=== PATIENT | female | born 1955 | race Caucasian/White ===

== ENCOUNTER 2016-10-18 14:01 | Outpatient (RCR) | payer MEDICAID ==
[2016-09-05 09:48] LABS: BASOPHILS # (AUTO) 0.1 10^3/uL (0.0-0.1); BASOPHILS % (AUTO) 2 % (0-10); EOSINOPHILS # (AUTO) 0.2 10^3/uL (0.0-0.3); EOSINOPHILS % (AUTO) 3 % (0-10); LYMPHOCYTES # (AUTO) 1.9 X 10^3 (1.0-4.0); LYMPHOCYTES % (AUTO) 26 % (12-44); MEAN CORPUSCULAR HEMOGLOBIN 29 PG (25-34); MEAN CORPUSCULAR HGB CONC 33 G/DL (32-36); MEAN CORPUSCULAR VOLUME 86 FL (80-99); MEAN PLATELET VOLUME 11.8 FL (7.4-10.4); MONOCYTES # (AUTO) 0.6 X 10^3 (0.0-1.0); MONOCYTES % (AUTO) 9 % (0-12); NEUTROPHILS # (AUTO) 4.5 X 10^3 (1.8-7.8); NEUTROPHILS % (AUTO) 61 % (42-75); PLATELET COUNT 248 10^3/uL (130-400); RED BLOOD COUNT 3.72 10^6/uL (4.35-5.85); RED CELL DISTRIBUTION WIDTH 14.2 % (10.0-14.5); WHITE BLOOD COUNT 7.4 10^3/uL (4.3-11.0)
[2016-09-05 10:14] LABS: ALBUMIN 3.9 G/DL (3.2-4.5); BILIRUBIN,TOTAL 0.2 MG/DL (0.1-1.0); CALCIUM 9.9 MG/DL (8.5-10.1); CREATININE SERUM 1.66 MG/DL (0.60-1.30); POTASSIUM 4.3 MMOL/L (3.6-5.0); TOTAL PROTEIN 7.1 G/DL (6.4-8.2)
[~2016-10-18 14:01] MED LIST: ALBU2.5V4 IH; AMLO5TAB2 PO; ASPI-587 PO; ATOR10TA66 PO; AZIT250T PO; CEFD300C3 PO; CHOL200014 PO; CIPR500T4 PO; FENO134C2 PO; FOLI0.4T2 PO; GABA-488 PO; HYDR-34 PO; HYDR12.570 PO; IBUP800T26 PO; INSU100I14 SQ; INSU100V5 SQ; LETR2.5T5 PO; LISI20TA PO; MAGN400T39 PO; MELO-198 PO; METF-380 PO; MTP25TSR PO; Omega 3 Polyunsat Fatty Acids PO; PNT40TEC PO; POTA-51 PO; TRAM50TA2 PO; Ticagrelor PO
[2016-10-18 15:24] LABS: BASOPHILS # (AUTO) 0.1 10^3/uL (0.0-0.1); BASOPHILS % (AUTO) 1 % (0-10); EOSINOPHILS # (AUTO) 0.2 10^3/uL (0.0-0.3); EOSINOPHILS % (AUTO) 3 % (0-10); LYMPHOCYTES # (AUTO) 1.4 X 10^3 (1.0-4.0); LYMPHOCYTES % (AUTO) 19 % (12-44); MEAN CORPUSCULAR HEMOGLOBIN 28 PG (25-34); MEAN CORPUSCULAR HGB CONC 32 G/DL (32-36); MEAN CORPUSCULAR VOLUME 87 FL (80-99); MEAN PLATELET VOLUME 11.5 FL (7.4-10.4); MONOCYTES # (AUTO) 0.5 X 10^3 (0.0-1.0); MONOCYTES % (AUTO) 6 % (0-12); NEUTROPHILS # (AUTO) 4.9 X 10^3 (1.8-7.8); NEUTROPHILS % (AUTO) 70 % (42-75); PLATELET COUNT 272 10^3/uL (130-400); RED BLOOD COUNT 3.83 10^6/uL (4.35-5.85); RED CELL DISTRIBUTION WIDTH 13.9 % (10.0-14.5)
[2016-10-18 16:35] LABS: ALBUMIN 3.9 G/DL (3.2-4.5); BILIRUBIN,TOTAL 0.2 MG/DL (0.1-1.0); CALCIUM 9.5 MG/DL (8.5-10.1); CREATININE SERUM 1.42 MG/DL (0.60-1.30); POTASSIUM 4.6 MMOL/L (3.6-5.0)
[2016-10-18 16:55] LABS: THYROID STIMULATING HORMONE 0.84 UIU/ML (0.35-4.94)
== END 2016-10-23 | disposition home or self-care (01) ==
LOC: ONC 14:01
PROVIDERS: ATTEND Internal Medicine Hematology & Oncology
DX: Z51.11 Encounter for antineoplastic chemotherapy (principal); C50.912 Malignant neoplasm of unspecified site of left female breast; I25.10 Atherosclerotic heart disease of native coronary artery without angina pectoris; D64.9 Anemia, unspecified; I10 Essential (primary) hypertension; E78.5 Hyperlipidemia, unspecified; E78.1 Pure hyperglyceridemia; E11.9 Type 2 diabetes mellitus without complications; I25.2 Old myocardial infarction; Z17.0 Estrogen receptor positive status [ER+]; Z90.12 Acquired absence of left breast and nipple; Z72.0 Tobacco use; Z79.4 Long term (current) use of insulin; Z79.899 Other long term (current) drug therapy; Z45.2 Encounter for adjustment and management of vascular access device
CPT/HCPCS: 36415; 36591; 80053; 82306; 84443; 85025; 86300; 96523; 99213

== ENCOUNTER → 2016-10-27 | Outpatient (CLI) | payer MEDICAID ==
--- NOTE | 2016-10-27 12:42 | Diagnostic Imaging Report ---
INDICATION: Lymphadenopathy, history of left mastectomy and breast cancer. FINDINGS: Neck: Noncontrast-enhanced soft tissue neck CT is performed. No priors. The parotid, the submandibular and thyroid appeared unremarkable. While sensitivity for demonstrating adenopathy is limited by the absence of contrast, no abnormal soft tissue along the cervical lymph node chains were found no pathologically numerous, morphologically distorted nor abnormally enlarged cervical lymph nodes found. There is no fluid collection. The nasopharynx, oropharynx and hypopharynx unremarkable. No airway embarrassment. There is vbns-qr-jzucmlyt calcified carotid atherosclerotic plaque. The skull base intact. There is slight membrane thickening in the right maxillary sinus floor. There are no mastoid effusions. Supraclavicular fossae appeared unremarkable. The posterior triangles unremarkable. Mild spondylosis and facet arthrosis chronic and degenerative. No suspicious or acute cervical bony abnormality. CT chest: The chest and abdominal portion of the study compared 04/13/2016. Left apical pleural-parenchymal scarring peripherally is a chronic finding. No acute infiltrate superimposed found. No suspicious nodule or dominant lung mass. There is no hilar or mediastinal lymphadenopathy. There is some mild thickening circumferentially and smoothly of the chen of the mid to distal third of the thoracic esophagus, chronic. No discrete mass. No pleural or pericardial effusion. No acute or destructive osseous pathology. A central venous catheter in the SVC. There is coronary arterial atherosclerotic disease chronic. There has been near complete resolution of lateral chest wall postoperative seroma now only less than 1 cm thick, previously greater than 2 cm thickness. Abdomen: The unopacified liver shows hepatic steatosis without appreciable mass. Gallbladder absent. No pathological bile duct dilatation. The unremarkable spleen is within normal limits of size. The adrenals negative. The pancreas unremarkable. There is no hydronephrosis. Infrarenal atherosclerotic aortic ectasia measuring 2.9 cm stable. No ascites. No lymphadenopathy. No mesenteric mass. The osseous structures nonacute. IMPRESSION: 1. Neck: No mass or pathological appearing lymph nodes. 2. Chest: Left apical pleural-parenchymal scarring with no adenopathy, mass, effusion or acute finding. 3. Abdomen: No adenopathy, mass, ascites or inflammatory process. Dictated by: Dictated on workstation # [id number]
--- NOTE | 2016-10-27 14:49 | Diagnostic Imaging Report ---
INDICATION: Breast cancer. COMPARISON: Bone scan of 04/13/[address] chest, abdomen, and pelvis of 10/27/2016. Tc-99m MDP 25.6 mCi IV. FINDINGS: The skeleton was imaged in anterior and posterior views with the moving gamma camera. There is normal distribution of tracer throughout the skeleton. No abnormal focal area of increased or decreased tracer accumulation is identified. Unchanged periarticular radiopharmaceutical uptake about the left knee, which is degenerative in nature. IMPRESSION: 1. No osseous metastasis. Dictated by: Dictated on workstation # [id number]
== END ==
LOC: CARD 09:12
PROVIDERS: ATTEND Nurse Practitioner Adult Health
DX: C50.112 Malignant neoplasm of central portion of left female breast (principal); R59.0 Localized enlarged lymph nodes
CPT/HCPCS: 70490; 71250; 74150; 78306

== ENCOUNTER 2017-02-15 08:58 | Outpatient (RCR) | payer MEDICAID ==
[2016-11-23 09:27] LABS: BASOPHILS # (AUTO) 0.1 10^3/uL (0.0-0.1); BASOPHILS % (AUTO) 1 % (0-10); EOSINOPHILS # (AUTO) 0.2 10^3/uL (0.0-0.3); EOSINOPHILS % (AUTO) 3 % (0-10); LYMPHOCYTES % (AUTO) 22 % (12-44); MEAN CORPUSCULAR HEMOGLOBIN 28 PG (25-34); MEAN CORPUSCULAR HGB CONC 33 G/DL (32-36); MEAN CORPUSCULAR VOLUME 85 FL (80-99); MEAN PLATELET VOLUME 11.9 FL (7.4-10.4); MONOCYTES # (AUTO) 0.8 X 10^3 (0.0-1.0); MONOCYTES % (AUTO) 8 % (0-12); NEUTROPHILS # (AUTO) 6.2 X 10^3 (1.8-7.8); NEUTROPHILS % (AUTO) 66 % (42-75); PLATELET COUNT 271 10^3/uL (130-400); RED BLOOD COUNT 4.07 10^6/uL (4.35-5.85); RED CELL DISTRIBUTION WIDTH 13.6 % (10.0-14.5); WHITE BLOOD COUNT 9.4 10^3/uL (4.3-11.0)
[2016-11-23 09:47] LABS: ALBUMIN 4.1 G/DL (3.2-4.5); BILIRUBIN,TOTAL 0.2 MG/DL (0.1-1.0); CALCIUM 9.8 MG/DL (8.5-10.1); CREATININE SERUM 1.74 MG/DL (0.60-1.30); POTASSIUM 4.5 MMOL/L (3.6-5.0); TOTAL PROTEIN 7.5 G/DL (6.4-8.2)
[2017-02-15 09:17] LABS: BASOPHILS # (AUTO) 0.1 10^3/uL (0.0-0.1); BASOPHILS % (AUTO) 1 % (0-10); EOSINOPHILS # (AUTO) 0.2 10^3/uL (0.0-0.3); EOSINOPHILS % (AUTO) 2 % (0-10); LYMPHOCYTES # (AUTO) 2.1 X 10^3 (1.0-4.0); LYMPHOCYTES % (AUTO) 24 % (12-44); MEAN CORPUSCULAR HEMOGLOBIN 28 PG (25-34); MEAN CORPUSCULAR HGB CONC 33 G/DL (32-36); MEAN CORPUSCULAR VOLUME 86 FL (80-99); MEAN PLATELET VOLUME 12.3 FL (7.4-10.4); MONOCYTES # (AUTO) 0.5 X 10^3 (0.0-1.0); MONOCYTES % (AUTO) 6 % (0-12); NEUTROPHILS # (AUTO) 5.6 X 10^3 (1.8-7.8); NEUTROPHILS % (AUTO) 66 % (42-75); PLATELET COUNT 300 10^3/uL (130-400); RED BLOOD COUNT 4.07 10^6/uL (4.35-5.85); WHITE BLOOD COUNT 8.5 10^3/uL (4.3-11.0)
[2017-02-15 09:38] LABS: ALBUMIN 4.1 G/DL (3.2-4.5); BILIRUBIN,TOTAL 0.3 MG/DL (0.1-1.0); CALCIUM 10.3 MG/DL (8.5-10.1); CREATININE SERUM 1.55 MG/DL (0.60-1.30); POTASSIUM 4.1 MMOL/L (3.6-5.0); TOTAL PROTEIN 7.5 G/DL (6.4-8.2)
== END 2017-02-21 | disposition home or self-care (01) ==
LOC: ONC 08:58
PROVIDERS: ATTEND Internal Medicine Hematology & Oncology
DX: C50.112 Malignant neoplasm of central portion of left female breast (principal); D64.9 Anemia, unspecified; E55.9 Vitamin D deficiency, unspecified; I25.10 Atherosclerotic heart disease of native coronary artery without angina pectoris; I10 Essential (primary) hypertension; E78.5 Hyperlipidemia, unspecified; E78.1 Pure hyperglyceridemia; E11.9 Type 2 diabetes mellitus without complications; I25.2 Old myocardial infarction; Z17.0 Estrogen receptor positive status [ER+]; Z90.12 Acquired absence of left breast and nipple; Z72.0 Tobacco use; Z79.4 Long term (current) use of insulin; Z79.899 Other long term (current) drug therapy
CPT/HCPCS: 36591; 80053; 82306; 85025; 96523; 99213

== ENCOUNTER → 2017-03-29 | Outpatient (CLI) | payer MEDICAID ==
--- NOTE | 2017-03-29 19:54 | Diagnostic Imaging Report ---
Right breast screening mammogram. INDICATION: Screening. No current symptoms. The patient has had left mastectomy in 2015. The current study was also evaluated with a Computer Aided Detection (CAD) system. FINDINGS: The right breast parenchyma is of scattered fibroglandular density composition. There is no focal mass, architectural distortion, or suspicious cluster of calcifications. Allowing for technique and positional differences, no suspicious change is seen. IMPRESSION: No significant change. ACR BI-RADS Category 2: Benign findings. Result letter will be mailed to the patient. Note: At least 10% of breast cancer is not imaged by mammography. Dictated by: Dictated on workstation # [id number]
== END ==
LOC: RAD 09:05
PROVIDERS: ATTEND Nurse Practitioner Adult Health
DX: Z12.31 Encounter for screening mammogram for malignant neoplasm of breast (principal); C50.112 Malignant neoplasm of central portion of left female breast

== ENCOUNTER 2017-05-17 10:56 | Outpatient (RCR) | payer MEDICAID ==
[2017-05-10 09:48] LABS: BASOPHILS # (AUTO) 0.1 10^3/uL (0.0-0.1); BASOPHILS % (AUTO) 2 % (0-10); EOSINOPHILS # (AUTO) 0.2 10^3/uL (0.0-0.3); EOSINOPHILS % (AUTO) 3 % (0-10); LYMPHOCYTES # (AUTO) 1.7 X 10^3 (1.0-4.0); LYMPHOCYTES % (AUTO) 23 % (12-44); MEAN CORPUSCULAR HEMOGLOBIN 28 PG (25-34); MEAN CORPUSCULAR HGB CONC 32 G/DL (32-36); MEAN CORPUSCULAR VOLUME 85 FL (80-99); MEAN PLATELET VOLUME 12.2 FL (7.4-10.4); MONOCYTES # (AUTO) 0.5 X 10^3 (0.0-1.0); MONOCYTES % (AUTO) 6 % (0-12); NEUTROPHILS # (AUTO) 4.8 X 10^3 (1.8-7.8); NEUTROPHILS % (AUTO) 66 % (42-75); PLATELET COUNT 258 10^3/uL (130-400); RED BLOOD COUNT 3.85 10^6/uL (4.35-5.85); RED CELL DISTRIBUTION WIDTH 14.8 % (10.0-14.5); WHITE BLOOD COUNT 7.3 10^3/uL (4.3-11.0)
[2017-05-10 10:26] LABS: ALBUMIN 3.8 GM/DL (3.2-4.5); BILIRUBIN,TOTAL 0.2 MG/DL (0.1-1.0); CALCIUM 10.1 MG/DL (8.5-10.1); CREATININE SERUM 1.44 MG/DL (0.60-1.30); POTASSIUM 4.6 MMOL/L (3.6-5.0); TOTAL PROTEIN 7.4 GM/DL (6.4-8.2)
== END 2017-05-23 | disposition home or self-care (01) ==
LOC: ONC 10:56
PROVIDERS: ATTEND Internal Medicine Hematology & Oncology
DX: C50.112 Malignant neoplasm of central portion of left female breast (principal); D64.9 Anemia, unspecified; E55.9 Vitamin D deficiency, unspecified; I25.10 Atherosclerotic heart disease of native coronary artery without angina pectoris; I10 Essential (primary) hypertension; E78.5 Hyperlipidemia, unspecified; E78.1 Pure hyperglyceridemia; E11.9 Type 2 diabetes mellitus without complications; I25.2 Old myocardial infarction; Z17.0 Estrogen receptor positive status [ER+]; Z90.12 Acquired absence of left breast and nipple; Z72.0 Tobacco use; Z79.4 Long term (current) use of insulin; Z79.899 Other long term (current) drug therapy
CPT/HCPCS: 80053; 82306; 85025; 96523; 99213

== ENCOUNTER 2017-06-21 09:19 | Outpatient (RCR) | payer MEDICAID | END 2017-07-21 | disposition home or self-care (01) | LOC: ONC 09:19 | PROVIDERS: ATTEND Internal Medicine Hematology & Oncology | DX: C50.112 Malignant neoplasm of central portion of left female breast (principal); D64.9 Anemia, unspecified; E55.9 Vitamin D deficiency, unspecified; I25.10 Atherosclerotic heart disease of native coronary artery without angina pectoris; I10 Essential (primary) hypertension; E78.5 Hyperlipidemia, unspecified; E78.1 Pure hyperglyceridemia; E11.9 Type 2 diabetes mellitus without complications; I25.2 Old myocardial infarction; Z17.0 Estrogen receptor positive status [ER+]; Z90.12 Acquired absence of left breast and nipple; Z72.0 Tobacco use; Z79.4 Long term (current) use of insulin; Z79.899 Other long term (current) drug therapy; Z45.2 Encounter for adjustment and management of vascular access device | CPT/HCPCS: 96523 ==

== ENCOUNTER → 2017-08-02 | Outpatient (CLI) | payer MEDICAID ==
[2017-08-02 09:35] LABS: ALBUMIN 3.9 GM/DL (3.2-4.5); BILIRUBIN,DIRECT 0.1 MG/DL (0.0-0.3); BILIRUBIN,INDIRECT 0.1 MG/DL; BILIRUBIN,TOTAL 0.2 MG/DL (0.1-1.0); TOTAL PROTEIN 7.5 GM/DL (6.4-8.2)
== END ==
LOC: LAB 09:00
PROVIDERS: ATTEND Internal Medicine Cardiovascular Disease
DX: I25.10 Atherosclerotic heart disease of native coronary artery without angina pectoris (principal); E78.2 Mixed hyperlipidemia; I12.9 Hypertensive chronic kidney disease with stage 1 through stage 4 chronic kidney disease, or unspecified chronic kidney disease; N18.3 Chronic kidney disease, stage 3 (moderate)
CPT/HCPCS: 36415; 80061; 80076

== ENCOUNTER 2017-09-03 17:01 | Emergency (ER) | payer MEDICAID ==
[~2017-09-03] VITALS: Ht 172.7 cm; Wt 97.1 kg
[2017-09-03 17:57] LABS: BASOPHILS # (AUTO) 0.1 10^3/uL (0.0-0.1); BASOPHILS % (AUTO) 1 % (0-10); EOSINOPHILS # (AUTO) 0.1 10^3/uL (0.0-0.3); EOSINOPHILS % (AUTO) 1 % (0-10); LYMPHOCYTES # (AUTO) 1.1 X 10^3 (1.0-4.0); LYMPHOCYTES % (AUTO) 12 % (12-44); MEAN CORPUSCULAR HEMOGLOBIN 28 PG (25-34); MEAN CORPUSCULAR HGB CONC 33 G/DL (32-36); MEAN CORPUSCULAR VOLUME 85 FL (80-99); MEAN PLATELET VOLUME 12.6 FL (7.4-10.4); MONOCYTES # (AUTO) 0.4 X 10^3 (0.0-1.0); MONOCYTES % (AUTO) 4 % (0-12); NEUTROPHILS # (AUTO) 7.4 X 10^3 (1.8-7.8); NEUTROPHILS % (AUTO) 82 % (42-75); PLATELET COUNT 273 10^3/uL (130-400); RED BLOOD COUNT 4.06 10^6/uL (4.35-5.85); WHITE BLOOD COUNT 9.1 10^3/uL (4.3-11.0)
[2017-09-03] MEDS ORDERED: SCOPOLAMINE 1.5 MG (TRANSDERM-SCOP) PATCH TD ONE (18:00)
[2017-09-03 18:01] LABS: PROTHROMBIN TIME PATIENT 12.9 SEC (12.2-14.7)
--- NOTE | 2017-09-03 18:04 | ED General ---
General Chief Complaint: Dizziness/Syncope Stated Complaint: DIZZINESS Nursing Triage Note: Pt reports dizziness that started last week. Pt reports dizziness improved over the weekend but started again this morning. Pt reports dizziness is worse when standing up and moving around. Nursing Sepsis Screen: No Definite Risk Source of Information: Patient History of Present Illness Time Seen by Provider: 17:50 Initial Comments PT ARRIVES VIA POV FROM HOME C/O DIZZINESS OFF AND ON SINCE LAST WEEK WAS BETTER OVER THE WEEKEND, THEN WOKE UP AT [facility] TODAY AND WAS DIZZY AGAIN STATES SHE WAS IN KITCHEN AND SUDDENLY BROKE OUT IN A SWEAT, FELT LIKE SHE WAS GOING TO COLLAPSE AND WAS DIZZY AND REALLY SHAKEY--WAS ABLE TO GET BACK TO BED ( USES A SEATED WALKER ) AND HAS BEEN IN BED FOR THE REST OF THE DAY SYMPTOMS WORSE WITH MOVEMENTS NO NAUSEA HAS HAD SLIGHTLY BLURRY VISION WITH IT--"COULDN'T PLAY COMPUTER GAMES TODAY LIKE I NORMALLY DO" NO CHEST PAIN NO SHORTNESS OF BREATH NO PALPITATIONS NO FEVER NO COUGH/URI SYMPTOMS NO URINARY SYMPTOMS NO PAIN ANYWHERE HAD A SLIGHT HEADACHE THAT MOVED AROUND LAST WEEK--THOSE SYMPTOMS RESOLVED WITH OTC SINUS MEDICATIONS AND HAVE NOT RETURNED NO PARESTHESIAS OR MOTOR DEFICITS--( PT DOES HAVE PERIPHERAL NEUROPATHY IN FEET , BUT IS UNCHANGED) NO HISTORY OF SIMILAR PT STATES BLOOD GLUCOSE WAS 159 AT NOON PT ATE [facility] AND [employer] AND [employer] FOR LUNCH HAS NOT CHECKED BLOOD SUGAR AGAIN PCP: TAMICA, SHILPA FUENTES BOW MACHINE OPERATOR: DR. EMMANUEL ONCOLOGIST: DR. TANG Allergies and Home Medications Allergies Coded Allergies: codeine (Unverified Allergy, Unknown, 09/03/17) Home Medications Amlodipine Besylate 5 Mg Tablet, 5 MG PO DAILY, (Reported) Atorvastatin Calcium 10 Mg Tablet, 10 MG PO DAILY, (Reported) Cholecalciferol (Vitamin D3) 2,000 Unit Tablet, 2,000 UNIT PO DAILY, (Reported) Fenofibrate,Micronized 134 Mg Capsule, 134 MG PO HS, #30 Ref 4 Prescribed by: NEEMA EMMANUEL on 05/10/15 0849 Folic Acid 0.4 Mg Tablet, 0.4 MG PO DAILY, (Reported) Gabapentin 300 Mg Capsule, 300 MG PO BID, (Reported) Hydrochlorothiazide 12.5 Mg Cap, 25 MG PO DAILY, (Reported) Insulin Aspart 100 Unit/1 Ml Insuln.pen, 0 SQ AC, (Reported) PER SLIDING SCALE "B" Insulin Detemir 100 U/Ml Vial, 23 UNITS SQ BID, (Reported) Letrozole 2.5 Mg Tablet, 2.5 MG PO DAILY, (Reported) Lisinopril 20 Mg Tablet, 40 MG PO DAILY, (Reported) Magnesium Oxide 400 Mg Tablet, 400 MG PO BID, (Reported) Meclizine HCl 25 Mg Tablet, 25-50 MG PO Q6H, #30 Prescribed by: OSMAN LINK on 09/03/172105 Metoprolol Succinate 25 Mg Tab, 25 MG PO DAILY, #30 Ref 4 Prescribed by: NEEMA EMMANUEL on 05/10/15 0849 Pantoprazole Sod 40 Mg Tab, 40 MG PO DAILY@0700, #30 Ref 4 Prescribed by: NEEMA EMMANUEL on 05/10/15 0849 Scopolamine 1 Each Patch.td72, 1 EACH TD Q72 HOURS, #3 Prescribed by: OSMAN LINK on 09/03/172105 Tramadol HCl 50 Mg Tablet, 50 MG PO BID, (Reported) [[place] 3 Polyunsat Fatty Acids] 1,000 MG CAP, 1,000 MG PO BID WITH MEALS, #100 Ref 4 Prescribed by: NEEMA EMMANUEL on 05/10/15 0849 Constitutional: see HPI, diaphoresis, dizziness, No fever, weakness EENTM: see HPI, blurred vision, No hearing loss, No ear pain, No nose congestion Respiratory: no symptoms reported Cardiovascular: no symptoms reported Gastrointestinal: no symptoms reported Genitourinary: no symptoms reported Musculoskeletal: no symptoms reported Skin: no symptoms reported Psychiatric/Neurological: See HPI, Denies Headache, Pre-Existing Deficit, Denies Seizure, Denies Weakness Hematologic/Lymphatic: No Symptoms Reported Immunological/Allergic: no symptoms reported Past Xxepbon-Jktkeq-Yfilsz Hx Patient Social History Alcohol Use: Denies Use Recreational Drug Use: No Smoking Status: Former Smoker Former Smoker, Quit: Feb 01, 2015 Recent Foreign Travel: No Contact w/Someone Who Travel: No Recent Infectious Disease Expo: No Recent Hopitalizations: No Immunizations Up To Date Tetanus Booster (TDap): More than 5yrs Seasonal Allergies Seasonal Allergies: No Surgeries History of Surgeries: Yes (LEFT BREAST MASTECTOMY, 6 LYMPH NODE REMOVED;BILAT CARPAL TUNNEL RELEASE; L ULNAR NERVE; PORT RIGHT CHEST; CARDIAC CATH--STENT X 1 04/2015; COLONOSCOPY) Surgeries: Breast, Cardiac, Coronary Stent, Gallbladder, Orthopedic, Tubal Ligation Respiratory History of Respiratory Disorde: No Cardiovascular History of Cardiac Disorders: Yes (NONSTEMI) Cardiac Disorders: Coronary Artery Disease, Heart Attack, High Cholesterol, Hypertension Neurological History of Neurological Disord: Yes (PERIPHERAL NEUROPATHY-FEET) Neurological Disorders: Neuropathy Reproductive System Hx Reproductive Disorders: No Sexually Transmitted Disease: No HIV/AIDS: No Female Reproductive Disorders: Denies Genitourinary History of Genitourinary Disor: Yes (CHRONIC RENAL INSUFFICIENCY) Genitourinary Disorders: Bladder Infection, Kidney Stones, Renal Failure Gastrointestinal History of Gastrointestinal Di: Yes (S/P JENNIFER) Gastrointestinal Disorders: Gall Bladder Disease Musculoskeletal History of Musculoskeletal Dis: Yes Musculoskeletal Disorders: Arthritis, Chronic Back Pain Endocrine History of Endocrine Disorders: Yes Endocrine Disorders: Diabetes, Insulin dep HEENT History of HEENT Disorders: No Loss of Vision: Bilateral Hearing Impairment: Denies Cancer History of Cancer: Yes (LEFT BREAST CA, LYMPH NODES) Cancer: Breast Did You Recieve Any Treatments: Yes (LEFT MASTECTOMY WITH LYMPH NODE REMOVAL; CHEMO AND RADIATION--DX 2014, TX COMPLETED 2015) Type of Tx Receive: Chemotherapy, Radiation, Surgical Intervention Psychosocial History of Psychiatric Problem: No Integumentary History of Skin or Integumenta: No Blood Transfusions History of Blood Disorders: Yes (ANEMIA) Adverse Reaction to a Blood Tr: No (N/A) Family Medical History Significant Family History: No Pertinent Family Hx Family Medial History: Asthma G8 SISTER Cardiovascular disease 19 FATHER Diabetes mellitus G8 SISTER FH: breast cancer SISTER FH: leukemia 19 MOTHER, , Age:52 Psychosocial problem G8 SISTER No Family History of: AIDS Abdominal aortic aneurysm Osorio's disease Alcoholism Alzheimer's disease Arthritis Cancer of mouth Colon cancer Completed stroke Dementia Drug abuse Kidney disease Myocardial infarction Parkinson's disease Prostate cancer Respiratory disorder Seizure disorder Severe allergy Thyroid disease Tuberculosis Physical Exam Vital Signs Vital Sign - Last 12Hours 09/03/17 17:15 Pulse 97 Resp 18 B/P (MAP) 140/63 Pulse Ox 97 O2 Delivery Room Air Capillary Refill : Less Than 3 Seconds General Appearance: No Apparent Distress, WD/WN, Obese HEENT: PERRL/EOMI Neck: Full Range of Motion, Normal Inspection, Non Tender, Supple, No Carotid Bruit Respiratory: Normal Breath Sounds, No Accessory Muscle Use, No Respiratory Distress Cardiovascular: Regular Rate, Rhythm, No Edema, No JVD, No Murmur, Normal Peripheral Pulses Gastrointestinal: Normal Bowel Sounds, No Organomegaly, No Pulsatile Mass, Non Tender, Soft Extremity: Normal Capillary Refill, Normal Inspection, Normal Range of Motion, Non Tender, No Calf Tenderness, No Pedal Edema Neurologic/Psychiatric: Alert, Oriented x3, No Motor/Sensory Deficits, Normal Mood/Affect, car scrubber II-XII Norm as Tested Reflexes: 2+ Bicep (R), 2+ Bicep (L), 2+ Knee (R), 2+ Knee (L) Skin: Normal Color, Warm/Dry Progress/Results/Core Measures Results/Orders Lab Results Laboratory Tests Test 09/03/17 17:30 09/03/17 17:45 09/03/17 18:15 09/03/17 20:57 Range/Units White Blood Count 9.1 4.3-11.0 10^3/uL Red Blood Count 4.06 L 4.35-5.85 10^6/uL Hemoglobin 11.5 11.5-16.0 G/DL Hematocrit 35 35-52 % Mean Corpuscular Volume 85 80-99 FL Mean Corpuscular Hemoglobin 28 25-34 PG Mean Corpuscular Hemoglobin Concent 33 32-36 G/DL Red Cell Distribution Width 14.0 10.0-14.5 % Platelet Count 273 130-400 10^3/uL Mean Platelet Volume 12.6 H 7.4-10.4 FL Neutrophils (%) (Auto) 82 H 42-75 % Lymphocytes (%) (Auto) 12 12-44 % Monocytes (%) (Auto) 4 0-12 % Eosinophils (%) (Auto) 1 0-10 % Basophils (%) (Auto) 1 0-10 % Neutrophils # (Auto) 7.4 1.8-7.8 X 10^3 Lymphocytes # (Auto) 1.1 1.0-4.0 X 10^3 Monocytes # (Auto) 0.4 0.0-1.0 X 10^3 Eosinophils # (Auto) 0.1 0.0-0.3 10^3/uL Basophils # (Auto) 0.1 0.0-0.1 10^3/uL Prothrombin Time 12.9 12.2-14.7 SEC INR Comment 1.0 0.8-1.4 Activated Partial Thromboplast Time 24 24-35 SEC Sodium Level 133 L 135-145 MMOL/L Potassium Level 4.6 3.6-5.0 MMOL/L Chloride Level 104 98-107 MMOL/L Carbon Dioxide Level 20 L 21-32 MMOL/L Anion Gap 9 5-14 MMOL/L Blood Urea Nitrogen 27 H 7-18 MG/DL Creatinine 1.49 H 0.60-1.30 MG/DL Estimat Glomerular Filtration Rate 35 BUN/Creatinine Ratio 18 Glucose Level 305 H 70-105 MG/DL Calcium Level 9.8 8.5-10.1 MG/DL Magnesium Level 1.2 L 1.8-2.4 MG/DL Total Bilirubin 0.2 0.1-1.0 MG/DL Aspartate Amino Transf (AST/SGOT) 20 5-34 U/L Alanine Aminotransferase (ALT/SGPT) 20 0-55 U/L Alkaline Phosphatase 40 40-136 U/L Total Protein 7.4 6.4-8.2 GM/DL Albumin 4.0 3.2-4.5 GM/DL Troponin I < 0.30 <0.30 NG/ML Urine Color YELLOW Urine Clarity CLEAR Urine pH 6.5 5-9 Urine Specific [place] 1.010 L 1.016-1.022 Urine Protein NEGATIVE NEGATIVE Urine Glucose (UA) 4+ H NEGATIVE Urine Ketones NEGATIVE NEGATIVE Urine Nitrite NEGATIVE NEGATIVE Urine Bilirubin NEGATIVE NEGATIVE Urine Urobilinogen NORMAL NORMAL MG/DL Urine Leukocyte Esterase 1+ H NEGATIVE Urine RBC (Auto) NEGATIVE NEGATIVE Urine RBC NONE /HPF Urine WBC NONE /HPF Urine Squamous Epithelial Cells 0-2 /HPF Urine Crystals NONE /LPF Urine Bacteria 0-2 /HPF Urine Casts NONE /LPF Urine Mucus NEGATIVE /LPF Urine Culture Indicated NO Glucometer 183 H 70-110 MG/DL My Orders Orders - FARIBA,OSMAN K DO Saline Lock/Iv-Start (09/03/17 17:49) Orthostatic Vital Signs (09/03/17 17:49) Ekg Tracing (09/03/17 17:49) Monitor-Rhythm Ecg Trace Only (09/03/17 17:49) Cbc With Automated Diff (09/03/17 17:49) Comprehensive Metabolic Panel (09/03/17 17:49) Magnesium (09/03/17 17:49) Protime With Inr (09/03/17 17:49) Partial Thromboplastin Time (09/03/17 17:49) Ua Culture If Indicated (09/03/17 17:49) Ct Head Wo (09/03/17 17:49) Scopolamine Patch (Transderm-Scop Patch) (09/03/17 18:00) Troponin I (09/03/17 17:58) Saline Lock/Iv-Start (09/03/17 18:11) Ns Iv 1000 Ml (Sodium Chloride 0.9%) (09/03/17 18:11) Insulin (Regular) Human (Humulin R (Per (09/03/17 18:15) Magnesium 1 Gm/100 Ml Ivpb (Magnesium Rgossman (09/03/17 18:15) Accucheck Stat ONCE (09/03/17 19:11) Medications Given in ED Current Medications Medications Dose Ordered Sig/Josefina Route Start Time Stop Time Status Last Admin Dose Admin Insulin Human Regular 20 unit ONCE ONCE SC 09/03/17 18:15 09/03/17 18:16 DC 09/03/17 18:56 20 UNIT Scopolamine 1.5 mg ONCE ONCE TD 09/03/17 18:00 09/03/17 18:01 DC 09/03/17 18:55 1.5 MG Sodium Chloride 1,000 ml @ 0 mls/hr Q0M ONCE IV 09/03/17 18:11 09/03/17 18:12 DC 09/03/17 18:55 0 MLS/HR Vital Signs/I&O Vital Sign - Last 12Hours 09/03/17 09/03/17 17:15 21:18 Pulse 97 97 Resp 18 18 B/P (MAP) 140/63 Pulse Ox 97 97 O2 Delivery Room Air Blood Pressure Mean: 88 Progress Note : Progress Note ACCUCHECK 183 PRIOR TO DISMISSAL DIZZINESS IMPROVED AT DISMISSAL,PT FEELS COMFORTABLE GOING HOME ECG Initial ECG Impression Time: 19:35 Initial ECG Rate: 63 Initial ECG Rhythm: Normal Sinus Initial ECG Comparisson: No Previous ECG Available Diagnostic Imaging Comments CT HEAD--NO ACUTE PROCESS, CHRONIC SMALL VESSEL ISCHEMIC CHANGES--PER RADIOLOGIST REPORT @ 0254 Reviewed: Reviewed by Me Departure Impression Impression: Primary Impression: Vertigo Additional Impressions: Uncontrolled diabetes mellitus Hypomagnesemia Chronic renal insufficiency MILD ELECTROLYTE IMBALANCE Disposition: 01 HOME, SELF-CARE Condition: Improved Departure-Patient Inst. Referrals: JUAN BELLA DO (PCP) Primary Care Physician ENRRIQUE FUENTES (Family) Primary Care Physician Patient Instructions: DIABETES, Low Carbohydrate Diet, Low Magnesium Level (DC) , Vertigo (a Type of Dizziness) (DC) Add. Discharge Instructions: DOUBLE YOUR DOSE OF MAGNESIUM CHECK YOUR BLOOD GLUCOSE 3 TIMES A DAY AND KEEP DIARY HIGH PROTEIN, LOW CARB DIET FOLLOW UP WITH YOUR DR THIS WEEK FOR FURTHER CARE All discharge instructions reviewed with patient and/or family. Voiced understanding. Scripts Meclizine HCl (Meclizine HCl) 25 Mg Tablet 25-50 MG PO Q6H for Dizziness, #30 TAB Prov: OSMAN LINK DO 09/03/17 Scopolamine (Transderm-Scop) 1 Each Patch.td72 1 EACH TD Q72 HOURS for Dizziness, #3 PATCH Prov: OSMAN LINK DO 09/03/17 OSMAN LINK DO Sep 03, 2017 18:04
[2017-09-03 18:08] LABS: BILIRUBIN,TOTAL 0.2 MG/DL (0.1-1.0); CALCIUM 9.8 MG/DL (8.5-10.1); CREATININE SERUM 1.49 MG/DL (0.60-1.30); MAGNESIUM 1.2 MG/DL (1.8-2.4); POTASSIUM 4.6 MMOL/L (3.6-5.0); TOTAL PROTEIN 7.4 GM/DL (6.4-8.2)
[2017-09-03] MEDS ORDERED: NS IV 1000 ML 1,000 ML IV ONE (18:11)
--- OUTSIDE RECORDS SUMMARY | 2017-09-03 18:14 | XMS REPORT ---
Author Author ENRRIQUE FUENTES Organization [employer] Address Unknown Phone Unavailable Care Team Providers Care Juvenile Officer Name Role Phone ENRRIQUE FUENTES CP Unavailable Allergies No Known Allergies Problems Problem Type Condition Code Onset Dates Condition Status Problem Hypertension 401.9 Active Problem DM w/o complication type II, uncontrolled 250.02 Active Medications Medication Code System Code Instructions Start Date End Date Status Dosage Tramadol HCl [facility] [address]-05 50 MG Orally 2 times a day prn Jul 21, 2015 1 tablet as needed Results No Known Results Summary Purpose [employer] Submission
--- OUTSIDE RECORDS SUMMARY | 2017-09-03 18:14 | XMS REPORT ---
Author Author SONDRA RIVERA [employer] Address Unknown Phone Unavailable Care Team Providers Care Custom Shoe Designer And Maker Name Role Phone SONDRA RIVERA CP Unavailable Allergies, Adverse Reactions, Alerts Substance Reaction Event Type N.K.D.A. Info Not Available Non Drug Allergy Problems Problem Type Condition Code Onset Dates Condition Status Problem Hyperkalemia E87.5 Active Assessment Dental examination Z01.20 Active Problem Type 2 diabetes mellitus with hyperglycemia E11.65 Active Problem custodial current use of insulin Z79.4 Active Problem Dental caries on smooth surface penetrating into pulp K02.63 Active Problem Neuropathy G62.9 Active Problem Chronic kidney disease, stage 4 (severe) N18.4 Active Problem Essential hypertension I10 Active Problem Malignant neoplasm of upper-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 C50.412 Active Medications Medication Code System Code Instructions Start Date End Date Status Dosage Folic Acid [facility] [address]-80 400 MCG Orally Once a day 1 tablet Ondansetron HCl [facility] [address]-98 8 MG Orally every 8 hrs 1 tablet Fish Oil [facility] [address]-75 1000 MG Orally Twice a day 1 capsule Magnesium Oxide [facility] [address]-70 400 MG Orally 2 times a day 1 capsule Tramadol HCl [facility] [address]-84 50 mg Orally 2 times a day prn must last 4 weeks- Jul 21, 2015 1 tablet as needed NovoLog Flexpen [facility] [address]-45 100 UNIT/ML Subcutaneous 3 times daily with meals, per sliding scale as directed Meloxicam [facility] 83892875419 7.5 MG TAKE ONE TABLET BY MOUTH ONCE DAILY Vitamin D3 [facility] [address]-34 2000 UNIT Orally not defined Brilinta [facility] 13203872188 90 MG TAKE ONE TABLET BY MOUTH TWICE DAILY Atorvastatin Calcium [facility] [address]-64 10 MG Orally Once a day 1 tablet Pantoprazole Sodium [facility] 38169408339 40 MG TAKE ONE TABLET BY MOUTH ONCE DAILY - [facility] [address]-11 81 MG Orally Once a day 1 tablet Ticagrelor [facility] [address]-07 90 MG Orally Twice a day 1 tablet Lisinopril [facility] [address]-74 40 MG Orally Once a day 1 tablet Amlodipine Besylate [facility] [address]-13 5 MG Orally Once a day 1 tablet Lofibra [facility] 66954553560 134 MG TAKE ONE CAPSULE BY MOUTH ONCE DAILY WITH A MEAL Levemir FlexTouch [facility] [address]-83 100 UNIT/ML Subcutaneous twice a day 14 units Letrozole [facility] [address]-56 2.5 MG Orally Once a day 1 tablet NovoLog Flexpen [facility] [address]-12 100 UNIT/ML Subcutaneous 3 times daily with meals, per sliding scale as directed Ibuprofen [facility] [address]-92 200 MG Orally every 6 hrs 1 tablet as needed Hydrochlorothiazide [facility] [address]-66 25 MG Orally Once a day 1 tablet Gabapentin [facility] [address]-88 300 MG Orally 2 times a day 1 capsule Metoprolol Succinate ER [facility] [address]-76 25 MG TAKE ONE TABLET BY MOUTH ONCE DAILY Norvasc [facility] [address]-63 not defined Clindamycin HCl [facility] [address]-66 300 MG Orally every 8 hrs March 18, 2016 March 25, 2016 1 capsule Procedures Procedure Coding System Code Date INTRAORL-PERIAPICAL 1 FILM 17844 CPT-4 D0220 March 21, 2016 INTRAORL-PERIAPICAL EA ADD FILM CPT-4 D0230 March 21, 2016 LTD ORAL EVALUATION - PROBLEM FOCUS CPT-4 D0140 March 21, 2016 PANORAMIC FILM SEE ALSO CODE 21796 CPT-4 D0330 March 21, 2016 Vital Signs Date/Time: March 21, 2016 Blood Pressure Diastolic 84 mmHg Blood Pressure Systolic 163 mmHg Results No Known Results Summary Purpose [employer] Submission
--- OUTSIDE RECORDS SUMMARY | 2017-09-03 18:14 | XMS REPORT ---
Author Author ENRRIQUE FUENTES [facility] [employer] Address Unknown Phone Unavailable Care Team Providers Care Wire Wheeler Name Role Phone ENRRIQUE FUENTES CP Unavailable Allergies No Known Allergies Problems Problem Type Condition Code Onset Dates Condition Status Problem Type 2 diabetes mellitus with hyperglycemia E11.65 Active Problem medical terminologist current use of insulin Z79.4 Active Problem Dental caries on smooth surface penetrating into pulp K02.63 Active Problem Neuropathy G62.9 Active Assessment Hyperkalemia E87.5 Active Problem Essential hypertension I10 Active Problem Malignant neoplasm of upper-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 C50.412 Active Medications Medication Code System Code Instructions Start Date End Date Status Dosage Lasix [facility] [address]-48 40 mg Orally Today and Tomorrow February 23, 2016 1 tablet Results No Known Results Summary Purpose [employer] Submission
[2017-09-03] MEDS ORDERED: inSUlin (REGULAR) HUMAN 1 UNIT/0.01 ML (CHARGE PER UNIT) SC ONE (18:15)
[2017-09-03] MEDS ORDERED: MAGNESIUM 1 GM/100 ML IVPB 100 ML IV SCH (18:15)
--- OUTSIDE RECORDS SUMMARY | 2017-09-03 18:15 | XMS REPORT ---
Author Author ENRRIQUE FUENTES [facility] eClinicalWorks Address Unknown Phone Unavailable Care Team Providers Care Welding Foreman Name Role Phone ENRRIQUE FUENTES CP Unavailable Allergies, Adverse Reactions, Alerts Substance Reaction Event Type N.K.D.A. Info Not Available Non Drug Allergy Problems Problem Type Condition Code Onset Dates Condition Status Assessment Type 2 diabetes mellitus with hyperglycemia E11.65 Active Problem Chronic kidney disease, stage 4 (severe) N18.4 Active Problem Hyperkalemia E87.5 Active Problem Dental caries on smooth surface penetrating into pulp K02.63 Active Problem Type 2 diabetes mellitus with hyperglycemia E11.65 Active Problem Foot ulcer, left, limited to breakdown of skin L97.521 Active Problem Malignant neoplasm of upper-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 C50.412 Active Problem Neuropathy G62.9 Active Problem medical social worker current use of insulin Z79.4 Active Problem Essential hypertension I10 Active Assessment Neuropathy G62.9 Active Assessment Essential hypertension I10 Active Assessment medical social worker current use of insulin Z79.4 Active Assessment Malignant neoplasm of upper-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 C50.412 Active Assessment Chronic kidney disease, stage 4 (severe) N18.4 Active Medications Medication Code System Code Instructions Start Date End Date Status Dosage Pantoprazole Sodium [facility] 24021903255 40 MG TAKE ONE TABLET BY MOUTH ONCE DAILY Tramadol HCl [facility] [address]-08 50 mg Orally 2 times a day prn must last 4 weeks- APPT NEEDED FOR FUTHER REFILLS Jul 21, 2015 1 tablet as needed FreeStyle Lite Test [facility] 24639257541 - TEST BLOOD SUGAR FOUR TIMES A DAY BEFORE MEALS AND AT BEDTIME Levemir FlexTouch [facility] [address]-53 100 UNIT/ML Subcutaneous twice a day 23 units Folic Acid [facility] [address]-32 400 MCG Orally Once a day 1 tablet Fish Oil [facility] [address]-86 1000 MG Orally Twice a day 1 capsule Amlodipine Besylate [facility] [address]-56 5 MG Orally Once a day 1 tablet Acetaminophen [facility] [address]-54 500 MG Orally every 6 hrs 2 capsules as needed Gabapentin [facility] [address]-35 300 MG TAKE ONE CAPSULE BY MOUTH TWICE DAILY Magnesium Oxide [facility] [address]-46 400 MG Orally 2 times a day 1 capsule Lisinopril [facility] 74905950913 40 MG TAKE ONE TABLET BY MOUTH ONCE DAILY Aspir-81 [facility] [address]-39 81 MG Orally Once a day 1 tablet Vitamin D3 [facility] [address]-22 2000 UNIT Orally not defined Atorvastatin Calcium [facility] [address]-65 10 MG Orally Once a day 1 tablet Metoprolol Succinate ER [facility] [address]-93 25 MG TAKE ONE TABLET BY MOUTH ONCE DAILY Clickfine Pen [place] [facility] 23386935729 31 gauge USE WITH LEVEMIR Norvasc [facility] [address]-03 5 MG Orally Once a day 1 tablet NovoLog Flexpen [facility] [address]-22 100 UNIT/ML Subcutaneous 3 times daily with meals, per sliding scale as directed Letrozole [facility] [address]-22 2.5 MG Orally Once a day 1 tablet Hydrochlorothiazide [facility] 86611937083 25 MG TAKE ONE TABLET BY MOUTH ONCE DAILY Lofibra [facility] 69584231868 134 MG TAKE ONE CAPSULE BY MOUTH ONCE DAILY WITH A MEAL Pen [place] 1/2" [facility] [address]-49 29G X 12MM subcutaneously 5 times per day as directed Procedures Procedure Coding System Code Date Office Visit, Est Pt., Level 4 CPT-4 99352 Aug 03, 2016 GLYCATED HEMOGLOBIN TEST CPT-4 34555 Aug 03, 2016 MICROALBUMIN, SEMIQUANT CPT-4 67283 Aug 03, 2016 Vital Signs Date/Time: Aug 03, 2016 Cardiac Monitoring Heart Rate 70 bpm Weight 212 lbs Height 68 in BMI 32.23 Index Blood Pressure Diastolic 60 mmHg Blood Pressure Systolic 100 mmHg Results Name Result Date Reference Range Unit Abnormality Flag MICROALBUMIN, URINE (IN HOUSE) ----A:C (IN HOUSE) <30 [id number] ----CRE 200 [id number] ----ALB 30 [id number] ----Color dark yellow [id number] ----MICROALBUMIN normal 20160803 ----Lot # [id number] ----Exp date [id number] ----Clarity clear [id number] A1C (IN HOUSE) ----Exp date [id number] ----Previous A1c 7.5 20160807 ----Lot [id number] ----A1C IN HOUSE 8.7 [id number] 4.3 - 5.6 % Summary Purpose eClinicalWorks Submission
--- OUTSIDE RECORDS SUMMARY | 2017-09-03 18:15 | XMS REPORT ---
Author Author ENRRIQUE FUENTES Organization eClinicalWorks Address Unknown Phone Unavailable Care Team Providers Care Secondary Art Teacher Name Role Phone ENRRIQUE FUENTES CP Unavailable Allergies No Known Allergies Problems Problem Type Condition Code Onset Dates Condition Status Assessment Chronic kidney disease, stage 4 (severe) N18.4 Active Problem Chronic kidney disease, stage 4 (severe) N18.4 Active Problem Hyperkalemia E87.5 Active Problem Dental caries on smooth surface penetrating into pulp K02.63 Active Problem Type 2 diabetes mellitus with hyperglycemia E11.65 Active Problem Foot ulcer, left, limited to breakdown of skin L97.521 Active Problem Malignant neoplasm of upper-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 C50.412 Active Problem Neuropathy G62.9 Active Problem residential current use of insulin Z79.4 Active Problem Essential hypertension I10 Active Medications No Known Medications Results No Known Results Summary Purpose eClinicalWorks Submission
--- OUTSIDE RECORDS SUMMARY | 2017-09-03 18:15 | XMS REPORT ---
Author Author ENRRIQUE FUENTES [facility] Address [address] [place] [address] Care Team Providers Care Sanitation Truck Cleaner Name Role Phone ENRRIQUE FUENTES Unavailable PROBLEMS Type Condition ICD9-CM Code [id number] Code Onset Dates Condition Status SNOMED Code Problem Malignant neoplasm of upper-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 C50.412 Active 822327853 Problem Foot ulcer, left, limited to breakdown of skin L97.521 Active 18858926 Problem Dental caries on smooth surface penetrating into pulp K02.63 Active 182431490 Problem 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 Active 367043743 Problem Arthritis of right hip M16.11 Active 4993599304437004 Problem Hyperlipidemia LDL goal <70 E78.5 Active 05895591 Problem Chronic pain syndrome G89.4 Active 386011299 Problem Pain in right knee M25.561 Active 06042547 Problem GERD without esophagitis K21.9 Active 945362951 Problem Essential hypertension I10 Active 01022921 Problem Neuropathy G62.9 Active 991172865 Problem Hyperkalemia E87.5 Active 07994983 Problem halfway current use of insulin Z79.4 Active 306722206 Problem Chronic kidney disease, stage 4 (severe) N18.4 Active 516790234 Problem Type 2 diabetes mellitus with hyperglycemia E11.65 Active 551959385435690 ALLERGIES No Information SOCIAL HISTORY Never Assessed PLAN OF CARE VITAL SIGNS MEDICATIONS Unknown Medications RESULTS No Results PROCEDURES No Known procedures IMMUNIZATIONS No Known Immunizations MEDICAL (GENERAL) HISTORY Type Description Date Medical History type II diabetes Medical History hypertension Medical History breast cancer- stage 3. Medical History Received chemotherapy every 3 weeks at [facility] under Dr Billingsley - Chemotherapy completed/now taking letrozole x10 years. Medical History CAD Medical History Hyperlipidemia Medical History Pulmonary HTN with PAP of 40 per Card 2016 Surgical History left mastectomy 01/2015 Surgical History lymph node removal x6 01/2015 Surgical History cholecystectomy Surgical History tubal ligation Surgical History carotid endarterectomy Surgical History port a cath placement 02/2015 Surgical History DENTAL--PLEASE VERIFY TEETH NUMBERS THAT NEED EXTRACTED DENTAL Surgical History Colonoscopy 4 tubular adenomas due 2018 Hospitalization History stent placement 04/2015
--- NOTE | 2017-09-03 18:16 | Diagnostic Imaging Report ---
PROCEDURE: CT head without contrast. TECHNIQUE: Multiple contiguous axial images were obtained through the brain without the use of intravenous contrast. INDICATION: Dizziness, blurred vision. CORRELATION STUDY: 04/25/2015. FINDINGS: Ventricles and sulci appearing age appropriate. A definitive area of decreased attenuation to suggest edema does not appear to be present. No midline shift or mass effect. There are a few scattered areas of decreased attenuation present which may be reflective of small vessel ischemic disease but are nonspecific. Findings are again slightly more pronounced involving the left frontal lobe. Findings do appear to be perhaps slightly more prominent from prior imaging. No intracranial hemorrhage. Basilar cisterns are maintained. Bony calvarium appearing unremarkable. Paranasal sinuses and mastoid air cells appearing generally clear. IMPRESSION: Negative for acute intracranial abnormality. Scattered areas of decreased attenuation have slightly progressed from prior imaging. Features favor probable changes of small vessel ischemic disease. Other etiologies not excluded. If further assessment is desired, MRI would be recommended. Dictated by: Dictated on workstation # [id number]
--- OUTSIDE RECORDS SUMMARY | 2017-09-03 18:16 | XMS REPORT ---
Author Author ENRRIQUE FUENTES Organization eClinicalWorks Address Unknown Phone Unavailable Care Team Providers Care Finnish Rubber Name Role Phone ENRRIQUE FUENTES CP Unavailable [...] C50.412 Active Problem Neuropathy G62.9 Active Problem 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 Active Problem Essential hypertension I10 Active Medications Medication Code System Code Instructions Start Date End Date Status Dosage FreeStyle Lite Test [facility] 37[address]-20848 - In Vitro 4 times a day before meals and at bedtime. April 28, 2016 Test Blood Sugar Results No Known Results Summary Purpose eClinicalWorks Submission
--- OUTSIDE RECORDS SUMMARY | 2017-09-03 18:16 | XMS REPORT ---
Author Author ANTONI MALIN [facility] Address [address] [place] [address] Care Team Providers Care Wire Coater Name Role Phone ANTONI MALIN Unavailable PROBLEMS Type Condition ICD9-CM Code HAS90-XT Code Onset Dates Condition Status SNOMED Code Problem Hyperkalemia E87.5 Active 98395126 Problem Neuropathy G62.9 Active 887782901 Problem Chronic kidney disease, stage 4 (severe) N18.4 Active 510823234 Assessment Chronic kidney disease, stage 4 (severe) N18.4 Sep, Active 717107669 Problem Foot ulcer, left, limited to breakdown of skin L97.521 Active 66239642 Problem Dental caries on smooth surface penetrating into pulp K02.63 Active 649888443 Problem Essential hypertension I10 Active 88717912 Problem Malignant neoplasm of upper-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 C50.412 Active 632900528 Problem Type 2 diabetes mellitus with hyperglycemia E11.65 Active 901116524926390 Problem snf current use of insulin Z79.4 Active 029337921 ALLERGIES Unknown Allergies SOCIAL HISTORY No smoking Hx information available PLAN OF CARE Activity Details Pending Test URINE PROTEIN TO CREATININE RATIO Pending Test UA W/ MICROSCOPY Pending Test CBC Pending Test RENAL PROFILE ,Reason: VITAL SIGNS MEDICATIONS Unknown Medications RESULTS Name Result Date Reference Range URINE PROTEIN TO CREATININE RATIO 2016-09-26 Creatinine, Urine 122.4 Not Estab. Protein,Total,Urine 15.4 Not Estab. Protein/Creat Ratio 126 0-200 UA W/ MICROSCOPY 2016-09-26 Specific [place] 1.024 1.005-1.030 pH 5.5 5.0-7.5 Urine-Color Yellow Yellow Appearance Clear Clear WBC Esterase 1+ Negative Protein Negative Negative/Trace Glucose Trace Negative Ketones Negative Negative Occult Blood Negative Negative Bilirubin Negative Negative Urobilinogen,Semi-Qn 0.2 0.2-1.0 Nitrite, Urine Negative Negative Microscopic Examination See below: WBC 11-30 0 - 5 RBC 0-2 0 - 2 Epithelial Cells (non renal) 0-10 0 - 10 Epithelial Cells (renal) Casts Cast Type Crystals Crystal Type Mucus Threads Present Not Estab. Bacteria Few None seen/Few Yeast Trichomonas Comment CBC 2016-09-26 WBC 10.1 3.4-10.8 RBC 4.14 3.77-5.28 Hemoglobin 11.5 11.1-15.9 Hematocrit 35.9 34.0-46.6 MCV 87 79-97 MCH 27.8 26.6-33.0 MCHC 32.0 31.5-35.7 RDW 14.7 12.3-15.4 Platelets 312 150-379 Neutrophils 62 Lymphs 27 Monocytes 6 Eos 3 Basos 1 Neutrophils (Absolute) 6.3 1.4-7.0 Lymphs (Absolute) 2.7 0.7-3.1 Monocytes(Absolute) 0.6 0.1-0.9 Eos (Absolute) 0.3 0.0-0.4 Baso (Absolute) 0.1 0.0-0.2 Immature Granulocytes 1 Immature Grans (Abs) 0.1 0.0-0.1 RENAL PROFILE 2016-09-26 Glucose, Serum 196 65-99 BUN 27 8-27 Creatinine, Serum 1.39 0.57-1.00 eGFR If NonAfricn Am 41 >59 eGFR If Africn Am 47 >59 BUN/Creatinine Ratio 19 11-26 Sodium, Serum 140 136-144 Potassium, Serum 4.4 3.5-5.2 Chloride, Serum 99 97-106 Carbon Dioxide, Total 23 18-29 Calcium, Serum 10.5 8.7-10.3 Phosphorus, Serum 3.6 2.5-4.5 Albumin, Serum 4.3 3.6-4.8 PROCEDURES Procedure Date Ordered Related Diagnosis Body [facility] VENIPUNCT, ROUTINE* Sep 26, 2016 IMMUNIZATIONS No Known Immunizations
--- OUTSIDE RECORDS SUMMARY | 2017-09-03 18:16 | XMS REPORT ---
Author Author ROB NUNEZ [facility] Address Unknown Care Team Providers Care Cook Frozen Dessert Name Role Phone ROB NUNEZ Unavailable PROBLEMS Type Condition ICD9-CM Code VTO79-MY Code Onset Dates Condition Status SNOMED Code Problem Malignant neoplasm of upper-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 C50.412 Active 354869186 Problem Foot ulcer, left, limited to breakdown of skin L97.521 Active 62953974 Problem Dental caries on smooth surface penetrating into pulp K02.63 Active 383387127 Problem 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 Active 189809245 Problem Arthritis of right hip M16.11 Active 0317859773360215 Problem Hyperlipidemia LDL goal <70 E78.5 Active 57245940 Problem Chronic pain syndrome G89.4 Active 818500426 Problem Pain in right knee M25.561 Active 70321350 Problem GERD without esophagitis K21.9 Active 637872439 Problem Essential hypertension I10 Active 19866719 Problem Neuropathy G62.9 Active 173185432 Problem Hyperkalemia E87.5 Active 92530458 Problem shelter current use of insulin Z79.4 Active 860140071 Problem Chronic kidney disease, stage 4 (severe) N18.4 Active 953608546 Problem Type 2 diabetes mellitus with hyperglycemia E11.65 Active 416631159737252 ALLERGIES Substance Reaction Event Type Date Status Codeine Sulfate Unknown Drug Allergy Nov, Active SOCIAL HISTORY Never Assessed PLAN OF CARE Activity Details Follow Up prn Reason:Multi TE's - 2 hours VITAL SIGNS Blood pressure systolic 134 mmHg 2016-12-06 Blood pressure diastolic 65 mmHg 2016-12-06 MEDICATIONS Medication Instructions Dosage Frequency Start Date End Date Duration Status Fish Oil 1000 MG Orally Twice a day 1 capsule 12h Active Vitamin D3 2000 UNIT Active Hydrochlorothiazide 25 MG TAKE ONE TABLET BY MOUTH ONCE DAILY 30 Active NovoLog Flexpen 100 UNIT/ML Subcutaneous 3 times daily with meals, per sliding scale as directed 30 days Active Acetaminophen 500 MG Orally every 6 hrs 2 capsules as needed 6h Active Lofibra 134 MG TAKE ONE CAPSULE BY MOUTH ONCE DAILY WITH A MEAL 30 Active Folic Acid 400 MCG Orally Once a day 1 tablet 24h Active Pen [place] 1/2" 29G X 12MM subcutaneously 5 times per day as directed Active Gabapentin 300 MG TAKE ONE CAPSULE BY MOUTH TWICE DAILY 30 Active Levemir FlexTouch 100 UNIT/ML Subcutaneous twice a day 30 units 12h 90 days Active Tramadol HCl 50 mg Orally 2 times a day prn must last 4 weeks- APPT NEEDED FOR FUTHER REFILLS 1 tablet as needed Jun, Active Metoprolol Succinate ER 25 MG TAKE ONE TABLET BY MOUTH ONCE DAILY 30 Active Magnesium Oxide 400 MG Orally 2 times a day 1 capsule 12h Active Lisinopril 40 MG TAKE ONE TABLET BY MOUTH ONCE DAILY 30 Active FreeStyle Lite Test - TEST BLOOD SUGAR FOUR TIMES A DAY BEFORE MEALS AND AT BEDTIME 25 Active Aspir-81 81 MG Orally Once a day 1 tablet 24h Active Amlodipine Besylate 5 MG Orally Once a day 1 tablet 24h Active Atorvastatin Calcium 10 MG Orally Once a day 1 tablet 24h Active Letrozole 2.5 MG Orally Once a day 1 tablet 24h Active Pantoprazole Sodium 40 MG TAKE ONE TABLET BY MOUTH ONCE DAILY 30 Active RESULTS No Results PROCEDURES Procedure Date Ordered Result Body Site EXTRAC ERUPTED TOOTH/EXPOSED ROOT Dec 06, 2016 EXTRAC ERUPTED TOOTH/EXPOSED ROOT Dec 06, 2016 EXTRAC ERUPTED TOOTH/EXPOSED ROOT Dec 06, 2016 EXTRAC ERUPTED TOOTH/EXPOSED ROOT Dec 06, 2016 EXTRAC ERUPTED TOOTH/EXPOSED ROOT Dec 06, 2016 EXTRAC ERUPTED TOOTH/EXPOSED ROOT Dec 06, 2016 EXTRAC ERUPTED TOOTH/EXPOSED ROOT Dec 06, 2016 EXTRAC ERUPTED TOOTH/EXPOSED ROOT Dec 06, 2016 EXTRAC ERUPTED TOOTH/EXPOSED ROOT Dec 06, 2016 EXTRAC ERUPTED TOOTH/EXPOSED ROOT Dec 06, 2016 EXTRAC ERUPTED TOOTH/EXPOSED ROOT Dec 06, 2016 EXTRAC ERUPTED TOOTH/EXPOSED ROOT Dec 06, 2016 EXTRAC ERUPTED TOOTH/EXPOSED ROOT Dec 06, 2016 IMMUNIZATIONS No Known Immunizations MEDICAL (GENERAL) HISTORY Type Description Date Medical History type II diabetes Medical History hypertension Medical History breast cancer- stage 3. Medical History Received chemotherapy every 3 weeks at [facility] under Dr Billingsley - Chemotherapy completed/now taking [...]
--- OUTSIDE RECORDS SUMMARY | 2017-09-03 18:16 | XMS REPORT ---
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
--- OUTSIDE RECORDS SUMMARY | 2017-09-03 18:16 | XMS REPORT ---
Author Author ENRRIQUE FUENTES [facility] eClinicalWorks Address Unknown Phone Unavailable Care Team Providers Care Ophthalmology Assistant Name Role Phone ENRRIQUE FUENTES CP Unavailable Allergies, Adverse Reactions, Alerts Substance Reaction Event Type N.K.D.A. Info Not Available Non Drug Allergy Problems Problem Type Condition Code Onset Dates Condition Status Assessment Type 2 diabetes mellitus with hyperglycemia E11.65 Active Problem Chronic kidney disease, stage 4 (severe) N18.4 Active Problem Hyperkalemia E87.5 Active Assessment Chronic kidney disease, stage 4 (severe) N18.4 Active Problem Dental caries on smooth surface penetrating into pulp K02.63 Active Problem Type 2 diabetes mellitus with hyperglycemia E11.65 Active Problem Foot ulcer, left, limited to breakdown of skin L97.521 Active Problem Malignant neoplasm of upper-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 C50.412 Active Problem Neuropathy G62.9 Active Problem 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 [address]-82 4 MG Orally take two tablets by mouth every morning and evening the day before, day of and day after chemo-every 3 weeks 1 tablet Gabapentin [facility] 31459839097 300 MG TAKE ONE CAPSULE BY MOUTH TWICE DAILY - [facility] [address]-28 81 MG Orally Once a day 1 tablet Clobetasol Propionate [facility] [address]-88 0.05 % Externally Twice a day 1 application to affected area Levemir FlexTouch [facility] [address]-75 100 UNIT/ML Subcutaneous twice a day 19 units Amlodipine Besylate [facility] [address]-18 5 MG Orally Once a day 1 tablet NovoLog Flexpen [facility] [address]-38 100 UNIT/ML Subcutaneous 3 times daily with meals, per sliding scale as directed Omeprazole [facility] [address]-15 20 MG Orally Once a day 1 capsule Folic Acid [facility] [address]-65 400 MCG Orally Once a day 1 tablet Gabapentin [facility] [address]-45 300 MG Orally 2 times a day 1 capsule Hydrochlorothiazide [facility] [address]-26 25 MG TAKE ONE TABLET BY MOUTH ONCE DAILY Atorvastatin Calcium [facility] [address]-10 10 MG Orally Once a day 1 tablet Letrozole [facility] [address]-25 2.5 MG Orally Once a day 1 tablet Acetaminophen [facility] [address]-09 500 MG Orally every 6 hrs 2 capsules as needed Novolin R [facility] [address]-01 100 UNIT/ML Injection per sliding scale not defined Ticagrelor [facility] [address]-12 90 MG Orally Twice a day 1 tablet Lofibra [facility] 62074327513 134 MG TAKE ONE CAPSULE BY MOUTH ONCE DAILY WITH A MEAL Pen [place] 1/" [facility] [address]-21 29G X 12MM subcutaneously 5 times per day May 03, 2016 as directed Norvasc [facility] [address]-11 5 MG Orally Once a day 1 tablet Ondansetron HCl [facility] [address]-17 8 MG Orally every 8 hrs 1 tablet Metoprolol Succinate ER [facility] [address]-21 25 MG TAKE ONE TABLET BY MOUTH ONCE DAILY Clickfine Pen [place] [facility] 33813917430 31 gauge USE WITH LEVEMIR Magnesium Oxide [facility] [address]-41 400 MG Orally 2 times a day 1 capsule Vitamin D3 [facility] [address]-27 2000 UNIT Orally not defined Lisinopril [facility] [address]-02 40 MG TAKE ONE TABLET BY MOUTH ONCE DAILY Fish Oil [facility] [address]-98 1000 MG Orally Twice a day 1 capsule Pantoprazole Sodium [facility] 18671039343 40 MG TAKE ONE TABLET BY MOUTH ONCE DAILY Tramadol HCl [facility] [address]-53 50 mg Orally 2 times a day prn must last 4 weeks- Jul 21, 2015 1 tablet as needed FreeStyle Lite Test [facility] [address] - In Vitro 4 times a day before meals and at bedtime. April 28, 2016 Test Blood Sugar Procedures Procedure Coding System Code Date Office Visit, Est Pt., Level 4 CPT-4 21099 May 03, 2016 Vital Signs Date/Time: May 03, 2016 Cardiac Monitoring Heart Rate 74 bpm Weight 210.1 lbs Height 68 in Blood Pressure Diastolic 77 mmHg Blood Pressure Systolic 132 mmHg Results No Known Results Summary Purpose eClinicalWorks Submission
--- OUTSIDE RECORDS SUMMARY | 2017-09-03 18:16 | XMS REPORT ---
Author Author ENRRIQUE FUENTES Organization [employer] Address Unknown Phone Unavailable Care Team Providers Care Ct Scan Special Procedures Technologist Name Role Phone ENRRIQUE FUENTES CP Unavailable Allergies No Known Allergies Problems Problem Type Condition Code Onset Dates Condition Status Problem Chronic kidney disease, stage 4 (severe) N18.4 Active Problem Hyperkalemia E87.5 Active Problem Dental caries on smooth surface penetrating into pulp K02.63 Active Problem Type 2 diabetes mellitus with hyperglycemia E11.65 Active Problem Foot ulcer, left, limited to breakdown of skin L97.521 Active Problem Malignant neoplasm of upper-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 C50.412 Active Problem Neuropathy G62.9 Active Problem halfway current use of insulin Z79.4 Active Problem Essential hypertension I10 Active Medications Medication Code System Code Instructions Start Date End Date Status Dosage Tramadol HCl [facility] [address]-43 50 mg Orally 2 times a day prn must last 4 weeks- APPT NEEDED FOR FUTHER REFILLS Jul 21, 2015 1 tablet as needed Results No Known Results Summary Purpose eClinicalWorks Submission
--- OUTSIDE RECORDS SUMMARY | 2017-09-03 18:16 | XMS REPORT ---
Author Author ENRRIQUE FUENTES Organization [facility] Address [address] [place] [address] Care Team Providers Care Mail Handler Assistant Name Role Phone ENRRIQUE FUENTES Unavailable PROBLEMS Type Condition ICD9-CM Code [id number] Code Onset Dates Condition Status SNOMED Code Problem Hyperkalemia E87.5 Active 06559915 Problem Neuropathy G62.9 Active 092263117 Problem Chronic kidney disease, stage 4 (severe) N18.4 Active 527810879 Problem Foot ulcer, left, limited to breakdown of skin L97.521 Active 92905859 Problem Dental caries on smooth surface penetrating into pulp K02.63 Active 167846661 Problem Essential hypertension I10 Active 64279094 Problem Malignant neoplasm of upper-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 C50.412 Active 087052712 Problem Type 2 diabetes mellitus with hyperglycemia E11.65 Active 324347777550005 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
--- OUTSIDE RECORDS SUMMARY | 2017-09-03 18:17 | XMS REPORT ---
Author Author ROB NUNEZ [facility] Address Unknown Care Team Providers Care Debt Recovery Officer Name Role Phone ROB NUNEZ Unavailable PROBLEMS Type Condition ICD9-CM Code [id number] Code Onset Dates Condition Status SNOMED Code Problem Hyperkalemia E87.5 Active 27869047 Problem Neuropathy G62.9 Active 197937462 Problem Chronic kidney disease, stage 4 (severe) N18.4 Active 422679039 Assessment Dental examination Z01.20 Aug, Active 867925903 Problem Foot ulcer, left, limited to breakdown of skin L97.521 Active 28761017 Problem Dental caries on smooth surface penetrating into pulp K02.63 Active 158634580 Problem Essential hypertension I10 Active 05082369 Problem Malignant neoplasm of upper-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 C50.412 Active 039262957 Problem Type 2 diabetes mellitus with hyperglycemia E11.65 Active 872761274379061 Problem correction current use of insulin Z79.4 Active 902692286 ALLERGIES Substance Reaction Event Type Date Status N.K.D.A. Unknown Non Drug Allergy Aug, Unknown SOCIAL HISTORY No smoking Hx information available PLAN OF CARE VITAL SIGNS Blood pressure systolic 142 mmHg 2016-08-31 Blood pressure diastolic 80 mmHg 2016-08-31 MEDICATIONS Medication Instructions Dosage Frequency Start Date End Date Duration Status Fish Oil 1000 MG Orally Twice a day 1 capsule 12h Active Atorvastatin Calcium 10 MG Orally Once a day 1 tablet 24h Active Levemir FlexTouch 100 UNIT/ML Subcutaneous twice a day 23 units 12h 90 days Active Acetaminophen 500 MG Orally every 6 hrs 2 capsules as needed 6h Active Vitamin D3 2000 UNIT Active FreeStyle Lite Test - TEST BLOOD SUGAR FOUR TIMES A DAY BEFORE MEALS AND AT BEDTIME 25 Active Lisinopril 40 MG TAKE ONE TABLET BY MOUTH ONCE DAILY 30 Active Norvasc 5 MG Orally Once a day 1 tablet 24h Active NovoLog Flexpen 100 UNIT/ML Subcutaneous 3 times daily with meals, per sliding scale as directed 30 days Active Letrozole 2.5 MG Orally Once a day 1 tablet 24h Active Gabapentin 300 MG TAKE ONE CAPSULE BY MOUTH TWICE DAILY 30 Active Hydrochlorothiazide 25 MG TAKE ONE TABLET BY MOUTH ONCE DAILY 30 Active Metoprolol Succinate ER 25 MG TAKE ONE TABLET BY MOUTH ONCE DAILY 30 Active Tramadol HCl 50 mg Orally 2 times a day prn must last 4 weeks- APPT NEEDED FOR FUTHER REFILLS 1 tablet as needed 30 Jun, 2015 Active Folic Acid 400 MCG Orally Once a day 1 tablet 24h Active Clickfine Pen Deep Gap 31 gauge USE WITH LEVEMIR 30 Active Lofibra 134 MG TAKE ONE CAPSULE BY MOUTH ONCE DAILY WITH A MEAL 30 Active Aspir-81 81 MG Orally Once a day 1 tablet 24h Active Pen Deep Gap 1/2" 29G X 12MM subcutaneously 5 times per day as directed Active Amlodipine Besylate 5 MG Orally Once a day 1 tablet 24h Active Magnesium Oxide 400 MG Orally 2 times a day 1 capsule 12h Active Pantoprazole Sodium 40 MG TAKE ONE TABLET BY MOUTH ONCE DAILY 30 Active RESULTS No Results PROCEDURES Procedure Date Ordered Related Diagnosis Body Site INTRAORL-PERIAPICAL EA ADD FILM Aug 31, 2016 INTRAORL-PERIAPICAL EA ADD FILM Aug 31, 2016 INTRAORL-PERIAPICAL EA ADD FILM Aug 31, 2016 INTRAORL-PERIAPICAL EA ADD FILM Aug 31, 2016 INTRAORL-PERIAPICAL EA ADD FILM Aug 31, 2016 INTRAORL-PERIAPICAL EA ADD FILM Aug 31, 2016 INTRAORL-PERIAPICAL EA ADD FILM Aug 31, 2016 INTRAORL-PERIAPICAL EA ADD FILM Aug 31, 2016 INTRAORL-PERIAPICAL EA ADD FILM Aug 31, 2016 LTD ORAL EVALUATION - PROBLEM FOCUS Aug 31, 2016 INTRAORL-PERIAPICAL EA ADD FILM Aug 31, 2016 INTRAORL-PERIAPICAL EA ADD FILM Aug 31, 2016 INTRAORL-PERIAPICAL 1 FILM [id number] Aug 31, 2016 INTRAORL-PERIAPICAL EA ADD FILM Aug 31, 2016 INTRAORL-PERIAPICAL EA ADD FILM Aug 31, 2016 IMMUNIZATIONS No Known Immunizations
--- OUTSIDE RECORDS SUMMARY | 2017-09-03 18:17 | XMS REPORT ---
Author Author ENRRIQUE FUENTES Organization [employer] Address Unknown Phone Unavailable Care Team Providers Care Neurological Surgery Teacher Name Role Phone ENRRIQUE FUENTES CP [...] C50.412 Active Problem Neuropathy G62.9 Active Problem [facility] current use of insulin Z79.4 Active Problem Essential hypertension I10 Active Medications Medication Code System Code Instructions Start Date End Date Status Dosage Tramadol HCl [facility] [address]-02 50 mg Orally 2 times a day prn must last 4 weeks- APPT NEEDED FOR FUTHER REFILLS Jul 21, 2015 1 tablet as needed Results No Known Results Summary Purpose eClinicalWorks Submission
--- OUTSIDE RECORDS SUMMARY | 2017-09-03 18:18 | XMS REPORT ---
Author ENRRIQUE Allen [facility] eClinicalWorks Address Unknown Phone Unavailable Care Team Providers Care Palletiser Operator Name Role Phone ENRRIQUE FUENTES Unavailable Allergies, Adverse Reactions, Alerts Substance Reaction Event Type N.K.D.A. 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.4 Active Problem Essential hypertension I10 Active Problem Type 2 diabetes mellitus with hyperglycemia E11.65 Active Assessment Type 2 diabetes mellitus with hyperglycemia E11.65 Active Assessment detention current use of insulin Z79.4 Active Problem Malignant neoplasm of upper-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 C50.412 Active Problem Neuropathy G62.9 Active Medications Medication Code System Code Instructions Start Date End Date Status Dosage Folic Acid [facility] [address]-53 400 MCG Orally Once a day 1 tablet NovoLog Flexpen [facility] [address]-40 100 UNIT/ML Subcutaneous 3 times daily with meals, per sliding scale April 15, 2015 as directed Gabapentin [facility] [address]-66 300 MG Orally 2 times a day 1 capsule Hydrochlorothiazide [facility] [address]-15 25 MG Orally Once a day 1 tablet Ticagrelor [facility] [address]-59 90 MG Orally Twice a day 1 tablet Meloxicam [facility] [address]-12 7.5 MG TAKE ONE TABLET BY MOUTH ONCE DAILY Fish Oil [facility] [address]-86 1000 MG Orally Twice a day 1 capsule Aspir-81 [facility] [address]-40 81 MG Orally Once a day 1 tablet NovoLog Flexpen [facility] [address]-06 100 UNIT/ML Subcutaneous 3 times daily with meals, per sliding scale as directed Lofibra [facility] [address]-60 134 MG TAKE ONE CAPSULE BY MOUTH ONCE DAILY WITH A MEAL Magnesium Oxide [facility] [address]-62 400 MG Orally 2 times a day 1 capsule Levemir FlexTouch [facility] [address]-21 100 UNIT/ML Subcutaneous twice a day 12 units Tramadol HCl [facility] [address]-83 50 MG Orally 2 times a day prn must last 4 weeks Jul 21, 2015 1 tablet as needed Ondansetron HCl [facility] [address]-87 8 MG Orally every 8 hrs 1 tablet Metoprolol Succinate ER [facility] [address]-11 25 MG TAKE ONE TABLET BY MOUTH ONCE DAILY Lisinopril [facility] [address]-64 40 MG Orally Once a day 1 tablet Pantoprazole Sodium [facility] [address]-98 40 MG TAKE ONE TABLET BY MOUTH ONCE DAILY Procedures Procedure Coding System Code Date GLYCATED HEMOGLOBIN TEST CPT-4 60018 Oct 12, 2015 Office Visit, Est Pt., Level 4 CPT-4 13973 Oct 12, 2015 MICROALBUMIN, SEMIQUANT CPT-4 68974 Oct 12, 2015 Vital Signs Date/Time: Oct 12, 2015 Temperature 97.3 F Weight 200.2 lbs Height 68 in BMI 30.44 Index Blood Pressure Diastolic 78 mmHg Blood Pressure Systolic 130 mmHg Cardiac Monitoring Heart Rate 68 bpm Results Name Result Date Reference Range Unit Abnormality Flag A1C (IN HOUSE) ----A1C IN HOUSE 7.5 [id number] 4.30 - 5.6 % ----Previous A1c 7.1 [id number] ----Lot # [id number] ----Exp date [id number] Summary Purpose eClinicalWorks Submission
--- OUTSIDE RECORDS SUMMARY | 2017-09-03 18:18 | XMS REPORT ---
Author Author ENRRIQUE FUENTES [facility] eClinicalWorks Address Unknown Phone Unavailable Care Team Providers Care Operator Prefinish Name Role Phone ENRRIQUE FUENTES CP Unavailable Allergies No Known Allergies Problems Problem Type Condition Code Onset Dates Condition Status Problem correction current use of insulin Z79.4 Active Problem Essential hypertension I10 Active Problem Type 2 diabetes mellitus with hyperglycemia E11.65 Active Problem Malignant neoplasm of upper-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 C50.412 Active Problem Neuropathy G62.9 Active Medications Medication Code System Code Instructions Start Date End Date Status Dosage Tramadol HCl [facility] [address]-83 50 MG Orally 2 times a day prn must last 4 weeks Jul 21, 2015 1 tablet as needed Results No Known Results Summary Purpose eClinicalWorks Submission
--- OUTSIDE RECORDS SUMMARY | 2017-09-03 18:18 | XMS REPORT ---
Author Author ENRRIQUE FUENTES Organization [employer] Address Unknown Phone Unavailable Care Team Providers Care Adult Live In Caregiver Name Role Phone ENRRIQUE FUENTES CP Unavailable Allergies No Known Allergies Problems Problem Type Condition Code Onset Dates Condition Status Problem Hypertension 401.9 Active Problem DM w/o complication type II, uncontrolled 250.02 Active Medications Medication Code System Code Instructions Start Date End Date Status Dosage Tramadol HCl [facility] [address]-95 50 MG Orally 2 times a day prn must last 4 weeks Jul 21, 2015 1 tablet as needed Results No Known Results Summary Purpose eClinicalWorks Submission
--- OUTSIDE RECORDS SUMMARY | 2017-09-03 18:18 | XMS REPORT ---
Author Author ENRRIQUE FUENTES Organization [employer] Address Unknown Phone Unavailable Care Team Providers Care Poultry Debeaker Name Role Phone ENRRIQUE FUENTES CP Unavailable Allergies No Known Allergies Problems Problem Type Condition Code Onset Dates Condition Status Problem Hypertension 401.9 Active Problem DM w/o complication type II, uncontrolled 250.02 Active Medications Medication Code System Code Instructions Start Date End Date Status Dosage Meloxicam [facility] [id number] 7.5 TAKE ONE TABLET BY MOUTH DAILY Pantoprazole Sodium [facility] [address]-02 40 MG Orally Once a day 1 tablet Metoprolol Succinate ER [facility] [address]-09 25 MG Orally Once a day 1 tablet Gabapentin [facility] [address]-05 300 MG Orally 2 times a day 1 capsule Lisinopril [facility] [address]-17 40 MG Orally Once a day 1 tablet Lofibra [facility] [address]-57 134 MG Orally Once a day 1 capsule with a meal Magnesium Oxide [facility] [address]-75 400 MG Orally 2 times a day 1 capsule Fish Oil [facility] [address]-76 1000 MG Orally Twice a day 1 capsule Hydrochlorothiazide [facility] [address]-03 25 MG Orally Once a day 1 tablet Ticagrelor [facility] [address]-36 90 MG Orally Twice a day 1 tablet Results No Known Results Summary Purpose eClinicalWorks Submission
--- OUTSIDE RECORDS SUMMARY | 2017-09-03 18:18 | XMS REPORT ---
Author Author ENRRIQUE FUENTES [facility] Address [address] [place] [address] Care Team Providers Care Chicken Hatchery Helper Name Role Phone ENRRIQUE FUENTES Unavailable PROBLEMS Type Condition ICD9-CM Code [id number] Code Onset Dates Condition Status SNOMED Code Problem Malignant neoplasm of upper-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 C50.412 Active 009833333 Problem Foot ulcer, left, limited to breakdown of skin L97.521 Active 72217742 Problem Dental caries on smooth surface penetrating into pulp K02.63 Active 424487576 Problem 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 Active 606139930 Problem Arthritis of right hip M16.11 Active 4950930630429503 Problem Hyperlipidemia LDL goal <70 E78.5 Active 14784429 Problem Chronic pain syndrome G89.4 Active 583865359 Problem Pain in right knee M25.561 Active 57362681 Problem GERD without esophagitis K21.9 Active 293272038 Problem Essential hypertension I10 Active 45835827 Problem Neuropathy G62.9 Active 015671045 Problem Hyperkalemia E87.5 Active 71457200 Problem senior care current use of insulin Z79.4 Active 777375680 Problem Chronic kidney disease, stage 4 (severe) N18.4 Active 835463691 Problem Type 2 diabetes mellitus with hyperglycemia E11.65 Active [id number] ALLERGIES No Information SOCIAL HISTORY Never Assessed PLAN OF CARE VITAL SIGNS MEDICATIONS Medication [...] History Received chemotherapy every 3 weeks at [facility] under Dr Billingsley - Chemotherapy completed/now [...]
--- OUTSIDE RECORDS SUMMARY | 2017-09-03 18:18 | XMS REPORT ---
Author Author ENRRIQUE FUENTES Organization [employer]Works Address Unknown Phone Unavailable Care Team Providers Care Quiller Tender Name Role Phone ENRRIQUE FUENTES CP Unavailable Allergies No Known Allergies Problems Problem Type Condition Code Onset Dates Condition Status Problem Hypertension 401.9 Active Problem DM w/o complication type II, uncontrolled 250.02 Active Medications No Known Medications Results No Known Results Summary Purpose eClinicalWorks Submission
--- OUTSIDE RECORDS SUMMARY | 2017-09-03 18:19 | XMS REPORT ---
Author Author ENRRIQUE FUENTES Organization [employer] Address Unknown Phone Unavailable Care Team Providers Care Aircraft Air Conditioning Mechanic Name Role Phone ENRRIQUE FUENTES CP Unavailable [...] C50.412 Active Problem Neuropathy G62.9 Active Problem correction current use of insulin Z79.4 Active Problem Essential hypertension I10 Active Medications Medication Code System Code Instructions Start Date End Date Status Dosage FreeStyle Lite Test [facility] [id number] - TEST BLOOD SUGAR FOUR TIMES A DAY BEFORE MEALS AND AT BEDTIME Results No Known Results Summary Purpose eClinicalWorks Submission
--- OUTSIDE RECORDS SUMMARY | 2017-09-03 18:20 | XMS REPORT ---
Author Author ENRRIQUE FUENTES Organization eClinicalWorks Address Unknown Phone Unavailable Care Team Providers Care Bus Boy Name Role Phone ENRRIQUE FUENTES CP Unavailable Allergies No Known Allergies Problems Problem Type Condition Code Onset Dates Condition Status Problem group home current use of insulin Z79.4 Active Problem Essential hypertension I10 Active Problem Type 2 diabetes mellitus with hyperglycemia E11.65 Active Problem Malignant neoplasm of upper-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 C50.412 Active Problem Neuropathy G62.9 Active Medications Medication Code System Code Instructions Start Date End Date Status Dosage Tramadol HCl [facility] [address]-80 50 MG Orally 2 times a day prn must last 4 weeks- appt needed in DecemberJul 21, 2015 1 tablet as needed Results No Known Results Summary Purpose eClinicalWorks Submission
--- OUTSIDE RECORDS SUMMARY | 2017-09-03 18:20 | XMS REPORT ---
Author Author ENRRIQUE FUENTES [facility] eClinicalWorks Address Unknown Phone Unavailable Care Team Providers Care Escrow Secretary Name Role Phone ENRRIQUE FUENTES Unavailable Allergies, Adverse Reactions, Alerts Substance Reaction Event Type N.K.D.A. Info Not Available Non Drug Allergy Problems Problem Type Condition Code Onset Dates Condition Status Problem Hypertension 401.9 Active Assessment Pneumonia of right middle lobe due to infectious organism J18.9 Active Problem DM w/o complication type II, uncontrolled 250.02 Active Medications Medication Code System Code Instructions Start Date End Date Status Dosage Levaquin [facility] [address]-93 500 MG Orally Once a day Aug 12, 2015 Aug 19, 2015 1 tablet Gabapentin [facility] [address]-34 300 MG Orally 2 times a day 1 capsule Pantoprazole Sodium [facility] [address]-35 40 MG Orally Once a day 1 tablet Metoprolol Succinate ER [facility] [address]-88 25 MG Orally Once a day 1 tablet Hydrochlorothiazide [facility] [address]-15 25 MG Orally Once a day 1 tablet Aspir-81 [facility] [address]-84 81 MG Orally Once a day 1 tablet Magnesium Oxide [facility] [address]-02 400 MG Orally 2 times a day 1 capsule Lisinopril [facility] [address]-06 40 MG Orally Once a day 1 tablet Folic Acid [facility] [address]-60 400 MCG Orally Once a day 1 tablet NovoLog Flexpen [facility] [address]-69 100 UNIT/ML Subcutaneous 3 times daily with meals, per sliding scale April 15, 2015 as directed Tramadol HCl [facility] [address]-65 50 MG Orally 2 times a day prn Jul 21, 2015 1 tablet as needed Fish Oil [facility] [address]-34 1000 MG Orally Twice a day 1 capsule Meloxicam [facility] 51072838463 7.5 TAKE ONE TABLET BY MOUTH DAILY NovoLog Flexpen [facility] [address]-11 100 UNIT/ML Subcutaneous 3 times daily with meals, per sliding scale as directed Ondansetron HCl [facility] [address]-51 8 MG Orally every 8 hrs 1 tablet Lofibra [facility] [address]-14 134 MG Orally Once a day 1 capsule with a meal Ticagrelor [facility] [address]-77 90 MG Orally Twice a day 1 tablet Levemir FlexTouch [facility] [address]-53 100 UNIT/ML Subcutaneous Once a day 20 units Procedures Procedure Coding System Code Date Office Visit, Est Pt., Level 3 CPT-4 60725 Aug 18, 2015 Vital Signs Date/Time: Aug 18, 2015 Temperature 97.8 F Weight 202.2 lbs Height 68 in BMI 30.74 Index Blood Pressure Diastolic 84 mmHg Blood Pressure Systolic 142 mmHg Cardiac Monitoring Heart Rate 70 bpm Results No Known Results Summary Purpose eClinicalWorks Submission
--- OUTSIDE RECORDS SUMMARY | 2017-09-03 18:20 | XMS REPORT ---
Author Author ENRRIQUE FUENTES Organization [employer] Address Unknown Phone Unavailable Care Team Providers Care Welding Rod Coater Name Role Phone ENRRIQUE FUENTES CP Unavailable Allergies No Known Allergies Problems Problem Type Condition Code Onset Dates Condition Status Problem Hypertension 401.9 Active Problem DM w/o complication type II, uncontrolled 250.02 Active Medications No Known Medications Results No Known Results Summary Purpose eClinicalWorks Submission
--- OUTSIDE RECORDS SUMMARY | 2017-09-03 18:20 | XMS REPORT ---
Author Author ENRRIQUE FUENTES [facility] Address [address] [place] [address] Care Team Providers Care Auto Customize Painter Name Role Phone ENRRIQUE FUENTES Unavailable PROBLEMS Type Condition ICD9-CM Code [id number] Code Onset Dates Condition Status SNOMED Code Problem Type 2 diabetes mellitus with hyperglycemia E11.65 Active 941729960330592 Problem Foot ulcer, left, limited to breakdown of skin L97.521 Active 94932234 Problem Dental caries on smooth surface penetrating into pulp K02.63 Active 388149314 Problem 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 Active 185378893 Problem Arthritis of right hip M16.11 Active 0895325971955807 Problem GERD without esophagitis K21.9 Active 040441306 Problem Chronic pain syndrome G89.4 Active 069528952 Problem Pain in right knee M25.561 Active 97611404 Problem Hyperlipidemia LDL goal <70 E78.5 Active 23940122 Problem Neuropathy G62.9 Active 694094451 Problem Malignant neoplasm of upper-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 C50.412 Active 216855143 Problem Hyperkalemia E87.5 Active 74919448 Problem Essential hypertension I10 Active 07543387 Problem Chronic kidney disease, stage 4 (severe) N18.4 Active 638401394 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
--- OUTSIDE RECORDS SUMMARY | 2017-09-03 18:21 | XMS REPORT ---
Author Author ENRRIQUE FUENTES Organization [facility] Address [address] [place] [address] Care Team Providers Care Outpatient Case Manager Name Role Phone ENRRIQUE FUENTES Unavailable PROBLEMS Type Condition ICD9-CM Code [id number] Code Onset Dates Condition Status SNOMED Code Problem Malignant neoplasm of upper-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 C50.412 Active 948566822 Problem Foot ulcer, left, limited to breakdown of skin L97.521 Active 76827841 Problem Dental caries on smooth surface penetrating into pulp K02.63 Active 038962717 Problem 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 Active 362963613 Problem Arthritis of right hip M16.11 Active 8275156859825653 Problem Hyperlipidemia LDL goal <70 E78.5 Active 30365709 Problem Chronic pain syndrome G89.4 Active 928590302 Problem Pain in right knee M25.561 Active 87079352 Problem GERD without esophagitis K21.9 Active 475805716 Problem Essential hypertension I10 Active 49609811 Problem Neuropathy G62.9 Active 626423223 Problem Hyperkalemia E87.5 Active 01241017 Problem half-way current use of insulin Z79.4 Active 119038961 Problem Chronic kidney disease, stage 4 (severe) N18.4 Active 072603505 Problem Type 2 diabetes mellitus with hyperglycemia E11.65 Active [id number] ALLERGIES No Information SOCIAL HISTORY Never Assessed PLAN OF CARE VITAL SIGNS MEDICATIONS Medication Instructions Dosage Frequency Start Date End Date Duration Status Pen [place] 1/2" 29G X 12MM subcutaneously 5 times per day as directed Active RESULTS No Results PROCEDURES No Known procedures IMMUNIZATIONS No Known Immunizations MEDICAL (GENERAL) HISTORY Type Description Date Medical History type II diabetes Medical History hypertension Medical History breast cancer- stage 3. Medical History Received chemotherapy every 3 weeks at [facility] under Dr Billingsley - Chemotherapy completed/now taking [...]
--- OUTSIDE RECORDS SUMMARY | 2017-09-03 18:22 | XMS REPORT ---
Author Author ENRRIQUE FUENTES [facility] Address [address] [place] [address] Care Team Providers Care Interlocking And Signal Mechanic Name Role Phone ENRRIQUE FUENTES Unavailable PROBLEMS Type Condition ICD9-CM Code [id number] Code Onset Dates Condition Status SNOMED Code Problem Malignant neoplasm of upper-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 C50.412 Active 414831779 Problem Foot ulcer, left, limited to breakdown of skin L97.521 Active 43577940 Problem Dental caries on smooth surface penetrating into pulp K02.63 Active 033344024 Problem 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 Active 050506690 Problem Arthritis of right hip M16.11 Active 9185681586610426 Problem Hyperlipidemia LDL goal <70 E78.5 Active 91016525 Problem Chronic pain syndrome G89.4 Active 888632639 Problem Pain in right knee M25.561 Active 25074114 Problem GERD without esophagitis K21.9 Active 747046575 Problem Essential hypertension I10 Active 39360342 Problem Neuropathy G62.9 Active 043381252 Problem Hyperkalemia E87.5 Active 81605999 Problem care home current use of insulin Z79.4 Active 824566152 Problem Chronic kidney disease, stage 4 (severe) N18.4 Active 991377024 Problem Type 2 diabetes mellitus with hyperglycemia E11.65 Active 903560043592613 ALLERGIES No Information SOCIAL HISTORY Never Assessed PLAN OF CARE VITAL SIGNS MEDICATIONS Medication Instructions Dosage Frequency Start Date End Date Duration Status Tramadol HCl 50 mg Orally 2 times a day prn 1 tablet as needed Jun, Active RESULTS No Results PROCEDURES No Known procedures IMMUNIZATIONS No Known Immunizations MEDICAL (GENERAL) HISTORY Type Description Date Medical History type II diabetes Medical History hypertension Medical History breast cancer- stage 3. Medical History Received chemotherapy every 3 weeks at [facility] under Dr Billingsley - Chemotherapy completed/now taking [...]
--- OUTSIDE RECORDS SUMMARY | 2017-09-03 18:22 | XMS REPORT ---
Author Author ENRRIQUE FUENTES Organization [employer] Address Unknown Phone Unavailable Care Team Providers Care Head Automatic Sawyer Name Role Phone ENRRIQUE FUENTES CP Unavailable Allergies No Known Allergies Problems Problem Type Condition Code Onset Dates Condition Status Problem Hypertension 401.9 Active Problem DM w/o complication type II, uncontrolled 250.02 Active Medications Medication Code System Code Instructions Start Date End Date Status Dosage Levaquin [facility] [address]-55 500 MG Orally Once a day Aug 12, 2015 Aug 19, 2015 1 tablet Results No Known Results Summary Purpose [employer] Submission
--- OUTSIDE RECORDS SUMMARY | 2017-09-03 18:22 | XMS REPORT ---
Author Author ENRRIQUE FUENTES Organization [employer] Address Unknown Phone Unavailable Care Team Providers Care Cloth Framer Name Role Phone ENRRIQUE FUENTES CP Unavailable [...] C50.412 Active Problem Neuropathy G62.9 Active Problem [facility] current use of insulin Z79.4 Active Problem Essential hypertension I10 Active Medications Medication Code System Code Instructions Start Date End Date Status Dosage Tramadol HCl [facility] [address]-02 50 mg Orally 2 times a day prn must last 4 weeks- Jul 21, 2015 1 tablet as needed Results No Known Results Summary Purpose [employer] Submission
--- OUTSIDE RECORDS SUMMARY | 2017-09-03 18:22 | XMS REPORT ---
Author Author ALBAN MARTE Organization [facility] Address [address] [place] [address] Care Team Providers Care Dowel Inspector Name Role Phone LIZA MARTENETTE Unavailable PROBLEMS Type Condition ICD9-CM Code RFR29-TB Code Onset Dates Condition Status SNOMED Code Problem Malignant neoplasm of upper-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 C50.412 Active 114658986 Problem Foot ulcer, left, limited to breakdown of skin L97.521 Active 22235820 Problem Dental caries on smooth surface penetrating into pulp K02.63 Active 794957561 Problem 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 Active 348379807 Problem Arthritis of right hip M16.11 Active 8095461809360808 Problem Hyperlipidemia LDL goal <70 E78.5 Active 93862592 Problem Chronic pain syndrome G89.4 Active 717504434 Problem Pain in right knee M25.561 Active 34147643 Problem GERD without esophagitis K21.9 Active 797754841 Problem Essential hypertension I10 Active 68006548 Problem Neuropathy G62.9 Active 612980464 Problem Hyperkalemia E87.5 Active 17291010 Problem nursing home current use of insulin Z79.4 Active 642233653 Problem Chronic kidney disease, stage 4 (severe) N18.4 Active 096613798 Problem Type 2 diabetes mellitus with hyperglycemia E11.65 Active 280770093529096 ALLERGIES No Information SOCIAL HISTORY Never Assessed [...] History Received chemotherapy every 3 weeks at [facility] under Dr Billingsley - Chemotherapy completed/now [...]
--- OUTSIDE RECORDS SUMMARY | 2017-09-03 18:22 | XMS REPORT ---
Author Author ENRRIQUE FUENTES [facility] Address [address] [place] [address] Care Team Providers Care Vocational Nurse Name Role Phone ENRRIQUE FUENTES Unavailable PROBLEMS Type Condition ICD9-CM Code [id number] Code Onset Dates Condition Status SNOMED Code Problem Malignant neoplasm of upper-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 C50.412 Active 402828920 Problem Foot ulcer, left, limited to breakdown of skin L97.521 Active 96735447 Problem Dental caries on smooth surface penetrating into pulp K02.63 Active 491061565 Problem 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 Active 325389051 Problem Arthritis of right hip M16.11 Active 6525115086985999 Problem Hyperlipidemia LDL goal <70 E78.5 Active 58383616 Problem Chronic pain syndrome G89.4 Active 862353927 Problem Pain in right knee M25.561 Active 01085215 Problem GERD without esophagitis K21.9 Active 773138879 Problem Essential hypertension I10 Active 52404869 Problem Neuropathy G62.9 Active 949395304 Problem Hyperkalemia E87.5 Active 84283286 Problem longterm current use of insulin Z79.4 Active 410048099 Problem Chronic kidney disease, stage 4 (severe) N18.4 Active 232919723 Problem Type 2 diabetes mellitus with hyperglycemia E11.65 Active 355426366346418 ALLERGIES No Information SOCIAL HISTORY Never Assessed PLAN OF CARE VITAL SIGNS MEDICATIONS Medication Instructions Dosage Frequency Start Date End Date Duration Status FreeStyle Lite Test - TEST BLOOD SUGAR FOUR TIMES A DAY BEFORE MEALS AND AT BEDTIME 25 Active RESULTS No Results PROCEDURES No Known procedures IMMUNIZATIONS No Known Immunizations MEDICAL (GENERAL) HISTORY Type Description Date Medical History type II diabetes Medical History hypertension Medical History breast cancer- stage 3. Medical History Received chemotherapy every 3 weeks at [facility] under Dr Billingsley - Chemotherapy completed/now [...]
--- OUTSIDE RECORDS SUMMARY | 2017-09-03 18:22 | XMS REPORT ---
Author Author ENRRIQUE FUENTES [facility] Address [address] [place] [address] Care Team Providers Care Divine Healer Name Role Phone ENRRIQUE FUENTES Unavailable PROBLEMS Type Condition ICD9-CM Code [id number] Code Onset Dates Condition Status SNOMED Code Problem Malignant neoplasm of upper-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 C50.412 Active 883141320 Problem Foot ulcer, left, limited to breakdown of skin L97.521 Active 30325196 Problem Dental caries on smooth surface penetrating into pulp K02.63 Active 181180279 Problem 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 Active 136264591 Problem Arthritis of right hip M16.11 Active 4552053553285258 Problem Hyperlipidemia LDL goal <70 E78.5 Active 10710525 Problem Chronic pain syndrome G89.4 Active 542994351 Problem Pain in right knee M25.561 Active 27552675 Problem GERD without esophagitis K21.9 Active 087238293 Problem Essential hypertension I10 Active 23639772 Problem Neuropathy G62.9 Active 054006510 Problem Hyperkalemia E87.5 Active 58739920 Problem longterm current use of insulin Z79.4 Active 624843109 Problem Chronic kidney disease, stage 4 (severe) N18.4 Active 913513259 Problem Type 2 diabetes mellitus with hyperglycemia E11.65 Active 528784564769431 ALLERGIES Unknown Allergies SOCIAL HISTORY No smoking Hx information available PLAN OF CARE VITAL SIGNS MEDICATIONS Medication Instructions Dosage Frequency Start Date End Date Duration Status FreeStyle Lite Test - TEST BLOOD SUGAR FOUR TIMES A DAY BEFORE MEALS AND AT BEDTIME 25 Active RESULTS No Results PROCEDURES No Known procedures IMMUNIZATIONS No Known Immunizations
--- OUTSIDE RECORDS SUMMARY | 2017-09-03 18:22 | XMS REPORT ---
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.412 Active 109194537 Problem Foot ulcer, left, limited to breakdown of skin L97.521 Active 11316756 Problem Dental caries on smooth surface penetrating into pulp K02.63 Active 049617741 Problem 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 Active 367190201 Problem Arthritis of right hip M16.11 Active 4123634226846463 Problem Hyperlipidemia LDL goal <70 E78.5 Active 45280092 Problem Chronic pain syndrome G89.4 Active 336774309 Problem Pain in right knee M25.561 Active 61525208 Problem GERD without esophagitis K21.9 Active 016234277 Problem Essential hypertension I10 Active 92231450 Problem Neuropathy G62.9 Active 148479156 Problem Hyperkalemia E87.5 Active 44770829 Problem 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 current use of insulin Z79.4 Active 604358420 Problem Chronic kidney disease, stage 4 (severe) N18.4 Active 598095087 Problem Type 2 diabetes mellitus with hyperglycemia E11.65 Active 361838959061595 ALLERGIES Substance Reaction Event Type Date Status N.K.D.A. Unknown Non Drug Allergy Oct, Unknown SOCIAL HISTORY No smoking Hx information available PLAN OF CARE Activity Details Follow Up 3 Months Reason:DM/Pain VITAL SIGNS Height 68 in 2016-11-08 Weight 212.2 lbs 2016-11-08 Temperature 98.5 degrees Fahrenheit 2016-11-08 Heart Rate 76 bpm 2016-11-08 Respiratory Rate 20 2016-11-08 BMI 32.26 kg/m2 2016-11-08 Blood pressure systolic 96 mmHg 2016-11-08 Blood pressure diastolic 54 mmHg 2016-11-08 MEDICATIONS Medication Instructions Dosage Frequency Start Date End Date Duration Status Levemir FlexTouch 100 UNIT/ML Subcutaneous twice a day 30 units 12h 90 days Active Folic Acid 400 MCG Orally Once a day 1 tablet 24h Active Gabapentin 300 MG TAKE ONE CAPSULE BY MOUTH TWICE DAILY 30 Active Metoprolol Succinate ER 25 MG orally once a day 1 tablet 24h 30 Active Acetaminophen 500 MG Orally every 6 hrs 2 capsules as needed 6h Active Amlodipine Besylate 5 MG Orally Once a day 1 tablet 24h Active Tramadol HCl 50 mg Orally 2 times a day prn must last 4 weeks- APPT NEEDED FOR FUTHER REFILLS 1 tablet as needed Jun, Active Aspir-81 81 MG Orally Once a day 1 tablet 24h Active Fish Oil 1000 MG Orally Twice a day 1 capsule 12h Active Magnesium Oxide 400 MG Orally 2 times a day 1 capsule 12h Active Hydrochlorothiazide 25 MG TAKE ONE TABLET BY MOUTH ONCE DAILY 30 Active Keflex 500 MG Orally three times a day 1 capsule 8h Oct, Oct, 10 day(s) Active FreeStyle Lite Test - TEST BLOOD SUGAR FOUR TIMES A DAY BEFORE MEALS AND AT BEDTIME 25 Active Lisinopril 40 MG orally daily 1 tablet 24h 30 Active Vitamin D3 2000 UNIT Active Pantoprazole Sodium 40 MG TAKE ONE TABLET BY MOUTH ONCE DAILY 30 Active NovoLog Flexpen 100 UNIT/ML Subcutaneous 3 times daily with meals, per sliding scale as directed 30 days Active Atorvastatin Calcium 10 MG Orally Once a day 1 tablet 24h Active Lofibra 134 MG TAKE ONE CAPSULE BY MOUTH ONCE DAILY WITH A MEAL 30 Active Pen [place] 1/2" 29G X 12MM subcutaneously 5 times per day as directed Active Letrozole 2.5 MG Orally Once a day 1 tablet 24h Active RESULTS Name Result Date Reference Range A1C (IN HOUSE) 2016-11-08 A1C IN HOUSE 8.8 4.3 - 5.6 % Previous A1c 8.7 Lot [id number] Exp date PROCEDURES Procedure Date Ordered Related Diagnosis Body Site GLYCATED HEMOGLOBIN TEST Nov 08, 2016 Office Visit, Est Pt., Level 5 Nov 08, 2016 PPV23 (PNEUMOVAX) Nov 08, 2016 FLUARIX QUAD P-FREE 3 AND UP .50 2015Nov 08, 2016 IMMUNIZATION ADMIN, EACH ADD (please include units) Nov 08, 2016 SINGLE IMMUNIZATION ADMIN Nov 08, 2016 IMMUNIZATIONS Vaccine Route Administration Date Status FLUARIX QUAD P-FREE 3 AND UP .50 2016 IM Intramuscular Nov 08, 2016 Administered PPV23 (PNEUMOVAX) IM Intramuscular Nov 08, 2016 Administered
--- OUTSIDE RECORDS SUMMARY | 2017-09-03 18:23 | XMS REPORT ---
Author ENRRIQUE [facility] Address Unknown Phone Unavailable Care Team Providers Care County Extension Agent Name Role Phone ENRRIQUE FUENTES CP Unavailable Allergies, Adverse Reactions, Alerts Substance Reaction Event Type N.K.D.A. Info Not Available Non Drug Allergy Problems Problem Type Condition Code Onset Dates Condition Status Assessment Hip pain 719.45 Active Assessment Ingrown left greater toenail 703.0 Active Problem Hypertension 401.9 Active Assessment Diabetes mellitus 250.00 Active Problem DM w/o complication type II, uncontrolled 250.02 Active Assessment Personal history of antineoplastic chemotherapy V87.41 Active Assessment Back pain 724.5 Active Assessment DM w/o complication type II, uncontrolled 250.02 Active Assessment Breast cancer, left 174.9 Active Medications Medication Code System Code Instructions Start Date End Date Status Dosage NovoLog Flexpen [facility] [address]-36 100 UNIT/ML Subcutaneous 3 times daily with meals, per sliding scale as directed Aspir-[address] [facility] [address]-99 81 MG Orally Once a day 1 tablet NovoLog Flexpen [facility] [address]-84 100 UNIT/ML Subcutaneous 3 times daily with meals, per sliding scale April 15, 2015 as directed Hydrochlorothiazide [facility] [address]-00 25 MG Orally Once a day 1 tablet Folic Acid [facility] [address]-32 400 MCG Orally Once a day 1 tablet Potassium Chloride Marla ER [facility] [address]-16 20 MEQ Orally Twice a day 1 tablet Levemir FlexTouch [facility] [address]-00 100 UNIT/ML Subcutaneous Once a day 20 units Ondansetron HCl [facility] [address]-34 8 MG Orally every 8 hrs 1 tablet Metoprolol Succinate ER [facility] [address]-94 25 MG Orally Once a day 1 tablet Fish Oil [facility] [address]-37 1000 MG Orally Twice a day 1 capsule Gabapentin [facility] [address]-81 300 MG Orally 2 times a day 1 capsule Pantoprazole Sodium [facility] [address]-74 40 MG Orally Once a day 1 tablet Tramadol HCl [facility] [address]-23 50 MG Orally 2 times a day prn Jul 21, 2015 1 tablet as needed Meloxicam [facility] 22501402149 7.5 TAKE ONE TABLET BY MOUTH DAILY Lofibra [facility] [address]-04 134 MG Orally Once a day 1 capsule with a meal Magnesium Oxide [facility] [address]-30 400 MG Orally 2 times a day 1 capsule Keflex [facility] [address]-49 500 MG Orally 3 times a day Jul 20, 2015Jul 1 capsule Lisinopril [facility] [address]-02 40 MG Orally Once a day 1 tablet Ticagrelor [facility] [address]-41 90 MG Orally Twice a day 1 tablet Procedures Procedure Coding System Code Date Office Visit, Est Pt., Level 4 CPT-4 45551 Jul 20, 2015 GLYCATED HEMOGLOBIN TEST CPT-4 15030 Jul 20, 2015 Vital Signs Date/Time: Jul 20, 2015 Temperature 97.6 F Weight 202.2 lbs Height 68 in BMI 30.74 Index Blood Pressure Diastolic 78 mmHg Blood Pressure Systolic 122 mmHg Cardiac Monitoring Heart Rate 78 bpm Results Name Result Date Reference Range Unit Abnormality Flag A1C (IN HOUSE) Summary Purpose [employer]Works Submission
--- OUTSIDE RECORDS SUMMARY | 2017-09-03 18:24 | XMS REPORT ---
Author Author VEGA PICHARDO Organization [employer] Address Unknown Phone Unavailable Care Team Providers Care Loss Prevention Investigator Name Role Phone VEGA PICHARDO CP Unavailable Allergies No Known Allergies Problems Problem Type Condition Code Onset Dates Condition Status Problem Hypertension 401.9 Active Assessment Onychocryptosis L60.0 Active Problem DM w/o complication type II, uncontrolled 250.02 Active Assessment Onychomycosis B35.1 Active Medications No Known Medications Procedures Procedure Coding System Code Date Office Visit, Est Pt., Level 3 CPT-4 52760 Sep 10, 2015 DRAINAGE OF SKIN ABSCESS CPT-4 88835 Sep 10, 2015 Vital Signs Date/Time: Sep 10, 2015 Blood Pressure Diastolic 70 mmHg Blood Pressure Systolic 130 mmHg Height 68 in Results Name Result Date Reference Range Unit Abnormality Flag I/D SIMPLE ABSCESS Summary Purpose [employer]ClinicalWorks Submission
[2017-09-03 18:30] LABS: BILIRUBIN,URINE NEGATIVE (NEGATIVE); KETONES,URINE NEGATIVE (NEGATIVE); LEUKOCYTE ESTERASE ,URINE 1+ (NEGATIVE); NITRITE,URINE NEGATIVE (NEGATIVE); PH,URINE 6.5 (5-9); PROTEIN,URINE NEGATIVE (NEGATIVE); SQUAMOUS EPITHELIAL CELL,UR 0-2 /HPF; UROBILINOGEN,URINE NORMAL (NORMAL)
[2017-09-03] MEDS ORDERED: MECL-106 PO (21:06)
[2017-09-03] MEDS ORDERED: SCOP1PAT TD (21:06)
[2017-09-03 21:18] VITALS: BP 166/71
== END 2017-09-03 21:18 | disposition home or self-care (01) ==
LOC: EDUNIT# 17:01 → ER 17:03
DX: E11.22 Type 2 diabetes mellitus with diabetic chronic kidney disease (principal); I12.9 Hypertensive chronic kidney disease with stage 1 through stage 4 chronic kidney disease, or unspecified chronic kidney disease; N18.9 Chronic kidney disease, unspecified; E11.40 Type 2 diabetes mellitus with diabetic neuropathy, unspecified; E83.42 Hypomagnesemia; I25.2 Old myocardial infarction; I25.10 Atherosclerotic heart disease of native coronary artery without angina pectoris; E87.8 Other disorders of electrolyte and fluid balance, not elsewhere classified; Z87.442 Personal history of urinary calculi; Z85.3 Personal history of malignant neoplasm of breast; Z92.21 Personal history of antineoplastic chemotherapy; Z92.3 Personal history of irradiation; Z98.51 Tubal ligation status; Z95.5 Presence of coronary angioplasty implant and graft; Z87.891 Personal history of nicotine dependence; Z79.4 Long term (current) use of insulin; Z82.49 Family history of ischemic heart disease and other diseases of the circulatory system
CPT/HCPCS: 36415; 70450; 80053; 81000; 82962; 83735; 84484; 85025; 85610; 85730; 93005

== ENCOUNTER 2017-10-25 09:02 | Outpatient (RCR) | payer MEDICAID ==
[2017-08-02 09:16] LABS: BASOPHILS # (AUTO) 0.1 10^3/uL (0.0-0.1); BASOPHILS % (AUTO) 2 % (0-10); EOSINOPHILS # (AUTO) 0.3 10^3/uL (0.0-0.3); EOSINOPHILS % (AUTO) 4 % (0-10); HEMATOCRIT 34 % (35-52); HEMOGLOBIN 10.9 G/DL (11.5-16.0); LYMPHOCYTES # (AUTO) 1.5 X 10^3 (1.0-4.0); LYMPHOCYTES % (AUTO) 23 % (12-44); MEAN CORPUSCULAR HEMOGLOBIN 27 PG (25-34); MEAN CORPUSCULAR HGB CONC 32 G/DL (32-36); MEAN CORPUSCULAR VOLUME 86 FL (80-99); MEAN PLATELET VOLUME 12.2 FL (7.4-10.4); MONOCYTES # (AUTO) 0.5 X 10^3 (0.0-1.0); MONOCYTES % (AUTO) 7 % (0-12); NEUTROPHILS # (AUTO) 4.4 X 10^3 (1.8-7.8); NEUTROPHILS % (AUTO) 66 % (42-75); PLATELET COUNT 277 10^3/uL (130-400); RED BLOOD COUNT 3.98 10^6/uL (4.35-5.85); RED CELL DISTRIBUTION WIDTH 14.4 % (10.0-14.5); WHITE BLOOD COUNT 6.7 10^3/uL (4.3-11.0)
[2017-08-02 09:34] LABS: ALBUMIN 3.9 GM/DL (3.2-4.5); BILIRUBIN,TOTAL 0.2 MG/DL (0.1-1.0); CALCIUM 10.1 MG/DL (8.5-10.1); CREATININE SERUM 1.41 MG/DL (0.60-1.30); POTASSIUM 4.2 MMOL/L (3.6-5.0); TOTAL PROTEIN 7.6 GM/DL (6.4-8.2)
[2017-10-25 09:49] LABS: BASOPHILS # (AUTO) 0.1 10^3/uL (0.0-0.1); BASOPHILS % (AUTO) 1 % (0-10); EOSINOPHILS # (AUTO) 0.2 10^3/uL (0.0-0.3); EOSINOPHILS % (AUTO) 3 % (0-10); HEMATOCRIT 29 % (35-52); HEMOGLOBIN 10.7 G/DL (11.5-16.0); LYMPHOCYTES # (AUTO) 1.7 X 10^3 (1.0-4.0); LYMPHOCYTES % (AUTO) 22 % (12-44); MEAN CORPUSCULAR HEMOGLOBIN 28 PG (25-34); MEAN CORPUSCULAR HGB CONC 37 G/DL (32-36); MEAN CORPUSCULAR VOLUME 76 FL (80-99); MEAN PLATELET VOLUME 11.2 FL (7.4-10.4); MONOCYTES # (AUTO) 0.5 X 10^3 (0.0-1.0); MONOCYTES % (AUTO) 7 % (0-12); NEUTROPHILS # (AUTO) 4.9 X 10^3 (1.8-7.8); NEUTROPHILS % (AUTO) 67 % (42-75); PLATELET COUNT 268 10^3/uL (130-400); RED BLOOD COUNT 3.81 10^6/uL (4.35-5.85); RED CELL DISTRIBUTION WIDTH 14.2 % (10.0-14.5); WHITE BLOOD COUNT 7.4 10^3/uL (4.3-11.0)
[2017-10-25 10:15] LABS: ALBUMIN 3.8 GM/DL (3.2-4.5); BILIRUBIN,TOTAL 0.2 MG/DL (0.1-1.0); CALCIUM 10.3 MG/DL (8.5-10.1); CREATININE SERUM 1.65 MG/DL (0.60-1.30); POTASSIUM 4.6 MMOL/L (3.6-5.0); TOTAL PROTEIN 7.5 GM/DL (6.4-8.2)
== END 2017-10-31 | disposition home or self-care (01) ==
LOC: ONC 09:02
PROVIDERS: ATTEND Internal Medicine Hematology & Oncology
DX: C50.112 Malignant neoplasm of central portion of left female breast (principal); D64.9 Anemia, unspecified; E55.9 Vitamin D deficiency, unspecified; I25.10 Atherosclerotic heart disease of native coronary artery without angina pectoris; I10 Essential (primary) hypertension; E78.5 Hyperlipidemia, unspecified; E78.1 Pure hyperglyceridemia; E11.9 Type 2 diabetes mellitus without complications; I25.2 Old myocardial infarction; Z17.0 Estrogen receptor positive status [ER+]; Z90.12 Acquired absence of left breast and nipple; Z72.0 Tobacco use; Z79.4 Long term (current) use of insulin; Z79.899 Other long term (current) drug therapy
CPT/HCPCS: 36591; 80053; 82306; 85025; 96523

== ENCOUNTER → 2017-10-25 | Outpatient (CLI) | payer MEDICAID ==
[~2017-10-25] MED LIST changes: +MECL-106 PO; +SCOP1PAT TD
== END ==
LOC: LAB 09:03
PROVIDERS: ATTEND Nurse Practitioner Family
DX: N18.4 Chronic kidney disease, stage 4 (severe) (principal)

== ENCOUNTER → 2018-01-03 | Outpatient (CLI) | payer MEDICAID ==
[~2018-01-03] MED LIST changes: -SCOP1PAT TD; +SCOP1PAT11 TD
[2018-01-03 11:28] LABS: CHOLESTEROL 140 MG/DL (< 200); HDL CHOLESTEROL 34 MG/DL (40-60); TRIGLYCERIDES 195 MG/DL (<150); VLDL CHOLESTEROL 39 MG/DL (5-40)
== END ==
LOC: LAB 10:25
PROVIDERS: ATTEND Nurse Practitioner Family
DX: E78.5 Hyperlipidemia, unspecified (principal)
CPT/HCPCS: 80061

== ENCOUNTER → 2018-01-23 | Outpatient (CLI) | payer MEDICAID ==
[~2018-01-23] VITALS: Ht 172.7 cm; Wt 100.7 kg
[~2018-01-23] MED LIST changes: +REGADENOSON 0.4 MG/5 ML SYR (LEXISCAN) IV ONE
[2018-01-23] MEDS: CATHETER FLUSH 10 ML SYR IV PRN ×2 (12:29→13:20)
[2018-01-23 13:19] VITALS: BP 144/72
--- NOTE | 2018-01-23 21:04 | STRESS TEST ---
DATE OF SERVICE: 01/23/2018 LEXISCAN MYOVIEW STRESS TEST REPORT REFERRING PHYSICIAN: Marge Sewell DO at [facility]. Baseline heart rate is 74. Baseline blood pressure 180/91. Baseline EKG is sinus rhythm with no ischemic changes. In summary, the patient was injected with 10.22 mCi of technetium-99 Myoview and the resting images were obtained. Then, the patient received 0.4 mg of Lexiscan followed by 30.5 mCi of technetium-99 Myoview. Throughout the test, there were no EKG changes. The resting and stress images were reviewed and compared in the short axis, horizontal long axis and vertical long axis views. Review of the images showed breast attenuation with mild decreased uptake involving the mid to apical inferior wall with mild reversibility. SSS is 4, SDS 2, TID value 1.05. On the gated images, the left ventricle appeared to be normal size with normal contractility. Calculated ejection fraction 68%. CONCLUSION: 1. The patient tolerated Lexiscan well. 2. Breast attenuation with mild ischemia involving the inferior wall at the mid to apical segment with mild reversibility. 3. Normal left ventricular size with normal contractility. Calculated ejection fraction 68%. Job ID: [id number] DocumentID: [id number] Dictated Date: 01/23/2018 17:21:14 Mold Tooler Date: 01/23/2018 19:45:17 Dictated By: NEEMA EMMANUEL MD
== END ==
LOC: CARD 11:28
PROVIDERS: ATTEND Physician Assistant
DX: I25.10 Atherosclerotic heart disease of native coronary artery without angina pectoris (principal); E78.5 Hyperlipidemia, unspecified; I10 Essential (primary) hypertension; R06.02 Shortness of breath; I34.0 Nonrheumatic mitral (valve) insufficiency
CPT/HCPCS: 78452; 93017; 93306

== ENCOUNTER → 2018-01-24 | Outpatient (CLI) | payer MEDICAID ==
[~2018-01-24] MED LIST changes: -REGADENOSON 0.4 MG/5 ML SYR (LEXISCAN) IV ONE
--- NOTE | 2018-01-24 20:13 | Diagnostic Imaging Report ---
EXAMINATION: DEXA scan. INDICATION: Screening for osteoporosis. FINDINGS: The bone mineral density of the spine and left hip was measured. The right hip was not evaluated as there is now a total hip prosthesis in place. The study was compared to the prior exam of 12/23/2015. The T score for the spine is 1.6. On the prior exam, the T score was 3.4. This T score value is still well within normal limits. The T score for the left hip is 1.2. This is unchanged when compared to the prior exam. IMPRESSION: 1. There has been a decrease in the bone mineral density of the spine in the interval since the prior exam; however, the T score for both the spine and the left hip is well within normal limits. 2. There is now a total hip prosthesis in place on the right. Dictated by: Dictated on workstation # [id number]
--- NOTE | 2018-01-25 11:53 | Diagnostic Imaging Report ---
Indication: Screening. Procedure: Right mammogram Comparison: The study was compared to prior exams of 03/29/2017 and 12/23/2015. At this time there are no current complaints. The patient did have a left mastectomy for carcinoma in 2014. FIndings: There are scattered fibroglandular densities in the right breast which could obscure a lesion. Overall, there has been no significant change since the prior studies. There is no primary or secondary sign of malignancy noted. Impression: There is no evidence for malignancy. ACR BI-RADS Category 1: Negative. Result letter will be mailed to the patient. Note: At least 10% of breast cancer is not imaged by mammography. Dictated on workstation # [id number]
== END ==
LOC: RAD 08:54
PROVIDERS: ATTEND Nurse Practitioner Adult Health
DX: Z13.820 Encounter for screening for osteoporosis (principal); C50.112 Malignant neoplasm of central portion of left female breast; M81.0 Age-related osteoporosis without current pathological fracture; M85.88 Other specified disorders of bone density and structure, other site; E55.9 Vitamin D deficiency, unspecified; Z78.0 Asymptomatic menopausal state; Z96.641 Presence of right artificial hip joint
CPT/HCPCS: 77080

== ENCOUNTER → 2018-01-31 | Outpatient (CLI) | payer MEDICAID ==
[2018-01-31 11:52] LABS: CHOLESTEROL 176 MG/DL (< 200); HDL CHOLESTEROL 35 MG/DL (40-60); TRIGLYCERIDES 276 MG/DL (<150); VLDL CHOLESTEROL 55 MG/DL (5-40)
== END ==
LOC: LAB 10:13
PROVIDERS: ATTEND Physician Assistant
DX: I10 Essential (primary) hypertension (principal); E78.2 Mixed hyperlipidemia
CPT/HCPCS: 36415; 80061

== ENCOUNTER 2018-02-06 06:56 | Day surgery (SDC) | payer MEDICAID ==
[~2018-02-06] VITALS: Ht 175.3 cm; Wt 99.8 kg
[2018-02-06] VITALS (10 sets, daily range): BP systolic 113–178; BP diastolic 54–72
[2018-02-06] MEDS ORDERED: NS IV 1000 ML 1,000 ML ONE ×2 (07:04→09:44)
[2018-02-06] MEDS ORDERED: HEParin (CATH LAB) 2,000 ML IV ONE (07:04)
[2018-02-06] MEDS: NS IV 1000 ML 1,000 ML IV SCH ×2 (07:16→09:50)
[2018-02-06] MEDS ORDERED: CHOL5000 PO (07:49)
[2018-02-06] MEDS ORDERED: PANT40SU PO (07:49)
[2018-02-06] MEDS ORDERED: ASPI-983 PO (07:49)
[2018-02-06] MEDS ORDERED: FOLI0.8T PO (07:49)
[2018-02-06] MEDS ORDERED: ACET-77 PO (07:49)
[2018-02-06] MEDS ORDERED: METO-333 PO (07:49)
[2018-02-06] MEDS ORDERED: FISH1CAP15 PO (07:49)
[2018-02-06] MEDS ORDERED: FENO134C PO (07:49)
[2018-02-06] MEDS ORDERED: LORA10TA76 PO (07:50)
[2018-02-06 07:56] LABS: BILIRUBIN,URINE NEGATIVE (NEGATIVE); CLARITY,URINE CLEAR; COLOR,URINE YELLOW; GLUCOSE, URINE (UA) 1+ (NEGATIVE); KETONES,URINE NEGATIVE (NEGATIVE); LEUKOCYTE ESTERASE ,URINE 2+ (NEGATIVE); NITRITE,URINE NEGATIVE (NEGATIVE); PH,URINE 5 (5-9); PROTEIN,URINE NEGATIVE (NEGATIVE); UROBILINOGEN,URINE NORMAL (NORMAL)
[2018-02-06 07:58] LABS: HEMOGLOBIN 10.9 G/DL (11.5-16.0); MEAN PLATELET VOLUME 12.8 FL (7.4-10.4); RED BLOOD COUNT 3.81 10^6/uL (4.35-5.85); RED CELL DISTRIBUTION WIDTH 15.5 % (10.0-14.5); WHITE BLOOD COUNT 8.1 10^3/uL (4.3-11.0)
[2018-02-06 08:06] LABS: BACTERIA,URINE NEGATIVE /HPF; HYALINE CASTS, URINE RARE /LPF; SQUAMOUS EPITHELIAL CELL,UR 0-2 /HPF; WBC,URINE 0-2 /HPF
--- NOTE | 2018-02-06 08:13 | Diagnostic Imaging Report ---
INDICATION: Preop for heart catheterization. TIME OF EXAM: 7:22 AM Correlation is made with prior study 08/18/2015. FINDINGS: Right chest wall port has tip overlying the SVC. The heart size is stable. Lungs are clear. No infiltrates are seen. No effusion or pneumothorax is identified. IMPRESSION: No acute cardiopulmonary process is detected. Dictated by: Dictated on workstation # [id number]
[2018-02-06 08:16] LABS: ALBUMIN 3.9 GM/DL (3.2-4.5); BILIRUBIN,TOTAL 0.2 MG/DL (0.1-1.0); CALCIUM 10.1 MG/DL (8.5-10.1); CREATININE SERUM 1.73 MG/DL (0.60-1.30); POTASSIUM 4.9 MMOL/L (3.6-5.0); TOTAL PROTEIN 7.1 GM/DL (6.4-8.2)
[2018-02-06 08:40] LABS: PROTHROMBIN TIME PATIENT 13.2 SEC (12.2-14.7)
[2018-02-06] MEDS ORDERED: fentaNYL INJECTION 100 MCG/2 ML AMP ONE (09:20)
[2018-02-06] MEDS ORDERED: MIDAZOLAM 5 MG/5 ML (VERSED) VIAL ONE (09:20)
[2018-02-06] MEDS ORDERED: LIDOCAINE 1% INJ 50 ML (XYLOCAINE) VIAL ONE (09:20)
[2018-02-06] MEDS ORDERED: NS IV 1000 ML 1,000 ML IV SCH (09:56)
--- NOTE | 2018-02-06 09:56 | Cardiac Procedure Note-CS/ASA ---
Pre-Procedure Note Pre-Op Procedure Note H&P Reviewed The H&P was reviewed, patient examined and no changes noted. Date H&P Reviewed: Feb 06, 2018 Time H&P Reviewed: 09:55 Conscious Sedation Pre-Proced Time Reviewed: 09:55 ASA Class: 3 Airway Mallampati Classification: ([place] appropriate class) I. II. III, IV Lungs Heart ASA score ASA 1: a normal healthy patient ASA 2: a patient with a mild systemic disease (mid diabetes, controlled hypertension, obesity x ASA 3: a patient with a severe systemic disease that limits activity (angina , COPD, prior Myocardial infarction) ASA 4: a patient with an incapacitating disease that is a constant threat to life (CHF, renal failure) ASA 5: a moribund patient not expected to survive 24 hrs. (ruptured aneurysm) ASA 6: a declared brain patient whose organs are being harvested. For emergent operations, add the letter E after the classification Grade 3 Sedation Plan: Analgesia, Amnesia, Plan communicated to team members, Discussed options with patient/fam, Discussed risks with patient/fam Note The patient is an appropriate candidate to undergo the planned procedure, sedation, and anesthesia. The patient immediately re-assessed prior to indication. NEEMA EMMANUEL MD Feb 06, 2018 09:56
[2018-02-06] MEDS ORDERED: PATIENT MAY USE OWN MEDS, ALL PO SCH (10:00)
--- NOTE | 2018-02-06 10:05 | Cardiac Cath Report ---
Cardiac Cath Report Physician (s)/Authorization Rep (s) Physician NEEMA EMMANUEL MD Pre-Procedure Diagnosis Pre-Procedure Diagnosis: Coronary artery disease Post-Procedure Note Procedure Start Date: Feb 06, 2018 Name of Procedure: Left heart catheterization Findings/Procedure Note PROCEDURE NOTE: After explaining the procedure to the patient, all pros and cons were explained , all questions were answered. The patient signed the consent and then she was placed on the cardiac catheterization laboratory. Groin was prepped SL fashion local anesthesia was used. Sheath placed in the right femoral artery. Karen right and left catheter were used to access the coronary system. Karen right was used to access the left ventricular cavity, pressure was measured, left ventricular gram was not done to limit the contrast exposure. Pullback LV to aorta was done At the end of the procedure the sheath was removed. Closure device was used FINDINGS: Hemodynamics LV 144/23, end-diastolic pressure of 23 Aorta 158/88 mean of 108 ANATOMY: Left Main is free of obstructive disease Left Anterior Descending has [id number] disease at the midportion on her disease Left Circumflex , has 60-70 percent stenosis distally at the third marginal branch level, smaller artery, medical therapy is recommended Right Coronory Artery has a patent stent, all to moderate disease at the proximal and midportion. Nonobstructive disease LV Gram was not done, pressure was measured CONCLUSION: 1. [id number] coronary artery disease with patent stent in the right coronary artery, the circumflex artery has 60-70 percent stenosis distally at the third obtuse marginal branch level, small artery, medical therapy is recommended 2. Mildly elevated left ventricular end-diastolic pressure DISCUSSION AND RECOMMENDATION: Medical therapy, no intervention is warranted Anesthesia Type: Conscious Sedation Estimated blood loss (mL): 15 ml Contrast Amount: 16 ml Total Radiation Dose: 345 mGy Post-Procedure Diagnosis Post-operative diagnosis: Coronary artery disease Hypertension Hyperlipidemia Chest pain nonspecific etiology NEEMA EMMANUEL MD Feb 06, 2018 10:05
--- NOTE | 2018-02-06 10:06 | Discharge Inst-Post CATH ---
Discharge Inst-CATH Post Cardiac Cath D/C Inst Follow Up/Plan Appointment with Dr. Carver's office in 2-4 weeks CARDIAC CATH DISCHARGE INSTRUCTIONS *Hold Metformin for 48 hours post heart cath. ACTIVITY * Go Home directly and rest. * Limit activity of the leg (or wrist if it was used) for 7 days including aerobics, swimming, jogging, bicycling, etc. * Restrict stair-climbing for 7 days if possible, if not, climb up with your non -cath leg, then bring together on the same step. * Avoid lifting, pushing, pulling or excessive movement of the affected extremity for 7 days. * Customary sexual activity may be resumed after 2 days-use caution not to use a position that strains or causes pain to the affected extremity. * No driving for 24 hours. * NO SMOKING. * Avoid straining for bowel movements for 7 days. * Gentle walking on level ground is allowed. * Returning to work will depend on the type of procedure and the results. Your doctor will discuss this with you. CALL YOUR DOCTOR FOR ANY OF THE FOLLOWING: *If bleeding from the puncture site occurs- Apply gentle pressure to site with clean cloth and call your doctor or EMS. * If a knot or lump forms under the skin, increases in size, or causes pain. * If bruising appears to be worsening or moving further down your leg instead of disappearing. * Temperature above 101 F. CARE OF YOUR GROIN INCISION; * Bruising or purple discoloration of the skin near the puncture site is common. * You may shower only, no bathtub bathing for 5 days. Be careful to avoid slipping as your leg may feel stiff. * If a closure device was used on your femoral artery, please see the attached guide regarding care of the device and your leg. * REMOVE the dressing from your groin the next day after your procedure in the shower. CARE OF YOUR WRIST INCISION; * Bruising or purple discoloration of the skin near the puncture site is common. * You may shower. * DO NOT submerge wrist. * Remove dressing in 24 hours. NEEMA CRAVER MD Feb 06, 2018 10:06
== END 2018-02-06 14:30 | disposition home or self-care (01) ==
LOC: CATH 06:56 → SURG 10:20 → CATH 14:30
PROVIDERS: ATTEND Internal Medicine Cardiovascular Disease
DX: I25.10 Atherosclerotic heart disease of native coronary artery without angina pectoris (principal); I12.9 Hypertensive chronic kidney disease with stage 1 through stage 4 chronic kidney disease, or unspecified chronic kidney disease; E78.5 Hyperlipidemia, unspecified; R07.9 Chest pain, unspecified; N18.3 Chronic kidney disease, stage 3 (moderate); Z85.3 Personal history of malignant neoplasm of breast; I25.2 Old myocardial infarction; E11.9 Type 2 diabetes mellitus without complications; E78.1 Pure hyperglyceridemia; D64.9 Anemia, unspecified; Z87.891 Personal history of nicotine dependence; Z79.4 Long term (current) use of insulin; Z79.899 Other long term (current) drug therapy
CPT/HCPCS: 36415; 71045; 80053; 81000; 82962; 85027; 85610; 85730; 87081; 93458

== ENCOUNTER 2018-03-14 10:19 | Outpatient (RCR) | payer MEDICAID ==
[2018-01-31 10:39] LABS: BASOPHILS # (AUTO) 0.1 10^3/uL (0.0-0.1); BASOPHILS % (AUTO) 1 % (0-10); EOSINOPHILS # (AUTO) 0.2 10^3/uL (0.0-0.3); EOSINOPHILS % (AUTO) 3 % (0-10); HEMATOCRIT 35 % (35-52); HEMOGLOBIN 11.4 G/DL (11.5-16.0); LYMPHOCYTES % (AUTO) 25 % (12-44); MEAN CORPUSCULAR HEMOGLOBIN 28 PG (25-34); MEAN CORPUSCULAR HGB CONC 33 G/DL (32-36); MEAN CORPUSCULAR VOLUME 86 FL (80-99); MEAN PLATELET VOLUME 12.5 FL (7.4-10.4); MONOCYTES # (AUTO) 0.5 X 10^3 (0.0-1.0); MONOCYTES % (AUTO) 6 % (0-12); NEUTROPHILS # (AUTO) 5.2 X 10^3 (1.8-7.8); NEUTROPHILS % (AUTO) 65 % (42-75); PLATELET COUNT 256 10^3/uL (130-400); RED BLOOD COUNT 4.02 10^6/uL (4.35-5.85); RED CELL DISTRIBUTION WIDTH 15.3 % (10.0-14.5)
[2018-01-31 10:53] LABS: ALBUMIN 4.2 GM/DL (3.2-4.5); BILIRUBIN,TOTAL 0.2 MG/DL (0.1-1.0); CALCIUM 10.3 MG/DL (8.5-10.1); CREATININE SERUM 1.41 MG/DL (0.60-1.30); POTASSIUM 4.5 MMOL/L (3.6-5.0); TOTAL PROTEIN 7.6 GM/DL (6.4-8.2)
[~2018-03-14 10:19] MED LIST changes: +ACET-77 PO; +ASPI-983 PO; +CHOL5000 PO; +FENO134C PO; +FISH1CAP15 PO; +FOLI0.8T PO; +LORA10TA76 PO; +METO-333 PO; +PANT40SU PO
== END 2018-04-03 | disposition home or self-care (01) ==
LOC: ONC 10:19
PROVIDERS: ATTEND Internal Medicine Hematology & Oncology
DX: C50.112 Malignant neoplasm of central portion of left female breast (principal); D64.9 Anemia, unspecified; E55.9 Vitamin D deficiency, unspecified; I25.10 Atherosclerotic heart disease of native coronary artery without angina pectoris; I10 Essential (primary) hypertension; E78.5 Hyperlipidemia, unspecified; E78.1 Pure hyperglyceridemia; E11.9 Type 2 diabetes mellitus without complications; I25.2 Old myocardial infarction; Z17.0 Estrogen receptor positive status [ER+]; Z90.12 Acquired absence of left breast and nipple; Z72.0 Tobacco use; Z79.4 Long term (current) use of insulin; Z79.899 Other long term (current) drug therapy
CPT/HCPCS: 36591; 80053; 82306; 82728; 83540; 85025; 96523

== ENCOUNTER 2018-06-07 10:14 | Outpatient (RCR) | payer MEDICAID ==
[~2018-06-07 10:14] MED LIST changes: -AMLO5TAB2 PO; +AMLO5TAB7 PO; -CHOL200014 PO; +CHOL200085 PO
== END 2018-07-04 15:31 | disposition home or self-care (01) ==
LOC: ONC 10:14
PROVIDERS: ATTEND Internal Medicine Hematology & Oncology
DX: C50.112 Malignant neoplasm of central portion of left female breast (principal); D64.9 Anemia, unspecified; E55.9 Vitamin D deficiency, unspecified; I25.10 Atherosclerotic heart disease of native coronary artery without angina pectoris; I10 Essential (primary) hypertension; E78.5 Hyperlipidemia, unspecified; E78.1 Pure hyperglyceridemia; E11.9 Type 2 diabetes mellitus without complications; I25.2 Old myocardial infarction; Z17.0 Estrogen receptor positive status [ER+]; Z90.12 Acquired absence of left breast and nipple; Z72.0 Tobacco use; Z79.4 Long term (current) use of insulin; Z79.899 Other long term (current) drug therapy; Z45.2 Encounter for adjustment and management of vascular access device
CPT/HCPCS: 96523

== ENCOUNTER 2018-07-05 10:18 | Outpatient (RCR) | payer MEDICAID ==
[2018-07-05 10:46] LABS: BASOPHILS # (AUTO) 0.1 10^3/uL (0.0-0.1); BASOPHILS % (AUTO) 2 % (0-10); EOSINOPHILS # (AUTO) 0.3 10^3/uL (0.0-0.3); EOSINOPHILS % (AUTO) 4 % (0-10); HEMATOCRIT 33 % (35-52); LYMPHOCYTES # (AUTO) 2.1 X 10^3 (1.0-4.0); LYMPHOCYTES % (AUTO) 32 % (12-44); MEAN CORPUSCULAR HEMOGLOBIN 29 PG (25-34); MEAN CORPUSCULAR HGB CONC 33 G/DL (32-36); MEAN CORPUSCULAR VOLUME 88 FL (80-99); MEAN PLATELET VOLUME 12.2 FL (7.4-10.4); MONOCYTES # (AUTO) 0.6 X 10^3 (0.0-1.0); MONOCYTES % (AUTO) 9 % (0-12); NEUTROPHILS # (AUTO) 3.5 X 10^3 (1.8-7.8); NEUTROPHILS % (AUTO) 54 % (42-75); PLATELET COUNT 227 10^3/uL (130-400); RED BLOOD COUNT 3.76 10^6/uL (4.35-5.85); RED CELL DISTRIBUTION WIDTH 14.2 % (10.0-14.5); WHITE BLOOD COUNT 6.6 10^3/uL (4.3-11.0)
[2018-07-05 11:05] LABS: ALBUMIN 3.9 GM/DL (3.2-4.5); BILIRUBIN,TOTAL 0.3 MG/DL (0.1-1.0); CALCIUM 10.1 MG/DL (8.5-10.1); CREATININE SERUM 1.82 MG/DL (0.60-1.30); POTASSIUM 4.7 MMOL/L (3.6-5.0)
== END 2018-07-21 | disposition home or self-care (01) ==
LOC: ONC 10:18
PROVIDERS: ATTEND Internal Medicine Hematology & Oncology
DX: C50.112 Malignant neoplasm of central portion of left female breast (principal); D64.9 Anemia, unspecified; E55.9 Vitamin D deficiency, unspecified; I25.10 Atherosclerotic heart disease of native coronary artery without angina pectoris; I10 Essential (primary) hypertension; E78.5 Hyperlipidemia, unspecified; E78.1 Pure hyperglyceridemia; E11.9 Type 2 diabetes mellitus without complications; I25.2 Old myocardial infarction; Z17.0 Estrogen receptor positive status [ER+]; Z90.12 Acquired absence of left breast and nipple; Z72.0 Tobacco use; Z79.4 Long term (current) use of insulin; Z79.899 Other long term (current) drug therapy; Z45.2 Encounter for adjustment and management of vascular access device
CPT/HCPCS: 36591; 80053; 85025

== ENCOUNTER 2018-07-26 06:36 | Outpatient (CLI) | payer MEDICAID ==
[~2018-07-26] VITALS: Ht 175.3 cm; Wt 104.3 kg
[2018-07-26] MEDS ORDERED: INSU100I14 SQ (11:38)
[2018-07-26] MEDS ORDERED: MAGN400T50 PO (11:38)
[2018-07-26] MEDS ORDERED: HYDR25TA4 PO (11:38)
[2018-07-26] MEDS ORDERED: INSU100I10 SQ (11:41)
== END 2018-07-26 11:47 | disposition home or self-care (01) ==
LOC: PREOP 06:36
PROVIDERS: ATTEND Surgery
DX: Z01.818 Encounter for other preprocedural examination (principal)

== ENCOUNTER 2018-07-29 06:07 | Day surgery (SDC) | payer MEDICAID ==
[~2018-07-29] VITALS: Ht 175.3 cm; Wt 104.3 kg
[~2018-07-29 06:07] MED LIST changes: +HYDR25TA4 PO; +INSU100I10 SQ; +MAGN400T50 PO
--- OUTSIDE RECORDS SUMMARY | 2018-07-29 06:19 | XMS REPORT ---
Author Author TAMAR LR Organization [facility] Address [address] [place] [address] Care Team Providers Care Cleat Thrower Name Role Phone KING TAMAR Unavailable PROBLEMS Type Condition ICD9-CM Code KQS72-PG Code Onset Dates Condition Status SNOMED Code Problem Malignant neoplasm of upper-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 C50.412 Active 454303209 Problem Neuropathy G62.9 Active 580792659 Problem Essential hypertension I10 Active 84950033 Problem Hyperkalemia E87.5 Active 95196116 Problem Chronic kidney disease, stage 4 (severe) N18.4 Active 829880415 Problem Type 2 diabetes mellitus without complications E11.9 Active 031628889 Problem Arthritis of right hip M16.11 Active 3874829549442032 Problem Chronic pain syndrome G89.4 Active 627074835 Problem half-way current use of insulin Z79.4 Active 257488431 Problem GERD without esophagitis K21.9 Active 385484449 Problem Hyperlipidemia LDL goal <70 E78.5 Active 62484596 ALLERGIES Substance Reaction Event Type Date Status Codeine Sulfate Unknown Drug Allergy Jun, Active ENCOUNTERS Encounter Location Date Diagnosis [place] [id number] [place] [address] 16578- 7896 Jul, Type 2 diabetes mellitus without complications E11.9 ; Encounter for immunization Z23 ; half-way current use of insulin Z79.4 ; Essential hypertension I10 and Malignant neoplasm of upper-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 C50.412 [facility] [id number] [place] [address] 07591- 9679 Jun, Well woman exam with routine gynecological exam Z01.419 [facility] [address] [place] [id number] [place] [address] 73233- 3829 May, Type 2 diabetes mellitus with hyperglycemia E11.65 [place] [address] [id number] [address] 47[address] May, [facility] [address] [address] May, Type 2 diabetes mellitus with hyperglycemia E11.65 [facility] [address] [address] 9851 Apr, Type 2 diabetes mellitus with hyperglycemia E11.65 [facility] [address] [id number] [place] [address] 15755- 8594 Apr, Type 2 diabetes mellitus with hyperglycemia E11.65 [facility] [address] [address] 99[address] Apr, [facility] [address] [id number] [place] [address] 37771- 1737 Mar, [facility] [id number] [place] [address] 21131- 8953 Mar, Type 2 diabetes mellitus with hyperglycemia E11.65 ; Essential hypertension I10 ; Chronic kidney disease, stage 4 (severe) N18.4 and Neuropathy G62.9 [facility] [address] [address] 12[address] Mar, Type 2 diabetes mellitus with hyperglycemia E11.65 [facility] [address] [address] 3206 February, Chronic kidney disease, stage 4 (severe) N18.4 [facility] [address] [address] 87[address] February, [facility] [address] [address] 17[address] February, [facility] [id number] [address]- 1335 Jan, Type 2 diabetes mellitus with hyperglycemia E11.65 [facility] [address] [address]- 7990 Dec, Type 2 diabetes mellitus with hyperglycemia E11.65 [place] [address] [address] 8199 Dec, Type 2 diabetes mellitus with hyperglycemia E11.65 [place] [id number] [place] [address] 16419- 2184 15 Dec, 2017 Type 2 diabetes mellitus with hyperglycemia E11.65 [place] [address] [id number] [place] [address] 19890- 8956 Dec, Essential hypertension I10 ; Chronic kidney disease, stage 4 (severe) N18.4 ; half-way current use of insulin Z79.4 ; Type 2 diabetes mellitus with hyperglycemia E11.65 ; Chronic pain syndrome G89.4 ; Hyperlipidemia LDL goal <70 E78.5 ; GERD without esophagitis K21.9 and Neuropathy G62.9 [place] [address] [id number] [place] [address] 66807- 8279 Nov, [place] [address] [address] [id number] [place] [address] 04114- 7146 Oct, [place] [address] [address] [id number] [place] [address] 30025- 8965 Oct, Pre-operative examination Z01.818 and Chronic kidney disease , stage 4 (severe) N18.4 [place] [address] [address] 20[address] Sep, [place] [address] [address] [id number] [place] [address] 78428- 5789 Sep, Essential hypertension I10 [place] [id number] [place] [address] 83626- 4057 Sep, Chronic pain syndrome G89.4 [place] [address] [id number] [place] [address] 28315- 7646 Aug, Type 2 diabetes mellitus with hyperglycemia E11.65 ; 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 ; Essential hypertension I10 ; Chronic kidney disease, stage 4 (severe) N18.4 ; Chronic pain syndrome G89.4 ; Hyperlipidemia LDL goal <70 E78.5 ; GERD without esophagitis K21.9 ; Neuropathy G62.9 and Vertigo R42 [place] [address] [id number] [place] [address] 27776- 6560 15 Aug, 2017 [place] [address] [address] [id number] [place] [address] 64740- 8219 Aug, [place] [address] [address] [id number] [place] [address] 82881- 9074 07 Aug, 2017 Chronic pain syndrome G89.4 [place] [address] [address] [id number] [place] [address] 91932- 9012 Jul, Chronic pain syndrome G89.4 [place] [address] [id number] [place] [address] 05439- 9778 Jun, Type 2 diabetes mellitus with hyperglycemia E11.65 [place] [address] [id number] [place] [address] 38275- 0607 Jun, Preoperative examination Z01.818 [place] [address] [address] [id number] [place] [address] 12097- 4258 Jun, Chronic pain syndrome G89.4 [place] [address] [address] [id number] [place] [address] 70172- 5556 May, Type 2 diabetes mellitus with hyperglycemia E11.65 [place] [address] [id number] [place] [address] 57891- 0725 May, Chronic pain syndrome G89.4 [place] [address] [address] [id number] [place] [address] 02871- 5322 Apr, Type 2 diabetes mellitus with hyperglycemia E11.65 ; half-way current use of insulin Z79.4 ; Essential hypertension I10 ; Malignant neoplasm of upper-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 C50.412 ; Neuropathy G62.9 ; Chronic kidney disease, stage 4 (severe) N18.4 ; Chronic pain syndrome G89.4 ; Hyperlipidemia LDL goal <70 E78.5 ; GERD without esophagitis K21.9 ; Arthritis of right hip M16.11 and Pain in right knee M25.561 [place] [address] [address] 7520 Apr, Type 2 diabetes mellitus with hyperglycemia E11.65 [place] [id number] [place] [address] 18170- 2729 Apr, Chronic pain syndrome G89.4 [place] [address] [address] [id number] [place] [address] 22268- 3090 Apr, 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 [place] [id number] [place] [address] 85612- 9231 Mar, Type 2 diabetes mellitus with hyperglycemia E11.65 ; half-way current use of insulin Z79.4 ; Essential hypertension I10 ; Malignant neoplasm of upper-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 C50.412 ; Neuropathy G62.9 ; Chronic kidney disease, stage 4 (severe) N18.4 ; Chronic pain syndrome G89.4 ; Hyperlipidemia LDL goal <70 E78.5 ; GERD without esophagitis K21.9 ; Arthritis of right hip M16.11 and Pain in right knee M25.561 [place] [id number] [place] [address] 36278- 6317 February, Chronic pain syndrome G89.4 [facility] [id number] [place] [address] [id number] February, Dental caries K02.9 [place] [id number] [place] [address] 17898- 3853 Jan, Type 2 diabetes mellitus with hyperglycemia E11.65 [place] [id number] [place] [address] 51153- 9915 Jan, Type 2 diabetes mellitus with hyperglycemia E11.65 ; half-way current use of insulin Z79.4 ; Essential hypertension I10 ; Malignant neoplasm of upper-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 C50.412 ; Neuropathy G62.9 ; Chronic kidney disease, stage 4 (severe) N18.4 ; Chronic pain syndrome G89.4 ; Hyperlipidemia LDL goal <70 E78.5 and GERD without esophagitis K21.9 [facility] [address] [address]- 0193 Jan, Type 2 diabetes mellitus with hyperglycemia E11.65 [facility] [id number] [place] [address] 40386- 0057 Dec, Chronic pain syndrome G89.4 [facility] [id number] [place] [address] 22427- 8501 Nov, Type 2 diabetes mellitus with hyperglycemia E11.65 [facility] [id number] [place] [address] 44767- 2604 Nov, Type 2 diabetes mellitus with hyperglycemia E11.65 [facility] [address] [id number] [place] [address] 75102- 9049 Nov, [facility] [address] [id number] [place] [address] 67996- 6374 Nov, Chronic pain syndrome G89.4 [facility] [address] [place] [id number] [place] [address] [id number] Nov, Dental caries K02.9 [facility] [address] [id number] [place] [address] 14886- 1615 Oct, Type 2 diabetes mellitus with hyperglycemia E11.65 ; Encounter for immunization Z23 ; Chronic kidney disease, stage 4 (severe) N18.4 ; half-way current use of insulin Z79.4 ; Essential hypertension I10 ; Neuropathy G62.9 ; Malignant neoplasm of upper-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 C50.412 ; Chronic pain syndrome G89.4 and Tooth infection K04.7 [facility] [address] [address]- 0958 Oct, Type 2 diabetes mellitus with hyperglycemia E11.65 [facility] [id number] [place] [address] 10014- 2976 Sep, [facility] [id number] [place] [address] 02385- 0218 Sep, Chronic kidney disease, stage 4 (severe) N18.4 [facility] [address] [address]- 1174 Aug, [facility] [id number] [place] [address] 50381- 9431 Aug, Type 2 diabetes mellitus with hyperglycemia E11.65 [facility] [address] [id number] Aug, Dental examination Z01.20 [facility] [id number] [place] [address] 01078- 2474 Jul, Chronic kidney disease, stage 4 (severe) N18.4 [facility] [address] [id number] [place] [address] 88051- 3590 Jul, [place] [address] [id number] [place] [address] 24083- 8581 Jul, Type 2 diabetes mellitus with hyperglycemia E11.65 ; Chronic kidney disease, stage 4 (severe) N18.4 ; 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 ; Essential hypertension I10 ; Neuropathy G62.9 and Malignant neoplasm of upper-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 C50.412 [place] [id number] [place] [address] 71964- 2080 Jun, [facility] [address] [address]- 5826 May, [facility] [id number] [place] [address] 02445- 0060 Apr, [facility] [id number] [place] [address] 05774- 8110 Apr, Type 2 diabetes mellitus with hyperglycemia E11.65 and Chronic kidney disease, stage 4 (severe) N18.4 [facility] [address] [address]- 4261 Apr, Type 2 diabetes mellitus with hyperglycemia E11.65 [facility] [id number] [place] [address] 60115- 8241 Mar, [facility] [id number] [place] [address] 85279- 0218 Mar, Type 2 diabetes mellitus with hyperglycemia E11.65 ; 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 ; Neuropathy G62.9 and Foot ulcer, left, limited to breakdown of skin L97.521 [facility] [address] [id number] February, Dental examination Z01.20 [facility] [id number] [place] [address] 70419 -5950 February, Open toe wound, initial encounter S91.109A [facility] [address] [id number] [place] [address] 38918- 0133 February, [facility] [address] [id number] [place] [address] 54564- 8595 February, [facility] [address] [address] [id number] [place] [address] 33244- 0193 February, Hyperkalemia E87.5 [facility] [address] [id number] [place] [address] 10939- 9442 February, Hyperkalemia E87.5 [facility] [id number] [place] [address] 57236- 2123 February, Hyperkalemia E87.5 [facility] [id number] [place] [address] 33365- 9821 Jan, [facility] [id number] [place] [address] 50287- 7532 Dec, [facility] [id number] [place] [address] 92027- 0890 Dec, [facility] [id number] [place] [address] 41750- 9196 Dec, Type 2 diabetes mellitus with hyperglycemia E11.65 ; half-way current use of insulin Z79.4 ; Essential hypertension I10 ; Malignant neoplasm of upper-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 C50.412 ; Neuropathy G62.9 and Dental caries on smooth surface penetrating into pulp K02.63 [place] [address] [id number] [place] [address] 69152- 2874 Dec, [place] [address] [address] [id number] [place] [address] 43734- 2843 Nov, [place] [address] 62076- 8462 Nov, [place] [address] 06382- 0630 Oct, Onychocryptosis L60.0 [place] [address] [id number] [place] [address] 95619- 3130 Oct, [place] [address] 93846- 4384 Sep, Type 2 diabetes mellitus with hyperglycemia E11.65 ; half-way current use of insulin Z79.4 ; Essential hypertension I10 ; Malignant neoplasm of upper-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 C50.412 and Neuropathy G62.9 [place] [address] [id number] [place] [address] 65438- 9578 Sep, [place] [address] [address] [id number] [place] [address] 32089- 1425 Aug, Onychocryptosis L60.0 and Onychomycosis B35.1 [place] [address] [address] [id number] [place] [address] 13767- 6875 Aug, [place] [address] [id number] [place] [address] 77538- 2127 Aug, [place] [address] [address] [id number] [place] [address] 06811- 6953 Jul, Pneumonia of right middle lobe due to infectious organism J18.9 [place] [address] 32862- 0366 Jul, [place] [address] [place] [id number] 9619 Jul, [place] [address] [address] [id number] [place] [address] 251067- 6810 Jul, [place] [address] [place] [address] 839218- 5880 Jun, Diabetes mellitus 250.00 ; DM w/o complication type II, uncontrolled 250.02 ; Breast cancer, left 174.9 ; Personal history of antineoplastic chemotherapy V87.41 ; Back pain 724.5 ; Hip pain 719.45 and Ingrown left greater toenail 703.0 [place] [address] [place] [address] 131101- 4206 Apr, Diabetes mellitus 250.00 ; Breast cancer, left 174.9 ; Personal history of antineoplastic chemotherapy V87.41 ; Back pain 724.5 and Hip pain 719.45 [place] [address] [place] [address] 84774- 7024 Apr, [place] [address] [id number] [place] [address] 83517- 7988 Mar, Diabetes mellitus 250.00 ; Breast cancer, left 174.9 ; Personal history of antineoplastic chemotherapy V87.41 ; Back pain 724.5 and Hip pain 719.45 [place] [address] [place] [address] 95746- 3787 Mar, DM w/o complication type II, uncontrolled 250.02 ; Hypertension 401.9 and Breast cancer, left 174.9 IMMUNIZATIONS No Known Immunizations SOCIAL HISTORY Never Assessed REASON FOR VISIT Well Woman Exam. FLORIN Bowles, PAP only had breast exam with Dr. Mendoza on Jul 05 PLAN OF CARE Activity Details Follow Up 1 Year Reason:annual female physical VITAL SIGNS Height 68 in 2018-07-17 Weight 227.2 lbs 2018-07-17 Temperature 98.5 degrees Fahrenheit 2018-07-17 Heart Rate 86 bpm 2018-07-17 Respiratory Rate 18 2018-07-17 BMI 34.54 kg/m2 2018-07-17 Blood pressure systolic 136 mmHg 2018-07-17 Blood pressure diastolic 60 mmHg 2018-07-17 MEDICATIONS Medication Instructions Dosage Frequency Start Date End Date Duration Status Aspir-81 81 MG Orally Once a day 1 tablet 24h Active Magnesium Oxide 400 mg Orally 3 times a day 1 capsule 8h Active FreeStyle Lite Test - USE ONE STRIP TO TEST FOUR TIMES A DAY BEFORE MEALS AND AT BEDTIME 25 Active Atorvastatin Calcium 10 MG TAKE ONE TABLET BY MOUTH ONCE DAILY 30 Active Vitamin D3 5000 UNIT Orally Once a day 24h Active Lisinopril 40 MG TAKE ONE TABLET BY MOUTH ONCE DAILY 30 Active Amlodipine Besylate 5 MG TAKE ONE TABLET BY MOUTH ONCE DAILY 30 Active Roller Walker - rolling walker with seat Active Metoprolol Tartrate 25 MG TAKE ONE-HALF TABLET BY MOUTH TWICE DAILY WITH FOOD (TO REPLACE SUCCINATE) Active Gabapentin 300 MG TAKE ONE CAPSULE BY MOUTH TWICE DAILY 30 Active Hydrochlorothiazide 25 MG TAKE ONE TABLET BY MOUTH ONCE DAILY 30 Active Pen [place] 1/2" 29 gauge subcutaneously 5 times per day as directed 20 Active Pen [place] 1/2" 29G X 12MM subcutaneously 5 times per day as directed Active Pantoprazole Sodium 40 mg Orally Once a day 1 tablet 24h 30 Active NovoLog Flexpen 100 UNIT/ML Subcutaneous 3 times daily with meals, per sliding scale 14 units Active Fish Oil 1000 MG Orally three times a day 1 capsule 8h Active Folic Acid 400 MCG Orally Once a day 1 tablet 24h Active Lantus SoloStar 100 UNIT/ML Subcutaneous Once a day 50 units 24h Apr, Active Letrozole 2.5 MG Orally Once a day 1 tablet 24h Active Acetaminophen 500 MG Orally every 6 hrs 2 capsules as needed 6h Active Lofibra 134 MG TAKE ONE CAPSULE BY MOUTH ONCE DAILY WITH A MEAL 30 Active RESULTS No Results PROCEDURES Procedure Date Ordered Result Body Site SPECIMEN HANDLING Jul 17, 2018 Bacterial Vaginosis In House Jul 17, 2018 LAB NOT BILLED BY [facility] Jul 17, 2018 INSTRUCTIONS MEDICATIONS ADMINISTERED No Known Medications MEDICAL (GENERAL) HISTORY Type Description Date Medical History type II diabetes Medical History hypertension Medical History breast cancer- stage 3. Medical History Received chemotherapy every 3 weeks at [facility] under Dr Billingsley - Chemotherapy completed/now taking letrozole x10 years. Medical History CAD Medical History Hyperlipidemia Medical History Pulmonary HTN with PAP of 39 per Card 2015 Medical History Dental caries on smooth surface penetrating into pulp Medical History Foot ulcer, left, limited to breakdown of skin Medical History CKD GFR July Referred to Nephrology but didn't keep appointment Surgical History left mastectomy 01/2015 Surgical History lymph node removal x6 01/2015 Surgical History cholecystectomy Surgical History tubal ligation Surgical History carotid endarterectomy Surgical History port a cath placement 02/2015 Surgical History DENTAL--PLEASE VERIFY TEETH NUMBERS THAT NEED EXTRACTED DENTAL Surgical History Colonoscopy 4 tubular adenomas due 2018 Surgical History Right hip replacement 10/2017 Surgical History Left hip replacement 02/2018 Hospitalization History stent placement 04/2015 Hospitalization History right hip replacement 11/08 Hospitalization History Left hip replacement 02/2018
--- OUTSIDE RECORDS SUMMARY | 2018-07-29 06:20 | XMS REPORT ---
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 Name Role Phone BHAVANA QUINTERO Unavailable PROBLEMS Type Condition ICD9-CM Code CXC50-ER Code Onset Dates Condition Status SNOMED Code Problem residential current use of insulin Z79.4 Active 393365530 Problem Malignant neoplasm of upper-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 C50.412 Active 441644162 Problem Type 2 diabetes mellitus with hyperglycemia E11.65 Active 448115187273955 Problem Chronic kidney disease, stage 4 (severe) N18.4 Active 994480519 Problem Hyperkalemia E87.5 Active 78034959 Problem Essential hypertension I10 Active 35784310 Problem Neuropathy G62.9 Active 217857589 Problem Pre-operative examination Z01.818 Active 326177588 Problem 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 Active 071998414 Problem Hyperlipidemia LDL goal <70 E78.5 Active 36658219 Problem Chronic pain syndrome G89.4 Active 597154703 Problem Arthritis of right hip M16.11 Active 3858100690977323 Problem GERD without esophagitis K21.9 Active 242720504 ALLERGIES No Information ENCOUNTERS Encounter Location Date Diagnosis [place] [id number] [place] [address] 67187- 1593 May, Type 2 diabetes mellitus with hyperglycemia E11.65 [facility] [id number] [address] May, [place] [id number] [place] [address] 22528- 2971 May, Type 2 diabetes mellitus with hyperglycemia E11.65 [facility] [id number] [address] 3546 Apr, Type 2 diabetes mellitus with hyperglycemia E11.65 [facility] [address], [place] [address] 9210 Apr, Type 2 diabetes mellitus with hyperglycemia E11.65 [facility] [address], [place] [address] 5176 Apr, [facility] [address] [place] [id number] [place] [address] 54253- 3330 Mar, [facility] [id number] [place] [address] 10284- 0653 Mar, Type 2 diabetes mellitus with hyperglycemia E11.65 ; Essential hypertension I10 ; Chronic kidney disease, stage 4 (severe) N18.4 and Neuropathy G62.9 [facility] [id number] [place] [address] 10328- 8107 Mar, Type 2 diabetes mellitus with hyperglycemia E11.65 [facility] [id number] [place] [address] 87467- 1568 February, Chronic kidney disease, stage 4 (severe) N18.4 [facility] [address] [address] 3[address] February, [facility] [id number] [place] [address] 67366- 8976 February, [facility] [address], [place] [address] 5968 Jan, Type 2 diabetes mellitus with hyperglycemia E11.65 [facility] [address], [place] [address] 3779 Dec, Type 2 diabetes mellitus with hyperglycemia E11.65 [facility] [address], [place] [address] 9721 Dec, Type 2 diabetes mellitus with hyperglycemia E11.65 [facility] [address] [address] 9842 Dec, Type 2 diabetes mellitus with hyperglycemia E11.65 [facility] [id number] [place] [address] 76557- 3165 Dec, Essential hypertension I10 ; Chronic kidney disease, stage 4 (severe) N18.4 ; manager terminal current use of insulin Z79.4 ; Type 2 diabetes mellitus with hyperglycemia E11.65 ; Chronic pain syndrome G89.4 ; Hyperlipidemia LDL goal <70 E78.5 ; GERD without esophagitis K21.9 and Neuropathy G62.9 [place] [address] [place] [address] [id number] [place] [address] 69968- 5321 Nov, [place] [address] 27695- 3862 Oct, [place] [address] 52897- 1206 Oct, Pre-operative examination Z01.818 and Chronic kidney disease , stage 4 (severe) N18.4 [place] [id number] [place] [address] 68889- 6848 Sep, [place] [address] [place] [address] [id number] [place] [address] 18465- 0790 Sep, Essential hypertension I10 [place] [id number] [place] [address] 82353- 9865 Sep, Chronic pain syndrome G89.4 [place] [address] [place] [id number] [place] [address] 61446- 4128 Aug, Type 2 diabetes mellitus with hyperglycemia E11.65 ; manager terminal current use of insulin Z79.4 ; Essential hypertension I10 ; Chronic kidney disease, stage 4 (severe) N18.4 ; Chronic pain syndrome G89.4 ; Hyperlipidemia LDL goal <70 E78.5 ; GERD without esophagitis K21.9 ; Neuropathy G62.9 and Vertigo R42 [place] [address] [place] [id number] [place] [address] 19673- 7259 15 Aug, 2017 [place] [address] [place] [id number] [place] [address] 54069- 9379 Aug, [place] [address] [place] [address]- 3680 Aug, Chronic pain syndrome G89.4 [place] [address] [place] [id number] [place] [address] 57240- 8813 Jul, Chronic pain syndrome G89.4 [place] [address] [place] [id number] [place] [address] 75054- 5054 Jun, Type 2 diabetes mellitus with hyperglycemia E11.65 [place] [address] [place] [id number] [place] [address] 79579- 4637 Jun, Preoperative examination Z01.818 [place] [address] [place] [id number] [place] [address] 25191- 4228 Jun, Chronic pain syndrome G89.4 [place] [address] [place] [id number] [place] [address] 16246- 1274 May, Type 2 diabetes mellitus with hyperglycemia E11.65 [place] [address] [place] [id number] [place] [address] 19355- 1011 May, Chronic pain syndrome G89.4 [place] [address] [place] [id number] [place] [address] 78734- 1678 Apr, Type 2 diabetes mellitus with hyperglycemia E11.65 ; manager terminal current use of insulin Z79.4 ; Essential hypertension I10 ; Malignant neoplasm of upper-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 C50.412 ; Neuropathy G62.9 ; Chronic kidney disease, stage 4 (severe) N18.4 ; Chronic pain syndrome G89.4 ; Hyperlipidemia LDL goal <70 E78.5 ; GERD without esophagitis K21.9 ; Arthritis of right hip M16.11 and Pain in right knee M25.561 [place] [address] [place] [id number] [place] [address] 78393- 7026 Apr, Type 2 diabetes mellitus with hyperglycemia E11.65 [place] [id number] [place] [address] 70661- 2363 Apr, Chronic pain syndrome G89.4 [place] [address] [place] [id number] [place] [address] 31126- 2375 Apr, 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 [place] [id number] [place] [address] 86683- 5415 Mar, Type 2 diabetes mellitus with hyperglycemia E11.65 ; manager terminal current use of insulin Z79.4 ; Essential hypertension I10 ; Malignant neoplasm of upper-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 C50.412 ; Neuropathy G62.9 ; Chronic kidney disease, stage 4 (severe) N18.4 ; Chronic pain syndrome G89.4 ; Hyperlipidemia LDL goal <70 E78.5 ; GERD without esophagitis K21.9 ; Arthritis of right hip M16.11 and Pain in right knee M25.561 [place] [id number] [place] [address] 91383- 6413 February, Chronic pain syndrome G89.4 [facility] [address] [id number] [place] [address] [id number] February, Dental caries K02.9 [place] [id number] [place] [address] 56753- 7230 Jan, Type 2 diabetes mellitus with hyperglycemia E11.65 [place] [id number] [place] [address] 03539- 4922 Jan, Type 2 diabetes mellitus with hyperglycemia E11.65 ; manager terminal current use of insulin Z79.4 ; Essential hypertension I10 ; Malignant neoplasm of upper-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 C50.412 ; Neuropathy G62.9 ; Chronic kidney disease, stage 4 (severe) N18.4 ; Chronic pain syndrome G89.4 ; Hyperlipidemia LDL goal <70 E78.5 and GERD without esophagitis K21.9 [place] [address] [place] [address] [id number] [place] [address] 26046- 3448 Jan, Type 2 diabetes mellitus with hyperglycemia E11.65 [place] [id number] [place] [address] 10175- 2562 Dec, Chronic pain syndrome G89.[address] 27676- 9963 Nov, Type 2 diabetes mellitus with hyperglycemia E11.65 [facility] [id number] [place] [address] 18895- 5491 Nov, Type 2 diabetes mellitus with hyperglycemia E11.65 [facility] [id number] [place] [address] 61366- 1783 Nov, [facility] [address] 84598- 7117 Nov, Chronic pain syndrome G89.4 [facility] [id number] [place] [address] [id number] Nov, Dental caries K02.9 [place] [address] [place] [id number] [place] [address] 12530- 7344 Oct, Type 2 diabetes mellitus with hyperglycemia E11.65 ; Encounter for immunization Z23 ; Chronic kidney disease, stage 4 (severe) N18.4 ; manager terminal current use of insulin Z79.4 ; Essential hypertension I10 ; Neuropathy G62.9 ; Malignant neoplasm of upper-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 C50.412 ; Chronic pain syndrome G89.4 and Tooth infection K04.7 [place] [id number] [place] [address] 88702- 1261 Oct, Type 2 diabetes mellitus with hyperglycemia E11.65 [place] [id number] [place] [address] 50789- 8665 Sep, [facility] [address] [place] [id number] [place] [address] 74801- 6990 Sep, Chronic kidney disease, stage 4 (severe) N18.4 [facility] [address] [place] [id number] [place] [address] 38493- 8367 Aug, [facility] [address] [place] [id number] [place] [address] 05981- 2469 Aug, Type 2 diabetes mellitus with hyperglycemia E11.65 [facility] [id number] [place] [address] [phone] Aug, Dental examination Z01.20 [place] [address] [place] [address] [id number] [place] [address] 42759- 8234 Jul, Chronic kidney disease, stage 4 (severe) N18.4 [facility] [address] [place] [id number] [place] [address] 33785- 4962 Jul, [place] [address] [place] [id number] [place] [address] 08856- 4591 Jul, Type 2 diabetes mellitus with hyperglycemia E11.65 ; Chronic kidney disease, stage 4 (severe) N18.4 ; residential current use of insulin Z79.4 ; Essential hypertension I10 ; Neuropathy G62.9 and Malignant neoplasm of upper-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 C50.412 [place] [address] [place] [id number] [place] [address] 73899- 5849 Jun, [place] [address] 70850- 1492 May, [place] [address] [place] [id number] [place] [address] 66489- 3346 Apr, [place] [id number] [place] [address] 26170- 7381 Apr, Type 2 diabetes mellitus with hyperglycemia E11.65 and Chronic kidney disease, stage 4 (severe) N18.4 [place] [id number] [place] [address] 40226- 3930 Apr, Type 2 diabetes mellitus with hyperglycemia E11.65 [place] [address] [place] [id number] [place] [address] 00891- 4113 Mar, [place] [id number] [place] [address] 94380- 7268 Mar, Type 2 diabetes mellitus with hyperglycemia E11.65 ; residential current use of insulin Z79.4 ; Neuropathy G62.9 and Foot ulcer, left, limited to breakdown of skin L97.521 [facility] [address] [id number] [place] [address] [id number] February, Dental examination Z01.20 [facility] [id number], [place] [address] February, Open toe wound, initial encounter S91.109A [facility] [id number], [place] [address]- 0520 February, [facility] [address] [place] [id number] [place] [address] 06770- 9468 February, [facility] [id number] [place] [address] 97104- 7528 February, Hyperkalemia E87.5 [facility] [address] [place] [id number] [place] [address] 21319- 8204 February, Hyperkalemia E87.5 [facility] [id number] [place] [address] 72060- 3449 February, Hyperkalemia E87.5 [facility] [id number], [place] [address]- 1238 Jan, [facility] [address] [place] [id number] [place] [address] 51850- 9411 Dec, [facility] [id number], [place] [address]- 6089 Dec, [facility] [address], [place] [address]- 4366 Dec, Type 2 diabetes mellitus with hyperglycemia E11.65 ; manager terminal current use of insulin Z79.4 ; Essential hypertension I10 ; Malignant neoplasm of upper-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 C50.412 ; Neuropathy G62.9 and Dental caries on smooth surface penetrating into pulp K02.63 [facility] [id number], [place] [address]- 3232 Dec, [facility] [id number], [place] [address]- 3746 Nov, [facility] [id number], [place] [address]- 8643 Nov, [facility] [address] [id number] [place] [address] 88073- 6371 Oct, Onychocryptosis L60.0 [facility] [address] [id number] [place] [address] 85818- 0150 Oct, [facility] [address] [place] [id number] [place] [address] 30389- 6730 Sep, Type 2 diabetes mellitus with hyperglycemia E11.65 ; residential current use of insulin Z79.4 ; Essential hypertension I10 ; Malignant neoplasm of upper-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 C50.412 and Neuropathy G62.9 [facility] [address] [place] [id number] [place] [address] 54666- 3983 Sep, [facility] [address] [place] [address] [id number] [place] [address] 52313- 5761 Aug, Onychocryptosis L60.0 and Onychomycosis B35.1 [facility] [address] [place] [id number] [place] [address] 95613- 2552 Aug, [facility] [address] [place] [id number] [place] [address] 93618- 0846 Aug, [facility] [address] [place] [id number] [place] [address] 29518- 7266 Jul, Pneumonia of right middle lobe due to infectious organism J18.9 [facility] [id number] [place] [address] 42578- 8972 Jul, [facility] [address] [place] [id number] [place] [address] 36897- 8514 Jul, [facility] [address] [place] [id number] [place] [address] 39651- 3471 Jul, [facility] [address] [place] [id number] [place] [address] 86103- 9764 Jun, Diabetes mellitus 250.00 ; DM w/o complication type II, uncontrolled 250.02 ; Breast cancer, left 174.9 ; Personal history of antineoplastic chemotherapy V87.41 ; Back pain 724.5 ; Hip pain 719.45 and Ingrown left greater toenail 703.0 [facility] [id number], [place] [address]- 9467 Apr, Diabetes mellitus 250.00 ; Breast cancer, left 174.9 ; Personal history of antineoplastic chemotherapy V87.41 ; Back pain 724.5 and Hip pain 719.45 [facility] [id number] [place] [address] 24230- 1931 Apr, [facility] [id number] [place] [address] 63833- 5594 Mar, Diabetes mellitus 250.00 ; Breast cancer, left 174.9 ; Personal history of antineoplastic chemotherapy V87.41 ; Back pain 724.5 and Hip pain 719.45 [facility] [address] [place] [address] 44994- 4587 Mar, DM w/o complication type II, uncontrolled 250.02 ; Hypertension 401.9 and Breast cancer, left 174.9 IMMUNIZATIONS No Known Immunizations SOCIAL HISTORY Never Assessed REASON FOR VISIT PLAN OF CARE VITAL SIGNS MEDICATIONS Medication Instructions Dosage Frequency Start Date End Date Duration Status Lantus SoloStar 100 UNIT/ML Subcutaneous Once a day 50 units 24h Apr, Active RESULTS No Results PROCEDURES No Known procedures INSTRUCTIONS MEDICATIONS ADMINISTERED No Known Medications MEDICAL (GENERAL) HISTORY Type Description Date Medical History type II diabetes Medical History hypertension Medical History breast cancer- stage 3. Medical History Received chemotherapy every 3 weeks at [facility] under Dr Billingsley - Chemotherapy completed/now [...]
--- OUTSIDE RECORDS SUMMARY | 2018-07-29 06:20 | XMS REPORT ---
Author Author BHAVANA QUINTERO [facility] Address [address] [place] [address] Care Team Providers Care Regulatory Coordinator Name Role Phone BHAVANA QUINTERO Unavailable PROBLEMS Type Condition ICD9-CM Code KHN73-IQ Code Onset Dates Condition Status SNOMED Code Problem senior living current use of insulin Z79.4 Active 644761367 Problem Malignant neoplasm of upper-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 C50.412 Active 739617245 Problem Type 2 diabetes mellitus with hyperglycemia E11.65 Active 128997025740171 Problem Chronic kidney disease, stage 4 (severe) N18.4 Active 530307612 Problem Hyperkalemia E87.5 Active 69238214 Problem Essential hypertension I10 Active 40854925 Problem Neuropathy G62.9 Active 868275176 Problem Pre-operative examination Z01.818 Active 861751157 Problem 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 Active 121305437 Problem Hyperlipidemia LDL goal <70 E78.5 Active 94474283 Problem Chronic pain syndrome G89.4 Active 612376427 Problem Arthritis of right hip M16.11 Active 0537972676007526 Problem GERD without esophagitis K21.9 Active [id number] ALLERGIES No Information ENCOUNTERS Encounter Location Date Diagnosis [facility] [id number] [place] [address] 65565- 9462 Jul, [facility] [id number] [place] [address] 80360- 8617 Jun, [facility] [id number] [place] [address] 25093- 3079 May, Type 2 diabetes mellitus with hyperglycemia E11.65 [facility] [id number] [place] [address] 10875- 2271 May, [facility] [id number] [place] [address] 14463- 2690 May, Type 2 diabetes mellitus with hyperglycemia E11.65 [facility] [address] [address] 6266 Apr, Type 2 diabetes mellitus with hyperglycemia E11.65 [facility] [address] [address] 6731 Apr, Type 2 diabetes mellitus with hyperglycemia E11.65 [facility] [id number] [place] [address] 00592- 8609 Apr, [facility] [id number] [place] [address] 27505- 3456 Mar, [facility] [id number] [place] [address] 05693- 1852 Mar, Type 2 diabetes mellitus with hyperglycemia E11.65 ; Essential hypertension I10 ; Chronic kidney disease, stage 4 (severe) N18.4 and Neuropathy G62.9 [facility] [address] [address] 8862 Mar, Type 2 diabetes mellitus with hyperglycemia E11.65 [facility] [address], [place] [address] 3410 February, Chronic kidney disease, stage 4 (severe) N18.4 [facility] [address] [address] 24[address] February, [facility] [address] [address] 0322 February, [facility] [address] [address] 0620 Jan, Type 2 diabetes mellitus with hyperglycemia E11.65 [facility] [address] [address] Dec, Type 2 diabetes mellitus with hyperglycemia E11.65 [facility] [address] [address] 2552 Dec, Type 2 diabetes mellitus with hyperglycemia E11.65 [facility] [address] [place] [address] 28216- 6417 Dec, Type 2 diabetes mellitus with hyperglycemia E11.65 [facility] [id number] [place] [address] 60842- 4263 Dec, Essential hypertension I10 ; Chronic kidney disease, stage 4 (severe) N18.4 ; 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 ; Type 2 diabetes mellitus with hyperglycemia E11.65 ; Chronic pain syndrome G89.4 ; Hyperlipidemia LDL goal <70 E78.5 ; GERD without esophagitis K21.9 and Neuropathy G62.9 [facility] [id number] [place] [address] 75103- 0038 Nov, [facility] [id number] [place] [address] 39802- 8219 Oct, [facility] [id number] [place] [address] 09843- 9525 Oct, Pre-operative examination Z01.818 and Chronic kidney disease , stage 4 (severe) N18.4 [facility] [id number] [place] [address] 33901- 7357 Sep, [facility] [id number] [place] [address] 97023- 6587 Sep, Essential hypertension I10 [facility] [id number] [place] [address] 13950- 1092 Sep, Chronic pain syndrome G89.4 [facility] [id number] [place] [address] 59481- 2661 Aug, Type 2 diabetes mellitus with hyperglycemia E11.65 ; 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 ; Essential hypertension I10 ; Chronic kidney disease, stage 4 (severe) N18.4 ; Chronic pain syndrome G89.4 ; Hyperlipidemia LDL goal <70 E78.5 ; GERD without esophagitis K21.9 ; Neuropathy G62.9 and Vertigo R42 [facility] [address] [address] 0176 15 Aug, 2017 [facility] [id number] [place] [address] 67504- 2941 Aug, [facility] [id number] [place] [address] 98753- 4498 07 Aug, 2017 Chronic pain syndrome G89.4 [facility] [id number] [place] [address] 90126- 7417 Jul, Chronic pain syndrome G89.4 [facility] [id number] [place] [address] 19029- 4883 Jun, Type 2 diabetes mellitus with hyperglycemia E11.65 [facility] [id number] [place] [address] 97673- 7299 Jun, Preoperative examination Z01.818 [facility] [id number] [place] [address] 47578- 5702 Jun, Chronic pain syndrome G89.4 [facility] [id number] [place] [address] 18725- 0541 May, Type 2 diabetes mellitus with hyperglycemia E11.65 [facility] [id number] [place] [address] 07718- 1235 May, Chronic pain syndrome G89.4 [facility] [id number] [place] [address] 73731- 5051 Apr, Type 2 diabetes mellitus with hyperglycemia E11.65 ; 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 ; Essential hypertension I10 ; Malignant neoplasm of upper-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 C50.412 ; Neuropathy G62.9 ; Chronic kidney disease, stage 4 (severe) N18.4 ; Chronic pain syndrome G89.4 ; Hyperlipidemia LDL goal <70 E78.5 ; GERD without esophagitis K21.9 ; Arthritis of right hip M16.11 and Pain in right knee M25.561 [facility] [address] [place] [address] 37553- 7464 Apr, Type 2 diabetes mellitus with hyperglycemia E11.65 [facility] [address] [place] [address] 74671- 7212 Apr, Chronic pain syndrome G89.4 [facility] [id number] [place] [address] 71057- 6773 Apr, 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 [facility] [id number] [place] [address] 23234- 8301 Mar, Type 2 diabetes mellitus with hyperglycemia E11.65 ; senior living current use of insulin Z79.4 ; Essential hypertension I10 ; Malignant neoplasm of upper-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 C50.412 ; Neuropathy G62.9 ; Chronic kidney disease, stage 4 (severe) N18.4 ; Chronic pain syndrome G89.4 ; Hyperlipidemia LDL goal <70 E78.5 ; GERD without esophagitis K21.9 ; Arthritis of right hip M16.11 and Pain in right knee M25.561 [facility] [id number] [place] [address] 75847- 4121 February, Chronic pain syndrome G89.4 [facility] [id number] [place] [address] [phone] February, Dental caries K02.9 [facility] [id number] [place] [address] 48381- 6365 Jan, Type 2 diabetes mellitus with hyperglycemia E11.65 [facility] [id number] [place] [address] 43510- 4607 Jan, Type 2 diabetes mellitus with hyperglycemia E11.65 ; senior living current use of insulin Z79.4 ; Essential hypertension I10 ; Malignant neoplasm of upper-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 C50.412 ; Neuropathy G62.9 ; Chronic kidney disease, stage 4 (severe) N18.4 ; Chronic pain syndrome G89.4 ; Hyperlipidemia LDL goal <70 E78.5 and GERD without esophagitis K21.9 [facility] [address] [place] [address] 33661- 4819 Jan, Type 2 diabetes mellitus with hyperglycemia E11.65 [facility] [address], [place] [address]- 7015 Dec, Chronic pain syndrome G89.4 [facility] [address] [place] [address] 16925- 1347 Nov, Type 2 diabetes mellitus with hyperglycemia E11.65 [facility] [address] [place] [address] 52434- 7171 Nov, Type 2 diabetes mellitus with hyperglycemia E11.65 [facility] [id number] [place] [address] 61983- 5376 Nov, [facility] [id number] [place] [address] 09463- 0548 Nov, Chronic pain syndrome G89.4 [facility] [address] [place] [address] [phone] Nov, Dental caries K02.9 [facility] [address] [place] [address] 83363- 9938 Oct, Type 2 diabetes mellitus with hyperglycemia E11.65 ; Encounter for immunization Z23 ; Chronic kidney disease, stage 4 (severe) N18.4 ; senior living current use of insulin Z79.4 ; Essential hypertension I10 ; Neuropathy G62.9 ; Malignant neoplasm of upper-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 C50.412 ; Chronic pain syndrome G89.4 and Tooth infection K04.7 [facility] [address], [place] [address]- 1409 Oct, Type 2 diabetes mellitus with hyperglycemia E11.65 [facility] [address], [place] [address]- 7084 Sep, [facility] [id number] [place] [address] 93276- 3964 Sep, Chronic kidney disease, stage 4 (severe) N18.4 [facility] [address] [place] [address] 15388- 3015 Aug, [facility] [id number], [place] [address]- 7664 Aug, Type 2 diabetes mellitus with hyperglycemia E11.65 [facility] [address] [id number] Aug, Dental examination Z01.20 [facility] [address] [place] [address] 98857- 6655 Jul, Chronic kidney disease, stage 4 (severe) N18.4 [facility] [address], [place] [address]- 4702 Jul, [facility] [id number] [place] [address] 92658- 1461 Jul, Type 2 diabetes mellitus with hyperglycemia E11.65 ; Chronic kidney disease, stage 4 (severe) N18.4 ; 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 ; Essential hypertension I10 ; Neuropathy G62.9 and Malignant neoplasm of upper-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 C50.412 [facility] [address], [place] [address]- 1636 Jun, [facility] [id number] [place] [address] 11127- 5305 May, [facility] [address], [place] [address]- 6130 Apr, [facility] [address], [place] [address]- 4368 Apr, Type 2 diabetes mellitus with hyperglycemia E11.65 and Chronic kidney disease, stage 4 (severe) N18.4 [facility] [address], [place] [address]- 4054 Apr, Type 2 diabetes mellitus with hyperglycemia E11.65 [facility] [address], [place] [address]- 0307 Mar, [facility] [address], [place] [address]- 5092 Mar, Type 2 diabetes mellitus with hyperglycemia E11.65 ; 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 ; Neuropathy G62.9 and Foot ulcer, left, limited to breakdown of skin L97.521 [facility] [address] [address] February, Dental examination Z01.20 [facility] [address] [place] [address] 08821 -7718 February, Open toe wound, initial encounter S91.109A [facility] [id number] [place] [address] 58158- 7016 February, [facility] [id number] [place] [address] 03055- 3531 February, [facility] [id number] [place] [address] 78112- 2026 February, Hyperkalemia E87.5 [facility] [id number] [place] [address] 02352- 2071 February, Hyperkalemia E87.5 [facility] [id number] [place] [address] 84255- 1059 February, Hyperkalemia E87.5 [facility] [id number] [place] [address] 00935- 6358 Jan, [facility] [id number] [place] [address] 83197- 1342 Dec, [facility] [id number] [place] [address] 39834- 6022 Dec, [facility] [id number] [place] [address] 08278- 2214 Dec, Type 2 diabetes mellitus with hyperglycemia E11.65 ; 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 ; Essential hypertension I10 ; Malignant neoplasm of upper-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 C50.412 ; Neuropathy G62.9 and Dental caries on smooth surface penetrating into pulp K02.63 [facility] [address], [place] [address]- 8901 Dec, [facility] [id number] [place] [address] 09080- 7150 Nov, [facility] [id number] [place] [address] 95532- 6445 Nov, [facility] [id number] [place] [address] 63925- 9680 Oct, Onychocryptosis L60.0 [facility] [id number] [place] [address] 22533- 0628 Oct, [facility] [id number] [place] [address] 13153- 5879 Sep, Type 2 diabetes mellitus with hyperglycemia E11.65 ; 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 ; Essential hypertension I10 ; Malignant neoplasm of upper-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 C50.412 and Neuropathy G62.9 [facility] [id number] [place] [address] 22693- 1331 Sep, [facility] [id number] [place] [address] 52323- 1249 Aug, Onychocryptosis L60.0 and Onychomycosis B35.1 [facility] [address] [place] [address] 38009- 2405 Aug, [facility] [id number] [place] [address] 29848- 8404 Aug, [facility] [address] [place] [address] 62216- 3677 Jul, Pneumonia of right middle lobe due to infectious organism J18.9 [facility] [address] [place] [address] 11364- 5774 Jul, [facility] [id number] [place] [address] 42607- 4579 Jul, [facility] [address] [place] [address] 18206- 4296 Jul, [facility] [id number] [place] [address] 310647- 5386 Jun, Diabetes mellitus 250.00 ; DM w/o complication type II, uncontrolled 250.02 ; Breast cancer, left 174.9 ; Personal history of antineoplastic chemotherapy V87.41 ; Back pain 724.5 ; Hip pain 719.45 and Ingrown left greater toenail 703.0 [facility] [id number] [place] [address] 83329- 0857 Apr, Diabetes mellitus 250.00 ; Breast cancer, left 174.9 ; Personal history of antineoplastic chemotherapy V87.41 ; Back pain 724.5 and Hip pain 719.45 [facility] [id number] [place] [address] 90006- 8846 Apr, [facility] [id number] [place] [address] 59290- 6519 Mar, Diabetes mellitus 250.00 ; Breast cancer, left 174.9 ; Personal history of antineoplastic chemotherapy V87.41 ; Back pain 724.5 and Hip pain 719.45 [facility] [address] [place] [address] [phone]- 9686 Mar, DM w/o complication type II, uncontrolled 250.02 ; Hypertension 401.9 and Breast cancer, left 174.9 IMMUNIZATIONS No Known Immunizations SOCIAL HISTORY Never Assessed REASON FOR VISIT PLAN OF CARE VITAL SIGNS MEDICATIONS Medication Instructions Dosage Frequency Start Date End Date Duration Status Pen Paul [employer]s 1/2" 29G X 12MM subcutaneously 5 times per day as directed Active RESULTS No Results PROCEDURES No Known procedures INSTRUCTIONS MEDICATIONS ADMINISTERED No Known Medications MEDICAL (GENERAL) HISTORY Type Description Date Medical History type II diabetes Medical History hypertension Medical History breast cancer- stage 3. Medical History Received chemotherapy every 3 weeks at [facility] under Dr Billingsley - Chemotherapy completed/now taking [...]
--- OUTSIDE RECORDS SUMMARY | 2018-07-29 06:20 | XMS REPORT ---
Author Author BHAVANA QUINTERO [facility] Address [address] [place] [address] Care Team Providers Care Chair Inspector And Leveler Name Role Phone BHAVANA QUINTERO Unavailable PROBLEMS Type Condition ICD9-CM Code TWS69-UL Code Onset Dates Condition Status SNOMED Code Problem MCC current use of insulin Z79.4 Active 595266286 Problem Malignant neoplasm of upper-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 C50.412 Active 792121459 Problem Type 2 diabetes mellitus with hyperglycemia E11.65 Active 322903951807695 Problem Chronic kidney disease, stage 4 (severe) N18.4 Active 015358750 Problem Hyperkalemia E87.5 Active 74291188 Problem Essential hypertension I10 Active 19883172 Problem Neuropathy G62.9 Active 324774984 Problem Pre-operative examination Z01.818 Active 520169989 Problem 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 Active 529394402 Problem Hyperlipidemia LDL goal <70 E78.5 Active 67993803 Problem Chronic pain syndrome G89.4 Active 826832686 Problem Arthritis of right hip M16.11 Active 7174584364264503 Problem GERD without esophagitis K21.9 Active 066359498 ALLERGIES No Information ENCOUNTERS Encounter Location Date Diagnosis [facility], [place] [id number] [place] [address] 92820- 2164 Jul, [facility], [place] [id number] [place] [address] 86706- 4980 Jun, [facility], [place] [id number] [place] [address] 23167- 1595 May, Type 2 diabetes mellitus with hyperglycemia E11.65 [facility], [place] [address] [place] [address] 65556- 7719 May, [facility], [place] [id number] [place] [address] 86532- 7582 May, Type 2 diabetes mellitus with hyperglycemia E11.65 [facility], [place] [address], [place] [address] 8865 Apr, Type 2 diabetes mellitus with hyperglycemia E11.65 [facility], [place] [address], [place] [address] 6121 Apr, Type 2 diabetes mellitus with hyperglycemia E11.65 [facility], [place] [id number] [place] [address] 23784- 6940 Apr, [facility], [place] [address] [place] [address] 70932- 8774 Mar, [facility], [place] [id number] [place] [address] 91814- 9574 Mar, Type 2 diabetes mellitus with hyperglycemia E11.65 ; Essential hypertension I10 ; Chronic kidney disease, stage 4 (severe) N18.4 and Neuropathy G62.9 [facility] [address] [address] 5374 Mar, Type 2 diabetes mellitus with hyperglycemia E11.65 [facility] [address] [address] 9878 February, Chronic kidney disease, stage 4 (severe) N18.4 [facility], [place] [address] [address] 5851 February, [facility], [place] [address] [address] 4573 February, [facility], [place] [address] [address] 6077 Jan, Type 2 diabetes mellitus with hyperglycemia E11.65 [facility], [place] [address] [address] 5739 Dec, Type 2 diabetes mellitus with hyperglycemia E11.65 [facility], [place] [address] [address] 0004 Dec, Type 2 diabetes mellitus with hyperglycemia E11.65 [facility] [address] [place] [address] 48567- 0638 Dec, Type 2 diabetes mellitus with hyperglycemia E11.65 [facility] [id number] [place] [address] 18464- 3218 Dec, Essential hypertension I10 ; Chronic kidney disease, stage 4 (severe) N18.4 ; 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 ; Type 2 diabetes mellitus with hyperglycemia E11.65 ; Chronic pain syndrome G89.4 ; Hyperlipidemia LDL goal <70 E78.5 ; GERD without esophagitis K21.9 and Neuropathy G62.9 [facility] [id number] [place] [address] 75032- 9151 Nov, [facility] [id number] [place] [address] 06337- 4059 Oct, [facility] [id number] [place] [address] 20470- 6008 Oct, Pre-operative examination Z01.818 and Chronic kidney disease , stage 4 (severe) N18.4 [facility] [id number] [place] [address] 16361- 1144 Sep, [facility] [id number] [place] [address] 49927- 5174 Sep, Essential hypertension I10 [facility] [id number] [place] [address] 93776- 8185 Sep, Chronic pain syndrome G89.4 [facility] [id number] [place] [address] 51376- 8354 Aug, Type 2 diabetes mellitus with hyperglycemia E11.65 ; 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 ; Essential hypertension I10 ; Chronic kidney disease, stage 4 (severe) N18.4 ; Chronic pain syndrome G89.4 ; Hyperlipidemia LDL goal <70 E78.5 ; GERD without esophagitis K21.9 ; Neuropathy G62.9 and Vertigo R42 [facility] [address] [address]- 1351 15 Aug, 2017 [facility] [id number] [place] [address] 01485- 6016 Aug, [facility], [place] [id number] [place] [address] 35432- 0642 07 Aug, 2017 Chronic pain syndrome G89.4 [facility] [id number] [place] [address] 53321- 9590 Jul, Chronic pain syndrome G89.4 [facility] [id number] [place] [address] 70143- 9334 Jun, Type 2 diabetes mellitus with hyperglycemia E11.65 [facility] [id number] [place] [address] 64378- 1565 Jun, Preoperative examination Z01.818 [facility] [id number] [place] [address] 59698- 7191 Jun, Chronic pain syndrome G89.4 [facility] [id number] [place] [address] 48706- 7353 May, Type 2 diabetes mellitus with hyperglycemia E11.65 [facility] [id number] [place] [address] 82735- 8192 May, Chronic pain syndrome G89.4 [facility] [id number] [place] [address] 86764- 2451 Apr, Type 2 diabetes mellitus with hyperglycemia E11.65 ; 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 ; Essential hypertension I10 ; Malignant neoplasm of upper-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 C50.412 ; Neuropathy G62.9 ; Chronic kidney disease, stage 4 (severe) N18.4 ; Chronic pain syndrome G89.4 ; Hyperlipidemia LDL goal <70 E78.5 ; GERD without esophagitis K21.9 ; Arthritis of right hip M16.11 and Pain in right knee M25.561 [facility] [address] [place] [address] 70841- 0944 Apr, Type 2 diabetes mellitus with hyperglycemia E11.65 [facility] [address] [place] [address] 82741- 2166 Apr, Chronic pain syndrome G89.4 [facility] [id number] [place] [address] 57698- 0566 Apr, 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 [facility] [id number] [place] [address] 30582- 4247 Mar, Type 2 diabetes mellitus with hyperglycemia E11.65 ; MCC current use of insulin Z79.4 ; Essential hypertension I10 ; Malignant neoplasm of upper-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 C50.412 ; Neuropathy G62.9 ; Chronic kidney disease, stage 4 (severe) N18.4 ; Chronic pain syndrome G89.4 ; Hyperlipidemia LDL goal <70 E78.5 ; GERD without esophagitis K21.9 ; Arthritis of right hip M16.11 and Pain in right knee M25.561 [facility] [id number] [place] [address] 18926- 2899 February, Chronic pain syndrome G89.4 [facility] [id number] [place] [address] [id number] February, Dental caries K02.9 [facility] [id number] [place] [address] 76348- 7318 Jan, Type 2 diabetes mellitus with hyperglycemia E11.65 [facility] [id number] [place] [address] 32629- 0215 Jan, Type 2 diabetes mellitus with hyperglycemia E11.65 ; MCC current use of insulin Z79.4 ; Essential hypertension I10 ; Malignant neoplasm of upper-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 C50.412 ; Neuropathy G62.9 ; Chronic kidney disease, stage 4 (severe) N18.4 ; Chronic pain syndrome G89.4 ; Hyperlipidemia LDL goal <70 E78.5 and GERD without esophagitis K21.9 [facility] [address] [place] [address] 35185- 9071 Jan, Type 2 diabetes mellitus with hyperglycemia E11.65 [facility], [place] [address], [place] [address]- 0227 Dec, Chronic pain syndrome G89.4 [facility], [place] [address] [place] [address] 72680- 9766 Nov, Type 2 diabetes mellitus with hyperglycemia E11.65 [facility], [place] [address] [place] [address] 26225- 3882 Nov, Type 2 diabetes mellitus with hyperglycemia E11.65 [facility], [place] [address] [place] [address] 78331- 1891 Nov, [facility] [id number] [place] [address] 50054- 2743 Nov, Chronic pain syndrome G89.4 [facility] [address] [place] [address] [id number] Nov, Dental caries K02.9 [facility], [place] [address] [place] [address] 83095- 2456 Oct, Type 2 diabetes mellitus with hyperglycemia E11.65 ; Encounter for immunization Z23 ; Chronic kidney disease, stage 4 (severe) N18.4 ; MCC current use of insulin Z79.4 ; Essential hypertension I10 ; Neuropathy G62.9 ; Malignant neoplasm of upper-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 C50.412 ; Chronic pain syndrome G89.4 and Tooth infection K04.7 [facility], [place] [address], [place] [address]- 4948 Oct, Type 2 diabetes mellitus with hyperglycemia E11.65 [facility], [place] [address], [place] [address]- 1612 Sep, [facility] [id number] [place] [address] 63899- 3215 Sep, Chronic kidney disease, stage 4 (severe) N18.4 [facility], [place] [address] [place] [address] 92668- 6895 Aug, [facility], [place] [id number], [place] [address]- 6636 Aug, Type 2 diabetes mellitus with hyperglycemia E11.65 [facility] [address] [phone] Aug, Dental examination Z01.20 [facility], [place] [address] [place] [address] 18578- 0046 Jul, Chronic kidney disease, stage 4 (severe) N18.4 [facility], [place] [address], [place] [address]- 2117 Jul, [facility] [id number] [place] [address] 75731- 6550 Jul, Type 2 diabetes mellitus with hyperglycemia E11.65 ; Chronic kidney disease, stage 4 (severe) N18.4 ; 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 ; Essential hypertension I10 ; Neuropathy G62.9 and Malignant neoplasm of upper-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 C50.412 [facility], [place] [address], [place] [address]- 6444 Jun, [facility], [place] [id number] [place] [address] 02988- 2138 May, [facility], [place] [address], [place] [address]- 3033 Apr, [facility], [place] [address], [place] [address]- 1271 Apr, Type 2 diabetes mellitus with hyperglycemia E11.65 and Chronic kidney disease, stage 4 (severe) N18.4 [facility], [place] [address], [place] [address]- 0237 Apr, Type 2 diabetes mellitus with hyperglycemia E11.65 [facility], [place] [address], [place] [address]- 8695 Mar, [facility], [place] [address], [place] [address]- 6728 Mar, Type 2 diabetes mellitus with hyperglycemia E11.65 ; 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 ; Neuropathy G62.9 and Foot ulcer, left, limited to breakdown of skin L97.521 [facility] [address] [id number] February, Dental examination Z01.20 [facility] [address] [place] [address] 31567 -4406 February, Open toe wound, initial encounter S91.109A [facility], [place] [id number] [place] [address] 57438- 9934 February, [facility], [place] [id number] [place] [address] 21074- 7106 February, [facility], [place] [id number] [place] [address] 33702- 0981 February, Hyperkalemia E87.5 [facility], [place] [id number] [place] [address] 49005- 0033 February, Hyperkalemia E87.5 [facility], [place] [id number] [place] [address] 02095- 6327 February, Hyperkalemia E87.5 [facility], [place] [id number] [place] [address] 62331- 5216 Jan, [facility], [place] [id number] [place] [address] 21710- 7049 Dec, [facility], [place] [id number] [place] [address] 70005- 4717 Dec, [facility], [place] [id number] [place] [address] 40950- 1865 Dec, Type 2 diabetes mellitus with hyperglycemia E11.65 ; 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 ; Essential hypertension I10 ; Malignant neoplasm of upper-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 C50.412 ; Neuropathy G62.9 and Dental caries on smooth surface penetrating into pulp K02.63 [facility], [place] [address], [place] [address]- 5548 Dec, [facility], [place] [id number] [place] [address] 98660- 5593 Nov, [facility], [place] [id number] [place] [address] 62144- 1326 Nov, [facility], [place] [id number] [place] [address] 81752- 8480 Oct, Onychocryptosis L60.0 [facility], [place] [id number] [place] [address] 70532- 3364 Oct, [facility] [address] [place] [address] 23003- 0625 Sep, Type 2 diabetes mellitus with hyperglycemia E11.65 ; 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 ; Essential hypertension I10 ; Malignant neoplasm of upper-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 C50.412 and Neuropathy G62.9 [facility] [address] [place] [address] 20811- 3227 Sep, [facility] [id number] [place] [address] 57348- 3728 Aug, Onychocryptosis L60.0 and Onychomycosis B35.1 [facility] [address] [place] [address] 36048- 4503 Aug, [facility], [place] [id number] [place] [address] 18246- 7944 Aug, [facility], [place] [address] [place] [address] 50505- 5301 Jul, Pneumonia of right middle lobe due to infectious organism J18.9 [facility], [place] [address] [place] [address] 18534- 8071 Jul, [facility], [place] [id number] [place] [address] 83876- 5523 Jul, [facility], [place] [address] [place] [address] 63288- 8994 Jul, [facility] [id number] [place] [address] 491727- 5182 Jun, Diabetes mellitus 250.00 ; DM w/o complication type II, uncontrolled 250.02 ; Breast cancer, left 174.9 ; Personal history of antineoplastic chemotherapy V87.41 ; Back pain 724.5 ; Hip pain 719.45 and Ingrown left greater toenail 703.0 [facility] [address] [place] [address] 72543- 3261 Apr, Diabetes mellitus 250.00 ; Breast cancer, left 174.9 ; Personal history of antineoplastic chemotherapy V87.41 ; Back pain 724.5 and Hip pain 719.45 [facility] [address] [place] [address] 84958- 3622 Apr, [facility] [id number] [place] [address] 89813- 9538 Mar, Diabetes mellitus 250.00 ; Breast cancer, left 174.9 ; Personal history of antineoplastic chemotherapy V87.41 ; Back pain 724.5 and Hip pain 719.45 [facility] [address] [place] [address] 46936- 6116 Mar, DM w/o complication type II, uncontrolled 250.02 ; Hypertension 401.9 and Breast cancer, left 174.9 IMMUNIZATIONS No Known Immunizations SOCIAL HISTORY Never Assessed REASON FOR VISIT Refill request PLAN OF CARE VITAL SIGNS MEDICATIONS Medication Instructions Dosage Frequency Start Date End Date Duration Status Pen [place] 1/2" 29G X 12MM subcutaneously 5 times per day as directed Active RESULTS No Results PROCEDURES No Known procedures INSTRUCTIONS MEDICATIONS ADMINISTERED No Known Medications MEDICAL (GENERAL) HISTORY Type Description Date Medical History type II diabetes Medical History hypertension Medical History breast cancer- stage 3. Medical History Received chemotherapy every 3 weeks at [facility] under Dr Billingsley - Chemotherapy completed/now taking [...]
--- OUTSIDE RECORDS SUMMARY | 2018-07-29 06:21 | XMS REPORT ---
Author Author BHAVANA QUINTERO [facility] Address [address] [place] [address] Care Team Providers Care Professor Of Historical Theology Name Role Phone BHAVANA QUINTERO Unavailable PROBLEMS Type Condition ICD9-CM Code UTR48-QY Code Onset Dates Condition Status SNOMED Code Problem long-term current use of insulin Z79.4 Active 060602991 Problem Malignant neoplasm of upper-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 C50.412 Active 606942313 Problem Type 2 diabetes mellitus with hyperglycemia E11.65 Active 614443931934682 Problem Chronic kidney disease, stage 4 (severe) N18.4 Active 810163395 Problem Hyperkalemia E87.5 Active 92941589 Problem Essential hypertension I10 Active 60935803 Problem Neuropathy G62.9 Active 369575627 Problem Pre-operative examination Z01.818 Active 339681312 Problem 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 Active 382387763 Problem Hyperlipidemia LDL goal <70 E78.5 Active 04686960 Problem Chronic pain syndrome G89.4 Active 533718143 Problem Arthritis of right hip M16.11 Active 2764022695224782 Problem GERD without esophagitis K21.9 Active 900014184 ALLERGIES No Information ENCOUNTERS Encounter Location Date Diagnosis [place] [id number] [place] [address] 20559- 3324 May, Type 2 diabetes mellitus with hyperglycemia E11.65 [facility] [id number] [address] May, [place] [address] [place] [address] 10870- 8063 May, Type 2 diabetes mellitus with hyperglycemia E11.65 [facility] [id number] [address] 0946 Apr, Type 2 diabetes mellitus with hyperglycemia E11.65 [facility] [address] [address] 1474 Apr, Type 2 diabetes mellitus with hyperglycemia E11.65 [facility] [address] [address] Apr, [facility] [id number] [place] [address] 29126- 6613 Mar, [facility] [id number] [place] [address] 75033- 6876 Mar, Type 2 diabetes mellitus with hyperglycemia E11.65 ; Essential hypertension I10 ; Chronic kidney disease, stage 4 (severe) N18.4 and Neuropathy G62.9 [facility] [id number] [place] [address] 24472- 0240 Mar, Type 2 diabetes mellitus with hyperglycemia E11.65 [facility] [id number] [place] [address] 01413- 3547 February, Chronic kidney disease, stage 4 (severe) N18.4 [facility] [address], [place] [address] 7990 February, [facility] [address] [place] [address] 33312- 3515 February, [facility] [address] [address] 2115 Jan, Type 2 diabetes mellitus with hyperglycemia E11.65 [facility] [address] [address] 4780 Dec, Type 2 diabetes mellitus with hyperglycemia E11.65 [facility] [address], [place] [address] 2839 Dec, Type 2 diabetes mellitus with hyperglycemia E11.65 [facility] [address] [address] 2798 Dec, Type 2 diabetes mellitus with hyperglycemia E11.65 [facility] [id number] [place] [address] 86841- 5469 Dec, Essential hypertension I10 ; Chronic kidney disease, stage 4 (severe) N18.4 ; [employer] current use of insulin Z79.4 ; Type 2 diabetes mellitus with hyperglycemia E11.65 ; Chronic pain syndrome G89.4 ; Hyperlipidemia LDL goal <70 E78.5 ; GERD without esophagitis K21.9 and Neuropathy G62.9 [place] [id number] [place] [address] 96427- 9177 Nov, [place] [address] 70525- 6835 Oct, [place] [address] 68538- 8831 Oct, Pre-operative examination Z01.818 and Chronic kidney disease , stage 4 (severe) N18.4 [place] [id number] [place] [address] 25888- 0183 Sep, [place] [address] [id number] [place] [address] 65743- 5055 Sep, Essential hypertension I10 [place] [id number] [place] [address] 56148- 9345 Sep, Chronic pain syndrome G89.4 [place] [address] [place] [address] [id number] [place] [address] 17390- 5397 Aug, Type 2 diabetes mellitus with hyperglycemia E11.65 ; [employer] current use of insulin Z79.4 ; Essential hypertension I10 ; Chronic kidney disease, stage 4 (severe) N18.4 ; Chronic pain syndrome G89.4 ; Hyperlipidemia LDL goal <70 E78.5 ; GERD without esophagitis K21.9 ; Neuropathy G62.9 and Vertigo R42 [place] [address] [address] [id number] [place] [address] 23576- 2992 15 Aug, 2017 [place] [address] [place] [id number] [place] [address] 95911- 0315 Aug, [place] [address] [place] [address]- 5372 Aug, Chronic pain syndrome G89.4 [place] [address] [place] [id number] [place] [address] 84783- 7231 Jul, Chronic pain syndrome G89.4 [place] [address] [place] [id number] [place] [address] 92045- 8268 Jun, Type 2 diabetes mellitus with hyperglycemia E11.65 [place] [address] [place] [id number] [place] [address] 78357- 6114 Jun, Preoperative examination Z01.818 [place] [address] [place] [id number] [place] [address] 30990- 3354 Jun, Chronic pain syndrome G89.4 [place] [address] [id number] [place] [address] 04646- 6425 May, Type 2 diabetes mellitus with hyperglycemia E11.65 [place] [address] [place] [id number] [place] [address] 65310- 6875 May, Chronic pain syndrome G89.4 [place] [address] [place] [id number] [place] [address] 23790- 8456 Apr, Type 2 diabetes mellitus with hyperglycemia E11.65 ; [employer] current use of insulin Z79.4 ; Essential hypertension I10 ; Malignant neoplasm of upper-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 C50.412 ; Neuropathy G62.9 ; Chronic kidney disease, stage 4 (severe) N18.4 ; Chronic pain syndrome G89.4 ; Hyperlipidemia LDL goal <70 E78.5 ; GERD without esophagitis K21.9 ; Arthritis of right hip M16.11 and Pain in right knee M25.561 [place] [address] [place] [id number] [place] [address] 73422- 6504 Apr, Type 2 diabetes mellitus with hyperglycemia E11.65 [place] [address] [place] [address] 37761- 5692 Apr, Chronic pain syndrome G89.4 [place] [address] [place] [id number] [place] [address] 24828- 0050 Apr, 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 [place] [id number] [place] [address] 25725- 9151 Mar, Type 2 diabetes mellitus with hyperglycemia E11.65 ; [employer] current use of insulin Z79.4 ; Essential hypertension I10 ; Malignant neoplasm of upper-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 C50.412 ; Neuropathy G62.9 ; Chronic kidney disease, stage 4 (severe) N18.4 ; Chronic pain syndrome G89.4 ; Hyperlipidemia LDL goal <70 E78.5 ; GERD without esophagitis K21.9 ; Arthritis of right hip M16.11 and Pain in right knee M25.561 [place] [id number] [place] [address] 27418- 9748 February, Chronic pain syndrome G89.4 [facility] [id number] [place] [address] [id number] February, Dental caries K02.9 [place] [id number] [place] [address] 76329- 7014 Jan, Type 2 diabetes mellitus with hyperglycemia E11.65 [place] [id number] [place] [address] 00579- 9782 Jan, Type 2 diabetes mellitus with hyperglycemia E11.65 ; [employer] current use of insulin Z79.4 ; Essential hypertension I10 ; Malignant neoplasm of upper-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 C50.412 ; Neuropathy G62.9 ; Chronic kidney disease, stage 4 (severe) N18.4 ; Chronic pain syndrome G89.4 ; Hyperlipidemia LDL goal <70 E78.5 and GERD without esophagitis K21.9 [place] [address] [place] [id number] [place] [address] 00155- 4635 Jan, Type 2 diabetes mellitus with hyperglycemia E11.65 [place] [id number] [place] [address] 56360- 1114 Dec, Chronic pain syndrome G89.[address] 79091- 4999 Nov, Type 2 diabetes mellitus with hyperglycemia E11.65 [facility] [address] [place] [address] 90068- 1451 Nov, Type 2 diabetes mellitus with hyperglycemia E11.65 [facility] [address] [place] [address] 28613- 9315 Nov, [facility] [address] 17385- 8146 Nov, Chronic pain syndrome G89.4 [facility] [id number] [place] [address] [id number] Nov, Dental caries K02.9 [place] [address] [place] [id number] [place] [address] 26287- 2816 Oct, Type 2 diabetes mellitus with hyperglycemia E11.65 ; Encounter for immunization Z23 ; Chronic kidney disease, stage 4 (severe) N18.4 ; [employer] current use of insulin Z79.4 ; Essential hypertension I10 ; Neuropathy G62.9 ; Malignant neoplasm of upper-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 C50.412 ; Chronic pain syndrome G89.4 and Tooth infection K04.7 [place] [address] [place] [address] 87359- 1438 Oct, Type 2 diabetes mellitus with hyperglycemia E11.65 [place] [address] [place] [address] 48726- 6930 Sep, [facility] [id number] [place] [address] 07248- 1251 Sep, Chronic kidney disease, stage 4 (severe) N18.4 [facility] [address] [id number] [place] [address] 05279- 0282 Aug, [facility] [id number] [place] [address] 61797- 4489 Aug, Type 2 diabetes mellitus with hyperglycemia E11.65 [facility] [id number] [place] [address] [id number] Aug, Dental examination Z01.20 [place] [address] [id number] [place] [address] 38203- 8143 Jul, Chronic kidney disease, stage 4 (severe) N18.4 [facility] [id number] [place] [address] 61312- 8380 Jul, [place] [address] [place] [address] 05178- 3589 Jul, Type 2 diabetes mellitus with hyperglycemia E11.65 ; Chronic kidney disease, stage 4 (severe) N18.4 ; long-term current use of insulin Z79.4 ; Essential hypertension I10 ; Neuropathy G62.9 and Malignant neoplasm of upper-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 C50.412 [place] [address] [place] [address] [id number] [place] [address] 30032- 4783 Jun, [place] [address] 50842- 4662 May, [place] [address] [place] [address] [id number] [place] [address] 17793- 5281 Apr, [place] [id number] [place] [address] 79314- 0339 Apr, Type 2 diabetes mellitus with hyperglycemia E11.65 and Chronic kidney disease, stage 4 (severe) N18.4 [place] [id number] [place] [address] 94903- 5437 Apr, Type 2 diabetes mellitus with hyperglycemia E11.65 [place] [address] [place] [id number] [place] [address] 31442- 4500 Mar, [place] [id number] [place] [address] 94497- 1380 Mar, Type 2 diabetes mellitus with hyperglycemia E11.65 ; long-term current use of 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 [id number] [place] [address] [phone] February, Dental examination Z01.20 [facility] [address], [place] [address] February, Open toe wound, initial encounter S91.109A [facility] [address], [place] [address]- 7581 February, [facility] [id number] [place] [address] 14020- 4315 February, [facility] [address] [place] [address] 46244- 3716 February, Hyperkalemia E87.5 [facility] [id number] [place] [address] 41149- 7663 February, Hyperkalemia E87.5 [facility] [address] [place] [address] 97394- 1882 February, Hyperkalemia E87.5 [facility] [address], [place] [address]- 4380 Jan, [facility] [id number] [place] [address] 59332- 5366 Dec, [facility] [address], [place] [address]- 1373 Dec, [facility] [address], [place] [address]- 5365 Dec, Type 2 diabetes mellitus with hyperglycemia E11.65 ; [employer] current use of insulin Z79.4 ; Essential hypertension I10 ; Malignant neoplasm of upper-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 C50.412 ; Neuropathy G62.9 and Dental caries on smooth surface penetrating into pulp K02.63 [facility] [address], [place] [address]- 8821 Dec, [facility] [address] [place] [address]- 3223 Nov, [facility] [address], [place] [address]- 8444 Nov, [facility] [id number] [place] [address] 79487- 1239 Oct, Onychocryptosis L60.0 [facility] [id number] [place] [address] 08759- 0361 Oct, [facility] [address] [place] [address] 67923- 1193 Sep, Type 2 diabetes mellitus with hyperglycemia E11.65 ; long-term current use of insulin Z79.4 ; Essential hypertension I10 ; Malignant neoplasm of upper-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 C50.412 and Neuropathy G62.9 [facility] [id number] [place] [address] 23929- 8596 Sep, [facility] [address] [place] [address] 11972- 2138 Aug, Onychocryptosis L60.0 and Onychomycosis B35.1 [facility] [id number] [place] [address] 79917- 6673 Aug, [facility] [id number] [place] [address] 14288- 7948 Aug, [facility] [id number] [place] [address] 03838- 1651 Jul, Pneumonia of right middle lobe due to infectious organism J18.9 [facility] [address] [place] [address] 10775- 6990 Jul, [facility] [id number] [place] [address] 78354- 6014 Jul, [facility] [id number] [place] [address] 58648- 2388 Jul, [facility] [address] [place] [address] 99657- 6054 Jun, Diabetes mellitus 250.00 ; DM w/o complication type II, uncontrolled 250.02 ; Breast cancer, left 174.9 ; Personal history of antineoplastic chemotherapy V87.41 ; Back pain 724.5 ; Hip pain 719.45 and Ingrown left greater toenail 703.0 [facility] [id number], [place] [address]- 1519 Apr, Diabetes mellitus 250.00 ; Breast cancer, left 174.9 ; Personal history of antineoplastic chemotherapy V87.41 ; Back pain 724.5 and Hip pain 719.45 [facility] [address] [place] [address] 71912- 1799 Apr, [facility] [id number] [place] [address] 35745- 0768 Mar, Diabetes mellitus 250.00 ; Breast cancer, left 174.9 ; Personal history of antineoplastic chemotherapy V87.41 ; Back pain 724.5 and Hip pain 719.45 [place] [address] [place] [address] 65494- 0760 Mar, DM w/o complication type II, uncontrolled 250.02 ; Hypertension 401.9 and Breast cancer, left 174.9 IMMUNIZATIONS No Known Immunizations SOCIAL HISTORY Never Assessed REASON FOR VISIT Requests return call PLAN OF CARE VITAL SIGNS MEDICATIONS Unknown Medications RESULTS No Results PROCEDURES No Known procedures INSTRUCTIONS MEDICATIONS ADMINISTERED No Known Medications MEDICAL (GENERAL) HISTORY Type Description Date Medical History type II diabetes Medical History hypertension Medical History breast cancer- stage 3. Medical History Received chemotherapy every 3 weeks at [facility] under Dr Billingsley - Chemotherapy completed/now taking [...]
--- OUTSIDE RECORDS SUMMARY | 2018-07-29 06:21 | XMS REPORT ---
Author Author BHAVANA QUINTERO [facility] Address [address] [place] [address] Care Team Providers Care Cafe Team Member Name Role Phone BHAVANA QUINTERO Unavailable PROBLEMS Type Condition ICD9-CM Code UPE68-AA Code Onset Dates Condition Status SNOMED Code Problem skilled nursing current use of insulin Z79.4 Active 584177515 Problem Malignant neoplasm of upper-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 C50.412 Active 555553156 Problem Type 2 diabetes mellitus with hyperglycemia E11.65 Active 754125604971914 Problem Chronic kidney disease, stage 4 (severe) N18.4 Active 954638075 Problem Hyperkalemia E87.5 Active 90713542 Problem Essential hypertension I10 Active 72811628 Problem Neuropathy G62.9 Active 575949994 Problem Pre-operative examination Z01.818 Active 770295560 Problem 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 Active 186485197 Problem Hyperlipidemia LDL goal <70 E78.5 Active 57651236 Problem Chronic pain syndrome G89.4 Active 475415817 Problem Arthritis of right hip M16.11 Active [id number] Problem GERD without esophagitis K21.9 Active 889859587 ALLERGIES No Information ENCOUNTERS Encounter Location Date Diagnosis [place] [id number] [place] [address] 73743- 4021 May, Type 2 diabetes mellitus with hyperglycemia E11.65 [facility] [id number] [address] May, [place] [id number] [place] [address] 84193- 3515 May, Type 2 diabetes mellitus with hyperglycemia E11.65 [facility] [id number] [address] 4580 Apr, Type 2 diabetes mellitus with hyperglycemia E11.65 [facility] [address] [address] 6847 Apr, Type 2 diabetes mellitus with hyperglycemia E11.65 [facility] [address] [address] 2[address] Apr, [facility] [id number] [place] [address] 82884- 2074 Mar, [facility] [id number] [place] [address] 26255- 9168 Mar, Type 2 diabetes mellitus with hyperglycemia E11.65 ; Essential hypertension I10 ; Chronic kidney disease, stage 4 (severe) N18.4 and Neuropathy G62.9 [facility] [id number] [place] [address] 37010- 9179 Mar, Type 2 diabetes mellitus with hyperglycemia E11.65 [facility] [id number] [place] [address] 79150- 7688 February, Chronic kidney disease, stage 4 (severe) N18.4 [facility] [address] [address] February, [facility] [id number] [place] [address] 67189- 1437 February, [facility] [address] [address] 9215 Jan, Type 2 diabetes mellitus with hyperglycemia E11.65 [facility] [address] [address] 1445 Dec, Type 2 diabetes mellitus with hyperglycemia E11.65 [facility] [address] [address] 6393 Dec, Type 2 diabetes mellitus with hyperglycemia E11.65 [facility] [address], [place] [address] 3682 Dec, Type 2 diabetes mellitus with hyperglycemia E11.65 [facility] [id number] [place] [address] 23843- 7755 Dec, Essential hypertension I10 ; Chronic kidney disease, stage 4 (severe) N18.4 ; 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.4 ; Type 2 diabetes mellitus with hyperglycemia E11.65 ; Chronic pain syndrome G89.4 ; Hyperlipidemia LDL goal <70 E78.5 ; GERD without esophagitis K21.9 and Neuropathy G62.9 [place] [id number] [place] [address] 05902- 7242 Nov, [place] [address] 31615- 8695 Oct, [place] [address] 94944- 4588 Oct, Pre-operative examination Z01.818 and Chronic kidney disease , stage 4 (severe) N18.4 [place] [id number] [place] [address] 95814- 5573 Sep, [place] [id number] [place] [address] 04218- 5186 Sep, Essential hypertension I10 [place] [id number] [place] [address] 60461- 3725 Sep, Chronic pain syndrome G89.4 [place] [id number] [place] [address] 17802- 8532 Aug, Type 2 diabetes mellitus with hyperglycemia E11.65 ; 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.4 ; Essential hypertension I10 ; Chronic kidney disease, stage 4 (severe) N18.4 ; Chronic pain syndrome G89.4 ; Hyperlipidemia LDL goal <70 E78.5 ; GERD without esophagitis K21.9 ; Neuropathy G62.9 and Vertigo R42 [place] [id number] [place] [address] 70365- 8955 15 Aug, 2017 [place] [id number] [place] [address] 95079- 7884 Aug, [place] [address] [place] [address]- 5877 Aug, Chronic pain syndrome G89.4 [place] [id number] [place] [address] 58935- 2152 Jul, Chronic pain syndrome G89.4 [place] [id number] [place] [address] 34958- 3084 Jun, Type 2 diabetes mellitus with hyperglycemia E11.65 [place] [id number] [place] [address] 74250- 3689 Jun, Preoperative examination Z01.818 [place] [id number] [place] [address] 55543- 3747 Jun, Chronic pain syndrome G89.4 [place] [id number] [place] [address] 28307- 0385 May, Type 2 diabetes mellitus with hyperglycemia E11.65 [place] [id number] [place] [address] 38923- 1683 May, Chronic pain syndrome G89.4 [place] [id number] [place] [address] 72031- 2416 Apr, Type 2 diabetes mellitus with hyperglycemia E11.65 ; 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.4 ; Essential hypertension I10 ; Malignant neoplasm of upper-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 C50.412 ; Neuropathy G62.9 ; Chronic kidney disease, stage 4 (severe) N18.4 ; Chronic pain syndrome G89.4 ; Hyperlipidemia LDL goal <70 E78.5 ; GERD without esophagitis K21.9 ; Arthritis of right hip M16.11 and Pain in right knee M25.561 [place] [id number] [place] [address] 37335- 7216 Apr, Type 2 diabetes mellitus with hyperglycemia E11.65 [place] [address] [place] [address] 80577- 8331 Apr, Chronic pain syndrome G89.4 [place] [id number] [place] [address] 60465- 5280 Apr, 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 [place] [id number] [place] [address] 63089- 9716 Mar, Type 2 diabetes mellitus with hyperglycemia E11.65 ; 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.4 ; Essential hypertension I10 ; Malignant neoplasm of upper-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 C50.412 ; Neuropathy G62.9 ; Chronic kidney disease, stage 4 (severe) N18.4 ; Chronic pain syndrome G89.4 ; Hyperlipidemia LDL goal <70 E78.5 ; GERD without esophagitis K21.9 ; Arthritis of right hip M16.11 and Pain in right knee M25.561 [place] [id number] [place] [address] 01924- 6485 February, Chronic pain syndrome G89.4 [facility] [id number] [place] [address] [id number] February, Dental caries K02.9 [place] [id number] [place] [address] 61825- 3786 Jan, Type 2 diabetes mellitus with hyperglycemia E11.65 [place] [id number] [place] [address] 20309- 5896 Jan, Type 2 diabetes mellitus with hyperglycemia E11.65 ; 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.4 ; Essential hypertension I10 ; Malignant neoplasm of upper-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 C50.412 ; Neuropathy G62.9 ; Chronic kidney disease, stage 4 (severe) N18.4 ; Chronic pain syndrome G89.4 ; Hyperlipidemia LDL goal <70 E78.5 and GERD without esophagitis K21.9 [place] [id number] [place] [address] 05783- 3840 Jan, Type 2 diabetes mellitus with hyperglycemia E11.65 [place] [id number] [place] [address] 87876- 4461 Dec, Chronic pain syndrome G89.[address] 00142- 4057 Nov, Type 2 diabetes mellitus with hyperglycemia E11.65 [facility] [id number] [place] [address] 30261- 9097 Nov, Type 2 diabetes mellitus with hyperglycemia E11.65 [facility] [id number] [place] [address] 33742- 5783 Nov, [facility] [address] 55686- 6618 Nov, Chronic pain syndrome G89.4 [facility] [id number] [place] [address] [id number] Nov, Dental caries K02.9 [place] [id number] [place] [address] 63311- 3810 Oct, Type 2 diabetes mellitus with hyperglycemia E11.65 ; Encounter for immunization Z23 ; Chronic kidney disease, stage 4 (severe) N18.4 ; 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.4 ; Essential hypertension I10 ; Neuropathy G62.9 ; Malignant neoplasm of upper-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 C50.412 ; Chronic pain syndrome G89.4 and Tooth infection K04.7 [place] [address] [place] [address] 32162- 4862 Oct, Type 2 diabetes mellitus with hyperglycemia E11.65 [place] [id number] [place] [address] 25720- 9297 Sep, [facility] [id number] [place] [address] 35772- 2993 Sep, Chronic kidney disease, stage 4 (severe) N18.4 [facility] [id number] [place] [address] 38682- 4696 Aug, [facility] [id number] [place] [address] 29723- 8551 Aug, Type 2 diabetes mellitus with hyperglycemia E11.65 [facility] [id number] [place] [address] [id number] Aug, Dental examination Z01.20 [place] [id number] [place] [address] 50994- 1277 Jul, Chronic kidney disease, stage 4 (severe) N18.4 [facility] [id number] [place] [address] 23798- 3569 Jul, [place] [id number] [place] [address] 34935- 2305 Jul, Type 2 diabetes mellitus with hyperglycemia E11.65 ; Chronic kidney disease, stage 4 (severe) N18.4 ; skilled nursing current use of insulin Z79.4 ; Essential hypertension I10 ; Neuropathy G62.9 and Malignant neoplasm of upper-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 C50.412 [place] [id number] [place] [address] 00244- 8980 Jun, [place] [address] 45073- 5991 May, [place] [id number] [place] [address] 89662- 8002 Apr, [place] [id number] [place] [address] 32159- 9060 Apr, Type 2 diabetes mellitus with hyperglycemia E11.65 and Chronic kidney disease, stage 4 (severe) N18.4 [place] [id number] [place] [address] 26634- 6544 Apr, Type 2 diabetes mellitus with hyperglycemia E11.65 [place] [id number] [place] [address] 20778- 1052 Mar, [place] [id number] [place] [address] 05594- 2303 Mar, Type 2 diabetes mellitus with hyperglycemia E11.65 ; skilled nursing current use of insulin Z79.4 ; Neuropathy G62.9 and Foot ulcer, left, limited to breakdown of skin L97.521 [facility] [id number] [place] [address] [id number] February, Dental examination Z01.20 [facility] [address], [place] [address] February, Open toe wound, initial encounter S91.109A [facility] [address], [place] [address]- 9550 February, [facility] [id number] [place] [address] 66594- 5130 February, [facility] [id number] [place] [address] 54391- 4972 February, Hyperkalemia E87.5 [facility] [id number] [place] [address] 35504- 9050 February, Hyperkalemia E87.5 [facility] [address] [place] [address] 34460- 3907 February, Hyperkalemia E87.5 [facility] [address], [place] [address]- 8922 Jan, [facility] [id number] [place] [address] 42458- 2684 Dec, [facility] [address], [place] [address]- 3429 Dec, [facility] [address], [place] [address]- 1856 Dec, Type 2 diabetes mellitus with hyperglycemia E11.65 ; 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.4 ; Essential hypertension I10 ; Malignant neoplasm of upper-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 C50.412 ; Neuropathy G62.9 and Dental caries on smooth surface penetrating into pulp K02.63 [facility] [address], [place] [address]- 5845 Dec, [facility] [address], [place] [address]- 8807 Nov, [facility] [address], [place] [address]- 9635 Nov, [facility] [id number] [place] [address] 91458- 9884 Oct, Onychocryptosis L60.0 [facility] [id number] [place] [address] 08294- 8398 Oct, [facility] [id number] [place] [address] 27664- 8576 Sep, Type 2 diabetes mellitus with hyperglycemia E11.65 ; skilled nursing current use of insulin Z79.4 ; Essential hypertension I10 ; Malignant neoplasm of upper-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 C50.412 and Neuropathy G62.9 [facility] [id number] [place] [address] 06929- 7353 Sep, [facility] [id number] [place] [address] 37357- 2736 Aug, Onychocryptosis L60.0 and Onychomycosis B35.1 [facility] [id number] [place] [address] 36226- 8628 Aug, [facility] [id number] [place] [address] 52937- 5423 Aug, [facility] [id number] [place] [address] 37609- 9649 Jul, Pneumonia of right middle lobe due to infectious organism J18.9 [facility] [address] [place] [address] 58271- 8378 Jul, [facility] [id number] [place] [address] 62298- 7484 Jul, [facility] [id number] [place] [address] 11189- 2883 Jul, [facility] [id number] [place] [address] 92954- 1192 Jun, Diabetes mellitus 250.00 ; DM w/o complication type II, uncontrolled 250.02 ; Breast cancer, left 174.9 ; Personal history of antineoplastic chemotherapy V87.41 ; Back pain 724.5 ; Hip pain 719.45 and Ingrown left greater toenail 703.0 [facility] [id number], [place] [address]- 9060 Apr, Diabetes mellitus 250.00 ; Breast cancer, left 174.9 ; Personal history of antineoplastic chemotherapy V87.41 ; Back pain 724.5 and Hip pain 719.45 [facility] [id number] [place] [address] 29927- 0775 Apr, [facility] [id number] [place] [address] 45865- 9819 Mar, Diabetes mellitus 250.00 ; Breast cancer, left 174.9 ; Personal history of antineoplastic chemotherapy V87.41 ; Back pain 724.5 and Hip pain 719.45 [place] [address] [place] [address] 93834- 4153 Mar, DM w/o complication type II, uncontrolled 250.02 ; Hypertension 401.9 and Breast cancer, left 174.9 IMMUNIZATIONS No Known Immunizations SOCIAL HISTORY Never Assessed REASON FOR VISIT Prior Authorization Deneid PLAN OF CARE VITAL SIGNS MEDICATIONS Unknown Medications RESULTS No Results PROCEDURES No Known procedures INSTRUCTIONS MEDICATIONS ADMINISTERED No Known Medications MEDICAL (GENERAL) HISTORY Type Description Date Medical History type II diabetes Medical History hypertension Medical History breast cancer- stage 3. Medical History Received chemotherapy every 3 weeks at [facility] under Dr Billingsley - Chemotherapy completed/now taking [...]
--- OUTSIDE RECORDS SUMMARY | 2018-07-29 06:22 | XMS REPORT ---
Author Author ENRRIQUE FUENTES [facility] Address [address] [place] [address] Care Team Providers Care Physician Gynecologist Name Role Phone ENRRIQUE FUENTES Unavailable PROBLEMS Type Condition ICD9-CM Code PHK43-DF Code Onset Dates Condition Status SNOMED Code Problem manager terminal current use of insulin Z79.4 Active 159388626 Problem Malignant neoplasm of upper-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 C50.412 Active 050459074 Problem Type 2 diabetes mellitus with hyperglycemia E11.65 Active [id number] Problem Chronic kidney disease, stage 4 (severe) N18.4 Active 620452833 Problem Hyperkalemia E87.5 Active 47463438 Problem Essential hypertension I10 Active 99200328 Problem Neuropathy G62.9 Active 097721986 Problem Pre-operative examination Z01.818 Active 402259328 Problem 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 Active 883971363 Problem Hyperlipidemia LDL goal <70 E78.5 Active 66610102 Problem Chronic pain syndrome G89.4 Active 515797453 Problem Arthritis of right hip M16.11 Active [id number] Problem GERD without esophagitis K21.9 Active 382956011 ALLERGIES No Information ENCOUNTERS Encounter Location Date Diagnosis [place] [id number] [address] May, Type 2 diabetes mellitus with hyperglycemia E11.65 [facility] [address] [facility] [id number] [address] May, [place] [id number] [place] [address]659- 7674 May, Type 2 diabetes mellitus with hyperglycemia E11.65 [place] [id number], [place] [address] Apr, Type 2 diabetes mellitus with hyperglycemia E11.65 [facility] [address], [place] [address] Apr, Type 2 diabetes mellitus with hyperglycemia E11.65 [facility] [address], [place] [address] 9[address] Apr, [facility] [address], [place] [address] Mar, [facility] [address] [id number] [place] [address] 51056- 0136 Mar, Type 2 diabetes mellitus with hyperglycemia E11.65 ; Essential hypertension I10 ; Chronic kidney disease, stage 4 (severe) N18.4 and Neuropathy G62.9 [facility] [address], [place] [address] Mar, Type 2 diabetes mellitus with hyperglycemia E11.65 [facility] [address], [place] [address] February, Chronic kidney disease, stage 4 (severe) N18.4 [facility] [address], [place] [address] February, [facility] [address], [place] [address] February, [facility] [address], [place] [address] Jan, Type 2 diabetes mellitus with hyperglycemia E11.65 [facility] [address], [place] [address] 59[address] Dec, Type 2 diabetes mellitus with hyperglycemia E11.65 [facility] [address], [place] [address] 4[address] Dec, Type 2 diabetes mellitus with hyperglycemia E11.65 [facility] [address], [place] [address] 67[address] Dec, Type 2 diabetes mellitus with hyperglycemia E11.65 [facility] [id number] [place] [address] 07771- 8313 Dec, Essential hypertension I10 ; Chronic kidney disease, stage 4 (severe) N18.4 ; custodial current use of insulin Z79.4 ; Type 2 diabetes mellitus with hyperglycemia E11.65 ; Chronic pain syndrome G89.4 ; Hyperlipidemia LDL goal <70 E78.5 ; GERD without esophagitis K21.9 and Neuropathy G62.9 [place] [id number] [place] [address] 92423- 9407 Nov, [place] [id number] [place] [address] 75354- 7335 Oct, [place] [id number] [place] [address] 91645- 5327 Oct, Pre-operative examination Z01.818 and Chronic kidney disease , stage 4 (severe) N18.4 [place] [id number] [place] [address] 00813- 4235 Sep, [place] [id number] [place] [address] 63361- 1495 Sep, Essential hypertension I10 [place] [id number] [place] [address] 58739- 5348 Sep, Chronic pain syndrome G89.4 [place] [id number] [place] [address] 20716- 0996 Aug, Type 2 diabetes mellitus with hyperglycemia E11.65 ; manager terminal current use of insulin Z79.4 ; Essential hypertension I10 ; Chronic kidney disease, stage 4 (severe) N18.4 ; Chronic pain syndrome G89.4 ; Hyperlipidemia LDL goal <70 E78.5 ; GERD without esophagitis K21.9 ; Neuropathy G62.9 and Vertigo R42 [place] [id number] [place] [address] 73287- 9429 Aug, [place] [id number] [place] [address] 61444- 3951 Aug, [place] [id number] [place] [address] 48584- 7115 Aug, Chronic pain syndrome G89.4 [place] [id number] [place] [address] 96411- 0374 Jul, Chronic pain syndrome G89.4 [place] [address] [address]- [address]37 Jun, Type 2 diabetes mellitus with hyperglycemia E11.65 [place] [address] [address]- [address]31 Jun, Preoperative examination Z01.818 [place] [address] [address]- 2375 Jun, Chronic pain syndrome G89.4 [place] [address] [address]- 5543 May, Type 2 diabetes mellitus with hyperglycemia E11.65 [place] [address] [address]- 9784 May, Chronic pain syndrome G89.4 [place] [address] [address]- 0560 Apr, Type 2 diabetes mellitus with hyperglycemia E11.65 ; custodial current use of insulin Z79.4 ; Essential hypertension I10 ; Malignant neoplasm of upper-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 C50.412 ; Neuropathy G62.9 ; Chronic kidney disease, stage 4 (severe) N18.4 ; Chronic pain syndrome G89.4 ; Hyperlipidemia LDL goal <70 E78.5 ; GERD without esophagitis K21.9 ; Arthritis of right hip M16.11 and Pain in right knee M25.561 [place] [id number] [place] [address] 94902- 2024 Apr, Type 2 diabetes mellitus with hyperglycemia E11.65 [place] [address] [id number] [place] [address] 60614- 6982 Apr, Chronic pain syndrome G89.4 [place] [address] [place] [address] 9640 Apr, 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 [place] [address] [address]- 4861 Mar, Type 2 diabetes mellitus with hyperglycemia E11.65 ; custodial current use of insulin Z79.4 ; Essential hypertension I10 ; Malignant neoplasm of upper-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 C50.412 ; Neuropathy G62.9 ; Chronic kidney disease, stage 4 (severe) N18.4 ; Chronic pain syndrome G89.4 ; Hyperlipidemia LDL goal <70 E78.5 ; GERD without esophagitis K21.9 ; Arthritis of right hip M16.11 and Pain in right knee M25.561 [place] [address] [address] February, Chronic pain syndrome G89.4 [facility] [address] [id number] February, Dental caries K02.9 [place] [address] [id number] [place] [address] 87650- 4941 Jan, Type 2 diabetes mellitus with hyperglycemia E11.65 [place] [id number] [place] [address] 19001- 5901 Jan, Type 2 diabetes mellitus with hyperglycemia E11.65 ; manager terminal current use of insulin Z79.4 ; Essential hypertension I10 ; Malignant neoplasm of upper-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 C50.412 ; Neuropathy G62.9 ; Chronic kidney disease, stage 4 (severe) N18.4 ; Chronic pain syndrome G89.4 ; Hyperlipidemia LDL goal <70 E78.5 and GERD without esophagitis K21.9 [place] [address] 08242- 8172 Jan, Type 2 diabetes mellitus with hyperglycemia E11.65 [place] [id number] [place] [address] 51323- 6861 Dec, Chronic pain syndrome G89.4 [place] [address] 65384- 2138 Nov, Type 2 diabetes mellitus with hyperglycemia E11.65 [facility] [address] [place] [address] 89003- 8007 Nov, Type 2 diabetes mellitus with hyperglycemia E11.65 [facility] [address] [place] [address] 10278- 8992 Nov, [facility] [id number] [place] [address] 83162- 3106 Nov, Chronic pain syndrome G89.4 [facility] [address] [place] [address] [id number] Nov, Dental caries K02.9 [place] [address] [place] [address] 77942- 5012 Oct, Encounter for immunization Z23 ; Type 2 diabetes mellitus with hyperglycemia E11.65 ; Chronic kidney disease, stage 4 (severe) N18.4 ; manager terminal current use of insulin Z79.4 ; Essential hypertension I10 ; Neuropathy G62.9 ; Malignant neoplasm of upper-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 C50.412 ; Chronic pain syndrome G89.4 and Tooth infection K04.7 [place] [address] [place] [address] 01998- 1407 Oct, Type 2 diabetes mellitus with hyperglycemia E11.65 [place] [address] [place] [address] 47697- 5473 Sep, [facility] [id number] [place] [address] 66440- 7895 Sep, Chronic kidney disease, stage 4 (severe) N18.4 [facility] [address] [place] [address] 38350- 5765 Aug, [facility] [address] [place] [address] 82407- 2973 Aug, Type 2 diabetes mellitus with hyperglycemia E11.65 [facility] [address] [place] [address] [id number] Aug, Dental examination Z01.20 [place] [id number] [place] [address] 30179- 6363 Jul, Chronic kidney disease, stage 4 (severe) N18.4 [place] [id number] [place] [address] 25980- 2614 Jul, [place] [address] 8[address]01- 9611 Jul, Type 2 diabetes mellitus with hyperglycemia E11.65 ; Chronic kidney disease, stage 4 (severe) N18.4 ; custodial current use of insulin Z79.4 ; Essential hypertension I10 ; Neuropathy G62.9 and Malignant neoplasm of upper-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 C50.412 [place] [address] [id number] [place] [address] 10782- 2171 Jun, [place] [id number] [place] [address] 06105- 3421 May, [place] [id number] [place] [address] 95235- 5538 Apr, [place] [id number] [place] [address] 76815- 0331 Apr, Type 2 diabetes mellitus with hyperglycemia E11.65 and Chronic kidney disease, stage 4 (severe) N18.4 [place] [id number] [place] [address] 34709- 6216 Apr, Type 2 diabetes mellitus with hyperglycemia E11.65 [place] [id number] [place] [address] 59406- 7815 Mar, [place] [id number] [place] [address] 77386- 8989 Mar, Type 2 diabetes mellitus with hyperglycemia E11.65 ; custodial current use of insulin Z79.4 ; Neuropathy G62.9 and Foot ulcer, left, limited to breakdown of skin L97.521 [facility] [id number] [id number] February, Dental examination Z01.20 [facility] [address], [place] [address] February, Open toe wound, initial encounter S91.109A [facility] [address] [address]- 2849 February, [facility] [id number] [place] [address] 64876- 3445 February, [facility] [id number] [place] [address] 75724- 5183 February, Hyperkalemia E87.5 [facility] [id number] [place] [address] 60642- 2384 February, Hyperkalemia E87.5 [facility] [id number] [place] [address] 62287- 7290 February, Hyperkalemia E87.5 [facility] [id number] [place] [address] 41022- 0590 Jan, [facility] [id number] [place] [address] 94032- 0156 Dec, [facility] [address], [place] [address]- 4770 Dec, [facility] [id number] [place] [address] 18174- 3573 Dec, Type 2 diabetes mellitus with hyperglycemia E11.65 ; custodial current use of insulin Z79.4 ; Essential hypertension I10 ; Malignant neoplasm of upper-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 C50.412 ; Neuropathy G62.9 and Dental caries on smooth surface penetrating into pulp K02.63 [facility] [address] [address] 8843 Dec, [facility] [id number] [place] [address] 65456- 2021 Nov, [facility] [address], [place] [address]- 6092 Nov, [facility] [id number] [place] [address] 05463- 0891 Oct, Onychocryptosis L60.0 [facility] [id number] [place] [address] 31175- 3224 Oct, [facility] [id number] [place] [address] 07583- 5265 Sep, Type 2 diabetes mellitus with hyperglycemia E11.65 ; manager terminal current use of insulin Z79.4 ; Essential hypertension I10 ; Malignant neoplasm of upper-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 C50.412 and Neuropathy G62.9 [facility] [address] [place] [address] 13822- 6932 Sep, [facility] [id number] [place] [address] 67509- 0222 Aug, Onychocryptosis L60.0 and Onychomycosis B35.1 [facility] [address] [place] [address] 89161- 7371 Aug, [facility] [address] [place] [address] 06355- 2753 Aug, [facility] [address] [place] [address] 08531- 1183 Jul, Pneumonia of right middle lobe due to infectious organism J18.9 [facility] [address], [place] [address]- 1678 Jul, [facility] [id number] [place] [address] 25861- 3170 Jul, [facility] [address] [place] [address] 06714- 8617 Jul, [facility] [id number] [place] [address] 17874- 7707 Jun, Diabetes mellitus 250.00 ; DM w/o complication type II, uncontrolled 250.02 ; Breast cancer, left 174.9 ; Personal history of antineoplastic chemotherapy V87.41 ; Back pain 724.5 ; Hip pain 719.45 and Ingrown left greater toenail 703.0 [facility] [id number], [place] [address]- 2107 Apr, Diabetes mellitus 250.00 ; Breast cancer, left 174.9 ; Personal history of antineoplastic chemotherapy V87.41 ; Back pain 724.5 and Hip pain 719.45 [facility] [address], [place] [address]- 9124 Apr, [facility] [address] [place] [address] 21540- 6289 Mar, Diabetes mellitus 250.00 ; Breast cancer, left 174.9 ; Personal history of antineoplastic chemotherapy V87.41 ; Back pain 724.5 and Hip pain 719.45 [facility] [address], [place] [address]- 8823 Mar, DM w/o complication type II, uncontrolled 250.02 ; Hypertension 401.9 and Breast cancer, left 174.9 IMMUNIZATIONS No Known Immunizations SOCIAL HISTORY Never Assessed REASON FOR VISIT Refill request PLAN OF CARE VITAL SIGNS MEDICATIONS Medication Instructions Dosage Frequency Start Date End Date Duration Status [place] 1/2" 29G X 12MM subcutaneously 5 times per day as directed Active RESULTS No Results PROCEDURES No Known procedures INSTRUCTIONS MEDICATIONS ADMINISTERED No Known Medications MEDICAL (GENERAL) HISTORY Type Description Date Medical History type II diabetes Medical History hypertension Medical History breast cancer- stage 3. Medical History Received chemotherapy every 3 weeks at [facility] under Dr Billingsley - Chemotherapy completed/now [...]
--- OUTSIDE RECORDS SUMMARY | 2018-07-29 06:22 | XMS REPORT ---
Author Author ENRRIQUE FUENTES [facility] Address [address] [place] [address] Care Team Providers Care Chicken Stuffer Name Role Phone ENRRIQUE FUENTES Unavailable PROBLEMS Type Condition ICD9-CM Code JZY00-UK Code Onset Dates Condition Status SNOMED Code Problem strategic buyer current use of insulin Z79.4 Active 715935127 Problem Malignant neoplasm of upper-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 C50.412 Active 967738258 Problem Type 2 diabetes mellitus with hyperglycemia E11.65 Active 171294489262930 Problem Chronic kidney disease, stage 4 (severe) N18.4 Active 078813861 Problem Hyperkalemia E87.5 Active 02249433 Problem Essential hypertension I10 Active 09983503 Problem Neuropathy G62.9 Active 157370365 Problem Pre-operative examination Z01.818 Active 117741059 Problem 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 Active 816796795 Problem Hyperlipidemia LDL goal <70 E78.5 Active 70579302 Problem Chronic pain syndrome G89.4 Active 140390839 Problem Arthritis of right hip M16.11 Active [id number] Problem GERD without esophagitis K21.9 Active 292769552 ALLERGIES No Information ENCOUNTERS Encounter Location Date Diagnosis [place] [id number] [address] May, Type 2 diabetes mellitus with hyperglycemia E11.65 [facility] [address] [facility] [id number] [address] May, [place] [id number] [place] [address]687- 7875 May, Type 2 diabetes mellitus with hyperglycemia E11.65 [place] [id number], [place] [address] Apr, Type 2 diabetes mellitus with hyperglycemia E11.65 [facility] [address], [place] [address] Apr, Type 2 diabetes mellitus with hyperglycemia E11.65 [facility] [address], [place] [address] Apr, [facility] [address], [place] [address] Mar, [facility] [id number] [place] [address] 00816- 3435 Mar, Type 2 diabetes mellitus with hyperglycemia E11.65 ; Essential hypertension I10 ; Chronic kidney disease, stage 4 (severe) N18.4 and Neuropathy G62.9 [facility] [address], [place] [address] Mar, Type 2 diabetes mellitus with hyperglycemia E11.65 [facility] [address], [place] [address] February, Chronic kidney disease, stage 4 (severe) N18.4 [facility] [address], [place] [address] February, [facility] [address], [place] [address] February, [facility] [address], [place] [address] 7[address] Jan, Type 2 diabetes mellitus with hyperglycemia E11.65 [facility] [address], [place] [address] 74[address] Dec, Type 2 diabetes mellitus with hyperglycemia E11.65 [facility] [address], [place] [address] 2878 Dec, Type 2 diabetes mellitus with hyperglycemia E11.65 [facility] [address], [place] [address] 1509 Dec, Type 2 diabetes mellitus with hyperglycemia E11.65 [facility] [id number] [place] [address] 41328- 3736 Dec, Essential hypertension I10 ; Chronic kidney disease, stage 4 (severe) N18.4 ; half-way current use of insulin Z79.4 ; Type 2 diabetes mellitus with hyperglycemia E11.65 ; Chronic pain syndrome G89.4 ; Hyperlipidemia LDL goal <70 E78.5 ; GERD without esophagitis K21.9 and Neuropathy G62.9 [place] [id number] [place] [address] 59664- 7451 Nov, [place] [address] [id number] [place] [address] 56874- 8484 Oct, [place] [id number] [place] [address] 27414- 3086 Oct, Pre-operative examination Z01.818 and Chronic kidney disease , stage 4 (severe) N18.4 [place] [id number] [place] [address] 56295- 7249 Sep, [place] [id number] [place] [address] 75822- 6952 Sep, Essential hypertension I10 [place] [id number] [place] [address] 10864- 0975 Sep, Chronic pain syndrome G89.4 [place] [id number] [place] [address] 90271- 7164 Aug, Type 2 diabetes mellitus with hyperglycemia E11.65 ; strategic buyer current use of insulin Z79.4 ; Essential hypertension I10 ; Chronic kidney disease, stage 4 (severe) N18.4 ; Chronic pain syndrome G89.4 ; Hyperlipidemia LDL goal <70 E78.5 ; GERD without esophagitis K21.9 ; Neuropathy G62.9 and Vertigo R42 [place] [id number] [place] [address] 26672- 9284 Aug, [place] [id number] [place] [address] 56361- 8384 Aug, [place] [id number] [place] [address] 15521- 4551 Aug, Chronic pain syndrome G89.4 [place] [id number] [place] [address] 18507- 8578 Jul, Chronic pain syndrome G89.4 [place] [address] [address]- 6705 Jun, Type 2 diabetes mellitus with hyperglycemia E11.65 [place] [address] 67[address]- 1687 Jun, Preoperative examination Z01.818 [place] [address] [address]- 3727 Jun, Chronic pain syndrome G89.4 [place] [address] 22897- 3945 May, Type 2 diabetes mellitus with hyperglycemia E11.65 [place] [address] 8[address]27- 7[address] May, Chronic pain syndrome G89.4 [place] [address] 38567- 0532 Apr, Type 2 diabetes mellitus with hyperglycemia [...] M16.11 and Pain in right knee M25.561 [place] [address] [id number] [place] [address] 78188- 3071 Apr, Type 2 diabetes mellitus with hyperglycemia E11.65 [place] [id number] [place] [address] 77300- 7294 Apr, Chronic pain syndrome G89.4 [place] [address] [place] [address] 5[address] Apr, 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 [place] [address] 7[address]26- 6812 Mar, Type 2 diabetes mellitus with hyperglycemia [...] M16.11 and Pain in right knee M25.561 [place] [address] 6[address]- 1317 February, Chronic pain syndrome G89.4 [facility] [address] [id number] February, Dental caries K02.9 [place] [id number] [place] [address] 91444- 5388 Jan, Type 2 diabetes mellitus with hyperglycemia E11.65 [place] [id number] [place] [address] 47105- 2482 Jan, Type 2 diabetes mellitus with hyperglycemia E11.65 ; strategic buyer current use of insulin Z79.4 ; Essential hypertension I10 ; Malignant neoplasm of upper-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 C50.412 ; Neuropathy G62.9 ; Chronic kidney disease, stage 4 (severe) N18.4 ; Chronic pain syndrome G89.4 ; Hyperlipidemia LDL goal <70 E78.5 and GERD without esophagitis K21.9 [place] [address] 80556- 1628 Jan, Type 2 diabetes mellitus with hyperglycemia E11.65 [place] [id number] [place] [address] 90110- 1582 Dec, Chronic pain syndrome G89.4 [place] [address] 90612- 3121 Nov, Type 2 diabetes mellitus with hyperglycemia E11.65 [facility] [address] [place] [address] 42994- 5805 Nov, Type 2 diabetes mellitus with hyperglycemia E11.65 [facility] [address] [place] [address] 16828- 3840 Nov, [facility] [id number] [place] [address] 96466- 8060 Nov, Chronic pain syndrome G89.4 [facility] [address] [place] [address] [id number] Nov, Dental caries K02.9 [place] [address] [place] [address] 27399- 9374 Oct, Type 2 diabetes mellitus with hyperglycemia E11.65 ; Encounter for immunization Z23 ; Chronic kidney disease, stage 4 (severe) N18.4 ; strategic buyer current use of insulin Z79.4 ; Essential hypertension I10 ; Neuropathy G62.9 ; Malignant neoplasm of upper-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 C50.412 ; Chronic pain syndrome G89.4 and Tooth infection K04.7 [place] [address] [place] [address] 53659- 6171 Oct, Type 2 diabetes mellitus with hyperglycemia E11.65 [place] [address] [place] [address] 09011- 2461 Sep, [place] [id number] [place] [address] 12216- 8412 Sep, Chronic kidney disease, stage 4 (severe) N18.4 [facility] [id number] [place] [address] 65814- 2989 Aug, [place] [address] [place] [address] 79907- 5537 Aug, Type 2 diabetes mellitus with hyperglycemia E11.65 [facility] [address] [place] [address] [id number] Aug, Dental examination Z01.20 [place] [id number] [place] [address] 30860- 8297 Jul, Chronic kidney disease, stage 4 (severe) N18.4 [place] [id number] [place] [address] 76245- 9780 Jul, [place] [address] 39299- 1070 Jul, Type 2 diabetes mellitus with hyperglycemia E11.65 ; Chronic kidney disease, stage 4 (severe) N18.4 ; half-way current use of insulin Z79.4 ; Essential hypertension I10 ; Neuropathy G62.9 and Malignant neoplasm of upper-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 C50.412 [place] [id number] [place] [address] 73809- 3170 Jun, [place] [address] [id number] [place] [address] 43178- 9434 May, [place] [id number] [place] [address] 02613- 4026 Apr, [place] [id number] [place] [address] 16584- 4762 Apr, Type 2 diabetes mellitus with hyperglycemia E11.65 and Chronic kidney disease, stage 4 (severe) N18.4 [place] [address] [place] [address] 61483- 8492 Apr, Type 2 diabetes mellitus with hyperglycemia E11.65 [place] [id number] [place] [address] 70452- 9468 Mar, [place] [id number] [place] [address] 09454- 5986 Mar, Type 2 diabetes mellitus with hyperglycemia E11.65 ; half-way current use of 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 [id number] [id number] February, Dental examination Z01.20 [facility] [address], [place] [address] February, Open toe wound, initial encounter S91.109A [facility] [address] [address]- 5128 February, [facility] [id number] [place] [address] 70226- 6660 February, [facility] [id number] [place] [address] 37589- 3540 February, Hyperkalemia E87.5 [facility] [id number] [place] [address] 07327- 1853 February, Hyperkalemia E87.5 [facility] [id number] [place] [address] 82088- 8300 February, Hyperkalemia E87.5 [facility] [id number] [place] [address] 49804- 8575 Jan, [facility] [id number] [place] [address] 18919- 2443 Dec, [facility] [address], [place] [address]- 9834 Dec, [facility] [id number] [place] [address] 90438- 8631 Dec, Type 2 diabetes mellitus with hyperglycemia E11.65 ; half-way current use of insulin Z79.4 ; Essential hypertension I10 ; Malignant neoplasm of upper-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 C50.412 ; Neuropathy G62.9 and Dental caries on smooth surface penetrating into pulp K02.63 [facility] [address] [address] 1385 Dec, [facility] [id number] [place] [address] 43149- 0423 Nov, [facility] [address], [place] [address]- 2310 Nov, [facility] [id number] [place] [address] 75813- 1341 Oct, Onychocryptosis L60.0 [facility] [id number] [place] [address] 49833- 5412 Oct, [facility] [id number] [place] [address] 76260- 8373 Sep, Type 2 diabetes mellitus with hyperglycemia E11.65 ; strategic buyer current use of insulin Z79.4 ; Essential hypertension I10 ; Malignant neoplasm of upper-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 C50.412 and Neuropathy G62.9 [facility] [address] [place] [address] 80110- 4573 Sep, [facility] [id number] [place] [address] 02398- 4836 Aug, Onychocryptosis L60.0 and Onychomycosis B35.1 [facility] [address] [place] [address] 45483- 0483 Aug, [facility] [address] [place] [address] 98182- 9839 Aug, [facility] [address] [place] [address] 78368- 9796 Jul, Pneumonia of right middle lobe due to infectious organism J18.9 [facility] [address], [place] [address]- 5327 Jul, [facility] [id number] [place] [address] 72833- 3018 Jul, [facility] [address] [place] [address] 34703- 1597 Jul, [facility] [id number] [place] [address] 03788- 3994 Jun, Diabetes mellitus 250.00 ; DM w/o complication type II, uncontrolled 250.02 ; Breast cancer, left 174.9 ; Personal history of antineoplastic chemotherapy V87.41 ; Back pain 724.5 ; Hip pain 719.45 and Ingrown left greater toenail 703.0 [facility] [address], [place] [address]- 9522 Apr, Diabetes mellitus 250.00 ; Breast cancer, left 174.9 ; Personal history of antineoplastic chemotherapy V87.41 ; Back pain 724.5 and Hip pain 719.45 [facility] [address] [place] [address] 26265- 9927 Apr, [facility] [address] [place] [address] 35481- 9852 Mar, Diabetes mellitus 250.00 ; Breast cancer, left 174.9 ; Personal history of antineoplastic chemotherapy V87.41 ; Back pain 724.5 and Hip pain 719.45 [facility] [address], [place] [address]- 0368 Mar, DM w/o complication type II, uncontrolled 250.02 ; Hypertension 401.9 and Breast cancer, left 174.9 IMMUNIZATIONS No Known Immunizations SOCIAL HISTORY Never Assessed REASON FOR VISIT Schedule with transportation PLAN OF CARE VITAL SIGNS MEDICATIONS Unknown [...]
--- OUTSIDE RECORDS SUMMARY | 2018-07-29 06:22 | XMS REPORT ---
Author Author BHAVANA QUINTERO Organization [facility] Address [address] [place] [address] Care Team Providers Care Nutrition Manager Name Role Phone BHAVANA QUINTERO Unavailable PROBLEMS Type Condition ICD9-CM Code PKS48-QZ Code Onset Dates Condition Status SNOMED Code Problem custodial current use of insulin Z79.4 Active 337449376 Problem Malignant neoplasm of upper-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 C50.412 Active 372670465 Problem Type 2 diabetes mellitus with hyperglycemia E11.65 Active 757432138255736 Problem Chronic kidney disease, stage 4 (severe) N18.4 Active 343621919 Problem Hyperkalemia E87.5 Active 01010586 Problem Essential hypertension I10 Active 42747243 Problem Neuropathy G62.9 Active 958464202 Problem Pre-operative examination Z01.818 Active 187033860 Problem 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 Active 334403362 Problem Hyperlipidemia LDL goal <70 E78.5 Active 87776580 Problem Chronic pain syndrome G89.4 Active 418636749 Problem Arthritis of right hip M16.11 Active 2733674457002296 Problem GERD without esophagitis K21.9 Active 682536100 ALLERGIES Substance Reaction Event Type Date Status Codeine Sulfate Unknown Drug Allergy Mar, Active ENCOUNTERS Encounter Location Date Diagnosis [facility] [address] [facility] [id number] [address] May, Type 2 diabetes mellitus with hyperglycemia E11.65 [facility] [address] [facility] [id number], [place] [address] May, [facility] [address] [id number] [address] May, Type 2 diabetes mellitus with hyperglycemia E11.65 [facility] [address] [facility] [id number], [place] [address] Apr, Type 2 diabetes mellitus with hyperglycemia E11.65 [facility] [address], [place] [address] Apr, Type 2 diabetes mellitus with hyperglycemia E11.65 [facility] [address] [address] Apr, [facility] [id number] [place] [address] 83729[address]39 Mar, [facility] [id number] [place] [address] 09128- 5230 Mar, Type 2 diabetes mellitus with hyperglycemia E11.65 ; Essential hypertension I10 ; Chronic kidney disease, stage 4 (severe) N18.[address] [facility] [address], [place] [address] Mar, Type 2 diabetes mellitus with hyperglycemia E11.65 [facility] [address] [address] February, Chronic kidney disease, stage 4 (severe) N18.4 [facility] [address], [place] [address] February, [facility] [address] [address] February, [facility] [address], [place] [address] Jan, Type 2 diabetes mellitus with hyperglycemia E11.65 [facility] [address], [place] [address] Dec, Type 2 diabetes mellitus with hyperglycemia E11.65 [facility] [address], [place] [address] Dec, Type 2 diabetes mellitus with hyperglycemia E11.65 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 ; Type 2 diabetes mellitus with hyperglycemia E11.65 ; Chronic pain syndrome G89.4 ; Hyperlipidemia LDL goal <70 E78.5 ; GERD without esophagitis K21.9 and Neuropathy G62.9 [place] [id number] [place] [address] 36728- 9945 Nov, [place] [id number] [place] [address] 11791- 6573 Oct, [place] [id number] [place] [address] 83640- 0169 Oct, Pre-operative examination Z01.818 and Chronic kidney disease , stage 4 (severe) N18.4 [place] [id number] [place] [address] 39352- 4424 Sep, [place] [id number] [place] [address] 97793- 1813 Sep, Essential hypertension I10 [id number] [place] [address] 93853- 8702 Sep, Chronic pain syndrome G89.4 [place] [id number] [place] [address] 24161- 5986 Aug, Type 2 diabetes mellitus with hyperglycemia E11.65 ; custodial current use of insulin Z79.4 ; Essential hypertension I10 ; Chronic kidney disease, stage 4 (severe) N18.4 ; Chronic pain syndrome G89.4 ; Hyperlipidemia LDL goal <70 E78.5 ; GERD without esophagitis K21.9 ; Neuropathy G62.9 and Vertigo R42 [place] [id number] [place] [address] 26539- 9715 Aug, [place] [id number] [place] [address] 77775- 3833 Aug, [place] [address] [address] Aug, Chronic pain syndrome G89.4 [place] [address], [place] [address] Jul, Chronic pain syndrome G89.4 [place] [address], [place] [address] Jun, Type 2 diabetes mellitus with hyperglycemia E11.65 [place] [address], [place] [address] Jun, Preoperative examination Z01.818 [place] [id number] [place] [address] 62942- 1169 Jun, Chronic pain syndrome G89.4 [place] [id number] [place] [address] 47078- 4488 May, Type 2 diabetes mellitus with hyperglycemia E11.65 [place] [address] [address] May, Chronic pain syndrome G89.4 [place] [id number] [place] [address] 08579- 4066 Apr, Type 2 diabetes mellitus with hyperglycemia [...] M16.11 and Pain in right knee M25.561 [place] [address], [place] [address] Apr, Type 2 diabetes mellitus with hyperglycemia E11.65 [place] [address], [place] [address] 1716 Apr, Chronic pain syndrome G89.4 [place] [address], [place] [address] 2861 Apr, 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 [place] [id number] [place] [address] 22605- 7286 Mar, Type 2 diabetes mellitus with hyperglycemia E11.65 ; 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 ; Essential hypertension I10 ; Malignant neoplasm of upper-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 C50.412 ; Neuropathy G62.9 ; Chronic kidney disease, stage 4 (severe) N18.4 ; Chronic pain syndrome G89.4 ; Hyperlipidemia LDL goal <70 E78.5 ; GERD without esophagitis K21.9 ; Arthritis of right hip M16.11 and Pain in right knee M25.561 [place] [id number] [place] [address] 67191- 5969 February, Chronic pain syndrome G89.4 [facility] [id number] [place] [address] [id number] February, Dental caries K02.9 [place] [id number] [place] [address] 57552- 5931 Jan, Type 2 diabetes mellitus with hyperglycemia E11.65 [address] [id number] [place] [address] 26899- 2172 Jan, Type 2 diabetes mellitus with hyperglycemia E11.65 ; custodial current use of insulin Z79.4 ; Essential hypertension I10 ; Malignant neoplasm of upper-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 C50.412 ; Neuropathy G62.9 ; Chronic kidney disease, stage 4 (severe) N18.4 ; Chronic pain syndrome G89.4 ; Hyperlipidemia LDL goal <70 E78.5 and GERD without esophagitis K21.9 [place] [id number] [place] [address] 46967- 6148 Jan, Type 2 diabetes mellitus with hyperglycemia E11.65 [place] [id number] [place] [address] 41824- 5487 Dec, Chronic pain syndrome G89.4 [place] [id number] [address] 7645 Nov, Type 2 diabetes mellitus with hyperglycemia E11.65 [facility] [id number] [place] [address] 14094- 4715 Nov, Type 2 diabetes mellitus with hyperglycemia E11.65 [place] [id number] [place] [address] 09868- 9947 Nov, [place] [id number] [place] [address] 53009- 8756 Nov, Chronic pain syndrome G89.4 [facility] [id number] [place] [address] [id number] Nov, Dental caries K02.9 [place] [id number] [place] [address] 69952- 0217 Oct, Type 2 diabetes mellitus with hyperglycemia E11.65 ; Encounter for immunization Z23 ; Chronic kidney disease, stage 4 (severe) N18.4 ; custodial current use of insulin Z79.4 ; Essential hypertension I10 ; Neuropathy G62.9 ; Malignant neoplasm of upper-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 C50.412 ; Chronic pain syndrome G89.4 and Tooth infection K04.7 [place] [id number] [place] [address] 69683- 9084 Oct, Type 2 diabetes mellitus with hyperglycemia E11.65 [place] [id number] [place] [address] 06332- 7321 Sep, [place] [id number] [place] [address] 84259- 7947 Sep, Chronic kidney disease, stage 4 (severe) N18.4 [place] [id number] [place] [address] 24700- 6800 Aug, [place] [id number] [place] [address] 85587- 7385 Aug, Type 2 diabetes mellitus with hyperglycemia E11.65 [facility] [address] [address] Aug, Dental examination Z01.20 [place] [id number] [place] [address] 28162- 7530 Jul, Chronic kidney disease, stage 4 (severe) N18.4 [place] [id number] [place] [address] 25752- 7110 Jul, [place] [id number] [place] [address] 68127- 2738 Jul, Type 2 diabetes mellitus with hyperglycemia E11.65 ; Chronic kidney disease, stage 4 (severe) N18.4 ; custodial current use of insulin Z79.4 ; Essential hypertension I10 ; Neuropathy G62.9 and Malignant neoplasm of upper-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 C50.412 [place] [id number] [place] [address] 99574- 3909 Jun, [place] [address] [place] [address] 11978- 9093 May, [place] [id number] [place] [address] 04396- 0828 Apr, [place] [id number] [place] [address] 11359- 7120 Apr, Type 2 diabetes mellitus with hyperglycemia E11.65 and Chronic kidney disease, stage 4 (severe) N18.4 [place] [id number] [place] [address] 60368- 2997 Apr, Type 2 diabetes mellitus with hyperglycemia E11.65 [place] [id number] [place] [address] 86551- 5768 Mar, [place] [id number] [place] [address] 48927777- 9345 Mar, Type 2 diabetes mellitus with hyperglycemia E11.65 ; custodial current use of insulin Z79.4 ; Neuropathy G62.9 and Foot ulcer, left, limited to breakdown of skin L97.521 [facility] [id number] [address] February, Dental examination Z01.20 [facility] [address] [place] [address] 77912 -9392 February, Open toe wound, initial encounter S91.109A [facility] [address], [place] [address]- 9288 February, [facility] [id number] [place] [address] 41481- 8652 February, [facility] [id number] [place] [address] 51926- 6092 February, Hyperkalemia E87.5 [facility] [id number] [place] [address] 24768- 5008 February, Hyperkalemia E87.5 [facility] [id number] [place] [address] 16179- 3756 February, Hyperkalemia E87.5 [facility] [id number] [place] [address] 59556- 0026 Jan, [facility] [id number] [place] [address] 57759- 9261 Dec, [facility] [address], [place] [address]- 1555 Dec, 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 [address], [place] [address]- 4438 Dec, [facility] [id number] [place] [address] 20580- 9605 Nov, [facility] [id number] [place] [address] 00952- 1040 Nov, [facility] [id number] [place] [address] 75574- 0308 Oct, Onychocryptosis L60.0 [facility] [id number] [place] [address] 23693- 2857 Oct, [facility] [id number] [place] [address] 48579- 9757 Sep, Type 2 diabetes mellitus with hyperglycemia E11.65 ; custodial current use of insulin Z79.4 ; Essential hypertension I10 ; Malignant neoplasm of upper-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 C50.[address] [facility] [id number] [place] [address] 45996- 3083 Sep, [facility] [id number] [place] [address] 00577- 1502 Aug, On[address]ocryptosis L60.[address] [facility] [id number] [place] [address] 61596- 0310 Aug, [facility] [id number] [place] [address] 95344- 0649 Aug, [facility] [id number] [place] [address] 20281- 9481 Jul, Pneumonia of right middle lobe due to infectious organism J18.9 [facility] [id number] [place] [address] 89056- 0689 Jul, [facility] [id number] [place] [address] 48177- 4888 Jul, [facility] [id number] [place] [address] 50137- 2699 Jul, [facility] [address] [address]- 2032 Jun, Diabetes mellitus 250.00 ; DM w/o complication type II, uncontrolled 250.02 ; Breast cancer, left 174.9 ; Personal history of antineoplastic chemotherapy V87.41 ; Back pain 724.5 ; Hip pain 719.45 and Ingrown left greater toenail 703.0 [facility] [address] [place] [address] 01629- 8083 Apr, Diabetes mellitus 250.00 ; Breast cancer, left 174.9 ; Personal history of antineoplastic chemotherapy V87.41 ; Back pain 724.5 and Hip pain 719.45 [place] [id number] [place] [address] 47477- 5190 Apr, [facility] [address] [place] [address] 61169- 2327 Mar, Diabetes mellitus 250.00 ; Breast cancer, left 174.9 ; Personal history of antineoplastic chemotherapy V87.41 ; Back pain 724.5 and Hip pain 719.45 [place] [id number] [place] [address] 12894- 3356 Mar, DM w/o complication type II, uncontrolled 250.02 ; Hypertension 401.9 and Breast cancer, left 174.9 IMMUNIZATIONS No Known Immunizations SOCIAL HISTORY Never Assessed REASON FOR VISIT Establish Care, PT reports her right ear has been making a thumping sound the last two weeks. -Vineet CATHERINE , PHQ2, AUDIT C, A1c PLAN OF CARE Activity Details Follow Up 3 Months Reason: VITAL SIGNS Height 68 in 2018-04-18 Weight 222.9 lbs 2018-04-18 Temperature 97.9 degrees Fahrenheit 2018-04-18 Heart Rate 72 bpm 2018-04-18 Respiratory Rate 20 2018-04-18 Oximetry on room air:97 % 2018-04-18 BMI 33.89 kg/m2 2018-04-18 Blood pressure systolic 130 mmHg 2018-04-18 Blood pressure diastolic 72 mmHg 2018-04-18 MEDICATIONS Medication Instructions Dosage Frequency Start Date End Date Duration Status Metoprolol Succinate ER 25 MG Orally Once a day 1 tablet 24h 30 Active Folic Acid 400 MCG Orally Once a day 1 tablet 24h Active Gabapentin 300 MG TAKE ONE CAPSULE BY MOUTH TWICE DAILY 30 Active Metoprolol Tartrate 25 MG Orally Twice a day 0.5 tablet with food 12h Sep, 30 day(s) Active Vitamin D3 5000 UNIT Orally Once a day 24h Active Pantoprazole Sodium 40 mg Orally Once a day 1 tablet 24h 30 Active NovoLog Flexpen 100 unit/ml Subcutaneous 3 times daily with meals, per sliding scale 14 units 30 days Active Acetaminophen 500 MG Orally every 6 hrs 2 capsules as needed 6h Active Atorvastatin Calcium 10 MG TAKE ONE TABLET BY MOUTH ONCE DAILY 30 Active Letrozole 2.5 MG Orally Once a day 1 tablet 24h Active Hydrochlorothiazide 25 MG TAKE ONE TABLET BY MOUTH ONCE DAILY 30 Active FreeStyle Lite Test - In Vitro 4 times a day TEST FOUR TIMES A DAY BEFORE MEALS AND AT BEDTIME 6h Active Lisinopril 40 MG TAKE ONE TABLET BY MOUTH ONCE DAILY 30 Active Lofibra 134 MG TAKE ONE CAPSULE BY MOUTH ONCE DAILY WITH A MEAL 30 Active Aspir-81 81 MG Orally Once a day 1 tablet 24h Active Tresiba FlexTouch 200 UNIT/ML Subcutaneous at bedtime 50 u 28 Mar, 2018 Active Pantoprazole Sodium 40 MG TAKE ONE TABLET BY MOUTH ONCE DAILY 30 Active Fish Oil 1000 MG Orally three times a day 1 capsule 8h Active Pen Surprise 1/2" 29G X 12MM subcutaneously 5 times per day as directed Active Roller Walker - rolling walker with seat Active Magnesium Oxide 400 mg Orally 3 times a day 1 capsule 8h Active Amlodipine Besylate 5 MG TAKE ONE TABLET BY MOUTH ONCE DAILY 30 Active RESULTS Name Result Date Reference Range A1C (IN HOUSE) 2018-04-18 A1C IN HOUSE 7.3 4.3 - 5.6 % Previous A1c 7.5 Lot [id number] Exp date 12/2019 PROCEDURES Procedure Date Ordered Result Body Site GLYCATED HEMOGLOBIN TEST April 18, 2018 INSTRUCTIONS MEDICATIONS ADMINISTERED No Known Medications MEDICAL (GENERAL) HISTORY Type Description Date Medical History type II diabetes Medical History hypertension Medical History breast cancer- stage 3. Medical History Received chemotherapy every 3 weeks at [facility] under Dr Billingsley - Chemotherapy completed/now [...]
--- OUTSIDE RECORDS SUMMARY | 2018-07-29 06:23 | XMS REPORT ---
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 Active 223630951 Problem Malignant neoplasm of upper-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 C50.412 Active 660286105 Problem Type 2 diabetes mellitus with hyperglycemia E11.65 Active 493087389048041 Problem Chronic kidney disease, stage 4 (severe) N18.4 Active 053800837 Problem Hyperkalemia E87.5 Active 85419257 Problem Essential hypertension I10 Active 82337258 Problem Neuropathy G62.9 Active 997940723 Problem Pre-operative examination Z01.818 Active 330153559 Problem 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 Active 712582378 Problem Hyperlipidemia LDL goal <70 E78.5 Active 15831791 Problem Chronic pain syndrome G89.4 Active 817014179 Problem Arthritis of right hip M16.11 Active 6016510927403250 Problem GERD without esophagitis K21.9 Active 019606201 ALLERGIES No Information ENCOUNTERS Encounter Location Date Diagnosis [place] [id number], [place] [address] Apr, Type 2 diabetes mellitus with hyperglycemia E11.65 [facility] [id number], [place] [address] Apr, Type 2 diabetes mellitus with hyperglycemia E11.65 [place] [address] [place] [address] 80898- 3269 Apr, [facility] [address], [place] [address] Mar, [place] [address], [place] [address] Mar, Type 2 diabetes mellitus with hyperglycemia E11.65 ; Essential hypertension I10 ; Chronic kidney disease, stage 4 (severe) N18.4 and Neuropathy G62.9 [place] [address], [place] [address] Mar, Type 2 diabetes mellitus with hyperglycemia E11.65 [place] [address] [place] [id number] [place] [address] 08516- 3857 February, Chronic kidney disease, stage 4 (severe) N18.4 [place] [address] [address] [id number] [place] [address] 14842- 0298 February, [place] [address] [id number] [place] [address] 40407- 1378 February, [place] [address] [place] [id number] [place] [address] 23961- 5192 Jan, Type 2 diabetes mellitus with hyperglycemia E11.65 [place] [address] [place] [address] 05276- 5567 Dec, Type 2 diabetes mellitus with hyperglycemia E11.65 [place] [address] [place] [address] 36652- 0148 Dec, Type 2 diabetes mellitus with hyperglycemia E11.65 [place] [address], [place] [address] 1075 Dec, Type 2 diabetes mellitus with hyperglycemia E11.65 [place] [address] [place] [address] 47374- 9178 Dec, Essential hypertension I10 ; Chronic kidney disease, stage 4 (severe) N18.4 ; stemhole borer current use of insulin Z79.4 ; Type 2 diabetes mellitus with hyperglycemia E11.65 ; Chronic pain syndrome G89.4 ; Hyperlipidemia LDL goal <70 E78.5 ; GERD without esophagitis K21.9 and Neuropathy G62.9 [place] [address] [id number] [place] [address] 14204- 1495 Nov, [facility] [id number] [place] [address] 50743- 4969 Oct, [facility] [id number] [place] [address] 06498- 8820 Oct, Pre-operative examination Z01.818 and Chronic kidney disease , stage 4 (severe) N18.4 [facility] [address] [place] [id number] [place] [address] 24817- 1595 Sep, [facility] [id number] [place] [address] 00291- 0848 Sep, Essential hypertension I10 [place] [address] [place] [id number] [place] [address] 30748- 7284 Sep, Chronic pain syndrome G89.4 [place] [address] [id number] [place] [address] 66393- 8695 Aug, Type 2 diabetes mellitus with hyperglycemia E11.65 ; half-way current use of insulin Z79.4 ; Essential hypertension I10 ; Chronic kidney disease, stage 4 (severe) N18.4 ; Chronic pain syndrome G89.4 ; Hyperlipidemia LDL goal <70 E78.5 ; GERD without esophagitis K21.9 ; Neuropathy G62.9 and Vertigo R42 [place] [address] [place] [address] 00610- 2975 15 Aug, 2017 [facility] [address] [id number] [place] [address] 17190- 2672 Aug, [facility] [id number] [place] [address] 65406- 2118 Aug, Chronic pain syndrome G89.4 [facility] [address] [id number] [place] [address] 91644- 4933 Jul, Chronic pain syndrome G89.4 [facility] [id number] [place] [address] 45529- 6615 25 Jun, 2017 Type 2 diabetes mellitus with hyperglycemia E11.65 [place] [address], [place] [address] 0170 Jun, Preoperative examination Z01.818 [place] [id number] [place] [address] 68103- 1100 Jun, Chronic pain syndrome G89.4 [place] [id number] [place] [address] 61262- 9735 May, Type 2 diabetes mellitus with hyperglycemia E11.65 [place] [id number] [place] [address] 38484- 9081 May, Chronic pain syndrome G89.4 [place] [id number] [place] [address] 43726- 0752 Apr, Type 2 diabetes mellitus with hyperglycemia E11.65 ; stemhole borer current use of insulin Z79.4 ; Essential hypertension I10 ; Malignant neoplasm of upper-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 C50.412 ; Neuropathy G62.9 ; Chronic kidney disease, stage 4 (severe) N18.4 ; Chronic pain syndrome G89.4 ; Hyperlipidemia LDL goal <70 E78.5 ; GERD without esophagitis K21.9 ; Arthritis of right hip M16.11 and Pain in right knee M25.561 [address] [place] [address] 20132- 2175 Apr, Type 2 diabetes mellitus with hyperglycemia E11.65 [address] [place] [address] 33437- 1710 Apr, Chronic pain syndrome G89.4 [place] [id number] [place] [address] 71485- 3822 Apr, 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 [place] [id number] [place] [address] 98604- 2476 Mar, Type 2 diabetes mellitus with hyperglycemia E11.65 ; stemhole borer current use of insulin Z79.4 ; Essential hypertension I10 ; Malignant neoplasm of upper-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 C50.412 ; Neuropathy G62.9 ; Chronic kidney disease, stage 4 (severe) N18.4 ; Chronic pain syndrome G89.4 ; Hyperlipidemia LDL goal <70 E78.5 ; GERD without esophagitis K21.9 ; Arthritis of right hip M16.11 and Pain in right knee M25.561 [facility] [address] [place] [address] 72370- 1534 February, Chronic pain syndrome G89.4 [facility] [id number] [place] [address] [phone] February, Dental caries K02.9 [place] [address] [address]- 2239 Jan, Type 2 diabetes mellitus with hyperglycemia E11.65 [place] [address] 92700- 7358 Jan, Type 2 diabetes mellitus with hyperglycemia E11.65 ; half-way current use of insulin Z79.4 ; Essential hypertension I10 ; Malignant neoplasm of upper-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 C50.412 ; Neuropathy G62.9 ; Chronic kidney disease, stage 4 (severe) N18.4 ; Chronic pain syndrome G89.4 ; Hyperlipidemia LDL goal <70 E78.5 and GERD without esophagitis K21.9 [place] [address] [id number] [place] [address] 21297- 4855 Jan, Type 2 diabetes mellitus with hyperglycemia E11.65 [place] [address] [address] [id number] [place] [address] 42841- 5470 Dec, Chronic pain syndrome G89.4 [place] [address] [address] [id number] [place] [address] 85202- 0380 Nov, Type 2 diabetes mellitus with hyperglycemia E11.65 [place] [address] 12219- 4810 Nov, Type 2 diabetes mellitus with hyperglycemia E11.65 [place] [address] [id number] [place] [address] 14104- 6350 Nov, [place] [address] [place] [address]- 3532 15 Nov, 2016 Chronic pain syndrome G89.4 [facility] [id number] [place] [address] [id number] 15 Nov, 2016 Dental caries K02.9 [facility] [id number] [place] [address] 82061- 5815 18 Oct, 2016 Type 2 diabetes mellitus with hyperglycemia E11.65 ; Encounter for immunization Z23 ; Chronic kidney disease, stage 4 (severe) N18.4 ; half-way current use of insulin Z79.4 ; Essential hypertension I10 ; Neuropathy G62.9 ; Malignant neoplasm of upper-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 C50.412 ; Chronic pain syndrome G89.4 and Tooth infection K04.7 [facility] [id number] [place] [address] 08132- 4218 Oct, Type 2 diabetes mellitus with hyperglycemia E11.65 [facility] [address] 02802- 5848 Sep, [facility] [address] 20550- 8741 Sep, Chronic kidney disease, stage 4 (severe) N18.4 [facility] [address] [address] [id number] [place] [address] 95607- 3765 Aug, [facility] [id number] [place] [address] 09776- 1432 Aug, Type 2 diabetes mellitus with hyperglycemia E11.65 [facility] [id number] [place] [address] [phone] Aug, Dental examination Z01.20 [facility] [id number] [place] [address] 98802- 5695 Jul, Chronic kidney disease, stage 4 (severe) N18.4 [facility] [id number] [place] [address] 72575- 2971 Jul, [facility] [address] 12729- 0473 Jul, Type 2 diabetes mellitus with hyperglycemia E11.65 ; Chronic kidney disease, stage 4 (severe) N18.4 ; stemhole borer current use of insulin Z79.4 ; Essential hypertension I10 ; Neuropathy G62.9 and Malignant neoplasm of upper-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 C50.412 [facility] [id number] [place] [address] 40878- 5579 Jun, [facility] [address] 13052- 9874 May, [facility] [id number] [place] [address] 72118- 1480 Apr, [place] [address] 07298- 1298 Apr, Type 2 diabetes mellitus with hyperglycemia E11.65 and Chronic kidney disease, stage 4 (severe) N18.4 [facility] [address] [id number] [place] [address] 72294- 6476 Apr, Type 2 diabetes mellitus with hyperglycemia E11.65 [place] [address] [address] [id number] [place] [address] 86964- 2531 Mar, [place] [address] [address] [id number] [place] [address] 67044- 9948 Mar, Type 2 diabetes mellitus with hyperglycemia E11.65 ; stemhole borer current use of insulin Z79.4 ; Neuropathy G62.9 and Foot ulcer, left, limited to breakdown of skin L97.521 [facility] [id number] [place] [address] [phone] February, Dental examination Z01.20 [facility] [address] 34631 -7323 February, Open toe wound, initial encounter S91.109A [facility] [id number] [place] [address] 74372- 4667 February, [facility] [address] 49136- 6924 February, [facility] [address], [place] [address]- 3806 February, Hyperkalemia E87.5 [facility] [id number] [place] [address] 43655- 5978 February, Hyperkalemia E87.5 [facility] [id number] [place] [address] 33802- 9391 February, Hyperkalemia E87.5 [facility] [address] [place] [address] 28780- 5263 Jan, [facility] [id number] [place] [address] 57914- 5416 Dec, [facility] [id number] [place] [address] 24721- 4891 Dec, [facility] [id number] [place] [address] 14464- 4620 Dec, Type 2 diabetes mellitus with hyperglycemia E11.65 ; half-way current use of insulin Z79.4 ; Essential hypertension I10 ; Malignant neoplasm of upper-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 C50.412 ; Neuropathy G62.9 and Dental caries on smooth surface penetrating into pulp K02.63 [facility] [address], [place] [address]- 3838 Dec, [facility] [id number] [place] [address] 49082- 9249 Nov, [facility] [address] [place] [address] 26419- 7011 Nov, [facility] [id number] [place] [address] 62656- 5051 Oct, Onychocryptosis L60.0 [facility] [address], [place] [address]- 2469 Oct, [facility] [id number] [place] [address] 04224- 7042 Sep, Type 2 diabetes mellitus with hyperglycemia E11.65 ; half-way current use of insulin Z79.4 ; Essential hypertension I10 ; Malignant neoplasm of upper-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 C50.412 and Neuropathy G62.9 [place] [address] [id number] [place] [address] 29715- 2890 Sep, [place] [address] [id number] [place] [address] 89456- 3933 Aug, Onychocryptosis L60.0 and Onychomycosis B35.[address] 45153- 8748 Aug, [place] [address] [id number] [place] [address] 10767- 1472 Aug, [place] [address] 66348- 1447 Jul, Pneumonia of right middle lobe due to infectious organism J18.9 [place] [address] [address] [id number] [place] [address] 73571- 1625 Jul, [place] [id number] [place] [address] 49198- 0616 Jul, [place] [id number] [place] [address] 10286- 8573 Jul, [place] [address] [address] [id number] [place] [address] 38819- 2385 Jun, Diabetes mellitus 250.00 ; DM w/o complication type II, uncontrolled 250.02 ; Breast cancer, left 174.9 ; Personal history of antineoplastic chemotherapy V87.41 ; Back pain 724.5 ; Hip pain 719.45 and Ingrown left greater toenail 703.0 [place] [address] [place] [address] 37708- 6211 Apr, Diabetes mellitus 250.00 ; Breast cancer, left 174.9 ; Personal history of antineoplastic chemotherapy V87.41 ; Back pain 724.5 and Hip pain 719.45 [facility] [address] [facility] [id number] [address]- 7852 Apr, [facility] [address] [facility] [id number]- 2132 Mar, Diabetes mellitus 250.00 ; Breast cancer, left 174.9 ; Personal history of antineoplastic chemotherapy V87.41 ; Back pain 724.5 and Hip pain 719.45 [facility] [address] [facility] [id number] [address]- 6148 Mar, DM w/o complication type II, uncontrolled 250.02 ; Hypertension 401.9 and Breast cancer, left 174.9 IMMUNIZATIONS No Known Immunizations SOCIAL HISTORY Never Assessed REASON FOR VISIT Diabetic Supply PLAN OF CARE VITAL SIGNS MEDICATIONS Medication Instructions Dosage Frequency Start Date End Date Duration Status FreeStyle Lite Test - In Vitro 4 times a day TEST FOUR TIMES A DAY BEFORE MEALS AND AT BEDTIME 6h Active RESULTS No Results PROCEDURES No Known procedures INSTRUCTIONS MEDICATIONS ADMINISTERED No Known Medications MEDICAL (GENERAL) HISTORY Type Description Date Medical History type II diabetes Medical History hypertension Medical History breast cancer- stage 3. Medical History Received chemotherapy every 3 weeks at [facility] under Dr Billingsley - Chemotherapy completed/now [...]
--- OUTSIDE RECORDS SUMMARY | 2018-07-29 06:23 | XMS REPORT ---
Author Author ENRRIQUE FUENTES [facility] Address [address] [place] [address] Care Team Providers Care Custodian Name Role Phone ENRRIQUE FUENTES Unavailable PROBLEMS Type Condition ICD9-CM Code [id number] Code Onset Dates Condition Status SNOMED Code Problem terminologist current use of insulin Z79.4 Active 673099631 Problem Malignant neoplasm of upper-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 C50.412 Active 048038159 Problem Type 2 diabetes mellitus with hyperglycemia E11.65 Active 063038287471052 Problem Chronic kidney disease, stage 4 (severe) N18.4 Active 064299762 Problem Hyperkalemia E87.5 Active 67806268 Problem Essential hypertension I10 Active 06375756 Problem Neuropathy G62.9 Active 922011875 Problem Pre-operative examination Z01.818 Active 088060487 Problem 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 Active 784345141 Problem Hyperlipidemia LDL goal <70 E78.5 Active 17987185 Problem Chronic pain syndrome G89.4 Active 472762065 Problem Arthritis of right hip M16.11 Active [id number] Problem GERD without esophagitis K21.9 Active 186074086 ALLERGIES No Information ENCOUNTERS Encounter Location Date Diagnosis [facility] [id number] [address] May, [facility] [id number] [place] [address]63- 4374 May, Type 2 diabetes mellitus with hyperglycemia E11.65 [facility] [id number] [place] [address] 48528- 8125 Apr, Type 2 diabetes mellitus with hyperglycemia E11.65 [facility] [id number] [address] 4804 Apr, Type 2 diabetes mellitus with hyperglycemia E11.65 [facility] [address] [address] Apr, [facility] [address] [address] Mar, [facility] [address] [address] Mar, Type 2 diabetes mellitus with hyperglycemia E11.65 ; Essential hypertension I10 ; Chronic kidney disease, stage 4 (severe) N18.4 and Neuropathy G62.9 [facility] [address] [address] Mar, Type 2 diabetes mellitus with hyperglycemia E11.65 [facility] [address] [address] February, Chronic kidney disease, stage 4 (severe) N18.4 [facility] [id number] [address] February, [facility] [address] [address] February, [facility] [address] [address] 67[address] Jan, Type 2 diabetes mellitus with hyperglycemia E11.65 [facility] [address] [address] 8989 Dec, Type 2 diabetes mellitus with hyperglycemia E11.65 [facility] [address] [address] 7343 Dec, Type 2 diabetes mellitus with hyperglycemia E11.65 [facility] [address] [address] 4749 Dec, Type 2 diabetes mellitus with hyperglycemia E11.65 [facility] [address] [address] 9283 Dec, Essential hypertension I10 ; Chronic kidney disease, stage 4 (severe) N18.4 ; custodial current use of insulin Z79.4 ; Type 2 diabetes mellitus with hyperglycemia E11.65 ; Chronic pain syndrome G89.4 ; Hyperlipidemia LDL goal <70 E78.5 ; GERD without esophagitis K21.9 and Neuropathy G62.9 [facility] [id number] [place] [address] 01141- 0246 Nov, [facility] [id number] [place] [address] 59589- 6978 Oct, [facility] [id number] [place] [address] 58647- 0927 Oct, Pre-operative examination Z01.818 and Chronic kidney disease , stage 4 (severe) N18.4 [facility] [id number] [place] [address] 57485- 6386 Sep, [facility] [id number] [place] [address] 54668- 2342 Sep, Essential hypertension I10 [facility] [id number] [place] [address] 87116- 8491 Sep, Chronic pain syndrome G89.4 [facility] [id number] [place] [address] 96572- 4530 Aug, Type 2 diabetes mellitus with hyperglycemia E11.65 ; terminologist current use of insulin Z79.4 ; Essential hypertension I10 ; Chronic kidney disease, stage 4 (severe) N18.4 ; Chronic pain syndrome G89.4 ; Hyperlipidemia LDL goal <70 E78.5 ; GERD without esophagitis K21.9 ; Neuropathy G62.9 and Vertigo R42 [facility] [id number] [place] [address] 33301- 5170 Aug, [facility] [id number] [place] [address] 53758- 3241 Aug, [facility] [id number] [place] [address] 51063- 5016 Aug, Chronic pain syndrome G89.4 [facility] [id number] [address]- 7199 Jul, Chronic pain syndrome G89.4 [facility] [id number] [place] [address] 96374- 7025 Jun, Type 2 diabetes mellitus with hyperglycemia E11.65 [facility] [id number] [place] [address] 96326- 5012 Jun, Preoperative examination Z01.818 [facility] [id number] [place] [address] 26528- 6981 Jun, Chronic pain syndrome G89.4 [facility] [id number] [place] [address] 64817- 3924 May, Type 2 diabetes mellitus with hyperglycemia E11.65 [facility] [id number] [place] [address] 90615- 8871 May, Chronic pain syndrome G89.4 [facility] [id number] [place] [address] 61813- 3595 Apr, Type 2 diabetes mellitus with hyperglycemia E11.65 ; terminologist current use of insulin Z79.4 ; Essential hypertension I10 ; Malignant neoplasm of upper-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 C50.412 ; Neuropathy G62.9 ; Chronic kidney disease, stage 4 (severe) N18.4 ; Chronic pain syndrome G89.4 ; Hyperlipidemia LDL goal <70 E78.5 ; GERD without esophagitis K21.9 ; Arthritis of right hip M16.11 and Pain in right knee M25.561 [facility] [address] [place] [address] 11346- 4144 Apr, Type 2 diabetes mellitus with hyperglycemia E11.65 [facility] [id number] [place] [address] 47052- 2811 Apr, Chronic pain syndrome G89.4 [facility] [id number] [place] [address] 64126- 8812 Apr, 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 [facility] [id number] [place] [address] 98906- 3800 Mar, Type 2 diabetes mellitus with hyperglycemia E11.65 ; terminologist current use of insulin Z79.4 ; Essential hypertension I10 ; Malignant neoplasm of upper-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 C50.412 ; Neuropathy G62.9 ; Chronic kidney disease, stage 4 (severe) N18.4 ; Chronic pain syndrome G89.4 ; Hyperlipidemia LDL goal <70 E78.5 ; GERD without esophagitis K21.9 ; Arthritis of right hip M16.11 and Pain in right knee M25.561 [facility] [id number] [place] [address] 88248- 1056 February, Chronic pain syndrome G89.4 [facility] [id number] [place] [address] [id number] February, Dental caries K02.9 [facility] [id number] [place] [address] 74989- 4013 Jan, Type 2 diabetes mellitus with hyperglycemia E11.65 [facility] [id number] [place] [address] 84318- 6292 Jan, Type 2 diabetes mellitus with hyperglycemia E11.65 ; terminologist current use of insulin Z79.4 ; Essential hypertension I10 ; Malignant neoplasm of upper-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 C50.412 ; Neuropathy G62.9 ; Chronic kidney disease, stage 4 (severe) N18.4 ; Chronic pain syndrome G89.4 ; Hyperlipidemia LDL goal <70 E78.5 and GERD without esophagitis K21.9 [facility] [address] [place] [address] 67961- 8401 Jan, Type 2 diabetes mellitus with hyperglycemia E11.65 [facility] [id number] [place] [address] 95438- 6569 Dec, Chronic pain syndrome G89.4 [facility] [id number] [place] [address] 25270- 2460 Nov, Type 2 diabetes mellitus with hyperglycemia E11.65 [facility] [id number] [place] [address] 25848- 1768 Nov, Type 2 diabetes mellitus with hyperglycemia E11.65 [facility] [id number] [place] [address] 54247- 8485 Nov, [facility] [id number] [place] [address] 64958- 2555 Nov, Chronic pain syndrome G89.4 [facility] [id number] [place] [address] [phone] Nov, Dental caries K02.9 [facility] [id number] [place] [address] 03974- 8385 Oct, Type 2 diabetes mellitus with hyperglycemia E11.65 ; Encounter for immunization Z23 ; Chronic kidney disease, stage 4 (severe) N18.4 ; custodial current use of insulin Z79.4 ; Essential hypertension I10 ; Neuropathy G62.9 ; Malignant neoplasm of upper-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 C50.412 ; Chronic pain syndrome G89.4 and Tooth infection K04.7 [facility] [address] [place] [address] 84037- 2839 Oct, Type 2 diabetes mellitus with hyperglycemia E11.65 [facility] [id number] [place] [address] 47631- 3332 Sep, [facility] [id number] [place] [address] 48260- 9593 Sep, Chronic kidney disease, stage 4 (severe) N18.4 [facility] [address] [place] [address] 90155- 8968 Aug, [facility] [id number] [place] [address] 85416- 5332 Aug, Type 2 diabetes mellitus with hyperglycemia E11.65 [facility] [id number] [place] [address] [phone] Aug, Dental examination Z01.20 [facility] [id number] [place] [address] 64883- 0833 Jul, Chronic kidney disease, stage 4 (severe) N18.4 [facility] [id number] [place] [address] 30109- 0436 Jul, [facility] [id number] [place] [address] 39041- 8236 Jul, Type 2 diabetes mellitus with hyperglycemia E11.65 ; Chronic kidney disease, stage 4 (severe) N18.4 ; custodial current use of insulin Z79.4 ; Essential hypertension I10 ; Neuropathy G62.9 and Malignant neoplasm of upper-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 C50.412 [id number] [place] [address] 19448- 4750 Jun, [facility] [id number] [place] [address] 60070- 0914 May, [address] [id number] [place] [address] 32186- 4620 Apr, [facility] [id number] [place] [address] 64762- 3382 Apr, Type 2 diabetes mellitus with hyperglycemia E11.65 and Chronic kidney disease, stage 4 (severe) N18.4 [facility] [id number] [place] [address] 42439- 9893 Apr, Type 2 diabetes mellitus with hyperglycemia E11.65 [id number] [place] [address] 28292- 9779 Mar, [id number] [place] [address] 94209- 4026 Mar, Type 2 diabetes mellitus with hyperglycemia E11.65 ; custodial current use of insulin Z79.4 ; Neuropathy G62.9 and Foot ulcer, left, limited to breakdown of skin L97.521 [facility] [id number] [place] [address] [phone] February, Dental examination Z01.20 [facility] [id number] [place] [address] 93772 -0299 February, Open toe wound, initial encounter S91.109A [facility] [address] [place] [address] 39722- 9812 February, [facility] [id number] [place] [address] 10481- 6123 February, [facility] [id number] [place] [address] 94509- 2283 February, Hyperkalemia E87.5 [facility] [id number] [place] [address] 62310- 0893 February, Hyperkalemia E87.5 [facility] [id number] [place] [address] 69707- 5657 February, Hyperkalemia E87.5 [facility] [id number] [place] [address] 02654- 5712 Jan, [facility] [id number] [place] [address] 19050- 8486 Dec, [facility] [id number] [place] [address] 47647- 2189 Dec, [facility] [id number] [place] [address] 26833- 2110 Dec, Type 2 diabetes mellitus with hyperglycemia E11.65 ; terminologist current use of insulin Z79.4 ; Essential hypertension I10 ; Malignant neoplasm of upper-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 C50.412 ; Neuropathy G62.9 and Dental caries on smooth surface penetrating into pulp K02.63 [facility] [address] [place] [address] 90626- 5602 Dec, [facility] [id number] [place] [address] 48942- 4660 Nov, [facility] [address] [address]- 8799 Nov, [facility] [address] [place] [address] 22606- 6764 Oct, Onychocryptosis L60.0 [facility] [id number] [place] [address] 45136- 3171 Oct, [facility] [id number] [place] [address] 65257- 9737 Sep, Type 2 diabetes mellitus with hyperglycemia E11.65 ; terminologist current use of insulin Z79.4 ; Essential hypertension I10 ; Malignant neoplasm of upper-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 C50.412 and Neuropathy G62.9 [facility] [id number] [place] [address] 03517- 5751 Sep, [facility] [id number] [place] [address] 79721- 3226 Aug, Onychocryptosis L60.0 and Onychomycosis B35.1 [facility] [id number] [place] [address] 74670- 7144 Aug, [facility] [id number] [place] [address] 67295- 0229 Aug, [facility] [id number] [place] [address] 25022- 8768 Jul, Pneumonia of right middle lobe due to infectious organism J18.9 [facility] [id number] [place] [address] 68019- 9972 Jul, [facility] [id number] [place] [address] 13276- 6705 Jul, [place] [facility] [id number] [place] [address] 05700- 8772 Jul, [facility] [id number] [place] [address] 79153- 4792 Jun, Diabetes mellitus 250.00 ; DM w/o complication type II, uncontrolled 250.02 ; Breast cancer, left 174.9 ; Personal history of antineoplastic chemotherapy V87.41 ; Back pain 724.5 ; Hip pain 719.45 and Ingrown left greater toenail 703.0 [facility] [id number] [address]- 4158 Apr, Diabetes mellitus 250.00 ; Breast cancer, left 174.9 ; Personal history of antineoplastic chemotherapy V87.41 ; Back pain 724.5 and Hip pain 719.45 [facility] [address] [address]- 1080 Apr, [facility] [address] [address]- 0935 Mar, Diabetes mellitus 250.00 ; Breast cancer, left 174.9 ; Personal history of antineoplastic chemotherapy V87.41 ; Back pain 724.5 and Hip pain 719.45 [facility] [address] [address]- 4951 Mar, DM w/o complication type II, uncontrolled 250.02 ; Hypertension 401.9 and Breast cancer, left 174.9 IMMUNIZATIONS No Known Immunizations SOCIAL HISTORY Never Assessed REASON FOR VISIT referral PLAN OF CARE VITAL SIGNS MEDICATIONS Unknown Medications RESULTS No Results PROCEDURES No Known procedures INSTRUCTIONS MEDICATIONS ADMINISTERED No Known Medications MEDICAL (GENERAL) HISTORY Type Description Date Medical History type II diabetes Medical History hypertension Medical History breast cancer- stage 3. Medical History Received chemotherapy every 3 weeks at [facility] under Dr Billingsley - Chemotherapy completed/now [...]
--- OUTSIDE RECORDS SUMMARY | 2018-07-29 06:23 | XMS REPORT ---
Author Author ENRRIQUE FUENTES [facility] Address [address] [place] [address] Care Team Providers Care Firearms Specialist Name Role Phone ENRRIQUE FUENTES Unavailable PROBLEMS Type Condition ICD9-CM Code WJE21-ZG Code Onset Dates Condition Status SNOMED Code Problem manager 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 current use of insulin Z79.4 Active 853069572 Problem Malignant neoplasm of upper-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 C50.412 Active 618309653 Problem Type 2 diabetes mellitus with hyperglycemia E11.65 Active 423625028464949 Problem Chronic kidney disease, stage 4 (severe) N18.4 Active 771310569 Problem Hyperkalemia E87.5 Active 56020529 Problem Essential hypertension I10 Active 88228508 Problem Neuropathy G62.9 Active 561541592 Problem Pre-operative examination Z01.818 Active 439495820 Problem 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 Active 751734633 Problem Hyperlipidemia LDL goal <70 E78.5 Active 40677748 Problem Chronic pain syndrome G89.4 Active 833257956 Problem Arthritis of right hip M16.11 Active [id number] Problem GERD without esophagitis K21.9 Active 554668490 ALLERGIES No Information ENCOUNTERS Encounter Location Date Diagnosis [place] [id number] [address] May, Type 2 diabetes mellitus with hyperglycemia E11.65 [facility] [address] [facility] [id number] [address] May, [place] [id number] [place] [address] 17907- 1632 May, Type 2 diabetes mellitus with hyperglycemia E11.65 [place] [id number], [place] [address] Apr, Type 2 diabetes mellitus with hyperglycemia E11.65 [facility] [address], [place] [address] Apr, Type 2 diabetes mellitus with hyperglycemia E11.65 [facility] [address], [place] [address] Apr, [facility] [address], [place] [address] Mar, [facility] [id number] [place] [address] 92027- 5575 Mar, Type 2 diabetes mellitus with hyperglycemia E11.65 ; Essential hypertension I10 ; Chronic kidney disease, stage 4 (severe) N18.4 and Neuropathy G62.9 [facility] [address], [place] [address] Mar, Type 2 diabetes mellitus with hyperglycemia E11.65 [facility] [address], [place] [address] February, Chronic kidney disease, stage 4 (severe) N18.4 [facility] [address], [place] [address] February, [facility] [address], [place] [address] 8[address] February, [facility] [address], [place] [address] 8647 Jan, Type 2 diabetes mellitus with hyperglycemia E11.65 [facility] [address], [place] [address] 0[address] Dec, Type 2 diabetes mellitus with hyperglycemia E11.65 [facility] [address], [place] [address] 7209 Dec, Type 2 diabetes mellitus with hyperglycemia E11.65 [facility] [address], [place] [address] 4[address] Dec, Type 2 diabetes mellitus with hyperglycemia E11.65 [facility] [id number] [place] [address] 74831- 9809 Dec, Essential hypertension I10 ; Chronic kidney disease, stage 4 (severe) N18.4 ; penitentiary current use of insulin Z79.4 ; Type 2 diabetes mellitus with hyperglycemia E11.65 ; Chronic pain syndrome G89.4 ; Hyperlipidemia LDL goal <70 E78.5 ; GERD without esophagitis K21.9 and Neuropathy G62.9 [place] [id number] [place] [address] 84649- 3164 Nov, [place] [id number] [place] [address] 54106- 7460 Oct, [place] [id number] [place] [address] 36655- 5502 Oct, Pre-operative examination Z01.818 and Chronic kidney disease , stage 4 (severe) N18.4 [place] [id number] [place] [address] 34876- 0444 Sep, [place] [id number] [place] [address] 06569- 2787 Sep, Essential hypertension I10 [place] [id number] [place] [address] 97960- 6585 Sep, Chronic pain syndrome G89.4 [place] [id number] [place] [address] 70466- 2639 Aug, Type 2 diabetes mellitus with hyperglycemia E11.65 ; manager 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 current use of insulin Z79.4 ; Essential hypertension I10 ; Chronic kidney disease, stage 4 (severe) N18.4 ; Chronic pain syndrome G89.4 ; Hyperlipidemia LDL goal <70 E78.5 ; GERD without esophagitis K21.9 ; Neuropathy G62.9 and Vertigo R42 [place] [id number] [place] [address] 24297- 8981 Aug, [place] [id number] [place] [address] 72666- 1119 Aug, [place] [id number] [place] [address] 33158- 3242 Aug, Chronic pain syndrome G89.4 [place] [id number] [place] [address] 58647- 4972 Jul, Chronic pain syndrome G89.4 [place] [address] [address]- 7749 Jun, Type 2 diabetes mellitus with hyperglycemia E11.65 [place] [address] [address]- 4[address] Jun, Preoperative examination Z01.818 [place] [address] [address]- 0251 Jun, Chronic pain syndrome G89.4 [place] [address] 64385- 4721 May, Type 2 diabetes mellitus with hyperglycemia E11.65 [place] [address] 68135- 6484 May, Chronic pain syndrome G89.4 [place] [address] 0[address]06- 6845 Apr, Type 2 diabetes mellitus with hyperglycemia E11.65 ; penitentiary current use of insulin Z79.4 ; Essential hypertension I10 ; Malignant neoplasm of upper-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 C50.412 ; Neuropathy G62.9 ; Chronic kidney disease, stage 4 (severe) N18.4 ; Chronic pain syndrome G89.4 ; Hyperlipidemia LDL goal <70 E78.5 ; GERD without esophagitis K21.9 ; Arthritis of right hip M16.11 and Pain in right knee M25.561 [place] [id number] [place] [address] 85943- 7029 Apr, Type 2 diabetes mellitus with hyperglycemia E11.65 [place] [id number] [place] [address] 06136- 7168 Apr, Chronic pain syndrome G89.4 [place] [address] [place] [address] 4298 Apr, 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 [place] [address] [address]- 8599 Mar, Type 2 diabetes mellitus with hyperglycemia E11.65 ; penitentiary current use of insulin Z79.4 ; Essential hypertension I10 ; Malignant neoplasm of upper-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 C50.412 ; Neuropathy G62.9 ; Chronic kidney disease, stage 4 (severe) N18.4 ; Chronic pain syndrome G89.4 ; Hyperlipidemia LDL goal <70 E78.5 ; GERD without esophagitis K21.9 ; Arthritis of right hip M16.11 and Pain in right knee M25.561 [place] [address] [address]- [address]29 February, Chronic pain syndrome G89.4 [facility] [address] [id number] February, Dental caries K02.9 [place] [id number] [place] [address] 96370- 9092 Jan, Type 2 diabetes mellitus with hyperglycemia E11.65 [place] [id number] [place] [address] 58245- 7183 Jan, Type 2 diabetes mellitus with hyperglycemia E11.65 ; manager 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 current use of insulin Z79.4 ; Essential hypertension I10 ; Malignant neoplasm of upper-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 C50.412 ; Neuropathy G62.9 ; Chronic kidney disease, stage 4 (severe) N18.4 ; Chronic pain syndrome G89.4 ; Hyperlipidemia LDL goal <70 E78.5 and GERD without esophagitis K21.9 [place] [address] 17048- 7127 Jan, Type 2 diabetes mellitus with hyperglycemia E11.65 [place] [id number] [place] [address] 12803- 3038 Dec, Chronic pain syndrome G89.4 [place] [address] 5[address]- 1919 Nov, Type 2 diabetes mellitus with hyperglycemia E11.65 [facility] [address] [place] [address] 14922- 1736 Nov, Type 2 diabetes mellitus with hyperglycemia E11.65 [facility] [address] [place] [address] 68394- 9336 Nov, [facility] [id number] [place] [address] 98823- 7796 Nov, Chronic pain syndrome G89.4 [facility] [address] [place] [address] [id number] Nov, Dental caries K02.9 [place] [address] [place] [address] 58482- 7340 Oct, Type 2 diabetes mellitus with hyperglycemia E11.65 ; Encounter for immunization Z23 ; Chronic kidney disease, stage 4 (severe) N18.4 ; manager 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 current use of insulin Z79.4 ; Essential hypertension I10 ; Neuropathy G62.9 ; Malignant neoplasm of upper-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 C50.412 ; Chronic pain syndrome G89.4 and Tooth infection K04.7 [place] [address] [place] [address] 07906- 5128 Oct, Type 2 diabetes mellitus with hyperglycemia E11.65 [place] [address] [place] [address] 28771- 7052 Sep, [place] [id number] [place] [address] 74710- 2280 Sep, Chronic kidney disease, stage 4 (severe) N18.4 [facility] [id number] [place] [address] 21346- 0141 Aug, [place] [address] [place] [address] 18216- 8633 Aug, Type 2 diabetes mellitus with hyperglycemia E11.65 [facility] [address] [place] [address] [id number] Aug, Dental examination Z01.20 [place] [id number] [place] [address] 68824- 6770 Jul, Chronic kidney disease, stage 4 (severe) N18.4 [place] [id number] [place] [address] 32496- 8818 Jul, [place] [address] 5[address]01- 3582 Jul, Type 2 diabetes mellitus with hyperglycemia E11.65 ; Chronic kidney disease, stage 4 (severe) N18.4 ; penitentiary current use of insulin Z79.4 ; Essential hypertension I10 ; Neuropathy G62.9 and Malignant neoplasm of upper-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 C50.412 [place] [id number] [place] [address] 76373- 9862 Jun, [place] [id number] [place] [address] 15421- 3486 May, [place] [id number] [place] [address] 14620- 5407 Apr, [place] [id number] [place] [address] 30662- 6063 Apr, Type 2 diabetes mellitus with hyperglycemia E11.65 and Chronic kidney disease, stage 4 (severe) N18.4 [place] [id number] [place] [address] 38712- 9300 Apr, Type 2 diabetes mellitus with hyperglycemia E11.65 [place] [id number] [place] [address] 90504- 6527 Mar, [place] [id number] [place] [address] 63016- 0203 Mar, Type 2 diabetes mellitus with hyperglycemia E11.65 ; penitentiary current use of insulin Z79.4 ; Neuropathy G62.9 and Foot ulcer, left, limited to breakdown of skin L97.521 [facility] [address] [id number] February, Dental examination Z01.20 [facility] [address], [place] [address] February, Open toe wound, initial encounter S91.109A [facility] [address], [place] [address]- 1655 February, [facility] [id number] [place] [address] 60404- 2969 February, [facility] [id number] [place] [address] 68396- 3817 February, Hyperkalemia E87.5 [facility] [id number] [place] [address] 97256- 0116 February, Hyperkalemia E87.5 [facility] [id number] [place] [address] 70542- 9351 February, Hyperkalemia E87.5 [facility] [id number] [place] [address] 81919- 0277 Jan, [facility] [id number] [place] [address] 58615- 5501 Dec, [facility] [address], [place] [address]- 5203 Dec, [facility] [id number] [place] [address] 11864- 2127 Dec, Type 2 diabetes mellitus with hyperglycemia E11.65 ; penitentiary current use of insulin Z79.4 ; Essential hypertension I10 ; Malignant neoplasm of upper-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 C50.412 ; Neuropathy G62.9 and Dental caries on smooth surface penetrating into pulp K02.63 [facility] [address] [address]36 Dec, [facility] [id number] [place] [address] 50054- 2142 Nov, [facility] [address], [place] [address]- 4550 Nov, [facility] [id number] [place] [address] 87297- 8970 Oct, Onychocryptosis L60.0 [facility] [id number] [place] [address] 72919- 5125 Oct, [facility] [id number] [place] [address] 12829- 1287 Sep, Type 2 diabetes mellitus with hyperglycemia E11.65 ; manager 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 current use of insulin Z79.4 ; Essential hypertension I10 ; Malignant neoplasm of upper-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 C50.412 and Neuropathy G62.9 [facility] [address] [place] [address] 82291- 6003 Sep, [facility] [id number] [place] [address] 73477- 6244 Aug, Onychocryptosis L60.0 and Onychomycosis B35.1 [facility] [address] [place] [address] 18018- 8749 Aug, [facility] [address] [place] [address] 93910- 8330 Aug, [facility] [address] [place] [address] 58911- 6296 Jul, Pneumonia of right middle lobe due to infectious organism J18.9 [facility] [address], [place] [address]- 8346 Jul, [facility] [id number] [place] [address] 45370- 9264 Jul, [facility] [address] [place] [address] 63978- 0351 Jul, [facility] [id number] [place] [address] 02687- 4368 Jun, Diabetes mellitus 250.00 ; DM w/o complication type II, uncontrolled 250.02 ; Breast cancer, left 174.9 ; Personal history of antineoplastic chemotherapy V87.41 ; Back pain 724.5 ; Hip pain 719.45 and Ingrown left greater toenail 703.0 [facility] [address], [place] [address]- 3654 Apr, Diabetes mellitus 250.00 ; Breast cancer, left 174.9 ; Personal history of antineoplastic chemotherapy V87.41 ; Back pain 724.5 and Hip pain 719.45 [facility] [address] [place] [address] 47019- 1034 Apr, [facility] [address] [place] [address] 37009- 0300 Mar, Diabetes mellitus 250.00 ; Breast cancer, left 174.9 ; Personal history of antineoplastic chemotherapy V87.41 ; Back pain 724.5 and Hip pain 719.45 [facility] [address], [place] [address]- 6174 Mar, DM w/o complication type II, uncontrolled 250.02 ; Hypertension 401.9 and Breast cancer, left 174.9 IMMUNIZATIONS No Known Immunizations SOCIAL HISTORY Never Assessed REASON FOR VISIT Preop Lab Results PLAN OF CARE Activity Details Pending Test CMP (OUTSIDE LAB) VITAL SIGNS MEDICATIONS Unknown Medications RESULTS No Results PROCEDURES No Known procedures INSTRUCTIONS MEDICATIONS ADMINISTERED No Known Medications MEDICAL (GENERAL) HISTORY Type Description Date Medical History type II diabetes Medical History hypertension Medical History breast cancer- stage 3. Medical History Received chemotherapy every 3 weeks at [facility] under Dr Billingsley - Chemotherapy completed/now taking [...]
--- OUTSIDE RECORDS SUMMARY | 2018-07-29 06:24 | XMS REPORT ---
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 758766842 Problem Malignant neoplasm of upper-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 C50.412 Active 137645858 Problem Type 2 diabetes mellitus with hyperglycemia E11.65 Active 905872271068661 Problem Chronic kidney disease, stage 4 (severe) N18.4 Active 331191873 Problem Hyperkalemia E87.5 Active 76645864 Problem Essential hypertension I10 Active 96555928 Problem Neuropathy G62.9 Active 980065296 Problem Pre-operative examination Z01.818 Active 804337503 Problem 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 Active 356951281 Problem Hyperlipidemia LDL goal <70 E78.5 Active 26914837 Problem Chronic pain syndrome G89.4 Active 668869677 Problem Arthritis of right hip M16.11 Active 3386831570478508 Problem GERD without esophagitis K21.9 Active [id number] ALLERGIES No Information ENCOUNTERS Encounter Location Date Diagnosis [place] [id number] [address] Apr, Type 2 diabetes mellitus with hyperglycemia E11.65 [facility] [address] [facility] [id number] [address] Apr, [place] [id number] [address] Mar, [place] [address] [facility] [id number], [place] [address] Mar, Type 2 diabetes mellitus with hyperglycemia E11.65 ; Essential hypertension I10 ; Chronic kidney disease, stage 4 (severe) N18.4 and Neuropathy G62.9 [place] [id number] [address] Mar, Type 2 diabetes mellitus with hyperglycemia E11.65 [place] [id number] [place] [address] 17460- 2935 February, Chronic kidney disease, stage 4 (severe) N18.4 [place] [id number] [place] [address] 55920- 8982 February, [place] [id number] [place] [address] 86208- 3717 February, [place] [id number] [place] [address] 25187- 4627 Jan, Type 2 diabetes mellitus with hyperglycemia E11.65 [place] [id number] [place] [address] 69006- 4245 Dec, Type 2 diabetes mellitus with hyperglycemia E11.65 [place] [id number] [place] [address] 59679- 8869 Dec, Type 2 diabetes mellitus with hyperglycemia E11.65 [place] [id number] [place] [address] 46762- 1257 Dec, Type 2 diabetes mellitus with hyperglycemia E11.65 [place] [address] [place] [address] 45863- 0774 Dec, Essential hypertension I10 ; Chronic kidney disease, stage 4 (severe) N18.4 ; longterm current use of insulin Z79.4 ; Type 2 diabetes mellitus with hyperglycemia E11.65 ; Chronic pain syndrome G89.4 ; Hyperlipidemia LDL goal <70 E78.5 ; GERD without esophagitis K21.9 and Neuropathy G62.9 [place] [address] [place] [address] 39414- 9673 Nov, [place] [id number] [place] [address] 79604- 5016 Oct, [place] [address] [place] [address] 01947- 8990 Oct, Pre-operative examination Z01.818 and Chronic kidney disease , stage 4 (severe) N18.4 [facility] [id number] [place] [address] 64033- 5467 Sep, [place] [address] [address]- 3463 Sep, Essential hypertension I10 [place] [id number] [place] [address] 66871- 4532 Sep, Chronic pain syndrome G89.4 [place] [id number] [place] [address] 50792- 1633 Aug, Type 2 diabetes mellitus with hyperglycemia E11.65 ; longterm current use of insulin Z79.4 ; Essential hypertension I10 ; Chronic kidney disease, stage 4 (severe) N18.4 ; Chronic pain syndrome G89.4 ; Hyperlipidemia LDL goal <70 E78.5 ; GERD without esophagitis K21.9 ; Neuropathy G62.9 and Vertigo R42 [place] [id number] [place] [address] 72492- 8311 Aug, [place] [id number] [place] [address] 08343- 1292 Aug, [place] [id number] [place] [address] 37852- 8339 Aug, Chronic pain syndrome G89.4 [place] [id number] [place] [address] 06869- 4406 Jul, Chronic pain syndrome G89.4 [place] [id number] [place] [address] 83243- 4753 Jun, Type 2 diabetes mellitus with hyperglycemia E11.65 [place] [id number] [place] [address] 55893- 2482 Jun, Preoperative examination Z01.818 [place] [address] [address] Jun, Chronic pain syndrome G89.4 [place] [id number] [place] [address] 25617- 8891 May, Type 2 diabetes mellitus with hyperglycemia E11.65 [place] [id number] [place] [address] 70910- 2745 May, Chronic pain syndrome G89.4 [place] [id number] [place] [address] 16642- 0658 Apr, Type 2 diabetes mellitus with hyperglycemia E11.65 ; 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 ; Essential hypertension I10 ; Malignant neoplasm of upper-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 C50.412 ; Neuropathy G62.9 ; Chronic kidney disease, stage 4 (severe) N18.4 ; Chronic pain syndrome G89.4 ; Hyperlipidemia LDL goal <70 E78.5 ; GERD without esophagitis K21.9 ; Arthritis of right hip M16.11 and Pain in right knee M25.561 [address] [place] [address] 11914- 7134 Apr, Type 2 diabetes mellitus with hyperglycemia E11.65 [address] [place] [address] 77458- 0943 Apr, Chronic pain syndrome G89.4 [address] [place] [address] 97715- 6772 Apr, 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 [address] [place] [address] 77396- 9977 Mar, Type 2 diabetes mellitus with hyperglycemia E11.65 ; 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 ; Essential hypertension I10 ; Malignant neoplasm of upper-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 C50.412 ; Neuropathy G62.9 ; Chronic kidney disease, stage 4 (severe) N18.4 ; Chronic pain syndrome G89.4 ; Hyperlipidemia LDL goal <70 E78.5 ; GERD without esophagitis K21.9 ; Arthritis of right hip M16.11 and Pain in right knee M25.561 [facility] [id number] [place] [address] 06487- 7236 February, Chronic pain syndrome G89.4 [facility] [id number] [place] [address] [id number] February, Dental caries K02.9 [facility] [address] [address]- 97[address] Jan, Type 2 diabetes mellitus with hyperglycemia E11.65 [place] [id number] [place] [address] 84207- 7179 Jan, Type 2 diabetes mellitus with hyperglycemia E11.65 ; 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 ; Essential hypertension I10 ; Malignant neoplasm of upper-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 C50.412 ; Neuropathy G62.9 ; Chronic kidney disease, stage 4 (severe) N18.4 ; Chronic pain syndrome G89.4 ; Hyperlipidemia LDL goal <70 E78.5 and GERD without esophagitis K21.9 [place] [id number] [place] [address] 22981- 0318 Jan, Type 2 diabetes mellitus with hyperglycemia E11.65 [place] [id number] [place] [address] 28094- 9309 Dec, Chronic pain syndrome G89.4 [place] [id number] [place] [address] 08088- 0472 Nov, Type 2 diabetes mellitus with hyperglycemia E11.65 [facility] [id number] [place] [address] 99190- 8038 Nov, Type 2 diabetes mellitus with hyperglycemia E11.65 [facility] [id number] [place] [address] 38500- 3627 Nov, [facility] [id number] [place] [address] 73870- 2367 Nov, Chronic pain syndrome G89.4 [facility] [id number] [place] [address] [id number] Nov, 2016 Dental caries K02.9 [facility] [id number] [place] [address] 66809- 9538 Oct, Encounter for immunization Z23 ; Type 2 diabetes mellitus with hyperglycemia E11.65 ; Chronic kidney disease, stage 4 (severe) N18.4 ; 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 ; Essential hypertension I10 ; Neuropathy G62.9 ; Malignant neoplasm of upper-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 C50.412 ; Chronic pain syndrome G89.4 and Tooth infection K04.7 [facility] [id number] [place] [address] 57984- 3516 Oct, Type 2 diabetes mellitus with hyperglycemia E11.65 [facility] [id number] [place] [address] 72257- 4770 Sep, [place] [id number] [place] [address] 98147- 6860 Sep, Chronic kidney disease, stage 4 (severe) N18.4 [facility] [id number] [place] [address] 16475- 8147 Aug, [facility] [id number] [place] [address] 47544- 3535 Aug, Type 2 diabetes mellitus with hyperglycemia E11.65 [facility] [address] [place] [address] [id number] Aug, Dental examination Z01.20 [facility] [id number] [place] [address] 42060- 7559 Jul, Chronic kidney disease, stage 4 (severe) N18.4 [facility] [id number] [place] [address] 48051- 0908 Jul, [facility] [id number] [place] [address] 56286- 1262 Jul, Type 2 diabetes mellitus with hyperglycemia E11.65 ; Chronic kidney disease, stage 4 (severe) N18.4 ; longterm current use of insulin Z79.4 ; Essential hypertension I10 ; Neuropathy G62.9 and Malignant neoplasm of upper-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 C50.412 [place] [id number] [place] [address] 12269- 1286 Jun, [facility] [id number] [place] [address] 63536- 4749 May, [facility] [address] 32472- 2655 Apr, [place] [id number] [place] [address] 80490- 7866 Apr, Type 2 diabetes mellitus with hyperglycemia E11.65 and Chronic kidney disease, stage 4 (severe) N18.4 [place] [id number] [place] [address] 08843- 2262 Apr, Type 2 diabetes mellitus with hyperglycemia E11.65 [place] [id number] [place] [address] 61698- 6991 Mar, [place] [id number] [place] [address] 71203- 7314 Mar, Type 2 diabetes mellitus with hyperglycemia E11.65 ; longterm current use of insulin Z79.4 ; Neuropathy G62.9 and Foot ulcer, left, limited to breakdown of skin L97.521 [facility] [id number] [place] [address] [id number] February, Dental examination Z01.20 [facility] [id number] [place] [address] 83861 -9811 February, Open toe wound, initial encounter S91.109A [facility] [address] [place] [id number] [place] [address] 40003- 8901 February, [facility] [id number] [place] [address] 12286- 5349 February, [facility] [id number] [place] [address] 90980- 3524 February, Hyperkalemia E87.5 [facility] [address] [place] [address] 30633- 4736 February, Hyperkalemia E87.5 [facility] [address] [place] [address] 80305- 8587 February, Hyperkalemia E87.5 [facility] [id number] [place] [address] 88973- 6008 Jan, [facility] [id number] [place] [address] 93817- 4711 Dec, [facility] [id number] [place] [address] 23324- 2863 Dec, [place] [id number] [place] [address] 22586- 3676 Dec, Type 2 diabetes mellitus with hyperglycemia E11.65 ; 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 ; Essential hypertension I10 ; Malignant neoplasm of upper-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 C50.412 ; Neuropathy G62.9 and Dental caries on smooth surface penetrating into pulp K02.63 [place] [id number] [place] [address] 46826- 9594 Dec, [place] [id number] [place] [address] 92693- 3732 Nov, [facility] [id number] [place] [address] 10766- 8958 Nov, [facility] [id number] [place] [address] 01141- 4290 Oct, Onychocryptosis L60.0 [facility] [address] [place] [address] 32303- 8677 Oct, [facility] [id number] [place] [address] 61911- 0357 Sep, Type 2 diabetes mellitus with hyperglycemia E11.65 ; longterm current use of insulin Z79.4 ; Essential hypertension I10 ; Malignant neoplasm of upper-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 C50.412 and Neuropathy G62.9 [place] [id number] [place] [address] 97620- 9800 Sep, [place] [id number] [place] [address] 31957- 7910 Aug, Onychocryptosis L60.0 and Onychomycosis B35.1 [place] [id number] [place] [address] 12239- 1661 Aug, [place] [id number] [place] [address] 73613- 6857 Aug, [place] [id number] [place] [address] 82925- 7899 Jul, Pneumonia of right middle lobe due to infectious organism J18.9 [place] [id number] [place] [address] 14408- 9684 Jul, [place] [id number] [place] [address] 56434- 9996 Jul, [place] [id number] [place] [address] 96313- 5511 Jul, [place] [id number] [place] [address] 91226- 9077 Jun, Diabetes mellitus 250.00 ; DM w/o complication type II, uncontrolled 250.02 ; Breast cancer, left 174.9 ; Personal history of antineoplastic chemotherapy V87.41 ; Back pain 724.5 ; Hip pain 719.45 and Ingrown left greater toenail 703.0 [place] [id number] [place] [address] 99491- 7892 Apr, Diabetes mellitus 250.00 ; Breast cancer, left 174.9 ; Personal history of antineoplastic chemotherapy V87.41 ; Back pain 724.5 and Hip pain 719.45 [place] [id number] [place] [address] 99985- 2546 Apr, [facility] [address] [facility] [id number] [address] 2546 Mar, Diabetes mellitus 250.00 ; Breast cancer, left 174.9 ; Personal history of antineoplastic chemotherapy V87.41 ; Back pain 724.5 and Hip pain 719.45 [facility] [address] [facility] [id number] [address]- 2546 Mar, DM w/o complication type II, uncontrolled 250.02 ; Hypertension 401.9 and Breast cancer, left 174.9 IMMUNIZATIONS No Known Immunizations SOCIAL HISTORY Never Assessed REASON FOR VISIT Refill request PLAN OF CARE VITAL SIGNS MEDICATIONS Medication Instructions Dosage Frequency Start Date End Date Duration Status Pen [place] 1/2" 29G X 12MM subcutaneously 5 times per day as directed Active RESULTS No Results PROCEDURES No Known procedures INSTRUCTIONS MEDICATIONS ADMINISTERED No Known Medications MEDICAL (GENERAL) HISTORY Type Description Date Medical History type II diabetes Medical History hypertension Medical History breast cancer- stage 3. Medical History Received chemotherapy every 3 weeks at [facility] under Dr Billingsley - Chemotherapy completed/now [...]
--- OUTSIDE RECORDS SUMMARY | 2018-07-29 06:24 | XMS REPORT ---
Author Author ENRRIQUE FUENTES [facility] Address [address] [place] [address] Care Team Providers Care Stud Master/Mistress Name Role Phone ENRRIQUE FUENTES Unavailable PROBLEMS Type Condition ICD9-CM Code [id number] Code Onset Dates Condition Status SNOMED Code Problem long term current use of insulin Z79.4 Active 887647905 Problem Malignant neoplasm of upper-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 C50.412 Active 850948649 Problem Type 2 diabetes mellitus with hyperglycemia E11.65 Active 184697668092629 Problem Chronic kidney disease, stage 4 (severe) N18.4 Active 800825139 Problem Hyperkalemia E87.5 Active 72265648 Problem Essential hypertension I10 Active 78946728 Problem Neuropathy G62.9 Active 437242561 Problem Pre-operative examination Z01.818 Active 708363894 Problem 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 Active 322793958 Problem Hyperlipidemia LDL goal <70 E78.5 Active 53492950 Problem Chronic pain syndrome G89.4 Active 972038693 Problem Arthritis of right hip M16.11 Active 8733430021290641 Problem GERD without esophagitis K21.9 Active 386636494 ALLERGIES No Information ENCOUNTERS Encounter Location Date Diagnosis [facility] [address], [place] [address] Apr, [facility] [id number] [place] [address] 08085- 2098 Mar, [facility] [id number] [place] [address] 15368- 9928 Mar, Type 2 diabetes mellitus with hyperglycemia E11.65 ; Essential hypertension I10 ; Chronic kidney disease, stage 4 (severe) N18.4 and Neuropathy G62.9 [facility] [id number] [place] [address] 58123- 0468 Mar, Type 2 diabetes mellitus with hyperglycemia E11.65 [facility] [id number] [place] [address] 17337- 9214 February, Chronic kidney disease, stage 4 (severe) N18.4 [facility] [id number] [place] [address] 01538- 4738 February, [facility] [address] 8[address]01- 6646 February, [facility] [id number] [place] [address] 46351- 9068 Jan, Type 2 diabetes mellitus with hyperglycemia E11.65 [facility] [id number] [place] [address] 62883- 2937 Dec, Type 2 diabetes mellitus with hyperglycemia E11.65 [facility] [id number] [place] [address] 01417- 3876 Dec, Type 2 diabetes mellitus with hyperglycemia E11.65 [facility] [id number] [place] [address] 13950- 8688 Dec, Type 2 diabetes mellitus with hyperglycemia E11.65 [facility] [id number] [place] [address] 39743- 2275 Dec, Essential hypertension I10 ; Chronic kidney disease, stage 4 (severe) N18.4 ; longterm current use of insulin Z79.4 ; Type 2 diabetes mellitus with hyperglycemia E11.65 ; Chronic pain syndrome G89.4 ; Hyperlipidemia LDL goal <70 E78.5 ; GERD without esophagitis K21.9 and Neuropathy G62.9 [facility] [id number] [place] [address] 12697- 8776 Nov, [facility] [id number] [place] [address] [id number] Oct, [facility] [id number] [place] [address] 93586- 0703 Oct, Pre-operative examination Z01.818 and Chronic kidney disease , stage 4 (severe) N18.4 [facility] [id number] [place] [address] 93202- 1551 Sep, [facility] [address] 16211- 5396 Sep, Essential hypertension I10 [facility] [id number] [place] [address] 11559- 1051 Sep, Chronic pain syndrome G89.4 [facility] [id number] [place] [address] 05111- 1490 Aug, Type 2 diabetes mellitus with hyperglycemia E11.65 ; longterm current use of insulin Z79.4 ; Essential hypertension I10 ; Chronic kidney disease, stage 4 (severe) N18.4 ; Chronic pain syndrome G89.4 ; Hyperlipidemia LDL goal <70 E78.5 ; GERD without esophagitis K21.9 ; Neuropathy G62.9 and Vertigo R42 [facility] [id number] [place] [address] 34098- 7451 Aug, [facility] [id number] [place] [address] 29705- 2769 Aug, [facility] [id number] [place] [address] 12377- 6564 Aug, Chronic pain syndrome G89.4 [facility] [id number] [place] [address] 44331- 9400 Jul, Chronic pain syndrome G89.4 [facility] [id number] [place] [address] 33051- 8161 Jun, Type 2 diabetes mellitus with hyperglycemia E11.65 [facility] [address] 04286- 7282 Jun, Preoperative examination Z01.818 [facility] [id number] [place] [address] 77053- 4087 Jun, Chronic pain syndrome G89.4 [facility] [id number] [place] [address] 34385- 4165 May, Type 2 diabetes mellitus with hyperglycemia E11.65 [place] [id number] [place] [address] 52226- 8547 May, Chronic pain syndrome G89.4 [facility] [id number] [place] [address] 31551- 8061 Apr, Type 2 diabetes mellitus with hyperglycemia [...] M16.11 and Pain in right knee M25.561 [place] [id number] [place] [address] 57379- 5382 Apr, Type 2 diabetes mellitus with hyperglycemia E11.65 [facility] [id number] [place] [address] 37540- 0295 Apr, Chronic pain syndrome G89.4 [place] [id number] [place] [address] 32652- 4796 Apr, 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 [place] [id number] [place] [address] 87782- 4730 Mar, Type 2 diabetes mellitus with hyperglycemia E11.65 ; long term current use of insulin Z79.4 ; Essential hypertension I10 ; Malignant neoplasm of upper-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 C50.412 ; Neuropathy G62.9 ; Chronic kidney disease, stage 4 (severe) N18.4 ; Chronic pain syndrome G89.4 ; Hyperlipidemia LDL goal <70 E78.5 ; GERD without esophagitis K21.9 ; Arthritis of right hip M16.11 and Pain in right knee M25.561 [place] [id number] [place] [address] 55092- 7259 February, Chronic pain syndrome G89.4 [facility] [id number] [place] [address] [id number] February, Dental caries K02.9 [facility] [id number] [place] [address] 14557- 5455 Jan, Type 2 diabetes mellitus with hyperglycemia E11.65 [facility] [id number] [place] [address] 98237- 1985 Jan, Type 2 diabetes mellitus with hyperglycemia E11.65 ; longterm current use of insulin Z79.4 ; Essential hypertension I10 ; Malignant neoplasm of upper-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 C50.412 ; Neuropathy G62.9 ; Chronic kidney disease, stage 4 (severe) N18.4 ; Chronic pain syndrome G89.4 ; Hyperlipidemia LDL goal <70 E78.5 and GERD without esophagitis K21.9 [facility] [id number] [place] [address] 25190- 6031 Jan, Type 2 diabetes mellitus with hyperglycemia E11.65 [facility] [id number] [place] [address] 69512- 3737 Dec, Chronic pain syndrome G89.4 [facility] [id number] [place] [address] 28372- 5292 Nov, Type 2 diabetes mellitus with hyperglycemia E11.65 [facility] [id number] [place] [address] 63542- 1057 Nov, Type 2 diabetes mellitus with hyperglycemia E11.65 [facility] [id number] [place] [address] 52099- 6245 Nov, [facility] [id number] [place] [address] 69052- 0355 Nov, Chronic pain syndrome G89.4 [facility] [id number] [place] [address] [id number] Nov, Dental caries K02.9 [facility] [id number] [place] [address] 25815- 1351 Oct, Type 2 diabetes mellitus with hyperglycemia E11.65 ; Encounter for immunization Z23 ; Chronic kidney disease, stage 4 (severe) N18.4 ; long term current use of insulin Z79.4 ; Essential hypertension I10 ; Neuropathy G62.9 ; Malignant neoplasm of upper-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 C50.412 ; Chronic pain syndrome G89.4 and Tooth infection K04.7 [facility] [id number] [place] [address] 62415- 2135 Oct, Type 2 diabetes mellitus with hyperglycemia E11.65 [facility] [id number] [place] [address] 91738- 3878 Sep, [facility] [id number] [place] [address] 75136- 4075 Sep, Chronic kidney disease, stage 4 (severe) N18.4 [facility] [id number] [place] [address] 07640- 3590 Aug, [facility] [id number] [place] [address] 28807- 6890 Aug, Type 2 diabetes mellitus with hyperglycemia E11.65 [facility] [id number] [place] [address] [id number] Aug, Dental examination Z01.20 [facility] [id number] [place] [address] 18705- 3021 Jul, Chronic kidney disease, stage 4 (severe) N18.4 [facility] [id number] [place] [address] 51337- 1326 Jul, [facility] [id number] [place] [address] 96238- 1639 Jul, Type 2 diabetes mellitus with hyperglycemia E11.65 ; Chronic kidney disease, stage 4 (severe) N18.4 ; long term current use of insulin Z79.4 ; Essential hypertension I10 ; Neuropathy G62.9 and Malignant neoplasm of upper-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 C50.412 [facility] [id number] [place] [address] 83415- 2503 Jun, [facility] [id number] [place] [address] 97332- 3634 May, [facility] [id number] [place] [address] 18791- 1761 Apr, [facility] [id number] [place] [address] 65721- 9332 Apr, Type 2 diabetes mellitus with hyperglycemia E11.65 and Chronic kidney disease, stage 4 (severe) N18.4 [facility] [id number] [place] [address] 63794- 8234 Apr, Type 2 diabetes mellitus with hyperglycemia E11.65 [facility] [id number] [place] [address] 05884- 4571 Mar, [facility] [id number] [place] [address] 71169- 5924 Mar, Type 2 diabetes mellitus with hyperglycemia E11.65 ; longterm current use of insulin Z79.4 ; Neuropathy G62.9 and Foot ulcer, left, limited to breakdown of skin L97.521 [facility] [id number] [place] [address] [id number] February, Dental examination Z01.20 [facility] [address] [place] [address] 92225 -3235 February, Open toe wound, initial encounter S91.109A [facility] [id number] [place] [address] 57484- 6037 February, [facility] [id number] [place] [address] 19919- 4489 February, [facility] [id number] [place] [address] 32554- 1575 February, Hyperkalemia E87.5 [facility] [id number] [place] [address] 21310- 1346 February, Hyperkalemia E87.5 [facility] [address], [place] [address]- 1699 February, Hyperkalemia E87.5 [facility] [address], [place] [address]- 3102 Jan, [facility] [address] [place] [address] 92075- 8505 Dec, [facility] [address] [place] [address] 46584- 4936 Dec, [facility] [address] [place] [address] 41012- 0159 Dec, Type 2 diabetes mellitus with hyperglycemia E11.65 ; long term current use of insulin Z79.4 ; Essential hypertension I10 ; Malignant neoplasm of upper-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 C50.412 ; Neuropathy G62.9 and Dental caries on smooth surface penetrating into pulp K02.63 [facility] [address], [place] [address]- 5594 Dec, [facility] [address] [place] [address] 06984- 1827 Nov, [facility] [address], [place] [address]- 1161 Nov, [facility] [address], [place] [address]- 7835 Oct, Onychocryptosis L60.0 [facility] [address], [place] [address]- 3650 Oct, [facility] [address] [place] [address] 52449- 1453 Sep, Type 2 diabetes mellitus with hyperglycemia E11.65 ; longterm current use of insulin Z79.4 ; Essential hypertension I10 ; Malignant neoplasm of upper-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 C50.412 and Neuropathy G62.9 [facility] [address], [place] [address]- 2546 Sep, [facility] [address] [place] [address] 74336- 3667 Aug, Onychocryptosis L60.0 and Onychomycosis B35.1 [facility] [address], [place] [address]- 2546 Aug, [facility] [id number] [place] [address] 03443- 8186 Aug, [facility] [address] [place] [address] 01316- 9588 Jul, Pneumonia of right middle lobe due to infectious organism J18.9 [facility] [address] [place] [address] 70314- 1126 Jul, [facility] [id number] [place] [address] 05889- 6986 Jul, [facility] [id number] [place] [address] 62302- 3746 Jul, [facility] [id number] [place] [address] 83930- 2858 Jun, Diabetes mellitus 250.00 ; DM w/o complication type II, uncontrolled 250.02 ; Breast cancer, left 174.9 ; Personal history of antineoplastic chemotherapy V87.41 ; Back pain 724.5 ; Hip pain 719.45 and Ingrown left greater toenail 703.0 [facility] [address], [place] [address]- 2686 Apr, Diabetes mellitus 250.00 ; Breast cancer, left 174.9 ; Personal history of antineoplastic chemotherapy V87.41 ; Back pain 724.5 and Hip pain 719.45 [facility] [address], [place] [address]- 2546 Apr, [facility] [address] [place] [address] 64080- 2204 Mar, Diabetes mellitus 250.00 ; Breast cancer, left 174.9 ; Personal history of antineoplastic chemotherapy V87.41 ; Back pain 724.5 and Hip pain 719.45 [facility] [address] [facility] [id number] [address]- 0369 Mar, DM w/o complication type II, uncontrolled 250.02 ; Hypertension 401.9 and Breast cancer, left 174.9 IMMUNIZATIONS No Known Immunizations SOCIAL HISTORY Never Assessed REASON FOR VISIT Refill request PLAN OF CARE VITAL SIGNS MEDICATIONS Medication Instructions Dosage Frequency Start Date End Date Duration Status NovoLog Flexpen 100 unit/ml Subcutaneous 3 times daily with meals, per sliding scale 14 units 30 days Active RESULTS No Results PROCEDURES No Known procedures INSTRUCTIONS MEDICATIONS ADMINISTERED No Known Medications MEDICAL (GENERAL) HISTORY Type Description Date Medical History type II diabetes Medical History hypertension Medical History breast cancer- stage 3. Medical History Received chemotherapy every 3 weeks at [facility] under Dr Billingsley - Chemotherapy completed/now [...]
--- OUTSIDE RECORDS SUMMARY | 2018-07-29 06:24 | XMS REPORT ---
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 Active 216800209 Problem Malignant neoplasm of upper-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 C50.412 Active 042343760 Problem Type 2 diabetes mellitus with hyperglycemia E11.65 Active 959057132664499 Problem Chronic kidney disease, stage 4 (severe) N18.4 Active 101687479 Problem Hyperkalemia E87.5 Active 59216752 Problem Essential hypertension I10 Active 32458750 Problem Neuropathy G62.9 Active 259188421 Problem Pre-operative examination Z01.818 Active 721030636 Problem 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 Active 309160843 Problem Hyperlipidemia LDL goal <70 E78.5 Active 01899729 Problem Chronic pain syndrome G89.4 Active 936444222 Problem Arthritis of right hip M16.11 Active [id number] Problem GERD without esophagitis K21.9 Active [id number] ALLERGIES No Information ENCOUNTERS Encounter Location Date Diagnosis [place] [address] [id number], [place] [address] Apr, Type 2 diabetes mellitus with hyperglycemia E11.65 [facility] [address] [facility] [id number] [address] Apr, [place] [id number], [place] [address] Mar, [place] [address] [facility] [id number], [place] [address] Mar, Type 2 diabetes mellitus with hyperglycemia E11.65 ; Essential hypertension I10 ; Chronic kidney disease, stage 4 (severe) N18.4 and Neuropathy G62.9 [place] [address] [id number], [place] [address] Mar, Type 2 diabetes mellitus with hyperglycemia E11.65 [place] [id number] [place] [address] 86852- 4929 February, Chronic kidney disease, stage 4 (severe) N18.4 [place] [id number] [place] [address] 77966- 1677 February, [place] [id number] [place] [address] 88467- 2196 February, [place] [id number] [place] [address] 65584- 9099 Jan, Type 2 diabetes mellitus with hyperglycemia E11.65 [place] [id number] [place] [address] 16750- 5338 Dec, Type 2 diabetes mellitus with hyperglycemia E11.65 [place] [id number] [place] [address] 35202- 6150 Dec, Type 2 diabetes mellitus with hyperglycemia E11.65 [place] [id number] [place] [address] 80369- 6593 Dec, Type 2 diabetes mellitus with hyperglycemia E11.65 [place] [id number] [place] [address] 90166- 2386 Dec, Essential hypertension I10 ; Chronic kidney disease, stage 4 (severe) N18.4 ; 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 ; Type 2 diabetes mellitus with hyperglycemia E11.65 ; Chronic pain syndrome G89.4 ; Hyperlipidemia LDL goal <70 E78.5 ; GERD without esophagitis K21.9 and Neuropathy G62.9 [place] [address] [place] [address] 46181- 6026 Nov, [place] [id number] [place] [address] 21358- 7533 Oct, [place] [id number] [place] [address] 04940- 5224 Oct, Pre-operative examination Z01.818 and Chronic kidney disease , stage 4 (severe) N18.4 [facility] [id number] [place] [address] 10045- 7359 Sep, [place] [address] [address] 1980 Sep, Essential hypertension I10 [place] [id number] [place] [address] 54632- 8471 Sep, Chronic pain syndrome G89.4 [place] [id number] [place] [address] 50330- 0804 Aug, Type 2 diabetes mellitus with hyperglycemia E11.65 ; 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 ; Essential hypertension I10 ; Chronic kidney disease, stage 4 (severe) N18.4 ; Chronic pain syndrome G89.4 ; Hyperlipidemia LDL goal <70 E78.5 ; GERD without esophagitis K21.9 ; Neuropathy G62.9 and Vertigo R42 [place] [id number] [place] [address] 53107- 7429 Aug, [place] [id number] [place] [address] 12684- 4604 Aug, [place] [id number] [place] [address] 16095- 3770 Aug, Chronic pain syndrome G89.4 [place] [id number] [place] [address] 49558- 6756 Jul, Chronic pain syndrome G89.4 [place] [id number] [place] [address] 31652- 3770 Jun, Type 2 diabetes mellitus with hyperglycemia E11.65 [place] [id number] [place] [address] 85217- 6922 Jun, Preoperative examination Z01.818 [place] [address], [place] [address] 4833 Jun, Chronic pain syndrome G89.4 [place] [id number] [place] [address] 21800- 0685 May, Type 2 diabetes mellitus with hyperglycemia E11.65 [place] [id number] [place] [address] 63608- 4160 May, Chronic pain syndrome G89.4 [place] [id number] [place] [address] 41450- 3462 Apr, Type 2 diabetes mellitus with hyperglycemia E11.65 ; 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 animal 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 Z79.4 ; Essential hypertension I10 ; Malignant neoplasm of upper-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 C50.412 ; Neuropathy G62.9 ; Chronic kidney disease, stage 4 (severe) N18.4 ; Chronic pain syndrome G89.4 ; Hyperlipidemia LDL goal <70 E78.5 ; GERD without esophagitis K21.9 ; Arthritis of right hip M16.11 and Pain in right knee M25.561 [address] [place] [address] 51535- 3055 Apr, Type 2 diabetes mellitus with hyperglycemia E11.65 [address] [place] [address] 90916- 2241 Apr, Chronic pain syndrome G89.4 [address] [place] [address] 77345- 7887 Apr, 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 [address] [place] [address] 62680- 7772 Mar, Type 2 diabetes mellitus with hyperglycemia E11.65 ; predatory animal 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 Z79.4 ; Essential hypertension I10 ; Malignant neoplasm of upper-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 C50.412 ; Neuropathy G62.9 ; Chronic kidney disease, stage 4 (severe) N18.4 ; Chronic pain syndrome G89.4 ; Hyperlipidemia LDL goal <70 E78.5 ; GERD without esophagitis K21.9 ; Arthritis of right hip M16.11 and Pain in right knee M25.561 [facility] [id number] [place] [address] 11912- 9800 February, Chronic pain syndrome G89.4 [facility] [id number] [place] [address] [id number] February, Dental caries K02.9 [facility] [address] 18478- 4738 Jan, Type 2 diabetes mellitus with hyperglycemia E11.65 [place] [id number] [place] [address] 82819- 0848 Jan, Type 2 diabetes mellitus with hyperglycemia E11.65 ; predatory animal 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 Z79.4 ; Essential hypertension I10 ; Malignant neoplasm of upper-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 C50.412 ; Neuropathy G62.9 ; Chronic kidney disease, stage 4 (severe) N18.4 ; Chronic pain syndrome G89.4 ; Hyperlipidemia LDL goal <70 E78.5 and GERD without esophagitis K21.9 [place] [id number] [place] [address] 69626- 4462 Jan, Type 2 diabetes mellitus with hyperglycemia E11.65 [place] [id number] [place] [address] 77280- 8638 Dec, Chronic pain syndrome G89.4 [place] [id number] [place] [address] 07873- 6925 Nov, Type 2 diabetes mellitus with hyperglycemia E11.65 [facility] [id number] [place] [address] 99228- 7922 Nov, Type 2 diabetes mellitus with hyperglycemia E11.65 [facility] [id number] [place] [address] 23062- 1944 Nov, [facility] [address] [id number] [place] [address] 68750- 4747 Nov, Chronic pain syndrome G89.4 [facility] [id number] [place] [address] [id number] 15 Nov, 2016 Dental caries K02.9 [facility] [id number] [place] [address] 95990- 7950 Oct, Encounter for immunization Z23 ; Type 2 diabetes mellitus with hyperglycemia E11.65 ; Chronic kidney disease, stage 4 (severe) N18.4 ; 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 animal 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 Z79.4 ; Essential hypertension I10 ; Neuropathy G62.9 ; Malignant neoplasm of upper-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 C50.412 ; Chronic pain syndrome G89.4 and Tooth infection K04.7 [facility] [address] [id number] [place] [address] 85864- 4821 Oct, Type 2 diabetes mellitus with hyperglycemia E11.65 [facility] [id number] [place] [address] 21693- 8711 Sep, [place] [id number] [place] [address] 40435- 9571 Sep, Chronic kidney disease, stage 4 (severe) N18.4 [facility] [id number] [place] [address] 70042- 1067 Aug, [facility] [id number] [place] [address] 78357- 4850 Aug, Type 2 diabetes mellitus with hyperglycemia E11.65 [facility] [address] [place] [address] [id number] Aug, Dental examination Z01.20 [facility] [id number] [place] [address] 77697- 5247 Jul, Chronic kidney disease, stage 4 (severe) N18.4 [facility] [id number] [place] [address] 79359- 1428 Jul, [facility] [id number] [place] [address] 20286- 0116 Jul, Type 2 diabetes mellitus with hyperglycemia E11.65 ; Chronic kidney disease, stage 4 (severe) N18.4 ; 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 ; Essential hypertension I10 ; Neuropathy G62.9 and Malignant neoplasm of upper-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 C50.412 [place] [id number] [place] [address] 14054- 8443 Jun, [facility] [address] [id number] [place] [address] 16776- 3180 May, [facility] [address] 44771- 0921 Apr, [place] [id number] [place] [address] 18135- 8186 Apr, Type 2 diabetes mellitus with hyperglycemia E11.65 and Chronic kidney disease, stage 4 (severe) N18.4 [place] [id number] [place] [address] 24259- 9388 Apr, Type 2 diabetes mellitus with hyperglycemia E11.65 [place] [id number] [place] [address] 19889- 5489 Mar, [place] [id number] [place] [address] 52658- 4298 Mar, Type 2 diabetes mellitus with hyperglycemia E11.65 ; 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 ; Neuropathy G62.9 and Foot ulcer, left, limited to breakdown of skin L97.521 [facility] [id number] [place] [address] [id number] February, Dental examination Z01.20 [facility] [id number] [place] [address] 09711 -3665 February, Open toe wound, initial encounter S91.109A [facility] [address] [place] [id number] [place] [address] 31708- 6852 February, [facility] [id number] [place] [address] 93476- 8429 February, [facility] [id number] [place] [address] 91235- 2618 February, Hyperkalemia E87.5 [facility] [address] [place] [address] 40600- 1203 February, Hyperkalemia E87.5 [facility] [address] [place] [address] 10309- 7004 February, Hyperkalemia E87.5 [facility] [id number] [place] [address] 60822- 7377 Jan, [facility] [id number] [place] [address] 71853- 9397 Dec, [facility] [id number] [place] [address] 61628- 2869 Dec, [place] [id number] [place] [address] 48150- 7295 Dec, Type 2 diabetes mellitus with hyperglycemia E11.65 ; predatory animal 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 Z79.4 ; Essential hypertension I10 ; Malignant neoplasm of upper-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 C50.412 ; Neuropathy G62.9 and Dental caries on smooth surface penetrating into pulp K02.63 [place] [id number] [place] [address] 14048- 9946 Dec, [place] [id number] [place] [address] 52241- 5170 Nov, [facility] [id number] [place] [address] 27969- 9554 Nov, [facility] [id number] [place] [address] 09718- 3467 Oct, Onychocryptosis L60.0 [facility] [address] [place] [address] 61673- 5760 Oct, [facility] [id number] [place] [address] 32276- 1872 Sep, Type 2 diabetes mellitus with hyperglycemia E11.65 ; 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 ; Essential hypertension I10 ; Malignant neoplasm of upper-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 C50.412 and Neuropathy G62.9 [place] [id number] [place] [address] 25571- 6281 Sep, [place] [id number] [place] [address] 74669- 7132 Aug, Onychocryptosis L60.0 and Onychomycosis B35.1 [place] [id number] [place] [address] 47073- 1323 Aug, [place] [id number] [place] [address] 19204- 4936 Aug, [place] [id number] [place] [address] 13968- 4160 Jul, Pneumonia of right middle lobe due to infectious organism J18.9 [place] [id number] [place] [address] 93297- 4032 Jul, [place] [id number] [place] [address] 55279- 3149 Jul, [place] [id number] [place] [address] 11937- 7154 Jul, [place] [address] [place] [address] 50468- 7791 Jun, Diabetes mellitus 250.00 ; DM w/o complication type II, uncontrolled 250.02 ; Breast cancer, left 174.9 ; Personal history of antineoplastic chemotherapy V87.41 ; Back pain 724.5 ; Hip pain 719.45 and Ingrown left greater toenail 703.0 [place] [id number] [place] [address] 37987- 2840 Apr, Diabetes mellitus 250.00 ; Breast cancer, left 174.9 ; Personal history of antineoplastic chemotherapy V87.41 ; Back pain 724.5 and Hip pain 719.45 [place] [id number] [place] [address] 64016- 2546 Apr, [facility] [address] [facility] [id number] [address]- 2546 Mar, Diabetes mellitus 250.00 ; Breast cancer, left 174.9 ; Personal history of antineoplastic chemotherapy V87.41 ; Back pain 724.5 and Hip pain 719.45 [facility] [address] [facility] [id number], [place] [address]- 2546 Mar, DM w/o complication type II, uncontrolled 250.02 ; Hypertension 401.9 and Breast cancer, left 174.9 IMMUNIZATIONS No Known Immunizations SOCIAL HISTORY Never Assessed REASON FOR VISIT Pen Cullen PLAN OF CARE VITAL SIGNS MEDICATIONS Medication Instructions Dosage Frequency Start Date End Date Duration Status Pen Cullen 1/2" 29G X 12MM subcutaneously 5 times per day as directed Active RESULTS No Results PROCEDURES No Known procedures INSTRUCTIONS MEDICATIONS ADMINISTERED No Known Medications MEDICAL (GENERAL) HISTORY Type Description Date Medical History type II diabetes Medical History hypertension Medical History breast cancer- stage 3. Medical History Received chemotherapy every 3 weeks at [facility] under Dr Billingsley - Chemotherapy completed/now taking [...]
--- OUTSIDE RECORDS SUMMARY | 2018-07-29 06:25 | XMS REPORT ---
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 C50.412 Active 308168473 Problem Type 2 diabetes mellitus with hyperglycemia E11.65 Active 609871469034472 Problem Chronic kidney disease, stage 4 (severe) N18.4 Active 894693289 Problem Hyperkalemia E87.5 Active 17067061 Problem Essential hypertension I10 Active 23810094 Problem Neuropathy G62.9 Active 236964624 Problem Pre-operative examination Z01.818 Active 748629319 Problem 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 Active 178535689 Problem Hyperlipidemia LDL goal <70 E78.5 Active 33404852 Problem Chronic pain syndrome G89.4 Active 902299856 Problem Arthritis of right hip M16.11 Active 9760933083299698 Problem GERD without esophagitis K21.9 Active 115014151 ALLERGIES Substance Reaction Event Type Date Status Codeine Sulfate Unknown Drug Allergy Dec, Active ENCOUNTERS Encounter Location Date Diagnosis [facility] [id number], [place] [address] Apr, [facility] [id number], [place] [address] Mar, [facility] [address], [place] [address] Mar, Type 2 diabetes mellitus with hyperglycemia E11.65 ; Essential hypertension I10 ; Chronic kidney disease, stage 4 (severe) N18.4 and Neuropathy G62.9 [facility] [address], [place] [address] Mar, Type 2 diabetes mellitus with hyperglycemia E11.65 [facility] [id number] [place] [address] 21196- 7379 February, Chronic kidney disease, stage 4 (severe) N18.4 [facility] [id number] [place] [address] 06008- 7444 February, [facility] [id number] [place] [address] 93039- 1588 February, [facility] [id number] [place] [address] 50206- 4770 Jan, Type 2 diabetes mellitus with hyperglycemia E11.65 [facility] [id number] [place] [address] 45300- 2789 Dec, Type 2 diabetes mellitus with hyperglycemia E11.65 [facility] [id number] [place] [address] 49089- 3171 Dec, Type 2 diabetes mellitus with hyperglycemia E11.65 [facility] [id number] [place] [address] 47215- 6961 Dec, Type 2 diabetes mellitus with hyperglycemia E11.65 [facility] [address] [place] [address] 26483- 9604 Dec, Essential hypertension I10 ; Chronic kidney disease, stage 4 (severe) N18.4 ; USP current use of insulin Z79.4 ; Type 2 diabetes mellitus with hyperglycemia E11.65 ; Chronic pain syndrome G89.4 ; Hyperlipidemia LDL goal <70 E78.5 ; GERD without esophagitis K21.9 and Neuropathy G62.9 [facility] [id number] [place] [address] 32212- 6915 Nov, [facility] [address], [place] [address] 2117 Oct, [facility] [id number] [place] [address] 88718- 9326 Oct, Pre-operative examination Z01.818 and Chronic kidney disease , stage 4 (severe) N18.4 [facility] [id number] [place] [address] 93948- 6987 Sep, [place] [id number] [place] [address] 26657- 0168 Sep, Essential hypertension I10 [facility] [facility] [address] 95303- 9767 Sep, Chronic pain syndrome G89.4 [facility] [id number] [place] [address] 09952- 3959 Aug, Type 2 diabetes mellitus with hyperglycemia E11.65 ; 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 ; Essential hypertension I10 ; Chronic kidney disease, stage 4 (severe) N18.4 ; Chronic pain syndrome G89.4 ; Hyperlipidemia LDL goal <70 E78.5 ; GERD without esophagitis K21.9 ; Neuropathy G62.9 and Vertigo R42 [facility] [id number] [place] [address] 75322- 8801 15 Aug, 2017 [facility] [address] 93918- 4378 Aug, [facility] [id number] [place] [address] 88049- 3627 Aug, Chronic pain syndrome G89.4 [facility] [id number] [place] [address] 68329- 6421 Jul, Chronic pain syndrome G89.4 [facility] [id number] [place] [address] 26224- 4956 Jun, Type 2 diabetes mellitus with hyperglycemia E11.65 [facility] [id number] [place] [address] 11347- 8066 Jun, Preoperative examination Z01.818 [facility] [address] 17842- 6980 Jun, Chronic pain syndrome G89.4 [facility] [id number] [place] [address] 80657- 6378 May, Type 2 diabetes mellitus with hyperglycemia E11.65 [facility] [id number] [place] [address] 73906- 7324 May, Chronic pain syndrome G89.4 [facility] [id number] [place] [address] 03213- 9144 Apr, Type 2 diabetes mellitus with hyperglycemia E11.65 ; USP current use of insulin Z79.4 ; Essential hypertension I10 ; Malignant neoplasm of upper-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 C50.412 ; Neuropathy G62.9 ; Chronic kidney disease, stage 4 (severe) N18.4 ; Chronic pain syndrome G89.4 ; Hyperlipidemia LDL goal <70 E78.5 ; GERD without esophagitis K21.9 ; Arthritis of right hip M16.11 and Pain in right knee M25.561 [facility] [id number] [place] [address] 08732- 9110 Apr, Type 2 diabetes mellitus with hyperglycemia E11.65 [facility] [id number] [place] [address] 19142- 7549 Apr, Chronic pain syndrome G89.4 [place] [id number] [place] [address] 98958- 1777 Apr, 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 [facility] [id number] [place] [address] 99087- 9946 Mar, Type 2 diabetes mellitus with hyperglycemia E11.65 ; USP current use of insulin Z79.4 ; Essential hypertension I10 ; Malignant neoplasm of upper-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 C50.412 ; Neuropathy G62.9 ; Chronic kidney disease, stage 4 (severe) N18.4 ; Chronic pain syndrome G89.4 ; Hyperlipidemia LDL goal <70 E78.5 ; GERD without esophagitis K21.9 ; Arthritis of right hip M16.11 and Pain in right knee M25.561 [facility] [id number] [place] [address] 06235- 5955 February, Chronic pain syndrome G89.4 [facility] [address] [place] [address] [id number] February, Dental caries K02.9 [facility] [id number] [place] [address] 04897- 2487 Jan, Type 2 diabetes mellitus with hyperglycemia E11.65 [facility] [id number] [place] [address] 77204- 3626 Jan, Type 2 diabetes mellitus with hyperglycemia E11.65 ; 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 ; Essential hypertension I10 ; Malignant neoplasm of upper-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 C50.412 ; Neuropathy G62.9 ; Chronic kidney disease, stage 4 (severe) N18.4 ; Chronic pain syndrome G89.4 ; Hyperlipidemia LDL goal <70 E78.5 and GERD without esophagitis K21.9 [facility] [id number] [place] [address] 70726- 2267 Jan, Type 2 diabetes mellitus with hyperglycemia E11.65 [facility] [id number] [place] [address] 69145- 4907 Dec, Chronic pain syndrome G89.4 [facility] [id number] [place] [address] 13060- 9461 Nov, Type 2 diabetes mellitus with hyperglycemia E11.65 [facility] [id number] [place] [address] 24396- 1758 Nov, Type 2 diabetes mellitus with hyperglycemia E11.65 [facility] [address] [place] [address] 58613- 4855 Nov, [facility] [id number] [place] [address] 93971- 3190 Nov, Chronic pain syndrome G89.4 [facility] [address] [id number] Nov, Dental caries K02.9 [facility] [address], [place] [address] 3438 Oct, Type 2 diabetes mellitus with hyperglycemia E11.65 ; Encounter for immunization Z23 ; Chronic kidney disease, stage 4 (severe) N18.4 ; 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 ; Essential hypertension I10 ; Neuropathy G62.9 ; Malignant neoplasm of upper-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 C50.412 ; Chronic pain syndrome G89.4 and Tooth infection K04.7 [facility] [id number] [place] [address] 92175- 5063 Oct, Type 2 diabetes mellitus with hyperglycemia E11.65 [facility] [id number] [place] [address] 34772- 9972 Sep, [facility] [address] 37343- 9060 Sep, Chronic kidney disease, stage 4 (severe) N18.4 [facility] [id number] [place] [address] 34473- 3642 Aug, [facility] [id number] [place] [address] 48842- 6365 Aug, Type 2 diabetes mellitus with hyperglycemia E11.65 [facility] [id number] [place] [address] [id number] Aug, Dental examination Z01.20 [facility] [address] [place] [id number] [place] [address] 24758- 6085 Jul, Chronic kidney disease, stage 4 (severe) N18.4 [facility] [address] [place] [address] 98755- 0594 Jul, [facility] [id number] [place] [address] 96092- 2933 Jul, Type 2 diabetes mellitus with hyperglycemia E11.65 ; Chronic kidney disease, stage 4 (severe) N18.4 ; 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 ; Essential hypertension I10 ; Neuropathy G62.9 and Malignant neoplasm of upper-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 C50.412 [facility] [address] [place] [address] 11833- 4543 Jun, [facility] [id number] [place] [address] 01952- 3692 May, [facility] [id number] [place] [address] 00439- 2696 Apr, [facility] [address] 71754- 7550 Apr, Type 2 diabetes mellitus with hyperglycemia E11.65 and Chronic kidney disease, stage 4 (severe) N18.4 [facility] [address] 26331- 3443 Apr, Type 2 diabetes mellitus with hyperglycemia E11.65 [facility] [id number] [place] [address] 35731- 1977 Mar, [facility] [place] [id number] [place] [address] 97757- 1310 Mar, Type 2 diabetes mellitus with hyperglycemia E11.65 ; 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 ; Neuropathy G62.9 and Foot ulcer, left, limited to breakdown of skin L97.521 [facility] [id number] [place] [address] [phone] February, Dental examination Z01.20 [facility] [id number] [place] [address] 28809 -3408 February, Open toe wound, initial encounter S91.109A [facility] [id number] [place] [address] 33933- 5851 February, [facility] [id number] [place] [address] 53367- 9089 February, [facility] [id number] [place] [address] 17206- 1194 February, Hyperkalemia E87.5 [facility] [address] [place] [address]- 0246 February, Hyperkalemia E87.5 [facility] [id number] [place] [address] 61469- 4435 February, Hyperkalemia E87.5 [facility] [address] [place] [address] 09975- 1920 Jan, [facility] [id number] [place] [address] 58945- 6706 Dec, [facility] [address] [place] [address] 39362- 5808 Dec, [facility] [id number] [place] [address] 20084- 1674 Dec, Type 2 diabetes mellitus with hyperglycemia E11.65 ; USP current use of insulin Z79.4 ; Essential hypertension I10 ; Malignant neoplasm of upper-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 C50.412 ; Neuropathy G62.9 and Dental caries on smooth surface penetrating into pulp K02.63 [facility] [address], [place] [address]- 3846 Dec, [facility] [place] [id number] [place] [address] 20437- 3391 Nov, [place] [id number] [place] [address] 64400- 4403 Nov, [place] [id number] [place] [address] 55059- 4204 Oct, Onychocryptosis L60.0 [facility] [address] [place] [address] 73211- 0436 Oct, [place] [id number] [place] [address] 91103- 2417 Sep, Type 2 diabetes mellitus with hyperglycemia E11.65 ; 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 ; Essential hypertension I10 ; Malignant neoplasm of upper-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 C50.412 and Neuropathy G62.9 [facility] [address], [place] [address]- 1374 Sep, [facility] [id number] [place] [address] 55685- 8940 Aug, Onychocryptosis L60.0 and Onychomycosis B35.1 [place] [id number] [place] [address] 32544- 9278 Aug, [facility] [id number] [place] [address] 18477- 9390 Aug, [facility] [id number] [place] [address] 32276- 9199 Jul, Pneumonia of right middle lobe due to infectious organism J18.9 [facility] [id number] [place] [address] 47883- 5641 Jul, [place] [id number] [place] [address] 67189- 0135 Jul, [facility] [id number] [place] [address] 60958- 4489 Jul, [place] [id number] [place] [address] 29756- 3635 Jun, Diabetes mellitus 250.00 ; DM w/o complication type II, uncontrolled 250.02 ; Breast cancer, left 174.9 ; Personal history of antineoplastic chemotherapy V87.41 ; Back pain 724.5 ; Hip pain 719.45 and Ingrown left greater toenail 703.0 [facility] [address] [place] [address] 51009- 2984 Apr, Diabetes mellitus 250.00 ; Breast cancer, left 174.9 ; Personal history of antineoplastic chemotherapy V87.41 ; Back pain 724.5 and Hip pain 719.45 [facility] [address], [place] [address]- 0541 Apr, [facility] [id number] [address]- 7260 Mar, Diabetes mellitus 250.00 ; Breast cancer, left 174.9 ; Personal history of antineoplastic chemotherapy V87.41 ; Back pain 724.5 and Hip pain 719.45 [facility] [address] [facility] [id number] [place] [address]- 7321 Mar, DM w/o complication type II, uncontrolled 250.02 ; Hypertension 401.9 and Breast cancer, left 174.9 IMMUNIZATIONS No Known Immunizations SOCIAL HISTORY Never Assessed REASON FOR VISIT Diabetes--tjanssenMA, --scheduled for mammogram and bone denisty in January PLAN OF CARE Activity Details Follow Up 3 Months Reason:DM VITAL SIGNS Height 68 in 2017-12-26 Weight 222.6 lbs 2017-12-26 Temperature 97.9 degrees Fahrenheit 2017-12-26 Heart Rate 84 bpm 2017-12-26 Respiratory Rate 20 2017-12-26 BMI 33.84 kg/m2 2017-12-26 Blood pressure systolic 132 mmHg 2017-12-26 Blood pressure diastolic 70 mmHg 2017-12-26 MEDICATIONS Medication Instructions Dosage Frequency Start Date End Date Duration Status NovoLog Flexpen 100 UNIT/ML INJECT 10 UNITS SUBCUTANEOUSLY THREE TIMES DAILY WITH MEALS PER SLIDING SCALE 30 Not-Taking FreeStyle Lite Test - In Vitro 4 times a day TEST FOUR TIMES A DAY BEFORE MEALS AND AT BEDTIME 6h Active Metoprolol Succinate ER 25 MG Orally Once a day 1 tablet 24h 30 Active Folic Acid 400 MCG Orally Once a day 1 tablet 24h Active Lisinopril 40 mg Orally Once a day 1 tablet 24h 30 Active Tramadol HCl 50 mg Orally 2 times a day prn 1 tablet as needed Active Letrozole 2.5 MG Orally Once a day 1 tablet 24h Active Hydrochlorothiazide 25 MG Orally Once a day 1 tablet 24h 30 Active Meclizine HCl 25 MG Orally Once a day 1-2 tablet as needed 24h Aug, 30 day(s) Not-Taking Vitamin D3 5000 UNIT Orally Once a day 24h Active Atorvastatin Calcium 10 mg Orally Once a day 1 tablet 24h Active Ascorbic Acid 250 MG Orally Once a day 1 tablet 24h 17 Oct, 2017 Dec, 30 day(s) Not-Taking Metoprolol Tartrate 25 MG Orally Twice a day 0.5 tablet with food 12h Sep, 30 day(s) Active Acetaminophen 500 MG Orally every 6 hrs 2 capsules as needed 6h Active Magnesium Oxide 400 mg Orally 3 times a day 1 capsule 8h Active Fish Oil 1000 MG Orally three times a day 1 capsule 8h Active Lofibra 134 MG TAKE ONE CAPSULE BY MOUTH ONCE DAILY WITH A MEAL 30 Active Amlodipine Besylate 5 mg Orally Once a day 1 tablet 24h Active Pen Woodside 1/2" 29G X 12MM subcutaneously 5 times per day as directed Active Roller Walker - rolling walker with seat Active NovoLog Flexpen 100 unit/ml Subcutaneous 3 times daily with meals, per sliding scale 14 units 30 days Active Gabapentin 300 MG Orally 2 times a day 1 capsule 12h 30 Active Ferrous Sulfate 325 (65 Fe) MG Orally twice a day 1 tablet 12h 17 Oct, 2017 30 day(s) Not-Taking Aspir-81 81 MG Orally Once a day 1 tablet 24h Active Pantoprazole Sodium 40 MG TAKE ONE TABLET BY MOUTH ONCE DAILY 30 Active Levemir FlexTouch 100 units/ml Subcutaneous twice a day 30 units 12h 31 Active Pantoprazole Sodium 40 mg Orally Once a day 1 tablet 24h 30 Active RESULTS Name Result Date Reference Range A1C (IN HOUSE) 2017-12-26 A1C IN HOUSE 7.5 4.3 - 5.6 % Previous A1c 7.4 Lot Exp date LIPID (OUTSIDE LAB) 2018-01-03 PROCEDURES Procedure Date Ordered Result Body Site GLYCATED HEMOGLOBIN TEST December 26, 2017 INSTRUCTIONS MEDICATIONS ADMINISTERED No Known Medications MEDICAL (GENERAL) HISTORY Type Description Date Medical History type II diabetes Medical History hypertension Medical History breast cancer- stage 3. Medical History Received chemotherapy every 3 weeks at [facility] under Dr Billingsley - Chemotherapy completed/now taking [...]
--- OUTSIDE RECORDS SUMMARY | 2018-07-29 06:25 | XMS REPORT ---
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.4 Active 332402374 Problem Malignant neoplasm of upper-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 C50.412 Active 228173970 Problem Type 2 diabetes mellitus with hyperglycemia E11.65 Active 352358928435046 Problem Chronic kidney disease, stage 4 (severe) N18.4 Active 843052577 Problem Hyperkalemia E87.5 Active 40619962 Problem Essential hypertension I10 Active 38192356 Problem Neuropathy G62.9 Active 706249234 Problem Pre-operative examination Z01.818 Active 566005373 Problem 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 Active 773400503 Problem Hyperlipidemia LDL goal <70 E78.5 Active 94199882 Problem Chronic pain syndrome G89.4 Active 273488591 Problem Arthritis of right hip M16.11 Active [id number] Problem GERD without esophagitis K21.9 Active [id number] ALLERGIES No Information ENCOUNTERS Encounter Location Date Diagnosis [place] [id number] [address] February, [facility] [address] [place] [address] 99395- 2502 Jan, Type 2 diabetes mellitus with hyperglycemia E11.65 [facility] [id number] [place] [address] 18664- 8453 Dec, Type 2 diabetes mellitus with hyperglycemia E11.65 [place] [id number] [address] 79[address] Dec, Type 2 diabetes mellitus with hyperglycemia E11.65 [place] [address] [place] [address] 20276- 7088 Dec, Type 2 diabetes mellitus with hyperglycemia E11.65 [place] [id number] [place] [address] 04433- 3610 Dec, Essential hypertension I10 ; Chronic kidney disease, stage 4 (severe) N18.4 ; alf current use of insulin Z79.4 ; Type 2 diabetes mellitus with hyperglycemia E11.65 ; Chronic pain syndrome G89.4 ; Hyperlipidemia LDL goal <70 E78.5 ; GERD without esophagitis K21.9 and Neuropathy G62.9 [place] [id number] [place] [address] 29584- 8338 Nov, [place] [id number] [place] [address] 30635- 7037 Oct, [place] [id number] [place] [address] 88838- 4261 Oct, Pre-operative examination Z01.818 and Chronic kidney disease , stage 4 (severe) N18.4 [place] [id number] [place] [address] 83992- 2667 Sep, [place] [id number] [place] [address] 78513- 9018 Sep, Essential hypertension I10 [place] [id number] [place] [address] 95151- 3558 Sep, Chronic pain syndrome G89.4 [place] [id number] [place] [address] 68648- 8376 Aug, Type 2 diabetes mellitus with hyperglycemia E11.65 ; alf current use of insulin Z79.4 ; Essential hypertension I10 ; Chronic kidney disease, stage 4 (severe) N18.4 ; Chronic pain syndrome G89.4 ; Hyperlipidemia LDL goal <70 E78.5 ; GERD without esophagitis K21.9 ; Neuropathy G62.9 and Vertigo R42 [place] [id number] [place] [address] 62563- 8856 15 Aug, 2017 [place] [id number] [place] [address] 75916- 2803 Aug, [place] [id number] [place] [address] 67120- 8219 Aug, Chronic pain syndrome G89.4 [place] [id number] [place] [address] 29295- 6205 Jul, Chronic pain syndrome G89.4 [place] [id number] [place] [address] 91197- 8207 Jun, Type 2 diabetes mellitus with hyperglycemia E11.65 [place] [id number] [place] [address] 65368- 8966 Jun, Preoperative examination Z01.818 [place] [id number] [place] [address] 60392- 5039 Jun, Chronic pain syndrome G89.4 [place] [id number] [place] [address] 72249- 2797 May, Type 2 diabetes mellitus with hyperglycemia E11.65 [place] [id number] [place] [address] 57379- 1877 May, Chronic pain syndrome G89.4 [place] [id number] [place] [address] 20707- 1913 Apr, Type 2 diabetes mellitus with hyperglycemia E11.65 ; 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 Z79.4 ; Essential hypertension I10 ; Malignant neoplasm of upper-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 C50.412 ; Neuropathy G62.9 ; Chronic kidney disease, stage 4 (severe) N18.4 ; Chronic pain syndrome G89.4 ; Hyperlipidemia LDL goal <70 E78.5 ; GERD without esophagitis K21.9 ; Arthritis of right hip M16.11 and Pain in right knee M25.561 [place] [address] [place] [address] 46975- 9757 Apr, Type 2 diabetes mellitus with hyperglycemia E11.65 [place] [address] [address] 16[address] Apr, Chronic pain syndrome G89.4 [place] [id number] [place] [address] 93770- 8413 Apr, 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 [place] [id number] [place] [address] 46220- 6578 Mar, Type 2 diabetes mellitus with hyperglycemia E11.65 ; alf current use of insulin Z79.4 ; Essential hypertension I10 ; Malignant neoplasm of upper-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 C50.412 ; Neuropathy G62.9 ; Chronic kidney disease, stage 4 (severe) N18.4 ; Chronic pain syndrome G89.4 ; Hyperlipidemia LDL goal <70 E78.5 ; GERD without esophagitis K21.9 ; Arthritis of right hip M16.11 and Pain in right knee M25.561 [place] [id number] [place] [address] 92437- 7908 February, Chronic pain syndrome G89.4 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 Z79.4 ; Essential hypertension I10 ; Malignant neoplasm of upper-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 C50.412 ; Neuropathy G62.9 ; Chronic kidney disease, stage 4 (severe) N18.4 ; Chronic pain syndrome G89.4 ; Hyperlipidemia LDL goal <70 E78.5 and GERD without esophagitis K21.9 [place] [address] [place] [address] 29181- 2861 Jan, Type 2 diabetes mellitus with hyperglycemia E11.65 [facility] [address] [address] 9865 Dec, Chronic pain syndrome G89.4 [facility] [address] [place] [address] 85407- 9853 Nov, Type 2 diabetes mellitus with hyperglycemia E11.65 [facility] [address] [place] [address] 00602- 5167 Nov, Type 2 diabetes mellitus with hyperglycemia E11.65 [facility] [id number] [place] [address] 14151- 2963 Nov, [place] [id number] [place] [address] 98348- 4834 Nov, Chronic pain syndrome G89.4 [facility] [id number] [place] [address] [id number] Nov, Dental caries K02.[address] [place] [address] 29606- 5258 Oct, Type 2 diabetes mellitus with hyperglycemia E11.65 ; Encounter for immunization Z23 ; Chronic kidney disease, stage 4 (severe) N18.4 ; alf current use of insulin Z79.4 ; Essential hypertension I10 ; Neuropathy G62.9 ; Malignant neoplasm of upper-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 C50.412 ; Chronic pain syndrome G89.4 and Tooth infection K04.7 [place] [address] [place] [address] 78055- 0718 Oct, Type 2 diabetes mellitus with hyperglycemia E11.65 [facility] [address] [place] [address] 83104- 5139 Sep, [place] [id number] [place] [address] 19014- 2058 Sep, Chronic kidney disease, stage 4 (severe) N18.4 [place] [address] [place] [address] 23342- 4351 Aug, [place] [address] [address]- 2434 Aug, Type 2 diabetes mellitus with hyperglycemia E11.65 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 Z79.4 ; Essential hypertension I10 ; Neuropathy G62.9 and Malignant neoplasm of upper-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 C50.412 [facility] [address] [address]- 5920 Jun, [facility] [address] [place] [address] 25915- 6033 May, [facility] [address] [address]- 1799 Apr, [facility] [address] [address]- 5636 Apr, Type 2 diabetes mellitus with hyperglycemia E11.65 and Chronic kidney disease, stage 4 (severe) N18.4 [facility] [address] [address]- 1152 Apr, Type 2 diabetes mellitus with hyperglycemia E11.65 [facility] [address] [address]- 0347 Mar, [facility] [address] [address]- 6905 Mar, Type 2 diabetes mellitus with hyperglycemia E11.65 ; 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 [address] [address] February, Dental examination Z01.20 [facility] [address] [address] February, Open toe wound, initial encounter S91.109A [facility] [id number] [place] [address] 92414- 4957 February, [facility] [id number] [place] [address] 15217- 2885 February, [facility] [address] [place] [address] 81121- 1330 February, Hyperkalemia E87.5 [facility] [id number] [place] [address] 11855- 0222 February, Hyperkalemia E87.5 [facility] [address] [place] [address] 08922- 8305 February, Hyperkalemia E87.5 [facility] [address] [address]- 8315 Jan, [facility] [address] [place] [address] 07974- 1716 Dec, [facility] [address] [address]- 6736 Dec, [facility] [address] [place] [address] 84252- 7587 Dec, Type 2 diabetes mellitus with hyperglycemia E11.65 ; alf current use of insulin Z79.4 ; Essential hypertension I10 ; Malignant neoplasm of upper-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 C50.412 ; Neuropathy G62.9 and Dental caries on smooth surface penetrating into pulp K02.63 [facility] [address] [address]- 4525 Dec, [facility] [address] [place] [address] 54435- 5859 Nov, [facility] [id number] [place] [address] 99957- 5148 Nov, [facility] [id number] [place] [address] 69553- 3768 Oct, Onychocryptosis L60.0 [facility] [address] [place] [address] 79488- 6233 Oct, [place] [id number] [place] [address] 71407- 6990 Sep, Type 2 diabetes mellitus with hyperglycemia E11.65 ; 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 Z79.4 ; Essential hypertension I10 ; Malignant neoplasm of upper-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 C50.412 and Neuropathy G62.9 [place] [address] [place] [address] 57218- 4411 Sep, [place] [id number] [place] [address] 03958- 4901 Aug, Onychocryptosis L60.0 and Onychomycosis B35.1 [place] [address] [address]- 2178 Aug, [facility] [address] [place] [address] 31272- 5792 Aug, [facility] [address] [place] [address] 83439- 6936 Jul, Pneumonia of right middle lobe due to infectious organism J18.9 [facility] [address] [address]- 3318 Jul, [place] [address] [place] [address] 43828- 8883 Jul, [place] [address] [place] [address] 86724- 6001 Jul, [place] [id number] [place] [address] 64141- 2017 Jun, Diabetes mellitus 250.00 ; DM w/o complication type II, uncontrolled 250.02 ; Breast cancer, left 174.9 ; Personal history of antineoplastic chemotherapy V87.41 ; Back pain 724.5 ; Hip pain 719.45 and Ingrown left greater toenail 703.0 [place] [id number] [place] [address] 75771- 8841 Apr, Diabetes mellitus 250.00 ; Breast cancer, left 174.9 ; Personal history of antineoplastic chemotherapy V87.41 ; Back pain 724.5 and Hip pain 719.45 [place] [id number] [place] [address] 48981- 7412 Apr, [place] [id number] [place] [address] 27999- 6613 Mar, Diabetes mellitus 250.00 ; Breast cancer, left 174.9 ; Personal history of antineoplastic chemotherapy V87.41 ; Back pain 724.5 and Hip pain 719.45 [place] [id number] [place] [address] 87136- 0373 Mar, DM w/o complication type II, uncontrolled 250.02 ; Hypertension 401.9 and Breast cancer, left 174.9 IMMUNIZATIONS No Known Immunizations SOCIAL HISTORY Never Assessed REASON FOR VISIT Controlled Med Refill-08/29 PLAN OF CARE VITAL SIGNS MEDICATIONS Medication Instructions Dosage Frequency Start Date End Date Duration Status Tramadol HCl 50 mg Orally 2 times a day prn 1 tablet as needed Active RESULTS No Results PROCEDURES No Known procedures INSTRUCTIONS MEDICATIONS ADMINISTERED No Known Medications MEDICAL (GENERAL) HISTORY Type Description Date Medical History type II diabetes Medical History hypertension Medical History breast cancer- stage 3. Medical History Received chemotherapy every 3 weeks at [facility] under Dr Billingsley - Chemotherapy completed/now [...] 2018 Surgical History Right hip replacement 10/2017 Hospitalization History stent placement 04/2015 Hospitalization History right hip replacement 11/08
--- OUTSIDE RECORDS SUMMARY | 2018-07-29 06:26 | XMS REPORT ---
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 Active 311969904 Problem Malignant neoplasm of upper-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 C50.412 Active 947258763 Problem Type 2 diabetes mellitus with hyperglycemia E11.65 Active 402764767505002 Problem Chronic kidney disease, stage 4 (severe) N18.4 Active 664087654 Problem Hyperkalemia E87.5 Active 58186935 Problem Essential hypertension I10 Active 04622105 Problem Neuropathy G62.9 Active 634925400 Problem Pre-operative examination Z01.818 Active 341198037 Problem 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 Active 944216774 Problem Hyperlipidemia LDL goal <70 E78.5 Active 69179936 Problem Chronic pain syndrome G89.4 Active 757433871 Problem Arthritis of right hip M16.11 Active 6990528231366814 Problem GERD without esophagitis K21.9 Active 814248858 ALLERGIES No Information ENCOUNTERS Encounter Location Date Diagnosis [place] [id number] [address] Dec, Type 2 diabetes mellitus with hyperglycemia E11.65 [place] [id number], [place] [address] Dec, Type 2 diabetes mellitus with hyperglycemia E11.65 [address] [id number] [place] [address] 64606- 9251 Dec, Type 2 diabetes mellitus with hyperglycemia E11.65 [place] [id number], [place] [address] Dec, Essential hypertension I10 ; Chronic kidney disease, stage 4 (severe) N18.4 ; FDC current use of insulin Z79.4 ; Type 2 diabetes mellitus with hyperglycemia E11.65 ; Chronic pain syndrome G89.4 ; Hyperlipidemia LDL goal <70 E78.5 ; GERD without esophagitis K21.9 and Neuropathy G62.9 [place] [id number] [place] [address] 16141- 7239 Nov, [place] [id number] [place] [address] 83402- 1848 Oct, [place] [id number] [place] [address] 40028- 1542 Oct, Pre-operative examination Z01.818 and Chronic kidney disease , stage 4 (severe) N18.4 [place] [id number] [place] [address] 15323- 5944 Sep, [address] [address]- [address]61 Sep, Essential hypertension I10 [place] [id number] [place] [address] 19261- 5763 Sep, Chronic pain syndrome G89.4 [place] [id number] [place] [address] 47211- 8403 Aug, Type 2 diabetes mellitus with hyperglycemia E11.65 ; FDC current use of insulin Z79.4 ; Essential hypertension I10 ; Chronic kidney disease, stage 4 (severe) N18.4 ; Chronic pain syndrome G89.4 ; Hyperlipidemia LDL goal <70 E78.5 ; GERD without esophagitis K21.9 ; Neuropathy G62.9 and Vertigo R42 [place] [id number] [place] [address] 11634- 9331 Aug, [place] [id number] [place] [address] 11406- 1890 Aug, [place] [id number] [place] [address] 52916- 8001 Aug, Chronic pain syndrome G89.4 [place] [address], [place] [address] 7768 Jul, Chronic pain syndrome G89.4 [place] [id number] [place] [address] 73893- 9383 Jun, Type 2 diabetes mellitus with hyperglycemia E11.65 [place] [id number] [place] [address] 21620- 9335 Jun, Preoperative examination Z01.818 [place] [id number] [place] [address] 56048- 7106 Jun, Chronic pain syndrome G89.4 [place] [id number] [place] [address] 31519- 1650 May, Type 2 diabetes mellitus with hyperglycemia E11.65 [place] [id number] [place] [address] 75151- 7081 May, Chronic pain syndrome G89.4 [place] [id number] [place] [address] 09732- 9170 Apr, Type 2 diabetes mellitus with hyperglycemia E11.65 ; 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.4 ; Essential hypertension I10 ; Malignant neoplasm of upper-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 C50.412 ; Neuropathy G62.9 ; Chronic kidney disease, stage 4 (severe) N18.4 ; Chronic pain syndrome G89.4 ; Hyperlipidemia LDL goal <70 E78.5 ; GERD without esophagitis K21.9 ; Arthritis of right hip M16.11 and Pain in right knee M25.561 [place] [id number] [place] [address] 28290- 4848 Apr, Type 2 diabetes mellitus with hyperglycemia E11.65 [place] [id number] [place] [address] 23346- 7630 Apr, Chronic pain syndrome G89.4 [place] [id number] [place] [address] 10597- 9086 Apr, 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 [facility] [place] [id number] [place] [address] 64175- 3661 Mar, Type 2 diabetes mellitus with hyperglycemia E11.65 ; FDC current use of insulin Z79.4 ; Essential hypertension I10 ; Malignant neoplasm of upper-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 C50.412 ; Neuropathy G62.9 ; Chronic kidney disease, stage 4 (severe) N18.4 ; Chronic pain syndrome G89.4 ; Hyperlipidemia LDL goal <70 E78.5 ; GERD without esophagitis K21.9 ; Arthritis of right hip M16.11 and Pain in right knee M25.561 [place] [id number] [place] [address] 74117- 1590 February, Chronic pain syndrome G89.4 [facility] [id number] [place] [address] [phone] February, Dental caries K02.9 [place] [id number] [place] [address] 64483- 8759 Jan, Type 2 diabetes mellitus with hyperglycemia E11.65 [place] [id number] [place] [address] 94561- 9134 Jan, Type 2 diabetes mellitus with hyperglycemia E11.65 ; FDC current use of insulin Z79.4 ; Essential hypertension I10 ; Malignant neoplasm of upper-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 C50.412 ; Neuropathy G62.9 ; Chronic kidney disease, stage 4 (severe) N18.4 ; Chronic pain syndrome G89.4 ; Hyperlipidemia LDL goal <70 E78.5 and GERD without esophagitis K21.9 [facility], [place] [id number] [place] [address] 43071- 4630 Jan, Type 2 diabetes mellitus with hyperglycemia E11.65 [place] [id number] [place] [address] 15834- 9146 Dec, Chronic pain syndrome G89.4 [place] [id number] [place] [address] 02345- 1321 Nov, Type 2 diabetes mellitus with hyperglycemia E11.65 [facility], [place] [address], [place] [address] 5745 Nov, Type 2 diabetes mellitus with hyperglycemia E11.65 [facility], [place] [id number] [place] [address] 98697- 8761 Nov, [facility], [place] [id number] [place] [address] 56273- 3241 Nov, Chronic pain syndrome G89.4 [facility] [id number] [place] [address] [id number] Nov, Dental caries K02.9 [place] [id number] [place] [address] 55340- 9774 Oct, Type 2 diabetes mellitus with hyperglycemia E11.65 ; Encounter for immunization Z23 ; Chronic kidney disease, stage 4 (severe) N18.4 ; FDC current use of insulin Z79.4 ; Essential hypertension I10 ; Neuropathy G62.9 ; Malignant neoplasm of upper-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 C50.412 ; Chronic pain syndrome G89.4 and Tooth infection K04.7 [facility], [place] [id number] [place] [address] 89813- 9683 Oct, Type 2 diabetes mellitus with hyperglycemia E11.65 [facility], [place] [id number] [place] [address] 03488- 9169 Sep, [facility], [place] [id number] [place] [address] 22620- 0194 Sep, Chronic kidney disease, stage 4 (severe) N18.4 [facility], [place] [id number] [place] [address] 13421- 1864 Aug, [facility], [place] [id number] [place] [address] 09569- 2031 Aug, Type 2 diabetes mellitus with hyperglycemia E11.65 [facility] [address] [place] [address] [phone] Aug, Dental examination Z01.20 [place] [id number] [place] [address] 75477- 9527 Jul, Chronic kidney disease, stage 4 (severe) N18.4 [place] [id number] [place] [address] 56747- 1961 Jul, [place] [id number] [place] [address] 91273- 9042 Jul, Type 2 diabetes mellitus with hyperglycemia E11.65 ; Chronic kidney disease, stage 4 (severe) N18.4 ; FDC current use of insulin Z79.4 ; Essential hypertension I10 ; Neuropathy G62.9 and Malignant neoplasm of upper-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 C50.412 [place] [id number] [place] [address] 14156- 0443 Jun, [place] [id number] [place] [address] 78189- 9941 May, [place] [id number] [place] [address] 60372- 6640 Apr, [place] [id number] [place] [address] 54584- 7066 Apr, Type 2 diabetes mellitus with hyperglycemia E11.65 and Chronic kidney disease, stage 4 (severe) N18.4 [place] [id number] [place] [address] 80533- 1647 Apr, Type 2 diabetes mellitus with hyperglycemia E11.65 [place] [id number] [place] [address] 80724- 5848 Mar, [place] [id number] [place] [address] 66320- 4170 Mar, Type 2 diabetes mellitus with hyperglycemia E11.65 ; FDC current use of insulin Z79.4 ; Neuropathy G62.9 and Foot ulcer, left, limited to breakdown of skin L97.521 [facility] [address] [place] [address] [phone] February, Dental examination Z01.20 [facility] [address], [place] [address] February, Open toe wound, initial encounter S91.109A [facility], [place] [id number] [place] [address] 85039- 0400 February, [facility], [place] [id number] [place] [address] 63429- 6768 February, [facility] [place] [id number] [place] [address] 07232- 7837 February, Hyperkalemia E87.5 [facility], [place] [id number] [place] [address] 09509- 9031 February, Hyperkalemia E87.5 [facility], [place] [id number] [place] [address] 62225- 1403 February, Hyperkalemia E87.5 [facility] [place] [id number] [place] [address] 29296- 4918 Jan, [facility] [place] [id number] [place] [address] 76537- 3681 Dec, [facility], [place] [id number] [place] [address] 88320- 1600 Dec, [facility] [place] [address] [place] [address] 25438- 8378 Dec, Type 2 diabetes mellitus with hyperglycemia E11.65 ; 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.4 ; Essential hypertension I10 ; Malignant neoplasm of upper-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 C50.412 ; Neuropathy G62.9 and Dental caries on smooth surface penetrating into pulp K02.63 [facility], [place] [address] [place] [address] 46080- 8927 Dec, [facility], [place] [id number] [place] [address] 92641- 5106 Nov, [facility] [place] [id number] [place] [address] 19500- 0117 Nov, [facility] [place] [id number] [place] [address] 79665- 1859 Oct, Onychocryptosis L60.0 [facility], [place] [id number] [place] [address] 85447- 6046 Oct, [facility] [place] [id number] [place] [address] 73661- 0363 Sep, Type 2 diabetes mellitus with hyperglycemia E11.65 ; FDC current use of insulin Z79.4 ; Essential hypertension I10 ; Malignant neoplasm of upper-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 C50.412 and Neuropathy G62.9 [facility] [place] [id number] [place] [address] 00620- 1794 Sep, [facility] [place] [id number] [place] [address] 62143- 3056 Aug, Onychocryptosis L60.0 and Onychomycosis B35.1 [facility], [place] [id number] [place] [address] 38243- 8441 Aug, [facility] [place] [id number] [place] [address] 82238- 2951 Aug, [facility], [place] [id number] [place] [address] 91685- 6425 Jul, Pneumonia of right middle lobe due to infectious organism J18.9 [facility], [place] [address] [place] [address] 89421- 0658 Jul, [facility], [place] [id number] [place] [address] 37880- 9509 Jul, [facility], [place] [id number] [place] [address] 25901- 2251 Jul, [facility] [place] [id number] [place] [address] 74419- 1809 Jun, Diabetes mellitus 250.00 ; DM w/o complication type II, uncontrolled 250.02 ; Breast cancer, left 174.9 ; Personal history of antineoplastic chemotherapy V87.41 ; Back pain 724.5 ; Hip pain 719.45 and Ingrown left greater toenail 703.0 [facility], [place] [id number] [place] [address]- 0504 Apr, Diabetes mellitus 250.00 ; Breast cancer, left 174.9 ; Personal history of antineoplastic chemotherapy V87.41 ; Back pain 724.5 and Hip pain 719.45 [facility], [place] [id number], [place] [address]- 6624 Apr, [facility], [place] [address] [place] [address] 25707- 9487 Mar, Diabetes mellitus 250.00 ; Breast cancer, left 174.9 ; Personal history of antineoplastic chemotherapy V87.41 ; Back pain 724.5 and Hip pain 719.45 [place] [address], [place] [address]- 3402 Mar, DM w/o complication type II, uncontrolled 250.02 ; Hypertension 401.9 and Breast cancer, left 174.9 IMMUNIZATIONS No Known Immunizations SOCIAL HISTORY Never Assessed REASON FOR VISIT Refill request PLAN OF CARE VITAL SIGNS MEDICATIONS Medication Instructions Dosage Frequency Start Date End Date Duration Status Pen Olive 1/2" 29G X 12MM subcutaneously 5 times per day as directed Active RESULTS No Results PROCEDURES No Known procedures INSTRUCTIONS MEDICATIONS ADMINISTERED No Known Medications MEDICAL (GENERAL) HISTORY Type Description Date Medical History type II diabetes Medical History hypertension Medical History breast cancer- stage 3. Medical History Received chemotherapy every 3 weeks at [facility] under Dr Billingsley - Chemotherapy completed/now [...]
--- OUTSIDE RECORDS SUMMARY | 2018-07-29 06:26 | XMS REPORT ---
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 Active 251272319 Problem Malignant neoplasm of upper-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 C50.412 Active 514711400 Problem Type 2 diabetes mellitus with hyperglycemia E11.65 Active 266441177615430 Problem Chronic kidney disease, stage 4 (severe) N18.4 Active 905689011 Problem Hyperkalemia E87.5 Active 63319232 Problem Essential hypertension I10 Active 97860476 Problem Neuropathy G62.9 Active 929320703 Problem Pre-operative examination Z01.818 Active 024250542 Problem 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 Active 518317375 Problem Hyperlipidemia LDL goal <70 E78.5 Active 75700863 Problem Chronic pain syndrome G89.4 Active 580047538 Problem Arthritis of right hip M16.11 Active 8069090357342623 Problem GERD without esophagitis K21.9 Active 060049857 ALLERGIES No Information ENCOUNTERS Encounter Location Date Diagnosis [facility] [id number], [place] [address] Mar, [facility] [id number], [place] [address] Mar, Type 2 diabetes mellitus with hyperglycemia E11.65 [facility] [id number] [address] February, Chronic kidney disease, stage 4 (severe) N18.4 [facility] [id number], [place] [address] February, [address] [address], [place] [address] February, [place] [id number] [place] [address] 94390- 1431 Jan, Type 2 diabetes mellitus with hyperglycemia E11.65 [facility] [id number] [place] [address] 70567- 3003 Dec, Type 2 diabetes mellitus with hyperglycemia E11.65 [facility] [id number] [place] [address] 21529- 4210 Dec, Type 2 diabetes mellitus with hyperglycemia E11.65 [facility] [id number] [place] [address] 12612- 5411 Dec, Type 2 diabetes mellitus with hyperglycemia E11.65 [facility] [id number] [place] [address] 17561- 1914 Dec, Essential hypertension I10 ; Chronic kidney disease, stage 4 (severe) N18.4 ; alf current use of insulin Z79.4 ; Type 2 diabetes mellitus with hyperglycemia E11.65 ; Chronic pain syndrome G89.4 ; Hyperlipidemia LDL goal <70 E78.5 ; GERD without esophagitis K21.9 and Neuropathy G62.9 [place] [address], [place] [address] Nov, [address] [address], [place] [address] Oct, [place] [id number] [place] [address] 49898- 7470 Oct, Pre-operative examination Z01.818 and Chronic kidney disease , stage 4 (severe) N18.4 [place] [address], [place] [address] Sep, [address] [address], [place] [address] Sep, Essential hypertension I10 [place] [id number] [place] [address] 36923- 6193 Sep, Chronic pain syndrome G89.4 [place] [address] [address]- 6[address] Aug, Type 2 diabetes mellitus with hyperglycemia E11.65 ; termite treater current use of insulin Z79.4 ; Essential hypertension I10 ; Chronic kidney disease, stage 4 (severe) N18.4 ; Chronic pain syndrome G89.4 ; Hyperlipidemia LDL goal <70 E78.5 ; GERD without esophagitis K21.9 ; Neuropathy G62.9 and Vertigo R42 [place] [address] [address]- [address] 15 Aug, 2017 [place] [address] [address]- [address]23 Aug, [place] [address] [address]- 9548 Aug, Chronic pain syndrome G89.4 [place] [address] 230[address]- 2121 Jul, Chronic pain syndrome G89.4 [place] [address] 18614- 1268 Jun, Type 2 diabetes mellitus with hyperglycemia E11.65 [facility] [id number] [place] [address] 30686- 8644 Jun, Preoperative examination Z01.818 [facility] [id number] [place] [address] 19555- 5878 Jun, Chronic pain syndrome G89.4 [facility] [id number] [place] [address] 37307- 2371 14 May, 2017 Type 2 diabetes mellitus with hyperglycemia E11.65 [facility] [id number] [place] [address] 33082- 5284 May, Chronic pain syndrome G89.4 [place] [address] [address]- 1674 Apr, Type 2 diabetes mellitus with hyperglycemia E11.65 ; termite treater current use of insulin Z79.4 ; Essential hypertension I10 ; Malignant neoplasm of upper-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 C50.412 ; Neuropathy G62.9 ; Chronic kidney disease, stage 4 (severe) N18.4 ; Chronic pain syndrome G89.4 ; Hyperlipidemia LDL goal <70 E78.5 ; GERD without esophagitis K21.9 ; Arthritis of right hip M16.11 and Pain in right knee M25.561 [place] [id number] [place] [address] 13404- 8360 Apr, Type 2 diabetes mellitus with hyperglycemia E11.65 [facility] [id number] [place] [address] 16823- 2435 Apr, Chronic pain syndrome G89.4 [facility] [place] [id number] [place] [address] 98476- 0774 Apr, 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 [place] [id number] [place] [address] 79862- 3254 Mar, Type 2 diabetes mellitus with hyperglycemia E11.65 ; termite treater current use of insulin Z79.4 ; Essential hypertension I10 ; Malignant neoplasm of upper-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 C50.412 ; Neuropathy G62.9 ; Chronic kidney disease, stage 4 (severe) N18.4 ; Chronic pain syndrome G89.4 ; Hyperlipidemia LDL goal <70 E78.5 ; GERD without esophagitis K21.9 ; Arthritis of right hip M16.11 and Pain in right knee M25.561 [place] [id number] [place] [address] 65581- 2136 February, Chronic pain syndrome G89.4 [facility] [id number] [place] [address] [id number] February, Dental caries K02.9 [facility] [id number] [place] [address] 13314- 9693 Jan, Type 2 diabetes mellitus with hyperglycemia E11.65 [place] [address] [place] [address]- 2511 Jan, Type 2 diabetes mellitus with hyperglycemia E11.65 ; alf current use of insulin Z79.4 ; Essential hypertension I10 ; Malignant neoplasm of upper-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 C50.412 ; Neuropathy G62.9 ; Chronic kidney disease, stage 4 (severe) N18.4 ; Chronic pain syndrome G89.4 ; Hyperlipidemia LDL goal <70 E78.5 and GERD without esophagitis K21.9 [place] [address] [address]- 4663 Jan, Type 2 diabetes mellitus with hyperglycemia E11.65 [place] [address] 13537- 9233 Dec, Chronic pain syndrome G89.4 [place] [address] 0[address]27- 5463 Nov, Type 2 diabetes mellitus with hyperglycemia E11.65 [place] [address] 03647- 9605 Nov, Type 2 diabetes mellitus with hyperglycemia E11.65 [place] [address] 0[address]71- 5503 Nov, [place] [id number] [place] [address] 16019- 7770 Nov, Chronic pain syndrome G89.4 [facility] [id number] [place] [address] [id number] Nov, Dental caries K02.9 [place] [id number] [place] [address] 67270- 9904 Oct, Encounter for immunization Z23 ; Type 2 diabetes mellitus with hyperglycemia E11.65 ; Chronic kidney disease, stage 4 (severe) N18.4 ; termite treater current use of insulin Z79.4 ; Essential hypertension I10 ; Neuropathy G62.9 ; Malignant neoplasm of upper-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 C50.412 ; Chronic pain syndrome G89.4 and Tooth infection K04.7 [place] [address], [place] [address]- 5460 Oct, Type 2 diabetes mellitus with hyperglycemia E11.65 [facility] [address], [place] [address]- 7331 Sep, [facility] [address], [place] [address]- 3805 Sep, Chronic kidney disease, stage 4 (severe) N18.4 [facility] [address], [place] [address]- 9670 Aug, [facility] [address] [place] [address] 31938- 8639 Aug, Type 2 diabetes mellitus with hyperglycemia E11.65 [facility] [address] [id number] Aug, Dental examination Z01.20 [facility] [address] [place] [address] 32501- 7803 Jul, Chronic kidney disease, stage 4 (severe) N18.4 [facility] [address], [place] [address]- 3518 Jul, [facility] [address], [place] [address]- 6075 Jul, Type 2 diabetes mellitus with hyperglycemia E11.65 ; Chronic kidney disease, stage 4 (severe) N18.4 ; alf current use of insulin Z79.4 ; Essential hypertension I10 ; Neuropathy G62.9 and Malignant neoplasm of upper-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 C50.412 [facility] [address], [place] [address]- 8849 Jun, [facility] [address] [place] [address] 50931- 8322 May, [facility] [address], [place] [address]- 6477 Apr, [facility] [id number] [place] [address] 74539- 4673 Apr, Type 2 diabetes mellitus with hyperglycemia E11.65 and Chronic kidney disease, stage 4 (severe) N18.4 [facility] [id number] [place] [address] 36767- 8161 Apr, Type 2 diabetes mellitus with hyperglycemia E11.65 [facility] [address] 32063- 7922 Mar, [facility] [address] 92201- 4100 Mar, Type 2 diabetes mellitus with hyperglycemia E11.65 ; termite treater current use of insulin Z79.4 ; Neuropathy G62.9 and Foot ulcer, left, limited to breakdown of skin L97.521 [facility] [address] [id number] February, Dental examination Z01.20 [facility] [id number] [place] [address] 93110 -9166 February, Open toe wound, initial encounter S91.109A [facility] [address] [address]56- 2572 February, [facility] [id number] [place] [address] 87848- 1085 February, [facility] [id number] [place] [address] 53093- 2988 February, Hyperkalemia E87.5 [facility] [id number] [place] [address] 39633- 8517 February, Hyperkalemia E87.5 [facility] [address] 41041- 7006 February, Hyperkalemia E87.5 [facility] [id number] [place] [address] 69445- 6299 Jan, [facility] [address] [place] [address]- 9295 Dec, [facility] [id number] [place] [address] 06998- 9926 Dec, [facility] [id number] [place] [address] 29303- 3841 Dec, Type 2 diabetes mellitus with hyperglycemia E11.65 ; termite treater current use of insulin Z79.4 ; Essential hypertension I10 ; Malignant neoplasm of upper-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 C50.412 ; Neuropathy G62.9 and Dental caries on smooth surface penetrating into pulp K02.63 [facility] [address] [place] [address] 49545- 1022 Dec, [facility] [id number] [place] [address] 89820- 4969 Nov, [facility] [id number] [place] [address] 48386- 0852 Nov, [facility] [address] [place] [address] 55829- 0219 Oct, Onychocryptosis L60.0 [facility] [address] [place] [address] 48540- 0389 Oct, [facility] [address] [place] [address] 81390- 3006 Sep, Type 2 diabetes mellitus with hyperglycemia E11.65 ; alf current use of insulin Z79.4 ; Essential hypertension I10 ; Malignant neoplasm of upper-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 C50.412 and Neuropathy G62.9 [facility] [address], [place] [address]- 2182 Sep, [facility] [id number] [place] [address] 33951- 6627 Aug, Onychocryptosis L60.0 and Onychomycosis B35.1 [facility] [id number] [place] [address] 55503- 2221 Aug, [facility] [address] [address] Aug, [facility] [address], [place] [address]- 1112 Jul, Pneumonia of right middle lobe due to infectious organism J18.9 [facility] [address], [place] [address]- 8442 Jul, [facility] [address] [place] [address] 44962- 3590 Jul, [facility] [address] [place] [address] 58986- 5909 Jul, [facility] [address] [place] [address] 77661- 3451 Jun, Diabetes mellitus 250.00 ; DM w/o complication type II, uncontrolled 250.02 ; Breast cancer, left 174.9 ; Personal history of antineoplastic chemotherapy V87.41 ; Back pain 724.5 ; Hip pain 719.45 and Ingrown left greater toenail 703.0 [address] [address] [place] [address] 23146- 2051 Apr, Diabetes mellitus 250.00 ; Breast cancer, left 174.9 ; Personal history of antineoplastic chemotherapy V87.41 ; Back pain 724.5 and Hip pain 719.45 [facility] [address], [place] [address]- 5112 Apr, [facility] [id number], [place] [address]- 7234 Mar, Diabetes mellitus 250.00 ; Breast cancer, left 174.9 ; Personal history of antineoplastic chemotherapy V87.41 ; Back pain 724.5 and Hip pain 719.45 [facility] [id number] [address] 1374 Mar, DM w/o complication type II, uncontrolled 250.02 ; Hypertension 401.9 and Breast cancer, left 174.9 IMMUNIZATIONS No Known Immunizations SOCIAL HISTORY Never Assessed REASON FOR VISIT Surgery clearance PLAN OF CARE VITAL SIGNS MEDICATIONS Unknown Medications RESULTS No Results PROCEDURES No Known procedures INSTRUCTIONS MEDICATIONS ADMINISTERED No Known Medications MEDICAL (GENERAL) HISTORY Type Description Date Medical History type II diabetes Medical History hypertension Medical History breast cancer- stage 3. Medical History Received chemotherapy every 3 weeks at [facility] under Dr Billingsley - Chemotherapy completed/now [...]
--- OUTSIDE RECORDS SUMMARY | 2018-07-29 06:27 | XMS REPORT ---
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 insulin Z79.4 Active 096229435 Problem Malignant neoplasm of upper-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 C50.412 Active 834518676 Problem Type 2 diabetes mellitus with hyperglycemia E11.65 Active 875873681835745 Problem Chronic kidney disease, stage 4 (severe) N18.4 Active 646588238 Problem Hyperkalemia E87.5 Active 22462329 Problem Essential hypertension I10 Active 01306000 Problem Neuropathy G62.9 Active 196046267 Problem Pre-operative examination Z01.818 Active 728954015 Problem 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 Active 980466698 Problem Hyperlipidemia LDL goal <70 E78.5 Active 66353205 Problem Chronic pain syndrome G89.4 Active 496176705 Problem Arthritis of right hip M16.11 Active 5578106871058252 Problem GERD without esophagitis K21.9 Active 240900279 ALLERGIES No Information ENCOUNTERS Encounter Location Date Diagnosis [facility] [id number] [address] Jan, Type 2 diabetes mellitus with hyperglycemia E11.65 [facility] [id number] [address] Dec, Type 2 diabetes mellitus with hyperglycemia E11.65 [place] [id number] [place] [address] 38759- 8623 Dec, Type 2 diabetes mellitus with hyperglycemia E11.65 [facility] [id number] [address] Dec, Type 2 diabetes mellitus with hyperglycemia E11.65 [facility] [address] [address] Dec, Essential hypertension I10 ; Chronic kidney disease, stage 4 (severe) N18.4 ; [facility] current use of insulin Z79.4 ; Type 2 diabetes mellitus with hyperglycemia E11.65 ; Chronic pain syndrome G89.4 ; Hyperlipidemia LDL goal <70 E78.5 ; GERD without esophagitis K21.9 and Neuropathy G62.9 [facility] [id number] [place] [address] 04254- 6245 Nov, [facility] [id number] [place] [address] 60666- 8851 Oct, [facility] [id number] [place] [address] 30324- 7591 Oct, Pre-operative examination Z01.818 and Chronic kidney disease , stage 4 (severe) N18.4 [facility] [id number] [place] [address] 25727- 8282 Sep, [facility] [id number] [place] [address] 36479- 2814 Sep, Essential hypertension I10 [facility] [id number] [place] [address] 57093- 9782 Sep, Chronic pain syndrome G89.4 [facility] [id number] [place] [address] 29561- 3633 Aug, Type 2 diabetes mellitus with hyperglycemia E11.65 ; manager 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 current use of insulin Z79.4 ; Essential hypertension I10 ; Chronic kidney disease, stage 4 (severe) N18.4 ; Chronic pain syndrome G89.4 ; Hyperlipidemia LDL goal <70 E78.5 ; GERD without esophagitis K21.9 ; Neuropathy G62.9 and Vertigo R42 [facility] [facility] [id number] [place] [address] 97641- 5023 Aug, [facility] [id number] [place] [address] 87445- 8586 Aug, [facility] [id number] [place] [address] 64044- 4776 Aug, Chronic pain syndrome G89.4 [facility] [id number] [place] [address] 31526- 7924 Jul, Chronic pain syndrome G89.4 [facility] [id number] [place] [address] 41292- 6536 Jun, Type 2 diabetes mellitus with hyperglycemia E11.65 [facility] [id number] [place] [address] 23282- 9458 Jun, Preoperative examination Z01.818 [facility] [id number] [place] [address] 41734- 8240 Jun, Chronic pain syndrome G89.4 [facility] [address] 8[address]69- 8990 May, Type 2 diabetes mellitus with hyperglycemia E11.65 [facility] [id number] [place] [address] 62306- 9532 May, Chronic pain syndrome G89.4 [facility] [id number] [place] [address] 75136- 4575 Apr, Type 2 diabetes mellitus with hyperglycemia [...] M16.11 and Pain in right knee M25.561 [facility] [id number] [place] [address] 76266- 3062 Apr, Type 2 diabetes mellitus with hyperglycemia E11.65 [facility] [id number] [place] [address] 54441- 7345 Apr, Chronic pain syndrome G89.4 [facility] [address] [address] 978[address] Apr, 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 [facility] [id number] [place] [address] 04327- 4840 Mar, Type 2 diabetes mellitus with hyperglycemia [...] M16.11 and Pain in right knee M25.561 [place] [facility] [id number] [place] [address] 76604- 5002 February, Chronic pain syndrome G89.4 [facility] [address] [id number] February, Dental caries K02.9 [place] [id number] [place] [address] 30581- 1105 Jan, Type 2 diabetes mellitus with hyperglycemia E11.65 [place] [id number] [place] [address] 44885- 6129 Jan, Type 2 diabetes mellitus with hyperglycemia E11.65 ; [facility] current use of insulin Z79.4 ; Essential hypertension I10 ; Malignant neoplasm of upper-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 C50.412 ; Neuropathy G62.9 ; Chronic kidney disease, stage 4 (severe) N18.4 ; Chronic pain syndrome G89.4 ; Hyperlipidemia LDL goal <70 E78.5 and GERD without esophagitis K21.9 [place] [facility] [id number] [place] [address] 33893- 4700 Jan, Type 2 diabetes mellitus with hyperglycemia E11.65 [place] [id number] [place] [address] 75874- 5920 Dec, Chronic pain syndrome G89.4 [facility] [address] [address] Nov, Type 2 diabetes mellitus with hyperglycemia E11.65 [facility] [address] [place] [address] 03550- 8729 Nov, Type 2 diabetes mellitus with hyperglycemia E11.65 [facility] [address] [place] [address] 55048- 3124 Nov, [facility] [id number] [place] [address] 80326- 1858 Nov, Chronic pain syndrome G89.4 [facility] [id number] [place] [address] [phone] Nov, Dental caries K02.9 [place] [id number] [place] [address] 29704- 1448 Oct, Type 2 diabetes mellitus with hyperglycemia E11.65 ; Encounter for immunization Z23 ; Chronic kidney disease, stage 4 (severe) N18.4 ; manager 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 current use of insulin Z79.4 ; Essential hypertension I10 ; Neuropathy G62.9 ; Malignant neoplasm of upper-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 C50.412 ; Chronic pain syndrome G89.4 and Tooth infection K04.7 [facility] [address] [address] 4[address] Oct, Type 2 diabetes mellitus with hyperglycemia E11.65 [facility] [id number] [place] [address] 67296- 2272 Sep, [facility] [address] [place] [address] 37097- 6832 Sep, Chronic kidney disease, stage 4 (severe) N18.4 [facility] [address] [place] [address] 66395- 0824 Aug, [facility] [id number] [place] [address] 31943- 7521 Aug, Type 2 diabetes mellitus with hyperglycemia E11.65 [facility] [id number] [id number] Aug, 2016 Dental examination Z01.20 [facility] [id number] [place] [address] 65096- 6742 Jul, Chronic kidney disease, stage 4 (severe) N18.4 [place] [facility] [id number] [place] [address] 49616- 7340 Jul, [facility] [id number] [place] [address] 02338- 4775 Jul, Type 2 diabetes mellitus with hyperglycemia E11.65 ; Chronic kidney disease, stage 4 (severe) N18.4 ; [facility] current use of insulin Z79.4 ; Essential hypertension I10 ; Neuropathy G62.9 and Malignant neoplasm of upper-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 C50.412 [place] [facility] [id number] [place] [address] 06619- 3514 Jun, [place] [facility] [id number] [place] [address] 34132- 6220 May, [facility] [id number] [place] [address] 22967- 4721 Apr, [place] [facility] [id number] [place] [address] 03154- 5167 Apr, Type 2 diabetes mellitus with hyperglycemia E11.65 and Chronic kidney disease, stage 4 (severe) N18.4 [place] [id number] [place] [address] 19194- 5042 Apr, Type 2 diabetes mellitus with hyperglycemia E11.65 [place] [address] [place] [address] 09397- 7484 Mar, [facility] [id number] [place] [address] [phone]- 8359 Mar, Type 2 diabetes mellitus with hyperglycemia E11.65 ; [facility] current use of insulin Z79.4 ; Neuropathy G62.9 and Foot ulcer, left, limited to breakdown of skin L97.521 [facility] [id number] [phone] February, Dental examination Z01.20 [facility] [address] [place] [address] 50083 -8830 February, Open toe wound, initial encounter S91.109A [facility] [id number] [place] [address] 99248- 5447 February, [facility] [id number] [place] [address] 65414- 3669 February, [facility] [id number] [place] [address] 43175- 2595 February, Hyperkalemia E87.5 [facility] [id number] [place] [address] 38525- 6720 February, Hyperkalemia E87.5 [facility] [id number] [place] [address] 10141- 7230 February, Hyperkalemia E87.5 [facility] [id number] [place] [address] 94303- 0152 Jan, [facility] [id number] [place] [address] 85787- 7269 Dec, [facility] [address] [place] [address] 84556- 2114 Dec, [facility] [id number] [place] [address] 83965- 3289 Dec, Type 2 diabetes mellitus with hyperglycemia E11.65 ; [facility] current use of insulin Z79.4 ; Essential hypertension I10 ; Malignant neoplasm of upper-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 C50.412 ; Neuropathy G62.9 and Dental caries on smooth surface penetrating into pulp K02.63 [facility] [address] [place] [address] 95023- 1808 Dec, [facility] [address] [address]- 8388 Nov, [facility] [id number] [place] [address] 85251- 6439 Nov, [facility] [id number] [place] [address] 22733- 3653 Oct, Onychocryptosis L60.0 [facility] [id number] [place] [address] 67728- 7456 Oct, [facility] [address] [place] [address] 68669- 4027 Sep, Type 2 diabetes mellitus with hyperglycemia E11.65 ; [facility] current use of insulin Z79.4 ; Essential hypertension I10 ; Malignant neoplasm of upper-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 C50.412 and Neuropathy G62.9 [place] [id number] [place] [address] 74969- 9894 Sep, [facility] [id number] [place] [address] 23192- 4430 Aug, Onychocryptosis L60.0 and Onychomycosis B35.1 [place] [id number] [place] [address] 70579- 7006 Aug, [facility] [address] [address]- 9037 Aug, [facility] [id number] [place] [address] 88407- 8536 Jul, Pneumonia of right middle lobe due to infectious organism J18.9 [facility] [id number] [place] [address] 75546- 3977 Jul, [facility] [id number] [place] [address] 06531- 0764 Jul, [facility] [address] [place] [address] 20233- 9962 Jul, [place] [address] [address] 3039 Jun, Diabetes mellitus 250.00 ; DM w/o complication type II, uncontrolled 250.02 ; Breast cancer, left 174.9 ; Personal history of antineoplastic chemotherapy V87.41 ; Back pain 724.5 ; Hip pain 719.45 and Ingrown left greater toenail 703.0 [place] [facility] [id number] [place] [address] 03865- 0111 Apr, Diabetes mellitus 250.00 ; Breast cancer, left 174.9 ; Personal history of antineoplastic chemotherapy V87.41 ; Back pain 724.5 and Hip pain 719.45 [id number] [place] [address] 90178- 0137 Apr, [place] [id number] [place] [address] 65211- 4752 Mar, Diabetes mellitus 250.00 ; Breast cancer, left 174.9 ; Personal history of antineoplastic chemotherapy V87.41 ; Back pain 724.5 and Hip pain 719.45 [place] [id number] [place] [address] 04026- 6023 Mar, DM w/o complication type II, uncontrolled 250.02 ; Hypertension 401.9 and Breast cancer, left 174.9 IMMUNIZATIONS No Known Immunizations SOCIAL HISTORY Never Assessed REASON FOR VISIT Refill request PLAN OF CARE VITAL SIGNS MEDICATIONS Medication Instructions Dosage Frequency Start Date End Date Duration Status Pen Stigler 1/2" 29G X 12MM subcutaneously 5 times per day as directed Active RESULTS No Results PROCEDURES No Known procedures INSTRUCTIONS MEDICATIONS ADMINISTERED No Known Medications MEDICAL (GENERAL) HISTORY Type Description Date Medical History type II diabetes Medical History hypertension Medical History breast cancer- stage 3. Medical History Received chemotherapy every 3 weeks at [facility] under Dr Billingsley - Chemotherapy completed/now taking [...]
--- OUTSIDE RECORDS SUMMARY | 2018-07-29 06:27 | XMS REPORT ---
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 Role Phone ROB NUNEZ Unavailable PROBLEMS Type Condition ICD9-CM Code [id number] Code Onset Dates Condition Status SNOMED Code Problem Malignant neoplasm of upper-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 C50.412 Active 748735890 Problem Foot ulcer, left, limited to breakdown of skin L97.521 Active 32505559 Problem Dental caries on smooth surface penetrating into pulp K02.63 Active 581914416 Problem 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 Active 897247240 Problem Arthritis of right hip M16.11 Active 5610601680950403 Problem Hyperlipidemia LDL goal <70 E78.5 Active 75895805 Problem Chronic pain syndrome G89.4 Active 334685682 Problem Pain in right knee M25.561 Active 14576483 Problem GERD without esophagitis K21.9 Active 322182103 Problem Essential hypertension I10 Active 26876439 Problem Neuropathy G62.9 Active 778377326 Problem Hyperkalemia E87.5 Active 71935335 Problem [facility] current use of insulin Z79.4 Active 710656689 Problem Chronic kidney disease, stage 4 (severe) N18.4 Active 603033516 Problem Type 2 diabetes mellitus with hyperglycemia E11.65 Active 374496667775146 ALLERGIES Substance Reaction Event Type Date Status Codeine Sulfate Unknown Drug Allergy February, Active SOCIAL HISTORY Never Assessed PLAN OF CARE Activity Details Follow Up prn Reason:remove timothy protrusion- 1 hour VITAL SIGNS Blood pressure systolic 144 mmHg 2017-02-20 Blood pressure diastolic 66 mmHg 2017-02-20 MEDICATIONS Medication Instructions Dosage Frequency Start Date End Date Duration Status Folic Acid 400 MCG Orally Once a day 1 tablet 24h Active Vitamin D3 2000 UNIT Active Fish Oil 1000 MG Orally Twice a day 1 capsule 12h Active Metoprolol Succinate ER 25 MG Orally Once a day 1 tablet 24h 30 Active Lisinopril 40 mg Orally Once a day 1 tablet 24h 30 Active Amlodipine Besylate 5 mg Orally Once a day 1 tablet 24h Active Aspir-81 81 MG Orally Once a day 1 tablet 24h Active Atorvastatin Calcium 10 mg Orally Once a day 1 tablet 24h Active Levemir FlexTouch 100 UNIT/ML Subcutaneous twice a day 30 units 12h 31 Active Hydrochlorothiazide 25 MG Orally Once a day 1 tablet 24h 30 Active Tramadol HCl 50 mg Orally 2 times a day prn 1 tablet as needed 30 Jun, 2015 Active NovoLog Flexpen 100 UNIT/ML Subcutaneous 3 times daily with meals, per sliding scale 9 units 30 days Active Magnesium Oxide 400 MG Orally 2 times a day 1 capsule 12h Active FreeStyle Lite Test - TEST BLOOD SUGAR FOUR TIMES A DAY BEFORE MEALS AND AT BEDTIME 25 Active Pantoprazole Sodium 40 mg Orally Once a day 1 tablet 24h 30 Active Acetaminophen 500 MG Orally every 6 hrs 2 capsules as needed 6h Active Gabapentin 300 MG Orally 2 times a day 1 capsule 12h 30 Active Letrozole 2.5 MG Orally Once a day 1 tablet 24h Active Lofibra 134 MG TAKE ONE CAPSULE BY MOUTH ONCE DAILY WITH A MEAL 30 Active Pen Troy 1/2" 29G X 12MM subcutaneously 5 times per day as directed Active RESULTS No Results PROCEDURES Procedure Date Ordered Result Body Site EXTRAC ERUPTED TOOTH/EXPOSED ROOT February 20, 2017 EXTRAC ERUPTED TOOTH/EXPOSED ROOT February 20, 2017 EXTRAC ERUPTED TOOTH/EXPOSED ROOT February 20, 2017 EXTRAC ERUPTED TOOTH/EXPOSED ROOT February 20, 2017 EXTRAC ERUPTED TOOTH/EXPOSED ROOT February 20, 2017 EXTRAC ERUPTED TOOTH/EXPOSED ROOT February 20, 2017 EXTRAC ERUPTED TOOTH/EXPOSED ROOT February 20, 2017 EXTRAC ERUPTED TOOTH/EXPOSED ROOT February 20, 2017 EXTRAC ERUPTED TOOTH/EXPOSED ROOT February 20, 2017 EXTRAC ERUPTED TOOTH/EXPOSED ROOT February 20, 2017 SURG REMOVAL ERUPTED TOOTH February 20, 2017 SURG REMOVAL ERUPTED TOOTH February 20, 2017 EXTRAC ERUPTED TOOTH/EXPOSED ROOT February 20, 2017 SURG REMOVAL ERUPTED TOOTH February 20, 2017 IMMUNIZATIONS No Known Immunizations MEDICAL (GENERAL) HISTORY Type Description Date Medical History type II diabetes Medical History hypertension Medical History breast cancer- stage 3. Medical History Received chemotherapy every 3 weeks at [facility] under Dr Billingsley - Chemotherapy completed/now taking letrozole x10 years. Medical History CAD Medical History Hyperlipidemia Medical History Pulmonary HTN with PAP of 40 per Card 2015 Surgical History left mastectomy 01/2015 Surgical History lymph node removal x6 01/2015 Surgical History cholecystectomy Surgical History tubal ligation Surgical History carotid endarterectomy Surgical History port a cath placement 02/2015 Surgical History DENTAL--PLEASE VERIFY TEETH NUMBERS THAT NEED EXTRACTED DENTAL Surgical History Colonoscopy 4 tubular adenomas due 2018 Hospitalization History stent placement 04/2015
--- OUTSIDE RECORDS SUMMARY | 2018-07-29 06:27 | XMS REPORT ---
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 Active 482707271 Problem Malignant neoplasm of upper-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 C50.412 Active 276108278 Problem Type 2 diabetes mellitus with hyperglycemia E11.65 Active 723769834388268 Problem Chronic kidney disease, stage 4 (severe) N18.4 Active 338783537 Problem Hyperkalemia E87.5 Active 07865416 Problem Essential hypertension I10 Active 27441141 Problem Neuropathy G62.9 Active 524287522 Problem Pre-operative examination Z01.818 Active 006138276 Problem 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 Active 968261798 Problem Hyperlipidemia LDL goal <70 E78.5 Active 76561649 Problem Chronic pain syndrome G89.4 Active 355288770 Problem Arthritis of right hip M16.11 Active [id number] Problem GERD without esophagitis K21.9 Active [id number] ALLERGIES No Information ENCOUNTERS Encounter Location Date Diagnosis [facility] [id number] [address] February, Chronic kidney disease, stage 4 (severe) N18.4 [facility] [id number] [address] February, [facility] [id number] [place] [address]43[address]45 February, [facility] [id number] [address] Jan, Type 2 diabetes mellitus with hyperglycemia E11.65 [address] [address] Dec, Type 2 diabetes mellitus with hyperglycemia E11.65 [place] [address] [address] Dec, Type 2 diabetes mellitus with hyperglycemia E11.65 [place] [address] [address] Dec, Type 2 diabetes mellitus with hyperglycemia E11.65 [place] [address] [address] Dec, Essential hypertension I10 ; Chronic kidney disease, stage 4 (severe) N18.4 ; shelter current use of insulin Z79.4 ; Type 2 diabetes mellitus with hyperglycemia E11.65 ; Chronic pain syndrome G89.4 ; Hyperlipidemia LDL goal <70 E78.5 ; GERD without esophagitis K21.9 and Neuropathy G62.9 [place] [address] [address] Nov, [place] [address] [address] Oct, [place] [address] [address] [address] Oct, Pre-operative examination Z01.818 and Chronic kidney disease , stage 4 (severe) N18.4 [place] [address] [address] Sep, [place] [address] [address] Sep, Essential hypertension I10 [place] [address] [address] [address] Sep, Chronic pain syndrome G89.4 [place] [address] [address] Aug, Type 2 diabetes mellitus with hyperglycemia E11.65 ; shelter current use of insulin Z79.4 ; Essential hypertension I10 ; Chronic kidney disease, stage 4 (severe) N18.4 ; Chronic pain syndrome G89.4 ; Hyperlipidemia LDL goal <70 E78.5 ; GERD without esophagitis K21.9 ; Neuropathy G62.9 and Vertigo R42 [place] [id number] [place] [address]68- 2143 15 Aug, 2017 [place] [address] [address] Aug, [place] [id number] [place] [address] 31676- 1872 Aug, Chronic pain syndrome G89.4 [place] [id number] [place] [address] 20519- 1594 Jul, Chronic pain syndrome G89.4 [place] [id number] [place] [address] 63264- 2852 Jun, Type 2 diabetes mellitus with hyperglycemia E11.65 [place] [id number] [place] [address] 88877- 7262 Jun, Preoperative examination Z01.[address] [address] Jun, Chronic pain syndrome G89.4 [place] [id number] [place] [address] 99384- 2593 May, Type 2 diabetes mellitus with hyperglycemia E11.65 [place] [id number] [place] [address] 56927- 6812 May, Chronic pain syndrome G89.4 [place] [id number] [place] [address] 85502- 3973 Apr, Type 2 diabetes mellitus with hyperglycemia E11.65 ; shelter current use of insulin Z79.4 ; Essential hypertension I10 ; Malignant neoplasm of upper-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 C50.412 ; Neuropathy G62.9 ; Chronic kidney disease, stage 4 (severe) N18.4 ; Chronic pain syndrome G89.4 ; Hyperlipidemia LDL goal <70 E78.5 ; GERD without esophagitis K21.9 ; Arthritis of right hip M16.11 and Pain in right knee M25.561 [address] [address] [place] [address] 00448- 1052 Apr, Type 2 diabetes mellitus with hyperglycemia E11.65 [id number] [place] [address] 27819- 5225 Apr, Chronic pain syndrome G89.4 [place] [id number] [place] [address] 35519- 9989 Apr, 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 [id number] [place] [address] 04521- 8598 Mar, Type 2 diabetes mellitus with hyperglycemia E11.65 ; shelter current use of insulin Z79.4 ; Essential hypertension I10 ; Malignant neoplasm of upper-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 C50.412 ; Neuropathy G62.9 ; Chronic kidney disease, stage 4 (severe) N18.4 ; Chronic pain syndrome G89.4 ; Hyperlipidemia LDL goal <70 E78.5 ; GERD without esophagitis K21.9 ; Arthritis of right hip M16.11 and Pain in right knee M25.561 [place] [address] [place] [address] 17940- 8660 February, Chronic pain syndrome G89.4 [facility] [address] [place] [address] [id number] February, Dental caries K02.9 [address] [address] [place] [address] 63516- 0480 Jan, Type 2 diabetes mellitus with hyperglycemia E11.65 [id number] [place] [address] 58558- 4496 Jan, Type 2 diabetes mellitus with hyperglycemia E11.65 ; shelter current use of insulin Z79.4 ; Essential hypertension I10 ; Malignant neoplasm of upper-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 C50.412 ; Neuropathy G62.9 ; Chronic kidney disease, stage 4 (severe) N18.4 ; Chronic pain syndrome G89.4 ; Hyperlipidemia LDL goal <70 E78.5 and GERD without esophagitis K21.9 [facility] [address] [address]- [address] Jan, Type 2 diabetes mellitus with hyperglycemia E11.65 [place] [id number] [place] [address] 72779- 1264 Dec, Chronic pain syndrome G89.4 [place] [address] 67[address]- 8473 Nov, Type 2 diabetes mellitus with hyperglycemia E11.65 [place] [address] [address]- [address] Nov, Type 2 diabetes mellitus with hyperglycemia E11.65 [place] [address] [address]- 3503 Nov, [place] [address] [address]- 3491 Nov, Chronic pain syndrome G89.4 [facility] [address] [id number] Nov, Dental caries K02.9 [id number] [place] [address] 55026- 0733 Oct, Encounter for immunization Z23 ; Type 2 diabetes mellitus with hyperglycemia E11.65 ; Chronic kidney disease, stage 4 (severe) N18.4 ; 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 ; Essential hypertension I10 ; Neuropathy G62.9 ; Malignant neoplasm of upper-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 C50.412 ; Chronic pain syndrome G89.4 and Tooth infection K04.7 [id number] [place] [address] 03983- 4457 Oct, Type 2 diabetes mellitus with hyperglycemia E11.65 [place] [id number] [place] [address] 04212- 9080 Sep, [address] [place] [address] 27356- 3028 Sep, Chronic kidney disease, stage 4 (severe) N18.4 [facility] [id number] [place] [address] 64033- 5715 Aug, [facility] [id number] [place] [address] 68765- 9837 Aug, Type 2 diabetes mellitus with hyperglycemia E11.65 [facility] [id number] [place] [address] [id number] Aug, Dental examination Z01.20 [place] [address] 15207- 1234 Jul, Chronic kidney disease, stage 4 (severe) N18.4 [facility] [id number] [place] [address] 28197- 6032 Jul, [facility] [id number] [place] [address] 81622- 4188 Jul, Type 2 diabetes mellitus with hyperglycemia E11.65 ; Chronic kidney disease, stage 4 (severe) N18.4 ; shelter current use of insulin Z79.4 ; Essential hypertension I10 ; Neuropathy G62.9 and Malignant neoplasm of upper-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 C50.412 [facility] [address] [place] [address] 27658- 7676 Jun, [facility] [id number] [place] [address] 72006- 6445 May, [facility] [id number] [place] [address] 91020- 1313 Apr, [facility] [id number] [place] [address] 85922- 7751 Apr, Type 2 diabetes mellitus with hyperglycemia E11.65 and Chronic kidney disease, stage 4 (severe) N18.4 [facility] [id number] [place] [address] 75397- 8661 Apr, Type 2 diabetes mellitus with hyperglycemia E11.65 [facility] [address] [address] Mar, [facility] [id number] [place] [address] 19156- 5078 Mar, Type 2 diabetes mellitus with hyperglycemia E11.65 ; 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 ; Neuropathy G62.9 and Foot ulcer, left, limited to breakdown of skin L97.521 [facility] [id number] [place] [address] [phone] February, Dental examination Z01.20 [facility] [id number] [place] [address] 34760 -0768 February, Open toe wound, initial encounter S91.109A [facility] [id number] [place] [address] 16206- 4828 February, [facility] [id number] [place] [address] 86850- 3581 February, [facility] [id number] [place] [address] 21019- 9868 February, Hyperkalemia E87.5 [facility] [id number] [place] [address] 52654- 9927 February, Hyperkalemia E87.5 [facility] [id number] [place] [address] 12485- 8682 February, Hyperkalemia E87.5 [facility] [address] [address]- 1079 Jan, [facility] [id number] [place] [address] 69930- 7418 Dec, [facility] [address] [place] [address] 14940- 8530 Dec, [facility] [id number] [place] [address] 60960- 2379 Dec, Type 2 diabetes mellitus with hyperglycemia E11.65 ; shelter current use of insulin Z79.4 ; Essential hypertension I10 ; Malignant neoplasm of upper-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 C50.412 ; Neuropathy G62.9 and Dental caries on smooth surface penetrating into pulp K02.63 [facility] [address] [place] [address] 10188- 4912 Dec, [facility] [id number] [place] [address] 83332- 8665 Nov, [place] [id number] [place] [address] 65755- 9412 Nov, [place] [id number] [place] [address] 54168- 9057 Oct, Onychocryptosis L60.0 [place] [id number] [place] [address] 44518- 3790 Oct, [place] [id number] [place] [address] 34882- 9047 Sep, Type 2 diabetes mellitus with hyperglycemia E11.65 ; 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 ; Essential hypertension I10 ; Malignant neoplasm of upper-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 C50.412 and Neuropathy G62.9 [place] [address] [place] [address] 26934- 8867 Sep, [place] [id number] [place] [address] 46136- 9899 Aug, Onychocryptosis L60.0 and Onychomycosis B35.1 [place] [id number] [place] [address] 44843- 1428 Aug, [place] [id number] [place] [address] 11774- 6476 Aug, [facility] [address] [place] [address] 26845- 8854 Jul, Pneumonia of right middle lobe due to infectious organism J18.9 [place] [place] [address] [address]- 3097 Jul, [place] [id number] [place] [address] 21470- 5564 Jul, [place] [address] [place] [address] 76685- 8711 Jul, [place] [id number] [place] [address] 62829- 7964 Jun, Diabetes mellitus 250.00 ; DM w/o complication type II, uncontrolled 250.02 ; Breast cancer, left 174.9 ; Personal history of antineoplastic chemotherapy V87.41 ; Back pain 724.5 ; Hip pain 719.45 and Ingrown left greater toenail 703.[address] [place] [address] 95036- 0250 Apr, Diabetes mellitus 250.00 ; Breast cancer, left 174.9 ; Personal history of antineoplastic chemotherapy V87.41 ; Back pain 724.5 and Hip pain 719.45 [id number] [place] [address] 20659- 4173 Apr, [place] [address] [place] [address] 21326- 7994 Mar, Diabetes mellitus 250.00 ; Breast cancer, left 174.9 ; Personal history of antineoplastic chemotherapy V87.41 ; Back pain 724.5 and Hip pain 719.45 [address] [place] [address] 97639- 2305 Mar, DM w/o complication type II, uncontrolled 250.02 ; Hypertension 401.9 and Breast cancer, left 174.9 IMMUNIZATIONS No Known Immunizations SOCIAL HISTORY Never Assessed REASON FOR VISIT Controlled Med Refill-09/25 PLAN OF CARE VITAL SIGNS MEDICATIONS Medication [...] Received chemotherapy every 3 weeks at [facility] under Dr Billingsley - Chemotherapy completed/now [...]
--- OUTSIDE RECORDS SUMMARY | 2018-07-29 06:28 | XMS REPORT ---
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 C50.412 Active 542732385 Problem Type 2 diabetes mellitus with hyperglycemia E11.65 Active 163500459290709 Problem Chronic kidney disease, stage 4 (severe) N18.4 Active 223362349 Problem Hyperkalemia E87.5 Active 66620091 Problem Essential hypertension I10 Active 49445085 Problem Neuropathy G62.9 Active 276573329 Problem Pre-operative examination Z01.818 Active 269549854 Problem 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 Active 805868196 Problem Hyperlipidemia LDL goal <70 E78.5 Active 45091662 Problem Chronic pain syndrome G89.4 Active 876732532 Problem Arthritis of right hip M16.11 Active [id number] Problem GERD without esophagitis K21.9 Active 801663465 ALLERGIES Substance Reaction Event Type Date Status Codeine Sulfate Unknown Drug Allergy Oct, Active ENCOUNTERS Encounter Location Date Diagnosis [facility] [id number], [place] [address] Mar, [facility] [id number], [place] [address] Mar, Type 2 diabetes mellitus with hyperglycemia E11.65 [facility] [id number], [place] [address] February, Chronic kidney disease, stage 4 (severe) N18.4 [facility] [id number], [place] [address] February, [address], [place] [address] February, [address] [address] [place] [address]20- 2101 Jan, Type 2 diabetes mellitus with hyperglycemia E11.65 [place] [id number] [place] [address] 17080- 8709 Dec, Type 2 diabetes mellitus with hyperglycemia E11.65 [place] [id number] [place] [address] 00901- 4057 Dec, Type 2 diabetes mellitus with hyperglycemia E11.65 [place] [id number] [place] [address] 73725- 1967 Dec, Type 2 diabetes mellitus with hyperglycemia E11.65 [place] [id number] [place] [address] 74516- 6065 Dec, Essential hypertension I10 ; Chronic kidney disease, stage 4 (severe) N18.4 ; 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 ; Type 2 diabetes mellitus with hyperglycemia E11.65 ; Chronic pain syndrome G89.4 ; Hyperlipidemia LDL goal <70 E78.5 ; GERD without esophagitis K21.9 and Neuropathy G62.9 [place] [address], [place] [address] Nov, [place] [address], [place] [address] 386[address] Oct, [place] [address], [place] [address] Oct, Pre-operative examination Z01.818 and Chronic kidney disease , stage 4 (severe) N18.4 [place] [address], [place] [address] Sep, [address] [address], [place] [address] 65[address] 07 Dec, 2017 Essential hypertension I10 [facility] [id number] [place] [address] 50475- 4807 05 Sep, 2017 Chronic pain syndrome G89.4 [facility] [id number] [place] [address] 07095- 4750 21 Aug, 2017 Type 2 diabetes mellitus with hyperglycemia E11.65 ; 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 ; Essential hypertension I10 ; Chronic kidney disease, stage 4 (severe) N18.4 ; Chronic pain syndrome G89.4 ; Hyperlipidemia LDL goal <70 E78.5 ; GERD without esophagitis K21.9 ; Neuropathy G62.9 and Vertigo R42 [facility] [id number] [place] [address] 65873- 8313 15 Aug, 2017 [place] [id number] [place] [address] 00246- 5635 10 Aug, 2017 [place] [address] [address] Aug, Chronic pain syndrome G89.4 [facility] [id number] [place] [address] 71798- 5046 Jul, Chronic pain syndrome G89.4 [facility] [id number] [place] [address] 55667- 1182 25 Jun, 2017 Type 2 diabetes mellitus with hyperglycemia E11.65 [facility] [id number] [place] [address] 84564- 8497 Jun, Preoperative examination Z01.818 [facility] [id number] [place] [address] 52382- 9055 12 Jun, 2017 Chronic pain syndrome G89.4 [facility] [id number] [place] [address] 66901- 6265 14 May, 2017 Type 2 diabetes mellitus with hyperglycemia E11.65 [facility] [id number] [place] [address] 26487- 6050 May, Chronic pain syndrome G89.4 [facility] [id number] [address] Apr, Type 2 diabetes mellitus with hyperglycemia [...] M16.11 and Pain in right knee M25.561 [place] [id number] [place] [address] 64258- 3706 Apr, Type 2 diabetes mellitus with hyperglycemia E11.65 [place] [id number] [place] [address] 79188- 4969 Apr, Chronic pain syndrome G89.4 [id number] [place] [address] 75250- 7068 Apr, 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 [place] [id number] [place] [address] 31506- 5778 Mar, Type 2 diabetes mellitus with hyperglycemia E11.65 ; 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 ; Essential hypertension I10 ; Malignant neoplasm of upper-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 C50.412 ; Neuropathy G62.9 ; Chronic kidney disease, stage 4 (severe) N18.4 ; Chronic pain syndrome G89.4 ; Hyperlipidemia LDL goal <70 E78.5 ; GERD without esophagitis K21.9 ; Arthritis of right hip M16.11 and Pain in right knee M25.561 [address] [address] [place] [address] 38350- 7084 February, Chronic pain syndrome G89.4 [facility] [address] [place] [address] [phone] February, Dental caries K02.9 [facility] [id number] [place] [address] 81995- 1615 Jan, Type 2 diabetes mellitus with hyperglycemia E11.65 [place] [id number] [place] [address] 92804- 6025 Jan, Type 2 diabetes mellitus with hyperglycemia E11.65 ; 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 ; Essential hypertension I10 ; Malignant neoplasm of upper-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 C50.412 ; Neuropathy G62.9 ; Chronic kidney disease, stage 4 (severe) N18.4 ; Chronic pain syndrome G89.4 ; Hyperlipidemia LDL goal <70 E78.5 and GERD without esophagitis K21.9 [place] [id number] [place] [address] 76399- 4675 Jan, Type 2 diabetes mellitus with hyperglycemia E11.65 [place] [id number] [place] [address] 65352- 9343 Dec, Chronic pain syndrome G89.4 [place] [id number] [place] [address] 90420- 7408 Nov, Type 2 diabetes mellitus with hyperglycemia E11.65 [place] [id number] [place] [address] 01866- 9860 Nov, Type 2 diabetes mellitus with hyperglycemia E11.65 [place] [id number] [place] [address] 60592- 3016 Nov, [place] [id number] [place] [address] 06552- 0967 Nov, Chronic pain syndrome G89.4 [facility] [address] [place] [address] [phone] Nov, Dental caries K02.9 [facility] [id number] [place] [address] 58454- 2718 Oct, Encounter for immunization Z23 ; Type 2 diabetes mellitus with hyperglycemia E11.65 ; Chronic kidney disease, stage 4 (severe) N18.4 ; 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 ; Essential hypertension I10 ; Neuropathy G62.9 ; Malignant neoplasm of upper-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 C50.412 ; Chronic pain syndrome G89.4 and Tooth infection K04.7 [facility] [address] [place] [address] 25288- 9986 Oct, Type 2 diabetes mellitus with hyperglycemia E11.65 [facility] [id number] [place] [address] 17863- 2584 Sep, [facility] [id number] [place] [address] 74851- 0646 Sep, Chronic kidney disease, stage 4 (severe) N18.4 [facility] [id number] [place] [address] 18327- 6138 Aug, [place] [id number] [place] [address] 00301- 6066 Aug, Type 2 diabetes mellitus with hyperglycemia E11.65 [facility] [id number] [place] [address] [phone] Aug, Dental examination Z01.20 [facility] [id number] [place] [address] 70407- 4133 Jul, Chronic kidney disease, stage 4 (severe) N18.4 [facility] [id number] [place] [address] 09300- 7792 Jul, [address] [address] [place] [address] 28250- 7365 Jul, Type 2 diabetes mellitus with hyperglycemia E11.65 ; Chronic kidney disease, stage 4 (severe) N18.4 ; 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 ; Essential hypertension I10 ; Neuropathy G62.9 and Malignant neoplasm of upper-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 C50.412 [facility] [id number] [place] [address] 41111- 7658 Jun, [facility] [id number] [place] [address] 85914- 9095 May, [facility] [id number] [place] [address] 03792- 6105 Apr, [facility] [address] [place] [address] 79622- 9700 Apr, Type 2 diabetes mellitus with hyperglycemia E11.65 and Chronic kidney disease, stage 4 (severe) N18.4 [facility] [id number] [place] [address] 23836- 4819 Apr, Type 2 diabetes mellitus with hyperglycemia E11.65 [facility] [id number] [place] [address] 74465- 0752 Mar, [facility] [id number] [place] [address] 04769- 8233 Mar, Type 2 diabetes mellitus with hyperglycemia E11.65 ; 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 ; Neuropathy G62.9 and Foot ulcer, left, limited to breakdown of skin L97.521 [facility] [id number] [place] [address] [phone] February, Dental examination Z01.20 [facility] [id number] [place] [address] 81930 -8471 February, Open toe wound, initial encounter S91.109A [address] [id number] [place] [address] 74351- 5572 February, [facility] [address] [place] [address] 96854- 5030 February, [facility] [id number] [place] [address] 96064- 4049 February, Hyperkalemia E87.5 [facility] [id number] [place] [address] 34028- 2592 February, Hyperkalemia E87.5 [facility] [address] [place] [address] 13532- 7931 February, Hyperkalemia E87.5 [facility] [id number] [place] [address] 46205- 4492 Jan, [facility] [address], [place] [address]- 5787 Dec, [facility] [id number] [place] [address] 16847- 8807 Dec, [facility] [address] [place] [address] 85214- 4807 Dec, Type 2 diabetes mellitus with hyperglycemia E11.65 ; 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 ; Essential hypertension I10 ; Malignant neoplasm of upper-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 C50.412 ; Neuropathy G62.9 and Dental caries on smooth surface penetrating into pulp K02.63 [address] [address] [place] [address] 43232- 0733 Dec, [address] [address] [place] [address] 48590- 3845 Nov, [facility] [address] [place] [address] 01584- 6175 Nov, [facility] [id number] [place] [address] 68247- 4435 Oct, Onychocryptosis L60.0 [address] [address] [place] [address] 38142- 3448 Oct, [facility] [address] [place] [address] 61634- 0218 Sep, Type 2 diabetes mellitus with hyperglycemia E11.65 ; 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 ; Essential hypertension I10 ; Malignant neoplasm of upper-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 C50.412 and Neuropathy G62.9 [facility] [id number] [place] [address] 89389- 5275 Sep, [facility] [address] [place] [address] 81578- 2716 Aug, Onychocryptosis L60.0 and Onychomycosis B35.1 [place] [address] [address] 1752 Aug, [facility] [address], [place] [address]- 0657 Aug, [facility] [address], [place] [address]- 4055 Jul, Pneumonia of right middle lobe due to infectious organism J18.9 [facility] [address], [place] [address]- 5260 Jul, [facility] [address], [place] [address]- 5491 Jul, [facility] [address] [place] [address] 81808- 8680 Jul, [facility] [address], [place] [address]- 1384 Jun, Diabetes mellitus 250.00 ; DM w/o complication type II, uncontrolled 250.02 ; Breast cancer, left 174.9 ; Personal history of antineoplastic chemotherapy V87.41 ; Back pain 724.5 ; Hip pain 719.45 and Ingrown left greater toenail 703.0 [address] [address], [place] [address]- 8906 Apr, Diabetes mellitus 250.00 ; Breast cancer, left 174.9 ; Personal history of antineoplastic chemotherapy V87.41 ; Back pain 724.5 and Hip pain 719.45 [facility] [address], [place] [address]- 7965 Apr, [facility] [address] [address]- 9948 Mar, Diabetes mellitus 250.00 ; Breast cancer, left 174.9 ; Personal history of antineoplastic chemotherapy V87.41 ; Back pain 724.5 and Hip pain 719.45 [address] [address], [place] [address]- 8702 Mar, DM w/o complication type II, uncontrolled 250.02 ; Hypertension 401.9 and Breast cancer, left 174.9 IMMUNIZATIONS No Known Immunizations SOCIAL HISTORY Never Assessed REASON FOR VISIT 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, 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 Tramadol refilled, KTRACS appropriate, due today , ameritox and contract, needs novolog and metoprolol PLAN OF CARE Activity Details Follow Up regular follow up Reason: VITAL SIGNS Height 68 in 2017-10-24 Weight 215.0 lbs 2017-10-24 Temperature 98.6 degrees Fahrenheit 2017-10-24 Heart Rate 80 bpm 2017-10-24 Respiratory Rate 20 2017-10-24 BMI 32.69 kg/m2 2017-10-24 Blood pressure systolic 124 mmHg 2017-10-24 Blood pressure diastolic 68 mmHg 2017-10-24 MEDICATIONS Medication Instructions Dosage Frequency Start Date End Date Duration Status Acetaminophen 500 MG Orally every 6 hrs 2 capsules as needed 6h Active Meclizine HCl 25 MG Orally Once a day 1-2 tablet as needed 24h Aug, 30 day(s) Not-Taking Lisinopril 40 mg Orally Once a day 1 tablet 24h 30 Active Folic Acid 400 MCG Orally Once a day 1 tablet 24h Active Pen [place] 1/2" 29G X 12MM subcutaneously 5 times per day as directed Active Magnesium Oxide 400 MG Orally 2 times a day 1 capsule 12h Active Amlodipine Besylate 5 mg Orally Once a day 1 tablet 24h Active Vitamin D3 5000 UNIT Orally Once a day 24h Active Gabapentin 300 MG Orally 2 times a day 1 capsule 12h 30 Active FreeStyle Lite Test - In Vitro 4 times a day TEST FOUR TIMES A DAY BEFORE MEALS AND AT BEDTIME 6h Active Atorvastatin Calcium 10 mg Orally Once a day 1 tablet 24h Active Hydrochlorothiazide 25 MG Orally Once a day 1 tablet 24h 30 Active Lofibra 134 MG Orally 1 and 3 TAKE ONE CAPSULE BY MOUTH ONCE DAILY WITH A MEAL 30 Active NovoLog Flexpen 100 unit/ml Subcutaneous 3 times daily with meals, per sliding scale 12 units 30 days Active Tramadol HCl 50 mg Orally 2 times a day prn 1 tablet as needed Active Levemir FlexTouch 100 units/ml Subcutaneous twice a day 30 units 12h 31 Active Roller Walker - rolling walker with seat Active Aspir-81 81 MG Orally Once a day 1 tablet 24h Active Pantoprazole Sodium 40 mg Orally Once a day 1 tablet 24h 30 Active Letrozole 2.5 MG Orally Once a day 1 tablet 24h Active Metoprolol Tartrate 25 MG Orally Twice a day 0.5 tablet with food 12h Sep, 30 day(s) Active Fish Oil 1000 MG Orally three times a day 1 capsule 8h Active RESULTS No Results PROCEDURES No Known procedures INSTRUCTIONS MEDICATIONS ADMINISTERED No Known Medications MEDICAL (GENERAL) HISTORY Type Description Date Medical History type II diabetes Medical History hypertension Medical History breast cancer- stage 3. Medical History Received chemotherapy every 3 weeks at [facility] under Dr Billingsley - Chemotherapy completed/now taking [...]
--- OUTSIDE RECORDS SUMMARY | 2018-07-29 06:28 | XMS REPORT ---
Author Author MTAEO BAKER Organization [facility] Address [address] [place] [address] Care Team Providers Care Associate Professor Of Physics Name Role Phone MATEO BAKER Unavailable PROBLEMS Type Condition ICD9-CM Code YIK46-NB Code Onset Dates Condition Status SNOMED Code Problem [facility] current use of insulin Z79.4 Active 220018948 Problem Malignant neoplasm of upper-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 C50.412 Active 194547485 Problem Type 2 diabetes mellitus with hyperglycemia E11.65 Active 315204298444797 Problem Chronic kidney disease, stage 4 (severe) N18.4 Active 186495609 Problem Hyperkalemia E87.5 Active 03395785 Problem Essential hypertension I10 Active 44334568 Problem Neuropathy G62.9 Active 369534869 Problem Pre-operative examination Z01.818 Active 976086071 Problem 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 Active 920573161 Problem Hyperlipidemia LDL goal <70 E78.5 Active 78566991 Problem Chronic pain syndrome G89.4 Active 305465299 Problem Arthritis of right hip M16.11 Active 7942350768279149 Problem GERD without esophagitis K21.9 Active 972910346 ALLERGIES Substance Reaction Event Type Date Status Codeine Sulfate Unknown Drug Allergy Jun, Active ENCOUNTERS Encounter Location Date Diagnosis [facility] [id number] [address] February, [facility] [id number], [place] [address] Jan, Type 2 diabetes mellitus with hyperglycemia E11.65 [facility] [id number] [place] [address] 78157- 7412 Dec, Type 2 diabetes mellitus with hyperglycemia E11.65 [facility] [id number], [place] [address] 277[address] Dec, Type 2 diabetes mellitus with hyperglycemia E11.65 [facility] [id number] [address] 1646 Dec, Type 2 diabetes mellitus with hyperglycemia E11.65 [facility] [id number] [place] [address] 16307- 4673 Dec, Essential hypertension I10 ; Chronic kidney disease, stage 4 (severe) N18.4 ; [facility] current use of insulin Z79.4 ; Type 2 diabetes mellitus with hyperglycemia E11.65 ; Chronic pain syndrome G89.4 ; Hyperlipidemia LDL goal <70 E78.5 ; GERD without esophagitis K21.9 and Neuropathy G62.9 [facility] [id number] [place] [address] 89552- 8400 Nov, [facility] [id number] [place] [address] 33459- 7321 Oct, [facility] [id number] [place] [address] 63392- 3290 Oct, Pre-operative examination Z01.818 and Chronic kidney disease , stage 4 (severe) N18.4 [facility] [id number] [place] [address] 11100- 0051 Sep, [facility] [id number] [place] [address] 41633- 7756 Sep, Essential hypertension I10 [facility] [id number] [place] [address] 93057- 2210 Sep, Chronic pain syndrome G89.4 [facility] [id number] [place] [address] 69761- 6734 Aug, Type 2 diabetes mellitus with hyperglycemia E11.65 ; [facility] current use of insulin Z79.4 ; Essential hypertension I10 ; Chronic kidney disease, stage 4 (severe) N18.4 ; Chronic pain syndrome G89.4 ; Hyperlipidemia LDL goal <70 E78.5 ; GERD without esophagitis K21.9 ; Neuropathy G62.9 and Vertigo R42 [facility] [address] [address] 15 Aug, 2017 [facility] [id number] [place] [address] 25113- 6767 Aug, [facility] [id number] [place] [address] 40039- 9273 Aug, Chronic pain syndrome G89.4 [facility] [id number] [place] [address] 73879- 8951 Jul, Chronic pain syndrome G89.4 [facility] [id number] [place] [address] 42178- 2155 Jun, Type 2 diabetes mellitus with hyperglycemia E11.65 [facility] [id number] [place] [address] 35639- 6768 Jun, Preoperative examination Z01.818 [id number] [place] [address] 13035- 2431 Jun, Chronic pain syndrome G89.4 [facility] [id number] [place] [address] 68943- 9230 May, Type 2 diabetes mellitus with hyperglycemia E11.65 [facility] [id number] [place] [address] 87896- 8146 May, Chronic pain syndrome G89.4 [facility] [id number] [place] [address] 21726- 1268 Apr, Type 2 diabetes mellitus with hyperglycemia E11.65 ; 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 ; Essential hypertension I10 ; Malignant neoplasm of upper-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 C50.412 ; Neuropathy G62.9 ; Chronic kidney disease, stage 4 (severe) N18.4 ; Chronic pain syndrome G89.4 ; Hyperlipidemia LDL goal <70 E78.5 ; GERD without esophagitis K21.9 ; Arthritis of right hip M16.11 and Pain in right knee M25.561 [id number] [place] [address] 31428- 0696 Apr, Type 2 diabetes mellitus with hyperglycemia E11.65 [facility] [address] [address] 6370 Apr, Chronic pain syndrome G89.4 [facility] [id number] [place] [address] 96748- 8480 Apr, 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 [facility] [id number] [place] [address] 79202- 5462 Mar, Type 2 diabetes mellitus with hyperglycemia E11.65 ; [facility] current use of insulin Z79.4 ; Essential hypertension I10 ; Malignant neoplasm of upper-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 C50.412 ; Neuropathy G62.9 ; Chronic kidney disease, stage 4 (severe) N18.4 ; Chronic pain syndrome G89.4 ; Hyperlipidemia LDL goal <70 E78.5 ; GERD without esophagitis K21.9 ; Arthritis of right hip M16.11 and Pain in right knee M25.561 [facility] [facility] [id number] [place] [address] 02634- 3621 February, Chronic pain syndrome G89.4 [facility] [id number] [place] [address] [id number] February, Dental caries K02.9 [facility] [id number] [place] [address] 91098- 4019 Jan, Type 2 diabetes mellitus with hyperglycemia E11.65 [facility] [id number] [place] [address] 63211- 8086 Jan, Type 2 diabetes mellitus with hyperglycemia E11.65 ; [facility] current use of insulin Z79.4 ; Essential hypertension I10 ; Malignant neoplasm of upper-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 C50.412 ; Neuropathy G62.9 ; Chronic kidney disease, stage 4 (severe) N18.4 ; Chronic pain syndrome G89.4 ; Hyperlipidemia LDL goal <70 E78.5 and GERD without esophagitis K21.9 [facility] [place] [address] [place] [address] 92464- 4821 Jan, Type 2 diabetes mellitus with hyperglycemia E11.65 [facility] [address] [address] 7412 Dec, Chronic pain syndrome G89.4 [facility] [address] [place] [address] 81753- 9441 Nov, Type 2 diabetes mellitus with hyperglycemia E11.65 [facility] [id number] [place] [address] 75913- 5786 Nov, Type 2 diabetes mellitus with hyperglycemia E11.65 [facility] [address] [place] [address] 31552- 1633 Nov, [facility] [id number] [place] [address] 06432- 2722 Nov, Chronic pain syndrome G89.4 [facility] [address] [place] [address] [id number] Nov, Dental caries K02.9 [facility] [place] [address] [place] [address] 35018- 5131 Oct, Type 2 diabetes mellitus with hyperglycemia E11.65 ; Encounter for immunization Z23 ; Chronic kidney disease, stage 4 (severe) N18.4 ; [facility] current use of insulin Z79.4 ; Essential hypertension I10 ; Neuropathy G62.9 ; Malignant neoplasm of upper-outer quadrant of left female breast C50.412 ; Chronic pain syndrome G89.4 and Tooth infection K04.7 [facility] [address] [address]- 0902 Oct, Type 2 diabetes mellitus with hyperglycemia E11.65 [facility] [address] [place] [address] 15573- 5165 Sep, [facility] [id number] [place] [address] 78520- 1707 Sep, Chronic kidney disease, stage 4 (severe) N18.4 [facility] [address] [place] [address] 55678- 8562 Aug, [facility] [address], [place] [address]- 1130 Aug, Type 2 diabetes mellitus with hyperglycemia E11.65 [facility] [id number] [id number] Aug, Dental examination Z01.20 [facility] [address], [place] [address]- 9396 Jul, Chronic kidney disease, stage 4 (severe) N18.4 [facility] [address] [place] [address] 43827- 7408 Jul, [facility] [id number] [place] [address] 70920- 9494 Jul, Type 2 diabetes mellitus with hyperglycemia E11.65 ; Chronic kidney disease, stage 4 (severe) N18.4 ; [facility] current use of insulin Z79.4 ; Essential hypertension I10 ; Neuropathy G62.9 and Malignant neoplasm of upper-outer quadrant of left female breast C50.412 [facility] [address], [place] [address]- 1866 Jun, [facility] [id number] [place] [address] 94248- 2753 May, [facility] [address], [place] [address]- 8781 Apr, [facility] [address], [place] [address]- 3513 Apr, Type 2 diabetes mellitus with hyperglycemia E11.65 and Chronic kidney disease, stage 4 (severe) N18.4 [facility] [address] [address]- 5123 Apr, Type 2 diabetes mellitus with hyperglycemia E11.65 [facility] [address], [place] [address]- 0022 Mar, [facility] [id number] [place] [address] 33992- 1296 Mar, Type 2 diabetes mellitus with hyperglycemia E11.65 ; [facility] current use of insulin Z79.4 ; Neuropathy G62.9 and Foot ulcer, left, limited to breakdown of skin L97.521 [facility] [address] [address] February, Dental examination Z01.20 [facility] [id number] [place] [address] 21039 -3729 February, Open toe wound, initial encounter S91.109A [facility] [id number] [place] [address] 92327- 4801 February, [facility] [id number] [place] [address] 82776- 1938 February, [facility] [id number] [place] [address] 04338- 7411 February, Hyperkalemia E87.5 [facility] [id number] [place] [address] 02454- 9240 February, Hyperkalemia E87.5 [facility] [id number] [place] [address] 72597- 1722 February, Hyperkalemia E87.5 [facility] [id number] [place] [address] 93980- 7236 Jan, [facility] [id number] [place] [address] 05219- 5343 Dec, [facility] [address] [place] [address] 34290- 8552 Dec, [facility] [id number] [place] [address] 02502- 4446 Dec, Type 2 diabetes mellitus with hyperglycemia E11.65 ; 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 ; Essential hypertension I10 ; Malignant neoplasm of upper-outer quadrant of left female breast C50.412 ; Neuropathy G62.9 and Dental caries on smooth surface penetrating into pulp K02.63 [facility] [id number] [place] [address] 95063- 0128 Dec, [facility] [id number] [place] [address] 04541- 8825 Nov, [facility] [id number] [place] [address] 67064- 0927 Nov, [facility] [address] 19148- 2820 Oct, Onychocryptosis L60.0 [facility] [facility] [id number] [place] [address] 74953- 0574 Oct, [facility] [id number] [place] [address] 21040- 6817 Sep, Type 2 diabetes mellitus with hyperglycemia E11.65 ; 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 ; Essential hypertension I10 ; Malignant neoplasm of upper-outer quadrant of left female breast C50.412 and Neuropathy G62.9 [facility] [id number] [place] [address] 54969- 7736 Sep, [facility] [id number] [place] [address] 42350- 0393 Aug, Onychocryptosis L60.0 and Onychomycosis B35.1 [facility] [id number] [place] [address] 09313- 3999 Aug, [facility] [id number] [place] [address] 31799- 7905 Aug, [facility] [id number] [place] [address] 96327- 2230 Jul, Pneumonia of right middle lobe due to infectious organism J18.9 [facility] [id number] [place] [address] 39042- 8625 Jul, [facility] [id number] [place] [address] 23128- 6512 Jul, [facility] [address] [place] [address] 59896- 2885 Jul, [facility] [id number] [place] [address] 07678- 1656 Jun, Diabetes mellitus 250.00 ; DM w/o complication type II, uncontrolled 250.02 ; Breast cancer, left 174.9 ; Personal history of antineoplastic chemotherapy V87.41 ; Back pain 724.5 ; Hip pain 719.45 and Ingrown left greater toenail 703.0 [place] [facility] [id number] [place] [address] 569385- 6905 Apr, Diabetes mellitus 250.00 ; Breast cancer, left 174.9 ; Personal history of antineoplastic chemotherapy V87.41 ; Back pain 724.5 and Hip pain 719.45 [place] [id number] [place] [address] 91530- 7225 Apr, [facility] [id number] [place] [address] 82484- 5181 Mar, Diabetes mellitus 250.00 ; Breast cancer, left 174.9 ; Personal history of antineoplastic chemotherapy V87.41 ; Back pain 724.5 and Hip pain 719.45 [place] [facility] [id number] [place] [address] 34713- 6674 Mar, DM w/o complication type II, uncontrolled 250.02 ; Hypertension 401.9 and Breast cancer, left 174.9 IMMUNIZATIONS No Known Immunizations SOCIAL HISTORY Never Assessed REASON FOR VISIT Surgery Clearance ---Jenaro PLAN OF CARE Activity Details Follow Up with Mari Reason: VITAL SIGNS Height 68 in 2017-07-12 Weight 208 lbs 2017-07-12 Temperature 98.2 degrees Fahrenheit 2017-07-12 Heart Rate 70 bpm 2017-07-12 Respiratory Rate 20 2017-07-12 BMI 31.62 kg/m2 2017-07-12 Blood pressure systolic 122 mmHg 2017-07-12 Blood pressure diastolic 70 mmHg 2017-07-12 MEDICATIONS Medication Instructions Dosage Frequency Start Date End Date Duration Status Amlodipine Besylate 5 mg Orally Once a day 1 tablet 24h Active Magnesium Oxide 400 MG Orally 2 times a day 1 capsule 12h Active Pen Avawam /" 29G X 12MM subcutaneously 5 times per day as directed Active Gabapentin 300 MG Orally 2 times a day 1 capsule 12h 30 Active Vitamin D3 5000 UNIT Orally Once a day 24h Active Lisinopril 40 mg Orally Once a day 1 tablet 24h 30 Active Pantoprazole Sodium 40 mg Orally Once a day 1 tablet 24h 30 Active Metoprolol Succinate ER 25 MG Orally Once a day 1 tablet 24h 30 Active Roller Walker - rolling walker with seat Active Tramadol HCl 50 mg Orally 2 times a day prn 1 tablet as needed Active Hydrochlorothiazide 25 MG Orally Once a day 1 tablet 24h 30 Active Levemir FlexTouch 100 units/ml Subcutaneous twice a day 30 units 12h 31 Active NovoLog Flexpen 100 unit/ml Subcutaneous 3 times daily with meals, per sliding scale 12 units 30 days Active Aspir-81 81 MG Orally Once a day 1 tablet 24h Active Lofibra 134 MG TAKE ONE CAPSULE BY MOUTH ONCE DAILY WITH A MEAL 30 Active Atorvastatin Calcium 10 mg Orally Once a day 1 tablet 24h Active Folic Acid 400 MCG Orally Once a day 1 tablet 24h Active Fish Oil 1000 MG Orally Twice a day 1 capsule 12h Active Letrozole 2.5 MG Orally Once a day 1 tablet 24h Active Acetaminophen 500 MG Orally every 6 hrs 2 capsules as needed 6h Active FreeStyle Lite Test - TEST FOUR TIMES A DAY BEFORE MEALS AND AT BEDTIME 25 Active RESULTS No Results PROCEDURES No Known procedures INSTRUCTIONS MEDICATIONS ADMINISTERED No Known Medications MEDICAL (GENERAL) HISTORY Type Description Date Medical History type II diabetes Medical History hypertension Medical History breast cancer- stage 3. Medical History Received chemotherapy every 3 weeks at [facility] under Dr Billingsley - Chemotherapy completed/now taking [...]
--- OUTSIDE RECORDS SUMMARY | 2018-07-29 06:29 | XMS REPORT ---
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 845145831 Problem Malignant neoplasm of upper-outer quadrant of left female breast C50.412 Active 324397558 Problem Type 2 diabetes mellitus with hyperglycemia E11.65 Active 409959028068829 Problem Chronic kidney disease, stage 4 (severe) N18.4 Active 901592504 Problem Hyperkalemia E87.5 Active 73735093 Problem Essential hypertension I10 Active 18711174 Problem Neuropathy G62.9 Active 060166188 Problem Pre-operative examination Z01.818 Active 894164560 Problem 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 Active 520754588 Problem Hyperlipidemia LDL goal <70 E78.5 Active 95760220 Problem Chronic pain syndrome G89.4 Active 522589625 Problem Arthritis of right hip M16.11 Active 8302669515202488 Problem GERD without esophagitis K21.9 Active 133878501 ALLERGIES No Information ENCOUNTERS Encounter Location Date Diagnosis [id number] [address] February, [facility] [id number] [place] [address] 54948- 3581 Jan, Type 2 diabetes mellitus with hyperglycemia E11.65 [facility] [id number] [place] [address] 04228- 5290 Dec, Type 2 diabetes mellitus with hyperglycemia E11.65 [facility] [id number], [place] [address] Dec, Type 2 diabetes mellitus with hyperglycemia E11.65 [facility] [address] [place] [address] 53010- 9946 Dec, Type 2 diabetes mellitus with hyperglycemia E11.65 [facility] [id number] [place] [address] 37265- 8531 Dec, Essential hypertension I10 ; Chronic kidney disease, stage 4 (severe) N18.4 ; 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 ; Type 2 diabetes mellitus with hyperglycemia E11.65 ; Chronic pain syndrome G89.4 ; Hyperlipidemia LDL goal <70 E78.5 ; GERD without esophagitis K21.9 and Neuropathy G62.9 [facility] [id number] [place] [address] 10001- 2151 Nov, [facility] [facility] [id number] [place] [address] 89913- 9260 Oct, [address] [facility] [id number] [place] [address] 49059- 2073 Oct, Pre-operative examination Z01.818 and Chronic kidney disease , stage 4 (severe) N18.4 [facility] [id number] [place] [address] 50260- 1760 Sep, [facility] [id number] [place] [address] 28919- 4760 Sep, Essential hypertension I10 [facility] [facility] [id number] [place] [address] 87956- 0229 Sep, Chronic pain syndrome G89.4 [facility] [id number] [place] [address] 26868- 7692 Aug, Type 2 diabetes mellitus with hyperglycemia E11.65 ; 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 ; Essential hypertension I10 ; Chronic kidney disease, stage 4 (severe) N18.4 ; Chronic pain syndrome G89.4 ; Hyperlipidemia LDL goal <70 E78.5 ; GERD without esophagitis K21.9 ; Neuropathy G62.9 and Vertigo R42 [facility] [id number] [place] [address] 57555- 5033 15 Aug, 2017 [facility] [facility] [id number] [place] [address] 76790- 3135 Aug, [facility] [id number] [place] [address] 17052- 9648 Aug, Chronic pain syndrome G89.4 [facility] [id number] [place] [address] 51528- 1023 Jul, Chronic pain syndrome G89.4 [facility] [id number] [place] [address] 35815- 9182 Jun, Type 2 diabetes mellitus with hyperglycemia E11.65 [facility] [id number] [place] [address] 48970- 4300 Jun, Preoperative examination Z01.818 [facility] [id number] [place] [address] 68984- 3611 Jun, Chronic pain syndrome G89.4 [facility] [id number] [place] [address] 33143- 6054 May, Type 2 diabetes mellitus with hyperglycemia E11.65 [facility] [id number] [place] [address] 80013- 7070 May, Chronic pain syndrome G89.4 [facility] [id number] [place] [address] 20580- 4500 Apr, Type 2 diabetes mellitus with hyperglycemia E11.65 ; 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 ; Essential hypertension I10 ; Malignant neoplasm of upper-outer quadrant of left female breast C50.412 ; Neuropathy G62.9 ; Chronic kidney disease, stage 4 (severe) N18.4 ; Chronic pain syndrome G89.4 ; Hyperlipidemia LDL goal <70 E78.5 ; GERD without esophagitis K21.9 ; Arthritis of right hip M16.11 and Pain in right knee M25.561 [facility] [facility] [address] [place] [address] 12493- 8919 Apr, Type 2 diabetes mellitus with hyperglycemia E11.65 [facility] [address], [place] [address] 4352 Apr, Chronic pain syndrome G89.4 [facility] [id number] [place] [address] 07217- 8383 Apr, 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 [facility] [id number] [place] [address] 44763- 1334 Mar, Type 2 diabetes mellitus with hyperglycemia [...] Pain in right knee M25.561 [facility] [id number] [place] [address] 66137- 9938 February, Chronic pain syndrome G89.4 [facility] [id number] [place] [address] [id number] February, Dental caries K02.9 [facility] [facility] [id number] [place] [address] 02448- 8145 Jan, Type 2 diabetes mellitus with hyperglycemia E11.65 [facility] [id number] [place] [address] 86430- 0282 Jan, Type 2 diabetes mellitus with hyperglycemia E11.65 ; 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 ; Essential hypertension I10 ; Malignant neoplasm of upper-outer quadrant of left female breast C50.412 ; Neuropathy G62.9 ; Chronic kidney disease, stage 4 (severe) N18.4 ; Chronic pain syndrome G89.4 ; Hyperlipidemia LDL goal <70 E78.5 and GERD without esophagitis K21.9 [facility] [facility] [address] [place] [address] 55377- 9387 Jan, Type 2 diabetes mellitus with hyperglycemia E11.65 [facility] [address], [place] [address] 7613 Dec, Chronic pain syndrome G89.4 [facility] [address] [place] [address] 67160- 3478 Nov, Type 2 diabetes mellitus with hyperglycemia E11.65 [facility] [address] [place] [address] 63605- 4757 Nov, Type 2 diabetes mellitus with hyperglycemia E11.65 [facility] [id number] [place] [address] 48021- 2741 Nov, [place] [id number] [place] [address] 05906- 4012 Nov, Chronic pain syndrome G89.4 [facility] [id number] [place] [address] [id number] Nov, Dental caries K02.[address] [place] [address] 92870- 9177 Oct, Type 2 diabetes mellitus with hyperglycemia E11.65 ; Encounter for immunization Z23 ; Chronic kidney disease, stage 4 (severe) N18.4 ; 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 ; Essential hypertension I10 ; Neuropathy G62.9 ; Malignant neoplasm of upper-outer quadrant of left female breast C50.412 ; Chronic pain syndrome G89.4 and Tooth infection K04.7 [facility] [facility] [address] [place] [address] 60461- 1962 Oct, Type 2 diabetes mellitus with hyperglycemia E11.65 [facility] [address] [place] [address] 92706- 7510 Sep, [place] [id number] [place] [address] 11752- 5594 Sep, Chronic kidney disease, stage 4 (severe) N18.4 [place] [address] [place] [address] 07524- 3035 Aug, [place] [address], [place] [address] 0812 Aug, Type 2 diabetes mellitus with hyperglycemia E11.65 [facility] [address] [id number] Aug, Dental examination Z01.20 [facility] [address], [place] [address] 9595 Jul, Chronic kidney disease, stage 4 (severe) N18.4 [facility] [address], [place] [address]- 4716 Jul, [place] [id number] [place] [address] 60257- 4179 Jul, Type 2 diabetes mellitus with hyperglycemia E11.65 ; Chronic kidney disease, stage 4 (severe) N18.4 ; 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 ; Essential hypertension I10 ; Neuropathy G62.9 and Malignant neoplasm of upper-outer quadrant of left female breast C50.412 [facility] [address] [place] [address] 4510 Jun, [facility] [address] [place] [address] 33814- 0790 May, [facility] [address], [place] [address]- 0535 Apr, [facility] [address] [place] [address]- 5809 Apr, Type 2 diabetes mellitus with hyperglycemia E11.65 and Chronic kidney disease, stage 4 (severe) N18.4 [facility] [address], [place] [address]- 3859 Apr, Type 2 diabetes mellitus with hyperglycemia E11.65 [facility] [address], [place] [address]- 7560 Mar, [facility] [address], [place] [address]- 2767 Mar, Type 2 diabetes mellitus with hyperglycemia E11.65 ; 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 ; Neuropathy G62.9 and Foot ulcer, left, limited to breakdown of skin L97.521 [facility] [address] [id number] February, Dental examination Z01.20 [facility] [address], [place] [address] February, Open toe wound, initial encounter S91.109A [facility] [id number] [place] [address] 45391- 8744 February, [facility] [id number] [place] [address] 63872- 0334 February, [facility] [address] [place] [address] 47505- 0313 February, Hyperkalemia E87.5 [facility] [id number] [place] [address] 60510- 8472 February, Hyperkalemia E87.5 [facility] [address] [place] [address] 18438- 5867 February, Hyperkalemia E87.5 [facility] [address], [place] [address]- 9689 Jan, [facility] [address] [place] [address] 29822- 7949 Dec, [facility] [address] [address]- 6225 Dec, [facility] [address] [place] [address] 71167- 7288 Dec, Type 2 diabetes mellitus with hyperglycemia E11.65 ; 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 ; Essential hypertension I10 ; Malignant neoplasm of upper-outer quadrant of left female breast C50.412 ; Neuropathy G62.9 and Dental caries on smooth surface penetrating into pulp K02.63 [facility] [address], [place] [address]- 7760 Dec, [facility] [address] [place] [address] 60892- 6485 Nov, [facility] [id number] [place] [address] 14058- 4520 Nov, [facility] [id number] [place] [address] 94513- 3802 Oct, Onychocryptosis L60.0 [facility] [address] [place] [address] 47939- 5123 Oct, [facility] [facility] [id number] [place] [address] 31314- 2114 Sep, Type 2 diabetes mellitus with hyperglycemia E11.65 ; 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 ; Essential hypertension I10 ; Malignant neoplasm of upper-outer quadrant of left female breast C50.412 and Neuropathy G62.9 [place] [address] [place] [address] 56350- 9463 Sep, [place] [id number] [place] [address] 58610- 7649 Aug, Onychocryptosis L60.0 and Onychomycosis B35.1 [facility] [facility] [address], [place] [address]- 4524 Aug, [facility] [address] [place] [address] 56705- 9395 Aug, [facility] [address] [place] [address] 83234- 8859 Jul, Pneumonia of right middle lobe due to infectious organism J18.9 [facility] [address], [place] [address]- 5461 Jul, [place] [address] [place] [address] 36389- 8137 Jul, [place] [address] [place] [address] 27275- 0070 Jul, [place] [facility] [id number] [place] [address] 55639- 7818 Jun, Diabetes mellitus 250.00 ; DM w/o complication type II, uncontrolled 250.02 ; Breast cancer, left 174.9 ; Personal history of antineoplastic chemotherapy V87.41 ; Back pain 724.5 ; Hip pain 719.45 and Ingrown left greater toenail 703.0 [facility] [facility] [id number] [place] [address] 08162- 7176 Apr, Diabetes mellitus 250.00 ; Breast cancer, left 174.9 ; Personal history of antineoplastic chemotherapy V87.41 ; Back pain 724.5 and Hip pain 719.45 [id number] [place] [address] 84644- 1484 Apr, [address] [id number] [place] [address] 16284- 5097 Mar, Diabetes mellitus 250.00 ; Breast cancer, left 174.9 ; Personal history of antineoplastic chemotherapy V87.41 ; Back pain 724.5 and Hip pain 719.45 [address] [id number] [place] [address] 29822- 4867 Mar, DM w/o complication type II, uncontrolled 250.02 ; Hypertension 401.9 and Breast cancer, left 174.9 IMMUNIZATIONS No Known Immunizations SOCIAL HISTORY Never Assessed REASON FOR VISIT Controlled Med Refill PLAN OF CARE VITAL SIGNS MEDICATIONS Medication [...] History Received chemotherapy every 3 weeks at [facility] under Dr Billingsley - Chemotherapy completed/now [...]
--- OUTSIDE RECORDS SUMMARY | 2018-07-29 06:29 | XMS REPORT ---
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 767271481 Problem Malignant neoplasm of upper-outer quadrant of left female breast C50.412 Active 737505598 Problem Type 2 diabetes mellitus with hyperglycemia E11.65 Active 189533163708804 Problem Chronic kidney disease, stage 4 (severe) N18.4 Active 300167979 Problem Hyperkalemia E87.5 Active 91878342 Problem Essential hypertension I10 Active 52591932 Problem Neuropathy G62.9 Active 797038423 Problem Pre-operative examination Z01.818 Active 844901381 Problem 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 Active 827769012 Problem Hyperlipidemia LDL goal <70 E78.5 Active 88842757 Problem Chronic pain syndrome G89.4 Active 682763211 Problem Arthritis of right hip M16.11 Active [id number] Problem GERD without esophagitis K21.9 Active 810832311 ALLERGIES No Information ENCOUNTERS Encounter Location Date Diagnosis [facility] [id number] [address] February, Chronic kidney disease, stage 4 (severe) N18.4 [facility] [id number] [address] February, [facility] [id number] [place] [address] 70683- 3537 February, [facility] [id number] [address] Jan, Type 2 diabetes mellitus with hyperglycemia E11.65 [address] [place] [address] Dec, Type 2 diabetes mellitus with hyperglycemia E11.65 [place] [address] [address] Dec, Type 2 diabetes mellitus with hyperglycemia E11.65 [place] [address] [address] Dec, Type 2 diabetes mellitus with hyperglycemia E11.65 [place] [address] [address] Dec, Essential hypertension I10 ; Chronic kidney disease, stage 4 (severe) N18.4 ; penitentiary current use of insulin Z79.4 ; Type 2 diabetes mellitus with hyperglycemia E11.65 ; Chronic pain syndrome G89.4 ; Hyperlipidemia LDL goal <70 E78.5 ; GERD without esophagitis K21.9 and Neuropathy G62.9 [place] [address] [address] Nov, [place] [address] [address] Oct, [place] [address] [address] Oct, Pre-operative examination Z01.818 and Chronic kidney disease , stage 4 (severe) N18.4 [address] [address] [address] Sep, [place] [address] [address] Sep, Essential hypertension I10 [place] [address] [address] Sep, Chronic pain syndrome G89.4 [place] [address] [address] Aug, Type 2 diabetes mellitus with hyperglycemia E11.65 ; penitentiary current use of insulin Z79.4 ; Essential hypertension I10 ; Chronic kidney disease, stage 4 (severe) N18.4 ; Chronic pain syndrome G89.4 ; Hyperlipidemia LDL goal <70 E78.5 ; GERD without esophagitis K21.9 ; Neuropathy G62.9 and Vertigo R42 [place] [id number] [place] [address] 74170- 4008 15 Aug, 2017 [place] [address] [address] Aug, [place] [id number] [place] [address] 53601- 9928 Aug, Chronic pain syndrome G89.4 [place] [id number] [place] [address] 60669- 4352 Jul, Chronic pain syndrome G89.4 [place] [id number] [place] [address] 03141- 5562 Jun, Type 2 diabetes mellitus with hyperglycemia E11.65 [place] [id number] [place] [address] 54924- 5413 Jun, Preoperative examination Z01.[address] [address]- [address] Jun, Chronic pain syndrome G89.4 [place] [id number] [place] [address] 88739- 8897 May, Type 2 diabetes mellitus with hyperglycemia E11.65 [place] [id number] [place] [address] 37894- 9974 May, Chronic pain syndrome G89.4 [place] [id number] [place] [address] 98948- 0513 Apr, Type 2 diabetes mellitus with hyperglycemia [...] M16.11 and Pain in right knee M25.561 [place] [address] [place] [address] 21511- 2107 Apr, Type 2 diabetes mellitus with hyperglycemia E11.65 [address] [id number] [place] [address] 16809- 4171 Apr, Chronic pain syndrome G89.4 [place] [id number] [place] [address] 26737- 2868 Apr, 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 [id number] [place] [address] 42900- 4865 Mar, Type 2 diabetes mellitus with hyperglycemia [...] M16.11 and Pain in right knee M25.561 [place] [address] [place] [address] 03281- 2591 February, Chronic pain syndrome G89.4 [facility] [address] [place] [address] [id number] February, Dental caries K02.9 [place] [address] [place] [address] 88792- 9043 Jan, Type 2 diabetes mellitus with hyperglycemia E11.65 [address] [id number] [place] [address] 67912- 1947 Jan, Type 2 diabetes mellitus with hyperglycemia E11.65 ; penitentiary current use of insulin Z79.4 ; Essential hypertension I10 ; Malignant neoplasm of upper-outer quadrant of left female breast C50.412 ; Neuropathy G62.9 ; Chronic kidney disease, stage 4 (severe) N18.4 ; Chronic pain syndrome G89.4 ; Hyperlipidemia LDL goal <70 E78.5 and GERD without esophagitis K21.9 [facility] [address] [address] Jan, Type 2 diabetes mellitus with hyperglycemia E11.65 [place] [id number] [place] [address] 16035- 2359 Dec, Chronic pain syndrome G89.4 [place] [address] [address]78- 0902 Nov, Type 2 diabetes mellitus with hyperglycemia E11.65 [place] [address] 32567- 7296 Nov, Type 2 diabetes mellitus with hyperglycemia E11.65 [place] [address] 9[address]24- 3128 Nov, [place] [address] 23514- 3251 Nov, Chronic pain syndrome G89.4 [facility] [address] [id number] Nov, Dental caries K02.9 [address] [id number] [place] [address] 26807- 8755 Oct, Encounter for immunization Z23 ; Type 2 diabetes mellitus with hyperglycemia E11.65 ; Chronic kidney disease, stage 4 (severe) N18.4 ; 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 ; Essential hypertension I10 ; Neuropathy G62.9 ; Malignant neoplasm of upper-outer quadrant of left female breast C50.412 ; Chronic pain syndrome G89.4 and Tooth infection K04.7 [place] [id number] [place] [address] 57009- 7172 Oct, Type 2 diabetes mellitus with hyperglycemia E11.65 [place] [id number] [place] [address] 16360- 5141 Sep, [address] [place] [address] 09104- 5424 Sep, Chronic kidney disease, stage 4 (severe) N18.4 [facility] [id number] [place] [address] 90366- 2502 Aug, [facility] [id number] [place] [address] 43667- 6792 Aug, Type 2 diabetes mellitus with hyperglycemia E11.65 [facility] [id number] [place] [address] [id number] Aug, Dental examination Z01.20 [place] [address] 36757- 3356 Jul, Chronic kidney disease, stage 4 (severe) N18.4 [facility] [id number] [place] [address] 38077- 1681 Jul, [facility] [id number] [place] [address] 37160- 9370 Jul, Type 2 diabetes mellitus with hyperglycemia E11.65 ; Chronic kidney disease, stage 4 (severe) N18.4 ; penitentiary current use of insulin Z79.4 ; Essential hypertension I10 ; Neuropathy G62.9 and Malignant neoplasm of upper-outer quadrant of left female breast C50.412 [facility] [address] [place] [address] 26942- 7472 Jun, [facility] [id number] [place] [address] 33134- 2454 May, [facility] [id number] [place] [address] 89304- 3478 Apr, [facility] [id number] [place] [address] 78548- 8598 Apr, Type 2 diabetes mellitus with hyperglycemia E11.65 and Chronic kidney disease, stage 4 (severe) N18.4 [facility] [id number] [place] [address] 44004- 8968 Apr, Type 2 diabetes mellitus with hyperglycemia E11.65 [facility] [address], [place] [address]- 0100 Mar, [facility] [id number] [place] [address] 07252- 3170 Mar, Type 2 diabetes mellitus with hyperglycemia E11.65 ; 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 ; Neuropathy G62.9 and Foot ulcer, left, limited to breakdown of skin L97.521 [facility] [id number] [place] [address] [id number] February, Dental examination Z01.20 [facility] [id number] [place] [address] 62494 -5996 February, Open toe wound, initial encounter S91.109A [facility] [id number] [place] [address] 08776- 7236 February, [facility] [id number] [place] [address] 67758- 6119 February, [facility] [id number] [place] [address] 42684- 8820 February, Hyperkalemia E87.5 [facility] [id number] [place] [address] 26116- 4022 February, Hyperkalemia E87.5 [facility] [id number] [place] [address] 89108- 8400 February, Hyperkalemia E87.5 [facility] [address], [place] [address]- 3666 Jan, [facility] [id number] [place] [address] 00173- 4338 Dec, [facility] [address] [place] [address] 36048- 0740 Dec, [facility] [id number] [place] [address] 42662- 5866 Dec, Type 2 diabetes mellitus with hyperglycemia E11.65 ; penitentiary current use of insulin Z79.4 ; Essential hypertension I10 ; Malignant neoplasm of upper-outer quadrant of left female breast C50.412 ; Neuropathy G62.9 and Dental caries on smooth surface penetrating into pulp K02.63 [facility] [address] [place] [address] 37837- 9395 Dec, [facility] [id number] [place] [address] 73831- 3761 Nov, [place] [id number] [place] [address] 31948- 4802 Nov, [place] [id number] [place] [address] 55958- 6158 Oct, Onychocryptosis L60.0 [place] [id number] [place] [address] 74609- 3387 Oct, [place] [id number] [place] [address] 26322- 8364 Sep, Type 2 diabetes mellitus with hyperglycemia E11.65 ; 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 ; Essential hypertension I10 ; Malignant neoplasm of upper-outer quadrant of left female breast C50.412 and Neuropathy G62.9 [place] [address] [place] [address] 62362- 2808 Sep, [place] [id number] [place] [address] 26010- 8572 Aug, Onychocryptosis L60.0 and Onychomycosis B35.1 [place] [id number] [place] [address] 21122- 7551 Aug, [place] [id number] [place] [address] 85269- 2308 Aug, [facility] [address] [place] [address] 90243- 3004 Jul, Pneumonia of right middle lobe due to infectious organism J18.9 [place] [id number], [place] [address]- 2241 Jul, [place] [id number] [place] [address] 89151- 8726 Jul, [place] [address] [place] [address] 24564- 0696 Jul, [place] [id number] [place] [address] 51337- 9239 Jun, Diabetes mellitus 250.00 ; DM w/o complication type II, uncontrolled 250.02 ; Breast cancer, left 174.9 ; Personal history of antineoplastic chemotherapy V87.41 ; Back pain 724.5 ; Hip pain 719.45 and Ingrown left greater toenail 703.[address] [place] [address] 49364- 0882 Apr, Diabetes mellitus 250.00 ; Breast cancer, left 174.9 ; Personal history of antineoplastic chemotherapy V87.41 ; Back pain 724.5 and Hip pain 719.45 [address] [place] [id number] [place] [address] 28406- 0738 Apr, [place] [address] [place] [address] 29442- 7328 Mar, Diabetes mellitus 250.00 ; Breast cancer, left 174.9 ; Personal history of antineoplastic chemotherapy V87.41 ; Back pain 724.5 and Hip pain 719.[address] [place] [address] 27662- 4129 Mar, DM w/o complication type II, uncontrolled 250.02 ; Hypertension 401.9 and Breast cancer, left 174.9 IMMUNIZATIONS No Known Immunizations SOCIAL HISTORY Never Assessed REASON FOR VISIT Metoprolol note PLAN OF CARE VITAL SIGNS MEDICATIONS Medication Instructions Dosage Frequency Start Date End Date Duration Status Metoprolol Tartrate 25 MG Orally Twice a day 0.5 tablet with food 12h Sep, 30 day(s) Active RESULTS No Results PROCEDURES No Known procedures INSTRUCTIONS MEDICATIONS ADMINISTERED No Known Medications MEDICAL (GENERAL) HISTORY Type Description Date Medical History type II diabetes Medical History hypertension Medical History breast cancer- stage 3. Medical History Received chemotherapy every 3 weeks at [facility] under Dr Billingsley - Chemotherapy completed/now taking [...]
--- OUTSIDE RECORDS SUMMARY | 2018-07-29 06:30 | XMS REPORT ---
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 Name Role Phone BHAVANA QUINTERO Unavailable PROBLEMS Type Condition ICD9-CM Code CYZ48-HO Code Onset Dates Condition Status SNOMED Code Problem custodial current use of insulin Z79.4 Active 949549130 Problem Malignant neoplasm of upper-outer quadrant of left female breast C50.412 Active 758909979 Problem Type 2 diabetes mellitus with hyperglycemia E11.65 Active 821478833745879 Problem Chronic kidney disease, stage 4 (severe) N18.4 Active 101167242 Problem Hyperkalemia E87.5 Active 42454593 Problem Essential hypertension I10 Active 28445651 Problem Neuropathy G62.9 Active 275577174 Problem Pre-operative examination Z01.818 Active 239215232 Problem 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 Active 617966800 Problem Hyperlipidemia LDL goal <70 E78.5 Active 44373179 Problem Chronic pain syndrome G89.4 Active 384191022 Problem Arthritis of right hip M16.11 Active [id number] Problem GERD without esophagitis K21.9 Active 653689784 ALLERGIES No Information ENCOUNTERS Encounter Location Date Diagnosis [facility] [id number] [place] [address] 83271- 4687 Jul, [facility] [id number] [place] [address] 49467- 2858 Jun, [facility] [id number] [place] [address] 63813- 8798 May, Type 2 diabetes mellitus with hyperglycemia E11.65 [facility] [id number] [place] [address] 78262- 8571 May, [facility] [id number] [place] [address] 02062- 7013 May, Type 2 diabetes mellitus with hyperglycemia E11.65 [facility] [address], [place] [address] 3521 Apr, Type 2 diabetes mellitus with hyperglycemia E11.65 [facility] [address], [place] [address] 5050 Apr, Type 2 diabetes mellitus with hyperglycemia E11.65 [facility] [id number] [place] [address] 70801- 7758 Apr, [facility] [id number] [place] [address] 78279- 1422 Mar, [facility] [id number] [place] [address] 77604- 2324 Mar, Type 2 diabetes mellitus with hyperglycemia E11.65 ; Essential hypertension I10 ; Chronic kidney disease, stage 4 (severe) N18.4 and Neuropathy G62.9 [facility] [address] [address] 3398 Mar, Type 2 diabetes mellitus with hyperglycemia E11.65 [facility] [address] [address] 0008 February, Chronic kidney disease, stage 4 (severe) N18.4 [facility] [address] [address] 0004 February, [facility] [address] [address] 1081 February, [facility] [address] [address] 6082 Jan, Type 2 diabetes mellitus with hyperglycemia E11.65 [facility] [address] [address]874 Dec, Type 2 diabetes mellitus with hyperglycemia E11.65 [facility] [address], [place] [address] 1056 Dec, Type 2 diabetes mellitus with hyperglycemia E11.65 [facility] [id number] [place] [address] 47541- 5824 Dec, Type 2 diabetes mellitus with hyperglycemia E11.65 [facility] [id number] [place] [address] 02404- 3564 Dec, Essential hypertension I10 ; Chronic kidney disease, stage 4 (severe) N18.4 ; 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.4 ; Type 2 diabetes mellitus with hyperglycemia E11.65 ; Chronic pain syndrome G89.4 ; Hyperlipidemia LDL goal <70 E78.5 ; GERD without esophagitis K21.9 and Neuropathy G62.9 [facility] [id number] [place] [address] 09360- 6228 Nov, [facility] [id number] [place] [address] 94220- 6846 Oct, [facility] [id number] [place] [address] 36499- 8778 Oct, Pre-operative examination Z01.818 and Chronic kidney disease , stage 4 (severe) N18.4 [facility] [id number] [place] [address] 65768- 2149 Sep, [facility] [id number] [place] [address] 39410- 8815 Sep, Essential hypertension I10 [facility] [id number] [place] [address] 55245- 5840 Sep, Chronic pain syndrome G89.4 [facility] [id number] [place] [address] 44002- 1510 Aug, Type 2 diabetes mellitus with hyperglycemia E11.65 ; 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.4 ; Essential hypertension I10 ; Chronic kidney disease, stage 4 (severe) N18.4 ; Chronic pain syndrome G89.4 ; Hyperlipidemia LDL goal <70 E78.5 ; GERD without esophagitis K21.9 ; Neuropathy G62.9 and Vertigo R42 [facility] [id number] [address]- 1869 15 Aug, 2017 [facility] [id number] [place] [address] 66840- 0911 Aug, [facility] [id number] [place] [address] 27906- 7501 07 Aug, 2017 Chronic pain syndrome G89.4 [facility] [id number] [place] [address] 56410- 3436 Jul, Chronic pain syndrome G89.4 [facility] [id number] [place] [address] 00035- 5852 Jun, Type 2 diabetes mellitus with hyperglycemia E11.65 [facility] [id number] [place] [address] 05217- 6622 Jun, Preoperative examination Z01.818 [facility] [id number] [place] [address] 27796- 3113 Jun, Chronic pain syndrome G89.4 [facility] [id number] [place] [address] 69913- 3096 May, Type 2 diabetes mellitus with hyperglycemia E11.65 [facility] [id number] [place] [address] 02346- 9808 May, Chronic pain syndrome G89.4 [facility] [id number] [place] [address] 87667- 6788 Apr, Type 2 diabetes mellitus with hyperglycemia E11.65 ; 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.4 ; Essential hypertension I10 ; Malignant neoplasm of upper-outer quadrant of left female breast C50.412 ; Neuropathy G62.9 ; Chronic kidney disease, stage 4 (severe) N18.4 ; Chronic pain syndrome G89.4 ; Hyperlipidemia LDL goal <70 E78.5 ; GERD without esophagitis K21.9 ; Arthritis of right hip M16.11 and Pain in right knee M25.561 [facility] [id number] [place] [address] 32491- 5899 Apr, Type 2 diabetes mellitus with hyperglycemia E11.65 [facility] [id number] [place] [address] 85377- 4730 Apr, Chronic pain syndrome G89.4 [facility] [id number] [place] [address] 07263- 2230 Apr, 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 [facility] [id number] [place] [address] 58876- 6676 Mar, Type 2 diabetes mellitus with hyperglycemia [...] M16.11 and Pain in right knee M25.561 [facility] [id number] [place] [address] 84916- 7022 February, Chronic pain syndrome G89.4 [facility] [id number] [place] [address] [id number] February, Dental caries K02.9 [facility] [id number] [place] [address] 24025- 8332 Jan, Type 2 diabetes mellitus with hyperglycemia E11.65 [facility] [id number] [place] [address] 15251- 4541 Jan, Type 2 diabetes mellitus with hyperglycemia E11.65 ; custodial current use of insulin Z79.4 ; Essential hypertension I10 ; Malignant neoplasm of upper-outer quadrant of left female breast C50.412 ; Neuropathy G62.9 ; Chronic kidney disease, stage 4 (severe) N18.4 ; Chronic pain syndrome G89.4 ; Hyperlipidemia LDL goal <70 E78.5 and GERD without esophagitis K21.9 [facility] [id number] [place] [address] 68980- 1811 Jan, Type 2 diabetes mellitus with hyperglycemia E11.65 [facility] [address], [place] [address]- 3876 Dec, Chronic pain syndrome G89.4 [facility] [id number] [place] [address] 44924- 6175 Nov, Type 2 diabetes mellitus with hyperglycemia E11.65 [facility] [id number] [place] [address] 24595- 2411 Nov, Type 2 diabetes mellitus with hyperglycemia E11.65 [facility] [id number] [place] [address] 63227- 7699 Nov, [facility] [id number] [place] [address] 12489- 5736 Nov, Chronic pain syndrome G89.4 [facility] [id number] [place] [address] [id number] Nov, Dental caries K02.9 [facility] [id number] [place] [address] 09209- 6731 Oct, Type 2 diabetes mellitus with hyperglycemia E11.65 ; Encounter for immunization Z23 ; Chronic kidney disease, stage 4 (severe) N18.4 ; custodial current use of insulin Z79.4 ; Essential hypertension I10 ; Neuropathy G62.9 ; Malignant neoplasm of upper-outer quadrant of left female breast C50.412 ; Chronic pain syndrome G89.4 and Tooth infection K04.7 [facility] [address], [place] [address]- 9158 Oct, Type 2 diabetes mellitus with hyperglycemia E11.65 [facility] [address], [place] [address]- 8513 Sep, [facility] [id number] [place] [address] 75662- 0908 Sep, Chronic kidney disease, stage 4 (severe) N18.4 [facility] [id number] [place] [address] 77020- 3471 Aug, [facility] [id number], [place] [address]- 7029 Aug, Type 2 diabetes mellitus with hyperglycemia E11.65 [facility] [address] [id number] Aug, Dental examination Z01.20 [facility] [id number] [place] [address] 33167- 8481 Jul, Chronic kidney disease, stage 4 (severe) N18.4 [facility] [address], [place] [address]- 3580 Jul, [facility] [id number] [place] [address] 69473- 1514 Jul, Type 2 diabetes mellitus with hyperglycemia E11.65 ; Chronic kidney disease, stage 4 (severe) N18.4 ; 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.4 ; Essential hypertension I10 ; Neuropathy G62.9 and Malignant neoplasm of upper-outer quadrant of left female breast C50.412 [facility] [address], [place] [address]- 8303 Jun, [facility] [id number] [place] [address] 41708- 2348 May, [facility] [address], [place] [address]- 6013 Apr, [facility] [address], [place] [address]- 8729 Apr, Type 2 diabetes mellitus with hyperglycemia E11.65 and Chronic kidney disease, stage 4 (severe) N18.4 [facility] [address], [place] [address]- 4621 Apr, Type 2 diabetes mellitus with hyperglycemia E11.65 [facility] [address], [place] [address]- 1526 Mar, [facility] [address], [place] [address]- 3634 Mar, Type 2 diabetes mellitus with hyperglycemia E11.65 ; 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.4 ; Neuropathy G62.9 and Foot ulcer, left, limited to breakdown of skin L97.521 [facility] [address] [id number] February, Dental examination Z01.20 [facility] [id number] [place] [address] 77485 -5627 February, Open toe wound, initial encounter S91.109A [facility] [id number] [place] [address] 57532- 3708 February, [facility] [id number] [place] [address] 88116- 1909 February, [facility] [id number] [place] [address] 36736- 7269 February, Hyperkalemia E87.5 [facility] [id number] [place] [address] 48195- 6692 February, Hyperkalemia E87.5 [facility] [id number] [place] [address] 68422- 7778 February, Hyperkalemia E87.5 [facility] [id number] [place] [address] 71326- 1872 Jan, [facility] [id number] [place] [address] 28643- 1010 Dec, [facility] [id number] [place] [address] 68788- 2309 Dec, [facility] [id number] [place] [address] 71873- 6430 Dec, Type 2 diabetes mellitus with hyperglycemia E11.65 ; 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.4 ; Essential hypertension I10 ; Malignant neoplasm of upper-outer quadrant of left female breast C50.412 ; Neuropathy G62.9 and Dental caries on smooth surface penetrating into pulp K02.63 [facility] [address], [place] [address]- 2485 Dec, [facility] [id number] [place] [address] 84427- 7554 Nov, [facility] [id number] [place] [address] 70326- 9779 Nov, [facility] [id number] [place] [address] 47520- 4215 Oct, Onychocryptosis L60.0 [facility] [id number] [place] [address] 92512- 2906 Oct, [facility] [id number] [place] [address] 31045- 6226 Sep, Type 2 diabetes mellitus with hyperglycemia E11.65 ; 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.4 ; Essential hypertension I10 ; Malignant neoplasm of upper-outer quadrant of left female breast C50.412 and Neuropathy G62.9 [facility] [id number] [place] [address] 74016- 7073 Sep, [facility] [id number] [place] [address] 60589- 8412 Aug, Onychocryptosis L60.0 and Onychomycosis B35.1 [facility] [id number] [place] [address] 02440- 7894 Aug, [facility] [id number] [place] [address] 86107- 3217 Aug, [facility] [address] [place] [address] 15588- 9879 Jul, Pneumonia of right middle lobe due to infectious organism J18.9 [facility] [id number] [place] [address] 23578- 5521 Jul, [facility] [id number] [place] [address] 74100- 6413 Jul, [facility] [id number] [place] [address] 28450- 2091 Jul, [facility] [id number] [place] [address] [id number]- 1223 Jun, Diabetes mellitus 250.00 ; DM w/o complication type II, uncontrolled 250.02 ; Breast cancer, left 174.9 ; Personal history of antineoplastic chemotherapy V87.41 ; Back pain 724.5 ; Hip pain 719.45 and Ingrown left greater toenail 703.0 [facility] [id number] [place] [address] 63324- 1832 Apr, Diabetes mellitus 250.00 ; Breast cancer, left 174.9 ; Personal history of antineoplastic chemotherapy V87.41 ; Back pain 724.5 and Hip pain 719.45 [facility] [id number] [place] [address] 29789- 0844 Apr, [facility] [id number] [place] [address] 83333- 3595 Mar, Diabetes mellitus 250.00 ; Breast cancer, left 174.9 ; Personal history of antineoplastic chemotherapy V87.41 ; Back pain 724.5 and Hip pain 719.45 [facility] [address] [place] [address] 40683- 6810 Mar, DM w/o complication type II, uncontrolled 250.02 ; Hypertension 401.9 and Breast cancer, left 174.9 IMMUNIZATIONS No Known Immunizations SOCIAL HISTORY Never Assessed REASON FOR VISIT Refill request PLAN OF CARE VITAL SIGNS MEDICATIONS Medication Instructions Dosage Frequency Start Date End Date Duration Status Pantoprazole Sodium 40 MG TAKE ONE TABLET BY MOUTH ONCE DAILY 30 Active Gabapentin 300 MG TAKE ONE CAPSULE BY MOUTH TWICE DAILY 30 Active NovoLog Flexpen 100 UNIT/ML Subcutaneous 3 times daily with meals, per sliding scale 14 units Active RESULTS No Results PROCEDURES No Known procedures INSTRUCTIONS MEDICATIONS ADMINISTERED No Known Medications MEDICAL (GENERAL) HISTORY Type Description Date Medical History type II diabetes Medical History hypertension Medical History breast cancer- stage 3. Medical History Received chemotherapy every 3 weeks at [facility] under Dr Billingsley - Chemotherapy completed/now [...]
--- OUTSIDE RECORDS SUMMARY | 2018-07-29 06:30 | XMS REPORT ---
Author Author BHAVANA QUINTERO [facility] Address [address] [place] [address] Care Team Providers Care Material Requirements Worker Name Role Phone BHAVANA QUINTERO Unavailable PROBLEMS Type Condition ICD9-CM Code VVH60-HQ Code Onset Dates Condition Status SNOMED Code Problem assisted current use of insulin Z79.4 Active 345089051 Problem Malignant neoplasm of upper-outer quadrant of left female breast C50.412 Active 422846645 Problem Type 2 diabetes mellitus with hyperglycemia E11.65 Active 992753678388584 Problem Chronic kidney disease, stage 4 (severe) N18.4 Active 036259434 Problem Hyperkalemia E87.5 Active 31099774 Problem Essential hypertension I10 Active 02957072 Problem Neuropathy G62.9 Active 715614468 Problem Pre-operative examination Z01.818 Active 935043892 Problem 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 Active 278202945 Problem Hyperlipidemia LDL goal <70 E78.5 Active 68462651 Problem Chronic pain syndrome G89.4 Active 380977390 Problem Arthritis of right hip M16.11 Active [id number] Problem GERD without esophagitis K21.9 Active [id number] ALLERGIES No Information ENCOUNTERS Encounter Location Date Diagnosis [facility] [id number] [place] [address] 49530- 8996 Jul, [facility] [id number] [place] [address] 57807- 3527 Jun, [facility] [id number] [place] [address] 60896- 0947 May, Type 2 diabetes mellitus with hyperglycemia E11.65 [facility] [id number] [place] [address] 89208- 3028 May, [facility] [id number] [place] [address] 02555- 2826 May, Type 2 diabetes mellitus with hyperglycemia E11.65 [facility] [address] [address] 6357 Apr, Type 2 diabetes mellitus with hyperglycemia E11.65 [facility] [address] [address] 0932 Apr, Type 2 diabetes mellitus with hyperglycemia E11.65 [facility] [id number] [place] [address] 71409- 7136 Apr, [facility] [id number] [place] [address] 44286- 3642 Mar, [facility] [id number] [place] [address] 01545- 0151 Mar, Type 2 diabetes mellitus with hyperglycemia E11.65 ; Essential hypertension I10 ; Chronic kidney disease, stage 4 (severe) N18.4 and Neuropathy G62.9 [place] [facility] [address] [address] Mar, Type 2 diabetes mellitus with hyperglycemia E11.65 [facility] [address] [address] 9680 February, Chronic kidney disease, stage 4 (severe) N18.4 [facility] [address] [address] 4[address] February, [facility] [address] [address] 8520 February, [facility] [address] [address] 3656 Jan, Type 2 diabetes mellitus with hyperglycemia E11.65 [facility] [address] [address] Dec, Type 2 diabetes mellitus with hyperglycemia E11.65 [facility] [address] [address] 7379 Dec, Type 2 diabetes mellitus with hyperglycemia E11.65 [facility] [address] [place] [address] 83955- 3251 Dec, Type 2 diabetes mellitus with hyperglycemia E11.65 [facility] [id number] [place] [address] 37942- 4886 Dec, Essential hypertension I10 ; Chronic kidney disease, stage 4 (severe) N18.4 ; 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 Z79.4 ; Type 2 diabetes mellitus with hyperglycemia E11.65 ; Chronic pain syndrome G89.4 ; Hyperlipidemia LDL goal <70 E78.5 ; GERD without esophagitis K21.9 and Neuropathy G62.9 [facility] [facility] [id number] [place] [address] 22977- 3007 Nov, [facility] [id number] [place] [address] 98196- 2804 Oct, [facility] [id number] [place] [address] 05131- 7148 Oct, Pre-operative examination Z01.818 and Chronic kidney disease , stage 4 (severe) N18.4 [facility] [facility] [id number] [place] [address] 43799- 2648 Sep, [facility] [facility] [id number] [place] [address] 68695- 9587 Sep, Essential hypertension I10 [facility] [facility] [id number] [place] [address] 42352- 8096 Sep, Chronic pain syndrome G89.4 [facility] [id number] [place] [address] 45930- 5802 Aug, Type 2 diabetes mellitus with hyperglycemia E11.65 ; 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 Z79.4 ; Essential hypertension I10 ; Chronic kidney disease, stage 4 (severe) N18.4 ; Chronic pain syndrome G89.4 ; Hyperlipidemia LDL goal <70 E78.5 ; GERD without esophagitis K21.9 ; Neuropathy G62.9 and Vertigo R42 [facility] [facility] [id number] [address] 3245 15 Aug, 2017 [facility] [id number] [place] [address] 89836- 6727 Aug, [facility] [id number] [place] [address] 35276- 9624 07 Aug, 2017 Chronic pain syndrome G89.4 [facility] [id number] [place] [address] 46476- 7053 Jul, Chronic pain syndrome G89.4 [facility] [id number] [place] [address] 37558- 8608 Jun, Type 2 diabetes mellitus with hyperglycemia E11.65 [facility] [id number] [place] [address] 53575- 1712 Jun, Preoperative examination Z01.818 [facility] [id number] [place] [address] 74417- 4352 Jun, Chronic pain syndrome G89.4 [facility] [id number] [place] [address] 89874- 5563 May, Type 2 diabetes mellitus with hyperglycemia E11.65 [facility] [id number] [place] [address] 08646- 8983 May, Chronic pain syndrome G89.4 [facility] [id number] [place] [address] 63667- 4355 Apr, Type 2 diabetes mellitus with hyperglycemia E11.65 ; 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 Z79.4 ; Essential hypertension I10 ; Malignant neoplasm of upper-outer quadrant of left female breast C50.412 ; Neuropathy G62.9 ; Chronic kidney disease, stage 4 (severe) N18.4 ; Chronic pain syndrome G89.4 ; Hyperlipidemia LDL goal <70 E78.5 ; GERD without esophagitis K21.9 ; Arthritis of right hip M16.11 and Pain in right knee M25.561 [facility] [address] [place] [address] 74185- 5476 Apr, Type 2 diabetes mellitus with hyperglycemia E11.65 [facility] [address] [place] [address] 25899- 6694 Apr, Chronic pain syndrome G89.4 [facility] [facility] [id number] [place] [address] 78940- 6551 Apr, 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 [facility] [id number] [place] [address] 54621- 3301 Mar, Type 2 diabetes mellitus with hyperglycemia E11.65 ; assisted current use of insulin Z79.4 ; Essential hypertension I10 ; Malignant neoplasm of upper-outer quadrant of left female breast C50.412 ; Neuropathy G62.9 ; Chronic kidney disease, stage 4 (severe) N18.4 ; Chronic pain syndrome G89.4 ; Hyperlipidemia LDL goal <70 E78.5 ; GERD without esophagitis K21.9 ; Arthritis of right hip M16.11 and Pain in right knee M25.561 [facility] [facility] [id number] [place] [address] 97188- 8790 February, Chronic pain syndrome G89.4 [facility] [id number] [place] [address] [id number] February, Dental caries K02.9 [facility] [facility] [id number] [place] [address] 44735- 4555 Jan, Type 2 diabetes mellitus with hyperglycemia E11.65 [facility] [facility] [id number] [place] [address] 58928- 5768 Jan, Type 2 diabetes mellitus with hyperglycemia E11.65 ; assisted current use of insulin Z79.4 ; Essential hypertension I10 ; Malignant neoplasm of upper-outer quadrant of left female breast C50.412 ; Neuropathy G62.9 ; Chronic kidney disease, stage 4 (severe) N18.4 ; Chronic pain syndrome G89.4 ; Hyperlipidemia LDL goal <70 E78.5 and GERD without esophagitis K21.9 [facility] [facility] [address] [place] [address] 10495- 3915 Jan, Type 2 diabetes mellitus with hyperglycemia E11.65 [facility] [address] [address]- 5409 Dec, Chronic pain syndrome G89.4 [facility] [id number] [place] [address] 88840- 2737 Nov, Type 2 diabetes mellitus with hyperglycemia E11.65 [facility] [id number] [place] [address] 23966- 7604 Nov, Type 2 diabetes mellitus with hyperglycemia E11.65 [facility] [id number] [place] [address] 03949- 1662 Nov, [facility] [facility] [id number] [place] [address] 95341- 6228 Nov, Chronic pain syndrome G89.4 [facility] [address] [place] [address] [id number] Nov, Dental caries K02.9 [facility] [address] [place] [address] 58417- 8339 Oct, Type 2 diabetes mellitus with hyperglycemia E11.65 ; Encounter for immunization Z23 ; Chronic kidney disease, stage 4 (severe) N18.4 ; assisted current use of insulin Z79.4 ; Essential hypertension I10 ; Neuropathy G62.9 ; Malignant neoplasm of upper-outer quadrant of left female breast C50.412 ; Chronic pain syndrome G89.4 and Tooth infection K04.7 [facility] [address], [place] [address]- 4808 Oct, Type 2 diabetes mellitus with hyperglycemia E11.65 [facility] [address], [place] [address]- 9339 Sep, [facility] [id number] [place] [address] 10005- 5965 Sep, Chronic kidney disease, stage 4 (severe) N18.4 [facility] [id number] [place] [address] 15868- 6370 Aug, [facility] [id number] [address]- 7845 Aug, Type 2 diabetes mellitus with hyperglycemia E11.65 [facility] [address] [id number] Aug, Dental examination Z01.20 [facility] [id number] [place] [address] 23955- 8263 Jul, Chronic kidney disease, stage 4 (severe) N18.4 [facility] [address] [address]- 3593 Jul, [facility] [facility] [id number] [place] [address] 93891- 9939 Jul, Type 2 diabetes mellitus with hyperglycemia E11.65 ; Chronic kidney disease, stage 4 (severe) N18.4 ; 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 Z79.4 ; Essential hypertension I10 ; Neuropathy G62.9 and Malignant neoplasm of upper-outer quadrant of left female breast C50.412 [facility] [address], [place] [address]- 8566 Jun, [facility] [id number] [place] [address] 26270- 2937 May, [facility] [address], [place] [address]- 0296 Apr, [facility] [address], [place] [address]- 2557 Apr, Type 2 diabetes mellitus with hyperglycemia E11.65 and Chronic kidney disease, stage 4 (severe) N18.4 [facility] [address], [place] [address]- 5379 Apr, Type 2 diabetes mellitus with hyperglycemia E11.65 [facility] [address], [place] [address]- 5363 Mar, [facility] [address], [place] [address]- 7096 Mar, Type 2 diabetes mellitus with hyperglycemia E11.65 ; 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 Z79.4 ; Neuropathy G62.9 and Foot ulcer, left, limited to breakdown of skin L97.521 [facility] [address] [id number] February, Dental examination Z01.20 [facility] [id number] [place] [address] 12255 -4092 February, Open toe wound, initial encounter S91.109A [facility] [id number] [place] [address] 50608- 1096 February, [facility] [id number] [place] [address] 05370- 5138 February, [facility] [id number] [place] [address] 90451- 2567 February, Hyperkalemia E87.5 [facility] [id number] [place] [address] 27436- 7840 February, Hyperkalemia E87.5 [facility] [id number] [place] [address] 78279- 8543 February, Hyperkalemia E87.5 [facility] [id number] [place] [address] 70646- 8719 Jan, [facility] [id number] [place] [address] 46388- 7708 Dec, [facility] [id number] [place] [address] 56590- 3747 Dec, [facility] [id number] [place] [address] 69860- 8391 Dec, Type 2 diabetes mellitus with hyperglycemia E11.65 ; 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 Z79.4 ; Essential hypertension I10 ; Malignant neoplasm of upper-outer quadrant of left female breast C50.412 ; Neuropathy G62.9 and Dental caries on smooth surface penetrating into pulp K02.63 [facility] [address], [place] [address]- 7385 Dec, [facility] [id number] [place] [address] 95756- 1353 Nov, [facility] [id number] [place] [address] 02013- 2544 Nov, [facility] [id number] [place] [address] 46905- 9064 Oct, Onychocryptosis L60.0 [facility] [id number] [place] [address] 64626- 9430 Oct, [facility] [facility] [id number] [place] [address] 50996- 3056 Sep, Type 2 diabetes mellitus with hyperglycemia E11.65 ; 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 Z79.4 ; Essential hypertension I10 ; Malignant neoplasm of upper-outer quadrant of left female breast C50.412 and Neuropathy G62.9 [place] [facility] [id number] [place] [address] 71790- 2607 Sep, [facility] [facility] [id number] [place] [address] 77468- 2914 Aug, Onychocryptosis L60.0 and Onychomycosis B35.1 [facility] [facility] [address] [place] [address] 14343- 5367 Aug, [facility] [id number] [place] [address] 85592- 9329 Aug, [facility] [address] [place] [address] 48538- 3265 Jul, Pneumonia of right middle lobe due to infectious organism J18.9 [facility] [id number] [place] [address] 75715- 6591 Jul, [facility] [id number] [place] [address] 07706- 0357 Jul, [facility] [address] [place] [address] 00321- 4868 Jul, [facility] [facility] [id number] [place] [address] 38045344- 1802 Jun, Diabetes mellitus 250.00 ; DM w/o complication type II, uncontrolled 250.02 ; Breast cancer, left 174.9 ; Personal history of antineoplastic chemotherapy V87.41 ; Back pain 724.5 ; Hip pain 719.45 and Ingrown left greater toenail 703.0 [facility] [facility] [id number] [place] [address] 54620- 1837 Apr, Diabetes mellitus 250.00 ; Breast cancer, left 174.9 ; Personal history of antineoplastic chemotherapy V87.41 ; Back pain 724.5 and Hip pain 719.45 [place] [id number] [place] [address] 96698- 9760 Apr, [facility] [facility] [id number] [place] [address] 24327- 5835 Mar, Diabetes mellitus 250.00 ; Breast cancer, left 174.9 ; Personal history of antineoplastic chemotherapy V87.41 ; Back pain 724.5 and Hip pain 719.[address] [place] [address] 32759- 7553 Mar, DM w/o complication type II, uncontrolled [...] Received chemotherapy every 3 weeks at [facility] under Dr Billingsley - Chemotherapy completed/now [...]
--- OUTSIDE RECORDS SUMMARY | 2018-07-29 06:32 | XMS REPORT ---
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 Active 748997615 Problem Malignant neoplasm of upper-outer quadrant of left female breast C50.412 Active 034295251 Problem Type 2 diabetes mellitus with hyperglycemia E11.65 Active 812861778952412 Problem Chronic kidney disease, stage 4 (severe) N18.4 Active 390166840 Problem Hyperkalemia E87.5 Active 85849776 Problem Essential hypertension I10 Active 28113137 Problem Neuropathy G62.9 Active 254920575 Problem Pre-operative examination Z01.818 Active 894611259 Problem 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 Active 690684599 Problem Hyperlipidemia LDL goal <70 E78.5 Active 24789096 Problem Chronic pain syndrome G89.4 Active 809266860 Problem Arthritis of right hip M16.11 Active 5579867176173026 Problem GERD without esophagitis K21.9 Active 816323904 ALLERGIES No Information ENCOUNTERS Encounter Location Date Diagnosis [place] [id number] [address] Jan, Type 2 diabetes mellitus with hyperglycemia E11.65 [place] [id number] [address] Dec, Type 2 diabetes mellitus with hyperglycemia E11.65 [place] [id number] [place] [address] 38364- 1283 Dec, Type 2 diabetes mellitus with hyperglycemia E11.65 [place] [id number] [address] 7269 Dec, Type 2 diabetes mellitus with hyperglycemia E11.65 [place] [address] [address] Dec, Essential hypertension I10 ; Chronic kidney disease, stage 4 (severe) N18.4 ; correction current use of insulin Z79.4 ; Type 2 diabetes mellitus with hyperglycemia E11.65 ; Chronic pain syndrome G89.4 ; Hyperlipidemia LDL goal <70 E78.5 ; GERD without esophagitis K21.9 and Neuropathy G62.9 [place] [id number] [place] [address] 38365- 7968 Nov, [place] [id number] [place] [address] 07682- 8335 Oct, [place] [id number] [place] [address] 58078- 7458 Oct, Pre-operative examination Z01.818 and Chronic kidney disease , stage 4 (severe) N18.4 [place] [id number] [place] [address] 15913- 9351 Sep, [place] [id number] [place] [address] 16742- 0867 Sep, Essential hypertension I10 [place] [id number] [place] [address] 29448- 3567 Sep, Chronic pain syndrome G89.4 [place] [id number] [place] [address] 18070- 0721 Aug, Type 2 diabetes mellitus with hyperglycemia E11.65 ; 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 ; Essential hypertension I10 ; Chronic kidney disease, stage 4 (severe) N18.4 ; Chronic pain syndrome G89.4 ; Hyperlipidemia LDL goal <70 E78.5 ; GERD without esophagitis K21.9 ; Neuropathy G62.9 and Vertigo R42 [place] [id number] [place] [address] 25308- 1110 Aug, [place] [id number] [place] [address] 80448- 5776 Aug, [place] [id number] [place] [address] 22016- 3665 Aug, Chronic pain syndrome G89.4 [place] [id number] [place] [address] 01634- 0283 Jul, Chronic pain syndrome G89.4 [place] [id number] [place] [address] 07121- 4497 Jun, Type 2 diabetes mellitus with hyperglycemia E11.65 [place] [id number] [place] [address] 45570- 7681 Jun, Preoperative examination Z01.818 [place] [id number] [place] [address] 66323- 8510 Jun, Chronic pain syndrome G89.4 [place] [address] [address]48- 4292 May, Type 2 diabetes mellitus with hyperglycemia E11.65 [place] [id number] [place] [address] 75006- 0988 May, Chronic pain syndrome G89.4 [place] [id number] [place] [address] 42138- 1884 Apr, Type 2 diabetes mellitus with hyperglycemia [...] Pain in right knee M25.561 [place] [id number] [place] [address] 74092- 0489 Apr, Type 2 diabetes mellitus with hyperglycemia E11.65 [place] [id number] [place] [address] 82938- 4580 Apr, Chronic pain syndrome G89.4 [facility] [address] [address] 7589 Apr, 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 [facility] [id number] [place] [address] 77633- 0572 Mar, Type 2 diabetes mellitus with hyperglycemia [...] Pain in right knee M25.561 [place] [id number] [place] [address] 83770- 3744 February, Chronic pain syndrome G89.4 [facility] [address] [id number] February, Dental caries K02.9 [place] [id number] [place] [address] 96618- 8767 Jan, Type 2 diabetes mellitus with hyperglycemia E11.65 [place] [id number] [place] [address] 04607- 6533 Jan, Type 2 diabetes mellitus with hyperglycemia E11.65 ; correction current use of insulin Z79.4 ; Essential hypertension I10 ; Malignant neoplasm of upper-outer quadrant of left female breast C50.412 ; Neuropathy G62.9 ; Chronic kidney disease, stage 4 (severe) N18.4 ; Chronic pain syndrome G89.4 ; Hyperlipidemia LDL goal <70 E78.5 and GERD without esophagitis K21.9 [place] [id number] [place] [address] 09952- 8875 Jan, Type 2 diabetes mellitus with hyperglycemia E11.65 [place] [id number] [place] [address] 19637- 2829 Dec, Chronic pain syndrome G89.4 [facility] [address], [place] [address] 5713 Nov, Type 2 diabetes mellitus with hyperglycemia E11.65 [facility] [address] [place] [address] 33350- 5734 Nov, Type 2 diabetes mellitus with hyperglycemia E11.65 [facility] [address] [place] [address] 07559- 0422 Nov, [facility] [id number] [place] [address] 65010- 7751 Nov, Chronic pain syndrome G89.4 [facility] [id number] [place] [address] [id number] Nov, Dental caries K02.9 [facility] [address] [place] [address] 63249- 3003 Oct, Encounter for immunization Z23 ; Type 2 diabetes mellitus with hyperglycemia E11.65 ; Chronic kidney disease, stage 4 (severe) N18.4 ; 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 ; Essential hypertension I10 ; Neuropathy G62.9 ; Malignant neoplasm of upper-outer quadrant of left female breast C50.412 ; Chronic pain syndrome G89.4 and Tooth infection K04.7 [facility] [address], [place] [address] 5169 Oct, Type 2 diabetes mellitus with hyperglycemia E11.65 [facility] [address] [place] [address] 35328- 7548 Sep, [facility] [id number] [place] [address] 96775- 9284 Sep, Chronic kidney disease, stage 4 (severe) N18.4 [facility] [address] [place] [address] 28043- 5660 Aug, [facility] [address] [place] [address] 63070- 6941 Aug, Type 2 diabetes mellitus with hyperglycemia E11.65 [facility] [id number] [id number] 10 Aug, 2016 Dental examination Z01.20 [place] [id number] [place] [address] 93362- 2880 Jul, Chronic kidney disease, stage 4 (severe) N18.4 [place] [id number] [place] [address] 93978- 8058 Jul, [place] [id number] [place] [address] 73641- 4999 Jul, Type 2 diabetes mellitus with hyperglycemia E11.65 ; Chronic kidney disease, stage 4 (severe) N18.4 ; correction current use of insulin Z79.4 ; Essential hypertension I10 ; Neuropathy G62.9 and Malignant neoplasm of upper-outer quadrant of left female breast C50.412 [place] [id number] [place] [address] 32104- 8417 Jun, [place] [id number] [place] [address] 34716- 1080 May, [place] [id number] [place] [address] 33020- 2313 Apr, [place] [address] [place] [address] 89615- 0695 Apr, Type 2 diabetes mellitus with hyperglycemia E11.65 and Chronic kidney disease, stage 4 (severe) N18.4 [place] [address] [place] [address] 43199- 3582 Apr, Type 2 diabetes mellitus with hyperglycemia E11.65 [place] [address] [place] [address] 80490- 0196 Mar, [place] [id number] [place] [address] [id number]- 5579 Mar, Type 2 diabetes mellitus with hyperglycemia E11.65 ; correction current use of insulin Z79.4 ; Neuropathy G62.9 and Foot ulcer, left, limited to breakdown of skin L97.521 [facility] [id number] [id number] February, Dental examination Z01.20 [facility] [address] [place] [address] 44750 -3656 February, Open toe wound, initial encounter S91.109A [facility] [id number] [place] [address] 78054- 6096 February, [facility] [id number] [place] [address] 42498- 9554 February, [facility] [id number] [place] [address] 15541- 4560 February, Hyperkalemia E87.5 [facility] [id number] [place] [address] 26974- 3664 February, Hyperkalemia E87.5 [facility] [id number] [place] [address] 08068- 5345 February, Hyperkalemia E87.5 [facility] [id number] [place] [address] 11661- 5676 Jan, [facility] [id number] [place] [address] 02792- 0559 Dec, [facility] [address] [place] [address] 40018- 4617 Dec, [facility] [id number] [place] [address] 16071- 9503 Dec, Type 2 diabetes mellitus with hyperglycemia E11.65 ; correction current use of insulin Z79.4 ; Essential hypertension I10 ; Malignant neoplasm of upper-outer quadrant of left female breast C50.412 ; Neuropathy G62.9 and Dental caries on smooth surface penetrating into pulp K02.63 [facility] [address] [place] [address] 33194- 0017 Dec, [facility] [address], [place] [address]- 7382 Nov, [facility] [id number] [place] [address] 30293- 8991 Nov, [facility] [id number] [place] [address] 34612- 7293 Oct, Onychocryptosis L60.0 [facility] [id number] [place] [address] 99904- 6704 Oct, [facility] [address] [place] [address] 76329- 0823 Sep, Type 2 diabetes mellitus with hyperglycemia E11.65 ; correction current use of insulin Z79.4 ; Essential hypertension I10 ; Malignant neoplasm of upper-outer quadrant of left female breast C50.412 and Neuropathy G62.9 [place] [id number] [place] [address] 42131- 9806 Sep, [facility] [id number] [place] [address] 62391- 8139 Aug, Onychocryptosis L60.0 and Onychomycosis B35.1 [place] [address] [place] [address] 68604- 0607 Aug, [facility] [address] [address]- 7455 Aug, [facility] [id number] [place] [address] 11447- 6470 Jul, Pneumonia of right middle lobe due to infectious organism J18.9 [facility] [id number] [place] [address] 05425- 6610 Jul, [facility] [id number] [place] [address] 04827- 5670 Jul, [facility] [address] [place] [address] 01744- 5564 Jul, [place] [address], [place] [address]- 5875 Jun, Diabetes mellitus 250.00 ; DM w/o complication type II, uncontrolled 250.02 ; Breast cancer, left 174.9 ; Personal history of antineoplastic chemotherapy V87.41 ; Back pain 724.5 ; Hip pain 719.45 and Ingrown left greater toenail 703.0 [place] [id number] [place] [address] 32973- 7953 Apr, Diabetes mellitus 250.00 ; Breast cancer, left 174.9 ; Personal history of antineoplastic chemotherapy V87.41 ; Back pain 724.5 and Hip pain 719.45 [id number] [place] [address] 52694- 6340 Apr, [place] [id number] [place] [address] 51584- 4664 Mar, Diabetes mellitus 250.00 ; Breast cancer, left 174.9 ; Personal history of antineoplastic chemotherapy V87.41 ; Back pain 724.5 and Hip pain 719.45 [address] [id number] [place] [address] 68796- 7927 Mar, DM w/o complication type II, uncontrolled [...] History Received chemotherapy every 3 weeks at [facility] under Dr Billingsley - Chemotherapy completed/now [...]
--- OUTSIDE RECORDS SUMMARY | 2018-07-29 06:41 | XMS REPORT | Continuity of Care Document ---
Author Author [facility] Organization [facility] Address Unknown Phone Unavailable Allergies Active Description Code Type Severity Reaction Onset Reported/Identified Relationship to Patient Clinical Status Yes CHLORAHEXIDINE PREP MODERATE ITCHING,OTHER Yes CODEINE SULFATE MODERATE UNKNOWN Yes ITCHING T SKIN BREAKING OUT MODERATE ITCHING,OTHER Yes NO KNOWN DRUG ALLERGIES UNKNOWN NO KNOWN DRUG ALLERG Yes SCOPOLAMINE BASE MODERATE OTHER Yes No Known Drug Allergies [id number] Drug Allergy Unknown N/A 08/08/2016 Yes codeine [id number] Drug Allergy Unknown N/A 09/03/2017 Yes chlorhexidine [id number] Drug Allergy Unknown N/A 02/06/2018 Yes scopolamine [id number] Drug Allergy Unknown N/A 02/06/2018 Medications Medication Packaging Start Date Stop Date Route Dosage Sig INSULIN ASPART PEN INJ 100 UNITS/CC (NOVOLOG FLEXPEN) UNITS 11/07/2017 12/07/2017 AC&0630,1130,1630 MAGNESIUM OXIDE TAB 400 MG (MAG-OX) MG 11/07/2017 11/14/2017 TID&0800,1400,2000 GABAPENTIN CAP 300 MG (NEURONTIN) MG 11/07/2017 11/14/2017 BID&0800,2000 FISH OIL CAP CAP 1000 MG (OMEGA 3) MG 11/07/2017 11/14/2017 TID&0800,1400,2000 INSULIN DETEMIR VIAL INJ 100 UNITS/CC (LEVEMIR VIAL) UNITS 11/07/2017 12/07/2017 BID&0800,2000 NORMAL SALINE 1000CC IV BAG INJ 0.9 % (NS 1000CC IV BAG) ml 11/08/2017 11/23/2017 CONTINUOUSEVERY 0 Hour ONDANSETRON VIAL INJ 4 MG/2CC (ZOFRAN 2CC VIAL) MG 11/08/2017 11/08/2017 PRN ONCE AMLODIPINE TAB 5 MG (NORVASC) MG 11/14/2017 Daily&0900 PANTOPRAZOLE TAB 40 MG (PROTONIX) MG 11/08/2017 11/14/2017 Daily&0900 FENOFIBRATE TAB 160 MG (TRICOR) MG 11/08/2017 11/14/2017 Daily&0900 LISINOPRIL TAB 40 MG (ZESTRIL) MG 11/08/2017 11/14/2017 Daily&0900 HYDROCHLOROTHIAZIDE TAB 25 MG (HYDRODIURIL) MG 11/08/2017 11/14/2017 Daily&0900 FOLIC ACID TAB 1 MG MCG 11/08/2017 11/14/2017 Daily& 0900 Vitamin D-3 5,000 units oral capsule UNITS 11/08/2017 12/07/2017 Daily&0900 Tranexamic acid IV solution 1 Gm vials (TXA) GM 11/08/2017 11/08/2017 ONCE&0944 Cefuroxime sodium 1.5 Gm vial (Zinacef) GM 11/08/2017 11/08/2017 ONCE&0944 D5 1/2 NS 1000CC IV BAG INJ ml 11/15/2017 CONTINUOUSEVERY 0 Hour Cefuroxime sodium 750mg vial (Zinacef) MG 11/08/2017 11/08/2017 ONCE&0946 DIPHENHYDRAMINE VIAL INJ 50 MG/CC (BENADRYL VIAL) MG 11/08/2017 11/13/2017 PRN Q6H NORMAL SALINE 1000CC IV BAG INJ 0.9 % (NS 1000CC IV BAG) ml 11/08/2017 11/23/2017 CONTINUOUSEVERY 0 Hour NORMAL SALINE 50CC IV BAG INJ (NS 50CC MINI-BAG) ml 11/08/2017 11/09/2017 Q8H&0000,1600 INSULIN ASPART PEN INJ 100 UNITS/CC (NOVOLOG FLEXPEN) UNITS 11/08/2017 12/07/2017 AC&0630,1130,1630 METOPROLOL TAB 25 MG (LOPRESSOR) MG 11/08/2017 11/15/2017 BID&0800,2000 ACETAMINOPHEN TAB 500 MG (TYLENOL) MG 11/08/2017 11/22/2017 PRN BID INSULIN DETEMIR PEN INJ 100 UNITS/CC (LEVEMIR FLEXPEN) UNITS 11/08/2017 12/08/2017 BID&0800,2000 ENOXAPARIN SYRINGE INJ 30 MG (LOVENOX SYRINGE) MG 11/09/2017 11/18/2017 BID&0800,2000 PANTOPRAZOLE TAB 40 MG (PROTONIX) MG 11/09/2017 11/14/2017 Daily&0900 FENOFIBRATE TAB 160 MG (TRICOR) MG 11/09/2017 11/14/2017 Daily&0900 LISINOPRIL TAB 40 MG (ZESTRIL) MG 11/09/2017 11/14/2017 Daily&0900 HYDROCHLOROTHIAZIDE TAB 25 MG (HYDRODIURIL) MG 11/09/2017 11/14/2017 Daily&0900 Vitamin D-3 5,000 units oral capsule UNITS 11/09/2017 12/07/2017 Daily&0900 FENTANYL INJ 100 MCG/2CC VIAL MCG 11/09/2017 11/14/2017 PRN Q3H SIMVASTATIN TAB 10 MG (ZOCOR) MG 11/15/2017 QPM&2000 Letrozole oral tablet 2.5mg MG 12/08/2017 QPM&2000 NORMAL SALINE 250CC IV BAG INJ 0.9 % (NS 250CC IV BAG) ml 11/10/2017 11/10/2017 ONCE&1140 FUROSEMIDE VIAL INJ 40 MG (LASIX VIAL) MG 11/10/2017 11/10/2017 ONCE&1330 MILK OF MAGNESIA LIQ ml 11/11/2017 11/18/2017 PRN BID LACTULOSE SYRUP LIQ 20 GM/30CC (CHRONULAC SYRUP) GM 11/11/2017 11/18/2017 TID&0800,1400,2000 Glucerna 1 Kendall (nut.tx.gluc.intol,lac-free,soy) oral liquid EACH 11/12/2017 11/12/2017 ONCE&1122 Glucerna 1 Kendall (nut.tx.gluc.intol,lac-free,soy) oral liquid EACH 11/12/2017 11/22/2017 TID&0700,1200,1730 FENOFIBRATE TAB 160 MG (TRICOR) MG 11/13/2017 11/19/2017 QHS&2100 PANTOPRAZOLE TAB 40 MG (PROTONIX) Dose(s) 11/14/2017 11/15/2017 Daily&0900 HYDROCHLOROTHIAZIDE TAB 25 MG (HYDRODIURIL) Dose(s) 11/14/2017 11/15/2017 Daily&0900 FOLIC ACID TAB 1 MG Dose(s) 201711/15/2017 Daily&0900 GABAPENTIN CAP 300 MG (NEURONTIN) Dose(s) 11/14/2017 11/16/2017 BID&0800,2000 PANTOPRAZOLE TAB 40 MG (PROTONIX) Dose(s) 11/15/2017 11/16/2017 Daily&0900 HYDROCHLOROTHIAZIDE TAB 25 MG (HYDRODIURIL) Dose(s) 11/15/2017 11/16/2017 Daily&0900 FOLIC ACID TAB 1 MG Dose(s) 201711/16/2017 Daily&0900 INSULIN ASPART PEN INJ 100 UNITS/CC (NOVOLOG FLEXPEN) UNITS 03/20/2018 04/19/2018 AC&0630,1130,1630 ACETAMINOPHEN TAB 500 MG (TYLENOL) MG 03/20/2018 04/03/2018 PRN BID INSULIN DETEMIR VIAL INJ 100 UNITS/CC (LEVEMIR VIAL) UNITS 03/20/2018 04/19/2018 BID&0800,2000 AMLODIPINE TAB 5 MG (NORVASC) MG 03/26/2018 QHS&2100 Letrozole oral tablet 2.5mg MG 04/18/2018 QHS&2100 NORMAL SALINE 1000CC IV BAG INJ 0.9 % (NS 1000CC IV BAG) ml 03/21/2018 04/05/2018 CONTINUOUSEVERY 0 Hour Cefuroxime sodium 1.5 Gm vial (Zinacef) GM 03/21/2018 03/21/2018 ONCE&0718 Tranexamic acid IV solution 1 Gm vials (TXA) GM 03/21/2018 03/21/2018 ONCE&0720 D5 1/2 NS 1000CC IV BAG INJ ml 03/28/2018 CONTINUOUSEVERY 0 Hour Cefuroxime sodium 750mg vial (Zinacef) MG 03/21/2018 03/21/2018 ONCE&0732 ASPIRIN ENTERIC COATED TAB 81 MG (BABY ASPIRIN EC) MG 03/21/2018 03/27/2018 QAM&0800 ENOXAPARIN SYRINGE INJ 30 MG (LOVENOX SYRINGE) MG 03/21/2018 03/30/2018 BID&0800,2000 SENNA CONC/DOCUSATE TAB (SENOKOT S) TAB 03/21/2018 04/19/2018 BID&0800,2000 ASPIRIN ENTERIC COATED TAB 81 MG (BABY ASPIRIN EC) MG 03/21/2018 04/03/2018 Daily&0900 MultiVits (Thera M Plus) (mkivjasw-lrxd-eglwqfq) oral tablet TAB 03/21/2018 04/19/2018 Daily&0900 OXYCODONE/APAP 10MG/325MG TAB(PERCOCET-10) TAB 03/21/2018 03/28/2018 PRN Q4H ONDANSETRON VIAL INJ 4 MG/2CC (ZOFRAN 2CC VIAL) MG 03/21/2018 03/28/2018 PRN Q4H DIPHENHYDRAMINE VIAL INJ 50 MG/CC (BENADRYL VIAL) MG 03/21/2018 03/26/2018 PRN Q4H 0.45% SALINE 1000CC BAG INJ 0.45 % (HALF NORMAL SALINE 1000CC) ML 03/21/2018 03/28/2018 CONTINUOUSEVERY 0 Hour INSULIN ASPART PEN INJ 100 UNITS/CC (NOVOLOG FLEXPEN) UNITS 03/21/2018 04/19/2018 AC&0630,1130,1630 Vitamin D-3 5,000 units oral capsule UNITS 03/21/2018 04/19/2018 Daily&1200 DIPHENHYDRAMINE VIAL INJ 50 MG/CC (BENADRYL VIAL) MG 03/21/2018 03/26/2018 PRN Q6H Cefuroxime sodium 750mg vial (Zinacef) MG 03/21/2018 03/22/2018 BID&2359 ACETAMINOPHEN ORAL TABLET 325mg(Tylenol) MG 03/21/2018 04/20/2018 PRN EVERY 6 Hour MAGNESIUM OXIDE TAB 400 MG (MAG-OX) MG 03/21/2018 03/27/2018 TID&0800,1400,2000 SIMVASTATIN TAB 10 MG (ZOCOR) MG 03/27/2018 QPM&2000 METOPROLOL TAB 25 MG (LOPRESSOR) MG 03/21/2018 03/27/2018 BID&0800,2000 FISH OIL CAP CAP 1000 MG (OMEGA 3) MG 03/21/2018 03/27/2018 TID&0800,1400,2000 INSULIN DETEMIR PEN INJ 100 UNITS/CC (LEVEMIR FLEXPEN) UNITS 03/21/2018 04/20/2018 BID&0800,2000 AMLODIPINE TAB 5 MG (NORVASC) MG 03/26/2018 QHS&2100 FENOFIBRATE TAB 160 MG (TRICOR) MG 03/21/2018 03/27/2018 QHS&2100 GABAPENTIN CAP 300 MG (NEURONTIN) MG 03/21/2018 03/27/2018 QHS&2100 TEMAZEPAM CAP 15 MG (RESTORIL) MG 03/21/2018 03/27/2018 PRN QHS Cefuroxime sodium 750mg vial (Zinacef) MG 03/21/2018 03/21/2018 ONCE&2359 PANTOPRAZOLE TAB 40 MG (PROTONIX) MG 03/22/2018 03/27/2018 QAM&0800 HYDROCHLOROTHIAZIDE TAB 25 MG (HYDRODIURIL) MG 03/22/2018 03/27/2018 QAM&0800 GABAPENTIN CAP 300 MG (NEURONTIN) MG 03/22/2018 03/27/2018 Daily&1200 LISINOPRIL TAB 40 MG (ZESTRIL) MG 03/22/2018 03/27/2018 Daily&1200 FOLIC ACID TAB 1 MG MCG 03/22/2018 03/27/2018 Daily& 1200 NORMAL SALINE 250CC IV BAG INJ 0.9 % (NS 250CC IV BAG) ml 03/23/2018 03/23/2018 ONCE&0855 FUROSEMIDE VIAL INJ 40 MG (LASIX VIAL) MG 03/23/2018 03/23/2018 ONCE&1200 LACTULOSE SYRUP LIQ 20 GM/30CC (CHRONULAC SYRUP) GM 03/23/2018 04/01/2018 BID&0800,2000 Problems Date Dx Coded Attending Type Code Diagnosis Diagnosed By HUGO TANG Ot C50.912 MALIGNANT NEOPLASM OF UNSPECIFIED SITE O HUGO TANG Ot D64.9 ANEMIA, UNSPECIFIED HUGO TANG Ot E11.9 TYPE 2 DIABETES MELLITUS WITHOUT COMPLIC HUGO TANG Ot E78.1 PURE HYPERGLYCERIDEMIA HUGO TANG Ot E78.5 HYPERLIPIDEMIA, UNSPECIFIED HUGO TANG Ot I10 ESSENTIAL (PRIMARY) HYPERTENSION HUGO TANG Ot 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 HUGO Mendoza Ot I25.2 OLD MYOCARDIAL INFARCTION KITTY HUGO Mendoza Ot 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+] KITTY, HUGO Mendoza Ot Z51.11 ENCOUNTER FOR ANTINEOPLASTIC CHEMOTHERAP KITTYHUGO Ot Z72.0 TOBACCO USE KITTYHUGO Ot Z79.4 SENIOR LIVING (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 OF INSULIN KITTYHUGO N Ot Z79.899 OTHER SENIOR LIVING (CURRENT) DRUG THERAPY KITTYHUGO N Ot Z90.12 ACQUIRED ABSENCE OF LEFT BREAST AND NIPP 09/20/1530 HUGO TANG Ot C50.112 MALIGNANT NEOPLASM OF CENTRAL PORTION OF 09/20/1530 HUGO TANG Ot D64.9 ANEMIA, UNSPECIFIED 09/20/1530 HUGO TANG Ot E11.9 TYPE 2 DIABETES MELLITUS WITHOUT COMPLIC 09/20/1530 HUGO TANG Ot E55.9 VITAMIN D DEFICIENCY, UNSPECIFIED 09/20/1530 KITTYHUGO Ot E78.1 PURE HYPERGLYCERIDEMIA 09/20/1530 KITTYHUGO Ot E78.5 HYPERLIPIDEMIA, UNSPECIFIED 09/20/1530 HUGO TANG Ot I10 ESSENTIAL (PRIMARY) HYPERTENSION 09/20/1530 KITTYHUGO Ot I25.10 ATHSCL HEART DISEASE OF [place] CORONARY 09/20/1530 KITTYHUGO Ot I25.2 OLD MYOCARDIAL INFARCTION 09/20/1530 KITTYHUGO Ot 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+] 09/20/1530 KITTYHUGO Ot Z45.2 ENCOUNTER FOR ADJUSTMENT AND MANAGEMENT 09/20/1530 HUGO TANG Ot Z72.0 TOBACCO USE 09/20/1530 HUGO TANG N Ot Z79.4 SENIOR LIVING (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 OF INSULIN 09/20/1530 HUGO TANG Ot Z79.899 OTHER SENIOR LIVING (CURRENT) DRUG THERAPY 09/20/1530 HUGO TANG Ot Z90.12 ACQUIRED ABSENCE OF LEFT BREAST AND NIPP 01/27/2015 PETTY EARL, DARI S Ot 174.9 02/02/2015 PETTY AERL, DARI S Ot 174.9 02/04/2015 PETTY EARL, DARI S Ot 174.9 02/04/2015 PETTY EARL, DARI S Ot 174.9 02/06/2015 PETTY EARL, DARI S Ot 174.9 02/06/2015 PETTY EARL, DARI S Ot 250.00 02/06/2015 PETTY EARL, DARI S Ot 305.1 02/06/2015 PETTY EARL, DARI S Ot 401.9 02/06/2015 PETTY EARL, DARI S Ot V16.3 02/26/2015 PETTY EARL, DARI S Ot 174.9 02/26/2015 PETTY EARL, DARI S Ot 174.9 02/26/2015 PETTY EARL, DARI S Ot 174.9 02/26/2015 PETTY EARL, DARI S Ot V72.84 02/26/2015 PETTY EARL, DARI S Ot V74.8 03/02/2015 PETTY EARL, DARI S Ot 174.9 03/02/2015 PETTY EARL, DARI S Ot 174.9 03/02/2015 PETTY EARL, DARI S Ot 174.9 03/02/2015 PETTY EARL, DARI S Ot V72.84 03/02/2015 PETTY EARL, DARI S Ot V74.8 03/02/2015 KITTY, BOBAN N Ot 174.9 03/02/2015 KITTY, BOBAN N Ot 196.3 03/02/2015 KITTY, BOBAN N Ot 250.02 03/02/2015 KITTY, BOBAN N Ot 401.9 03/02/2015 KITTY, BOBAN N Ot 521.00 03/02/2015 KITTY, BOBAN N Ot V15.82 03/02/2015 KITTY, BOBAN N Ot V16.3 03/02/2015 KITTY, BOBAN N Ot V45.71 03/02/2015 KITTY, BOBAN N Ot V58.69 03/02/2015 KITTY, BOBAN N Ot V86.0 03/02/2015 KITTY, BOBAN N Ot 174.9 03/02/2015 KITTY, BOBAN N Ot 196.3 03/02/2015 KITTY, BOBAN N Ot 250.02 03/02/2015 KITTY, BOBAN N Ot 401.9 03/02/2015 KITTY, BOBAN N Ot 521.00 03/02/2015 KITTY, BOBAN N Ot V15.82 03/02/2015 KITTY, BOBAN N Ot V16.3 03/02/2015 KITTY, BOBAN N Ot V45.71 03/02/2015 KITTY, BOBAN N Ot V58.69 03/02/2015 KITTY, BOBAN N Ot V86.0 03/03/2015 PETTY EARL, DARI S Ot 174.9 03/03/2015 PETTY EARL, DARI S Ot 174.9 03/03/2015 PETTY EARL, DARI S Ot 174.9 03/03/2015 PETTY EARL, DARI S Ot V72.84 03/03/2015 PETTY EARL, DARI S Ot V74.8 03/03/2015 KITTY, BOBAN N Ot 174.9 03/03/2015 KITTY, BOBAN N Ot 196.3 03/03/2015 KITTY, BOBAN N Ot 250.02 03/03/2015 KITTY, BOBAN N Ot 401.9 03/03/2015 KITTY, BOBAN N Ot 521.00 03/03/2015 KITTY, BOBAN N Ot V15.82 03/03/2015 KITTY, BOBAN N Ot V16.3 03/03/2015 KITTY, BOBAN N Ot V45.71 03/03/2015 KITTY, BOBAN N Ot V58.69 03/03/2015 KITTY, BOBAN N Ot V86.0 03/03/2015 KITTY, BOBAN N Ot 174.9 03/03/2015 KITTY, BOBAN N Ot V58.69 03/03/2015 KITTY, BOBAN N Ot V58.83 03/05/2015 PETTY EARL, DARI S Ot 174.9 MALIGN NEOPL BREAST NOS 2015 KITTY, BOBAN N Ot 174.9 2015 KITTY, BOBAN N Ot 196.3 2015 KITTY, BOBAN N Ot 250.02 2015 KITTY, BOBAN N Ot 401.9 2015 KITTY, BOBAN N Ot 521.00 2015 KITTY, BOBAN N Ot V15.82 2015 KITTY, BOBAN N Ot V16.3 2015 KITTY, BOBAN N Ot V45.71 2015 KITTY, BOBAN N Ot V58.69 2015 KITTY, SANDRAAN N Ot V86.0 03/12/2015 DARI DOVE MD S Ot 174.9 04/01/2015 CHAVEZSTEFFANIE Kang S 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 Ot 174.9 04/01/2015 CHAVEZSTEFFANIE Kang S 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 Ot 196.3 04/01/2015 CHAVEZSTEFFANIE S 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 Ot 250.02 04/01/2015 CHAVEZSTEFFANIE S 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 Ot 401.9 04/01/2015 CHAVEZSTEFFANIE S 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 Ot V15.82 04/01/2015 CHAVEZSTEFFANIE S 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 Ot V45.71 04/01/2015 CHAVEZSTEFFANIE S 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 Ot V58.69 04/01/2015 CHAVEZSTEFFANIE Kang S 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 Ot V86.0 04/01/2015 CHAVEZSTEFFANIE Kang S 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 Ot 174.9 04/01/2015 CHAVEZSTEFFANIE Kang S 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 Ot 780.4 04/01/2015 STEFFANIE CHAVEZ S 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 Ot 781.2 04/05/2015 KITTY, HUGO N Ot 174.9 04/05/2015 KITTY, SANDRAAN N Ot V58.69 04/05/2015 KITTY, BOBAN N Ot V58.83 04/13/2015 KITTY, BOBAN N Ot 174.9 04/13/2015 KITTY, BOBAN N Ot 196.3 04/13/2015 KITTY, BOBAN N Ot 250.02 04/13/2015 KITTY, BOBAN N Ot 401.9 04/13/2015 KITTY, BOBAN N Ot 521.00 04/13/2015 KITTY, BOBAN N Ot V15.82 04/13/2015 KITTY, BOBAN N Ot V16.3 04/13/2015 KITTY, BOBAN N Ot V45.71 04/13/2015 KITTY, BOBAN N Ot V58.69 04/13/2015 KITTY, SANDRAAN N Ot V86.0 04/17/2015 STEFFANIE CHAVEZ 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 Ot 174.9 04/17/2015 STEFFANIE CHAVEZ 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 Ot 196.3 04/17/2015 STEFFANIE CHAVEZ S 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 Ot 250.02 04/17/2015 STEFFANIE CHAVEZ S 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 Ot 368.9 04/17/2015 STEFFANIE CHAVEZ S 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 Ot 401.9 04/17/2015 STEFFANIE CHAVEZ S 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 Ot 780.4 04/17/2015 STEFFANIE CHAVEZ S 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 Ot 781.2 04/17/2015 STEFFANIE CHAVEZ S 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 Ot V45.71 04/17/2015 STEFFANIE CHAVEZ S 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 Ot V58.67 04/17/2015 STEFFANIE CHAVEZ S 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 Ot V58.69 04/17/2015 STEFFANIE CHAVEZ 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 Ot V86.0 04/17/2015 STEFFANIE CHAVEZ S 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 Ot 174.9 04/17/2015 STEFFANIE CHAVEZ S 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 Ot 780.4 04/17/2015 STEFFANIE CHAVEZ 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 Ot 781.2 04/21/2015 KITTY, BOBAN N Ot 174.9 04/21/2015 KITTY, BOBAN N Ot 196.3 04/21/2015 KITTY, BOBAN N Ot 250.02 04/21/2015 KITTY, BOBAN N Ot 401.9 04/21/2015 KITTY, BOBAN N Ot 521.00 04/21/2015 KITTY, BOBAN N Ot V15.82 04/21/2015 KITTY, BOBAN N Ot V16.3 04/21/2015 KITTY, BOBAN N Ot V45.71 04/21/2015 KITTY, BOBAN N Ot V58.69 04/21/2015 KITTY, BOBAN N Ot V86.0 04/25/2015 ERIN CRAWFORD MARINE CHRONOMETER ASSEMBLER Ot 174.9 04/25/2015 ERIN CRAWFORD MARINE CHRONOMETER ASSEMBLER Ot 250.00 04/25/2015 ERIN CRAWFORD MARINE CHRONOMETER ASSEMBLER Ot 599.0 04/25/2015 ERIN CRAWFORD MARINE CHRONOMETER ASSEMBLER Ot 780.39 04/25/2015 ERIN CRAWFORD MARINE CHRONOMETER ASSEMBLER Ot V58.69 05/08/2015 DARI DOVE MD Ot 174.9 05/08/2015 PETTY EARL, DARI S Ot V72.83 05/08/2015 PETTY EARL, DARI S Ot V74.8 05/08/2015 STEFFANIE CHAVEZ S 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 Ot 174.9 05/08/2015 STEFFANIE CHAVEZ S 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 Ot 196.3 05/08/2015 STEFFANIE CHAVEZ S 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 Ot 250.02 05/08/2015 STEFFANIE CHAVEZ S 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 Ot 401.9 05/08/2015 STEFFANIE CHAVEZ S 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 Ot V15.82 05/08/2015 STEFFANIE CHAVEZ S 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 Ot V45.71 05/08/2015 STEFFANIE CHAVEZ S 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 Ot V58.69 05/08/2015 STEFFANIE CHAVEZ S 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 Ot V86.0 05/08/2015 STEFFANIE CHAVEZ S 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 Ot 174.9 05/08/2015 STEFFANIE CHAVEZ S 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 Ot 196.3 05/08/2015 STEFFANIE CHAVEZ S 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 Ot 250.02 05/08/2015 STEFFANIE CHAVEZ S 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 Ot 368.9 05/08/2015 STEFFANIE CHAVEZ S 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 Ot 401.9 05/08/2015 STEFFANIE CHAVEZ S 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 Ot 780.4 05/08/2015 STEFFANIE CHAVEZ S 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 Ot 781.2 05/08/2015 STEFFANIE CHAVEZ S 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 Ot V45.71 05/08/2015 STEFFANIE CHAVEZ S 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 Ot V58.67 05/08/2015 STEFFANIE CHAVEZ S 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 Ot V58.69 05/08/2015 STEFFANIE CHAVEZ S 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 Ot V86.0 05/08/2015 STEFFANIE CHAVEZ S 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 Ot 174.9 05/08/2015 STEFFANIE CHAVEZ S 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 Ot 780.4 05/08/2015 CHAVEZSTEFFANIE Kang S 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 Ot 781.2 05/10/2015 CHOLO EARL, NEEMA Britton Ot 174.9 05/10/2015 CHOLO EARL, NEEMA Britton Ot 250.00 05/10/2015 CHOLO EARL, NEEMA Britton Ot 272.1 05/10/2015 CHOLO EARL, NEEMA Britton Ot 272.4 05/10/2015 CHOLO EARL, NEEMA Britton Ot 275.2 05/10/2015 CHOLO EARL, BASHAR J Ot 276.8 05/10/2015 CHOLO EARL, BASHAR J Ot 284.89 05/10/2015 CHOLO EARL, BASHAR J Ot 285.3 05/10/2015 CHOLO EARL, BASHAR J Ot 285.9 05/10/2015 CHOLO EARL, BASHAR J Ot 288.60 05/10/2015 CHOLO EARL, BASHAR J Ot 401.9 05/10/2015 CHOLO EARL, BASHAR J Ot 410.71 05/10/2015 CHOLO EARL, BASHAR J Ot 414.01 05/10/2015 CHOLO EARL, BASHAR J Ot 716.90 05/10/2015 CHOLO EARL, BASHAR J Ot E000.8 05/10/2015 CHOLO EARL, BASHAR J Ot E933.1 05/10/2015 CHOLO EARL, BAKARIHAR J Ot V15.82 05/10/2015 CHOLO EARL, NEEMA J Ot V45.71 05/10/2015 CHOLO EARL, BAKARIHAR J Ot V58.67 05/10/2015 CHOLO EARL, BASHAR J Ot 174.9 05/10/2015 CHOLO EARL, BASHAR J Ot 250.00 05/10/2015 CHOLO EARL, BASHAR J Ot 272.1 05/10/2015 CHOLO EARL, BASHAR J Ot 272.4 05/10/2015 CHOLO EARL, BASHAR J Ot 275.2 05/10/2015 CHOLO EARL, BASHAR J Ot 276.8 05/10/2015 CHOLO EARL, BASHAR J Ot 284.89 05/10/2015 CHOLO EARL, BASHAR J Ot 285.9 05/10/2015 CHOLO EARL, BASHAR J Ot 288.60 05/10/2015 CHOLO EARL, BASHAR J Ot 401.9 05/10/2015 CHOLO EARL, BASHAR J Ot 410.71 05/10/2015 CHOLO EARL, BASHAR J Ot 414.01 05/10/2015 CHOLO EARL, BASHAR J Ot 716.90 05/10/2015 CHOLO EARL, BASHAR J Ot E000.8 05/10/2015 CHOLO EARL, BASHAR J Ot E933.1 05/10/2015 CHOLO EARL, BAKARIHAR J Ot V15.82 05/10/2015 CHOLO EARL, BAKARIHAR J Ot V45.71 05/10/2015 CHOLO EARL, NEEMA Britton Ot V58.67 05/25/2015 CHAVEZSTEFFANIE Kang S 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 Ot 174.9 05/25/2015 CHAVEZSTEFFANIE S 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 Ot 196.3 05/25/2015 CHAVEZSTEFFANIE S 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 Ot 368.9 05/25/2015 CHAVEZ, STEFFANIE S 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 Ot 401.9 05/25/2015 CHAVEZSTEFFANIE S 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 Ot 780.4 05/25/2015 CHAVEZ, STEFFANIE S 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 Ot V15.82 05/25/2015 CHAVEZ, STEFFANIE S 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 Ot V45.71 05/25/2015 CHAVEZ, STEFFANIE S 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 Ot V58.67 05/25/2015 CHAVEZSTEFFANIE S 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 Ot V58.69 05/25/2015 CHAVEZSTEFFANIE S 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 Ot V86.0 05/27/2015 KITTY, BOBAN N Ot 174.9 05/27/2015 KITTY, BOBAN N Ot 196.3 05/27/2015 KITTY, BOBAN N Ot 250.02 05/27/2015 KITTY, BOBAN N Ot 401.9 05/27/2015 KITTY, BOBAN N Ot 521.00 05/27/2015 KITTY, BOBAN N Ot V15.82 05/27/2015 KITTY, BOBAN N Ot V16.3 05/27/2015 KITTY, BOBAN N Ot V45.71 05/27/2015 KITTY, BOBAN N Ot V58.11 05/27/2015 KITTY, BOBAN N Ot V58.69 05/27/2015 KITTY, BOBAN N Ot V86.0 05/27/2015 KITTY, BOBAN N Ot 174.9 05/27/2015 KITTY, BOBAN N Ot 196.3 05/27/2015 KITTY, BOBAN N Ot 250.02 05/27/2015 KITTY, BOBAN N Ot 401.9 05/27/2015 KITTY, BOBAN N Ot 521.00 05/27/2015 KITTY, BOBAN N Ot V15.82 05/27/2015 KITTY, BOBAN N Ot V16.3 05/27/2015 KITTY, BOBAN N Ot V45.71 05/27/2015 KITTY, BOBAN N Ot V58.69 05/27/2015 KITTY, HUGO N Ot V86.0 05/27/2015 KITTY, HUGO N Ot 174.9 05/27/2015 KITTY, HUGO N Ot 196.3 05/27/2015 KITTY, HUGO N Ot 250.02 05/27/2015 KITTY, HUGO N Ot 401.9 05/27/2015 KITTY, HUGO N Ot 521.00 05/27/2015 KITTY, HUGO N Ot V15.82 05/27/2015 KITTY, HUGO N Ot V16.3 05/27/2015 KITTY, HUGO N Ot V45.71 05/27/2015 KITTY, HUGO N Ot V58.69 05/27/2015 KITTY, HUGO N Ot V86.0 05/27/2015 CHAVEZSTEFFANIE Kang S 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 Ot 174.9 05/27/2015 CHAVEZ STEFFANIE S 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 Ot 196.3 05/27/2015 CHAVEZ, STEFFANIE S 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 Ot 368.9 05/27/2015 CHAVEZ, STEFFANIE S 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 Ot 401.9 05/27/2015 CHAVEZ, STEFFANIE S 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 Ot 780.4 05/27/2015 CHAVEZ STEFFANIE S 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 Ot V15.82 05/27/2015 CHAVEZ STEFFANIE S 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 Ot V45.71 05/27/2015 CHAVEZSTEFFANIE S 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 Ot V58.67 05/27/2015 CHAVEZSTEFFANIE S 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 Ot V58.69 05/27/2015 CHAVEZ, STEFFANIE S 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 Ot V86.0 05/27/2015 CHAVEZSTEFFANIE S 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 Ot 174.9 05/27/2015 CHAVEZ STEFFANIE S 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 Ot 196.3 05/27/2015 CHAVEZ STEFFANIE S 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 Ot 250.02 05/27/2015 CHAVEZ STEFFANIE S 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 Ot 368.9 05/27/2015 CHAVEZ STEFFANIE S 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 Ot 401.9 05/27/2015 CHAVEZ STEFFANIE S 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 Ot 780.4 05/27/2015 CHAVEZ STEFFANIE S 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 Ot 781.2 05/27/2015 CHAVEZ STEFFANIE S 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 Ot V45.71 05/27/2015 CHAVEZSTEFFANIE Kang 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 Ot V58.67 05/27/2015 CHAVEZSTEFFANIE Kang 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 Ot V58.69 05/27/2015 CHAVEZSTEFFANIE Kang 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 Ot V86.0 05/27/2015 CHAVEZSTEFFANIE Kang 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 Ot 174.9 05/27/2015 CHAVEZSTEFFANIE Kang 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 Ot 196.3 05/27/2015 CHAVEZSTEFFANIE 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 Ot 250.02 05/27/2015 CHAVEZSTEFFANIE S 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 Ot 401.9 05/27/2015 CHAVEZSTEFFANIE Kang 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 Ot V15.82 05/27/2015 CHAVEZSTEFFANIE 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 Ot V45.71 05/27/2015 CHAVEZSTEFFANIE 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 Ot V58.69 05/27/2015 CHAVEZSTEFFANIE Kang 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 Ot V86.0 05/27/2015 PETTY EARL, DARI S Ot 174.9 05/27/2015 PETTY EARL, DARI S Ot V72.83 05/27/2015 PETTY EARL, DARI S Ot V74.8 05/27/2015 KITTY, BOBAN N Ot 174.9 05/27/2015 KITTY, BOBAN N Ot V58.69 05/27/2015 KITTY, BOBAN N Ot V58.83 06/03/2015 KITTY, BOBAN N Ot 174.9 06/03/2015 KITTY, BOBAN N Ot 196.3 06/03/2015 KITTY, BOBAN N Ot 250.02 06/03/2015 KITTY, BOBAN N Ot 401.9 06/03/2015 KITTY, BOBAN N Ot 521.00 06/03/2015 KITTY, BOBAN N Ot V15.82 06/03/2015 KITTY, BOBAN N Ot V16.3 06/03/2015 KITTY, BOBAN N Ot V45.71 06/03/2015 KITTY, BOBAN N Ot V58.69 06/03/2015 KITTY, BOBAN N Ot V86.0 06/03/2015 KITTY, BOBAN N Ot 174.9 06/03/2015 KITTY, BOBAN N Ot 196.3 06/03/2015 KITTY, BOBAN N Ot 250.02 06/03/2015 KITTY, BOBAN N Ot 401.9 06/03/2015 KITTY, HUGO N Ot 521.00 06/03/2015 KITTY, HUGO N Ot V15.82 06/03/2015 KITTY, HUGO N Ot V16.3 06/03/2015 KITTY, HUGO N Ot V45.71 06/03/2015 KITTY, HUGO N Ot V58.69 06/03/2015 KITTY, HUGO N Ot V86.0 06/04/2015 KITTY, BOBMARISSA N Ot 174.9 06/04/2015 KITTY, BOBMARISSA N Ot 196.3 06/04/2015 KITTY, HUGO N Ot 250.02 06/04/2015 KITTY, SANDRAAN N Ot 401.9 06/04/2015 KITTY, HUGO N Ot 521.00 06/04/2015 KITTY, HUGO N Ot V15.82 06/04/2015 KITTY, HUGO N Ot V16.3 06/04/2015 KITTY, HUGO N Ot V45.71 06/04/2015 KITTY, HUGO N Ot V58.69 06/04/2015 KITTY, HUGO N Ot V86.0 06/09/2015 KATHY STEFFANIE S 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 Ot 174.9 06/09/2015 KATHY STEFFANIE S 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 Ot 196.3 06/09/2015 KATHY STEFFANIE S 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 Ot 250.00 06/09/2015 KATHY STEFFANIE S 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 Ot 272.1 06/09/2015 CHAVEZ, STEFFANIE S 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 Ot 272.4 06/09/2015 SHAUN CHAVEZDAYTON S 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 Ot 285.9 06/09/2015 KATHY STEFFANIE S 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 Ot 401.9 06/09/2015 CHAVEZ, SHAUNAH S 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 Ot 412 06/09/2015 CHAVEZ, STEFFANIE S 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 Ot 414.00 06/09/2015 SHAUN CHAVEZDAYTON S 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 Ot V15.82 06/09/2015 STEFFANIE CHAVEZ S 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 Ot V45.71 06/09/2015 CHAVEZ, HILDAYTON S 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 Ot V45.82 06/09/2015 CHAVEZ, HILDAYTON S 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 Ot V58.67 06/09/2015 SHAUN CHAVEZDAYTON S 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 Ot V58.69 06/09/2015 STEFFANIE CHAVEZ 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 Ot V86.0 06/09/2015 STEFFANIE CHAVEZ 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 Ot 174.9 06/09/2015 CHAVEZSTEFFANIE Kang S 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 Ot 196.3 06/09/2015 STEFFANIE CHAVEZ S 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 Ot 250.02 06/09/2015 STEFFANIE CHAVEZ S 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 Ot 272.1 06/09/2015 CHAVEZSTEFFANIE Kang S 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 Ot 272.4 06/09/2015 CHAVEZSTEFFANIE Kang S 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 Ot 285.9 06/09/2015 CHAVEZSTEFFANIE Kang S 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 Ot 401.9 06/09/2015 STEFFANIE CHAVEZ S 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 Ot 412 06/09/2015 STEFFANIE CHAVEZ S 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 Ot 414.00 06/09/2015 STEFFANIE CHAVEZ S 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 Ot 521.00 06/09/2015 STEFFANIE CHAVEZ S 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 Ot V15.82 06/09/2015 STEFFANIE CHAVEZ S 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 Ot V16.3 06/09/2015 STEFFANIE CHAVEZ S 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 Ot V45.71 06/09/2015 CHAVEZSTEFFANIE Kang S 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 Ot V45.82 06/09/2015 STEFFANIE CHAVEZ 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 Ot V58.67 06/09/2015 STEFFANIE CHAVEZ S 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 Ot V58.69 06/09/2015 STEFFANIE CHAVEZ 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 Ot V86.0 06/09/2015 KITTY, BOBAN N Ot 174.9 06/09/2015 KITTY, BOBAN N Ot 196.3 06/09/2015 KITTY, BOBAN N Ot 250.02 06/09/2015 KITTY, BOBAN N Ot 401.9 06/09/2015 KITTY, BOBAN N Ot 521.00 06/09/2015 KITTY, BOBAN N Ot V15.82 06/09/2015 KITTY, BOBAN N Ot V16.3 06/09/2015 KITTY, BOBAN N Ot V45.71 06/09/2015 KITTY, BOBAN N Ot V58.69 06/09/2015 KITTY, BOBAN N Ot V86.0 06/15/2015 KITTY, BOBAN N Ot 174.9 06/15/2015 KITTY, BOBAN N Ot 196.3 06/15/2015 KITTY, BOBAN N Ot 250.02 06/15/2015 HUGO TANG N Ot 401.9 06/15/2015 HUGO TANG N Ot 521.00 06/15/2015 HUGO TANG N Ot V15.82 06/15/2015 HUGO TANG N Ot V16.3 06/15/2015 HUGO TANG N Ot V45.71 06/15/2015 HUGO TANG N Ot V58.69 06/15/2015 HUGO TANG N Ot V86.0 06/18/2015 CHAVEZSTEFFANIE Kang S 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 Ot 174.9 06/18/2015 CHAVEZSTEFFANIE S 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 Ot 196.3 06/18/2015 CHAVEZSTEFFANIE S 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 Ot 250.00 06/18/2015 CHAVEZSTEFFANIE S 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 Ot 272.1 06/18/2015 CHAVEZSTEFFANIE S 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 Ot 272.4 06/18/2015 CHAVEZ, STEFFANIE S 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 Ot 285.9 06/18/2015 CHAVEZSTEFFANIE S 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 Ot 401.9 06/18/2015 CHAVEZSTEFFANIE S 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 Ot 412 06/18/2015 CHAVEZSTEFFANIE S 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 Ot 414.00 06/18/2015 CHAVEZSTEFFANIE Kang S 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 Ot V15.82 06/18/2015 CHAVEZSTEFFANIE S 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 Ot V45.71 06/18/2015 CHAVEZSTEFFANIE S 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 Ot V45.82 06/18/2015 CHAVEZSTEFFANIE S 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 Ot V58.67 06/18/2015 CHAVEZSTEFFANIE S 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 Ot V58.69 06/18/2015 CHAVEZSTEFFANIE Kang S 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 Ot V86.0 06/29/2015 CHAVEZSTEFFANIE S 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 Ot 174.9 06/29/2015 CHAVEZSTEFFANIE S 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 Ot 196.3 06/29/2015 CHAVEZ, STEFFANIE S 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 Ot 250.02 06/29/2015 CHAVEZ, STEFFANIE S 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 Ot 272.1 06/29/2015 CHAVEZ, STEFFANIE S 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 Ot 272.4 06/29/2015 CHAVEZ STEFFANIE S 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 Ot 285.9 06/29/2015 CHAVEZ STEFFANIE S 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 Ot 401.9 06/29/2015 CHAVEZSTEFFANIE Kang 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 Ot 412 06/29/2015 CHAVEZSTEFFANIE S 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 Ot 414.00 06/29/2015 CHAVEZ, STEFFANIE S 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 Ot 521.00 06/29/2015 CHAVEZSTEFFANIE S 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 Ot V15.82 06/29/2015 CHAVEZ, STEFFANIE S 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 Ot V16.3 06/29/2015 CHAVEZ, STEFFANIE S 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 Ot V45.71 06/29/2015 CHAVEZ, STEFFANIE S 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 Ot V45.82 06/29/2015 CHAVEZ, STEFFANIE S 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 Ot V58.67 06/29/2015 CHAVEZ, STEFFANIE S 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 Ot V58.69 06/29/2015 CHAVEZSTEFFANIE S 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 Ot V86.0 07/21/2015 KITTY, BOBAN N Ot 174.9 07/21/2015 KITTY, BOBAN N Ot 196.3 07/21/2015 KITTY, BOBAN N Ot 250.02 07/21/2015 KITTY, BOBAN N Ot 401.9 07/21/2015 KITTY, BOBAN N Ot 521.00 07/21/2015 KITTY, BOBAN N Ot V15.82 07/21/2015 KITTY, BOBAN N Ot V16.3 07/21/2015 KITTY, BOBAN N Ot V45.71 07/21/2015 KITTY, BOBAN N Ot V58.11 07/21/2015 KITTY, BOBAN N Ot V58.69 07/21/2015 KITTY, BOBAN N Ot V86.0 07/21/2015 KITTY, BOBAN N Ot 174.9 07/21/2015 KITTY, BOBAN N Ot 196.3 07/21/2015 KITTY, BOBAN N Ot 250.02 07/21/2015 KITTY, BOBAN N Ot 401.9 07/21/2015 KITTY, BOBAN N Ot 521.00 07/21/2015 KITTY, BOBAN N Ot V15.82 07/21/2015 KITTY, BOBAN N Ot V16.3 07/21/2015 KITTY, BOBAN N Ot V45.71 07/21/2015 KITTY, BOBAN N Ot V58.69 07/21/2015 KITTY, BOBAN N Ot V86.0 07/27/2015 KITTY, BOBAN N Ot 174.9 07/27/2015 KITTY, BOBAN N Ot 196.3 07/27/2015 KITTY, BOBAN N Ot 250.02 07/27/2015 KITTY, BOBAN N Ot 401.9 07/27/2015 KITTY, BOBAN N Ot 521.00 07/27/2015 KITTY, BOBAN N Ot V15.82 07/27/2015 KITTY, BOBAN N Ot V16.3 07/27/2015 KITTY, BOBAN N Ot V45.71 07/27/2015 KITTY, BOBAN N Ot V58.69 07/27/2015 KITTY, BOBAN N Ot V86.0 07/29/2015 KITTY, BOBAN N Ot C50.912 07/29/2015 KITTY, BOBAN N Ot D64.9 07/29/2015 KITTY, BOBAN N Ot E11.9 07/29/2015 KITTY, BOBAN N Ot E78.1 07/29/2015 KITTY, BOBAN N Ot E78.5 07/29/2015 KITTY, BOBAN N Ot I10 07/29/2015 KITTY, BOBAN N Ot I25.10 07/29/2015 KITTY, BOBAN N Ot I25.2 07/29/2015 KITTY, BOBAN N Ot Z17.0 07/29/2015 KITTY, BOBAN N Ot Z51.11 07/29/2015 KITTY, BOBAN N Ot Z72.0 07/29/2015 KITTY, BOBAN N Ot Z79.4 07/29/2015 KITTY, BOBAN N Ot Z79.899 07/29/2015 KITTY, BOBAN N Ot Z90.12 08/11/2015 MARTY JAVED Ot C50.912 08/11/2015 MARTY JAVED Ot E11.9 08/11/2015 MARTY JAVED Ot J18.9 08/11/2015 MARTY JAVED Ot Z79.4 08/11/2015 MARTY JAVED Ot Z79.899 08/11/2015 MARTY JAVED Ot Z90.12 08/23/2015 PETTY EARL, DARI Kang Ot 174.9 08/23/2015 PETTY EARL, DARI S Ot V72.83 08/23/2015 PETTY EARL, DARI S Ot V74.8 08/23/2015 CHAVEZSTEFFANIE Kang S 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 Ot 174.9 08/23/2015 CHAVEZSTEFFANIE Kang S 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 Ot 196.3 08/23/2015 CHAVEZSTEFFANIE Kang S 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 Ot 250.02 08/23/2015 CHAVEZSTEFFANIE S 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 Ot 401.9 08/23/2015 CHAVEZSTEFFANIE S 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 Ot V15.82 08/23/2015 CHAVEZSTEFFANIE Kang S 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 Ot V45.71 08/23/2015 CHAVEZSTEFFANIE Kang S 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 Ot V58.69 08/23/2015 KATHY STEFFANIE S 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 Ot V86.0 08/23/2015 CHAVEZSTEFFANIE S 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 Ot 174.9 08/23/2015 KATHY STEFFANIE S 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 Ot 196.3 08/23/2015 KATHY STEFFANIE S 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 Ot 250.02 08/23/2015 KATHY STEFFANIE S 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 Ot 368.9 08/23/2015 CHAVEZSTEFFANIE Kang S 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 Ot 401.9 08/23/2015 CHAVEZSTEFFANIE Kang S 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 Ot 780.4 08/23/2015 CHAVEZ STEFFANIE S 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 Ot 781.2 08/23/2015 CHAVEZSTEFFANIE Kang S 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 Ot V45.71 08/23/2015 CHAVEZSTEFFANIE S 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 Ot V58.67 08/23/2015 KATHY STEFFANIE S 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 Ot V58.69 08/23/2015 CHAVEZSTEFFANIE Kang S 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 Ot V86.0 08/23/2015 CHAVEZSTEFFANIE Kang S 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 Ot 174.9 08/23/2015 CHAVEZSTEFFANIE Kang S 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 Ot 780.4 08/23/2015 KATHY STEFFANIE S 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 Ot 781.2 08/23/2015 KATHY STEFFANIE S 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 Ot 174.9 08/23/2015 CHAVEZSTEFFANIE S 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 Ot 196.3 08/23/2015 CHAVEZ, STEFFANIE S 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 Ot 368.9 08/23/2015 KATHY STEFFANIE S 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 Ot 401.9 08/23/2015 KATHY STEFFANIE S 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 Ot 780.4 08/23/2015 STEFFANIE CHAVEZ 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 Ot V15.82 08/23/2015 CHAVEZSTEFFANIE Kang S 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 Ot V45.71 08/23/2015 STEFFANIE CHAVEZ S 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 Ot V58.67 08/23/2015 STEFFANIE CHAVEZ S 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 Ot V58.69 08/23/2015 CHAVEZSTEFFANIE Kang S 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 Ot V86.0 08/23/2015 CHAVEZSTEFFANIE S 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 Ot 174.9 08/23/2015 CHAVEZSTEFFANIE Kang S 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 Ot 196.3 08/23/2015 CHAVEZSTEFFANIE Kang S 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 Ot 250.00 08/23/2015 CHAVEZSTEFFANIE Kang S 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 Ot 272.1 08/23/2015 CHAVEZSTEFFANIE S 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 Ot 272.4 08/23/2015 CHAVEZSTEFFANIE Kang S 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 Ot 285.9 08/23/2015 CHAVEZSTEFFANIE S 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 Ot 401.9 08/23/2015 KATHYSTEFFANIE S 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 Ot 412 08/23/2015 CHAVEZSTEFFANIE Kang S 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 Ot 414.00 08/23/2015 CHAVEZSTEFFANIE Kang S 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 Ot V15.82 08/23/2015 CHAVEZSTEFFANIE Kang S 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 Ot V45.71 08/23/2015 CHAVEZSTEFFANIE Kang S 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 Ot V45.82 08/23/2015 STEFFANIE CHAVEZ S 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 Ot V58.67 08/23/2015 CHAVEZSTEFFANIE Kang S 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 Ot V58.69 08/23/2015 CHAVEZSTEFFANIE Kang S 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 Ot V86.0 08/23/2015 CHAVEZSTEFFANIE Kang S 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 Ot 174.9 08/23/2015 CHAVEZSTEFFANIE Kang S 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 Ot 196.3 08/23/2015 CHAVEZSTEFFANIE Kang S 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 Ot 250.02 08/23/2015 CHAVEZSTEFFANIE S TUMBLER PLATER Ot 272.1 08/23/2015 CHAVEZSTEFFANIE S TUMBLER PLATER Ot 272.4 08/23/2015 CHAVEZSTEFFANIE S TUMBLER PLATER Ot 285.9 08/23/2015 KATHY STEFFANIE S TUMBLER PLATER Ot 401.9 08/23/2015 KATHY STEFFANIE S TUMBLER PLATER Ot 412 08/23/2015 KATHY STEFFANIE S TUMBLER PLATER Ot 414.00 08/23/2015 STEFFANIE CHAVEZ TUMBLER PLATER Ot 521.00 08/23/2015 STEFFANIE CHAVEZ S TUMBLER PLATER Ot V15.82 08/23/2015 STEFFANIE CHAVEZ S TUMBLER PLATER Ot V16.3 08/23/2015 STEFFANIE CHAVEZ S TUMBLER PLATER Ot V45.71 08/23/2015 STEFFANIE CHAVEZ S TUMBLER PLATER Ot V45.82 08/23/2015 STEFFANIE CHAVEZ S TUMBLER PLATER Ot V58.67 08/23/2015 CHAVEZSTEFFANIE Kang S TUMBLER PLATER Ot V58.69 08/23/2015 STEFFANIE CHAVEZ S TUMBLER PLATER Ot V86.0 08/23/2015 STEFFANIE CHAVEZ S TUMBLER PLATER Ot 174.9 08/23/2015 STEFFANIE CHAVEZ S TUMBLER PLATER Ot 196.3 08/23/2015 STEFFANIE CHAVEZ S TUMBLER PLATER Ot 250.00 08/23/2015 STEFFANIE CHAVEZ S TUMBLER PLATER Ot 272.1 08/23/2015 STEFFANIE CHAVEZ S TUMBLER PLATER Ot 272.4 08/23/2015 STEFFANIE CHAVEZ S TUMBLER PLATER Ot 285.9 08/23/2015 STEFFANIE CHVAEZ S TUMBLER PLATER Ot 357.6 08/23/2015 STEFFANIE CHAVEZ S TUMBLER PLATER Ot 401.9 08/23/2015 STEFFANIE CHAVEZ S TUMBLER PLATER Ot 412 08/23/2015 STEFFANIE CHAVEZ S TUMBLER PLATER Ot 414.00 08/23/2015 STEFFANIE CHAVEZ S TUMBLER PLATER Ot E849.7 08/23/2015 STEFFANIE CHAVEZ S TUMBLER PLATER Ot E933.1 08/23/2015 STEFFANIE CHAVEZ S TUMBLER PLATER Ot V15.82 08/23/2015 STEFFANIE CHAVEZ S TUMBLER PLATER Ot V16.3 08/23/2015 STEFFANIE CHAVEZ S TUMBLER PLATER Ot V45.71 08/23/2015 CHAVEZSTEFFANIE Kang S TUMBLER PLATER Ot V45.82 08/23/2015 CHAVEZSTEFFANIE Kang S TUMBLER PLATER Ot V58.69 08/23/2015 CHAVEZSTEFFANIE Kang S TUMBLER PLATER Ot V86.0 08/23/2015 HUGO TANG Ot C50.912 08/23/2015 HUGO TANG Ot D64.9 08/23/2015 HUGO TANG Ot E11.9 08/23/2015 KITTY, BOBAN N Ot E78.1 08/23/2015 KITTY, BOBAN N Ot E78.5 08/23/2015 KITTY, BOBAN N Ot I10 08/23/2015 KITTY, BOBAN N Ot I25.10 08/23/2015 KITTY, BOBAN N Ot I25.2 08/23/2015 KITTY, BOBAN N Ot Z17.0 08/23/2015 KITTY, BOBAN N Ot Z51.11 08/23/2015 KITTY, SANDRAAN N Ot Z72.0 08/23/2015 KITTY, BOBAN N Ot Z79.4 08/23/2015 KITTY, BOBAN N Ot Z79.899 08/23/2015 KITTY, BOBAN N Ot Z90.12 08/23/2015 ENRRIQUE FUENTES TUMBLER PLATER Ot J18.9 08/25/2015 KITTY, BOBAN N Ot C50.919 08/25/2015 KITTY, BOBAN N Ot Z51.81 08/26/2015 KITTY, BOBAN N Ot C50.912 08/26/2015 KITTY, SANDRAAN N Ot D64.9 08/26/2015 KITTY, BOBAN N Ot E11.9 08/26/2015 KITTY, BOBAN N Ot E78.1 08/26/2015 KITTY, BOBAN N Ot E78.5 08/26/2015 KITTY, BOBAN N Ot I10 08/26/2015 KITTY, BOBAN N Ot I25.10 08/26/2015 KITTY, BOBAN N Ot I25.2 08/26/2015 KITTY, BOBAN N Ot Z17.0 08/26/2015 KITTY, BOBAN N Ot Z51.11 08/26/2015 KITTY, BOBAN N Ot Z72.0 08/26/2015 KITTY, BOBAN N Ot Z79.4 08/26/2015 KITTY, BOBAN N Ot Z79.899 08/26/2015 KITTY, BOBAN N Ot Z90.12 08/30/2015 ENRRIQUE FUENTES TUMBLER PLATER Ot J18.9 08/31/2015 STEFFANIE CHAVEZ TUMBLER PLATER Ot 174.9 08/31/2015 STEFFANIE CHAVEZ TUMBLER PLATER Ot 196.3 08/31/2015 STEFFANIE CHAVEZ TUMBLER PLATER Ot 250.00 08/31/2015 STEFFANIE CHAVEZ S TUMBLER PLATER Ot 272.1 08/31/2015 STEFFANIE CHAVEZ S TUMBLER PLATER Ot 272.4 08/31/2015 STEFFANIE CHAVEZ S TUMBLER PLATER Ot 285.9 08/31/2015 STEFFANIE CHAVEZ S TUMBLER PLATER Ot 357.6 08/31/2015 STEFFANIE CHAVEZ S TUMBLER PLATER Ot 401.9 08/31/2015 STEFFANIE CHAVEZ S TUMBLER PLATER Ot 412 08/31/2015 STEFFANIE CHAVEZ S TUMBLER PLATER Ot 414.00 08/31/2015 STEFFANIE CHAVEZ S TUMBLER PLATER Ot E849.7 08/31/2015 STEFFANIE CHAVEZ S TUMBLER PLATER Ot E933.1 08/31/2015 STEFFANIE CHAVEZ S TUMBLER PLATER Ot V15.82 08/31/2015 STEFFANIE CHAVEZ S TUMBLER PLATER Ot V16.3 08/31/2015 STEFFANIE CHAVEZ S TUMBLER PLATER Ot V45.71 08/31/2015 STEFFANIE CHAVEZ S TUMBLER PLATER Ot V45.82 08/31/2015 STEFFANIE CHAVEZ TUMBLER PLATER Ot V58.69 08/31/2015 STEFFANIE CHAVEZ TUMBLER PLATER Ot V86.0 09/06/2015 KITTYSANDRA LUJANAN N Ot C50.919 09/06/2015 KITTY, BOBAN N Ot Z51.81 09/23/2015 KITTY BOBAN N Ot C50.912 09/23/2015 KITTY, BOBAN N Ot D64.9 09/23/2015 KITTY, BOBAN N Ot E11.9 09/23/2015 KITTY, BOBAN N Ot E78.1 09/23/2015 KITTY, BOBAN N Ot E78.5 09/23/2015 KITTY, BOBAN N Ot I10 09/23/2015 KITTY, BOBAN N Ot I25.10 09/23/2015 KITTY, BOBAN N Ot I25.2 09/23/2015 KITTY, BOBAN N Ot Z17.0 09/23/2015 KITTY, BOBAN N Ot Z51.11 09/23/2015 KITTY, BOBAN N Ot Z72.0 09/23/2015 KITTY, BOBAN N Ot Z79.4 09/23/2015 KITTY, SANDRAMARISSA N Ot Z79.899 09/23/2015 KITTY, HUGO N Ot Z90.12 10/11/2015 SREEKANTH COOLEY Ot C50.919 10/11/2015 SREEKANTH COOLEY Ot E78.5 10/11/2015 SREEKANTH COOLEY Ot I10 10/20/2015 KITTY, HUGO N Ot 174.9 10/20/2015 KITTY, BOBAN N Ot 250.00 10/20/2015 KITTY, SANDRAAN N Ot 272.1 10/20/2015 KITTY, HUGO N Ot 272.4 10/20/2015 KITTY, HUGO N Ot 285.9 10/20/2015 KITTY, HUGO N Ot 412 10/20/2015 KITTY, HUGO N Ot C50.912 10/20/2015 KITTY, HUGO N Ot D64.9 10/20/2015 KITTY, SANDRAAN N Ot E11.9 10/20/2015 KITTY, BOBAN N Ot E78.1 10/20/2015 KITTY, BOBAN N Ot E78.5 10/20/2015 KITTY, BOBAN N Ot I10 10/20/2015 KITTY, BOBAN N Ot I25.10 10/20/2015 KITTY, BOBAN N Ot I25.2 10/20/2015 KITTY, BOBAN N Ot V45.71 10/20/2015 KITTY, SANDRAAN N Ot V58.11 10/20/2015 KITTY, BOBAN N Ot V58.67 10/20/2015 KITTY, BOBAN N Ot V58.69 10/20/2015 KITTY, BOBAN N Ot V69.8 10/20/2015 KITTY, BOBAN N Ot V86.0 10/20/2015 KITTY, BOBAN N Ot Z17.0 10/20/2015 KITTY, BOBAN N Ot Z51.0 10/20/2015 KITTY, BOBAN N Ot Z51.11 10/20/2015 KITTY, BOBAN N Ot Z72.0 10/20/2015 KITTY, BOBAN N Ot Z79.4 10/20/2015 KITTY, BOBAN N Ot Z79.899 10/20/2015 KITTY, BOBAN N Ot Z90.12 11/17/2015 KITTY, BOBAN N Ot C50.912 11/17/2015 KITTY, BOBAN N Ot D64.9 11/17/2015 KITTY, BOBAN N Ot E11.9 11/17/2015 KITTY, BOBAN N Ot E78.1 11/17/2015 KITTY, BOBAN N Ot E78.5 11/17/2015 KITTY, BOBAN N Ot I10 11/17/2015 KITTY, BOBAN N Ot I25.10 11/17/2015 KITTY, BOBAN N Ot I25.2 11/17/2015 KITTY, BOBAN N Ot Z17.0 11/17/2015 KITTY, BOBAN N Ot Z51.11 11/17/2015 KITTY, BOBAN N Ot Z72.0 11/17/2015 KITTY, BOBAN N Ot Z79.4 11/17/2015 KITTY, BOBAN N Ot Z79.899 11/17/2015 KITTY, BOBAN N Ot Z90.12 11/29/2015 KITTY, BOBAN N Ot C50.912 11/29/2015 KITTY, BOBAN N Ot D64.9 11/29/2015 KITTY, BOBAN N Ot E11.9 11/29/2015 KITTY, BOBAN N Ot E78.1 11/29/2015 KITTY, BOBAN N Ot E78.5 11/29/2015 KITTY, BOBAN N Ot I10 11/29/2015 KITTY, BOBAN N Ot I25.10 11/29/2015 KITTY, BOBAN N Ot I25.2 11/29/2015 KITTY, BOBAN N Ot Z17.0 11/29/2015 KITTY, BOBAN N Ot Z51.0 11/29/2015 KITTY, BOBAN N Ot Z72.0 11/29/2015 KITTY, BOBAN N Ot Z79.4 11/29/2015 KITTY, BOBAN N Ot Z79.899 11/29/2015 KITTY, BOBAN N Ot Z90.12 11/30/2015 KITTY, BOBAN N Ot C50.912 11/30/2015 KITTY, BOBAN N Ot D64.9 11/30/2015 KITTY, SANDRAAN N Ot E11.9 11/30/2015 KITTY, BOBAN N Ot E78.1 11/30/2015 KITTY, BOBAN N Ot E78.5 11/30/2015 KITTY, BOBAN N Ot I10 11/30/2015 KITTY, BOBAN N Ot I25.10 11/30/2015 KITTY, BOBAN N Ot I25.2 11/30/2015 KITTY, BOBAN N Ot Z17.0 11/30/2015 KITTY, BOBAN N Ot Z51.0 11/30/2015 KITTY, BOBAN N Ot Z72.0 11/30/2015 KITTY, BOBAN N Ot Z79.4 11/30/2015 KITTY, BOBAN N Ot Z79.899 11/30/2015 KITTY, BOBAN N Ot Z90.12 12/06/2015 KATHY STEFFANIE S TUMBLER PLATER Ot C50.912 12/09/2015 KATHY STEFFANIE S TUMBLER PLATER Ot Z51.81 12/09/2015 KATHY STEFFANIE S TUMBLER PLATER Ot Z79.899 12/15/2015 KATHY STEFFANIE S TUMBLER PLATER Ot C50.112 12/15/2015 KATHY STEFFANIE S TUMBLER PLATER Ot D64.9 12/15/2015 KATHY STEFFANIE S TUMBLER PLATER Ot E11.22 12/15/2015 KATHY STEFFANIE S TUMBLER PLATER Ot E78.1 12/15/2015 KATHY STEFFANIE S TUMBLER PLATER Ot E78.5 12/15/2015 KATHY STEFFANIE S TUMBLER PLATER Ot I12.9 12/15/2015 KATHY STEFFANIE S TUMBLER PLATER Ot I25.10 12/15/2015 KATHY STEFFANIE S TUMBLER PLATER Ot I25.2 12/15/2015 KATHY STEFFANIE S TUMBLER PLATER Ot N18.3 12/15/2015 KATHY STEFFANIE S TUMBLER PLATER Ot Z17.0 12/15/2015 KATHY STEFFANIE S TUMBLER PLATER Ot Z79.4 12/15/2015 KATHY STEFFANIE S TUMBLER PLATER Ot Z79.899 12/15/2015 SHAUN CHAVEZDAYTON S TUMBLER PLATER Ot Z87.891 12/15/2015 SHAUN CHAVEZDAYTON S TUMBLER PLATER Ot Z90.12 12/23/2015 PETTY EARL, DARI S Ot 174.9 12/23/2015 PETTY EARL, DARI S Ot V72.83 12/23/2015 PETTY EARL, DARI S Ot V74.8 12/23/2015 CHAVEZSTEFFANIE Kang S TUMBLER PLATER Ot 174.9 12/23/2015 CHAVEZSTEFFANIE Kang S TUMBLER PLATER Ot 196.3 12/23/2015 CHAVEZSTEFFANIE Kang S TUMBLER PLATER Ot 250.02 12/23/2015 CHAVEZSTEFFANIE Kang S TUMBLER PLATER Ot 401.9 12/23/2015 CHAVEZSTEFFANIE Kang S TUMBLER PLATER Ot V15.82 12/23/2015 CHAVEZSTEFFANIE S TUMBLER PLATER Ot V45.71 12/23/2015 CHAVEZSTEFFANIE Kang S TUMBLER PLATER Ot V58.69 12/23/2015 CHAVEZSTEFFANIE Kang S TUMBLER PLATER Ot V86.0 12/23/2015 CHAVEZSTEFFANIE S TUMBLER PLATER Ot 174.9 12/23/2015 CHAVEZSTEFFANIE S TUMBLER PLATER Ot 196.3 12/23/2015 CHAVEZSTEFFANIE Kang S TUMBLER PLATER Ot 250.02 12/23/2015 CHAVEZSTEFFANIE Kang S TUMBLER PLATER Ot 368.9 12/23/2015 CHAVEZSTEFFANIE Kang S TUMBLER PLATER Ot 401.9 12/23/2015 CHAVEZSTEFFANIE Kang S TUMBLER PLATER Ot 780.4 12/23/2015 CHAVEZSTEFFANIE Kang S TUMBLER PLATER Ot 781.2 12/23/2015 CHAVEZSTEFFANIE Kang S TUMBLER PLATER Ot V45.71 12/23/2015 CHAVEZSTEFFANIE Kang S TUMBLER PLATER Ot V58.67 12/23/2015 CHAVEZSTEFFANIE Kang S TUMBLER PLATER Ot V58.69 12/23/2015 CHAVEZSTEFFANIE Kang S TUMBLER PLATER Ot V86.0 12/23/2015 CHAVEZSTEFFANIE S TUMBLER PLATER Ot 174.9 12/23/2015 CHAVEZSTEFFANIE S TUMBLER PLATER Ot 780.4 12/23/2015 CHAVEZSTEFFANIE S TUMBLER PLATER Ot 781.2 12/23/2015 CHAVEZSTEFFANIE S TUMBLER PLATER Ot 174.9 12/23/2015 CHVAEZSTEFFANIE S TUMBLER PLATER Ot 196.3 12/23/2015 CHAVEZ STEFFANIE S TUMBLER PLATER Ot 368.9 12/23/2015 CHAVEZ STEFFANIE S TUMBLER PLATER Ot 401.9 12/23/2015 STEFFANIE CHAVEZ S TUMBLER PLATER Ot 780.4 12/23/2015 CHAVEZSTEFFANIE Kang S TUMBLER PLATER Ot V15.82 12/23/2015 STEFFANIE CHAVEZ S TUMBLER PLATER Ot V45.71 12/23/2015 CHAVEZSTEFFANIE Kang S TUMBLER PLATER Ot V58.67 12/23/2015 CHAVEZSTEFFANIE Kang S TUMBLER PLATER Ot V58.69 12/23/2015 CHAVEZ, HIL S TUMBLER PLATER Ot V86.0 12/23/2015 CHAVEZ, HIL S TUMBLER PLATER Ot 174.9 12/23/2015 CHAVEZ, HIL S TUMBLER PLATER Ot 196.3 12/23/2015 CHAVEZ, [facility] S TUMBLER PLATER Ot 250.00 12/23/2015 CHAVEZSTEFFANIE Kang S TUMBLER PLATER Ot 272.1 12/23/2015 CHAVEZ, HIL S TUMBLER PLATER Ot 272.4 12/23/2015 CHAVEZ, HIL S TUMBLER PLATER Ot 285.9 12/23/2015 CHAVEZSTEFFANIE Kang S TUMBLER PLATER Ot 401.9 12/23/2015 CHAVEZSTEFFANIE Kang S TUMBLER PLATER Ot 412 12/23/2015 CHAVEZSTEFFANIE Kang S TUMBLER PLATER Ot 414.00 12/23/2015 CHAVEZSTEFFANIE Kang S TUMBLER PLATER Ot V15.82 12/23/2015 STEFFANIE CHAVEZ S TUMBLER PLATER Ot V45.71 12/23/2015 CHAVEZSTEFFANIE Kang S TUMBLER PLATER Ot V45.82 12/23/2015 CHAVEZ, HIL S TUMBLER PLATER Ot V58.67 12/23/2015 CHAVEZSTEFFANIE Kang S TUMBLER PLATER Ot V58.69 12/23/2015 CHAVEZ, HIL S TUMBLER PLATER Ot V86.0 12/23/2015 CHAVEZ, HIL S TUMBLER PLATER Ot 174.9 12/23/2015 CHAVEZ, [facility] S TUMBLER PLATER Ot 196.3 12/23/2015 CHAVEZ, [facility] S TUMBLER PLATER Ot 250.02 12/23/2015 CHAVEZ, HIL S TUMBLER PLATER Ot 272.1 12/23/2015 CHAVEZSHAUN S TUMBLER PLATER Ot 272.4 12/23/2015 CHAVEZSHAUN S TUMBLER PLATER Ot 285.9 12/23/2015 CHAVEZSHAUN S TUMBLER PLATER Ot 401.9 12/23/2015 CHAVEZSTEFFANIE Kang S TUMBLER PLATER Ot 412 12/23/2015 CHAVEZSTEFFANIE Kang S TUMBLER PLATER Ot 414.00 12/23/2015 CHAVEZSTEFFANIE Kang S TUMBLER PLATER Ot 521.00 12/23/2015 CHAVEZSTEFFANIE Kang S TUMBLER PLATER Ot V15.82 12/23/2015 CHAVEZSTEFFANIE S TUMBLER PLATER Ot V16.3 12/23/2015 CHAVEZSTEFFANIE S TUMBLER PLATER Ot V45.71 12/23/2015 CHAVEZSTEFFANIE S TUMBLER PLATER Ot V45.82 12/23/2015 CHAVEZSTEFFANIE S TUMBLER PLATER Ot V58.67 12/23/2015 CHAVEZSTEFFANIE S TUMBLER PLATER Ot V58.69 12/23/2015 CHAVEZSTEFFANIE S TUMBLER PLATER Ot V86.0 12/23/2015 CHAVEZSTEFFANIE Kang S TUMBLER PLATER Ot 174.9 12/23/2015 CHAVEZSTEFFANIE S TUMBLER PLATER Ot 196.3 12/23/2015 CHAVEZSTEFFANIE Kang S TUMBLER PLATER Ot 250.00 12/23/2015 CHAVEZSTEFFANIE Kang S TUMBLER PLATER Ot 272.1 12/23/2015 CHAVEZSTEFFANIE Kang S TUMBLER PLATER Ot 272.4 12/23/2015 CHAVEZSTEFFANIE Kang S TUMBLER PLATER Ot 285.9 12/23/2015 CHAVEZSTEFFANIE Kang S TUMBLER PLATER Ot 357.6 12/23/2015 CHAVEZSTEFFANIE Kang S TUMBLER PLATER Ot 401.9 12/23/2015 CHAVEZSTEFFANIE Kang S TUMBLER PLATER Ot 412 12/23/2015 CHAVEZSTEFFANIE Kang S TUMBLER PLATER Ot 414.00 12/23/2015 CHAVEZSTEFFANIE Kang S TUMBLER PLATER Ot E849.7 12/23/2015 CHAVEZSTFEFANIE Kang S TUMBLER PLATER Ot E933.1 12/23/2015 CHAVEZSTEFFANIE Kang S TUMBLER PLATER Ot V15.82 12/23/2015 CHAVEZSTEFFANIE S TUMBLER PLATER Ot V16.3 12/23/2015 CHAVEZSTEFFANIE S TUMBLER PLATER Ot V45.71 12/23/2015 CHAVEZSTEFFANIE S TUMBLER PLATER Ot V45.82 12/23/2015 CHAVEZSTEFFANIE S TUMBLER PLATER Ot V58.69 12/23/2015 CHAVEZSTEFFANIE S TUMBLER PLATER Ot V86.0 12/23/2015 HUGO TANG Ot C50.919 12/23/2015 KITTY, BOBAN N Ot Z51.81 12/23/2015 ENRRIQUE FUENTES TUMBLER PLATER Ot J18.9 12/23/2015 SREEKANTH COOLEY Ot C50.919 12/23/2015 SREEKANTH COOLEY Ot E78.5 12/23/2015 SREEKANTH COOLEY Ot I10 12/23/2015 KITTY, HUGO N Ot C50.912 12/23/2015 KITTY, BOBAN N Ot D64.9 12/23/2015 KITTY, BOBAN N Ot E11.9 12/23/2015 KITTY, BOBAN N Ot E78.1 12/23/2015 KITTY, BOBAN N Ot E78.5 12/23/2015 KITTY, BOBAN N Ot I10 12/23/2015 KITTY, BOBAN N Ot I25.10 12/23/2015 KITTY, BOBAN N Ot I25.2 12/23/2015 KITTY, BOBAN N Ot Z17.0 12/23/2015 KITTY, BOBAN N Ot Z51.0 12/23/2015 KITTY, BOBAN N Ot Z72.0 12/23/2015 KITTY, BOBAN N Ot Z79.4 12/23/2015 KITTY, BOBAN N Ot Z79.899 12/23/2015 KITTY, BOBAN N Ot Z90.12 12/23/2015 STEFFANIE CHAVEZ TUMBLER PLATER Ot C50.912 12/23/2015 STEFFANIE CHAVEZ TUMBLER PLATER Ot Z51.81 12/23/2015 STEFFANIE CHAVEZ S TUMBLER PLATER Ot Z79.899 12/23/2015 STEFFANIE CHAVEZ S TUMBLER PLATER Ot C50.112 12/23/2015 STEFFANIE CHAVEZ S TUMBLER PLATER Ot D64.9 12/23/2015 STEFFANIE CHAVEZ S TUMBLER PLATER Ot E11.22 12/23/2015 STEFFANIE CHAVEZ TUMBLER PLATER Ot E78.1 12/23/2015 STEFFANIE CHAVEZ S TUMBLER PLATER Ot E78.5 12/23/2015 STEFFANIE CHAVEZ S TUMBLER PLATER Ot I12.9 12/23/2015 STEFFANIE CHAVEZ S TUMBLER PLATER Ot I25.10 12/23/2015 STEFFANIE CHAVEZ TUMBLER PLATER Ot I25.2 12/23/2015 CHAVEZSTEFFANIE Kang TUMBLER PLATER Ot N18.3 12/23/2015 CHAVEZSTEFFANIE Kang TUMBLER PLATER Ot Z17.0 12/23/2015 CHAVEZSTEFFANIE Kang TUMBLER PLATER Ot Z79.4 12/23/2015 STEFFANIE CHAVEZ TUMBLER PLATER Ot Z79.899 12/23/2015 CHAVEZSTEFFANIE Kang TUMBLER PLATER Ot Z87.891 12/23/2015 CHAVEZSTEFFANIE Kang TUMBLER PLATER Ot Z90.12 12/28/2015 KITTY, BOBAN N Ot C50.912 12/28/2015 KITTY, BOBAN N Ot D64.9 12/28/2015 KITTY, BOBAN N Ot E11.9 12/28/2015 KITTY, BOBAN N Ot E78.1 12/28/2015 KITTY, BOBAN N Ot E78.5 12/28/2015 KITTY, BOBAN N Ot I10 12/28/2015 KITTY, BOBAN N Ot I25.10 12/28/2015 KITTY, BOBAN N Ot I25.2 12/28/2015 KITTY, BOBAN N Ot Z17.0 12/28/2015 KITTY, BOBAN N Ot Z51.0 12/28/2015 KITTY, BOBAN N Ot Z72.0 12/28/2015 KITTY, BOBAN N Ot Z79.4 12/28/2015 KITTY, BOBAN N Ot Z79.899 12/28/2015 KITTY, BOBAN N Ot Z90.12 12/28/2015 PETTY EARL, DARI S Ot 174.9 12/28/2015 PETTY EARL, DARI S Ot V72.83 12/28/2015 PETTY EARL, DARI S Ot V74.8 12/28/2015 CHAVEZSTEFFANIE Kang TUMBLER PLATER Ot 174.9 12/28/2015 CHAVEZSTEFFANIE Kang S TUMBLER PLATER Ot 196.3 12/28/2015 CHAVEZSTEFFANIE Kang S TUMBLER PLATER Ot 250.02 12/28/2015 CHAVEZSTEFFANIE TUMBLER PLATER Ot 401.9 12/28/2015 CHAVEZSTEFFANIE TUMBLER PLATER Ot V15.82 12/28/2015 CHAVEZSTEFFANIE S TUMBLER PLATER Ot V45.71 12/28/2015 STEFFANIE CHAVEZ S TUMBLER PLATER Ot V58.69 12/28/2015 CHAVEZSTEFFANIE Kang S TUMBLER PLATER Ot V86.0 12/28/2015 CHAVEZSTEFFANIE Kang S TUMBLER PLATER Ot 174.9 12/28/2015 CHAVEZSTEFFANIE Kang S TUMBLER PLATER Ot 196.3 12/28/2015 CHAVEZ, HIL S TUMBLER PLATER Ot 250.02 12/28/2015 CHAVEZ, [facility] S TUMBLER PLATER Ot 368.9 12/28/2015 CHAVEZ, HIL S TUMBLER PLATER Ot 401.9 12/28/2015 CHAVEZ, [facility] S TUMBLER PLATER Ot 780.4 12/28/2015 CHAVEZ, [facility] S TUMBLER PLATER Ot 781.2 12/28/2015 CHAVEZ, [facility] S TUMBLER PLATER Ot V45.71 12/28/2015 CHAVEZ, [facility] S TUMBLER PLATER Ot V58.67 12/28/2015 [facility] Ot V58.69 12/28/2015 CHAVEZ, [facility] S TUMBLER PLATER Ot V86.0 12/28/2015 CHAVEZ, [facility] S TUMBLER PLATER Ot 174.9 12/28/2015 CHAVEZ, [facility] S TUMBLER PLATER Ot 780.4 12/28/2015 CHAVEZ, [facility] S TUMBLER PLATER Ot 781.2 12/28/2015 CHAVEZSTEFFANIE Kang S TUMBLER PLATER Ot 174.9 12/28/2015 CHAVEZ, HIL S TUMBLER PLATER Ot 196.3 12/28/2015 CHAVEZSTEFFANIE Kang S TUMBLER PLATER Ot 368.9 12/28/2015 [facility] TUM[facility] PL[facility] Ot 401.9 12/28/2015 CHAVEZ, [facility] S TUMBLER PLATER Ot 780.4 12/28/2015 CHAVEZ, [facility] S TUMBLER PLATER Ot V15.82 12/28/2015 CHAVEZ, [facility] S TUMBLER PLATER Ot V45.71 12/28/2015 CHAVEZ [facility] S TUMBLER PLATER Ot V58.67 12/28/2015 CHAVEZ [facility] S TUMBLER PLATER Ot V58.69 12/28/2015 CHAVEZ, [facility] S TUMBLER PLATER Ot V86.0 12/28/2015 CHAVEZ [facility] S TUMBLER PLATER Ot 174.9 12/28/2015 [facility]Z [facility] [facility] S TUMBLER PLATER Ot 196.3 12/28/2015 CHAVEZ HILAH S TUMBLER PLATER Ot 250.00 12/28/2015 CHAVEZSTEFFANIE Kang S TUMBLER PLATER Ot 272.1 12/28/2015 CHAVEZSTEFFANIE Kang S TUMBLER PLATER Ot 272.4 12/28/2015 CHAVEZSTEFFANIE Kang S TUMBLER PLATER Ot 285.9 12/28/2015 CHAVEZSTEFFANIE Kang S TUMBLER PLATER Ot 401.9 12/28/2015 CHAVEZSTEFFANIE Kang S TUMBLER PLATER Ot 412 12/28/2015 CHAVEZ [facility] S TUMBLER PLATER Ot 414.00 12/28/2015 CHAVEZSHAUN S TUMBLER PLATER Ot V15.82 12/28/2015 CHAVEZ [facility] S TUMBLER PLATER Ot V45.71 12/28/2015 CHAVEZ [facility] S TUMBLER PLATER Ot V45.82 12/28/2015 CHAVEZ [facility] S TUMBLER PLATER Ot V58.67 12/28/2015 CHAVEZSHAUN S TUMBLER PLATER Ot V58.69 12/28/2015 CHAVEZ, [facility] S TUMBLER PLATER Ot V86.0 12/28/2015 CHAVEZ, [facility] S TUMBLER PLATER Ot 174.9 12/28/2015 CHAVEZ, [facility] S TUMBLER PLATER Ot 196.3 12/28/2015 CHAVEZSTEFFANIE Kang S TUMBLER PLATER Ot 250.02 12/28/2015 CHAVEZSTEFFANIE Kang S TUMBLER PLATER Ot 272.1 12/28/2015 CHAVEZSTEFFANIE Kang S TUMBLER PLATER Ot 272.4 12/28/2015 CHAVEZ, HIL S TUMBLER PLATER Ot 285.9 12/28/2015 CHAVEZ, HIL S TUMBLER PLATER Ot 401.9 12/28/2015 [facility] Ot 412 12/28/2015 CHAVEZ, [facility] S TUMBLER PLATER Ot 414.00 12/28/2015 CHAVEZ [facility] S TUMBLER PLATER Ot 521.00 12/28/2015 CHAVEZ [facility] S TUMBLER PLATER Ot V15.82 12/28/2015 CHAVEZ [facility] S TUMBLER PLATER Ot V16.3 12/28/2015 CHAVEZ [facility] S TUMBLER PLATER Ot V45.71 12/28/2015 CHAVEZSHAUN S TUMBLER PLATER Ot V45.82 12/28/2015 CHAVEZ [facility] S TUMBLER PLATER Ot V58.67 12/28/2015 CHAVEZ, [facility] S TUMBLER PLATER Ot V58.69 12/28/2015 CHAVEZ, HILAH S TUMBLER PLATER Ot V86.0 12/28/2015 SETFFANIE CHAVEZ S TUMBLER PLATER Ot 174.9 12/28/2015 CHAVEZSTEFFANIE Kang S TUMBLER PLATER Ot 196.3 12/28/2015 STEFFANIE CHAVEZ S TUMBLER PLATER Ot 250.00 12/28/2015 STEFFANIE CHAVEZ S TUMBLER PLATER Ot 272.1 12/28/2015 CHAVEZSTEFFANIE S TUMBLER PLATER Ot 272.4 12/28/2015 CHAVEZSTEFFANIE Kang S TUMBLER PLATER Ot 285.9 12/28/2015 CHAVEZSTEFFANIE Kang S TUMBLER PLATER Ot 357.6 12/28/2015 CHAVEZSTEFFANIE Kang S TUMBLER PLATER Ot 401.9 12/28/2015 CHAVEZSTEFFANIE Kang S TUMBLER PLATER Ot 412 12/28/2015 STEFFANIE CHAVEZ S TUMBLER PLATER Ot 414.00 12/28/2015 STEFFANIE CHAVEZ S TUMBLER PLATER Ot E849.7 12/28/2015 CHAVEZSTEFFANIE Kang S TUMBLER PLATER Ot E933.1 12/28/2015 STEFFANIE CHAVEZ S TUMBLER PLATER Ot V15.82 12/28/2015 CHAVEZSTEFFANIE Kang S TUMBLER PLATER Ot V16.3 12/28/2015 STEFFANIE CHAVEZ S TUMBLER PLATER Ot V45.71 12/28/2015 CHAVEZSTEFFANIE Kang S TUMBLER PLATER Ot V45.82 12/28/2015 STEFFANIE CHAVEZ S TUMBLER PLATER Ot V58.69 12/28/2015 STEFFANIE CHAVEZ S TUMBLER PLATER Ot V86.0 12/28/2015 HUGO TANG Ot C50.919 12/28/2015 HUGO TANG Ot Z51.81 12/28/2015 ENRRIQUE FUENTES TUMBLER PLATER Ot J18.9 12/28/2015 SREEKANTH COOLEY Ot C50.919 12/28/2015 SREEKANTH COOLEY Ot E78.5 12/28/2015 SREEKANTH COOLEY Ot I10 12/28/2015 HUGO TANG Ot C50.912 12/28/2015 HUGO TANG Ot D64.9 12/28/2015 HUGO TANG Ot E11.9 12/28/2015 HUGO TANG Ot E78.1 12/28/2015 HUGO TANG N Ot E78.5 12/28/2015 KITTY, SANDRAAN N Ot I10 12/28/2015 KITTY, BOBAN N Ot I25.10 12/28/2015 KITTY, BOBAN N Ot I25.2 12/28/2015 KITTY, BOBAN N Ot Z17.0 12/28/2015 KITTY, SANDRAAN N Ot Z51.0 12/28/2015 KITTY, HUGO N Ot Z72.0 12/28/2015 KITTY, HUGO N Ot Z79.4 12/28/2015 KITTY, HUGO N Ot Z79.899 12/28/2015 KITTY, SANDRAAN N Ot Z90.12 12/28/2015 KATHY STEFFANIE S TUMBLER PLATER Ot C50.912 12/28/2015 KATHY STEFFANIE S TUMBLER PLATER Ot Z51.81 12/28/2015 KATHY STEFFANIE S TUMBLER PLATER Ot Z79.899 12/28/2015 KATHY STEFFANIE S TUMBLER PLATER Ot C50.112 12/28/2015 KATHY STEFFANIE S TUMBLER PLATER Ot D64.9 12/28/2015 KATHY STEFFANIE S TUMBLER PLATER Ot E11.22 12/28/2015 KATHY STEFFANIE S TUMBLER PLATER Ot E78.1 12/28/2015 KATHY STEFFANIE S TUMBLER PLATER Ot E78.5 12/28/2015 KATHY STEFFANIE S TUMBLER PLATER Ot I12.9 12/28/2015 KATHY STEFFANIE S TUMBLER PLATER Ot I25.10 12/28/2015 KATHY STEFFANIE S TUMBLER PLATER Ot I25.2 12/28/2015 KATHY STEFFANIE S TUMBLER PLATER Ot N18.3 12/28/2015 KATHY STEFFANIE S TUMBLER PLATER Ot Z17.0 12/28/2015 KATHY STEFFANIE S TUMBLER PLATER Ot Z79.4 12/28/2015 KATHY STEFFANIE S TUMBLER PLATER Ot Z79.899 12/28/2015 KATHY STEFFANIE S TUMBLER PLATER Ot Z87.891 12/28/2015 KATHY STEFFANIE S TUMBLER PLATER Ot Z90.12 12/28/2015 KATHY STEFFANIE S TUMBLER PLATER Ot C50.112 12/28/2015 KATHY STEFFANIE S TUMBLER PLATER Ot N18.3 12/28/2015 STEFFANIE CHAVEZ TUMBLER PLATER Ot Z12.31 12/28/2015 STEFFANIE CHAVEZ S TUMBLER PLATER Ot Z13.820 12/28/2015 STEFFANIE CHAVEZ S TUMBLER PLATER Ot Z78.0 12/30/2015 KITTY, SANDRAAN N Ot C50.912 12/30/2015 KITTY, BOBAN N Ot D64.9 12/30/2015 KITTY, BOBAN N Ot E11.9 12/30/2015 KITTY, BOBAN N Ot E78.1 12/30/2015 KITTY, BOBAN N Ot E78.5 12/30/2015 KITTY, BOBAN N Ot I10 12/30/2015 KITTY, BOBAN N Ot I25.10 12/30/2015 KITTY, BOBAN N Ot I25.2 12/30/2015 KITTY, BOBAN N Ot Z17.0 12/30/2015 KITTY, BOBAN N Ot Z51.0 12/30/2015 KITTY, BOBAN N Ot Z72.0 12/30/2015 KITTY, BOBAN N Ot Z79.4 12/30/2015 KITTY, BOBAN N Ot Z79.899 12/30/2015 KITTY, BOBAN N Ot Z90.12 01/05/2016 STEFFANIE CHAVEZ TUMBLER PLATER Ot C50.112 01/05/2016 STEFFANIE CHAVEZ S TUMBLER PLATER Ot N18.3 01/05/2016 STEFFANIE CHAVEZ S TUMBLER PLATER Ot Z12.31 01/05/2016 STEFFANIE CHAVEZ S TUMBLER PLATER Ot Z13.820 01/05/2016 STEFFANIE CHAVEZ S TUMBLER PLATER Ot Z78.0 01/19/2016 MADENRRIQUE Morocho L TUMBLER PLATER Ot E11.65 01/19/2016 MADL, ENRRIQUE L TUMBLER PLATER Ot E11.65 01/21/2016 KITTY, BOBAN N Ot C50.912 01/21/2016 KITTY, BOBAN N Ot D64.9 01/21/2016 KITTY, BOBAN N Ot E11.9 01/21/2016 KITTY, BOBAN N Ot E78.1 01/21/2016 KITTY, BOBAN N Ot E78.5 01/21/2016 KITTY, BOBAN N Ot I10 01/21/2016 HUGO TANG N Ot I25.10 01/21/2016 HUGO TAGN N Ot I25.2 01/21/2016 HUGO TANG N Ot Z17.0 01/21/2016 KITTYHUGO LUJAN N Ot Z51.0 01/21/2016 KITTYHUGO LUJAN N Ot Z72.0 01/21/2016 HUGO TANG N Ot Z79.4 01/21/2016 HUGO TANG N Ot Z79.899 01/21/2016 HUGO TANG N Ot Z90.12 01/26/2016 CHAVEZSTEFFANIE Kang TUMBLER PLATER Ot C50.112 01/26/2016 KATHY STEFFANIE S TUMBLER PLATER Ot D64.9 01/26/2016 KATHY STEFFANIE S TUMBLER PLATER Ot E11.22 01/26/2016 KATHY STEFFANIE S TUMBLER PLATER Ot E78.1 01/26/2016 KATHY STEFFANIE S TUMBLER PLATER Ot E78.5 01/26/2016 KATHY STEFFANIE S TUMBLER PLATER Ot I12.9 01/26/2016 CHAVEZSTEFFANIE Kang S TUMBLER PLATER Ot I25.10 01/26/2016 CHAVEZSTEFFANIE S TUMBLER PLATER Ot I25.2 01/26/2016 KATHY STEFFANIE S TUMBLER PLATER Ot N18.3 01/26/2016 CHAVEZSTEFFANIE Kang S TUMBLER PLATER Ot Z17.0 01/26/2016 KATHY STEFFANIE S TUMBLER PLATER Ot Z79.4 01/26/2016 KATHY STEFFANIE S TUMBLER PLATER Ot Z79.899 01/26/2016 KATHY STEFFANIE S TUMBLER PLATER Ot Z87.891 01/26/2016 CHAVEZSTEFFANIE Kang S TUMBLER PLATER Ot Z90.12 01/26/2016 CHOLO EARL, NEEMA Britton Ot E78.2 01/26/2016 CHOLO EARL, NEEMA Britton Ot I10 01/26/2016 CHOLO EARL, NEEMA Britton Ot I25.10 01/26/2016 CHOLO EARL, NEEMA Britton Ot R06.02 01/28/2016 CHOLO EARL, NEEMA Britton Ot E78.2 01/28/2016 CHOLO EARL, NEEMA Britton Ot I10 01/28/2016 CHOLO EARL, NEEMA Britton Ot I25.10 01/28/2016 NEEMA EMMANUEL MD Ot R06.02 02/02/2016 ENRRIQUE FUENTES TUMBLER PLATER Ot E11.65 02/03/2016 NEEMA EMMANUEL MD Ot E78.2 02/03/2016 NEEMA EMMANUEL MD Ot I10 02/03/2016 NEEMA EMMANUEL MD Ot I25.10 02/03/2016 NEEMA EMMANUEL MD Ot R06.02 02/04/2016 NEEMA EMMANUEL MD Ot E78.2 MIXED HYPERLIPIDEMIA 02/04/2016 NEEMA EMMANUEL MD Ot I10 ESSENTIAL (PRIMARY) HYPERTENSION 02/04/2016 ENEMA EMMANUEL MD Ot I25.10 ATHSCL HEART DISEASE OF [place] CORONARY 02/04/2016 NEEMA EMMANUEL MD Ot R06.02 SHORTNESS OF BREATH 02/09/2016 STEFFANIE CHAVEZP Ot C50.112 MALIGNANT NEOPLASM OF CENTRAL PORTION OF 02/09/2016 STEFFANIE CHAVEZP Ot D64.9 ANEMIA, UNSPECIFIED 02/09/2016 STEFFANIE CHAVEZP Ot 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 02/09/2016 STEFFANIE CHAVEZP Ot E78.1 PURE HYPERGLYCERIDEMIA 02/09/2016 STEFFANIE CHAVEZP Ot E78.5 HYPERLIPIDEMIA, UNSPECIFIED 02/09/2016 STEFFANIE CHAVEZP Ot I12.9 HYPERTENSIVE CHRONIC KIDNEY DISEASE W ST 02/09/2016 STEFFANIE CHAVEZP Ot I25.10 ATHSCL HEART DISEASE OF [place] CORONARY 02/09/2016 STEFFANIE CHAVEZP Ot I25.2 OLD MYOCARDIAL INFARCTION 02/09/2016 STEFFANIE CHAVEZP Ot N18.3 CHRONIC KIDNEY DISEASE, STAGE 3 (MODERAT 02/09/2016 STEFFANIE CHAVEZP Ot 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+] 02/09/2016 STEFFANIE CHAVEZP Ot 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 02/09/2016 STEFFANIE CHAVEZP Ot Z79.899 OTHER SENIOR LIVING (CURRENT) DRUG THERAPY 02/09/2016 STEFFANIE CHAVEZP Ot Z87.891 PERSONAL HISTORY OF NICOTINE DEPENDENCE 02/09/2016 STEFFANIE CHAVEZ TUMBLER PLATER Ot Z90.12 ACQUIRED ABSENCE OF LEFT BREAST AND NIPP 02/09/2016 NEEMA EMMANUEL MD Ot E78.2 MIXED HYPERLIPIDEMIA 02/09/2016 NEEMA EMMANUEL MD, Ot I10 ESSENTIAL (PRIMARY) HYPERTENSION 02/09/2016 NEEMA EMMANUEL MD Ot I25.10 ATHSCL HEART DISEASE OF [place] CORONARY 02/09/2016 NEEMA EMMANUEL MD Ot R06.02 SHORTNESS OF BREATH 02/16/2016 NEEMA EMMANUEL MD, Ot E78.2 MIXED HYPERLIPIDEMIA 02/16/2016 NEEMA EMMANUEL MD, Ot I10 ESSENTIAL (PRIMARY) HYPERTENSION 02/16/2016 NEEMA EMMANUEL MD, Ot I25.10 ATHSCL HEART DISEASE OF [place] CORONARY 02/16/2016 NEEMA EMMANUEL MD Ot R06.02 SHORTNESS OF BREATH 02/22/2016 HUGO TANG Ot C50.912 MALIGNANT NEOPLASM OF UNSPECIFIED SITE O 02/22/2016 HUGO TANG Ot D64.9 ANEMIA, UNSPECIFIED 02/22/2016 HUGO TANG Ot E11.9 TYPE 2 DIABETES MELLITUS WITHOUT COMPLIC 02/22/2016 HUGO TANG Ot E78.1 PURE HYPERGLYCERIDEMIA 02/22/2016 HUGO TANG Ot E78.5 HYPERLIPIDEMIA, UNSPECIFIED 02/22/2016 HUGO TANG Ot I10 ESSENTIAL (PRIMARY) HYPERTENSION 02/22/2016 HUGO TANG Ot I25.10 ATHSCL HEART DISEASE OF [place] CORONARY 02/22/2016 HUGO TANG Ot I25.2 OLD MYOCARDIAL INFARCTION 02/22/2016 HUGO TANG Ot 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+] 02/22/2016 HUGO TANG Ot Z51.0 ENCOUNTER FOR ANTINEOPLASTIC RADIATION T 02/22/2016 HUGO TANG Ot Z72.0 TOBACCO USE 02/22/2016 HUGO TANG Ot 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 02/22/2016 HUGO TANG Ot 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 02/22/2016 HUGO TANG Ot Z90.12 ACQUIRED ABSENCE OF LEFT BREAST AND NIPP 02/23/2016 STEFFANIE CHAVEZ Jorge Luis TUMBLER PLATER Ot C50.112 MALIGNANT NEOPLASM OF CENTRAL PORTION OF 02/23/2016 STEFFANIE CHAVEZ TUMBLER PLATER Ot D64.9 ANEMIA, UNSPECIFIED 02/23/2016 STEFFANIE CHAVEZ Jorge Luis TUMBLER PLATER Ot 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 02/23/2016 STEFFANIE CHAVEZ Jorge Luis TUMBLER PLATER Ot E78.1 PURE HYPERGLYCERIDEMIA 02/23/2016 STEFFANIE CHAVEZ Jorge Luis TUMBLER PLATER Ot E78.5 HYPERLIPIDEMIA, UNSPECIFIED 02/23/2016 KATHY STEFFANIE Kang TUMBLER PLATER Ot I12.9 HYPERTENSIVE CHRONIC KIDNEY DISEASE W ST 02/23/2016 SHAUN CHAVEZDAYTON Kang TUMBLER PLATER Ot I25.10 ATHSCL HEART DISEASE OF [place] CORONARY 02/23/2016 STEFFANIE CHAVEZP Ot I25.2 OLD MYOCARDIAL INFARCTION 02/23/2016 STEFFANIE CHAVEZ Jorge Luis TUMBLER PLATER Ot N18.3 CHRONIC KIDNEY DISEASE, STAGE 3 (MODERAT 02/23/2016 STEFFANIE CHAVEZ Jorge Luis TUMBLER PLATER Ot 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+] 02/23/2016 SHAUN CHAVEZDAYTON Kang TUMBLER PLATER Ot 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 02/23/2016 SHAUN CHAVEZDAYTON Kang TUMBLER PLATER Ot Z79.899 OTHER SENIOR LIVING (CURRENT) DRUG THERAPY 02/23/2016 KATHY STEFFANIE Kang TUMBLER PLATER Ot Z87.891 PERSONAL HISTORY OF NICOTINE DEPENDENCE 02/23/2016 KATHY STEFFANIE Kang TUMBLER PLATER Ot Z90.12 ACQUIRED ABSENCE OF LEFT BREAST AND NIPP 03/06/2016 ALFREDOENRRIQUE Rashawn TUMBLER PLATER Ot E11.65 TYPE 2 DIABETES MELLITUS WITH HYPERGLYCE 03/08/2016 ALFREDOENRRIQUE L TUMBLER PLATER Ot E87.5 HYPERKALEMIA 2016 STEFFANIE CHAVEZ TUMBLER PLATER Ot C50.112 MALIGNANT NEOPLASM OF CENTRAL PORTION OF 2016 STEFFANIE CHAVEZP Ot D64.9 ANEMIA, UNSPECIFIED 2016 STEFFANIE CHAVEZ TUMBLER PLATER Ot 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 2016 STEFFANIE CHAVEZP Ot E78.1 PURE HYPERGLYCERIDEMIA 2016 STEFFANIE CHAVEZ TUMBLER PLATER Ot E78.5 HYPERLIPIDEMIA, UNSPECIFIED 2016 STEFFANIE CHAVEZ TUMBLER PLATER Ot I12.9 HYPERTENSIVE CHRONIC KIDNEY DISEASE W ST 2016 STEFFANIE CHAVEZ TUMBLER PLATER Ot I25.10 ATHSCL HEART DISEASE OF [place] CORONARY 2016 STEFFANIE CHAVEZ TUMBLER PLATER Ot I25.2 OLD MYOCARDIAL INFARCTION 2016 STEFFANIE CHVAEZ TUMBLER PLATER Ot N18.3 CHRONIC KIDNEY DISEASE, STAGE 3 (MODERAT 2016 CHAVEZSTEFFANIE Kang TUMBLER PLATER Ot 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+] 2016 CHAVEZSTEFFANIE Kang TUMBLER PLATER Ot 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 2016 CHAVEZSTEFFANIE Kang TUMBLER PLATER Ot Z79.899 OTHER SENIOR LIVING (CURRENT) DRUG THERAPY 2016 STEFFANIE CHAVEZ TUMBLER PLATER Ot Z87.891 PERSONAL HISTORY OF NICOTINE DEPENDENCE 2016 CHAVEZSTEFFANIE Kang TUMBLER PLATER Ot Z90.12 ACQUIRED ABSENCE OF LEFT BREAST AND NIPP 03/15/2016 HUGO TANG Ot C50.912 MALIGNANT NEOPLASM OF UNSPECIFIED SITE O 03/15/2016 HUGO TANG Ot D64.9 ANEMIA, UNSPECIFIED 03/15/2016 HUGO TANG Ot E11.9 TYPE 2 DIABETES MELLITUS WITHOUT COMPLIC 03/15/2016 HUGO TANG Ot E78.1 PURE HYPERGLYCERIDEMIA 03/15/2016 HUGO TANG Ot E78.5 HYPERLIPIDEMIA, UNSPECIFIED 03/15/2016 HUGO TANG Ot I10 ESSENTIAL (PRIMARY) HYPERTENSION 03/15/2016 HUGO TANG Ot I25.10 ATHSCL HEART DISEASE OF [place] CORONARY 03/15/2016 HUGO TANG Ot I25.2 OLD MYOCARDIAL INFARCTION 03/15/2016 HUGO TANG Ot 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+] 03/15/2016 HUGO TANG Ot Z51.0 ENCOUNTER FOR ANTINEOPLASTIC RADIATION T 03/15/2016 HUGO TANG Ot Z72.0 TOBACCO USE 03/15/2016 HUGO TANG Ot Z79.4 SENIOR LIVING (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 OF INSULIN 03/15/2016 HUGO ATNG Ot Z79.899 OTHER SENIOR LIVING (CURRENT) DRUG THERAPY 03/15/2016 HUGO TANG Ot Z90.12 ACQUIRED ABSENCE OF LEFT BREAST AND NIPP 03/21/2016 HUGO TANG Ot C50.912 MALIGNANT NEOPLASM OF UNSPECIFIED SITE O 03/21/2016 HUGO TANG Ot D64.9 ANEMIA, UNSPECIFIED 03/21/2016 HUGO TANG Kelly Ot E11.9 TYPE 2 DIABETES MELLITUS WITHOUT COMPLIC 03/21/2016 HUGO TANG Kelly Ot E78.1 PURE HYPERGLYCERIDEMIA 03/21/2016 HUGO TANG Kelly Ot E78.5 HYPERLIPIDEMIA, UNSPECIFIED 03/21/2016 HUGO TANG Kelly Ot I10 ESSENTIAL (PRIMARY) HYPERTENSION 03/21/2016 HUGO TANG Kelly Ot I25.10 ATHSCL HEART DISEASE OF [place] CORONARY 03/21/2016 HUGO TANG Kelly Ot I25.2 OLD MYOCARDIAL INFARCTION 03/21/2016 HUGO TANG Ot 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+] 03/21/2016 HUGO TANG Ot Z51.11 ENCOUNTER FOR ANTINEOPLASTIC CHEMOTHERAP 03/21/2016 HUGO TANG Ot Z72.0 TOBACCO USE 03/21/2016 HUGO TANG Ot 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 03/21/2016 HUGO TANG Ot Z79.899 OTHER SENIOR LIVING (CURRENT) DRUG THERAPY 03/21/2016 HUGO TANG Ot Z90.12 ACQUIRED ABSENCE OF LEFT BREAST AND NIPP 03/22/2016 STEFFANIE CHAVEZP Ot C50.112 MALIGNANT NEOPLASM OF CENTRAL PORTION OF 03/22/2016 STEFFANIE CHAVEZP Ot D64.9 ANEMIA, UNSPECIFIED 03/22/2016 STEFFANIE CHAVEZP Ot 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 03/22/2016 STEFFANIE CHAVEZP Ot E78.1 PURE HYPERGLYCERIDEMIA 03/22/2016 STEFFANIE CHAVEZP Ot E78.5 HYPERLIPIDEMIA, UNSPECIFIED 03/22/2016 STEFFANIE CHAVEZP Ot I12.9 HYPERTENSIVE CHRONIC KIDNEY DISEASE W ST 03/22/2016 CHAVEZ, HILAH S TUMBLER PLATER Ot I25.10 ATHSCL HEART DISEASE OF [place] CORONARY 03/22/2016 STEFFANIE CHAVEZ Jorge Luis TUMBLER PLATER Ot I25.2 OLD MYOCARDIAL INFARCTION 03/22/2016 STEFFANIE CHAVEZ TUMBLER PLATER Ot N18.3 CHRONIC KIDNEY DISEASE, STAGE 3 (MODERAT 03/22/2016 STEFFANIE CHAVEZ Jorge Luis TUMBLER PLATER Ot 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+] 03/22/2016 STEFFANIE CHAVEZ TUMBLER PLATER Ot 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 03/22/2016 STEFFANIE CHAVEZ Jorge Luis TUMBLER PLATER Ot Z79.899 OTHER SENIOR LIVING (CURRENT) DRUG THERAPY 03/22/2016 STEFFANIE CHAVEZ Jorge Luis TUMBLER PLATER Ot Z87.891 PERSONAL HISTORY OF NICOTINE DEPENDENCE 03/22/2016 STEFFANIE CHAVEZ TUMBLER PLATER Ot Z90.12 ACQUIRED ABSENCE OF LEFT BREAST AND NIPP 03/22/2016 ALFREDOENRRIQUE Rashawn TUMBLER PLATER Ot E87.5 HYPERKALEMIA 04/06/2016 STEFFANIE CHAVEZ TUMBLER PLATER Ot C50.112 MALIGNANT NEOPLASM OF CENTRAL PORTION OF 04/06/2016 STEFFANIE CHAVEZ Jorge Luis TUMBLER PLATER Ot D64.9 ANEMIA, UNSPECIFIED 04/06/2016 STEFFANIE CHAVEZ Jorge Luis TUMBLER PLATER Ot 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 04/06/2016 STEFFANIE CHAVEZ TUMBLER PLATER Ot E78.1 PURE HYPERGLYCERIDEMIA 04/06/2016 STEFFANIE CHAVEZ TUMBLER PLATER Ot E78.5 HYPERLIPIDEMIA, UNSPECIFIED 04/06/2016 STEFFANIE CHAVEZ TUMBLER PLATER Ot I12.9 HYPERTENSIVE CHRONIC KIDNEY DISEASE W ST 04/06/2016 STEFFANIE CHAVEZ TUMBLER PLATER Ot I25.10 ATHSCL HEART DISEASE OF [place] CORONARY 04/06/2016 STEFFANIE CHAVEZ TUMBLER PLATER Ot I25.2 OLD MYOCARDIAL INFARCTION 04/06/2016 STEFFANIE CHAVEZ TUMBLER PLATER Ot N18.3 CHRONIC KIDNEY DISEASE, STAGE 3 (MODERAT 04/06/2016 STEFFANIE CHAVEZ TUMBLER PLATER Ot 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+] 04/06/2016 STEFFANIE CHAVEZ TUMBLER PLATER Ot 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 04/06/2016 STEFFANIE CHAVEZ TUMBLER PLATER Ot Z79.899 OTHER SENIOR LIVING (CURRENT) DRUG THERAPY 04/06/2016 CHAVEZSTEFFANIE Kang TUMBLER PLATER Ot Z87.891 PERSONAL HISTORY OF NICOTINE DEPENDENCE 04/06/2016 STEFFANIE CHAVEZ TUMBLER PLATER Ot Z90.12 ACQUIRED ABSENCE OF LEFT BREAST AND NIPP 04/14/2016 STEFFANIE CHAVEZ TUMBLER PLATER Ot C50.112 MALIGNANT NEOPLASM OF CENTRAL PORTION OF 04/14/2016 STEFFANIE CHAVEZ TUMBLER PLATER Ot M54.5 LOW BACK PAIN 04/14/2016 STEFFANIE CHAVEZ TUMBLER PLATER Ot C50.112 MALIGNANT NEOPLASM OF CENTRAL PORTION OF 04/14/2016 STEFFANIE CHAVEZ TUMBLER PLATER Ot M54.5 LOW BACK PAIN 04/17/2016 CARMENCITA JOHN MD Ot C50.912 MALIGNANT NEOPLASM OF UNSPECIFIED SITE O 04/17/2016 CARMENCITA JOHN MD Ot E11.42 TYPE 2 DIABETES MELLITUS WITH DIABETIC P 04/17/2016 CARMENCITA JOHN MD, Ot E11.622 TYPE 2 DIABETES MELLITUS WITH OTHER SKIN 04/17/2016 CARMENCITA JOHN MD Ot I89.0 LYMPHEDEMA, NOT ELSEWHERE CLASSIFIED 04/17/2016 CARMENCITA JOHN MD Ot L97.521 NON-PRS CHRONIC ULCER OTH PRT L FOOT SAAVEDRA 04/20/2016 HUGO TANG Ot C50.912 MALIGNANT NEOPLASM OF UNSPECIFIED SITE O 04/20/2016 HUGO TANG Ot D64.9 ANEMIA, UNSPECIFIED 04/20/2016 HUGO TANG Ot E11.9 TYPE 2 DIABETES MELLITUS WITHOUT COMPLIC 04/20/2016 HUGO TANG Ot E78.1 PURE HYPERGLYCERIDEMIA 04/20/2016 HUGO TANG Ot E78.5 HYPERLIPIDEMIA, UNSPECIFIED 04/20/2016 HUGO TANG Ot I10 ESSENTIAL (PRIMARY) HYPERTENSION 04/20/2016 HUGO TANG Ot I25.10 ATHSCL HEART DISEASE OF [place] CORONARY 04/20/2016 HUGO TANG Ot I25.2 OLD MYOCARDIAL INFARCTION 04/20/2016 HUOG TANG Ot 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+] 04/20/2016 HUGO TANG Ot Z51.11 ENCOUNTER FOR ANTINEOPLASTIC CHEMOTHERAP 04/20/2016 HUGO TANG Ot Z72.0 TOBACCO USE 04/20/2016 HUGO TANG N Ot 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 04/20/2016 HUGO TANG N Ot 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 04/20/2016 HUGO TANG N Ot Z90.12 ACQUIRED ABSENCE OF LEFT BREAST AND NIPP 04/24/2016 HUGO TANG N Ot C50.912 MALIGNANT NEOPLASM OF UNSPECIFIED SITE O 04/24/2016 HUGO TANG N Ot D64.9 ANEMIA, UNSPECIFIED 04/24/2016 KITTYHUGO N Ot E11.9 TYPE 2 DIABETES MELLITUS WITHOUT COMPLIC 04/24/2016 KITTYHUGO LUJAN N Ot E78.1 PURE HYPERGLYCERIDEMIA 04/24/2016 KITTYSANDRAMARISSA N Ot E78.5 HYPERLIPIDEMIA, UNSPECIFIED 04/24/2016 HUGO TANG N Ot I10 ESSENTIAL (PRIMARY) HYPERTENSION 04/24/2016 HUGO TANG N Ot I25.10 ATHSCL HEART DISEASE OF [place] CORONARY 04/24/2016 HUGO TANG N Ot I25.2 OLD MYOCARDIAL INFARCTION 04/24/2016 HUGO TANG N Ot 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+] 04/24/2016 HUGO TANG N Ot Z51.11 ENCOUNTER FOR ANTINEOPLASTIC CHEMOTHERAP 04/24/2016 HUGO TANG N Ot Z72.0 TOBACCO USE 04/24/2016 HUGO TANG N Ot 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 04/24/2016 HUGO TANG N Ot 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 04/24/2016 HUGO TANG N Ot Z90.12 ACQUIRED ABSENCE OF LEFT BREAST AND NIPP 04/26/2016 MADLENRRIQUE L TUMBLER PLATER Ot E11.65 TYPE 2 DIABETES MELLITUS WITH HYPERGLYCE 04/30/2016 KITTYHUGO LUJAN N Ot C50.912 MALIGNANT NEOPLASM OF UNSPECIFIED SITE O 04/30/2016 HUGO TANG N Ot D64.9 ANEMIA, UNSPECIFIED 04/30/2016 KITTYHUGO LUJAN N Ot E11.9 TYPE 2 DIABETES MELLITUS WITHOUT COMPLIC 04/30/2016 KITTY HUGO N Ot E78.1 PURE HYPERGLYCERIDEMIA 04/30/2016 KITTYHUGO N Ot E78.5 HYPERLIPIDEMIA, UNSPECIFIED 04/30/2016 HUGO TANG Ot I10 ESSENTIAL (PRIMARY) HYPERTENSION 04/30/2016 HUGO TANG Ot I25.10 ATHSCL HEART DISEASE OF [place] CORONARY 04/30/2016 HUGO TANG Kelly Ot I25.2 OLD MYOCARDIAL INFARCTION 04/30/2016 HUGO TANG Ot 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+] 04/30/2016 HUGO TANG Ot Z51.11 ENCOUNTER FOR ANTINEOPLASTIC CHEMOTHERAP 04/30/2016 UHGO TANG Ot Z72.0 TOBACCO USE 04/30/2016 HUGO TANG Ot 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 04/30/2016 HUGO TANG Ot 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 04/30/2016 HUGO TANG Kelly Ot Z90.12 ACQUIRED ABSENCE OF LEFT BREAST AND NIPP 05/02/2016 ENRRIQUE FUENTES TUMBLER PLATER Ot E11.65 TYPE 2 DIABETES MELLITUS WITH HYPERGLYCE 05/08/2016 STEFFANIE CHAVEZ TUMBLER PLATER Ot C50.112 MALIGNANT NEOPLASM OF CENTRAL PORTION OF 05/08/2016 STEFFANIE CHAVEZ Ot M54.5 LOW BACK PAIN 05/11/2016 ENRRIQUE FUENTESP Ot E11.65 TYPE 2 DIABETES MELLITUS WITH HYPERGLYCE 05/16/2016 CHEL ARRINGTON MD Ot C50.112 MALIGNANT NEOPLASM OF CENTRAL PORTION OF 05/16/2016 CHEL ARRINGTON MD Ot 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 05/16/2016 CHEL ARRINGTON MD Ot E78.1 PURE HYPERGLYCERIDEMIA 05/16/2016 CHEL ARRINGTON MD, Ot E78.5 HYPERLIPIDEMIA, UNSPECIFIED 05/16/2016 CHEL ARRINGTON MD Ot I12.9 HYPERTENSIVE CHRONIC KIDNEY DISEASE W ST 05/16/2016 CHEL ARRINGTON MD Ot I25.10 ATHSCL HEART DISEASE OF [place] CORONARY 05/16/2016 CHEL ARRINGTON MD Ot I25.2 OLD MYOCARDIAL INFARCTION 05/16/2016 CHEL ARRINGTON MD Ot N18.3 CHRONIC KIDNEY DISEASE, STAGE 3 (MODERAT 05/16/2016 CHEL ARRINGTON MD Ot 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+] 05/16/2016 CHEL ARRINGTON MD Ot 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 05/16/2016 CHEL ARRINGTON MD Ot 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 05/16/2016 CHEL ARRINGTON MD Ot Z87.891 PERSONAL HISTORY OF NICOTINE DEPENDENCE 05/16/2016 CHEL ARRINGTON MD Ot Z90.12 ACQUIRED ABSENCE OF LEFT BREAST AND NIPP 05/17/2016 HUGO TANG Ot C50.912 MALIGNANT NEOPLASM OF UNSPECIFIED SITE O 05/17/2016 HUGO TANG Ot D64.9 ANEMIA, UNSPECIFIED 05/17/2016 HUGO TANG Ot E11.9 TYPE 2 DIABETES MELLITUS WITHOUT COMPLIC 05/17/2016 HUGO TANG Ot E78.1 PURE HYPERGLYCERIDEMIA 05/17/2016 HUGO TANG Ot E78.5 HYPERLIPIDEMIA, UNSPECIFIED 05/17/2016 HUGO TANG Ot I10 ESSENTIAL (PRIMARY) HYPERTENSION 05/17/2016 HUGO TANG Ot I25.10 ATHSCL HEART DISEASE OF [place] CORONARY 05/17/2016 HUGO TANG Ot I25.2 OLD MYOCARDIAL INFARCTION 05/17/2016 HUGO TANG Ot 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+] 05/17/2016 HUGO TANG Ot Z51.11 ENCOUNTER FOR ANTINEOPLASTIC CHEMOTHERAP 05/17/2016 HUGO TANG Ot Z72.0 TOBACCO USE 05/17/2016 HUGO TANG Ot Z79.4 SENIOR LIVING (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 OF INSULIN 05/17/2016 HUGO TANG Ot 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 05/17/2016 HUGO TANG Ot Z90.12 ACQUIRED ABSENCE OF LEFT BREAST AND NIPP 05/18/2016 CHEL ARRINGTON MD Ot C50.112 MALIGNANT NEOPLASM OF CENTRAL PORTION OF 05/18/2016 CHEL ARRINGTON MD Ot E11.9 TYPE 2 DIABETES MELLITUS WITHOUT COMPLIC 05/18/2016 CHEL ARRINGTON MD Ot I25.10 ATHSCL HEART DISEASE OF [place] CORONARY 05/18/2016 CHEL ARRINGTON MD Ot Z79.899 OTHER SENIOR LIVING (CURRENT) DRUG THERAPY 05/31/2016 BOWMAN-JOHN PA, SREEKANTH K Ot E78.2 MIXED HYPERLIPIDEMIA 05/31/2016 PEGGY BEDOLLA, SREEKANTH K Ot I10 ESSENTIAL (PRIMARY) HYPERTENSION 05/31/2016 PEGGY BEDOLLA, SREEKANTH K Ot I21.3 ST ELEVATION (STEMI) MYOCARDIAL INFARCTI 05/31/2016 PEGGY BEDOLLA, SREEKANTH K Ot R06.02 SHORTNESS OF BREATH 06/02/2016 PEGGY BEDOLLA, SREEKANTH K Ot E78.2 MIXED HYPERLIPIDEMIA 06/02/2016 PEGGY BEDOLLA, SREEKANTH K Ot I10 ESSENTIAL (PRIMARY) HYPERTENSION 06/02/2016 PEGGY BEDOLLA, SREEKANTH K Ot I21.3 ST ELEVATION (STEMI) MYOCARDIAL INFARCTI 06/02/2016 PEGGY BEDOLLA, SREEKANTH K Ot R06.02 SHORTNESS OF BREATH 06/02/2016 PEGGY BEDOLLA, SREEKANTH K Ot E78.2 MIXED HYPERLIPIDEMIA 06/02/2016 PEGGY BEDOLLA, SREEKANTH K Ot I10 ESSENTIAL (PRIMARY) HYPERTENSION 06/02/2016 PEGGY BEDOLLA, SREEKANTH K Ot I21.3 ST ELEVATION (STEMI) MYOCARDIAL INFARCTI 06/02/2016 PEGGY BEDOLLA, SREEKANTH K Ot R06.02 SHORTNESS OF BREATH 06/02/2016 PEGGY BEDOLLA, SREEKANTH K Ot E78.2 MIXED HYPERLIPIDEMIA 06/02/2016 PEGGY BEDOLLA, SREEKANTH K Ot I10 ESSENTIAL (PRIMARY) HYPERTENSION 06/02/2016 PEGGY BEDOLLA, SREEKANTH K Ot I21.3 ST ELEVATION (STEMI) MYOCARDIAL INFARCTI 06/02/2016 PEGGY BEDOLLA, SREEKANTH K Ot R06.02 SHORTNESS OF BREATH 06/02/2016 HUGO TANG Ot C50.912 MALIGNANT NEOPLASM OF UNSPECIFIED SITE O 06/02/2016 HUGO TANG Ot D64.9 ANEMIA, UNSPECIFIED 06/02/2016 HUGO TANG Ot E11.9 TYPE 2 DIABETES MELLITUS WITHOUT COMPLIC 06/02/2016 HUGO TANG Ot E78.1 PURE HYPERGLYCERIDEMIA 06/02/2016 HUGO TANG Ot E78.5 HYPERLIPIDEMIA, UNSPECIFIED 06/02/2016 HUGO TANG Ot I10 ESSENTIAL (PRIMARY) HYPERTENSION 06/02/2016 HUGO TANG Ot I25.10 ATHSCL HEART DISEASE OF [place] CORONARY 06/02/2016 HUGO TANG Kelly Ot I25.2 OLD MYOCARDIAL INFARCTION 06/02/2016 HUGO TANG Ot 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+] 06/02/2016 HUGO TANG Kelly Ot Z51.11 ENCOUNTER FOR ANTINEOPLASTIC CHEMOTHERAP 06/02/2016 HUGO TANG Kelly Ot Z72.0 TOBACCO USE 06/02/2016 HUGO TANG Kelly Ot 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 06/02/2016 HUGO TANG Kelly Ot 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 06/02/2016 HUGO TANG Kelly Ot Z90.12 ACQUIRED ABSENCE OF LEFT BREAST AND NIPP 06/02/2016 CHEL ARRINGTON MD, Ot C50.112 MALIGNANT NEOPLASM OF CENTRAL PORTION OF 06/02/2016 CHEL ARRINGTON MD, Ot 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 06/02/2016 CHEL ARRINGTON MD, Ot E78.1 PURE HYPERGLYCERIDEMIA 06/02/2016 CHEL ARRINGTON MD, Ot E78.5 HYPERLIPIDEMIA, UNSPECIFIED 06/02/2016 CHEL ARRINGTON MD, Ot I12.9 HYPERTENSIVE CHRONIC KIDNEY DISEASE W ST 06/02/2016 CHEL ARRINGTON MD, Ot I25.10 ATHSCL HEART DISEASE OF [place] CORONARY 06/02/2016 CHEL ARRINGTON MD, Ot I25.2 OLD MYOCARDIAL INFARCTION 06/02/2016 CHEL ARRINGTON MD, Ot N18.3 CHRONIC KIDNEY DISEASE, STAGE 3 (MODERAT 06/02/2016 CHEL ARRINGTON MD, Ot 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+] 06/02/2016 CHEL ARRINGTON MD, Ot Z79.4 SENIOR LIVING (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 OF INSULIN 06/02/2016 CHEL ARRINGTON MD, Ot 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 06/02/2016 CHEL ARRINGTON MD, Ot Z87.891 PERSONAL HISTORY OF NICOTINE DEPENDENCE 06/02/2016 CHEL ARRINGTON MD, Ot Z90.12 ACQUIRED ABSENCE OF LEFT BREAST AND NIPP 06/02/2016 CHEL ARRINGTON MD, Ot C50.112 MALIGNANT NEOPLASM OF CENTRAL PORTION OF 06/02/2016 CHEL ARRINGTON MD Ot E11.9 TYPE 2 DIABETES MELLITUS WITHOUT COMPLIC 06/02/2016 CHEL ARRINGTON MD Ot I25.10 ATHSCL HEART DISEASE OF [place] CORONARY 06/02/2016 CHEL ARRINGTON MD Ot 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 06/14/2016 SREEKANTH COOLEY Ot E78.2 MIXED HYPERLIPIDEMIA 06/14/2016 SREEKANTH COOLEY Ot I10 ESSENTIAL (PRIMARY) HYPERTENSION 06/14/2016 SREEKANTH COOLEY Ot I21.3 ST ELEVATION (STEMI) MYOCARDIAL INFARCTI 06/14/2016 SREEKANTH COOLEY Ot R06.02 SHORTNESS OF BREATH 06/15/2016 STEFFANIE CHAVEZ Ot C50.112 MALIGNANT NEOPLASM OF CENTRAL PORTION OF 06/15/2016 STEFFANIE CHAVEZP Ot 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 06/15/2016 STEFFANIE CHAVEZP Ot E78.1 PURE HYPERGLYCERIDEMIA 06/15/2016 STEFFANIE CHAVEZP Ot E78.5 HYPERLIPIDEMIA, UNSPECIFIED 06/15/2016 STEFFANIE CHAVEZP Ot I12.9 HYPERTENSIVE CHRONIC KIDNEY DISEASE W ST 06/15/2016 STEFFANIE CHAVEZP Ot I25.10 ATHSCL HEART DISEASE OF [place] CORONARY 06/15/2016 STEFFANIE CHAVEZ Ot I25.2 OLD MYOCARDIAL INFARCTION 06/15/2016 STEFFANIE CHAVEZP Ot M54.5 LOW BACK PAIN 06/15/2016 STEFFANIE CHAVEZP Ot N18.3 CHRONIC KIDNEY DISEASE, STAGE 3 (MODERAT 06/15/2016 STEFFANIE CHAVEZP Ot 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+] 06/15/2016 STEFFANIE CHAVEZP Ot Z79.4 SENIOR LIVING (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 OF INSULIN 06/15/2016 STEFFANIE CHAVEZ Ot Z79.899 OTHER SENIOR LIVING (CURRENT) DRUG THERAPY 06/15/2016 STEFFANIE CHAVEZP Ot Z87.891 PERSONAL HISTORY OF NICOTINE DEPENDENCE 06/15/2016 STEFFANIE CHAVEZP Ot Z90.12 ACQUIRED ABSENCE OF LEFT BREAST AND NIPP 06/23/2016 HUGO TANG Ot C50.912 MALIGNANT NEOPLASM OF UNSPECIFIED SITE O 06/23/2016 HUGO TANG Kelly Ot D64.9 ANEMIA, UNSPECIFIED 06/23/2016 HUGO TANG Kelly Ot E11.9 TYPE 2 DIABETES MELLITUS WITHOUT COMPLIC 06/23/2016 HUGO TANG Kelly Ot E78.1 PURE HYPERGLYCERIDEMIA 06/23/2016 HUGO TANG Kelly Ot E78.5 HYPERLIPIDEMIA, UNSPECIFIED 06/23/2016 KITTY SANDRAMARISSA Kelly Ot I10 ESSENTIAL (PRIMARY) HYPERTENSION 06/23/2016 HUGO TANG Kelly Ot I25.10 ATHSCL HEART DISEASE OF [place] CORONARY 06/23/2016 KITTY SANDRAMARISSA Kelly Ot I25.2 OLD MYOCARDIAL INFARCTION 06/23/2016 HUGO TANG Kelly Ot 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+] 06/23/2016 HUGO TANG Kelly Ot Z51.11 ENCOUNTER FOR ANTINEOPLASTIC CHEMOTHERAP 06/23/2016 HUGO TANG Kelly Ot Z72.0 TOBACCO USE 06/23/2016 HUGO TANG Kelly Ot 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 06/23/2016 HUGO TANG Kelly Ot 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 06/23/2016 HUGO TANG Kelly Ot Z90.12 ACQUIRED ABSENCE OF LEFT BREAST AND NIPP 06/30/2016 STEFFANIE CHAVEZP Ot C50.112 MALIGNANT NEOPLASM OF CENTRAL PORTION OF 06/30/2016 STEFFANIE CHAVEZ TUMBLER PLATER Ot 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 06/30/2016 STEFFANIE CHAVEZP Ot E78.1 PURE HYPERGLYCERIDEMIA 06/30/2016 STEFFANIE CHAVEZ TUMBLER PLATER Ot E78.5 HYPERLIPIDEMIA, UNSPECIFIED 06/30/2016 STEFFANIE CHAVEZ TUMBLER PLATER Ot I12.9 HYPERTENSIVE CHRONIC KIDNEY DISEASE W ST 06/30/2016 STEFFANIE CHAVEZ TUMBLER PLATER Ot I25.10 ATHSCL HEART DISEASE OF [place] CORONARY 06/30/2016 STEFFANIE CHAVEZ TUMBLER PLATER Ot I25.2 OLD MYOCARDIAL INFARCTION 06/30/2016 STEFFANIE CHAVEZP Ot M54.5 LOW BACK PAIN 06/30/2016 STEFFANIE CHAVEZP Ot N18.3 CHRONIC KIDNEY DISEASE, STAGE 3 (MODERAT 06/30/2016 CHAVEZSTEFFANIE Kang TUMBLER PLATER Ot 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+] 06/30/2016 CHAVEZ, SHAUNDAYTON Jorge Luis TUMBLER PLATER Ot 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 06/30/2016 CHAVEZSTEFFANIE Kang Jorge Luis TUMBLER PLATER Ot 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 06/30/2016 KATHY SHAUNDAYTON Jorge Luis TUMBLER PLATER Ot Z87.891 PERSONAL HISTORY OF NICOTINE DEPENDENCE 06/30/2016 STEFFANIE CHAVEZ TUMBLER PLATER Ot Z90.12 ACQUIRED ABSENCE OF LEFT BREAST AND NIPP 07/24/2016 HUGO TANG N Ot C50.912 MALIGNANT NEOPLASM OF UNSPECIFIED SITE O 07/24/2016 HUGO TANG Ot D64.9 ANEMIA, UNSPECIFIED 07/24/2016 KITTYHUGO LUJAN N Ot E11.9 TYPE 2 DIABETES MELLITUS WITHOUT COMPLIC 07/24/2016 HUGO TANG N Ot E78.1 PURE HYPERGLYCERIDEMIA 07/24/2016 HUGO TANG N Ot E78.5 HYPERLIPIDEMIA, UNSPECIFIED 07/24/2016 HUGO TANG N Ot I10 ESSENTIAL (PRIMARY) HYPERTENSION 07/24/2016 HUGO TANG N Ot I25.10 ATHSCL HEART DISEASE OF [place] CORONARY 07/24/2016 HUGO TANG N Ot I25.2 OLD MYOCARDIAL INFARCTION 07/24/2016 HUGO TANG N Ot 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+] 07/24/2016 HUGO TANG N Ot Z51.11 ENCOUNTER FOR ANTINEOPLASTIC CHEMOTHERAP 07/24/2016 HUGO TANG N Ot Z72.0 TOBACCO USE 07/24/2016 HUGO TANG N Ot Z79.4 SENIOR LIVING (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 OF INSULIN 07/24/2016 HUGO TANG N Ot Z79.899 OTHER SENIOR LIVING (CURRENT) DRUG THERAPY 07/24/2016 HUGO TANG N Ot Z90.12 ACQUIRED ABSENCE OF LEFT BREAST AND NIPP 08/03/2016 STEFFANIE CHAVEZ TUMBLER PLATER Ot C50.112 MALIGNANT NEOPLASM OF CENTRAL PORTION OF 08/03/2016 STEFFANIE CHAVEZ TUMBLER PLATER Ot M54.5 LOW BACK PAIN 08/03/2016 ENRRIQUE FUENTES TUMBLER PLATER Ot E11.65 TYPE 2 DIABETES MELLITUS WITH HYPERGLYCE 08/03/2016 CHEL ARRINGTON MD, Ot C50.112 MALIGNANT NEOPLASM OF CENTRAL PORTION OF 08/03/2016 CHEL ARRINGTON MD, Ot 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 08/03/2016 CHEL ARRINGTON MD, Ot E78.1 PURE HYPERGLYCERIDEMIA 08/03/2016 CHEL ARRINGTON MD, Ot E78.5 HYPERLIPIDEMIA, UNSPECIFIED 08/03/2016 CHEL ARRINGTON MD, Ot I12.9 HYPERTENSIVE CHRONIC KIDNEY DISEASE W ST 08/03/2016 CHEL ARRINGTON MD, Ot I25.10 ATHSCL HEART DISEASE OF [place] CORONARY 08/03/2016 CHEL ARRINGTON MD, Ot I25.2 OLD MYOCARDIAL INFARCTION 08/03/2016 CHEL ARRINGTON MD, Ot N18.3 CHRONIC KIDNEY DISEASE, STAGE 3 (MODERAT 08/03/2016 CHEL ARRINGTON MD, Ot 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+] 08/03/2016 CHEL ARRINGTON MD, Ot Z79.4 SENIOR LIVING (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 OF INSULIN 08/03/2016 CHEL ARRINGTON MD, Ot Z79.899 OTHER SENIOR LIVING (CURRENT) DRUG THERAPY 08/03/2016 CHEL ARRINGTON MD, Ot Z87.891 PERSONAL HISTORY OF NICOTINE DEPENDENCE 08/03/2016 CHEL ARRINGTON MD, Ot Z90.12 ACQUIRED ABSENCE OF LEFT BREAST AND NIPP 08/03/2016 CHEL ARRINGTON MD, Ot C50.112 MALIGNANT NEOPLASM OF CENTRAL PORTION OF 08/03/2016 CHEL ARRINGTON MD Ot E11.9 TYPE 2 DIABETES MELLITUS WITHOUT COMPLIC 08/03/2016 CHEL ARRINGTON MD, Ot I25.10 ATHSCL HEART DISEASE OF [place] CORONARY 08/03/2016 CHEL ARRINGTON MD, Ot Z79.899 OTHER SENIOR LIVING (CURRENT) DRUG THERAPY 08/03/2016 SREEKANTH COOLEY Ot E78.2 MIXED HYPERLIPIDEMIA 08/03/2016 SREEKANTH COOLEY Ot I10 ESSENTIAL (PRIMARY) HYPERTENSION 08/03/2016 SREEKANTH COOLEY Ot I21.3 ST ELEVATION (STEMI) MYOCARDIAL INFARCTI 08/03/2016 SREEKANTH COOLEY Ot R06.02 SHORTNESS OF BREATH 08/03/2016 STEFFANIE CHAVEZ Ot C50.112 MALIGNANT NEOPLASM OF CENTRAL PORTION OF 08/03/2016 STEFFANIE CHAVEZ TUMBLER PLATER Ot 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 08/03/2016 STEFFANIE CHAVEZP Ot E78.1 PURE HYPERGLYCERIDEMIA 08/03/2016 SHAUN CHAVEZDAYTON Kang TUMBLER PLATER Ot E78.5 HYPERLIPIDEMIA, UNSPECIFIED 08/03/2016 STEFFANIE CHAVEZ TUMBLER PLATER Ot I12.9 HYPERTENSIVE CHRONIC KIDNEY DISEASE W ST 08/03/2016 STEFFANIE CHAVEZP Ot I25.10 ATHSCL HEART DISEASE OF [place] CORONARY 08/03/2016 TSEFFANIE CHAVEZ Jorge Luis TUMBLER PLATER Ot I25.2 OLD MYOCARDIAL INFARCTION 08/03/2016 STEFFANIE CHAVEZP Ot M54.5 LOW BACK PAIN 08/03/2016 SHAUN CHAVEZDAYTON Jorge Luis THIBODEAUXP Ot N18.3 CHRONIC KIDNEY DISEASE, STAGE 3 (MODERAT 08/03/2016 STEFFANIE CHAVEZ TUMBLER PLATER Ot 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+] 08/03/2016 STEFFANIE CHAVEZP Ot 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 08/03/2016 SHAUN CHAVEZDAYTON Kang TUMBLER PLATER Ot 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 08/03/2016 SHAUN CHAVEZDAYTON Kang TUMBLER PLATER Ot Z87.891 PERSONAL HISTORY OF NICOTINE DEPENDENCE 08/03/2016 SHAUN CHAVEZDAYTON Jorge Luis TUMBLER PLATER Ot Z90.12 ACQUIRED ABSENCE OF LEFT BREAST AND NIPP 08/03/2016 HUGO TANG Ot C50.912 MALIGNANT NEOPLASM OF UNSPECIFIED SITE O 08/03/2016 HUGO TANG Ot D64.9 ANEMIA, UNSPECIFIED 08/03/2016 HUGO TANG N Ot E11.9 TYPE 2 DIABETES MELLITUS WITHOUT COMPLIC 08/03/2016 HUGO TANG Ot E78.1 PURE HYPERGLYCERIDEMIA 08/03/2016 HUGO TANG Ot E78.5 HYPERLIPIDEMIA, UNSPECIFIED 08/03/2016 HUGO TANG Ot I10 ESSENTIAL (PRIMARY) HYPERTENSION 08/03/2016 HUGO TANG N Ot I25.10 ATHSCL HEART DISEASE OF [place] CORONARY 08/03/2016 HUGO TANG N Ot I25.2 OLD MYOCARDIAL INFARCTION 08/03/2016 HUGO TANG Ot 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+] 08/03/2016 HUGO TANG Ot Z51.11 ENCOUNTER FOR ANTINEOPLASTIC CHEMOTHERAP 08/03/2016 HUGO TANG Ot Z72.0 TOBACCO USE 08/03/2016 HUGO TANG Ot Z79.4 SENIOR LIVING (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 OF INSULIN 08/03/2016 HUGO TANG Ot 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 08/03/2016 HUGO TANG Ot Z90.12 ACQUIRED ABSENCE OF LEFT BREAST AND NIPP 08/03/2016 GERARD DO MINE D Ot Z01.818 ENCOUNTER FOR OTHER PREPROCEDURAL EXAMIN 08/03/2016 GERARD DO MINE D Ot Z12.11 ENCOUNTER FOR SCREENING FOR MALIGNANT NE 08/04/2016 GERARD DO, MINE D Ot Z01.818 ENCOUNTER FOR OTHER PREPROCEDURAL EXAMIN 08/04/2016 GERARD DOMINE D Ot Z12.11 ENCOUNTER FOR SCREENING FOR MALIGNANT NE 08/08/2016 STEFFANIE CHAVEZ TUMBLER PLATER Ot C50.112 MALIGNANT NEOPLASM OF CENTRAL PORTION OF 08/08/2016 STEFFANIE CHAVEZ TUMBLER PLATER Ot M54.5 LOW BACK PAIN 08/08/2016 ENRRIQUE FUENTES TUMBLER PLATER Ot E11.65 TYPE 2 DIABETES MELLITUS WITH HYPERGLYCE 08/08/2016 CHEL ARRINGTON MD Ot C50.112 MALIGNANT NEOPLASM OF CENTRAL PORTION OF 08/08/2016 CHEL ARRINGTON MD Ot 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 08/08/2016 CHEL ARRINGTON MD, Ot E78.1 PURE HYPERGLYCERIDEMIA 08/08/2016 CHEL ARRINGTON MD Ot E78.5 HYPERLIPIDEMIA, UNSPECIFIED 08/08/2016 CHEL ARRINGTON MD Ot I12.9 HYPERTENSIVE CHRONIC KIDNEY DISEASE W ST 08/08/2016 CHEL ARRINGTON MD Ot I25.10 ATHSCL HEART DISEASE OF [place] CORONARY 08/08/2016 CHEL ARRINGTON MD Ot I25.2 OLD MYOCARDIAL INFARCTION 08/08/2016 CHEL ARRINGTON MD Ot N18.3 CHRONIC KIDNEY DISEASE, STAGE 3 (MODERAT 08/08/2016 CHEL ARRINGTON MD Ot 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+] 08/08/2016 CHEL ARRINGTON MD Ot Z79.4 SENIOR LIVING (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 OF INSULIN 08/08/2016 CHEL ARRINGTON MD Ot 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 08/08/2016 CHEL ARRINGTON MD Ot Z87.891 PERSONAL HISTORY OF NICOTINE DEPENDENCE 08/08/2016 CHEL ARRINGTON MD Ot Z90.12 ACQUIRED ABSENCE OF LEFT BREAST AND NIPP 08/08/2016 CHEL ARRINGTON MD Ot C50.112 MALIGNANT NEOPLASM OF CENTRAL PORTION OF 08/08/2016 CHEL ARRINGTON MD Ot E11.9 TYPE 2 DIABETES MELLITUS WITHOUT COMPLIC 08/08/2016 HCEL ARRINGTON MD Ot I25.10 ATHSCL HEART DISEASE OF [place] CORONARY 08/08/2016 CHEL ARRINGTON MD, Ot 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 08/08/2016 SREEKANTH COOLEY Ot E78.2 MIXED HYPERLIPIDEMIA 08/08/2016 SREEKANTH COOLEY Ot I10 ESSENTIAL (PRIMARY) HYPERTENSION 08/08/2016 SREEKANTH COOLEY Ot I21.3 ST ELEVATION (STEMI) MYOCARDIAL INFARCTI 08/08/2016 SREEKANTH COOLEY Ot R06.02 SHORTNESS OF BREATH 08/08/2016 STEFFANIE CHAVEZ Ot C50.112 MALIGNANT NEOPLASM OF CENTRAL PORTION OF 08/08/2016 STEFFANIE CHAVEZ Ot 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 08/08/2016 STEFFANIE HCAVEZ Ot E78.1 PURE HYPERGLYCERIDEMIA 08/08/2016 STEFFANIE CHAVEZ Ot E78.5 HYPERLIPIDEMIA, UNSPECIFIED 08/08/2016 STEFFANIE CHAVEZP Ot I12.9 HYPERTENSIVE CHRONIC KIDNEY DISEASE W ST 08/08/2016 STEFFANIE CHAVEZP Ot I25.10 ATHSCL HEART DISEASE OF [place] CORONARY 08/08/2016 STEFFANIE CHAVEZP Ot I25.2 OLD MYOCARDIAL INFARCTION 08/08/2016 STEFFANIE CHAVEZ Ot M54.5 LOW BACK PAIN 08/08/2016 STEFFANIE CHAVEZ Ot N18.3 CHRONIC KIDNEY DISEASE, STAGE 3 (MODERAT 08/08/2016 STEFFANIE CHAVEZP Ot 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+] 08/08/2016 CHAVEZSTEFFANIE Kang TUMBLER PLATER Ot Z79.4 SENIOR LIVING (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 OF INSULIN 08/08/2016 CHAVEZSTEFFANIE Kang TUMBLER PLATER Ot Z79.899 OTHER SENIOR LIVING (CURRENT) DRUG THERAPY 08/08/2016 STEFFANIE CHAVEZ TUMBLER PLATER Ot Z87.891 PERSONAL HISTORY OF NICOTINE DEPENDENCE 08/08/2016 CHAVEZSTEFFANIE Kang TUMBLER PLATER Ot Z90.12 ACQUIRED ABSENCE OF LEFT BREAST AND NIPP 08/08/2016 KITTY HUGO Mendoza Ot C50.912 MALIGNANT NEOPLASM OF UNSPECIFIED SITE O 08/08/2016 HUGO TANG N Ot D64.9 ANEMIA, UNSPECIFIED 08/08/2016 KITTY HUGO N Ot E11.9 TYPE 2 DIABETES MELLITUS WITHOUT COMPLIC 08/08/2016 KITTY HUGO N Ot E78.1 PURE HYPERGLYCERIDEMIA 08/08/2016 KITTY HUGO N Ot E78.5 HYPERLIPIDEMIA, UNSPECIFIED 08/08/2016 KITTYHUGO N Ot I10 ESSENTIAL (PRIMARY) HYPERTENSION 08/08/2016 HUGO TANG N Ot I25.10 ATHSCL HEART DISEASE OF [place] CORONARY 08/08/2016 HUGO TANG N Ot I25.2 OLD MYOCARDIAL INFARCTION 08/08/2016 HUGO TANG N Ot 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+] 08/08/2016 HUGO TANG N Ot Z51.11 ENCOUNTER FOR ANTINEOPLASTIC CHEMOTHERAP 08/08/2016 HUGO TANG N Ot Z72.0 TOBACCO USE 08/08/2016 HUGO TANG N Ot Z79.4 SENIOR LIVING (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 OF INSULIN 08/08/2016 HUGO TANG N Ot Z79.899 OTHER SENIOR LIVING (CURRENT) DRUG THERAPY 08/08/2016 HUGO TANG N Ot Z90.12 ACQUIRED ABSENCE OF LEFT BREAST AND NIPP 08/08/2016 CHAVEZSTEFFANIE Kang TUMBLER PLATER Ot C50.112 MALIGNANT NEOPLASM OF CENTRAL PORTION OF 08/08/2016 CHAVEZSTEFFANIE Kang TUMBLER PLATER Ot M54.5 LOW BACK PAIN 08/08/2016 ALFREDOENRRIQUE Rashawn TUMBLER PLATER Ot E11.65 TYPE 2 DIABETES MELLITUS WITH HYPERGLYCE 08/08/2016 NURY EARL, CHEL Correa Ot C50.112 MALIGNANT NEOPLASM OF CENTRAL PORTION OF 08/08/2016 CHEL ARRINGTON MD, Ot 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 08/08/2016 CHEL ARRINGTON MD, Ot E78.1 PURE HYPERGLYCERIDEMIA 08/08/2016 CHEL ARRINGTON MD, Ot E78.5 HYPERLIPIDEMIA, UNSPECIFIED 08/08/2016 CHEL ARRINGTON MD, Ot I12.9 HYPERTENSIVE CHRONIC KIDNEY DISEASE W ST 08/08/2016 CHEL ARRINGTON MD, Ot I25.10 ATHSCL HEART DISEASE OF [place] CORONARY 08/08/2016 CHEL ARRINGTON MD, Ot I25.2 OLD MYOCARDIAL INFARCTION 08/08/2016 CHEL ARRINGTON MD, Ot N18.3 CHRONIC KIDNEY DISEASE, STAGE 3 (MODERAT 08/08/2016 CHEL ARRINGTON MD, Ot 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+] 08/08/2016 CHEL ARRINGTON MD, Ot 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 08/08/2016 CHEL ARRINGTON MD, Ot 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 08/08/2016 CHEL ARRINGTON MD, Ot Z87.891 PERSONAL HISTORY OF NICOTINE DEPENDENCE 08/08/2016 CHEL ARRINGTON MD, Ot Z90.12 ACQUIRED ABSENCE OF LEFT BREAST AND NIPP 08/08/2016 CHEL ARRINGTON MD, Ot C50.112 MALIGNANT NEOPLASM OF CENTRAL PORTION OF 08/08/2016 CHEL ARRINGTON MD, Ot E11.9 TYPE 2 DIABETES MELLITUS WITHOUT COMPLIC 08/08/2016 CHEL ARRINGTON MD, Ot I25.10 ATHSCL HEART DISEASE OF [place] CORONARY 08/08/2016 CHEL ARRINGTON MD, Ot 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 08/08/2016 SREEKANTH COOLEY Ot E78.2 MIXED HYPERLIPIDEMIA 08/08/2016 SREEKANTH COOLEY Ot I10 ESSENTIAL (PRIMARY) HYPERTENSION 08/08/2016 SREEKANTH COOLEY Ot I21.3 ST ELEVATION (STEMI) MYOCARDIAL INFARCTI 08/08/2016 SREEKANTH COOLEY Ot R06.02 SHORTNESS OF BREATH 08/08/2016 STEFFANIE CHAVEZ Ot C50.112 MALIGNANT NEOPLASM OF CENTRAL PORTION OF 08/08/2016 STEFFANIE CHAVEZ Ot 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 08/08/2016 CHAVEZ, HILAH S TUMBLER PLATER Ot E78.1 PURE HYPERGLYCERIDEMIA 08/08/2016 KATHY STEFFANIE Kang TUMBLER PLATER Ot E78.5 HYPERLIPIDEMIA, UNSPECIFIED 08/08/2016 KATHY STEFFANIE Kang TUMBLER PLATER Ot I12.9 HYPERTENSIVE CHRONIC KIDNEY DISEASE W ST 08/08/2016 KATHY STEFFANIE Kang TUMBLER PLATER Ot I25.10 ATHSCL HEART DISEASE OF [place] CORONARY 08/08/2016 SHAUN CHAVEZDAYTON Kang TUMBLER PLATER Ot I25.2 OLD MYOCARDIAL INFARCTION 08/08/2016 SHAUN CHAVEZDAYTON Kang TUMBLER PLATER Ot M54.5 LOW BACK PAIN 08/08/2016 KATHY STEFFANIE Kang TUMBLER PLATER Ot N18.3 CHRONIC KIDNEY DISEASE, STAGE 3 (MODERAT 08/08/2016 KATHY STEFFANIE Kang TUMBLER PLATER Ot 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+] 08/08/2016 KATHY STEFFANIE Kang TUMBLER PLATER Ot Z79.4 SENIOR LIVING (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 OF INSULIN 08/08/2016 SHAUN CHAVEZDAYTON Kang TUMBLER PLATER Ot Z79.899 OTHER SENIOR LIVING (CURRENT) DRUG THERAPY 08/08/2016 KATHY STEFFANIE Kang TUMBLER PLATER Ot Z87.891 PERSONAL HISTORY OF NICOTINE DEPENDENCE 08/08/2016 KATHY STEFFANIE Kang TUMBLER PLATER Ot Z90.12 ACQUIRED ABSENCE OF LEFT BREAST AND NIPP 08/08/2016 HUGO TANG Ot C50.912 MALIGNANT NEOPLASM OF UNSPECIFIED SITE O 08/08/2016 HUGO TANG Ot D64.9 ANEMIA, UNSPECIFIED 08/08/2016 HUGO TANG Ot E11.9 TYPE 2 DIABETES MELLITUS WITHOUT COMPLIC 08/08/2016 HUGO TANG Ot E78.1 PURE HYPERGLYCERIDEMIA 08/08/2016 HUGO TANG Ot E78.5 HYPERLIPIDEMIA, UNSPECIFIED 08/08/2016 HUGO TANG Ot I10 ESSENTIAL (PRIMARY) HYPERTENSION 08/08/2016 HUGO TANG Ot I25.10 ATHSCL HEART DISEASE OF [place] CORONARY 08/08/2016 HUGO TANG Ot I25.2 OLD MYOCARDIAL INFARCTION 08/08/2016 HUGO TANG Ot 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+] 08/08/2016 HUGO TANG Ot Z51.11 ENCOUNTER FOR ANTINEOPLASTIC CHEMOTHERAP 08/08/2016 HUGO TANG Ot Z72.0 TOBACCO USE 08/08/2016 HUGO TANG Ot Z79.4 SENIOR LIVING (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 OF INSULIN 08/08/2016 HUGO TANG Ot 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 08/08/2016 HUGO TANG Ot Z90.12 ACQUIRED ABSENCE OF LEFT BREAST AND NIPP 08/08/2016 GERARD DO, MINE D Ot D12.3 BENIGN NEOPLASM OF TRANSVERSE COLON 08/08/2016 GERARD DO, MINE D Ot D12.4 BENIGN NEOPLASM OF DESCENDING COLON 08/08/2016 GERARD DO, MINE D Ot D12.5 BENIGN NEOPLASM OF SIGMOID COLON 08/08/2016 GERARD DO, MINE D Ot Z12.11 ENCOUNTER FOR SCREENING FOR MALIGNANT NE 08/10/2016 GERARD DO, MINE D Ot D12.3 BENIGN NEOPLASM OF TRANSVERSE COLON 08/10/2016 GERARD DO, MINE D Ot D12.4 BENIGN NEOPLASM OF DESCENDING COLON 08/10/2016 GERARD DO, MINE D Ot D12.5 BENIGN NEOPLASM OF SIGMOID COLON 08/10/2016 GERARD DO, MINE D Ot Z12.11 ENCOUNTER FOR SCREENING FOR MALIGNANT NE 08/17/2016 GERARD DO, MINE D Ot D12.3 BENIGN NEOPLASM OF TRANSVERSE COLON 08/17/2016 GERARD DO, MINE D Ot D12.4 BENIGN NEOPLASM OF DESCENDING COLON 08/17/2016 GERARD DO, MINE D Ot D12.5 BENIGN NEOPLASM OF SIGMOID COLON 08/17/2016 GERARD DO, MINE D Ot Z12.11 ENCOUNTER FOR SCREENING FOR MALIGNANT NE 08/28/2016 HUGO TANG Ot C50.912 MALIGNANT NEOPLASM OF UNSPECIFIED SITE O 08/28/2016 HUGO TANG Ot D64.9 ANEMIA, UNSPECIFIED 08/28/2016 HUGO TANG Ot E11.9 TYPE 2 DIABETES MELLITUS WITHOUT COMPLIC 08/28/2016 HUGO TANG Ot E78.1 PURE HYPERGLYCERIDEMIA 08/28/2016 HUGO TANG Ot E78.5 HYPERLIPIDEMIA, UNSPECIFIED 08/28/2016 HUGO TANG Ot I10 ESSENTIAL (PRIMARY) HYPERTENSION 08/28/2016 HUGO TANG Ot I25.10 ATHSCL HEART DISEASE OF [place] CORONARY 08/28/2016 HUGO TANG N Ot I25.2 OLD MYOCARDIAL INFARCTION 08/28/2016 HUGO TANG Kelly Ot 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+] 08/28/2016 HUGO TANG N Ot Z51.11 ENCOUNTER FOR ANTINEOPLASTIC CHEMOTHERAP 08/28/2016 HUGO TANG N Ot Z72.0 TOBACCO USE 08/28/2016 KITTY, HUGO N Ot Z79.4 SENIOR LIVING (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 OF INSULIN 08/28/2016 KITTY SANDRAMARISSA N Ot 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 08/28/2016 KITTY, HUGO N Ot Z90.12 ACQUIRED ABSENCE OF LEFT BREAST AND NIPP 09/06/2016 KITTY, HUGO Mendoza Ot C50.912 MALIGNANT NEOPLASM OF UNSPECIFIED SITE O 09/06/2016 KITTY SANDRAMARISSA Kelly Ot D64.9 ANEMIA, UNSPECIFIED 09/06/2016 KITTY, HUGO N Ot E11.9 TYPE 2 DIABETES MELLITUS WITHOUT COMPLIC 09/06/2016 KITTY SANDRAMARISSA N Ot E78.1 PURE HYPERGLYCERIDEMIA 09/06/2016 KITTY HUGO N Ot E78.5 HYPERLIPIDEMIA, UNSPECIFIED 09/06/2016 KITTY, HUGO N Ot I10 ESSENTIAL (PRIMARY) HYPERTENSION 09/06/2016 HUGO TANG N Ot I25.10 ATHSCL HEART DISEASE OF [place] CORONARY 09/06/2016 HUGO TANG N Ot I25.2 OLD MYOCARDIAL INFARCTION 09/06/2016 HUGO TANG Kelly Ot 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+] 09/06/2016 KITTY SANDRAMARISSA Kelly Ot Z45.2 ENCOUNTER FOR ADJUSTMENT AND MANAGEMENT 09/06/2016 KITTY, HUGO N Ot Z51.11 ENCOUNTER FOR ANTINEOPLASTIC CHEMOTHERAP 09/06/2016 KITTY, HUGO Mendoza Ot Z72.0 TOBACCO USE 09/06/2016 HUGO TANG N Ot 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 09/06/2016 KITTY HUGO N Ot Z79.899 OTHER SENIOR LIVING (CURRENT) DRUG THERAPY 09/06/2016 HUGO TANG N Ot Z90.12 ACQUIRED ABSENCE OF LEFT BREAST AND NIPP 10/23/2016 HUGO TANG Ot C50.912 MALIGNANT NEOPLASM OF UNSPECIFIED SITE O 10/23/2016 HUGO TANG Ot D64.9 ANEMIA, UNSPECIFIED 10/23/2016 HUGO TANG Kelly Ot E11.9 TYPE 2 DIABETES MELLITUS WITHOUT COMPLIC 10/23/2016 HUGO TANG Ot E78.1 PURE HYPERGLYCERIDEMIA 10/23/2016 HUGO TANG Kelly Ot E78.5 HYPERLIPIDEMIA, UNSPECIFIED 10/23/2016 HUGO TANG Kelly Ot I10 ESSENTIAL (PRIMARY) HYPERTENSION 10/23/2016 HUGO TANG Kelly Ot I25.10 ATHSCL HEART DISEASE OF [place] CORONARY 10/23/2016 HUGO TANG Kelly Ot I25.2 OLD MYOCARDIAL INFARCTION 10/23/2016 HUGO TANG Kelly Ot 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+] 10/23/2016 HUGO TANG Kelly Ot Z45.2 ENCOUNTER FOR ADJUSTMENT AND MANAGEMENT 10/23/2016 HUGO TANG Kelly Ot Z51.11 ENCOUNTER FOR ANTINEOPLASTIC CHEMOTHERAP 10/23/2016 HUGO TANG Kelly Ot Z72.0 TOBACCO USE 10/23/2016 HUGO TANG Kelly Ot Z79.4 SENIOR LIVING (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 OF INSULIN 10/23/2016 HUGO TANG Kelly Ot 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 10/23/2016 HUGO TANG Kelly Ot Z90.12 ACQUIRED ABSENCE OF LEFT BREAST AND NIPP 10/27/2016 STEFFANIE CHAVEZ TUMBLER PLATER Ot C50.112 MALIGNANT NEOPLASM OF CENTRAL PORTION OF 10/27/2016 STEFFANIE CHAVEZ TUMBLER PLATER Ot M54.5 LOW BACK PAIN 10/27/2016 MADL ENRRIQUE L TUMBLER PLATER Ot E11.65 TYPE 2 DIABETES MELLITUS WITH HYPERGLYCE 10/27/2016 CHEL ARRINGTON MD Ot C50.112 MALIGNANT NEOPLASM OF CENTRAL PORTION OF 10/27/2016 CHEL ARRINGTON MD Ot 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 10/27/2016 CHEL ARRINGTON MD, Ot E78.1 PURE HYPERGLYCERIDEMIA 10/27/2016 CHEL ARRINGTON MD, Ot E78.5 HYPERLIPIDEMIA, UNSPECIFIED 10/27/2016 CHEL ARRINGTON MD, Ot I12.9 HYPERTENSIVE CHRONIC KIDNEY DISEASE W ST 10/27/2016 CHEL ARRINGTON MD, Ot I25.10 ATHSCL HEART DISEASE OF [place] CORONARY 10/27/2016 CHEL ARRINGTON MD, Ot I25.2 OLD MYOCARDIAL INFARCTION 10/27/2016 CHEL ARRINGTON MD, Ot N18.3 CHRONIC KIDNEY DISEASE, STAGE 3 (MODERAT 10/27/2016 CHEL ARRINGTON MD, Ot 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+] 10/27/2016 CHEL ARRINGTON MD, Ot 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 10/27/2016 CHEL ARRINGTON MD, Ot 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 10/27/2016 CHEL ARRINGTON MD, Ot Z87.891 PERSONAL HISTORY OF NICOTINE DEPENDENCE 10/27/2016 CHEL ARRINGTON MD, Ot Z90.12 ACQUIRED ABSENCE OF LEFT BREAST AND NIPP 10/27/2016 CHEL ARRINGTON MD, Ot C50.112 MALIGNANT NEOPLASM OF CENTRAL PORTION OF 10/27/2016 CHEL ARRINGTON MD Ot E11.9 TYPE 2 DIABETES MELLITUS WITHOUT COMPLIC 10/27/2016 CHEL ARRINGTON MD, Ot I25.10 ATHSCL HEART DISEASE OF [place] CORONARY 10/27/2016 CHEL ARRINGTON MD, Ot Z79.899 OTHER SENIOR LIVING (CURRENT) DRUG THERAPY 10/27/2016 SREEKANTH COOLEY Ot E78.2 MIXED HYPERLIPIDEMIA 10/27/2016 SREEKANTH COOLEY Ot I10 ESSENTIAL (PRIMARY) HYPERTENSION 10/27/2016 S[address]AN[address] COOLEY Ot I21.3 ST ELEVATION (STEMI) MYOCARDIAL INFARCTI 10/27/2016 SREEKANTH COOLEY Ot R06.02 SHORTNESS OF BREATH 10/27/2016 STEFFANIE CHAVEZ Ot C50.112 MALIGNANT NEOPLASM OF CENTRAL PORTION OF 10/27/2016 STEFFANIE CHAVEZP Ot 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 10/27/2016 STEFFANIE CHAVEZ Ot E78.1 PURE HYPERGLYCERIDEMIA 10/27/2016 STEFFANIE CHAVEZP Ot E78.5 HYPERLIPIDEMIA, UNSPECIFIED 10/27/2016 STEFFANIE CHAVEZP Ot I12.9 HYPERTENSIVE CHRONIC KIDNEY DISEASE W ST 10/27/2016 STEFFANIE CHAVEZP Ot I25.10 ATHSCL HEART DISEASE OF [place] CORONARY 10/27/2016 CHAVEZSTEFFANIE Kang TUMBLER PLATER Ot I25.2 OLD MYOCARDIAL INFARCTION 10/27/2016 CHAVEZSTEFFANIE Kang TUMBLER PLATER Ot M54.5 LOW BACK PAIN 10/27/2016 STEFFANIE CHAVEZ TUMBLER PLATER Ot N18.3 CHRONIC KIDNEY DISEASE, STAGE 3 (MODERAT 10/27/2016 CHAVEZSTEFFANIE Kang TUMBLER PLATER Ot 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+] 10/27/2016 CHAVEZSTEFFANIE Kang TUMBLER PLATER Ot 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 10/27/2016 CHAVEZSTEFFANIE Kang TUMBLER PLATER Ot 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 10/27/2016 CHAVEZSTEFFANIE Kang TUMBLER PLATER Ot Z87.891 PERSONAL HISTORY OF NICOTINE DEPENDENCE 10/27/2016 CHAVEZSTEFFANIE Kang TUMBLER PLATER Ot Z90.12 ACQUIRED ABSENCE OF LEFT BREAST AND NIPP 10/27/2016 HUGO TANG Ot C50.912 MALIGNANT NEOPLASM OF UNSPECIFIED SITE O 10/27/2016 HUGO TANG Ot D64.9 ANEMIA, UNSPECIFIED 10/27/2016 HUGO TANG Ot E11.9 TYPE 2 DIABETES MELLITUS WITHOUT COMPLIC 10/27/2016 HUGO TANG Ot E78.1 PURE HYPERGLYCERIDEMIA 10/27/2016 HUGO TANG Ot E78.5 HYPERLIPIDEMIA, UNSPECIFIED 10/27/2016 HUGO TANG Ot I10 ESSENTIAL (PRIMARY) HYPERTENSION 10/27/2016 HUGO TANG Ot I25.10 ATHSCL HEART DISEASE OF [place] CORONARY 10/27/2016 HUGO TANG Ot I25.2 OLD MYOCARDIAL INFARCTION 10/27/2016 HUGO TANG Ot 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+] 10/27/2016 HUGO TANG Ot Z45.2 ENCOUNTER FOR ADJUSTMENT AND MANAGEMENT 10/27/2016 HUGO TANG Ot Z51.11 ENCOUNTER FOR ANTINEOPLASTIC CHEMOTHERAP 10/27/2016 HUGO TANG Ot Z72.0 TOBACCO USE 10/27/2016 HUGO TANG Ot Z79.4 SENIOR LIVING (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 OF INSULIN 10/27/2016 HUGO TANG N Ot 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 10/27/2016 HUGO TANG Ot Z90.12 ACQUIRED ABSENCE OF LEFT BREAST AND NIPP 10/30/2016 CHAVEZSTEFFANIE Kang TUMBLER PLATER Ot C50.112 MALIGNANT NEOPLASM OF CENTRAL PORTION OF 10/30/2016 STEFFANIE CHAVEZ TUMBLER PLATER Ot R59.0 LOCALIZED ENLARGED LYMPH NODES 10/31/2016 CHAVEZSTEFFANIE Kang TUMBLER PLATER Ot C50.112 MALIGNANT NEOPLASM OF CENTRAL PORTION OF 10/31/2016 STEFFANIE CHAVEZ TUMBLER PLATER Ot R59.0 LOCALIZED ENLARGED LYMPH NODES 11/02/2016 CHAVEZ STEFFANIE S TUMBLER PLATER Ot C50.112 MALIGNANT NEOPLASM OF CENTRAL PORTION OF 11/02/2016 CHAVEZSTEFFANIE Kang TUMBLER PLATER Ot R59.0 LOCALIZED ENLARGED LYMPH NODES 11/13/2016 SHAUN CHAVEZDAYTON Kang TUMBLER PLATER Ot C50.112 MALIGNANT NEOPLASM OF CENTRAL PORTION OF 11/13/2016 CHAVEZSTEFFANIE Kang TUMBLER PLATER Ot R59.0 LOCALIZED ENLARGED LYMPH NODES 11/22/2016 HUGO TANG Ot C50.912 MALIGNANT NEOPLASM OF UNSPECIFIED SITE O 11/22/2016 HUGO TANG Ot D64.9 ANEMIA, UNSPECIFIED 11/22/2016 HUGO TANG Ot E11.9 TYPE 2 DIABETES MELLITUS WITHOUT COMPLIC 11/22/2016 HUGO TANG Ot E78.1 PURE HYPERGLYCERIDEMIA 11/22/2016 HUGO TANG Ot E78.5 HYPERLIPIDEMIA, UNSPECIFIED 11/22/2016 HUGO TANG Ot I10 ESSENTIAL (PRIMARY) HYPERTENSION 11/22/2016 HUGO TANG Ot I25.10 ATHSCL HEART DISEASE OF [place] CORONARY 11/22/2016 HUGO TANG Ot I25.2 OLD MYOCARDIAL INFARCTION 11/22/2016 HUGO TANG Ot 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+] 11/22/2016 HUGO TANG Ot Z45.2 ENCOUNTER FOR ADJUSTMENT AND MANAGEMENT 11/22/2016 HUGO TANG Ot Z51.11 ENCOUNTER FOR ANTINEOPLASTIC CHEMOTHERAP 11/22/2016 HUGO TANG Ot Z72.0 TOBACCO USE 11/22/2016 HUGO TANG Ot Z79.4 SENIOR LIVING (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 OF INSULIN 11/22/2016 HUGO TANG Ot Z79.899 OTHER SENIOR LIVING (CURRENT) DRUG THERAPY 11/22/2016 SANDRA TANGMARISSA Mendoza Ot Z90.12 ACQUIRED ABSENCE OF LEFT BREAST AND NIPP 12/25/2016 KITTY, HUGO Mendoza Ot C50.912 MALIGNANT NEOPLASM OF UNSPECIFIED SITE O 12/25/2016 KITTY HUGO Mendoza Ot D64.9 ANEMIA, UNSPECIFIED 12/25/2016 KITTYHUGO Ot E11.9 TYPE 2 DIABETES MELLITUS WITHOUT COMPLIC 12/25/2016 HUGO TANG Ot E78.1 PURE HYPERGLYCERIDEMIA 12/25/2016 HUGO TANG Ot E78.5 HYPERLIPIDEMIA, UNSPECIFIED 12/25/2016 HUGO TANG N Ot I10 ESSENTIAL (PRIMARY) HYPERTENSION 12/25/2016 HUGO TANG Ot I25.10 ATHSCL HEART DISEASE OF [place] CORONARY 12/25/2016 KITTYHUGO Ot I25.2 OLD MYOCARDIAL INFARCTION 12/25/2016 KITTYHUGO Ot 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+] 12/25/2016 KITTYHUGO Ot Z45.2 ENCOUNTER FOR ADJUSTMENT AND MANAGEMENT 12/25/2016 KITTYHUGO Ot Z51.11 ENCOUNTER FOR ANTINEOPLASTIC CHEMOTHERAP 12/25/2016 HUGO TANG Ot Z72.0 TOBACCO USE 12/25/2016 HUGO TANG Ot Z79.4 SENIOR LIVING (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 OF INSULIN 12/25/2016 KITTYHUGO Ot 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 12/25/2016 KITTYHUGO Ot Z90.12 ACQUIRED ABSENCE OF LEFT BREAST AND NIPP 01/03/2017 KITTYHUGO Ot C50.112 MALIGNANT NEOPLASM OF CENTRAL PORTION OF 01/03/2017 KITTYHUGO Ot D64.9 ANEMIA, UNSPECIFIED 01/03/2017 HUGO TANG Ot E11.9 TYPE 2 DIABETES MELLITUS WITHOUT COMPLIC 01/03/2017 HUGO TANG Ot E55.9 VITAMIN D DEFICIENCY, UNSPECIFIED 01/03/2017 HUGO TANG Ot E78.1 PURE HYPERGLYCERIDEMIA 01/03/2017 HUGO TANG Ot E78.5 HYPERLIPIDEMIA, UNSPECIFIED 01/03/2017 HUGO TANG Ot I10 ESSENTIAL (PRIMARY) HYPERTENSION 01/03/2017 HUGO TANG N Ot I25.10 ATHSCL HEART DISEASE OF [place] CORONARY 01/03/2017 HUGO TANG Kelly Ot I25.2 OLD MYOCARDIAL INFARCTION 01/03/2017 HUGO TANG Kelly Ot 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+] 01/03/2017 HUGO TANG N Ot Z72.0 TOBACCO USE 01/03/2017 HUGO TANG Kelly Ot Z79.4 SENIOR LIVING (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 OF INSULIN 01/03/2017 HUGO TANG N Ot 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 01/03/2017 HUGO TANG N Ot Z90.12 ACQUIRED ABSENCE OF LEFT BREAST AND NIPP 02/21/2017 KITTY SANDRAMARISSA Kelly Ot C50.112 MALIGNANT NEOPLASM OF CENTRAL PORTION OF 02/21/2017 HUGO TANG Kelly Ot D64.9 ANEMIA, UNSPECIFIED 02/21/2017 HUGO TANG Kelly Ot E11.9 TYPE 2 DIABETES MELLITUS WITHOUT COMPLIC 02/21/2017 HUGO TANG Kelly Ot E55.9 VITAMIN D DEFICIENCY, UNSPECIFIED 02/21/2017 HUGO TANG N Ot E78.1 PURE HYPERGLYCERIDEMIA 02/21/2017 HUGO TANG Kelly Ot E78.5 HYPERLIPIDEMIA, UNSPECIFIED 02/21/2017 HUGO TANG N Ot I10 ESSENTIAL (PRIMARY) HYPERTENSION 02/21/2017 HUGO TANG N Ot I25.10 ATHSCL HEART DISEASE OF [place] CORONARY 02/21/2017 HUGO TANG Kelly Ot I25.2 OLD MYOCARDIAL INFARCTION 02/21/2017 HUGO TANG Kelly Ot 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+] 02/21/2017 HUGO TANG N Ot Z72.0 TOBACCO USE 02/21/2017 HUGO TANG N Ot 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 02/21/2017 KITTY SANDRAMARISSA N Ot Z79.899 OTHER SENIOR LIVING (CURRENT) DRUG THERAPY 02/21/2017 HUGO TANG N Ot Z90.12 ACQUIRED ABSENCE OF LEFT BREAST AND NIPP 02/22/2017 KITTYHUGO Ot C50.112 MALIGNANT NEOPLASM OF CENTRAL PORTION OF 02/22/2017 HUGO TANG N Ot D64.9 ANEMIA, UNSPECIFIED 02/22/2017 HUGO TANG N Ot E11.9 TYPE 2 DIABETES MELLITUS WITHOUT COMPLIC 02/22/2017 HUGO TANG N Ot E55.9 VITAMIN D DEFICIENCY, UNSPECIFIED 02/22/2017 HUGO TANG N Ot E78.1 PURE HYPERGLYCERIDEMIA 02/22/2017 HUGO TANG N Ot E78.5 HYPERLIPIDEMIA, UNSPECIFIED 02/22/2017 HUGO TANG N Ot I10 ESSENTIAL (PRIMARY) HYPERTENSION 02/22/2017 HUGO TANG N Ot I25.10 ATHSCL HEART DISEASE OF [place] CORONARY 02/22/2017 HUGO TANG N Ot I25.2 OLD MYOCARDIAL INFARCTION 02/22/2017 HUGO TANG N Ot 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+] 02/22/2017 HUGO TANG N Ot Z72.0 TOBACCO USE 02/22/2017 HUGO TANG N Ot Z79.4 SENIOR LIVING (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 OF INSULIN 02/22/2017 HUGO TANG N Ot 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 02/22/2017 HUGO TANG N Ot Z90.12 ACQUIRED ABSENCE OF LEFT BREAST AND NIPP 02/23/2017 HUGO TANG N Ot C50.112 MALIGNANT NEOPLASM OF CENTRAL PORTION OF 02/23/2017 HUGO TANG N Ot D64.9 ANEMIA, UNSPECIFIED 02/23/2017 HUGO TANG N Ot E11.9 TYPE 2 DIABETES MELLITUS WITHOUT COMPLIC 02/23/2017 HUGO TANG N Ot E55.9 VITAMIN D DEFICIENCY, UNSPECIFIED 02/23/2017 HUGO TANG N Ot E78.1 PURE HYPERGLYCERIDEMIA 02/23/2017 HUGO TANG N Ot E78.5 HYPERLIPIDEMIA, UNSPECIFIED 02/23/2017 KITTY SANDRAMARISSA N Ot I10 ESSENTIAL (PRIMARY) HYPERTENSION 02/23/2017 KITTY HUGO N Ot I25.10 ATHSCL HEART DISEASE OF [place] CORONARY 02/23/2017 HUGO TANG N Ot I25.2 OLD MYOCARDIAL INFARCTION 02/23/2017 HUGO TANG N Ot 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+] 02/23/2017 KITTYHUGO N Ot Z72.0 TOBACCO USE 02/23/2017 HUGO TANG Ot 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 02/23/2017 HUGO TANG N Ot 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 02/23/2017 HUGO TANG N Ot Z90.12 ACQUIRED ABSENCE OF LEFT BREAST AND NIPP 02/27/2017 HUGO TANG Kelly Ot C50.112 MALIGNANT NEOPLASM OF CENTRAL PORTION OF 02/27/2017 HUGO TANG Ot D64.9 ANEMIA, UNSPECIFIED 02/27/2017 HUGO TANG N Ot E11.9 TYPE 2 DIABETES MELLITUS WITHOUT COMPLIC 02/27/2017 HUGO TANG Kelly Ot E55.9 VITAMIN D DEFICIENCY, UNSPECIFIED 02/27/2017 HUGO TANG N Ot E78.1 PURE HYPERGLYCERIDEMIA 02/27/2017 HUGO TANG Kelly Ot E78.5 HYPERLIPIDEMIA, UNSPECIFIED 02/27/2017 HUGO TANG N Ot I10 ESSENTIAL (PRIMARY) HYPERTENSION 02/27/2017 HUGO TANG Ot I25.10 ATHSCL HEART DISEASE OF [place] CORONARY 02/27/2017 HUGO TANG Ot I25.2 OLD MYOCARDIAL INFARCTION 02/27/2017 HUGO TANG Ot 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+] 02/27/2017 HUGO TANG Ot Z72.0 TOBACCO USE 02/27/2017 HUGO TANG Ot 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 02/27/2017 HUGO TANG Ot 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 02/27/2017 HUGO TANG Ot Z90.12 ACQUIRED ABSENCE OF LEFT BREAST AND NIPP 03/28/2017 STEFFANIE CHAVEZ TUMBLER PLATER Ot C50.112 MALIGNANT NEOPLASM OF CENTRAL PORTION OF 03/28/2017 STEFFANIE CHAVEZ TUMBLER PLATER Ot M54.5 LOW BACK PAIN 03/28/2017 ENRRIQUE FUENTES TUMBLER PLATER Ot E11.65 TYPE 2 DIABETES MELLITUS WITH HYPERGLYCE 03/28/2017 CHEL ARRINGTON MD Ot C50.112 MALIGNANT NEOPLASM OF CENTRAL PORTION OF 03/28/2017 CHEL ARRINGTON MD Ot 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 03/28/2017 CHEL ARRINGTON MD, Ot E78.1 PURE HYPERGLYCERIDEMIA 03/28/2017 CHEL ARRINGTON MD, Ot E78.5 HYPERLIPIDEMIA, UNSPECIFIED 03/28/2017 CHEL ARRINGTON MD, Ot I12.9 HYPERTENSIVE CHRONIC KIDNEY DISEASE W ST 03/28/2017 CHEL ARRINGTON MD, Ot I25.10 ATHSCL HEART DISEASE OF [place] CORONARY 03/28/2017 CHEL ARRINGTON MD, Ot I25.2 OLD MYOCARDIAL INFARCTION 03/28/2017 CHEL ARRINGTON MD, Ot N18.3 CHRONIC KIDNEY DISEASE, STAGE 3 (MODERAT 03/28/2017 CHEL ARRINGTON MD, Ot 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+] 03/28/2017 CHEL ARRINGTON MD, Ot Z79.4 SENIOR LIVING (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 OF INSULIN 03/28/2017 CHEL ARRINGTON MD, Ot Z79.899 OTHER SENIOR LIVING (CURRENT) DRUG THERAPY 03/28/2017 CHEL ARRINGTON MD, Ot Z87.891 PERSONAL HISTORY OF NICOTINE DEPENDENCE 03/28/2017 CHEL ARRINGTON MD, Ot Z90.12 ACQUIRED ABSENCE OF LEFT BREAST AND NIPP 03/28/2017 CHEL ARRINGTON MD, Ot C50.112 MALIGNANT NEOPLASM OF CENTRAL PORTION OF 03/28/2017 CHEL ARRINGTON MD Ot E11.9 TYPE 2 DIABETES MELLITUS WITHOUT COMPLIC 03/28/2017 CHEL ARRINGTON MD, Ot I25.10 ATHSCL HEART DISEASE OF [place] CORONARY 03/28/2017 CHEL ARRINGTON MD, Ot 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 03/28/2017 SREEKANTH COOLEY Ot E78.2 MIXED HYPERLIPIDEMIA 03/28/2017 SREEKANTH COOLEY Ot I10 ESSENTIAL (PRIMARY) HYPERTENSION 03/28/2017 SREEKANTH COOLEY Ot I21.3 ST ELEVATION (STEMI) MYOCARDIAL INFARCTI 03/28/2017 SREEKANTH COOLEY Ot R06.02 SHORTNESS OF BREATH 03/28/2017 STEFFANIE CHAVEZP Ot C50.112 MALIGNANT NEOPLASM OF CENTRAL PORTION OF 03/28/2017 STEFFANIE CHAVEZ TUMBLER PLATER Ot 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 03/28/2017 STEFFANIE CHAVEZP Ot E78.1 PURE HYPERGLYCERIDEMIA 03/28/2017 CHAVEZ, HILAH S TUMBLER PLATER Ot E78.5 HYPERLIPIDEMIA, UNSPECIFIED 03/28/2017 STEFFANIE CHAVEZ TUMBLER PLATER Ot I12.9 HYPERTENSIVE CHRONIC KIDNEY DISEASE W ST 03/28/2017 STEFFANIE CHAVEZ TUMBLER PLATER Ot I25.10 ATHSCL HEART DISEASE OF [place] CORONARY 03/28/2017 STEFFANIE CHAVEZ TUMBLER PLATER Ot I25.2 OLD MYOCARDIAL INFARCTION 03/28/2017 CHAVEZSTEFFANIE Kang TUMBLER PLATER Ot M54.5 LOW BACK PAIN 03/28/2017 STEFFANIE CHAVEZP Ot N18.3 CHRONIC KIDNEY DISEASE, STAGE 3 (MODERAT 03/28/2017 CHAVEZSTEFFANIE Kang TUMBLER PLATER Ot 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+] 03/28/2017 CHAVEZSTEFFANIE Kang TUMBLER PLATER Ot 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 03/28/2017 CHAVEZSTEFFANIE Kang TUMBLER PLATER Ot Z79.899 OTHER SENIOR LIVING (CURRENT) DRUG THERAPY 03/28/2017 CHAVEZSTEFFANIE KangP Ot Z87.891 PERSONAL HISTORY OF NICOTINE DEPENDENCE 03/28/2017 STEFFANIE CHAVEZ TUMBLER PLATER Ot Z90.12 ACQUIRED ABSENCE OF LEFT BREAST AND NIPP 03/28/2017 CHAVEZSTEFFANIE Kang TUMBLER PLATER Ot C50.112 MALIGNANT NEOPLASM OF CENTRAL PORTION OF 03/28/2017 CHAVEZSTEFFANIE Kang TUMBLER PLATER Ot R59.0 LOCALIZED ENLARGED LYMPH NODES 03/28/2017 HUGO TANG Ot C50.112 MALIGNANT NEOPLASM OF CENTRAL PORTION OF 03/28/2017 HUGO TANG Ot D64.9 ANEMIA, UNSPECIFIED 03/28/2017 HUGO TANG Ot E11.9 TYPE 2 DIABETES MELLITUS WITHOUT COMPLIC 03/28/2017 HUGO TANG Ot E55.9 VITAMIN D DEFICIENCY, UNSPECIFIED 03/28/2017 HUGO TANG Ot E78.1 PURE HYPERGLYCERIDEMIA 03/28/2017 HUGO TANG Ot E78.5 HYPERLIPIDEMIA, UNSPECIFIED 03/28/2017 HUGO TANG Ot I10 ESSENTIAL (PRIMARY) HYPERTENSION 03/28/2017 HUGO TANG Ot I25.10 ATHSCL HEART DISEASE OF [place] CORONARY 03/28/2017 HUGO TANG Ot I25.2 OLD MYOCARDIAL INFARCTION 03/28/2017 KITTY, BOBAN N Ot 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+] 03/28/2017 HUGO TANG N Ot Z72.0 TOBACCO USE 03/28/2017 HUGO TANG N Ot 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 03/28/2017 HUGO TANG N Ot 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 03/28/2017 HUGO TANG N Ot Z90.12 ACQUIRED ABSENCE OF LEFT BREAST AND NIPP 04/04/2017 HUGO TANG N Ot C50.112 MALIGNANT NEOPLASM OF CENTRAL PORTION OF 04/04/2017 HUGO TANG N Ot D64.9 ANEMIA, UNSPECIFIED 04/04/2017 HUGO TANG N Ot E11.9 TYPE 2 DIABETES MELLITUS WITHOUT COMPLIC 04/04/2017 HUGO TANG Kelly Ot E55.9 VITAMIN D DEFICIENCY, UNSPECIFIED 04/04/2017 HUGO TANG N Ot E78.1 PURE HYPERGLYCERIDEMIA 04/04/2017 HUGO TANG N Ot E78.5 HYPERLIPIDEMIA, UNSPECIFIED 04/04/2017 HUGO TANG N Ot I10 ESSENTIAL (PRIMARY) HYPERTENSION 04/04/2017 HUGO TANG N Ot I25.10 ATHSCL HEART DISEASE OF [place] CORONARY 04/04/2017 HUGO TANG N Ot I25.2 OLD MYOCARDIAL INFARCTION 04/04/2017 HUGO TANG Ot 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+] 04/04/2017 HUGO TANG N Ot Z72.0 TOBACCO USE 04/04/2017 HUGO TANG Kelly Ot 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 04/04/2017 HUGO TANG N Ot 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 04/04/2017 HUGO TANG N Ot Z90.12 ACQUIRED ABSENCE OF LEFT BREAST AND NIPP 04/11/2017 STEFFANIE CHAVEZ TUMBLER PLATER Ot C50.112 MALIGNANT NEOPLASM OF CENTRAL PORTION OF 04/11/2017 STEFFANIE CHAVEZ TUMBLER PLATER Ot Z12.31 ENCNTR SCREEN MAMMOGRAM FOR MALIGNANT NE 05/23/2017 KITTY SANDRAMARISSA N Ot C50.112 MALIGNANT NEOPLASM OF CENTRAL PORTION OF 05/23/2017 HUGO TANG Kelly Ot D64.9 ANEMIA, UNSPECIFIED 05/23/2017 KITTY HUGO N Ot E11.9 TYPE 2 DIABETES MELLITUS WITHOUT COMPLIC 05/23/2017 KITTYHUGO N Ot E55.9 VITAMIN D DEFICIENCY, UNSPECIFIED 05/23/2017 KITTYHUGO N Ot E78.1 PURE HYPERGLYCERIDEMIA 05/23/2017 KITTYHUGO N Ot E78.5 HYPERLIPIDEMIA, UNSPECIFIED 05/23/2017 KITTYHUGO N Ot I10 ESSENTIAL (PRIMARY) HYPERTENSION 05/23/2017 KITTYHUGO N Ot I25.10 ATHSCL HEART DISEASE OF [place] CORONARY 05/23/2017 KITTY HUGO N Ot I25.2 OLD MYOCARDIAL INFARCTION 05/23/2017 KITTY HUGO N Ot 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+] 05/23/2017 KITTYHUGO N Ot Z72.0 TOBACCO USE 05/23/2017 KITTYHUGO N Ot Z79.4 SENIOR LIVING (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 OF INSULIN 05/23/2017 HUGO TANG N Ot Z79.899 OTHER SENIOR LIVING (CURRENT) DRUG THERAPY 05/23/2017 KITTYHUGO N Ot Z90.12 ACQUIRED ABSENCE OF LEFT BREAST AND NIPP 05/28/2017 KITTYHUGO N Ot C50.112 MALIGNANT NEOPLASM OF CENTRAL PORTION OF 05/28/2017 KITTYHUGO Ot D64.9 ANEMIA, UNSPECIFIED 05/28/2017 KITTYHUGO N Ot E11.9 TYPE 2 DIABETES MELLITUS WITHOUT COMPLIC 05/28/2017 HUGO TANG N Ot E55.9 VITAMIN D DEFICIENCY, UNSPECIFIED 05/28/2017 KITTYHUGO N Ot E78.1 PURE HYPERGLYCERIDEMIA 05/28/2017 KITTYHUGO N Ot E78.5 HYPERLIPIDEMIA, UNSPECIFIED 05/28/2017 KITTYSANDRAAN N Ot I10 ESSENTIAL (PRIMARY) HYPERTENSION 05/28/2017 HUGO TANG N Ot I25.10 ATHSCL HEART DISEASE OF [place] CORONARY 05/28/2017 KITTY HUGO N Ot I25.2 OLD MYOCARDIAL INFARCTION 05/28/2017 KITTYHUGO N Ot 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+] 05/28/2017 HUGO TANG N Ot Z72.0 TOBACCO USE 05/28/2017 HUGO TANG N Ot Z79.4 SENIOR LIVING (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 OF INSULIN 05/28/2017 HUGO TANG N Ot 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 05/28/2017 HUGO TANG N Ot Z90.12 ACQUIRED ABSENCE OF LEFT BREAST AND NIPP 05/29/2017 HUGO TANG Kelly Ot C50.112 MALIGNANT NEOPLASM OF CENTRAL PORTION OF 05/29/2017 HUGO TANG Kelly Ot D64.9 ANEMIA, UNSPECIFIED 05/29/2017 KITTY HUGO N Ot E11.9 TYPE 2 DIABETES MELLITUS WITHOUT COMPLIC 05/29/2017 KITTY SANDRAMARISSA N Ot E55.9 VITAMIN D DEFICIENCY, UNSPECIFIED 05/29/2017 KITTYHUGO N Ot E78.1 PURE HYPERGLYCERIDEMIA 05/29/2017 KITTYHUGO N Ot E78.5 HYPERLIPIDEMIA, UNSPECIFIED 05/29/2017 KITTYSANDRAMARISSA N Ot I10 ESSENTIAL (PRIMARY) HYPERTENSION 05/29/2017 KITTYHUGO Ot I25.10 ATHSCL HEART DISEASE OF [place] CORONARY 05/29/2017 HUGO TANG Kelly Ot I25.2 OLD MYOCARDIAL INFARCTION 05/29/2017 UHGO TANG Kelly Ot 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+] 05/29/2017 HUGO TANG Kelly Ot Z72.0 TOBACCO USE 05/29/2017 HUGO TANG Kelly Ot Z79.4 SENIOR LIVING (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 OF INSULIN 05/29/2017 HUGO TANG Kelly Ot Z79.899 OTHER SENIOR LIVING (CURRENT) DRUG THERAPY 05/29/2017 HUGO TANG Kelly Ot Z90.12 ACQUIRED ABSENCE OF LEFT BREAST AND NIPP 06/23/2017 KITTYSANDRAMARISSA Kelly Ot C50.112 MALIGNANT NEOPLASM OF CENTRAL PORTION OF 06/23/2017 KITTY SANDRAMARISSA N Ot D64.9 ANEMIA, UNSPECIFIED 06/23/2017 KITTYHUGO N Ot E11.9 TYPE 2 DIABETES MELLITUS WITHOUT COMPLIC 06/23/2017 KITTYHUGO N Ot E55.9 VITAMIN D DEFICIENCY, UNSPECIFIED 06/23/2017 KITTYHUGO N Ot E78.1 PURE HYPERGLYCERIDEMIA 06/23/2017 KITTYHUGO N Ot E78.5 HYPERLIPIDEMIA, UNSPECIFIED 06/23/2017 HUGO TAGN Ot I10 ESSENTIAL (PRIMARY) HYPERTENSION 06/23/2017 KITTYHUGO Ot I25.10 ATHSCL HEART DISEASE OF [place] CORONARY 06/23/2017 KITTYHUGO Ot I25.2 OLD MYOCARDIAL INFARCTION 06/23/2017 KITTY, HUGO Mendoza Ot 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+] 06/23/2017 KITTYHUGO Ot Z45.2 ENCOUNTER FOR ADJUSTMENT AND MANAGEMENT 06/23/2017 HUGO TANG Ot Z72.0 TOBACCO USE 06/23/2017 HUGO TANG Ot Z79.4 SENIOR LIVING (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 OF INSULIN 06/23/2017 HUGO TANG Ot 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 06/23/2017 HUGO TANG Ot Z90.12 ACQUIRED ABSENCE OF LEFT BREAST AND NIPP 06/29/2017 KESHIA ABAD 715.15 OSTEOARTHROSIS, LOCALIZED, PRIMARY, INVOLVING PELVIC REGION AND THIGH 06/29/2017 KESHIA ABAD M16.11 UNILATERAL PRIMARY OSTEOARTHRITIS, RIGHT HIP 07/04/2017 HUGO TANG Ot C50.112 MALIGNANT NEOPLASM OF CENTRAL PORTION OF 07/04/2017 HUGO TANG Ot D64.9 ANEMIA, UNSPECIFIED 07/04/2017 HUGO TANG Ot E11.9 TYPE 2 DIABETES MELLITUS WITHOUT COMPLIC 07/04/2017 HUGO TANG Ot E55.9 VITAMIN D DEFICIENCY, UNSPECIFIED 07/04/2017 HUGO TANG Ot E78.1 PURE HYPERGLYCERIDEMIA 07/04/2017 HUGO TANG Ot E78.5 HYPERLIPIDEMIA, UNSPECIFIED 07/04/2017 HUGO TANG Ot I10 ESSENTIAL (PRIMARY) HYPERTENSION 07/04/2017 HUGO TANG Ot I25.10 ATHSCL HEART DISEASE OF [place] CORONARY 07/04/2017 HUGO TANG Ot I25.2 OLD MYOCARDIAL INFARCTION 07/04/2017 HUGO TANG Ot 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+] 07/04/2017 HUGO TANG Ot Z45.2 ENCOUNTER FOR ADJUSTMENT AND MANAGEMENT 07/04/2017 HUGO TANG Ot Z72.0 TOBACCO USE 07/04/2017 HUGO TANG Ot Z79.4 SENIOR LIVING (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 OF INSULIN 07/04/2017 HUGO TANG Ot 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 07/04/2017 HUGO TANG Ot Z90.12 ACQUIRED ABSENCE OF LEFT BREAST AND NIPP 07/12/2017 KESHIA ABAD 715.15 OSTEOARTHROSIS, LOCALIZED, PRIMARY, INVOLVING PELVIC REGION AND THIGH 07/12/2017 KESHIA ABAD M16.11 UNILATERAL PRIMARY OSTEOARTHRITIS, RIGHT HIP 07/12/2017 KESHIA ABAD V64.3 PROCEDURE NOT CARRIED OUT FOR OTHER REASONS 07/12/2017 KESHIA ABAD Z53.9 PROCEDURE AND TREATMENT NOT CARRIED OUT, UNSPECIFIED REASON 07/21/2017 HUGO TANG Ot C50.112 MALIGNANT NEOPLASM OF CENTRAL PORTION OF 07/21/2017 HUGO TANG Ot D64.9 ANEMIA, UNSPECIFIED 07/21/2017 HUGO TANG Ot E11.9 TYPE 2 DIABETES MELLITUS WITHOUT COMPLIC 07/21/2017 HUGO TANG Ot E55.9 VITAMIN D DEFICIENCY, UNSPECIFIED 07/21/2017 HUGO TANG Ot E78.1 PURE HYPERGLYCERIDEMIA 07/21/2017 HUGO TANG Ot E78.5 HYPERLIPIDEMIA, UNSPECIFIED 07/21/2017 HUGO TANG Ot I10 ESSENTIAL (PRIMARY) HYPERTENSION 07/21/2017 HUGO TANG Ot I25.10 ATHSCL HEART DISEASE OF [place] CORONARY 07/21/2017 HUGO TANG Ot I25.2 OLD MYOCARDIAL INFARCTION 07/21/2017 HUGO TANG Ot 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+] 07/21/2017 HUGO TANG Ot Z45.2 ENCOUNTER FOR ADJUSTMENT AND MANAGEMENT 07/21/2017 HUGO TANG Ot Z72.0 TOBACCO USE 07/21/2017 HUGO TANG Ot Z79.4 SENIOR LIVING (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 OF INSULIN 07/21/2017 HUGO TANG Ot Z79.899 OTHER SENIOR LIVING (CURRENT) DRUG THERAPY 07/21/2017 HUGO TANG Ot Z90.12 ACQUIRED ABSENCE OF LEFT BREAST AND NIPP 07/30/2017 HUGO TANG Ot C50.112 MALIGNANT NEOPLASM OF CENTRAL PORTION OF 07/30/2017 HUGO TANG N Ot D64.9 ANEMIA, UNSPECIFIED 07/30/2017 KITTY HUGO N Ot E11.9 TYPE 2 DIABETES MELLITUS WITHOUT COMPLIC 07/30/2017 KITTY HUGO N Ot E55.9 VITAMIN D DEFICIENCY, UNSPECIFIED 07/30/2017 KITTY, SANDRAMARISSA N Ot E78.1 PURE HYPERGLYCERIDEMIA 07/30/2017 KITTYHUGO N Ot E78.5 HYPERLIPIDEMIA, UNSPECIFIED 07/30/2017 KITTYHUGO N Ot I10 ESSENTIAL (PRIMARY) HYPERTENSION 07/30/2017 KITTYHUGO N Ot I25.10 ATHSCL HEART DISEASE OF [place] CORONARY 07/30/2017 KITTYHUGO N Ot I25.2 OLD MYOCARDIAL INFARCTION 07/30/2017 KITTYHUGO N Ot 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+] 07/30/2017 KITTYHUGO N Ot Z45.2 ENCOUNTER FOR ADJUSTMENT AND MANAGEMENT 07/30/2017 HUGO TANG Ot Z72.0 TOBACCO USE 07/30/2017 HUGO TANG N Ot Z79.4 SENIOR LIVING (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 OF INSULIN 07/30/2017 KITTYHUGO N Ot Z79.899 OTHER SENIOR LIVING (CURRENT) DRUG THERAPY 07/30/2017 HUGO TANG N Ot Z90.12 ACQUIRED ABSENCE OF LEFT BREAST AND NIPP 08/06/2017 KITTYHUGO N Ot C50.112 MALIGNANT NEOPLASM OF CENTRAL PORTION OF 08/06/2017 KITTY, SANDRAMARISSA Kelly Ot D64.9 ANEMIA, UNSPECIFIED 08/06/2017 KITTYHUGO N Ot E11.9 TYPE 2 DIABETES MELLITUS WITHOUT COMPLIC 08/06/2017 KITTYHUGO N Ot E55.9 VITAMIN D DEFICIENCY, UNSPECIFIED 08/06/2017 KITTYHUGO N Ot E78.1 PURE HYPERGLYCERIDEMIA 08/06/2017 KITTYHUGO LUJAN N Ot E78.5 HYPERLIPIDEMIA, UNSPECIFIED 08/06/2017 KITTY BOBAN N Ot I10 ESSENTIAL (PRIMARY) HYPERTENSION 08/06/2017 KITTYSANDRAAN N Ot I25.10 ATHSCL HEART DISEASE OF [place] CORONARY 08/06/2017 KITTYHUGO N Ot I25.2 OLD MYOCARDIAL INFARCTION 08/06/2017 HUGO TANG Ot 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+] 08/06/2017 HUGO TANG Ot Z72.0 TOBACCO USE 08/06/2017 HUGO TANG Ot 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 08/06/2017 HUGO TANG Ot Z79.899 OTHER SENIOR LIVING (CURRENT) DRUG THERAPY 08/06/2017 HUGO TANG Ot Z90.12 ACQUIRED ABSENCE OF LEFT BREAST AND NIPP 08/15/2017 NEEMA EMMANUEL MD Ot E78.2 MIXED HYPERLIPIDEMIA 08/15/2017 NEEMA EMMANUEL MD Ot I12.9 HYPERTENSIVE CHRONIC KIDNEY DISEASE W ST 08/15/2017 NEEMA EMMANUEL MD, Ot I25.10 ATHSCL HEART DISEASE OF [place] CORONARY 08/15/2017 NEEMA EMMANUEL MD Ot N18.3 CHRONIC KIDNEY DISEASE, STAGE 3 (MODERAT 09/03/2017 FARIBA DO, OSMAN K Ot 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 09/03/2017 FARIBA DO, OSMAN K Ot E11.40 TYPE 2 DIABETES MELLITUS WITH DIABETIC N 09/03/2017 FARIBA DO, OSMAN K Ot E83.42 HYPOMAGNESEMIA 09/03/2017 FARIBA DO, OSMAN K Ot E87.8 OTH DISORDERS OF ELECTROLYTE AND FLUID B 09/03/2017 FARIBA DO, OSMAN K Ot I12.9 HYPERTENSIVE CHRONIC KIDNEY DISEASE W ST 09/03/2017 FARIBA DO, OSMAN K Ot I25.10 ATHSCL HEART DISEASE OF [place] CORONARY 09/03/2017 FARIBA DO, OSMAN K Ot I25.2 OLD MYOCARDIAL INFARCTION 09/03/2017 FARIBA DO, OSMAN K Ot N18.9 CHRONIC KIDNEY DISEASE, UNSPECIFIED 09/03/2017 FARIBA DO, OSMAN K Ot R42 DIZZINESS AND GIDDINESS 09/03/2017 FARIBA DO, OSMAN K Ot Z79.4 SENIOR LIVING (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 OF INSULIN 09/03/2017 FARIBA DO OSMAN K Ot Z82.49 FAMILY HX OF [place] HEART DIS AND OTH DI 09/03/2017 FARIBA DO OSMAN K Ot Z85.3 PERSONAL HISTORY OF MALIGNANT NEOPLASM O 09/03/2017 FARIBA DO OSMAN K Ot Z87.442 PERSONAL HISTORY OF URINARY CALCULI 09/03/2017 FARIBA BACH OSMAN K Ot Z87.891 PERSONAL HISTORY OF NICOTINE DEPENDENCE 09/03/2017 OSMAN LINK DO Ot Z92.21 PERSONAL HISTORY OF ANTINEOPLASTIC CHEMO 09/03/2017 FARIBA BACH OSMAN K Ot Z92.3 PERSONAL HISTORY OF IRRADIATION 09/03/2017 FARIBA BACH OSMAN K Ot Z95.5 PRESENCE OF CORONARY ANGIOPLASTY IMPLANT 09/03/2017 OSMAN LINK DO Ot Z98.51 TUBAL LIGATION STATUS 09/05/2017 OSMAN LINK DO K Ot 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 09/05/2017 OSMAN LINK DO Ot E11.40 TYPE 2 DIABETES MELLITUS WITH DIABETIC N 09/05/2017 OSMAN LINK DO Ot E83.42 HYPOMAGNESEMIA 09/05/2017 OSMAN LINK DO K Ot E87.8 OTH DISORDERS OF ELECTROLYTE AND FLUID B 09/05/2017 OSMAN LINK DO Ot I12.9 HYPERTENSIVE CHRONIC KIDNEY DISEASE W ST 09/05/2017 OSMAN LINK DO Ot I25.10 ATHSCL HEART DISEASE OF [place] CORONARY 09/05/2017 OSMAN LINK DO Ot I25.2 OLD MYOCARDIAL INFARCTION 09/05/2017 OSMAN LINK DO Ot N18.9 CHRONIC KIDNEY DISEASE, UNSPECIFIED 09/05/2017 OSMAN LINK DO Ot R42 DIZZINESS AND GIDDINESS 09/05/2017 OSMAN LINK DO Ot Z79.4 SENIOR LIVING (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 OF INSULIN 09/05/2017 OSMAN LINK DO Ot Z82.49 FAMILY HX OF [place] HEART DIS AND OTH DI 09/05/2017 OSMAN LINK DO K Ot Z85.3 PERSONAL HISTORY OF MALIGNANT NEOPLASM O 09/05/2017 OSMAN LINK DO Ot Z87.442 PERSONAL HISTORY OF URINARY CALCULI 09/05/2017 OSMAN LINK DO Ot Z87.891 PERSONAL HISTORY OF NICOTINE DEPENDENCE 09/05/2017 OSMAN LINK DO Ot Z92.21 PERSONAL HISTORY OF ANTINEOPLASTIC CHEMO 09/05/2017 OSMAN LINK DO Ot Z92.3 PERSONAL HISTORY OF IRRADIATION 09/05/2017 OSMAN LINK DO Ot Z95.5 PRESENCE OF CORONARY ANGIOPLASTY IMPLANT 09/05/2017 FARIBA BACH OSMAN K Ot Z98.51 TUBAL LIGATION STATUS 09/05/2017 HUGO TANG Kelly Ot C50.112 MALIGNANT NEOPLASM OF CENTRAL PORTION OF 09/05/2017 HUGO TANG Kelly Ot D64.9 ANEMIA, UNSPECIFIED 09/05/2017 HUGO TANG Kelly Ot E11.9 TYPE 2 DIABETES MELLITUS WITHOUT COMPLIC 09/05/2017 HUGO TANG Kelly Ot E55.9 VITAMIN D DEFICIENCY, UNSPECIFIED 09/05/2017 HUGO TANG Kelly Ot E78.1 PURE HYPERGLYCERIDEMIA 09/05/2017 KITTY SANDRAMARISSA Kelly Ot E78.5 HYPERLIPIDEMIA, UNSPECIFIED 09/05/2017 KITTY SANDRAMARISSA Kelly Ot I10 ESSENTIAL (PRIMARY) HYPERTENSION 09/05/2017 KITTY SANDRAMARISSA Kelly Ot I25.10 ATHSCL HEART DISEASE OF [place] CORONARY 09/05/2017 KITTY SANDRAMARISSA Kelly Ot I25.2 OLD MYOCARDIAL INFARCTION 09/05/2017 HUGO TANG Kelly Ot 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+] 09/05/2017 HUGO TANG Kelly Ot Z72.0 TOBACCO USE 09/05/2017 HUGO TANG Kelly Ot Z79.4 SENIOR LIVING (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 OF INSULIN 09/05/2017 HUGO TANG Kelly Ot Z79.899 OTHER SENIOR LIVING (CURRENT) DRUG THERAPY 09/05/2017 HUGO TANG Kelly Ot Z90.12 ACQUIRED ABSENCE OF LEFT BREAST AND NIPP 09/09/2017 FARIBA GENO BACHA K Ot 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 09/09/2017 FARIBA DO OSMAN K Ot E11.40 TYPE 2 DIABETES MELLITUS WITH DIABETIC N 09/09/2017 FARIBA DO OSMAN K Ot E83.42 HYPOMAGNESEMIA 09/09/2017 FARIBA DO OSMAN K Ot E87.8 OTH DISORDERS OF ELECTROLYTE AND FLUID B 09/09/2017 FARIBA DO OSMAN K Ot I12.9 HYPERTENSIVE CHRONIC KIDNEY DISEASE W ST 09/09/2017 FARIBA DO OSMAN K Ot I25.10 ATHSCL HEART DISEASE OF [place] CORONARY 09/09/2017 FARIBA DO OSMAN K Ot I25.2 OLD MYOCARDIAL INFARCTION 09/09/2017 FARIBA BACH, OSMAN K Ot N18.9 CHRONIC KIDNEY DISEASE, UNSPECIFIED 09/09/2017 FARIBAOSMAN Ozuna DO Ot R42 DIZZINESS AND GIDDINESS 09/09/2017 OSMAN LINK DO Ot Z79.4 SENIOR LIVING (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 OF INSULIN 09/09/2017 FARIBA OSMAN Ot Z82.49 FAMILY HX OF [place] HEART DIS AND OTH DI 09/09/2017 FARIBAOSMAN Ozuna DO Ot Z85.3 PERSONAL HISTORY OF MALIGNANT NEOPLASM O 09/09/2017 FARIBA BACHOSMAN Ot Z87.442 PERSONAL HISTORY OF URINARY CALCULI 09/09/2017 FARIBA BACHOSMAN Ot Z87.891 PERSONAL HISTORY OF NICOTINE DEPENDENCE 09/09/2017 OSMAN LINK DO Ot Z92.21 PERSONAL HISTORY OF ANTINEOPLASTIC CHEMO 09/09/2017 FARIBA BACHOSMAN Ot Z92.3 PERSONAL HISTORY OF IRRADIATION 09/09/2017 FARIBA OSMAN Ot Z95.5 PRESENCE OF CORONARY ANGIOPLASTY IMPLANT 09/09/2017 OSMAN LINK DO Ot Z98.51 TUBAL LIGATION STATUS 10/31/2017 HUGO TANG Ot C50.112 MALIGNANT NEOPLASM OF CENTRAL PORTION OF 10/31/2017 HUGO TANG Ot D64.9 ANEMIA, UNSPECIFIED 10/31/2017 HUGO TANG Ot E11.9 TYPE 2 DIABETES MELLITUS WITHOUT COMPLIC 10/31/2017 HUGO TANG Ot E55.9 VITAMIN D DEFICIENCY, UNSPECIFIED 10/31/2017 HUGO TANG Ot E78.1 PURE HYPERGLYCERIDEMIA 10/31/2017 HUGO TANG Ot E78.5 HYPERLIPIDEMIA, UNSPECIFIED 10/31/2017 HUGO TANG Ot I10 ESSENTIAL (PRIMARY) HYPERTENSION 10/31/2017 HUGO TANG Ot I25.10 ATHSCL HEART DISEASE OF [place] CORONARY 10/31/2017 HUGO TANG Ot I25.2 OLD MYOCARDIAL INFARCTION 10/31/2017 HUGO TANG Ot 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+] 10/31/2017 HUGO TANG Ot Z72.0 TOBACCO USE 10/31/2017 HUGO TANG Ot 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 10/31/2017 HUGO TANG Ot Z79.899 OTHER SENIOR LIVING (CURRENT) DRUG THERAPY 10/31/2017 HUGO TANG Ot Z90.12 ACQUIRED ABSENCE OF LEFT BREAST AND NIPP 11/01/2017 HUGO TANG Ot C50.112 MALIGNANT NEOPLASM OF CENTRAL PORTION OF 11/01/2017 HUGO TANG Ot D64.9 ANEMIA, UNSPECIFIED 11/01/2017 HUGO TANG Ot E11.9 TYPE 2 DIABETES MELLITUS WITHOUT COMPLIC 11/01/2017 HUGO TANG Ot E55.9 VITAMIN D DEFICIENCY, UNSPECIFIED 11/01/2017 HUGO TANG Ot E78.1 PURE HYPERGLYCERIDEMIA 11/01/2017 HUGO TANG Ot E78.5 HYPERLIPIDEMIA, UNSPECIFIED 11/01/2017 HUGO TANG Ot I10 ESSENTIAL (PRIMARY) HYPERTENSION 11/01/2017 HUGO TANG Ot I25.10 ATHSCL HEART DISEASE OF [place] CORONARY 11/01/2017 HUGO TANG Ot I25.2 OLD MYOCARDIAL INFARCTION 11/01/2017 HUGO TANG Ot 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+] 11/01/2017 HUGO TANG Ot Z72.0 TOBACCO USE 11/01/2017 HUGO TANG Ot 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 11/01/2017 HUGO TANG Ot 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 11/01/2017 HUGO TANG Ot Z90.12 ACQUIRED ABSENCE OF LEFT BREAST AND NIPP 11/14/2017 KESHIA ABAD W 250.00 11/14/2017 POLLOKESHIA W 272.4 OTHER AND UNSPECIFIED HYPERLIPIDEMIA 11/14/2017 KESHIA ABAD W 285.1 11/14/2017 POLLOKESHIA ALMODOVAR W 338.18 11/14/2017 POLLOKESHIA ALMODOVAR W 401.0 11/14/2017 KESHIA ABAD W 414.01 CORONARY ATHEROSCLEROSIS OF [place] CORONARY ARTERY 11/14/2017 KESHIA ABAD W 530.81 ESOPHAGEAL REFLUX 11/14/2017 KESHIA ABAD W 585.9 CHRONIC KIDNEY DISEASE, UNSPECIFIED 11/14/2017 KESHIA ABAD A 715.15 11/14/2017 POLLOKESHIA ALMODOVAR W 780.60 11/14/2017 POLLO, KESHIA Boyd D62 ACUTE POSTHEMORRHAGIC ANEMIA 11/14/2017 POLLO, KESHIA Boyd E11.9 TYPE 2 DIABETES MELLITUS WITHOUT COMPLICATIONS 11/14/2017 POLLO, KESHIA Boyd E78.5 HYPERLIPIDEMIA, UNSPECIFIED 11/14/2017 POLLO, KESHIA Boyd G89.18 OTHER ACUTE POSTPROCEDURAL PAIN 11/14/2017 POLLO, KESHIA Boyd I10 ESSENTIAL (PRIMARY) HYPERTENSION 11/14/2017 POLLO, KESHIA Boyd I25.10 ATHSCL HEART DISEASE OF [place] CORONARY ARTERY W/O ANG PCTRS 11/14/2017 POLLO, KESHIA Boyd K21.9 GASTRO-ESOPHAGEAL REFLUX DISEASE WITHOUT ESOPHAGITIS 11/14/2017 POLLO, KSEHIA Soto M16.11 11/14/2017 POLLO, KESHIA Boyd N18.9 CHRONIC KIDNEY DISEASE, UNSPECIFIED 11/14/2017 POLLO, KESHIA Boyd R50.9 FEVER , UNSPECIFIED 12/11/2017 POLLO, KESHIA Boyd 250.00 12/11/2017 POLLO, KESHIA Boyd 401.0 MALIGNANT ESSENTIAL HYPERTENSION 12/11/2017 POLLO, KESHIA Boyd 707.05 PRESSURE ULCER, BUTTOCK 12/11/2017 POLLO, KESHIA Boyd E11.9 TYPE 2 DIABETES MELLITUS WITHOUT COMPLICATIONS 12/11/2017 POLLO, KESHIA Boyd I10 ESSENTIAL (PRIMARY) HYPERTENSION 12/11/2017 POLLO, KESHIA Boyd L89.322 PRESSURE ULCER OF LEFT BUTTOCK, STAGE 2 12/11/2017 POLLO, KESHIA Boyd V43.64 HIP JOINT REPLACED BY OTHER MEANS 12/11/2017 POLLO, KESHIA Soto V54.81 12/11/2017 POLLO, KESHIA Boyd V58.81 ENCOUNTER FOR FITTING AND ADJUSTMENT OF VASCULAR CATHETER 12/11/2017 POLOL, KESHIA Boyd Z45.2 ENCOUNTER FOR ADJUSTMENT AND MANAGEMENT OF VAD 12/11/2017 POLLO, KESHIA Soto Z47.1 AFTERCARE FOLLOWING JOINT REPLACEMENT SURGERY 12/11/2017 POLLO, KESHIA Boyd Z96.641 PRESENCE OF RIGHT ARTIFICIAL HIP JOINT 12/14/2017 POLLO, KESHIA Boyd V43.64 HIP JOINT REPLACED BY OTHER MEANS 12/14/2017 POLLO, KESHIA Boyd Z96.641 PRESENCE OF RIGHT ARTIFICIAL HIP JOINT 12/14/2017 POLLO, KESHIA Boyd V43.64 HIP JOINT REPLACED BY OTHER MEANS 12/14/2017 POLLO, EKSHIA Boyd V54.81 AFTERCARE FOLLOWING JOINT REPLACEMENT 12/14/2017 KESHIA ABAD Z47.1 AFTERCARE FOLLOWING JOINT REPLACEMENT SURGERY 12/14/2017 KESHIA ABAD Z96.641 PRESENCE OF RIGHT ARTIFICIAL HIP JOINT 01/04/2018 HUGO TANG Kelly Ot C50.112 MALIGNANT NEOPLASM OF CENTRAL PORTION OF 01/04/2018 HUGO TANG Kelly Ot D64.9 ANEMIA, UNSPECIFIED 01/04/2018 HUGO TANG Kelly Ot E11.9 TYPE 2 DIABETES MELLITUS WITHOUT COMPLIC 01/04/2018 HUGO TANG Kelly Ot E55.9 VITAMIN D DEFICIENCY, UNSPECIFIED 01/04/2018 HUGO TANG Kelly Ot E78.1 PURE HYPERGLYCERIDEMIA 01/04/2018 HUGO TANG Kelly Ot E78.5 HYPERLIPIDEMIA, UNSPECIFIED 01/04/2018 HUGO TANG Kelly Ot I10 ESSENTIAL (PRIMARY) HYPERTENSION 01/04/2018 HUGO TANG Kelly Ot I25.10 ATHSCL HEART DISEASE OF [place] CORONARY 01/04/2018 HUGO TANG Kelly Ot I25.2 OLD MYOCARDIAL INFARCTION 01/04/2018 HUGO TANG Kelly Ot 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+] 01/04/2018 HUGO TANG Kelly Ot Z72.0 TOBACCO USE 01/04/2018 HUGO TANG Kelly Ot 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 01/04/2018 HUGO TANG Kelly Ot 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 01/04/2018 HUGO TANG Kelly Ot Z90.12 ACQUIRED ABSENCE OF LEFT BREAST AND NIPP 01/18/2018 KESHIA ABAD V43.64 HIP JOINT REPLACED BY OTHER MEANS 01/18/2018 KESHIA ABAD V54.81 AFTERCARE FOLLOWING JOINT REPLACEMENT 01/18/2018 KESHIA ABAD Z47.1 AFTERCARE FOLLOWING JOINT REPLACEMENT SURGERY 01/18/2018 KESHIA ABAD Z96.641 PRESENCE OF RIGHT ARTIFICIAL HIP JOINT 01/25/2018 STEFFANIE CHAVEZP Ot C50.112 MALIGNANT NEOPLASM OF CENTRAL PORTION OF 01/25/2018 STEFFANIE CHAVEZ TUMBLER PLATER Ot E55.9 VITAMIN D DEFICIENCY, UNSPECIFIED 01/25/2018 STEFFANIE CHAVEZ TUMBLER PLATER Ot M81.0 AGE-RELATED OSTEOPOROSIS W/O CURRENT PAT 01/25/2018 STEFFANIE CHAVEZ TUMBLER PLATER Ot M85.88 OTH DISRD OF BONE DENSITY AND STRUCTURE, 01/25/2018 STEFFANIE CHAVEZ TUMBLER PLATER Ot Z13.820 ENCOUNTER FOR SCREENING FOR OSTEOPOROSIS 01/25/2018 STEFFANIE CHAVEZ TUMBLER PLATER Ot Z78.0 ASYMPTOMATIC MENOPAUSAL STATE 01/25/2018 STEFFANIE CHAVEZ TUMBLER PLATER Ot Z96.641 PRESENCE OF RIGHT ARTIFICIAL HIP JOINT 01/25/2018 SREEKANTH COOLEY Ot E78.5 HYPERLIPIDEMIA, UNSPECIFIED 01/25/2018 SREEKANTH COOLEY Ot I10 ESSENTIAL (PRIMARY) HYPERTENSION 01/25/2018 SREEKANTH COOLEY Ot I25.10 ATHSCL HEART DISEASE OF [place] CORONARY 01/25/2018 SREEKANTH COOLEY Ot I34.0 NONRHEUMATIC MITRAL (VALVE) INSUFFICIENC 01/25/2018 SREEKANTH COOLEY Ot R06.02 SHORTNESS OF BREATH 01/30/2018 KATHY STEFFANIE Kang TUMBLER PLATER Ot C50.112 MALIGNANT NEOPLASM OF CENTRAL PORTION OF 01/30/2018 KATHY STEFFANIE Kang TUMBLER PLATER Ot M54.5 LOW BACK PAIN 01/30/2018 JAMAENRRIQUE Morocho Rashawn THIBODEAUXP Ot E11.65 TYPE 2 DIABETES MELLITUS WITH HYPERGLYCE 01/30/2018 CHEL ARRINGTON MD Ot C50.112 MALIGNANT NEOPLASM OF CENTRAL PORTION OF 01/30/2018 CHEL ARRINGTON MD Ot 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 01/30/2018 CHEL ARRINGTON MD, Ot E78.1 PURE HYPERGLYCERIDEMIA 01/30/2018 CHEL ARRINGTON MD, Ot E78.5 HYPERLIPIDEMIA, UNSPECIFIED 01/30/2018 CHEL ARRINGTON MD Ot I12.9 HYPERTENSIVE CHRONIC KIDNEY DISEASE W ST 01/30/2018 CHEL ARRINGTON MD Ot I25.10 ATHSCL HEART DISEASE OF [place] CORONARY 01/30/2018 CHEL ARRINGTON MD Ot I25.2 OLD MYOCARDIAL INFARCTION 01/30/2018 CHEL ARRINGTON MD Ot N18.3 CHRONIC KIDNEY DISEASE, STAGE 3 (MODERAT 01/30/2018 CHEL ARRINGTON MD Ot 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+] 01/30/2018 CHEL ARRINGTON MD, Ot 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 01/30/2018 CHEL ARRINGTON MD Ot 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 01/30/2018 CHEL ARRINGTON MD, Ot Z87.891 PERSONAL HISTORY OF NICOTINE DEPENDENCE 01/30/2018 CHEL ARRINGTON MD, Ot Z90.12 ACQUIRED ABSENCE OF LEFT BREAST AND NIPP 01/30/2018 CHEL ARRINGTON MD Ot C50.112 MALIGNANT NEOPLASM OF CENTRAL PORTION OF 01/30/2018 CHEL ARRINGTON MD Ot E11.9 TYPE 2 DIABETES MELLITUS WITHOUT COMPLIC 01/30/2018 CHEL ARRINGTON MD, Ot I25.10 ATHSCL HEART DISEASE OF [place] CORONARY 01/30/2018 CHEL ARRINGTON MD, Ot Z79.899 OTHER SENIOR LIVING (CURRENT) DRUG THERAPY 01/30/2018 SREEKANTH COOLEY Ot E78.2 MIXED HYPERLIPIDEMIA 01/30/2018 SREEKANTH COOLEY Ot I10 ESSENTIAL (PRIMARY) HYPERTENSION 01/30/2018 SREEKANTH COOLEY Ot I21.3 ST ELEVATION (STEMI) MYOCARDIAL INFARCTI 01/30/2018 SREEKANTH COOLEY Ot R06.02 SHORTNESS OF BREATH 01/30/2018 STEFFANIE CHAVEZ Ot C50.112 MALIGNANT NEOPLASM OF CENTRAL PORTION OF 01/30/2018 STEFFANIE CHAVEZ Ot 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 01/30/2018 STEFFANIE CHAVEZ Ot E78.1 PURE HYPERGLYCERIDEMIA 01/30/2018 STEFFANIE CHAVEZ Ot E78.5 HYPERLIPIDEMIA, UNSPECIFIED 01/30/2018 STEFFANIE CHAVEZP Ot I12.9 HYPERTENSIVE CHRONIC KIDNEY DISEASE W ST 01/30/2018 STEFFANIE CHAVEZP Ot I25.10 ATHSCL HEART DISEASE OF [place] CORONARY 01/30/2018 STEFFANIE CHAVEZP Ot I25.2 OLD MYOCARDIAL INFARCTION 01/30/2018 STEFFANIE CHAVEZP Ot M54.5 LOW BACK PAIN 01/30/2018 STEFFANIE CHAVEZP Ot N18.3 CHRONIC KIDNEY DISEASE, STAGE 3 (MODERAT 01/30/2018 STEFFANIE CHAVEZ Ot 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+] 01/30/2018 STEFFANIE CHAVEZ TUMBLER PLATER Ot Z79.4 SENIOR LIVING (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 OF INSULIN 01/30/2018 STEFFANIE CHAVEZ TUMBLER PLATER Ot 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 01/30/2018 STEFFANIE CHAVEZP Ot Z87.891 PERSONAL HISTORY OF NICOTINE DEPENDENCE 01/30/2018 STEFFANIE CHAVEZP Ot Z90.12 ACQUIRED ABSENCE OF LEFT BREAST AND NIPP 01/30/2018 STEFFANIE CHAVEZP Ot C50.112 MALIGNANT NEOPLASM OF CENTRAL PORTION OF 01/30/2018 STEFFANIE CHAVEZP Ot R59.0 LOCALIZED ENLARGED LYMPH NODES 01/30/2018 STEFFANIE CHAVEZ Ot C50.112 MALIGNANT NEOPLASM OF CENTRAL PORTION OF 01/30/2018 STEFFANIE CHVAEZ Ot Z12.31 ENCNTR SCREEN MAMMOGRAM FOR MALIGNANT NE 01/30/2018 CHOLO EARL, NEEMA Britton Ot E78.2 MIXED HYPERLIPIDEMIA 01/30/2018 NEEMA EMMANUEL MD Ot I12.9 HYPERTENSIVE CHRONIC KIDNEY DISEASE W ST 01/30/2018 NEEMA EMMANUEL MD Ot I25.10 ATHSCL HEART DISEASE OF [place] CORONARY 01/30/2018 CHOLO EARL, NEEMA Britton Ot N18.3 CHRONIC KIDNEY DISEASE, STAGE 3 (MODERAT 01/30/2018 ENRRIQUE FUENTES Ot N18.4 CHRONIC KIDNEY DISEASE, STAGE 4 (SEVERE) 01/30/2018 STEFFANIE CHAVEZ Ot C50.112 MALIGNANT NEOPLASM OF CENTRAL PORTION OF 01/30/2018 STEFFANIE CHAVEZP Ot E55.9 VITAMIN D DEFICIENCY, UNSPECIFIED 01/30/2018 STEFFANIE CHAVEZ TUMBLER PLATER Ot M81.0 AGE-RELATED OSTEOPOROSIS W/O CURRENT PAT 01/30/2018 STEFFANIE CHAVEZP Ot M85.88 OTH DISRD OF BONE DENSITY AND STRUCTURE, 01/30/2018 STEFFANIE CHAVEZP Ot Z13.820 ENCOUNTER FOR SCREENING FOR OSTEOPOROSIS 01/30/2018 STEFFANIE CHAVEZ TUMBLER PLATER Ot Z78.0 ASYMPTOMATIC MENOPAUSAL STATE 01/30/2018 STEFFANIE CHAVEZ TUMBLER PLATER Ot Z96.641 PRESENCE OF RIGHT ARTIFICIAL HIP JOINT 01/30/2018 HUGO TANG Ot C50.112 MALIGNANT NEOPLASM OF CENTRAL PORTION OF 01/30/2018 HUGO TANG Ot D64.9 ANEMIA, UNSPECIFIED 01/30/2018 HUGO TANG Ot E11.9 TYPE 2 DIABETES MELLITUS WITHOUT COMPLIC 01/30/2018 HUGO TANG Ot E55.9 VITAMIN D DEFICIENCY, UNSPECIFIED 01/30/2018 HUGO TANG Kelly Ot E78.1 PURE HYPERGLYCERIDEMIA 01/30/2018 HUGO TANG Kelly Ot E78.5 HYPERLIPIDEMIA, UNSPECIFIED 01/30/2018 HUGO TANG Kelly Ot I10 ESSENTIAL (PRIMARY) HYPERTENSION 01/30/2018 HUGO TANG Kelly Ot I25.10 ATHSCL HEART DISEASE OF [place] CORONARY 01/30/2018 HUGO TANG Kelly Ot I25.2 OLD MYOCARDIAL INFARCTION 01/30/2018 HUGO TANG Kelly Ot 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+] 01/30/2018 HUGO TANG Kelly Ot Z72.0 TOBACCO USE 01/30/2018 HUGO TANG Kelly Ot Z79.4 SENIOR LIVING (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 OF INSULIN 01/30/2018 HUGO TANG Kelly Ot 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 01/30/2018 HUGO TANG Kelly Ot Z90.12 ACQUIRED ABSENCE OF LEFT BREAST AND NIPP 01/30/2018 SREEKANTH COOLEY Ot E78.5 HYPERLIPIDEMIA, UNSPECIFIED 01/30/2018 SREEKANTH COOLEY Ot I10 ESSENTIAL (PRIMARY) HYPERTENSION 01/30/2018 SREEKANTH COOLEY Ot I25.10 ATHSCL HEART DISEASE OF [place] CORONARY 01/30/2018 SREEKANTH COOLEY Ot I34.0 NONRHEUMATIC MITRAL (VALVE) INSUFFICIENC 01/30/2018 SREEKANTH COOLEY Ot R06.02 SHORTNESS OF BREATH 01/30/2018 IMAN FUENTESNYBrittany THIBODEAUXP Ot E78.5 HYPERLIPIDEMIA, UNSPECIFIED 01/31/2018 STEFFANIE CHAVEZ TUMBLER PLATER Ot C50.112 MALIGNANT NEOPLASM OF CENTRAL PORTION OF 01/31/2018 STEFFANIE CHAVEZ TUMBLER PLATER Ot M54.5 LOW BACK PAIN 01/31/2018 ENRRIQUE FUENTES TUMBLER PLATER Ot E11.65 TYPE 2 DIABETES MELLITUS WITH HYPERGLYCE 01/31/2018 CHEL ARRINGTON MD, Ot C50.112 MALIGNANT NEOPLASM OF CENTRAL PORTION OF 01/31/2018 CHEL ARRINGTON MD Ot 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 01/31/2018 CHEL ARRINGTON MD, Ot E78.1 PURE HYPERGLYCERIDEMIA 01/31/2018 CHEL ARRINGTON MD, Ot E78.5 HYPERLIPIDEMIA, UNSPECIFIED 01/31/2018 CHEL ARRINGTON MD, Ot I12.9 HYPERTENSIVE CHRONIC KIDNEY DISEASE W ST 01/31/2018 CHEL ARRINGTON MD, Ot I25.10 ATHSCL HEART DISEASE OF [place] CORONARY 01/31/2018 CHEL ARRINGTON MD, Ot I25.2 OLD MYOCARDIAL INFARCTION 01/31/2018 CHEL ARRINGTON MD, Ot N18.3 CHRONIC KIDNEY DISEASE, STAGE 3 (MODERAT 01/31/2018 CHEL ARRINGTON MD, Ot 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+] 01/31/2018 CHEL ARRINGTON MD, Ot Z79.4 SENIOR LIVING (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 OF INSULIN 01/31/2018 CHEL ARRINGTON MD, Ot 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 01/31/2018 CHEL ARRINGTON MD, Ot Z87.891 PERSONAL HISTORY OF NICOTINE DEPENDENCE 01/31/2018 CHEL ARRINGTON MD, Ot Z90.12 ACQUIRED ABSENCE OF LEFT BREAST AND NIPP 01/31/2018 CHEL ARRINGTON MD, Ot C50.112 MALIGNANT NEOPLASM OF CENTRAL PORTION OF 01/31/2018 CHEL ARRINGTON MD Ot E11.9 TYPE 2 DIABETES MELLITUS WITHOUT COMPLIC 01/31/2018 CHEL ARRINGTON MD, Ot I25.10 ATHSCL HEART DISEASE OF [place] CORONARY 01/31/2018 CHEL ARRINGTON MD, Ot 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 01/31/2018 SREEKANTH COOLEY Ot E78.2 MIXED HYPERLIPIDEMIA 01/31/2018 SREEKANTH COOLEY Ot I10 ESSENTIAL (PRIMARY) HYPERTENSION 01/31/2018 S[address]ANTH COOLEY Ot I21.3 ST ELEVATION (STEMI) MYOCARDIAL INFARCTI 01/31/2018 SREEKANTH COOLEY Ot R06.02 SHORTNESS OF BREATH 01/31/2018 STEFFANIE CHAVEZ S TUMBLER PLATER Ot C50.112 MALIGNANT NEOPLASM OF CENTRAL PORTION OF 01/31/2018 STEFFANIE CHAVEZ TUMBLER PLATER Ot 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 01/31/2018 KATHY STEFFANIE Kang TUMBLER PLATER Ot E78.1 PURE HYPERGLYCERIDEMIA 01/31/2018 KATHY STEFFANIE Kang TUMBLER PLATER Ot E78.5 HYPERLIPIDEMIA, UNSPECIFIED 01/31/2018 KATHY STEFFANIE Kang TUMBLER PLATER Ot I12.9 HYPERTENSIVE CHRONIC KIDNEY DISEASE W ST 01/31/2018 CHAVEZ STEFFANIE Kang TUMBLER PLATER Ot I25.10 ATHSCL HEART DISEASE OF [place] CORONARY 01/31/2018 KATHY STEFFANIE Kang TUMBLER PLATER Ot I25.2 OLD MYOCARDIAL INFARCTION 01/31/2018 KATHY STEFFANIE THIBODEAUXP Ot M54.5 LOW BACK PAIN 01/31/2018 CHAVEZSTEFFANIEP Ot N18.3 CHRONIC KIDNEY DISEASE, STAGE 3 (MODERAT 01/31/2018 KATHY STEFFANIE Kang TUMBLER PLATER Ot 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+] 01/31/2018 KATHY STEFFANIE Kang TUMBLER PLATER Ot 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 01/31/2018 CHAVEZSTEFFANIE TUMBLER PLATER Ot Z79.899 OTHER SENIOR LIVING (CURRENT) DRUG THERAPY 01/31/2018 CHAVEZSTEFFANIE TUMBLER PLATER Ot Z87.891 PERSONAL HISTORY OF NICOTINE DEPENDENCE 01/31/2018 CHAVEZ STEFFANIE Kang TUMBLER PLATER Ot Z90.12 ACQUIRED ABSENCE OF LEFT BREAST AND NIPP 01/31/2018 AKTHY STEFFANIE THIBODEAUXP Ot C50.112 MALIGNANT NEOPLASM OF CENTRAL PORTION OF 01/31/2018 CHAVEZ STEFFANIE Kang TUMBLER PLATER Ot R59.0 LOCALIZED ENLARGED LYMPH NODES 01/31/2018 KATHY STEFFANIE Kang TUMBLER PLATER Ot C50.112 MALIGNANT NEOPLASM OF CENTRAL PORTION OF 01/31/2018 KATHY STEFFANIE Kang TUMBLER PLATER Ot Z12.31 ENCNTR SCREEN MAMMOGRAM FOR MALIGNANT NE 01/31/2018 NEEMA EMMANUEL MD Ot E78.2 MIXED HYPERLIPIDEMIA 01/31/2018 NEEMA EMMANUEL MD Ot I12.9 HYPERTENSIVE CHRONIC KIDNEY DISEASE W ST 01/31/2018 NEEMA EMMANUEL MD Ot I25.10 ATHSCL HEART DISEASE OF [place] CORONARY 01/31/2018 CHOLO EARL, NEEMA Britton Ot N18.3 CHRONIC KIDNEY DISEASE, STAGE 3 (MODERAT 01/31/2018 ALFREDO ENRRIQUE L TUMBLER PLATER Ot N18.4 CHRONIC KIDNEY DISEASE, STAGE 4 (SEVERE) 01/31/2018 STEFFANIE CHAVEZ TUMBLER PLATER Ot C50.112 MALIGNANT NEOPLASM OF CENTRAL PORTION OF 01/31/2018 STEFFANIE CHAVEZ TUMBLER PLATER Ot E55.9 VITAMIN D DEFICIENCY, UNSPECIFIED 01/31/2018 STEFFANIE CHAVEZ TUMBLER PLATER Ot M81.0 AGE-RELATED OSTEOPOROSIS W/O CURRENT PAT 01/31/2018 STEFFANIE CHAVEZ TUMBLER PLATER Ot M85.88 OTH DISRD OF BONE DENSITY AND STRUCTURE, 01/31/2018 STEFFANIE CHAVEZ TUMBLER PLATER Ot Z13.820 ENCOUNTER FOR SCREENING FOR OSTEOPOROSIS 01/31/2018 STEFFANIE CHAVEZ TUMBLER PLATER Ot Z78.0 ASYMPTOMATIC MENOPAUSAL STATE 01/31/2018 STEFFANIE CHAVEZ TUMBLER PLATER Ot Z96.641 PRESENCE OF RIGHT ARTIFICIAL HIP JOINT 01/31/2018 HUGO TANG Ot C50.112 MALIGNANT NEOPLASM OF CENTRAL PORTION OF 01/31/2018 HUGO TANG Ot D64.9 ANEMIA, UNSPECIFIED 01/31/2018 HUGO TANG Ot E11.9 TYPE 2 DIABETES MELLITUS WITHOUT COMPLIC 01/31/2018 HUGO TANG Ot E55.9 VITAMIN D DEFICIENCY, UNSPECIFIED 01/31/2018 HUGO TANG Ot E78.1 PURE HYPERGLYCERIDEMIA 01/31/2018 HUGO TANG Ot E78.5 HYPERLIPIDEMIA, UNSPECIFIED 01/31/2018 HUGO TANG Ot I10 ESSENTIAL (PRIMARY) HYPERTENSION 01/31/2018 HUGO TANG Ot I25.10 ATHSCL HEART DISEASE OF [place] CORONARY 01/31/2018 HUGO TANG Ot I25.2 OLD MYOCARDIAL INFARCTION 01/31/2018 HUGO TANG Ot 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+] 01/31/2018 HUGO TANG Ot Z72.0 TOBACCO USE 01/31/2018 HUGO TANG Ot Z79.4 SENIOR LIVING (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 OF INSULIN 01/31/2018 HUGO TANG Ot Z79.899 OTHER SENIOR LIVING (CURRENT) DRUG THERAPY 01/31/2018 HUGO TANG Kelly Ot Z90.12 ACQUIRED ABSENCE OF LEFT BREAST AND NIPP 01/31/2018 SREEKANTH COOLEY Ot E78.5 HYPERLIPIDEMIA, UNSPECIFIED 01/31/2018 SREEKANTH COOLEY Ot I10 ESSENTIAL (PRIMARY) HYPERTENSION 01/31/2018 SREEKANTH COOLEY Ot I25.10 ATHSCL HEART DISEASE OF [place] CORONARY 01/31/2018 SREEKANTH COOLEY Ot I34.0 NONRHEUMATIC MITRAL (VALVE) INSUFFICIENC 01/31/2018 SREEKANTH COOLEY Ot R06.02 SHORTNESS OF BREATH 01/31/2018 ENRRIQUE FUENTES TUMBLER PLATER Ot E78.5 HYPERLIPIDEMIA, UNSPECIFIED 02/01/2018 SREEKANTH COOLEY Ot E78.2 MIXED HYPERLIPIDEMIA 02/01/2018 SREEKANTH COOLEY Ot I10 ESSENTIAL (PRIMARY) HYPERTENSION 02/06/2018 NEEMA EMMANUEL MD Ot D64.9 ANEMIA, UNSPECIFIED 02/06/2018 NEEMA EMMANUEL MD Ot E11.9 TYPE 2 DIABETES MELLITUS WITHOUT COMPLIC 02/06/2018 NEEMA EMMANUEL MD, Ot E78.1 PURE HYPERGLYCERIDEMIA 02/06/2018 NEEMA EMMANUEL MD Ot E78.5 HYPERLIPIDEMIA, UNSPECIFIED 02/06/2018 NEEMA EMMANUEL MD Ot I12.9 HYPERTENSIVE CHRONIC KIDNEY DISEASE W ST 02/06/2018 NEEMA EMMANUEL MD Ot I25.10 ATHSCL HEART DISEASE OF [place] CORONARY 02/06/2018 NEEMA EMMANUEL MD Ot I25.2 OLD MYOCARDIAL INFARCTION 02/06/2018 NEEMA EMMANUEL MD Ot N18.3 CHRONIC KIDNEY DISEASE, STAGE 3 (MODERAT 02/06/2018 NEEMA EMMANUEL MD Ot R07.9 CHEST PAIN, UNSPECIFIED 02/06/2018 NEEMA EMMANUEL MD, Ot Z79.4 SENIOR LIVING (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 OF INSULIN 02/06/2018 NEEMA EMMANUEL MD, Ot Z79.899 OTHER SENIOR LIVING (CURRENT) DRUG THERAPY 02/06/2018 CHOLO MD, BASHAR J Ot Z85.3 PERSONAL HISTORY OF MALIGNANT NEOPLASM O 02/06/2018 NEEMA EMMANUEL MD Ot Z87.891 PERSONAL HISTORY OF NICOTINE DEPENDENCE 02/07/2018 NEEMA EMMANUEL MD Ot D64.9 ANEMIA, UNSPECIFIED 02/07/2018 NEEMA EMMANUEL MD Ot E11.9 TYPE 2 DIABETES MELLITUS WITHOUT COMPLIC 02/07/2018 NEEMA EMMANUEL MD Ot E78.1 PURE HYPERGLYCERIDEMIA 02/07/2018 NEEMA EMMANUEL MD Ot E78.5 HYPERLIPIDEMIA, UNSPECIFIED 02/07/2018 NEEMA EMMANUEL MD Ot I12.9 HYPERTENSIVE CHRONIC KIDNEY DISEASE W ST 02/07/2018 NEEMA EMMANUEL MD Ot I25.10 ATHSCL HEART DISEASE OF [place] CORONARY 02/07/2018 NEEMA EMMANUEL MD Ot I25.2 OLD MYOCARDIAL INFARCTION 02/07/2018 NEEMA EMMANUEL MD Ot N18.3 CHRONIC KIDNEY DISEASE, STAGE 3 (MODERAT 02/07/2018 NEEMA EMMANUEL MD Ot R07.9 CHEST PAIN, UNSPECIFIED 02/07/2018 NEEMA EMMANUEL MD Ot 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 02/07/2018 NEEMA EMMANUEL MD Ot 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 02/07/2018 NEEMA EMMANUEL MD Ot Z85.3 PERSONAL HISTORY OF MALIGNANT NEOPLASM O 02/07/2018 NEEMA EMMANUEL MD Ot Z87.891 PERSONAL HISTORY OF NICOTINE DEPENDENCE 02/08/2018 STEFFANIE CHAVEZ Ot C50.112 MALIGNANT NEOPLASM OF CENTRAL PORTION OF 02/08/2018 STEFFANIE CHAVEZ Ot E55.9 VITAMIN D DEFICIENCY, UNSPECIFIED 02/08/2018 STEFFANIE CHAVEZ Ot M81.0 AGE-RELATED OSTEOPOROSIS W/O CURRENT PAT 02/08/2018 STEFFANIE CHAVEZ Ot M85.88 OTH DISRD OF BONE DENSITY AND STRUCTURE, 02/08/2018 STEFFANIE CHAVEZ Ot Z13.820 ENCOUNTER FOR SCREENING FOR OSTEOPOROSIS 02/08/2018 STEFFANIE CHAVEZ Ot Z78.0 ASYMPTOMATIC MENOPAUSAL STATE 02/08/2018 STEFFANIE CHAVEZ Ot Z96.641 PRESENCE OF RIGHT ARTIFICIAL HIP JOINT 02/08/2018 SREEKANTH COOLEY Ot E78.5 HYPERLIPIDEMIA, UNSPECIFIED 02/08/2018 SREEKANTH COOLEY Ot I10 ESSENTIAL (PRIMARY) HYPERTENSION 02/08/2018 SREEKANTH COOLEY Ot I25.10 ATHSCL HEART DISEASE OF [place] CORONARY 02/08/2018 SREEKANTH COOLEY Ot I34.0 NONRHEUMATIC MITRAL (VALVE) INSUFFICIENC 02/08/2018 SREEKANTH COOLEY Ot R06.02 SHORTNESS OF BREATH 02/12/2018 NEEMA EMMANUEL MD Ot D64.9 ANEMIA, UNSPECIFIED 02/12/2018 NEEMA EMMANUEL MD Ot E11.9 TYPE 2 DIABETES MELLITUS WITHOUT COMPLIC 02/12/2018 NEEMA EMMANUEL MD Ot E78.1 PURE HYPERGLYCERIDEMIA 02/12/2018 NEEMA EMMANUEL MD Ot E78.5 HYPERLIPIDEMIA, UNSPECIFIED 02/12/2018 NEEMA EMMANUEL MD Ot I12.9 HYPERTENSIVE CHRONIC KIDNEY DISEASE W ST 02/12/2018 NEEMA EMMANUEL MD, Ot I25.10 ATHSCL HEART DISEASE OF [place] CORONARY 02/12/2018 NEEMA EMMANUEL MD Ot I25.2 OLD MYOCARDIAL INFARCTION 02/12/2018 NEEMA EMMANUEL MD, Ot N18.3 CHRONIC KIDNEY DISEASE, STAGE 3 (MODERAT 02/12/2018 NEEMA EMMANUEL MD Ot R07.9 CHEST PAIN, UNSPECIFIED 02/12/2018 NEEMA EMMANUEL MD Ot 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 02/12/2018 NEEMA EMMANUEL MD, Ot Z79.899 OTHER SENIOR LIVING (CURRENT) DRUG THERAPY 02/12/2018 NEEMA EMMANUEL MD, Ot Z85.3 PERSONAL HISTORY OF MALIGNANT NEOPLASM O 02/12/2018 NEEMA EMMANUEL MD, Ot Z87.891 PERSONAL HISTORY OF NICOTINE DEPENDENCE 02/12/2018 HUGO TANG Ot C50.112 MALIGNANT NEOPLASM OF CENTRAL PORTION OF 02/12/2018 HUGO TANG Ot D64.9 ANEMIA, UNSPECIFIED 02/12/2018 HUGO TANG Ot E11.9 TYPE 2 DIABETES MELLITUS WITHOUT COMPLIC 02/12/2018 HUGO TANG Ot E55.9 VITAMIN D DEFICIENCY, UNSPECIFIED 02/12/2018 HUGO TANG Kelly Ot E78.1 PURE HYPERGLYCERIDEMIA 02/12/2018 HUGO TANG Kelly Ot E78.5 HYPERLIPIDEMIA, UNSPECIFIED 02/12/2018 HUGO TANG Kelly Ot I10 ESSENTIAL (PRIMARY) HYPERTENSION 02/12/2018 HUGO TANG Kelly Ot I25.10 ATHSCL HEART DISEASE OF [place] CORONARY 02/12/2018 HUGO TANG Kelly Ot I25.2 OLD MYOCARDIAL INFARCTION 02/12/2018 HUGO TANG Kelly Ot 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+] 02/12/2018 HUGO TANG Kelly Ot Z72.0 TOBACCO USE 02/12/2018 HUGO TANG Kelly Ot Z79.4 SENIOR LIVING (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 OF INSULIN 02/12/2018 HUGO TANG Kelly Ot 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 02/12/2018 HUGO TANG Kelly Ot Z90.12 ACQUIRED ABSENCE OF LEFT BREAST AND NIPP 02/22/2018 SREEKANTH COOLEY Ot E78.2 MIXED HYPERLIPIDEMIA 02/22/2018 SREEKANTH COOLEY Ot I10 ESSENTIAL (PRIMARY) HYPERTENSION 03/25/2018 KESHIA ABAD 250.00 DIABETES MELLITUS WITHOUT MENTION OF COMPLICATION, TYPE II OR UNSPECIFIED TYPE, NOT STATED UNCONTROLLED 03/25/2018 KESHIA ABAD 272.4 OTHER AND UNSPECIFIED HYPERLIPIDEMIA 03/25/2018 KESHIA ABAD 285.1 03/25/2018 KESHIA ABAD 401.0 MALIGNANT ESSENTIAL HYPERTENSION 03/25/2018 KESHIA ABAD 414.01 CORONARY ATHEROSCLEROSIS OF [place] CORONARY ARTERY 03/25/2018 KESHIA ABAD 585.9 03/25/2018 KESHIA ABAD 715.15 03/25/2018 KESHIA ABAD D62 ACUTE POSTHEMORRHAGIC ANEMIA 03/25/2018 KESHIA ABAD E11.9 TYPE 2 DIABETES MELLITUS WITHOUT COMPLICATIONS 03/25/2018 KESHIA ABAD E78.5 HYPERLIPIDEMIA, UNSPECIFIED 03/25/2018 KESHIA ABAD I10 ESSENTIAL (PRIMARY) HYPERTENSION 03/25/2018 KESHIA ABAD I25.10 ATHSCL HEART DISEASE OF [place] CORONARY ARTERY W/O ANG PCTRS 03/25/2018 KESHIA ABAD W M16.12 UNILATERAL PRIMARY OSTEOARTHRITIS, LEFT HIP 03/25/2018 KESHIA ABAD W N18.9 CHRONIC KIDNEY DISEASE, UNSPECIFIED 03/25/2018 KESHIA ABAD W V58.67 LONG -TERM (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 OF INSULIN 03/25/2018 KESHIA ABAD W Z79.4 SENIOR LIVING (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 OF INSULIN 04/03/2018 KITTY HUGO N Ot C50.112 MALIGNANT NEOPLASM OF CENTRAL PORTION OF 04/03/2018 KITTY HUGO N Ot D64.9 ANEMIA, UNSPECIFIED 04/03/2018 KITTYHUGO N Ot E11.9 TYPE 2 DIABETES MELLITUS WITHOUT COMPLIC 04/03/2018 HUGO TANG N Ot E55.9 VITAMIN D DEFICIENCY, UNSPECIFIED 04/03/2018 KITTYHUGO N Ot E78.1 PURE HYPERGLYCERIDEMIA 04/03/2018 HUGO TANG N Ot E78.5 HYPERLIPIDEMIA, UNSPECIFIED 04/03/2018 HUGO TANG N Ot I10 ESSENTIAL (PRIMARY) HYPERTENSION 04/03/2018 HUGO TANG N Ot I25.10 ATHSCL HEART DISEASE OF [place] CORONARY 04/03/2018 KITTYHUGO N Ot I25.2 OLD MYOCARDIAL INFARCTION 04/03/2018 HUGO TANG N Ot 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+] 04/03/2018 KITTYSANDRAMARISSA N Ot Z72.0 TOBACCO USE 04/03/2018 HUGO TANG N Ot 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 04/03/2018 HUGO TANG N Ot 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 04/03/2018 SANDRA TANGAN N Ot Z90.12 ACQUIRED ABSENCE OF LEFT BREAST AND NIPP 04/04/2018 HUGO TANG N Ot C50.112 MALIGNANT NEOPLASM OF CENTRAL PORTION OF 04/04/2018 KITTYHUGO N Ot D64.9 ANEMIA, UNSPECIFIED 04/04/2018 KITTY BOBAN N Ot E11.9 TYPE 2 DIABETES MELLITUS WITHOUT COMPLIC 04/04/2018 HUGO TANG N Ot E55.9 VITAMIN D DEFICIENCY, UNSPECIFIED 04/04/2018 KITTYHUGO N Ot E78.1 PURE HYPERGLYCERIDEMIA 04/04/2018 HUGO TANG Ot E78.5 HYPERLIPIDEMIA, UNSPECIFIED 04/04/2018 HUGO TANG Ot I10 ESSENTIAL (PRIMARY) HYPERTENSION 04/04/2018 HUGO TANG Ot I25.10 ATHSCL HEART DISEASE OF [place] CORONARY 04/04/2018 HUGO TANG Ot I25.2 OLD MYOCARDIAL INFARCTION 04/04/2018 HUGO TANG Ot 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+] 04/04/2018 HUGO TANG Ot Z72.0 TOBACCO USE 04/04/2018 HUGO TANG Ot Z79.4 SENIOR LIVING (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 OF INSULIN 04/04/2018 HUGO TANG Ot Z79.899 OTHER SENIOR LIVING (CURRENT) DRUG THERAPY 04/04/2018 HUGO TANG Ot Z90.12 ACQUIRED ABSENCE OF LEFT BREAST AND NIPP 04/23/2018 KESHIA ABAD 250.00 DIABETES MELLITUS WITHOUT MENTION OF COMPLICATION, TYPE II OR UNSPECIFIED TYPE, NOT STATED UNCONTROLLED 04/23/2018 KESHIA ABAD 401.0 MALIGNANT ESSENTIAL HYPERTENSION 04/23/2018 KESHIA ABAD 414.01 CORONARY ATHEROSCLEROSIS OF [place] CORONARY ARTERY 04/23/2018 KESHIA ABAD 719.7 DIFFICULTY IN WALKING 04/23/2018 KESHIA ABAD E11.9 TYPE 2 DIABETES MELLITUS WITHOUT COMPLICATIONS 04/23/2018 KESHIA ABAD I10 ESSENTIAL (PRIMARY) HYPERTENSION 04/23/2018 KESHIA ABAD I25.10 ATHSCL HEART DISEASE OF [place] CORONARY ARTERY W/O ANG PCTRS 04/23/2018 KESHIA ABAD R26.2 DIFFICULTY IN WALKING, NOT ELSEWHERE CLASSIFIED 04/23/2018 KESHIA ABAD V43.64 HIP JOINT REPLACED BY OTHER MEANS 04/23/2018 EKSHIA ABAD V54.81 04/23/2018 KESHIA ABAD Z47.1 AFTERCARE FOLLOWING JOINT REPLACEMENT SURGERY 04/23/2018 KESHIA ABAD Z96.642 PRESENCE OF LEFT ARTIFICIAL HIP JOINT 05/10/2018 KESHIA ABAD V43.64 HIP JOINT REPLACED BY OTHER MEANS 05/10/2018 KESHIA ABAD V54.81 AFTERCARE FOLLOWING JOINT REPLACEMENT 05/10/2018 KESHIA ABAD Z47.1 AFTERCARE FOLLOWING JOINT REPLACEMENT SURGERY 05/10/2018 POLLO, KESHIA Boyd Z96.642 PRESENCE OF LEFT ARTIFICIAL HIP JOINT 06/06/2018 POLLO, KESHIA Boyd V43.64 HIP JOINT REPLACED BY OTHER MEANS 06/06/2018 POLLO, KESHIA Soto V54.81 AFTERCARE FOLLOWING JOINT REPLACEMENT 06/06/2018 POLLO, KESHIA Soto Z47.1 AFTERCARE FOLLOWING JOINT REPLACEMENT SURGERY 06/06/2018 POLLO, KESHIA Boyd Z96.642 PRESENCE OF LEFT ARTIFICIAL HIP JOINT 06/11/2018 HUGO TANG Kelly Ot C50.112 MALIGNANT NEOPLASM OF CENTRAL PORTION OF 06/11/2018 HUGO TANG Kelly Ot D64.9 ANEMIA, UNSPECIFIED 06/11/2018 HUGO TANG Kelly Ot E11.9 TYPE 2 DIABETES MELLITUS WITHOUT COMPLIC 06/11/2018 HUGO TANG Kelly Ot E55.9 VITAMIN D DEFICIENCY, UNSPECIFIED 06/11/2018 HUGO TANG N Ot E78.1 PURE HYPERGLYCERIDEMIA 06/11/2018 HUGO TANG Kelly Ot E78.5 HYPERLIPIDEMIA, UNSPECIFIED 06/11/2018 KITTY HUGO N Ot I10 ESSENTIAL (PRIMARY) HYPERTENSION 06/11/2018 HUGO TANG N Ot I25.10 ATHSCL HEART DISEASE OF [place] CORONARY 06/11/2018 HUGO TANG Kelly Ot I25.2 OLD MYOCARDIAL INFARCTION 06/11/2018 HUGO TANG Kelly Ot 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+] 06/11/2018 HUGO TANG N Ot Z72.0 TOBACCO USE 06/11/2018 KITTY HUGO N Ot Z79.4 SENIOR LIVING (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 OF INSULIN 06/11/2018 HUGO TANG N Ot Z79.899 OTHER SENIOR LIVING (CURRENT) DRUG THERAPY 06/11/2018 HUGO TANG N Ot Z90.12 ACQUIRED ABSENCE OF LEFT BREAST AND NIPP 06/21/2018 STEFFANIE CHAVEZ TUMBLER PLATER Ot C50.112 MALIGNANT NEOPLASM OF CENTRAL PORTION OF 06/21/2018 STEFFANIE CHAVEZ TUMBLER PLATER Ot M54.5 LOW BACK PAIN 06/21/2018 ALFREDO ENRRIQUE L TUMBLER PLATER Ot E11.65 TYPE 2 DIABETES MELLITUS WITH HYPERGLYCE 06/21/2018 NURY EARL, CHEL Correa Ot C50.112 MALIGNANT NEOPLASM OF CENTRAL PORTION OF 06/21/2018 CHEL ARRINGTON MD, Ot 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 06/21/2018 CHEL ARRINGTON MD, Ot E78.1 PURE HYPERGLYCERIDEMIA 06/21/2018 CHEL ARRINGTON MD, Ot E78.5 HYPERLIPIDEMIA, UNSPECIFIED 06/21/2018 CHEL ARRINGTON MD, Ot I12.9 HYPERTENSIVE CHRONIC KIDNEY DISEASE W ST 06/21/2018 CHEL ARRINGTON MD, Ot I25.10 ATHSCL HEART DISEASE OF [place] CORONARY 06/21/2018 CHEL ARRINGTON MD, Ot I25.2 OLD MYOCARDIAL INFARCTION 06/21/2018 CHEL ARRINGTON MD, Ot N18.3 CHRONIC KIDNEY DISEASE, STAGE 3 (MODERAT 06/21/2018 CHEL ARRINGTON MD, Ot 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+] 06/21/2018 CHEL ARRINGTON MD, Ot Z79.4 SENIOR LIVING (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 OF INSULIN 06/21/2018 CHEL ARRINGTON MD, Ot 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 06/21/2018 CHEL ARRINGTON MD, Ot Z87.891 PERSONAL HISTORY OF NICOTINE DEPENDENCE 06/21/2018 CHEL ARRINGTON MD, Ot Z90.12 ACQUIRED ABSENCE OF LEFT BREAST AND NIPP 06/21/2018 CHEL ARRINGTON MD, Ot C50.112 MALIGNANT NEOPLASM OF CENTRAL PORTION OF 06/21/2018 CHEL ARRINGTON MD, Ot E11.9 TYPE 2 DIABETES MELLITUS WITHOUT COMPLIC 06/21/2018 CHEL ARRINGTON MD, Ot I25.10 ATHSCL HEART DISEASE OF [place] CORONARY 06/21/2018 CHEL ARRINGTON MD, Ot Z79.899 OTHER SENIOR LIVING (CURRENT) DRUG THERAPY 06/21/2018 SREEKANTH COOLEY Ot E78.2 MIXED HYPERLIPIDEMIA 06/21/2018 SREEKANTH COOLEY Ot I10 ESSENTIAL (PRIMARY) HYPERTENSION 06/21/2018 SREEKANTH COOLEY Ot I21.3 ST ELEVATION (STEMI) MYOCARDIAL INFARCTI 06/21/2018 SREEKANTH COOLEY Ot R06.02 SHORTNESS OF BREATH 06/21/2018 STEFFANIE CHAVEZ Ot C50.112 MALIGNANT NEOPLASM OF CENTRAL PORTION OF 06/21/2018 STEFFANIE CHAVEZP Ot 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 06/21/2018 CHAVEZ, HILAH S TUMBLER PLATER Ot E78.1 PURE HYPERGLYCERIDEMIA 06/21/2018 STEFFANIE CHAVEZ TUMBLER PLATER Ot E78.5 HYPERLIPIDEMIA, UNSPECIFIED 06/21/2018 STEFFANIE CHAVEZ TUMBLER PLATER Ot I12.9 HYPERTENSIVE CHRONIC KIDNEY DISEASE W ST 06/21/2018 STEFFANIE CHAVEZ TUMBLER PLATER Ot I25.10 ATHSCL HEART DISEASE OF [place] CORONARY 06/21/2018 STEFFANIE CHAVEZ TUMBLER PLATER Ot I25.2 OLD MYOCARDIAL INFARCTION 06/21/2018 STEFFANIE CHAVEZ TUMBLER PLATER Ot M54.5 LOW BACK PAIN 06/21/2018 STEFFANIE HCAVEZ TUMBLER PLATER Ot N18.3 CHRONIC KIDNEY DISEASE, STAGE 3 (MODERAT 06/21/2018 STEFFANIE CHAVEZ TUMBLER PLATER Ot 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+] 06/21/2018 STEFFANIE CHAVEZ TUMBLER PLATER Ot Z79.4 SENIOR LIVING (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 OF INSULIN 06/21/2018 STEFFANIE CHAVEZP Ot 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 06/21/2018 STEFFANIE CHAVEZ TUMBLER PLATER Ot Z87.891 PERSONAL HISTORY OF NICOTINE DEPENDENCE 06/21/2018 STEFFANIE CHAVEZ TUMBLER PLATER Ot Z90.12 ACQUIRED ABSENCE OF LEFT BREAST AND NIPP 06/21/2018 STEFFANIE CHAVEZ TUMBLER PLATER Ot C50.112 MALIGNANT NEOPLASM OF CENTRAL PORTION OF 06/21/2018 STEFFANIE CHAVEZP Ot R59.0 LOCALIZED ENLARGED LYMPH NODES 06/21/2018 STEFFANIE CHAVEZ TUMBLER PLATER Ot C50.112 MALIGNANT NEOPLASM OF CENTRAL PORTION OF 06/21/2018 STEFFANIE CHAVEZP Ot Z12.31 ENCNTR SCREEN MAMMOGRAM FOR MALIGNANT NE 06/21/2018 NEEMA EMMANUEL MD Ot E78.2 MIXED HYPERLIPIDEMIA 06/21/2018 NEEMA EMMANUEL MD Ot I12.9 HYPERTENSIVE CHRONIC KIDNEY DISEASE W ST 06/21/2018 NEEMA EMMANUEL MD Ot I25.10 ATHSCL HEART DISEASE OF [place] CORONARY 06/21/2018 NEEMA EMMANUEL MD Ot N18.3 CHRONIC KIDNEY DISEASE, STAGE 3 (MODERAT 06/21/2018 ENRRIQUE FUENTESP Ot N18.4 CHRONIC KIDNEY DISEASE, STAGE 4 (SEVERE) 06/21/2018 CHAVEZSTEFFANIE Kang TUMBLER PLATER Ot C50.112 MALIGNANT NEOPLASM OF CENTRAL PORTION OF 06/21/2018 STEFFANIE CHAVEZ TUMBLER PLATER Ot E55.9 VITAMIN D DEFICIENCY, UNSPECIFIED 06/21/2018 STEFFANIE CHAVEZ TUMBLER PLATER Ot M81.0 AGE-RELATED OSTEOPOROSIS W/O CURRENT PAT 06/21/2018 STEFFANIE CHAVEZ TUMBLER PLATER Ot M85.88 OTH DISRD OF BONE DENSITY AND STRUCTURE, 06/21/2018 CHAVEZSTEFFANIE Kang TUMBLER PLATER Ot Z13.820 ENCOUNTER FOR SCREENING FOR OSTEOPOROSIS 06/21/2018 CHAVEZSTEFFANIE Kang TUMBLER PLATER Ot Z78.0 ASYMPTOMATIC MENOPAUSAL STATE 06/21/2018 CHAVEZSTEFFANIE Kang TUMBLER PLATER Ot Z96.641 PRESENCE OF RIGHT ARTIFICIAL HIP JOINT 06/21/2018 SREEKANTH COOLEY Ot E78.5 HYPERLIPIDEMIA, UNSPECIFIED 06/21/2018 SREEKANTH COOLEY Ot I10 ESSENTIAL (PRIMARY) HYPERTENSION 06/21/2018 SREEKANTH COOLEY Ot I25.10 ATHSCL HEART DISEASE OF [place] CORONARY 06/21/2018 SREEKANTH COOLEY Ot I34.0 NONRHEUMATIC MITRAL (VALVE) INSUFFICIENC 06/21/2018 SREEKANTH COOLEY Ot R06.02 SHORTNESS OF BREATH 06/21/2018 ENRRIQUE FUENTES Ot E78.5 HYPERLIPIDEMIA, UNSPECIFIED 06/21/2018 SREEKANTH COOLEY Ot E78.2 MIXED HYPERLIPIDEMIA 06/21/2018 SREEKANTH COOLEY Ot I10 ESSENTIAL (PRIMARY) HYPERTENSION 06/21/2018 HUGO TANG Ot C50.112 MALIGNANT NEOPLASM OF CENTRAL PORTION OF 06/21/2018 HUGO TANG Ot D64.9 ANEMIA, UNSPECIFIED 06/21/2018 HUGO TANG Ot E11.9 TYPE 2 DIABETES MELLITUS WITHOUT COMPLIC 06/21/2018 HUGO TANG Ot E55.9 VITAMIN D DEFICIENCY, UNSPECIFIED 06/21/2018 HUGO TANG Ot E78.1 PURE HYPERGLYCERIDEMIA 06/21/2018 HUGO TANG Ot E78.5 HYPERLIPIDEMIA, UNSPECIFIED 06/21/2018 HUGO TANG N Ot I10 ESSENTIAL (PRIMARY) HYPERTENSION 06/21/2018 HUGO TANG N Ot I25.10 ATHSCL HEART DISEASE OF [place] CORONARY 06/21/2018 UHGO TANG N Ot I25.2 OLD MYOCARDIAL INFARCTION 06/21/2018 HUGO TANG N Ot 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+] 06/21/2018 KITTY, SANDRAMARISSA N Ot Z45.2 ENCOUNTER FOR ADJUSTMENT AND MANAGEMENT 06/21/2018 KITTYHUGO LUJAN N Ot Z72.0 TOBACCO USE 06/21/2018 KITTY, HUGO N Ot 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 06/21/2018 KITTYSANDRAAN N Ot Z79.899 OTHER SENIOR LIVING (CURRENT) DRUG THERAPY 06/21/2018 KITTYHUGO N Ot Z90.12 ACQUIRED ABSENCE OF LEFT BREAST AND NIPP 06/21/2018 KITTYSANDRAMARISSA N Ot C50.112 MALIGNANT NEOPLASM OF CENTRAL PORTION OF 06/21/2018 KITTY SANDRAMARISSA N Ot D64.9 ANEMIA, UNSPECIFIED 06/21/2018 KITTYSANDRAMARISSA N Ot E11.9 TYPE 2 DIABETES MELLITUS WITHOUT COMPLIC 06/21/2018 HUGO TANG N Ot E55.9 VITAMIN D DEFICIENCY, UNSPECIFIED 06/21/2018 KITTYSANDRAMARSISA N Ot E78.1 PURE HYPERGLYCERIDEMIA 06/21/2018 KITTYHUGO N Ot E78.5 HYPERLIPIDEMIA, UNSPECIFIED 06/21/2018 KITTY, SANDRAMARISSA N Ot I10 ESSENTIAL (PRIMARY) HYPERTENSION 06/21/2018 KITTY, SANDRAMARISSA N Ot I25.10 ATHSCL HEART DISEASE OF [place] CORONARY 06/21/2018 HUGO TANG N Ot I25.2 OLD MYOCARDIAL INFARCTION 06/21/2018 HUGO TANG N Ot 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+] 06/21/2018 KITTYHUGO LUJAN N Ot Z45.2 ENCOUNTER FOR ADJUSTMENT AND MANAGEMENT 06/21/2018 KITTYHUGO LUJAN N Ot Z72.0 TOBACCO USE 06/21/2018 KITTY, SANDRAAN N Ot 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 06/21/2018 SANDRA TANGAN N Ot Z79.899 OTHER SENIOR LIVING (CURRENT) DRUG THERAPY 06/21/2018 HUGO TANG Ot Z90.12 ACQUIRED ABSENCE OF LEFT BREAST AND NIPP 07/04/2018 HUGO TANG Ot C50.112 MALIGNANT NEOPLASM OF CENTRAL PORTION OF 07/04/2018 HUGO TANG Ot D64.9 ANEMIA, UNSPECIFIED 07/04/2018 HUGO TANG Ot E11.9 TYPE 2 DIABETES MELLITUS WITHOUT COMPLIC 07/04/2018 HUGO TANG Kelly Ot E55.9 VITAMIN D DEFICIENCY, UNSPECIFIED 07/04/2018 HUGO TANG N Ot E78.1 PURE HYPERGLYCERIDEMIA 07/04/2018 HUGO TANG N Ot E78.5 HYPERLIPIDEMIA, UNSPECIFIED 07/04/2018 HUGO TANG N Ot I10 ESSENTIAL (PRIMARY) HYPERTENSION 07/04/2018 HUGO TANG N Ot I25.10 ATHSCL HEART DISEASE OF [place] CORONARY 07/04/2018 HUGO TANG N Ot I25.2 OLD MYOCARDIAL INFARCTION 07/04/2018 HUGO TANG Ot 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+] 07/04/2018 HUGO TANG Ot Z45.2 ENCOUNTER FOR ADJUSTMENT AND MANAGEMENT 07/04/2018 HUGO TANG Ot Z72.0 TOBACCO USE 07/04/2018 HUGO TANG Ot Z79.4 SENIOR LIVING (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 OF INSULIN 07/04/2018 HUGO TANG Ot Z79.899 OTHER SENIOR LIVING (CURRENT) DRUG THERAPY 07/04/2018 HUGO TANG Ot Z90.12 ACQUIRED ABSENCE OF LEFT BREAST AND NIPP 07/04/2018 TOMEKA ROMAN MD, Ot C50.112 MALIGNANT NEOPLASM OF CENTRAL PORTION OF 07/04/2018 TOMEKA ROMAN MD, Ot D64.9 ANEMIA, UNSPECIFIED 07/04/2018 TOMEKA ROMAN MD Ot E11.9 TYPE 2 DIABETES MELLITUS WITHOUT COMPLIC 07/04/2018 TOMEKA ROMAN MD Ot E55.9 VITAMIN D DEFICIENCY, UNSPECIFIED 07/04/2018 TOMEKA ROMAN MD Ot E78.1 PURE HYPERGLYCERIDEMIA 07/04/2018 TOMEKA ROMAN MD Ot E78.5 HYPERLIPIDEMIA, UNSPECIFIED 07/04/2018 TOMEKA ROMAN MD Ot I10 ESSENTIAL (PRIMARY) HYPERTENSION 07/04/2018 TOMEKA ROMAN MD Ot I25.10 ATHSCL HEART DISEASE OF [place] CORONARY 07/04/2018 TOMEKA ROMAN MD Ot I25.2 OLD MYOCARDIAL INFARCTION 07/04/2018 TOMEKA ROMAN MD Ot 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+] 07/04/2018 TOMEKA ROMAN MD Ot Z45.2 ENCOUNTER FOR ADJUSTMENT AND MANAGEMENT 07/04/2018 TOMEKA ROMAN MD Ot Z72.0 TOBACCO USE 07/04/2018 TOMEKA ROMAN MD Ot Z79.4 SENIOR LIVING (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 OF INSULIN 07/04/2018 TOMEKA ROMAN MD Ot Z79.899 OTHER SENIOR LIVING (CURRENT) DRUG THERAPY 07/04/2018 TOMEKA ROMAN MD Ot Z90.12 ACQUIRED ABSENCE OF LEFT BREAST AND NIPP 07/05/2018 TOMEKA ROMAN MD Ot C50.112 MALIGNANT NEOPLASM OF CENTRAL PORTION OF 07/05/2018 TOMEKA ROMAN MD Ot D64.9 ANEMIA, UNSPECIFIED 07/05/2018 TOMEKA ROMAN MD Ot E11.9 TYPE 2 DIABETES MELLITUS WITHOUT COMPLIC 07/05/2018 TOMEKA ROMAN MD Ot E55.9 VITAMIN D DEFICIENCY, UNSPECIFIED 07/05/2018 TOMEKA ROMAN MD Ot E78.1 PURE HYPERGLYCERIDEMIA 07/05/2018 TOMEKA ROMAN MD Ot E78.5 HYPERLIPIDEMIA, UNSPECIFIED 07/05/2018 TOMEKA ROMAN MD Ot I10 ESSENTIAL (PRIMARY) HYPERTENSION 07/05/2018 TOMEKA ROMAN MD Ot I25.10 ATHSCL HEART DISEASE OF [place] CORONARY 07/05/2018 TOMEKA ROMAN MD Ot I25.2 OLD MYOCARDIAL INFARCTION 07/05/2018 TOMEKA ROMAN MD Ot 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+] 07/05/2018 TOMEKA ROMAN MD Ot Z45.2 ENCOUNTER FOR ADJUSTMENT AND MANAGEMENT 07/05/2018 TOMEKA ROMAN MD Ot Z72.0 TOBACCO USE 07/05/2018 TOMEKA ROMAN MD Ot 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 07/05/2018 TOMEKA ROMAN MD Ot 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 07/05/2018 TOMEKA ROMAN MD Ot Z90.12 ACQUIRED ABSENCE OF LEFT BREAST AND NIPP 07/08/2018 TOMEKA ROMAN MD Ot C50.112 MALIGNANT NEOPLASM OF CENTRAL PORTION OF 07/08/2018 TOMEKA ROMAN MD Ot D64.9 ANEMIA, UNSPECIFIED 07/08/2018 TOMEKA ROMAN MD Ot E11.9 TYPE 2 DIABETES MELLITUS WITHOUT COMPLIC 07/08/2018 TOMEKA ROMAN MD Ot E55.9 VITAMIN D DEFICIENCY, UNSPECIFIED 07/08/2018 TOMEKA ROMAN MD Ot E78.1 PURE HYPERGLYCERIDEMIA 07/08/2018 TOMEKA ROMAN MD Ot E78.5 HYPERLIPIDEMIA, UNSPECIFIED 07/08/2018 TOMEKA ROMAN MD Ot I10 ESSENTIAL (PRIMARY) HYPERTENSION 07/08/2018 TOMEKA ROMAN MD Ot I25.10 ATHSCL HEART DISEASE OF [place] CORONARY 07/08/2018 TOMEKA ROMAN MD Ot I25.2 OLD MYOCARDIAL INFARCTION 07/08/2018 TOMEKA ROMAN MD Ot 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+] 07/08/2018 TOMEKA ROMAN MD Ot Z45.2 ENCOUNTER FOR ADJUSTMENT AND MANAGEMENT 07/08/2018 TOMEKA ROMAN MD Ot Z72.0 TOBACCO USE 07/08/2018 TOMEKA ROMAN MD Ot Z79.4 SENIOR LIVING (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 OF INSULIN 07/08/2018 TOMEKA ROMAN MD Ot 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 07/08/2018 TOMEKA ROMAN MD Ot Z90.12 ACQUIRED ABSENCE OF LEFT BREAST AND NIPP 07/21/2018 TOMEKA ROMAN MD Ot C50.112 MALIGNANT NEOPLASM OF CENTRAL PORTION OF 07/21/2018 TOMEKA ROMAN MD Ot D64.9 ANEMIA, UNSPECIFIED 07/21/2018 TOMEKA ROMAN MD Ot E11.9 TYPE 2 DIABETES MELLITUS WITHOUT COMPLIC 07/21/2018 TOMEKA ROMAN MD Ot E55.9 VITAMIN D DEFICIENCY, UNSPECIFIED 07/21/2018 TOMEKA ROMAN MD Ot E78.1 PURE HYPERGLYCERIDEMIA 07/21/2018 TOMEKA ROMAN MD Ot E78.5 HYPERLIPIDEMIA, UNSPECIFIED 07/21/2018 TOMEKA ROMAN MD Ot I10 ESSENTIAL (PRIMARY) HYPERTENSION 07/21/2018 TOMEKA ROMAN MD Ot I25.10 ATHSCL HEART DISEASE OF [place] CORONARY 07/21/2018 TOMEKA ROMAN MD Ot I25.2 OLD MYOCARDIAL INFARCTION 07/21/2018 TOMEKA ROMAN MD Ot 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+] 07/21/2018 TOMEKA ROMAN MD Ot Z45.2 ENCOUNTER FOR ADJUSTMENT AND MANAGEMENT 07/21/2018 TOMEKA ROMAN MD Ot Z72.0 TOBACCO USE 07/21/2018 TOMEKA ROMAN MD Ot 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 07/21/2018 TOMEKA ROMAN MD Ot 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 07/21/2018 TOMEKA ROMAN MD Ot Z90.12 ACQUIRED ABSENCE OF LEFT BREAST AND NIPP 07/23/2018 TOMEKA ROMAN MD Ot C50.112 MALIGNANT NEOPLASM OF CENTRAL PORTION OF 07/23/2018 TOMEKA ROMAN MD Ot D64.9 ANEMIA, UNSPECIFIED 07/23/2018 TOMEKA ROMAN MD Ot E11.9 TYPE 2 DIABETES MELLITUS WITHOUT COMPLIC 07/23/2018 TOMEKA ROMAN MD Ot E55.9 VITAMIN D DEFICIENCY, UNSPECIFIED 07/23/2018 TOMEKA ROMAN MD Ot E78.1 PURE HYPERGLYCERIDEMIA 07/23/2018 TOMEKA ROMAN MD Ot E78.5 HYPERLIPIDEMIA, UNSPECIFIED 07/23/2018 TOMEKA ROMAN MD Ot I10 ESSENTIAL (PRIMARY) HYPERTENSION 07/23/2018 TOMEKA ROMAN MD Ot I25.10 ATHSCL HEART DISEASE OF [place] CORONARY 07/23/2018 TOMEKA ROMAN MD Ot I25.2 OLD MYOCARDIAL INFARCTION 07/23/2018 TOMEKA ROMAN MD Ot 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+] 07/23/2018 TOMEKA ROMAN MD Ot Z45.2 ENCOUNTER FOR ADJUSTMENT AND MANAGEMENT 07/23/2018 TOMEKA ROMAN MD Ot Z72.0 TOBACCO USE 07/23/2018 TOMEKA ROMAN MD Ot 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 07/23/2018 TOMEKA ROMAN MD Ot 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 07/23/2018 TOMEKA ROMAN MD Ot Z90.12 ACQUIRED ABSENCE OF LEFT BREAST AND NIPP 07/27/2018 TOMEKA ROMAN MD Ot C50.112 MALIGNANT NEOPLASM OF CENTRAL PORTION OF 07/27/2018 TOMEKA ROMAN MD Ot D64.9 ANEMIA, UNSPECIFIED 07/27/2018 TOMEKA ROMAN MD Ot E11.9 TYPE 2 DIABETES MELLITUS WITHOUT COMPLIC 07/27/2018 TOMEKA ROMAN MD Ot E55.9 VITAMIN D DEFICIENCY, UNSPECIFIED 07/27/2018 TOMEKA ROMAN MD Ot E78.1 PURE HYPERGLYCERIDEMIA 07/27/2018 TOMEKA ROMAN MD, Ot E78.5 HYPERLIPIDEMIA, UNSPECIFIED 07/27/2018 TOMEKA ROMAN MD Ot I10 ESSENTIAL (PRIMARY) HYPERTENSION 07/27/2018 TOMEKA ROMAN MD, Ot I25.10 ATHSCL HEART DISEASE OF [place] CORONARY 07/27/2018 TOMEKA ROMAN MD, Ot I25.2 OLD MYOCARDIAL INFARCTION 07/27/2018 TOMEKA ROMAN MD, Ot 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+] 07/27/2018 TOMEKA ROMAN MD, Ot Z45.2 ENCOUNTER FOR ADJUSTMENT AND MANAGEMENT 07/27/2018 TOMEKA ROMAN MD, Ot Z72.0 TOBACCO USE 07/27/2018 TOMEKA ROMAN MD, Ot 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 Results Test Result Range CBC With Differential/Platelet - 09/26/16 09:19 WBC 10.1 x10E3/uL 3.4-10.8 RBC 4.14 x10E6/uL 3.77-5.28 Hemoglobin 11.5 g/dL 11.1-15.9 Hematocrit 35.9 % 34.0-46.6 MCV 87 fL 79-97 MCH 27.8 pg 26.6-33.0 MCHC 32.0 g/dL 31.5-35.7 RDW 14.7 % 12.3-15.4 Platelets 312 x10E3/uL 150-379 Neutrophils 62 % Lymphs 27 % Monocytes 6 % Eos 3 % Basos 1 % Neutrophils (Absolute) 6.3 x10E3/uL 1.4-7.0 Lymphs (Absolute) 2.7 x10E3/uL 0.7-3.1 Monocytes(Absolute) 0.6 x10E3/uL 0.1-0.9 Eos (Absolute) 0.3 x10E3/uL 0.0-0.4 Baso (Absolute) 0.1 x10E3/uL 0.0-0.2 Immature Granulocytes 1 % Immature Grans (Abs) 0.1 x10E3/uL 0.0-0.1 Urinalysis, Complete - 09/26/16 09:19 Specific [place] 1.024 1.005-1.030 pH 5.5 5.0-7.5 Urine-Color Yellow Yellow Appearance Clear Clear WBC Esterase 1+ Negative Protein Negative Negative/Trace Glucose Trace Negative Ketones Negative Negative Occult Blood Negative Negative Bilirubin Negative Negative Urobilinogen,Semi-Qn 0.2 mg/dL 0.2-1.0 Nitrite, Urine Negative Negative Microscopic Examination See below: Microscopic Examination - 09/26/16 09:19 WBC 11-30 /hpf 0 - 5 RBC 0-2 /hpf 0 - 2 Epithelial Cells (non renal) 0-10 /hpf 0 - 10 Mucus Threads Present Not Estab. Bacteria Few None seen/Few Renal Panel (10) - 09/26/16 09:19 Glucose, Serum 196 mg/dL 65-99 BUN 27 mg/dL 8-27 Creatinine, Serum 1.39 mg/dL 0.57-1.00 eGFR If NonAfricn Am 41 mL/min/1.73 >59 eGFR If Africn Am 47 mL/min/1.73 >59 BUN/Creatinine Ratio 19 11-26 Sodium, Serum 140 mmol/L 136-144 Potassium, Serum 4.4 mmol/L 3.5-5.2 Chloride, Serum 99 mmol/L 97-106 Carbon Dioxide, Total 23 mmol/L 18-29 Calcium, Serum 10.5 mg/dL 8.7-10.3 Albumin, Serum 4.3 g/dL 3.6-4.8 Phosphorus, Serum 3.6 mg/dL 2.5-4.5 Prot+CreatU (Random) - 09/26/16 09:19 Creatinine, Urine 122.4 mg/dL Not Estab. Protein,Total,Urine 15.4 mg/dL Not Estab. Protein/Creat Ratio 126 mg/g creat 0-200 Hepatic Panel - 11/30/16 08:03 Albumin 4.2 g/dL 3.6-5.1 ALP 35 U/L 35-130 ALT 19 U/L 6-45 AST 16 U/L 2-40 DBil 0.1 mg/dL 0.0-0.2 GGT 25 U/L 5-40 Globulin 3.7 g/dL 2.3-3.5 TBil 0.3 mg/dL 0.2-1.2 TP 7.9 g/dL 6.0-8.3 Comprehensive Metabolic Panel - 07/06/17 13:56 Albumin 4.2 g/dL 3.6-5.1 ALP 36 U/L 35-130 ALT 17 U/L 6-45 Anion Gap 13 6-14 AST 16 U/L 2-40 BUN 33 mg/dL 5-25 Calcium 10.4 mg/dL 8.3-10.4 Chloride 110 mmol/L 95-114 CO2 23 mEq/L 22-33 Creat 1.64 mg/dL 0.50-1.50 eGFR 32 mL/min/1.73m2 >59 Globulin 3.6 g/dL 2.3-3.5 Glucose 226 mg/dL 70-110 Osmo 304 280-295 Potassium 4.8 mmol/L 3.5-5.3 Sodium 141 mmol/L 134-148 TBil 0.2 mg/dL 0.2-1.2 TP 7.8 g/dL 6.0-8.3 MRSA Screen - 07/06/17 13:56 FINAL CULTURE RESULTS MRSA Negative Nasal Culture Complete blood count (CBC) with automated white blood cell (WBC) differential - 09/03/17 17:30 Blood leukocytes automated count (number/volume) 9.1 10*3/uL 4.3-11.0 Blood erythrocytes automated count (number/volume) 4.06 10*6/uL 4.35-5.85 Venous blood hemoglobin measurement (mass/volume) 11.5 g/dL 11.5-16.0 Blood hematocrit (volume fraction) 35 % 35-52 Automated erythrocyte mean corpuscular volume 85 [foz_us] 80-99 Automated erythrocyte mean corpuscular hemoglobin (mass per erythrocyte) 28 pg 25-34 Automated erythrocyte mean corpuscular hemoglobin concentration measurement ( mass/volume) 33 g/dL 32-36 Automated erythrocyte distribution width ratio 14.0 % 10.0-14.5 Automated blood platelet count (count/volume) 273 10*3/uL 130-400 Automated blood platelet mean volume measurement 12.6 [foz_us] 7.4-10.4 Automated blood neutrophils/100 leukocytes 82 % 42-75 Automated blood lymphocytes/100 leukocytes 12 % 12-44 Blood monocytes/100 leukocytes 4 % 0-12 Automated blood eosinophils/100 leukocytes 1 % 0-10 Automated blood basophils/100 leukocytes 1 % 0-10 Blood neutrophils automated count (number/volume) 7.4 10*3 1.8-7.8 Blood lymphocytes automated count (number/volume) 1.1 10*3 1.0-4.0 Blood monocytes automated count (number/volume) 0.4 10*3 0.0-1.0 Automated eosinophil count 0.1 10*3/uL 0.0-0.3 Automated blood basophil count (count/volume) 0.1 10*3/uL 0.0-0.1 PT panel in platelet poor plasma by coagulation assay - 09/03/17 17:30 Prothrombin time (PT) in platelet poor plasma by coagulation assay 12.9 s 12.2-14.7 INR in platelet poor plasma or blood by coagulation assay 1.0 0.8-1.4 Activated partial thromboplastin time (aPTT) in platelet poor plasma bycoagulation assay - 09/03/17 17:30 Activated partial thromboplastin time (aPTT) in platelet poor plasma bycoagulation assay 24 s 24-35 Comprehensive metabolic panel - 09/03/17 17:30 Serum or plasma sodium measurement (moles/volume) 133 mmol/L 135-145 Serum or plasma potassium measurement (moles/volume) 4.6 mmol/L 3.6-5.0 Serum or plasma chloride measurement (moles/volume) 104 mmol/L 98-107 Carbon dioxide 20 mmol/L 21-32 Serum or plasma anion gap determination (moles/volume) 9 mmol/L 5-14 Serum or plasma urea nitrogen measurement (mass/volume) 27 mg/dL 7-18 Serum or plasma creatinine measurement (mass/volume) 1.49 mg/dL 0.60-1.30 Serum or plasma urea nitrogen/creatinine mass ratio 18 NRG Serum or plasma creatinine measurement with calculation of estimated glomerular filtration rate 35 NRG Serum or plasma glucose measurement (mass/volume) 305 mg/dL 70-105 Serum or plasma calcium measurement (mass/volume) 9.8 mg/dL 8.5-10.1 Serum or plasma total bilirubin measurement (mass/volume) 0.2 mg/dL 0.1-1.0 Serum or plasma alkaline phosphatase measurement (enzymatic activity/volume) 40 U/L 40-136 Serum or plasma aspartate aminotransferase measurement (enzymatic activity/ volume) 20 U/L 5-34 Serum or plasma alanine aminotransferase measurement (enzymatic activity/volume ) 20 U/L 0-55 Serum or plasma protein measurement (mass/volume) 7.4 g/dL 6.4-8.2 Serum or plasma albumin measurement (mass/volume) 4.0 g/dL 3.2-4.5 Magnesium - 09/03/17 17:30 Magnesium 1.2 mg/dL 1.8-2.4 Serum or plasma troponin i.cardiac measurement (mass/volume) - 09/03/17 17:45 Serum or plasma troponin i.cardiac measurement (mass/volume) < ng/ mL <0.30 Complete urinalysis with reflex to culture - 09/03/17 18:15 Urine color determination YELLOW NRG Urine clarity determination CLEAR NRG Urine pH measurement by test strip 6.5 5-9 Specific gravity of urine by test strip 1.010 1.016- 1.022 Urine protein assay by test strip, semi-quantitative NEGATIVE NEGATIVE Urine glucose detection by automated test strip 4+ NEGATIVE Erythrocytes detection in urine sediment by light microscopy NEGATIVE NEGATIVE Urine ketones detection by automated test strip NEGATIVE NEGATIVE Urine nitrite detection by test strip NEGATIVE NEGATIVE Urine total bilirubin detection by test strip NEGATIVE NEGATIVE Urine urobilinogen measurement by automated test strip (mass/volume) NORMAL NORMAL Urine leukocyte esterase detection by dipstick 1+ NEGATIVE Automated urine sediment erythrocyte count by microscopy (number/high power field) NONE NRG Automated urine sediment leukocyte count by microscopy (number/high power field ) NONE NRG Bacteria detection in urine sediment by light microscopy 0-2 NRG Squamous epithelial cells detection in urine sediment by light microscopy 0-2 NRG Crystals detection in urine sediment by light microscopy NONE NRG Casts detection in urine sediment by light microscopy NONE NRG Mucus detection in urine sediment by light microscopy NEGATIVE NRG Complete urinalysis with reflex to culture NO NRG Capillary blood glucose measurement by glucometer (mass/volume) - 09/03/17 20: 57 Capillary blood glucose measurement by glucometer (mass/volume) 183 mg/dL 70-110 Urinalysis - 10/30/17 13:22 Icotest N/A Negative Urine Volume Urine Volume Sufficient (10mL) Urine-Appearance Clear Clear Urine-Bacteria Trace Urine-Bilirubin Negative Negative Urine-Blood Trace-intact Negative Urine-Color Yellow Colorless-Lt. Yellow Urine-Epithelial Cells 0-5/HPF Urine-Glucose Negative Negative Urine-Ketones Negative Negative Urine-Leukocytes Negative Negative Urine-Nitrite Negative Negative Urine-Other Urine Saved if Culture Needed (48hrs from time of collection) Urine-pH 5.5 5-8.5 Urine-Protein Negative Negative Urine-RBC 0-2/HPF Urine-Specific [place] 1.020 1.000-1.030 Urine-WBC 0-2/HPF Urobilinogen 0.2 E.U./dL 0.2-1.0 MRSA Screen - 10/30/17 13:22 FINAL CULTURE RESULTS MRSA Negative Nasal Culture MEDIA PLATED Setup at 13:37 on 10/30/2017 TYPE/SCREEN - 11/08/17 06:00 ABO/RH A POSITIVE ANTIBODY SCREEN NEGATIVE Urine Culture - 11/08/17 10:05 PRELIM CULTURE RESULTS No Growth 24 hours FINAL CULTURE RESULTS No Growth 48 hours MEDIA PLATED Setup at 15:25 on 11/08/2017 CULTURE SOURCE cath Comprehensive Metabolic Panel - 11/09/17 07:00 Albumin 3.3 g/dL 3.6-5.1 ALP 32 U/L 35-130 ALT 22 U/L 6-45 Anion Gap 13 6-14 AST 25 U/L 2-40 BUN 19 mg/dL 5-25 Calcium 9.0 mg/dL 8.3-10.4 Chloride 109 mmol/L 95-114 CO2 17 mEq/L 22-33 Creat 1.18 mg/dL 0.50-1.50 eGFR 46 mL/min/1.73m2 >59 Globulin 2.8 g/dL 2.3-3.5 Glucose 218 mg/dL 70-110 Osmo 287 280-295 Potassium 4.4 mmol/L 3.5-5.3 Sodium 135 mmol/L 134-148 TBil 0.4 mg/dL 0.2-1.2 TP 6.1 g/dL 6.0-8.3 Comprehensive Metabolic Panel - 11/10/17 05:25 Albumin 3.0 g/dL 3.6-5.1 ALP 28 U/L 35-130 ALT 23 U/L 6-45 Anion Gap 12 6-14 AST 23 U/L 2-40 BUN 16 mg/dL 5-25 Calcium 9.1 mg/dL 8.3-10.4 Chloride 108 mmol/L 95-114 CO2 22 mEq/L 22-33 Creat 1.12 mg/dL 0.50-1.50 eGFR 49 mL/min/1.73m2 >59 Globulin 2.6 g/dL 2.3-3.5 Glucose 120 mg/dL 70-110 Osmo 287 280-295 Potassium 3.9 mmol/L 3.5-5.3 Sodium 138 mmol/L 134-148 TBil 0.3 mg/dL 0.2-1.2 TP 5.6 g/dL 6.0-8.3 Leukoreduced Packed RBC Unit Checkout - 11/10/17 12:47 LRPRBC Checkout Checked Out. Leukoreduced Packed RBC Unit Checkout - 11/10/17 17:45 LRPRBC Checkout Checked Out. [facility] - 11/11/17 05:50 Anion Gap 14 6-14 BUN 22 mg/dL 5-25 Calcium 9.2 mg/dL 8.3-10.4 Chloride 105 mmol/L 95-114 CO2 24 mEq/L 22-33 Creat 1.22 mg/dL 0.50-1.50 eGFR 44 mL/min/1.73m2 >59 Glucose 142 mg/dL 70-110 Osmo 292 280-295 Potassium 3.7 mmol/L 3.5-5.3 Sodium 139 mmol/L 134-148 TYPE/SCREEN - 11/11/17 13:48 ABO/RH A POSITIVE ANTIBODY SCREEN NEGATIVE Leukoreduced Packed RBC Unit Checkout - 11/11/17 21:28 LRPRBC Checkout Checked Out. - 11/12/17 05:20 Hct 30.0 % 36.0-46.0 Hgb 10.0 Result Verified by Repeat Analysis g/dL 13.0- 15.0 Lipid 1996 panel - 01/03/18 10:45 Serum or plasma triglyceride measurement (mass/volume) 195 mg/dL <150 Serum or plasma cholesterol measurement (mass/volume) 140 mg/dL < 200 Serum or plasma cholesterol in HDL measurement (mass/volume) 34 mg/ dL 40-60 Cholesterol in LDL [mass/volume] in serum or plasma by direct assay 74 mg/dL 1-129 Serum or plasma cholesterol in VLDL measurement (mass/volume) 39 mg/ dL 5-40 Complete urinalysis with reflex to culture - 02/06/18 07:18 Urine color determination YELLOW NRG Urine clarity determination CLEAR NRG Urine pH measurement by test strip 5 5-9 Specific gravity of urine by test strip 1.015 1.016- 1.022 Urine protein assay by test strip, semi-quantitative NEGATIVE NEGATIVE Urine glucose detection by automated test strip 1+ NEGATIVE Erythrocytes detection in urine sediment by light microscopy NEGATIVE NEGATIVE Urine ketones detection by automated test strip NEGATIVE NEGATIVE Urine nitrite detection by test strip NEGATIVE NEGATIVE Urine total bilirubin detection by test strip NEGATIVE NEGATIVE Urine urobilinogen measurement by automated test strip (mass/volume) NORMAL NORMAL Urine leukocyte esterase detection by dipstick 2+ NEGATIVE Automated urine sediment erythrocyte count by microscopy (number/high power field) NONE NRG Automated urine sediment leukocyte count by microscopy (number/high power field ) [HPF] NRG Bacteria detection in urine sediment by light microscopy NEGATIVE NRG Squamous epithelial cells detection in urine sediment by light microscopy 0-2 NRG Crystals detection in urine sediment by light microscopy NONE NRG Casts detection in urine sediment by light microscopy PRESENT NRG Mucus detection in urine sediment by light microscopy NEGATIVE NRG Complete urinalysis with reflex to culture NO NRG Hyaline casts detection in urine sediment by light microscopy RARE NRG Automated blood complete blood count (hemogram) panel - 02/06/18 07:42 Blood leukocytes automated count (number/volume) 8.1 10*3/uL 4.3-11.0 Blood erythrocytes automated count (number/volume) 3.81 10*6/uL 4.35-5.85 Venous blood hemoglobin measurement (mass/volume) 10.9 g/dL 11.5-16.0 Blood hematocrit (volume fraction) 33 % 35-52 Automated erythrocyte mean corpuscular volume 87 [foz_us] 80-99 Automated erythrocyte mean corpuscular hemoglobin (mass per erythrocyte) 29 pg 25-34 Automated erythrocyte mean corpuscular hemoglobin concentration measurement ( mass/volume) 33 g/dL 32-36 Automated erythrocyte distribution width ratio 15.5 % 10.0-14.5 Automated blood platelet count (count/volume) 210 10*3/uL 130-400 Automated blood platelet mean volume measurement 12.8 [foz_us] 7.4-10.4 Comprehensive metabolic panel - 02/06/18 07:42 Serum or plasma sodium measurement (moles/volume) 138 mmol/L 135-145 Serum or plasma potassium measurement (moles/volume) 4.9 mmol/L 3.6-5.0 Serum or plasma chloride measurement (moles/volume) 110 mmol/L 98-107 Carbon dioxide 19 mmol/L 21-32 Serum or plasma anion gap determination (moles/volume) 9 mmol/L 5-14 Serum or plasma urea nitrogen measurement (mass/volume) 46 mg/dL 7-18 Serum or plasma creatinine measurement (mass/volume) 1.73 mg/dL 0.60-1.30 Serum or plasma urea nitrogen/creatinine mass ratio 27 NRG Serum or plasma creatinine measurement with calculation of estimated glomerular filtration rate 30 NRG Serum or plasma glucose measurement (mass/volume) 240 mg/dL 70-105 Serum or plasma calcium measurement (mass/volume) 10.1 mg/dL 8.5-10.1 Serum or plasma total bilirubin measurement (mass/volume) 0.2 mg/dL 0.1-1.0 Serum or plasma alkaline phosphatase measurement (enzymatic activity/volume) 38 U/L 40-136 Serum or plasma aspartate aminotransferase measurement (enzymatic activity/ volume) 15 U/L 5-34 Serum or plasma alanine aminotransferase measurement (enzymatic activity/volume ) 14 U/L 0-55 Serum or plasma protein measurement (mass/volume) 7.1 g/dL 6.4-8.2 Serum or plasma albumin measurement (mass/volume) 3.9 g/dL 3.2-4.5 PT panel in platelet poor plasma by coagulation assay - 02/06/18 07:42 Prothrombin time (PT) in platelet poor plasma by coagulation assay 13.2 s 12.2-14.7 INR in platelet poor plasma or blood by coagulation assay 1.0 0.8-1.4 Activated partial thromboplastin time (aPTT) in platelet poor plasma bycoagulation assay - 02/06/18 07:42 Activated partial thromboplastin time (aPTT) in platelet poor plasma bycoagulation assay 22 s 24-35 Methicillin resistant Staphylococcus aureus (MRSA) screening culture - 07:42 Methicillin resistant Staphylococcus aureus (MRSA) screening culture NEG NRG Capillary blood glucose measurement by glucometer (mass/volume) - 02/06/18 11: 38 Capillary blood glucose measurement by glucometer (mass/volume) 193 mg/dL 70-110 Urinalysis - 03/15/18 11:54 Icotest N/A Negative Urine-Appearance Clear Clear Urine-Bacteria Trace Urine-Bilirubin Negative Negative Urine-Blood Negative Negative Urine-Color Yellow Colorless-Lt. Yellow Urine-Epithelial Cells 5-10/HPF Urine-Glucose Negative Negative Urine-Ketones Negative Negative Urine-Leukocytes Trace Negative Urine-Nitrite Negative Negative Urine-pH 5.5 5-8.5 Urine-Protein Negative Negative Urine-RBC Negative Urine-Specific [place] 1.020 1.000-1.030 Urine-WBC 0-2/HPF Urobilinogen 0.2 E.U./dL 0.2-1.0 MRSA Screen - 03/15/18 11:54 FINAL CULTURE RESULTS MRSA Negative Nasal Culture MEDIA PLATED Setup at 12:12 on 03/15/2018 Comprehensive Metabolic Panel - 03/19/18 11:44 Albumin 4.1 g/dL 3.6-5.1 ALP 35 U/L 35-130 ALT 18 U/L 6-45 Anion Gap 14 6-14 AST 18 U/L 2-40 BUN 38 mg/dL 5-25 Calcium 10.6 mg/dL 8.3-10.4 Chloride 109 mmol/L 95-114 CO2 21 mEq/L 22-33 Creat 1.47 mg/dL 0.50-1.50 eGFR 36 mL/min/1.73m2 >59 Globulin 3.2 g/dL 2.3-3.5 Glucose 124 mg/dL 70-110 Osmo 297 280-295 Potassium 5.1 mmol/L 3.5-5.3 Sodium 139 mmol/L 134-148 TBil 0.3 mg/dL 0.2-1.2 TP 7.3 g/dL 6.0-8.3 Urine Culture - 03/21/18 08:28 PRELIM CULTURE RESULTS No Growth 24 hours FINAL CULTURE RESULTS No Growth 48 hours MEDIA PLATED Setup at 08:54 on 03/21/2018 CULTURE SOURCE cath Comprehensive Metabolic Panel - 03/22/18 05:35 Albumin 3.3 g/dL 3.6-5.1 ALP 31 U/L 35-130 ALT 18 U/L 6-45 Anion Gap 13 6-14 AST 23 U/L 2-40 BUN 24 mg/dL 5-25 Calcium 9.1 mg/dL 8.3-10.4 Chloride 108 mmol/L 95-114 CO2 19 mEq/L 22-33 Creat 1.22 mg/dL 0.50-1.50 eGFR 44 mL/min/1.73m2 >59 Globulin 2.4 g/dL 2.3-3.5 Glucose 191 mg/dL 70-110 Osmo 288 280-295 Potassium 4.6 mmol/L 3.5-5.3 Sodium 135 mmol/L 134-148 TBil 0.3 mg/dL 0.2-1.2 TP 5.7 g/dL 6.0-8.3 - 03/23/18 05:19 Hct 26.5 % 36.0-46.0 Hgb 8.7 g/dL 13.0-15.0 Leukoreduced Packed RBC Unit Checkout - 03/23/18 09:05 LRPRBC Checkout Checked Out. [facility] - 03/23/18 10:18 Anion Gap 14 6-14 BUN 27 mg/dL 5-25 Calcium 9.5 mg/dL 8.3-10.4 Chloride 103 mmol/L 95-114 CO2 22 mEq/L 22-33 Creat 1.33 mg/dL 0.50-1.50 eGFR 40 mL/min/1.73m2 >59 Glucose 222 mg/dL 70-110 Osmo 288 280-295 Potassium 4.7 mmol/L 3.5-5.3 Sodium 134 mmol/L 134-148 Leukoreduced Packed RBC Unit Checkout - 03/23/18 14:30 LRPRBC Checkout Checked Out. Comprehensive Metabolic Panel - 03/24/18 05:25 Albumin 3.5 g/dL 3.6-5.1 ALP 30 U/L 35-130 ALT 18 U/L 6-45 Anion Gap 17 6-14 AST 20 U/L 2-40 BUN 28 mg/dL 5-25 Calcium 9.8 mg/dL 8.3-10.4 Chloride 101 mmol/L 95-114 CO2 23 mEq/L 22-33 Creat 1.24 mg/dL 0.50-1.50 eGFR 44 mL/min/1.73m2 >59 Globulin 3.0 g/dL 2.3-3.5 Glucose 158 mg/dL 70-110 Osmo 291 280-295 Potassium 4.1 mmol/L 3.5-5.3 Sodium 137 mmol/L 134-148 TBil 0.6 mg/dL 0.2-1.2 TP 6.5 g/dL 6.0-8.3 SUREPATH PAP AND HPV mRNA E6/E7 - 07/17/18 18:28 CLINICAL INFORMATION: NRG LMP: NRG PREV. PAP: UNKNOWN NRG PREV. BX: NRG SOURCE: Cervix NRG STATEMENT OF ADEQUACY: NRG INTERPRETATION/RESULT: NRG [employer]ER: NRG HPV mRNA E6/E7, SUREPATH VIAL Not Detected NOT DETECTED COMMENT NRG CULTURE, GENITAL - 07/17/18 18:28 CULTURE, GENITAL SEE NOTE NRG Encounters ACCT No. Visit Date/Time Discharge Status Pt. Type Provider Facility Loc./Unit Complaint [id number] 07/26/2018 06:36:00 07/26/2018 11:47:00 DIS Outpatient MINE GERARD DO [facility] PREOP BREAST CANCER [id number] 07/22/2018 01:25:00 07/22/2018 23:59:59 CLS Preadmit TOMEKA ROMAN MD [facility] ONC [id number] 07/05/2018 10:18:00 07/21/2018 00:01:00 DIS Outpatient TOMEKA ROMAN MD [facility] ONC [id number] 06/07/2018 10:14:00 07/04/2018 15:31:00 DIS Outpatient HUGO TANG [facility] ONC [id number] 03/14/2018 10:19:00 04/03/2018 00:01:00 DIS Outpatient HUGO TANG [facility] ONC [id number] 02/06/2018 06:56:00 02/06/2018 14:30:00 DIS Outpatient NEEMA EMMANUEL MD [facility] CATH ABN STRESS TEST [id number] 01/31/2018 10:13:00 01/31/2018 23:59:59 CLS Outpatient SREEKANTH COOLEY [facility] LAB [id number] 01/24/2018 08:54:00 01/24/2018 23:59:59 CLS Outpatient STEFFANIE CHAVEZ [facility] RAD Z78.0 POST-MEOPAUSAL [id number] 01/23/2018 12:00:00 01/23/2018 23:59:59 CLS Preadmit SREEKANTH COOLEY [facility] CARD CORONARY ARTERY DISEASE I25.10 [id number] 01/23/2018 11:28:00 01/23/2018 23:59:59 CLS Outpatient SREEKANTH COOLEY [facility] CARD CAD,HTN [id number] 01/03/2018 10:25:00 01/03/2018 23:59:59 CLS Outpatient ENRRIQUE FUENTES [employer] [facility] LAB [id number] 10/25/2017 09:02:00 10/31/2017 00:01:00 DIS Outpatient HUGO TANG [facility] ONC [id number] 10/25/2017 09:03:00 10/25/2017 23:59:59 CLS Outpatient MADLOSIELBrittany Morocho [employer] [facility] LAB [id number] 09/03/2017 17:03:00 09/03/2017 21:18:00 DIS Emergency OSMAN LINK DO [facility] ER DIZZINESS [id number] 08/02/2017 09:00:00 08/02/2017 23:59:59 CLS Outpatient NEEMA EMMANUEL MD [facility] LAB [id number] 06/21/2017 09:19:00 07/21/2017 00:01:00 DIS Outpatient HUGO TANG [facility] ONC [id number] 05/17/2017 10:56:00 05/23/2017 00:01:00 DIS Outpatient HUGO TANG [facility] ONC [id number] 03/29/2017 09:05:00 03/29/2017 23:59:59 CLS Outpatient STEFFANIE CHAVEZ [employer] [facility] RAD Z12.31 SCREENING, BREAST CA [id number] 02/15/2017 08:58:00 02/21/2017 00:01:00 DIS Outpatient HUGO TANG [facility] ONC [id number] 10/27/2016 09:12:00 10/27/2016 23:59:59 CLS Outpatient STEFFANIE CHAVEZ [employer] [facility] CARD BREAST CA, 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 [id number] 10/18/2016 14:01:00 10/23/2016 00:01:00 DIS Outpatient HUGO TANG [facility] ONC [id number] 08/08/2016 09:35:00 08/08/2016 13:20:00 DIS Outpatient MINE GERARD DO Daryl [facility] SDC SCREENING [id number] 08/03/2016 05:43:00 08/03/2016 13:59:00 DIS Outpatient MINE GERARD DO [facility] PREOP SCREENING [id number] 06/13/2016 09:17:00 07/24/2016 09:24:00 DIS Outpatient HUGO TANG [facility] ONC [id number] 06/13/2016 09:15:00 06/13/2016 23:59:59 CLS Outpatient STEFFANIE CHAVEZP [facility] ONC [id number] 05/30/2016 09:07:00 05/30/2016 23:59:59 CLS Outpatient SREEKANTH COOLEY [facility] LAB [id number] 05/17/2016 10:44:00 05/17/2016 23:59:59 CLS Outpatient CHEL ARRINGTON MD [facility] CARD BREAST CANCER,CORONARY ARTERY DISEASE [id number] 05/15/2016 08:47:00 05/15/2016 23:59:59 CLS Outpatient CHEL ARRINGTON MD [facility] ONC [id number] 04/25/2016 09:16:00 04/25/2016 23:59:59 CLS Outpatient ENRRIQUE FUENTES [employer] [facility] LAB [id number] 04/17/2016 09:11:00 04/24/2016 00:01:00 DIS Outpatient HUGO TANG [facility] ONC [id number] 04/17/2016 10:54:00 04/17/2016 15:00:00 DIS Outpatient CARMENCITA JOHN MD [facility] WOUNDCARE [id number] 04/13/2016 08:59:00 04/13/2016 23:59:59 CLS Outpatient STEFFANIE CHAVEZ [facility] CARD BREAST CANCER, LOW BACK PAIN [id number] 03/21/2016 08:41:00 03/21/2016 23:59:59 CLS Outpatient CHAVEZ HILAH S [employer] [facility] ONC [id number] 03/07/2016 08:50:00 03/07/2016 23:59:59 CLS Outpatient MADLENRRIQUE [employer] [facility] LAB [id number] 02/22/2016 09:19:00 02/22/2016 23:59:59 CLS Outpatient CHAVEZ HILAH S [employer] [facility] ONC [id number] 02/02/2016 07:55:00 02/02/2016 23:59:59 CLS Outpatient NEEMA EMMANUEL MD [facility] CARD [id number] 01/25/2016 10:17:00 01/25/2016 23:59:59 CLS Outpatient NEEMA EMMANUEL MD [facility] LAB [id number] 01/25/2016 09:25:00 01/25/2016 23:59:59 CLS Outpatient CHAVEZ HILAH S [employer] [facility] ONC [id number] 01/18/2016 09:12:00 01/19/2016 00:01:00 DIS Outpatient HUGO TANG [facility] ONC [id number] 01/18/2016 09:36:00 01/18/2016 23:59:59 CLS Outpatient ENRRIQUE FUENTES TUMBLER PLATER [facility] LAB [id number] 12/23/2015 09:09:00 12/23/2015 23:59:59 CLS Outpatient CHAVEZ HILAH S TUMBLER PLATER [facility] RAD [id number] 11/30/2015 09:29:00 11/30/2015 23:59:59 CLS Outpatient CHAVEZ HILAH S TUMBLER PLATER [facility] ONC [id number] 11/22/2015 11:49:00 11/22/2015 23:59:59 CLS Outpatient CHAVEZ HILAH S TUMBLER PLATER [facility] CARD [id number] 11/15/2015 09:10:00 11/15/2015 23:59:59 CLS Outpatient CHAVEZ HILAH S TUMBLER PLATER [facility] ONC [id number] 10/20/2015 09:26:00 10/20/2015 00:01:00 DIS Outpatient HUGO TANG [facility] ONC [id number] 09/29/2015 10:15:00 09/29/2015 23:59:59 CLS Outpatient SREEKANTH COOLEY [facility] LAB [id number] 08/23/2015 07:32:00 08/23/2015 23:59:59 CLS Outpatient HUGO TANG [facility] CARD [id number] 08/18/2015 11:22:00 08/18/2015 23:59:59 CLS Outpatient ENRRIQUE FUENTES TUMBLER PLATER [facility] RAD [id number] 08/11/2015 18:59:00 08/11/2015 23:06:00 DIS Emergency MARTY JAVED [facility] ER [id number] 07/15/2015 13:23:00 07/21/2015 00:01:00 DIS Outpatient HUGO TANG Kelly [facility] ONC [id number] 07/01/2015 13:43:00 07/01/2015 23:59:59 CLS Outpatient CHAVEZSTEFFANIE S TUMBLER PLATER [facility] ONC [id number] 06/03/2015 13:01:00 06/03/2015 23:59:59 CLS Outpatient CHAVEZ HILAH S TUMBLER PLATER [facility] ONC [id number] 05/27/2015 09:42:00 05/27/2015 23:59:59 CLS Outpatient CHAVEZ HILAH S 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 [facility] 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 [id number] 05/27/2015 09:38:00 05/27/2015 00:01:00 DIS Outpatient HUGO TANG N [facility] ONC [id number] 05/12/2015 08:47:00 05/12/2015 23:59:59 CLS Outpatient CHAVEZ, HILAH S TUMBLER PLATER [facility] ONC [id number] 05/08/2015 17:01:00 05/10/2015 11:30:00 DIS Inpatient NEEMA EMMANUEL MD [facility] CSD [id number] 04/25/2015 19:15:00 04/25/2015 21:53:00 DIS 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 [id number] 03/30/2015 14:02:00 03/30/2015 23:59:59 CLS Outpatient STEFFANIE CHAVEZ TUMBLER PLATER [facility] RAD [id number] 03/30/2015 09:10:00 03/30/2015 23:59:59 CLS Outpatient STEFFANIE CHAVEZ S TUMBLER PLATER [facility] ONC [id number] 2015 08:54:00 2015 23:59:59 CLS Outpatient STEFFANIE CHAVEZ TUMBLER PLATER [facility] ONC [id number] 03/05/2015 10:47:00 03/05/2015 15:58:00 DIS Outpatient DARI DOVE MD [facility] SDC BREAST CANCER [id number] 03/04/2015 06:44:00 03/04/2015 23:59:59 CLS Outpatient DARI DOVE MD [facility] PREOP [id number] 03/01/2015 11:09:00 03/01/2015 23:59:59 CLS Outpatient HUGO TANG [facility] CARD [id number] 02/05/2015 06:57:00 02/06/2015 12:30:00 DIS Inpatient DARI DOVE MD [facility] SURGICAL [id number] 02/03/2015 08:04:00 02/03/2015 23:59:59 CLS Outpatient DARI DOVE MD [facility] PREOP [id number] 01/27/2015 14:17:00 01/27/2015 23:59:59 CLS Outpatient DARI DOVE MD [facility] RAD [id number] 01/26/2015 08:08:00 01/26/2015 23:59:59 CLS Outpatient DARI DOVE MD [facility] RAD [id number] 07/29/2018 06:07:00 ACT Outpatient MINE GERARD DO [facility] BREAST CANCER [id number] 05/07/2018 10:17:00 06/06/2018 11:00:00 DIS Outpatient POLLO, KESHIA [id number] 05/08/2018 08:53:00 05/08/2018 23:59:00 DIS Outpatient POLLO, KESHIA [id number] 03/26/2018 12:05:00 04/23/2018 07:00:00 DIS Outpatient POLLO, KESHIA [id number] 03/21/2018 00:00:00 03/25/2018 12:50:00 DIS Inpatient POLLO, [facility] MED-SURG [id number] 03/19/2018 11:32:00 03/19/2018 23:59:00 DIS Outpatient POLLO, KESHIA [id number] 03/15/2018 10:53:00 03/15/2018 23:59:00 DIS Outpatient POLLO, KESHIA [id number] 03/06/2018 10:09:00 03/06/2018 23:59:00 DIS Outpatient POLLO, KESHIA [id number] 12/12/2017 12:15:00 01/18/2018 09:08:00 DIS Outpatient POLLO, KESHIA [id number] 12/21/2017 08:52:00 12/21/2017 23:59:00 DIS Outpatient POLLO, KESHIA [id number] 11/15/2017 14:58:00 12/11/2017 11:58:00 DIS Outpatient POLLO, KESHIA [id number] 11/08/2017 08:22:00 11/14/2017 15:20:00 DIS Inpatient POLLO, [facility] MED-SURG [id number] 10/30/2017 12:38:00 10/30/2017 23:59:00 DIS Outpatient POLLO, KESHIA [id number] 07/12/2017 00:00:00 07/12/2017 23:59:00 DIS Inpatient POLLO, KESHIA [id number] 07/06/2017 13:04:00 07/06/2017 23:59:00 DIS Outpatient POLLO, KESHIA [id number] 07/04/2017 13:11:00 07/04/2017 14:15:00 DIS Outpatient POLLO, KESHIA [id number] 11/30/2016 08:01:00 11/30/2016 23:59:00 DIS Outpatient CHOLONEEMA KULKARNI [id number] 10/25/2016 08:51:00 10/25/2016 23:59:00 DIS Outpatient AC VAUGHAN [id number] 11/07/2017 15:31:17 Document Registration [id number] 04/18/2018 10:00:00 04/18/2018 23:59:59 CLS [facility] [id number] 07/17/2018 14:00:00 Document Registration [id number] 09/27/2016 18:05:00 Document Registration
[2018-07-29] MEDS ORDERED: LACTATED RINGERS 1,000 ML IV PRN (06:43)
[2018-07-29 06:45] VITALS: BP 137/60
[2018-07-29] MEDS ORDERED: ceFAZolin 2 GM IV Premixed 50 ML IV ONE (06:45)
[2018-07-29] MEDS ORDERED: FAMOTIDINE 20MG/2ML IV (PEPCID) IV ONE (06:45)
[2018-07-29] MEDS ORDERED: ONDANSETRON 4 MG/2 ML (SDV) Z0FRAN IV ONE (06:45)
[2018-07-29] MEDS ORDERED: proPOfol 200 MG/20 ML (DIPRIVAN) VIAL IV ONE ×2 (06:58→08:01)
[2018-07-29] MEDS ORDERED: LIDOCAINE PF 2% 2 ML (XYLOCAINE) VIAL ONE (06:58)
[2018-07-29] MEDS ORDERED: fentaNYL INJECTION 100 MCG/2 ML AMP ONE (06:59)
[2018-07-29] MEDS ORDERED: MIDAZOLAM 2 MG/2 ML (VERSED) VIAL ONE (06:59)
[2018-07-29] MEDS ORDERED: BUPIVACAINE 0.5% 30 ML (SENSORCAINE) VIAL ONE (07:06)
[2018-07-29] MEDS ORDERED: LIDOCAINE/EPI 1%-1:200,000 (XYLOCAINE) 10 ML VIAL ONE (07:06)
--- NOTE | 2018-07-29 07:53 | Progress Note-Pre Operative ---
Pre-Operative Progress Note H&P Reviewed The H&P was reviewed, patient examined and no changes noted. Date Seen by Provider: Jul 29, 2018 Time Seen by Provider: 07:39 Date H&P Reviewed: Jul 29, 2018 Time H&P Reviewed: 07:39 Pre-Operative Diagnosis: history breast cancer MINE GERARD DO Jul 29, 2018 07:53
[2018-07-29] MEDS ORDERED: LIDOCAINE 1% INJ 20 ML 20 ML VIAL ONE (07:55)
[2018-07-29] MEDS ORDERED: GLYCOPYRROLATE 0.2 MG/ML (ROBINUL) 2 ML VIAL ONE (08:11)
--- NOTE | 2018-07-29 08:13 | Progress Note-Post Operative ---
Post-Operative Progess Note Surgeon (s)/Bumper Straightener (s) Surgeon MINE GERARD DO Bumper Straightener: na Pre-Operative Diagnosis history breast cancer Post-Operative Diagnosis same Procedure & Operative Findings Date of Procedure 07/29/18 Procedure Performed/Findings removal port Anesthesia Type mac c local Estimated Blood Loss Estimated blood loss (mL): min Specimens/Packing Specimens Removed na MINE GERARD DO Jul 29, 2018 08:13
--- NOTE | 2018-07-29 08:18 | Discharge Inst-Simple/Standard ---
Discharge Inst-Standard Patient Instructions/Follow Up Plan of Care/Instructions/FU: 2 weeks Franc[place]a Activity as Tolerated: Yes Discharge Diet: Regular Diet Other Inst to Patient Follow up Appt: Make appointment for 2 week. Instructions: No strenuous activity. May shower in 24 hours, no tub bath or soaking. Use incentive spirometer at home as directed. No Smoking Skin/Wound Care: You have special glue over incision, it will fall off on its own. Symptoms to Report: Appetite Changes, Extremity Discoloration, Numbness/Tingling, Swelling Increased , Bleeding Excessive, Eyesight Changes, Pain Increased, Urine Color Change, Constipation(Persistent), Fever over 101 degree F, Pain/Pressure in chest, Urinating Difficulty, Cough Up/Vomit Blood, Heart Beat Irreg/Pounding, Pain/ Pressure in jaw, Vaginal Bleeding Increase, Cramps in feet or legs, Lightheadedness, Pain/Pressure in shoulder, Diarrhea(Persistent), Memory Changes Suddenly, Questions/Concerns, Weight gain consecutive days, Dizziness/ Fainting, Nausea/Vomiting, Shortness of Breath, Weight gain over 2 pounds If questions or concerns contact your physician Or seek help at emergency department. MINE GERARD DO Jul 29, 2018 08:18
[2018-07-29] MEDS ORDERED: ONDANSETRON 4 MG/2 ML (SDV) Z0FRAN IVP PRN (08:30)
[2018-07-29] MEDS ORDERED: fentaNYL INJECTION 100 MCG/2 ML AMP IVP ONE (08:30)
[2018-07-29 08:55] VITALS: BP 116/79
[2018-07-29 09:25] VITALS: BP 122/59
--- NOTE | 2018-07-29 09:52 | OPERATIVE REPORT ---
DATE OF SERVICE: 07/29/2018 PREOPERATIVE DIAGNOSIS: History of breast cancer. POSTOPERATIVE DIAGNOSIS: History of breast cancer. PROCEDURE: Port removal. SURGEON: Mine Sorensen DO. ANESTHESIA: MAC with local. ESTIMATED BLOOD LOSS: Minimal. COMPLICATIONS: None. INDICATIONS: The patient is a 63-year-old female with a recent history of breast cancer. She has completed treatment and has been cleared to have port removed. She understands the risks and benefits of procedure and wished to proceed with procedure. Consent was signed on the chart. DESCRIPTION OF PROCEDURE: The patient was taken to the operating suite and was prepped and draped in sterile fashion. Surgical pause was performed. Local anesthetic was infiltrated in and around the port. A 15 blade scalpel was used to make a skin incision. Metzenbaums were used to dissect down to the port, which was unable to be grasped, elevated, mobilized and removed in its entirety. The subcutaneous tissue was then reapproximated with 2-0 Vicryl and skin was then closed using a 4-0 Vicryl in a subcuticular fashion. The area was washed and dried. Skin Affix was placed over the incision. The patient tolerated the procedure well without any complications and taken to recovery room in stable condition. Job ID: [id number] DocumentID: [id number] Dictated Date: 07/29/2018 08:22:09 Tube Mill Operator Date: 07/29/2018 09:51:36 Dictated By: MINE SORENSEN DO
[2018-07-29 09:55] VITALS: BP 136/57
[2018-07-29 11:20] VITALS: BP 136/57
--- NOTE | 2018-07-29 14:50 | Anesthesia-General Post-Op ---
MAC Patient Condition Mental Status/LOC: Same as Preop Cardiovascular: Satisfactory Nausea/Vomiting: Absent Respiratory: Satisfactory Pain: Controlled Complications: Absent Post Op Complications Complications None Follow Up Care/Instructions Patient Instructions None needed. Anesthesiology Discharge Order Discharge Order Patient is doing well, no complaints, stable vital signs, no apparent adverse anesthesia problems. No complications reported per nursing. JERMAINE CARMEN CRNA Jul 29, 2018 14:50
== END 2018-07-29 11:20 | disposition home or self-care (01) ==
LOC: SDC 06:07
PROVIDERS: ATTEND Surgery
DX: Z85.3 Personal history of malignant neoplasm of breast (principal); Z11.2 Encounter for screening for other bacterial diseases; I10 Essential (primary) hypertension; I25.10 Atherosclerotic heart disease of native coronary artery without angina pectoris; E78.2 Mixed hyperlipidemia; Z95.5 Presence of coronary angioplasty implant and graft; E11.40 Type 2 diabetes mellitus with diabetic neuropathy, unspecified; Z79.899 Other long term (current) drug therapy; E78.1 Pure hyperglyceridemia; Z87.891 Personal history of nicotine dependence; I25.2 Old myocardial infarction; Z79.4 Long term (current) use of insulin; Z79.82 Long term (current) use of aspirin
CPT/HCPCS: 82962; 87081

== ENCOUNTER 2018-12-30 09:26 | Outpatient (RCR) | payer MEDICAID ==
[~2018-12-30 09:26] MED LIST changes: -AMLO5TAB7 PO; +AMLO5TAB9 PO; +CHOL200014 PO; -CHOL200085 PO
[2018-12-30 09:40] LABS: BASOPHILS # (AUTO) 0.1 10^3/uL (0.0-0.1); BASOPHILS % (AUTO) 1 % (0-10); EOSINOPHILS # (AUTO) 0.2 10^3/uL (0.0-0.3); EOSINOPHILS % (AUTO) 3 % (0-10); HEMATOCRIT 35 % (35-52); HEMOGLOBIN 11.5 G/DL (11.5-16.0); LYMPHOCYTES # (AUTO) 2.2 X 10^3 (1.0-4.0); LYMPHOCYTES % (AUTO) 25 % (12-44); MEAN CORPUSCULAR HEMOGLOBIN 28 PG (25-34); MEAN CORPUSCULAR HGB CONC 33 G/DL (32-36); MEAN CORPUSCULAR VOLUME 86 FL (80-99); MEAN PLATELET VOLUME 12.5 FL (7.4-10.4); MONOCYTES # (AUTO) 0.6 X 10^3 (0.0-1.0); MONOCYTES % (AUTO) 7 % (0-12); NEUTROPHILS # (AUTO) 5.4 X 10^3 (1.8-7.8); NEUTROPHILS % (AUTO) 64 % (42-75); PLATELET COUNT 269 10^3/uL (130-400); RED CELL DISTRIBUTION WIDTH 14.6 % (10.0-14.5); WHITE BLOOD COUNT 8.5 10^3/uL (4.3-11.0)
[2018-12-30 09:58] LABS: ALBUMIN 4.2 GM/DL (3.2-4.5); BILIRUBIN,TOTAL 0.2 MG/DL (0.1-1.0); CALCIUM 10.2 MG/DL (8.5-10.1); CREATININE SERUM 1.6 MG/DL (0.60-1.30); POTASSIUM 4.4 MMOL/L (3.6-5.0); TOTAL PROTEIN 7.6 GM/DL (6.4-8.2)
== END 2019-03-30 | disposition home or self-care (01) ==
LOC: ONC 09:26
PROVIDERS: ATTEND Internal Medicine Hematology & Oncology
DX: C50.112 Malignant neoplasm of central portion of left female breast (principal); D64.9 Anemia, unspecified; E55.9 Vitamin D deficiency, unspecified; I25.10 Atherosclerotic heart disease of native coronary artery without angina pectoris; I10 Essential (primary) hypertension; E78.5 Hyperlipidemia, unspecified; E78.1 Pure hyperglyceridemia; E11.9 Type 2 diabetes mellitus without complications; I25.2 Old myocardial infarction; Z17.0 Estrogen receptor positive status [ER+]; Z90.12 Acquired absence of left breast and nipple; Z72.0 Tobacco use; Z79.4 Long term (current) use of insulin; Z79.899 Other long term (current) drug therapy
CPT/HCPCS: 36415; 80053; 82306; 83735; 85025; 99213

== ENCOUNTER → 2019-02-21 | Outpatient (CLI) | payer MEDICARE, MEDICAID ==
--- NOTE | 2019-02-21 19:27 | Diagnostic Imaging Report ---
EXAMINATION: Unilateral right mammogram digital screening with 3D tomosynthesis and computer-aided detection (CAD) system. INDICATION: Screening. COMPARISON: This study was compared to the prior exams of 01/24/2018, 03/29/2017, and 12/23/2015. At this time, there are no current complaints. The patient did undergo a mastectomy on the left for carcinoma in 2014. FINDINGS: There are scattered fibroglandular densities in the right breast, which could obscure a lesion. Overall, there does not appear to have been any significant change. There is no primary or secondary sign of malignancy noted. IMPRESSION: There is no evidence of malignancy. ACR BI-RADS Category 1: Negative. Result letter will be mailed to the patient. Note: At least 10% of breast cancer is not imaged by mammography. Dictated by: Dictated on workstation # [id number]
== END ==
LOC: RAD 09:22
PROVIDERS: ATTEND Nurse Practitioner Adult Health
DX: Z12.31 Encounter for screening mammogram for malignant neoplasm of breast (principal); C50.112 Malignant neoplasm of central portion of left female breast

== ENCOUNTER → 2019-03-10 | Outpatient (CLI) | payer MEDICARE, MEDICAID ==
[2019-03-10 10:01] LABS: ALANINE AMINOTRANSFERASE 26 U/L (0-55); ALKALINE PHOSPHATASE 41 U/L (40-136); BILIRUBIN,TOTAL 0.2 MG/DL (0.1-1.0); BUN/CREATININE RATIO 28; CALCIUM 10.5 MG/DL (8.5-10.1); CARBON DIOXIDE 16 MMOL/L (21-32); CHLORIDE 110 MMOL/L (98-107); CHOLESTEROL 175 MG/DL (< 200); CREATININE SERUM 1.31 MG/DL (0.60-1.30); GFR ESTIMATED 41; GLUCOSE 192 MG/DL (70-105); HDL CHOLESTEROL 31 MG/DL (40-60); POTASSIUM 5.3 MMOL/L (3.6-5.0); SODIUM 139 MMOL/L (135-145)
[2019-03-10 11:18] LABS: TRIGLYCERIDES 437 MG/DL (<150)
== END ==
LOC: LAB 09:21
PROVIDERS: ATTEND Physician Assistant
DX: I25.10 Atherosclerotic heart disease of native coronary artery without angina pectoris (principal); I10 Essential (primary) hypertension; E78.5 Hyperlipidemia, unspecified
CPT/HCPCS: 36415; 80053; 80061

== ENCOUNTER → 2019-06-30 | Outpatient (CLI) | payer MEDICARE, MEDICAID ==
[2019-06-30 09:17] LABS: BASOPHILS # (AUTO) 0.1 10^3/uL (0.0-0.1); BASOPHILS % (AUTO) 1 % (0-10); EOSINOPHILS # (AUTO) 0.2 10^3/uL (0.0-0.3); EOSINOPHILS % (AUTO) 3 % (0-10); HEMATOCRIT 36 % (35-52); HEMOGLOBIN 11.4 G/DL (11.5-16.0); LYMPHOCYTES # (AUTO) 1.7 X 10^3 (1.0-4.0); LYMPHOCYTES % (AUTO) 22 % (12-44); MEAN CORPUSCULAR HEMOGLOBIN 28 PG (25-34); MEAN CORPUSCULAR HGB CONC 32 G/DL (32-36); MEAN CORPUSCULAR VOLUME 87 FL (80-99); MEAN PLATELET VOLUME 12.7 FL (7.4-10.4); MONOCYTES # (AUTO) 0.6 X 10^3 (0.0-1.0); MONOCYTES % (AUTO) 7 % (0-12); NEUTROPHILS # (AUTO) 5.2 X 10^3 (1.8-7.8); NEUTROPHILS % (AUTO) 67 % (42-75); PLATELET COUNT 247 10^3/uL (130-400); RED CELL DISTRIBUTION WIDTH 15.2 % (10.0-14.5); WHITE BLOOD COUNT 7.8 10^3/uL (4.3-11.0)
[2019-06-30 09:42] LABS: ALBUMIN 4.2 GM/DL (3.2-4.5); BILIRUBIN,TOTAL 0.2 MG/DL (0.1-1.0); CALCIUM 10.5 MG/DL (8.5-10.1); CREATININE SERUM 1.37 MG/DL (0.60-1.30); POTASSIUM 4.3 MMOL/L (3.6-5.0); TOTAL PROTEIN 7.8 GM/DL (6.4-8.2)
== END ==
LOC: EDSTATUS 03-31 09:02 → ONC 09:05
PROVIDERS: ATTEND Internal Medicine Hematology & Oncology
DX: C50.112 Malignant neoplasm of central portion of left female breast (principal); D64.9 Anemia, unspecified; E55.9 Vitamin D deficiency, unspecified; I25.10 Atherosclerotic heart disease of native coronary artery without angina pectoris; I10 Essential (primary) hypertension; E78.5 Hyperlipidemia, unspecified; E78.1 Pure hyperglyceridemia; E11.9 Type 2 diabetes mellitus without complications; I25.2 Old myocardial infarction; Z17.0 Estrogen receptor positive status [ER+]; Z90.12 Acquired absence of left breast and nipple; Z72.0 Tobacco use; Z79.4 Long term (current) use of insulin; Z79.899 Other long term (current) drug therapy
CPT/HCPCS: 36415; 80053; 85025; 99213

== ENCOUNTER → 2019-12-24 | Outpatient (CLI) | payer MEDICAID, MEDICARE ==
[~2019-12-24] MED LIST changes: -ACET-77 PO; +ACET-78 PO; -LETR2.5T5 PO; +LETR2.5T6 PO; -MECL-106 PO; +MECL-149 PO; -TRAM50TA2 PO; +TRM50T PO
[2019-12-24 09:29] LABS: BASOPHILS # (AUTO) 0.1 10^3/uL (0.0-0.1); BASOPHILS % (AUTO) 1 % (0-10); EOSINOPHILS # (AUTO) 0.2 10^3/uL (0.0-0.3); EOSINOPHILS % (AUTO) 3 % (0-10); HEMATOCRIT 35 % (35-52); HEMOGLOBIN 11.1 G/DL (11.5-16.0); LYMPHOCYTES % (AUTO) 25 % (12-44); MEAN CORPUSCULAR HEMOGLOBIN 28 PG (25-34); MEAN CORPUSCULAR HGB CONC 32 G/DL (32-36); MEAN CORPUSCULAR VOLUME 86 FL (80-99); MEAN PLATELET VOLUME 12.4 FL (7.4-10.4); MONOCYTES # (AUTO) 0.5 X 10^3 (0.0-1.0); MONOCYTES % (AUTO) 6 % (0-12); NEUTROPHILS # (AUTO) 5.3 X 10^3 (1.8-7.8); NEUTROPHILS % (AUTO) 65 % (42-75); PLATELET COUNT 251 10^3/uL (130-400); RED CELL DISTRIBUTION WIDTH 15.3 % (10.0-14.5); WHITE BLOOD COUNT 8.2 10^3/uL (4.3-11.0)
[2019-12-24 09:54] LABS: ALBUMIN 3.9 GM/DL (3.2-4.5); BILIRUBIN,TOTAL 0.2 MG/DL (0.1-1.0); CALCIUM 9.8 MG/DL (8.5-10.1); CREATININE SERUM 1.51 MG/DL (0.60-1.30); POTASSIUM 3.8 MMOL/L (3.6-5.0); TOTAL PROTEIN 7.4 GM/DL (6.4-8.2)
== END ==
LOC: ONC 09:01
PROVIDERS: ATTEND Internal Medicine Hematology & Oncology
DX: C50.919 Malignant neoplasm of unspecified site of unspecified female breast (principal); E55.9 Vitamin D deficiency, unspecified; Z78.0 Asymptomatic menopausal state
CPT/HCPCS: 80053; 82306; 85025; 99213

== ENCOUNTER → 2020-02-24 | Outpatient (CLI) | payer MEDICARE ==
--- NOTE | 2020-02-24 12:46 | Diagnostic Imaging Report ---
INDICATION: Screening for osteoporosis. COMPARISON: 01/24/2018 FINDINGS: The bone mineral density of the spine and the radius and ulna were measured. The study was compared to the prior exam of 01/24/2018. The T score for the spine is 2.9. On the prior exam, the T score is 1.6. This value is within normal limits. The T score for the radius and ulna is -0.4. This value is also within normal limits. The bone mineral density of the hips was not obtained. AP Spine L1-L4: [BMD (g/cm2): 1.545] [T-Score: 2.9] [Z-Score: 3.3] [BMD Previous: 1.390] [BMD % Change: 11.2] LT Hip Neck: [BMD (g/cm2): NA] [T-Score: NA] [Z-Score: NA] LT Hip Total: [BMD (g/cm2):NA] [T-Score:NA] [Z-Score: NA] [BMD Previous: NA] [BMD % Change: NA] RT Hip Neck: [BMD (g/cm2):NA] [T-Score:NA] [Z-Score:NA] RT Hip Total: [BMD (g/cm2):NA] [T-score:NA] [Z-Score:NA] [BMD Previous:NA] [BMD % Change:NA] *Indicates significant change from prior examination based on 95% confidence level. World Health Organization criteria for BMD interpretation classify patients as Normal (T-score at or above -1.0), Osteopenic (T-score between -1.0 and -2.5) or Osteoporotic (T-score at or below -2.5). LIMITATIONS AND MODIFICATION: None. FRACTURE RISK (FRAX SCORE): The ten year probability of (%): Major Osteoporotic Fracture: [NA] Hip Fracture: [NA] IMPRESSION: 1. The bone mineral density of the spine has increased since the prior exam and remains within normal limits. 2. The bone mineral density of the radius and ulna is also within normal limits 3. See below National Osteoporosis Foundation guidelines on when to potentially initiate pharmacologic therapy. Based on the National Osteoporosis Foundation Guidelines, pharmacologic treatment should be initiated in any of the following, unless clinical conditions suggest otherwise: * Any patient with prior fragility fracture of the hip or vertebrae. A spine fracture indicates 5X risk for subsequent spine fracture and 2X risk for subsequent hip fracture. * Osteoporosis (T-score <-2.5). * Postmenopausal women and men age 50 and older with low bone mass/osteopenia (T-score between -1.0 and -2.5) by DXA and 10-year major osteoporotic fracture greater than 20% or a 10-year probability of hip fracture greater than 3%. These fracture risks are supplied above in the FRAX score, if applicable. * Clinician judgement and/or patient preferences may indicate treatment for people with 10-year fracture probabilities above or below these levels. Dictated by: Dictated on workstation # [id number]
--- NOTE | 2020-02-24 16:48 | Diagnostic Imaging Report ---
EXAMINATION: Digital mammogram right screening with CAD. INDICATION: Screening. COMPARISON: This study is compared to the prior exams of 02/21/2019, 01/24/2018, and 03/29/2017. PERSONAL HISTORY: At this time, there are no current complaints. The patient has had a prior left mastectomy for carcinoma in 2014. FINDINGS: There are scattered fibroglandular densities in the right breast which could obscure a lesion. Overall, there has been no significant change since the prior exam. There is no primary or secondary sign of malignancy noted. IMPRESSION: There is no evidence for malignancy. ACR BI-RADS Category 1: Negative. Result letter will be mailed to the patient. Note: At least 10% of breast cancer is not imaged by mammography. Dictated by: Dictated on workstation # [id number]
== END ==
LOC: RAD 09:31
PROVIDERS: ATTEND Nurse Practitioner Adult Health
DX: Z12.31 Encounter for screening mammogram for malignant neoplasm of breast (principal); Z13.820 Encounter for screening for osteoporosis; C50.112 Malignant neoplasm of central portion of left female breast; E55.9 Vitamin D deficiency, unspecified; Z78.0 Asymptomatic menopausal state
CPT/HCPCS: 77063; 77080

== ENCOUNTER → 2020-06-24 | Outpatient (CLI) | payer MEDICARE ==
[~2020-06-24] MED LIST changes: +ASPI-1238 PO; -ASPI-983 PO
[2020-06-24 10:38] LABS: BASOPHILS # (AUTO) 0.1 10^3/uL (0.0-0.1); BASOPHILS % (AUTO) 1 % (0-10); EOSINOPHILS # (AUTO) 0.3 10^3/uL (0.0-0.3); EOSINOPHILS % (AUTO) 3 % (0-10); HEMATOCRIT 36 % (35-52); HEMOGLOBIN 11.4 G/DL (11.5-16.0); LYMPHOCYTES % (AUTO) 21 % (12-44); MEAN CORPUSCULAR HEMOGLOBIN 27 PG (25-34); MEAN CORPUSCULAR HGB CONC 32 G/DL (32-36); MEAN CORPUSCULAR VOLUME 86 FL (80-99); MEAN PLATELET VOLUME 12.4 FL (7.4-10.4); MONOCYTES # (AUTO) 0.7 X 10^3 (0.0-1.0); MONOCYTES % (AUTO) 7 % (0-12); NEUTROPHILS # (AUTO) 6.3 X 10^3 (1.8-7.8); NEUTROPHILS % (AUTO) 67 % (42-75); PLATELET COUNT 276 10^3/uL (130-400); WHITE BLOOD COUNT 9.3 10^3/uL (4.3-11.0)
[2020-06-24 11:02] LABS: ALBUMIN 4.1 GM/DL (3.2-4.5); BILIRUBIN,TOTAL 0.2 MG/DL (0.1-1.0); CALCIUM 10.3 MG/DL (8.5-10.1); CREATININE SERUM 1.41 MG/DL (0.60-1.30); POTASSIUM 4.4 MMOL/L (3.6-5.0); TOTAL PROTEIN 8.1 GM/DL (6.4-8.2)
== END ==
LOC: ONC 10:28
PROVIDERS: ATTEND Internal Medicine Hematology & Oncology
DX: C50.112 Malignant neoplasm of central portion of left female breast (principal); E55.9 Vitamin D deficiency, unspecified; M19.90 Unspecified osteoarthritis, unspecified site; N18.3 Chronic kidney disease, stage 3 (moderate); Z90.12 Acquired absence of left breast and nipple; Z98.890 Other specified postprocedural states; Z92.21 Personal history of antineoplastic chemotherapy; Z92.3 Personal history of irradiation; Z86.79 Personal history of other diseases of the circulatory system; Z96.641 Presence of right artificial hip joint
CPT/HCPCS: 80053; 82306; 85025; 99213

== ENCOUNTER → 2020-07-26 | Outpatient (CLI) | payer MEDICARE ==
[~2020-07-26] VITALS: Ht 172 cm; Wt 123.0 kg
[~2020-07-26] MED LIST changes: +CATHETER FLUSH 10 ML SYR IV PRN; +REGADENOSON 0.4 MG/5 ML SYR (LEXISCAN) IV ONE
[2020-07-26 09:17] VITALS: BP 150/70
--- NOTE | 2020-07-27 08:40 | Cardiology Stress Test Report ---
Stress Test Report Date of Procedure/Referring: Date of Procedure: Jul 26, 2020 PCP Neema Carver MD Admitting Physician José Manuel Jlues MD Indications: Diabetes mellitus, hypertension Baseline Heart Rate: 70 Baseline Blood Pressure: Blood Pressure Systolic: 150 Blood Pressure Diastolic: 70 Baseline Vitals Vital Signs Date Time Temp Pulse Resp B/P (MAP) Pulse Ox O2 Delivery O2 Flow Rate FiO2 07/26/20 09:17 72 18 150/70 (96) 98 Room Air Baseline EKG: Baseline EKG: normal sinus rhythm, occasional PVCs Summary After explaining the procedure to the patient, she signed a consent and then brought to the stress nuclear laboratory. Patient received 0.4 mg Lexiscan for stress test, ECG, heart rate and blood pressure were monitored continuously. Resting and stress dose of radio tracer were injected, imaging was acquired and reviewed in short axis, horizontal long axis and vertical long axis views. TID: 1.03 SSS: 4 SDS: 4 EF: 60 1. Patient tolerated Lexiscan well 2. Occasional PVCs noted during test 3. Mild reversible ischemia involving the mid to apical inferior wall 4. Normal left ventricular size, EF 60 percent NEEMA CARVER MD Jul 27, 2020 08:40
== END ==
LOC: CARD 07:56
PROVIDERS: ATTEND Internal Medicine Cardiovascular Disease
DX: E13.9 Other specified diabetes mellitus without complications (principal); I10 Essential (primary) hypertension; E78.1 Pure hyperglyceridemia; E78.2 Mixed hyperlipidemia; R59.0 Localized enlarged lymph nodes
CPT/HCPCS: 78452; 93017

== ENCOUNTER 2020-10-19 17:00 | Inpatient (IN) | payer MEDICARE ==
[~2020-10-19] VITALS: Ht 172.7 cm; Wt 110.6 kg
[~2020-10-19 17:00] MED LIST changes: +AMLO-250 PO; -AMLO5TAB9 PO; -CATHETER FLUSH 10 ML SYR IV PRN; -REGADENOSON 0.4 MG/5 ML SYR (LEXISCAN) IV ONE
[2020-10-19 17:29] LABS: BASOPHILS # (AUTO) 0.1 10^3/uL (0.0-0.1); BASOPHILS % (AUTO) 1 % (0-10); EOSINOPHILS # (AUTO) 0.1 10^3/uL (0.0-0.3); EOSINOPHILS % (AUTO) 1 % (0-10); HEMATOCRIT 39 % (35-52); HEMOGLOBIN 11.6 g/dL (11.5-16.0); LYMPHOCYTES # (AUTO) 1.1 10^3/uL (1.0-4.0); LYMPHOCYTES % (AUTO) 17 % (12-44); MEAN CORPUSCULAR HEMOGLOBIN 26 pg (25-34); MEAN CORPUSCULAR HGB CONC 30 g/dL (32-36); MEAN CORPUSCULAR VOLUME 88 fL (80-99); MEAN PLATELET VOLUME 12.3 fL (9.0-12.2); MONOCYTES # (AUTO) 0.9 10^3/uL (0.0-1.0); MONOCYTES % (AUTO) 14 % (0-12); NEUTROPHILS # (AUTO) 4.3 10^3/uL (1.8-7.8); NEUTROPHILS % (AUTO) 66 % (42-75); PLATELET COUNT 240 10^3/uL (130-400); WHITE BLOOD COUNT 6.5 10^3/uL (4.3-11.0)
[2020-10-19] MEDS ORDERED: ACETAMINOPHEN 500 MG TAB (TYLENOL) PO ONE (17:30)
[2020-10-19 17:40] LABS: ALBUMIN 4.1 GM/DL (3.2-4.5); POTASSIUM 4.2 MMOL/L (3.6-5.0)
[2020-10-19 17:41] LABS: CALCIUM 9.8 MG/DL (8.5-10.1)
[2020-10-19 17:43] LABS: TOTAL PROTEIN 8.4 GM/DL (6.4-8.2)
[2020-10-19 17:44] LABS: BILIRUBIN,TOTAL 0.3 MG/DL (0.1-1.0)
[2020-10-19 17:46] LABS: CREATININE SERUM 1.56 MG/DL (0.60-1.30)
[2020-10-19 17:49] LABS: INR 1.1 (0.8-1.4); PROTHROMBIN TIME PATIENT 14.2 SEC (12.2-14.7)
[2020-10-19 18:03] LABS: BILIRUBIN,URINE NEGATIVE (NEGATIVE); CLARITY,URINE CLEAR; COLOR,URINE YELLOW; GLUCOSE, URINE (UA) NEGATIVE (NEGATIVE); KETONES,URINE NEGATIVE (NEGATIVE); LEUKOCYTE ESTERASE ,URINE NEGATIVE (NEGATIVE); NITRITE,URINE NEGATIVE (NEGATIVE); PH,URINE 5.5 (5-9); PROTEIN,URINE NEGATIVE (NEGATIVE)
--- NOTE | 2020-10-19 18:06 | ED General ---
General Chief Complaint: Respiratory Problems Stated Complaint: COVID +/SOB Nursing Triage Note: Pt sent to ED via EMS from [facility]. Pt was tested positive for COVID 19 at [facility] today. Pt's O2 sat was reportedly in the 80s. EMS reports placing pt on 4 L O@ and O2 joselito to high 90s. Pt reports symptoms began Sunday. Pt c/o aches and chills. Nursing Sepsis Screen: Possible Sepsis Risk Source of Information: Patient, EMS Exam Limitations: No Limitations History of Present Illness Date Seen by Provider: Oct 19, 2020 Time Seen by Provider: 17:02 Initial Comments This 65-year-old woman presents to the emergency room via EMS from the [facility] clinic where she was tested for COVID-19 (+) and found to be hypoxic with oxygen saturations of 80% on room air. She does not normally require supplemental oxygen at home. She complains of weakness, myalgia, low-grade fever, and shortness of breath. She has numerous comorbidities including diabetes. Allergies and Home Medications Allergies Coded Allergies: chlorhexidine (Verified Allergy, Unknown, 02/06/18) codeine (Unverified Allergy, Unknown, 09/03/17) scopolamine (Verified Allergy, Unknown, 02/06/18) Home Medications Acetaminophen 500 Mg Tablet, 1,000 MG PO BID, (Reported) Amlodipine Besylate 5 Mg Tablet, 5 MG PO DAILY, (Reported) Aspirin 81 Mg Tablet.dr, 81 MG PO DAILY, (Reported) Atorvastatin Calcium 10 Mg Tablet, 10 MG PO DAILY, (Reported) Cholecalciferol (Vitamin D3) 5,000 Unit Capsule, 5,000 UNIT PO DAILY, (Reported) Fenofibrate,Micronized 134 Mg Capsule, 134 MG PO DAILY, (Reported) Fish Oil/Dha/Epa 1 Each Capsule, 1 EACH PO TID, (Reported) Folic Acid 0.8 Mg Tablet, 0.8 MG PO DAILY, (Reported) Gabapentin 300 Mg Capsule, 300 MG PO BID, (Reported) Hydrochlorothiazide 25 Mg Tablet, 25 MG PO DAILY, (Reported) Insulin Aspart 300 Units/3 Ml Solution, 14 UNITS SQ AC, (Reported) Insulin Glargine,Hum.rec.anlog 100 Unit/1 Ml Insuln.pen, 50 UNIT SQ DAILY, (Reported) Letrozole 2.5 Mg Tablet, 2.5 MG PO DAILY, (Reported) Lisinopril 20 Mg Tablet, 40 MG PO DAILY, (Reported) Magnesium Oxide 400 Mg Tablet, 400 MG PO TID, (Reported) Metoprolol Tartrate 25 Mg Tablet, 12.5 MG PO BID, (Reported) Pantoprazole Sodium 40 Mg Granpkt.dr, 40 MG PO DAILY, (Reported) Patient Home Medication List Home Medication List Reviewed: Yes Review of Systems Review of Systems Constitutional: see HPI EENTM: no symptoms reported Respiratory: see HPI Cardiovascular: no symptoms reported Gastrointestinal: no symptoms reported Genitourinary: no symptoms reported : No Musculoskeletal: see HPI Skin: no symptoms reported Psychiatric/Neurological: No Symptoms Reported Hematologic/Lymphatic: No Symptoms Reported Immunological/Allergic: no symptoms reported Past Aaqitou-Gvboon-Zhrwjr Hx Past Med/Social Hx: Reviewed Nursing Past Med/Soc Hx Patient Social History Alcohol Use: Denies Use Recreational Drug Use: No Smoking Status: Former Smoker Type Used: Cigarettes Former Smoker, Quit: Feb 06, 2015 Recent Foreign Travel: No Contact w/Someone Who Travel: No Recent Infectious Disease Expo: No Recent Hopitalizations: No Immunizations Up To Date Tetanus Booster (TDap): More than 5yrs Date of Pneumonia Vaccine: Aug 08, 2016 Seasonal Allergies Seasonal Allergies: No Past Medical History Surgeries: Yes (LEFT BREAST MASTECTOMY, 6 LYMPH NODE REMOVED,BILAT CTR, L ULNAR NERVE, PORT) Breast, Cardiac, Coronary Stent, Gallbladder, Joint Replacement, Orthopedic, Tubal Ligation Respiratory: No Cardiac: Yes (NONSTEMI) Coronary Artery Disease, Heart Attack, High Cholesterol, Hypertension Neurological: Yes (PERIPHERAL NEUROPATHY-FEET) Neuropathy Reproductive Disorders: No Female Reproductive Disorders: Denies Sexually Transmitted Disease: No HIV/AIDS: No Genitourinary: Yes (CHRONIC RENAL INSUFFICIENCY) Bladder Infection, Kidney Stones, Renal Failure Gastrointestinal: No (S/P JENNIFER) Gall Bladder Disease Musculoskeletal: Yes Arthritis, Chronic Back Pain Endocrine: Yes Diabetes, Insulin dep HEENT: No Loss of Vision: Bilateral Hearing Impairment: Denies Cancer: Yes (LEFT BREAST CA, LYMPH NODES) Breast Did You Recieve Any Treatments: Yes What Type of Treatment Did You: Chemotherapy, Radiation, Surgical Intervention Psychosocial: No Integumentary: No Blood Disorders: Yes (ANEMIA) Adverse Reaction/Blood Tranf: No (N/A) Family Medical History Asthma G8 SISTER Cardiovascular disease 19 FATHER Diabetes mellitus G8 SISTER FH: breast cancer SISTER FH: leukemia 19 MOTHER, , Age:52 Psychosocial problem G8 SISTER No Family History of: AIDS Abdominal aortic aneurysm [place]'s disease Alcoholism Alzheimer's disease Arthritis Cancer of mouth Colon cancer Completed stroke Dementia Drug abuse Kidney disease Myocardial infarction Parkinson's disease Prostate cancer Respiratory disorder Seizure disorder Severe allergy Thyroid disease Tuberculosis No Pertinent Family Hx Physical Exam-Suspected Sepsis Physical Exam Vital Signs Vital Signs - First Documented 10/19/20 17:03 Temp 38.2 Pulse 93 Resp 13 B/P (MAP) 174/75 (108) Pulse Ox 99 O2 Delivery Nasal Cannula O2 Flow Rate 4.00 Capillary Refill : Less Than 3 Seconds Blood Pressure Mean: 108 Height, Weight, BMI Height: 5'9.00" Weight: 230lbs. 0.0oz. 104.283590mv; 41.00 BMI Method:Stated General Appearance: No Apparent Distress, Obese, Other (Weak) HEENT: PERRL/EOMI, Normal ENT Inspection Neck: Normal Inspection; No JVD Respiratory: Lungs Clear, Normal Breath Sounds, No Accessory Muscle Use, No Respiratory Distress Cardiovascular: Regular Rate, Rhythm, No Murmur, Other (Lower extremity edema, right greater than left, stated as chronic and unchanged) Gastrointestinal: Normal Bowel Sounds, Non Tender, Soft Extremity: Normal Capillary Refill, Non Tender, Other (See above) Neurologic/Psychiatric: Alert, Oriented x3, No Motor/Sensory Deficits, Normal Mood/Affect, it assistant II-XII Norm as Tested Reflexes: 1+ Tricep (L) Skin: normal color, warm/dry Focused Exam Lactate Level 10/19/20 17:15: Lactic Acid Level 1.29 Lactic Acid Level Laboratory Tests Test 10/19/20 17:15 Lactic Acid Level 1.29 MMOL/L (0.50-2.00) Progress/Results/Core Measures Suspected Sepsis Recent Fever Within 48 Hours: Yes Infection Criteria Present: Suspected New Infection New/Unexplained Altered Menta: No Sepsis Screen: Possible Sepsis Risk SIRS Temperature: Pulse: 93 Respiratory Rate: 13 Laboratory Tests 10/19/20 17:15: White Blood Count 6.5 Blood Pressure 174 /75 Mean: 108 10/19/20 17:15: Lactic Acid Level 1.29 Laboratory Tests 10/19/20 17:15: Creatinine 1.56H, INR Comment 1.1, Platelet Count 240, Total Bilirubin 0.3 Results/Orders Lab Results Laboratory Tests Test 10/19/20 17:15 10/19/20 17:40 Range/Units White Blood Count 6.5 4.3-11.0 10^3/uL Red Blood Count 4.39 3.80-5.11 10^6/uL Hemoglobin 11.6 11.5-16.0 g/dL Hematocrit 39 35-52 % Mean Corpuscular Volume 88 80-99 fL Mean Corpuscular Hemoglobin 26 25-34 pg Mean Corpuscular Hemoglobin Concent 30 L 32-36 g/dL Red Cell Distribution Width 16.3 H 10.0-14.5 % Platelet Count 240 130-400 10^3/uL Mean Platelet Volume 12.3 H 9.0-12.2 fL Immature Granulocyte % (Auto) 2 % Neutrophils (%) (Auto) 66 42-75 % Lymphocytes (%) (Auto) 17 12-44 % Monocytes (%) (Auto) 14 H 0-12 % Eosinophils (%) (Auto) 1 0-10 % Basophils (%) (Auto) 1 0-10 % Neutrophils # (Auto) 4.3 1.8-7.8 10^3/uL Lymphocytes # (Auto) 1.1 1.0-4.0 10^3/uL Monocytes # (Auto) 0.9 0.0-1.0 10^3/uL Eosinophils # (Auto) 0.1 0.0-0.3 10^3/uL Basophils # (Auto) 0.1 0.0-0.1 10^3/uL Immature Granulocyte # (Auto) 0.1 0.0-0.1 10^3/uL Prothrombin Time 14.2 12.2-14.7 SEC INR Comment 1.1 0.8-1.4 Activated Partial Thromboplast Time 28 24-35 SEC D-Dimer 0.59 H 0.00-0.49 UG/ML Sodium Level 138 135-145 MMOL/L Potassium Level 4.2 3.6-5.0 MMOL/L Chloride Level 100 98-107 MMOL/L Carbon Dioxide Level 28 21-32 MMOL/L Anion Gap 10 5-14 MMOL/L Blood Urea Nitrogen 34 H 7-18 MG/DL Creatinine 1.56 H 0.60-1.30 MG/DL Estimat Glomerular Filtration Rate 33 BUN/Creatinine Ratio 22 Glucose Level 97 70-105 MG/DL Lactic Acid Level 1.29 0.50-2.00 MMOL/L Calcium Level 9.8 8.5-10.1 MG/DL Corrected Calcium 9.7 8.5-10.1 MG/DL Total Bilirubin 0.3 0.1-1.0 MG/DL Aspartate Amino Transf (AST/SGOT) 78 H 5-34 U/L Alanine Aminotransferase (ALT/SGPT) 33 0-55 U/L Alkaline Phosphatase 36 L 40-136 U/L Lactate Dehydrogenase 350 H 125-220 U/L C-Reactive Protein High Sensitivity 2.31 H 0.00-0.50 MG/DL Total Protein 8.4 H 6.4-8.2 GM/DL Albumin 4.1 3.2-4.5 GM/DL Procalcitonin 0.32 H <0.10 NG/ML Urine Color YELLOW Urine Clarity CLEAR Urine pH 5.5 5-9 Urine Specific [place] 1.020 1.016-1.022 Urine Protein NEGATIVE NEGATIVE Urine Glucose (UA) NEGATIVE NEGATIVE Urine Ketones NEGATIVE NEGATIVE Urine Nitrite NEGATIVE NEGATIVE Urine Bilirubin NEGATIVE NEGATIVE Urine Urobilinogen 0.2 < = 1.0 MG/DL Urine Leukocyte Esterase NEGATIVE NEGATIVE Urine RBC (Auto) NEGATIVE NEGATIVE Urine RBC NONE /HPF Urine WBC RARE /HPF Urine Squamous Epithelial Cells 0-2 /HPF Urine Crystals NONE /LPF Urine Bacteria TRACE /HPF Urine Casts NONE /LPF Urine Mucus NEGATIVE /LPF Urine Culture Indicated CULTURE PENDING Micro Results Microbiology 10/19/20 Influenza Types A,B Antigen (MARLENE) - Final, Complete My Orders Orders - JON MCNULTY MD Procalcitonin (Pct) (10/19/20 17:19) Hs C Reactive Protein (10/19/20 17:19) LDH (10/19/20 17:19) Influenza A And B Antigens (10/19/20 17:19) Cbc With Automated Diff (10/19/20 17:19) Comprehensive Metabolic Panel (10/19/20 17:19) Blood Culture (10/19/20 17:19) Sputum Culture (10/19/20 17:19) Urinalysis (10/19/20 17:19) Urine Culture (10/19/20 17:19) Protime With Inr (10/19/20 17:19) Partial Thromboplastin Time (12/29/20 17:19) Chest 1 View, Ap/Pa Only (10/19/20 17:19) Ed Iv/Invasive Line Start (10/19/20 17:19) Vital Signs Adult Sepsis Patie Q15M (10/19/20 17:19) O2 (10/19/20 17:19) Remove Rings In Anticipation O (10/19/20 17:19) Lactic Acid Analyzer (10/19/20 17:19) Acetaminophen Tablet (Tylenol Tablet) (10/19/20 17:30) Dexamethasone Injection (Decadron Inje (10/20/20 07:00) Dexamethasone Injection (Decadron Inje (10/19/20 17:28) Dexamethasone Injection (Decadron Inje (10/19/20 17:45) Fibrin Degradation Products (10/19/20 17:59) Enoxaparin Injection (Lovenox Injection) (10/19/20 18:45) Medications Given in ED Current Medications Medications Dose Ordered Sig/Josefina Route Start Time Stop Time Status Last Admin Dose Admin Acetaminophen 1,000 mg ONCE ONCE PO 10/19/20 17:30 10/19/20 17:31 DC 10/19/20 17:29 1,000 MG Dexamethasone Sodium Phosphate 6 mg ONCE ONCE IV 10/19/20 17:45 10/19/20 17:46 DC 10/19/20 17:42 6 MG Vital Signs/I&O 10/19/20 17:03 Temp 38.2 Pulse 93 Resp 13 B/P (MAP) 174/75 (108) Pulse Ox 99 O2 Delivery Nasal Cannula O2 Flow Rate 4.00 Capillary Refill : Less Than 3 Seconds Blood Pressure Mean: 108 Progress Note : Progress Note Patient was stable on nasal cannula oxygen supplementation. She was given dexamethasone and Lovenox. D-dimer was minimally elevated. She cannot have CT angiogram at this time due to her renal function. Case was discussed with Dr. Law who accepted admission. I discussed use of convalescent plasma with the patient and described that it is for emergency use authorization. She verbally consented to convalescent plasma treatment. Diagnostic Imaging Diagonstic Imaging: Xray Plain Films/CT/US/NM/MRI: chest Comments Chest x-ray viewed by me and report reviewed. See report below: NAME: FAN NJ [facility] REC#: [id number] PT STATUS: REG ER : 1955 PHYSICIAN: JON MCNULTY MD ADMIT DATE: 10/19/20/ER Draft Date of Exam:10/19/20 CHEST 1 VIEW, AP/PA ONLY EXAM: CHEST 1 VIEW, AP/PA ONLY INDICATION: Shortness of air. Cough. COVID positive. COMPARISON: Chest radiograph 02/06/2018. FINDINGS: No focal pulmonary opacity, pleural effusion or pneumothorax. Normal heart size and central pulmonary vascularity. No acute osseous findings. IMPRESSION: No acute cardiopulmonary findings. Dictated on workstation # [id number] Dict: 10/19/209 Trans: 10/19/20 1826 [facility] [id number] Interpreted by: MARGARET CAMARGO MD Departure Communication (Admissions) Time/Spoke to Admitting Phy: 17:30 Dr. Law Impression Primary Impression: COVID-19 Additional Impression: Hypoxia Disposition: ADMITTED INPATIENT Condition: Improved Admissions Decision to Admit Reason: Admit from ER (General) Decision to Admit/Date: Oct 19, 2020 Time/Decision to Admit Time: 17:05 Departure-Patient Inst. Referrals: BHAVANA QUINTERO MD (PCP/Family) Primary Care Physician JON MCNULTY MD Oct 19, 2020 18:06
[2020-10-19 18:14] LABS: BACTERIA,URINE TRACE /HPF; SQUAMOUS EPITHELIAL CELL,UR 0-2 /HPF; WBC,URINE RARE /HPF
--- NOTE | 2020-10-19 18:26 | Diagnostic Imaging Report ---
EXAM: CHEST 1 VIEW, AP/PA ONLY INDICATION: Shortness of air. Cough. COVID positive. COMPARISON: Chest radiograph 02/06/2018. FINDINGS: No focal pulmonary opacity, pleural effusion or pneumothorax. Normal heart size and central pulmonary vascularity. No acute osseous findings. IMPRESSION: No acute cardiopulmonary findings. Dictated by: Dictated on workstation # [id number]
[2020-10-19] MEDS ORDERED: ENOXAPARIN 60 MG/0.6 ML (LOVENOX) SYR SC ONE (18:45)
[2020-10-19 19:49] VITALS: BP 138/76
[2020-10-19] MEDS ORDERED: CATHETER FLUSH 10 ML SYR IV PRN (20:00)
[2020-10-19] MEDS ORDERED: ONDANSETRON 4 MG/2 ML (SDV) Z0FRAN IV PRN (20:00)
--- NOTE | 2020-10-19 20:03 | NUR ---
FAN NJ admitted to room 430-1, with an admitting diagnosis of covid +/ hypoxia, on 10/19/20 from ER via wheelchair, accompanied by staff.FAN NJ introduced to surroundings, call light, bed controls, phone, TV, temperature control, lights, meal times, smoking policy, visitor policy, side rail policy, bathrooms and showers. Patient Rights given to patient in the handbook. FAN NJ verbalizes understanding that [facility] is not responsible for the loss or damage to any personal effects or valuables that are kept in the patients posession during their hospitalization.
[2020-10-19 21:00] VITALS: BP 138/76
[2020-10-19] MEDS: meTOprolol TARTRATE 25 MG (LOPRESSOR) TABLET PO SCH (21:26)
[2020-10-19] MEDS: CATHETER FLUSH 10 ML SYR IV SCH (21:27)
[2020-10-19] MEDS: GABAPENTIN 300 MG (NEURONTIN) CAP PO SCH (21:27)
[2020-10-19 22:26] VITALS: BP 138/76
[2020-10-20] VITALS: BP 128/56
[2020-10-20 03:46] VITALS: BP 135/64
[2020-10-20] MEDS: CATHETER FLUSH 10 ML SYR IV SCH ×3 (06:12→20:42)
--- NOTE | 2020-10-20 06:26 | History & Physical-Hospitalist ---
History of Present Illness HPI/Chief Complaint CC: Dyspnea HPI: This is a 65yoWF clinic pt of Dr. Jules who has a hx of breast cancer who presented for SOB and chest pain found to have Covid at [facility] and high risk for decompensation so she was admitted for Remdesivir, Dexamethasone, Lovenox, and protocol treatment. Source: patient Exam Limitations: no limitations Date Seen 10/20/20 Time Seen by a Provider: 10:00 Attending Physician Selene Law DO PCP José Manuel Jules MD Referring Physician Date of Admission Oct 19, 2020 at 18:18 Home Medications & Allergies Home Medications Reviewed patient Home Medication Reconciliation performed by pharmacy medication reconciliations satellite installation technician and/or nursing. Patients Allergies have been reviewed. Allergies Allergies Coded Allergies chlorhexidine (Verified Allergy, Unknown, 02/06/18) codeine (Unverified Allergy, Unknown, 09/03/17) scopolamine (Verified Allergy, Unknown, 02/06/18) Past Zodnhfa-Wioagb-Bmaupg Hx Past Med/Social Hx: Reviewed Nursing Past Med/Soc Hx, Reviewed and Corrections made Patient Social History Marrital Status: single Employed/Student: retired Alcohol Use: Denies Use Recreational Drug Use: No Smoking Status: Former Smoker Former Smoker, Quit: Feb 06, 2015 Type Used: Cigarettes Recent Foreign Travel: No Contact w/other who traveled: No Recent Hopitalizations: No Recent Infectious Disease Expo: Yes (covid) Immunizations Up To Date Tetanus Booster (TDap): More than 5yrs Date of Pneumonia Vaccine: Aug 08, 2016 Seasonal Allergies Seasonal Allergies: No Past Medical History Surgeries: Breast, Cardiac, Coronary Stent, Gallbladder, Joint Replacement, Orthopedic, Tubal Ligation Cardiac: Coronary Artery Disease, Heart Attack, High Cholesterol, Hypertension Neurological: Neuropathy Reproductive: No Sexually Transmitted Disease: No HIV/AIDS: No Female Reproductive Disorders: Denies Genitourinary: Bladder Infection, Kidney Stones, Renal Failure Gastrointestinal: Gall Bladder Disease Musculoskeletal: Arthritis, Chronic Back Pain Endocrine: Diabetes, Insulin dep Loss of Vision: Bilateral Hearing Impairment: Denies Cancer: Breast Did You Recieve Any Treatments: Yes What Type of Treatment Did You: Chemotherapy, Radiation, Surgical Intervention History of Blood Disorders: Yes (ANEMIA) Adverse Reaction to Blood Simms: No (N/A) Family History Asthma G8 SISTER Cardiovascular disease 19 FATHER Diabetes mellitus G8 SISTER FH: breast cancer SISTER FH: leukemia 19 MOTHER, , Age:52 Psychosocial problem G8 SISTER No Family History of: AIDS Abdominal aortic aneurysm [place]'s disease Alcoholism Alzheimer's disease Arthritis Cancer of mouth Colon cancer Completed stroke Dementia Drug abuse Kidney disease Myocardial infarction Parkinson's disease Prostate cancer Respiratory disorder Seizure disorder Severe allergy Thyroid disease Tuberculosis No Pertinent Family Hx Review of Systems Constitutional: see HPI, malaise, weakness Psychiatric/Neurological: See HPI Physical Exam Physical Exam Vital Signs Vital Signs - First Documented 10/19/20 17:03 Temp 38.2 Pulse 93 Resp 13 B/P (MAP) 174/75 (108) Pulse Ox 99 O2 Delivery Nasal Cannula O2 Flow Rate 4.00 Capillary Refill : Less Than 3 Seconds Height, Weight, BMI Height: 5'9.00" Weight: 230lbs. 0.0oz. 104.448880hm; 39.26 BMI Method:Stated General Appearance: No Apparent Distress, Chronically ill Eyes: Right Eye Normal Inspection, Right Eye PERRL HEENT: PERRL/EOMI, Normal ENT Inspection, Pharynx Normal, Moist Mucous Membranes Neck: Full Range of Motion, Normal Inspection, Non Tender Respiratory: Chest Non Tender, No Accessory Muscle Use, No Respiratory Distress, Decreased Breath Sounds Cardiovascular: Regular Rate, Rhythm, No Edema, No Gallop, No JVD, No Murmur, Normal Peripheral Pulses Gastrointestinal: Normal Bowel Sounds, No Organomegaly, No Pulsatile Mass, Non Tender, Soft Back: Normal Inspection, No CVA Tenderness, No Vertebral Tenderness Extremity: Normal Capillary Refill, Normal Inspection, Normal Range of Motion, Non Tender, No Calf Tenderness, No Pedal Edema Neurologic/Psychiatric: Alert, Oriented x3, No Motor/Sensory Deficits, Normal Mood/Affect Skin: Normal Color, Warm/Dry Lymphatic: No Adenopathy Results Results/Procedures Labs Laboratory Tests 10/21/20 06:19 Patient resulted labs reviewed. Assessment/Plan Admission Diagnosis Assessment: COVID-19 PNA Hypoxia Breast cancer hx CAD HTN HLP Plan: O2 Lovenox COVID-19 support Admission Status: Inpatient Order (span 2 midnights) Reason for Inpatient Admission: COVID 19 Diagnosis/Problems Diagnosis/Problems (1) COVID-19 Status: Acute (2) Hypoxia Status: Acute (3) Breast cancer Status: Acute (4) HTN (hypertension) (5) CAD (coronary artery disease) (6) Diabetes mellitus Clinical Quality Measures DVT/VTE Risk/Contraindication: Risk Factor Score Per Nursin RFS Level Per Nursing on Admit: 3=High SELENE LAW DO Oct 20, 2020 06:26
[2020-10-20 07:09] LABS: BASOPHILS % (AUTO) 1 % (0-10); HEMOGLOBIN 10.6 g/dL (11.5-16.0)
[2020-10-20 07:11] LABS: EOSINOPHILS % (AUTO) 0 % (0-10); HEMATOCRIT 34 % (35-52); LYMPHOCYTES # (AUTO) 0.9 10^3/uL (1.0-4.0); LYMPHOCYTES % (AUTO) 15 % (12-44); MEAN CORPUSCULAR HEMOGLOBIN 27 pg (25-34); MEAN CORPUSCULAR HGB CONC 31 g/dL (32-36); MEAN CORPUSCULAR VOLUME 86 fL (80-99); MEAN PLATELET VOLUME 13.4 fL (9.0-12.2); MONOCYTES # (AUTO) 0.5 10^3/uL (0.0-1.0); MONOCYTES % (AUTO) 8 % (0-12); NEUTROPHILS # (AUTO) 4.8 10^3/uL (1.8-7.8); NEUTROPHILS % (AUTO) 75 % (42-75); PLATELET COUNT 225 10^3/uL (130-400); WHITE BLOOD COUNT 6.4 10^3/uL (4.3-11.0)
[2020-10-20 07:30] LABS: ALBUMIN 3.7 GM/DL (3.2-4.5); POTASSIUM 4.8 MMOL/L (3.6-5.0)
[2020-10-20 07:31] LABS: CALCIUM 9.3 MG/DL (8.5-10.1)
[2020-10-20 07:33] LABS: TOTAL PROTEIN 7.7 GM/DL (6.4-8.2)
[2020-10-20 07:34] LABS: BILIRUBIN,TOTAL 0.2 MG/DL (0.1-1.0)
[2020-10-20 07:36] LABS: CREATININE SERUM 1.47 MG/DL (0.60-1.30)
--- NOTE | 2020-10-20 07:56 | Diagnostic Imaging Report ---
INDICATION: Respiratory distress, COVID infection AP view of the chest is obtained with comparison made to study of one day earlier. Heart size is at the upper limits of normal. There may be mild basilar atelectasis with slight blunting of left costophrenic sulcus. No pneumothorax or lobar consolidation is identified. Monitoring leads overlie the chest. IMPRESSION: Mild basilar atelectasis and/or pneumonitis with possible mild left pleural fluid and/or thickening. Dictated by: Dictated on workstation # [id number]
[2020-10-20 08:00] VITALS: BP 148/64
[2020-10-20] MEDS: GABAPENTIN 300 MG (NEURONTIN) CAP PO SCH ×4 (08:28→20:41)
[2020-10-20] MEDS: inSUlin ASPART (NovoLOG) 1 UNIT/0.01 ML (CHARGE PER UNIT) SC SCH ×3 (08:28→17:44)
[2020-10-20] MEDS: lisINopril 40 MG (PRINIVIL) TABLET PO SCH (08:28)
[2020-10-20] MEDS: ENOXAPARIN 300 MG/3 ML (LOVENOX) MULTI-DOSE VIAL SQ SCH ×2 (08:28→20:41)
[2020-10-20] MEDS: amLODIPine 5 MG (NORVASC) TAB PO SCH (08:28)
[2020-10-20] MEDS: meTOprolol TARTRATE 25 MG (LOPRESSOR) TABLET PO SCH ×2 (08:29→20:41)
[2020-10-20] MEDS ORDERED: LISI40TA PO (10:57)
[2020-10-20] MEDS ORDERED: GABA300C PO ×2 (10:57)
[2020-10-20] MEDS ORDERED: PANT40TA52 PO (10:57)
[2020-10-20] MEDS ORDERED: ATOR40TA70 PO (10:57)
[2020-10-20] MEDS ORDERED: DULA1.5P2 SC (10:57)
[2020-10-20] MEDS ORDERED: CHOL200012 PO (10:57)
[2020-10-20] MEDS ORDERED: INSU100I23 SC (10:57)
[2020-10-20] MEDS ORDERED: FURO40TA4 PO (10:57)
[2020-10-20] MEDS ORDERED: OMEG-109 PO (10:57)
--- NOTE | 2020-10-20 11:04 | NUR ---
SPOKE WITH THE PT (I CALLED HER ROOM PHONE) AND WENT THRU THE EXT MED HISTORY TO COMPLETE THE MED REC PT HAD A MED LIST WITH HER THAT SHE WENT THRU AND TOLD ME ALL HER MEDS AND HOW SHE TAKES EACH OTC MEDS: VIT D3 ASPIRIN 81MG FOLIC ACID FISH OIL MAGNESIUM TYLENOL
[2020-10-20 12:00] VITALS: BP 127/59
--- NOTE | 2020-10-20 14:02 | NUR ---
"RD ASSESSMENT PMHx: CAD; hypercholesterolemia; HTN; renal failure; DM; CA(breast); PT INTERACTION: Note pt is currently in COVID isolation, per chart review. Note all diet information for nutrition assessment is per Terri RN, or per chart review. Terri states appetite appears good. Note avg PO intake 100% x2meal, per chart review. Terri states no issues with nausea, vomiting, constipation, or diarrhea that she is aware of, and the pt's last BM was 10/18. Note pt not currently on bowel regimen per chart review. NOte recent 13# wt loss x3mon, per chart review. Note unable to determine current level of DM management, and unable to determine recent HbA1c, per chart review. ABNORMAL NUTRITION-RELATED LAB VALUES LOW: Na 134; alkphos 34; HIGH: 94-117 g Pro | 0.8-1.0 g Pro/kg Est. kcal needs: 0174-2220 kcal | 15-18 kcal/kg Est. Pro needs: 94-117 g Pro | 0.8-1.0 g Pro/kg PES STATEMENT: Given current PO intake, no nutrition diagnosis at this time (NO-1.1). INTERVENTION: Continue with current diet order of CHO 60g/m 3snack diet. Did not offer diet education on DM management, d/t isolation precautions. Will continue to follow and reassess as pt needs, intake, and status change. Jorge Luis PORTER, MS RD LD [phone] cell"
[2020-10-20 16:50] VITALS: BP 132/60
[2020-10-20 20:48] VITALS: BP 109/53
[2020-10-21] VITALS (8 sets, daily range): BP systolic 111–138; BP diastolic 56–75
[2020-10-21] MEDS: CATHETER FLUSH 10 ML SYR IV SCH ×3 (06:04→20:53)
[2020-10-21 07:17] LABS: BASOPHILS % (AUTO) 0 % (0-10); EOSINOPHILS % (AUTO) 0 % (0-10)
[2020-10-21 07:19] LABS: HEMATOCRIT 35 % (35-52); HEMOGLOBIN 10.7 g/dL (11.5-16.0); LYMPHOCYTES # (AUTO) 1.2 10^3/uL (1.0-4.0); LYMPHOCYTES % (AUTO) 17 % (12-44); MEAN CORPUSCULAR HEMOGLOBIN 27 pg (25-34); MEAN CORPUSCULAR HGB CONC 31 g/dL (32-36); MEAN CORPUSCULAR VOLUME 87 fL (80-99); MONOCYTES # (AUTO) 0.7 10^3/uL (0.0-1.0); MONOCYTES % (AUTO) 10 % (0-12); NEUTROPHILS # (AUTO) 5.4 10^3/uL (1.8-7.8); NEUTROPHILS % (AUTO) 73 % (42-75); PLATELET COUNT 237 10^3/uL (130-400); WHITE BLOOD COUNT 7.4 10^3/uL (4.3-11.0)
[2020-10-21 07:24] LABS: ALBUMIN 3.7 GM/DL (3.2-4.5); POTASSIUM 4.4 MMOL/L (3.6-5.0)
[2020-10-21 07:25] LABS: CALCIUM 9.4 MG/DL (8.5-10.1)
[2020-10-21 07:27] LABS: TOTAL PROTEIN 7.7 GM/DL (6.4-8.2)
[2020-10-21 07:28] LABS: BILIRUBIN,TOTAL 0.2 MG/DL (0.1-1.0)
[2020-10-21 07:30] LABS: CREATININE SERUM 1.66 MG/DL (0.60-1.30)
[2020-10-21] MEDS: ENOXAPARIN 300 MG/3 ML (LOVENOX) MULTI-DOSE VIAL SQ SCH ×2 (08:09→20:50)
[2020-10-21] MEDS: inSUlin ASPART (NovoLOG) 1 UNIT/0.01 ML (CHARGE PER UNIT) SC SCH ×3 (08:09→17:21)
[2020-10-21] MEDS: amLODIPine 5 MG (NORVASC) TAB PO SCH (08:09)
[2020-10-21] MEDS: lisINopril 40 MG (PRINIVIL) TABLET PO SCH (08:09)
[2020-10-21] MEDS: meTOprolol TARTRATE 25 MG (LOPRESSOR) TABLET PO SCH ×2 (08:10→20:51)
[2020-10-21] MEDS: GABAPENTIN 300 MG (NEURONTIN) CAP PO SCH ×4 (08:10→20:50)
--- NOTE | 2020-10-21 12:21 | Progress Note - Hospitalist ---
Subjective HPI/CC On Admission Date Seen by Provider: Oct 21, 2020 Time Seen by Provider: 11:00 Subjective/Events-last exam Patient doing better O2 maintained Cough improved Feels good Review of Systems General: Fatigue Pulmonary: Dyspnea Focused Exam Lactate Level 10/19/20 17:15: Lactic Acid Level 1.29 Objective Exam Vital Signs Vital Signs Date Time Temp Pulse Resp B/P (MAP) Pulse Ox O2 Delivery O2 Flow Rate FiO2 10/22/20 06:28 39.9 10/22/20 06:25 89 22 146/62 (90) 92 Nasal Cannula 4.00 Capillary Refill : Less Than 3 Seconds General Appearance: No Apparent Distress, WD/WN, Obese Respiratory: Lungs Clear Cardiovascular: Regular Rate, Rhythm Neurologic/Psychiatric: Alert, Oriented x3, No Motor/Sensory Deficits, Normal Mood/Affect Results/Procedures Lab Patient resulted labs reviewed. Assessment/Plan Assessment and Plan Assess & Plan/Chief Complaint Assessment: COVID-19 PNA Hypoxia Breast cancer hx CAD HTN HLP Plan: O2 Lovenox COVID-19 support 10/21/20: Monitor O2 Monitor BP Clinical Quality Measures DVT/VTE Risk/Contraindication: Risk Factor Score Per Nursin RFS Level Per Nursing on Admit: 3=High MADINA MCCARTY DO Oct 21, 2020 12:21
[2020-10-21] MEDS ORDERED: ACETAMINOPHEN 500 MG TAB (TYLENOL) PO PRN (21:45)
[2020-10-21] MEDS ORDERED: NON-FORMULARY MEDICATION 1 EA EA (Dulaglutide (Trulicity) 1.5 MG) SC SCH (21:45)
[2020-10-22 06:25] VITALS: BP 146/62
[2020-10-22] MEDS: ACETAMINOPHEN 500 MG TAB (TYLENOL) PO PRN (06:28)
[2020-10-22] MEDS: CATHETER FLUSH 10 ML SYR IV SCH ×3 (06:28→21:17)
[2020-10-22] MEDS ORDERED: INSULIN LISPRO 30 UNIT SC SCH (07:00)
[2020-10-22] MEDS: OMEGA 3 (FISH OIL) 1000 MG CAP PO SCH ×3 (08:38→17:56)
[2020-10-22] MEDS: FERROUS SULF 325 MG (IRON) TAB PO SCH ×3 (08:38→17:56)
[2020-10-22] MEDS: FUROSEMIDE 40 MG (LASIX) TAB PO SCH (08:39)
[2020-10-22] MEDS: ENOXAPARIN 300 MG/3 ML (LOVENOX) MULTI-DOSE VIAL SQ SCH ×2 (08:39→21:16)
[2020-10-22] MEDS: ASPIRIN E.C. 81 MG (ECOTRIN) TAB PO SCH (08:39)
[2020-10-22] MEDS: PANTOPRAZOLE 40 MG (PROTONIX) TAB PO SCH (08:40)
[2020-10-22] MEDS: GABAPENTIN 300 MG (NEURONTIN) CAP PO SCH ×4 (08:40→21:17)
[2020-10-22] MEDS: amLODIPine 5 MG (NORVASC) TAB PO SCH ×2 (08:40→12:02)
[2020-10-22] MEDS: lisINopril 40 MG (PRINIVIL) TABLET PO SCH ×2 (08:40→12:02)
[2020-10-22] MEDS: meTOprolol TARTRATE 25 MG (LOPRESSOR) TABLET PO SCH ×3 (08:40→21:17)
[2020-10-22] MEDS: inSUlin ASPART (NovoLOG) 1 UNIT/0.01 ML (CHARGE PER UNIT) SC SCH ×3 (08:48→17:57)
[2020-10-22] MEDS ORDERED: INSULIN GLARGINE HUM REC ANLOG 65 UNIT SQ SCH (09:00)
[2020-10-22] MEDS ORDERED: [UNRECOGNIZED DRUG - OTHER] SQ SCH (09:00)
[2020-10-22] MEDS ORDERED: lisINopril 40 MG (PRINIVIL) TABLET PO SCH (09:00)
[2020-10-22] MEDS ORDERED: meTOprolol TARTRATE 25 MG (LOPRESSOR) TABLET PO SCH (09:00)
[2020-10-22 12:00] VITALS: BP 118/59
--- NOTE | 2020-10-22 12:14 | Progress Note - Hospitalist ---
Subjective HPI/CC On Admission Date Seen by Provider: Oct 22, 2020 Time Seen by Provider: 12:00 CC: Dyspnea HPI: This is a 65yoWF clinic pt of Dr. Jules who has a hx of breast cancer who presented for SOB and chest pain found to have Covid at [facility] and high risk for decompensation so she was admitted for Remdesivir, Dexamethasone, Lovenox, and protocol treatment. Subjective/Events-last exam Patient doing ok O2 maintained Slow moving BM+ Home meds restarted Review of Systems General: Fatigue Pulmonary: Dyspnea, Cough Focused Exam Lactate Level Objective Exam Vital Signs Vital Signs Date Time Temp Pulse Resp B/P (MAP) Pulse Ox O2 Delivery O2 Flow Rate FiO2 10/22/20 16:12 36.1 79 18 129/59 (82) 97 Nasal Cannula 4.00 Capillary Refill : Less Than 3 Seconds General Appearance: No Apparent Distress, WD/WN, Chronically ill Respiratory: Chest Non Tender, Lungs Clear, No Accessory Muscle Use, No Respiratory Distress, Decreased Breath Sounds Cardiovascular: Regular Rate, Rhythm Neurologic/Psychiatric: Alert, Oriented x3, No Motor/Sensory Deficits, Normal Mood/Affect Results/Procedures Lab Patient resulted labs reviewed. Assessment/Plan Assessment and Plan Assess & Plan/Chief Complaint Assessment: COVID-19 PNA Hypoxia Breast cancer hx CAD HTN HLP Plan: O2 Lovenox COVID-19 support 10/21/20: Monitor O2 Monitor BP 10/22/20: Monitor low BP Diagnosis/Problems Diagnosis/Problems (1) COVID-19 Status: Acute (2) Hypoxia Status: Acute (3) Breast cancer Status: Acute (4) HTN (hypertension) (5) CAD (coronary artery disease) (6) Diabetes mellitus Clinical Quality Measures DVT/VTE Risk/Contraindication: Risk Factor Score Per Nursin RFS Level Per Nursing on Admit: 3=High MADINA MCCARTY DO Oct 22, 2020 12:14
[2020-10-22] MEDS ORDERED: NON-FORMULARY MEDICATION 1 EA EA (Folic Acid 0.8 MG) PO SCH (14:00)
[2020-10-22] MEDS: VITAMIN D3 10 MCG (400 UNITS) TABLET PO SCH (14:33)
[2020-10-22 16:12] VITALS: BP 129/59
[2020-10-22 20:12] VITALS: BP 124/59
[2020-10-22] MEDS ORDERED: LETROZOLE 2.5 MG (FEMARA) TAB PO SCH (21:00)
[2020-10-22] MEDS ORDERED: amLODIPine 5 MG (NORVASC) TAB PO SCH (21:00)
[2020-10-22] MEDS: FENOFIBRATE 134 MG (LOFIBRA) CAPSULE PO SCH (21:17)
[2020-10-23] VITALS (7 sets, daily range): BP systolic 109–136; BP diastolic 52–78
[2020-10-23 05:58] LABS: BASOPHILS % (AUTO) 0 % (0-10); EOSINOPHILS % (AUTO) 0 % (0-10); HEMATOCRIT 34 % (35-52); HEMOGLOBIN 10.6 g/dL (11.5-16.0); LYMPHOCYTES # (AUTO) 0.8 10^3/uL (1.0-4.0); LYMPHOCYTES % (AUTO) 15 % (12-44); MEAN CORPUSCULAR HEMOGLOBIN 27 pg (25-34); MEAN CORPUSCULAR HGB CONC 31 g/dL (32-36); MEAN CORPUSCULAR VOLUME 86 fL (80-99); MEAN PLATELET VOLUME 12.4 fL (9.0-12.2); MONOCYTES # (AUTO) 0.5 10^3/uL (0.0-1.0); MONOCYTES % (AUTO) 10 % (0-12); NEUTROPHILS # (AUTO) 3.9 10^3/uL (1.8-7.8); NEUTROPHILS % (AUTO) 74 % (42-75); PLATELET COUNT 204 10^3/uL (130-400); WHITE BLOOD COUNT 5.3 10^3/uL (4.3-11.0)
[2020-10-23] MEDS: CATHETER FLUSH 10 ML SYR IV SCH ×3 (06:09→20:57)
[2020-10-23 06:10] LABS: ALBUMIN 3.6 GM/DL (3.2-4.5); POTASSIUM 4.5 MMOL/L (3.6-5.0)
[2020-10-23 06:12] LABS: CALCIUM 9.1 MG/DL (8.5-10.1)
[2020-10-23 06:13] LABS: TOTAL PROTEIN 7.7 GM/DL (6.4-8.2)
[2020-10-23] MEDS: ACETAMINOPHEN 500 MG TAB (TYLENOL) PO PRN ×2 (06:13→20:04)
[2020-10-23 06:15] LABS: BILIRUBIN,TOTAL 0.2 MG/DL (0.1-1.0)
[2020-10-23 06:16] LABS: CREATININE SERUM 1.47 MG/DL (0.60-1.30)
--- NOTE | 2020-10-23 07:25 | Progress Note - Hospitalist ---
Subjective HPI/CC On Admission Date Seen by Provider: Oct 23, 2020 Time Seen by Provider: 11:00 CC: Dyspnea HPI: This is a 65yoWF clinic pt of Dr. Jules who has a hx of breast cancer who presented for SOB and chest pain found to have Covid at [facility] and high risk for decompensation so she was admitted for Remdesivir, Dexamethasone, Lovenox, and protocol treatment. Subjective/Events-last exam Sugar and BP down so adjuted meds Patient still dyspneic and lethargic Monitor closely Review of Systems General: Fatigue, Malaise Pulmonary: Dyspnea Objective Exam Vital Signs Vital Signs Date Time Temp Pulse Resp B/P (MAP) Pulse Ox O2 Delivery O2 Flow Rate FiO2 10/24/20 05:43 36.0 65 20 108/51 (70) 94 Nasal Cannula 4.00 Capillary Refill : Less Than 3 Seconds General Appearance: No Apparent Distress, WD/WN, Chronically ill Respiratory: Chest Non Tender, Lungs Clear, No Accessory Muscle Use, No Respiratory Distress, Decreased Breath Sounds Cardiovascular: Regular Rate, Rhythm, No Edema, No Gallop, No JVD, No Murmur, Normal Peripheral Pulses Neurologic/Psychiatric: Alert, Oriented x3, No Motor/Sensory Deficits, Normal Mood/Affect Results/Procedures Lab Laboratory Tests 10/24/20 07:00 Patient resulted labs reviewed. Assessment/Plan Assessment and Plan Assess & Plan/Chief Complaint Assessment: COVID-19 PNA Hypoxia Breast cancer hx CAD HTN HLP Plan: O2 Lovenox COVID-19 support 10/21/20: Monitor O2 Monitor BP 10/22/20: Monitor low BP 10/23/20: Monitor BP and BS Adjust meds down Diagnosis/Problems Diagnosis/Problems (1) COVID-19 Status: Acute (2) Hypoxia Status: Acute (3) Breast cancer Status: Acute (4) HTN (hypertension) (5) CAD (coronary artery disease) (6) Diabetes mellitus Clinical Quality Measures DVT/VTE Risk/Contraindication: Risk Factor Score Per Nursin RFS Level Per Nursing on Admit: 3=High MADINA MCCARTY DO Oct 23, 2020 07:25
[2020-10-23] MEDS: ENOXAPARIN 300 MG/3 ML (LOVENOX) MULTI-DOSE VIAL SQ SCH ×2 (09:27→20:56)
[2020-10-23] MEDS: ASPIRIN E.C. 81 MG (ECOTRIN) TAB PO SCH (09:28)
[2020-10-23] MEDS: FERROUS SULF 325 MG (IRON) TAB PO SCH ×3 (09:28→17:29)
[2020-10-23] MEDS: inSUlin ASPART (NovoLOG) 1 UNIT/0.01 ML (CHARGE PER UNIT) SC SCH ×3 (09:28→17:29)
[2020-10-23] MEDS: OMEGA 3 (FISH OIL) 1000 MG CAP PO SCH ×3 (09:29→17:29)
[2020-10-23] MEDS: meTOprolol TARTRATE 25 MG (LOPRESSOR) TABLET PO SCH ×2 (09:29→20:56)
[2020-10-23] MEDS: amLODIPine 5 MG (NORVASC) TAB PO SCH (09:29)
[2020-10-23] MEDS: lisINopril 40 MG (PRINIVIL) TABLET PO SCH (09:29)
[2020-10-23] MEDS: FUROSEMIDE 40 MG (LASIX) TAB PO SCH (09:29)
[2020-10-23] MEDS: PANTOPRAZOLE 40 MG (PROTONIX) TAB PO SCH (09:29)
[2020-10-23] MEDS: GABAPENTIN 300 MG (NEURONTIN) CAP PO SCH ×3 (09:36→20:56)
--- NOTE | 2020-10-23 10:20 | NUR ---
Order from Dr Law this am to give 1/2 dose of reg insulin r/t bld sugar of 98 this am.
[2020-10-23] MEDS: FOLIC ACID 1 MG TAB PO SCH (14:11)
[2020-10-23] MEDS: VITAMIN D3 10 MCG (400 UNITS) TABLET PO SCH (14:12)
[2020-10-23] MEDS: FENOFIBRATE 134 MG (LOFIBRA) CAPSULE PO SCH (20:56)
[2020-10-24 00:28] VITALS: BP 114/53
[2020-10-24 04:00] VITALS: BP 114/53
[2020-10-24 05:43] VITALS: BP 108/51
[2020-10-24] MEDS: GABAPENTIN 300 MG (NEURONTIN) CAP PO SCH ×3 (05:58→20:12)
[2020-10-24] MEDS: CATHETER FLUSH 10 ML SYR IV SCH ×3 (05:58→20:13)
[2020-10-24] MEDS: dexAMETHasone 6 MG TAB (DECADRON) PO SCH (05:58)
[2020-10-24 07:04] LABS: BASOPHILS % (AUTO) 0 % (0-10); EOSINOPHILS % (AUTO) 0 % (0-10); HEMATOCRIT 35 % (35-52); HEMOGLOBIN 10.6 g/dL (11.5-16.0); LYMPHOCYTES # (AUTO) 0.7 10^3/uL (1.0-4.0); LYMPHOCYTES % (AUTO) 16 % (12-44); MEAN CORPUSCULAR HEMOGLOBIN 26 pg (25-34); MEAN CORPUSCULAR HGB CONC 30 g/dL (32-36); MEAN CORPUSCULAR VOLUME 87 fL (80-99); MEAN PLATELET VOLUME 12.3 fL (9.0-12.2); MONOCYTES # (AUTO) 0.4 10^3/uL (0.0-1.0); MONOCYTES % (AUTO) 9 % (0-12); NEUTROPHILS # (AUTO) 3.3 10^3/uL (1.8-7.8); NEUTROPHILS % (AUTO) 74 % (42-75); PLATELET COUNT 201 10^3/uL (130-400); WHITE BLOOD COUNT 4.5 10^3/uL (4.3-11.0)
[2020-10-24 07:13] LABS: ALBUMIN 3.5 GM/DL (3.2-4.5); POTASSIUM 5.1 MMOL/L (3.6-5.0)
[2020-10-24 07:14] LABS: CALCIUM 8.9 MG/DL (8.5-10.1)
[2020-10-24 07:16] LABS: TOTAL PROTEIN 7.5 GM/DL (6.4-8.2)
[2020-10-24 07:18] LABS: BILIRUBIN,TOTAL 0.2 MG/DL (0.1-1.0)
[2020-10-24 07:19] LABS: CREATININE SERUM 1.71 MG/DL (0.60-1.30)
[2020-10-24 07:30] VITALS: BP 120/60
[2020-10-24] MEDS ORDERED: lisINopril 20 MG (PRINIVIL) TABLET PO SCH (09:00)
[2020-10-24] MEDS: ENOXAPARIN 300 MG/3 ML (LOVENOX) MULTI-DOSE VIAL SQ SCH ×2 (09:36→20:12)
[2020-10-24] MEDS: OMEGA 3 (FISH OIL) 1000 MG CAP PO SCH ×3 (09:36→18:24)
[2020-10-24] MEDS: meTOprolol TARTRATE 25 MG (LOPRESSOR) TABLET PO SCH ×2 (09:37→20:12)
[2020-10-24] MEDS: PANTOPRAZOLE 40 MG (PROTONIX) TAB PO SCH (09:37)
[2020-10-24] MEDS: FERROUS SULF 325 MG (IRON) TAB PO SCH ×3 (09:37→18:24)
[2020-10-24] MEDS: ASPIRIN E.C. 81 MG (ECOTRIN) TAB PO SCH (09:37)
[2020-10-24] MEDS: FUROSEMIDE 40 MG (LASIX) TAB PO SCH (09:37)
[2020-10-24] MEDS: inSUlin ASPART (NovoLOG) 1 UNIT/0.01 ML (CHARGE PER UNIT) SC SCH ×3 (09:42→18:24)
[2020-10-24 11:41] VITALS: BP 131/63
--- NOTE | 2020-10-24 12:34 | Progress Note - Hospitalist ---
Subjective HPI/CC On Admission Date Seen by Provider: Oct 24, 2020 Time Seen by Provider: 11:30 CC: Dyspnea HPI: This is a 65yoWF clinic pt of Dr. Jules who has a hx of breast cancer who presented for SOB and chest pain found to have Covid at [facility] and high risk for decompensation so she was admitted for Remdesivir, Dexamethasone, Lovenox, and protocol treatment. Subjective/Events-last exam No major issues have arisen O2 at 4L/min No pain reported Sugars and BP improved since decreased meds Holding ACEi due to mild elevation in potassium Review of Systems General: Fatigue, Malaise Pulmonary: Dyspnea, Cough Objective Exam Vital Signs Vital Signs Date Time Temp Pulse Resp B/P (MAP) Pulse Ox O2 Delivery O2 Flow Rate FiO2 10/24/20 15:58 36.7 71 20 116/51 (72) 92 Nasal Cannula 4.00 Capillary Refill : Less Than 3 Seconds General Appearance: No Apparent Distress, WD/WN, Chronically ill, Obese Respiratory: Chest Non Tender, Lungs Clear, Normal Breath Sounds, No Accessory Muscle Use, No Respiratory Distress Cardiovascular: Regular Rate, Rhythm, No Edema, No Gallop, No JVD, No Murmur, Normal Peripheral Pulses Neurologic/Psychiatric: Alert, Oriented x3, No Motor/Sensory Deficits, Normal Mood/Affect Results/Procedures Lab Laboratory Tests 10/24/20 07:00 Patient resulted labs reviewed. Assessment/Plan Assessment and Plan Assess & Plan/Chief Complaint Assessment: COVID-19 PNA Hypoxia Breast cancer hx CAD HTN HLP Plan: O2 Lovenox COVID-19 support 10/21/20: Monitor O2 Monitor BP 10/22/20: Monitor low BP 10/23/20: Monitor BP and BS Adjust meds down 10/24/20: Monitor sugar and BP Monitor for increased O2 requirements Diagnosis/Problems Diagnosis/Problems (1) COVID-19 Status: Acute (2) Hypoxia Status: Acute (3) Breast cancer Status: Acute (4) HTN (hypertension) (5) CAD (coronary artery disease) (6) Diabetes mellitus Clinical Quality Measures DVT/VTE Risk/Contraindication: Risk Factor Score Per Nursin RFS Level Per Nursing on Admit: 3=High MADINA MCCARTY DO Oct 24, 2020 12:34
[2020-10-24] MEDS: FOLIC ACID 1 MG TAB PO SCH (14:50)
[2020-10-24] MEDS: VITAMIN D3 10 MCG (400 UNITS) TABLET PO SCH (14:53)
[2020-10-24 15:58] VITALS: BP 116/51
[2020-10-24] MEDS: FENOFIBRATE 134 MG (LOFIBRA) CAPSULE PO SCH (20:12)
[2020-10-25 00:04] VITALS: BP 105/59
[2020-10-25] MEDS: GABAPENTIN 300 MG (NEURONTIN) CAP PO SCH ×3 (06:01→21:26)
[2020-10-25] MEDS: dexAMETHasone 6 MG TAB (DECADRON) PO SCH (06:01)
[2020-10-25] MEDS: CATHETER FLUSH 10 ML SYR IV SCH ×3 (06:01→21:34)
[2020-10-25 07:35] LABS: LYMPHOCYTES % (AUTO) 20 % (12-44); MEAN CORPUSCULAR HGB CONC 31 g/dL (32-36); MONOCYTES # (AUTO) 0.5 10^3/uL (0.0-1.0); MONOCYTES % (AUTO) 9 % (0-12)
[2020-10-25 07:36] LABS: BASOPHILS % (AUTO) 0 % (0-10); EOSINOPHILS % (AUTO) 0 % (0-10); HEMATOCRIT 35 % (35-52); HEMOGLOBIN 10.7 g/dL (11.5-16.0); LYMPHOCYTES # (AUTO) 1.1 10^3/uL (1.0-4.0); MEAN CORPUSCULAR HEMOGLOBIN 27 pg (25-34); MEAN CORPUSCULAR VOLUME 86 fL (80-99); NEUTROPHILS # (AUTO) 3.8 10^3/uL (1.8-7.8); NEUTROPHILS % (AUTO) 70 % (42-75); PLATELET COUNT 227 10^3/uL (130-400); WHITE BLOOD COUNT 5.4 10^3/uL (4.3-11.0)
[2020-10-25 07:46] LABS: ALBUMIN 3.6 GM/DL (3.2-4.5); POTASSIUM 4.8 MMOL/L (3.6-5.0)
[2020-10-25 07:48] VITALS: BP 118/58
[2020-10-25 07:49] LABS: TOTAL PROTEIN 7.7 GM/DL (6.4-8.2)
[2020-10-25 07:51] LABS: BILIRUBIN,TOTAL 0.2 MG/DL (0.1-1.0)
[2020-10-25 07:53] LABS: CREATININE SERUM 1.91 MG/DL (0.60-1.30)
[2020-10-25] MEDS: OMEGA 3 (FISH OIL) 1000 MG CAP PO SCH ×3 (08:20→17:11)
[2020-10-25] MEDS: PANTOPRAZOLE 40 MG (PROTONIX) TAB PO SCH (08:20)
[2020-10-25] MEDS: FERROUS SULF 325 MG (IRON) TAB PO SCH ×3 (08:20→17:11)
[2020-10-25] MEDS: FUROSEMIDE 40 MG (LASIX) TAB PO SCH (08:20)
[2020-10-25] MEDS: meTOprolol TARTRATE 25 MG (LOPRESSOR) TABLET PO SCH ×2 (08:21→21:26)
[2020-10-25] MEDS: ASPIRIN E.C. 81 MG (ECOTRIN) TAB PO SCH (08:21)
[2020-10-25] MEDS: ENOXAPARIN 300 MG/3 ML (LOVENOX) MULTI-DOSE VIAL SQ SCH ×2 (08:21→21:27)
[2020-10-25] MEDS: inSUlin ASPART (NovoLOG) 1 UNIT/0.01 ML (CHARGE PER UNIT) SC SCH ×3 (08:21→17:11)
[2020-10-25] MEDS: VITAMIN D3 10 MCG (400 UNITS) TABLET PO SCH (14:10)
[2020-10-25] MEDS: FOLIC ACID 1 MG TAB PO SCH (14:10)
--- NOTE | 2020-10-25 15:26 | Progress Note ---
Subjective Subjective/Events-last exam Afebrile, feeling a little worse than yesterday. She is requiring up to 5 lpm supplemental oxygen, but is sitting up in chair and appears relatively comfortable. Objective Exam Last Set of Vital Signs Vital Signs Date Time Temp Pulse Resp B/P (MAP) Pulse Ox O2 Delivery O2 Flow Rate FiO2 10/25/20 08:00 92 Nasal Cannula 5.00 10/25/20 07:48 37.3 85 20 118/58 (78) Capillary Refill : Less Than 3 Seconds I&O Intake and Output 10/25/20 00:00 Intake Total 2460 ml Output Total 1500 ml Balance 960 ml Intake Oral 2460 ml Output Urine Total 1500 ml # Voids 4 # Bowel Movements 2 General: Alert, No Acute Distress Lungs: Other (decreased air movement bilaterally) Heart: Regular Rate, No Murmurs Extremities: No Edema Neuro: Normal Speech Psych/Mental Status: Mental Status NL Results/Procedures Lab Laboratory Tests 10/24/20 15:56: Glucometer 280H 10/24/20 19:56: Glucometer 253H 10/25/20 04:43: Glucometer 164H 10/25/20 06:39: White Blood Count 5.4, Red Blood Count 4.02, Hemoglobin 10.7L, Hematocrit 35, Mean Corpuscular Volume 86, Mean Corpuscular Hemoglobin 27, Mean Corpuscular Hemoglobin Concent 31L, Red Cell Distribution Width 15.8H, Platelet Count 227, Mean Platelet Volume 13.0H, Immature Granulocyte % (Auto) 1, Neutrophils (%) (Auto) 70, Lymphocytes (%) (Auto) 20, Monocytes (%) (Auto) 9, Eosinophils (%) (Auto) 0, Basophils (%) (Auto) 0, Neutrophils # (Auto) 3.8, Lymphocytes # (Auto) 1.1, Monocytes # (Auto) 0.5, Eosinophils # (Auto) 0.0, Basophils # (Auto) 0.0, Immature Granulocyte # (Auto) 0.0, Sodium Level 138, Potassium Level 4.8, Chloride Level 103, Carbon Dioxide Level 24, Anion Gap 11, Blood Urea Nitrogen 76H, Creatinine 1.91H, Estimat Glomerular Filtration Rate 26, BUN/Creatinine Ratio 40, Glucose Level 135H, Calcium Level 9.0, Corrected Calcium 9.3, Total Bi lirubin 0.2, Aspartate Amino Transf (AST/SGOT) 55H, Alanine Aminotransferase (ALT/SGPT) 32, Alkaline Phosphatase 29L, Total Protein 7.7, Albumin 3.6 10/25/20 10:29: Glucometer 169H Microbiology 10/19/20 Blood Culture - Preliminary, Resulted No growth 10/19/20 Urine Culture - Final, Complete Staphylococcus aureus Gram Pos Mixed Bacterial Stephanie 10/19/20 Influenza Types A,B Antigen (MARLENE) - Final, Complete Assessment/Plan Assessment/Plan (1) COVID-19 Status: Acute Assessment & Plan: On dexamethasone day 7. Discussed limited benefits of remdesevir and convalescent plasma, is now at day 9 of symptoms so would not use remdesevir, convalescent plasma not yet ordered, but of note there is delay in getting it at this point, will go ahead and order. (2) Pneumonia Status: Acute Assessment & Plan: Due to COVID19, requiring 4 or more lpm supplemental oxygen, not on supplemental oxygen at baseline. (3) Diabetes mellitus Status: Chronic Assessment & Plan: Currently on detemir 25 BID and novolog 20 units TID. Glucose 200s yesterday but below 200 today. Continue home gabapentin. Qualifiers: Qualified Codes: E11.42 - Type 2 diabetes mellitus with diabetic polyneuropathy; Z79.4 - long-term (current) use of insulin (4) CAD (coronary artery disease) Status: Chronic Assessment & Plan: Continue home aspirin. Qualifiers: Qualified Codes: I25.10 - Atherosclerotic heart disease of [place] coronary artery without angina pectoris (5) Breast cancer Status: Chronic Permanent Comment: Left mastectomy done in 2014 Last Edited By: Lauryn Chandra on Oct 25, 2020 15:38 Assessment & Plan: Continue home letrozole. Qualifiers: (6) CKD (chronic kidney disease) Status: Chronic Assessment & Plan: Stable, continue to monitor (7) Hyperlipidemia Status: Chronic Assessment & Plan: Continue home statin (8) HTN (hypertension) Status: Chronic Assessment & Plan: Continued home medications, but lisinopril currently held for hyperkalemia. Qualifiers: Qualified Codes: I10 - Essential (primary) hypertension (9) Obesity (BMI 30-39.9) Status: Chronic Assessment & Plan: No acute management issues, but contributes to risk from COVID19 (10) DVT prophylaxis Status: Acute Assessment & Plan: On treatment dose enoxaparin currently. Clinical Quality Measures DVT/VTE Risk/Contraindication: Risk Factor Score Per Nursin RFS Level Per Nursing on Admit: 3=High LAURYN CHANDRA MD Oct 25, 2020 15:25
[2020-10-25 16:27] VITALS: BP 105/52
[2020-10-25] MEDS: FENOFIBRATE 134 MG (LOFIBRA) CAPSULE PO SCH (21:26)
[2020-10-26] VITALS: BP 127/61
[2020-10-26 05:51] LABS: BASOPHILS % (AUTO) 0 % (0-10); EOSINOPHILS % (AUTO) 0 % (0-10); HEMATOCRIT 35 % (35-52); HEMOGLOBIN 10.7 g/dL (11.5-16.0); LYMPHOCYTES # (AUTO) 0.8 10^3/uL (1.0-4.0); LYMPHOCYTES % (AUTO) 18 % (12-44); MEAN CORPUSCULAR HEMOGLOBIN 26 pg (25-34); MEAN CORPUSCULAR HGB CONC 31 g/dL (32-36); MEAN CORPUSCULAR VOLUME 86 fL (80-99); MEAN PLATELET VOLUME 12.5 fL (9.0-12.2); MONOCYTES # (AUTO) 0.5 10^3/uL (0.0-1.0); MONOCYTES % (AUTO) 12 % (0-12); NEUTROPHILS # (AUTO) 3.2 10^3/uL (1.8-7.8); NEUTROPHILS % (AUTO) 69 % (42-75); PLATELET COUNT 258 10^3/uL (130-400); WHITE BLOOD COUNT 4.6 10^3/uL (4.3-11.0)
[2020-10-26 06:08] LABS: ALBUMIN 3.5 GM/DL (3.2-4.5)
[2020-10-26 06:09] LABS: POTASSIUM 4.8 MMOL/L (3.6-5.0)
[2020-10-26 06:11] LABS: TOTAL PROTEIN 7.8 GM/DL (6.4-8.2)
[2020-10-26 06:13] LABS: BILIRUBIN,TOTAL 0.2 MG/DL (0.1-1.0)
[2020-10-26 06:14] LABS: CREATININE SERUM 1.68 MG/DL (0.60-1.30)
[2020-10-26] MEDS: GABAPENTIN 300 MG (NEURONTIN) CAP PO SCH ×3 (06:17→20:50)
[2020-10-26] MEDS: dexAMETHasone 6 MG TAB (DECADRON) PO SCH (06:17)
[2020-10-26] MEDS: CATHETER FLUSH 10 ML SYR IV SCH ×3 (06:18→20:51)
[2020-10-26 08:00] VITALS: BP 140/63
[2020-10-26] MEDS: meTOprolol TARTRATE 25 MG (LOPRESSOR) TABLET PO SCH ×2 (08:31→20:50)
[2020-10-26] MEDS: PANTOPRAZOLE 40 MG (PROTONIX) TAB PO SCH (08:31)
[2020-10-26] MEDS: FUROSEMIDE 40 MG (LASIX) TAB PO SCH (08:32)
[2020-10-26] MEDS: FERROUS SULF 325 MG (IRON) TAB PO SCH ×3 (08:32→17:33)
[2020-10-26] MEDS: inSUlin ASPART (NovoLOG) 1 UNIT/0.01 ML (CHARGE PER UNIT) SC SCH ×3 (08:32→17:33)
[2020-10-26] MEDS: ASPIRIN E.C. 81 MG (ECOTRIN) TAB PO SCH (08:32)
[2020-10-26] MEDS: OMEGA 3 (FISH OIL) 1000 MG CAP PO SCH ×3 (08:32→17:33)
[2020-10-26] MEDS: ENOXAPARIN 300 MG/3 ML (LOVENOX) MULTI-DOSE VIAL SQ SCH ×2 (08:33→20:50)
--- NOTE | 2020-10-26 12:13 | Progress Note ---
Subjective Subjective/Events-last exam Afebrile, feeling similar to yesterday but is now requiring 12 lpm supplemental oxygen via high flow nasal cannula. She doesn't like to use incentive spirometry because it makes her cough and she states she cannot lay prone due to her abdomen. She is able to speak easily in full sentences and is sitting up in c hair at time of my exam. Objective Exam Last Set of Vital Signs Vital Signs Date Time Temp Pulse Resp B/P (MAP) Pulse Ox O2 Delivery O2 Flow Rate FiO2 10/26/20 08:00 36.5 72 16 140/63 (88) 81 Nasal Cannula 5.00 Capillary Refill : Less Than 3 Seconds I&O Intake and Output 10/26/20 00:00 Intake Total 1700 ml Output Total 200 ml Balance 1500 ml Intake Oral 1700 ml Output Urine Total 200 ml # Voids 4 General: Alert, No Acute Distress Lungs: Other (decreased air movement throughout) Heart: Regular Rate Extremities: Other (1+ edema bilaterally to mid-calf) Neuro: Normal Speech Psych/Mental Status: Mood NL Results/Procedures Lab Laboratory Tests 10/25/20 16:29: Glucometer 197H 10/25/20 20:42: Glucometer 238H 10/26/20 05:37: White Blood Count 4.6, Red Blood Count 4.06, Hemoglobin 10.7L, Hematocrit 35, Mean Corpuscular Volume 86, Mean Corpuscular Hemoglobin 26, Mean Corpuscular Hemoglobin Concent 31L, Red Cell Distribution Width 15.9H, Platelet Count 258, Mean Platelet Volume 12.5H, Immature Granulocyte % (Auto) 1, Neutrophils (%) (Auto) 69, Lymphocytes (%) (Auto) 18, Monocytes (%) (Auto) 12, Eosinophils (%) (Auto) 0, Basophils (%) (Auto) 0, Neutrophils # (Auto) 3.2, Lymphocytes # (Auto) 0.8L, Monocytes # (Auto) 0.5, Eosinophils # (Auto) 0.0, Basophils # (Auto) 0.0, Immature Granulocyte # (Auto) 0.0, Sodium Level 137, Potassium Level 4.8, Chloride Level 106, Carbon Dioxide Level 21, Anion Gap 10, Blood Urea Nitrogen 84H, Creatinine 1.68H, Estimat Glomerular Filtration Rate 30, BUN/Creatinine Ratio 50, Glucose Level 174H, Calcium Level 9.0, Corrected Calcium 9.4, Total Bilirubin 0.2, Aspartate Amino Transf (AST/SGOT) 43H, Alanine Aminotransferase (ALT/SGPT) 27, Alkaline Phosphatase 30L, Total Protein 7.8, Albumin 3.5 10/26/20 05:40: Glucometer 174H 10/26/20 11:33: Glucometer 212H Microbiology 10/19/20 Blood Culture - Final, Complete No growth 10/19/20 Urine Culture - Final, Complete Staphylococcus aureus Gram Pos Mixed Bacterial Stephanie 10/19/20 Influenza Types A,B Antigen (MARLENE) - Final, Complete Assessment/Plan Assessment/Plan (1) COVID-19 Status: Acute Assessment & Plan: On dexamethasone day 7. Discussed limited benefits of remdesevir and convalescent plasma, is now at day 9 of symptoms so would not use remdesevir, convalescent plasma not yet ordered, but of note there is delay in getting it at this point, will go ahead and order. 10/26/20- worsening hypoxia but not having increased work of breathing, discussed use of IS and attempting to lie prone but she does not feel she can. Dexametha sone day 8, waiting on convalescent plasma. (2) Hypoxia Status: Acute Assessment & Plan: 10/26/20 worsening- Due to COVID19 pneumonia, but may also have some pulmonary edema component. Is not receiving IV fluid, but is drinking a lot of soda. Will check BNP. Is on home furosemide, if BNP elevated, will give extra furosemide today. (3) Pneumonia Status: Acute Assessment & Plan: Due to COVID19, requiring 12 lpm supplemental oxygen, not on supplemental oxygen at baseline. (4) Diabetes mellitus Status: Chronic Assessment & Plan: Currently on detemir 25 BID and novolog 20 units TID. Glucose 200s yesterday but below 200 today. Continue home gabapentin. 10/26/20- glucose last 24 hours 169-238 with downward trend. Qualifiers: Qualified Codes: E11.42 - Type 2 diabetes mellitus with diabetic polyneuropathy; Z79.4 - custodial (current) use of insulin (5) CAD (coronary artery disease) Status: Chronic Assessment & Plan: Continue home aspirin. Qualifiers: Qualified Codes: I25.10 - Atherosclerotic heart disease of [place] coronary artery without angina pectoris (6) Breast cancer Status: Chronic Permanent Comment: Left mastectomy done in 2014 Last Edited By: Lauryn fox on Oct 25, 2020 15:38 Assessment & Plan: Continue home letrozole. Qualifiers: (7) CKD (chronic kidney disease) Status: Chronic Assessment & Plan: Stable, continue to monitor (8) Hyperlipidemia Status: Chronic Assessment & Plan: Continue home statin (9) HTN (hypertension) Status: Chronic Assessment & Plan: Continued home medications, but lisinopril currently held for hyperkalemia. Qualifiers: Qualified Codes: I10 - Essential (primary) hypertension (10) Obesity (BMI 30-39.9) Status: Chronic Assessment & Plan: No acute management issues, but contributes to risk from COVID19 (11) DVT prophylaxis Status: Acute Assessment & Plan: On treatment dose enoxaparin currently. Clinical Quality Measures DVT/VTE Risk/Contraindication: Risk Factor Score Per Nursin RFS Level Per Nursing on Admit: 3=High LAURYN LICONA MD Oct 26, 2020 12:13
[2020-10-26] MEDS: FOLIC ACID 1 MG TAB PO SCH (13:46)
[2020-10-26] MEDS: VITAMIN D3 10 MCG (400 UNITS) TABLET PO SCH (13:46)
--- NOTE | 2020-10-26 14:29 | Physician Query Clarification ---
"Physician Query-General Query to Physician: The medical record reflects the following clinical scenario: History/Risk factors: COVID 19, PNA Clinical Findings: Requiring 4-5L 02 from admission to keep sats >90, Short of Air at rest with Accessory Muscle use from Admission, Sats down to 81 on % 1/5 now requiring 12L Treatment: Supplemental 02 up to 12L, IV Dexamethasone, Question: What condition best reflects the above clinical scenario? Please document response in the Progress notes or Discharge Summary. 1. Acute Hypoxic Respiratory Failure Present on Admission 2. Hypoxia (as currently documented) 3. Other , with explanation of the clinical findings 4. Clinically undetermined, no explanation for the clinical findings Please remember a lack of response to the above will prompt a phone page by CDI/coding staff In responding to this query, please exercise your independent professional judgment. The purpose of this communication is to more accurately reflect the complexity of your patients condition. The fact that a question is asked does not imply that any particular answer is desired or expected. Thank you for timely response to this clarification. Madalyn Eden, MSN, RN RN Specialist-Clinical Doc Improvement CD -Health Info Mgmt Operations [address] [facility], [place] t: [phone] | f: [phone] If you are unable to reach me at my extension, I may be working from home. Please contact me at [phone] PHYSICIAN RESPONSE: Based on the clinical findings in the record, please respond to the query above on this document as an addendum. Physician Response: Physician Response 1 If you have questions please contact: Cook Larder: Ext: Thank you for your time and cooperation. Clinical [employer]ra[employer] Finisher Helper/Cook Larder This is a permanent part of the medical record MADALYN EDEN Oct 26, 2020 14:29 LAURYN LICONA MD Oct 26, 2020 19:33"
[2020-10-26 15:34] VITALS: BP 155/70
[2020-10-26] MEDS: FENOFIBRATE 134 MG (LOFIBRA) CAPSULE PO SCH (20:50)
[2020-10-26 23:59] VITALS: BP 119/59
--- NOTE | 2020-10-27 00:20 | NUR ---
Dr. Chandra notified of O2 sats at 87% maxed out on vapotherm. New order rec to place pt on BiPap.
[2020-10-27 00:56] LABS: ABG BASE EXCESS 0.6 MMOL/L (-2.5-2.5); ABG OXYGEN SATURATION 94 % (94-100); ABG PCO2 41 MMHG (35-45); ABG PO2 76 MMHG (79-93); ABG TCO2 26.1 MMOL/L (21.0-31.0)
[2020-10-27 00:57] LABS: ALLENS TEST POSITIVE; INSPIRED O2 70; PATIENT TEMP 36.8; VENTILATOR NO
[2020-10-27] MEDS: CATHETER FLUSH 10 ML SYR IV SCH ×3 (05:18→20:39)
[2020-10-27] MEDS: GABAPENTIN 300 MG (NEURONTIN) CAP PO SCH ×3 (05:18→20:39)
[2020-10-27] MEDS: dexAMETHasone 6 MG TAB (DECADRON) PO SCH (05:18)
[2020-10-27 05:49] LABS: POTASSIUM 4.6 MMOL/L (3.6-5.0)
[2020-10-27 05:50] LABS: CALCIUM 9.3 MG/DL (8.5-10.1)
[2020-10-27 05:54] LABS: CREATININE SERUM 1.58 MG/DL (0.60-1.30)
[2020-10-27 08:00] VITALS: BP 136/78
--- NOTE | 2020-10-27 08:10 | Progress Note ---
Subjective Subjective/Events-last exam Persistent worsening respiratory status yesterday led to use of vapotherm at 100% FiO2 which she was doing quite well on and able to ambulate and move more easily, but overnight she had desaturation to the 80s. RT suspected obstructive apnea contributing. We started bipap and f/u ABG was good, she did well on bipap overnight and is back on vapotherm this am. Objective Exam Last Set of Vital Signs Vital Signs Date Time Temp Pulse Resp B/P (MAP) Pulse Ox O2 Delivery O2 Flow Rate FiO2 10/27/20 07:24 91 Vapotherm 40.00 100 10/27/20 04:20 71 10/27/20 00:20 20 10/26/20 23:59 36.8 119/59 (79) Capillary Refill : Less Than 3 Seconds I&O Intake and Output 10/27/20 00:00 Intake Total 2270 ml Output Total 3000 ml Balance -730 ml Intake Oral 2270 ml Output Urine Total 3000 ml # Bowel Movements 1 General: Alert, No Acute Distress Lungs: Other (decreased air movement) Heart: Regular Rate Neuro: Normal Speech Psych/Mental Status: Mood NL Results/Procedures Lab Laboratory Tests 10/26/20 11:33: Glucometer 212H 10/26/20 15:33: Glucometer 276H 10/26/20 19:50: Glucometer 241H 10/27/20 00:45: Blood Gas Puncture Site RIGHT RADIAL, Blood Gas Patient Temperature 36.8, Arterial Blood pH 7.40, Arterial Blood Partial Pressure CO2 41, Arterial Blood Partial Pressure O2 76L, Arterial Blood HCO3 25, Arterial Blood Total CO2 26.1, Arterial Blood Oxygen Saturation 94, Arterial Blood Base Excess 0.6, Melchor Test POSITIVE, Blood Gas Ventilator Setting NO, Blood Gas Inspired Oxygen 70 10/27/20 05:12: Sodium Level 138, Potassium Level 4.6, Chloride Level 101, Carbon Dioxide Level 25, Anion Gap 12, Blood Urea Nitrogen 71H, Creatinine 1.58H, Estimat Glomerular Filtration Rate 33, BUN/Creatinine Ratio 45, Glucose Level 149H, Calcium Level 9.3 Microbiology 10/19/20 Blood Culture - Final, Complete No growth 10/19/20 Urine Culture - Final, Complete Staphylococcus aureus Gram Pos Mixed Bacterial Stephanie 10/19/20 Influenza Types A,B Antigen (MARLENE) - Final, Complete Assessment/Plan Assessment/Plan (1) COVID-19 Status: Acute Assessment & Plan: 10/25/20 On dexamethasone day 7. Discussed limited benefits of remdesevir and convalescent plasma, is now at day 9 of symptoms so would not use remdesevir, convalescent plasma not yet ordered, but of note there is delay in getting it at this point, will go ahead and order. 10/26/20- worsening hypoxia but not having increased work of breathing, discussed use of IS and attempting to lie prone but she does not feel she can. Dexame thasone day 8, waiting on convalescent plasma. 10/27/20- requiring vapotherm at high FiO2, dexamethasone day 9, awaiting plasma. (2) Pneumonia Status: Acute Assessment & Plan: Due to COVID19 (3) Acute respiratory failure with hypoxia Status: Acute Assessment & Plan: Present on admission, secondary to above. 10/26/20 worsening- Due to COVID19 pneumonia, but may also have some pulmonary edema component. Is not receiving IV fluid, but is drinking a lot of soda. Will check BNP. Is on home furosemide, if BNP elevated, will give extra furosemide today. 10/27/20- BNP less than 10 yesterday, continue supportive care as above. (4) Diabetes mellitus Status: Chronic Assessment & Plan: Currently on detemir 25 BID and novolog 20 units TID. Glucose 200s yesterday but below 200 today. Continue home gabapentin. 10/26/20- glucose last 24 hours 169-238 with downward trend. 10/27/20- levemir increased to 30 BID, glucose still above 200 persistently, will increase to 35 units. 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 Qualifiers: Qualified Codes: I25.10 - Atherosclerotic heart disease of [place] coronary artery without angina pectoris (6) Breast cancer Status: Chronic Permanent Comment: Left mastectomy done in 2014 Last Edited By: Lauryn Chandra on Oct 25, 2020 15:38 Assessment & Plan: Continue home letrozole. Qualifiers: (7) CKD (chronic kidney disease) Status: Chronic Assessment & Plan: Stable, continue to monitor (8) Hyperlipidemia Status: Chronic Assessment & Plan: Continue home statin (9) HTN (hypertension) Status: Chronic Assessment & Plan: Continued home medications, but lisinopril currently held for hyperkalemia. Qualifiers: Qualified Codes: I10 - Essential (primary) hypertension (10) Obesity (BMI 30-39.9) Status: Chronic Assessment & Plan: No acute management issues, but contributes to risk from [place] VID19 (11) DVT prophylaxis Status: Acute Assessment & Plan: On treatment dose enoxaparin currently. Clinical Quality Measures DVT/VTE Risk/Contraindication: Risk Factor Score Per Nursin RFS Level Per Nursing on Admit: 3=High LAURYN CHANDRA MD Oct 27, 2020 08:10
[2020-10-27] MEDS: meTOprolol TARTRATE 25 MG (LOPRESSOR) TABLET PO SCH ×2 (08:44→20:39)
[2020-10-27] MEDS: ASPIRIN E.C. 81 MG (ECOTRIN) TAB PO SCH (08:44)
[2020-10-27] MEDS: FERROUS SULF 325 MG (IRON) TAB PO SCH ×3 (08:44→17:12)
[2020-10-27] MEDS: FUROSEMIDE 40 MG (LASIX) TAB PO SCH (08:44)
[2020-10-27] MEDS: OMEGA 3 (FISH OIL) 1000 MG CAP PO SCH ×3 (08:44→17:12)
[2020-10-27] MEDS: ENOXAPARIN 300 MG/3 ML (LOVENOX) MULTI-DOSE VIAL SQ SCH ×2 (08:45→20:38)
[2020-10-27] MEDS: inSUlin ASPART (NovoLOG) 1 UNIT/0.01 ML (CHARGE PER UNIT) SC SCH ×3 (08:46→17:13)
[2020-10-27] MEDS: PANTOPRAZOLE 40 MG (PROTONIX) TAB PO SCH (08:50)
[2020-10-27] MEDS: FOLIC ACID 1 MG TAB PO SCH (13:37)
[2020-10-27] MEDS: VITAMIN D3 10 MCG (400 UNITS) TABLET PO SCH (13:37)
[2020-10-27] MEDS ORDERED: NS IV 500 ML 500 ML ONE (14:20)
[2020-10-27 14:36] VITALS: BP 153/88
[2020-10-27 14:50] VITALS: BP 129/62
[2020-10-27 16:21] VITALS: BP 141/74
[2020-10-27 19:35] VITALS: BP 159/80
[2020-10-27] MEDS: FENOFIBRATE 134 MG (LOFIBRA) CAPSULE PO SCH (20:39)
[2020-10-27 23:55] VITALS: BP 136/73
[2020-10-28] VITALS (13 sets, daily range): BP systolic 117–148; BP diastolic 60–85
--- NOTE | 2020-10-28 01:15 | NUR ---
Dr. Chandra notified - RT requesting a MAT protocol order so that pt can get started on inhalers. also informed of O2 saturation around 90% on BiPap at 90%. New order rec for MAT protocol.
[2020-10-28] MEDS ORDERED: RT-ALBUTEROL INHALER HFA (VENTOLIN HFA) 18 GM IH ONE (01:26)
[2020-10-28] MEDS: dexAMETHasone 6 MG TAB (DECADRON) PO SCH (05:09)
[2020-10-28] MEDS: CATHETER FLUSH 10 ML SYR IV SCH ×3 (05:09→21:25)
[2020-10-28] MEDS: GABAPENTIN 300 MG (NEURONTIN) CAP PO SCH ×3 (05:10→20:01)
[2020-10-28 05:24] LABS: HEMOGLOBIN 10.7 g/dL (11.5-16.0); MEAN PLATELET VOLUME 12.5 fL (9.0-12.2); WHITE BLOOD COUNT 7.5 10^3/uL (4.3-11.0)
[2020-10-28 05:35] LABS: POTASSIUM 4.3 MMOL/L (3.6-5.0)
[2020-10-28 05:36] LABS: CALCIUM 9.5 MG/DL (8.5-10.1)
[2020-10-28 05:41] LABS: CREATININE SERUM 1.44 MG/DL (0.60-1.30)
[2020-10-28] MEDS: OMEGA 3 (FISH OIL) 1000 MG CAP PO SCH ×3 (09:21→17:08)
[2020-10-28] MEDS: meTOprolol TARTRATE 25 MG (LOPRESSOR) TABLET PO SCH ×2 (09:21→20:00)
[2020-10-28] MEDS: ASPIRIN E.C. 81 MG (ECOTRIN) TAB PO SCH (09:21)
[2020-10-28] MEDS: FUROSEMIDE 40 MG (LASIX) TAB PO SCH (09:21)
[2020-10-28] MEDS: PANTOPRAZOLE 40 MG (PROTONIX) TAB PO SCH (09:21)
[2020-10-28] MEDS: FERROUS SULF 325 MG (IRON) TAB PO SCH ×3 (09:21→17:08)
[2020-10-28] MEDS: ENOXAPARIN 300 MG/3 ML (LOVENOX) MULTI-DOSE VIAL SQ SCH ×2 (09:22→20:29)
[2020-10-28] MEDS: inSUlin ASPART (NovoLOG) 1 UNIT/0.01 ML (CHARGE PER UNIT) SC SCH ×4 (09:22→18:45)
[2020-10-28] MEDS: RT-ALBUTEROL INHALER HFA (VENTOLIN HFA) 18 GM IH SCH ×5 (09:23→21:20)
--- NOTE | 2020-10-28 09:50 | NUR ---
DR KEMP UPDATED ON PT CONDITION. 02 STAYING 88-90% ON VAPOTHERM, BIPAP PLACED BACK ON PT 90% FI02. DR KEMP AT BEDSIDE. ORDERS RECEIVED TO TRANSFER PT UP TO ICU ONCE A BED IS AVAILABLE
--- NOTE | 2020-10-28 11:22 | Diagnostic Imaging Report ---
Indication: Hypoxia. COMPARISON: 10/20/2020 FINDINGS: Single frontal radiograph view the chest was obtained and demonstrates normal cardiac silhouette and pulmonary vasculature. Lungs show scattered coarse interstitial infiltrates. There is no large effusion or pneumothorax. Osseous structures show no acute abnormalities. IMPRESSION: 1. Interval progression of scattered bilateral interstitial infiltrate. Dictated by: Dictated on workstation # [id number]
[2020-10-28] MEDS ORDERED: PIPERACILLIN/TAZO 4.5 GM/NS 100 ML IV NR ×2 (12:00)
[2020-10-28] MEDS: LINEZOLID IVPB 300 ML IV SCH ×2 (12:56→20:03)
[2020-10-28] MEDS: VITAMIN D3 10 MCG (400 UNITS) TABLET PO SCH (14:22)
[2020-10-28] MEDS: FOLIC ACID 1 MG TAB PO SCH (14:22)
--- NOTE | 2020-10-28 14:25 | NUR ---
PT TRANSFERRED TO ICU AT THIS TIME. ALL BELONGINGS INCLUDING PURSE SENT WITH PT. REPORT WAS GIVEN TO RADHA Boyd PRIOR TO PT ARRIVING TO FLOOR. NO FURTHER NEEDS/CONCERNS IDENTIFIED AT THIS TIME
--- NOTE | 2020-10-28 14:25 | NUR ---
PT TO ROOM ICU 6 VIA BED ACCOMPANIED BY STAFF. PT CONNECTED TO BEDSIDE MONITOR AND INTRODUCED TO SURROUNDINGS. PT BELONGINGS IN ROOM WITH PT. CATHETER PLACED USING STERILE TECHNIQUE. CLEAR SRAW URINE OUTPUT. PT ASSISTED TO SEMI PRONE POSITION. CALL LIGHT WITHIN REACH.
[2020-10-28] MEDS ORDERED: RT-ALBUTEROL INHALER HFA (VENTOLIN HFA) 18 GM IH PRN (16:00)
--- NOTE | 2020-10-28 16:06 | Progress Note ---
Subjective Subjective/Events-last exam Patient having increasing work of breathing and now requiring bipap at all times. States that she feels short of breath. Patient states that she is very scared. Took her off bipap and placed on vapotherm for 5 mins to talk to patient and she desats to high 70s, placed back on bipap. Spoke with daughter in law this AM as patient states that she really does not want to be intubated but she is scared to . Torrie states that she is worried that if she gets intubated she will never come off which is reasonable given her lung dz. They will speak about it later today and make the final decision. Torrie states that the patient has made it very clear that she does not want to have a trach or peg tube or be intubated for a long period of time. Review of Systems Pulmonary: Dyspnea, Cough Cardiovascular: No: Chest Pain, Palpitations Gastrointestinal: No: Nausea, Vomiting, Abdominal Pain Genitourinary: No Dysuria, No Frequency Neurological: Weakness Objective Exam Last Set of Vital Signs Vital Signs Date Time Temp Pulse Resp B/P (MAP) Pulse Ox O2 Delivery O2 Flow Rate FiO2 10/28/20 15:58 35.7 10/28/20 15:00 66 24 135/78 (97) 97 NIV Bilevel 85.00 10/28/20 14:30 85 Capillary Refill : Less Than 3 Seconds I&O Intake and Output 10/28/20 00:00 Intake Total 2370 ml Output Total 900 ml Balance 1470 ml Intake Oral 2370 ml Output Urine Total 900 ml # Voids 2 # Bowel Movements 1 General: Alert, Oriented X3, Moderate Distress Lungs: Other (Dimished breath sounds, increased work of breathing) Heart: Regular Rate, No Murmurs Abdomen: Normal Bowel Sounds, Soft, No Tenderness, No Masses Extremities: Other (1+ pitting edema bilaterally) Neuro: Other (conversational dsypnea) Results/Procedures Lab Laboratory Tests 10/27/20 16:42: Glucometer 241H 10/27/20 19:37: Glucometer 225H 10/28/20 05:12: White Blood Count 7.5, Red Blood Count 3.99, Hemoglobin 10.7L, Hematocrit 33L, Mean Corpuscular Volume 84, Mean Corpuscular Hemoglobin 27, Mean Corpuscular Hemoglobin Concent 32, Red Cell Distribution Width 15.3H, Platelet Count 276, Mean Platelet Volume 12.5H, Sodium Level 139, Potassium Level 4.3, Chloride Level 101, Carbon Dioxide Level 20L, Anion Gap 18H, Blood Urea Nitrogen 63H, Creatinine 1.44H, Estimat Glomerular Filtration Rate 36, BUN/Creatinine Ratio 44, Glucose Level 171H, Calcium Level 9.5 10/28/20 11:00: Glucometer 315H 10/28/20 11:45: D-Dimer < 0.27 10/28/20 13:38: Glucometer 387H Microbiology 10/19/20 Blood Culture - Final, Complete No growth 10/19/20 Urine Culture - Final, Complete Staphylococcus aureus Gram Pos Mixed Bacterial Stephanie 10/19/20 Influenza Types A,B Antigen (MARLENE) - Final, Complete Assessment/Plan Assessment/Plan (1) COVID-19 Status: Acute Assessment & Plan: 10/25/20 On dexamethasone day 7. Discussed limited benefits of remdesevir and convalescent plasma, is now at day 9 of symptoms so would not use remdesevir, convalescent plasma not yet ordered, but of note there is delay in getting it at this point, will go ahead and order. 10/26/20- worsening hypoxia but not having increased work of breathing, discussed use of IS and attempting to lie prone but she does not feel she can. Dexamethasone day 8, waiting on convalescent plasma. 10/27/20- requiring vapotherm at high FiO2, dexamethasone day 9, awaiting plasma. 10/28- Patient on bipap @ 90% FiO2, plasma given today, spoke with Dr Longoria and sending patient up to ICU (2) Pneumonia Status: Acute Assessment & Plan: Due to COVID19 10/28: Due to worsening respiratory failure started on Zosyn and Zyvox today (3) Acute respiratory failure with hypoxia Status: Acute Assessment & Plan: Present on admission, secondary to above. 10/26/20 worsening- Due to COVID19 pneumonia, but may also have some pulmonary edema component. Is not receiving IV fluid, but is drinking a lot of soda. Will check BNP. Is on home furosemide, if BNP elevated, will give extra furosemide today. 10/27/20- BNP less than 10 yesterday, continue supportive care as above. (4) Diabetes mellitus Status: Chronic Assessment & Plan: Currently on detemir 25 BID and novolog 20 units TID. Glucose 200s yesterday but below 200 today. Continue home gabapentin. 10/26/20- glucose last 24 hours 169-238 with downward trend. 10/27/20- levemir increased to 30 BID, glucose still above 200 persistently, will increase to 35 units. Qualifiers: Qualified Codes: E11.42 - Type 2 diabetes mellitus with diabetic polyneuropathy; Z79.4 - jail (current) use of insulin (5) CAD (coronary artery disease) Status: Chronic Assessment & Plan: Continue home aspirin. Qualifiers: Qualified Codes: I25.10 - Atherosclerotic heart disease of [place] coronary a rtery without angina pectoris (6) Breast cancer Status: Chronic Permanent Comment: Left mastectomy done in 2014 Last Edited By: Maggie Chandra on Oct 25, 2020 15:38 Assessment & Plan: Continue home letrozole. Qualifiers: (7) CKD (chronic kidney disease) Status: Chronic Assessment & Plan: Stable, continue to monitor 10/28: Mild improvement, Renal dose medications, patient continues to have good PO intake (8) Hyperlipidemia Status: Chronic Assessment & Plan: Continue home statin (9) HTN (hypertension) Status: Chronic Assessment & Plan: Continued home medications, but lisinopril currently held for hyperkalemia. Qualifiers: Qualified Codes: I10 - Essential (primary) hypertension (10) Obesity (BMI 30-39.9) Status: Chronic Assessment & Plan: No acute management issues, but contributes to risk from COVID19 (11) DVT prophylaxis Status: Acute Assessment & Plan: On treatment dose enoxaparin currently. Clinical Quality Measures DVT/VTE Risk/Contraindication: Risk Factor Score Per Nursin RFS Level Per Nursing on Admit: 3=High SHARON KEMP MD Oct 28, 2020 16:06
[2020-10-28 16:14] LABS: ALBUMIN 3.6 GM/DL (3.2-4.5); POTASSIUM 4.8 MMOL/L (3.6-5.0)
[2020-10-28 16:15] LABS: CALCIUM 9.2 MG/DL (8.5-10.1)
[2020-10-28 16:17] LABS: TOTAL PROTEIN 8.1 GM/DL (6.4-8.2)
[2020-10-28 16:18] LABS: BILIRUBIN,TOTAL 0.5 MG/DL (0.1-1.0)
[2020-10-28 16:20] LABS: CREATININE SERUM 1.65 MG/DL (0.60-1.30)
[2020-10-28 16:23] LABS: MAGNESIUM 1.5 MG/DL (1.6-2.4)
[2020-10-28] MEDS ORDERED: PIPERACILLIN/TAZOBACTAM (BULK) 4.5 GM in NS (IVPB) 100 ML IV SCH (18:00)
[2020-10-28] MEDS: FENOFIBRATE 134 MG (LOFIBRA) CAPSULE PO SCH (20:01)
[2020-10-28] MEDS: PIPERACILLIN/TAZOBACTAM (BULK) 4.5 GM in NS (IVPB) 100 ML IV SCH (20:02)
[2020-10-29] VITALS (24 sets, daily range): BP systolic 127–180; BP diastolic 49–94
[2020-10-29 03:02] LABS: ABG BASE EXCESS 3.5 MMOL/L (-2.5-2.5); ABG OXYGEN SATURATION 98 % (94-100); ABG PCO2 39 MMHG (35-45); ABG PH 7.46 (7.37-7.43); ABG PO2 105 MMHG (79-93); ABG TCO2 28.5 MMOL/L (21.0-31.0); ALLENS TEST YES-POS; INSPIRED O2 80%; PATIENT TEMP 36.4; VENTILATOR NO
[2020-10-29 03:02] LABS: BASOPHILS % (AUTO) 0 % (0-10); EOSINOPHILS % (AUTO) 0 % (0-10); HEMATOCRIT 34 % (35-52); HEMOGLOBIN 10.8 g/dL (11.5-16.0); LYMPHOCYTES % (AUTO) 10 % (12-44); MEAN CORPUSCULAR HEMOGLOBIN 27 pg (25-34); MEAN CORPUSCULAR HGB CONC 32 g/dL (32-36); MEAN CORPUSCULAR VOLUME 83 fL (80-99); MEAN PLATELET VOLUME 12.6 fL (9.0-12.2); MONOCYTES # (AUTO) 0.6 10^3/uL (0.0-1.0); MONOCYTES % (AUTO) 6 % (0-12); NEUTROPHILS # (AUTO) 7.7 10^3/uL (1.8-7.8); NEUTROPHILS % (AUTO) 80 % (42-75); PLATELET COUNT 296 10^3/uL (130-400); WHITE BLOOD COUNT 9.6 10^3/uL (4.3-11.0)
[2020-10-29 03:10] LABS: ALBUMIN 3.7 GM/DL (3.2-4.5)
[2020-10-29 03:11] LABS: POTASSIUM 4.4 MMOL/L (3.6-5.0)
[2020-10-29 03:12] LABS: CALCIUM 9.6 MG/DL (8.5-10.1)
[2020-10-29 03:13] LABS: TOTAL PROTEIN 8.3 GM/DL (6.4-8.2)
[2020-10-29 03:15] LABS: BILIRUBIN,TOTAL 0.5 MG/DL (0.1-1.0)
[2020-10-29 03:17] LABS: CREATININE SERUM 1.6 MG/DL (0.60-1.30)
--- NOTE | 2020-10-29 03:59 | Diagnostic Imaging Report ---
Indication: Respiratory failure Portable chest 2:10 AM There are faint alveolar infiltrates in the lungs. Heart size and pulmonary vascularity are normal. There are no effusions or pneumothoraces. IMPRESSION: Faint pulmonary infiltrates of the lungs appears similar to the previous day's comparison exam. Dictated by: Dictated on workstation # [id number]
[2020-10-29 04:07] LABS: PHOSPHORUS 3.2 MG/DL (2.3-4.7)
[2020-10-29 04:09] LABS: MAGNESIUM 1.7 MG/DL (1.6-2.4)
[2020-10-29] MEDS ORDERED: MAGNESIUM 1 GM/100 ML IVPB 200 ML IV ONE (04:17)
[2020-10-29] MEDS: MAGNESIUM 1 GM/100 ML IVPB 100 ML IV SCH ×3 (04:25→06:15)
[2020-10-29] MEDS: PIPERACILLIN/TAZOBACTAM (BULK) 4.5 GM in NS (IVPB) 100 ML IV SCH ×3 (04:26→19:46)
[2020-10-29] MEDS: POTASSIUM CL 10MEQ/50ML IVPB 50 ML IV SCH (04:30)
[2020-10-29] MEDS: KCL 20 MEQ TAB (K-DUR) PO SCH (04:31)
--- NOTE | 2020-10-29 05:06 | Pulmonary Consultation ---
History of Present Illness History of Present Illness Date Seen by Provider: Oct 29, 2020 Time Seen by Provider: 05:01 Date of Admission History of Present Illness 65-year-old woman presents to the emergency room via EMS from the [facility] clinic where she was tested for COVID-19 (+) and found to be hypoxic with oxygen saturations of 80% on room air. She does not normally require supplemental oxygen at home. She complains of weakness, myalgia, low-grade fever, and shortness of breath. She has numerous comorbidities including diabetes. Allergies and Home Medications Allergies Coded Allergies: chlorhexidine (Verified Allergy, Unknown, 02/06/18) codeine (Unverified Allergy, Unknown, 09/03/17) scopolamine (Verified Allergy, Unknown, 02/06/18) Home Medications Acetaminophen 500 Mg Tablet, 500 MG PO TID PRN for PAIN-MILD (1-4), (Reported) Amlodipine Besylate 5 Mg Tablet, 5 MG PO HS, (Reported) Aspirin 81 Mg Tablet.dr, 81 MG PO DAILY, (Reported) Atorvastatin Calcium 40 Mg Tablet, 40 MG PO HS, (Reported) Cholecalciferol (Vitamin D3) 50 Mcg Capsule, 50 MCG PO 1400, (Reported) Dulaglutide 1.5 Mg/0.5 Ml Pen.injctr, 1.5 MG SC WED, (Reported) Fenofibrate,Micronized 134 Mg Capsule, 134 MG PO HS, (Reported) Folic Acid 0.8 Mg Tablet, 0.8 MG PO 1400, (Reported) Furosemide 40 Mg Tablet, 40 MG PO DAILY, (Reported) Gabapentin 300 Mg Capsule, 300 MG PO 0700,1400, (Reported) Gabapentin 300 Mg Capsule, 600 MG PO HS, (Reported) TAKES 2 (300MG) CAPS Insulin Glargine,Hum.rec.anlog 100 Unit/1 Ml Insuln.pen, 65 UNIT SQ BID, (Report ed) Insulin Lispro 100 Unit/1 Ml Insuln.pen, 30-60 UNITS SC TIDAC, (Reported) Letrozole 2.5 Mg Tablet, 2.5 MG PO HS, (Reported) Lisinopril 40 Mg Tablet, 40 MG PO DAILY, (Reported) Magnesium Oxide 400 Mg Tablet, 400 MG PO TID, (Reported) Metoprolol Tartrate 25 Mg Tablet, 12.5 MG PO BID, (Reported) TAKES OF A 25MG TAB [place]-3 Fatty Acids/Fish Oil 1 Each Capsule, 1 EACH PO TID, (Reported) Pantoprazole Sodium 40 Mg Tablet.dr, 40 MG PO DAILY, (Reported) Past Pmtpsum-Hgjfbt-Egvnmh Hx Past Med/Social Hx: Reviewed Nursing Past Med/Soc Hx, Reviewed and Corrections made Patient Social History Alcohol Use: Denies Use Recreational Drug Use: No Smoking Status: Former Smoker Type Used: Cigarettes Former Smoker, Quit: Feb 06, 2015 Recent Foreign Travel: No Contact w/Someone Who Travel: No Recent Infectious Disease Expo: Yes (covid) Recent Hopitalizations: No Immunizations Up To Date Tetanus Booster (TDap): More than 5yrs Date of Pneumonia Vaccine: Aug 08, 2016 Seasonal Allergies Seasonal Allergies: No Past Medical History Surgeries: Yes (LEFT BREAST MASTECTOMY, 6 LYMPH NODE REMOVED,BILAT CTR, L ULNAR NERVE, PORT) Breast, Cardiac, Coronary Stent, Gallbladder, Joint Replacement, Orthopedic, Tubal Ligation Respiratory: No Cardiac: Yes (NONSTEMI) Coronary Artery Disease, Heart Attack, High Cholesterol, Hypertension Neurological: Yes (PERIPHERAL NEUROPATHY-FEET) Neuropathy Reproductive Disorders: No Female Reproductive Disorders: Denies Sexually Transmitted Disease: No HIV/AIDS: No Genitourinary: Yes (CHRONIC RENAL INSUFFICIENCY) Bladder Infection, Kidney Stones, Renal Failure Gastrointestinal: No (S/P JENNIFER) Gall Bladder Disease Musculoskeletal: Yes Arthritis, Chronic Back Pain Endocrine: Yes Diabetes, Insulin dep HEENT: No Loss of Vision: Bilateral Hearing Impairment: Denies Cancer: Yes (LEFT BREAST CA, LYMPH NODES) Breast Did You Recieve Any Treatments: Yes What Type of Treatment Did You: Chemotherapy, Radiation, Surgical Intervention Psychosocial: No Integumentary: No Blood Disorders: Yes (ANEMIA) Adverse Reaction/Blood Tranf: No (N/A) Family Medical History Asthma G8 SISTER Cardiovascular disease 19 FATHER Diabetes mellitus G8 SISTER FH: breast cancer SISTER FH: leukemia 19 MOTHER, , Age:52 Psychosocial problem G8 SISTER No Family History of: AIDS Abdominal aortic aneurysm Osorio's disease Alcoholism Alzheimer's disease Arthritis Cancer of mouth Colon cancer Completed stroke Dementia Drug abuse Kidney disease Myocardial infarction Parkinson's disease Prostate cancer Respiratory disorder Seizure disorder Severe allergy Thyroid disease Tuberculosis No Pertinent Family Hx Review of Systems Time Seen by Provider: 15:57 Sepsis Event Evaluation Height, Weight, BMI Height: 5'9.00" Weight: 230lbs. 0.0oz. 104.284596ft; 39.26 BMI Method:Stated Exam Exam Vital Signs Date Time Temp Pulse Resp B/P (MAP) Pulse Ox O2 Delivery O2 Flow Rate FiO2 10/29/20 03:00 67 22 143/60 (87) 91 NIV Bilevel 70.00 10/29/20 02:00 66 23 139/59 (85) 91 NIV Bilevel 70.00 10/29/20 01:15 68 10/29/20 01:00 63 30 130/52 (78) 91 NIV Bilevel 70.00 10/29/20 00:00 64 13 131/49 (76) 93 NIV Bilevel 70.00 10/28/20 23:41 35.6 10/28/20 23:00 66 26 148/66 (105) 91 NIV Bilevel 70.00 10/28/20 22:00 66 28 126/78 (102) 88 NIV Bilevel 70.00 10/28/20 21:25 NIV Bilevel 70.00 10/28/20 21:20 68 23 96 75.00 10/28/20 21:00 67 28 117/75 (104) 94 NIV Bilevel 10/28/20 20:38 94 NIV CPAP 75 10/28/20 20:00 73 35 136/76 (97) 96 NIV Bilevel 10/28/20 19:55 71 19 127/64 (85) 95 NIV Bilevel 75.00 10/28/20 19:16 35.4 10/28/20 19:00 78 10/28/20 19:00 78 23 127/64 (82) 95 NIV Bilevel 85.00 10/28/20 18:40 72 28 97 85.00 10/28/20 17:00 71 26 134/66 (88) 98 NIV Bilevel 85.00 10/28/20 16:00 71 23 138/60 (86) 99 NIV Bilevel 85.00 10/28/20 15:58 35.7 10/28/20 15:00 66 24 135/78 (97) 97 NIV Bilevel 85.00 10/28/20 15:00 67 10/28/20 14:30 97 NIV CPAP 85 10/28/20 14:29 72 28 95 75.00 10/28/20 13:59 36.0 70 93 90 10/28/20 11:14 91 Vapotherm 40.00 100 1/7/21 11:00 36.0 73 24 132/82 (99) 92 NIV Bilevel 90.00 10/28/20 10:53 93 Vapotherm 40.00 100.00 10/28/20 08:00 95 NIV Bilevel 90 10/28/20 07:50 36.6 75 26 123/85 (98) 93 NIV Bilevel 80.00 I & O 10/29/20 07:00 Intake Total 470 ml Output Total 1950 ml Balance -1480 ml Height & Weight Height: 5'9.00" Weight: 230lbs. 0.0oz. 104.994592md; 39.26 BMI Method:Stated General Appearance: No Apparent Distress, WD/WN, Chronically ill, Obese HEENT: PERRL/EOMI, Normal ENT Inspection, Pharynx Normal, Moist Mucous Membranes Neck: Full Range of Motion, Normal Inspection, Non Tender Respiratory: Chest Non Tender, Lungs Clear, Normal Breath Sounds, No Accessory Muscle Use, No Respiratory Distress Cardiovascular: Regular Rate, Rhythm, No Edema, No Gallop, No JVD, No Murmur, Normal Peripheral Pulses Capillary Refill: Less Than 3 Seconds Extremity: Normal Capillary Refill, Normal Inspection, Normal Range of Motion, Non Tender, No Calf Tenderness, No Pedal Edema Neurologic/Psychiatric: Alert, Oriented x3, No Motor/Sensory Deficits, Normal Mood/Affect Skin: Normal Color, Warm/Dry Lymphatic: No Adenopathy Results Lab Laboratory Tests 10/27/20 05:12 10/28/20 05:12 10/28/20 15:30 10/29/20 02:40 Assessment/Plan Assessment/Plan Acute respiratory failure with COVID and ARDS -Currently on BIPAP at 80% -ABG reviewed -Decadron -CVP -Did not qualify for Remdesivir -Proning -IVF are SL PNA -Zosyn and Zyvox 10/28 -Knight cultures pending DM -Monitor -Levemir and scheduled Novolog Anemia -Monitor CAD -Monitor Morbid obesity Breast cancer hx CHENTE DENISE DO Oct 29, 2020 05:05
[2020-10-29] MEDS ORDERED: hydrALAZINE (APESOLINE) 20 MG/ML VIAL ONE (05:34)
[2020-10-29] MEDS: CATHETER FLUSH 10 ML SYR IV SCH ×3 (06:15→21:33)
[2020-10-29] MEDS: RT-ALBUTEROL INHALER HFA (VENTOLIN HFA) 18 GM IH SCH ×5 (07:06→21:59)
[2020-10-29] MEDS: dexAMETHasone 6 MG TAB (DECADRON) PO SCH (07:34)
[2020-10-29] MEDS: GABAPENTIN 300 MG (NEURONTIN) CAP PO SCH ×3 (07:34→19:51)
[2020-10-29] MEDS: inSUlin ASPART (NovoLOG) 1 UNIT/0.01 ML (CHARGE PER UNIT) SC SCH ×4 (07:34→19:52)
[2020-10-29] MEDS: FERROUS SULF 325 MG (IRON) TAB PO SCH ×3 (07:34→17:14)
[2020-10-29] MEDS: OMEGA 3 (FISH OIL) 1000 MG CAP PO SCH ×3 (07:34→17:15)
[2020-10-29] MEDS: ENOXAPARIN 300 MG/3 ML (LOVENOX) MULTI-DOSE VIAL SQ SCH ×2 (07:34→19:51)
--- NOTE | 2020-10-29 08:37 | NUR ---
THIS RN CALLED PT'S [id number] AND PROVIDED UPDATE. THIS RN AND [id number] TALKED ABOUT INTUBATION IF PT WERE TO NEED IT. THE [id number] STATED SHE AND THE FAMILY WERE GOING TO TALK ABOUT IT AND SHE WOULD CALLT HIS RN BACK.
[2020-10-29] MEDS: ASPIRIN E.C. 81 MG (ECOTRIN) TAB PO SCH (09:00)
[2020-10-29] MEDS: meTOprolol TARTRATE 25 MG (LOPRESSOR) TABLET PO SCH ×2 (09:00→19:51)
[2020-10-29] MEDS: FUROSEMIDE 40 MG (LASIX) TAB PO SCH (09:00)
[2020-10-29] MEDS: PANTOPRAZOLE 40 MG (PROTONIX) TAB PO SCH (09:00)
[2020-10-29] MEDS: LINEZOLID IVPB 300 ML IV SCH ×2 (09:00→19:45)
[2020-10-29] MEDS: FOLIC ACID 1 MG TAB PO SCH (13:08)
[2020-10-29] MEDS: VITAMIN D3 10 MCG (400 UNITS) TABLET PO SCH (13:12)
--- NOTE | 2020-10-29 15:04 | NUR ---
"RD ASSESSMENT PMHx: CAD; hypercholesterolemia; HTN; renal failure; DM; CA(breast); PT INTERACTION: Note pt currently in COVID isolation, per chart review. Note all diet information for nutrition follow-up is per Daysi RN or per chart review. Daysi states current appetite appears poor d/t need for Bipap. Note avg PO intake <25% x2d, per chart review. Daysi states some issues with diarrhea. Note last BM was 10/29, and pt not currently on bowel regimen per chart review. Est. kcal needs: 0339-0180 kcal | 15-18 kcal/kg Est. Pro needs: 90-112 g Pro | 0.8-1.0 g Pro/kg PES STATEMENT: Inadequate oral intake (NI-2.1) related to loss of appetite, and diarrhea, as evidenced by chart review, communication with RN, and avg PO intake <25% meals. INTERVENTION: Continue with current diet order of CHO 60g/m 3snack diet. Add Glucerna (vary) to meals TID, for increased kcal intake. Provides 220 kcal and 10 g Pro per serving. Will continue to follow and reassess as pt needs, intake, and status change. Jorge Luis PORTER, MS RD LD [phone] cell"
--- NOTE | 2020-10-29 16:06 | NUR ---
THIS RN CONTACTED DR. HARPER TO NOTIFY HER OF PT'S CONSISTENTLY HIGH BLOOD SUGARS DESPITE PT GETTING NOVOLOG 20UNITS SCHEDULED AND PT NOT EATING DUE TO BEING BIPAP DEPENDENT. THIS RN ALSO REPORTED PT'S REPORT OF BACK AND HIP PAIN. NEW ORDERS TO BE PLACED BY DR. HARPER, SEE ORDER HX.
[2020-10-29] MEDS: FENOFIBRATE 134 MG (LOFIBRA) CAPSULE PO SCH (19:51)
[2020-10-30] VITALS (24 sets, daily range): BP systolic 124–165; BP diastolic 59–89
[2020-10-30] MEDS: RT-ALBUTEROL INHALER HFA (VENTOLIN HFA) 18 GM IH SCH ×6 (01:12→21:18)
[2020-10-30] MEDS: PIPERACILLIN/TAZOBACTAM (BULK) 4.5 GM in NS (IVPB) 100 ML IV SCH ×3 (03:46→20:20)
[2020-10-30 04:01] LABS: BASOPHILS % (AUTO) 0 % (0-10); EOSINOPHILS % (AUTO) 0 % (0-10); HEMATOCRIT 32 % (35-52); HEMOGLOBIN 10.1 g/dL (11.5-16.0); LYMPHOCYTES # (AUTO) 0.7 10^3/uL (1.0-4.0); LYMPHOCYTES % (AUTO) 10 % (12-44); MEAN CORPUSCULAR HEMOGLOBIN 26 pg (25-34); MEAN CORPUSCULAR HGB CONC 32 g/dL (32-36); MEAN CORPUSCULAR VOLUME 83 fL (80-99); MEAN PLATELET VOLUME 12.5 fL (9.0-12.2); MONOCYTES # (AUTO) 0.4 10^3/uL (0.0-1.0); MONOCYTES % (AUTO) 5 % (0-12); NEUTROPHILS # (AUTO) 6.2 10^3/uL (1.8-7.8); NEUTROPHILS % (AUTO) 79 % (42-75); PLATELET COUNT 302 10^3/uL (130-400); WHITE BLOOD COUNT 7.8 10^3/uL (4.3-11.0)
[2020-10-30 04:18] LABS: POTASSIUM 4.1 MMOL/L (3.6-5.0)
[2020-10-30 04:19] LABS: CALCIUM 9.3 MG/DL (8.5-10.1)
[2020-10-30 04:23] LABS: PHOSPHORUS 3.2 MG/DL (2.3-4.7)
[2020-10-30 04:24] LABS: CREATININE SERUM 1.53 MG/DL (0.60-1.30)
[2020-10-30 04:26] LABS: MAGNESIUM 2.1 MG/DL (1.6-2.4)
[2020-10-30] MEDS: MAGNESIUM 1 GM/100 ML IVPB 100 ML IV SCH (04:50)
[2020-10-30] MEDS: POTASSIUM CL 10MEQ/50ML IVPB 50 ML IV SCH (04:50)
[2020-10-30] MEDS: KCL 20 MEQ TAB (K-DUR) PO SCH (04:51)
[2020-10-30] MEDS: CATHETER FLUSH 10 ML SYR IV SCH ×3 (05:03→22:11)
[2020-10-30] MEDS: inSUlin ASPART (NovoLOG) 1 UNIT/0.01 ML (CHARGE PER UNIT) SC SCH ×7 (05:03→20:20)
--- NOTE | 2020-10-30 06:10 | Progress Note - Hospitalist ---
Subjective HPI/CC On Admission Date Seen by Provider: Oct 30, 2020 Time Seen by Provider: 11:30 CC: Dyspnea HPI: This is a 65yoWF clinic pt of Dr. Jules who has a hx of breast cancer who presented for SOB and chest pain found to have Covid at [facility] and high risk for decompensation so she was admitted for Remdesivir, Dexamethasone, Lovenox, and protocol treatment. Subjective/Events-last exam On biPAP Labs reviewed Patient feels ok just dyspneic No pain reported Review of Systems Pulmonary: Dyspnea, Cough Focused Exam Lactate Level 10/28/20 15:30: Lactic Acid Level 1.31 Objective Exam Vital Signs Vital Signs Date Time Temp Pulse Resp B/P (MAP) Pulse Ox O2 Delivery O2 Flow Rate FiO2 10/31/20 12:14 Vapotherm 40.00 90.00 10/31/20 12:00 83 19 136/77 (96) 88 10/31/20 12:00 37.3 10/31/20 10:54 80 Capillary Refill : Less Than 3 Seconds General Appearance: No Apparent Distress, WD/WN, Anxious, Chronically ill, Obese Respiratory: No Accessory Muscle Use, No Respiratory Distress, Decreased Breath Sounds Cardiovascular: Regular Rate, Rhythm, No Edema, No Gallop, No JVD, No Murmur, Normal Peripheral Pulses Neurologic/Psychiatric: Alert, Oriented x3, No Motor/Sensory Deficits, Normal Mood/Affect Results/Procedures Lab Laboratory Tests 10/31/20 03:55 Patient resulted labs reviewed. Assessment/Plan Assessment and Plan Assess & Plan/Chief Complaint Assessment: COVID-19 PNA Hypoxia Breast cancer hx CAD HTN HLP Plan: O2 Lovenox COVID-19 support 10/21/20: Monitor O2 Monitor BP 10/22/20: Monitor low BP 10/23/20: Monitor BP and BS Adjust meds down 10/24/20: Monitor sugar and BP Monitor for increased O2 requirements 10/30/20: biPAP Monitor closely High risk for decompensation Diagnosis/Problems Diagnosis/Problems (1) COVID-19 Status: Acute (2) Hypoxia Status: Acute (3) Breast cancer Status: Chronic Qualifiers: Breast location: upper outer quadrant of breast Patient sex: female Laterality: left Permanent Comment: Left mastectomy done in 2014 Last Edited By: Maggie Chandra on Oct 25, 2020 15:38 (4) HTN (hypertension) Status: Chronic Qualifiers: Hypertension type: essential hypertension Qualified Codes: I10 - Essential (primary) hypertension (5) CAD (coronary artery disease) Status: Chronic Qualifiers: Coronary Disease-Associated Artery/Lesion type: [place] artery [place] vs. 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
[2020-10-30] MEDS: dexAMETHasone 6 MG TAB (DECADRON) PO SCH (07:56)
[2020-10-30] MEDS: FERROUS SULF 325 MG (IRON) TAB PO SCH ×3 (07:56→17:03)
[2020-10-30] MEDS: ENOXAPARIN 300 MG/3 ML (LOVENOX) MULTI-DOSE VIAL SQ SCH ×2 (07:56→20:20)
[2020-10-30] MEDS: LINEZOLID IVPB 300 ML IV SCH ×2 (07:56→20:20)
[2020-10-30] MEDS: GABAPENTIN 300 MG (NEURONTIN) CAP PO SCH ×3 (07:56→20:21)
[2020-10-30] MEDS: OMEGA 3 (FISH OIL) 1000 MG CAP PO SCH ×3 (07:56→17:03)
[2020-10-30] MEDS: meTOprolol TARTRATE 25 MG (LOPRESSOR) TABLET PO SCH ×2 (08:02→20:21)
[2020-10-30] MEDS: ASPIRIN E.C. 81 MG (ECOTRIN) TAB PO SCH (08:02)
[2020-10-30] MEDS: FUROSEMIDE 40 MG (LASIX) TAB PO SCH (08:02)
[2020-10-30] MEDS: PANTOPRAZOLE 40 MG (PROTONIX) TAB PO SCH (08:04)
[2020-10-30] MEDS: FOLIC ACID 1 MG TAB PO SCH (13:17)
[2020-10-30] MEDS: VITAMIN D3 10 MCG (400 UNITS) TABLET PO SCH (13:23)
--- NOTE | 2020-10-30 16:16 | NUR ---
PT UPDATE GIVEN TO MARTA VIA PHONE, NO QUESTIONS/CONCERNS VOICED.
[2020-10-30] MEDS: FENOFIBRATE 134 MG (LOFIBRA) CAPSULE PO SCH (20:20)
[2020-10-31] VITALS (25 sets, daily range): BP systolic 119–159; BP diastolic 58–103
[2020-10-31] MEDS: RT-ALBUTEROL INHALER HFA (VENTOLIN HFA) 18 GM IH SCH ×6 (01:14→22:59)
[2020-10-31 04:19] LABS: ABG BASE EXCESS 4.6 MMOL/L (-2.5-2.5); ABG OXYGEN SATURATION 92 % (94-100); ABG PCO2 41 MMHG (35-45); ABG PH 7.46 (7.37-7.43); ABG PO2 60 MMHG (79-93); ABG TCO2 29.7 MMOL/L (21.0-31.0)
[2020-10-31 04:20] LABS: ALLENS TEST YES-POS; BASOPHILS % (AUTO) 0 % (0-10); EOSINOPHILS # (AUTO) 0.2 10^3/uL (0.0-0.3); EOSINOPHILS % (AUTO) 2 % (0-10); HEMATOCRIT 33 % (35-52); HEMOGLOBIN 10.3 g/dL (11.5-16.0); INSPIRED O2 60%; LYMPHOCYTES # (AUTO) 1.1 10^3/uL (1.0-4.0); LYMPHOCYTES % (AUTO) 10 % (12-44); MEAN CORPUSCULAR HEMOGLOBIN 26 pg (25-34); MEAN CORPUSCULAR HGB CONC 31 g/dL (32-36); MEAN CORPUSCULAR VOLUME 83 fL (80-99); MEAN PLATELET VOLUME 12.4 fL (9.0-12.2); MONOCYTES # (AUTO) 0.5 10^3/uL (0.0-1.0); MONOCYTES % (AUTO) 4 % (0-12); NEUTROPHILS # (AUTO) 8.2 10^3/uL (1.8-7.8); NEUTROPHILS % (AUTO) 76 % (42-75); PATIENT TEMP 36.4; PLATELET COUNT 326 10^3/uL (130-400); VENTILATOR NO; WHITE BLOOD COUNT 10.8 10^3/uL (4.3-11.0)
[2020-10-31 04:44] LABS: CALCIUM 9.4 MG/DL (8.5-10.1)
[2020-10-31 04:48] LABS: PHOSPHORUS 3.1 MG/DL (2.3-4.7)
[2020-10-31 04:49] LABS: CREATININE SERUM 1.52 MG/DL (0.60-1.30)
[2020-10-31 04:51] LABS: MAGNESIUM 1.9 MG/DL (1.6-2.4)
[2020-10-31] MEDS: POTASSIUM CL 10MEQ/50ML IVPB 50 ML IV SCH (04:52)
[2020-10-31] MEDS: CATHETER FLUSH 10 ML SYR IV SCH ×3 (04:52→22:18)
[2020-10-31] MEDS: KCL 20 MEQ TAB (K-DUR) PO SCH (04:52)
[2020-10-31] MEDS: inSUlin ASPART (NovoLOG) 1 UNIT/0.01 ML (CHARGE PER UNIT) SC SCH ×7 (04:52→20:44)
[2020-10-31] MEDS: MAGNESIUM 1 GM/100 ML IVPB 100 ML IV SCH (04:52)
[2020-10-31] MEDS: PIPERACILLIN/TAZOBACTAM (BULK) 4.5 GM in NS (IVPB) 100 ML IV SCH ×3 (05:11→20:43)
[2020-10-31] MEDS: FERROUS SULF 325 MG (IRON) TAB PO SCH ×3 (08:00→17:07)
[2020-10-31] MEDS: dexAMETHasone 6 MG TAB (DECADRON) PO SCH (08:00)
[2020-10-31] MEDS: ASPIRIN E.C. 81 MG (ECOTRIN) TAB PO SCH (08:01)
[2020-10-31] MEDS: FUROSEMIDE 40 MG (LASIX) TAB PO SCH (08:01)
[2020-10-31] MEDS: meTOprolol TARTRATE 25 MG (LOPRESSOR) TABLET PO SCH ×2 (08:01→20:43)
[2020-10-31] MEDS: OMEGA 3 (FISH OIL) 1000 MG CAP PO SCH ×3 (08:01→17:07)
[2020-10-31] MEDS: GABAPENTIN 300 MG (NEURONTIN) CAP PO SCH ×3 (08:01→20:43)
[2020-10-31] MEDS: PANTOPRAZOLE 40 MG (PROTONIX) TAB PO SCH (08:01)
[2020-10-31] MEDS: LINEZOLID IVPB 300 ML IV SCH ×2 (08:02→20:42)
[2020-10-31] MEDS: ENOXAPARIN 300 MG/3 ML (LOVENOX) MULTI-DOSE VIAL SQ SCH ×2 (08:17→20:43)
--- NOTE | 2020-10-31 12:30 | Progress Note - Hospitalist ---
Subjective HPI/CC On Admission Date Seen by Provider: Oct 31, 2020 Time Seen by Provider: 11:30 CC: Dyspnea HPI: This is a 65yoWF clinic pt of Dr. Jules who has a hx of breast cancer who presented for SOB and chest pain found to have Covid at [facility] and high risk for decompensation so she was admitted for Remdesivir, Dexamethasone, Lovenox, and protocol treatment. Subjective/Events-last exam Max on Vapotherm Monitored closely Feels better Ate a bit today No pain Review of Systems Pulmonary: Dyspnea, Cough Focused Exam Lactate Level Objective Exam Vital Signs Vital Signs Date Time Temp Pulse Resp B/P (MAP) Pulse Ox O2 Delivery O2 Flow Rate FiO2 10/31/20 19:52 80 10/31/20 19:29 36.8 10/31/20 19:02 NIV Bilevel 55.00 10/31/20 18:51 22 99 10/31/20 18:00 157/83 (107) 10/31/20 14:22 100 Capillary Refill : Less Than 3 Seconds General Appearance: No Apparent Distress, WD/WN, Chronically ill Respiratory: Lungs Clear, No Respiratory Distress Cardiovascular: Regular Rate, Rhythm Neurologic/Psychiatric: Alert, Oriented x3, No Motor/Sensory Deficits, Normal Mood/Affect Results/Procedures Lab Laboratory Tests 10/31/20 03:55 Patient resulted labs reviewed. Assessment/Plan Assessment and Plan Assess & Plan/Chief Complaint Assessment: COVID-19 PNA Hypoxia Breast cancer hx CAD HTN HLP Plan: O2 Lovenox COVID-19 support 10/21/20: Monitor O2 Monitor BP 10/22/20: Monitor low BP 10/23/20: Monitor BP and BS Adjust meds down 10/24/20: Monitor sugar and BP Monitor for increased O2 requirements 10/30/20: biPAP Monitor closely High risk for decompensation 10/31/20: Maxed on Vapotherm BiPAP also Diagnosis/Problems Diagnosis/Problems (1) COVID-19 Status: Acute (2) Hypoxia Status: Acute (3) Breast cancer Status: Chronic Qualifiers: Breast location: upper outer quadrant of breast Patient sex: female Laterality: left Permanent Comment: Left mastectomy done in 2014 Last Edited By: Maggie Chandra on Oct 25, 2020 15:38 (4) HTN (hypertension) Status: Chronic Qualifiers: Hypertension type: essential hypertension Qualified Codes: I10 - Essential (primary) hypertension (5) CAD (coronary artery disease) Status: Chronic Qualifiers: Coronary Disease-Associated Artery/Lesion type: [place] artery [place] vs. 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
[2020-10-31] MEDS: FOLIC ACID 1 MG TAB PO SCH (12:47)
[2020-10-31] MEDS: VITAMIN D3 10 MCG (400 UNITS) TABLET PO SCH (12:48)
--- NOTE | 2020-10-31 15:33 | NUR ---
PT UPDATE GIVEN TO MARTA VIA PHONE, NO QUESTIONS/CONCERNS VOICED
[2020-10-31] MEDS: FENOFIBRATE 134 MG (LOFIBRA) CAPSULE PO SCH (20:43)
[2020-11-01] VITALS (29 sets, daily range): BP systolic 124–174; BP diastolic 51–100
[2020-11-01] MEDS: RT-ALBUTEROL INHALER HFA (VENTOLIN HFA) 18 GM IH SCH ×6 (02:30→21:43)
[2020-11-01 03:19] LABS: BASOPHILS % (AUTO) 0 % (0-10); EOSINOPHILS # (AUTO) 0.1 10^3/uL (0.0-0.3); EOSINOPHILS % (AUTO) 1 % (0-10); HEMATOCRIT 31 % (35-52); HEMOGLOBIN 9.8 g/dL (11.5-16.0); LYMPHOCYTES # (AUTO) 0.8 10^3/uL (1.0-4.0); LYMPHOCYTES % (AUTO) 7 % (12-44); MEAN CORPUSCULAR HEMOGLOBIN 26 pg (25-34); MEAN CORPUSCULAR HGB CONC 32 g/dL (32-36); MEAN CORPUSCULAR VOLUME 83 fL (80-99); MEAN PLATELET VOLUME 12.8 fL (9.0-12.2); MONOCYTES # (AUTO) 0.4 10^3/uL (0.0-1.0); MONOCYTES % (AUTO) 3 % (0-12); NEUTROPHILS # (AUTO) 9.2 10^3/uL (1.8-7.8); NEUTROPHILS % (AUTO) 81 % (42-75); PLATELET COUNT 297 10^3/uL (130-400); WHITE BLOOD COUNT 11.2 10^3/uL (4.3-11.0)
[2020-11-01 03:33] LABS: ABG BASE EXCESS 4.7 MMOL/L (-2.5-2.5); ABG OXYGEN SATURATION 76 % (94-100); ABG PCO2 41 MMHG (35-45); ABG PH 7.45 (7.37-7.43); ABG PO2 43 MMHG (79-93)
[2020-11-01 03:34] LABS: PATIENT TEMP 36.4; VENTILATOR NO
[2020-11-01 03:48] LABS: POTASSIUM 3.8 MMOL/L (3.6-5.0)
[2020-11-01 03:49] LABS: CALCIUM 9.3 MG/DL (8.5-10.1)
[2020-11-01 03:53] LABS: CREATININE SERUM 1.44 MG/DL (0.60-1.30); PHOSPHORUS 2.9 MG/DL (2.3-4.7)
[2020-11-01 03:56] LABS: MAGNESIUM 1.9 MG/DL (1.6-2.4)
[2020-11-01] MEDS: POTASSIUM CL 10MEQ/50ML IVPB 50 ML IV SCH (04:14)
[2020-11-01] MEDS: KCL 20 MEQ TAB (K-DUR) PO SCH (04:15)
[2020-11-01] MEDS: MAGNESIUM 1 GM/100 ML IVPB 100 ML IV SCH (04:15)
[2020-11-01] MEDS: PIPERACILLIN/TAZOBACTAM (BULK) 4.5 GM in NS (IVPB) 100 ML IV SCH ×3 (04:39→20:23)
--- NOTE | 2020-11-01 04:52 | Pulmonary Progress Note ---
Subjective Time Seen by a Provider: 04:44 Subjective/Events-last exam Pt is still requiring BiPAP at 70% currently. She was not tolerant of Vapotherm yesterday. Sepsis Event Evaluation Height, Weight, BMI Height: 5'9.00" Weight: 230lbs. 0.0oz. 104.546535ax; 39.26 BMI Method:Stated Exam Exam Vital Signs Date Time Temp Pulse Resp B/P (MAP) Pulse Ox O2 Delivery O2 Flow Rate FiO2 11/01/20 04:00 61 24 135/63 (87) 92 NIV Bilevel 70.00 11/01/20 03:20 36.4 NIV Bilevel 70.00 11/01/20 03:00 70 23 162/72 (102) 92 NIV Bilevel 60.00 11/01/20 02:30 62 23 93 55.00 11/01/20 02:00 64 23 162/73 (102) 92 NIV Bilevel 60.00 11/01/20 01:00 64 27 146/77 (100) 93 NIV Bilevel 60.00 11/01/20 01:00 64 11/01/20 00:23 NIV Bilevel 60.00 11/01/20 00:00 36.6 11/01/20 00:00 63 26 124/51 (75) 90 NIV Bilevel 55.00 10/31/20 23:00 64 24 133/71 (91) 92 NIV Bilevel 55.00 10/31/20 22:59 63 22 93 55.00 10/31/20 22:00 66 20 147/88 (102) 94 NIV Bilevel 55.00 10/31/20 21:00 66 18 143/65 (100) 90 NIV Bilevel 55.00 10/31/20 21:00 63 17 143/65 (100) 90 NIV Bilevel 55.00 10/31/20 20:45 92 NIV Bilevel 55 10/31/20 20:41 79 18 149/82 (104) 92 NIV Bilevel 55.00 10/31/20 20:00 77 20 149/82 (105) 93 10/31/20 19:52 80 10/31/20 19:29 36.8 10/31/20 19:02 NIV Bilevel 55.00 10/31/20 19:00 78 25 147/89 (103) 100 10/31/20 19:00 78 25 147/89 (103) 100 10/31/20 18:51 80 22 99 65.00 10/31/20 18:00 78 17 157/83 (107) 89 NIV Bilevel 65.00 10/31/20 17:00 86 16 149/95 (116) 91 Vapotherm 40.00 100.00 10/31/20 16:17 36.9 10/31/20 16:00 75 28 135/58 (83) 96 Vapotherm 40.00 100.00 10/31/20 15:00 75 12 119/74 (89) 90 Vapotherm 40.00 100.00 10/31/20 14:22 93 Vapotherm 40.00 100 10/31/20 14:00 76 12 138/65 (89) 94 Vapotherm 40.00 100.00 10/31/20 13:00 93 10/31/20 13:00 81 14 141/77 (98) 92 Vapotherm 40.00 100.00 10/31/20 12:44 Vapotherm 40.00 100.00 10/31/20 12:14 Vapotherm 40.00 90.00 10/31/20 12:00 83 19 136/77 (96) 88 Vapotherm 40.00 100.00 10/31/20 12:00 37.3 10/31/20 11:00 84 25 129/76 (93) 97 Vapotherm 40.00 100.00 10/31/20 10:54 91 Vapotherm 40.00 80 10/31/20 10:00 72 15 151/80 (103) 96 Vapotherm 40.00 100.00 10/31/20 09:00 75 25 133/78 (96) 90 Vapotherm 40.00 100.00 10/31/20 08:30 92 Vapotherm 40.00 100 10/31/20 08:12 36.8 Vapotherm 40.00 100.00 10/31/20 08:00 75 25 150/73 (98) 90 Vapotherm 40.00 100.00 10/31/20 07:32 36.6 10/31/20 07:26 90 Vapotherm 40.00 100 10/31/20 07:00 74 10/31/20 07:00 70 22 132/78 (96) 89 NIV Bilevel 55.00 10/31/20 06:00 73 20 148/79 (102) 90 NIV Bilevel 55.00 10/31/20 05:00 64 23 159/91 (113) 92 NIV Bilevel 55.00 I & O 11/01/20 07:00 Intake Total 1910 ml Output Total 1625 ml Balance 285 ml Height & Weight Height: 5'9.00" Weight: 230lbs. 0.0oz. 104.587217ou; 39.26 BMI Method:Stated General Appearance: No Apparent Distress, WD/WN, Chronically ill HEENT: PERRL/EOMI, Normal ENT Inspection, Pharynx Normal, Moist Mucous Membranes Neck: Full Range of Motion, Normal Inspection, Non Tender Respiratory: Lungs Clear, No Respiratory Distress Cardiovascular: Regular Rate, Rhythm Capillary Refill: Less Than 3 Seconds Extremity: Normal Capillary Refill, Normal Inspection, Normal Range of Motion, Non Tender, No Calf Tenderness, No Pedal Edema Neurologic/Psychiatric: Alert, Oriented x3, No Motor/Sensory Deficits, Normal Mood/Affect Skin: Normal Color, Warm/Dry Lymphatic: No Adenopathy Results Lab Laboratory Tests 10/31/20 03:55 11/01/20 02:45 Assessment/Plan Assessment/Plan Acute respiratory failure with COVID and ARDS -Currently on BIPAP at 70% -Trial pt to Vapotherm this morning. -Pt will probably need intubation unless she is a DNR -Check CXR -Lasix daily -ABG reviewed -Decadron -CVP -Did not qualify for Remdesivir -Proning -IVF are SL PNA -Zosyn and Zyvox / -D/C zyvox -Knight cultures pending UTI with MSSA DM -Monitor -Levemir and scheduled Novolog \\ -Increase Levemir to 27units BID Anemia -Monitor CAD -Monitor Morbid obesity Breast cancer hx Discussed with family's current condition and persistent respiratory failure/hypoxia and BiPAP dependance. Family states they are ok with intubation if pt is. I discussed with patient and she does want to be a "No Chest Compression". She is ok with intubation. Secondary to persistant biPAP dependance and worsening hypoxia will proceed with intubation. Critical Care: Critically Ill Patient Time spent with patient (mins): 60 CHENTE DENISE DO Nov 01, 2020 04:52
[2020-11-01] MEDS: CATHETER FLUSH 10 ML SYR IV SCH ×3 (05:02→21:57)
[2020-11-01] MEDS: inSUlin ASPART (NovoLOG) 1 UNIT/0.01 ML (CHARGE PER UNIT) SC SCH ×6 (05:23→18:29)
[2020-11-01] MEDS ORDERED: PROPOFOL DRIP (ICU) 100 ML IV ONE (05:55)
--- NOTE | 2020-11-01 06:00 | Progress Note - Hospitalist ---
Subjective HPI/CC On Admission Date Seen by Provider: Nov 01, 2020 CC: Dyspnea HPI: This is a 65yoWF clinic pt of Dr. Jules who has a hx of breast cancer who presented for SOB and chest pain found to have Covid at [facility] and high risk for decompensation so she was admitted for Remdesivir, Dexamethasone, Lovenox, and protocol treatment. Objective Exam Vital Signs Vital Signs Date Time Temp Pulse Resp B/P (MAP) Pulse Ox O2 Delivery O2 Flow Rate FiO2 11/01/20 10:37 83 28 96 70 11/01/20 09:00 132/66 (88) NIV Bilevel 70.00 11/01/20 07:40 37.1 Capillary Refill : Less Than 3 Seconds Results/Procedures Lab Laboratory Tests 11/01/20 02:45 Patient resulted labs reviewed. Assessment/Plan Assessment and Plan Assess & Plan/Chief Complaint Assessment: COVID-19 PNA Hypoxia Breast cancer hx CAD HTN HLP Plan: O2 Lovenox COVID-19 support 10/21/20: Monitor O2 Monitor BP 10/22/20: Monitor low BP 10/23/20: Monitor BP and BS Adjust meds down 10/24/20: Monitor sugar and BP Monitor for increased O2 requirements 10/30/20: biPAP Monitor closely High risk for decompensation 10/31/20: Maxed on Vapotherm BiPAP also Diagnosis/Problems Diagnosis/Problems (1) COVID-19 Status: Acute (2) Hypoxia Status: Acute (3) Breast cancer Status: Chronic Qualifiers: Breast location: upper outer quadrant of breast Patient sex: female Laterality: left Permanent Comment: Left mastectomy done in 2014 Last Edited By: Maggie Chandra on Oct 25, 2020 15:38 (4) HTN (hypertension) Status: Chronic Qualifiers: Hypertension type: essential hypertension Qualified Codes: I10 - Essential (primary) hypertension (5) CAD (coronary artery disease) Status: Chronic Qualifiers: Coronary Disease-Associated Artery/Lesion type: [place] artery [place] vs. 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
[2020-11-01] MEDS ORDERED: fentaNYL DRIP PRE-MIX 250 ML IV ONE ×2 (06:32→13:32)
--- NOTE | 2020-11-01 06:36 | Pulmonary Procedures ---
Pulmonary Procedures Date of Procedure Date of Service: Nov 01, 2020 Reason for Intubation: respiratory failure Time of Intubation: 06:35 Intubation Method: orotracheal Tube Size: 8 Medications: Propofol, Rocuronium, Versed Positive End Tide CO2: Yes Breath Sounds after Intubation: bilateral-equal Intubation Complications: no complications Post Intubation Xray: Yes CHENTE DENISE DO Nov 01, 2020 06:36
--- NOTE | 2020-11-01 06:59 | NUR ---
Timeline note. 0530 - orders received from Dr. Longoria to trial patient on Vapotherm. Patients O2 sats dropped from 92 to 95% on 40L and 100% FiO2. 0540 - This RN along with Dr. Longoria called the patients family to update them on the situation. After talking with family this RN and Dr. Longoria talked to the patient directly and educated her on her current condition and explained the need for intubation. Pt agreed that intubation was necessary. Consent was obtained for intubation at this time. 06 - Dr. Longoria along with this RN, RT, and another RN at bedside in preparation to intubate. 4mg Versed given per Dr. Longoria. Rt began to bag patient. 06 - 5ml of propofol given by Dr. Longoria, 50mg of Karsten per Dr. Longoria. 0628 - ETT placed, 24 at the lip, size 8, breath sounds heard bilaterally, color change noted. Restraints placed at this time per Dr. Longoria. 0631 - 50mcg fentanyl given per Dr. Longoria, OG placed, Propofol drip started at 20mcg/kg/min 0638 - Fentanyl drip started at 50mcg/hr. 0726 - family updated on pts condition and all questions answered best to my ability.
--- NOTE | 2020-11-01 07:11 | Diagnostic Imaging Report ---
Indication: Shortness of breath. Comparison: 10/29/2020 Findings: Single view of the chest demonstrates stable bilateral pulmonary infiltrates. The heart is prominent. There is no pneumothorax. No large effusion seen. Osseous structures stable. Impression: Unchanged bilateral pulmonary infiltrates. Dictated by: Dictated on workstation # [id number]
[2020-11-01] MEDS ORDERED: NS IV 1000 ML 1,000 ML ONE (08:23)
--- NOTE | 2020-11-01 08:33 | Diagnostic Imaging Report ---
Portable erect AP chest at 7:51. INDICATION: Respiratory distress In the interval since the prior exam performed earlier today at 5:33 AM, the patient has been intubated. The ET tube tip appears to be in good position overlying the midportion of the tracheal air shadow. An NG line has also been inserted. The tip of the NG line is not visualized but the line does extend below the diaphragm. The heart is stable in size when compared to the prior exam. The alveolar/interstitial pulmonary infiltrates involving the lung bases seen previously are again evident and not significantly changed. The mediastinum is not widened. The osseous structures are intact. IMPRESSION: 1. The newly inserted ET tubes and NG line appear in good position. 2. There is persistent involvement of both lungs by pneumonia/atelectasis. A followup study would be recommended for continued evaluation. Dictated by: Dictated on workstation # [id number]
[2020-11-01] MEDS ORDERED: fentaNYL INJECTION 100 MCG/2 ML AMP IV ONE (08:35)
[2020-11-01] MEDS ORDERED: MIDAZOLAM 5 MG/5 ML (VERSED) VIAL IJ ONE (08:35)
[2020-11-01] MEDS ORDERED: ROCURONIUM 10 MG/ML 5 ML SYRINGE IV ONE (08:35)
--- NOTE | 2020-11-01 08:47 | Anesthesia-Procedure Note ---
Procedures/Interventions Procedure Start/Stop/Diagnosis Date of Procedure: Nov 01, 2020 Start Time: 08:22 Stop Time: 08:38 Arterial Line Arterial Line Catheter: 20G Type: Radial Location: Right Procedure: prepped, draped in sterile fashion, good wave-form was obtained, patient tolerated procedure well, no immediate complications, post procedure area cleaned, post procedure dressing applied CHRISTIAN DE LA CRUZ CRNA Nov 01, 2020 08:47
[2020-11-01 09:49] LABS: ABG BASE EXCESS 2.9 MMOL/L (-2.5-2.5); ABG OXYGEN SATURATION 97 % (94-100); ABG PCO2 47 MMHG (35-45); ABG PH 7.39 (7.37-7.43); ABG PO2 126 MMHG (79-93)
[2020-11-01] MEDS ORDERED: PANTOPRAZOLE 40 MG (PROTONIX) VIAL ONE (09:49)
[2020-11-01 09:50] LABS: ALLENS TEST ART LINE; INSPIRED O2 70%; PATIENT TEMP 36.8; VENTILATOR YES
[2020-11-01] MEDS: ENOXAPARIN 300 MG/3 ML (LOVENOX) MULTI-DOSE VIAL SQ SCH ×2 (10:06→20:23)
[2020-11-01] MEDS: FUROSEMIDE 40 MG (LASIX) TAB PO SCH (10:07)
[2020-11-01] MEDS: GABAPENTIN 300 MG (NEURONTIN) CAP PO SCH ×3 (10:07→21:49)
[2020-11-01] MEDS: dexAMETHasone 6 MG TAB (DECADRON) PO SCH (10:07)
[2020-11-01] MEDS: meTOprolol TARTRATE 25 MG (LOPRESSOR) TABLET PO SCH ×2 (10:07→21:49)
[2020-11-01] MEDS: ASPIRIN E.C. 81 MG (ECOTRIN) TAB PO SCH (10:07)
[2020-11-01] MEDS: PANTOPRAZOLE 40 MG (PROTONIX) TAB PO SCH (10:08)
[2020-11-01] MEDS: FERROUS SULF 325 MG (IRON) TAB PO SCH ×3 (10:08→18:21)
[2020-11-01] MEDS: OMEGA 3 (FISH OIL) 1000 MG CAP PO SCH ×3 (10:08→18:27)
[2020-11-01] MEDS: PROPOFOL DRIP (ICU) 100 ML IV SCH ×2 (11:52→14:00)
--- NOTE | 2020-11-01 12:25 | NUR ---
PICC RN AT BEDSIDE.
[2020-11-01] MEDS: FOLIC ACID 1 MG TAB PO SCH (14:00)
[2020-11-01] MEDS: VITAMIN D3 10 MCG (400 UNITS) TABLET PO SCH (14:00)
[2020-11-01] MEDS: fentaNYL DRIP PRE-MIX 250 ML IV SCH (15:53)
[2020-11-01] MEDS: MIDAZOLAM DRIP PRE-MIX 100 ML IV SCH (17:16)
[2020-11-01] MEDS ORDERED: PROPOFOL DRIP (ICU) 200 ML IV ONE (20:29)
--- NOTE | 2020-11-01 20:48 | NUR ---
Diprivan continues to be titrated off (new bottles obtained from [facility]).
[2020-11-01] MEDS: FENOFIBRATE 134 MG (LOFIBRA) CAPSULE PO SCH (21:49)
[2020-11-02] VITALS (30 sets, daily range): BP systolic 139–203; BP diastolic 55–84
[2020-11-02] MEDS: inSUlin ASPART (NovoLOG) 1 UNIT/0.01 ML (CHARGE PER UNIT) SC SCH ×8 (00:05→23:18)
[2020-11-02] MEDS: RT-ALBUTEROL INHALER HFA (VENTOLIN HFA) 18 GM IH SCH ×6 (02:28→22:02)
[2020-11-02 02:55] LABS: ABG BASE EXCESS 3.4 MMOL/L (-2.5-2.5); ABG OXYGEN SATURATION 93 % (94-100); ABG PCO2 48 MMHG (35-45); ABG PH 7.38 (7.37-7.43); ABG PO2 70 MMHG (79-93); ABG TCO2 29.7 MMOL/L (21.0-31.0); BASOPHILS % (AUTO) 0 % (0-10); EOSINOPHILS # (AUTO) 0.2 10^3/uL (0.0-0.3); EOSINOPHILS % (AUTO) 2 % (0-10); HEMATOCRIT 30 % (35-52); HEMOGLOBIN 9.4 g/dL (11.5-16.0); LYMPHOCYTES # (AUTO) 0.4 10^3/uL (1.0-4.0); LYMPHOCYTES % (AUTO) 5 % (12-44); MEAN CORPUSCULAR HEMOGLOBIN 26 pg (25-34); MEAN CORPUSCULAR HGB CONC 31 g/dL (32-36); MEAN CORPUSCULAR VOLUME 84 fL (80-99); MEAN PLATELET VOLUME 12.5 fL (9.0-12.2); MONOCYTES # (AUTO) 0.3 10^3/uL (0.0-1.0); MONOCYTES % (AUTO) 3 % (0-12); NEUTROPHILS # (AUTO) 7.1 10^3/uL (1.8-7.8); NEUTROPHILS % (AUTO) 83 % (42-75); PLATELET COUNT 275 10^3/uL (130-400); WHITE BLOOD COUNT 8.6 10^3/uL (4.3-11.0)
[2020-11-02 02:59] LABS: ALLENS TEST ART LINE; INSPIRED O2 35%; PATIENT TEMP 36.6; VENTILATOR YES
[2020-11-02 03:07] LABS: POTASSIUM 4.1 MMOL/L (3.6-5.0)
[2020-11-02 03:09] LABS: CALCIUM 9.2 MG/DL (8.5-10.1)
[2020-11-02 03:13] LABS: CREATININE SERUM 1.23 MG/DL (0.60-1.30); PHOSPHORUS 3.8 MG/DL (2.3-4.7)
[2020-11-02 03:15] LABS: MAGNESIUM 2.1 MG/DL (1.6-2.4)
[2020-11-02 03:26] LABS: BAND NEUTROPHILS 8 %; EOSINOPHILS % (MANUAL) 1 %; LYMPHOCYTES % (MANUAL) 6 %; MONOCYTES % (MANUAL) 2 %; NEUTROPHILS % (MANUAL) 83 %; RBC MORPH NORMAL
[2020-11-02] MEDS: PIPERACILLIN/TAZOBACTAM (BULK) 4.5 GM in NS (IVPB) 100 ML IV SCH ×3 (03:33→20:37)
--- NOTE | 2020-11-02 06:00 | Pulmonary Progress Note ---
Subjective Time Seen by a Provider: 05:56 Sepsis Event Evaluation Height, Weight, BMI Height: 5'9.00" Weight: 230lbs. 0.0oz. 104.093185db; 39.26 BMI Method:Stated Exam Exam Vital Signs Date Time Temp Pulse Resp B/P (MAP) Pulse Ox O2 Delivery O2 Flow Rate FiO2 11/02/20 03:08 Mechanical Ventilator 50.00 11/02/20 02:28 62 24 93 35 11/02/20 02:00 64 23 152/62 (92) 94 Mechanical Ventilator 70.00 11/02/20 01:00 66 11/02/20 01:00 66 20 159/64 (95) 93 Mechanical Ventilator 70.00 11/02/20 00:00 73 15 183/73 (109) 89 Mechanical Ventilator 70.00 11/01/20 23:44 35.8 11/01/20 23:00 65 25 158/63 (94) 92 Mechanical Ventilator 70.00 11/01/20 22:00 66 20 152/61 (91) 92 Mechanical Ventilator 70.00 11/01/20 21:43 66 24 92 35 11/01/20 21:00 67 26 155/61 (92) 92 Mechanical Ventilator 70.00 11/01/20 20:29 67 151/61 11/01/20 20:00 67 24 153/61 (91) 93 Mechanical Ventilator 70.00 11/01/20 20:00 96 Mechanical Ventilator 80 11/01/20 19:25 Mechanical Ventilator 70.00 11/01/20 19:24 36.0 11/01/20 19:00 66 11/01/20 19:00 66 23 159/61 (93) 92 Mechanical Ventilator 60.00 11/01/20 18:40 63 25 97 35 11/01/20 18:00 64 25 153/59 (90) 93 Mechanical Ventilator 60.00 11/01/20 17:25 97 Mechanical Ventilator 40.00 11/01/20 17:16 64 26 143/58 11/01/20 17:15 99 Mechanical Ventilator 50.00 11/01/20 17:00 61 20 148/59 (88) 99 Mechanical Ventilator 60.00 11/01/20 16:00 64 26 143/58 (86) 99 Mechanical Ventilator 60.00 11/01/20 15:31 36.9 11/01/20 15:00 64 26 137/57 (83) 98 Mechanical Ventilator 60.00 11/01/20 14:25 67 26 97 60 11/01/20 14:00 70 26 154/58 (90) 95 Mechanical Ventilator 60.00 11/01/20 14:00 70 154/62 11/01/20 13:00 70 12 154/62 (92) 94 Mechanical Ventilator 60.00 11/01/20 12:54 71 11/01/20 12:00 79 22 152/60 (90) 95 Mechanical Ventilator 60.00 11/01/20 11:55 37.0 11/01/20 11:52 82 153/64 11/01/20 11:00 82 17 153/64 (93) 94 Mechanical Ventilator 60.00 11/01/20 10:37 83 28 96 70 11/01/20 10:00 82 21 138/65 (89) 98 Mechanical Ventilator 70.00 11/01/20 09:00 82 25 132/66 (88) 98 Mechanical Ventilator 70.00 11/01/20 08:00 80 47 138/90 (106) 96 Mechanical Ventilator 70.00 11/01/20 07:40 96 Mechanical Ventilator 80 11/01/20 07:40 37.1 11/01/20 07:32 80 27 96 11/01/20 07:00 80 24 139/90 (106) 98 Mechanical Ventilator 80.00 11/01/20 06:46 80 11/01/20 06:38 86 24 99 100 11/01/20 06:00 75 20 174/91 (118) 90 NIV Bilevel 70.00 I & O 11/02/20 07:00 Intake Total 662 ml Output Total 1270 ml Balance -608 ml Height & Weight Height: 5'9.00" Weight: 230lbs. 0.0oz. 104.982679kv; 39.26 BMI Method:Stated General Appearance: No Apparent Distress, WD/WN, Chronically ill HEENT: PERRL/EOMI, Normal ENT Inspection, Pharynx Normal, Moist Mucous Membranes Neck: Full Range of Motion, Normal Inspection, Non Tender Respiratory: Lungs Clear, No Respiratory Distress Cardiovascular: Regular Rate, Rhythm Capillary Refill: Less Than 3 Seconds Extremity: Normal Capillary Refill, Normal Inspection, Normal Range of Motion, Non Tender, No Calf Tenderness, No Pedal Edema Neurologic/Psychiatric: Alert, Oriented x3, No Motor/Sensory Deficits, Normal Mood/Affect Skin: Normal Color, Warm/Dry Lymphatic: No Adenopathy Results Lab Laboratory Tests 11/01/20 02:45 11/02/20 02:38 Assessment/Plan Assessment/Plan Acute respiratory failure with COVID and ARDS -Pt intubated 11/01 -Vent 400/14/10 50% -Lasix daily -ABG reviewed -Decadron -CVP -Did not qualify for Remdesivir -Proning -IVF are SL PNA -Zosyn -Knight cultures pending UTI with MSSA DM -Monitor -Levemir and scheduled Novolog \\ -Increase Levemir to 27units BID Anemia -Monitor CAD -Monitor Morbid obesity Breast cancer hx DVT/Gi ppx -Protonix -Lovenox CHENTE DENISE DO Nov 02, 2020 05:59
[2020-11-02] MEDS: dexAMETHasone 6 MG TAB (DECADRON) PO SCH (06:33)
[2020-11-02] MEDS: GABAPENTIN 300 MG (NEURONTIN) CAP PO SCH ×3 (06:34→20:39)
[2020-11-02] MEDS: POTASSIUM CL 10MEQ/50ML IVPB 50 ML IV SCH (06:34)
[2020-11-02] MEDS: MAGNESIUM 1 GM/100 ML IVPB 100 ML IV SCH (06:34)
[2020-11-02] MEDS: KCL 20 MEQ TAB (K-DUR) PO SCH (06:35)
[2020-11-02] MEDS: CATHETER FLUSH 10 ML SYR IV SCH ×3 (06:35→22:06)
--- NOTE | 2020-11-02 07:31 | Diagnostic Imaging Report ---
History: Respiratory failure COMPARISON: 11/01/2020 TECHNIQUE: Frontal view chest FINDINGS: Endotracheal tube is about 5 cm above the raz. The right PICC line tip projects over the cavoatrial junction. There are airspace opacities in the lung bases and the left upper lobe. These appear stable since the prior study. No pleural effusion or pneumothorax is seen. The tip of the enteric tube projects over the distal esophagus. The cardiac silhouette is normal in size. IMPRESSION: 1. Patchy airspace opacities bilaterally, appear stable since the prior exam. 2. Stable endotracheal tube. The tip of the enteric tube projects over the distal esophagus. 3. Right PICC line projects over the cavoatrial junction. Dictated by: Dictated on workstation # [id number]
[2020-11-02] MEDS: FERROUS SULF 325 MG (IRON) TAB PO SCH ×3 (08:33→18:27)
[2020-11-02] MEDS: ENOXAPARIN 300 MG/3 ML (LOVENOX) MULTI-DOSE VIAL SQ SCH ×2 (08:33→20:38)
[2020-11-02] MEDS: PANTOPRAZOLE 40 MG (PROTONIX) TAB PO SCH (08:33)
[2020-11-02] MEDS: meTOprolol TARTRATE 25 MG (LOPRESSOR) TABLET PO SCH ×2 (08:33→20:38)
[2020-11-02] MEDS: OMEGA 3 (FISH OIL) 1000 MG CAP PO SCH ×3 (08:33→18:27)
[2020-11-02] MEDS: ASPIRIN E.C. 81 MG (ECOTRIN) TAB PO SCH (08:33)
[2020-11-02] MEDS: FUROSEMIDE 40 MG (LASIX) TAB PO SCH (08:33)
[2020-11-02] MEDS: MIDAZOLAM DRIP PRE-MIX 100 ML IV SCH ×2 (08:36→18:28)
[2020-11-02] MEDS: fentaNYL DRIP PRE-MIX 250 ML IV SCH ×2 (10:50→17:00)
[2020-11-02] MEDS: FOLIC ACID 1 MG TAB PO SCH (14:15)
[2020-11-02] MEDS: VITAMIN D3 10 MCG (400 UNITS) TABLET PO SCH (14:15)
[2020-11-02] MEDS ORDERED: LABETALOL HCL 20 MG/4 ML VIAL IV PRN (14:45)
--- NOTE | 2020-11-02 14:51 | NUR ---
THIS RN CALLED DR DENISE REGARDING PT BLOOD PRESSURE AND SEDATION THIS RN ALSO INFORMED DR THAT PT HAD A BLOODY NOSE. ORDERS RECEIVED TO RESTART PROPOFOL GTT WITH A MAX OF 20MCG/KG/MIN. RESUMED NORVASC AND PRN BP MEDICATION RECEIVED.
[2020-11-02] MEDS: PROPOFOL DRIP (ICU) 100 ML IV SCH ×2 (15:04→20:57)
--- NOTE | 2020-11-02 15:39 | NUR ---
Note pt was intubated on 11/01. If pt is to be NPO more than 3days, would recommend initiation of TF. Will continue to follow and reassess as pt needs, intake, and status change. Roosevelt Medina, MS RD LD [phone] cell
--- NOTE | 2020-11-02 15:45 | NUR ---
THIS LEFT MESSAGE FOR DR DENISE REGARDING PT DECREASING URINE OUTPUT.
--- NOTE | 2020-11-02 17:40 | NUR ---
THIS RN NOTIFIED EICU RN (DR WITH ANOTHER PT AT THIS TIME) OF PT DECREASING URINE OUTPUT FOR THE DAY.WILL WAIT FOR RETURN CALL.
--- NOTE | 2020-11-02 19:43 | NUR ---
Report received of low urine output during day shift. Gonzales irrigated with 20 cc sterile saline with immediate return of 600cc urine. Will continue to monitor during shift.
[2020-11-02] MEDS: FENOFIBRATE 134 MG (LOFIBRA) CAPSULE PO SCH (20:39)
--- NOTE | 2020-11-02 21:31 | NUR ---
Rosalie called and provided update on patient's status.
[2020-11-03] VITALS (30 sets, daily range): BP systolic 9–175; BP diastolic 59–92
[2020-11-03] MEDS: fentaNYL DRIP PRE-MIX 250 ML IV SCH ×3 (00:35→16:41)
[2020-11-03] MEDS: RT-ALBUTEROL INHALER HFA (VENTOLIN HFA) 18 GM IH SCH ×6 (02:58→22:36)
[2020-11-03] MEDS: MIDAZOLAM DRIP PRE-MIX 100 ML IV SCH ×3 (03:19→22:43)
[2020-11-03 03:36] LABS: BASOPHILS % (AUTO) 0 % (0-10); EOSINOPHILS # (AUTO) 0.2 10^3/uL (0.0-0.3); EOSINOPHILS % (AUTO) 2 % (0-10); HEMATOCRIT 30 % (35-52); HEMOGLOBIN 9.5 g/dL (11.5-16.0); LYMPHOCYTES # (AUTO) 0.4 10^3/uL (1.0-4.0); LYMPHOCYTES % (AUTO) 4 % (12-44); MEAN CORPUSCULAR HEMOGLOBIN 27 pg (25-34); MEAN CORPUSCULAR HGB CONC 31 g/dL (32-36); MEAN CORPUSCULAR VOLUME 85 fL (80-99); MEAN PLATELET VOLUME 12.3 fL (9.0-12.2); MONOCYTES # (AUTO) 0.3 10^3/uL (0.0-1.0); MONOCYTES % (AUTO) 3 % (0-12); NEUTROPHILS # (AUTO) 7.5 10^3/uL (1.8-7.8); NEUTROPHILS % (AUTO) 83 % (42-75); PLATELET COUNT 279 10^3/uL (130-400)
[2020-11-03 03:37] LABS: ABG BASE EXCESS 2.5 MMOL/L (-2.5-2.5); ABG OXYGEN SATURATION 93 % (94-100); ABG PCO2 46 MMHG (35-45); ABG PH 7.39 (7.37-7.43); ABG PO2 156 MMHG (79-93); ABG TCO2 28.7 MMOL/L (21.0-31.0)
[2020-11-03 03:38] LABS: ALLENS TEST ARTLINE; INSPIRED O2 40; PATIENT TEMP 36.2; VENTILATOR YES
[2020-11-03] MEDS: PROPOFOL DRIP (ICU) 100 ML IV SCH ×3 (03:45→20:35)
[2020-11-03 04:01] LABS: POTASSIUM 4.2 MMOL/L (3.6-5.0)
[2020-11-03 04:02] LABS: CALCIUM 9.1 MG/DL (8.5-10.1)
[2020-11-03 04:06] LABS: PHOSPHORUS 2.9 MG/DL (2.3-4.7)
[2020-11-03 04:07] LABS: CREATININE SERUM 1.02 MG/DL (0.60-1.30)
[2020-11-03 04:09] LABS: MAGNESIUM 2.1 MG/DL (1.6-2.4)
[2020-11-03] MEDS: PIPERACILLIN/TAZOBACTAM (BULK) 4.5 GM in NS (IVPB) 100 ML IV SCH ×3 (04:40→20:34)
[2020-11-03] MEDS: POTASSIUM CL 10MEQ/50ML IVPB 50 ML IV SCH (05:15)
[2020-11-03] MEDS: CATHETER FLUSH 10 ML SYR IV SCH ×3 (05:15→22:51)
[2020-11-03] MEDS: inSUlin ASPART (NovoLOG) 1 UNIT/0.01 ML (CHARGE PER UNIT) SC SCH ×6 (05:16→18:51)
[2020-11-03] MEDS: KCL 20 MEQ TAB (K-DUR) PO SCH (05:16)
[2020-11-03] MEDS: MAGNESIUM 1 GM/100 ML IVPB 100 ML IV SCH (05:16)
--- NOTE | 2020-11-03 05:49 | Pulmonary Progress Note ---
Subjective Time Seen by a Provider: 05:41 Subjective/Events-last exam No complications noted. Sepsis Event Evaluation Height, Weight, BMI Height: 5'9.00" Weight: 230lbs. 0.0oz. 104.898988rx; 39.26 BMI Method:Stated Exam Exam Vital Signs Date Time Temp Pulse Resp B/P (MAP) Pulse Ox O2 Delivery O2 Flow Rate FiO2 11/03/20 05:00 70 24 149/67 (94) 94 Mechanical Ventilator 45.00 11/03/20 04:06 45.00 11/03/20 04:00 71 26 175/73 (107) 95 Mechanical Ventilator 45.00 11/03/20 03:45 69 153/64 11/03/20 03:19 61 23 140/60 11/03/20 03:00 59 23 137/59 (85) 93 Mechanical Ventilator 40.00 11/03/20 02:58 54 24 100 50 11/03/20 02:00 59 24 140/60 (86) 93 Mechanical Ventilator 40.00 11/03/20 01:00 60 23 138/60 (86) 93 Mechanical Ventilator 40.00 11/03/20 00:49 59 11/03/20 00:00 58 23 139/60 (86) 93 Mechanical Ventilator 40.00 11/02/20 23:11 35.6 11/02/20 23:00 Mechanical Ventilator 40.00 11/02/20 23:00 58 24 139/58 (85) 93 Mechanical Ventilator 40.00 11/02/20 22:06 Mechanical Ventilator 40.00 11/02/20 22:02 54 24 100 50 11/02/20 22:00 56 23 140/59 (86) 96 Mechanical Ventilator 50.00 11/02/20 21:29 Mechanical Ventilator 11/02/20 21:00 57 23 153/63 (93) 97 Mechanical Ventilator 50.00 11/02/20 20:57 57 163/59 11/02/20 20:00 56 24 150/63 (92) 97 Mechanical Ventilator 50.00 11/02/20 19:40 35.8 50.00 11/02/20 19:25 54 23 96 11/02/20 19:00 54 23 144/55 (84) 96 Mechanical Ventilator 50.00 11/02/20 19:00 57 11/02/20 18:53 54 24 100 65 11/02/20 18:28 145/50 11/02/20 18:25 56 24 99 11/02/20 18:00 53 23 140/57 (84) 99 Mechanical Ventilator 65.00 11/02/20 17:25 56 24 99 11/02/20 17:00 58 23 149/64 (92) 99 Mechanical Ventilator 65.00 11/02/20 16:25 56 24 99 11/02/20 16:00 59 24 140/60 (86) 98 Mechanical Ventilator 65.00 11/02/20 15:46 35.4 11/02/20 15:04 167/66 11/02/20 15:00 66 24 170/68 (102) 98 Mechanical Ventilator 65.00 11/02/20 14:30 Mechanical Ventilator 65.00 11/02/20 14:12 71 24 92 65 11/02/20 14:00 69 24 203/84 (123) 99 Mechanical Ventilator 75.00 11/02/20 13:00 67 23 193/81 (118) 98 Mechanical Ventilator 75.00 11/02/20 12:38 67 11/02/20 12:00 63 24 160/66 (97) 98 Mechanical Ventilator 75.00 11/02/20 11:00 Mechanical Ventilator 75.00 11/02/20 11:00 74 23 167/70 (102) 92 Mechanical Ventilator 75.00 11/02/20 10:57 75 24 91 75 11/02/20 10:11 66 24 95 40 11/02/20 10:00 68 23 146/67 (93) 95 Mechanical Ventilator 50.00 11/02/20 09:00 66 10 177/75 (109) 94 Mechanical Ventilator 50.00 11/02/20 08:36 70 24 148/69 11/02/20 08:00 71 8 153/69 (97) 93 Mechanical Ventilator 50.00 11/02/20 08:00 97 Mechanical Ventilator 40 11/02/20 07:34 35.4 11/02/20 07:01 68 24 96 40 11/02/20 07:01 68 24 96 40 11/02/20 07:00 67 9 151/69 (96) 97 Mechanical Ventilator 50.00 11/02/20 06:36 69 11/02/20 06:00 69 149/72 (97) 97 Mechanical Ventilator 50.00 I & O 11/03/20 07:00 Intake Total 830 ml Output Total 1280 ml Balance -450 ml Height & Weight Height: 5'9.00" Weight: 230lbs. 0.0oz. 104.682191zs; 39.26 BMI Method:Stated General Appearance: No Apparent Distress, WD/WN, Chronically ill HEENT: PERRL/EOMI, Normal ENT Inspection, Pharynx Normal, Moist Mucous Membranes Neck: Full Range of Motion, Normal Inspection, Non Tender Respiratory: Lungs Clear, No Respiratory Distress Cardiovascular: Regular Rate, Rhythm Capillary Refill: Less Than 3 Seconds Extremity: Normal Capillary Refill, Normal Inspection, Normal Range of Motion, Non Tender, No Calf Tenderness, No Pedal Edema Neurologic/Psychiatric: Alert, Oriented x3, No Motor/Sensory Deficits, Normal Mood/Affect Skin: Normal Color, Warm/Dry Lymphatic: No Adenopathy Results Lab Laboratory Tests 11/02/20 02:38 11/03/20 03:15 Assessment/Plan Assessment/Plan Acute respiratory failure with COVID and ARDS -Pt intubated 11/01 -Vent 400/24/10 45% -Repeat PCT -CXR shows worsening left infiltration -Repeat Sputum culture -Start TF per dietary recommendations -ABG reviewed -Decadron -CVP -Did not qualify for Remdesivir -Proning -IVF are SL Hypertryglycerides -Hold Propofol PNA -Zosyn -Knight cultures pending UTI with MSSA DM -Monitor -Levemir and scheduled Novolog \\ -Increase Levemir to 27units BID Anemia -Monitor CAD -Monitor Morbid obesity Breast cancer hx DVT/Gi ppx -Protonix -Lovenox-- theraputic dosing CHENTE DENISE DO Nov 03, 2020 05:49
[2020-11-03] MEDS: GABAPENTIN 300 MG (NEURONTIN) CAP PO SCH ×3 (06:26→20:34)
--- NOTE | 2020-11-03 07:51 | Diagnostic Imaging Report ---
Indication: Respiratory failure Portable chest shows normal heart size and vascularity. There are patchy infiltrates present most pronounced in the left suprahilar region in the left upper lobe laterally. No consolidations are seen. There is no effusion on the right. There may be a small effusion on the left. The ET tube, OG tube and PICC line remain in place. IMPRESSION: Stable infiltrates. There has developed a small left-sided effusion. Dictated by: Dictated on workstation # [id number]
[2020-11-03] MEDS: meTOprolol TARTRATE 25 MG (LOPRESSOR) TABLET PO SCH ×2 (08:08→20:34)
[2020-11-03] MEDS: PANTOPRAZOLE 40 MG (PROTONIX) TAB PO SCH (08:08)
[2020-11-03] MEDS: FERROUS SULF 325 MG (IRON) TAB PO SCH ×3 (08:08→17:49)
[2020-11-03] MEDS: ASPIRIN E.C. 81 MG (ECOTRIN) TAB PO SCH (08:08)
[2020-11-03] MEDS: amLODIPine 5 MG (NORVASC) TAB PO SCH (08:09)
[2020-11-03] MEDS: OMEGA 3 (FISH OIL) 1000 MG CAP PO SCH ×3 (08:09→17:49)
[2020-11-03] MEDS: ENOXAPARIN 300 MG/3 ML (LOVENOX) MULTI-DOSE VIAL SQ SCH ×2 (10:46→20:34)
--- NOTE | 2020-11-03 12:30 | NUR ---
ATTEMPTED FIRST BOLUS TUBE FEEDING AT THIS TIME. MEDS GIVEN AT THIS TIME WELL. INITIAL FLUSH AND MEDS TOLERATED WELL. WHEN [facility]ULM[facility] GIVE, PT HAD CLEAR WATER APPEARING LIQUID FROM MOUTH AND WHAT APPEARED TO BE TUBE FEEDINGS AFTER. TUBE FEEDING STOPPED AND OGT SET TO LIWS. POP AUSCULTATION USED TO VERIFY TUBE PLACEMENT THIS AM WHILE PATIENT SUPINE. OGT APPEARS IN SAME LOCATION. PER CXR, OGT IN PLACE THIS AM. WILL HOLD TUBE FEEDINGS AT THIS TIME.
[2020-11-03] MEDS: FOLIC ACID 1 MG TAB PO SCH (12:38)
[2020-11-03] MEDS: VITAMIN D3 10 MCG (400 UNITS) TABLET PO SCH (12:42)
--- NOTE | 2020-11-03 15:00 | NUR ---
SPOKE WITH WILLIAN, PATIENTS POINT OF CONTACT. UPDATED ON PATIENT CONDITION WITH NO FURTHER QUESTIONS VOICED.
--- NOTE | 2020-11-03 15:08 | NUR ---
Discussed with Maranda CARDONA about initiating TF. Recommended [facility] via 60ml bolus feeds q4h, with 30ml free water flushes before/after each bolus. Note pt is having TF tolerance issues, per chart review. Agree with holding until tolerance issue resolves. Will continue to follow and reassess as pt needs, intake, and status change. Roosevelt Medina, MS RD LD
--- NOTE | 2020-11-03 18:00 | NUR ---
CALLED PATIENTS DAUGHTER ANSELMO AND ALLOWED HER TO SPEAK TO PATIENT VIA SPEAKER PHONE.
--- NOTE | 2020-11-03 18:41 | NUR ---
SPOKE WITH EICU PROVIDER REGARDING FSBS AND PARAMETERS TO HOLD SCHEDULED 15UNITS OF NOVOLOG. PER CONVERSATION, HE WILL ORDER FLUIDS WITH DEXTROSE AND GIVE 5 UNITS OF NOVOLOG. AWAITING ORDERS TO BE PLACED.
[2020-11-03] MEDS: D5W 1000 ML IV SOLUTION 1,000 ML IV SCH (19:00)
[2020-11-03] MEDS ORDERED: inSUlin ASPART (NovoLOG) 1 UNIT/0.01 ML (CHARGE PER UNIT) SC ONE (19:00)
[2020-11-03] MEDS: FENOFIBRATE 134 MG (LOFIBRA) CAPSULE PO SCH (20:34)
--- NOTE | 2020-11-03 20:45 | NUR ---
Gave PO meds via OG tube. Noted immediate return of clear white fluid from mouth. Will hold further PO meds and tube feedings until patient is supined again.
[2020-11-04] VITALS (30 sets, daily range): BP systolic 11–195; BP diastolic 70–106
[2020-11-04] MEDS: inSUlin ASPART (NovoLOG) 1 UNIT/0.01 ML (CHARGE PER UNIT) SC SCH ×8 (00:13→23:38)
[2020-11-04] MEDS: fentaNYL DRIP PRE-MIX 250 ML IV SCH ×3 (00:14→15:48)
[2020-11-04] MEDS: PROPOFOL DRIP (ICU) 100 ML IV SCH ×2 (01:26→10:00)
[2020-11-04] MEDS: RT-ALBUTEROL INHALER HFA (VENTOLIN HFA) 18 GM IH SCH ×6 (02:33→22:12)
[2020-11-04 03:12] LABS: BASOPHILS % (AUTO) 1 % (0-10); EOSINOPHILS # (AUTO) 0.2 10^3/uL (0.0-0.3); EOSINOPHILS % (AUTO) 2 % (0-10); HEMATOCRIT 31 % (35-52); HEMOGLOBIN 9.7 g/dL (11.5-16.0); LYMPHOCYTES # (AUTO) 0.5 10^3/uL (1.0-4.0); LYMPHOCYTES % (AUTO) 6 % (12-44); MEAN CORPUSCULAR HEMOGLOBIN 27 pg (25-34); MEAN CORPUSCULAR HGB CONC 31 g/dL (32-36); MEAN CORPUSCULAR VOLUME 87 fL (80-99); MEAN PLATELET VOLUME 12.7 fL (9.0-12.2); MONOCYTES # (AUTO) 0.3 10^3/uL (0.0-1.0); MONOCYTES % (AUTO) 4 % (0-12); NEUTROPHILS # (AUTO) 6.5 10^3/uL (1.8-7.8); NEUTROPHILS % (AUTO) 80 % (42-75); PLATELET COUNT 282 10^3/uL (130-400); WHITE BLOOD COUNT 8.1 10^3/uL (4.3-11.0)
[2020-11-04 03:16] LABS: ABG BASE EXCESS 3.1 MMOL/L (-2.5-2.5); ABG OXYGEN SATURATION 88 % (94-100); ABG PCO2 44 MMHG (35-45); ABG PH 7.41 (7.37-7.43); ABG PO2 58 MMHG (79-93)
[2020-11-04 03:19] LABS: ALLENS TEST YES-POS; VENTILATOR YES
[2020-11-04 03:26] LABS: CHLORIDE 107 MMOL/L (98-107); POTASSIUM 4.3 MMOL/L (3.6-5.0); SODIUM 144 MMOL/L (135-145)
[2020-11-04 03:28] LABS: GLUCOSE 115 MG/DL (70-105)
[2020-11-04 03:29] LABS: CARBON DIOXIDE 24 MMOL/L (21-32)
[2020-11-04 03:32] LABS: CREATININE SERUM 0.92 MG/DL (0.60-1.30); GFR ESTIMATED > 60; PHOSPHORUS 2.8 MG/DL (2.3-4.7)
[2020-11-04 03:33] LABS: BUN/CREATININE RATIO 46
[2020-11-04 03:34] LABS: MAGNESIUM 1.9 MG/DL (1.6-2.4)
--- NOTE | 2020-11-04 04:12 | Pulmonary Progress Note ---
Subjective Time Seen by a Provider: 04:07 Sepsis Event Evaluation Height, Weight, BMI Height: 5'9.00" Weight: 230lbs. 0.0oz. 104.749860rs; 39.26 BMI Method:Stated Exam Exam Vital Signs Date Time Temp Pulse Resp B/P (MAP) Pulse Ox O2 Delivery O2 Flow Rate FiO2 11/04/20 03:00 61 23 108/101 (103) 96 Mechanical Ventilator 35.00 11/04/20 02:33 58 24 96 35 11/04/20 02:00 57 24 117/87 (97) 96 Mechanical Ventilator 35.00 11/04/20 01:00 56 24 112/87 (95) 96 Mechanical Ventilator 35.00 11/04/20 00:53 56 11/04/20 00:00 56 24 105/82 (90) 95 Mechanical Ventilator 35.00 11/03/20 23:00 57 23 109/86 (94) 95 Mechanical Ventilator 35.00 11/03/20 22:48 36.5 11/03/20 22:43 58 23 110/86 11/03/20 22:37 58 24 95 35 11/03/20 22:00 60 23 112/88 (96) 95 Mechanical Ventilator 35.00 11/03/20 21:00 61 24 120/92 (101) 95 Mechanical Ventilator 35.00 11/03/20 20:10 94 Mechanical Ventilator 35 11/03/20 20:00 57 23 108/87 (94) 95 Mechanical Ventilator 35.00 11/03/20 19:00 59 23 103/85 (91) 95 Mechanical Ventilator 35.00 11/03/20 18:50 58 11/03/20 18:47 59 24 95 35 11/03/20 18:00 58 24 102/77 (85) 95 Mechanical Ventilator 35.00 11/03/20 17:00 60 24 108/82 (91) 95 Mechanical Ventilator 35.00 11/03/20 16:00 60 24 106/79 (88) 95 Mechanical Ventilator 35.00 11/03/20 15:38 36.2 11/03/20 15:00 59 23 102/76 (85) 94 Mechanical Ventilator 35.00 11/03/20 14:01 62 24 93 35 11/03/20 14:00 61 24 108/76 (87) 93 Mechanical Ventilator 35.00 11/03/20 13:00 67 23 125/85 (98) 93 Mechanical Ventilator 35.00 11/03/20 12:56 68 11/03/20 12:00 65 23 118/72 (87) 96 Mechanical Ventilator 35.00 11/03/20 11:43 36.3 11/03/20 11:00 71 20 129/75 (93) 95 Mechanical Ventilator 35.00 11/03/20 10:06 70 24 92 35 11/03/20 10:00 73 24 135/61 (85) 92 Mechanical Ventilator 35.00 11/03/20 09:47 35.00 11/03/20 09:00 76 24 145/64 (91) 94 Mechanical Ventilator 40.00 11/03/20 08:15 94 Mechanical Ventilator 35 11/03/20 08:08 69 24 131/62 11/03/20 08:00 73 24 139/62 (87) 94 Mechanical Ventilator 40.00 11/03/20 07:42 36.3 11/03/20 07:00 69 23 139/62 (87) 94 Mechanical Ventilator 40.00 11/03/20 06:53 69 24 95 40 11/03/20 06:40 68 11/03/20 06:25 40.00 11/03/20 06:00 68 24 136/64 (88) 97 Mechanical Ventilator 45.00 11/03/20 05:00 70 24 149/67 (94) 94 Mechanical Ventilator 45.00 I & O 11/04/20 07:00 Intake Total 1090 ml Output Total 1050 ml Balance 40 ml Height & Weight Height: 5'9.00" Weight: 230lbs. 0.0oz. 104.562335bz; 39.26 BMI Method:Stated General Appearance: No Apparent Distress, WD/WN, Chronically ill HEENT: PERRL/EOMI, Normal ENT Inspection, Pharynx Normal, Moist Mucous Membran es Neck: Full Range of Motion, Normal Inspection, Non Tender Respiratory: Lungs Clear, No Respiratory Distress Cardiovascular: Regular Rate, Rhythm Capillary Refill: Less Than 3 Seconds Extremity: Normal Capillary Refill, Normal Inspection, Normal Range of Motion, Non Tender, No Calf Tenderness, No Pedal Edema Neurologic/Psychiatric: Alert, Oriented x3, No Motor/Sensory Deficits, Normal Mood/Affect Skin: Normal Color, Warm/Dry Lymphatic: No Adenopathy Results Lab Laboratory Tests 11/03/20 03:15 11/04/20 02:45 Assessment/Plan Assessment/Plan Acute respiratory failure with COVID and ARDS -Pt intubated 11/01 -Vent 400/24/8 35% -Decrease PEEP to 5 and hold proning -Possible weaning starting tomorrow if pt is still improving -Versed at 10 and Fentanyl at 150 currently -Sedation vacation this AM. Once pt is awake and following commands restart sedation at 1/2 the current dose. -Repeat PCT -CXR shows worsening left infiltration -Repeat Sputum culture -Start TF per dietary recommendations -OG tube is high. Advance and repeat CXR. -ABG reviewed -s/p Decadron -CVP -Did not qualify for Remdesivir -Proning -IVF are SL Hypertryglycerides -Hold Propofol PNA -Zosyn -Knight cultures pending UTI with MSSA DM -Monitor -Levemir and scheduled Novolog -Decrease Levemir to 50 units BID Anemia -Monitor CAD -Monitor Morbid obesity Breast cancer hx DVT/Gi ppx -Protonix -Lovenox-- theraputic dosing CHENTE DENISE DO Nov 04, 2020 04:12
[2020-11-04] MEDS: PIPERACILLIN/TAZOBACTAM (BULK) 4.5 GM in NS (IVPB) 100 ML IV SCH ×3 (04:31→20:45)
[2020-11-04] MEDS: POTASSIUM CL 10MEQ/50ML IVPB 50 ML IV SCH (06:32)
[2020-11-04] MEDS: CATHETER FLUSH 10 ML SYR IV SCH ×3 (06:32→21:08)
[2020-11-04] MEDS: MAGNESIUM 1 GM/100 ML IVPB 100 ML IV SCH (06:33)
[2020-11-04] MEDS: GABAPENTIN 300 MG (NEURONTIN) CAP PO SCH ×3 (06:33→20:47)
[2020-11-04] MEDS: KCL 20 MEQ TAB (K-DUR) PO SCH (06:33)
--- NOTE | 2020-11-04 07:39 | Diagnostic Imaging Report ---
INDICATION: Evaluate tube placement. Comparison is made with prior examination from 11/04/2020. FINDINGS: The heart size is normal. There are bibasilar and left upper lobe infiltrates. There is some mild venous congestion. There is no pneumothorax. ET, NG and PICC line are in satisfactory position. IMPRESSION: Bibasilar and left upper lobe pulmonary infiltrates suspect for pneumonia. There also appears to be some mild central pulmonary venous congestion. Dictated by: Dictated on workstation # [id number]
--- NOTE | 2020-11-04 08:59 | Diagnostic Imaging Report ---
EXAMINATION: Chest radiograph, portable AP view. DATE: 11/04/2020 4:35 AM INDICATION: 65-year-old female, respiratory failure. COMPARISON: November 03, 2020. FINDINGS: The endotracheal tube is approximately 3.9 cm above the raz. The nasogastric tube tip is at the level of the distal esophagus. The right-sided PIC line overlies the lower SVC. Heart size and mediastinal contours are unchanged. There is no identified pneumothorax. There is multifocal bilateral lung consolidation which is unchanged. IMPRESSION: 1. Nasogastric tube tip at the level of the distal esophagus. Recommend advancement. 2. Unchanged multifocal nonspecific bilateral lung consolidation. Dictated by: Dictated on workstation # [id number]
[2020-11-04] MEDS ORDERED: METOCLOPRAMIDE INJ 10 MG/2 ML (REGLAN) IVP ONE (09:00)
[2020-11-04] MEDS: ENOXAPARIN 300 MG/3 ML (LOVENOX) MULTI-DOSE VIAL SQ SCH ×2 (09:03→20:45)
[2020-11-04] MEDS: D5W 1000 ML IV SOLUTION 1,000 ML IV SCH ×2 (09:04→20:48)
--- NOTE | 2020-11-04 09:27 | NUR ---
ATTEMPTED TO ADVANCE OGT 3CM PER DR DENISE ORDER. PATIENT BEGAN THRASHING IN BED, PULLING AT RESTRAINTS AND TURNING HEAD AWAY. INCREASED SEDATION AND WILL TRY AGAIN LATER.
[2020-11-04] MEDS: ASPIRIN E.C. 81 MG (ECOTRIN) TAB PO SCH (09:35)
[2020-11-04] MEDS: amLODIPine 5 MG (NORVASC) TAB PO SCH (09:35)
[2020-11-04] MEDS: PANTOPRAZOLE 40 MG (PROTONIX) TAB PO SCH (09:35)
[2020-11-04] MEDS: OMEGA 3 (FISH OIL) 1000 MG CAP PO SCH ×3 (09:35→18:21)
[2020-11-04] MEDS: FERROUS SULF 325 MG (IRON) TAB PO SCH ×3 (09:36→18:21)
[2020-11-04] MEDS: MIDAZOLAM DRIP PRE-MIX 100 ML IV SCH ×2 (09:36→20:50)
[2020-11-04] MEDS: meTOprolol TARTRATE 25 MG (LOPRESSOR) TABLET PO SCH ×2 (09:36→20:53)
--- NOTE | 2020-11-04 09:45 | NUR ---
ADVANCED OGT 3 CM. POP AUSCULTATION CONFIRMED PLACEMENT. MEDS AND TUBE FEED BOLUS GIVEN WITHOUT DIFFICULTIES.
[2020-11-04] MEDS: VITAMIN D3 10 MCG (400 UNITS) TABLET PO SCH (13:31)
[2020-11-04] MEDS: FOLIC ACID 1 MG TAB PO SCH (13:31)
--- NOTE | 2020-11-04 15:14 | NUR ---
SPOKE WITH PATIENT BULL CORNEJO AND UPDATED ON PATIENT CONDITION. ALL QUESTIONS ANSWERED. ATTEMPTED TO CALL PATIENTS DAUGHTER KYLE TO CONFIRM [employer] MEETINGSOHA FOR HER.
--- NOTE | 2020-11-04 17:42 | NUR ---
Note pt had tolerance issues d/t dislodged OGT. Note tube was advanced earlier today. Note pt currently receiving Pulmocare via 60ml bolus feeds q4h with 30ml free water flushes before/after each bolus. Note pt is tolerating TF well at this time. Recommend continue to increase TF by 30ml q8h as tolerated toward goal of 180ml bolus feeds q4h. Will continue to follow and reassess as pt needs, intake, and status change. Roosevelt Medina, MS RD LD
[2020-11-04] MEDS: FENOFIBRATE 134 MG (LOFIBRA) CAPSULE PO SCH (20:45)
[2020-11-05] VITALS (76 sets, daily range): BP systolic 131–160; BP diastolic 66–83
[2020-11-05] MEDS: RT-ALBUTEROL INHALER HFA (VENTOLIN HFA) 18 GM IH SCH ×6 (03:08→23:21)
[2020-11-05 03:13] LABS: ABG OXYGEN SATURATION 95 % (94-100); ABG PCO2 44 MMHG (35-45); ABG PH 7.39 (7.37-7.43); ABG PO2 78 MMHG (79-93); ABG TCO2 27.8 MMOL/L (21.0-31.0); BASOPHILS # (AUTO) 0.1 10^3/uL (0.0-0.1); BASOPHILS % (AUTO) 1 % (0-10); EOSINOPHILS # (AUTO) 0.2 10^3/uL (0.0-0.3); EOSINOPHILS % (AUTO) 3 % (0-10); HEMATOCRIT 31 % (35-52); HEMOGLOBIN 9.5 g/dL (11.5-16.0); LYMPHOCYTES # (AUTO) 0.8 10^3/uL (1.0-4.0); LYMPHOCYTES % (AUTO) 10 % (12-44); MEAN CORPUSCULAR HEMOGLOBIN 27 pg (25-34); MEAN CORPUSCULAR HGB CONC 31 g/dL (32-36); MEAN CORPUSCULAR VOLUME 88 fL (80-99); MEAN PLATELET VOLUME 12.6 fL (9.0-12.2); MONOCYTES # (AUTO) 0.5 10^3/uL (0.0-1.0); MONOCYTES % (AUTO) 6 % (0-12); NEUTROPHILS # (AUTO) 5.7 10^3/uL (1.8-7.8); NEUTROPHILS % (AUTO) 73 % (42-75); PLATELET COUNT 289 10^3/uL (130-400); WHITE BLOOD COUNT 7.8 10^3/uL (4.3-11.0)
[2020-11-05 03:16] LABS: ALLENS TEST YES-POS; INSPIRED O2 50%; PATIENT TEMP 36.9; VENTILATOR YES
[2020-11-05 03:35] LABS: CREATININE SERUM 0.96 MG/DL (0.60-1.30); MAGNESIUM 1.8 MG/DL (1.6-2.4); PHOSPHORUS 2.4 MG/DL (2.3-4.7); POTASSIUM 4.1 MMOL/L (3.6-5.0)
[2020-11-05] MEDS: PIPERACILLIN/TAZOBACTAM (BULK) 4.5 GM in NS (IVPB) 100 ML IV SCH ×2 (04:30→14:17)
[2020-11-05] MEDS: KCL 20 MEQ TAB (K-DUR) PO SCH (06:00)
[2020-11-05] MEDS: inSUlin ASPART (NovoLOG) 1 UNIT/0.01 ML (CHARGE PER UNIT) SC SCH ×4 (06:00→17:47)
[2020-11-05] MEDS: MAGNESIUM 1 GM/100 ML IVPB 100 ML IV SCH (06:00)
[2020-11-05] MEDS: GABAPENTIN 300 MG (NEURONTIN) CAP PO SCH ×3 (06:00→22:47)
[2020-11-05] MEDS: fentaNYL DRIP PRE-MIX 250 ML IV SCH ×3 (06:00→17:46)
[2020-11-05] MEDS: POTASSIUM CL 10MEQ/50ML IVPB 50 ML IV SCH (06:01)
[2020-11-05] MEDS: CATHETER FLUSH 10 ML SYR IV SCH ×3 (06:01→22:48)
[2020-11-05] MEDS ORDERED: PANTOPRAZOLE 40 MG (PROTONIX) VIAL ONE (07:18)
--- NOTE | 2020-11-05 08:00 | Diagnostic Imaging Report ---
EXAMINATION: Chest 1 view HISTORY: COVID positive. Respiratory failure. Followup. COMPARISON: 11/04/2020. FINDINGS: Stable configuration of the endotracheal tube, enteric tube, and right PICC. Increasing opacities are visualized in the right lung base. Otherwise, stable interstitial and alveolar opacities are seen throughout the lungs. No large pleural effusion or pneumothorax is seen. Stable cardiac silhouette. IMPRESSION: 1. Increasing opacities in the right lung base with stable diffuse interstitial and alveolar opacities throughout the remainder of the lungs. 2. Stable support devices. Dictated by: Dictated on workstation # [id number]
[2020-11-05] MEDS: ASPIRIN E.C. 81 MG (ECOTRIN) TAB PO SCH (08:40)
[2020-11-05] MEDS: amLODIPine 5 MG (NORVASC) TAB PO SCH (08:40)
[2020-11-05] MEDS: OMEGA 3 (FISH OIL) 1000 MG CAP PO SCH ×3 (08:40→17:46)
[2020-11-05] MEDS: meTOprolol TARTRATE 25 MG (LOPRESSOR) TABLET PO SCH ×2 (08:40→22:46)
[2020-11-05] MEDS: PANTOPRAZOLE 40 MG (PROTONIX) TAB PO SCH (08:40)
[2020-11-05] MEDS: FERROUS SULF 325 MG (IRON) TAB PO SCH ×3 (08:40→17:45)
[2020-11-05] MEDS: ENOXAPARIN 300 MG/3 ML (LOVENOX) MULTI-DOSE VIAL SQ SCH ×2 (08:42→23:00)
--- NOTE | 2020-11-05 09:40 | NUR ---
Risk Officer offered prayer at bedside for Divine compassion and strength. Pt non-responsive.
--- NOTE | 2020-11-05 10:30 | NUR ---
CM/SS: Notified by DULCE Navarro that it was ok to send information/ referral to [facility], [place], [place]. Referral packet sent to [place] via fax - [phone].
[2020-11-05] MEDS: D5W 1000 ML IV SOLUTION 1,000 ML IV SCH (11:14)
--- NOTE | 2020-11-05 11:14 | Progress Note - Hospitalist ---
PEG TONY, 11/05/20 1114: Subjective HPI/CC On Admission CC: Dyspnea HPI: This is a 65yoWF clinic pt of Dr. Jules who has a hx of breast cancer who presented for SOB and chest pain found to have Covid at [facility] and high risk for decompensation so she was admitted for Remdesivir, Dexamethasone, Lovenox, and protocol treatment. Subjective/Events-last exam Ms. Quinones was seen and examined by Dr. Toledo in the ICU this morning for acute hypoxic respiratory failure secondary to COVID19 infection. She is currently mechanically ventilated with FiO2 of 50% and PEEP 5. Is sedated with fentanyl. I&O net +8L over admission. Will consider [place] consult for further weaning. Objective Exam Vital Signs Vital Signs Date Time Temp Pulse Resp B/P (MAP) Pulse Ox O2 Delivery O2 Flow Rate FiO2 11/05/20 10:16 73 24 92 50 11/05/20 10:00 147/73 (97) Mechanical Ventilator 55.00 11/05/20 07:48 37.6 Capillary Refill : Less Than 3 Seconds Respiratory: Lungs Clear, Normal Breath Sounds Cardiovascular: Regular Rate, Rhythm Gastrointestinal: Soft Skin: Normal Color, Warm/Dry, Other (no breakdown noted on exam) Results/Procedures Lab Laboratory Tests 11/05/20 03:01 Patient resulted labs reviewed. Assessment/Plan Assessment and Plan Assess & Plan/Chief Complaint Acute respiratory failure secondary to COVID19 infection and ARDS * Pt intubated 11/01 and sedated with fentanyl currently; stopped propofol secondary to patient's hypertriglyceridemia * PEEP at 5, FiO2 50% * Consider Lofall consult * CXR shows worsening left infiltration - on zosyn day 8 * Continue tube feeds * Decadron completed 11/02 * Convalescent plasma x2 on 10/27 * Does not qualify for remdesivir * Proning * IVF are SL Hypertriglyceridemia * Hold Propofol Secondary pneumonia * Zosyn day 8 * ET tube sputum sample pending UTI with MSSA * Completed treatment with linezolid DM * Monitor * Levemir and scheduled Novolog, on SSI B * Continue Levemir to 50 units BID Anemia * Monitor CAD * Monitor Morbid obesity Breast cancer hx Diet: pulmocare q4h DVT/GI ppx: protonix; therapeutic dose lovenox DNR Clinical Quality Measures DVT/VTE Risk/Contraindication: Risk Factor Score Per Nursin RFS Level Per Nursing on Admit: 3=High LISA TOLEDO MD 11/05/20 1520: Subjective HPI/CC On Admission Date Seen by Provider: Nov 07, 2020 Time Seen by Provider: 11:00 Objective Exam General Appearance: Chronically ill Supervisory-Addendum Brief Verification & Attestation Participated in pt care: history, MDM, physical Personally performed: exam, history, MDM Care discussed with: Medical Student Procedures: n/a Verification and Attestation of Medical Student E/M Service A medical student performed and documented this service in my presence. I reviewed and verified all information documented by the medical student and made modifications to such information, when appropriate. I personally performed the physical exam and medical decision making. Lisa Toledo, Nov 06, 2020,18:10 History reviewed with student exam made by myself and concur with current documentation PEG TONY, Nov 05, 2020 11:14 LISA TOLEDO MD Nov 05, 2020 15:20
--- NOTE | 2020-11-05 13:09 | NUR ---
CM/SS: [facility] denied pt for Admission due to payor source.
[2020-11-05] MEDS: FOLIC ACID 1 MG TAB PO SCH (14:17)
[2020-11-05] MEDS: VITAMIN D3 10 MCG (400 UNITS) TABLET PO SCH (14:18)
--- NOTE | 2020-11-05 15:03 | NUR ---
Note pt is currently receiving TF of Pulmocare via 60ml bolus feeds q4h, with 30ml free water flushes before/after each bolus feed. Note pt is tolerating well. Continue to increase TF by 30ml q8h as tolerated toward goal of 180ml bolus feeds q4h. Will continue to follow and reassess as pt needs, intake, and status change. Roosevelt Medina, MS RD [phone] cell
[2020-11-05] MEDS: MIDAZOLAM DRIP PRE-MIX 100 ML IV SCH (17:46)
[2020-11-05] MEDS: FENOFIBRATE 134 MG (LOFIBRA) CAPSULE PO SCH (22:47)
[2020-11-05] MEDS ORDERED: ENOXAPARIN 60 MG/0.6 ML (LOVENOX) SYR ONE (22:52)
[2020-11-06] VITALS (30 sets, daily range): BP systolic 136–180; BP diastolic 66–96
[2020-11-06] MEDS: D5W 1000 ML IV SOLUTION 1,000 ML IV SCH ×2 (00:10→14:51)
[2020-11-06] MEDS: inSUlin ASPART (NovoLOG) 1 UNIT/0.01 ML (CHARGE PER UNIT) SC SCH ×4 (00:34→17:43)
[2020-11-06] MEDS: fentaNYL DRIP PRE-MIX 250 ML IV SCH ×4 (00:34→20:04)
[2020-11-06] MEDS: RT-ALBUTEROL INHALER HFA (VENTOLIN HFA) 18 GM IH SCH ×6 (02:20→21:34)
[2020-11-06] MEDS: MIDAZOLAM DRIP PRE-MIX 100 ML IV SCH ×2 (03:31→12:54)
[2020-11-06 04:00] LABS: ABG BASE EXCESS 1.1 MMOL/L (-2.5-2.5); ABG OXYGEN SATURATION 80 % (94-100); ABG PCO2 48 MMHG (35-45); ABG PH 7.35 (7.37-7.43); ABG PO2 49 MMHG (79-93); ABG TCO2 27.6 MMOL/L (21.0-31.0); ALLENS TEST POSITIVE; BASOPHILS # (AUTO) 0.1 10^3/uL (0.0-0.1); BASOPHILS % (AUTO) 1 % (0-10); EOSINOPHILS # (AUTO) 0.1 10^3/uL (0.0-0.3); EOSINOPHILS % (AUTO) 2 % (0-10); HEMATOCRIT 29 % (35-52); HEMOGLOBIN 8.9 g/dL (11.5-16.0); INSPIRED O2 40; LYMPHOCYTES % (AUTO) 13 % (12-44); MEAN CORPUSCULAR HEMOGLOBIN 27 pg (25-34); MEAN CORPUSCULAR HGB CONC 30 g/dL (32-36); MEAN CORPUSCULAR VOLUME 89 fL (80-99); MEAN PLATELET VOLUME 12.2 fL (9.0-12.2); MONOCYTES # (AUTO) 0.5 10^3/uL (0.0-1.0); MONOCYTES % (AUTO) 7 % (0-12); NEUTROPHILS # (AUTO) 4.9 10^3/uL (1.8-7.8); NEUTROPHILS % (AUTO) 67 % (42-75); PLATELET COUNT 244 10^3/uL (130-400); VENTILATOR YES; WHITE BLOOD COUNT 7.3 10^3/uL (4.3-11.0)
[2020-11-06 04:01] LABS: PATIENT TEMP 36.6
[2020-11-06 04:14] LABS: POTASSIUM 4.2 MMOL/L (3.6-5.0)
[2020-11-06 04:15] LABS: CALCIUM 8.9 MG/DL (8.5-10.1)
[2020-11-06 04:19] LABS: PHOSPHORUS 2.6 MG/DL (2.3-4.7)
[2020-11-06 04:22] LABS: MAGNESIUM 1.8 MG/DL (1.6-2.4)
[2020-11-06] MEDS: POTASSIUM CL 10MEQ/50ML IVPB 50 ML IV SCH (06:12)
[2020-11-06] MEDS: MAGNESIUM 1 GM/100 ML IVPB 100 ML IV SCH (06:12)
[2020-11-06] MEDS: KCL 20 MEQ TAB (K-DUR) PO SCH (06:12)
[2020-11-06] MEDS: CATHETER FLUSH 10 ML SYR IV SCH ×3 (06:55→20:04)
[2020-11-06] MEDS: GABAPENTIN 300 MG (NEURONTIN) CAP PO SCH ×3 (06:55→20:01)
--- NOTE | 2020-11-06 08:22 | Diagnostic Imaging Report ---
INDICATION: Respiratory failure, COVID infection AP view of chest is obtained with comparison made to the study of one day earlier. There is similar mixed interstitial and alveolar densities throughout the lungs with blunting of costophrenic sulci. No pneumothorax is identified. Findings have not significantly changed. Endotracheal tube is in place with tip just below the thoracic inlet. IMPRESSION: Bilateral pulmonary infiltrate and pleural fluid are similar when compared to previous study. Dictated by: Dictated on workstation # [id number]
[2020-11-06] MEDS: meTOprolol TARTRATE 25 MG (LOPRESSOR) TABLET PO SCH ×2 (08:39→20:01)
[2020-11-06] MEDS: PANTOPRAZOLE 40 MG (PROTONIX) TAB PO SCH (08:39)
[2020-11-06] MEDS: FERROUS SULF 325 MG (IRON) TAB PO SCH ×3 (08:39→17:19)
[2020-11-06] MEDS: amLODIPine 5 MG (NORVASC) TAB PO SCH (08:39)
[2020-11-06] MEDS: ASPIRIN E.C. 81 MG (ECOTRIN) TAB PO SCH (08:39)
[2020-11-06] MEDS: OMEGA 3 (FISH OIL) 1000 MG CAP PO SCH ×3 (08:39→17:19)
[2020-11-06] MEDS: ENOXAPARIN 300 MG/3 ML (LOVENOX) MULTI-DOSE VIAL SQ SCH ×2 (09:18→20:01)
--- NOTE | 2020-11-06 11:46 | Progress Note - Hospitalist ---
JENNIJaymiePEG DICKINSON, 11/06/20 1146: Subjective HPI/CC On Admission Time Seen by Provider: 09:10 CC: Dyspnea HPI: This is a 65yoWF clinic pt of Dr. Jules who has a hx of breast cancer who presented for SOB and chest pain found to have Covid at [facility] and high risk for decompensation so she was admitted for Remdesivir, Dexamethasone, Lovenox, and protocol treatment. Subjective/Events-last exam Ms. Quinones was seen and examined by Dr. Toledo in the ICU for acute hypoxic respiratory failure secondary to COVID19 infection. Patient was declined from [place] transfer. Will attempt sedation vacation today. Objective Exam Vital Signs Vital Signs Date Time Temp Pulse Resp B/P (MAP) Pulse Ox O2 Delivery O2 Flow Rate FiO2 11/06/20 11:34 36.9 11/06/20 10:56 74 24 92 40 11/06/20 10:00 163/73 (103) Mechanical Ventilator 40.00 Capillary Refill : Less Than 3 Seconds General Appearance: Other (intubated) Respiratory: Lungs Clear, Normal Breath Sounds Cardiovascular: Regular Rate, Rhythm, No Murmur, Normal Peripheral Pulses Gastrointestinal: Normal Bowel Sounds, Soft Extremity: Pedal Edema Results/Procedures Lab Laboratory Tests 11/06/20 03:43 Patient resulted labs reviewed. Assessment/Plan Assessment and Plan Assess & Plan/Chief Complaint Acute respiratory failure secondary to COVID19 infection and ARDS * Pt intubated 11/01 and sedated with fentanyl currently * PEEP at 8, FiO2 40%, peak pressure 25 * Will attempt sedation vacation today, 11/06 * [place] denied transfer * CXR stable from prior - on zosyn day 9 * Continue tube feeds * Decadron completed 11/02 * Convalescent plasma x2 on 10/27 * Does not qualify for remdesivir * Proning Hypertriglyceridemia * Hold Propofol Secondary pneumonia * Zosyn day 9 * ET tube sputum sample pending UTI with MSSA * Completed treatment with linezolid DM * Monitor * Levemir and scheduled Novolog, on SSI B * Continue Levemir to 50 units BID Anemia * Monitor CAD * Monitor Morbid obesity Breast cancer hx Diet: pulmocare q4h DVT/GI ppx: protonix; therapeutic dose lovenox DNR Critical Care: Critically Ill Patient Clinical Quality Measures DVT/VTE Risk/Contraindication: Risk Factor Score Per Nursin RFS Level Per Nursing on Admit: 3=High LISA TOLEDO MD 11/06/20 1355: Subjective HPI/CC On Admission Date Seen by Provider: Nov 06, 2020 Objective Exam General Appearance: Chronically ill, Obese Respiratory: Lungs Clear, Normal Breath Sounds, No Accessory Muscle Use Cardiovascular: Regular Rate, Rhythm, No Murmur, Normal Peripheral Pulses Gastrointestinal: Normal Bowel Sounds, Soft Extremity: Pedal Edema Assessment/Plan Assessment and Plan Critical Care: Ventilator Management Supervisory-Addendum Brief Verification & Attestation Participated in pt care: history, MDM, physical Personally performed: exam, history, MDM Care discussed with: Medical Student, other Procedures: n/a Results interpretation: Verified all documentation (Nurse) Patient very stable we will begin sedation vacation and possibly attempt weaning trials tomorrow.Verification and Attestation of Medical Student E/M Service A medical student performed and documented this service in my presence. I reviewed and verified all information documented by the medical student and made modifications to such information, when appropriate. I personally performed the physical exam and medical decision making. Lisa Toledo, Nov 06, 2020,13:55 PEG TONY, Nov 06, 2020 11:46 LISA TOLEDO MD Nov 06, 2020 13:55
[2020-11-06] MEDS: FOLIC ACID 1 MG TAB PO SCH (13:00)
[2020-11-06] MEDS: VITAMIN D3 10 MCG (400 UNITS) TABLET PO SCH (13:04)
[2020-11-06] MEDS ORDERED: NS IV 1000 ML 1,000 ML IV SCH (14:15)
--- NOTE | 2020-11-06 14:32 | NUR ---
E- ICU NOTIFIED OF PT'S DECREASED URINE OUTPUT OF 50CC. NEW ORDERS RECEIVED TO GIVE 1 LITER BOLUS NS.
--- NOTE | 2020-11-06 18:08 | NUR ---
BLADDER SCAN ON PT SHOWED [phone], NEW [place] CATHETER PLACED USING ASEPTIC TECHNIQUE, IMMEDIATE RETURN OF DARK MORENO URINE NOTED.
--- NOTE | 2020-11-06 18:35 | NUR ---
UPDATED PT'S POINT OF CONTACT
[2020-11-06] MEDS: FENOFIBRATE 134 MG (LOFIBRA) CAPSULE PO SCH (20:01)
[2020-11-07] VITALS (29 sets, daily range): BP systolic 113–193; BP diastolic 66–95
[2020-11-07] MEDS: MIDAZOLAM DRIP PRE-MIX 100 ML IV SCH ×2 (01:05→22:26)
[2020-11-07] MEDS: inSUlin ASPART (NovoLOG) 1 UNIT/0.01 ML (CHARGE PER UNIT) SC SCH ×5 (01:06→23:23)
[2020-11-07] MEDS: RT-ALBUTEROL INHALER HFA (VENTOLIN HFA) 18 GM IH SCH ×5 (01:37→22:19)
[2020-11-07 05:28] LABS: ABG BASE EXCESS 1.8 MMOL/L (-2.5-2.5); ABG OXYGEN SATURATION 59 % (94-100); ABG PCO2 49 MMHG (35-45); ABG PH 7.36 (7.37-7.43); ABG PO2 40 MMHG (79-93); ABG TCO2 28.4 MMOL/L (21.0-31.0); ALLENS TEST POSITIVE; INSPIRED O2 40
[2020-11-07 05:29] LABS: PATIENT TEMP 36.6; VENTILATOR YES
[2020-11-07 05:34] LABS: BASOPHILS % (AUTO) 0 % (0-10); EOSINOPHILS # (AUTO) 0.2 10^3/uL (0.0-0.3); EOSINOPHILS % (AUTO) 2 % (0-10); HEMATOCRIT 32 % (35-52); HEMOGLOBIN 9.4 g/dL (11.5-16.0); LYMPHOCYTES % (AUTO) 10 % (12-44); MEAN CORPUSCULAR HEMOGLOBIN 27 pg (25-34); MEAN CORPUSCULAR HGB CONC 30 g/dL (32-36); MEAN CORPUSCULAR VOLUME 91 fL (80-99); MEAN PLATELET VOLUME 13.2 fL (9.0-12.2); MONOCYTES # (AUTO) 0.6 10^3/uL (0.0-1.0); MONOCYTES % (AUTO) 7 % (0-12); NEUTROPHILS # (AUTO) 7.1 10^3/uL (1.8-7.8); NEUTROPHILS % (AUTO) 74 % (42-75); PLATELET COUNT 241 10^3/uL (130-400); WHITE BLOOD COUNT 9.6 10^3/uL (4.3-11.0)
[2020-11-07] MEDS: KCL 20 MEQ TAB (K-DUR) PO SCH (06:32)
[2020-11-07] MEDS: POTASSIUM CL 10MEQ/50ML IVPB 50 ML IV SCH (06:32)
[2020-11-07] MEDS: CATHETER FLUSH 10 ML SYR IV SCH ×3 (06:32→20:05)
[2020-11-07] MEDS: MAGNESIUM 1 GM/100 ML IVPB 100 ML IV SCH (06:32)
[2020-11-07 07:19] LABS: CALCIUM 9.3 MG/DL (8.5-10.1); CREATININE SERUM 0.95 MG/DL (0.60-1.30); MAGNESIUM 1.7 MG/DL (1.6-2.4); PHOSPHORUS 2.7 MG/DL (2.3-4.7); POTASSIUM 4.8 MMOL/L (3.6-5.0)
[2020-11-07] MEDS: ASPIRIN E.C. 81 MG (ECOTRIN) TAB PO SCH (08:03)
[2020-11-07] MEDS: ENOXAPARIN 300 MG/3 ML (LOVENOX) MULTI-DOSE VIAL SQ SCH ×2 (08:03→20:04)
[2020-11-07] MEDS: meTOprolol TARTRATE 25 MG (LOPRESSOR) TABLET PO SCH ×2 (08:04→20:04)
[2020-11-07] MEDS: PANTOPRAZOLE 40 MG (PROTONIX) TAB PO SCH (08:04)
[2020-11-07] MEDS: GABAPENTIN 300 MG (NEURONTIN) CAP PO SCH ×3 (08:04→20:05)
[2020-11-07] MEDS: FERROUS SULF 325 MG (IRON) TAB PO SCH ×3 (08:04→17:06)
[2020-11-07] MEDS: OMEGA 3 (FISH OIL) 1000 MG CAP PO SCH ×3 (08:04→17:06)
[2020-11-07] MEDS: amLODIPine 5 MG (NORVASC) TAB PO SCH (08:04)
[2020-11-07] MEDS: ACETAMINOPHEN 500 MG TAB (TYLENOL) PO PRN (08:05)
[2020-11-07] MEDS: fentaNYL DRIP PRE-MIX 250 ML IV SCH ×3 (08:29→23:54)
--- NOTE | 2020-11-07 10:02 | Diagnostic Imaging Report ---
CLINICAL INDICATION: Patient is Covid positive. Patient on ventilator. EXAM: Portable chest x-ray upright view. COMPARISONS: Chest x-ray dated 11/06/2020. FINDINGS: ET tube and feeding tube again seen in stable good position. There is interval improved aeration of both lung bases. There is residual mild peripheral airspace opacities and bibasilar airspace opacities. There is interval decreased size of the previous left pleural effusion with minimal amount remaining. There is no pneumothorax. Right PICC line in stable position. Cardiac silhouette and pulmonary vasculature is within normal limits. IMPRESSION: 1: There is interval improved aeration of both lungs. Residual mild peripheral bibasilar infiltrates. 2: There is a minimal sized left pleural effusion which has decreased in the interim. Dictated by: Dictated on workstation # [id number]
--- NOTE | 2020-11-07 10:03 | NUR ---
LATE ENTRY: ASSESSMENT COMPLETE SEE FLOW SHEET, PT NOTED TO BE HTN BP READINGS NOTED 190/110'S, PT ALSO TACHYPNEIC AND TACHYCARDIC. SEDATION RESTARTED AT LOWER RATES - SEE IV SPREADSHEET, PT ALSO NOTED TO HAVE TEMP TYLENOL GIVEN. PT';S OG TUBE NOTED TO HAVE RESIDUAL MEDICATIONS IN IT, AFTER SEVERAL ATTEMPTS TO FLUSH MEDICATIONS, WITH NO SUCCESS NEW OG TUBE PLACED, PLACEMENT VERIFIED BY AUSCULTATION. WILL CONTINUE TO MONITOR.
--- NOTE | 2020-11-07 11:02 | Progress Note - Hospitalist ---
ARTEAGAJaymieTEENAPEG, 11/07/20 1102: Subjective HPI/CC On Admission Time Seen by Provider: 09:52 Subjective/Events-last exam Ms. Quinones was seen and examined by Dr. Toledo in the ICU for acute respiratory failure secondary to COVID19 infection. She is mechanically intubated with FiO2 40, PEEP 8, pressure 20-30, RR 35. Sedation vacation trialled yesterday but stopped due to hypertension. She was responsive to painful stimuli during this time. She spiked a fever overnight, will order U/A and CXR. Objective Exam Vital Signs Vital Signs Date Time Temp Pulse Resp B/P (MAP) Pulse Ox O2 Delivery O2 Flow Rate FiO2 11/07/20 11:00 85 23 127/67 (87) 96 Mechanical Ventilator 40.00 11/07/20 10:13 40 11/07/20 09:54 37.1 Capillary Refill : Less Than 3 Seconds General Appearance: Other (intubated) Respiratory: Lungs Clear Cardiovascular: Regular Rate, Rhythm, Normal Peripheral Pulses Gastrointestinal: Normal Bowel Sounds, Soft Results/Procedures Lab Laboratory Tests 11/07/20 05:00 Patient resulted labs reviewed. Assessment/Plan Assessment and Plan Assess & Plan/Chief Complaint Acute respiratory failure secondary to COVID19 infection and ARDS Fever * Pt intubated 11/01 and sedated with fentanyl and versed, will slowly wean sedation * PEEP at 8, FiO2 40%, peak pressure 20-30 * [place] denied transfer * Will order repeat CXR and U/A to evaluate cause of fever - last dose of zosyn 11/05 * Continue tube feeds * Decadron completed 11/02 * Convalescent plasma x2 on 10/27 * Does not qualify for remdesivir * Proning Hypertriglyceridemia * Hold Propofol Secondary pneumonia * Zosyn day 10 * Repeat CXR UTI with MSSA * Completed treatment with linezolid * Fever - will repeat U/A DM * Monitor * Levemir and scheduled Novolog, on SSI B * Continue Levemir to 50 units BID Anemia * Monitor CAD * Monitor Morbid obesity Breast cancer hx Diet: pulmocare q4h DVT/GI ppx: protonix; therapeutic dose lovenox DNR Critical Care: Critically Ill Patient Clinical Quality Measures DVT/VTE Risk/Contraindication: Risk Factor Score Per Nursin RFS Level Per Nursing on Admit: 3=High LISA TOLEDO MD 11/07/20 1135: Supervisory-Addendum Brief Verification & Attestation Participated in pt care: history, MDM, physical Personally performed: exam, history, MDM Care discussed with: Medical Student, other (Respiratory therapist and RN) Procedures: n/a Results interpretation: Verified all documentation Patient has a blood gas that shows a PO2 of 40 however oxygen saturations have been 96%. Which is inconsistent with the blood gas reading. The patient has become very tachypneic with decreased sedation with severe hypertension. Will decrease sedation but not discontinue and try and wean off again. We will reculture the patient and culture the urine as she did have a fever but her wh ite count is normal. She is off all antibiotics currentlyVerification and Attestation of Medical Student E/M Service A medical student performed and documented this service in my presence. I reviewed and verified all information documented by the medical student and made modifications to such information, when appropriate. I personally performed the physical exam and medical decision making. Lisa Toledo, Nov 07, 2020,11:34 PEG TONY, Nov 07, 2020 11:02 LISA TOLEDO MD Nov 07, 2020 11:35
[2020-11-07] MEDS: D5W 1000 ML IV SOLUTION 1,000 ML IV SCH ×2 (11:17→18:23)
[2020-11-07 12:11] LABS: CLARITY,URINE SL CLOUDY; COLOR,URINE YELLOW; GLUCOSE, URINE (UA) 2+ (NEGATIVE); KETONES,URINE NEGATIVE (NEGATIVE); LEUKOCYTE ESTERASE ,URINE NEGATIVE (NEGATIVE); NITRITE,URINE NEGATIVE (NEGATIVE); PH,URINE 5.5 (5-9); PROTEIN,URINE TRACE (NEGATIVE)
[2020-11-07 12:26] LABS: BACTERIA,URINE NEGATIVE /HPF; BILIRUBIN,URINE 1+ (NEGATIVE); RBC,URINE 25-50 /HPF; SQUAMOUS EPITHELIAL CELL,UR 0-2 /HPF; YEAST,URINE MODERATE /HPF
[2020-11-07] MEDS: VITAMIN D3 10 MCG (400 UNITS) TABLET PO SCH (13:19)
[2020-11-07] MEDS: FOLIC ACID 1 MG TAB PO SCH (13:19)
[2020-11-07] MEDS: FENOFIBRATE 134 MG (LOFIBRA) CAPSULE PO SCH (20:05)
[2020-11-08] VITALS (29 sets, daily range): BP systolic 125–189; BP diastolic 68–86
[2020-11-08] MEDS: RT-ALBUTEROL INHALER HFA (VENTOLIN HFA) 18 GM IH SCH ×6 (02:00→21:10)
[2020-11-08 03:34] LABS: ABG BASE EXCESS 2.2 MMOL/L (-2.5-2.5); ABG OXYGEN SATURATION 94 % (94-100); ABG PCO2 40 MMHG (35-45); ABG PH 7.43 (7.37-7.43); ABG PO2 65 MMHG (79-93); ABG TCO2 27.4 MMOL/L (21.0-31.0)
[2020-11-08 03:35] LABS: ALLENS TEST NEGATIVE; INSPIRED O2 40; PATIENT TEMP 36.9; VENTILATOR YES
[2020-11-08 03:35] LABS: BASOPHILS % (AUTO) 0 % (0-10); EOSINOPHILS # (AUTO) 0.1 10^3/uL (0.0-0.3); EOSINOPHILS % (AUTO) 1 % (0-10); HEMATOCRIT 27 % (35-52); HEMOGLOBIN 8.1 g/dL (11.5-16.0); LYMPHOCYTES # (AUTO) 1.1 10^3/uL (1.0-4.0); LYMPHOCYTES % (AUTO) 11 % (12-44); MEAN CORPUSCULAR HEMOGLOBIN 27 pg (25-34); MEAN CORPUSCULAR HGB CONC 30 g/dL (32-36); MEAN CORPUSCULAR VOLUME 92 fL (80-99); MEAN PLATELET VOLUME 12.6 fL (9.0-12.2); MONOCYTES # (AUTO) 0.6 10^3/uL (0.0-1.0); MONOCYTES % (AUTO) 6 % (0-12); NEUTROPHILS # (AUTO) 7.4 10^3/uL (1.8-7.8); NEUTROPHILS % (AUTO) 76 % (42-75); PLATELET COUNT 202 10^3/uL (130-400); WHITE BLOOD COUNT 9.8 10^3/uL (4.3-11.0)
[2020-11-08 03:52] LABS: POTASSIUM 4.6 MMOL/L (3.6-5.0)
[2020-11-08 03:53] LABS: CALCIUM 9.1 MG/DL (8.5-10.1)
[2020-11-08 03:57] LABS: CREATININE SERUM 0.94 MG/DL (0.60-1.30); PHOSPHORUS 2.4 MG/DL (2.3-4.7)
[2020-11-08 04:00] LABS: MAGNESIUM 1.9 MG/DL (1.6-2.4)
[2020-11-08] MEDS: D5W 1000 ML IV SOLUTION 1,000 ML IV SCH (04:02)
[2020-11-08] MEDS: POTASSIUM CL 10MEQ/50ML IVPB 50 ML IV SCH (04:02)
[2020-11-08] MEDS: KCL 20 MEQ TAB (K-DUR) PO SCH (04:02)
[2020-11-08] MEDS: CATHETER FLUSH 10 ML SYR IV SCH ×3 (04:02→20:14)
[2020-11-08] MEDS: MAGNESIUM 1 GM/100 ML IVPB 100 ML IV SCH (04:02)
--- NOTE | 2020-11-08 05:38 | Pulmonary Progress Note ---
Subjective Time Seen by a Provider: 05:33 Subjective/Events-last exam Pt is sedated on vent. Sepsis Event Evaluation Height, Weight, BMI Height: 5'9.00" Weight: 230lbs. 0.0oz. 104.807430hf; 39.26 BMI Method:Stated Focused Exam Lactate Level 11/07/20 12:00: Lactic Acid Level 1.11 Exam Exam Vital Signs Date Time Temp Pulse Resp B/P (MAP) Pulse Ox O2 Delivery O2 Flow Rate FiO2 11/08/20 02:00 68 24 94 40 11/08/20 01:00 73 11/08/20 00:00 75 26 134/71 (92) 92 Mechanical Ventilator 40.00 11/07/20 23:00 83 24 143/66 (89) 92 Mechanical Ventilator 40.00 11/07/20 22:26 80 24 161/82 11/07/20 22:20 80 24 94 40 11/07/20 22:00 76 23 145/75 (99) 94 Mechanical Ventilator 40.00 11/07/20 21:00 81 23 149/77 (100) 95 Mechanical Ventilator 40.00 11/07/20 20:00 93 Mechanical Ventilator 40 11/07/20 20:00 80 26 142/85 (109) 94 Mechanical Ventilator 40.00 11/07/20 19:21 36.9 11/07/20 19:00 84 11/07/20 19:00 84 24 144/73 (94) 92 Mechanical Ventilator 40.00 11/07/20 18:41 86 25 92 40 11/07/20 18:00 92 26 156/77 (103) 92 Mechanical Ventilator 40.00 11/07/20 17:00 96 23 146/78 (100) 93 Mechanical Ventilator 40.00 11/07/20 16:00 58 16 113/73 (86) 95 Mechanical Ventilator 40.00 11/07/20 15:09 37.4 11/07/20 15:00 84 24 133/69 (90) 95 Mechanical Ventilator 40.00 11/07/20 14:00 84 23 117/69 (85) 95 Mechanical Ventilator 40.00 11/07/20 13:00 81 11/07/20 13:00 80 15 128/66 (80) 94 Mechanical Ventilator 40.00 11/07/20 12:00 80 23 131/67 (87) 97 Mechanical Ventilator 40.00 11/07/20 11:53 37.8 11/07/20 11:00 85 23 127/67 (87) 96 Mechanical Ventilator 40.00 11/07/20 10:13 92 27 96 40 11/07/20 10:00 96 18 127/70 (89) 95 Mechanical Ventilator 40.00 11/07/20 09:54 37.1 11/07/20 09:00 106 26 156/74 (101) 92 Mechanical Ventilator 40.00 11/07/20 08:05 37.9 11/07/20 08:00 112 35 175/87 (116) 92 Mechanical Ventilator 40.00 11/07/20 08:00 92 Mechanical Ventilator 40.00 11/07/20 07:57 37.9 11/07/20 07:46 110 35 90 40 11/07/20 07:00 99 35 193/88 (123) 93 Mechanical Ventilator 40.00 11/07/20 07:00 101 11/07/20 06:00 98 29 164/79 (107) 93 Mechanical Ventilator 40.00 I & O 11/08/20 07:00 Intake Total 1000 ml Output Total 800 ml Balance 200 ml Height & Weight Height: 5'9.00" Weight: 230lbs. 0.0oz. 104.509015su; 39.26 BMI Method:Stated General Appearance: Chronically ill HEENT: PERRL/EOMI, Normal ENT Inspection, Pharynx Normal, Moist Mucous Membranes Neck: Full Range of Motion, Normal Inspection, Non Tender Respiratory: Lungs Clear, Normal Breath Sounds, No Accessory Muscle Use Cardiovascular: Regular Rate, Rhythm, No Murmur, Normal Peripheral Pulses Capillary Refill: Less Than 3 Seconds Extremity: Pedal Edema Neurologic/Psychiatric: Alert, Oriented x3, No Motor/Sensory Deficits, Normal Mood/Affect Skin: Normal Color, Warm/Dry, Other (no breakdown noted on exam) Lymphatic: No Adenopathy Results Lab Laboratory Tests 11/07/20 05:00 11/08/20 03:15 Assessment/Plan Assessment/Plan Acute respiratory failure with COVID and ARDS -Pt intubated 11/01 -Vent 400/24/8 45% -Decrease PEEP to 5 and hold proning -Versed at 5 and Fentanyl at 150 currently -Change Versed to Precedex gtt -Repeat PCT -CXR shows worsening left infiltration -Repeat Sputum culture -Start TF per dietary recommendations -OG tube is high. Advance and repeat CXR. -ABG reviewed -s/p Decadron -CVP -Did not qualify for Remdesivir -Proning -IVF are SL Hypertryglycerides -Hold Propofol PNA -Zosyn -Knight cultures pending UTI with MSSA DM -Monitor -Levemir and scheduled Novolog -Decrease Levemir to 50 units BID Anemia -Monitor CAD -Monitor Morbid obesity Breast cancer hx DVT/Gi ppx -Protonix -Lovenox-- theraputic dosing CHENTE DENISE DO Nov 08, 2020 05:38
[2020-11-08] MEDS: GABAPENTIN 300 MG (NEURONTIN) CAP PO SCH ×3 (06:27→20:14)
[2020-11-08] MEDS: inSUlin ASPART (NovoLOG) 1 UNIT/0.01 ML (CHARGE PER UNIT) SC SCH ×3 (06:27→18:00)
--- NOTE | 2020-11-08 08:48 | Diagnostic Imaging Report ---
INDICATION: Covid pneumonia. Comparison with 11/07/2019. FINDINGS: ET tube, NG tube and right PICC line remain in good position. The lungs are well-aerated. Mild residual alveolar infiltrate remains in the lung bases. Upper lungs are clear. Heart is not enlarged. No pneumothorax or pleural effusion. IMPRESSION: There is some persistent basilar infiltrates more prominent on the left. Overall appearance is stable. Dictated by: Dictated on workstation # [id number]
[2020-11-08] MEDS: PANTOPRAZOLE 40 MG (PROTONIX) TAB PO SCH (08:52)
[2020-11-08] MEDS: amLODIPine 5 MG (NORVASC) TAB PO SCH (08:52)
[2020-11-08] MEDS: FERROUS SULF 325 MG (IRON) TAB PO SCH ×3 (08:53→18:00)
[2020-11-08] MEDS: OMEGA 3 (FISH OIL) 1000 MG CAP PO SCH ×3 (08:53→18:00)
[2020-11-08] MEDS: ASPIRIN E.C. 81 MG (ECOTRIN) TAB PO SCH (08:53)
[2020-11-08] MEDS: meTOprolol TARTRATE 25 MG (LOPRESSOR) TABLET PO SCH ×2 (08:54→20:14)
[2020-11-08] MEDS: ENOXAPARIN 300 MG/3 ML (LOVENOX) MULTI-DOSE VIAL SQ SCH ×2 (08:56→20:13)
[2020-11-08] MEDS: DexMEDEtomidine PRE MIX 100 ML IV SCH ×2 (12:25→22:37)
[2020-11-08] MEDS: FOLIC ACID 1 MG TAB PO SCH (12:57)
[2020-11-08] MEDS: VITAMIN D3 10 MCG (400 UNITS) TABLET PO SCH (12:57)
--- NOTE | 2020-11-08 13:54 | NUR ---
Note pt currently receiving Pulmocare via 180ml bolus feeds q4h, with 30ml free water flushes before/after each bolus. Note pt is at goal for feeding, and is tolerating well. Continue current regimen at this time. Will continue to follow and reassess as pt needs, intake, and status change. Roosevelt Medina, MS RD LD [phone] cell
--- NOTE | 2020-11-08 19:40 | NUR ---
Spoke with patient's point of contact, Rosalie, and updated her on current status. Rosalie stated that they, the family, "do not want to peg and trach" the patient. If it comes to needing that, they have already discussed comfort care as an option.
[2020-11-08] MEDS: FENOFIBRATE 134 MG (LOFIBRA) CAPSULE PO SCH (20:13)
[2020-11-09] VITALS (30 sets, daily range): BP systolic 137–184; BP diastolic 70–85
[2020-11-09] MEDS: inSUlin ASPART (NovoLOG) 1 UNIT/0.01 ML (CHARGE PER UNIT) SC SCH ×4 (00:09→18:17)
[2020-11-09] MEDS: RT-ALBUTEROL INHALER HFA (VENTOLIN HFA) 18 GM IH SCH ×6 (02:02→23:13)
[2020-11-09 03:29] LABS: ABG BASE EXCESS 2.3 MMOL/L (-2.5-2.5); ABG OXYGEN SATURATION 96 % (94-100); ABG PCO2 40 MMHG (35-45); ABG PH 7.43 (7.37-7.43); ABG PO2 74 MMHG (79-93); ABG TCO2 27.5 MMOL/L (21.0-31.0)
[2020-11-09 03:33] LABS: ALLENS TEST POSITIVE; BASOPHILS % (AUTO) 0 % (0-10); EOSINOPHILS % (AUTO) 0 % (0-10); HEMATOCRIT 27 % (35-52); HEMOGLOBIN 8.2 g/dL (11.5-16.0); INSPIRED O2 75; LYMPHOCYTES # (AUTO) 0.8 10^3/uL (1.0-4.0); LYMPHOCYTES % (AUTO) 8 % (12-44); MEAN CORPUSCULAR HEMOGLOBIN 27 pg (25-34); MEAN CORPUSCULAR HGB CONC 30 g/dL (32-36); MEAN CORPUSCULAR VOLUME 90 fL (80-99); MEAN PLATELET VOLUME 12.8 fL (9.0-12.2); MONOCYTES # (AUTO) 0.5 10^3/uL (0.0-1.0); MONOCYTES % (AUTO) 5 % (0-12); NEUTROPHILS # (AUTO) 7.8 10^3/uL (1.8-7.8); NEUTROPHILS % (AUTO) 81 % (42-75); PATIENT TEMP 37.2; PLATELET COUNT 196 10^3/uL (130-400); VENTILATOR YES; WHITE BLOOD COUNT 9.6 10^3/uL (4.3-11.0)
[2020-11-09 03:54] LABS: CALCIUM 9.3 MG/DL (8.5-10.1)
[2020-11-09 03:58] LABS: CREATININE SERUM 1.04 MG/DL (0.60-1.30); PHOSPHORUS 2.8 MG/DL (2.3-4.7)
[2020-11-09 04:00] LABS: MAGNESIUM 1.9 MG/DL (1.6-2.4)
--- NOTE | 2020-11-09 04:14 | Pulmonary Progress Note ---
Subjective Time Seen by a Provider: 04:09 Sepsis Event Evaluation Height, Weight, BMI Height: 5'9.00" Weight: 230lbs. 0.0oz. 104.086946sj; 39.26 BMI Method:Stated Focused Exam Lactate Level 11/07/20 12:00: Lactic Acid Level 1.11 Exam Exam Vital Signs Date Time Temp Pulse Resp B/P (MAP) Pulse Ox O2 Delivery O2 Flow Rate FiO2 11/09/20 03:04 37.2 11/09/20 02:02 81 28 92 75 11/08/20 23:06 37.9 11/08/20 21:14 90 30 90 Mechanical Ventilator 75.00 11/08/20 21:10 90 29 89 70 11/08/20 20:25 Mechanical Ventilator 70.00 11/08/20 20:00 89 Mechanical Ventilator 70 11/08/20 19:28 38.0 11/08/20 19:00 87 11/08/20 18:14 89 28 91 70 11/08/20 18:00 89 29 163/78 (106) 90 Mechanical Ventilator 70.00 11/08/20 17:00 90 22 163/84 (110) 91 Mechanical Ventilator 70.00 11/08/20 16:00 85 25 166/78 (107) 93 Mechanical Ventilator 70.00 11/08/20 15:39 37.1 11/08/20 15:00 85 27 166/75 (105) 94 Mechanical Ventilator 70.00 11/08/20 14:42 Mechanical Ventilator 70.00 11/08/20 14:35 86 24 86 45 11/08/20 14:00 85 25 171/74 (106) 91 Mechanical Ventilator 40.00 11/08/20 13:22 84 11/08/20 13:00 78 26 176/83 (114) 93 Mechanical Ventilator 40.00 11/08/20 12:00 67 23 156/73 (100) 90 Mechanical Ventilator 40.00 11/08/20 11:36 36.7 11/08/20 11:00 74 24 163/73 (103) 90 Mechanical Ventilator 40.00 11/08/20 10:29 74 24 92 45 11/08/20 10:00 80 23 171/77 (108) 91 Mechanical Ventilator 40.00 11/08/20 08:59 71 23 139/71 (93) 90 Mechanical Ventilator 40.00 11/08/20 08:00 80 23 152/75 (100) 90 Mechanical Ventilator 40.00 11/08/20 08:00 90 Mechanical Ventilator 45 11/08/20 07:40 37.0 11/08/20 07:00 79 24 189/86 (120) 88 Mechanical Ventilator 40.00 11/08/20 06:57 73 24 89 Mechanical Ventilator 40.00 11/08/20 06:47 63 23 95 50 11/08/20 06:33 Mechanical Ventilator 50.00 11/08/20 06:29 65 11/08/20 06:00 68 23 136/73 (94) 93 Mechanical Ventilator 40.00 11/08/20 05:00 78 24 172/81 (111) 93 Mechanical Ventilator 40.00 I & O 11/09/20 07:00 Intake Total 1085 ml Output Total 1525 ml Balance -440 ml Height & Weight Height: 5'9.00" Weight: 230lbs. 0.0oz. 104.103867kg; 39.26 BMI Method:Stated General Appearance: Chronically ill HEENT: PERRL/EOMI, Normal ENT Inspection, Pharynx Normal, Moist Mucous Membranes Neck: Full Range of Motion, Normal Inspection, Non Tender Respiratory: Lungs Clear, Normal Breath Sounds, No Accessory Muscle Use Cardiovascular: Regular Rate, Rhythm, No Murmur, Normal Peripheral Pulses Capillary Refill: Less Than 3 Seconds Extremity: Pedal Edema Neurologic/Psychiatric: Alert, Oriented x3, No Motor/Sensory Deficits, Normal Mood/Affect Skin: Normal Color, Warm/Dry, Other (no breakdown noted on exam) Lymphatic: No Adenopathy Results Lab Laboratory Tests 11/07/20 05:00 11/08/20 03:15 11/09/20 03:10 Assessment/Plan Assessment/Plan Acute respiratory failure with COVID and ARDS -Pt intubated 11/01 -Vent 400/14/06 -- Pt is now requiring 75% Fi02 -Increase PEEP to 12 -Sedation has been off since 630yesterday morning. -Pt is still unresponsive. PERRL. Pt does withdrawal from suctioning/stimulation. -Repeat PCT is normal -No current abx -Pt is not on IVF currently -CXR shows worsening left infiltration -Repeat Sputum culture -TF per dietary recommendations - Pt is tolerating -ABG reviewed -s/p Decadron -CVP -Did not qualify for Remdesivir -Proning -IVF are SL Hypertryglycerides -Hold Propofol PNA -s/p Zosyn 10/28- 11/05 -Knight cultures pending UTI with MSSA DM -Monitor -Levemir and scheduled Novolog -Decrease Levemir to 50 units BID Anemia -Monitor CAD -Monitor Morbid obesity Breast cancer hx DVT/Gi ppx -Protonix -Lovenox-- theraputic dosing CHENTE DENISE DO Nov 09, 2020 04:14
[2020-11-09] MEDS: MAGNESIUM 1 GM/100 ML IVPB 100 ML IV SCH (05:00)
[2020-11-09] MEDS: KCL 20 MEQ TAB (K-DUR) PO SCH (05:00)
[2020-11-09] MEDS: POTASSIUM CL 10MEQ/50ML IVPB 50 ML IV SCH (05:00)
[2020-11-09] MEDS: CATHETER FLUSH 10 ML SYR IV SCH ×3 (05:28→22:10)
[2020-11-09] MEDS: GABAPENTIN 300 MG (NEURONTIN) CAP PO SCH ×3 (05:28→20:26)
--- NOTE | 2020-11-09 07:48 | Diagnostic Imaging Report ---
INDICATION: Respiratory failure Portable chest 3:22 AM There is ET tube projects over the trachea. Right extremity PICC line tip projects over the SVC. There is an NG tube in place. There are mild faint diffuse alveolar infiltrates in the lungs. IMPRESSION: Diffuse groundglass infiltrate in the lungs appears similar to the previous day. Dictated by: Dictated on workstation # [id number]
[2020-11-09] MEDS ORDERED: PANTOPRAZOLE 40 MG (PROTONIX) VIAL ONE (07:57)
[2020-11-09] MEDS: meTOprolol TARTRATE 25 MG (LOPRESSOR) TABLET PO SCH ×2 (08:41→20:25)
[2020-11-09] MEDS: amLODIPine 5 MG (NORVASC) TAB PO SCH (08:41)
[2020-11-09] MEDS: ASPIRIN E.C. 81 MG (ECOTRIN) TAB PO SCH (08:41)
[2020-11-09] MEDS: FERROUS SULF 325 MG (IRON) TAB PO SCH ×3 (08:41→18:17)
[2020-11-09] MEDS: PANTOPRAZOLE 40 MG (PROTONIX) TAB PO SCH (08:42)
[2020-11-09] MEDS: OMEGA 3 (FISH OIL) 1000 MG CAP PO SCH ×3 (08:42→18:17)
[2020-11-09] MEDS: ENOXAPARIN 300 MG/3 ML (LOVENOX) MULTI-DOSE VIAL SQ SCH ×2 (08:42→20:25)
[2020-11-09] MEDS: fentaNYL DRIP PRE-MIX 250 ML IV SCH ×2 (09:25→18:25)
[2020-11-09] MEDS: DexMEDEtomidine PRE MIX 100 ML IV SCH ×4 (09:25→21:35)
[2020-11-09] MEDS: FOLIC ACID 1 MG TAB PO SCH (11:58)
[2020-11-09] MEDS: VITAMIN D3 10 MCG (400 UNITS) TABLET PO SCH (11:59)
--- NOTE | 2020-11-09 13:17 | NUR ---
SPOKE WITH PATIENTS DAUGHTER AND UPDATED ON PATIENT CONDITION. ALL QUESTIONS ANSWERED WITH NO FURTHER CONCERNS VOICED.
[2020-11-09] MEDS: ACETAMINOPHEN 500 MG TAB (TYLENOL) PO PRN ×2 (13:30→20:26)
[2020-11-09] MEDS: FLUCONAZOLE 100 MG/50 ML IVPB IV SCH (15:23)
[2020-11-09] MEDS: FENOFIBRATE 134 MG (LOFIBRA) CAPSULE PO SCH (20:25)
--- NOTE | 2020-11-09 23:24 | NUR ---
Pt daughter in law called for update. Password confirmed.
[2020-11-10] VITALS (30 sets, daily range): BP systolic 15–177; BP diastolic 66–86
[2020-11-10] MEDS: inSUlin ASPART (NovoLOG) 1 UNIT/0.01 ML (CHARGE PER UNIT) SC SCH ×7 (00:38→23:51)
[2020-11-10] MEDS: DexMEDEtomidine PRE MIX 100 ML IV SCH ×6 (00:48→22:18)
[2020-11-10] MEDS: RT-ALBUTEROL INHALER HFA (VENTOLIN HFA) 18 GM IH SCH ×6 (02:08→21:46)
[2020-11-10 02:25] LABS: BASOPHILS % (AUTO) 0 % (0-10); EOSINOPHILS % (AUTO) 0 % (0-10); HEMATOCRIT 27 % (35-52); LYMPHOCYTES # (AUTO) 0.8 10^3/uL (1.0-4.0); LYMPHOCYTES % (AUTO) 12 % (12-44); MEAN CORPUSCULAR HEMOGLOBIN 27 pg (25-34); MEAN CORPUSCULAR HGB CONC 29 g/dL (32-36); MEAN CORPUSCULAR VOLUME 91 fL (80-99); MEAN PLATELET VOLUME 12.7 fL (9.0-12.2); MONOCYTES # (AUTO) 0.6 10^3/uL (0.0-1.0); MONOCYTES % (AUTO) 9 % (0-12); NEUTROPHILS # (AUTO) 4.8 10^3/uL (1.8-7.8); NEUTROPHILS % (AUTO) 75 % (42-75); PLATELET COUNT 179 10^3/uL (130-400); WHITE BLOOD COUNT 6.4 10^3/uL (4.3-11.0)
[2020-11-10 03:15] LABS: POTASSIUM 5.1 MMOL/L (3.6-5.0)
[2020-11-10 03:16] LABS: CALCIUM 8.6 MG/DL (8.5-10.1)
[2020-11-10 03:21] LABS: CREATININE SERUM 1.29 MG/DL (0.60-1.30)
[2020-11-10] MEDS: fentaNYL DRIP PRE-MIX 250 ML IV SCH ×3 (04:15→17:25)
[2020-11-10] MEDS: ACETAMINOPHEN 500 MG TAB (TYLENOL) PO PRN ×3 (04:27→15:18)
--- NOTE | 2020-11-10 04:58 | Pulmonary Progress Note ---
Subjective Time Seen by a Provider: 04:53 Subjective/Events-last exam Pt is sedated on vent. Sepsis Event Evaluation Height, Weight, BMI Height: 5'9.00" Weight: 230lbs. 0.0oz. 104.211747ez; 39.26 BMI Method:Stated Focused Exam Lactate Level 11/07/20 12:00: Lactic Acid Level 1.11 Exam Exam Vital Signs Date Time Temp Pulse Resp B/P (MAP) Pulse Ox O2 Delivery O2 Flow Rate FiO2 11/10/20 04:27 38.4 11/10/20 04:15 105 11/10/20 03:00 77 27 155/81 (105) 93 Mechanical Ventilator 35.00 11/10/20 02:44 38.4 11/10/20 02:08 72 25 92 32 11/10/20 02:00 65 29 164/81 (108) 92 Mechanical Ventilator 35.00 11/10/20 01:00 65 25 159/78 (105) 92 Mechanical Ventilator 35.00 11/10/20 01:00 65 11/10/20 00:48 65 11/10/20 00:00 65 24 152/76 (101) 92 Mechanical Ventilator 35.00 11/09/20 23:14 65 26 93 35 11/09/20 23:00 65 24 158/77 (102) 93 Mechanical Ventilator 35.00 11/09/20 22:15 38.2 11/09/20 22:00 67 25 153/74 (105) 94 Mechanical Ventilator 35.00 11/09/20 21:48 38.3 11/09/20 21:35 38.3 73 29 152/72 93 Mechanical Ventilator 35.00 11/09/20 21:00 70 28 151/75 (97) 93 Mechanical Ventilator 35.00 11/09/20 20:26 38.9 11/09/20 20:00 75 30 149/71 (98) 91 Mechanical Ventilator 35.00 11/09/20 20:00 93 Mechanical Ventilator 35 11/09/20 19:09 73 29 94 35 11/09/20 19:00 39.1 11/09/20 19:00 74 11/09/20 19:00 70 18 153/72 (99) 93 Mechanical Ventilator 35.00 11/09/20 19:00 74 28 149/71 (109) 94 Mechanical Ventilator 35.00 11/09/20 18:25 38.0 66 25 160/78 93 Mechanical Ventilator 40.00 11/09/20 18:00 70 18 153/72 (99) 93 Mechanical Ventilator 35.00 11/09/20 17:00 66 25 160/78 (105) 93 Mechanical Ventilator 35.00 11/09/20 16:00 66 25 156/79 (104) 92 Mechanical Ventilator 35.00 11/09/20 15:24 94 35.00 11/09/20 15:23 38.0 11/09/20 15:18 38.0 11/09/20 15:00 72 27 157/76 (103) 95 Mechanical Ventilator 40.00 11/09/20 14:22 65 26 95 75 11/09/20 14:00 65 24 151/75 (100) 94 Mechanical Ventilator 40.00 11/09/20 13:30 38.6 69 29 151/79 96 Mechanical Ventilator 40.00 11/09/20 13:30 38.6 11/09/20 13:27 38.6 40.00 11/09/20 13:02 66 11/09/20 13:00 66 27 155/75 (101) 95 Mechanical Ventilator 45.00 11/09/20 12:00 68 24 157/72 (100) 95 Mechanical Ventilator 45.00 11/09/20 11:24 38.0 11/09/20 11:10 Mechanical Ventilator 45.00 11/09/20 11:00 73 28 152/70 (97) 96 Mechanical Ventilator 55.00 11/09/20 10:51 69 29 96 75 11/09/20 10:00 73 29 137/77 (97) 92 Mechanical Ventilator 55.00 11/09/20 09:39 Mechanical Ventilator 55.00 11/09/20 09:25 100 30 159/83 98 Mechanical Ventilator 65.00 11/09/20 09:00 93 21 175/83 (113) 96 Mechanical Ventilator 65.00 11/09/20 08:50 93 Mechanical Ventilator 65 11/09/20 08:47 65.00 11/09/20 08:00 82 143/80 (101) 97 Mechanical Ventilator 70.00 11/09/20 07:24 37.6 11/09/20 07:00 90 21 167/78 (107) 97 Mechanical Ventilator 70.00 11/09/20 06:50 87 29 97 75 11/09/20 06:32 81 1/19/21 06:00 87 6 177/83 (114) 95 Mechanical Ventilator 70.00 11/09/20 05:00 94 11 179/78 (111) 91 Mechanical Ventilator 70.00 I & O 11/10/20 07:00 Intake Total 1850 ml Output Total 1650 ml Balance 200 ml Height & Weight Height: 5'9.00" Weight: 230lbs. 0.0oz. 104.448323lr; 39.26 BMI Method:Stated General Appearance: Chronically ill HEENT: PERRL/EOMI, Normal ENT Inspection, Pharynx Normal, Moist Mucous Membrane s Neck: Full Range of Motion, Normal Inspection, Non Tender Respiratory: Lungs Clear, Normal Breath Sounds, No Accessory Muscle Use Cardiovascular: Regular Rate, Rhythm, No Murmur, Normal Peripheral Pulses Capillary Refill: Less Than 3 Seconds Extremity: Pedal Edema Neurologic/Psychiatric: Alert, Oriented x3, No Motor/Sensory Deficits, Normal Mood/Affect Skin: Normal Color, Warm/Dry, Other (no breakdown noted on exam) Lymphatic: No Adenopathy Results Lab Laboratory Tests 11/09/20 03:10 11/10/20 02:07 Assessment/Plan Assessment/Plan Acute respiratory failure with COVID and ARDS -Pt intubated 11/01 -Vent 400/24/-- Pt is now requiring 40% Fi02 -PEEP to 12 -- Decrease to 10 -Precedex, and Fentanyl -Repeat PCT is normal -No current abx -Pt is not on IVF currently -CXR shows worsening left infiltration -Repeat Sputum culture -TF per dietary recommendations - Pt is tolerating -ABG reviewed -s/p Decadron -CVP -Did not qualify for Remdesivir -Proning -IVF are SL Hypertryglycerides -Hold Propofol PNA -s/p Zosyn 10/28- 11/05 -Knight cultures pending UTI with MSSA DM -Monitor -Levemir and scheduled Novolog -Decrease Levemir to 50 units BID Anemia -Monitor CAD -Monitor Morbid obesity Breast cancer hx DVT/Gi ppx -Protonix -Lovenox-- theraputic dosing CHENTE DENISE DO Nov 10, 2020 04:58
[2020-11-10] MEDS: MEROPENEM 500 MG in WATER (STERILE) FOR INJECTION 10 ML IV SCH ×4 (05:00→22:18)
[2020-11-10] MEDS ORDERED: ANIDULAFUNGIN INJECTION 200 MG in NS (IVPB) 250 ML IV ONE (05:00)
[2020-11-10] MEDS ORDERED: FUROSEMIDE 40 MG/4 ML INJ (LASIX) IVP ONE (05:00)
[2020-11-10] MEDS ORDERED: WATER (STERILE) FOR INJECTION 20 ML ONE (05:12)
[2020-11-10] MEDS ORDERED: MEROPENEM 1000 MG (MERREM) VIAL IV ONE (05:12)
[2020-11-10] MEDS: CATHETER FLUSH 10 ML SYR IV SCH ×3 (06:08→22:19)
[2020-11-10] MEDS: KCL 20 MEQ TAB (K-DUR) PO SCH (06:08)
[2020-11-10] MEDS: MAGNESIUM 1 GM/100 ML IVPB 100 ML IV SCH (06:08)
[2020-11-10] MEDS: POTASSIUM CL 10MEQ/50ML IVPB 50 ML IV SCH (06:08)
[2020-11-10 06:11] LABS: BILIRUBIN,URINE NEGATIVE (NEGATIVE); CLARITY,URINE SL CLOUDY; COLOR,URINE YELLOW; GLUCOSE, URINE (UA) NEGATIVE (NEGATIVE); KETONES,URINE NEGATIVE (NEGATIVE); LEUKOCYTE ESTERASE ,URINE 1+ (NEGATIVE); NITRITE,URINE POSITIVE (NEGATIVE); PH,URINE 5.5 (5-9); PROTEIN,URINE NEGATIVE (NEGATIVE)
[2020-11-10 06:24] LABS: AMORPHOUS SEDIMENT,UR FEW AMOR URATES /LPF; BACTERIA,URINE LARGE /HPF; YEAST,URINE LARGE /HPF
--- NOTE | 2020-11-10 07:15 | Diagnostic Imaging Report ---
INDICATION: Pneumonia. Comparison with 11/09/2020. FINDINGS: ET tube, NG tube and right PICC line all are in good position. Lungs are well-aerated. There has been considerable clearing of infiltrates with minimal residual left basilar atelectasis and/or infiltrate. Heart mildly enlarged. No pneumothorax or pleural effusion. IMPRESSION: 1. Tubes and lines remain in good position. 2. Significant improvement in aeration with clearing of infiltrates. Dictated by: Dictated on workstation # [id number]
[2020-11-10] MEDS: amLODIPine 5 MG (NORVASC) TAB PO SCH (08:33)
[2020-11-10] MEDS: ENOXAPARIN 300 MG/3 ML (LOVENOX) MULTI-DOSE VIAL SQ SCH ×2 (08:33→20:16)
[2020-11-10] MEDS: ASPIRIN 81 MG CHEW (CHILDREN'S ASA) PO SCH (08:41)
[2020-11-10] MEDS: PANTOPRAZOLE 40 MG (PROTONIX) VIAL IV SCH (08:41)
[2020-11-10] MEDS: FERROUS SULF 325 MG (IRON) TAB PO SCH ×3 (08:41→17:26)
[2020-11-10] MEDS: GABAPENTIN 300 MG (NEURONTIN) CAP PO SCH ×3 (08:41→20:17)
[2020-11-10] MEDS: OMEGA 3 (FISH OIL) 1000 MG CAP PO SCH ×3 (08:41→17:26)
[2020-11-10] MEDS: meTOprolol TARTRATE 25 MG (LOPRESSOR) TABLET PO SCH ×2 (08:43→20:17)
[2020-11-10] MEDS: FOLIC ACID 1 MG TAB PO SCH (12:39)
[2020-11-10] MEDS: VITAMIN D3 10 MCG (400 UNITS) TABLET PO SCH (12:39)
[2020-11-10] MEDS: FLUCONAZOLE 100 MG/50 ML IVPB IV SCH (15:18)
--- NOTE | 2020-11-10 17:05 | NUR ---
SPOKE WITH PATIENTS DIL. ALL QUESTIONS ANSWERED WITH NO FURTHER CONCERNS VOICED.
[2020-11-10] MEDS: FENOFIBRATE 134 MG (LOFIBRA) CAPSULE PO SCH (20:16)
[2020-11-11] VITALS (29 sets, daily range): BP systolic 120–158; BP diastolic 64–86
--- NOTE | 2020-11-11 00:16 | NUR ---
Pt's temp elevated, unable to give tylenol r/t pt having more than 3000mg in 24hrs. Cool washcloths place, ice packs to groin, ice water used to flush pre- and post- bolus tube feeding.
[2020-11-11] MEDS: RT-ALBUTEROL INHALER HFA (VENTOLIN HFA) 18 GM IH SCH ×5 (01:50→21:34)
[2020-11-11] MEDS: DexMEDEtomidine PRE MIX 100 ML IV SCH ×7 (03:19→23:35)
[2020-11-11] MEDS: fentaNYL DRIP PRE-MIX 250 ML IV SCH ×4 (03:19→22:17)
[2020-11-11 03:29] LABS: ABG BASE EXCESS 2.1 MMOL/L (-2.5-2.5); ABG OXYGEN SATURATION 96 % (94-100); ABG PCO2 46 MMHG (35-45); ABG PH 7.39 (7.37-7.43); ABG PO2 92 MMHG (79-93); ABG TCO2 27.5 MMOL/L (21.0-31.0)
[2020-11-11 03:35] LABS: ALLENS TEST YES-POS; PATIENT TEMP 102.2; VENTILATOR YES
[2020-11-11 03:36] LABS: BASOPHILS % (AUTO) 0 % (0-10); EOSINOPHILS % (AUTO) 0 % (0-10); HEMATOCRIT 31 % (35-52); HEMOGLOBIN 9.1 g/dL (11.5-16.0); LYMPHOCYTES # (AUTO) 0.8 10^3/uL (1.0-4.0); LYMPHOCYTES % (AUTO) 9 % (12-44); MEAN CORPUSCULAR HEMOGLOBIN 27 pg (25-34); MEAN CORPUSCULAR HGB CONC 30 g/dL (32-36); MEAN CORPUSCULAR VOLUME 91 fL (80-99); MEAN PLATELET VOLUME 13.4 fL (9.0-12.2); MONOCYTES # (AUTO) 0.9 10^3/uL (0.0-1.0); MONOCYTES % (AUTO) 10 % (0-12); NEUTROPHILS # (AUTO) 7.6 10^3/uL (1.8-7.8); NEUTROPHILS % (AUTO) 81 % (42-75); PLATELET COUNT 186 10^3/uL (130-400); WHITE BLOOD COUNT 9.4 10^3/uL (4.3-11.0)
--- NOTE | 2020-11-11 05:23 | Pulmonary Progress Note ---
Subjective Time Seen by a Provider: 05:18 Subjective/Events-last exam Pt is sedated on vent. Sepsis Event Evaluation Height, Weight, BMI Height: 5'9.00" Weight: 230lbs. 0.0oz. 104.230522oc; 39.26 BMI Method:Stated Exam Exam Vital Signs Date Time Temp Pulse Resp B/P (MAP) Pulse Ox O2 Delivery O2 Flow Rate FiO2 11/11/20 04:00 82 24 129/73 (91) 92 Mechanical Ventilator 55.00 11/11/20 03:19 Mechanical Ventilator 11/11/20 03:04 39.0 11/11/20 03:00 91 27 142/74 (96) 92 Mechanical Ventilator 55.00 11/11/20 02:15 Mechanical Ventilator 55.00 11/11/20 02:00 92 20 158/66 (96) 93 Mechanical Ventilator 50.00 11/11/20 01:50 81 27 94 50 11/11/20 01:00 85 11/11/20 01:00 84 26 153/80 (104) 92 Mechanical Ventilator 50.00 11/11/20 00:00 82 23 144/77 (99) 92 Mechanical Ventilator 50.00 11/10/20 23:50 Mechanical Ventilator 50.00 11/10/20 23:27 39.6 11/10/20 23:00 71 24 154/75 (101) 93 Mechanical Ventilator 45.00 11/10/20 22:18 Mechanical Ventilator 11/10/20 22:00 71 25 166/74 (104) 93 Mechanical Ventilator 45.00 11/10/20 21:46 70 27 94 35 11/10/20 21:00 75 16 167/72 (103) 93 Mechanical Ventilator 45.00 11/10/20 20:18 Mechanical Ventilator 45.00 11/10/20 20:00 91 Mechanical Ventilator 45 11/10/20 20:00 74 23 158/71 (100) 94 Mechanical Ventilator 45.00 11/10/20 19:46 37.9 11/10/20 19:00 80 11/10/20 19:00 79 20 15/76 (56) 94 Mechanical Ventilator 45.00 11/10/20 19:00 Mechanical Ventilator 45.00 11/10/20 18:31 81 29 94 35 11/10/20 18:00 77 26 153/70 (97) 94 Mechanical Ventilator 35.00 11/10/20 17:25 74 14 140/67 92 Mechanical Ventilator 40.00 11/10/20 17:10 39.3 11/10/20 17:00 71 25 143/67 (92) 93 Mechanical Ventilator 35.00 11/10/20 16:00 74 14 140/67 (91) 92 Mechanical Ventilator 35.00 11/10/20 15:07 39.7 11/10/20 15:04 80 25 94 45 11/10/20 15:00 80 27 145/66 (92) 95 Mechanical Ventilator 35.00 11/10/20 14:00 85 29 157/78 (104) 94 Mechanical Ventilator 35.00 11/10/20 13:22 37.4 79 24 146/72 93 Mechanical Ventilator 40.00 11/10/20 13:00 80 23 163/86 (111) 95 Mechanical Ventilator 35.00 11/10/20 12:48 80 11/10/20 12:42 37.4 86 94 45 11/10/20 12:39 79 24 146/72 93 Mechanical Ventilator 40.00 11/10/20 12:00 80 25 153/78 (103) 92 Mechanical Ventilator 35.00 11/10/20 11:27 37.4 11/10/20 11:15 79 24 93 45 11/10/20 11:00 80 22 136/78 (97) 93 Mechanical Ventilator 35.00 11/10/20 10:00 81 29 135/71 (92) 92 Mechanical Ventilator 35.00 11/10/20 09:40 38.5 11/10/20 09:00 113 26 149/68 (95) 91 Mechanical Ventilator 35.00 11/10/20 08:30 91 Mechanical Ventilator 45 11/10/20 08:00 74 28 95 Mechanical Ventilator 35.00 11/10/20 07:56 86 27 94 45 11/10/20 07:33 38.7 11/10/20 07:00 80 25 138/78 (98) 93 Mechanical Ventilator 35.00 11/10/20 06:31 82 11/10/20 06:00 84 25 149/81 (103) 93 Mechanical Ventilator 35.00 I & O 11/11/20 07:00 Intake Total 1320 ml Output Total 3125 ml Balance -1805 ml Height & Weight Height: 5'9.00" Weight: 230lbs. 0.0oz. 104.503861rd; 39.26 BMI Method:Stated General Appearance: Chronically ill HEENT: PERRL/EOMI, Normal ENT Inspection, Pharynx Normal, Moist Mucous Membranes Neck: Full Range of Motion, Normal Inspection, Non Tender Respiratory: Lungs Clear, Normal Breath Sounds, No Accessory Muscle Use Cardiovascular: Regular Rate, Rhythm, No Murmur, Normal Peripheral Pulses Capillary Refill: Less Than 3 Seconds Extremity: Pedal Edema Neurologic/Psychiatric: Alert, Oriented x3, No Motor/Sensory Deficits, Normal Mood/Affect Skin: Normal Color, Warm/Dry, Other (no breakdown noted on exam) Lymphatic: No Adenopathy Results Lab Laboratory Tests 11/10/20 02:07 11/11/20 03:05 Assessment/Plan Assessment/Plan Acute respiratory failure with COVID and ARDS -Pt intubated 11/01 -Vent 400/24/-- Pt is now requiring %55 -Precedex, and Fentanyl -Repeat PCT is normal -No current abx -Pt is not on IVF currently -CXR shows worsening left infiltration -Repeat Sputum culture -TF per dietary recommendations - Pt is tolerating -ABG reviewed -s/p Decadron -CVP -Did not qualify for Remdesivir -Proning - restart -IVF are SL Hypertryglycerides -Hold Propofol PNA -s/p Zosyn 10/28- 11/05 -Continue Merrem -Knight cultures pending UTI with MSSA DM -Monitor -Levemir and scheduled Novolog -Decrease Levemir to 50 units BID Anemia -Monitor CAD -Monitor Morbid obesity Breast cancer hx DVT/Gi ppx -Protonix -Lovenox-- theraputic dosing CHENTE DENISE DO Nov 11, 2020 05:23
[2020-11-11 05:28] LABS: POTASSIUM 4.7 MMOL/L (3.6-5.0)
[2020-11-11 05:34] LABS: CREATININE SERUM 1.31 MG/DL (0.60-1.30); PHOSPHORUS 2.7 MG/DL (2.3-4.7)
[2020-11-11] MEDS: ACETAMINOPHEN 500 MG TAB (TYLENOL) PO PRN ×3 (05:48→20:51)
[2020-11-11] MEDS: GABAPENTIN 300 MG (NEURONTIN) CAP PO SCH ×3 (05:48→20:51)
[2020-11-11] MEDS: MEROPENEM 500 MG in WATER (STERILE) FOR INJECTION 10 ML IV SCH ×4 (05:48→23:35)
[2020-11-11] MEDS: inSUlin ASPART (NovoLOG) 1 UNIT/0.01 ML (CHARGE PER UNIT) SC SCH ×6 (05:48→23:35)
[2020-11-11] MEDS: POTASSIUM CL 10MEQ/50ML IVPB 50 ML IV SCH (05:49)
[2020-11-11] MEDS: KCL 20 MEQ TAB (K-DUR) PO SCH (05:49)
[2020-11-11] MEDS: CATHETER FLUSH 10 ML SYR IV SCH ×3 (05:49→21:56)
[2020-11-11] MEDS: MAGNESIUM 1 GM/100 ML IVPB 100 ML IV SCH (05:49)
--- NOTE | 2020-11-11 07:47 | Diagnostic Imaging Report ---
INDICATION: Covid pneumonia. Comparison made with prior examination from 11/10/2020 FINDINGS: There is cardiomegaly. There are patchy bibasilar infiltrates. There appears to be patchy left upper lobe infiltrate. There is no pleural effusion or pneumothorax. Lines and tubes are in satisfactory position. IMPRESSION: Patchy bibasilar and left upper lobe infiltrate suspect for pneumonia. Dictated by: Dictated on workstation # [id number]
[2020-11-11] MEDS: meTOprolol TARTRATE 25 MG (LOPRESSOR) TABLET PO SCH ×2 (08:16→20:50)
[2020-11-11] MEDS: FERROUS SULF 325 MG (IRON) TAB PO SCH ×3 (08:16→18:02)
[2020-11-11] MEDS: amLODIPine 5 MG (NORVASC) TAB PO SCH (08:17)
[2020-11-11] MEDS: ENOXAPARIN 300 MG/3 ML (LOVENOX) MULTI-DOSE VIAL SQ SCH ×2 (08:17→20:51)
[2020-11-11] MEDS: ASPIRIN 81 MG CHEW (CHILDREN'S ASA) PO SCH (08:17)
[2020-11-11] MEDS: OMEGA 3 (FISH OIL) 1000 MG CAP PO SCH ×3 (08:17→18:02)
[2020-11-11] MEDS: PANTOPRAZOLE 40 MG (PROTONIX) VIAL IV SCH (08:20)
[2020-11-11] MEDS ORDERED: ANIDULAFUNGIN INJECTION 100 MG in NS (IVPB) 100 ML IV SCH (09:00)
[2020-11-11] MEDS: VITAMIN D3 10 MCG (400 UNITS) TABLET PO SCH (11:35)
[2020-11-11] MEDS: FOLIC ACID 1 MG TAB PO SCH (11:35)
[2020-11-11] MEDS: FLUCONAZOLE 100 MG/50 ML IVPB IV SCH (14:51)
--- NOTE | 2020-11-11 14:57 | NUR ---
Note pt currently receiving TF of Pulmocare via 180ml bolus feeds q4h with 30ml free water flushes before/after each bolus. Note pt is currently at goal for TF at this time. Continue with current regimen. Will continue to follow and reassess as pt needs, intake, and status change. Roosevelt Medina, MS RD LD [phone] cell
--- NOTE | 2020-11-11 15:49 | NUR ---
SPOKE WITH PATIENTS FAMILY POINT OF CONTACT, WILLIAN. UPDATED ON PATIENT CONDITION. ALL QUESTIONS ANSWERED. WILLIAN STATED THAT FAMILY HAS DISCUSSED TRACH AND PEG WITH PATIENT AND SHE WOULD NOT WANT THIS. WILLIAN IS REQUESTING A "PALLIATIVE CARE" CONSULT TO BE INITIATED "MAYBE SUNDAY, BECAUSE THAT IS THE TWO WEEK JASMIN". I ADVISED THAT I WOULD RELAY THIS INFORMATION TO DR DENISE.
--- NOTE | 2020-11-11 18:20 | NUR ---
PT REGURGITATING TUBE FEEDING WHILE PRONE AT THIS TIME. WILL HOLD FURTHER FEEDINGS.
[2020-11-11] MEDS: FENOFIBRATE 134 MG (LOFIBRA) CAPSULE PO SCH (20:50)
[2020-11-12] VITALS (30 sets, daily range): BP systolic 101–126; BP diastolic 55–68
[2020-11-12] MEDS: RT-ALBUTEROL INHALER HFA (VENTOLIN HFA) 18 GM IH SCH ×6 (01:12→23:07)
[2020-11-12] MEDS: CATHETER FLUSH 10 ML SYR IV SCH ×3 (02:14→21:04)
[2020-11-12] MEDS: MAGNESIUM 1 GM/100 ML IVPB 100 ML IV SCH (02:15)
[2020-11-12] MEDS: KCL 20 MEQ TAB (K-DUR) PO SCH (02:15)
[2020-11-12] MEDS: POTASSIUM CL 10MEQ/50ML IVPB 50 ML IV SCH (02:15)
[2020-11-12] MEDS: DexMEDEtomidine PRE MIX 100 ML IV SCH ×7 (02:45→21:09)
[2020-11-12 03:43] LABS: ABG BASE EXCESS 0.7 MMOL/L (-2.5-2.5); ABG OXYGEN SATURATION 98 % (94-100); ABG PCO2 41 MMHG (35-45); ABG PO2 103 MMHG (79-93); BASOPHILS % (AUTO) 0 % (0-10); EOSINOPHILS % (AUTO) 0 % (0-10); HEMATOCRIT 28 % (35-52); HEMOGLOBIN 8.3 g/dL (11.5-16.0); LYMPHOCYTES # (AUTO) 0.5 10^3/uL (1.0-4.0); LYMPHOCYTES % (AUTO) 7 % (12-44); MEAN CORPUSCULAR HEMOGLOBIN 27 pg (25-34); MEAN CORPUSCULAR HGB CONC 30 g/dL (32-36); MEAN CORPUSCULAR VOLUME 91 fL (80-99); MEAN PLATELET VOLUME 13.8 fL (9.0-12.2); MONOCYTES # (AUTO) 0.7 10^3/uL (0.0-1.0); MONOCYTES % (AUTO) 9 % (0-12); NEUTROPHILS # (AUTO) 6.8 10^3/uL (1.8-7.8); NEUTROPHILS % (AUTO) 84 % (42-75); PLATELET COUNT 134 10^3/uL (130-400); WHITE BLOOD COUNT 8.1 10^3/uL (4.3-11.0)
[2020-11-12 03:45] LABS: ALLENS TEST YES-POS; INSPIRED O2 40%; PATIENT TEMP 37.6; VENTILATOR YES
[2020-11-12 03:57] LABS: POTASSIUM 4.8 MMOL/L (3.6-5.0)
[2020-11-12 03:58] LABS: CALCIUM 8.4 MG/DL (8.5-10.1)
[2020-11-12 04:02] LABS: PHOSPHORUS 3.5 MG/DL (2.3-4.7)
[2020-11-12 04:03] LABS: CREATININE SERUM 1.17 MG/DL (0.60-1.30)
[2020-11-12 04:05] LABS: MAGNESIUM 2.4 MG/DL (1.6-2.4)
[2020-11-12] MEDS: inSUlin ASPART (NovoLOG) 1 UNIT/0.01 ML (CHARGE PER UNIT) SC SCH ×5 (04:17→19:37)
[2020-11-12] MEDS: fentaNYL DRIP PRE-MIX 250 ML IV SCH ×4 (04:17→23:38)
[2020-11-12] MEDS: MEROPENEM 500 MG in WATER (STERILE) FOR INJECTION 10 ML IV SCH ×4 (04:17→23:39)
--- NOTE | 2020-11-12 04:40 | Pulmonary Progress Note ---
Subjective Time Seen by a Provider: 04:36 Subjective/Events-last exam Pt appears to be doing better and requiring less oxygen. Sepsis Event Evaluation Height, Weight, BMI Height: 5'9.00" Weight: 230lbs. 0.0oz. 104.221606jq; 39.26 BMI Method:Stated Exam Exam Vital Signs Date Time Temp Pulse Resp B/P (MAP) Pulse Ox O2 Delivery O2 Flow Rate FiO2 11/12/20 04:22 Mechanical Ventilator 35.00 11/12/20 02:45 38.4 61 24 117/64 96 Mechanical Ventilator 40.00 11/12/20 01:13 61 24 96 40 11/12/20 01:00 64 11/11/20 23:35 38.4 61 24 120/67 96 Mechanical Ventilator 40.00 11/11/20 23:00 38.4 61 24 120/67 (84) 96 Mechanical Ventilator 40.00 11/11/20 22:00 38.4 64 23 120/67 (84) 96 Mechanical Ventilator 40.00 11/11/20 21:55 38.4 11/11/20 21:36 Mechanical Ventilator 40.00 11/11/20 21:34 61 24 95 40 11/11/20 20:58 38.6 65 24 127/70 98 Mechanical Ventilator 40.00 11/11/20 20:51 38.6 11/11/20 20:47 38.6 65 24 127/70 (89) 98 Mechanical Ventilator 45.00 11/11/20 20:00 38.6 66 25 126/68 (87) 98 Mechanical Ventilator 55.00 11/11/20 20:00 98 Mechanical Ventilator 55 11/11/20 19:00 70 11/11/20 19:00 38.6 69 18 133/73 (93) 97 Mechanical Ventilator 55.00 11/11/20 18:20 68 28 95 55 11/11/20 18:02 38.6 69 23 135/76 96 Mechanical Ventilator 55.00 11/11/20 18:00 68 20 135/76 (95) 96 Mechanical Ventilator 55.00 11/11/20 17:00 69 21 128/72 (90) 97 Mechanical Ventilator 55.00 11/11/20 16:00 71 20 131/71 (91) 96 Mechanical Ventilator 55.00 11/11/20 15:02 74 26 95 55 11/11/20 15:00 71 18 128/72 (90) 97 Mechanical Ventilator 55.00 11/11/20 14:52 38.9 84 27 130/79 95 Mechanical Ventilator 40.00 11/11/20 14:00 71 24 131/72 (91) 95 Mechanical Ventilator 55.00 11/11/20 13:00 74 23 126/73 (90) 95 Mechanical Ventilator 55.00 11/11/20 12:43 73 11/11/20 12:23 39.4 11/11/20 12:00 81 18 136/77 (96) 97 Mechanical Ventilator 55.00 11/11/20 11:45 84 27 95 55 11/11/20 11:36 39.3 82 24 146/86 96 Mechanical Ventilator 40.00 11/11/20 11:36 39.6 11/11/20 11:00 82 24 146/86 (106) 96 Mechanical Ventilator 55.00 11/11/20 10:00 80 24 142/77 (98) 95 Mechanical Ventilator 55.00 11/11/20 09:00 85 21 147/70 (95) 96 Mechanical Ventilator 55.00 11/11/20 08:15 95 Mechanical Ventilator 55 11/11/20 08:00 86 26 143/74 (97) 95 Mechanical Ventilator 55.00 11/11/20 07:42 88 25 134/70 94 Mechanical Ventilator 55.00 11/11/20 07:00 88 25 135/71 (92) 94 Mechanical Ventilator 55.00 11/11/20 06:38 87 11/11/20 06:00 77 19 123/64 (83) 93 Mechanical Ventilator 55.00 11/11/20 05:48 39.3 11/11/20 05:47 39.3 11/11/20 05:00 80 23 128/67 (87) 93 Mechanical Ventilator 55.00 I & O 11/12/20 07:00 Intake Total 1395 ml Output Total 1150 ml Balance 245 ml Height & Weight Height: 5'9.00" Weight: 230lbs. 0.0oz. 104.096148iv; 39.26 BMI Method:Stated General Appearance: Chronically ill HEENT: PERRL/EOMI, Normal ENT Inspection, Pharynx Normal, Moist Mucous Membranes Neck: Full Range of Motion, Normal Inspection, Non Tender Respiratory: Lungs Clear, Normal Breath Sounds, No Accessory Muscle Use Cardiovascular: Regular Rate, Rhythm, No Murmur, Normal Peripheral Pulses Capillary Refill: Less Than 3 Seconds Extremity: Pedal Edema Neurologic/Psychiatric: Alert, Oriented x3, No Motor/Sensory Deficits, Normal Mood/Affect Skin: Normal Color, Warm/Dry, Other (no breakdown noted on exam) Lymphatic: No Adenopathy Results Lab Laboratory Tests 11/11/20 03:05 11/12/20 03:00 Assessment/Plan Assessment/Plan Acute respiratory failure with COVID and ARDS -Pt intubated 11/01 -Vent 400/24/PEEP 10 -- Pt is now requiring %35 -Decrease PEEP to 8. Pt will probably be ready for vent weaning tomorrow. -Precedex, and Fentanyl -Repeat PCT is normal -No current abx -Pt is not on IVF currently -CXR shows worsening left infiltration -Repeat Sputum culture -TF per dietary recommendations - Pt is tolerating -ABG reviewed -s/p Decadron -CVP -Did not qualify for Remdesivir -Proning - D/C -IVF are SL Hypertryglycerides -Hold Propofol PNA -s/p Zosyn 10/28- 11/05 -Continue Merrem -Knight cultures pending UTI with MSSA DM -Monitor -Levemir and scheduled Novolog -Decrease Levemir to 50 units BID Anemia -Monitor CAD -Monitor Morbid obesity Breast cancer hx DVT/Gi ppx -Protonix -Lovenox-- theraputic dosing CHENTE DENISE DO Nov 12, 2020 04:40
[2020-11-12] MEDS: GABAPENTIN 300 MG (NEURONTIN) CAP PO SCH ×3 (05:15→20:30)
--- NOTE | 2020-11-12 07:51 | Diagnostic Imaging Report ---
EXAMINATION: Chest radiograph, portable AP view. DATE: 11/12/2020 2:37 AM INDICATION: 65-year-old female, respiratory failure. COMPARISON: November 11, 2020. FINDINGS: The endotracheal tube is approximately 1.2 cm above the raz. The right-sided PIC line overlies the upper SVC. The nasogastric tube is not well seen. Stable overall appearance of the cardia mediastinal silhouette. There is no identified pneumothorax. There is no large pleural effusion. There are mildly prominent bilateral interstitial markings. IMPRESSION: 1. Unchanged bilateral predominantly interstitial appearing opacities. 2. Support lines and tubes as above. Dictated by: Dictated on workstation # [id number]
[2020-11-12] MEDS: ACETAMINOPHEN 500 MG TAB (TYLENOL) PO PRN (07:58)
[2020-11-12] MEDS: PANTOPRAZOLE 40 MG (PROTONIX) VIAL IV SCH (07:58)
[2020-11-12] MEDS: OMEGA 3 (FISH OIL) 1000 MG CAP PO SCH ×3 (07:58→17:25)
[2020-11-12] MEDS: ENOXAPARIN 300 MG/3 ML (LOVENOX) MULTI-DOSE VIAL SQ SCH ×2 (07:58→20:29)
[2020-11-12] MEDS: amLODIPine 5 MG (NORVASC) TAB PO SCH (07:59)
[2020-11-12] MEDS: ASPIRIN 81 MG CHEW (CHILDREN'S ASA) PO SCH (07:59)
[2020-11-12] MEDS: meTOprolol TARTRATE 25 MG (LOPRESSOR) TABLET PO SCH ×2 (07:59→20:30)
[2020-11-12] MEDS: FERROUS SULF 325 MG (IRON) TAB PO SCH ×3 (07:59→17:25)
[2020-11-12] MEDS: VITAMIN D3 10 MCG (400 UNITS) TABLET PO SCH (14:10)
[2020-11-12] MEDS: FOLIC ACID 1 MG TAB PO SCH (14:10)
[2020-11-12] MEDS: FLUCONAZOLE 100 MG/50 ML IVPB IV SCH (15:57)
[2020-11-12] MEDS: FENOFIBRATE 134 MG (LOFIBRA) CAPSULE PO SCH (20:29)
[2020-11-13] VITALS (29 sets, daily range): BP systolic 101–133; BP diastolic 54–77
[2020-11-13] MEDS: inSUlin ASPART (NovoLOG) 1 UNIT/0.01 ML (CHARGE PER UNIT) SC SCH ×7 (00:10→23:51)
[2020-11-13] MEDS: DexMEDEtomidine PRE MIX 100 ML IV SCH ×12 (00:10→23:59)
[2020-11-13] MEDS: RT-ALBUTEROL INHALER HFA (VENTOLIN HFA) 18 GM IH SCH ×6 (02:29→22:38)
[2020-11-13] MEDS: POTASSIUM CL 10MEQ/50ML IVPB 50 ML IV SCH (02:35)
[2020-11-13] MEDS: MAGNESIUM 1 GM/100 ML IVPB 100 ML IV SCH (02:35)
[2020-11-13] MEDS: CATHETER FLUSH 10 ML SYR IV SCH ×3 (02:35→22:03)
[2020-11-13] MEDS: KCL 20 MEQ TAB (K-DUR) PO SCH (02:35)
[2020-11-13 04:05] LABS: ABG OXYGEN SATURATION 95 % (94-100); ABG PCO2 40 MMHG (35-45); ABG PO2 83 MMHG (79-93); ABG TCO2 25.3 MMOL/L (21.0-31.0); ALLENS TEST ART LINE; INSPIRED O2 40%; PATIENT TEMP 37.8; VENTILATOR YES
[2020-11-13 04:11] LABS: POTASSIUM 4.4 MMOL/L (3.6-5.0)
[2020-11-13 04:12] LABS: CALCIUM 8.5 MG/DL (8.5-10.1)
[2020-11-13 04:17] LABS: PHOSPHORUS 3.2 MG/DL (2.3-4.7)
[2020-11-13 04:19] LABS: MAGNESIUM 2.5 MG/DL (1.6-2.4)
[2020-11-13 05:08] LABS: BASOPHILS % (AUTO) 0 % (0-10); EOSINOPHILS # (AUTO) 0.2 10^3/uL (0.0-0.3); EOSINOPHILS % (AUTO) 2 % (0-10); HEMATOCRIT 28 % (35-52); HEMOGLOBIN 8.2 g/dL (11.5-16.0); LYMPHOCYTES # (AUTO) 0.9 10^3/uL (1.0-4.0); LYMPHOCYTES % (AUTO) 12 % (12-44); MEAN CORPUSCULAR HEMOGLOBIN 27 pg (25-34); MEAN CORPUSCULAR HGB CONC 30 g/dL (32-36); MEAN CORPUSCULAR VOLUME 92 fL (80-99); MONOCYTES # (AUTO) 0.4 10^3/uL (0.0-1.0); MONOCYTES % (AUTO) 5 % (0-12); NEUTROPHILS # (AUTO) 5.9 10^3/uL (1.8-7.8); NEUTROPHILS % (AUTO) 79 % (42-75); PLATELET COUNT 169 10^3/uL (130-400); WHITE BLOOD COUNT 7.4 10^3/uL (4.3-11.0)
[2020-11-13] MEDS: MEROPENEM 500 MG in WATER (STERILE) FOR INJECTION 10 ML IV SCH ×4 (05:17→21:50)
[2020-11-13] MEDS: fentaNYL DRIP PRE-MIX 250 ML IV SCH ×5 (05:17→22:01)
[2020-11-13] MEDS: GABAPENTIN 300 MG (NEURONTIN) CAP PO SCH ×3 (05:21→21:49)
--- NOTE | 2020-11-13 05:53 | Progress Note - Hospitalist ---
Subjective HPI/CC On Admission Date Seen by Provider: Nov 13, 2020 Time Seen by Provider: 11:00 Subjective/Events-last exam Remains intubated RN has no concerns Prognosis poor Family does not wants NH and there will be no chance of independent living at this current time if she survives Objective Exam Vital Signs Vital Signs Date Time Temp Pulse Resp B/P (MAP) Pulse Ox O2 Delivery O2 Flow Rate FiO2 11/14/20 06:00 38.1 64 24 99/56 (70) 98 Mechanical Ventilator 35.00 11/14/20 03:08 35 Capillary Refill : Less Than 3 Seconds General Appearance: No Apparent Distress, WD/WN, Chronically ill, Obese, Other (intubated) Respiratory: Lungs Clear Cardiovascular: Regular Rate, Rhythm Results/Procedures Lab Laboratory Tests 11/14/20 02:35 Patient resulted labs reviewed. Assessment/Plan Assessment and Plan Assess & Plan/Chief Complaint Assessment: COVID-19 PNA on vent Hypoxia Breast cancer hx CAD HTN HLP Plan: O2 Lovenox COVID-19 support 10/21/20: Monitor O2 Monitor BP 10/22/20: Monitor low BP 10/23/20: Monitor BP and BS Adjust meds down 10/24/20: Monitor sugar and BP Monitor for increased O2 requirements 10/30/20: biPAP Monitor closely High risk for decompensation 10/31/20: Maxed on Vapotherm BiPAP also 11/13/20: Vent Prognosis poor Critical Care Critically Ill Patient Diagnosis/Problems Diagnosis/Problems (1) COVID-19 Status: Acute (2) Hypoxia Status: Acute (3) Breast cancer Status: Chronic Qualifiers: Breast location: upper outer quadrant of breast Patient sex: female Laterality: left Permanent Comment: Left mastectomy done in 2014 Last Edited By: Maggie Chandra on Oct 25, 2020 15:38 (4) HTN (hypertension) Status: Chronic Qualifiers: Hypertension type: essential hypertension Qualified Codes: I10 - Essential (primary) hypertension (5) CAD (coronary artery disease) Status: Chronic Qualifiers: Coronary Disease-Associated Artery/Lesion type: [place] artery [place] vs. 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
--- NOTE | 2020-11-13 07:54 | Diagnostic Imaging Report ---
INDICATION: On a ventilator EXAMINATION: Chest 11/13/2020 COMPARISON: 11/12/2020 FINDINGS: The very tip of the lung apices is not included. There is an ET tube tip unremarkable in appearance. A right PICC line tip is in the distal SVC. Heart is prominent. Pulmonary vasculature is mildly congested. Increased interstitial and airspace opacity seen throughout both lungs. No effusions. IMPRESSION: 1. Findings of pulmonary edema with more focal atelectasis or even early infiltrate at the bases. 2. Tubes and lines as above. Dictated by: Dictated on workstation # [id number]
[2020-11-13] MEDS: OMEGA 3 (FISH OIL) 1000 MG CAP PO SCH ×3 (08:09→17:38)
[2020-11-13] MEDS: FERROUS SULF 325 MG (IRON) TAB PO SCH ×3 (08:09→17:38)
[2020-11-13] MEDS: meTOprolol TARTRATE 25 MG (LOPRESSOR) TABLET PO SCH ×2 (08:10→21:00)
[2020-11-13] MEDS: PANTOPRAZOLE 40 MG (PROTONIX) VIAL IV SCH (08:10)
[2020-11-13] MEDS: ASPIRIN 81 MG CHEW (CHILDREN'S ASA) PO SCH (08:10)
[2020-11-13] MEDS: amLODIPine 5 MG (NORVASC) TAB PO SCH (08:10)
[2020-11-13] MEDS: ENOXAPARIN 300 MG/3 ML (LOVENOX) MULTI-DOSE VIAL SQ SCH ×2 (08:13→19:52)
[2020-11-13] MEDS: VITAMIN D3 10 MCG (400 UNITS) TABLET PO SCH (14:38)
[2020-11-13] MEDS: FOLIC ACID 1 MG TAB PO SCH (14:38)
[2020-11-13] MEDS: FLUCONAZOLE 100 MG/50 ML IVPB IV SCH (15:34)
[2020-11-13] MEDS: FENOFIBRATE 134 MG (LOFIBRA) CAPSULE PO SCH (21:49)
[2020-11-14] VITALS (28 sets, daily range): BP systolic 99–154; BP diastolic 56–92
[2020-11-14 03:02] LABS: BASOPHILS % (AUTO) 0 % (0-10); EOSINOPHILS # (AUTO) 0.3 10^3/uL (0.0-0.3); EOSINOPHILS % (AUTO) 5 % (0-10); HEMATOCRIT 25 % (35-52); HEMOGLOBIN 7.2 g/dL (11.5-16.0); LYMPHOCYTES % (AUTO) 14 % (12-44); MEAN CORPUSCULAR HEMOGLOBIN 27 pg (25-34); MEAN CORPUSCULAR HGB CONC 29 g/dL (32-36); MEAN CORPUSCULAR VOLUME 93 fL (80-99); MEAN PLATELET VOLUME 14.8 fL (9.0-12.2); MONOCYTES # (AUTO) 0.4 10^3/uL (0.0-1.0); MONOCYTES % (AUTO) 5 % (0-12); NEUTROPHILS % (AUTO) 72 % (42-75); PLATELET COUNT 206 10^3/uL (130-400); WHITE BLOOD COUNT 6.9 10^3/uL (4.3-11.0)
[2020-11-14] MEDS: RT-ALBUTEROL INHALER HFA (VENTOLIN HFA) 18 GM IH SCH ×6 (03:08→22:34)
[2020-11-14 03:26] LABS: CHLORIDE 113 MMOL/L (98-107); POTASSIUM 4.7 MMOL/L (3.6-5.0); SODIUM 145 MMOL/L (135-145)
[2020-11-14 03:27] LABS: CALCIUM 8.5 MG/DL (8.5-10.1)
[2020-11-14 03:28] LABS: GLUCOSE 135 MG/DL (70-105)
[2020-11-14 03:29] LABS: CARBON DIOXIDE 23 MMOL/L (21-32)
[2020-11-14 03:31] LABS: CREATININE SERUM 0.91 MG/DL (0.60-1.30); GFR ESTIMATED > 60; PHOSPHORUS 3.9 MG/DL (2.3-4.7)
[2020-11-14 03:32] LABS: BUN/CREATININE RATIO 59
[2020-11-14 03:34] LABS: MAGNESIUM 2.5 MG/DL (1.6-2.4)
[2020-11-14] MEDS: fentaNYL DRIP PRE-MIX 250 ML IV SCH ×6 (04:00→22:39)
[2020-11-14] MEDS: DexMEDEtomidine PRE MIX 100 ML IV SCH ×4 (04:00→10:32)
[2020-11-14] MEDS: inSUlin ASPART (NovoLOG) 1 UNIT/0.01 ML (CHARGE PER UNIT) SC SCH ×6 (04:00→23:55)
[2020-11-14 04:40] LABS: ABG BASE EXCESS -0.7 MMOL/L (-2.5-2.5); ABG OXYGEN SATURATION 96 % (94-100); ABG PCO2 39 MMHG (35-45); ABG PO2 86 MMHG (79-93); ABG TCO2 24.3 MMOL/L (21.0-31.0)
[2020-11-14 04:42] LABS: ALLENS TEST YES-POS; INSPIRED O2 32%; PATIENT TEMP 38.1; VENTILATOR YES
[2020-11-14] MEDS: MEROPENEM 500 MG in WATER (STERILE) FOR INJECTION 10 ML IV SCH ×4 (05:44→22:39)
[2020-11-14] MEDS: ACETAMINOPHEN 500 MG TAB (TYLENOL) PO PRN (05:46)
[2020-11-14] MEDS: CATHETER FLUSH 10 ML SYR IV SCH ×3 (06:00→21:03)
[2020-11-14] MEDS: KCL 20 MEQ TAB (K-DUR) PO SCH (06:09)
[2020-11-14] MEDS: MAGNESIUM 1 GM/100 ML IVPB 100 ML IV SCH (06:09)
[2020-11-14] MEDS: POTASSIUM CL 10MEQ/50ML IVPB 50 ML IV SCH (06:09)
[2020-11-14] MEDS: ENOXAPARIN 300 MG/3 ML (LOVENOX) MULTI-DOSE VIAL SQ SCH ×2 (08:05→21:02)
[2020-11-14] MEDS: OMEGA 3 (FISH OIL) 1000 MG CAP PO SCH ×3 (08:05→17:48)
[2020-11-14] MEDS: ASPIRIN 81 MG CHEW (CHILDREN'S ASA) PO SCH (08:06)
[2020-11-14] MEDS: PANTOPRAZOLE 40 MG (PROTONIX) VIAL IV SCH (08:06)
[2020-11-14] MEDS: GABAPENTIN 300 MG (NEURONTIN) CAP PO SCH ×3 (08:06→21:03)
[2020-11-14] MEDS: amLODIPine 5 MG (NORVASC) TAB PO SCH (08:06)
[2020-11-14] MEDS: FERROUS SULF 325 MG (IRON) TAB PO SCH ×3 (08:06→17:48)
[2020-11-14] MEDS: meTOprolol TARTRATE 25 MG (LOPRESSOR) TABLET PO SCH ×2 (08:07→21:03)
--- NOTE | 2020-11-14 08:07 | Diagnostic Imaging Report ---
CHEST 1 VIEW, AP/PA ONLY Indication: COVID positive Comparison: 11/13/2020 Findings: Stable ET and enteric tubes. Bibasilar heterogeneous opacities are not changed. Trace right pleural effusion is stable. No pneumothorax. Stable right PICC. Stable cardiomediastinal silhouette. Impression: 1. Stable support devices. 2. No change in the bilateral pulmonary heterogeneous opacities. Dictated by: Dictated on workstation # [id number]
--- NOTE | 2020-11-14 11:19 | Progress Note - Hospitalist ---
Subjective HPI/CC On Admission Date Seen by Provider: Nov 14, 2020 Time Seen by Provider: 11:30 Subjective/Events-last exam Patient still intubated Unsure of her recovery potential Monitoring closely Prognosis guarded Objective Exam Vital Signs Vital Signs Date Time Temp Pulse Resp B/P (MAP) Pulse Ox O2 Delivery O2 Flow Rate FiO2 11/14/20 19:18 60 24 100 24 11/14/20 18:00 37.8 154/66 (95) Mechanical Ventilator 60.00 Capillary Refill : Less Than 3 Seconds General Appearance: No Apparent Distress, WD/WN, Chronically ill, Obese, Other (intubated) Respiratory: Lungs Clear Cardiovascular: Regular Rate, Rhythm Results/Procedures Lab Laboratory Tests 11/14/20 02:35 11/14/20 15:28 Patient resulted labs reviewed. Assessment/Plan Assessment and Plan Assess & Plan/Chief Complaint Assessment: COVID-19 PNA on vent Hypoxia Breast cancer hx CAD HTN HLP Plan: O2 Lovenox COVID-19 support 10/21/20: Monitor O2 Monitor BP 10/22/20: Monitor low BP 10/23/20: Monitor BP and BS Adjust meds down 10/24/20: Monitor sugar and BP Monitor for increased O2 requirements 10/30/20: biPAP Monitor closely High risk for decompensation 10/31/20: Maxed on Vapotherm BiPAP also 11/13/20: Vent Prognosis poor 11/14/20: VDRF Recovery potential? Critical Care Critically Ill Patient Diagnosis/Problems Diagnosis/Problems (1) COVID-19 Status: Acute (2) Hypoxia Status: Acute (3) Breast cancer Status: Chronic Qualifiers: Breast location: upper outer quadrant of breast Patient sex: female Laterality: left Permanent Comment: Left mastectomy done in 2014 Last Edited By: Maggie Chandra on Oct 25, 2020 15:38 (4) HTN (hypertension) Status: Chronic Qualifiers: Hypertension type: essential hypertension Qualified Codes: I10 - Essential (primary) hypertension (5) CAD (coronary artery disease) Status: Chronic Qualifiers: Coronary Disease-Associated Artery/Lesion type: [place] artery [place] vs. transplanted heart: [place] heart Associated angina: without angina Qualified Codes: I25.10 - Atherosclerotic heart disease of [place] coronary artery without angina pectoris (6) Diabetes mellitus Status: Chronic Qualifiers: Diabetes mellitus type: type 2 Diabetes mellitus detention insulin use: with terminal gauger use Diabetes mellitus complication status: with neurologic complications Diabetes mellitus complication detail: with polyneuropathy Qualified Codes: E11.42 - Type 2 diabetes mellitus with diabetic polyneuropathy; Z79.4 - alf (current) use of insulin Clinical Quality Measures DVT/VTE Risk/Contraindication: Risk Factor Score Per Nursin RFS Level Per Nursing on Admit: 3=High MADINA MCCARTY DO Nov 14, 2020 11:18
[2020-11-14] MEDS: VITAMIN D3 10 MCG (400 UNITS) TABLET PO SCH (14:06)
[2020-11-14] MEDS: FOLIC ACID 1 MG TAB PO SCH (14:06)
[2020-11-14] MEDS: FLUCONAZOLE 100 MG/50 ML IVPB IV SCH (15:31)
[2020-11-14 15:35] LABS: HEMOGLOBIN 7.7 g/dL (11.5-16.0)
[2020-11-14 15:37] LABS: MEAN PLATELET VOLUME 13.9 fL (9.0-12.2); WHITE BLOOD COUNT 8.8 10^3/uL (4.3-11.0)
[2020-11-14] MEDS: FENOFIBRATE 134 MG (LOFIBRA) CAPSULE PO SCH (21:03)
[2020-11-14] MEDS ORDERED: DexMEDEtomidine PRE MIX 0 ML IV ONE (21:49)
[2020-11-15] VITALS (31 sets, daily range): BP systolic 129–184; BP diastolic 65–103
[2020-11-15] MEDS: RT-ALBUTEROL INHALER HFA (VENTOLIN HFA) 18 GM IH SCH ×6 (02:30→21:12)
[2020-11-15] MEDS: fentaNYL DRIP PRE-MIX 250 ML IV SCH (03:24)
[2020-11-15 03:43] LABS: ABG BASE EXCESS -1.2 MMOL/L (-2.5-2.5); ABG OXYGEN SATURATION 89 % (94-100); ABG PCO2 40 MMHG (35-45); ABG PH 7.38 (7.37-7.43); ABG PO2 67 MMHG (79-93); ABG TCO2 24.4 MMOL/L (21.0-31.0); ALLENS TEST YES-POS
[2020-11-15 03:44] LABS: INSPIRED O2 35%; PATIENT TEMP 37.4; VENTILATOR YES
[2020-11-15 03:47] LABS: BASOPHILS % (AUTO) 0 % (0-10); EOSINOPHILS # (AUTO) 0.5 10^3/uL (0.0-0.3); HEMATOCRIT 26 % (35-52); HEMOGLOBIN 7.4 g/dL (11.5-16.0); MEAN CORPUSCULAR HEMOGLOBIN 27 pg (25-34); MEAN CORPUSCULAR HGB CONC 29 g/dL (32-36); MEAN CORPUSCULAR VOLUME 94 fL (80-99)
[2020-11-15 03:49] LABS: EOSINOPHILS % (AUTO) 5 % (0-10); LYMPHOCYTES # (AUTO) 0.8 10^3/uL (1.0-4.0); LYMPHOCYTES % (AUTO) 9 % (12-44); MEAN PLATELET VOLUME 13.9 fL (9.0-12.2); MONOCYTES # (AUTO) 0.5 10^3/uL (0.0-1.0); MONOCYTES % (AUTO) 5 % (0-12); NEUTROPHILS # (AUTO) 7.5 10^3/uL (1.8-7.8); NEUTROPHILS % (AUTO) 76 % (42-75); PLATELET COUNT 272 10^3/uL (130-400); WHITE BLOOD COUNT 9.9 10^3/uL (4.3-11.0)
[2020-11-15 03:58] LABS: CHLORIDE 115 MMOL/L (98-107); POTASSIUM 4.1 MMOL/L (3.6-5.0); SODIUM 146 MMOL/L (135-145)
[2020-11-15 04:00] LABS: CALCIUM 8.4 MG/DL (8.5-10.1); GLUCOSE 253 MG/DL (70-105)
[2020-11-15 04:02] LABS: CARBON DIOXIDE 22 MMOL/L (21-32)
[2020-11-15 04:04] LABS: CREATININE SERUM 0.83 MG/DL (0.60-1.30); GFR ESTIMATED > 60; PHOSPHORUS 2.7 MG/DL (2.3-4.7)
--- NOTE | 2020-11-15 04:19 | Pulmonary Progress Note ---
Subjective Time Seen by a Provider: 04:14 Subjective/Events-last exam Pt is awake on vent. Sepsis Event Evaluation Height, Weight, BMI Height: 5'9.00" Weight: 230lbs. 0.0oz. 104.629226mv; 39.26 BMI Method:Stated Exam Exam Vital Signs Date Time Temp Pulse Resp B/P (MAP) Pulse Ox O2 Delivery O2 Flow Rate FiO2 11/15/20 02:30 91 29 95 35 11/14/20 23:00 37.8 71 16 133/78 (96) 95 Mechanical Ventilator 35.00 11/14/20 22:40 Mechanical Ventilator 35.00 11/14/20 22:34 77 26 100 50 11/14/20 22:00 37.7 75 12 140/76 (97) 100 Mechanical Ventilator 50.00 11/14/20 21:06 Mechanical Ventilator 50.00 11/14/20 21:00 37.9 59 21 135/64 (87) 100 Mechanical Ventilator 60.00 11/14/20 20:00 37.8 61 18 143/64 (90) 100 Mechanical Ventilator 60.00 11/14/20 20:00 Mechanical Ventilator 60 11/14/20 19:18 60 24 100 60 11/14/20 19:00 61 11/14/20 19:00 37.8 61 25 140/66 (90) 100 Mechanical Ventilator 60.00 11/14/20 18:00 37.8 75 16 154/66 (95) 100 Mechanical Ventilator 60.00 11/14/20 17:51 Mechanical Ventilator 60.00 11/14/20 17:00 37.6 68 14 146/73 (97) 100 Mechanical Ventilator 32.00 11/14/20 16:00 37.6 75 13 137/92 (107) 100 Mechanical Ventilator 35.00 11/14/20 15:00 37.3 67 14 137/66 (89) 100 Mechanical Ventilator 35.00 11/14/20 14:00 37.2 64 13 136/59 (84) 92 Mechanical Ventilator 35.00 11/14/20 13:00 37.2 66 16 149/62 (91) 93 Mechanical Ventilator 35.00 11/14/20 12:56 65 11/14/20 12:00 37.2 60 19 113/81 (92) 96 Mechanical Ventilator 35.00 11/14/20 11:00 37.2 71 17 153/70 (97) 92 Mechanical Ventilator 35.00 11/14/20 10:32 71 11/14/20 10:00 37.4 66 24 125/64 (84) 95 Mechanical Ventilator 35.00 11/14/20 09:00 37.6 70 20 123/65 (84) 95 Mechanical Ventilator 35.00 11/14/20 08:14 69 108/59 11/14/20 08:00 37.7 67 24 108/59 (75) 94 Mechanical Ventilator 35.00 11/14/20 07:34 92 Mechanical Ventilator 32 11/14/20 07:01 69 27 95 28 11/14/20 07:00 38.1 64 14 103/59 (74) 98 Mechanical Ventilator 35.00 11/14/20 07:00 78 11/14/20 06:52 38.1 11/14/20 06:00 38.1 64 24 99/56 (70) 98 Mechanical Ventilator 35.00 11/14/20 05:55 65 11/14/20 05:46 38.1 11/14/20 05:00 38.1 66 24 119/67 (84) 97 Mechanical Ventilator 35.00 I & O 11/15/20 07:00 Intake Total 3210 ml Output Total 1775 ml Balance 1435 ml Height & Weight Height: 5'9.00" Weight: 230lbs. 0.0oz. 104.997034ga; 39.26 BMI Method:Stated General Appearance: No Apparent Distress, WD/WN, Chronically ill, Obese, Other (intubated) HEENT: PERRL/EOMI, Normal ENT Inspection, Pharynx Normal, Moist Mucous Membranes Neck: Full Range of Motion, Normal Inspection, Non Tender Respiratory: Lungs Clear Cardiovascular: Regular Rate, Rhythm Capillary Refill: Less Than 3 Seconds Extremity: Pedal Edema Neurologic/Psychiatric: Alert, Oriented x3, No Motor/Sensory Deficits, Normal Mood/Affect Skin: Normal Color, Warm/Dry, Other (no breakdown noted on exam) Lymphatic: No Adenopathy Results Lab Laboratory Tests 11/14/20 02:35 11/14/20 15:28 11/15/20 03:25 Assessment/Plan Assessment/Plan Acute respiratory failure with COVID and ARDS -Pt intubated 11/01 -Vent 400/24/PEEP 7.5 -- Pt is now requiring %35 -Decrease PEEP 5 -Precedex, and d/c Fentanyl -CXR shows worsening left infiltration -Repeat Sputum culture -TF per dietary recommendations - Pt is tolerating -ABG reviewed -s/p Decadron -CVP -Did not qualify for Remdesivir -Proning - D/C -IVF are SL Hypertryglycerides -Hold Propofol PNA -s/p Zosyn 10/28- 11/05 -Continue Merrem -Knight cultures pending UTI with MSSA DM -Monitor -Levemir and scheduled Novolog -Decrease Levemir to 50 units BID Anemia -Monitor CAD -Monitor Morbid obesity Breast cancer hx DVT/Gi ppx -Protonix -Lovenox-- theraputic dosing CHENTE DENISE DO Nov 15, 2020 04:19
[2020-11-15 04:20] LABS: BUN/CREATININE RATIO 53
[2020-11-15 04:21] LABS: MAGNESIUM 2.2 MG/DL (1.6-2.4)
[2020-11-15] MEDS: POTASSIUM CL 10MEQ/50ML IVPB 50 ML IV SCH (05:06)
[2020-11-15] MEDS: KCL 20 MEQ TAB (K-DUR) PO SCH (05:07)
[2020-11-15] MEDS: MAGNESIUM 1 GM/100 ML IVPB 100 ML IV SCH (05:07)
[2020-11-15] MEDS: inSUlin ASPART (NovoLOG) 1 UNIT/0.01 ML (CHARGE PER UNIT) SC SCH ×5 (05:37→19:46)
[2020-11-15] MEDS: GABAPENTIN 300 MG (NEURONTIN) CAP PO SCH ×3 (05:54→21:26)
[2020-11-15] MEDS: CATHETER FLUSH 10 ML SYR IV SCH ×3 (06:52→21:26)
--- NOTE | 2020-11-15 07:03 | Diagnostic Imaging Report ---
Indication: Pneumonia, intubated Comparison: 11/14/2020 Findings: Single view of the chest demonstrates stable bibasilar atelectasis and/or infiltrate. There is no pneumothorax. The heart size is stable. Support devices are unchanged. Impression: Stable atelectasis and/or infiltrate in both bases. Dictated by: Dictated on workstation # [id number]
[2020-11-15] MEDS: ASPIRIN 81 MG CHEW (CHILDREN'S ASA) PO SCH (08:14)
[2020-11-15] MEDS: PANTOPRAZOLE 40 MG (PROTONIX) VIAL IV SCH (08:14)
[2020-11-15] MEDS: amLODIPine 5 MG (NORVASC) TAB PO SCH (08:14)
[2020-11-15] MEDS: meTOprolol TARTRATE 25 MG (LOPRESSOR) TABLET PO SCH ×2 (08:14→21:25)
[2020-11-15] MEDS: FERROUS SULF 325 MG (IRON) TAB PO SCH ×3 (08:14→17:08)
[2020-11-15] MEDS: OMEGA 3 (FISH OIL) 1000 MG CAP PO SCH ×3 (08:14→17:08)
[2020-11-15] MEDS: ENOXAPARIN 300 MG/3 ML (LOVENOX) MULTI-DOSE VIAL SQ SCH ×2 (08:16→20:47)
--- NOTE | 2020-11-15 08:41 | NUR ---
0830 ASSESSMENT COMPLETE SEE FLOW SHEET, PT AWAKENS TO VERBAL STIMULI, IS ABLE TO FOLLOW ALL COMMANDS, ALL SEDATION OFF 0840 RT TO ROOM AND VENT CHANGES MADE PER DR DENISE ORDERS.
[2020-11-15 11:25] LABS: ABG BASE EXCESS -1.3 MMOL/L (-2.5-2.5); ABG OXYGEN SATURATION 93 % (94-100); ABG PCO2 35 MMHG (35-45); ABG PH 7.43 (7.37-7.43); ABG PO2 70 MMHG (79-93); ABG TCO2 23.3 MMOL/L (21.0-31.0)
[2020-11-15 11:26] LABS: ALLENS TEST YES-POS; INSPIRED O2 30; PATIENT TEMP 37.7; VENTILATOR YES
--- NOTE | 2020-11-15 12:25 | NUR ---
1130 DR DENISE NOTIFIED OF ABG RESULTS, ORDERS RECEIVED TO EXTUBATE PT AND PLACE ON VAPOTHERM 1223 PT EXTUBATED BY RT AND PLACED ON 40l 100% ON VAPOTHERM WITH SA02 NOTED IN AT 97%, RESTRAINTS REMOVED.
--- NOTE | 2020-11-15 13:01 | NUR ---
Offered prayer and calm presence. Pt was non-responsive this visit.
[2020-11-15] MEDS: FOLIC ACID 1 MG TAB PO SCH (13:57)
[2020-11-15] MEDS: VITAMIN D3 10 MCG (400 UNITS) TABLET PO SCH (13:58)
--- NOTE | 2020-11-15 14:19 | NUR ---
1330 FAMILY UPDATED ON PT'S CONDITION
[2020-11-15] MEDS: FENOFIBRATE 134 MG (LOFIBRA) CAPSULE PO SCH (21:25)
[2020-11-16] VITALS (14 sets, daily range): BP systolic 135–188; BP diastolic 72–89
[2020-11-16] MEDS: inSUlin ASPART (NovoLOG) 1 UNIT/0.01 ML (CHARGE PER UNIT) SC SCH ×6 (00:41→21:00)
[2020-11-16] MEDS: RT-ALBUTEROL INHALER HFA (VENTOLIN HFA) 18 GM IH SCH ×6 (01:30→21:26)
[2020-11-16 02:26] LABS: BASOPHILS % (AUTO) 0 % (0-10); EOSINOPHILS % (AUTO) 0 % (0-10); MEAN PLATELET VOLUME 13.5 fL (9.0-12.2)
[2020-11-16 02:28] LABS: ABG BASE EXCESS -1.2 MMOL/L (-2.5-2.5); ABG OXYGEN SATURATION 97 % (94-100); ABG PCO2 33 MMHG (35-45); ABG PH 7.45 (7.37-7.43); ABG PO2 85 MMHG (79-93); ABG TCO2 23.3 MMOL/L (21.0-31.0); HEMATOCRIT 25 % (35-52); HEMOGLOBIN 7.5 g/dL (11.5-16.0); LYMPHOCYTES # (AUTO) 1.1 10^3/uL (1.0-4.0); LYMPHOCYTES % (AUTO) 8 % (12-44); MEAN CORPUSCULAR HEMOGLOBIN 27 pg (25-34); MEAN CORPUSCULAR HGB CONC 30 g/dL (32-36); MEAN CORPUSCULAR VOLUME 92 fL (80-99); MONOCYTES # (AUTO) 0.7 10^3/uL (0.0-1.0); MONOCYTES % (AUTO) 5 % (0-12); NEUTROPHILS # (AUTO) 11.1 10^3/uL (1.8-7.8); NEUTROPHILS % (AUTO) 79 % (42-75); PLATELET COUNT 414 10^3/uL (130-400); WHITE BLOOD COUNT 14.1 10^3/uL (4.3-11.0)
[2020-11-16 02:37] LABS: ALLENS TEST YES-POS; INSPIRED O2 35%; PATIENT TEMP 37.3; VENTILATOR YES
[2020-11-16 02:38] LABS: CHLORIDE 115 MMOL/L (98-107); POTASSIUM 4.3 MMOL/L (3.6-5.0); SODIUM 147 MMOL/L (135-145)
[2020-11-16 02:39] LABS: CALCIUM 8.7 MG/DL (8.5-10.1)
[2020-11-16 02:40] LABS: GLUCOSE 160 MG/DL (70-105)
[2020-11-16 02:42] LABS: CARBON DIOXIDE 22 MMOL/L (21-32)
[2020-11-16 02:44] LABS: CREATININE SERUM 0.79 MG/DL (0.60-1.30); GFR ESTIMATED > 60; PHOSPHORUS 2.6 MG/DL (2.3-4.7)
[2020-11-16 02:45] LABS: BUN/CREATININE RATIO 47
[2020-11-16 02:46] LABS: MAGNESIUM 2.4 MG/DL (1.6-2.4)
--- NOTE | 2020-11-16 05:31 | Pulmonary Progress Note ---
Subjective Time Seen by a Provider: 05:31 Sepsis Event Evaluation Height, Weight, BMI Height: 5'9.00" Weight: 230lbs. 0.0oz. 104.912103ao; 39.26 BMI Method:Stated Exam Exam Vital Signs Date Time Temp Pulse Resp B/P (MAP) Pulse Ox O2 Delivery O2 Flow Rate FiO2 11/16/20 03:00 105 13 135/72 (93) 94 NIV Bilevel 35.00 11/16/20 02:00 37.2 107 17 159/86 (110) 92 NIV Bilevel 35.00 11/16/20 01:30 103 33 95 35.00 11/16/20 01:00 37.2 100 29 164/86 (112) 94 NIV Bilevel 35.00 11/16/20 00:41 NIV Bilevel 35.00 11/16/20 00:00 37.3 108 28 185/84 (117) 96 NIV Bilevel 40.00 11/15/20 23:00 37.3 102 27 164/81 (108) 95 NIV Bilevel 40.00 11/15/20 22:00 37.3 102 25 184/103 (130) 95 NIV Bilevel 40.00 11/15/20 21:13 101 30 95 40.00 11/15/20 21:00 37.3 101 28 168/83 (111) 95 NIV Bilevel 40.00 11/15/20 20:47 NIV Bilevel 40.00 11/15/20 20:00 NIV Bilevel 40 11/15/20 20:00 37.4 111 28 174/84 (114) 96 NIV Bilevel 50.00 11/15/20 19:00 37.4 102 18 164/89 (114) 96 NIV Bilevel 50.00 11/15/20 19:00 102 11/15/20 19:00 NIV Bilevel 50.00 11/15/20 18:23 104 28 98 60.00 11/15/20 18:00 37.4 169 27 169/82 (111) 98 NIV Bilevel 60.00 11/15/20 17:00 37.6 109 39 156/92 (113) 95 NIV Bilevel 60.00 11/15/20 16:00 37.6 107 12 161/80 (107) 94 NIV Bilevel 60.00 11/15/20 15:00 37.6 167 24 167/84 (111) 94 NIV Bilevel 60.00 11/15/20 14:00 37.7 105 24 176/87 (116) 94 NIV Bilevel 60.00 11/15/20 13:42 103 24 94 60.00 11/15/20 13:30 NIV Bilevel 60.00 11/15/20 13:25 98 26 95 60.00 11/15/20 13:00 37.6 102 11 169/77 (107) 83 Vapotherm 40.00 55.00 11/15/20 12:44 104 11/15/20 12:33 Vapotherm 40.00 55.00 11/15/20 12:00 37.7 87 16 168/75 (106) 92 Mechanical Ventilator 40.00 11/15/20 11:18 83 15 92 35 11/15/20 11:00 37.6 79 15 160/71 (100) 94 Mechanical Ventilator 40.00 11/15/20 10:00 37.7 77 17 157/72 (100) 91 Mechanical Ventilator 40.00 11/15/20 09:00 37.8 71 15 142/66 (91) 95 Mechanical Ventilator 40.00 11/15/20 08:45 97 Mechanical Ventilator 30 11/15/20 08:00 37.7 60 22 137/68 (91) 96 Mechanical Ventilator 40.00 11/15/20 07:41 62 24 97 40 11/15/20 07:00 37.8 58 24 130/65 (86) 98 Mechanical Ventilator 40.00 11/15/20 06:26 63 11/15/20 06:20 Mechanical Ventilator 40.00 11/15/20 06:01 Mechanical Ventilator 45.00 11/15/20 06:00 37.7 72 30 140/69 (92) 97 Mechanical Ventilator 50.00 11/15/20 05:36 Mechanical Ventilator 50.00 I & O 11/16/20 07:00 Intake Total 260 ml Output Total 1250 ml Balance -990 ml Height & Weight Height: 5'9.00" Weight: 230lbs. 0.0oz. 104.787800lz; 39.26 BMI Method:Stated General Appearance: No Apparent Distress, WD/WN, Chronically ill, Obese, Other (intubated) HEENT: PERRL/EOMI, Normal ENT Inspection, Pharynx Normal, Moist Mucous Membranes Neck: Full Range of Motion, Normal Inspection, Non Tender Respiratory: Lungs Clear Cardiovascular: Regular Rate, Rhythm Capillary Refill: Less Than 3 Seconds Extremity: Pedal Edema Neurologic/Psychiatric: Alert, Oriented x3, No Motor/Sensory Deficits, Normal Mood/Affect Skin: Normal Color, Warm/Dry, Other (no breakdown noted on exam) Lymphatic: No Adenopathy Results Lab Laboratory Tests 11/14/20 15:28 11/15/20 03:25 11/16/20 02:00 Assessment/Plan Assessment/Plan Acute respiratory failure with COVID and ARDS -s/P EXTUBATION -CXR shows worsening left infiltration -Repeat Sputum culture -ABG reviewed -s/p Decadron -CVP -Did not qualify for Remdesivir -Proning - D/C -IVF are SL Hypertryglycerides -Hold Propofol PNA -s/p Zosyn 10/28- 11/05 -Continue Merrem -Knight cultures pending UTI with MSSA DM -Monitor -Levemir and scheduled Novolog -Decrease Levemir to 50 units BID Anemia -Monitor CAD -Monitor Morbid obesity Breast cancer hx DVT/Gi ppx -Protonix -Lovenox-- theraputic dosing CHENTE DENISE DO Nov 16, 2020 05:31
[2020-11-16] MEDS: CATHETER FLUSH 10 ML SYR IV SCH ×3 (06:51→21:01)
[2020-11-16] MEDS: MAGNESIUM 1 GM/100 ML IVPB 100 ML IV SCH (06:51)
[2020-11-16] MEDS: KCL 20 MEQ TAB (K-DUR) PO SCH (06:51)
[2020-11-16] MEDS: POTASSIUM CL 10MEQ/50ML IVPB 50 ML IV SCH (06:51)
[2020-11-16] MEDS: GABAPENTIN 300 MG (NEURONTIN) CAP PO SCH ×3 (06:51→21:01)
--- NOTE | 2020-11-16 07:38 | Diagnostic Imaging Report ---
CLINICAL INDICATION: Patient Covid positive and on ventilator. EXAM: Portable chest x-ray upright view. COMPARISONS: Chest x-ray dated 11/15/2020. FINDINGS: There is interval removal of the ET tube and feeding tube. Right PICC line seen in stable good position. There is no significant change in the bibasilar lung infiltrates. Otherwise, lungs are well aerated. There is no pleural effusion or pneumothorax. Pulmonary vasculature and cardiac silhouette is within normal limits for portable projection. The remainder of this exam shows no significant interval change compared to the prior study of comparison. IMPRESSION: 1: Interval movement of the previously seen ET tube. 2: There is stable mild bibasilar infiltrates. Dictated by: Dictated on workstation # [id number]
[2020-11-16] MEDS: amLODIPine 5 MG (NORVASC) TAB PO SCH (08:00)
[2020-11-16] MEDS: ASPIRIN 81 MG CHEW (CHILDREN'S ASA) PO SCH (08:00)
[2020-11-16] MEDS: FERROUS SULF 325 MG (IRON) TAB PO SCH ×3 (08:00→17:20)
[2020-11-16] MEDS: meTOprolol TARTRATE 25 MG (LOPRESSOR) TABLET PO SCH ×2 (08:00→21:01)
[2020-11-16] MEDS: OMEGA 3 (FISH OIL) 1000 MG CAP PO SCH ×3 (08:00→17:20)
[2020-11-16] MEDS: PANTOPRAZOLE 40 MG (PROTONIX) VIAL IV SCH (08:49)
[2020-11-16] MEDS: hydrALAZINE (APESOLINE) 20 MG/ML VIAL IV PRN (08:50)
[2020-11-16] MEDS: ENOXAPARIN 300 MG/3 ML (LOVENOX) MULTI-DOSE VIAL SQ SCH ×2 (08:51→21:00)
--- NOTE | 2020-11-16 13:48 | ST Dysphagia Evaluation ---
Speech Evaluation-General Medical Diagnosis COVID-19 Onset Date: Nov 16, 2020 Therapy Diagnosis Therapy Diagnosis: Oropharyngeal Dysphagia Precautions Precautions: Aspiration Precautions/Isolations: Aspiration Referral Referring Physician: Dr. Longoria Medical History Pertinent Medical History: Smoking Reviewed History: Yes Speech PLF/Current-Dysphagia Prior Level of Function Patient's prior level of function is unknown at this time. Subjective Patient was alert and cooperative with the Bedside Dysphagia Evaluation. Oral Motor Skills Dentition: Edentalous Ability to Follow Directions: Good Patient was NPO pending BDE. Oral Expression Ability: Moderate Impairment Voice Voice Phonatory-Based Quality: Weak Voice Pitch: Normal Voice Loudness: Moderately Soft/Quiet Face Facial Symmetry: Symmetrical Oral-Facial Assessment Oral-Facial Dentition: Normal Lingual Protrusion: Normal Lingual ROM: Normal Lingual Strength: Normal Pharynx Velopharyngeal Move.: Normal Volitional Dry Swallow: Yes Dysphagia Evaluation Consistencies Presented: Thin Liquid, Mechanical Soft, Pureed Patient exhibited within normal range of function for oral phase with presented consistencies. Patient exhibited within normal range of function for pharyngeal phase with presented consistencies. Dietary Recommendations: Mechanical Soft Liquid Recommendations: Thin Nursing called clinician following oral presentations and stated the patient was coughing following tsp sip of thin water and puree (applesauce) ST advised nurse to downgrade to honey consistency and Dysphagia I for the next [address] will follow up with patient status in the am. Swallowing Precautions: Alternate Liquids/Solids, Double Swallow, Decreased Bolus 1/2 Tsp, Liquids from Straw, Liquids from Spoon, Small Bites and Sips, Sitting Upright 90 Degrees, Sitting 90 Degrees 30 Post Intake Dysphagia Evaluation Summary Patient was admitted to the hospital with SOB on 10/19/2020. Patient was positive for COVID-19 and intubated. She was extubated today with referral for BDE to be completed. Patient was seen for evaluation with the following presentations. Thin liquids via 1/2 tsp x3 and small sips via straw x3 without difficulty, choking or s/s of aspiration. Patient was also presented with 1/2 tsp of puree (applesauce) and mechanical soft ( soft peach) without difficulty. Patient was not given regular texture due to being edentulous. Patient was initially recommended for Dysphagia II with thin liquids based on BDE results. Nursing called clinician following oral presentations and stated the patient was coughing following tsp sip of thin water and puree (applesauce) ST advised nurse to downgrade to honey consistency and Dysphagia I for the next [address] will follow up with patient status in the am. Barriers to Learning Patient's recent serious illness for the past few weeks. Speech Short Term Goals Short Term Goals Short Term Goals 1) Patient will tolerate the least restrictive diet level without s/s of aspiration at 80% or greater. 2) Patient/caregiver will utilize compensatory strategies as trained for safe oral intake at 90% or greater with minimal cues. Speech Local Operator Goals Local Operator Goals Patient will maintain adequate nutrition/hydration via safe effective swallow function. Speech-Plan Patient/Family Goals Patient/Family Goals: Patient's discharge plans are unknown at this time. Treatment Plan Speech Therapy Treatment Plan: Continue Plan of Care Treatment Duration: Nov 24, 2020 Frequency: 3 times per week Estimated Hrs Per Day: .25 hour per day Rehab Potential: Guarded Barriers to Learning: Patient's recent serious illness for the past few weeks. Pt/Family Agrees to Plan: Yes Safety Risks/Education Teaching Recipient: Patient Teaching Methods: Discussion Response to Teaching: Verbalize Understanding, Reinforcement Needed Education Topics Provided: Safety of oral intake, diet levels Time Speech Therapy Time In: 09:00 Speech Therapy Time Out: 09:20 Total Billed Time: 20 Billed Treatment Time 1, FEDERICO SEGOVIA [address] ST Nov 16, 2020 13:48
--- NOTE | 2020-11-16 13:55 | NUR ---
1300 SPOKE TO ADRIENNE WITH SPEECH THERAPY, PT CONTINUES TO CHOKE WITH SMALL SIPS OF WATER, PER HER RECOMMENDATIONS PT CHANGED TO DYS1 WITH HONEY THICKENED LIQUIDS. 1330 PT TOLERATED HONEY THICKENED LIQUIDS. WILL CONTINUE TO MONITOR
--- NOTE | 2020-11-16 14:28 | Physical Therapy Evaluation ---
PT Evaluation-General Medical Diagnosis Admission Date Oct 19, 2020 at 18:18 Medical Diagnosis: COVID-19 Onset Date: Nov 16, 2020 Therapy Diagnosis Therapy Diagnosis: debility/decreased pulmonary function Height/Weight Height (Feet): 5 Height (Inches): 9.00 Weight (Pounds): 230 Weight (Ounces): 0.0 Precautions Precautions/Isolations: Airborne Isolation, Aspiration Referral Physician: Swati Reason for Referral: Evaluation/Treatment Medical History Pertinent Medical History: Breast CA S/P Mastectomy, CAD, DM, HTN, [place], Renal Insufficiency, Smoking Current History EMS secondary to decreased SAO2 on RA, weakness/myalgia Reviewed History: Yes Prior Prior Level of Function SCALE: Activities may be completed with or without assistive devices. 6-Ylicddsuxt-jqdrpra completes the activity by him/herself with no assistance from a helper. 5-Set-up or Clean-up Assistance-helper sets up or cleans up; patient completes activity. [place] assists only prior to or following the activity. 4-Supervision or Touching Assistance-helper provides verbal cues and/or touching/steadying and/or contact guard assistance as patient completes activity. Assistance may be provided throughout the activity or intermittently. 3-Partial/Moderate Assistance-helper does LESS THAN HALF the effort. [place] lifts, holds or supports trunk or limbs, but provides less than half the effort. 2-Substantial/Maximal Assistance-helper does MORE THAN HALF the effort. [place] lifts or holds trunk or limbs and provides more than half the effort. 3-Wyxzeqilv-mostfg does ALL the effort. Patient does none of the effort to complete the activity. Or, the assistance of 2 or more helpers is required for the patient to complete the activity. If activity was not attempted, code reason: 7-Patient Refused. 9-Not Applicable-not attempted and the patient did not perform the activity before the current illness, exacerbation or injury. 10-Not Attempted due to Environmental Limitations-(lack of equipment, weather restraints, etc.). 88-Not Attempted due to Medical Conditions or Safety Concerns. Bed Mobility: 6 Transfers (B,C,W/C): 6 Gait: 6 Stairs: 6 Indoor Mobility (Ambulation): Independent Stairs: Independent PT Evaluation-Current Subjective Patient agrees to PT. Objective Patient Orientation: Listless Attachments: Oxygen (vapotherm), Gonzales Catheter, IV ROM/Strength ROM Lower Extremities bilateral LE WFL Strength Lower Extremities 1/5 grossly bilateral LE Integumentary/Posture Integumentary refer to nursing notes Bowel Incontinence: Yes Bladder Incontinence: Gonzales Cath Neuromuscular (Tone, Coordination, Reflexes) severely diminished with all Sensory Vision: Unable to Assess Hearing: Functional Transfers Roll Left to Right (QC): 1 Sit to Lying (QC): 88 Lying to Sitting/Side of Bed(Q: 88 Sit to Stand (QC): 88 Chair/Qng-zf-Zblgt Xfer(QC): 88 Toilet Transfer (QC): 88 Gait Does the Patient Walk?: No and Walking Goal IS indicated Treatment bilateral LE PROM all planes in supine 15 reps each Assessment/Needs 65 y.o. female, with prolonged hospital stay and recently extubated, will benefit from skilled PT to address functional strength and mobility. From a PT standpoint, patient will require extended care facility due to extensive weakness and impaired mobility. Rehab Potential: Guarded PT Short Term Goals Short Term Goals Time Frame: Dec 04, 2020 Roll Left & Right: 2 Sit to lyin Lying to sitting on side of be: 2 Sit to stand: 1 Chair/bzt-ov-ncdjj transfer: 1 PT Electronics Tech Goals Shelter Goals PT Shelter Goals Time Frame: Jan 01, 2021 Roll Left & Right (QC): 4 Sit to Lying (QC): 4 Lying-Sitting on Side/Bed(QC): 4 Sit to Stand (QC): 4 Chair/Ahk-ji-Hzttt Xfer(QC): 4 Toilet Transfer (QC): 4 Does the Patient Walk: Yes Walk 10 feet (QC): 3 Walk 50ft with 2 Turns (QC): 3 PT Plan Problem List Problem List: Activity Tolerance, Functional Strength, Safety, Balance, Gait, Transfer, Bed Mobility, ROM Treatment/Plan Treatment Plan: Continue Plan of Care Treatment Plan: Bed Mobility, Education, Functional Activity Earn[place], Functional Strength, Gait, Safety, Therapeutic Exercise, Transfers Treatment Duration: Jan 01, 2021 Frequency: 5 times per week Estimated Hrs Per Day: .25 hour per day (to .5 ) Patient and/or Family Agrees t: Yes Discharge Recommendations Therapy Discharge Recommendati: Other, See Comments (retirement facility) Time/GCodes Time In: 1300 Time Out: 1313 Total Billed Treatment Time: 13 Total Billed Treatment 1 visit EVMod 13 min ROSS DIAZ PT Nov 16, 2020 14:28
[2020-11-16] MEDS: FOLIC ACID 1 MG TAB PO SCH (14:30)
[2020-11-16] MEDS: VITAMIN D3 10 MCG (400 UNITS) TABLET PO SCH (14:30)
[2020-11-16] MEDS: ACETAMINOPHEN 500 MG TAB (TYLENOL) PO PRN (15:35)
--- NOTE | 2020-11-16 18:30 | NUR ---
UPDATED DAUGHTER IN LAW ON PT.
[2020-11-16] MEDS: FENOFIBRATE 134 MG (LOFIBRA) CAPSULE PO SCH (21:01)
[2020-11-16] MEDS: MICONAZOLE 2% POWDER (DESENEX AF) 90 GM TOP SCH (21:01)
[2020-11-17] VITALS (8 sets, daily range): BP systolic 151–173; BP diastolic 72–81
[2020-11-17] MEDS: inSUlin ASPART (NovoLOG) 1 UNIT/0.01 ML (CHARGE PER UNIT) SC SCH ×5 (00:37→22:18)
[2020-11-17] MEDS: RT-ALBUTEROL INHALER HFA (VENTOLIN HFA) 18 GM IH SCH ×6 (02:14→22:20)
[2020-11-17 04:05] LABS: BASOPHILS % (AUTO) 0 % (0-10); EOSINOPHILS # (AUTO) 0.2 10^3/uL (0.0-0.3); EOSINOPHILS % (AUTO) 2 % (0-10); HEMATOCRIT 24 % (35-52); LYMPHOCYTES % (AUTO) 9 % (12-44); MEAN CORPUSCULAR HEMOGLOBIN 27 pg (25-34); MEAN CORPUSCULAR HGB CONC 29 g/dL (32-36); MEAN CORPUSCULAR VOLUME 93 fL (80-99); MEAN PLATELET VOLUME 13.1 fL (9.0-12.2); MONOCYTES # (AUTO) 0.9 10^3/uL (0.0-1.0); MONOCYTES % (AUTO) 8 % (0-12); NEUTROPHILS # (AUTO) 7.6 10^3/uL (1.8-7.8); NEUTROPHILS % (AUTO) 70 % (42-75); PLATELET COUNT 444 10^3/uL (130-400); WHITE BLOOD COUNT 10.8 10^3/uL (4.3-11.0)
[2020-11-17 04:18] LABS: CHLORIDE 119 MMOL/L (98-107); POTASSIUM 3.6 MMOL/L (3.6-5.0); SODIUM 152 MMOL/L (135-145)
[2020-11-17 04:19] LABS: CALCIUM 8.8 MG/DL (8.5-10.1)
[2020-11-17 04:20] LABS: GLUCOSE 153 MG/DL (70-105)
[2020-11-17 04:21] LABS: CARBON DIOXIDE 24 MMOL/L (21-32)
[2020-11-17 04:23] LABS: PHOSPHORUS 2.5 MG/DL (2.3-4.7)
[2020-11-17 04:24] LABS: BUN/CREATININE RATIO 45; CREATININE SERUM 0.77 MG/DL (0.60-1.30); GFR ESTIMATED > 60
[2020-11-17 04:26] LABS: MAGNESIUM 2.4 MG/DL (1.6-2.4)
[2020-11-17] MEDS: KCL 20 MEQ TAB (K-DUR) PO SCH (05:05)
[2020-11-17] MEDS: MAGNESIUM 1 GM/100 ML IVPB 100 ML IV SCH (05:05)
--- NOTE | 2020-11-17 05:37 | Pulmonary Progress Note ---
Subjective Time Seen by a Provider: 05:35 Subjective/Events-last exam No complications noted. Sepsis Event Evaluation Height, Weight, BMI Height: 5'9.00" Weight: 230lbs. 0.0oz. 104.861037ke; 39.26 BMI Method:Stated Exam Exam Vital Signs Date Time Temp Pulse Resp B/P (MAP) Pulse Ox O2 Delivery O2 Flow Rate FiO2 11/17/20 04:00 95 17 157/72 (100) 91 Vapotherm 35.00 40.00 11/17/20 02:14 93 Vapotherm 30.00 40 11/17/20 01:00 103 11/17/20 00:39 37.2 Vapotherm 35.00 40.00 11/17/20 00:00 89 28 152/75 (100) 96 Vapotherm 35.00 50.00 11/16/20 21:26 93 Vapotherm 35.00 50 11/16/20 21:07 37.6 Vapotherm 35.00 50.00 11/16/20 20:00 112 26 143/83 (103) 98 Vapotherm 35.00 60.00 11/16/20 20:00 Vapotherm 35.00 60 11/16/20 19:00 Vapotherm 35.00 60.00 11/16/20 19:00 106 16 149/78 (101) 98 Vapotherm 35.00 60.00 11/16/20 19:00 106 11/16/20 18:27 99 Vapotherm 35.00 60 11/16/20 17:20 37.3 11/16/20 16:00 109 15 161/79 (106) 99 Vapotherm 35.00 70.00 11/16/20 15:35 37.6 11/16/20 14:45 Vapotherm 35.00 70.00 11/16/20 14:28 98 Vapotherm 40.00 90 11/16/20 13:04 103 11/16/20 12:00 99 27 167/75 (105) 89 Vapotherm 40.00 100.00 11/16/20 10:27 89 Vapotherm 40.00 100 11/16/20 08:45 97 Vapotherm 40.00 100 11/16/20 08:00 94 8 165/78 (107) 97 Vapotherm 40.00 100.00 11/16/20 07:36 Vapotherm 40.00 100.00 11/16/20 07:29 92 Vapotherm 40.00 100 11/16/20 07:25 90 24 95 35.00 11/16/20 06:00 90 13 168/77 (107) 95 NIV Bilevel 35.00 I & O 11/17/20 06:59 Intake Total 470 ml Output Total 1300 ml Balance -830 ml Height & Weight Height: 5'9.00" Weight: 230lbs. 0.0oz. 104.380890qi; 39.26 BMI Method:Stated General Appearance: No Apparent Distress, WD/WN, Chronically ill, Obese, Other (intubated) HEENT: PERRL/EOMI, Normal ENT Inspection, Pharynx Normal, Moist Mucous Membranes Neck: Full Range of Motion, Normal Inspection, Non Tender Respiratory: Lungs Clear Cardiovascular: Regular Rate, Rhythm Capillary Refill: Less Than 3 Seconds Extremity: Pedal Edema Neurologic/Psychiatric: Alert, Oriented x3, No Motor/Sensory Deficits, Normal Mood/Affect Skin: Normal Color, Warm/Dry, Other (no breakdown noted on exam) Lymphatic: No Adenopathy Results Lab Laboratory Tests 11/16/20 02:00 11/17/20 03:45 Assessment/Plan Assessment/Plan Acute respiratory failure with COVID and ARDS -s/P EXTUBATION -CXR shows worsening left infiltration -Repeat Sputum culture -ABG reviewed -s/p Decadron -CVP -Did not qualify for Remdesivir -Proning - D/C -IVF are SL Hypertryglycerides -Hold Propofol PNA -s/p Zosyn 10/28- 11/05 -Continue Merrem -Knight cultures pending UTI with MSSA DM -Monitor -Levemir and scheduled Novolog -Decrease Levemir to 50 units BID Anemia -Monitor CAD -Monitor Morbid obesity Breast cancer hx DVT/Gi ppx -Protonix -Lovenox-- theraputic dosing CHENTE DENISE DO Nov 17, 2020 05:37
[2020-11-17] MEDS: POTASSIUM CL 10MEQ/50ML IVPB 50 ML IV SCH ×3 (06:40→08:17)
[2020-11-17] MEDS: CATHETER FLUSH 10 ML SYR IV SCH ×3 (06:40→22:23)
[2020-11-17] MEDS: 1/2 NS IV SOLUTION 1,000 ML IV SCH (06:40)
[2020-11-17] MEDS: GABAPENTIN 300 MG (NEURONTIN) CAP PO SCH ×4 (06:42→22:19)
[2020-11-17] MEDS: amLODIPine 5 MG (NORVASC) TAB PO SCH (08:17)
[2020-11-17] MEDS: FERROUS SULF 325 MG (IRON) TAB PO SCH ×3 (08:17→17:15)
[2020-11-17] MEDS: OMEGA 3 (FISH OIL) 1000 MG CAP PO SCH ×3 (08:17→17:15)
[2020-11-17] MEDS: meTOprolol TARTRATE 25 MG (LOPRESSOR) TABLET PO SCH ×2 (08:17→22:19)
[2020-11-17] MEDS: ASPIRIN 81 MG CHEW (CHILDREN'S ASA) PO SCH (08:17)
[2020-11-17] MEDS: PANTOPRAZOLE 40 MG (PROTONIX) VIAL IV SCH (08:18)
[2020-11-17] MEDS: ENOXAPARIN 300 MG/3 ML (LOVENOX) MULTI-DOSE VIAL SQ SCH ×2 (08:18→22:18)
[2020-11-17] MEDS: MICONAZOLE 2% POWDER (DESENEX AF) 90 GM TOP SCH ×2 (08:19→22:20)
--- NOTE | 2020-11-17 08:45 | Diagnostic Imaging Report ---
INDICATION: COVID patient FINDINGS: The heart is enlarged. There is bilateral interstitial infiltrates greater left having increased. Right PICC line tip at the lower SVC well-positioned. IMPRESSION: Increased heart size. Increased interstitial opacities. Lung changes may reflect progressive sequelae of pneumonia and/or superimposed edema. No effusion. No pneumothorax. PICC line in good position. Report was faxed to [facility]/RN Infection Control by faustina at 8:45AM. Dictated by: Dictated on workstation # [id number]
--- NOTE | 2020-11-17 09:20 | NUR ---
REPORT GIVEN TO Pato MURRAY RN
--- NOTE | 2020-11-17 09:57 | NUR ---
REPORT TAKEN FROM Leticia MELTON RN
--- NOTE | 2020-11-17 10:25 | NUR ---
1000 PT TO ROOM 424 VIA BED ACCOMPANIED BY THIS RN AND CORNICE UPHOLSTERER. ALL PERSONAL BELONGING SENT DOWN TH PT.
--- NOTE | 2020-11-17 11:29 | Physical Therapy Daily Note ---
PT Daily Note-Current Subjective Agrees to PT. Reports she is thirsty. Assisted pt with thickened liquid drinking. Transfers SCALE: Activities may be completed with or without assistive devices. 9-Sefsaerwyr-qdhaacq completes the activity by him/herself with no assistance from a helper. 5-Set-up or Clean-up Assistance-helper sets up or cleans up; patient completes activity. [place] assists only prior to or following the activity. 4-Supervision or Touching Assistance-helper provides verbal cues and/or touching/steadying and/or contact guard assistance as patient completes activity. Assistance may be provided throughout the activity or intermittently. 3-Partial/Moderate Assistance-helper does LESS THAN HALF the effort. [place] lifts, holds or supports trunk or limbs, but provides less than half the effort. 2-Substantial/Maximal Assistance-helper does MORE THAN HALF the effort. [place] lifts or holds trunk or limbs and provides more than half the effort. 2-Mxsuxtdhr-kkxudr does ALL the effort. Patient does none of the effort to complete the activity. Or, the assistance of 2 or more helpers is required for the patient to complete the activity. If activity was not attempted, code reason: 7-Patient Refused. 9-Not Applicable-not attempted and the patient did not perform the activity before the current illness, exacerbation or injury. 10-Not Attempted due to Environmental Limitations-(lack of equipment, weather restraints, etc.). 88-Not Attempted due to Medical Conditions or Safety Concerns. Roll Left & Right (QC): 1 Sit to Lying (QC): 1 Lying to Sitting/Side of Bed(Q: 1 Asssit of 2 for all rolling and scooting; assist of 2 to transition supine to sit EOB and to return to supine. Min to mod assist to sit EOB x 10 minutes. Worked on deep breathing, use of UE to support seated position and performed AP and LAQ. Sats >92% throughout. Pt in bed post treatment with needs met; nurse retail assistant present assisting pt with further needs. Assessment Current Status: Good Progress Able to sit EOB with min tomod assist. Tolerated upright activity well. Needs frequent cues and redirection but does actively participate. PT Short Term Goals Short Term Goals Time Frame: Dec 04, 2020 Roll Left & Right: 2 Sit to lyin Lying to sitting on side of be: 2 Sit to stand: 1 Chair/zeg-wq-pjusg transfer: 1 PT Long-Term Goals Long-Term Goals PT Long-Term Goals Time Frame: Jan 01, 2021 Roll Left & Right (QC): 4 Sit to Lying (QC): 4 Lying-Sitting on Side/Bed(QC): 4 Sit to Stand (QC): 4 Chair/Vhp-le-Bxtdq Xfer(QC): 4 Toilet Transfer (QC): 4 Does the Patient Walk: Yes Walk 10 feet (QC): 3 Walk 50ft with 2 Turns (QC): 3 PT Plan Problem List Problem List: Activity Tolerance, Functional Strength, Safety, Balance, Gait, Transfer, Bed Mobility Treatment/Plan Treatment Plan: Continue Plan of Care Treatment Plan: Bed Mobility, Education, Functional Activity Earnestine, Functional Strength, Gait, Safety, Therapeutic Exercise, Transfers Treatment Duration: Jan 01, 2021 Frequency: 5 times per week Estimated Hrs Per Day: .25 hour per day (to .5 ) Patient and/or Family Agrees t: Yes Safety Risks/Education Patient Education: Safety Issues Teaching Recipient: Patient Teaching Methods: Demonstration, Discussion Response to Teaching: Reinforcement Needed Time/GCodes Time In: 850 Time Out: 915 Total Billed Treatment Time: 25 Total Billed Treatment visit FA 25 ANNAMARIA BOYCE PT Nov 17, 2020 11:29
--- NOTE | 2020-11-17 11:55 | Progress Note - Hospitalist ---
Subjective HPI/CC On Admission Date Seen by Provider: Nov 17, 2020 Time Seen by Provider: 11:00 Subjective/Events-last exam Pt transferred to room 424 Overall very weak but doing very well on Vapotherm Monitoring closely due to high risk for decompensation Review of Systems General: Fatigue Pulmonary: Dyspnea Objective Exam Vital Signs Vital Signs Date Time Temp Pulse Resp B/P (MAP) Pulse Ox O2 Delivery O2 Flow Rate FiO2 11/18/20 03:11 36.1 99 22 170/78 (108) 91 Vapotherm 30.00 35.00 11/17/20 22:53 35 Capillary Refill : Less Than 3 Seconds General Appearance: No Apparent Distress, WD/WN, Anxious, Chronically ill Respiratory: Chest Non Tender, Lungs Clear, Normal Breath Sounds, No Accessory Muscle Use, No Respiratory Distress, Decreased Breath Sounds Cardiovascular: Regular Rate, Rhythm, No Edema, No Gallop, No JVD, No Murmur, Normal Peripheral Pulses Neurologic/Psychiatric: Alert, Oriented x3, No Motor/Sensory Deficits, Normal Mood/Affect Results/Procedures Lab Patient resulted labs reviewed. Assessment/Plan Assessment and Plan Assess & Plan/Chief Complaint Assessment: COVID-19 PNA on vent Hypoxia Breast cancer hx CAD HTN HLP Plan: O2 Lovenox COVID-19 support 10/21/20: Monitor O2 Monitor BP 10/22/20: Monitor low BP 10/23/20: Monitor BP and BS Adjust meds down 10/24/20: Monitor sugar and BP Monitor for increased O2 requirements 10/30/20: biPAP Monitor closely High risk for decompensation 10/31/20: Maxed on Vapotherm BiPAP also 11/13/20: Vent Prognosis poor 11/14/20: VDRF Recovery potential? 11/17/20: Vapotherm PT OT DNR Prognosis guarded Critical Care Critically Ill Patient Diagnosis/Problems Diagnosis/Problems (1) COVID-19 Status: Acute (2) Hypoxia Status: Acute (3) Breast cancer Status: Chronic Qualifiers: Breast location: upper outer quadrant of breast Patient sex: female Late rality: left Permanent Comment: Left mastectomy done in 2014 Last Edited By: Maggie Chandra on Oct 25, 2020 15:38 (4) HTN (hypertension) Status: Chronic Qualifiers: Hypertension type: essential hypertension Qualified Codes: I10 - Essential (primary) hypertension (5) CAD (coronary artery disease) Status: Chronic Qualifiers: Coronary Disease-Associated Artery/Lesion type: [place] artery [place] vs. transplanted heart: [place] heart Associated angina: without angina Qualified Codes: I25.10 - Atherosclerotic heart disease of [place] coronary artery without angina pectoris (6) Diabetes mellitus Status: Chronic Qualifiers: Diabetes mellitus type: type 2 Diabetes mellitus terminal computer operator insulin use: with terminal computer operator use Diabetes mellitus complication status: with neurologic complications Diabetes mellitus complication detail: with polyneuropathy Qualified Codes: E11.42 - Type 2 diabetes mellitus with diabetic polyneuropathy; Z79.4 - correction (current) use of insulin Clinical Quality Measures DVT/VTE Risk/Contraindication: Risk Factor Score Per Nursin RFS Level Per Nursing on Admit: 3=High MADINA MCCARTY DO Nov 17, 2020 11:55
--- NOTE | 2020-11-17 14:34 | Occupational Therapy Eval ---
OT Evaluation-General/PLF Medical Diagnosis Admission Date Oct 19, 2020 at 18:18 Medical Diagnosis: COVID-19 Onset Date: Oct 19, 2020 Therapy Diagnosis Therapy Diagnosis: decreased ADL status, weakness/debillity Height/Weight Height (Feet): 5 Height (Inches): 9.00 Weight (Pounds): 230 Weight (Ounces): 0.0 Precautions Precautions/Isolations: Airborne Isolation, Aspiration Referral Physician: Swati Referral Reason: Evaluation/Treatment Medical History Pertinent Medical History: Breast CA S/P Mastectomy, CAD, DM, HTN, [place], Renal Insufficiency, Smoking Additional Medical History breast cancer with chemo/radiation/surgery, arthritis, neuropathy Current History present with SOB and chest pain, found to be COVID+, pt intubated, extubated 11/15/2020 Social History Current Living Status: Alone ADL-Prior Level of Function SCALE: Activities may be completed with or without assistive devices. 7-Yfaxgmehdx-xnchrgv completes the activity by him/herself with no assistance from a helper. 5-Set-up or Clean-up Assistance-helper sets up or cleans up; patient completes activity. [place] assists only prior to or following the activity. 4-Supervision or Touching Assistance-helper provides verbal cues and/or touching/steadying and/or contact guard assistance as patient completes activity. Assistance may be provided throughout the activity or intermittently. 3-Partial/Moderate Assistance-helper does LESS THAN HALF the effort. [place] lifts, holds or supports trunk or limbs, but provides less than half the effort. 2-Substantial/Maximal Assistance-helper does MORE THAN HALF the effort. [place] lifts or holds trunk or limbs and provides more than half the effort. 7-Xwsanhyix-okoqty does ALL the effort. Patient does none of the effort to complete the activity. Or, the assistance of 2 or more helpers is required for the patient to complete the activity. If activity was not attempted, code reason: 7-Patient Refused. 9-Not Applicable-not attempted and the patient did not perform the activity before the current illness, exacerbation or injury. 10-Not Attempted due to Environmental Limitations-(lack of equipment, weather restraints, etc.). 88-Not Attempted due to Medical Conditions or Safety Concerns. Self Care: Independent Functional Cognition: Independent OT Current Status Subjective Pt laying in bed, agreeable to OT tx. Pt reports pain in RUE with PROM, unable to provide rating. Mental Status/Objective Patient Orientation: Person, Place, Time, Situation Attachments: IV, Oxygen (vapotherm) Current Hand Dominance: Right Upper Extremity ROM PROM BUE shoulder flexion to approx 90 degrees, reports increased pain with RUE shoulder flexion. Upper Extremity Coordination decreased Upper Extremity Sensation decreased. Upper Extremity Strength grossly 1/5 Edema: BUEs ADL-Treatment Eating (QC): 2 (Max A, OT fed pt, pt able to close lips around spoon and take a drink.) Shower/Bathe Self (QC): 1 (Based on clincial judgement, pt would require assistance with washing all parts and assist x2 with rolling side to side.) Lower Body Dressing (QC): 1 (Based on clinical judgement, pt would require assistance with all parts, and assist x2 in rolling side to side at bed level.) On/Off Footwear (QC): 1 (based on clinical judgement, pt would require assist donning/doffing footwear.) Toileting Hygiene (QC): 1 (Based on clinical judgement, pt would require assist with clothing management and hygiene.) Other Treatments Pt laying in bed, introduced self and benefits and purpose of OT. Pt provided information about PLOF and home set up to her ability. Pt expresses wishes for food, pt unable to lift arm off of bed to feed. OT provided pt with apple sauce and pudding. Pt coughing after eating pudding (OT terminated feeding), coughing up chocolate pudding colored liquid, OT notified nursing staff. OT performed PROM UE all planes, x5 reps. Post tx, pt laying in bed, call light in reach and all needs met. Education OT Patient Education: Correct positioning, Modified ADL techniques, Progress toward Goal/Update tx plan, Purpose of tx/functional activities, Rehab process Teaching Recipient: Patient Teaching Methods: Discussion Response to Teaching: Verbalize Understanding, Reinforcement Needed OT Director Of Corporate Sales Goals Mcfp Goals Time Frame: Dec 17, 2020 Eating (QC): 5 Oral Hygiene (QC): 5 Toileting Hygiene (QC): 3 Shower/Bathe Self (QC): 3 Upper Body Dressing (QC): 3 Lower Body Dressing (QC): 3 On/Off Footwear (QC): 3 Additional Goals: 1-Demonstrate ADL Tasks, 2-Verbalize Understanding, 3- ImproveStrength/Earnestine 1=Demonstrate adherence to instructed precautions during ADL tasks. 2=Patient will verbalize/demonstrate understanding of assistive devices/modifications for ADL. 3=Patient will improve strength/tolerance for activity to enable patient to perform ADL's. OT Education/Plan Problem List/Assessment Assessment: Decreased Activ Tolerance, Decreased UE Strength, Dependent Transfers, Impaired Bed Mobility, Impaired Coordination, Impaired Funct Balance, Impaired I ADL's, Impaired Self-Care Skills, Restricted Funct UE ROM Discharge Recommendations Plan/Recommendations: Continue POC Therapy Discharge Recommendati: Other, See Comments (SNF) Treatment Plan/Plan of Care Patient would benefit from OT for education, treatment and training to promote independence in ADL's, mobility, safety and/or upper extremity function for ADL's. Plan of Care: ADL Retraining, Functional Mobility, UE Funct Exercise/Act Treatment Duration: Dec 17, 2020 Frequency: 5 times per week Estimated Hrs Per Day: .25 hour per day Rehab Potential: Guarded Time/GCodes Start Time: 13:34 Stop Time: 13:50 Total Time Billed (hr/min): 16 Billed Treatment Time 1, TEVIN AGUERO OT Nov 17, 2020 14:34
[2020-11-17] MEDS: FOLIC ACID 1 MG TAB PO SCH (14:59)
[2020-11-17] MEDS: VITAMIN D3 10 MCG (400 UNITS) TABLET PO SCH (15:00)
[2020-11-17] MEDS: FENOFIBRATE 134 MG (LOFIBRA) CAPSULE PO SCH (22:19)
[2020-11-18] VITALS (9 sets, daily range): BP systolic 139–170; BP diastolic 66–83
[2020-11-18] MEDS: RT-ALBUTEROL INHALER HFA (VENTOLIN HFA) 18 GM IH SCH ×7 (03:18→23:14)
[2020-11-18 06:21] LABS: BASOPHILS % (AUTO) 0 % (0-10); EOSINOPHILS # (AUTO) 0.2 10^3/uL (0.0-0.3); EOSINOPHILS % (AUTO) 3 % (0-10); HEMATOCRIT 24 % (35-52); LYMPHOCYTES # (AUTO) 0.9 10^3/uL (1.0-4.0); LYMPHOCYTES % (AUTO) 10 % (12-44); MEAN CORPUSCULAR HEMOGLOBIN 27 pg (25-34); MEAN CORPUSCULAR HGB CONC 28 g/dL (32-36); MEAN CORPUSCULAR VOLUME 95 fL (80-99); MEAN PLATELET VOLUME 12.7 fL (9.0-12.2); MONOCYTES # (AUTO) 0.6 10^3/uL (0.0-1.0); MONOCYTES % (AUTO) 7 % (0-12); NEUTROPHILS # (AUTO) 6.6 10^3/uL (1.8-7.8); NEUTROPHILS % (AUTO) 71 % (42-75); PLATELET COUNT 460 10^3/uL (130-400); WHITE BLOOD COUNT 9.3 10^3/uL (4.3-11.0)
[2020-11-18 06:26] LABS: HEMOGLOBIN 6.9 g/dL (11.5-16.0)
--- NOTE | 2020-11-18 06:30 | NUR ---
DR. MCCARTY NOTIFIED OF CRITICAL HGB OF 6.9. NO NEW ORDERS RECEIVED AT THIS TIME.
[2020-11-18] MEDS: 1/2 NS IV SOLUTION 1,000 ML IV SCH (06:38)
[2020-11-18] MEDS: inSUlin ASPART (NovoLOG) 1 UNIT/0.01 ML (CHARGE PER UNIT) SC SCH ×4 (06:38→20:42)
[2020-11-18] MEDS: CATHETER FLUSH 10 ML SYR IV SCH ×3 (06:38→20:43)
[2020-11-18 06:39] LABS: ALANINE AMINOTRANSFERASE 26 U/L (0-55); ALBUMIN 2.6 GM/DL (3.2-4.5); ALKALINE PHOSPHATASE 43 U/L (40-136); BILIRUBIN,TOTAL 0.8 MG/DL (0.1-1.0); BUN/CREATININE RATIO 38; CALCIUM 8.7 MG/DL (8.5-10.1); CARBON DIOXIDE 22 MMOL/L (21-32); CHLORIDE 119 MMOL/L (98-107); CREATININE SERUM 0.79 MG/DL (0.60-1.30); GFR ESTIMATED > 60; GLUCOSE 168 MG/DL (70-105); POTASSIUM 3.8 MMOL/L (3.6-5.0); SODIUM 152 MMOL/L (135-145); TOTAL PROTEIN 5.8 GM/DL (6.4-8.2)
[2020-11-18] MEDS: POTASSIUM CL 10MEQ/50ML IVPB 50 ML IV SCH (06:40)
[2020-11-18] MEDS: KCL 20 MEQ TAB (K-DUR) PO SCH (06:40)
[2020-11-18] MEDS: GABAPENTIN 300 MG (NEURONTIN) CAP PO SCH ×3 (06:48→20:43)
[2020-11-18] MEDS: MAGNESIUM 1 GM/100 ML IVPB 100 ML IV SCH (07:06)
--- NOTE | 2020-11-18 07:29 | Pulmonary Progress Note ---
Subjective Time Seen by a Provider: 07:26 Sepsis Event Evaluation Height, Weight, BMI Height: 5'9.00" Weight: 230lbs. 0.0oz. 104.084343zt; 39.26 BMI Method:Stated Exam Exam Vital Signs Date Time Temp Pulse Resp B/P (MAP) Pulse Ox O2 Delivery O2 Flow Rate FiO2 11/18/20 03:11 36.1 99 22 170/78 (108) 91 Vapotherm 30.00 35.00 11/18/20 01:00 103 11/18/20 00:51 36.5 102 24 143/68 (93) 93 Vapotherm 30.00 35.00 11/17/20 22:53 94 Vapotherm 30.00 35 11/17/20 22:27 Vapotherm 30.00 35 11/17/20 20:13 36.4 105 24 151/76 (101) 94 Vapotherm 30.00 35.00 11/17/20 19:06 93 Vapotherm 30.00 35 11/17/20 19:00 100 11/17/20 16:03 36.4 105 22 168/79 (108) 91 Vapotherm 30.00 35.00 11/17/20 15:38 36.7 105 92 35 11/17/20 14:50 92 Vapotherm 30.00 35 11/17/20 12:58 105 11/17/20 12:00 36.7 104 22 160/81 (107) 93 Vapotherm 30.00 37.00 11/17/20 10:52 92 Vapotherm 30.00 35 11/17/20 10:12 35.9 91 20 161/77 (105) 94 Vapotherm 30.00 35.00 11/17/20 08:40 Vapotherm 35.00 60 11/17/20 08:30 36.4 11/17/20 08:00 101 21 173/80 (111) 95 Vapotherm 30.00 35.00 I & O 11/18/20 07:00 Intake Total 540 ml Output Total 1375 ml Balance -835 ml Height & Weight Height: 5'9.00" Weight: 230lbs. 0.0oz. 104.257806hu; 39.26 BMI Method:Stated General Appearance: No Apparent Distress, WD/WN, Anxious, Chronically ill HEENT: PERRL/EOMI, Normal ENT Inspection, Pharynx Normal, Moist Mucous Membranes Neck: Full Range of Motion, Normal Inspection, Non Tender Respiratory: Chest Non Tender, Lungs Clear, Normal Breath Sounds, No Accessory Muscle Use, No Respiratory Distress, Decreased Breath Sounds Cardiovascular: Regular Rate, Rhythm, No Edema, No Gallop, No JVD, No Murmur, Normal Peripheral Pulses Capillary Refill: Less Than 3 Seconds Extremity: Pedal Edema Neurologic/Psychiatric: Alert, Oriented x3, No Motor/Sensory Deficits, Normal Mood/Affect Skin: Normal Color, Warm/Dry, Other (no breakdown noted on exam) Lymphatic: No Adenopathy Results Lab Laboratory Tests 11/17/20 03:45 11/18/20 06:00 Assessment/Plan Assessment/Plan Acute respiratory failure with COVID and ARDS -s/P EXTUBATION -s/p Decadron -CVP -Did not qualify for Remdesivir -Proning - D/C PNA -s/p Zosyn 10/28- 11/05 s/p Merrem -Knight cultures pending UTI with MSSA DM -Monitor -Levemir and scheduled Novolog Anemia -Monitor CAD -Monitor Morbid obesity Breast cancer hx DVT/Gi ppx -Protonix -Lovenox-- theraputic dosing CHENTE DENISE DO Nov 18, 2020 07:29
[2020-11-18] MEDS: ENOXAPARIN 300 MG/3 ML (LOVENOX) MULTI-DOSE VIAL SQ SCH ×2 (08:47→20:39)
[2020-11-18] MEDS: FERROUS SULF 325 MG (IRON) TAB PO SCH ×3 (08:52→19:09)
[2020-11-18] MEDS: ASPIRIN 81 MG CHEW (CHILDREN'S ASA) PO SCH (08:52)
[2020-11-18] MEDS: meTOprolol TARTRATE 25 MG (LOPRESSOR) TABLET PO SCH ×2 (08:54→20:43)
[2020-11-18] MEDS: amLODIPine 5 MG (NORVASC) TAB PO SCH (08:55)
[2020-11-18] MEDS: OMEGA 3 (FISH OIL) 1000 MG CAP PO SCH ×3 (08:57→19:09)
[2020-11-18] MEDS: MICONAZOLE 2% POWDER (DESENEX AF) 90 GM TOP SCH ×2 (09:00→20:37)
[2020-11-18] MEDS: PANTOPRAZOLE 40 MG (PROTONIX) VIAL IV SCH (09:00)
--- NOTE | 2020-11-18 11:27 | Physical Therapy Daily Note ---
PT Daily Note-Current Subjective Pt groggy/sleepy but agrees to PT. Transfers SCALE: Activities may be completed with or without assistive devices. 3-Snujdzyfvr-buzpzcf completes the activity by him/herself with no assistance from a helper. 5-Set-up or Clean-up Assistance-helper sets up or cleans up; patient completes activity. [place] assists only prior to or following the activity. 4-Supervision or Touching Assistance-helper provides verbal cues and/or touching/steadying and/or contact guard assistance as patient completes activity. Assistance may be provided throughout the activity or intermittently. 3-Partial/Moderate Assistance-helper does LESS THAN HALF the effort. [place] li fts, holds or supports trunk or limbs, but provides less than half the effort. 2-Substantial/Maximal Assistance-helper does MORE THAN HALF the effort. [place] lifts or holds trunk or limbs and provides more than half the effort. 6-Wxiaqwplt-cbujji does ALL the effort. Patient does none of the effort to complete the activity. Or, the assistance of 2 or more helpers is required for the patient to complete the activity. If activity was not attempted, code reason: 7-Patient Refused. 9-Not Applicable-not attempted and the patient did not perform the activity before the current illness, exacerbation or injury. 10-Not Attempted due to Environmental Limitations-(lack of equipment, weather restraints, etc.). 88-Not Attempted due to Medical Conditions or Safety Concerns. Roll Left & Right (QC): 2 Sit to Lying (QC): 2 Lying to Sitting/Side of Bed(Q: 2 Max to dependent assist of 1 to transfer supine to sit EOB and return to supine. Dep to scoot up in bed. Pt sat EOB with max assist x 6 minutes with cues for holding her head upright, using her UE to brace/support. In sitting, pt able to perform AP and LAQ. Pt on o2 throughout treatment and post. Pt returned to supine post visit. Heel protectors applied and needs met. Assessment Pt seemed less awake today but was participatory and cooperative. Needs full assist for transitional movements and encouragement to stay awake and participate. Pt in bed post visit with all needs met. PT Short Term Goals Short Term Goals Time Frame: Dec 04, 2020 Roll Left & Right: 2 Sit to lyin Lying to sitting on side of be: 2 Sit to stand: 1 Chair/yza-op-yfhxg transfer: 1 PT Prison Goals Prison Goals PT Athletic Coordinator Goals Time Frame: Jan 01, 2021 Roll Left & Right (QC): 4 Sit to Lying (QC): 4 Lying-Sitting on Side/Bed(QC): 4 Sit to Stand (QC): 4 Chair/Nnt-dj-Ypcgc Xfer(QC): 4 Toilet Transfer (QC): 4 Does the Patient Walk: Yes Walk 10 feet (QC): 3 Walk 50ft with 2 Turns (QC): 3 PT Plan Problem List Problem List: Activity Tolerance, Functional Strength, Safety, Balance, Gait, Transfer, Bed Mobility Treatment/Plan Treatment Plan: Continue Plan of Care Treatment Plan: Bed Mobility, Education, Functional Activity Earnestine, Functional Strength, Gait, Safety, Therapeutic Exercise, Transfers Treatment Duration: Jan 01, 2021 Frequency: 5 times per week Estimated Hrs Per Day: .25 hour per day (to .5 ) Patient and/or Family Agrees t: Yes Safety Risks/Education Patient Education: Safety Issues Teaching Recipient: Patient Teaching Methods: Discussion Response to Teaching: Reinforcement Needed Discharge Recommendations Therapy Discharge Recommendati: Post Acute PT Time/GCodes Time In: 940 Time Out: 1005 Total Billed Treatment Time: 25 Total Billed Treatment visit FA 25 ANNAMARIA BOYCE PT Nov 18, 2020 11:27
--- NOTE | 2020-11-18 11:28 | NUR ---
ISOLATION DISCONTINUED PER ORDERS FROM DR. HERRERA. Addendum: 11/18/20 at 1130 by CHAPINCITO ARTEAGA RN ISOLATION DISCONTINUED PER ORDERS FROM DR. MCCARTY.
--- NOTE | 2020-11-18 11:57 | Progress Note - Hospitalist ---
Subjective HPI/CC On Admission Date Seen by Provider: Nov 18, 2020 Time Seen by Provider: 11:00 Subjective/Events-last exam Will discontinue isolation Discontinue Telemetry Give one unit of blood due to Hgb of 6.9 No BM for two days Overall doing pretty well otherwise Review of Systems General: Fatigue, Malaise Pulmonary: Dyspnea Neurological: Weakness Objective Exam Vital Signs Vital Signs Date Time Temp Pulse Resp B/P (MAP) Pulse Ox O2 Delivery O2 Flow Rate FiO2 11/19/20 04:42 36.9 99 24 168/73 (104) 94 Nasal Cannula 4.00 11/18/20 07:49 35 Capillary Refill : Less Than 3 Seconds General Appearance: No Apparent Distress, WD/WN, Chronically ill, Obese Respiratory: Chest Non Tender, Lungs Clear, Normal Breath Sounds, No Accessory Muscle Use, No Respiratory Distress Cardiovascular: Regular Rate, Rhythm, No Edema, No Gallop, No JVD, No Murmur, Normal Peripheral Pulses Neurologic/Psychiatric: Alert, Oriented x3, No Motor/Sensory Deficits, Normal Mood/Affect Results/Procedures Lab Laboratory Tests 11/18/20 06:00 Patient resulted labs reviewed. Assessment/Plan Assessment and Plan Assess & Plan/Chief Complaint Assessment: COVID-19 PNA on vent Hypoxia Breast cancer hx CAD HTN HLP Plan: O2 Lovenox COVID-19 support 10/21/20: Monitor O2 Monitor BP 10/22/20: Monitor low BP 10/23/20: Monitor BP and BS Adjust meds down 10/24/20: Monitor sugar and BP Monitor for increased O2 requirements 10/30/20: biPAP Monitor closely High risk for decompensation 10/31/20: Maxed on Vapotherm BiPAP also 11/13/20: Vent Prognosis poor 11/14/20: VDRF Recovery potential? 11/17/20: Vapotherm PT OT DNR Prognosis guarded 11/18/20: Give 1 unit of blood Monitor O2 PT OT Critical Care Critically Ill Patient Diagnosis/Problems Diagnosis/Problems (1) COVID-19 Status: Acute (2) Hypoxia Status: Acute (3) Breast cancer Status: Chronic Qualifiers: Breast location: upper outer quadrant of breast Patient sex: female Laterality: left Permanent Comment: Left mastectomy done in 2014 Last Edited By: Maggie Chandra on Oct 25, 2020 15:38 (4) HTN (hypertension) Status: Chronic Qualifiers: Hypertension type: essential hypertension Qualified Codes: I10 - Essential (primary) hypertension (5) CAD (coronary artery disease) Status: Chronic Qualifiers: Coronary Disease-Associated Artery/Lesion type: lummi artery [place] vs. transplanted heart: lummi heart Associated angina: without angina Qualified Codes: I25.10 - Atherosclerotic heart disease of lummi coronary artery without angina pectoris (6) Diabetes mellitus Status: Chronic Qualifiers: Diabetes mellitus type: type 2 Diabetes mellitus manager security and safety insulin use: with shelter use Diabetes mellitus complication status: with neurologic complications Diabetes mellitus complication detail: with polyneuropathy Qualified Codes: E11.42 - Type 2 diabetes mellitus with diabetic polyneuropathy; Z79.4 - assisted (current) use of insulin Clinical Quality Measures DVT/VTE Risk/Contraindication: Risk Factor Score Per Nursin RFS Level Per Nursing on Admit: 3=High MADINA MCCARTY DO Nov 18, 2020 11:57
--- NOTE | 2020-11-18 14:17 | Occupational Ther Daily Note ---
OT Current Status-Daily Note Subjective Pt alert, lying in bed. Low Hmg, nrsg states pt to get blood today. Nrsg also states that pt is taken off COVID isolation. Pt agrees to therapy then states throughout session when are we done. Mental Status/Objective Patient Orientation: Person, Confused Attachments: IV, Oxygen (5L) ADL-Treatment Therapy Code Descriptions/Definitions Functional [place] Measure: 0=Not Assessed/NA 4=Minimal Assistance 1=Total Assistance 5=Supervision or Setup 2=Maximal Assistance 6=Modified [place] 3=Moderate Assistance 7=Complete IndependenceSCALE: Activities may be completed with or without assistive devices. 2-Zjmgwukcwu-pcahmxn completes the activity by him/herself with no assistance from a helper. 5-Set-up or Clean-up Assistance-helper sets up or cleans up; patient completes activity. [place] assists only prior to or following the activity. 4-Supervision or Touching Assistance-helper provides verbal cues and/or touching/steadying and/or contact guard assistance as patient completes activity. Assistance may be provided throughout the activity or intermittently. 3-Partial/Moderate Assistance-helper does LESS THAN HALF the effort. [place] lif ts, holds or supports trunk or limbs, but provides less than half the effort. 2-Substantial/Maximal Assistance-helper does MORE THAN HALF the effort. [place] lifts or holds trunk or limbs and provides more than half the effort. 3-Jmqgnxfsj-cjrfuq does ALL the effort. Patient does none of the effort to complete the activity. Or, the assistance of 2 or more helpers is required for the patient to complete the activity. If activity was not attempted, code reason: 7-Patient Refused. 9-Not Applicable-not attempted and the patient did not perform the activity before the current illness, exacerbation or injury. 10-Not Attempted due to Environmental Limitations-(lack of equipment, weather restraints, etc.). 88-Not Attempted due to Medical Conditions or Safety Concerns. Other Treatment Pt able to grasp oral swab though unable to bring to mouth. APROM with B UE's to complete ROM throughout B UE's, except B hands. Edema noted in both hands, pt educated on opening/closing hands to decrease edema in hands. Pt demonstrated understanding. After therapy, pt lying in bed with call light/phone in reach. All needs met in room. OT Patient Placement Coordinator Goals Patient Placement Coordinator Goals Time Frame: Dec 17, 2020 Eating (QC): 5 Oral Hygiene (QC): 5 Toileting Hygiene (QC): 3 Shower/Bathe Self (QC): 3 Upper Body Dressing (QC): 3 Lower Body Dressing (QC): 3 On/Off Footwear (QC): 3 Additional Goals: 1-Demonstrate ADL Tasks, 2-Verbalize Understanding, 3- ImproveStrength/Earnestine 1=Demonstrate adherence to instructed precautions during ADL tasks. 2=Patient will verbalize/demonstrate understanding of assistive devices/modifications for ADL. 3=Patient will improve strength/tolerance for activity to enable patient to perform ADL's. OT Education/Plan Problem List/Assessment Assessment: Decreased Activ Tolerance, Decreased Safety Aware, Decreased UE Strength, Dependent Transfers, Impaired Bed Mobility, Impaired Cognition, Impaired Coordination, Impaired Funct Balance, Impaired I ADL's, Impaired Self- Care Skills, Restricted Funct UE ROM Discharge Recommendations Plan/Recommendations: Continue POC Treatment Plan/Plan of Care Patient would benefit from OT for education, treatment and training to promote independence in ADL's, mobility, safety and/or upper extremity function for ADL's. Plan of Care: ADL Retraining, Functional Mobility, UE Funct Exercise/Act Treatment Duration: Dec 17, 2020 Frequency: 5 times per week Estimated Hrs Per Day: .25 hour per day Rehab Potential: Guarded Time/GCodes Start Time: 13:45 Stop Time: 14:02 Total Time Billed (hr/min): 17 Billed Treatment Time 1 visit-FA 1 (17 min) ANNAMARIA NUNES Nov 18, 2020 14:17
--- NOTE | 2020-11-18 15:10 | NUR ---
"RD ASSESSMENT PMHx: CAD; hypercholesterolemia; HTN; renal failure; DM; CA(breast) PT INTERACTION: Note pt is currently in COVID isolation per chart review. Note all diet information for nutrition follow-up is per Lita CARDONA or per chart review. Lita states current appetite appears so-so. Note no meals have been recorded, per chart review. Lita states no issues with n/v/c/d that she is aware of. Note last BM was 11/17 and pt not currently on bowel regimen per chart review. Est. kcal needs: 7016-8814 kcal | 15-18 kcal/kg Est. Pro needs: 94-117 g Pro | 0.8-1.0 g Pro/kg PES STATEMENT: Inadequate oral intake (NI-2.1) related to loss of appetite as evidenced by chart review, and caregiver (RN) interview. INTERVENTION: Continue with current diet order of DYS1 Pureed diet, with Pudding Thick Liquids. Pt may benefit from nutrition supplementation if PO intake declines. Will continue to follow and reassess as pt needs, intake, and status change. Jorge Luis PORTER MS RD LD [phone] cell"
[2020-11-18] MEDS: NS IV 500 ML 500 ML IV SCH (15:30)
[2020-11-18] MEDS: VITAMIN D3 10 MCG (400 UNITS) TABLET PO SCH (16:15)
[2020-11-18] MEDS: FOLIC ACID 1 MG TAB PO SCH (16:15)
[2020-11-18] MEDS: FENOFIBRATE 134 MG (LOFIBRA) CAPSULE PO SCH (20:43)
[2020-11-19 00:30] VITALS: BP 159/68
[2020-11-19] MEDS: RT-ALBUTEROL INHALER HFA (VENTOLIN HFA) 18 GM IH SCH ×6 (02:25→20:42)
[2020-11-19 04:42] VITALS: BP 168/73
[2020-11-19] MEDS: 1/2 NS IV SOLUTION 1,000 ML IV SCH ×2 (06:00→22:53)
[2020-11-19] MEDS: CATHETER FLUSH 10 ML SYR IV SCH ×3 (06:01→20:41)
[2020-11-19] MEDS: inSUlin ASPART (NovoLOG) 1 UNIT/0.01 ML (CHARGE PER UNIT) SC SCH ×4 (06:01→20:41)
[2020-11-19 06:20] LABS: BASOPHILS % (AUTO) 0 % (0-10); EOSINOPHILS # (AUTO) 0.2 10^3/uL (0.0-0.3); EOSINOPHILS % (AUTO) 2 % (0-10); HEMATOCRIT 28 % (35-52); HEMOGLOBIN 8.2 g/dL (11.5-16.0); LYMPHOCYTES # (AUTO) 1.1 10^3/uL (1.0-4.0); LYMPHOCYTES % (AUTO) 11 % (12-44); MEAN CORPUSCULAR HEMOGLOBIN 27 pg (25-34); MEAN CORPUSCULAR HGB CONC 29 g/dL (32-36); MEAN CORPUSCULAR VOLUME 93 fL (80-99); MEAN PLATELET VOLUME 12.6 fL (9.0-12.2); MONOCYTES # (AUTO) 0.5 10^3/uL (0.0-1.0); MONOCYTES % (AUTO) 5 % (0-12); NEUTROPHILS % (AUTO) 72 % (42-75); PLATELET COUNT 411 10^3/uL (130-400); WHITE BLOOD COUNT 9.8 10^3/uL (4.3-11.0)
[2020-11-19 06:39] LABS: ALBUMIN 2.7 GM/DL (3.2-4.5)
[2020-11-19 06:40] LABS: CHLORIDE 119 MMOL/L (98-107); POTASSIUM 3.8 MMOL/L (3.6-5.0); SODIUM 153 MMOL/L (135-145)
[2020-11-19 06:41] LABS: CALCIUM 8.7 MG/DL (8.5-10.1)
[2020-11-19 06:42] LABS: GLUCOSE 125 MG/DL (70-105); TOTAL PROTEIN 5.8 GM/DL (6.4-8.2)
[2020-11-19 06:43] LABS: CARBON DIOXIDE 23 MMOL/L (21-32)
[2020-11-19 06:44] LABS: BILIRUBIN,TOTAL 0.7 MG/DL (0.1-1.0)
[2020-11-19 06:45] LABS: ALKALINE PHOSPHATASE 47 U/L (40-136)
[2020-11-19 06:46] LABS: CREATININE SERUM 0.79 MG/DL (0.60-1.30); GFR ESTIMATED > 60
[2020-11-19 06:47] LABS: BUN/CREATININE RATIO 38
[2020-11-19 06:48] LABS: ALANINE AMINOTRANSFERASE 28 U/L (0-55)
[2020-11-19] MEDS: GABAPENTIN 300 MG (NEURONTIN) CAP PO SCH ×3 (06:51→20:32)
--- NOTE | 2020-11-19 07:25 | Pulmonary Progress Note ---
Subjective Time Seen by a Provider: 07:21 Subjective/Events-last exam No complications noted. Sepsis Event Evaluation Height, Weight, BMI Height: 5'9.00" Weight: 230lbs. 0.0oz. 104.772915yd; 39.26 BMI Method:Stated Exam Exam Vital Signs Date Time Temp Pulse Resp B/P (MAP) Pulse Ox O2 Delivery O2 Flow Rate FiO2 11/19/20 04:42 36.9 99 24 168/73 (104) 94 Nasal Cannula 4.00 11/19/20 02:26 95 Nasal Cannula 3.00 11/19/20 00:30 36.7 95 24 159/68 (98) 94 Nasal Cannula 4.00 11/18/20 23:15 92 Nasal Cannula 4.00 11/18/20 20:45 Nasal Cannula 4.00 11/18/20 20:27 91 Nasal Cannula 4.00 11/18/20 20:16 36.1 101 18 166/78 (107) 93 Nasal Cannula 4.00 11/18/20 18:24 36.1 102 20 156/74 95 Nasal Cannula 4.00 11/18/20 15:50 36.0 100 22 142/83 93 Nasal Cannula 4.00 11/18/20 15:32 36.2 99 22 169/79 (109) 94 Nasal Cannula 4.00 11/18/20 15:30 36.2 99 22 169/79 94 Nasal Cannula 4.00 11/18/20 14:55 91 Nasal Cannula 4.00 11/18/20 12:32 105 11/18/20 12:00 36.8 104 24 139/66 (90) 93 Nasal Cannula 4.00 11/18/20 10:56 91 Nasal Cannula 4.00 11/18/20 08:06 36.6 102 22 170/81 (110) 92 Nasal Cannula 4.00 11/18/20 08:00 Nasal Cannula 4.00 11/18/20 07:57 92 Nasal Cannula 4.00 11/18/20 07:49 91 Vapotherm 30.00 35 I & O 11/19/20 07:00 Intake Total 570 ml Output Total 1400 ml Balance -830 ml Height & Weight Height: 5'9.00" Weight: 230lbs. 0.0oz. 104.226370hi; 39.26 BMI Method:Stated General Appearance: No Apparent Distress, WD/WN, Chronically ill, Obese HEENT: PERRL/EOMI, Normal ENT Inspection, Pharynx Normal, Moist Mucous Membranes Neck: Full Range of Motion, Normal Inspection, Non Tender Respiratory: Chest Non Tender, Lungs Clear, Normal Breath Sounds, No Accessory Muscle Use, No Respiratory Distress Cardiovascular: Regular Rate, Rhythm, No Edema, No Gallop, No JVD, No Murmur, Normal Peripheral Pulses Capillary Refill: Less Than 3 Seconds Extremity: Pedal Edema Neurologic/Psychiatric: Alert, Oriented x3, No Motor/Sensory Deficits, Normal Mood/Affect Skin: Normal Color, Warm/Dry, Other (no breakdown noted on exam) Lymphatic: No Adenopathy Results Lab Laboratory Tests 11/18/20 06:00 11/19/20 05:55 Assessment/Plan Assessment/Plan Acute respiratory failure with COVID and ARDS -s/P EXTUBATION -s/p Decadron -CVP -Did not qualify for Remdesivir PNA -s/p Zosyn 10/28- 11/05 s/p Merrem -Knight cultures pending -Repeat PCT. UTI with MSSA DM -Monitor -Levemir and scheduled Novolog Anemia -Monitor CAD -Monitor Morbid obesity Breast cancer hx DVT/Gi ppx -Protonix -Lovenox-- theraputic dosing HCENTE DENISE DO Nov 19, 2020 07:24
[2020-11-19] MEDS: POTASSIUM CL 10MEQ/50ML IVPB 50 ML IV SCH (07:33)
[2020-11-19] MEDS: KCL 20 MEQ TAB (K-DUR) PO SCH (07:33)
[2020-11-19] MEDS: MAGNESIUM 1 GM/100 ML IVPB 100 ML IV SCH (08:03)
[2020-11-19 08:30] VITALS: BP 162/82
[2020-11-19] MEDS: ASPIRIN 81 MG CHEW (CHILDREN'S ASA) PO SCH (08:55)
[2020-11-19] MEDS: ENOXAPARIN 300 MG/3 ML (LOVENOX) MULTI-DOSE VIAL SQ SCH ×2 (08:55→20:31)
[2020-11-19] MEDS: meTOprolol TARTRATE 25 MG (LOPRESSOR) TABLET PO SCH ×2 (08:55→20:32)
[2020-11-19] MEDS: PANTOPRAZOLE 40 MG (PROTONIX) VIAL IV SCH (08:55)
[2020-11-19] MEDS: FERROUS SULF 325 MG (IRON) TAB PO SCH ×3 (08:55→16:56)
[2020-11-19] MEDS: OMEGA 3 (FISH OIL) 1000 MG CAP PO SCH ×3 (08:55→16:56)
[2020-11-19] MEDS: MICONAZOLE 2% POWDER (DESENEX AF) 90 GM TOP SCH ×2 (09:03→20:41)
[2020-11-19] MEDS: amLODIPine 5 MG (NORVASC) TAB PO SCH (09:03)
--- NOTE | 2020-11-19 11:32 | Physical Therapy Daily Note ---
PT Daily Note-Current Subjective Patient agrees to PT. Mental Status Patient Orientation: Person, Time, Situation Attachments: Oxygen, [place] Catheter, IV Transfers SCALE: Activities may be completed with or without assistive devices. 2-Nxbfqnagcd-rejcrgy completes the activity by him/herself with no assistance from a helper. 5-Set-up or Clean-up Assistance-helper sets up or cleans up; patient completes activity. [place] assists only prior to or following the activity. 4-Supervision or Touching Assistance-helper provides verbal cues and/or touching/steadying and/or contact guard assistance as patient completes activity. Assistance may be provided throughout the activity or intermittently. 3-Partial/Moderate Assistance-helper does LESS THAN HALF the effort. [place] lifts, holds or supports trunk or limbs, but provides less than half the effort. 2-Substantial/Maximal Assistance-helper does MORE THAN HALF the effort. [place] lifts or holds trunk or limbs and provides more than half the effort. 9-Ostwzesgn-edyyxm does ALL the effort. Patient does none of the effort to complete the activity. Or, the assistance of 2 or more helpers is required for the patient to complete the activity. If activity was not attempted, code reason: 7-Patient Refused. 9-Not Applicable-not attempted and the patient did not perform the activity before the current illness, exacerbation or injury. 10-Not Attempted due to Environmental Limitations-(lack of equipment, weather restraints, etc.). 88-Not Attempted due to Medical Conditions or Safety Concerns. Roll Left & Right (QC): 1 (x 2) Sit to Lying (QC): 1 (x 2) Lying to Sitting/Side of Bed(Q: 1 (x 2) patient sat EOB x 8 min with CGA to maintain Exercises Supine Ex: Ankle pumps, Heel Slides, Straight leg raise, Hip abd/add Supine Reps: 12 (AAROM) Assessment Patient tolerates minimal activity. Patient was placed on bed dunne for BM. Nursing present. PT Short Term Goals Short Term Goals Time Frame: Dec 04, 2020 Roll Left & Right: 2 Sit to lyin Lying to sitting on side of be: 2 Sit to stand: 1 Chair/fxj-pz-rafoh transfer: 1 PT Shift Coordinator Goals Shift Coordinator Goals PT Usp Goals Time Frame: Jan 01, 2021 Roll Left & Right (QC): 4 Sit to Lying (QC): 4 Lying-Sitting on Side/Bed(QC): 4 Sit to Stand (QC): 4 Chair/Ggz-yv-Lciai Xfer(QC): 4 Toilet Transfer (QC): 4 Does the Patient Walk: Yes Walk 10 feet (QC): 3 Walk 50ft with 2 Turns (QC): 3 PT Plan Treatment/Plan Treatment Plan: Continue Plan of Care Treatment Plan: Bed Mobility, Education, Functional Activity Earnestine, Functional Strength, Gait, Safety, Therapeutic Exercise, Transfers Treatment Duration: Jan 01, 2021 Frequency: 5 times per week Estimated Hrs Per Day: .25 hour per day (to .5 ) Patient and/or Family Agrees t: Yes Time/GCodes Time In: 1040 Time Out: 1056 Total Billed Treatment Time: 16 Total Billed Treatment 1 visit EX 16 min ROSS DIAZ PT Nov 19, 2020 11:32
--- NOTE | 2020-11-19 12:09 | Progress Note - Hospitalist ---
Subjective HPI/CC On Admission Date Seen by Provider: Nov 19, 2020 Time Seen by Provider: 11:00 Subjective/Events-last exam NO major changes BM+ incontinent No pain Labs reviewed Review of Systems General: Fatigue, Malaise Pulmonary: Dyspnea Neurological: Weakness, Incoordination Objective Exam Vital Signs Vital Signs Date Time Temp Pulse Resp B/P (MAP) Pulse Ox O2 Delivery O2 Flow Rate FiO2 11/20/20 03:36 36.7 90 28 143/64 (90) 94 Nasal Cannula 3.00 11/18/20 07:49 35 Capillary Refill : Less Than 3 Seconds General Appearance: No Apparent Distress, WD/WN, Chronically ill, Obese Respiratory: Lungs Clear, Normal Breath Sounds Cardiovascular: Regular Rate, Rhythm Neurologic/Psychiatric: Alert Results/Procedures Lab Laboratory Tests 11/20/20 06:40 Patient resulted labs reviewed. Assessment/Plan Assessment and Plan Assess & Plan/Chief Complaint Assessment: COVID-19 PNA on vent Hypoxia Breast cancer hx CAD HTN HLP Plan: O2 Lovenox COVID-19 support 10/21/20: Monitor O2 Monitor BP 10/22/20: Monitor low BP 10/23/20: Monitor BP and BS Adjust meds down 10/24/20: Monitor sugar and BP Monitor for increased O2 requirements 10/30/20: biPAP Monitor closely High risk for decompensation 10/31/20: Maxed on Vapotherm BiPAP also 11/13/20: Vent Prognosis poor 11/14/20: VDRF Recovery potential? 11/17/20: Vapotherm PT OT DNR Prognosis guarded 11/18/20: Give 1 unit of blood Monitor O2 PT OT 11/19/20: Needs NHP Critical Care Critically Ill Patient Diagnosis/Problems Diagnosis/Problems (1) COVID-19 Status: Acute (2) Hypoxia Status: Acute (3) Breast cancer Status: Chronic Qualifiers: Breast location: upper outer quadrant of breast Patient sex: female Laterality: left Permanent Comment: Left mastectomy done in 2014 Last Edited By: Maggie Chandra on Oct 25, 2020 15:38 (4) HTN (hypertension) Status: Chronic Qualifiers: Hypertension type: essential hypertension Qualified Codes: I10 - Essential (primary) hypertension (5) CAD (coronary artery disease) Status: Chronic Qualifiers: Coronary Disease-Associated Artery/Lesion type: [place] artery [place] vs. 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
--- NOTE | 2020-11-19 12:48 | NUR ---
CM/SS: Visited with pt as to her current status and plan for discharge. Plan: Pt is from home -unclear if she lived alone, prior to this hospital stay. Summary: Pt is sitting up in bed and is being fed lunch by DULCE Agarwal. Pt is able to answer questions from this worker and this worker introduced herself to pt and explained their role in the discharge planning process. Pt verbalizes understanding. This worker will follow up.
[2020-11-19 13:45] VITALS: BP 152/81
[2020-11-19] MEDS: VITAMIN D3 10 MCG (400 UNITS) TABLET PO SCH (13:55)
[2020-11-19] MEDS: FOLIC ACID 1 MG TAB PO SCH (13:56)
--- NOTE | 2020-11-19 14:19 | Occupational Ther Daily Note ---
OT Current Status-Daily Note Subjective Pt sleeping in bed. Pt opened eyes to name. Pt agrees to therapy then closed eyes throughout the rest of therapy. Mental Status/Objective Patient Orientation: Person Attachments: IV ADL-Treatment Nrsg completed all ADLs for pt. Therapy Code Descriptions/Definitions Functional [place] Measure: 0=Not Assessed/NA 4=Minimal Assistance 1=Total Assistance 5=Supervision or Setup 2=Maximal Assistance 6=Modified [place] 3=Moderate Assistance 7=Complete IndependenceSCALE: Activities may be completed with or without assistive devices. 6-Iljquqsyot-ppqkojk completes the activity by him/herself with no assistance from a helper. 5-Set-up or Clean-up Assistance-helper sets up or cleans up; patient completes activity. [place] assists only prior to or following the activity. 4-Supervision or Touching Assistance-helper provides verbal cues and/or touching/steadying and/or contact guard assistance as patient completes activity. Assistance may be provided throughout the activity or intermittently. 3-Partial/Moderate Assistance-helper does LESS THAN HALF the effort. [place] lifts, holds or supports trunk or limbs, but provides less than half the effort. 2-Substantial/Maximal Assistance-helper does MORE THAN HALF the effort. [place] lifts or holds trunk or limbs and provides more than half the effort. 7-Lwxrsxbew-cuupbu does ALL the effort. Patient does none of the effort to complete the activity. Or, the assistance of 2 or more helpers is required for the patient to complete the activity. If activity was not attempted, code reason: 7-Patient Refused. 9-Not Applicable-not attempted and the patient did not perform the activity before the current illness, exacerbation or injury. 10-Not Attempted due to Environmental Limitations-(lack of equipment, weather restraints, etc.). 88-Not Attempted due to Medical Conditions or Safety Concerns. Other Treatment PROM for B shldr flexion, 10x's. Pt able to complete B elbow flexion, 15x's. Completes B wrist flex/ext 15x's. B finger flex/ext 15x's. Finger opposition with AAROM 5x's. Pt educated about completing finger flex/ext to decrease hand edema. Pt then requested to have thickened water. Pt unable to hold spoon to bring to mouth. Pt able to lift head off pillow though relied on [place]WK[place] to place spoon in mouth. After therapy, pt lying in bed with eyes closed and wanting more water. Nrsg made aware of pt's needs. Call light/phone in reach. All needs met in room. OT Physician/Internist Goals Long-Term Goals Time Frame: Dec 17, 2020 Eating (QC): 5 Oral Hygiene (QC): 5 Toileting Hygiene (QC): 3 Shower/Bathe Self (QC): 3 Upper Body Dressing (QC): 3 Lower Body Dressing (QC): 3 On/Off Footwear (QC): 3 Additional Goals: 1-Demonstrate ADL Tasks, 2-Verbalize Understanding, 3- ImproveStrength/Earnestine 1=Demonstrate adherence to instructed precautions during ADL tasks. 2=Patient will verbalize/demonstrate understanding of assistive devices/modifications for ADL. 3=Patient will improve strength/tolerance for activity to enable patient to perform ADL's. OT Education/Plan Problem List/Assessment Assessment: Decreased Activ Tolerance, Decreased Safety Aware, Decreased UE Strength, Dependent Transfers, Impaired Bed Mobility, Impaired Cognition, Impaired Coordination, Impaired Funct Balance, Impaired I ADL's, Impaired Self- Care Skills, Restricted Funct UE ROM Discharge Recommendations Plan/Recommendations: Continue POC Treatment Plan/Plan of Care Patient would benefit from OT for education, treatment and training to promote independence in ADL's, mobility, safety and/or upper extremity function for ADL's. Plan of Care: ADL Retraining, Functional Mobility, UE Funct Exercise/Act Treatment Duration: Dec 17, 2020 Frequency: 5 times per week Estimated Hrs Per Day: .25 hour per day Rehab Potential: Guarded Time/GCodes Start Time: 13:30 Stop Time: 13:42 Total Time Billed (hr/min): 12 Billed Treatment Time 1 visit-EX 1 (12 min) ANNAMARIA NUNES Nov 19, 2020 14:19
--- NOTE | 2020-11-19 15:25 | NUR ---
CALLED PATIENT'S SON ADIN [place] [phone] WITH [employer]PD[employer]. LET HIM KNOW THAT THE PATIENT ASKED IF HER FAMILY HAS CALLED TO CHECK ON HER. THE SON AND DAUGHTER WILL CALL [facility] AT 2000 TO TALK WITH THE PATIENT. IF THEY CAN LOCATE AN I-PHONE WILL TRY [employer].
[2020-11-19 16:00] VITALS: BP 185/83
[2020-11-19] MEDS: hydrALAZINE (APESOLINE) 20 MG/ML VIAL IV PRN (16:56)
--- NOTE | 2020-11-19 17:00 | NUR ---
LOW URINE OUTPUT NOTED. BLADDER SCAN SHOWED 349 MLS. [place] WAS FLUSHED. 500 MLS URINE DRAINED INTO CATHETER BAG. THAT AMOUNT WILL BE RECORDED IN THE NEXT I&O REPORTED AT 2200.
[2020-11-19 20:30] VITALS: BP 144/75
[2020-11-19] MEDS: FENOFIBRATE 134 MG (LOFIBRA) CAPSULE PO SCH (20:32)
[2020-11-19] MEDS: ACETAMINOPHEN 500 MG TAB (TYLENOL) PO PRN (20:33)
[2020-11-20] VITALS (7 sets, daily range): BP systolic 139–169; BP diastolic 63–78
[2020-11-20] MEDS: RT-ALBUTEROL INHALER HFA (VENTOLIN HFA) 18 GM IH SCH ×6 (01:45→22:14)
[2020-11-20] MEDS: inSUlin ASPART (NovoLOG) 1 UNIT/0.01 ML (CHARGE PER UNIT) SC SCH ×4 (05:59→21:05)
[2020-11-20] MEDS: GABAPENTIN 300 MG (NEURONTIN) CAP PO SCH ×3 (06:28→21:04)
[2020-11-20] MEDS: CATHETER FLUSH 10 ML SYR IV SCH ×3 (06:28→21:15)
[2020-11-20 06:49] LABS: BASOPHILS % (AUTO) 0 % (0-10); EOSINOPHILS # (AUTO) 0.4 10^3/uL (0.0-0.3); EOSINOPHILS % (AUTO) 4 % (0-10); HEMATOCRIT 26 % (35-52); HEMOGLOBIN 7.5 g/dL (11.5-16.0); LYMPHOCYTES # (AUTO) 0.9 10^3/uL (1.0-4.0); LYMPHOCYTES % (AUTO) 10 % (12-44); MEAN CORPUSCULAR HEMOGLOBIN 27 pg (25-34); MEAN CORPUSCULAR HGB CONC 29 g/dL (32-36); MEAN CORPUSCULAR VOLUME 95 fL (80-99); MEAN PLATELET VOLUME 11.8 fL (9.0-12.2); MONOCYTES # (AUTO) 0.4 10^3/uL (0.0-1.0); MONOCYTES % (AUTO) 4 % (0-12); NEUTROPHILS # (AUTO) 6.9 10^3/uL (1.8-7.8); NEUTROPHILS % (AUTO) 75 % (42-75); PLATELET COUNT 350 10^3/uL (130-400); WHITE BLOOD COUNT 9.3 10^3/uL (4.3-11.0)
[2020-11-20 07:03] LABS: ALBUMIN 2.4 GM/DL (3.2-4.5); CHLORIDE 118 MMOL/L (98-107); POTASSIUM 3.4 MMOL/L (3.6-5.0); SODIUM 150 MMOL/L (135-145)
[2020-11-20 07:04] LABS: CALCIUM 8.1 MG/DL (8.5-10.1)
[2020-11-20 07:05] LABS: GLUCOSE 95 MG/DL (70-105); TOTAL PROTEIN 5.1 GM/DL (6.4-8.2)
[2020-11-20 07:06] LABS: CARBON DIOXIDE 22 MMOL/L (21-32)
[2020-11-20 07:07] LABS: BILIRUBIN,TOTAL 0.6 MG/DL (0.1-1.0)
[2020-11-20 07:09] LABS: ALKALINE PHOSPHATASE 37 U/L (40-136); GFR ESTIMATED > 60
[2020-11-20 07:10] LABS: BUN/CREATININE RATIO 36
[2020-11-20 07:12] LABS: ALANINE AMINOTRANSFERASE 26 U/L (0-55); MAGNESIUM 1.6 MG/DL (1.6-2.4)
[2020-11-20] MEDS: KCL 20 MEQ TAB (K-DUR) PO SCH (07:16)
[2020-11-20] MEDS: POTASSIUM CL 10MEQ/50ML IVPB 50 ML IV SCH (07:17)
[2020-11-20] MEDS: MAGNESIUM 1 GM/100 ML IVPB 100 ML IV SCH ×3 (07:19→08:48)
[2020-11-20] MEDS ORDERED: KCL 20 MEQ TAB (K-DUR) PO ONE (07:30)
[2020-11-20] MEDS: meTOprolol TARTRATE 25 MG (LOPRESSOR) TABLET PO SCH ×2 (08:45→21:03)
[2020-11-20] MEDS: ENOXAPARIN 300 MG/3 ML (LOVENOX) MULTI-DOSE VIAL SQ SCH ×2 (08:45→21:03)
[2020-11-20] MEDS: PANTOPRAZOLE 40 MG (PROTONIX) VIAL IV SCH (08:45)
[2020-11-20] MEDS: FERROUS SULF 325 MG (IRON) TAB PO SCH ×3 (08:45→16:55)
[2020-11-20] MEDS: amLODIPine 5 MG (NORVASC) TAB PO SCH (08:45)
[2020-11-20] MEDS: OMEGA 3 (FISH OIL) 1000 MG CAP PO SCH ×3 (08:45→16:55)
[2020-11-20] MEDS: ASPIRIN 81 MG CHEW (CHILDREN'S ASA) PO SCH (08:45)
[2020-11-20] MEDS: MICONAZOLE 2% POWDER (DESENEX AF) 90 GM TOP SCH ×2 (08:46→21:05)
--- NOTE | 2020-11-20 10:18 | Physical Therapy Daily Note ---
PT Daily Note-Current Subjective States that she is really tired from changing the bed but she will try to sit up. Transfers SCALE: Activities may be completed with or without assistive devices. 2-Rzwvutceiz-tsutkyl completes the activity by him/herself with no assistance from a helper. 5-Set-up or Clean-up Assistance-helper sets up or cleans up; patient completes activity. [place] assists only prior to or following the activity. 4-Supervision or Touching Assistance-helper provides verbal cues and/or touching/steadying and/or contact guard assistance as patient completes activity. Assistance may be provided throughout the activity or intermittently. 3-Partial/Moderate Assistance-helper does LESS THAN HALF the effort. [place] lifts, holds or supports trunk or limbs, but provides less than half the effort. 2-Substantial/Maximal Assistance-helper does MORE THAN HALF the effort. [place] lifts or holds trunk or limbs and provides more than half the effort. 4-Igwytabua-avdsfx does ALL the effort. Patient does none of the effort to complete the activity. Or, the assistance of 2 or more helpers is required for the patient to complete the activity. If activity was not attempted, code reason: 7-Patient Refused. 9-Not Applicable-not attempted and the patient did not perform the activity before the current illness, exacerbation or injury. 10-Not Attempted due to Environmental Limitations-(lack of equipment, weather restraints, etc.). 88-Not Attempted due to Medical Conditions or Safety Concerns. Roll Left & Right (QC): 1 Sit to Lying (QC): 1 Assessment Current Status: Fair Progress Patient very lethargic and was not able to assist much with supine to sit transfer. PT Short Term Goals Short Term Goals Time Frame: Dec 04, 2020 Roll Left & Right: 2 Sit to lyin Lying to sitting on side of be: 2 Sit to stand: 1 Chair/qhw-sk-qswbn transfer: 1 PT Correction Goals Flight Service Agent Goals PT Flight Service Agent Goals Time Frame: Jan 01, 2021 Roll Left & Right (QC): 4 Sit to Lying (QC): 4 Lying-Sitting on Side/Bed(QC): 4 Sit to Stand (QC): 4 Chair/Vgz-tx-Yoceo Xfer(QC): 4 Toilet Transfer (QC): 4 Does the Patient Walk: Yes Walk 10 feet (QC): 3 Walk 50ft with 2 Turns (QC): 3 PT Plan Treatment/Plan Treatment Plan: Continue Plan of Care Treatment Plan: Bed Mobility, Education, Functional Activity Earnestine, Functional Strength, Gait, Safety, Therapeutic Exercise, Transfers Treatment Duration: Jan 01, 2021 Frequency: 5 times per week Estimated Hrs Per Day: .25 hour per day (to .5 ) Patient and/or Family Agrees t: Yes Time/GCodes Time In: 1000 Time Out: 1010 Total Billed Treatment Time: 10 Total Billed Treatment 1, FA x 10' STEVENSON CHAVEZ PT Nov 20, 2020 10:18
[2020-11-20] MEDS: hydrALAZINE (APESOLINE) 20 MG/ML VIAL IV PRN (11:58)
--- NOTE | 2020-11-20 13:08 | Progress Note - Hospitalist ---
Subjective HPI/CC On Admission Date Seen by Provider: Nov 20, 2020 Time Seen by Provider: 12:00 Subjective/Events-last exam Improved mood Eating well Bed bound Objective Exam Vital Signs Vital Signs Date Time Temp Pulse Resp B/P (MAP) Pulse Ox O2 Delivery O2 Flow Rate FiO2 11/21/20 06:52 90 Nasal Cannula 4.00 11/21/20 04:19 35.8 86 20 124/56 (78) 11/18/20 07:49 35 Capillary Refill : Less Than 3 Seconds General Appearance: No Apparent Distress, WD/WN, Chronically ill Respiratory: Chest Non Tender, Lungs Clear, Normal Breath Sounds, No Accessory Muscle Use, No Respiratory Distress Cardiovascular: Regular Rate, Rhythm, No Edema, No Gallop, No JVD, No Murmur, Normal Peripheral Pulses Neurologic/Psychiatric: Alert, Oriented x3, No Motor/Sensory Deficits, Normal Mood/Affect Results/Procedures Lab Laboratory Tests 11/21/20 05:55 Patient resulted labs reviewed. Assessment/Plan Assessment and Plan Assess & Plan/Chief Complaint Assessment: COVID-19 PNA on vent Hypoxia Breast cancer hx CAD HTN HLP Plan: O2 Lovenox COVID-19 support 10/21/20: Monitor O2 Monitor BP 10/22/20: Monitor low BP 10/23/20: Monitor BP and BS Adjust meds down 10/24/20: Monitor sugar and BP Monitor for increased O2 requirements 10/30/20: biPAP Monitor closely High risk for decompensation 10/31/20: Maxed on Vapotherm BiPAP also 11/13/20: Vent Prognosis poor 11/14/20: VDRF Recovery potential? 11/17/20: Vapotherm PT OT DNR Prognosis guarded 11/18/20: Give 1 unit of blood Monitor O2 PT OT 11/19/20: Needs NHP 11/20/20: Supportive care Needs NHP Critical Care Critically Ill Patient Diagnosis/Problems Diagnosis/Problems (1) COVID-19 Status: Acute (2) Hypoxia Status: Acute (3) Breast cancer Status: Chronic Qualifiers: Breast location: upper outer quadrant of breast Patient sex: female Laterality: left Permanent Comment: Left mastectomy done in 2014 Last Edited By: Maggie Chandra on Oct 25, 2020 15:38 (4) HTN (hypertension) Status: Chronic Qualifiers: Hypertension type: essential hypertension Qualified Codes: I10 - Essential (primary) hypertension (5) CAD (coronary artery disease) Status: Chronic Qualifiers: Coronary Disease-Associated Artery/Lesion type: [place] artery [place] vs. 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
[2020-11-20] MEDS: VITAMIN D3 10 MCG (400 UNITS) TABLET PO SCH (13:38)
[2020-11-20] MEDS: FOLIC ACID 1 MG TAB PO SCH (13:38)
[2020-11-20] MEDS: ACETAMINOPHEN 500 MG TAB (TYLENOL) PO PRN (16:54)
[2020-11-20] MEDS: 1/2 NS IV SOLUTION 1,000 ML IV SCH ×2 (16:55→21:14)
[2020-11-20] MEDS: FENOFIBRATE 134 MG (LOFIBRA) CAPSULE PO SCH (21:04)
[2020-11-21] VITALS (8 sets, daily range): BP systolic 124–145; BP diastolic 56–83
[2020-11-21] MEDS: RT-ALBUTEROL INHALER HFA (VENTOLIN HFA) 18 GM IH SCH ×6 (03:02→21:32)
[2020-11-21] MEDS: ACETAMINOPHEN 500 MG TAB (TYLENOL) PO PRN ×3 (03:32→18:33)
[2020-11-21] MEDS: inSUlin ASPART (NovoLOG) 1 UNIT/0.01 ML (CHARGE PER UNIT) SC SCH ×4 (05:42→20:07)
[2020-11-21 06:17] LABS: POTASSIUM 3.9 MMOL/L (3.6-5.0)
[2020-11-21 06:24] LABS: MAGNESIUM 1.8 MG/DL (1.6-2.4)
[2020-11-21] MEDS: CATHETER FLUSH 10 ML SYR IV SCH ×3 (06:29→22:00)
[2020-11-21] MEDS: POTASSIUM CL 10MEQ/50ML IVPB 50 ML IV SCH (06:29)
[2020-11-21] MEDS: MAGNESIUM 1 GM/100 ML IVPB 100 ML IV SCH (06:29)
[2020-11-21] MEDS: KCL 20 MEQ TAB (K-DUR) PO SCH (06:30)
[2020-11-21] MEDS: GABAPENTIN 300 MG (NEURONTIN) CAP PO SCH ×3 (06:55→20:15)
[2020-11-21 08:02] LABS: BASOPHILS % (AUTO) 0 % (0-10); EOSINOPHILS # (AUTO) 0.3 10^3/uL (0.0-0.3); EOSINOPHILS % (AUTO) 2 % (0-10); HEMATOCRIT 23 % (35-52); LYMPHOCYTES % (AUTO) 8 % (12-44); MEAN CORPUSCULAR HEMOGLOBIN 27 pg (25-34); MEAN CORPUSCULAR HGB CONC 29 g/dL (32-36); MEAN CORPUSCULAR VOLUME 94 fL (80-99); MONOCYTES # (AUTO) 0.4 10^3/uL (0.0-1.0); MONOCYTES % (AUTO) 4 % (0-12); NEUTROPHILS % (AUTO) 78 % (42-75); PLATELET COUNT 317 10^3/uL (130-400); WHITE BLOOD COUNT 11.6 10^3/uL (4.3-11.0)
[2020-11-21 08:10] LABS: HEMOGLOBIN 6.6 g/dL (11.5-16.0)
[2020-11-21 08:15] LABS: ALBUMIN 2.3 GM/DL (3.2-4.5); CHLORIDE 114 MMOL/L (98-107); POTASSIUM 3.5 MMOL/L (3.6-5.0); SODIUM 145 MMOL/L (135-145)
[2020-11-21] MEDS ORDERED: NS IV 500 ML 500 ML IV SCH (08:15)
--- NOTE | 2020-11-21 08:15 | NUR ---
CALLED DR MCCARTY WITH CRITICAL [facility]BG 6.6. SHE WISHES TO BE SENT A TEXT WITH THINGS LIKE THIS INSTEAD OF CALLING HER. GIVE 1 UNIT OF BLOOD. DO NOT RECHECK HBG.
[2020-11-21 08:16] LABS: CALCIUM 7.9 MG/DL (8.5-10.1)
[2020-11-21 08:17] LABS: GLUCOSE 143 MG/DL (70-105); TOTAL PROTEIN 4.8 GM/DL (6.4-8.2)
[2020-11-21 08:18] LABS: CARBON DIOXIDE 21 MMOL/L (21-32)
[2020-11-21 08:19] LABS: BILIRUBIN,TOTAL 0.7 MG/DL (0.1-1.0)
[2020-11-21 08:21] LABS: ALKALINE PHOSPHATASE 36 U/L (40-136); CREATININE SERUM 0.66 MG/DL (0.60-1.30); GFR ESTIMATED > 60
[2020-11-21 08:22] LABS: BUN/CREATININE RATIO 32
[2020-11-21 08:24] LABS: ALANINE AMINOTRANSFERASE 27 U/L (0-55)
[2020-11-21] MEDS: PANTOPRAZOLE 40 MG (PROTONIX) VIAL IV SCH (09:26)
[2020-11-21] MEDS: FERROUS SULF 325 MG (IRON) TAB PO SCH ×3 (09:27→18:32)
[2020-11-21] MEDS: ENOXAPARIN 300 MG/3 ML (LOVENOX) MULTI-DOSE VIAL SQ SCH ×2 (09:27→20:15)
[2020-11-21] MEDS: ASPIRIN 81 MG CHEW (CHILDREN'S ASA) PO SCH (09:27)
[2020-11-21] MEDS: meTOprolol TARTRATE 25 MG (LOPRESSOR) TABLET PO SCH ×2 (09:27→20:14)
[2020-11-21] MEDS: amLODIPine 5 MG (NORVASC) TAB PO SCH (09:27)
[2020-11-21] MEDS: OMEGA 3 (FISH OIL) 1000 MG CAP PO SCH ×3 (09:27→18:32)
[2020-11-21] MEDS: MICONAZOLE 2% POWDER (DESENEX AF) 90 GM TOP SCH ×2 (09:28→20:16)
--- NOTE | 2020-11-21 12:34 | Progress Note - Hospitalist ---
Subjective HPI/CC On Admission Date Seen by Provider: Nov 21, 2020 Time Seen by Provider: 11:30 Subjective/Events-last exam Doing well Donte lift will be used to get her over to the chair at her request Hgb 6.6 will give 1 unit of blood Hydrocodone Q6hrs will be added Review of Systems General: Fatigue, Malaise Neurological: Incoordination Objective Exam Vital Signs Vital Signs Date Time Temp Pulse Resp B/P (MAP) Pulse Ox O2 Delivery O2 Flow Rate FiO2 11/21/20 18:01 94 Nasal Cannula 4.00 11/21/20 15:41 36.8 87 20 139/69 (92) 11/18/20 07:49 35 Capillary Refill : Less Than 3 Seconds General Appearance: No Apparent Distress, WD/WN, Chronically ill, Obese Respiratory: Chest Non Tender, Lungs Clear, Normal Breath Sounds, No Accessory Muscle Use, No Respiratory Distress Cardiovascular: Regular Rate, Rhythm, No Edema, No Gallop, No JVD, No Murmur, Normal Peripheral Pulses Neurologic/Psychiatric: Alert, Oriented x3, No Motor/Sensory Deficits, Normal Mood/Affect Results/Procedures Lab Laboratory Tests 11/21/20 05:55 11/21/20 07:54 Patient resulted labs reviewed. Assessment/Plan Assessment and Plan Assess & Plan/Chief Complaint Assessment: COVID-19 PNA on vent Hypoxia Breast cancer hx CAD HTN HLP Plan: O2 Lovenox COVID-19 support 10/21/20: Monitor O2 Monitor BP 10/22/20: Monitor low BP 10/23/20: Monitor BP and BS Adjust meds down 10/24/20: Monitor sugar and BP Monitor for increased O2 requirements 10/30/20: biPAP Monitor closely High risk for decompensation 10/31/20: Maxed on Vapotherm BiPAP also 11/13/20: Vent Prognosis poor 11/14/20: VDRF Recovery potential? 11/17/20: Vapotherm PT OT DNR Prognosis guarded 11/18/20: Give 1 unit of blood Monitor O2 PT OT 11/19/20: Needs NHP 11/20/20: Supportive care Needs NHP 11/21/20: Monitor closely Give 1 unit Critical Care Critically Ill Patient Diagnosis/Problems Diagnosis/Problems (1) COVID-19 Status: Acute (2) Hypoxia Status: Acute (3) Breast cancer Status: Chronic Qualifiers: Breast location: upper outer quadrant of breast Patient sex: female Laterality: left Permanent Comment: Left mastectomy done in 2014 Last Edited By: Maggie Chandra on Oct 25, 2020 15:38 (4) HTN (hypertension) Status: Chronic Qualifiers: Hypertension type: essential hypertension Qualified Codes: I10 - Essential (primary) hypertension (5) CAD (coronary artery disease) Status: Chronic Qualifiers: Coronary Disease-Associated Artery/Lesion type: [place] artery [place] vs. 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
[2020-11-21] MEDS: VITAMIN D3 10 MCG (400 UNITS) TABLET PO SCH (13:12)
[2020-11-21] MEDS: HYDROcodone/APAP 5 MG/325 MG (LORTAB) TAB PO PRN ×2 (13:12→22:54)
[2020-11-21] MEDS: FOLIC ACID 1 MG TAB PO SCH (13:13)
--- NOTE | 2020-11-21 13:43 | NUR ---
PATIENT IS STILL COMPLAINING OF PAIN. POSITION CHANGES, MASSAGING LEGS, UP IN THE CHAIR WITH A S[place] LIFT, TYLENOL THIS AM AND LORTAB. SHE IS STILL COMPLAINING AND WANTS TO GO GET BACK IN BED NOW. PATIENT WILL NOT ATTEMPT TO MOVE HER ARMS OR LEGS HERSELF. THIS RN HAS WITNESSED HER LIFT HER LEGS ROTATE HER ANKLES AROUND--HOWEVER WHEN SHE IS ASKED TO DO IT, SHE STATES THAT SHE IS TRYING BUT SHE CAN'T.
[2020-11-21] MEDS: FENOFIBRATE 134 MG (LOFIBRA) CAPSULE PO SCH (20:14)
[2020-11-22] VITALS (9 sets, daily range): BP systolic 111–150; BP diastolic 61–82
[2020-11-22] MEDS: inSUlin ASPART (NovoLOG) 1 UNIT/0.01 ML (CHARGE PER UNIT) SC SCH ×4 (05:31→21:19)
[2020-11-22 05:42] LABS: BASOPHILS % (AUTO) 0 % (0-10); EOSINOPHILS # (AUTO) 0.3 10^3/uL (0.0-0.3); EOSINOPHILS % (AUTO) 2 % (0-10); HEMATOCRIT 23 % (35-52); LYMPHOCYTES # (AUTO) 0.8 10^3/uL (1.0-4.0); LYMPHOCYTES % (AUTO) 7 % (12-44); MEAN CORPUSCULAR HEMOGLOBIN 28 pg (25-34); MEAN CORPUSCULAR HGB CONC 30 g/dL (32-36); MEAN CORPUSCULAR VOLUME 93 fL (80-99); MEAN PLATELET VOLUME 11.8 fL (9.0-12.2); MONOCYTES # (AUTO) 0.4 10^3/uL (0.0-1.0); MONOCYTES % (AUTO) 4 % (0-12); NEUTROPHILS # (AUTO) 9.1 10^3/uL (1.8-7.8); NEUTROPHILS % (AUTO) 80 % (42-75); PLATELET COUNT 270 10^3/uL (130-400); WHITE BLOOD COUNT 11.4 10^3/uL (4.3-11.0)
[2020-11-22 05:46] LABS: HEMOGLOBIN 6.8 g/dL (11.5-16.0)
[2020-11-22 05:51] LABS: ALBUMIN 2.2 GM/DL (3.2-4.5)
[2020-11-22 05:52] LABS: CHLORIDE 115 MMOL/L (98-107); POTASSIUM 3.3 MMOL/L (3.6-5.0); SODIUM 144 MMOL/L (135-145)
[2020-11-22 05:53] LABS: CALCIUM 7.5 MG/DL (8.5-10.1)
[2020-11-22 05:54] LABS: GLUCOSE 85 MG/DL (70-105); TOTAL PROTEIN 4.5 GM/DL (6.4-8.2)
[2020-11-22 05:55] LABS: CARBON DIOXIDE 21 MMOL/L (21-32)
[2020-11-22 05:56] LABS: BILIRUBIN,TOTAL 0.6 MG/DL (0.1-1.0)
[2020-11-22 05:57] LABS: ALKALINE PHOSPHATASE 35 U/L (40-136)
[2020-11-22 05:58] LABS: CREATININE SERUM 0.57 MG/DL (0.60-1.30); GFR ESTIMATED > 60
[2020-11-22 05:59] LABS: BUN/CREATININE RATIO 35
[2020-11-22 06:00] LABS: ALANINE AMINOTRANSFERASE 28 U/L (0-55)
[2020-11-22] MEDS ORDERED: NS IV 500 ML 500 ML IV SCH (06:00)
[2020-11-22] MEDS: CATHETER FLUSH 10 ML SYR IV SCH ×3 (06:19→22:00)
[2020-11-22] MEDS: POTASSIUM CL 10MEQ/50ML IVPB 50 ML IV SCH (06:20)
[2020-11-22] MEDS: KCL 20 MEQ TAB (K-DUR) PO SCH (06:30)
[2020-11-22] MEDS: GABAPENTIN 300 MG (NEURONTIN) CAP PO SCH ×3 (06:30→21:19)
[2020-11-22] MEDS: MAGNESIUM 1 GM/100 ML IVPB 100 ML IV SCH ×3 (06:40→08:14)
[2020-11-22] MEDS: RT-ALBUTEROL INHALER HFA (VENTOLIN HFA) 18 GM IH SCH ×5 (07:29→22:11)
[2020-11-22] MEDS ORDERED: KCL 20 MEQ TAB (K-DUR) PO ONE (08:30)
[2020-11-22] MEDS: FERROUS SULF 325 MG (IRON) TAB PO SCH ×3 (10:34→19:21)
[2020-11-22] MEDS: meTOprolol TARTRATE 25 MG (LOPRESSOR) TABLET PO SCH ×2 (10:34→21:19)
[2020-11-22] MEDS: amLODIPine 5 MG (NORVASC) TAB PO SCH (10:35)
[2020-11-22] MEDS: ASPIRIN 81 MG CHEW (CHILDREN'S ASA) PO SCH (10:35)
[2020-11-22] MEDS: OMEGA 3 (FISH OIL) 1000 MG CAP PO SCH ×3 (10:35→19:21)
[2020-11-22] MEDS: PANTOPRAZOLE 40 MG (PROTONIX) VIAL IV SCH (10:36)
[2020-11-22] MEDS: MICONAZOLE 2% POWDER (DESENEX AF) 90 GM TOP SCH ×2 (10:37→21:20)
[2020-11-22] MEDS: NS IV 500 ML 500 ML IV SCH (11:13)
--- NOTE | 2020-11-22 11:55 | Physical Therapy Daily Note ---
PT Daily Note-Current Subjective Patient reluctantly agrees to PT. Currently receiving PRBC due to critical Hgb. Pain Numeric Pain Scale: 5-Moderate Pain Location: Right, Left Location Body Site: Knee Pain Description: Chronic Mental Status Patient Orientation: Person, Time, Situation Attachments: Oxygen, [place] Catheter, IV Transfers SCALE: Activities may be completed with or without assistive devices. 1-Mrmagtyryt-kaxhmbl completes the activity by him/herself with no assistance from a helper. 5-Set-up or Clean-up Assistance-helper sets up or cleans up; patient completes activity. [place] assists only prior to or following the activity. 4-Supervision or Touching Assistance-helper provides verbal cues and/or touching/steadying and/or contact guard assistance as patient completes activity. Assistance may be provided throughout the activity or intermittently. 3-Partial/Moderate Assistance-helper does LESS THAN HALF the effort. [place] lifts, holds or supports trunk or limbs, but provides less than half the effort. 2-Substantial/Maximal Assistance-helper does MORE THAN HALF the effort. [place] lifts or holds trunk or limbs and provides more than half the effort. 8-Ehydrgbvo-lpfzfp does ALL the effort. Patient does none of the effort to complete the activity. Or, the assistance of 2 or more helpers is required for the patient to complete the activity. If activity was not attempted, code reason: 7-Patient Refused. 9-Not Applicable-not attempted and the patient did not perform the activity before the current illness, exacerbation or injury. 10-Not Attempted due to Environmental Limitations-(lack of equipment, weather restraints, etc.). 88-Not Attempted due to Medical Conditions or Safety Concerns. Exercises Supine Ex: Ankle pumps, Heel Slides, Straight leg raise, Hip abd/add Supine Reps: 15 (x 2 sets PROM) Assessment Due to critical Hgb, patient is not safe to perform EOB or OOB activity at this time. RN is aware and agrees. PT Short Term Goals Short Term Goals Time Frame: Dec 04, 2020 Roll Left & Right: 2 Sit to lyin Lying to sitting on side of be: 2 Sit to stand: 1 Chair/meh-mq-effah transfer: 1 PT Licensing Manager Goals Long-Term Goals PT Licensing Manager Goals Time Frame: Jan 01, 2021 Roll Left & Right (QC): 4 Sit to Lying (QC): 4 Lying-Sitting on Side/Bed(QC): 4 Sit to Stand (QC): 4 Chair/Iab-yp-Fomqp Xfer(QC): 4 Toilet Transfer (QC): 4 Does the Patient Walk: Yes Walk 10 feet (QC): 3 Walk 50ft with 2 Turns (QC): 3 PT Plan Treatment/Plan Treatment Plan: Continue Plan of Care Treatment Plan: Bed Mobility, Education, Functional Activity Earnestine, Functional Strength, Gait, Safety, Therapeutic Exercise, Transfers Treatment Duration: Jan 01, 2021 Frequency: 5 times per week Estimated Hrs Per Day: .25 hour per day (to .5 ) Patient and/or Family Agrees t: Yes Time/GCodes Time In: 1127 Time Out: 1137 Total Billed Treatment Time: 10 Total Billed Treatment 1 visit EX 10 min ROSS DIAZ PT Nov 22, 2020 11:55
[2020-11-22] MEDS: HYDROcodone/APAP 5 MG/325 MG (LORTAB) TAB PO PRN (12:07)
--- NOTE | 2020-11-22 13:15 | Occupational Ther Daily Note ---
OT Current Status-Daily Note Subjective Pt alert, lying in bed. Pt has received blood transfusion today, low Hmg, no OOB activity. Mental Status/Objective Patient Orientation: Person Attachments: IV, Oxygen ADL-Treatment Therapy Code Descriptions/Definitions Functional [place] Measure: 0=Not Assessed/NA 4=Minimal Assistance 1=Total Assistance 5=Supervision or Setup 2=Maximal Assistance 6=Modified [place] 3=Moderate Assistance 7=Complete IndependenceSCALE: Activities may be completed with or without assistive devices. 8-Jtbpiklnaw-zjpmqym completes the activity by him/herself with no assistance from a helper. 5-Set-up or Clean-up Assistance-helper sets up or cleans up; patient completes activity. [place] assists only prior to or following the activity. 4-Supervision or Touching Assistance-helper provides verbal cues and/or touching/steadying and/or contact guard assistance as patient completes activity. Assistance may be provided throughout the activity or intermittently. 3-Partial/Moderate Assistance-helper does LESS THAN HALF the effort. [place] lifts, holds or supports trunk or limbs, but provides less than half the effort. 2-Substantial/Maximal Assistance-helper does MORE THAN HALF the effort. [place] lifts or holds trunk or limbs and provides more than half the effort. 1-Fmwrieuyk-qjzahp does ALL the effort. Patient does none of the effort to complete the activity. Or, the assistance of 2 or more helpers is required for the patient to complete the activity. If activity was not attempted, code reason: 7-Patient Refused. 9-Not Applicable-not attempted and the patient did not perform the activity before the current illness, exacerbation or injury. 10-Not Attempted due to Environmental Limitations-(lack of equipment, weather restraints, etc.). 88-Not Attempted due to Medical Conditions or Safety Concerns. Toileting Hygiene (QC): 1 (Assist x2 to complete rolling to cleanse pt after toileting.) Toilet Transfer (QC): 1 (Assist x2 to roll side to side to place bedpan.) Pt's B hands demonstrating decrease in edema. Pt states that she is not able to move B UE's to assist with rolling. Pt requires max A to stay on side when rol ling to acquire bedpan from under her. Pt keeps eyes closed throughout task and c/o pain with all movement. Dependent for bed mobility, toileting and hygiene. After session, pt lying in bed with call light/phone in reach. All needs met in room. Nrsg in room. OT [facility] Goals Employment Trainer Goals Time Frame: Dec 17, 2020 Eating (QC): 5 Oral Hygiene (QC): 5 Toileting Hygiene (QC): 3 Shower/Bathe Self (QC): 3 Upper Body Dressing (QC): 3 Lower Body Dressing (QC): 3 On/Off Footwear (QC): 3 Additional Goals: 1-Demonstrate ADL Tasks, 2-Verbalize Understanding, 3- ImproveStrength/[place] 1=Demonstrate adherence to instructed precautions during ADL tasks. 2=Patient will verbalize/demonstrate understanding of assistive devices/modifications for ADL. 3=Patient will improve strength/tolerance for activity to enable patient to perform ADL's. OT Education/Plan Problem List/Assessment Assessment: Decreased Activ Tolerance, Decreased Safety Aware, Decreased UE Strength, Dependent Transfers, Impaired Bed Mobility, Impaired Coordination, Impaired Funct Balance, Impaired I ADL's, Impaired Self-Care Skills, Restricted Funct UE ROM Discharge Recommendations Plan/Recommendations: Continue POC Treatment Plan/Plan of Care Patient would benefit from OT for education, treatment and training to promote independence in ADL's, mobility, safety and/or upper extremity function for ADL's. Plan of Care: ADL Retraining, Functional Mobility, UE Funct Exercise/Act Treatment Duration: Dec 17, 2020 Frequency: 5 times per week Estimated Hrs Per Day: .25 hour per day Rehab Potential: Guarded Time/GCodes Start Time: 13:15 Stop Time: 13:26 Total Time Billed (hr/min): 11 Billed Treatment Time 1 visit-FA 1 (11 min) ANNAMARIA NUNES Nov 22, 2020 13:15
[2020-11-22] MEDS: VITAMIN D3 10 MCG (400 UNITS) TABLET PO SCH (13:39)
[2020-11-22] MEDS: FOLIC ACID 1 MG TAB PO SCH (13:53)
--- NOTE | 2020-11-22 16:13 | Progress Note ---
Subjective Subjective/Events-last exam Afebrile, feels okay, just very weak. She had hemoglobin below 7 again today, receiving another unit of blood. No grossly blood stools. No vomiting. Objective Exam Last Set of Vital Signs Vital Signs Date Time Temp Pulse Resp B/P (MAP) Pulse Ox O2 Delivery O2 Flow Rate FiO2 11/22/20 15:52 36.1 80 22 135/81 (99) 97 Nasal Cannula 3.00 11/22/20 10:54 32 Capillary Refill : Less Than 3 Seconds I&O Intake and Output 11/22/20 00:00 Intake Total 1060 ml Output Total 750 ml Balance 310 ml Intake Oral 1030 ml IV Total 30 ml Output Urine Total 750 ml General: Alert, No Acute Distress Lungs: Clear to Auscultation, Normal Air Movement Heart: Regular Rate, No Murmurs Abdomen: Normal Bowel Sounds, Soft Neuro: Normal Speech Psych/Mental Status: Mood NL Results/Procedures Lab Laboratory Tests 11/21/20 19:15: Glucometer 133H 11/22/20 05:03: Glucometer 88 11/22/20 05:20: White Blood Count 11.4H, Red Blood Count 2.43L, Hemoglobin 6.8*L, Hematocrit 23L , Mean Corpuscular Volume 93, Mean Corpuscular Hemoglobin 28, Mean Corpuscular Hemoglobin Concent 30L, Red Cell Distribution Width 19.3H, Platelet Count 270, Mean Platelet Volume 11.8, Immature Granulocyte % (Auto) 7, Neutrophils (%) (Auto) 80H, Lymphocytes (%) (Auto) 7L, Monocytes (%) (Auto) 4, Eosinophils (%) (Auto) 2, Basophils (%) (Auto) 0, Neutrophils # (Auto) 9.1H, Lymphocytes # (Auto) 0.8L, Monocytes # (Auto) 0.4, Eosinophils # (Auto) 0.3, Basophils # (Auto) 0.0, Immature Granulocyte # (Auto) 0.8H, Sodium Level 144, Potassium Level 3.3L, Chloride Level 115H, Carbon Dioxide Level 21, Anion Gap 8, Blood Urea Nitrogen 20H, Creatinine 0.57L, Estimat Glomerular Filtration Rate > 60, BUN/Creatinine Ratio 35, Glucose Level 85, Calcium Level 7.5L, Corrected Calcium 8.9, Magnesium Level 1.6, Total Bilirubin 0.6, Aspartate Amino Transf (AST/SGOT) 42H, Alanine Aminotransferase (ALT/SGPT) 28, Alkaline Phosphatase 35L, Total Protein 4.5L, Albumin 2.2L 11/22/20 10:24: Glucometer 99 11/22/20 12:08: Glucometer 116H 11/22/20 13:20: Stool Occult Blood Immunoassay POSITIVEH 11/22/20 13:21: Lab Scanned Report Transfusion Reaction Form 11/22/20 15:45: Glucometer 86 Microbiology 11/16/20 C. difficile GDH Antigen & Toxins - Final, Complete 11/10/20 Gram Stain - Final, Complete 11/10/20 Sputum Culture - Final, Complete Staphylococcus aureus Enterococcus faecalis 11/10/20 Urine Culture - Final, Complete Klebsiella pneumoniae YEAST 11/10/20 Blood Culture - Final, Complete No growth Assessment/Plan Assessment/Plan (1) COVID-19 Status: Acute Assessment & Plan: Completed dexamethason and convalescent plasma, but required bipap and then mechanical ventilation for prolonged period, able to be extubated and weaned back, now on 3 lpm supplemental oxygen. (2) Pneumonia Status: Acute Assessment & Plan: Due to COVID19 10/28: Due to worsening respiratory failure started on Zosyn and Zyvox 11/22: no longer on antibiotics, afebrile, no significant leukocytosis (3) Acute respiratory failure with hypoxia Status: Acute Assessment & Plan: Present on admission, secondary to above. (4) Diabetes mellitus Status: Chronic Assessment & Plan: Continue home gabapentin, has had significant hyperglycemia throughout stay, levemir increased up to 52 units twice daily and sliding scale C, however recently has not needed sliding scale and blood sugar on lower side, monitor closely. 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 Qualifiers: Qualified Codes: I25.10 - Atherosclerotic heart disease of [place] coronary artery without angina pectoris (6) Breast cancer Status: Chronic Permanent Comment: Left mastectomy done in 2014 Last Edited By: Lauryn Chandra on Oct 25, 2020 15:38 Assessment & Plan: Home letrozole was ordered originally but non-formulary, and eventually cancelled, uncertain if this was due to not being brought in from home or other reason. Qualifiers: (7) CKD (chronic kidney disease) Status: Chronic Assessment & Plan: Stable, continue to monitor (8) Hyperlipidemia Status: Chronic Assessment & Plan: Continue home statin (9) HTN (hypertension) Status: Chronic Assessment & Plan: Continued home medications, but lisinopril previously held for hyperkalemia, will resume Qualifiers: Qualified Codes: I10 - Essential (primary) hypertension (10) Obesity (BMI 30-39.9) Status: Chronic Assessment & Plan: No acute management issues, but contributes to risk from COVID19 (11) Elevated d-dimer Status: Acute (12) Anemia Status: Acute Assessment & Plan: Normal on admit, trended down since then, now has been below 7 a few times and required 2 units PRBCs, third ordered today. Was on treatment dose enoxaparin for some time, this has been discontinued. Check stool occult blood. (13) DVT prophylaxis Status: Acute Assessment & Plan: Anticoagulation held due to severe anemia. Clinical Quality Measures DVT/VTE Risk/Contraindication: Risk Factor Score Per Nursin RFS Level Per Nursing on Admit: 3=High LAURYN CHANDRA MD Nov 22, 2020 16:13
[2020-11-22 19:41] LABS: HEMOGLOBIN 7.9 g/dL (11.5-16.0)
[2020-11-22] MEDS: 1/2 NS IV SOLUTION 1,000 ML IV SCH (19:59)
[2020-11-22] MEDS: FENOFIBRATE 134 MG (LOFIBRA) CAPSULE PO SCH (21:19)
[2020-11-23] VITALS: BP 147/63
[2020-11-23] MEDS: RT-ALBUTEROL INHALER HFA (VENTOLIN HFA) 18 GM IH SCH ×5 (02:08→18:50)
[2020-11-23 04:00] VITALS: BP 144/77
[2020-11-23 05:16] LABS: BASOPHILS # (AUTO) 0.1 10^3/uL (0.0-0.1); BASOPHILS % (AUTO) 0 % (0-10); EOSINOPHILS # (AUTO) 0.2 10^3/uL (0.0-0.3); EOSINOPHILS % (AUTO) 2 % (0-10); HEMATOCRIT 26 % (35-52); HEMOGLOBIN 7.9 g/dL (11.5-16.0); LYMPHOCYTES # (AUTO) 1.1 10^3/uL (1.0-4.0); LYMPHOCYTES % (AUTO) 8 % (12-44); MEAN CORPUSCULAR HEMOGLOBIN 29 pg (25-34); MEAN CORPUSCULAR HGB CONC 31 g/dL (32-36); MEAN CORPUSCULAR VOLUME 93 fL (80-99); MEAN PLATELET VOLUME 12.2 fL (9.0-12.2); MONOCYTES # (AUTO) 0.6 10^3/uL (0.0-1.0); MONOCYTES % (AUTO) 5 % (0-12); NEUTROPHILS # (AUTO) 10.2 10^3/uL (1.8-7.8); NEUTROPHILS % (AUTO) 77 % (42-75); PLATELET COUNT 300 10^3/uL (130-400); WHITE BLOOD COUNT 13.3 10^3/uL (4.3-11.0)
--- NOTE | 2020-11-23 05:30 | NUR ---
Pt urine output was 50cc through the night. Bladder scanned p, 556ml found. Removed old catheter and inserted a new one. Urine output with new catheter was 650ml.
[2020-11-23 05:32] LABS: ALBUMIN 2.3 GM/DL (3.2-4.5); CHLORIDE 112 MMOL/L (98-107); POTASSIUM 4.2 MMOL/L (3.6-5.0); SODIUM 140 MMOL/L (135-145)
[2020-11-23 05:34] LABS: CALCIUM 7.9 MG/DL (8.5-10.1)
[2020-11-23 05:35] LABS: GLUCOSE 84 MG/DL (70-105); TOTAL PROTEIN 5.4 GM/DL (6.4-8.2)
[2020-11-23 05:36] LABS: CARBON DIOXIDE 21 MMOL/L (21-32)
[2020-11-23 05:37] LABS: BILIRUBIN,TOTAL 0.7 MG/DL (0.1-1.0)
[2020-11-23 05:38] LABS: ALKALINE PHOSPHATASE 42 U/L (40-136); CREATININE SERUM 0.59 MG/DL (0.60-1.30); GFR ESTIMATED > 60
[2020-11-23 05:39] LABS: BUN/CREATININE RATIO 31
[2020-11-23 05:41] LABS: ALANINE AMINOTRANSFERASE 32 U/L (0-55); MAGNESIUM 1.9 MG/DL (1.6-2.4)
[2020-11-23] MEDS: MAGNESIUM 1 GM/100 ML IVPB 100 ML IV SCH (06:15)
[2020-11-23] MEDS: CATHETER FLUSH 10 ML SYR IV SCH ×3 (06:15→20:35)
[2020-11-23] MEDS: inSUlin ASPART (NovoLOG) 1 UNIT/0.01 ML (CHARGE PER UNIT) SC SCH ×4 (06:15→21:06)
[2020-11-23] MEDS: POTASSIUM CL 10MEQ/50ML IVPB 50 ML IV SCH (06:21)
[2020-11-23] MEDS: KCL 20 MEQ TAB (K-DUR) PO SCH (06:21)
[2020-11-23] MEDS: GABAPENTIN 300 MG (NEURONTIN) CAP PO SCH ×3 (06:27→20:32)
[2020-11-23 08:00] VITALS: BP 118/59
[2020-11-23] MEDS: PANTOPRAZOLE 40 MG (PROTONIX) VIAL IV SCH (08:30)
[2020-11-23] MEDS: ASPIRIN 81 MG CHEW (CHILDREN'S ASA) PO SCH (08:30)
[2020-11-23] MEDS: OMEGA 3 (FISH OIL) 1000 MG CAP PO SCH ×3 (08:30→18:00)
[2020-11-23] MEDS: FERROUS SULF 325 MG (IRON) TAB PO SCH ×4 (08:30→18:39)
[2020-11-23] MEDS: meTOprolol TARTRATE 25 MG (LOPRESSOR) TABLET PO SCH ×2 (08:30→20:32)
[2020-11-23] MEDS: lisINopril 20 MG (PRINIVIL) TABLET PO SCH (08:31)
[2020-11-23] MEDS: MICONAZOLE 2% POWDER (DESENEX AF) 90 GM TOP SCH ×2 (08:31→21:07)
[2020-11-23] MEDS: amLODIPine 5 MG (NORVASC) TAB PO SCH (08:33)
--- NOTE | 2020-11-23 09:05 | Progress Note ---
Subjective Subjective/Events-last exam Afebrile, feeling okay. Denies specific concerns. Objective Exam Last Set of Vital Signs Vital Signs Date Time Temp Pulse Resp B/P (MAP) Pulse Ox O2 Delivery O2 Flow Rate FiO2 11/23/20 08:00 36.3 88 20 118/59 (78) 97 Nasal Cannula 3.00 11/22/20 10:54 32 Capillary Refill : Less Than 3 SecondsLess Than 3 Seconds I&O Intake and Output 11/23/20 00:00 Intake Total 1180 ml Output Total 875 ml Balance 305 ml Intake Oral 1180 ml Output Urine Total 875 ml General: Alert, No Acute Distress Lungs: Clear to Auscultation Heart: Regular Rate Abdomen: Normal Bowel Sounds, Soft, No Tenderness Extremities: Other (1+ pitting edema) Neuro: Normal Speech Psych/Mental Status: Mood NL Results/Procedures Lab Laboratory Tests 11/22/20 10:24: Glucometer 99 11/22/20 12:08: Glucometer 116H 11/22/20 13:20: Stool Occult Blood Immunoassay POSITIVEH 11/22/20 13:21: Lab Scanned Report Transfusion Reaction Form 11/22/20 15:45: Glucometer 86 11/22/20 19:30: Hemoglobin 7.9L, Hematocrit 26L 11/22/20 20:35: Glucometer 140H 11/23/20 04:50: Hemoglobin 7.9L, Hematocrit 26L, White Blood Count 13.3H, Red Blood Count 2.74L, Mean Corpuscular Volume 93, Mean Corpuscular Hemoglobin 29, Mean Corpuscular Hemoglobin Concent 31L, Red Cell Distribution Width 19.3H, Platelet Count 300, Mean Platelet Volume 12.2, Immature Granulocyte % (Auto) 8, Neutrophils (%) (Au to) 77H, Lymphocytes (%) (Auto) 8L, Monocytes (%) (Auto) 5, Eosinophils (%) (Auto) 2, Basophils (%) (Auto) 0, Neutrophils # (Auto) 10.2H, Lymphocytes # (Auto) 1.1, Monocytes # (Auto) 0.6, Eosinophils # (Auto) 0.2, Basophils # (Auto) 0.1, Immature Granulocyte # (Auto) 1.0H, Sodium Level 140, Potassium Level 4.2, Chloride Level 112H, Carbon Dioxide Level 21, Anion Gap 7, Blood Urea Nitrogen 18, Creatinine 0.59L, Estimat Glomerular Filtration Rate > 60, BUN/Creatinine Ratio 31, Glucose Level 84, Calcium Level 7.9L, Corrected Calcium 9.3, Magnesium Level 1.9, Total Bilirubin 0.7, Aspartate Amino Transf (AST/SGOT) 46H, Alanine Aminotransferase (ALT/SGPT) 32, Alkaline Phosphatase 42, Total Protein 5.4L, Albumin 2.3L 11/23/20 08:28: Glucometer 103 Microbiology 11/16/20 C. difficile GDH Antigen & Toxins - Final, Complete 11/10/20 Gram Stain - Final, Complete 11/10/20 Sputum Culture - Final, Complete Staphylococcus aureus Enterococcus faecalis 11/10/20 Urine Culture - Final, Complete Klebsiella pneumoniae YEAST 11/10/20 Blood Culture - Final, Complete No growth Assessment/Plan Assessment/Plan (1) COVID-19 Status: Acute Assessment & Plan: Completed dexamethasone and convalescent plasma, but required bipap and then mechanical ventilation for prolonged period, able to be extubated and weaned back, now on 3 lpm supplemental oxygen. (2) Pneumonia Status: Acute Assessment & Plan: Due to COVID19 10/28: Due to worsening respiratory failure started on Zosyn and Zyvox 11/22: no longer on antibiotics, afebrile, no significant leukocytosis (3) Acute respiratory failure with hypoxia Status: Acute Assessment & Plan: Present on admission, secondary to above. (4) Diabetes mellitus Status: Chronic Assessment & Plan: Continue home gabapentin, has had significant hyperglycemia throughout stay, levemir increased up to 52 units twice daily and sliding scale C, however recently has not needed sliding scale and blood sugar on lower side, monitor closely. 11/23- blood sugars continue to be on lower side, decrease levemir to 30 units BID. 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 Qualifiers: Qualified Codes: I25.10 - Atherosclerotic heart disease of [place] coronary artery without angina pectoris (6) Breast cancer Status: Chronic Permanent Comment: Left mastectomy done in 2014 Last Edited By: Lauryn Chandra on Oct 25, 2020 15:38 Assessment & Plan: Home letrozole was ordered originally but non-formulary, and eventually cancelled, uncertain if this was due to not being brought in from home or other reason. Qualifiers: (7) CKD (chronic kidney disease) Status: Chronic Assessment & Plan: Stable, continue to monitor (8) Hyperlipidemia Status: Chronic Assessment & Plan: Continue home statin (9) HTN (hypertension) Status: Chronic Assessment & Plan: Continued home medications, but lisinopril previously held for hyperkalemia, will resume Qualifiers: Qualified Codes: I10 - Essential (primary) hypertension (10) Obesity (BMI 30-39.9) Status: Chronic Assessment & Plan: No acute management issues, but contributes to risk from COVID19 (11) Elevated d-dimer Status: Acute Assessment & Plan: Originally on treatment dose enoxaparin for some time, stopped due to anemia. D-dimer was mildly elevated and recheck normal, will not resume anticoagulation. (12) Anemia Status: Acute Assessment & Plan: Normal on admit, trended down since then, now has been below 7 a few times and required 2 units PRBCs, third ordered today. Was on treatment dose enoxaparin for some time, this has been discontinued. Check stool occult blood. 2/2 hemoccult positive, but hemoglobin stable today after transfusion, if stays stable will monitor and follow up later as I suspect this is related to the anticoagulation and critical illness, no sign of acute current bleed. (13) DVT prophylaxis Status: Acute Assessment & Plan: Anticoagulation held due to severe anemia. Clinical Quality Measures DVT/VTE Risk/Contraindication: Risk Factor Score Per Nursin RFS Level Per Nursing on Admit: 3=High LAURYN CHANDRA MD Nov 23, 2020 09:05
--- NOTE | 2020-11-23 10:52 | Occupational Ther Daily Note ---
OT Current Status-Daily Note Subjective Pt lying in bed with eyes closed. Pt agrees to therapy though states move me and wake me when your finished, I don't like to hurt. Mental Status/Objective Patient Orientation: Person, Place, Time, Situation Attachments: [place] Catheter, IV, Oxygen ADL-Treatment Therapy Code Descriptions/Definitions Functional [place] Measure: 0=Not Assessed/NA 4=Minimal Assistance 1=Total Assistance 5=Supervision or Setup 2=Maximal Assistance 6=Modified [place] 3=Moderate Assistance 7=Complete IndependenceSCALE: Activities may be completed with or without assistive devices. 8-Xlypeivefp-pilxefr completes the activity by him/herself with no assistance from a helper. 5-Set-up or Clean-up Assistance-helper sets up or cleans up; patient completes activity. [place] assists only prior to or following the activity. 4-Supervision or Touching Assistance-helper provides verbal cues and/or touching/steadying and/or contact guard assistance as patient completes activity. Assistance may be provided throughout the activity or intermittently. 3-Partial/Moderate Assistance-helper does LESS THAN HALF the effort. [place] lifts, holds or supports trunk or limbs, but provides less than half the effort. 2-Substantial/Maximal Assistance-helper does MORE THAN HALF the effort. [place] lifts or holds trunk or limbs and provides more than half the effort. 1-Jbzgtpvde-ovsaxw does ALL the effort. Patient does none of the effort to complete the activity. Or, the assistance of 2 or more helpers is required for the patient to complete the activity. If activity was not attempted, code reason: 7-Patient Refused. 9-Not Applicable-not attempted and the patient did not perform the activity before the current illness, exacerbation or injury. 10-Not Attempted due to Environmental Limitations-(lack of equipment, weather restraints, etc.). 88-Not Attempted due to Medical Conditions or Safety Concerns. Other Treatment Pt would not assist with rolling to place david sling, PT/OT completed. Pt would place B UE onto stomach but could not move them close enough to grasp hands. Pt's hand edema has increased again. Pt able to move hands, wrists, forearms and elbows. Does not demonstrate enough strength to raised entire B UE's. Pt dependent with bed mobility. Transferred with david sling to recliner. After session, nrsg aware of pt's position. Nrsg in room with pt. Pt made comfortable. OT Shelter Goals Informatics Manager Goals Time Frame: Dec 17, 2020 Eating (QC): 5 Oral Hygiene (QC): 5 Toileting Hygiene (QC): 3 Shower/Bathe Self (QC): 3 Upper Body Dressing (QC): 3 Lower Body Dressing (QC): 3 On/Off Footwear (QC): 3 Additional Goals: 1-Demonstrate ADL Tasks, 2-Verbalize Understanding, 3-ImproveStrength/[place] 1=Demonstrate adherence to instructed precautions during ADL tasks. 2=Patient will verbalize/demonstrate understanding of assistive devices/modifications for ADL. 3=Patient will improve strength/tolerance for activity to enable patient to perform ADL's. OT Education/Plan Problem List/Assessment Assessment: Decreased Activ Tolerance, Decreased Safety Aware, Decreased UE Strength, Dependent Transfers, Impaired Bed Mobility, Impaired Cognition, Impaired Coordination, Impaired Self-Care Skills, Restricted Funct UE ROM Discharge Recommendations Plan/Recommendations: Continue POC Treatment Plan/Plan of Care Patient would benefit from OT for education, treatment and training to promote independence in ADL's, mobility, safety and/or upper extremity function for ADL's. Plan of Care: ADL Retraining, Functional Mobility, UE Funct Exercise/Act Treatment Duration: Dec 17, 2020 Frequency: 5 times per week Estimated Hrs Per Day: .25 hour per day Rehab Potential: Guarded Time/GCodes Start Time: 10:15 Stop Time: 10:38 Total Time Billed (hr/min): 23 Billed Treatment Time 1 visit-FA 2 (23 min) ANNAMARIA NUNES Nov 23, 2020 10:52
--- NOTE | 2020-11-23 11:34 | Physical Therapy Daily Note ---
PT Daily Note-Current Subjective [place] with OT due to patient requires the skill of 2 therapist due to medical complexity. Patient states,"I'm not going to move. I'm going to sleep and let me know when you are done." Mental Status Patient Orientation: Person, Time, Situation Attachments: Oxygen, [place] Catheter, IV Transfers SCALE: Activities may be completed with or without assistive devices. 2-Ksyrluwfrr-hcrsowy completes the activity by him/herself with no assistance from a helper. 5-Set-up or Clean-up Assistance-helper sets up or cleans up; patient completes activity. [place] assists only prior to or following the activity. 4-Supervision or Touching Assistance-helper provides verbal cues and/or touching/steadying and/or contact guard assistance as patient completes activity. Assistance may be provided throughout the activity or intermittently. 3-Partial/Moderate Assistance-helper does LESS THAN HALF the effort. [place] lifts, holds or supports trunk or limbs, but provides less than half the effort. 2-Substantial/Maximal Assistance-helper does MORE THAN HALF the effort. [place] lifts or holds trunk or limbs and provides more than half the effort. 1-Yodojtxdi-cpdwpn does ALL the effort. Patient does none of the effort to complete the activity. Or, the assistance of 2 or more helpers is required for the patient to complete the activity. If activity was not attempted, code reason: 7-Patient Refused. 9-Not Applicable-not attempted and the patient did not perform the activity before the current illness, exacerbation or injury. 10-Not Attempted due to Environmental Limitations-(lack of equipment, weather restraints, etc.). 88-Not Attempted due to Medical Conditions or Safety Concerns. Roll Left & Right (QC): 1 (x 2) Chair/Uzr-wt-Cojcu Xfer(QC): 1 (x 2 Donte transfer) Exercises Supine Ex: Ankle pumps, Heel Slides, Straight leg raise, Hip abd/add Supine Reps: 12 (PROM/patient did not assist on this date) Assessment Patient is up in recliner in upright position. Patient educated on importance of actively participating with therapy to improve current LOF. Patient continues to move minimally and requires much encouragement. PT to increase activity as tolerated by patient. PT Short Term Goals Short Term Goals Time Frame: Dec 04, 2020 Roll Left & Right: 2 Sit to lyin Lying to sitting on side of be: 2 Sit to stand: 1 Chair/nqh-yi-rhefx transfer: 1 PT Social Professionals Goals Longterm Goals PT Longterm Goals Time Frame: Jan 01, 2021 Roll Left & Right (QC): 4 Sit to Lying (QC): 4 Lying-Sitting on Side/Bed(QC): 4 Sit to Stand (QC): 4 Chair/Rdn-mv-Quprl Xfer(QC): 4 Toilet Transfer (QC): 4 Does the Patient Walk: Yes Walk 10 feet (QC): 3 Walk 50ft with 2 Turns (QC): 3 PT Plan Treatment/Plan Treatment Plan: Continue Plan of Care Treatment Plan: Bed Mobility, Education, Functional Activity [place], Functional Strength, Gait, Safety, Therapeutic Exercise, Transfers Treatment Duration: Jan 01, 2021 Frequency: 5 times per week Estimated Hrs Per Day: .25 hour per day (to .5 ) Patient and/or Family Agrees t: Yes Time/GCodes Time In: 1015 Time Out: 1038 Total Billed Treatment Time: 23 Total Billed Treatment 1 visit FA x 2 23 min ROSS DIAZ PT Nov 23, 2020 11:34
[2020-11-23 12:00] VITALS: BP 98/51
[2020-11-23] MEDS: 1/2 NS IV SOLUTION 1,000 ML IV SCH ×2 (12:20→20:35)
--- NOTE | 2020-11-23 15:28 | NUR ---
CM/SS: Visited with pt as per her plan for discharge related to home or detention placement. Plan: Undetermined at this time. Pt previously lived at home with one of her sons. Summary: Pt is from home, however is requiring david lift equipment to assist staff in lifting her at this time. Pt is also unable to feed herself. Talk with pt about next steps - she would like to go home, but knows that may not be possible. Talk with pt about a facility. She indicates whatever needs to be done. She is not for sure. She does give this worker permission to talk with her family. This worker talks with family and follow up with pt. Pt is ok with that at this time.
--- NOTE | 2020-11-23 15:35 | NUR ---
CM/SS: Telephone call to Nidhi Stern - daughter of pt. [phone] - Discuss discharge plan with her as to next steps. She is given information as to pts current status and her requiring a david equipment to lift her. She indicates pt does live with her son however he will be unable to care for her at this time if she is requiring that much assistance. She also reports that pt does not like to be alone and may have difficulty at a facility due to no visitors. She is given options of [facility] and a list will be left with DULCE Hernandes to give to her as she is to visit this evening. She is hoping to surprise pt. She is also encouraged to talk with pt as to discharge and next steps. She reports she will and get back with the worker. She does have this workers cell phone number.
[2020-11-23 16:54] VITALS: BP 116/58
[2020-11-23] MEDS: FOLIC ACID 1 MG TAB PO SCH (17:21)
[2020-11-23] MEDS: VITAMIN D3 10 MCG (400 UNITS) TABLET PO SCH (17:22)
[2020-11-23 20:23] VITALS: BP 112/64
[2020-11-23] MEDS: HYDROcodone/APAP 5 MG/325 MG (LORTAB) TAB PO PRN (20:31)
[2020-11-23] MEDS: FENOFIBRATE 134 MG (LOFIBRA) CAPSULE PO SCH (20:32)
[2020-11-24] MEDS: RT-ALBUTEROL INHALER HFA (VENTOLIN HFA) 18 GM IH SCH ×7 (00:26→21:26)
[2020-11-24 00:27] VITALS: BP 131/62
[2020-11-24 04:33] VITALS: BP 123/61
[2020-11-24 06:15] LABS: HEMOGLOBIN 7.2 g/dL (11.5-16.0); MEAN PLATELET VOLUME 12.1 fL (9.0-12.2); WHITE BLOOD COUNT 11.3 10^3/uL (4.3-11.0)
[2020-11-24 06:22] LABS: CHLORIDE 110 MMOL/L (98-107); SODIUM 139 MMOL/L (135-145)
[2020-11-24 06:23] LABS: CALCIUM 7.7 MG/DL (8.5-10.1)
[2020-11-24 06:24] LABS: GLUCOSE 104 MG/DL (70-105)
[2020-11-24 06:25] LABS: CARBON DIOXIDE 21 MMOL/L (21-32)
[2020-11-24 06:28] LABS: CREATININE SERUM 0.64 MG/DL (0.60-1.30); GFR ESTIMATED > 60
[2020-11-24 06:29] LABS: BUN/CREATININE RATIO 34
[2020-11-24 06:30] LABS: MAGNESIUM 1.8 MG/DL (1.6-2.4)
[2020-11-24] MEDS: POTASSIUM CL 10MEQ/50ML IVPB 50 ML IV SCH (06:37)
[2020-11-24] MEDS: inSUlin ASPART (NovoLOG) 1 UNIT/0.01 ML (CHARGE PER UNIT) SC SCH ×4 (06:38→21:24)
[2020-11-24] MEDS: MAGNESIUM 1 GM/100 ML IVPB 100 ML IV SCH (06:38)
[2020-11-24] MEDS: KCL 20 MEQ TAB (K-DUR) PO SCH (06:38)
[2020-11-24] MEDS: CATHETER FLUSH 10 ML SYR IV SCH ×3 (07:01→21:27)
[2020-11-24] MEDS: GABAPENTIN 300 MG (NEURONTIN) CAP PO SCH ×3 (07:01→21:26)
[2020-11-24 08:00] VITALS: BP 110/63
[2020-11-24] MEDS: OMEGA 3 (FISH OIL) 1000 MG CAP PO SCH ×3 (08:32→17:57)
[2020-11-24] MEDS: PANTOPRAZOLE 40 MG (PROTONIX) VIAL IV SCH (08:32)
[2020-11-24] MEDS: ASPIRIN 81 MG CHEW (CHILDREN'S ASA) PO SCH (08:32)
[2020-11-24] MEDS: FERROUS SULF 325 MG (IRON) TAB PO SCH ×3 (08:32→17:57)
[2020-11-24] MEDS: amLODIPine 5 MG (NORVASC) TAB PO SCH (08:33)
[2020-11-24] MEDS: lisINopril 20 MG (PRINIVIL) TABLET PO SCH (08:33)
[2020-11-24] MEDS: meTOprolol TARTRATE 25 MG (LOPRESSOR) TABLET PO SCH ×2 (08:33→21:24)
[2020-11-24] MEDS: MICONAZOLE 2% POWDER (DESENEX AF) 90 GM TOP SCH ×2 (08:34→21:26)
--- NOTE | 2020-11-24 09:22 | NUR ---
CM/SS: Telephone call from daughter - Nidhi - she reports she talked with pt as to placement options. Both pt and family would like a referral to go to [facility], as they have a family member that is a resident there. Also if denied at [facility] they would like for pt to be referred to [facility]. She would also like to have Durable Power of Assault Amphibious Vehicle Officer for health care paperwork discussed with pt. This worker will follow up. Referral to [facility] moira - lorie Ibanez.
--- NOTE | 2020-11-24 10:45 | Physical Therapy Daily Note ---
PT Daily Note-Current Subjective Patient in bed pre tx, initially refuses therapy because she says she can't move due to arm swelling. Agrees to participate with encouragement. Patient voices no complaints of pain but is very concerned about pain during the transfers and when she is sitting in the recliner. An air cushion will be added to help with this. Appearance Patient in recliner post tx with nurse call, phone, tray, all needs met, OT in room to work with patient. Mental Status Patient Orientation: Person, Place, Situation Attachments: Oxygen, Gonzales Catheter, IV Transfers SCALE: Activities may be completed with or without assistive devices. 6-Xthizfkswd-ucvzlxj completes the activity by him/herself with no assistance from a helper. 5-Set-up or Clean-up Assistance-helper sets up or cleans up; patient completes activity. [place] assists only prior to or following the activity. 4-Supervision or Touching Assistance-helper provides verbal cues and/or touching/steadying and/or contact guard assistance as patient completes activity. Assistance may be provided throughout the activity or intermittently. 3-Partial/Moderate Assistance-helper does LESS THAN HALF the effort. [place] lifts, holds or supports trunk or limbs, but provides less than half the effort. 2-Substantial/Maximal Assistance-helper does MORE THAN HALF the effort. [place] lifts or holds trunk or limbs and provides more than half the effort. 6-Ndgaxdeib-szpnnc does ALL the effort. Patient does none of the effort to complete the activity. Or, the assistance of 2 or more helpers is required for the patient to complete the activity. If activity was not attempted, code reason: 7-Patient Refused. 9-Not Applicable-not attempted and the patient did not perform the activity before the current illness, exacerbation or injury. 10-Not Attempted due to Environmental Limitations-(lack of equipment, weather restraints, etc.). 88-Not Attempted due to Medical Conditions or Safety Concerns. Roll Left & Right (QC): 1 david transfer. Patient is rolled from side to side to get david sling under her, it is dependent. Treatments transfer Assessment Current Status: Poor Progress Patient doesn't assist with rolling or the transfer. Patient states she cant move due to BUE swelling, she does have a lot of swelling in her arms. Patient has poor motivation. PT Short Term Goals Short Term Goals Time Frame: Dec 04, 2020 Roll Left & Right: 2 Sit to lyin Lying to sitting on side of be: 2 Sit to stand: 1 Chair/nmu-tm-hpmyv transfer: 1 PT Medicaid Service Coordinator Goals Medicaid Service Coordinator Goals PT Medicaid Service Coordinator Goals Time Frame: Jan 01, 2021 Roll Left & Right (QC): 4 Sit to Lying (QC): 4 Lying-Sitting on Side/Bed(QC): 4 Sit to Stand (QC): 4 Chair/Tyf-ly-Uadvz Xfer(QC): 4 Toilet Transfer (QC): 4 Does the Patient Walk: Yes Walk 10 feet (QC): 3 Walk 50ft with 2 Turns (QC): 3 PT Plan Problem List Problem List: Activity Tolerance, Functional Strength, Safety, Balance, Gait, Transfer, Bed Mobility, ROM Treatment/Plan Treatment Plan: Continue Plan of Care Treatment Plan: Bed Mobility, Education, Functional Activity Earnestine, Functional Strength, Gait, Safety, Therapeutic Exercise, Transfers Treatment Duration: Jan 01, 2021 Frequency: 5 times per week Estimated Hrs Per Day: .25 hour per day (to .5 ) Patient and/or Family Agrees t: Yes Safety Risks/Education Patient Education: Transfer Techniques, Correct Positioning, Safety Issues Teaching Recipient: Patient Teaching Methods: Demonstration, Discussion Response to Teaching: Reinforcement Needed Time/GCodes Time In: 0818 Time Out: 1031 Total Billed Treatment Time: 13 Total Billed Treatment 1 visit FA Fred' DELVIS VITALE PT Nov 24, 2020 10:45
--- NOTE | 2020-11-24 10:58 | Occupational Ther Daily Note ---
OT Current Status-Daily Note Subjective Pt alert, lying in bed. Pt stated that she couldn't move to chair because her arms didn't move. Then she stated that she did not want her butt to hurt and she hurt to much to move. Pt then stated that she wanted to work on her arms to reduce swelling and increase movement. Pt finally agrees to therapy. Mental Status/Objective Patient Orientation: Person, Place, Time, Situation Attachments: Gonzales Catheter, IV, Oxygen ADL-Treatment Therapy Code Descriptions/Definitions Functional [place] Measure: 0=Not Assessed/NA 4=Minimal Assistance 1=Total Assistance 5=Supervision or Setup 2=Maximal Assistance 6=Modified [place] 3=Moderate Assistance 7=Complete IndependenceSCALE: Activities may be completed with or without assistive devices. 9-Uejigeewhc-jmwlegm completes the activity by him/herself with no assistance from a helper. 5-Set-up or Clean-up Assistance-helper sets up or cleans up; patient completes activity. [place] assists only prior to or following the activity. 4-Supervision or Touching Assistance-helper provides verbal cues and/or touching/steadying and/or contact guard assistance as patient completes activity. Assistance may be provided throughout the activity or intermittently. 3-Partial/Moderate Assistance-helper does LESS THAN HALF the effort. [place] lifts, holds or supports trunk or limbs, but provides less than half the effort. 2-Substantial/Maximal Assistance-helper does MORE THAN HALF the effort. [place] lifts or holds trunk or limbs and provides more than half the effort. 3-Eltscglxa-cwdkuf does ALL the effort. Patient does none of the effort to complete the activity. Or, the assistance of 2 or more helpers is required for the patient to complete the activity. If activity was not attempted, code reason: 7-Patient Refused. 9-Not Applicable-not attempted and the patient did not perform the activity before the current illness, exacerbation or injury. 10-Not Attempted due to Environmental Limitations-(lack of equipment, weather restraints, etc.). 88-Not Attempted due to Medical Conditions or Safety Concerns. Other Treatment PT and OT, Max A x2 to roll side to side to place donte sling. Donte to transfer from bed to recliner. Waffle cushion and pillow placed in chair for comfort. APROM for B shldr flexion. Pt able to complete shldr shrugs though fatigues quickly. AAROM initially for elbow flexion then completed AROM. AROM for supination/pronation, wrist flexion/extension and finger flexion/extension, 10 reps each. Light resistance therapy sponge given to pt to work on AROM, strength and decrease hand edema. Pt stated that she would work with sponge in room. After session, pt sitting in recliner with call light/phone in reach. All needs met in room. OT Hide Tanner Goals Hide Tanner Goals Time Frame: Dec 17, 2020 Eating (QC): 5 Oral Hygiene (QC): 5 Toileting Hygiene (QC): 3 Shower/Bathe Self (QC): 3 Upper Body Dressing (QC): 3 Lower Body Dressing (QC): 3 On/Off Footwear (QC): 3 Additional Goals: 1-Demonstrate ADL Tasks, 2-Verbalize Understanding, 3- ImproveStrength/Earnestine 1=Demonstrate adherence to instructed precautions during ADL tasks. 2=Patient will verbalize/demonstrate understanding of assistive devices/modifications for ADL. 3=Patient will improve strength/tolerance for activity to enable patient to perform ADL's. OT Education/Plan Problem List/Assessment Assessment: Decreased Activ Tolerance, Decreased Safety Aware, Decreased UE Strength, Dependent Transfers, Edema, Impaired Bed Mobility, Impaired Self-Care Skills, Restricted Funct UE ROM Discharge Recommendations Plan/Recommendations: Continue POC Treatment Plan/Plan of Care Patient would benefit from OT for education, treatment and training to promote independence in ADL's, mobility, safety and/or upper extremity function for ADL's. Plan of Care: ADL Retraining, Functional Mobility, UE Funct Exercise/Act Treatment Duration: Dec 17, 2020 Frequency: 5 times per week Estimated Hrs Per Day: .25 hour per day Rehab Potential: Guarded Time/GCodes Start Time: 10:15 Stop Time: 10:45 Total Time Billed (hr/min): 30 Billed Treatment Time 1 visit-FA 1 (15 min) EX 1 (15 min) ANNAMARIA NUNES Nov 24, 2020 10:58
[2020-11-24 12:00] VITALS: BP 104/55
--- NOTE | 2020-11-24 13:14 | NUR ---
CM/SS: Visited with pt as per Durable Power of Bending Press Operator for Health Care. Pt is able to verbalize what her wishes are at this time. Pt would like her son Sahil Quinones as first agent and Rosalie Fermin as her second agent. Pt spilled her water and this worker assisted in the clean up of that. Pt is aware that a referral has been made to [facility] and they have accepted her pending insurance.
--- NOTE | 2020-11-24 13:35 | NUR ---
CM/SS: DURABLE POWER OF CUTLET MAKER PORK FOR HEALTHCARE - PAPERWORK COMPLETED - pt was able to sign with an "X" and if was witnessed by this worker and Clinical Assessment Manager Sydnie Fuentes LMSW. Copies to be placed on the chart.
--- NOTE | 2020-11-24 13:49 | Progress Note ---
Subjective Subjective/Events-last exam Afebrile, feeling very weak still. Objective Exam Last Set of Vital Signs Vital Signs Date Time Temp Pulse Resp B/P (MAP) Pulse Ox O2 Delivery O2 Flow Rate FiO2 11/24/20 12:00 35.6 88 18 104/55 (71) 96 Nasal Cannula 3.00 11/22/20 10:54 32 Capillary Refill : Less Than 3 SecondsLess Than 3 Seconds I&O Intake and Output 11/24/20 00:00 Intake Total 2360 ml Output Total 1125 ml Balance 1235 ml Intake Oral 760 ml IV Total 1600 ml Output Urine Total 1125 ml # Bowel Movements 2 General: Alert, No Acute Distress Lungs: Clear to Auscultation Heart: Regular Rate Extremities: Other (2+ pitting edema) Results/Procedures Lab Laboratory Tests 11/23/20 16:53: Glucometer 209H 11/23/20 20:12: Glucometer 184H 11/24/20 06:00: White Blood Count 11.3H, Red Blood Count 2.54L, Hemoglobin 7.2L, Hematocrit 24L, Mean Corpuscular Volume 95, Mean Corpuscular Hemoglobin 28, Mean Corpuscular Hemoglobin Concent 30L, Red Cell Distribution Width 19.8H, Platelet Count 261, Mean Platelet Volume 12.1, Sodium Level 139, Potassium Level 4.0, Chloride Level 110H, Carbon Dioxide Level 21, Anion Gap 8, Blood Urea Nitrogen 22H, Creatinine 0.64, Estimat Glomerular Filtration Rate > 60, BUN/Creatinine Ratio 34, Glucose Level 104, Calcium Level 7.7L, Magnesium Level 1.8 11/24/20 11:44: Glucometer 154H Microbiology 11/16/20 C. difficile GD Antigen & Toxins - Final, Complete 11/10/20 Gram Stain - Final, Complete 11/10/20 Sputum Culture - Final, Complete Staphylococcus aureus Enterococcus faecalis 11/10/20 Urine Culture - Final, Complete Klebsiella pneumoniae YEAST 11/10/20 Blood Culture - Final, Complete No growth Assessment/Plan Assessment/Plan (1) COVID-19 Status: Acute Assessment & Plan: Completed dexamethasone and convalescent plasma, but require d bipap and then mechanical ventilation for prolonged period, able to be extubated and weaned back, now on 3 lpm supplemental oxygen. (2) Pneumonia Status: Acute Assessment & Plan: Due to COVID19 10/28: Due to worsening respiratory failure started on Zosyn and Zyvox 11/22: no longer on antibiotics, afebrile, no significant leukocytosis (3) Acute respiratory failure with hypoxia Status: Acute Assessment & Plan: Present on admission, secondary to above. (4) Diabetes mellitus Status: Chronic Assessment & Plan: Continue home gabapentin, has had significant hyperglycemia throughout stay, levemir increased up to 52 units twice daily and sliding scale C, however recently has not needed sliding scale and blood sugar on lower side, monitor closely. 11/23- blood sugars continue to be on lower side, decrease levemir to 30 units BID . 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 Qualifiers: Qualified Codes: I25.10 - Atherosclerotic heart disease of [place] coronary artery without angina pectoris (6) Breast cancer Status: Chronic Permanent Comment: Left mastectomy done in 2014 Last Edited By: Lauryn Chandra on Oct 25, 2020 15:38 Assessment & Plan: Home letrozole was ordered originally but non-formulary, and eventually cancelled, uncertain if this was due to not being brought in from home or other reason. Qualifiers: (7) CKD (chronic kidney disease) Status: Chronic Assessment & Plan: Stable, continue to monitor (8) Hyperlipidemia Status: Chronic Assessment & Plan: Continue home statin (9) HTN (hypertension) Status: Chronic Assessment & Plan: Continued home medications, but lisinopril previously held for hyperkalemia, will resume Qualifiers: Qualified Codes: I10 - Essential (primary) hypertension (10) Obesity (BMI 30-39.9) Status: Chronic Assessment & Plan: No acute management issues, but contributes to risk from COVID19 (11) Elevated d-dimer Status: Acute Assessment & Plan: Originally on treatment dose enoxaparin for some time, stopped due to anemia. D-dimer was mildly elevated and recheck normal, will not resume anticoagulation. (12) Anemia Status: Acute Assessment & Plan: Normal on admit, trended down since then, now has been below 7 a few times and required 2 units PRBCs, third ordered today. Was on treatment dose enoxaparin for some time, this has been discontinued. Check stool occult blood. 2/2 hemoccult positive, but hemoglobin stable today after transfusion, if stays stable will monitor and follow up later as I suspect this is related to the anticoagulation and critical illness, no sign of acute current bleed. (13) Pitting edema Status: Acute Assessment & Plan: 2/3 resume home lasix (14) DVT prophylaxis Status: Acute Assessment & Plan: Anticoagulation held due to severe anemia. Clinical Quality Measures DVT/VTE Risk/Contraindication: Risk Factor Score Per Nursin RFS Level Per Nursing on Admit: 3=High LAURYN CHANDRA MD Nov 24, 2020 13:49
[2020-11-24] MEDS: VITAMIN D3 10 MCG (400 UNITS) TABLET PO SCH (14:24)
[2020-11-24] MEDS: FUROSEMIDE 40 MG (LASIX) TAB PO SCH (14:24)
[2020-11-24] MEDS: FOLIC ACID 1 MG TAB PO SCH (14:24)
[2020-11-24] MEDS: 1/2 NS IV SOLUTION 1,000 ML IV SCH (16:23)
[2020-11-24 16:32] VITALS: BP 111/53
[2020-11-24 20:38] VITALS: BP 110/53
[2020-11-24] MEDS: FENOFIBRATE 134 MG (LOFIBRA) CAPSULE PO SCH (21:24)
[2020-11-25] VITALS (10 sets, daily range): BP systolic 104–120; BP diastolic 53–59
[2020-11-25] MEDS: RT-ALBUTEROL INHALER HFA (VENTOLIN HFA) 18 GM IH SCH ×6 (01:38→21:28)
[2020-11-25 06:20] LABS: MEAN PLATELET VOLUME 11.9 fL (9.0-12.2); WHITE BLOOD COUNT 9.4 10^3/uL (4.3-11.0)
[2020-11-25] MEDS: CATHETER FLUSH 10 ML SYR IV SCH ×3 (06:21→21:45)
[2020-11-25] MEDS: GABAPENTIN 300 MG (NEURONTIN) CAP PO SCH ×3 (06:22→20:01)
[2020-11-25] MEDS: inSUlin ASPART (NovoLOG) 1 UNIT/0.01 ML (CHARGE PER UNIT) SC SCH ×4 (06:29→21:44)
[2020-11-25 06:30] LABS: HEMOGLOBIN 6.7 g/dL (11.5-16.0)
[2020-11-25 06:41] LABS: CHLORIDE 109 MMOL/L (98-107); POTASSIUM 3.9 MMOL/L (3.6-5.0); SODIUM 139 MMOL/L (135-145)
[2020-11-25 06:42] LABS: CALCIUM 7.7 MG/DL (8.5-10.1)
[2020-11-25 06:43] LABS: GLUCOSE 93 MG/DL (70-105); TOTAL PROTEIN 4.8 GM/DL (6.4-8.2)
[2020-11-25 06:44] LABS: CARBON DIOXIDE 21 MMOL/L (21-32)
[2020-11-25 06:45] LABS: BILIRUBIN,TOTAL 0.6 MG/DL (0.1-1.0)
[2020-11-25 06:47] LABS: ALKALINE PHOSPHATASE 39 U/L (40-136); CREATININE SERUM 0.58 MG/DL (0.60-1.30); GFR ESTIMATED > 60
[2020-11-25 06:48] LABS: BUN/CREATININE RATIO 34
[2020-11-25 06:50] LABS: ALANINE AMINOTRANSFERASE 24 U/L (0-55); MAGNESIUM 1.6 MG/DL (1.6-2.4)
[2020-11-25] MEDS: KCL 20 MEQ TAB (K-DUR) PO SCH (06:51)
[2020-11-25] MEDS: POTASSIUM CL 10MEQ/50ML IVPB 50 ML IV SCH (06:51)
[2020-11-25] MEDS ORDERED: NS IV 500 ML 500 ML IV SCH (07:00)
[2020-11-25] MEDS: MAGNESIUM 1 GM/100 ML IVPB 100 ML IV SCH ×3 (07:05→08:08)
--- NOTE | 2020-11-25 07:50 | NUR ---
Messaged Dr. Chandra at this time and informed her that patients blood sugar was 93 this AM. Requesting to hold the scheduled [address] Chandra states she will decrease patients Levemir dose to 20 units at this time.
[2020-11-25] MEDS: PANTOPRAZOLE 40 MG (PROTONIX) VIAL IV SCH (08:07)
[2020-11-25] MEDS: meTOprolol TARTRATE 25 MG (LOPRESSOR) TABLET PO SCH ×2 (08:07→20:02)
[2020-11-25] MEDS: lisINopril 20 MG (PRINIVIL) TABLET PO SCH (08:07)
[2020-11-25] MEDS: OMEGA 3 (FISH OIL) 1000 MG CAP PO SCH ×3 (08:07→18:49)
[2020-11-25] MEDS: ASPIRIN 81 MG CHEW (CHILDREN'S ASA) PO SCH (08:07)
[2020-11-25] MEDS: amLODIPine 5 MG (NORVASC) TAB PO SCH (08:07)
[2020-11-25] MEDS: FUROSEMIDE 40 MG (LASIX) TAB PO SCH (08:07)
[2020-11-25] MEDS: FERROUS SULF 325 MG (IRON) TAB PO SCH ×3 (08:07→18:49)
[2020-11-25] MEDS: MICONAZOLE 2% POWDER (DESENEX AF) 90 GM TOP SCH ×2 (08:09→20:04)
--- NOTE | 2020-11-25 09:50 | NUR ---
After cleaning patient from large bowel movement new allevyns applied to pressure wounds at this time on coccyx/sacrum and right lower buttock. Pressure ulcers range from a stage 2 to a stage 3. Turned patient on to right side at this time with waffle cushion under bottom and back. After 2-3 minutes patient states she wants to lay on her bottom and wants the pillows and waffle cushions removed because she is too uncomfortable. This RN offered patient a pain pill at this time but patient refused states she just wants to turn back. Stressed to the patient the importance of turning and staying off her already sore bottom. Requested patient to attempt to stay on right side for at least 15 minutes and then we could turn to other side. Patient states no, she doesn't want to wait. states "I want the pillows removed now." This RN removed pillows and waffle cushion behind patients back just leaving the waffle cushion under bottom. Patient states that is minimally better. Will contact daughter to see if she can motivate her mother to turn as other nurses reported that this has helped in the past.
--- NOTE | 2020-11-25 10:22 | Occupational Ther Daily Note ---
OT Current Status-Daily Note Subjective Pt lying in bed, alert. Pt states what do you want. PT/OT educated pt on benefits of therapy. Pt agrees to therapy. Pt states that she has been attempting to move B UE but can't. Decreased edema in B hands and LE's noted. Mental Status/Objective Patient Orientation: Person, Place, Time, Situation Attachments: Gonzales Catheter, IV, Oxygen ADL-Treatment Therapy Code Descriptions/Definitions Functional [place] Measure: 0=Not Assessed/NA 4=Minimal Assistance 1=Total Assistance 5=Supervision or Setup 2=Maximal Assistance 6=Modified [place] 3=Moderate Assistance 7=Complete IndependenceSCALE: Activities may be completed with or without assistive devices. 4-Arotuygsnt-amxisse completes the activity by him/herself with no assistance from a helper. 5-Set-up or Clean-up Assistance-helper sets up or cleans up; patient completes activity. [place] assists only prior to or following the activity. 4-Supervision or Touching Assistance-helper provides verbal cues and/or touching/steadying and/or contact guard assistance as patient completes activity. Assistance may be provided throughout the activity or intermittently. 3-Partial/Moderate Assistance-helper does LESS THAN HALF the effort. [place] lifts, holds or supports trunk or limbs, but provides less than half the effort. 2-Substantial/Maximal Assistance-helper does MORE THAN HALF the effort. [place] lifts or holds trunk or limbs and provides more than half the effort. 1-Cfxxlgafe-alfjsa does ALL the effort. Patient does none of the effort to complete the activity. Or, the assistance of 2 or more helpers is required for the patient to complete the activity. If activity was not attempted, code reason: 7-Patient Refused. 9-Not Applicable-not attempted and the patient did not perform the activity before the current illness, exacerbation or injury. 10-Not Attempted due to Environmental Limitations-(lack of equipment, weather restraints, etc.). 88-Not Attempted due to Medical Conditions or Safety Concerns. Other Treatment Pt demonstrates increased AROM with B shldr flexion exercise, completed 10 APROM. Pt able to complete shldr shrugs, 15 reps. Bicep flex/ext, wrist flex/ ext, finger flex/ext and supination/pronation 10x's independently. Dependent for bed mobility. After therapy, pt sitting up in bed with call light/phone in reach. All needs met in room. OT Health Service Coordinator Goals Health Service Coordinator Goals Time Frame: Dec 17, 2020 Eating (QC): 5 Oral Hygiene (QC): 5 Toileting Hygiene (QC): 3 Shower/Bathe Self (QC): 3 Upper Body Dressing (QC): 3 Lower Body Dressing (QC): 3 On/Off Footwear (QC): 3 Additional Goals: 1-Demonstrate ADL Tasks, 2-Verbalize Understanding, 3- ImproveStrength/Earn[place] 1=Demonstrate adherence to instructed precautions during ADL tasks. 2=Patient will verbalize/demonstrate understanding of assistive devices/modifications for ADL. 3=Patient will improve strength/tolerance for activity to enable patient to perform ADL's. OT Education/Plan Problem List/Assessment Assessment: Decreased Activ Tolerance, Decreased UE Strength, Dependent Trans fers, Impaired Bed Mobility, Impaired Coordination, Impaired Funct Balance, Impaired Self-Care Skills, Restricted Funct UE ROM Discharge Recommendations Plan/Recommendations: Continue POC Treatment Plan/Plan of Care Patient would benefit from OT for education, treatment and training to promote independence in ADL's, mobility, safety and/or upper extremity function for ADL's. Plan of Care: ADL Retraining, Functional Mobility, UE Funct Exercise/Act Treatment Duration: Dec 17, 2020 Frequency: 5 times per week Estimated Hrs Per Day: .25 hour per day Rehab Potential: Guarded Time/GCodes Start Time: 10:06 Stop Time: 10:20 Total Time Billed (hr/min): 14 Billed Treatment Time 1 visit-EX 1 (14 min) ANNAMARIA NUNES Nov 25, 2020 10:22
--- NOTE | 2020-11-25 10:46 | NUR ---
Called and spoke with Angel (patients daughter) at this time and requested her to contact the patient to assist with motivating her to turn off of her bottom. Daughter states she knows this has been an issue and that she will call and speak with her.
--- NOTE | 2020-11-25 11:37 | Physical Therapy Daily Note ---
PT Daily Note-Current Subjective Patient refused OOB activity on this date. Transfers SCALE: Activities may be completed with or without assistive devices. 2-Vvtprjcqnx-fgspndy completes the activity by him/herself with no assistance from a helper. 5-Set-up or Clean-up Assistance-helper sets up or cleans up; patient completes activity. [place] assists only prior to or following the activity. 4-Supervision or Touching Assistance-helper provides verbal cues and/or touching/steadying and/or contact guard assistance as patient completes activity. Assistance may be provided throughout the activity or intermittently. 3-Partial/Moderate Assistance-helper does LESS THAN HALF the effort. [place] lifts, holds or supports trunk or limbs, but provides less than half the effort. 2-Substantial/Maximal Assistance-helper does MORE THAN HALF the effort. [place] lifts or holds trunk or limbs and provides more than half the effort. 4-Doprudttc-dvmnxp does ALL the effort. Patient does none of the effort to complete the activity. Or, the assistance of 2 or more helpers is required for the patient to complete the activity. If activity was not attempted, code reason: 7-Patient Refused. 9-Not Applicable-not attempted and the patient did not perform the activity before the current illness, exacerbation or injury. 10-Not Attempted due to Environmental Limitations-(lack of equipment, weather restraints, etc.). 88-Not Attempted due to Medical Conditions or Safety Concerns. Roll Left & Right (QC): 1 (x 2 in Trendelenburg) Exercises Supine Ex: Ankle pumps, Heel Slides, Straight leg raise, Hip abd/add Supine Reps: 12 (AAROM initially, then PROM due to patient fatigue) Assessment PT/OT cotreat. Patient tolerates minimal activity on this date. Bed in chair position upon completion of therapy. PT Short Term Goals Short Term Goals Time Frame: Dec 04, 2020 Roll Left & Right: 2 Sit to lyin Lying to sitting on side of be: 2 Sit to stand: 1 Chair/vaf-sh-fyitk transfer: 1 PT Vp Cardiovascular Goals Group Home Goals PT Vp Cardiovascular Goals Time Frame: Jan 01, 2021 Roll Left & Right (QC): 4 Sit to Lying (QC): 4 Lying-Sitting on Side/Bed(QC): 4 Sit to Stand (QC): 4 Chair/Lwl-oq-Vfxgn Xfer(QC): 4 Toilet Transfer (QC): 4 Does the Patient Walk: Yes Walk 10 feet (QC): 3 Walk 50ft with 2 Turns (QC): 3 PT Plan Treatment/Plan Treatment Plan: Continue Plan of Care Treatment Plan: Bed Mobility, Education, Functional Activity Earnestine, Functional Strength, Gait, Safety, Therapeutic Exercise, Transfers Treatment Duration: Jan 01, 2021 Frequency: 5 times per week Estimated Hrs Per Day: .25 hour per day (to .5 ) Patient and/or Family Agrees t: Yes Time/GCodes Time In: 1006 Time Out: 1019 Total Billed Treatment Time: 13 Total Billed Treatment 1 visit EX 13 min ROSS DIAZ PT Nov 25, 2020 11:37
[2020-11-25] MEDS ORDERED: NS IV 500 ML 500 ML ONE (11:47)
--- NOTE | 2020-11-25 13:31 | NUR ---
CM/SS: Telephone call to daughter [phone] to let her know pt has been accepted to [facility] [place] for possible placement on tomorrow. Daughter would like to be here when pt transitions to [facility].
--- NOTE | 2020-11-25 14:19 | NUR ---
"RD ASSESSMENT PMHx: CAD; hypercholesterolemia; HTN; renal failure; DM; CA(breast); PT INTERACTION: Pt was awake and pleasant during follow-up for LOS. Pt states she has been eating well since last assessment. Note pt PO intake is improving, with avg PO intake 56% x4d, per chart review. Pt states no issues with n/v/c/d since last assessment. Pt states some issues with swallowing still. Note last BM was 2/2, and pt not currently on bowel regimen per chart review. Est. kcal needs: 6452-1038 kcal | 15-18 kcal/kg Est. Pro needs: 98-123 g Pro | 0.8-1.0 g Pro/kg PES STATEMENT: Inadequate oral intake (NI-2.1) related to loss of appetite, as evidenced by pt interview, and avg PO intake 56% x4d. INTERVENTION: Continue with current diet order of DYS1 Pureed diet, with modifier of Pudding Thick liquids. Pt may benefit from swallow evaluation to determine if diet and modifiers are appropriate. Encouraged pt to eat when able. Will continue to follow and reassess as pt needs, intake, and status change. Jorge Luis PORTER, MS RD LD [phone] cell"
[2020-11-25] MEDS: FOLIC ACID 1 MG TAB PO SCH (15:01)
[2020-11-25] MEDS: VITAMIN D3 10 MCG (400 UNITS) TABLET PO SCH (15:01)
[2020-11-25] MEDS: 1/2 NS IV SOLUTION 1,000 ML IV SCH (18:56)
--- NOTE | 2020-11-25 19:39 | Progress Note ---
Subjective Subjective/Events-last exam Afebrile, feeling the same, wishes she could move more. Hemoglobin down to 6.7 again this morning, transfused. Objective Exam Last Set of Vital Signs Vital Signs Date Time Temp Pulse Resp B/P (MAP) Pulse Ox O2 Delivery O2 Flow Rate FiO2 11/25/20 18:13 91 Nasal Cannula 3.00 11/25/20 14:26 36.3 89 20 119/59 11/22/20 10:54 32 Capillary Refill : Less Than 3 SecondsLess Than 3 Seconds I&O Intake and Output 11/25/20 00:00 Intake Total 2500 ml Output Total 1300 ml Balance 1200 ml Intake Oral 1500 ml IV Total 1000 ml Output Urine Total 1300 ml General: Alert, No Acute Distress Lungs: Clear to Auscultation Heart: Regular Rate, No Murmurs Psych/Mental Status: Mood NL Results/Procedures Lab Laboratory Tests 11/24/20 19:49: Glucometer 185H 11/25/20 06:10: White Blood Count 9.4, Red Blood Count 2.34L, Hemoglobin 6.7*L, Hematocrit 22L, Mean Corpuscular Volume 94, Mean Corpuscular Hemoglobin 29, Mean Corpuscular Hemoglobin Concent 30L, Red Cell Distribution Width 19.4H, Platelet Count 225, Mean Platelet Volume 11.9, Sodium Level 139, Potassium Level 3.9, Chloride Level 109H, Carbon Dioxide Level 21, Anion Gap 9, Blood Urea Nitrogen 20H, Creatinine 0.58L, Estimat Glomerular Filtration Rate > 60, BUN/Creatinine Ratio 34, Glucose Level 93, Calcium Level 7.7L, Corrected Calcium 9.3, Magnesium Level 1.6, Total Bilirubin 0.6, Aspartate Amino Transf (AST/SGOT) 36H, Alanine Aminotransferase (ALT/SGPT) 24, Alkaline Phosphatase 39L, Total Protein 4.8L, Albumin 2.0L 11/25/20 06:20: Glucometer 95 11/25/20 11:36: Glucometer 112H 11/25/20 16:10: Glucometer 139H Microbiology 11/16/20 C. difficile GDH Antigen & Toxins - Final, Complete 11/10/20 Gram Stain - Final, Complete 11/10/20 Sputum Culture - Final, Complete Staphylococcus aureus Enterococcus faecalis 11/10/20 Urine Culture - Final, Complete Klebsiella pneumoniae YEAST 11/10/20 Blood Culture - Final, Complete No growth Assessment/Plan Assessment/Plan (1) COVID-19 Status: Acute Assessment & Plan: Completed dexamethasone and convalescent plasma, but required bipap and then mechanical ventilation for prolonged period, able to be extubated and weaned back, now on 3 lpm supplemental oxygen. (2) Pneumonia Status: Acute Assessment & Plan: Due to COVID19 10/28: Due to worsening respiratory failure started on Zosyn and Zyvox 11/22: no longer on antibiotics, afebrile, no significant leukocytosis (3) Acute respiratory failure with hypoxia Status: Acute Assessment & Plan: Present on admission, secondary to above. (4) Diabetes mellitus Status: Chronic Assessment & Plan: Continue home gabapentin, has had significant hyperglycemia throughout stay, levemir increased up to 52 units twice daily and sliding scale C, however recently has not needed sliding scale and blood sugar on lower side, monitor closely. 11/23- blood sugars continue to be on lower side, decrease levemir to 30 units BID. Qualifiers: Qualified Codes: E11.42 - Type 2 diabetes mellitus with diabetic polyneuropathy; Z79.4 - superintendent terminal (current) use of insulin (5) CAD (coronary artery disease) Status: Chronic Assessment & Plan: Continue home aspirin. Qualifiers: Qualified Codes: I25.10 - Atherosclerotic heart disease of [place] coronary artery without angina pectoris (6) Breast cancer Status: Chronic Permanent Comment: Left mastectomy done in 2014 Last Edited By: Lauryn Chandra on Oct 25, 2020 15:38 Assessment & Plan: Home letrozole was ordered originally but non-formulary, and eventually cancelled, uncertain if this was due to not being brought in from home or other reason. Pt to see if family can bring in. Qualifiers: (7) CKD (chronic kidney disease) Status: Chronic Assessment & Plan: Stable, continue to monitor (8) Hyperlipidemia Status: Chronic Assessment & Plan: Continue home statin (9) HTN (hypertension) Status: Chronic Assessment & Plan: Continued home medications, but lisinopril previously held for hyperkalemia, will resume Qualifiers: Qualified Codes: I10 - Essential (primary) hypertension (10) Obesity (BMI 30-39.9) Status: Chronic Assessment & Plan: No acute management issues, but contributes to risk from COVID19 (11) Elevated d-dimer Status: Acute Assessment & Plan: Originally on treatment dose enoxaparin for some time, stopped due to anemia. D-dimer was mildly elevated and recheck normal, will not resume anticoagulation. (12) Anemia Status: Acute Assessment & Plan: Normal on admit, trended down since then, now has been below 7 a few times and required 2 units PRBCs, third ordered today. Was on treatment dose enoxaparin for some time, this has been discontinued. Check stool occult blood. 2/2 hemoccult positive, but hemoglobin stable today after transfusion, if stays stable will monitor and follow up later as I suspect this is related to the anticoagulation and critical illness, no sign of acute current bleed. 2/4 hemoglobin back down to 6.7, transfused again. (13) Pitting edema Status: Acute Assessment & Plan: 2/3 resume home lasix (14) DVT prophylaxis Status: Acute Assessment & Plan: Anticoagulation held due to severe anemia. Clinical Quality Measures DVT/VTE Risk/Contraindication: Risk Factor Score Per Nursin RFS Level Per Nursing on Admit: 3=High LAURYN CHANDRA MD Nov 25, 2020 19:39
[2020-11-25] MEDS: HYDROcodone/APAP 5 MG/325 MG (LORTAB) TAB PO PRN (19:59)
[2020-11-25] MEDS: FENOFIBRATE 134 MG (LOFIBRA) CAPSULE PO SCH (20:04)
[2020-11-26] VITALS: BP 120/55
[2020-11-26] MEDS: RT-ALBUTEROL INHALER HFA (VENTOLIN HFA) 18 GM IH SCH ×3 (01:45→10:46)
[2020-11-26 04:00] VITALS: BP 141/53
[2020-11-26] MEDS: GABAPENTIN 300 MG (NEURONTIN) CAP PO SCH (05:41)
[2020-11-26] MEDS: CATHETER FLUSH 10 ML SYR IV SCH (05:42)
[2020-11-26 05:54] LABS: CHLORIDE 106 MMOL/L (98-107); POTASSIUM 3.8 MMOL/L (3.6-5.0); SODIUM 136 MMOL/L (135-145)
[2020-11-26 05:55] LABS: CALCIUM 7.6 MG/DL (8.5-10.1)
[2020-11-26 05:56] LABS: GLUCOSE 137 MG/DL (70-105)
[2020-11-26 05:57] LABS: CARBON DIOXIDE 21 MMOL/L (21-32)
[2020-11-26 06:00] LABS: CREATININE SERUM 0.56 MG/DL (0.60-1.30); GFR ESTIMATED > 60
[2020-11-26 06:01] LABS: BUN/CREATININE RATIO 30
[2020-11-26 06:02] LABS: MAGNESIUM 1.8 MG/DL (1.6-2.4)
[2020-11-26] MEDS: POTASSIUM CL 10MEQ/50ML IVPB 50 ML IV SCH (06:18)
[2020-11-26] MEDS: KCL 20 MEQ TAB (K-DUR) PO SCH (06:18)
[2020-11-26] MEDS: MAGNESIUM 1 GM/100 ML IVPB 100 ML IV SCH (06:18)
[2020-11-26] MEDS: inSUlin ASPART (NovoLOG) 1 UNIT/0.01 ML (CHARGE PER UNIT) SC SCH (06:18)
[2020-11-26 08:00] VITALS: BP 107/56
[2020-11-26] MEDS: FERROUS SULF 325 MG (IRON) TAB PO SCH (08:36)
[2020-11-26] MEDS: meTOprolol TARTRATE 25 MG (LOPRESSOR) TABLET PO SCH (08:36)
[2020-11-26] MEDS: OMEGA 3 (FISH OIL) 1000 MG CAP PO SCH (08:36)
[2020-11-26] MEDS: amLODIPine 5 MG (NORVASC) TAB PO SCH (08:36)
[2020-11-26] MEDS: PANTOPRAZOLE 40 MG (PROTONIX) VIAL IV SCH (08:36)
[2020-11-26] MEDS: FUROSEMIDE 40 MG (LASIX) TAB PO SCH (08:36)
[2020-11-26] MEDS: lisINopril 20 MG (PRINIVIL) TABLET PO SCH (08:36)
[2020-11-26] MEDS: ASPIRIN 81 MG CHEW (CHILDREN'S ASA) PO SCH (08:36)
[2020-11-26] MEDS: MICONAZOLE 2% POWDER (DESENEX AF) 90 GM TOP SCH (08:45)
[2020-11-26] MEDS: HYDROcodone/APAP 5 MG/325 MG (LORTAB) TAB PO PRN (09:12)
[2020-11-26] MEDS ORDERED: ALBU18HF2 IH (10:37)
[2020-11-26] MEDS ORDERED: INSU100I10 SQ (10:37)
--- NOTE | 2020-11-26 10:41 | Discharge Summary ---
Discharge Summary Hospital Course Hospital Course Date of Admission: Oct 19, 2020 at 18:18 Admission Diagnosis : Family Physician/Provider: José Manuel Jules MD Date of Discharge: 11/26/20 Discharge Diagnosis: See problem list Hospital Course: Pt admitted with COVID19 pneumonia, had severe course requiring mechanical ventilation, was eventually able to be extubated, and is on only nasal cannula supplemental oxygen now, but has severe debility, able only to move hands and feet some and also having dysphagia requiring pureed diet, working with PT , ST and OT on strengthening. There was concern for PE and was put on enoxaparin, but had severe anemia requiring transfusions and D dimer returned to normal, so anticoagulation was stopped. See problem list below: (1) COVID-19 Status: Acute Assessment & Plan: Completed dexamethasone and convalescent plasma, but required bipap and then mechanical ventilation for prolonged period, able to be extubated and weaned back, now on 3 lpm supplemental oxygen. (2) Pneumonia Status: Acute Assessment & Plan: Due to COVID19 10/28: Due to worsening respiratory failure started on Zosyn and Zyvox 11/22: no longer on antibiotics, afebrile, no significant leukocytosis (3) Acute respiratory failure with hypoxia Status: Acute Assessment & Plan: Present on admission, secondary to above. (4) Diabetes mellitus Status: Chronic Assessment & Plan: Continue home gabapentin, has had significant hyperglycemia throughout stay, levemir increased up to 52 units twice daily and sliding scale C, however recently has not needed sliding scale and blood sugar on lower side, monitor closely. 11/23- blood sugars continue to be on lower side, decrease levemir to 30 units BID. Qualifiers: Qualified Codes: E11.42 - Type 2 diabetes mellitus with diabetic polyn [place]; Z79.4 - manager long term care (current) use of insulin (5) CAD (coronary artery disease) Status: Chronic Assessment & Plan: Continue home aspirin. Qualifiers: Qualified Codes: I25.10 - Atherosclerotic heart disease of [place] coronary artery without angina pectoris (6) Breast cancer Status: Chronic Permanent Comment: Left mastectomy done in 2014 Last Edited By: Lauryn Licona on Oct 25, 2020 15:38 Assessment & Plan: Home letrozole was ordered originally but non-formulary, and eventually cancelled, uncertain if this was due to not being brought in from home or other reason. Pt to see if family can bring in. Qualifiers: (7) CKD (chronic kidney disease) Status: Chronic Assessment & Plan: Stable, continue to monitor (8) Hyperlipidemia Status: Chronic Assessment & Plan: Continue home statin (9) HTN (hypertension) Status: Chronic Assessment & Plan: Continued home medications, but lisinopril previously held for hyperkalemia, will resume Qualifiers: Qualified Codes: I10 - Essential (primary) hypertension (10) Obesity (BMI 30-39.9) Status: Chronic Assessment & Plan: No acute management issues, but contributes to risk from COVID19 (11) Elevated d-dimer Status: Acute Assessment & Plan: Originally on treatment dose enoxaparin for some time, stopped due to anemia. D-dimer was mildly elevated and recheck normal, will not resume anticoagulation. (12) Anemia Status: Acute Assessment & Plan: Normal on admit, trended down since then, now has been below 7 a few times and required 2 units PRBCs, third ordered today. Was on treatment dose enoxaparin for some time, this has been discontinued. Check stool occult blood. 2/2 hemoccult positive, but hemoglobin stable today after transfusion, if stays stable will monitor and follow up later as I suspect this is related to the anticoagulation and critical illness, no sign of acute current bleed. 2/4 hemoglobin back down to 6.7, transfused again. (13) Pitting edema Status: Acute Assessment & Plan: 2/3 resume home lasix Labs and Pending Lab Test: Laboratory Tests 11/25/20 11:36: Glucometer 112H 11/25/20 16:10: Glucometer 139H 11/25/20 20:22: Glucometer 197H 11/25/20 21:45: Hemoglobin 7.8L 11/26/20 05:35: Hemoglobin 8.0L, Hematocrit 26L, Sodium Level 136, Potassium Level 3.8, Chloride Level 106, Carbon Dioxide Level 21, Anion Gap 9, Blood Urea Nitrogen 17, Creatinine 0.56L, Estimat Glomerular Filtration Rate > 60, BUN/Creatinine Ratio 30, Glucose Level 137H, Calcium Level 7.6L, Magnesium Level 1.8 Microbiology 11/16/20 C. difficile GDH Antigen & Toxins - Final, Complete 11/10/20 Gram Stain - Final, Complete 11/10/20 Sputum Culture - Final, Complete Staphylococcus aureus Enterococcus faecalis 11/10/20 Urine Culture - Final, Complete Klebsiella pneumoniae YEAST 11/10/20 Blood Culture - Final, Complete No growth Home Meds Active Reported Atorvastatin Calcium 40 Mg Tablet 40 Mg PO HS Trulicity (Dulaglutide) 1.5 Mg/0.5 Ml Pen.injctr 1.5 Mg SC WED Pantoprazole Sodium 40 Mg Tablet.dr 40 Mg PO DAILY Neurontin (Gabapentin) 300 Mg Capsule 600 Mg PO HS TAKES 2 (300MG) CAPS Neurontin (Gabapentin) 300 Mg Capsule 300 Mg PO 0700,1400 Lisinopril 40 Mg Tablet 40 Mg PO DAILY Furosemide 40 Mg Tablet 40 Mg PO DAILY Humalog Kwikpen (Insulin Lispro) 100 Unit/1 Ml Insuln.pen 30-60 Units SC TIDAC D3-2000 (Cholecalciferol (Vitamin D3)) 50 Mcg Capsule 50 Mcg PO 1400 Fish Oil 1,200 mg Softgel (Post-3 Fatty Acids/Fish Oil) 1 Each Capsule 1 Each PO TID Lantus Solostar (Insulin Glargine,Hum.rec.anlog) 100 Unit/1 Ml Insuln.pen 65 Unit SQ BID Magnesium Oxide 400 Mg Tablet 400 Mg PO TID Fenofibrate (Fenofibrate,Micronized) 134 Mg Capsule 134 Mg PO HS Metoprolol Tartrate 25 Mg Tablet 12.5 Mg PO BID TAKES OF A 25MG TAB Acetaminophen 500 Mg Tablet 500 Mg PO TID PRN Folic Acid 0.8 Mg Tablet 0.8 Mg PO 1400 Aspirin EC (Aspirin) 81 Mg Tablet. 81 Mg PO DAILY Letrozole 2.5 Mg Tablet 2.5 Mg PO HS Amlodipine Besylate 5 Mg Tablet 5 Mg PO HS Instructions to Patient/Family Assessment/Instructions Patient requested to have Dr. Law be her attending physician, this was discussed with Dr. Law who agreed to accept her at [facility]. Skilled NF Admit to: [facility] Certification (SNF) I certify that SNF services are required to be given on an inpatient basis because of the above named patient's need for fdc care on a continuing basis for the conditions(s) for which he/she was receiving inpatient hospital services prior to his/her transfer to the SNF. Group Home Facility Order: Nursing Services, Single Wire Saw Operator-Evaluate & Treat, Physical Therapy-Evaluate & Treat, Speech Language-Evaluate & Treat, Wound Care-Eval/Treat Oxygen Delivery Method: Nasal Cannula Discharge Diet: ADA Diet Daily Activity as Tolerated: Yes Lauryn Licona Nov 26, 2020 10:38 Discharge Physical Exam General: Alert, No Acute Distress Lungs: Clear to Auscultation, Normal Air Movement Heart: Regular Rate, No Murmurs Neuro: Normal Speech Psych/Mental Status: Mood NL Diagnosis/Problems Problems/Diagonsis (1) Acute respiratory failure with hypoxia Status: Acute (2) Anemia Status: Acute (3) Elevated d-dimer Status: Acute (4) Pitting edema Status: Acute (5) Pneumonia Status: Acute (6) Diabetes mellitus Status: Chronic Qualifiers: Qualified Codes: E11.42 - Type 2 diabetes mellitus with diabetic polyneuropathy; Z79.4 - skilled nursing (current) use of insulin (7) CAD (coronary artery disease) Status: Chronic Qualifiers: Qualified Codes: I25.10 - Atherosclerotic heart disease of [place] coronary artery without angina pectoris (8) CKD (chronic kidney disease) Status: Chronic (9) Breast cancer Status: Chronic Permanent Comment: Left mastectomy done in 2014 Last Edited By: Lauryn fox on Oct 25, 2020 15:38 Qualifiers: (10) HTN (hypertension) Status: Chronic Qualifiers: Qualified Codes: I10 - Essential (primary) hypertension (11) Hyperlipidemia Status: Chronic (12) COVID-19 Status: Acute (13) Obesity (BMI 30-39.9) Status: Chronic LAURYN LICONA MD Nov 26, 2020 10:41
[2020-11-26 11:14] VITALS: BP 107/56
--- NOTE | 2020-11-26 12:00 | NUR ---
FAN NJ Richardson demonstrates understanding of discharge instructions and accurately returns instructions upon questioning. Copy of Post-Discharge Instructions and Medication Discharge Instructions given to patient. FAN NJ Richardson is able to manage continuing needs after discharge. Patients belongings returned to patient. Skin dry and intact; no breakdown noted. Patient discharged from [facility]- on 11/26/20 at 1200. FAN NJ Richardson left floor via EMS, accompanied by staff and family.
--- NOTE | 2020-11-26 12:32 | NUR ---
CM/SS: Visit with pt and daughter as to the plan for discharge to [facility] today. They are both good with the plan. Plan: Pt will go to [facility] for jail services. Summary: Pt's daughter is at the bedside and is assisting pt. Pt is aware she will go to the [facility] today. Pt is concerned who will pay for her to be there. Pt is reminded that her insurance as authorized her to be there and will pay for so many days for her to get better. She is also reminded that the facility will work with her if more days are needed. Pt seems ok with that. Pt is able to sign her IMM - Important Message from Medicare - via an "X" and witnessed by Carla Marinelli and this worker. Pt is wished well. There is a delay in pt leaving at the 10 am time as the orders were not complete. Also facility brought over a wheelchair and it did not accommodate pt's needs. Pt will need to go non emergent EMS. Discharge orders are faxed to [facility]. Facility notified of the transport via Non Emergent EMS.
--- NOTE | 2020-11-26 12:41 | NUR ---
CM/SS: Pt will go Non Emergent EMS for transfer to [facility].
== END 2020-11-26 12:00 | DRG 207 ==
LOC: EDUNIT# 17:00 → ER 17:02 → 4TH 18:18 → ICU 10-28 14:18 → 4TH 11-17 10:45
PROVIDERS: ADMIT Internal Medicine; ATTEND Family Medicine
PROC: XW13325 Transfusion of Convalescent Plasma (Nonautologous) into Peripheral Vein, Percutaneous Approach, New Technology Group 5 (ICD-10-PCS; principal; 2020-10-27)
PROC: 5A1955Z Respiratory Ventilation, Greater than 96 Consecutive Hours (ICD-10-PCS; 2020-11-01)
PROC: 0BH17EZ Insertion of Endotracheal Airway into Trachea, Via Natural or Artificial Opening (ICD-10-PCS; 2020-11-01)
PROC: 02HV33Z Insertion of Infusion Device into Superior Vena Cava, Percutaneous Approach (ICD-10-PCS; 2020-11-01)
DX: U07.1 COVID-19 (principal); J12.82 Pneumonia due to coronavirus disease 2019; J80 Acute respiratory distress syndrome; N39.0 Urinary tract infection, site not specified; I25.10 Atherosclerotic heart disease of native coronary artery without angina pectoris; N18.9 Chronic kidney disease, unspecified; E78.5 Hyperlipidemia, unspecified; I12.9 Hypertensive chronic kidney disease with stage 1 through stage 4 chronic kidney disease, or unspecified chronic kidney disease; E11.22 Type 2 diabetes mellitus with diabetic chronic kidney disease; Z68.37 Body mass index [BMI] 37.0-37.9, adult; Z73.0 Burn-out; D64.9 Anemia, unspecified; Z85.3 Personal history of malignant neoplasm of breast; Z90.12 Acquired absence of left breast and nipple; Z88.5 Allergy status to narcotic agent; Z79.4 Long term (current) use of insulin; Z79.82 Long term (current) use of aspirin; Z87.891 Personal history of nicotine dependence; Z95.5 Presence of coronary angioplasty implant and graft; I25.2 Old myocardial infarction; E78.00 Pure hypercholesterolemia, unspecified; E11.42 Type 2 diabetes mellitus with diabetic polyneuropathy; M19.90 Unspecified osteoarthritis, unspecified site; G89.29 Other chronic pain; M54.9 Dorsalgia, unspecified; Z92.21 Personal history of antineoplastic chemotherapy; Z92.3 Personal history of irradiation; E66.01 Morbid (severe) obesity due to excess calories; B95.61 Methicillin susceptible Staphylococcus aureus infection as the cause of diseases classified elsewhere
CPT/HCPCS: 36415; 36569; 71045; 76937; 80048; 80053; 81000; 82274; 82805; 82962; 83605; 83615; 83735; 83880; 84100; 84132; 84145; 84478; 85007; 85014; 85018; 85025; 85027; 85379; 85610; 85730; 86141; 86850; 86900; 86901; 86920; 87040; 87070; 87077; 87081; 87088; 87106; 87186; 87205; 87324; 87449; 87804; 94002; 94003; 94640; 94660; 94664; 94760; 94799; 96372

== ENCOUNTER → 2020-12-13 | Outpatient (CLI) | payer MEDICARE ==
[~2020-12-13] MED LIST changes: +ALBU18HF2 IH; +ATOR40TA70 PO; +CHOL200012 PO; -CIPR500T4 PO; +CIPR500T5 PO; +DULA1.5P2 SC; +FURO40TA4 PO; +GABA300C PO; +INSU100I23 SC; +LISI40TA9 PO; +OMEG-109 PO; +PANT40TA52 PO
== END ==
LOC: WOUNDCARE 09:04
PROVIDERS: ATTEND Surgery
DX: L89.150 Pressure ulcer of sacral region, unstageable (principal); L89.313 Pressure ulcer of right buttock, stage 3; E11.622 Type 2 diabetes mellitus with other skin ulcer; E66.01 Morbid (severe) obesity due to excess calories; M62.3 Immobility syndrome (paraplegic)
CPT/HCPCS: 99214

== ENCOUNTER → 2020-12-24 | Outpatient (CLI) | payer MEDICARE ==
[~2020-12-24] MED LIST changes: -FOLI0.8T PO; +FOLI0.8T4 PO
== END ==
LOC: WOUNDCARE 10:45
PROVIDERS: ATTEND Orthopaedic Surgery Hand Surgery
DX: L89.150 Pressure ulcer of sacral region, unstageable (principal); L89.313 Pressure ulcer of right buttock, stage 3; E11.622 Type 2 diabetes mellitus with other skin ulcer; E66.01 Morbid (severe) obesity due to excess calories; M62.3 Immobility syndrome (paraplegic); E11.52 Type 2 diabetes mellitus with diabetic peripheral angiopathy with gangrene

== ENCOUNTER → 2020-12-29 | Outpatient (CLI) | payer MEDICARE | LOC: WOUNDCARE 11:01 | PROVIDERS: ATTEND Surgery | DX: L89.154 Pressure ulcer of sacral region, stage 4 (principal); E11.622 Type 2 diabetes mellitus with other skin ulcer; E66.01 Morbid (severe) obesity due to excess calories; M62.3 Immobility syndrome (paraplegic); E11.65 Type 2 diabetes mellitus with hyperglycemia; E44.1 Mild protein-calorie malnutrition; E11.52 Type 2 diabetes mellitus with diabetic peripheral angiopathy with gangrene | CPT/HCPCS: 11043; 11046; 87070; 87075; 87077; 87186; 87205 ==

== ENCOUNTER → 2021-01-07 | Outpatient (CLI) | payer MEDICARE | LOC: WOUNDCARE 10:30 | PROVIDERS: ATTEND Orthopaedic Surgery Hand Surgery | DX: I96 Gangrene, not elsewhere classified (principal); L89.154 Pressure ulcer of sacral region, stage 4; E11.622 Type 2 diabetes mellitus with other skin ulcer; E66.01 Morbid (severe) obesity due to excess calories; M62.3 Immobility syndrome (paraplegic); E11.65 Type 2 diabetes mellitus with hyperglycemia; E44.1 Mild protein-calorie malnutrition ==

== ENCOUNTER → 2021-01-12 | Outpatient (CLI) | payer MEDICARE | LOC: WOUNDCARE 10:57 | PROVIDERS: ATTEND Surgery | DX: L89.154 Pressure ulcer of sacral region, stage 4 (principal); E11.622 Type 2 diabetes mellitus with other skin ulcer; E66.01 Morbid (severe) obesity due to excess calories; M62.3 Immobility syndrome (paraplegic); E11.65 Type 2 diabetes mellitus with hyperglycemia; E44.1 Mild protein-calorie malnutrition; E11.52 Type 2 diabetes mellitus with diabetic peripheral angiopathy with gangrene | CPT/HCPCS: 11043; 11046 ==

== ENCOUNTER → 2021-01-19 | Outpatient (CLI) | payer MEDICARE ==
[2021-01-19 11:30] LABS: BASOPHILS # (AUTO) 0.1 10^3/uL (0.0-0.1); BASOPHILS % (AUTO) 1 % (0-10); EOSINOPHILS # (AUTO) 0.3 10^3/uL (0.0-0.3); EOSINOPHILS % (AUTO) 3 % (0-10); HEMATOCRIT 36 % (35-52); HEMOGLOBIN 10.9 g/dL (11.5-16.0); LYMPHOCYTES # (AUTO) 1.5 10^3/uL (1.0-4.0); LYMPHOCYTES % (AUTO) 16 % (12-44); MEAN CORPUSCULAR HEMOGLOBIN 27 pg (25-34); MEAN CORPUSCULAR HGB CONC 30 g/dL (32-36); MEAN CORPUSCULAR VOLUME 89 fL (80-99); MEAN PLATELET VOLUME 12.6 fL (9.0-12.2); MONOCYTES # (AUTO) 0.7 10^3/uL (0.0-1.0); MONOCYTES % (AUTO) 7 % (0-12); NEUTROPHILS # (AUTO) 6.7 10^3/uL (1.8-7.8); NEUTROPHILS % (AUTO) 72 % (42-75); PLATELET COUNT 343 10^3/uL (130-400); WHITE BLOOD COUNT 9.3 10^3/uL (4.3-11.0)
[2021-01-19 11:48] LABS: ALANINE AMINOTRANSFERASE 15 U/L (0-55); ALBUMIN 3.1 GM/DL (3.2-4.5); ALKALINE PHOSPHATASE 31 U/L (40-136); BILIRUBIN,TOTAL 0.2 MG/DL (0.1-1.0); BUN/CREATININE RATIO 21; CALCIUM 9.5 MG/DL (8.5-10.1); CARBON DIOXIDE 26 MMOL/L (21-32); CHLORIDE 102 MMOL/L (98-107); CREATININE SERUM 0.91 MG/DL (0.60-1.30); GFR ESTIMATED > 60; GLUCOSE 260 MG/DL (70-105); POTASSIUM 4.1 MMOL/L (3.6-5.0); SODIUM 137 MMOL/L (135-145); TOTAL PROTEIN 7.6 GM/DL (6.4-8.2)
== END ==
LOC: ONC 10:58
PROVIDERS: ATTEND Internal Medicine Hematology & Oncology
DX: C50.112 Malignant neoplasm of central portion of left female breast (principal); I25.10 Atherosclerotic heart disease of native coronary artery without angina pectoris; E55.9 Vitamin D deficiency, unspecified; M89.49 Other hypertrophic osteoarthropathy, multiple sites; D63.1 Anemia in chronic kidney disease; I12.9 Hypertensive chronic kidney disease with stage 1 through stage 4 chronic kidney disease, or unspecified chronic kidney disease; E11.22 Type 2 diabetes mellitus with diabetic chronic kidney disease; N18.30 Chronic kidney disease, stage 3 unspecified; E78.5 Hyperlipidemia, unspecified; Z90.12 Acquired absence of left breast and nipple; Z98.890 Other specified postprocedural states; Z92.21 Personal history of antineoplastic chemotherapy; Z92.3 Personal history of irradiation; Z95.5 Presence of coronary angioplasty implant and graft; Z79.811 Long term (current) use of aromatase inhibitors; Z96.641 Presence of right artificial hip joint
CPT/HCPCS: 80053; 82306; 85025; 99213

== ENCOUNTER → 2021-01-20 | Outpatient (CLI) | payer MEDICARE | LOC: WOUNDCARE 11:29 | PROVIDERS: ATTEND Surgery | DX: E11.621 Type 2 diabetes mellitus with foot ulcer (principal); L97.512 Non-pressure chronic ulcer of other part of right foot with fat layer exposed; L89.154 Pressure ulcer of sacral region, stage 4; I96 Gangrene, not elsewhere classified; E11.622 Type 2 diabetes mellitus with other skin ulcer; E66.01 Morbid (severe) obesity due to excess calories; M62.3 Immobility syndrome (paraplegic); E11.65 Type 2 diabetes mellitus with hyperglycemia; E44.1 Mild protein-calorie malnutrition; L03.115 Cellulitis of right lower limb | CPT/HCPCS: 11043; 11046 ==

== ENCOUNTER → 2021-01-27 | Outpatient (CLI) | payer MEDICARE, MEDICAID ==
--- NOTE | 2021-01-27 12:03 | Diagnostic Imaging Report ---
PROCEDURE: US Bilateral lower extremity arterial. TECHNIQUE: Multiple real-time grayscale images are obtained through both lower extremity arterial systems with color Doppler imaging and color Doppler spectral analysis. INDICATION: Claudication FINDINGS: There are biphasic waveforms in the right common femoral artery, superficial femoral artery and popliteal artery. There are biphasic waveforms below the knee on the right. There are no focally elevated velocities appreciated to suggest stenosis. There are no occlusions. There are no abnormal fluid collections or masses on the right. There are triphasic waveforms in the left common femoral artery. There are biphasic and triphasic waveforms in the left superficial femoral artery and popliteal artery. The left mid and proximal posterior tibial artery is not visualized. The left peroneal arteries in the calf are not seen. Proximally, there are no focally elevated velocities appreciated to suggest stenosis. There are no occlusions. There are no occlusions above the knee. There are no abnormal fluid collections or masses IMPRESSION: Findings suspect for significant small vessel disease below the knee on the left as the proximal and mid left posterior tibial artery are not visualized and presumed occluded. Additionally, left peroneal arteries in the calf are also presumed occluded. Recommend clinical correlation. There are normal biphasic and triphasic waveforms above the knees bilaterally without evidence of stenosis or occlusion. Dictated by: Dictated on workstation # [id number]
--- NOTE | 2021-01-27 12:17 | Diagnostic Imaging Report ---
INDICATION: Claudication TECHNIQUE: Brachial low thigh, calf, posterior tibial, dorsalis pedis and digital pressures were obtained. FINDINGS: Ankle brachial index on the right is 1.02 and on the left is 1.12. IMPRESSION: Normal bilateral ankle-brachial indices. Dictated by: Dictated on workstation # [id number]
== END ==
LOC: RAD 08:39
PROVIDERS: ATTEND Surgery
DX: I70.235 Atherosclerosis of native arteries of right leg with ulceration of other part of foot (principal); L89.154 Pressure ulcer of sacral region, stage 4; E11.622 Type 2 diabetes mellitus with other skin ulcer; E66.01 Morbid (severe) obesity due to excess calories; M62.3 Immobility syndrome (paraplegic); E11.65 Type 2 diabetes mellitus with hyperglycemia; E44.1 Mild protein-calorie malnutrition; E11.621 Type 2 diabetes mellitus with foot ulcer; L97.512 Non-pressure chronic ulcer of other part of right foot with fat layer exposed; L03.115 Cellulitis of right lower limb
CPT/HCPCS: 93923; 93925

== ENCOUNTER → 2021-01-27 | Outpatient (CLI) | payer MEDICARE, MEDICAID | LOC: WOUNDCARE 09:17 | PROVIDERS: ATTEND Surgery | DX: I96 Gangrene, not elsewhere classified (principal); L97.512 Non-pressure chronic ulcer of other part of right foot with fat layer exposed; E11.621 Type 2 diabetes mellitus with foot ulcer; L89.154 Pressure ulcer of sacral region, stage 4; E11.622 Type 2 diabetes mellitus with other skin ulcer; E66.01 Morbid (severe) obesity due to excess calories; M62.3 Immobility syndrome (paraplegic); E11.65 Type 2 diabetes mellitus with hyperglycemia; E44.1 Mild protein-calorie malnutrition; L03.116 Cellulitis of left lower limb | CPT/HCPCS: 11043; 11046 ==

== ENCOUNTER → 2021-02-03 | Outpatient (CLI) | payer MEDICARE, MEDICAID | LOC: WOUNDCARE 11:07 | PROVIDERS: ATTEND Orthopaedic Surgery Hand Surgery | DX: E11.52 Type 2 diabetes mellitus with diabetic peripheral angiopathy with gangrene (principal); E11.621 Type 2 diabetes mellitus with foot ulcer; E11.622 Type 2 diabetes mellitus with other skin ulcer; E11.65 Type 2 diabetes mellitus with hyperglycemia; I96 Gangrene, not elsewhere classified; L89.154 Pressure ulcer of sacral region, stage 4; E66.01 Morbid (severe) obesity due to excess calories; M62.3 Immobility syndrome (paraplegic); E44.1 Mild protein-calorie malnutrition; L03.115 Cellulitis of right lower limb | CPT/HCPCS: 11042; 11045 ==

== ENCOUNTER → 2021-02-10 | Outpatient (CLI) | payer MEDICARE, MEDICAID | LOC: WOUNDCARE 10:57 | PROVIDERS: ATTEND Surgery | DX: L97.512 Non-pressure chronic ulcer of other part of right foot with fat layer exposed (principal); E11.621 Type 2 diabetes mellitus with foot ulcer; L89.154 Pressure ulcer of sacral region, stage 4; E11.622 Type 2 diabetes mellitus with other skin ulcer; E66.01 Morbid (severe) obesity due to excess calories; M62.3 Immobility syndrome (paraplegic); E11.65 Type 2 diabetes mellitus with hyperglycemia; E44.1 Mild protein-calorie malnutrition; L03.115 Cellulitis of right lower limb; E11.52 Type 2 diabetes mellitus with diabetic peripheral angiopathy with gangrene | CPT/HCPCS: 11042; 11043; 11046; 87070; 87075; 87077; 87186; 87205 ==

== ENCOUNTER → 2021-02-16 | Outpatient (CLI) | payer MEDICARE, MEDICAID | LOC: WOUNDCARE 14:28 | PROVIDERS: ATTEND Surgery | DX: L97.512 Non-pressure chronic ulcer of other part of right foot with fat layer exposed (principal); L89.154 Pressure ulcer of sacral region, stage 4; E11.621 Type 2 diabetes mellitus with foot ulcer; E11.622 Type 2 diabetes mellitus with other skin ulcer; E66.09 Other obesity due to excess calories; E11.65 Type 2 diabetes mellitus with hyperglycemia; E44.1 Mild protein-calorie malnutrition; M62.3 Immobility syndrome (paraplegic); L03.115 Cellulitis of right lower limb | CPT/HCPCS: 11043; 11046 ==

== ENCOUNTER → 2021-02-23 | Outpatient (CLI) | payer MEDICARE, MEDICAID | LOC: WOUNDCARE 14:24 | PROVIDERS: ATTEND Surgery | DX: L97.512 Non-pressure chronic ulcer of other part of right foot with fat layer exposed (principal); E11.621 Type 2 diabetes mellitus with foot ulcer; L89.154 Pressure ulcer of sacral region, stage 4; E11.622 Type 2 diabetes mellitus with other skin ulcer; E66.01 Morbid (severe) obesity due to excess calories; M62.3 Immobility syndrome (paraplegic); E11.65 Type 2 diabetes mellitus with hyperglycemia; E44.1 Mild protein-calorie malnutrition; L03.115 Cellulitis of right lower limb; E11.52 Type 2 diabetes mellitus with diabetic peripheral angiopathy with gangrene | CPT/HCPCS: 11042; 11043; 11046 ==

== ENCOUNTER → 2021-03-09 | Outpatient (CLI) | payer MEDICARE, MEDICAID | LOC: WOUNDCARE 09:56 | PROVIDERS: ATTEND Surgery | DX: I96 Gangrene, not elsewhere classified (principal); L89.154 Pressure ulcer of sacral region, stage 4; E11.622 Type 2 diabetes mellitus with other skin ulcer; L97.512 Non-pressure chronic ulcer of other part of right foot with fat layer exposed; E11.621 Type 2 diabetes mellitus with foot ulcer; M62.3 Immobility syndrome (paraplegic); E11.65 Type 2 diabetes mellitus with hyperglycemia; E66.01 Morbid (severe) obesity due to excess calories | CPT/HCPCS: 11043; 11046; 97605 ==

== ENCOUNTER → 2021-03-16 | Outpatient (CLI) | payer MEDICARE, MEDICAID | LOC: WOUNDCARE 09:55 | PROVIDERS: ATTEND Surgery | DX: L89.154 Pressure ulcer of sacral region, stage 4 (principal); E11.622 Type 2 diabetes mellitus with other skin ulcer; L97.512 Non-pressure chronic ulcer of other part of right foot with fat layer exposed; E11.621 Type 2 diabetes mellitus with foot ulcer; E66.01 Morbid (severe) obesity due to excess calories; M62.3 Immobility syndrome (paraplegic); E11.65 Type 2 diabetes mellitus with hyperglycemia; E11.52 Type 2 diabetes mellitus with diabetic peripheral angiopathy with gangrene | CPT/HCPCS: 11043; 11046; 97605 ==

== ENCOUNTER → 2021-03-25 | Outpatient (CLI) | payer MEDICARE, MEDICAID | LOC: WOUNDCARE 10:02 | PROVIDERS: ATTEND Orthopaedic Surgery Hand Surgery | DX: I96 Gangrene, not elsewhere classified (principal); L89.154 Pressure ulcer of sacral region, stage 4; E11.622 Type 2 diabetes mellitus with other skin ulcer; L97.512 Non-pressure chronic ulcer of other part of right foot with fat layer exposed; E11.621 Type 2 diabetes mellitus with foot ulcer; E66.01 Morbid (severe) obesity due to excess calories; M62.3 Immobility syndrome (paraplegic); E11.65 Type 2 diabetes mellitus with hyperglycemia | CPT/HCPCS: 11043; 97605 ==

== ENCOUNTER → 2021-03-30 | Outpatient (CLI) | payer MEDICARE, MEDICAID | LOC: WOUNDCARE 10:17 | PROVIDERS: ATTEND Surgery | DX: U07.1 COVID-19 (principal); I96 Gangrene, not elsewhere classified; E11.622 Type 2 diabetes mellitus with other skin ulcer; E11.621 Type 2 diabetes mellitus with foot ulcer; E11.65 Type 2 diabetes mellitus with hyperglycemia; L89.154 Pressure ulcer of sacral region, stage 4; L97.512 Non-pressure chronic ulcer of other part of right foot with fat layer exposed; E66.01 Morbid (severe) obesity due to excess calories; M62.3 Immobility syndrome (paraplegic) | CPT/HCPCS: 11043; 11046; 97605 ==

== ENCOUNTER → 2021-04-06 | Outpatient (CLI) | payer MEDICARE, MEDICAID | LOC: WOUNDCARE 09:59 | PROVIDERS: ATTEND Surgery | DX: U07.1 COVID-19 (principal); L89.154 Pressure ulcer of sacral region, stage 4; I96 Gangrene, not elsewhere classified; E11.622 Type 2 diabetes mellitus with other skin ulcer; L97.512 Non-pressure chronic ulcer of other part of right foot with fat layer exposed; E11.621 Type 2 diabetes mellitus with foot ulcer; E66.01 Morbid (severe) obesity due to excess calories; E11.65 Type 2 diabetes mellitus with hyperglycemia; M62.3 Immobility syndrome (paraplegic) | CPT/HCPCS: 11043; 97605 ==

== ENCOUNTER → 2021-04-13 | Outpatient (CLI) | payer MEDICARE, MEDICAID ==
[2021-04-13 12:04] LABS: BASOPHILS # (AUTO) 0.1 10^3/uL (0.0-0.1); BASOPHILS % (AUTO) 1 % (0-10); EOSINOPHILS # (AUTO) 0.4 10^3/uL (0.0-0.3); EOSINOPHILS % (AUTO) 3 % (0-10); HEMATOCRIT 40 % (35-52); HEMOGLOBIN 12.7 g/dL (11.5-16.0); LYMPHOCYTES % (AUTO) 19 % (12-44); MEAN CORPUSCULAR HEMOGLOBIN 27 pg (25-34); MEAN CORPUSCULAR HGB CONC 32 g/dL (32-36); MEAN CORPUSCULAR VOLUME 85 fL (80-99); MEAN PLATELET VOLUME 12.8 fL (9.0-12.2); MONOCYTES # (AUTO) 0.5 10^3/uL (0.0-1.0); MONOCYTES % (AUTO) 5 % (0-12); NEUTROPHILS # (AUTO) 7.6 10^3/uL (1.8-7.8); NEUTROPHILS % (AUTO) 71 % (42-75); PLATELET COUNT 335 10^3/uL (130-400); WHITE BLOOD COUNT 10.8 10^3/uL (4.3-11.0)
[2021-04-13 12:24] LABS: ALBUMIN 3.5 GM/DL (3.2-4.5); BILIRUBIN,TOTAL 0.3 MG/DL (0.1-1.0); CALCIUM 10.3 MG/DL (8.5-10.1); CREATININE SERUM 1.21 MG/DL (0.60-1.30); POTASSIUM 4.1 MMOL/L (3.6-5.0)
== END ==
LOC: LAB 10:34
PROVIDERS: ATTEND Surgery
DX: E11.622 Type 2 diabetes mellitus with other skin ulcer (principal)
CPT/HCPCS: 36415; 80053; 83036; 85025

== ENCOUNTER → 2021-04-13 | Outpatient (CLI) | payer MEDICARE, MEDICAID | LOC: WOUNDCARE 10:01 | PROVIDERS: ATTEND Surgery | DX: U07.1 COVID-19 (principal); I96 Gangrene, not elsewhere classified; L97.511 Non-pressure chronic ulcer of other part of right foot limited to breakdown of skin; L89.154 Pressure ulcer of sacral region, stage 4; E11.622 Type 2 diabetes mellitus with other skin ulcer; L97.512 Non-pressure chronic ulcer of other part of right foot with fat layer exposed; E11.621 Type 2 diabetes mellitus with foot ulcer; E66.01 Morbid (severe) obesity due to excess calories; E11.65 Type 2 diabetes mellitus with hyperglycemia; M62.3 Immobility syndrome (paraplegic) | CPT/HCPCS: 11042; 97605 ==

== ENCOUNTER → 2021-04-20 | Outpatient (CLI) | payer MEDICARE, MEDICAID | LOC: WOUNDCARE 10:09 | PROVIDERS: ATTEND Surgery | DX: U07.1 COVID-19 (principal); L03.115 Cellulitis of right lower limb; I96 Gangrene, not elsewhere classified; M21.961 Unspecified acquired deformity of right lower leg; L97.512 Non-pressure chronic ulcer of other part of right foot with fat layer exposed; E11.621 Type 2 diabetes mellitus with foot ulcer; L89.154 Pressure ulcer of sacral region, stage 4; E11.622 Type 2 diabetes mellitus with other skin ulcer; E66.01 Morbid (severe) obesity due to excess calories; M62.3 Immobility syndrome (paraplegic); E11.65 Type 2 diabetes mellitus with hyperglycemia | CPT/HCPCS: 11042; 87070; 87205; 97605 ==

== ENCOUNTER → 2021-04-27 | Outpatient (CLI) | payer MEDICARE, MEDICAID | LOC: WOUNDCARE 10:02 | PROVIDERS: ATTEND Surgery | DX: U07.1 COVID-19 (principal); L97.512 Non-pressure chronic ulcer of other part of right foot with fat layer exposed; I96 Gangrene, not elsewhere classified; E11.621 Type 2 diabetes mellitus with foot ulcer; L89.154 Pressure ulcer of sacral region, stage 4; E11.622 Type 2 diabetes mellitus with other skin ulcer; M21.961 Unspecified acquired deformity of right lower leg; E66.01 Morbid (severe) obesity due to excess calories; M62.3 Immobility syndrome (paraplegic); E11.65 Type 2 diabetes mellitus with hyperglycemia; Z68.36 Body mass index [BMI] 36.0-36.9, adult | CPT/HCPCS: 11042; 97605 ==

== ENCOUNTER → 2021-05-04 | Outpatient (CLI) | payer MEDICARE, MEDICAID | LOC: WOUNDCARE 10:01 | PROVIDERS: ATTEND Surgery | DX: U07.1 COVID-19 (principal); I96 Gangrene, not elsewhere classified; L97.512 Non-pressure chronic ulcer of other part of right foot with fat layer exposed; L89.154 Pressure ulcer of sacral region, stage 4; E11.621 Type 2 diabetes mellitus with foot ulcer; E11.622 Type 2 diabetes mellitus with other skin ulcer; M21.961 Unspecified acquired deformity of right lower leg; E66.01 Morbid (severe) obesity due to excess calories; M62.3 Immobility syndrome (paraplegic); E11.65 Type 2 diabetes mellitus with hyperglycemia; Z68.36 Body mass index [BMI] 36.0-36.9, adult | CPT/HCPCS: 11042 ==

== ENCOUNTER → 2021-05-11 | Outpatient (CLI) | payer MEDICARE, MEDICAID | LOC: WOUNDCARE 10:00 | PROVIDERS: ATTEND Surgery | DX: L89.154 Pressure ulcer of sacral region, stage 4 (principal); E11.622 Type 2 diabetes mellitus with other skin ulcer; M21.961 Unspecified acquired deformity of right lower leg; E66.01 Morbid (severe) obesity due to excess calories; M62.3 Immobility syndrome (paraplegic); E11.65 Type 2 diabetes mellitus with hyperglycemia; U07.1 COVID-19; E11.52 Type 2 diabetes mellitus with diabetic peripheral angiopathy with gangrene | CPT/HCPCS: 11042 ==

== ENCOUNTER → 2021-05-18 | Outpatient (CLI) | payer MEDICARE, MEDICAID | LOC: WOUNDCARE 10:06 | PROVIDERS: ATTEND Surgery | DX: U07.1 COVID-19 (principal); I96 Gangrene, not elsewhere classified; L89.154 Pressure ulcer of sacral region, stage 4; E11.622 Type 2 diabetes mellitus with other skin ulcer; M21.961 Unspecified acquired deformity of right lower leg; E66.01 Morbid (severe) obesity due to excess calories; M62.3 Immobility syndrome (paraplegic); E11.65 Type 2 diabetes mellitus with hyperglycemia; L92.8 Other granulomatous disorders of the skin and subcutaneous tissue; Z68.36 Body mass index [BMI] 36.0-36.9, adult | CPT/HCPCS: 11042 ==

== ENCOUNTER → 2021-05-25 | Outpatient (CLI) | payer MEDICARE, MEDICAID | LOC: WOUNDCARE 10:00 | PROVIDERS: ATTEND Surgery | DX: L89.154 Pressure ulcer of sacral region, stage 4 (principal); E11.622 Type 2 diabetes mellitus with other skin ulcer; M21.961 Unspecified acquired deformity of right lower leg; E66.01 Morbid (severe) obesity due to excess calories; M62.3 Immobility syndrome (paraplegic); E11.65 Type 2 diabetes mellitus with hyperglycemia; U07.1 COVID-19; L92.8 Other granulomatous disorders of the skin and subcutaneous tissue; E11.52 Type 2 diabetes mellitus with diabetic peripheral angiopathy with gangrene | CPT/HCPCS: 11042 ==

== ENCOUNTER → 2021-06-01 | Outpatient (CLI) | payer MEDICARE, MEDICAID ==
[~2021-06-01] MED LIST changes: +AMLO5TAB4 PO
== END ==
LOC: WOUNDCARE 10:02
PROVIDERS: ATTEND Surgery
DX: U07.1 COVID-19 (principal); I96 Gangrene, not elsewhere classified; L89.154 Pressure ulcer of sacral region, stage 4; E11.622 Type 2 diabetes mellitus with other skin ulcer; M21.961 Unspecified acquired deformity of right lower leg; E66.01 Morbid (severe) obesity due to excess calories; M62.3 Immobility syndrome (paraplegic); E11.65 Type 2 diabetes mellitus with hyperglycemia; L92.8 Other granulomatous disorders of the skin and subcutaneous tissue; Z68.36 Body mass index [BMI] 36.0-36.9, adult
CPT/HCPCS: 11042

== ENCOUNTER 2021-06-04 20:49 | Inpatient (IN) | payer MEDICARE, MEDICAID ==
[~2021-06-04] VITALS: Ht 172 cm; Wt 102.6 kg
[~2021-06-04 20:49] MED LIST changes: -AMLO5TAB4 PO
[2021-06-04] MEDS ORDERED: PHENAZOPYRIDINE 100 MG (PYRIDIUM) TABLET PO ONE (21:15)
[2021-06-04 21:18] LABS: BASOPHILS # (AUTO) 0.2 10^3/uL (0.0-0.1); BASOPHILS % (AUTO) 1 % (0-10); EOSINOPHILS # (AUTO) 0.3 10^3/uL (0.0-0.3); EOSINOPHILS % (AUTO) 2 % (0-10); HEMATOCRIT 38 % (35-52); HEMOGLOBIN 12.3 g/dL (11.5-16.0); LYMPHOCYTES # (AUTO) 3.1 10^3/uL (1.0-4.0); LYMPHOCYTES % (AUTO) 18 % (12-44); MEAN CORPUSCULAR HEMOGLOBIN 27 pg (25-34); MEAN CORPUSCULAR HGB CONC 32 g/dL (32-36); MEAN CORPUSCULAR VOLUME 84 fL (80-99); MEAN PLATELET VOLUME 12.7 fL (9.0-12.2); MONOCYTES % (AUTO) 6 % (0-12); NEUTROPHILS # (AUTO) 12.8 10^3/uL (1.8-7.8); NEUTROPHILS % (AUTO) 73 % (42-75); PLATELET COUNT 329 10^3/uL (130-400); WHITE BLOOD COUNT 17.6 10^3/uL (4.3-11.0)
--- NOTE | 2021-06-04 21:31 | ED GU-Female ---
General Chief Complaint: Catheter/Drain/Tube Problems Stated Complaint: CATHETER PROBLEMS / NO URINE OUTPUT Nursing Triage Note: PT ARRIVES TO ER VIA HOME WC WITH C/O CHRONIC CANNON CATH NOT DRAINING. PT STATES HER NURSE CHANGED HER CANNON TODAY IT WAS NOT DRAINING EARLIER TODAY EITHER. NURSE TOLD HER TO COME TO ER IF CANNON IS NOT DRAINING WITHIN 2 HOURS OF THE CHANGE. Source: patient Exam Limitations: no limitations History of Present Illness Date Seen by Provider: Jun 04, 2021 Time Seen by Provider: 21:28 Initial Comments To ER with reports of less urine output in her Cannon catheter bag than usual. This is been going on for about 2 days. 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 She denies fevers or chills she denies nausea or vomiting. She does have a sensation of needing to urinate. She had her Cannon catheter changed yesterday by home health but this failed to result in any increased urine output. As such she was referred to the emergency room for further evaluation. She reports that she has been drinking plenty of water and expects more urine to have come out Timing/Duration: yesterday Severity/Quality: moderate Location: suprapubic Radiation: none Activities at Onset: none, emotional stress Allergies and Home Medications Allergies Coded Allergies: chlorhexidine (Verified Allergy, Unknown, 02/06/18) codeine (Unverified Allergy, Unknown, 09/03/17) scopolamine (Verified Allergy, Unknown, 02/06/18) Home Medications Acetaminophen 500 Mg Tablet, 500 MG PO TID PRN for PAIN-MILD (1-4), (Reported) Albuterol Sulfate 18 Gm Hfa.aer.ad, 2 PUFF IH Q4H PRN for SHORTNESS OF BREATH Prescribed by: LAURYN LICONA on 11/26/20 1037 Amlodipine Besylate 5 Mg Tablet, 5 MG PO HS, (Reported) Aspirin 81 Mg Tablet.dr, 81 MG PO DAILY, (Reported) Atorvastatin Calcium 40 Mg Tablet, 40 MG PO HS, (Reported) Cholecalciferol (Vitamin D3) 50 Mcg Capsule, 50 MCG PO 1400, (Reported) Dulaglutide 1.5 Mg/0.5 Ml Pen.injctr, 1.5 MG SC WED, (Reported) Fenofibrate,Micronized 134 Mg Capsule, 134 MG PO HS, (Reported) Folic Acid 0.8 Mg Tablet, 0.8 MG PO 1400, (Reported) Furosemide 40 Mg Tablet, 40 MG PO DAILY, (Reported) Gabapentin 300 Mg Capsule, 300 MG PO 0700,1400, (Reported) Gabapentin 300 Mg Capsule, 600 MG PO HS, (Reported) TAKES 2 (300MG) CAPS Insulin Glargine,Hum.rec.anlog 100 Unit/1 Ml Insuln.pen, 30 UNIT SQ BID Prescribed by: LAURYN LICONA on 11/26/20 1037 Letrozole 2.5 Mg Tablet, 2.5 MG PO HS, (Reported) Lisinopril 40 Mg Tablet, 40 MG PO DAILY, (Reported) Magnesium Oxide 400 Mg Tablet, 400 MG PO TID, (Reported) Metoprolol Tartrate 25 Mg Tablet, 12.5 MG PO BID, (Reported) TAKES OF A 25MG TAB [place]-3 Fatty Acids/Fish Oil 1 Each Capsule, 1 EACH PO TID, (Reported) Pantoprazole Sodium 40 Mg Tablet.dr, 40 MG PO DAILY, (Reported) Patient Home Medication List Home Medication List Reviewed: Yes Review of Systems Review of Systems Constitutional: see HPI EENTM: see HPI Respiratory: no symptoms reported Cardiovascular: no symptoms reported Gastrointestinal: abdominal pain Genitourinary: no symptoms reported Musculoskeletal: no symptoms reported Skin: no symptoms reported Psychiatric/Neurological: No Symptoms Reported Past Wbrsjyq-Pnaqbw-Yanwad Hx Immunizations Up To Date Tetanus Booster (TDap): More than 5yrs Seasonal Allergies Seasonal Allergies: No Past Medical History Surgeries: Yes (LEFT BREAST MASTECTOMY, 6 LYMPH NODE REMOVED,BILAT CTR, L ULNAR NERVE, PORT) Breast, Cardiac, Coronary Stent, Gallbladder, Joint Replacement, Orthopedic, Tubal Ligation Respiratory: No Cardiac: Yes (NONSTEMI) Coronary Artery Disease, Heart Attack, High Cholesterol, Hypertension Neurological: Yes (PERIPHERAL NEUROPATHY-FEET) Neuropathy Reproductive Disorders: No Female Reproductive Disorders: Denies Sexually Transmitted Disease: No HIV/AIDS: No Genitourinary: Yes (CHRONIC RENAL INSUFFICIENCY) Bladder Infection, Kidney Stones, Renal Failure Gastrointestinal: No (S/P JENNIFER) Gall Bladder Disease Musculoskeletal: Yes Arthritis, Chronic Back Pain Endocrine: Yes Diabetes, Insulin dep HEENT: No Loss of Vision: Bilateral Hearing Impairment: Denies Cancer: Yes (LEFT BREAST CA, LYMPH NODES) Breast Did You Recieve Any Treatments: Yes What Type of Treatment Did You: Chemotherapy, Radiation, Surgical Intervention Psychosocial: No Integumentary: No Blood Disorders: Yes (ANEMIA) Adverse Reaction/Blood Tranf: No (N/A) Family Medical History Asthma G8 SISTER Cardiovascular disease 19 FATHER Diabetes mellitus G8 SISTER FH: breast cancer SISTER FH: leukemia 19 MOTHER, , Age:52 Psychosocial problem G8 SISTER No Family History of: AIDS Abdominal aortic aneurysm Greenwood's disease Alcoholism Alzheimer's disease Arthritis Cancer of mouth Colon cancer Completed stroke Dementia Drug abuse Kidney disease Myocardial infarction Parkinson's disease Prostate cancer Respiratory disorder Seizure disorder Severe allergy Thyroid disease Tuberculosis No Pertinent Family Hx Physical Exam Vital Signs Vital Signs - First Documented 06/04/21 21:04 Temp 36.7 Pulse 90 Resp 20 B/P (MAP) 139/70 (93) Pulse Ox 94 O2 Delivery Room Air Capillary Refill : Less Than 3 Seconds Height, Weight, BMI Height: 5'9.00" Weight: 230lbs. 0.0oz. [id number]; 36.00 BMI Method:Stated General Appearance: WD/WN, no apparent distress, other (Alert and oriented no distress. Very pleasant. Out of wheelchair into bed with standby assist x2. Her present Cannon catheter was removed and a new Cannon catheter was reinserted. There was still no urine output. We will start an IV and give some fluids and see if she has any urine production.) Neck: non-tender, full range of motion Respiratory: no respiratory distress, no accessory muscle use Gastrointestinal: normal bowel sounds, non tender, soft Extremities: normal range of motion, non-tender Neurologic/Psychiatric: alert, normal mood/affect, oriented x 3 Skin: normal color, warm/dry Focused Exam Lactate Level 06/04/21 21:43: Lactic Acid Level 3.67*H Lactic Acid Level Laboratory Tests Test 06/04/21 21:43 Lactic Acid Level 3.67 MMOL/L (0.50-2.00) *H Procedures/Interventions Date of ETT Placement: Nov 01, 2020 Time of ETT Placement: 624 Progress/Results/Core Measures Suspected Sepsis SIRS Temperature: Pulse: 90 Respiratory Rate: 20 Laboratory Tests 06/04/21 21:12: White Blood Count 17.6H Blood Pressure 139 /70 Mean: 93 06/04/21 21:43: Lactic Acid Level 3.67*H Laboratory Tests 06/04/21 21:12: Creatinine 2.70H, Platelet Count 329 Results/Orders Lab Results Laboratory Tests Test 06/04/21 21:12 06/04/21 21:43 Range/Units White Blood Count 17.6 H 4.3-11.0 10^3/uL Red Blood Count 4.55 3.80-5.11 10^6/uL Hemoglobin 12.3 11.5-16.0 g/dL Hematocrit 38 35-52 % Mean Corpuscular Volume 84 80-99 fL Mean Corpuscular Hemoglobin 27 25-34 pg Mean Corpuscular Hemoglobin Concent 32 32-36 g/dL Red Cell Distribution Width 15.8 H 10.0-14.5 % Platelet Count 329 130-400 10^3/uL Mean Platelet Volume 12.7 H 9.0-12.2 fL Immature Granulocyte % (Auto) 1 % Neutrophils (%) (Auto) 73 42-75 % Lymphocytes (%) (Auto) 18 12-44 % Monocytes (%) (Auto) 6 0-12 % Eosinophils (%) (Auto) 2 0-10 % Basophils (%) (Auto) 1 0-10 % Neutrophils # (Auto) 12.8 H 1.8-7.8 10^3/uL Lymphocytes # (Auto) 3.1 1.0-4.0 10^3/uL Monocytes # (Auto) 1.0 0.0-1.0 10^3/uL Eosinophils # (Auto) 0.3 0.0-0.3 10^3/uL Basophils # (Auto) 0.2 H 0.0-0.1 10^3/uL Immature Granulocyte # (Auto) 0.2 H 0.0-0.1 10^3/uL Neutrophils % (Manual) 63 % Lymphocytes % (Manual) 22 % Monocytes % (Manual) 10 % Band Neutrophils 5 % Blood Morphology Comment NORMAL Sodium Level 141 135-145 MMOL/L Potassium Level 4.7 3.6-5.0 MMOL/L Chloride Level 103 98-107 MMOL/L Carbon Dioxide Level 19 L 21-32 MMOL/L Anion Gap 19 H 5-14 MMOL/L Blood Urea Nitrogen 69 H 7-18 MG/DL Creatinine 2.70 H 0.60-1.30 MG/DL Estimat Glomerular Filtration Rate 18 BUN/Creatinine Ratio 26 Glucose Level 206 H 70-105 MG/DL Calcium Level 9.7 8.5-10.1 MG/DL Lactic Acid Level 3.67 *H 0.50-2.00 MMOL/L My Orders Orders - ERIN CRAWFORD APRN Cbc With Automated Diff (06/04/21 21:13) Basic Metabolic Panel (06/04/21 21:13) Ua Culture If Indicated (06/04/21 21:13) Ed Iv/Invasive Line Start (06/04/21 21:13) Phenazopyridine Tablet (Pyridium Tablet) (06/04/21 21:15) Lactated Ringers (Lr 1000 Ml Iv Solution (06/04/21 21:15) Manual Differential (06/04/21 21:12) Blood Culture (06/04/21 21:33) Lactic Acid Analyzer (06/04/21 21:33) Medications Given in ED Current Medications Medications Dose Ordered Sig/Josefina Route Start Time Stop Time Status Last Admin Dose Admin Phenazopyridine HCl 100 mg ONCE ONCE PO 06/04/21 21:15 06/04/21 21:16 DC 06/04/21 21:36 100 MG Vital Signs/I&O 06/04/21 21:04 Temp 36.7 Pulse 90 Resp 20 B/P (MAP) 139/70 (93) Pulse Ox 94 O2 Delivery Room Air Capillary Refill : Less Than 3 Seconds Blood Pressure Mean: 93 Departure Communication (Admissions) Spoke with Dr. Mccarty will admit on meropenem Impression Primary Impression: Sepsis Additional Impression: UTI (urinary tract infection) Disposition: ADMITTED INPATIENT Condition: Stable Admissions Decision to Admit Reason: Admit from ER (General) Decision to Admit/Date: Jun 04, 2021 Time/Decision to Admit Time: 23:04 Departure-Patient Inst. Referrals: MADINA MCCARTY DO (PCP/Family) Primary Care Physician ERIN CRAWFORD APRN Jun 04, 2021 21:31
[2021-06-04 21:32] LABS: POTASSIUM 4.7 MMOL/L (3.6-5.0)
[2021-06-04 21:33] LABS: CALCIUM 9.7 MG/DL (8.5-10.1)
[2021-06-04] MEDS: LACTATED RINGERS 1,000 ML IV SCH ×2 (21:36→23:24)
[2021-06-04 21:38] LABS: CREATININE SERUM 2.7 MG/DL (0.60-1.30)
[2021-06-04 21:55] LABS: BAND NEUTROPHILS 5 %; LYMPHOCYTES % (MANUAL) 22 %; MONOCYTES % (MANUAL) 10 %; NEUTROPHILS % (MANUAL) 63 %
[2021-06-04 21:56] LABS: RBC MORPH NORMAL
[2021-06-04] MEDS ORDERED: LACTATED RINGERS 1,000 ML IV SCH (23:15)
[2021-06-04] MEDS ORDERED: MEROPENEM 500 MG in WATER (STERILE) FOR INJECTION 10 ML IV ONE (23:15)
[2021-06-04 23:17] LABS: BILIRUBIN,URINE NEGATIVE (NEGATIVE); CLARITY,URINE CLEAR; COLOR,URINE YELLOW; GLUCOSE, URINE (UA) NEGATIVE (NEGATIVE); KETONES,URINE TRACE (NEGATIVE); LEUKOCYTE ESTERASE ,URINE 2+ (NEGATIVE); NITRITE,URINE NEGATIVE (NEGATIVE); PROTEIN,URINE 2+ (NEGATIVE)
[2021-06-04 23:29] LABS: AMORPHOUS SEDIMENT,UR FEW AMOR URATES /LPF; BACTERIA,URINE MODERATE /HPF; SQUAMOUS EPITHELIAL CELL,UR 0-2 /HPF; WBC,URINE >100 /HPF
[2021-06-05] VITALS (9 sets, daily range): BP systolic 94–142; BP diastolic 50–81
[2021-06-05] MEDS ORDERED: ACETAMINOPHEN 325 MG TABLET PO PRN (01:45)
[2021-06-05] MEDS ORDERED: ONDANSETRON 4 MG/2 ML (SDV) Z0FRAN IVP PRN (02:00)
[2021-06-05] MEDS ORDERED: HYDROcodone/APAP 5 MG/325 MG (LORTAB) TAB PO PRN (02:00)
[2021-06-05 02:24] LABS: BASOPHILS # (AUTO) 0.1 10^3/uL (0.0-0.1); BASOPHILS % (AUTO) 1 % (0-10); EOSINOPHILS # (AUTO) 0.3 10^3/uL (0.0-0.3); EOSINOPHILS % (AUTO) 2 % (0-10); HEMATOCRIT 34 % (35-52); HEMOGLOBIN 10.8 g/dL (11.5-16.0); LYMPHOCYTES # (AUTO) 2.6 10^3/uL (1.0-4.0); LYMPHOCYTES % (AUTO) 21 % (12-44); MEAN CORPUSCULAR HEMOGLOBIN 27 pg (25-34); MEAN CORPUSCULAR HGB CONC 32 g/dL (32-36); MEAN CORPUSCULAR VOLUME 87 fL (80-99); MEAN PLATELET VOLUME 12.9 fL (9.0-12.2); MONOCYTES # (AUTO) 0.7 10^3/uL (0.0-1.0); MONOCYTES % (AUTO) 5 % (0-12); NEUTROPHILS % (AUTO) 71 % (42-75); PLATELET COUNT 243 10^3/uL (130-400); WHITE BLOOD COUNT 12.7 10^3/uL (4.3-11.0)
[2021-06-05 02:37] LABS: POTASSIUM 4.2 MMOL/L (3.6-5.0)
[2021-06-05 02:38] LABS: CALCIUM 9.1 MG/DL (8.5-10.1)
[2021-06-05 02:43] LABS: CREATININE SERUM 2.22 MG/DL (0.60-1.30)
[2021-06-05] MEDS: LACTATED RINGERS 1,000 ML IV SCH ×4 (02:46→19:49)
--- NOTE | 2021-06-05 06:27 | History & Physical ---
History of Present Illness HPI/Chief Complaint Chief complaint: Complicated UTI suspected resistant organism with acute kidney injury History present illness: This is a 66-year-old white female clinic patient of mine who had a severe case of COVID-19 pneumonia with very slow recovery with residual decubitus ulcer that is improved a great deal in the buttock area who presented to the ER due to no urinary output in the indwelling Gonzales catheter maintained until decubitus ulcer is healed. Patient had the Gonzales catheter changed out by home health nurse but still no urinary output so she presented to the ER they replaced the catheter diagnosed a UTI and initiated IV fluids and currently doing much better. Home medications will be restarted. Source: patient, RN/MD, old records Exam Limitations: no limitations Date Seen 06/05/21 Time Seen by a Provider: 11:15 Attending Physician Selene Law DO PCP Selene Law DO Referring Physician Date of Admission Jun 04, 2021 at 23:00 Home Medications & Allergies Home Medications Reviewed patient Home Medication Reconciliation performed by pharmacy medication reconciliations diesel truck technician and/or nursing. Patients Allergies have been reviewed. Allergies Allergies Coded Allergies chlorhexidine (Verified Allergy, Unknown, 02/06/18) codeine (Unverified Allergy, Unknown, Nausea, 06/05/21) scopolamine (Verified Allergy, Unknown, 02/06/18) Past Kpprqez-Uvjnga-Wjemmd Hx Past Med/Social Hx: Reviewed Nursing Past Med/Soc Hx, Reviewed and Corrections made Patient Social History Marrital Status: single Employed/Student: retired Smoking Status: Former Smoker Former Smoker, Quit: Feb 06, 2015 Type Used: Cigarettes Recent Foreign Travel: No Contact w/other who traveled: No Recent Hopitalizations: No Recent Infectious Disease Expo: No Immunizations Up To Date Tetanus Booster (TDap): More than 5yrs Date of Pneumonia Vaccine: Aug 08, 2016 Seasonal Allergies Seasonal Allergies: No Past Medical History Surgeries: Breast, Cardiac, Coronary Stent, Gallbladder, Joint Replacement, Orthopedic, Tubal Ligation COVID-19 pneumonia severe Cardiac: Coronary Artery Disease, Heart Attack, High Cholesterol, Hypertension Neurological: Neuropathy Reproductive: No Sexually Transmitted Disease: No HIV/AIDS: No Female Reproductive Disorders: Denies Genitourinary: Bladder Infection, Kidney Stones, Renal Failure Gastrointestinal: Gall Bladder Disease Musculoskeletal: Arthritis, Chronic Back Pain Endocrine: Diabetes, Insulin dep Loss of Vision: Bilateral Hearing Impairment: Denies Cancer: Breast Did You Recieve Any Treatments: Yes What Type of Treatment Did You: Chemotherapy, Radiation, Surgical Intervention History of Blood Disorders: Yes (ANEMIA) Adverse Reaction to Blood Simms: No (N/A) Family History Asthma G8 SISTER Cardiovascular disease 19 FATHER Diabetes mellitus G8 SISTER FH: breast cancer SISTER FH: leukemia 19 MOTHER, , Age:52 Psychosocial problem G8 SISTER No Family History of: AIDS Abdominal aortic aneurysm Osorio's disease Alcoholism Alzheimer's disease Arthritis Cancer of mouth Colon cancer Completed stroke Dementia Drug abuse Kidney disease Myocardial infarction Parkinson's disease Prostate cancer Respiratory disorder Seizure disorder Severe allergy Thyroid disease Tuberculosis No Pertinent Family Hx Review of Systems Constitutional: see HPI, malaise, weakness Genitourinary: decreased output Physical Exam Physical Exam Vital Signs Vital Signs - First Documented 06/04/21 06/05/21 21:04 00:52 Temp 36.7 Pulse 90 Resp 20 B/P (MAP) 139/70 (93) Pulse Ox 94 O2 Delivery Room Air O2 Flow Rate 1.00 Capillary Refill : Less Than 3 Seconds Height, Weight, BMI Height: 5'9.00" Weight: 230lbs. 0.0oz. [id number]; 34.68 BMI Method:Stated General Appearance: No Apparent Distress, WD/WN, Chronically ill Eyes: Bilateral Eye Normal Inspection, Bilateral Eye PERRL HEENT: PERRL/EOMI, Normal ENT Inspection, Pharynx Normal Neck: Full Range of Motion, Normal Inspection, Non Tender, Supple, Carotid Bruit Respiratory: Chest Non Tender, Lungs Clear, Normal Breath Sounds, No Accessory Muscle Use, No Respiratory Distress Cardiovascular: Regular Rate, Rhythm, No Edema, No Gallop, No JVD, No Murmur, Normal Peripheral Pulses Gastrointestinal: Normal Bowel Sounds, No Organomegaly, No Pulsatile Mass, Non Tender, Soft Back: Normal Inspection, No CVA Tenderness, No Vertebral Tenderness Extremity: Normal Capillary Refill, Normal Inspection, Normal Range of Motion, Non Tender, No Calf Tenderness, No Pedal Edema Neurologic/Psychiatric: Alert, Oriented x3, No Motor/Sensory Deficits, Normal Mood/Affect Skin: Normal Color, Warm/Dry Lymphatic: No Adenopathy Results Results/Procedures Labs Laboratory Tests 06/04/21 21:12 06/05/21 02:10 Patient resulted labs reviewed. Assessment/Plan Admission Diagnosis Assessment: Complicated UTI suspected resistant organism due to multiple rounds of antibiotics for decubitus ulcer since severe COVID-19 survival status Severe muscle wasting wheelchair-bound due to COVID-19 residual Breast cancer Diabetes Hypertension Hyperlipidemia Acute kidney injury Dehydration with oliguria Plan: IV fluids IV antibiotics Monitor closely Restart home meds Admission Status: Inpatient Order (span 2 midnights) Reason for Inpatient Admission: Complicated UTI with resistant organism suspected with acute kidney injury Diagnosis/Problems Diagnosis/Problems (1) Urinary tract infection Status: Resolved SELENE LAW DO Jun 05, 2021 06:27
[2021-06-05 06:34] LABS: ALBUMIN 3.4 GM/DL (3.2-4.5)
[2021-06-05 06:37] LABS: TOTAL PROTEIN 6.9 GM/DL (6.4-8.2)
[2021-06-05 06:39] LABS: BILIRUBIN,TOTAL 0.2 MG/DL (0.1-1.0)
[2021-06-05 06:42] LABS: BILIRUBIN,DIRECT 0.1 MG/DL (0.0-0.3); BILIRUBIN,INDIRECT 0.1 MG/DL
[2021-06-05] MEDS: MEROPENEM 500 MG in WATER (STERILE) FOR INJECTION 10 ML IV SCH ×2 (09:37→17:01)
[2021-06-05] MEDS: ENOXAPARIN 30 MG/0.3 ML (LOVENOX) SYR SC SCH (09:37)
[2021-06-05] MEDS ORDERED: RT-ALBUTEROL SULF 2.5 MG/3 ML PRE-MIX VIAL IH PRN (12:00)
[2021-06-05] MEDS ORDERED: NON-FORMULARY MEDICATION 1 EA EA (Dulaglutide (Trulicity) 1.5 MG) SC SCH (12:00)
[2021-06-05] MEDS ORDERED: ACETAMINOPHEN 500 MG TAB (TYLENOL) PO PRN (12:00)
[2021-06-05] MEDS: inSUlin ASPART (NovoLOG) 1 UNIT/0.01 ML (CHARGE PER UNIT) SC SCH ×3 (12:01→20:32)
[2021-06-05] MEDS ORDERED: NON-FORMULARY MEDICATION 1 EA EA (Omega-3 Fatty Acids/Fish Oil (Fish Oil 1,200 mg Softgel) PO SCH (13:00)
[2021-06-05] MEDS ORDERED: NON-FORMULARY MEDICATION 1 EA EA (Magnesium Oxide 400 MG) PO SCH (13:00)
[2021-06-05] MEDS: VITAMIN D3 25 MCG (1,000 UNITS) TABLET PO SCH (13:32)
[2021-06-05] MEDS: OMEGA 3 (FISH OIL) 1000 MG CAP PO SCH ×2 (13:32→17:01)
[2021-06-05] MEDS: GABAPENTIN 300 MG (NEURONTIN) CAP PO SCH (13:32)
[2021-06-05] MEDS: NS IV 1000 ML 1,000 ML IV SCH (13:32)
[2021-06-05] MEDS: FOLIC ACID 1 MG TAB PO SCH (13:32)
[2021-06-05] MEDS: MAGNESIUM OXIDE (MAG-OX)400 MG TAB PO SCH ×2 (13:32→17:01)
[2021-06-05] MEDS ORDERED: NON-FORMULARY MEDICATION 1 EA EA (Folic Acid 0.8 MG) PO SCH (14:00)
[2021-06-05] MEDS ORDERED: NON-FORMULARY MEDICATION 1 EA EA (Cholecalciferol (Vitamin D3) (D3-2000) 50 MCG) PO SCH (14:00)
[2021-06-05] MEDS ORDERED: LORATADINE (CLARITIN) 10 MG TAB ONE (17:13)
[2021-06-05] MEDS: LORATADINE (CLARITIN) 10 MG TAB PO SCH (17:22)
[2021-06-05] MEDS: meTOprolol TARTRATE 25 MG (LOPRESSOR) TABLET PO SCH (20:57)
[2021-06-05] MEDS ORDERED: NON-FORMULARY MEDICATION 1 EA EA (Insulin Glargine,Hum.rec.anlog (Lantus Solostar) 30 UNIT SQ SCH (21:00)
[2021-06-05] MEDS ORDERED: LETROZOLE 2.5 MG (FEMARA) TAB PO SCH (21:00)
[2021-06-05] MEDS ORDERED: GABAPENTIN 300 MG (NEURONTIN) CAP PO SCH (21:00)
[2021-06-05] MEDS ORDERED: FENOFIBRATE 134 MG (LOFIBRA) CAPSULE PO SCH (21:00)
[2021-06-06 00:13] VITALS: BP 130/55
[2021-06-06] MEDS: MEROPENEM 500 MG in WATER (STERILE) FOR INJECTION 10 ML IV SCH ×2 (00:21→06:22)
[2021-06-06] MEDS: NS IV 1000 ML 1,000 ML IV SCH ×2 (00:22→03:19)
[2021-06-06 03:16] VITALS: BP 139/63
[2021-06-06 04:19] LABS: BASOPHILS # (AUTO) 0.1 10^3/uL (0.0-0.1); BASOPHILS % (AUTO) 1 % (0-10); EOSINOPHILS # (AUTO) 0.3 10^3/uL (0.0-0.3); EOSINOPHILS % (AUTO) 5 % (0-10); HEMATOCRIT 34 % (35-52); HEMOGLOBIN 10.8 g/dL (11.5-16.0); LYMPHOCYTES # (AUTO) 1.9 10^3/uL (1.0-4.0); LYMPHOCYTES % (AUTO) 27 % (12-44); MEAN CORPUSCULAR HEMOGLOBIN 27 pg (25-34); MEAN CORPUSCULAR HGB CONC 32 g/dL (32-36); MEAN CORPUSCULAR VOLUME 87 fL (80-99); MEAN PLATELET VOLUME 12.8 fL (9.0-12.2); MONOCYTES # (AUTO) 0.4 10^3/uL (0.0-1.0); MONOCYTES % (AUTO) 6 % (0-12); NEUTROPHILS # (AUTO) 4.3 10^3/uL (1.8-7.8); NEUTROPHILS % (AUTO) 60 % (42-75); PLATELET COUNT 195 10^3/uL (130-400); WHITE BLOOD COUNT 7.1 10^3/uL (4.3-11.0)
[2021-06-06 04:26] LABS: ALBUMIN 3.2 GM/DL (3.2-4.5); POTASSIUM 4.2 MMOL/L (3.6-5.0)
[2021-06-06 04:28] LABS: CALCIUM 9.3 MG/DL (8.5-10.1)
[2021-06-06 04:29] LABS: TOTAL PROTEIN 6.8 GM/DL (6.4-8.2)
[2021-06-06 04:30] LABS: BILIRUBIN,TOTAL 0.2 MG/DL (0.1-1.0)
[2021-06-06 04:32] LABS: CREATININE SERUM 1.38 MG/DL (0.60-1.30)
[2021-06-06] MEDS: inSUlin ASPART (NovoLOG) 1 UNIT/0.01 ML (CHARGE PER UNIT) SC SCH ×2 (06:19→12:05)
[2021-06-06] MEDS: GABAPENTIN 300 MG (NEURONTIN) CAP PO SCH ×2 (06:20→14:03)
[2021-06-06 07:56] VITALS: BP 156/67
[2021-06-06] MEDS ORDERED: FUROSEMIDE 40 MG (LASIX) TAB PO SCH (09:00)
[2021-06-06] MEDS ORDERED: PANTOPRAZOLE 40 MG (PROTONIX) TAB PO SCH (09:00)
[2021-06-06] MEDS ORDERED: lisINopril 40 MG (PRINIVIL) TABLET PO SCH (09:00)
[2021-06-06] MEDS ORDERED: ASPIRIN E.C. 81 MG (ECOTRIN) TAB PO SCH (09:00)
[2021-06-06] MEDS: ENOXAPARIN 30 MG/0.3 ML (LOVENOX) SYR SC SCH (09:59)
[2021-06-06] MEDS: meTOprolol TARTRATE 25 MG (LOPRESSOR) TABLET PO SCH (10:00)
[2021-06-06] MEDS: OMEGA 3 (FISH OIL) 1000 MG CAP PO SCH ×2 (10:00→14:00)
[2021-06-06] MEDS: MAGNESIUM OXIDE (MAG-OX)400 MG TAB PO SCH ×2 (10:01→14:00)
[2021-06-06] MEDS: LORATADINE (CLARITIN) 10 MG TAB PO SCH (10:01)
[2021-06-06] MEDS ORDERED: FURO40TA4 PO (10:56)
[2021-06-06] MEDS ORDERED: AMLO5TAB4 PO (10:58)
--- NOTE | 2021-06-06 10:59 | D/C HH Face to Face Order ---
D/C Face to Face Orders Reconcile Patient Problems Problems Reviewed?: Yes Instructions for Patient Via [facility], Patient Instructions/FollowUp: Dr Law/Esperanza Gibson in 1 week Physician to follow Patient: Ani Discharge Diet for Home: ADA Diet Patient Problems: Kidney failure Debility Decubitus ulcer Indwelling catheter Patient Data-Allergies,Ht & Wt Patient Allergies: Coded Allergies: chlorhexidine (Verified Allergy, Unknown, 02/06/18) codeine (Unverified Allergy, Unknown, Nausea, 06/05/21) scopolamine (Verified Allergy, Unknown, 02/06/18) Height (Feet): 5 Height (Inches): 9.00 Weight (Pounds): 230 Weight (Ounces): 0.0 Home Health Need/Face to Face Date of Face to Face: Jun 06, 2021 Clinical Findings: Generalized weakness and fatigue, Instability, Muscle weakness, Non or partial weight bearing, Pain with ambulation, Unsteady gait, Non-healing wound I have seen Pt [id number]: Yes Discharged To: Home Diagnosis/Conditions: Kidney failure Debility Decubitus ulcer Indwelling catheter Patient is Homebound due to: Laura fall risk due to instabilty, Muscle weakness Homebound Status Due to the above stated illness, injury or surgical procedure (medical condition or diagnosis) and associated clinical findings, the patient is homebound because of his/her inability to leave home except with aid of a supportive device and/or person AND leaving the home requires a considerable and taxing effort or is medically contraindicated. Pt req the following assistanc: Walker, Wheelchair Home Health Nursing Orders Home Health Services Order: Nursing Services, Noc Technician-Evaluate & Treat, Physical Therapy-Evaluate & Treat, Wound Care-Eval/Treat Home Health Infusion Therapy Line Start Date: Jun 04, 2021 Certify Stmt I certify that this patient is under my care and that I, a nurse practitioner or a physician; a cosmetic sales assistant working with me, had a face to face encounter that - meets the physician face to face encounter requirements with this patient as dated. MADINA LAW DO Jun 06, 2021 10:59
--- NOTE | 2021-06-06 11:00 | Discharge Summary ---
Diagnosis/Chief Complaint Date of Admission Jun 04, 2021 at 23:00 Date of Discharge Discharge Date: Jun 06, 2021 Discharge Diagnosis Assessment: Complicated UTI suspected resistant organism due to multiple rounds of antibiotics for decubitus ulcer since severe COVID-19 survival status Severe muscle wasting wheelchair-bound due to COVID-19 residual Breast cancer Diabetes Hypertension Hyperlipidemia Acute kidney injury Dehydration with oliguria Plan: IV fluids IV antibiotics Monitor closely Restart home meds Discharge Summary Discharge Physical Examination Allergies: Coded Allergies: chlorhexidine (Verified Allergy, Unknown, 02/06/18) codeine (Unverified Allergy, Unknown, Nausea, 06/05/21) scopolamine (Verified Allergy, Unknown, 02/06/18) Vitals & I&Os Vital Signs Date Time Temp Pulse Resp B/P (MAP) Pulse Ox O2 Delivery O2 Flow Rate FiO2 06/06/21 13:37 36.3 60 16 161/71 94 Room Air 1.00 General Appearance: Alert, Oriented X3, Cooperative Respiratory: Clear to Auscultation Cardiovascular: Regular Rate Neuro: Strength at 5/5 X4 Ext (Except lower extremities) Psych/Mental Status: Mental Status NL Hospital Course Was the Problem List Reviewed?: Yes Hospital Course: Pt had an uneventful hospital course. She was admitted for oliguria and what was assumed to be a UTI due to indwelling catheter due to de cubitus ulcer healing process. She was placed on Meropenem due to high risk for resistant organisms. She was given IV fluids and those were decreased and she was supported with home medications, wound care, PT and OT, fitting golf an AFO on the right leg. Overall her creatinine went form 2.7 to 1.3, urine culture was no growth to date, did not require any type of antibiotic. We will do home PT and OT and continue wound care. Labs (last 24 hrs) Laboratory Tests 06/04/21 21:12: White Blood Count 17.6H, Red Blood Count 4.55, Hemoglobin 12.3, Hematocrit 38, Mean Corpuscular Volume 84, Mean Corpuscular Hemoglobin 27, Mean Corpuscular Hemoglobin Concent 32, Red Cell Distribution Width 15.8H, Platelet Count 329, Mean Platelet Volume 12.7H, Immature Granulocyte % (Auto) 1, Neutrophils (%) (Auto) 73, Lymphocytes (%) (Auto) 18, Monocytes (%) (Auto) 6, Eosinophils (%) (Auto) 2, Basophils (%) (Auto) 1, Neutrophils # (Auto) 12.8H, Lymphocytes # (Auto) 3.1, Monocytes # (Auto) 1.0, Eosinophils # (Auto) 0.3, Basophils # (Auto) 0.2H, Immature Granulocyte # (Auto) 0.2H, Neutrophils % (Manual) 63, Lymphocytes % (Manual) 22, Monocytes % (Manual) 10, Band Neutrophils 5, Blood Morphology Comment NORMAL, Sodium Level 141, Potassium Level 4.7, Chloride Level 103, Carbon Dioxide Level 19L, Anion Gap 19H, Blood Urea Nitrogen 69H, Creatinine 2.70H, Estimat Glomerular Filtration Rate 18, BUN/Creatinine Ratio 26, Glucose Level 206H, Calcium Level 9.7 06/04/21 21:43: Lactic Acid Level 3.67*H 06/04/21 22:52: Urine Color YELLOW, Urine Clarity CLEAR, Urine pH 5.0, Urine Specific [place] 1.025H, Urine Protein 2+H, Urine Glucose (UA) NEGATIVE, Urine Ketones TRACEH, Urine Nitrite NEGATIVE, Urine Bilirubin NEGATIVE, Urine Urobilinogen 0.2, Urine Leukocyte Esterase 2+H, Urine RBC (Auto) 1+H, Urine RBC 2-5H, Urine WBC >100H, Urine Squamous Epithelial Cells 0-2, Urine Crystals PRESENTH, Urine Amorphous Sediment FEW MARIBEL URATESH, Urine Bacteria MODERATEH, Urine Casts PRESENT, Urine Hyaline Casts 2-5H, Urine Mucus SMALLH, Urine Culture Indicated YES 06/04/21 23:35: Lactic Acid Level 2.59*H 06/05/21 02:10: White Blood Count 12.7H, Red Blood Count 3.94, Hemoglobin 10.8L, Hematocrit 34L, Mean Corpuscular Volume 87, Mean Corpuscular Hemoglobin 27, Mean Corpuscular Hemoglobin Concent 32, Red Cell Distribution Width 15.9H, Platelet Count 243, Mean Platelet Volume 12.9H, Immature Granulocyte % (Auto) 1, Neutrophils (%) (Auto) 71, Lymphocytes (%) (Auto) 21, Monocytes (%) (Auto) 5, Eosinophils (%) (Auto) 2, Basophils (%) (Auto) 1, Neutrophils # (Auto) 9.0H, Lymphocytes # (Auto ) 2.6, Monocytes # (Auto) 0.7, Eosinophils # (Auto) 0.3, Basophils # (Auto) 0.1, Immature Granulocyte # (Auto) 0.1, Sodium Level 141, Potassium Level 4.2, Chloride Level 106, Carbon Dioxide Level 17L, Anion Gap 18H, Blood Urea Nitrogen 65H, Creatinine 2.22H, Estimat Glomerular Filtration Rate 22, BUN/Creatinine Ratio 29, Glucose Level 249H, Lactic Acid Level 1.76, Calcium Level 9.1, Total Bilirubin 0.2, Direct Bilirubin 0.1, Indirect Bilirubin 0.1, Aspartate Amino Transf (AST/SGOT) 21, Alanine Aminotransferase (ALT/SGPT) 22, Alkaline Phosphatase 33L, Total Protein 6.9, Albumin 3.4 06/05/21 11:59: Glucometer 181H 06/05/21 15:53: Glucometer 206H 06/05/21 20:13: Glucometer 296H 06/06/21 04:10: White Blood Count 7.1, Red Blood Count 3.95, Hemoglobin 10.8L, Hematocrit 34L, Mean Corpuscular Volume 87, Mean Corpuscular Hemoglobin 27, Mean Corpuscular Hemoglobin Concent 32, Red Cell Distribution Width 15.5H, Platelet Count 195, Mean Platelet Volume 12.8H, Immature Granulocyte % (Auto) 2, Neutrophils (%) (Auto) 60, Lymphocytes (%) (Auto) 27, Monocytes (%) (Auto) 6, Eosinophils (%) (Auto) 5, Basophils (%) (Auto) 1, Neutrophils # (Auto) 4.3, Lymphocytes # (Auto) 1.9, Monocytes # (Auto) 0.4, Eosinophils # (Auto) 0.3, Basophils # (Auto) 0.1, Immature Granulocyte # (Auto) 0.1, Sodium Level 140, Potassium Level 4.2, Chloride Level 111H, Carbon Dioxide Level 21, Anion Gap 8, Blood Urea Nitrogen 45H, Creatinine 1.38H, Estimat Glomerular Filtration Rate 38, BUN/Creatinine Ratio 33, Glucose Level 202H, Calcium Level 9.3, Corrected Calcium 9.9, Total Bilirubin 0.2, Aspartate Amino Transf (AST/SGOT) 20, Alanine Aminotransferase (ALT/SGPT) 22, Alkaline Phosphatase 34L, Total Protein 6.8, Albumin 3.2 06/06/21 11:29: Glucometer 217H Microbiology 06/04/21 Urine Culture - Final, Complete NO GROWTH 06/04/21 Blood Culture - Preliminary, Resulted No growth Pending Labs Microbiology Date/Time Source Procedure Growth Status 06/04/21 22:52 Urine U Cath,Nos Urine Culture - Final NO GROWTH Complete 06/04/21 22:02 Peripheral Rt Hand Blood Culture - Preliminary No growth Resulted 06/04/21 21:43 Peripheral Rt Ac Blood Culture - Preliminary Staph, Coag Neg (GROUP CONTROLLER) See Comments Resulted Laboratory Tests 06/04/21 21:12: White Blood Count 17.6, Red Blood Count 4.55, Hemoglobin 12.3, Hematocrit 38, Mean Corpuscular Volume 84, Mean Corpuscular Hemoglobin 27, Mean Corpuscular Hemoglobin Concent 32, Red Cell Distribution Width 15.8, Platelet Count 329, Mean Platelet Volume 12.7, Immature Granulocyte % (Auto) 1, Neutrophils (%) (Auto) 73, Lymphocytes (%) (Auto) 18, Monocytes (%) (Auto) 6, Eosinophils (%) (Auto) 2, Basophils (%) (Auto) 1, Neutrophils # (Auto) 12.8, Lymphocytes # (Auto) 3.1, Monocytes # (Auto) 1.0, Eosinophils # (Auto) 0.3, Basophils # (Auto) 0.2, Immature Granulocyte # (Auto) 0.2, Neutrophils % (Manual) 63, Lymphocytes % (Manual) 22, Monocytes % (Manual) 10, Band Neutrophils 5, Blood Morphology Comment NORMAL, Sodium Level 141, Potassium Level 4.7, Chloride Level 103, Carbon Dioxide Level 19, Anion Gap 19, Blood Urea Nitrogen 69, Creatinine 2.70, Estimat Glomerular Filtration Rate 18, BUN/Creatinine Ratio 26, Glucose Level 206, Calcium Level 9.7 06/04/21 21:43: Lactic Acid Level 3.67 06/04/21 22:52: Urine Color YELLOW, Urine Clarity CLEAR, Urine pH 5.0, Urine Specific [place] 1.025, Urine Protein 2+, Urine Glucose (UA) NEGATIVE, Urine Ketones TRACE, Urine Nitrite NEGATIVE, Urine Bilirubin NEGATIVE, Urine Urobilinogen 0.2, Urine Leukocyte Esterase 2+, Urine RBC (Auto) 1+, Urine RBC 2-5, Urine WBC >100, Urine Squamous Epithelial Cells 0-2, Urine Crystals PRESENT, Urine Amorphous Sediment FEW MAR[place]EL URATES, Urine Bacteria MODERATE, Urine Casts PRESENT, Urine Hyaline Casts 2-5, Urine Mucus SMALL, Urine Culture Indicated YES 06/04/21 23:35: Lactic Acid Level 2.59 06/05/21 02:10: White Blood Count 12.7, Red Blood Count 3.94, Hemoglobin 10.8, Hematocrit 34, Mean Corpuscular Volume 87, Mean Corpuscular Hemoglobin 27, Mean Corpuscular Hemoglobin Concent 32, Red Cell Distribution Width 15.9, Platelet Count 243, Mean Platelet Volume 12.9, Immature Granulocyte % (Auto) 1, Neutrophils (%) (Auto) 71, Lymphocytes (%) (Auto) 21, Monocytes (%) (Auto) 5, Eosinophils (%) (Auto) 2, Basophils (%) (Auto) 1, Neutrophils # (Auto) 9.0, Lymphocytes # (Auto) 2.6, Monocytes # (Auto) 0.7, Eosinophils # (Auto) 0.3, Basophils # (Auto) 0.1, Immature Granulocyte # (Auto) 0.1, Sodium Level 141, Potassium Level 4.2, Chloride Level 106, Carbon Dioxide Level 17, Anion Gap 18, Blood Urea Nitrogen 65, Creatinine 2.22, Estimat Glomerular Filtration Rate 22, BUN/Creatinine Ratio 29, Glucose Level 249, Lactic Acid Level 1.76, Calcium Level 9.1, Total Bilirubin 0.2, Direct Bilirubin 0.1, Indirect Bilirubin 0.1, Aspartate Amino Transf (AST/SGOT) 21, Alanine Aminotransferase (ALT/SGPT) 22, Alkaline Phosphatase 33, Total Protein 6.9, Albumin 3.4 06/05/21 11:59: Glucometer 181 06/05/21 15:53: Glucometer 206 06/05/21 20:13: Glucometer 296 06/06/21 04:10: White Blood Count 7.1, Red Blood Count 3.95, Hemoglobin 10.8, Hematocrit 34, Mean Corpuscular Volume 87, Mean Corpuscular Hemoglobin 27, Mean Corpuscular Hemoglobin Concent 32, Red Cell Distribution Width 15.5, Platelet Count 195, Mean Platelet Volume 12.8, Immature Granulocyte % (Auto) 2, Neutrophils (%) (Auto) 60, Lymphocytes (%) (Auto) 27, Monocytes (%) (Auto) 6, Eosinophils (%) (Auto) 5, Basophils (%) (Auto) 1, Neutrophils # (Auto) 4.3, Lymphocytes # (Auto) 1.9, Monocytes # (Auto) 0.4, Eosinophils # (Auto) 0.3, Basophils # (Auto) 0.1, Immature Granulocyte # (Auto) 0.1, Sodium Level 140, Potassium Level 4.2, Chloride Level 111, Carbon Dioxide Level 21, Anion Gap 8, Blood Urea Nitrogen 45, Creatinine 1.38, Estimat Glomerular Filtration Rate 38, BUN/Creatinine Ratio 33, Glucose Level 202, Calcium Level 9.3, Corrected Calcium 9.9, Total Bilirubin 0.2, Aspartate Amino Transf (AST/SGOT) 20, Alanine Aminotransferase (ALT/SGPT) 22, Alkaline Phosphatase 34, Total Protein 6.8, Albumin 3.2 06/06/21 11:29: Glucometer 217 Discharge Home Medications: Active Scripts Active Norvasc (Amlodipine Besylate) 5 Mg Tablet 5 Mg PO DAILY Furosemide 40 Mg Tablet 40 Mg PO Q48H 30 Days Ventolin Hfa (Albuterol Sulfate) 18 Gm Hfa.aer.ad 2 Puff IH Q4H PRN Lantus Solostar (Insulin Glargine,Hum.rec.anlog) 100 Unit/1 Ml Insuln.pen 30 Unit SQ BID Reported Atorvastatin Calcium 40 Mg Tablet 40 Mg PO HS Trulicity (Dulaglutide) 1.5 Mg/0.5 Ml Pen.injctr 1.5 Mg SC WED Pantoprazole Sodium 40 Mg Tablet.dr 40 Mg PO DAILY Neurontin (Gabapentin) 300 Mg Capsule 600 Mg PO HS TAKES 2 (300MG) CAPS Neurontin (Gabapentin) 300 Mg Capsule 300 Mg PO 0700,1400 D3-2000 (Cholecalciferol (Vitamin D3)) 50 Mcg Capsule 50 Mcg PO 1400 Fish Oil 1,200 mg Softgel (Tanner-3 Fatty Acids/Fish Oil) 1 Each Capsule 1 Each PO TID Magnesium Oxide 400 Mg Tablet 400 Mg PO TID Fenofibrate (Fenofibrate,Micronized) 134 Mg Capsule 134 Mg PO HS Metoprolol Tartrate 25 Mg Tablet 12.5 Mg PO BID TAKES OF A 25MG TAB Acetaminophen 500 Mg Tablet 500 Mg PO TID PRN Folic Acid 0.8 Mg Tablet 0.8 Mg PO 1400 Aspirin EC (Aspirin) 81 Mg Tablet.dr 81 Mg PO DAILY Letrozole 2.5 Mg Tablet 2.5 Mg PO HS Instructions to patient/family Please see electronic discharge instructions given to patient. Diagnosis/Problems Diagnosis/Problems (1) Urinary tract infection Status: Resolved MADINA MCCARTY DO Jun 06, 2021 11:00
[2021-06-06] MEDS ORDERED: amLODIPine 5 MG (NORVASC) TAB PO ONE (11:15)
[2021-06-06 11:29] VITALS: BP 161/71
--- NOTE | 2021-06-06 12:06 | Physical Therapy Evaluation ---
PT Evaluation-General Medical Diagnosis Admission Date Jun 04, 2021 at 23:00 Medical Diagnosis: UTI/sepsis Onset Date: Jun 04, 2021 Therapy Diagnosis Therapy Diagnosis: debility/weakness Height/Weight Height (Feet): 5 Height (Inches): 9.00 Weight (Pounds): 230 Weight (Ounces): 0.0 Precautions Precautions/Isolations: Standard Precautions Referral Physician: Ani Reason for Referral: Evaluation/Treatment Medical History Pertinent Medical History: Breast CA S/P Mastectomy, CAD, DM, HTN, [place], Neuropathy, Renal Insufficiency, Smoking Additional Medical History post covid Current History ER secondary to decreased urine output in catheter. Reviewed History: Yes Social History Home: Single Level Current Living Status: Children Prior Prior Level of Function SCALE: Activities may be completed with or without assistive devices. 7-Wterbrlubs-qdcgipk completes the activity by him/herself with no assistance from a helper. 5-Set-up or Clean-up Assistance-helper sets up or cleans up; patient completes activity. [place] assists only prior to or following the activity. 4-Supervision or Touching Assistance-helper provides verbal cues and/or touchi ng/steadying and/or contact guard assistance as patient completes activity. Assistance may be provided throughout the activity or intermittently. 3-Partial/Moderate Assistance-helper does LESS THAN HALF the effort. [place] lifts, holds or supports trunk or limbs, but provides less than half the effort. 2-Substantial/Maximal Assistance-helper does MORE THAN HALF the effort. [place] lifts or holds trunk or limbs and provides more than half the effort. 2-Vfekadyga-ksmlvt does ALL the effort. Patient does none of the effort to complete the activity. Or, the assistance of 2 or more helpers is required for the patient to complete the activity. If activity was not attempted, code reason: 7-Patient Refused. 9-Not Applicable-not attempted and the patient did not perform the activity before the current illness, exacerbation or injury. 10-Not Attempted due to Environmental Limitations-(lack of equipment, weather restraints, etc.). 88-Not Attempted due to Medical Conditions or Safety Concerns. Bed Mobility: 6 Transfers (B,C,W/C): 6 Gait: 6 Stairs: 9 Wheelchair Mobility: 6 Indoor Mobility (Ambulation): Independent Stairs: Not Applicalbe Prior Devices Use: Manual wheelchair, Walker PT Evaluation-Current Subjective Patient agrees to PT. Objective Patient Orientation: Normal For Age ROM/Strength ROM Lower Extremities right ankle plantarflexion contracture, knee flexion/extension WFL/left LE WFL Strength Lower Extremities 3+/5 grossly bilateral LE with exception of right ankle Integumentary/Posture Bladder Incontinence: Gonzalse Cath Posture WFL Neuromuscular (Tone, Coordination, Reflexes) grossly intact Sensory Vision: Wears Glasses Hearing: Functional Sensation Right Lower Extremit: Impaired Sensation Left Lower Extremity: Impaired Transfers Roll Left to Right (QC): 6 Sit to Lying (QC): 6 Lying to Sitting/Side of Bed(Q: 6 Sit to Stand (QC): 4 Chair/Ixa-du-Evqnd Xfer(QC): 4 Gait Mode of Locomotion: Both Anticipated Mode of Locomotion: Both Gait Assistive Device: FWW Wheelchair Training Does the Pt Use a Wheelchair?: Yes Type of Wheelchair: Manual Balance Sitting Static: Normal Sitting Dynamic: Normal Standing Static: Normal Standing Dynamic: Normal Assessment/Needs Due to DM with neuropathy, right ankle plantarflexion contracture and diabetic foot/toes, this PT recommends patient refer to an Aviation Safety Technician for custom AFO with diabetic shoes. Patient currently does not have appropriate shoes for an orthotic. Patient is also at an increase risk for skin compromise with an "off the shelf" AFO. Horse Show Manager and SW notified and will notify physician. Patient voices understanding and is motivated with plan. Rehab Potential: Fair PT Plan Treatment/Plan Treatment Plan: Discontinue PT Treatment Duration: Jun 06, 2021 Frequency: 1 time per week Estimated Hrs Per Day: .5 hour per day Patient and/or Family Agrees t: Yes Time/GCodes Time In: 1133 Time Out: 1155 Total Billed Treatment Time: 22 Total Billed Treatment 1 visit EVMod 22 min ROSS DIAZ PT Jun 06, 2021 12:06
--- NOTE | 2021-06-06 13:27 | Occupational Therapy Eval ---
OT Evaluation-General/PLF Medical Diagnosis Admission Date Jun 04, 2021 at 23:00 Medical Diagnosis: UTI/sepsis Onset Date: Jun 04, 2021 Therapy Diagnosis Therapy Diagnosis: decreased ADL status Height/Weight Height (Feet): 5 Height (Inches): 9.00 Weight (Pounds): 230 Weight (Ounces): 0.0 Precautions Precautions/Isolations: Standard Precautions Referral Physician: Ani Referral Reason: Evaluation/Treatment Medical History Pertinent Medical History: Breast CA S/P Mastectomy, CAD, DM, HTN, [place], Neuropathy, Renal Insufficiency, Smoking Additional Medical History COVID-19 pneumonia, arthritis Current History ED due to no urinary output in indwelling goncalves catheter. Pt receives home health nursing for decubitus ulcer. Social History Home: Single Level Current Living Status: Children ADL-Prior Level of Function SCALE: Activities may be completed with or without assistive devices. 8-Hyoizkxyqf-cmhfdnn completes the activity by him/herself with no assistance from a helper. 5-Set-up or Clean-up Assistance-helper sets up or cleans up; patient completes activity. [place] assists only prior to or following the activity. 4-Supervision or Touching Assistance-helper provides verbal cues and/or touching/steadying and/or contact guard assistance as patient completes activity. Assistance may be provided throughout the activity or intermittently. 3-Partial/Moderate Assistance-helper does LESS THAN HALF the effort. [place] lift s, holds or supports trunk or limbs, but provides less than half the effort. 2-Substantial/Maximal Assistance-helper does MORE THAN HALF the effort. [place] lifts or holds trunk or limbs and provides more than half the effort. 2-Vlpbqapwh-mnusmh does ALL the effort. Patient does none of the effort to complete the activity. Or, the assistance of 2 or more helpers is required for the patient to complete the activity. If activity was not attempted, code reason: 7-Patient Refused. 9-Not Applicable-not attempted and the patient did not perform the activity before the current illness, exacerbation or injury. 10-Not Attempted due to Environmental Limitations-(lack of equipment, weather restraints, etc.). 88-Not Attempted due to Medical Conditions or Safety Concerns. ADL PLOF Comments Pt reports she has assistance with ADLs and functional mobility at [facility]. She is able to use walker within her house as long as someone follows her with a wheelchair. 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 She has a BSC in her room for urgency in case she doesn't think she can make it into the bathroom. She has home health assistance throughout each day, assistance getting in/out of shower and with completing shower. She lives with 2 sons, 1 works during the day, the other is home throughout the day. Self Care: Needed Some Help DME/Equipment: Bedside Commode OT Current Status Subjective Pt laying in bed, agreeable to OT evaluation. Pt states she is ready to discharge. 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 LUE grossly WFL. Upper Extremity Coordination WFL Upper Extremity Sensation grossly 3/5 ADL-Treatment Eating (QC): 6 (IND with lunch) Other Treatments Pt laying in bed, agreeable to OT evaluation. Pt indicates her daughter should arrive within the hour to take her home. Pt familiar with OT, as she had therapy at SNF, and some home health OT this year. She indicates her home health OT assisted her with problem solving how to get into/out of the tub, and worked on her shoulder function. Pt indicates she is not currently receiving home health therapy, but has home health nursing and in home assistance. Pt IND with eating lunch, declined need to toilet or complete other ADLs at this time. OT educated pt on energy conservation techniques upon returning home. OT demonstrated various exercises for pt to complete including shoulder flexion, elbow flexion/extension and finger flexion/extension, she verbalized understanding. Per PT report, pt independent with sit to/from supine, and QC 4 for sit to/from stand an dbed to/from chair transfer. Post tx, pt laying in bed, call light in reach and all needs met. Education OT Patient Education: Correct positioning, Energy conservation, Exercise program, Modified ADL techniques, Progress toward Goal/Update tx plan, Purpose of tx/functional activities, Rehab process Teaching Recipient: Patient Teaching Methods: Discussion Response to Teaching: Verbalize Understanding OT [facility] Goals Respiratory Medicine Physician Goals Time Frame: Jun 10, 2021 Eating (QC): 6 Oral Hygiene (QC): 6 Toileting Hygiene (QC): 4 Shower/Bathe Self (QC): 3 Upper Body Dressing (QC): 4 Lower Body Dressing (QC): 3 On/Off Footwear (QC): 3 Additional Goals: 1-Demonstrate ADL Tasks, 2-Verbalize Understanding, 3- ImproveStrength/Earnestine 1=Demonstrate adherence to instructed precautions during ADL tasks. 2=Patient will verbalize/demonstrate understanding of assistive devices/modifications for ADL. 3=Patient will improve strength/tolerance for activity to enable patient to perform ADL's. OT Education/Plan Problem List/Assessment Assessment: Decreased Activ Tolerance, Decreased UE Strength, Impaired Funct Balance, Impaired I ADL's, Impaired Self-Care Skills, Restricted Funct UE ROM Discharge Recommendations Plan/Recommendations: Continue POC Treatment Plan/Plan of Care Patient would benefit from OT for education, treatment and training to promote independence in ADL's, mobility, safety and/or upper extremity function for ADL's. Plan of Care: ADL Retraining, Functional Mobility, UE Funct Exercise/Act Treatment Duration: Jun 10, 2021 Frequency: 5 times per week Estimated Hrs Per Day: .25 hour per day Rehab Potential: Fair Time/GCodes Start Time: 13:00 Stop Time: 13:15 Total Time Billed (hr/min): 15 Billed Treatment Time 1, TEVIN CORBETT OT Jun 06, 2021 13:27
[2021-06-06 13:37] VITALS: BP 161/71
--- NOTE | 2021-06-06 13:45 | Progress Note ---
SADA ARNOLD 06/06/21 1345: Progress Note 66yo F with PMH of COVID-19 pneumonia and residual decubitus ulcer had 2 days of decreased urine output in her Gonzales catheter bag and was referred to the ER where they replaced her catheter, initiated IV Fluids, and a diagnosis of UTI with acute kidney injury. Pt seems to be in stable condition and denies any other complaints other than her ulcer. Denies fever, chills, vomiting, diarrhea, or chest pain. Pt to be discharged home this afternoon with home PT/OT, AFO, and wound care. SELENE MCCARTY DO 06/07/21 0602: Supervisory-Addendum Brief Verification & Attestation Participated in pt care: history, MDM, physical Personally performed: exam, history, MDM, supervision of care Care discussed with: Medical Student Procedures: n/a Results interpretation: Verified all documentation Verification and Attestation of Medical Student E/M Service A medical student performed and documented this service in my presence. I reviewed and verified all information documented by the medical student and made modifications to such information, when appropriate. I personally performed the physical exam and medical decision making. Sleene Mccarty, Jun 07, 2021,06:02 SADA ARNOLD Jun 06, 2021 13:45 SELENE MCCARTY DO Jun 07, 2021 06:02
[2021-06-06] MEDS: FOLIC ACID 1 MG TAB PO SCH (14:00)
[2021-06-06] MEDS: VITAMIN D3 25 MCG (1,000 UNITS) TABLET PO SCH (14:01)
--- NOTE | 2021-06-08 08:33 | Physician Query Clarification ---
PQ-Uncertain Diagnosis Admission/Discharge Admission Date: Jun 04, 2021 at 23:00 Discharge Date: Jun 06, 2021 at 14:30 Dr. Law, The medical record reflects the following clinical scenario: History/Risk Factors: indwelling catheter w/UTI, decub ulcer, CALDERON, DM Clinical Findings: T 36.7, P 90, R 20, WBC 17.6, Lactic acid 3.67 Treatment: IV Menopenem Question: Is sepsis a clinically valid diagnosis? Sepsis was documented in the ER record with no further documentation in the medical record. Please document a response in Progress Note or Discharge Summary. 1. Yes, clinically valid, condition resolved. 2. No, condition ruled out. 3. Other, with explanation of clinical findings. 4. Undetermined, no explanation for clinical findings. PHYSICIAN RESPONSE Diagnosis clinically valid: Yes, Conditon resolved Please remember a lack of response to the above will prompt a phone page by [facility]/Coding staff. In responding to this query, please exercise your independent professional judgment. The purpose of this communication is to more accurately reflect the complexity of your patients condition. The fact that a question is asked does not imply that any particular answer is desired or expected. Thank you for your timely response to this clarification. Requestors name: Bala THIS PHYSICIAN QUERY FORM IS A PERMANENT PART OF THE MEDICAL RECORD BALA SAGE Jun 08, 2021 08:33 MADINA LAW DO Jun 08, 2021 21:10
== END 2021-06-06 14:30 | disposition home health service (06) | DRG 698 ==
LOC: EDUNIT# 20:49 → ER 20:52 → CSD 23:00 → 4TH 06-06 06:15
PROVIDERS: ADMIT Internal Medicine; ATTEND Internal Medicine
DX: T83.511A Infection and inflammatory reaction due to indwelling urethral catheter, initial encounter (principal); A41.9 Sepsis, unspecified organism; N17.9 Acute kidney failure, unspecified; L89.309 Pressure ulcer of unspecified buttock, unspecified stage; E86.0 Dehydration; E11.42 Type 2 diabetes mellitus with diabetic polyneuropathy; Z79.4 Long term (current) use of insulin; I25.10 Atherosclerotic heart disease of native coronary artery without angina pectoris; E78.00 Pure hypercholesterolemia, unspecified; E78.5 Hyperlipidemia, unspecified; I12.9 Hypertensive chronic kidney disease with stage 1 through stage 4 chronic kidney disease, or unspecified chronic kidney disease; E11.22 Type 2 diabetes mellitus with diabetic chronic kidney disease; N18.9 Chronic kidney disease, unspecified; D64.9 Anemia, unspecified; H54.7 Unspecified visual loss; M62.50 Muscle wasting and atrophy, not elsewhere classified, unspecified site; Z99.3 Dependence on wheelchair; I25.2 Old myocardial infarction; Z95.5 Presence of coronary angioplasty implant and graft; Z86.16 Personal history of COVID-19; Z79.82 Long term (current) use of aspirin; Z85.3 Personal history of malignant neoplasm of breast; Z88.6 Allergy status to analgesic agent; Z88.8 Allergy status to other drugs, medicaments and biological substances; Z83.3 Family history of diabetes mellitus; Z82.49 Family history of ischemic heart disease and other diseases of the circulatory system
CPT/HCPCS: 36415; 51702; 80048; 80053; 80076; 81000; 82947; 83605; 84134; 85007; 85025; 85027; 87040; 87088; 94760; 96361; 96374

== ENCOUNTER → 2021-06-08 | Outpatient (CLI) | payer MEDICARE, MEDICAID ==
[~2021-06-08] MED LIST changes: +AMLO5TAB4 PO
== END ==
LOC: WOUNDCARE 09:56
PROVIDERS: ATTEND Surgery
DX: E44.1 Mild protein-calorie malnutrition (principal); L89.154 Pressure ulcer of sacral region, stage 4; E11.622 Type 2 diabetes mellitus with other skin ulcer; M21.961 Unspecified acquired deformity of right lower leg; E66.01 Morbid (severe) obesity due to excess calories; M62.3 Immobility syndrome (paraplegic); E11.65 Type 2 diabetes mellitus with hyperglycemia; U07.1 COVID-19; L92.8 Other granulomatous disorders of the skin and subcutaneous tissue; E11.52 Type 2 diabetes mellitus with diabetic peripheral angiopathy with gangrene
CPT/HCPCS: 11042

== ENCOUNTER → 2021-06-22 | Outpatient (CLI) | payer MEDICARE, MEDICAID | LOC: WOUNDCARE 09:54 | PROVIDERS: ATTEND Surgery | DX: U07.1 COVID-19 (principal); L89.154 Pressure ulcer of sacral region, stage 4; I96 Gangrene, not elsewhere classified; E11.622 Type 2 diabetes mellitus with other skin ulcer; M21.961 Unspecified acquired deformity of right lower leg; E66.01 Morbid (severe) obesity due to excess calories; E11.65 Type 2 diabetes mellitus with hyperglycemia; L92.8 Other granulomatous disorders of the skin and subcutaneous tissue; Z68.36 Body mass index [BMI] 36.0-36.9, adult | CPT/HCPCS: 11042 ==

== ENCOUNTER → 2021-06-29 | Outpatient (CLI) | payer MEDICARE, MEDICAID | LOC: WOUNDCARE 09:55 | PROVIDERS: ATTEND Surgery | DX: U07.1 COVID-19 (principal); L89.154 Pressure ulcer of sacral region, stage 4; I96 Gangrene, not elsewhere classified; E11.622 Type 2 diabetes mellitus with other skin ulcer; M21.961 Unspecified acquired deformity of right lower leg; E66.01 Morbid (severe) obesity due to excess calories; E11.65 Type 2 diabetes mellitus with hyperglycemia; L92.8 Other granulomatous disorders of the skin and subcutaneous tissue; Z68.36 Body mass index [BMI] 36.0-36.9, adult | CPT/HCPCS: 11042 ==

== ENCOUNTER → 2021-07-06 | Outpatient (CLI) | payer MEDICARE, MEDICAID ==
[2021-07-06 10:15] LABS: BASOPHILS # (AUTO) 0.2 10^3/uL (0.0-0.1); BASOPHILS % (AUTO) 2 % (0-10); EOSINOPHILS # (AUTO) 0.3 10^3/uL (0.0-0.3); EOSINOPHILS % (AUTO) 3 % (0-10); HEMATOCRIT 41 % (35-52); HEMOGLOBIN 12.8 g/dL (11.5-16.0); LYMPHOCYTES # (AUTO) 2.1 10^3/uL (1.0-4.0); LYMPHOCYTES % (AUTO) 20 % (12-44); MEAN CORPUSCULAR HEMOGLOBIN 28 pg (25-34); MEAN CORPUSCULAR HGB CONC 31 g/dL (32-36); MEAN CORPUSCULAR VOLUME 89 fL (80-99); MEAN PLATELET VOLUME 12.3 fL (9.0-12.2); MONOCYTES # (AUTO) 0.6 10^3/uL (0.0-1.0); MONOCYTES % (AUTO) 6 % (0-12); NEUTROPHILS % (AUTO) 68 % (42-75); PLATELET COUNT 303 10^3/uL (130-400); WHITE BLOOD COUNT 10.2 10^3/uL (4.3-11.0)
[2021-07-06 10:30] LABS: ALBUMIN 3.9 GM/DL (3.2-4.5); BILIRUBIN,TOTAL 0.4 MG/DL (0.1-1.0); CALCIUM 10.5 MG/DL (8.5-10.1); CREATININE SERUM 1.11 MG/DL (0.60-1.30); POTASSIUM 4.3 MMOL/L (3.6-5.0); TOTAL PROTEIN 7.8 GM/DL (6.4-8.2)
== END ==
LOC: ONC 09:57
PROVIDERS: ATTEND Internal Medicine Hematology & Oncology
DX: C50.112 Malignant neoplasm of central portion of left female breast (principal); I25.10 Atherosclerotic heart disease of native coronary artery without angina pectoris; I12.9 Hypertensive chronic kidney disease with stage 1 through stage 4 chronic kidney disease, or unspecified chronic kidney disease; N18.30 Chronic kidney disease, stage 3 unspecified; M81.0 Age-related osteoporosis without current pathological fracture; E11.9 Type 2 diabetes mellitus without complications; E78.5 Hyperlipidemia, unspecified; E78.1 Pure hyperglyceridemia; E66.9 Obesity, unspecified; Z79.811 Long term (current) use of aromatase inhibitors; Z92.21 Personal history of antineoplastic chemotherapy; Z92.3 Personal history of irradiation
CPT/HCPCS: 80053; 85025; 99213

== ENCOUNTER → 2021-07-13 | Outpatient (CLI) | payer MEDICARE, MEDICAID | LOC: WOUNDCARE 10:00 | PROVIDERS: ATTEND Surgery | DX: L89.154 Pressure ulcer of sacral region, stage 4 (principal); E11.622 Type 2 diabetes mellitus with other skin ulcer; M21.961 Unspecified acquired deformity of right lower leg; E66.01 Morbid (severe) obesity due to excess calories; E11.65 Type 2 diabetes mellitus with hyperglycemia; U07.1 COVID-19; E11.52 Type 2 diabetes mellitus with diabetic peripheral angiopathy with gangrene | CPT/HCPCS: 11042 ==

== ENCOUNTER → 2021-07-20 | Outpatient (CLI) | payer MEDICARE, MEDICAID | LOC: WOUNDCARE 10:03 | PROVIDERS: ATTEND Surgery | DX: U07.1 COVID-19 (principal); L89.154 Pressure ulcer of sacral region, stage 4; L92.8 Other granulomatous disorders of the skin and subcutaneous tissue; I96 Gangrene, not elsewhere classified; E11.622 Type 2 diabetes mellitus with other skin ulcer; E11.65 Type 2 diabetes mellitus with hyperglycemia; E66.01 Morbid (severe) obesity due to excess calories; Z68.36 Body mass index [BMI] 36.0-36.9, adult | CPT/HCPCS: 11042 ==

== ENCOUNTER → 2021-07-27 | Outpatient (CLI) | payer MEDICARE, MEDICAID ==
[~2021-07-27] MED LIST changes: +SCOP1PAT10 TD; -SCOP1PAT11 TD
== END ==
LOC: WOUNDCARE 10:04
PROVIDERS: ATTEND Surgery
DX: U07.1 COVID-19 (principal); I96 Gangrene, not elsewhere classified; L89.154 Pressure ulcer of sacral region, stage 4; E11.622 Type 2 diabetes mellitus with other skin ulcer; E11.65 Type 2 diabetes mellitus with hyperglycemia; E66.01 Morbid (severe) obesity due to excess calories; L92.8 Other granulomatous disorders of the skin and subcutaneous tissue; Z68.36 Body mass index [BMI] 36.0-36.9, adult
CPT/HCPCS: 11042

== ENCOUNTER → 2021-07-28 | Outpatient (CLI) | payer MEDICARE, MEDICAID ==
--- NOTE | 2021-07-28 12:18 | Diagnostic Imaging Report ---
INDICATION: Routine screening. Comparison is made with prior mammogram 02/24/2020 and 02/21/2019. Unilateral right 2-D and 3-D screening mammography was performed with CAD. Scattered fibroglandular densities in the right breast are noted. The parenchymal pattern is stable. No mass or malignant appearing microcalcifications are seen. Right axilla is unremarkable. IMPRESSION: BI-RADS Category 1 No mammographic features suspicious for malignancy are identified. ACR BI-RADS Category 1: Negative. Result letter will be mailed to the patient. Note: At least 10% of breast cancer is not imaged by mammography. Dictated by: Dictated on workstation # [id number]
== END ==
LOC: RAD 10:38
PROVIDERS: ATTEND Nurse Practitioner Adult Health
DX: Z12.31 Encounter for screening mammogram for malignant neoplasm of breast (principal)
CPT/HCPCS: 77063

== ENCOUNTER → 2021-08-03 | Outpatient (CLI) | payer MEDICARE, MEDICAID | LOC: WOUNDCARE 09:54 | PROVIDERS: ATTEND Surgery | DX: U07.1 COVID-19 (principal); L89.154 Pressure ulcer of sacral region, stage 4; E11.52 Type 2 diabetes mellitus with diabetic peripheral angiopathy with gangrene; E11.622 Type 2 diabetes mellitus with other skin ulcer; E11.65 Type 2 diabetes mellitus with hyperglycemia; E66.01 Morbid (severe) obesity due to excess calories; L92.8 Other granulomatous disorders of the skin and subcutaneous tissue; Z68.36 Body mass index [BMI] 36.0-36.9, adult | CPT/HCPCS: 11042 ==

== ENCOUNTER → 2021-08-10 | Outpatient (CLI) | payer MEDICARE, MEDICAID | LOC: WOUNDCARE 10:03 | PROVIDERS: ATTEND Family Medicine | DX: L89.154 Pressure ulcer of sacral region, stage 4 (principal); E11.622 Type 2 diabetes mellitus with other skin ulcer; E11.65 Type 2 diabetes mellitus with hyperglycemia; E66.01 Morbid (severe) obesity due to excess calories; U09.9 Post COVID-19 condition, unspecified; L92.8 Other granulomatous disorders of the skin and subcutaneous tissue; E11.52 Type 2 diabetes mellitus with diabetic peripheral angiopathy with gangrene | CPT/HCPCS: 11042 ==

== ENCOUNTER → 2021-08-17 | Outpatient (CLI) | payer MEDICARE, MEDICAID | LOC: WOUNDCARE 09:58 | PROVIDERS: ATTEND Family Medicine | DX: E11.52 Type 2 diabetes mellitus with diabetic peripheral angiopathy with gangrene (principal); E11.65 Type 2 diabetes mellitus with hyperglycemia; L89.154 Pressure ulcer of sacral region, stage 4; E66.01 Morbid (severe) obesity due to excess calories; L92.8 Other granulomatous disorders of the skin and subcutaneous tissue; U09.9 Post COVID-19 condition, unspecified; Z68.36 Body mass index [BMI] 36.0-36.9, adult | CPT/HCPCS: 11042 ==

== ENCOUNTER → 2021-08-24 | Outpatient (CLI) | payer MEDICARE, MEDICAID | LOC: WOUNDCARE 10:00 | PROVIDERS: ATTEND Family Medicine | DX: E11.52 Type 2 diabetes mellitus with diabetic peripheral angiopathy with gangrene (principal); E11.622 Type 2 diabetes mellitus with other skin ulcer; E11.65 Type 2 diabetes mellitus with hyperglycemia; L89.154 Pressure ulcer of sacral region, stage 4; I96 Gangrene, not elsewhere classified; E66.01 Morbid (severe) obesity due to excess calories; Z68.36 Body mass index [BMI] 36.0-36.9, adult; U09.9 Post COVID-19 condition, unspecified; L92.8 Other granulomatous disorders of the skin and subcutaneous tissue | CPT/HCPCS: 11042 ==

== ENCOUNTER → 2021-08-31 | Outpatient (CLI) | payer MEDICARE, MEDICAID | LOC: WOUNDCARE 09:44 | PROVIDERS: ATTEND Family Medicine | DX: E11.52 Type 2 diabetes mellitus with diabetic peripheral angiopathy with gangrene (principal); L89.154 Pressure ulcer of sacral region, stage 4; E11.622 Type 2 diabetes mellitus with other skin ulcer; E11.65 Type 2 diabetes mellitus with hyperglycemia; E66.01 Morbid (severe) obesity due to excess calories; L92.8 Other granulomatous disorders of the skin and subcutaneous tissue; U09.9 Post COVID-19 condition, unspecified | CPT/HCPCS: 11042 ==

== ENCOUNTER → 2021-09-07 | Outpatient (CLI) | payer MEDICARE, MEDICAID | LOC: WOUNDCARE 09:58 | PROVIDERS: ATTEND Family Medicine | DX: E11.52 Type 2 diabetes mellitus with diabetic peripheral angiopathy with gangrene (principal); E11.622 Type 2 diabetes mellitus with other skin ulcer; E11.65 Type 2 diabetes mellitus with hyperglycemia; I96 Gangrene, not elsewhere classified; E66.01 Morbid (severe) obesity due to excess calories; L89.154 Pressure ulcer of sacral region, stage 4; U09.9 Post COVID-19 condition, unspecified; L92.8 Other granulomatous disorders of the skin and subcutaneous tissue; Z68.36 Body mass index [BMI] 36.0-36.9, adult | CPT/HCPCS: 11042 ==

== ENCOUNTER → 2021-09-14 | Outpatient (CLI) | payer MEDICARE, MEDICAID | LOC: WOUNDCARE 11:06 | PROVIDERS: ATTEND Family Medicine | DX: L89.154 Pressure ulcer of sacral region, stage 4 (principal); U09.9 Post COVID-19 condition, unspecified; E11.622 Type 2 diabetes mellitus with other skin ulcer; E11.65 Type 2 diabetes mellitus with hyperglycemia; E11.52 Type 2 diabetes mellitus with diabetic peripheral angiopathy with gangrene; E66.01 Morbid (severe) obesity due to excess calories; L92.8 Other granulomatous disorders of the skin and subcutaneous tissue; Z68.36 Body mass index [BMI] 36.0-36.9, adult | CPT/HCPCS: 11042 ==

== ENCOUNTER → 2021-09-14 | Outpatient (CLI) | payer MEDICARE, MEDICAID ==
[~2021-09-14] MED LIST changes: +GADOTERATE 0.5 MMOL/ML (CLARISCAN) 20 ML VIAL IV ONE
--- NOTE | 2021-09-14 14:19 | Diagnostic Imaging Report ---
PROCEDURE: MRI sacrum and sacroiliac joints with and without contrast. TECHNIQUE: Multiplanar, multisequence MRI of the sacrum and sacroiliac joints was performed with and without contrast. DATE: September 14, 2021. INDICATION: 66-year-old female, pressure ulcer x 1 year without healing. Evaluation for abscess and/or osteomyelitis. COMPARISON: None. FINDINGS: There are bilateral hip prostheses. There is associated hardware related artifact. There is a fairly linear oriented tract of abnormal signal extending from the skin surface posteriorly to the level of the lower sacrum and coccyx. The abnormal low signal does directly contact the inferior aspect of the S5 sacral segment and the first two coccygeal segments. There is no identified T1 marrow signal loss or aggressive bone destruction. There is also no marrow edema. There is ill-defined subcutaneous enhancement in the region of the abnormal soft tissue signal as well as abnormal fluid type signal. There is a very small focal area of fluid just posterior to the first coccygeal segment on sagittal STIR sequence image 17 measuring 9 x 6 mm in size. The sacroiliac joints are unremarkable in appearance. IMPRESSION: 1. Abnormal tract of signal extending from the posterior skin surface to the level of the lower sacrum and coccyx with direct contact of bone; however, there is no evidence of active osteomyelitis. 2. Very small area of focal fluid just superficial to the first coccygeal segment measuring 9 x 6 mm in size which may relate to a small phlegmon. Dictated by: Dictated on workstation # [id number]
== END ==
LOC: RAD 09:30
PROVIDERS: ATTEND Family Medicine
DX: L89.154 Pressure ulcer of sacral region, stage 4 (principal); E11.622 Type 2 diabetes mellitus with other skin ulcer; E11.65 Type 2 diabetes mellitus with hyperglycemia; E66.01 Morbid (severe) obesity due to excess calories; U09.9 Post COVID-19 condition, unspecified; L92.8 Other granulomatous disorders of the skin and subcutaneous tissue
CPT/HCPCS: 72197

== ENCOUNTER → 2021-09-21 | Outpatient (CLI) | payer MEDICARE, MEDICAID ==
[~2021-09-21] MED LIST changes: -GADOTERATE 0.5 MMOL/ML (CLARISCAN) 20 ML VIAL IV ONE
== END ==
LOC: WOUNDCARE 10:03
PROVIDERS: ATTEND Family Medicine
DX: L89.154 Pressure ulcer of sacral region, stage 4 (principal); E11.622 Type 2 diabetes mellitus with other skin ulcer; E11.65 Type 2 diabetes mellitus with hyperglycemia; E66.01 Morbid (severe) obesity due to excess calories; U09.9 Post COVID-19 condition, unspecified; L92.8 Other granulomatous disorders of the skin and subcutaneous tissue; E11.52 Type 2 diabetes mellitus with diabetic peripheral angiopathy with gangrene
CPT/HCPCS: 11042

== ENCOUNTER → 2021-09-28 | Outpatient (CLI) | payer MEDICARE, MEDICAID | LOC: WOUNDCARE 09:50 | PROVIDERS: ATTEND Family Medicine | DX: L89.154 Pressure ulcer of sacral region, stage 4 (principal); E11.622 Type 2 diabetes mellitus with other skin ulcer; E11.65 Type 2 diabetes mellitus with hyperglycemia; E11.52 Type 2 diabetes mellitus with diabetic peripheral angiopathy with gangrene; E66.01 Morbid (severe) obesity due to excess calories; L92.8 Other granulomatous disorders of the skin and subcutaneous tissue; U09.9 Post COVID-19 condition, unspecified; Z68.36 Body mass index [BMI] 36.0-36.9, adult | CPT/HCPCS: 11042 ==

== ENCOUNTER → 2021-10-05 | Outpatient (CLI) | payer MEDICARE, MEDICAID | LOC: WOUNDCARE 09:56 | PROVIDERS: ATTEND Family Medicine | DX: L89.154 Pressure ulcer of sacral region, stage 4 (principal); E11.622 Type 2 diabetes mellitus with other skin ulcer; E11.65 Type 2 diabetes mellitus with hyperglycemia; E11.52 Type 2 diabetes mellitus with diabetic peripheral angiopathy with gangrene; E66.01 Morbid (severe) obesity due to excess calories; U09.9 Post COVID-19 condition, unspecified; L92.8 Other granulomatous disorders of the skin and subcutaneous tissue; Z68.36 Body mass index [BMI] 36.0-36.9, adult | CPT/HCPCS: 11042; 97607 ==

== ENCOUNTER → 2021-10-12 | Outpatient (CLI) | payer MEDICARE, MEDICAID | LOC: WOUNDCARE 09:48 | PROVIDERS: ATTEND Family Medicine | DX: L89.154 Pressure ulcer of sacral region, stage 4 (principal); E11.622 Type 2 diabetes mellitus with other skin ulcer; E11.65 Type 2 diabetes mellitus with hyperglycemia; E11.52 Type 2 diabetes mellitus with diabetic peripheral angiopathy with gangrene; E66.01 Morbid (severe) obesity due to excess calories; U09.9 Post COVID-19 condition, unspecified; L92.8 Other granulomatous disorders of the skin and subcutaneous tissue; Z68.36 Body mass index [BMI] 36.0-36.9, adult | CPT/HCPCS: 11042; 97607 ==

== ENCOUNTER → 2021-10-19 | Outpatient (CLI) | payer MEDICARE, MEDICAID | LOC: WOUNDCARE 10:17 | PROVIDERS: ATTEND Family Medicine | DX: L89.154 Pressure ulcer of sacral region, stage 4 (principal); E11.622 Type 2 diabetes mellitus with other skin ulcer; E11.65 Type 2 diabetes mellitus with hyperglycemia; E11.52 Type 2 diabetes mellitus with diabetic peripheral angiopathy with gangrene; E66.01 Morbid (severe) obesity due to excess calories; U09.9 Post COVID-19 condition, unspecified; L92.8 Other granulomatous disorders of the skin and subcutaneous tissue; Z68.36 Body mass index [BMI] 36.0-36.9, adult | CPT/HCPCS: 11042; 97607 ==

== ENCOUNTER → 2021-10-26 | Outpatient (CLI) | payer MEDICARE, MEDICAID | LOC: WOUNDCARE 09:46 | PROVIDERS: ATTEND Family Medicine | DX: L89.154 Pressure ulcer of sacral region, stage 4 (principal); E11.622 Type 2 diabetes mellitus with other skin ulcer; E11.65 Type 2 diabetes mellitus with hyperglycemia; E66.01 Morbid (severe) obesity due to excess calories; U09.9 Post COVID-19 condition, unspecified; L92.8 Other granulomatous disorders of the skin and subcutaneous tissue; E11.52 Type 2 diabetes mellitus with diabetic peripheral angiopathy with gangrene | CPT/HCPCS: 11042; 97607 ==

== ENCOUNTER → 2021-11-02 | Outpatient (CLI) | payer MEDICARE, MEDICAID | LOC: WOUNDCARE 10:01 | PROVIDERS: ATTEND Family Medicine | DX: L89.154 Pressure ulcer of sacral region, stage 4 (principal); E11.622 Type 2 diabetes mellitus with other skin ulcer; E11.65 Type 2 diabetes mellitus with hyperglycemia; E11.52 Type 2 diabetes mellitus with diabetic peripheral angiopathy with gangrene; E66.01 Morbid (severe) obesity due to excess calories; U09.9 Post COVID-19 condition, unspecified; L92.8 Other granulomatous disorders of the skin and subcutaneous tissue; Z68.34 Body mass index [BMI] 34.0-34.9, adult | CPT/HCPCS: 11042; 36415; 83036; 97607 ==

== ENCOUNTER → 2021-11-09 | Outpatient (CLI) | payer MEDICARE, MEDICAID | LOC: WOUNDCARE 09:52 | PROVIDERS: ATTEND Family Medicine | DX: L89.154 Pressure ulcer of sacral region, stage 4 (principal); E11.622 Type 2 diabetes mellitus with other skin ulcer; E11.65 Type 2 diabetes mellitus with hyperglycemia; E66.01 Morbid (severe) obesity due to excess calories; U09.9 Post COVID-19 condition, unspecified; L92.8 Other granulomatous disorders of the skin and subcutaneous tissue; E11.52 Type 2 diabetes mellitus with diabetic peripheral angiopathy with gangrene | CPT/HCPCS: 11042; 97607 ==

== ENCOUNTER → 2021-11-14 | Outpatient (CLI) | payer MEDICARE, MEDICAID | LOC: CARD 11:00 | PROVIDERS: ATTEND Internal Medicine Cardiovascular Disease | DX: I11.9 Hypertensive heart disease without heart failure (principal) | CPT/HCPCS: 93306 ==

== ENCOUNTER → 2021-11-16 | Outpatient (CLI) | payer MEDICARE, MEDICAID | LOC: WOUNDCARE 09:59 | PROVIDERS: ATTEND Family Medicine | DX: L89.154 Pressure ulcer of sacral region, stage 4 (principal); E11.622 Type 2 diabetes mellitus with other skin ulcer; E11.65 Type 2 diabetes mellitus with hyperglycemia; E66.01 Morbid (severe) obesity due to excess calories; U09.9 Post COVID-19 condition, unspecified; L92.8 Other granulomatous disorders of the skin and subcutaneous tissue; E11.52 Type 2 diabetes mellitus with diabetic peripheral angiopathy with gangrene | CPT/HCPCS: 11042; 97605 ==

== ENCOUNTER → 2021-11-19 | Outpatient (CLI) | payer MEDICARE, MEDICAID | LOC: CARD 12:48 | PROVIDERS: ATTEND Family Medicine | DX: L89.154 Pressure ulcer of sacral region, stage 4 (principal); E11.622 Type 2 diabetes mellitus with other skin ulcer; E11.65 Type 2 diabetes mellitus with hyperglycemia; E66.01 Morbid (severe) obesity due to excess calories; U09.9 Post COVID-19 condition, unspecified; L92.8 Other granulomatous disorders of the skin and subcutaneous tissue | CPT/HCPCS: 36415; 85652; 86141 ==

== ENCOUNTER → 2021-11-30 | Outpatient (CLI) | payer MEDICARE, MEDICAID | LOC: WOUNDCARE 09:49 | PROVIDERS: ATTEND Family Medicine | DX: L89.154 Pressure ulcer of sacral region, stage 4 (principal); E11.622 Type 2 diabetes mellitus with other skin ulcer; E11.65 Type 2 diabetes mellitus with hyperglycemia; E66.01 Morbid (severe) obesity due to excess calories; E11.52 Type 2 diabetes mellitus with diabetic peripheral angiopathy with gangrene; U09.9 Post COVID-19 condition, unspecified; L92.8 Other granulomatous disorders of the skin and subcutaneous tissue; Z68.34 Body mass index [BMI] 34.0-34.9, adult | CPT/HCPCS: 11042; 97607 ==

== ENCOUNTER → 2021-12-07 | Outpatient (CLI) | payer MEDICARE, MEDICAID | LOC: WOUNDCARE 09:56 | PROVIDERS: ATTEND Family Medicine | DX: L89.154 Pressure ulcer of sacral region, stage 4 (principal); E11.622 Type 2 diabetes mellitus with other skin ulcer; E11.65 Type 2 diabetes mellitus with hyperglycemia; E66.01 Morbid (severe) obesity due to excess calories; U09.9 Post COVID-19 condition, unspecified; L92.8 Other granulomatous disorders of the skin and subcutaneous tissue; E11.52 Type 2 diabetes mellitus with diabetic peripheral angiopathy with gangrene | CPT/HCPCS: 11042; 97607 ==

== ENCOUNTER → 2021-12-14 | Outpatient (CLI) | payer MEDICARE, MEDICAID | LOC: WOUNDCARE 10:01 | PROVIDERS: ATTEND Family Medicine | DX: E11.52 Type 2 diabetes mellitus with diabetic peripheral angiopathy with gangrene (principal); E11.622 Type 2 diabetes mellitus with other skin ulcer; E11.65 Type 2 diabetes mellitus with hyperglycemia; L89.154 Pressure ulcer of sacral region, stage 4; I96 Gangrene, not elsewhere classified; E66.01 Morbid (severe) obesity due to excess calories; U09.9 Post COVID-19 condition, unspecified; L92.8 Other granulomatous disorders of the skin and subcutaneous tissue; Z68.34 Body mass index [BMI] 34.0-34.9, adult | CPT/HCPCS: 99213 ==

== ENCOUNTER → 2021-12-28 | Outpatient (CLI) | payer MEDICARE, MEDICAID ==
[2021-12-28 11:21] LABS: EOSINOPHILS # (AUTO) 0.3 10^3/uL (0.0-0.3); EOSINOPHILS % (AUTO) 3 % (0-10)
[2021-12-28 11:23] LABS: BASOPHILS # (AUTO) 0.1 10^3/uL (0.0-0.1); BASOPHILS % (AUTO) 1 % (0-10); HEMATOCRIT 44 % (35-52); HEMOGLOBIN 13.9 g/dL (11.5-16.0); LYMPHOCYTES # (AUTO) 2.2 10^3/uL (1.0-4.0); LYMPHOCYTES % (AUTO) 20 % (12-44); MEAN CORPUSCULAR HEMOGLOBIN 26 pg (25-34); MEAN CORPUSCULAR HGB CONC 32 g/dL (32-36); MEAN CORPUSCULAR VOLUME 82 fL (80-99); MEAN PLATELET VOLUME 12.1 fL (9.0-12.2); MONOCYTES # (AUTO) 0.7 10^3/uL (0.0-1.0); MONOCYTES % (AUTO) 6 % (0-12); NEUTROPHILS # (AUTO) 7.4 10^3/uL (1.8-7.8); NEUTROPHILS % (AUTO) 69 % (42-75); PLATELET COUNT 287 10^3/uL (130-400); WHITE BLOOD COUNT 10.8 10^3/uL (4.3-11.0)
[2021-12-28 11:37] LABS: ALBUMIN 3.8 GM/DL (3.2-4.5)
[2021-12-28 11:38] LABS: POTASSIUM 3.8 MMOL/L (3.6-5.0)
[2021-12-28 11:39] LABS: CALCIUM 10.7 MG/DL (8.5-10.1)
[2021-12-28 11:40] LABS: TOTAL PROTEIN 8.2 GM/DL (6.4-8.2)
[2021-12-28 11:42] LABS: BILIRUBIN,TOTAL 0.4 MG/DL (0.1-1.0)
[2021-12-28 11:44] LABS: CREATININE SERUM 1.08 MG/DL (0.60-1.30)
== END ==
LOC: LAB 10:39
PROVIDERS: ATTEND Family Medicine
DX: L89.154 Pressure ulcer of sacral region, stage 4 (principal)
CPT/HCPCS: 36415; 80053; 83036; 85025

== ENCOUNTER → 2021-12-28 | Outpatient (CLI) | payer MEDICARE, MEDICAID | LOC: WOUNDCARE 09:47 | PROVIDERS: ATTEND Family Medicine | DX: L89.154 Pressure ulcer of sacral region, stage 4 (principal); E11.622 Type 2 diabetes mellitus with other skin ulcer; E11.65 Type 2 diabetes mellitus with hyperglycemia; E66.01 Morbid (severe) obesity due to excess calories; L92.8 Other granulomatous disorders of the skin and subcutaneous tissue; E11.52 Type 2 diabetes mellitus with diabetic peripheral angiopathy with gangrene; U09.9 Post COVID-19 condition, unspecified; Z68.34 Body mass index [BMI] 34.0-34.9, adult | CPT/HCPCS: 11042 ==

== ENCOUNTER → 2022-01-04 | Outpatient (CLI) | payer MEDICARE, MEDICAID | LOC: WOUNDCARE 09:56 | PROVIDERS: ATTEND Family Medicine | DX: L89.154 Pressure ulcer of sacral region, stage 4 (principal); E11.622 Type 2 diabetes mellitus with other skin ulcer; E11.65 Type 2 diabetes mellitus with hyperglycemia; E11.52 Type 2 diabetes mellitus with diabetic peripheral angiopathy with gangrene; E66.01 Morbid (severe) obesity due to excess calories; U09.9 Post COVID-19 condition, unspecified; L92.8 Other granulomatous disorders of the skin and subcutaneous tissue; Z91.11 Patient's noncompliance with dietary regimen; Z68.34 Body mass index [BMI] 34.0-34.9, adult | CPT/HCPCS: 11042 ==

== ENCOUNTER → 2022-01-11 | Outpatient (CLI) | payer MEDICARE, MEDICAID | LOC: WOUNDCARE 10:01 | PROVIDERS: ATTEND Family Medicine | DX: L89.154 Pressure ulcer of sacral region, stage 4 (principal); E11.622 Type 2 diabetes mellitus with other skin ulcer; E11.65 Type 2 diabetes mellitus with hyperglycemia; E66.01 Morbid (severe) obesity due to excess calories; U09.9 Post COVID-19 condition, unspecified; L92.8 Other granulomatous disorders of the skin and subcutaneous tissue; B37.2 Candidiasis of skin and nail; E11.52 Type 2 diabetes mellitus with diabetic peripheral angiopathy with gangrene; Z91.11 Patient's noncompliance with dietary regimen | CPT/HCPCS: 11042 ==

== ENCOUNTER → 2022-01-18 | Outpatient (CLI) | payer MEDICARE, MEDICAID ==
[~2022-01-18] MED LIST changes: -FENO134C PO; +FENO134C21 PO
== END ==
LOC: WOUNDCARE 10:00
PROVIDERS: ATTEND Family Medicine
DX: E11.622 Type 2 diabetes mellitus with other skin ulcer (principal); E11.65 Type 2 diabetes mellitus with hyperglycemia; L89.154 Pressure ulcer of sacral region, stage 4; L92.8 Other granulomatous disorders of the skin and subcutaneous tissue; B37.2 Candidiasis of skin and nail; E11.52 Type 2 diabetes mellitus with diabetic peripheral angiopathy with gangrene; E66.01 Morbid (severe) obesity due to excess calories; U09.9 Post COVID-19 condition, unspecified; Z91.11 Patient's noncompliance with dietary regimen
CPT/HCPCS: 11042

== ENCOUNTER → 2022-01-25 | Outpatient (CLI) | payer MEDICARE, MEDICAID | LOC: WOUNDCARE 09:59 | PROVIDERS: ATTEND Family Medicine | DX: L89.154 Pressure ulcer of sacral region, stage 4 (principal); E11.622 Type 2 diabetes mellitus with other skin ulcer; E11.65 Type 2 diabetes mellitus with hyperglycemia; E66.01 Morbid (severe) obesity due to excess calories; U09.9 Post COVID-19 condition, unspecified; L92.8 Other granulomatous disorders of the skin and subcutaneous tissue; E11.52 Type 2 diabetes mellitus with diabetic peripheral angiopathy with gangrene; Z91.11 Patient's noncompliance with dietary regimen | CPT/HCPCS: 11042 ==

== ENCOUNTER → 2022-02-01 | Outpatient (CLI) | payer MEDICARE, MEDICAID | LOC: WOUNDCARE 09:55 | PROVIDERS: ATTEND Family Medicine | DX: L89.154 Pressure ulcer of sacral region, stage 4 (principal); E11.622 Type 2 diabetes mellitus with other skin ulcer; E11.65 Type 2 diabetes mellitus with hyperglycemia; E66.01 Morbid (severe) obesity due to excess calories; U09.9 Post COVID-19 condition, unspecified; L92.8 Other granulomatous disorders of the skin and subcutaneous tissue; Z91.11 Patient's noncompliance with dietary regimen; E11.52 Type 2 diabetes mellitus with diabetic peripheral angiopathy with gangrene | CPT/HCPCS: 17250 ==

== ENCOUNTER → 2022-02-01 | Outpatient (CLI) | payer MEDICARE, MEDICAID ==
[2022-02-01 11:59] LABS: ALBUMIN 3.7 GM/DL (3.2-4.5); BILIRUBIN,TOTAL 0.3 MG/DL (0.1-1.0); CALCIUM 9.8 MG/DL (8.5-10.1); CREATININE SERUM 1.17 MG/DL (0.60-1.30); POTASSIUM 3.7 MMOL/L (3.6-5.0); TOTAL PROTEIN 7.7 GM/DL (6.4-8.2)
[2022-02-01 12:20] LABS: FREE T4 (FREE THYROXINE) 0.87 NG/DL (0.70-1.48)
== END ==
LOC: LAB 10:33
PROVIDERS: ATTEND Internal Medicine
DX: E78.5 Hyperlipidemia, unspecified (principal); R10.9 Unspecified abdominal pain; R53.83 Other fatigue
CPT/HCPCS: 36415; 80053; 82465; 84439; 84443; 84478

== ENCOUNTER → 2022-02-08 | Outpatient (CLI) | payer MEDICARE, MEDICAID | LOC: WOUNDCARE 10:15 | PROVIDERS: ATTEND Family Medicine | DX: L89.154 Pressure ulcer of sacral region, stage 4 (principal); E11.622 Type 2 diabetes mellitus with other skin ulcer; E11.65 Type 2 diabetes mellitus with hyperglycemia; L92.8 Other granulomatous disorders of the skin and subcutaneous tissue; E66.01 Morbid (severe) obesity due to excess calories; U09.9 Post COVID-19 condition, unspecified; Z91.11 Patient's noncompliance with dietary regimen; Z68.34 Body mass index [BMI] 34.0-34.9, adult | CPT/HCPCS: 11042 ==

== ENCOUNTER → 2022-02-15 | Outpatient (CLI) | payer MEDICARE, MEDICAID | LOC: WOUNDCARE 09:59 | PROVIDERS: ATTEND Family Medicine | DX: L89.154 Pressure ulcer of sacral region, stage 4 (principal); E11.622 Type 2 diabetes mellitus with other skin ulcer; E11.65 Type 2 diabetes mellitus with hyperglycemia; E66.01 Morbid (severe) obesity due to excess calories; U09.9 Post COVID-19 condition, unspecified; L92.8 Other granulomatous disorders of the skin and subcutaneous tissue; Z91.11 Patient's noncompliance with dietary regimen; E11.52 Type 2 diabetes mellitus with diabetic peripheral angiopathy with gangrene | CPT/HCPCS: 11042 ==

== ENCOUNTER → 2022-02-22 | Outpatient (CLI) | payer MEDICARE, MEDICAID | LOC: LAB 11:20 | PROVIDERS: ATTEND Family Medicine | DX: L89.154 Pressure ulcer of sacral region, stage 4 (principal); E11.622 Type 2 diabetes mellitus with other skin ulcer; E11.65 Type 2 diabetes mellitus with hyperglycemia; U09.9 Post COVID-19 condition, unspecified; E66.01 Morbid (severe) obesity due to excess calories; L92.8 Other granulomatous disorders of the skin and subcutaneous tissue; Z91.11 Patient's noncompliance with dietary regimen; D51.3 Other dietary vitamin B12 deficiency anemia; E55.9 Vitamin D deficiency, unspecified | CPT/HCPCS: 36415; 82306; 82607; 82746 ==

== ENCOUNTER → 2022-02-22 | Outpatient (CLI) | payer MEDICARE, MEDICAID | LOC: WOUNDCARE 10:39 | PROVIDERS: ATTEND Family Medicine | DX: L89.154 Pressure ulcer of sacral region, stage 4 (principal); E11.622 Type 2 diabetes mellitus with other skin ulcer; E11.65 Type 2 diabetes mellitus with hyperglycemia; E66.01 Morbid (severe) obesity due to excess calories; U09.9 Post COVID-19 condition, unspecified; L92.8 Other granulomatous disorders of the skin and subcutaneous tissue; D51.3 Other dietary vitamin B12 deficiency anemia; E55.9 Vitamin D deficiency, unspecified; E11.52 Type 2 diabetes mellitus with diabetic peripheral angiopathy with gangrene; Z91.11 Patient's noncompliance with dietary regimen | CPT/HCPCS: 11042 ==

== ENCOUNTER → 2022-03-08 | Outpatient (CLI) | payer MEDICARE, MEDICAID | LOC: WOUNDCARE 09:59 | PROVIDERS: ATTEND Family Medicine | DX: I96 Gangrene, not elsewhere classified (principal); L89.154 Pressure ulcer of sacral region, stage 4; E11.622 Type 2 diabetes mellitus with other skin ulcer; E11.65 Type 2 diabetes mellitus with hyperglycemia; E66.01 Morbid (severe) obesity due to excess calories; U09.9 Post COVID-19 condition, unspecified; E11.52 Type 2 diabetes mellitus with diabetic peripheral angiopathy with gangrene; Z91.11 Patient's noncompliance with dietary regimen; Z68.34 Body mass index [BMI] 34.0-34.9, adult | CPT/HCPCS: 99213 ==

== ENCOUNTER → 2022-05-10 | Outpatient (CLI) | payer MEDICARE, MEDICAID ==
[2022-05-10 09:38] LABS: ALBUMIN 3.8 GM/DL (3.2-4.5); BILIRUBIN,TOTAL 0.4 MG/DL (0.1-1.0); CALCIUM 10.1 MG/DL (8.5-10.1); CREATININE SERUM 1.18 MG/DL (0.60-1.30); POTASSIUM 3.8 MMOL/L (3.6-5.0); TOTAL PROTEIN 7.9 GM/DL (6.4-8.2)
[2022-05-10 10:00] LABS: FREE T4 (FREE THYROXINE) 0.96 NG/DL (0.70-1.48)
== END ==
LOC: LAB 08:22
PROVIDERS: ATTEND Internal Medicine
DX: Z13.6 Encounter for screening for cardiovascular disorders (principal); I10 Essential (primary) hypertension; E11.65 Type 2 diabetes mellitus with hyperglycemia; E03.9 Hypothyroidism, unspecified
CPT/HCPCS: 36415; 80053; 82043; 82465; 83036; 84439; 84443; 84478

== ENCOUNTER → 2022-07-17 | Outpatient (CLI) | payer MEDICARE, MEDICAID ==
[~2022-07-17] VITALS: Ht 172 cm; Wt 105.0 kg
[~2022-07-17] MED LIST changes: +REGADENOSON 0.4 MG/5 ML SYR (LEXISCAN) IV ONE
[2022-07-17] MEDS: CATHETER FLUSH 10 ML SYR IVP PRN ×2 (07:45→09:23)
[2022-07-17 09:04] VITALS: BP 196/90
--- NOTE | 2022-07-17 12:09 | Cardiology Stress Test Report ---
Stress Test Report Date of Procedure/Referring: Date of Procedure: Jul 17, 2022 PCP Selene Law DO Admitting Physician Admitting Physician: Attending Physician: Hattie Persaud Indications: CAD Baseline Heart Rate: 61 Baseline Blood Pressure: Blood Pressure Systolic: 196 Blood Pressure Diastolic: 90 Baseline Vitals Vital Signs Date Time Temp Pulse Resp B/P (MAP) Pulse Ox O2 Delivery O2 Flow Rate FiO2 07/17/22 09:04 61 16 196/90 (125) 97 Room Air Baseline EKG: Baseline EKG: NSR Summary After explaining the procedure to the patient, she signed a consent and then brought to the stress nuclear laboratory. Patient received 0.4 mg Lexiscan for stress test, ECG, heart rate and blood pressure were monitored continuously. Resting and stress dose of radio tracer were injected, imaging was acquired and reviewed in short axis, horizontal long axis and vertical long axis views. TID: 1.2 SSS: 11 SDS: 5 EF: 61 1. Patient tolerated Lexiscan well 2. Increase gastric uptake affecting the quality of the images, there is a reversible ischemia involving the inferior wall and inferoapical segment 3. Normal left ventricular size, ejection fraction 61% Copy Copies To 1: SELENE LAW BASHAR J MD Jul 17, 2022 12:09
== END ==
LOC: CARD 07:45
PROVIDERS: ATTEND Physician Assistant
DX: I25.10 Atherosclerotic heart disease of native coronary artery without angina pectoris (principal)
CPT/HCPCS: 78452; 93017

== ENCOUNTER 2022-07-26 11:00 | Day surgery (SDC) | payer MEDICARE, MEDICAID ==
[~2022-07-26] VITALS: Ht 172.7 cm; Wt 108.3 kg
[2022-07-26] VITALS (7 sets, daily range): BP systolic 96–122; BP diastolic 54–75
[2022-07-26 09:15] LABS: HEMATOCRIT 44 % (35-52); MEAN CORPUSCULAR HEMOGLOBIN 27 pg (25-34); MEAN CORPUSCULAR HGB CONC 32 g/dL (32-36); MEAN CORPUSCULAR VOLUME 83 fL (80-99); MEAN PLATELET VOLUME 12.1 fL (9.0-12.2); PLATELET COUNT 262 10^3/uL (130-400); WHITE BLOOD COUNT 10.2 10^3/uL (4.3-11.0)
--- NOTE | 2022-07-26 09:27 | Diagnostic Imaging Report ---
EXAMINATION: Chest 1 view HISTORY: Abnormal stress test COMPARISON: 11/17/2020 FINDINGS: Pulmonary artery shadow is prominent. Heart size is normal. No pleural effusion or pneumothorax. No edema or pneumonia. IMPRESSION: 1. Prominent pulmonary artery shadow, chest CT with contrast can be considered to evaluate for lymphadenopathy or dilated pulmonary artery. Dictated by: Dictated on workstation # [id number]
[2022-07-26 09:45] LABS: ALBUMIN 3.8 GM/DL (3.2-4.5); BILIRUBIN,TOTAL 0.4 MG/DL (0.1-1.0); CALCIUM 9.8 MG/DL (8.5-10.1); CREATININE SERUM 1.18 MG/DL (0.60-1.30); POTASSIUM 3.8 MMOL/L (3.6-5.0); PROTHROMBIN TIME PATIENT 13.8 SEC (12.2-14.7)
--- NOTE | 2022-07-26 10:04 | Cardiac Procedure Note-CS/ASA ---
Pre-Procedure Note Pre-Op Procedure Note Date of Available H&P: Jul 17, 2022 Date H&P Reviewed: Jul 26, 2022 Time H&P Reviewed: 10:03 History & Physical: H&P Reviewed, Patient Examed, No changes noted Pre-Operative Diagnosis: CAD Conscious Sedation Pre-Proced Time 10:03 ASA Score 3 For ASA 3 and 4: Consider anesthesia and medical clearance. Also, for patients with a history of failed moderate sedation consider anesthesia. Airway Lungs Heart ASA score ASA 1: a normal healthy patient ASA 2: a patient with a mild systemic disease (mid diabetes, controlled hypertension, obesity x ASA 3: a patient with a severe systemic disease that limits activity (angina, COPD, prior Myocardial infarction) ASA 4: a patient with an incapacitating disease that is a constant threat to life (CHF, renal failure) ASA 5: a moribund patient not expected to survive 24 hrs. (ruptured aneurysm) ASA 6: a declared brain- patient whose organs are being harvested. For emergent operations, add the letter E after the classification Mallampati Classification Grade 3 Sedation Plan Analgesia, Amnesia, Plan communicated to team members, Discussed options with patient/fam, Discussed risks with patient/fam The patient is an appropriate candidate to undergo the planned procedure, sedation, and anesthesia. The patient immediately re-assessed prior to indication. NEEMA EMMANUEL MD Jul 26, 2022 10:04
[~2022-07-26 11:00] MED LIST changes: +ASCO500T16 PO; +CETI10TA17 PO; +CHOL500049 PO; +CYAN250010 PO; +DULO30CA49 PO; +EMPA10TA PO; +FENO48TA11 PO; +HEParin (CATH LAB) 2,000 ML IV ONE; +HEParin 1000 UNIT/ML (10ML VIAL) FOR BOLUS ONE; +INSU100I34 SQ; +LIDOCAINE 1% INJ 30 ML (XYLOCAINE) VIAL ONE; +MIDAZOLAM 5 MG/5 ML (VERSED) VIAL ONE; +MONT-40 PO; +NITRO DRIP 25000 MCG/D5W 250 ML IV ONE; +NS IV 1000 ML 1,000 ML IV SCH; +NS IV 1000 ML 1,000 ML ONE; -REGADENOSON 0.4 MG/5 ML SYR (LEXISCAN) IV ONE; +VERAPAMIL 5 MG/2 ML (CALAN) VIAL IV ONE; +fentaNYL INJ 100 MCG/2 ML AMP ONE
--- NOTE | 2022-07-26 11:08 | Discharge Inst-Post CATH ---
Discharge Inst-CATH/EP Problems Reviewed?: Yes Post Cardiac Cath/EP D/C Inst Follow Up/Plan Appointment with Dr. Segura office Appointment with Dr. Emmanuel's office in 4 weeks <b>CARDIAC CATH/EP PROCEDURE DISCHARGE INSTRUCTIONS</b> ACTIVITY * Go Home directly and rest. * Limit activity of the leg (or wrist if it was used) for 7 days including aerobics, swimming, jogging, bicycling, etc. * Restrict stair-climbing for 7 days if possible, if not, climb up with your non-cath leg, then bring together on the same step. * Avoid lifting, pushing, pulling or excessive movement of the affected extremity for 7 days. * Customary sexual activity may be resumed after 2 days-use caution not to use a position that strains or causes pain to the affected extremity. * No driving for 24 hours. * NO SMOKING. * Avoid straining for bowel movements for 7 days. * Gentle walking on level ground is allowed. * Returning to work will depend on the type of procedure and the results. Your doctor will discuss this with you. CALL YOUR DOCTOR FOR ANY OF THE FOLLOWING: *If bleeding from the puncture site occurs- Apply gentle pressure to site with clean cloth and call your doctor or EMS. * If a knot or lump forms under the skin, increases in size, or causes pain. * If bruising appears to be worsening or moving further down your leg instead of disappearing. * Temperature above 101 F. CARE OF YOUR GROIN INCISION; * Bruising or purple discoloration of the skin near the puncture site is common. * You may shower only, no bathtub bathing for 5 days. Be careful to avoid slipping as your leg may feel stiff. * If a closure device was used on your femoral artery, please see the attached guide regarding care of the device and your leg. * Leave dressing on FOR 24 hours. CARE OF YOUR WRIST INCISION; * Bruising or purple discoloration of the skin near the puncture site is common. * You may shower. * DO NOT submerge wrist. * Leave dressing on FOR 24 hours. NEEMA EMMANUEL MD Jul 26, 2022 11:08
--- NOTE | 2022-07-26 11:12 | Cardiac Cath Report ---
Cardiac Cath Report Physician (s)/Audio Visual Secretary (s) Physician NEEMA EMMANUEL MD Pre-Procedure Diagnosis Pre-Procedure Diagnosis: CAD Post-Procedure Note Procedure Start Date: Jul 26, 2022 Procedure Start Time: 11:09 Name of Procedure: Left heart catheterization Aortic arch angiogram Findings/Procedure Note PROCEDURE NOTE: 67-year-old lady with history of coronary artery disease, stent to the right coronary artery, hypertension, hyperlipidemia and diabetes mellitus, had an abnormal stress test, scheduled for cardiac catheterization possible PTCA. After explaining the procedure to the patient, all pros and cons were explained, all questions were answered. The patient signed the consent and then she was placed on the cardiac catheterization laboratory. Groin was prepped SL fashion local anesthesia was used. Sheath placed in the right radial artery, [place] catheter was advanced to the left ventricular cavity, pressure was measured, pullback LV to aorta was done, engage the right and left coronary system, multiple views were obtained. Patient will be referred for bypass surgery I pulled the catheter to the aortic arch and aortic arch angiogram was done. At the end of the procedure the sheath was removed. Vascular band was used FINDINGS: Hemodynamics LV 128/14, end-diastolic pressure 14 Aorta 124/59 mean of 75 ANATOMY: Left Main is free of obstructive disease Left Anterior Descending has severe eccentric ostial LAD stenosis and severe mid LAD stenosis Left Circumflex has mild disease proximally and severe stenosis distally Right Coronary Artery is dominant artery with patent stent in the midportion, distally there is 50 to 60% stenosis LV Gram was not done, pressure was measured Aorta evaluation done with aortic arch angiogram showing calcification in the aorta, no dissection or aneurysm, normal origin of the brachiocephalic artery left carotid and left subclavian arteries. CONCLUSION: 1. Severe ostial LAD stenosis and mid LAD stenosis and mid to distal circumflex artery stenosis 2. Patent stent in the mid right coronary artery with 50 to 60% stenosis distally just above the bifurcation 3. Normal left ventricular end-diastolic pressure 4. Calcification in the aortic arch, no dissection or aneurysm, normal origin of the great vessels of the neck DISCUSSION AND RECOMMENDATION: Arrangement for evaluation for bypass surgery Anesthesia Type: Conscious Sedation Estimated blood loss (mL): 10 ml Contrast Amount: 51 ml Total Radiation Dose: 413 mGy Post-Procedure Diagnosis Post-operative diagnosis: Coronary artery disease Hypertension Hyperlipidemia Diabetes mellitus NEEMA EMMANUEL MD Jul 26, 2022 11:12
[2022-07-26] MEDS ORDERED: NS IV 1000 ML 1,000 ML IV SCH (11:15)
== END 2022-07-26 13:45 | disposition home or self-care (01) ==
LOC: CATH 11:00 → ICU 11:34 → CATH 13:45
PROVIDERS: ATTEND Internal Medicine Cardiovascular Disease
DX: I25.10 Atherosclerotic heart disease of native coronary artery without angina pectoris (principal); E78.5 Hyperlipidemia, unspecified; E11.22 Type 2 diabetes mellitus with diabetic chronic kidney disease; I12.9 Hypertensive chronic kidney disease with stage 1 through stage 4 chronic kidney disease, or unspecified chronic kidney disease; Z87.891 Personal history of nicotine dependence; E66.9 Obesity, unspecified; Z68.36 Body mass index [BMI] 36.0-36.9, adult; N18.30 Chronic kidney disease, stage 3 unspecified; E78.2 Mixed hyperlipidemia; Z79.4 Long term (current) use of insulin; Z79.899 Other long term (current) drug therapy; I65.22 Occlusion and stenosis of left carotid artery
CPT/HCPCS: 36221; 36415; 71045; 80053; 80061; 85027; 85610; 85730; 87081; 93005; 93458

== ENCOUNTER → 2022-07-31 | Outpatient (CLI) | payer MEDICARE, MEDICAID ==
[~2022-07-31] MED LIST changes: -HEParin (CATH LAB) 2,000 ML IV ONE; -HEParin 1000 UNIT/ML (10ML VIAL) FOR BOLUS ONE; -LIDOCAINE 1% INJ 30 ML (XYLOCAINE) VIAL ONE; -MIDAZOLAM 5 MG/5 ML (VERSED) VIAL ONE; -NITRO DRIP 25000 MCG/D5W 250 ML IV ONE; -NS IV 1000 ML 1,000 ML IV SCH; -NS IV 1000 ML 1,000 ML ONE; -VERAPAMIL 5 MG/2 ML (CALAN) VIAL IV ONE; -fentaNYL INJ 100 MCG/2 ML AMP ONE
--- NOTE | 2022-07-31 19:12 | Diagnostic Imaging Report ---
Indication: Routine screening Comparison is made with prior mammograms 07/28/2021 and 02/24/2020. Unilateral right 2-D and 3-D screening mammography was performed with CAD. Scattered fibroglandular densities are identified bilaterally. A benign nodule outer right breast is noted. No spiculated mass or malignant-appearing microcalcifications are seen. Right axilla is unremarkable. IMPRESSION: BI-RADS Category 2. No mammographic features suspicious for malignancy are identified. ACR BI-RADS Category 2: Benign findings. Result letter will be mailed to the patient. Note: At least 10% of breast cancer is not imaged by mammography. Dictated by: Dictated on workstation # [id number]
== END ==
LOC: RAD 10:45
PROVIDERS: ATTEND Nurse Practitioner
DX: Z12.31 Encounter for screening mammogram for malignant neoplasm of breast (principal); Z79.811 Long term (current) use of aromatase inhibitors; Z85.3 Personal history of malignant neoplasm of breast
CPT/HCPCS: 77063

== ENCOUNTER → 2022-08-30 | Outpatient (CLI) | payer MEDICARE, MEDICAID ==
[2022-08-30 11:42] LABS: ALBUMIN 3.7 GM/DL (3.2-4.5); BILIRUBIN,TOTAL 0.4 MG/DL (0.1-1.0); CALCIUM 9.8 MG/DL (8.5-10.1); CREATININE SERUM 1.21 MG/DL (0.60-1.30); TOTAL PROTEIN 7.8 GM/DL (6.4-8.2)
[2022-08-30 12:03] LABS: FREE T4 (FREE THYROXINE) 0.93 NG/DL (0.70-1.48)
== END ==
LOC: LAB 10:35
PROVIDERS: ATTEND Internal Medicine
DX: Z13.6 Encounter for screening for cardiovascular disorders (principal); E11.65 Type 2 diabetes mellitus with hyperglycemia; E03.9 Hypothyroidism, unspecified; I10 Essential (primary) hypertension
CPT/HCPCS: 36415; 80053; 82465; 83036; 84439; 84443; 84478

== ENCOUNTER → 2022-12-22 | Outpatient (CLI) | payer MEDICARE, MEDICAID ==
[2022-12-22 09:47] LABS: BASOPHILS # (AUTO) 0.1 10^3/uL (0.0-0.1); BASOPHILS % (AUTO) 2 % (0-10); EOSINOPHILS # (AUTO) 0.4 10^3/uL (0.0-0.3); EOSINOPHILS % (AUTO) 4 % (0-10); HEMATOCRIT 43 % (35-52); LYMPHOCYTES # (AUTO) 1.8 10^3/uL (1.0-4.0); LYMPHOCYTES % (AUTO) 19 % (12-44); MEAN CORPUSCULAR HEMOGLOBIN 26 pg (25-34); MEAN CORPUSCULAR HGB CONC 33 g/dL (32-36); MEAN CORPUSCULAR VOLUME 81 fL (80-99); MEAN PLATELET VOLUME 11.9 fL (9.0-12.2); MONOCYTES # (AUTO) 0.6 10^3/uL (0.0-1.0); MONOCYTES % (AUTO) 7 % (0-12); NEUTROPHILS # (AUTO) 6.4 10^3/uL (1.8-7.8); NEUTROPHILS % (AUTO) 68 % (42-75); PLATELET COUNT 254 10^3/uL (130-400); WHITE BLOOD COUNT 9.4 10^3/uL (4.3-11.0)
[2022-12-22 10:06] LABS: ALBUMIN 3.6 GM/DL (3.2-4.5); BILIRUBIN,TOTAL 0.3 MG/DL (0.1-1.0); CALCIUM 9.8 MG/DL (8.5-10.1); CREATININE SERUM 1.09 MG/DL (0.60-1.30); POTASSIUM 4.1 MMOL/L (3.6-5.0); TOTAL PROTEIN 7.7 GM/DL (6.4-8.2)
[2022-12-22 10:27] LABS: FREE T4 (FREE THYROXINE) 0.99 NG/DL (0.70-1.48)
== END ==
LOC: LAB 09:33
PROVIDERS: ATTEND Internal Medicine
DX: Z13.6 Encounter for screening for cardiovascular disorders (principal); E11.65 Type 2 diabetes mellitus with hyperglycemia; E03.9 Hypothyroidism, unspecified; I10 Essential (primary) hypertension
CPT/HCPCS: 36415; 80053; 80061; 83036; 84439; 84443; 85025

== ENCOUNTER 2023-03-28 06:30 | Inpatient (IN) | payer MEDICARE, MEDICAID ==
[~2023-03-28] VITALS: Ht 172.7 cm; Wt 110.2 kg
--- NOTE | 2023-03-28 06:49 | ED Chest Pain ---
General Stated Complaint: CHEST PAIN Source: patient, EMS Exam Limitations: no limitations History of Present Illness Date Seen by Provider: Mar 28, 2023 Time Seen by Provider: 06:35 Initial Comments Patient is a 68-year-old female who presents to the emergency room with a chief complaint of central low sternal chest pain that awoke her at 5 AM this morning from sleep. Patient states pain initially was a 10 out of 10 in severity. She states it got a little bit better when she sat up. It did not radiate. She did not get nauseous or sweaty. She states that she feels short of breath, but not short of breath at the same time. She has never had a pain like this before. She has a history of 6 prior stent placements, the most recent was placed at the beginning of 2022. She went to [place] for this. Her normal internal communications manager is Dr. Carver. She is on Plavix and baby aspirin daily. She is a diabetic. She quit smoking in 2014. She is on pantoprazole daily. She states that she ate dinner early yesterday around 430. She denies any recent illnesses such as fevers, chills, productive cough or congestion. No urinary complaints. No diarrhea. She has chronic swelling in her lower extremities and is on a "water pill". She states she is compliant with her daily medications. She is currently rating her pain at a "2" and believes it is getting better. EMS placed Nitropaste to the anterior chest wall prior to arrival, she did receive 324 mg of aspirin prior to arrival. Blood pressure is in the 140 systolic. Heart rate is in the 60s. Room air sats 93%. States that she does not have to use inhalers for her breathing. 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 FOOD ASSEMBLER: Yes NTG SL KITCHEN FOOD ASSEMBLER: Yes (nitropaste) Associated Symptoms: shortness of breath ("SOB but not SOB") Allergies and Home Medications Allergies Coded Allergies: chlorhexidine (Verified Allergy, Unknown, 02/06/18) codeine (Unverified Allergy, Unknown, Nausea, 06/05/21) scopolamine (Verified Allergy, Unknown, 02/06/18) Patient Home Medication List Home Medication List Reviewed: Yes Acetaminophen (Acetaminophen) 500 Mg Tablet, 1,000 MG PO Q6H PRN for PAIN-MILD (1-4), (Reported) Entered as Reported by: LIT HELM on 03/28/23 1508 Last Action: Reviewed Amlodipine Besylate (Amlodipine Besylate) 10 Mg Tablet, 10 MG PO HS, (Reported) Entered as Reported by: LIT HELM on 03/28/23 1508 Last Action: Reviewed Ascorbic Acid/Ascorbate Sodium (Vitamin C 500 mg Tablet Chew) 500 Mg Tab.chew, 500 MG PO 1500, (Reported) Entered as Reported by: CECY BARBOSA on 07/26/22 1000 Last Action: Reviewed Aspirin (Aspirin EC) 81 Mg Tablet., 81 MG PO DAILY, (Reported) Entered as Reported by: JESSICA SANDOVAL on 02/06/18 0749 Last Action: Reviewed Atorvastatin Calcium (Atorvastatin Calcium) 40 Mg Tablet, 40 MG PO HS, (Reported) Entered as Reported by: LIT HELM on 10/20/20 105 Last Action: Reviewed Cetirizine HCl (Cetirizine HCl) 10 Mg Tablet, 10 MG PO DAILY, (Reported) Entered as Reported by: CECY BARBOSA on 07/26/22 1000 Last Action: Reviewed Cholecalciferol (Vitamin D3) (D3-2000) 50 Mcg (2000 Unit) Capsule, 50 MCG PO 1500, (Reported) Entered as Reported by: LIT HELM on 10/20/20 105 Last Action: Reviewed Clopidogrel Bisulfate (Clopidogrel) 75 Mg Tablet, 75 MG PO DAILY, (Reported) Entered as Reported by: LIT HELM on 03/28/23 1508 Last Action: Reviewed Cyanocobalamin (Vitamin B-12) (Vitamin B-12) 1,000 Mcg Tablet, 1,000 MCG PO DAILY, (Reported) Entered as Reported by: LIT HELM on 03/28/23 1515 Last Action: Reviewed Dulaglutide (Trulicity) 1.5 Mg/0.5 Ml Pen.injctr, 1.5 MG SC WED, (Reported) Entered as Reported by: LIT HELM on 10/20/20 105 Last Action: Reviewed Duloxetine HCl (Duloxetine HCl) 30 Mg Capsule.dr, 30 MG PO HS, (Reported) Entered as Reported by: CECY BARBOSA on 10/5/22 1000 Last Action: Reviewed Empagliflozin (Jardiance) 10 Mg Tablet, 10 MG PO DAILY, (Reported) Entered as Reported by: CECY BARBOSA on 07/26/22999 Last Action: Reviewed Fenofibrate Nanocrystallized (Fenofibrate) 48 Mg Tablet, 48 MG PO HS, (Reported) Entered as Reported by: CECY BARBOSA on 07/26/22999 Last Action: Reviewed Folic Acid (Folic Acid) 0.8 Mg Tablet, 0.8 MG PO 1500, (Reported) Entered as Reported by: JESSICA SANDOVAL on 02/06/18 5982 Last Action: Reviewed Furosemide (Furosemide) 40 Mg Tablet, 40 MG PO DAILY, (Reported) Entered as Reported by: CECY BARBOSA on 07/26/22999 Last Action: Reviewed Gabapentin (Gabapentin) 600 Mg Tablet, 600 MG PO 1500, (Reported) Entered as Reported by: LIT HELM on 03/28/23 1508 Last Action: Reviewed Insulin Glargine,Hum.rec.anlog (Lantus Solostar) 100 Unit/Ml (3 Ml) Insuln.pen, 49 UNITS SC BID, (Reported) Entered as Reported by: LIT HELM on 03/28/23 150 Last Action: Reviewed Insulin Lispro (Insulin Lispro Kwikpen U-100) 100 Unit/Ml Insuln.pen, 20 UNITS SC AC, (Reported) Entered as Reported by: LIT HELM on 03/28/23 150 Last Action: Reviewed Letrozole (Letrozole) 2.5 Mg Tablet, 2.5 MG PO HS, (Reported) Entered as Reported by: DIVINA NEVILLE on 08/03/16 1341 Last Action: Reviewed Magnesium Oxide (Magnesium Oxide) 400 Mg Tablet, 400 MG PO TID, (Reported) Entered as Reported by: DEON MUNOZ on 07/26/18 1138 Last Action: Reviewed Metoprolol Tartrate (Metoprolol Tartrate) 25 Mg Tablet, 25 MG PO BID, (Reported) Entered as Reported by: JESSICA SANDOVAL on 02/06/18 1189 Last Action: Reviewed Montelukast Sodium (Montelukast Sodium) 10 Mg Tablet, 10 MG PO DAILY, (Reported) Entered as Reported by: CECY BARBOSA on 07/26/22999 Last Action: Reviewed [place]-3 Fatty Acids/Fish Oil (Fish Oil 1,200 mg Softgel) 1 Each Capsule, 1 EACH PO TID, (Reported) Entered as Reported by: LIT HELM on 10/20/201056 Last Action: Reviewed Oxybutynin Chloride (Oxybutynin Chloride) 5 Mg Tablet, 5 MG PO BID, (Reported) Entered as Reported by: LIT HELM on 03/28/23 1508 Last Action: Reviewed Pantoprazole Sodium (Pantoprazole Sodium) 40 Mg Tablet.dr, 40 MG PO DAILY, (Reported) Entered as Reported by: LIT HELM on 10/20/201056 Last Action: Reviewed Discontinued Medications Amlodipine Besylate (Norvasc) 5 Mg Tablet, 5 MG PO DAILY Discontinued Reason: Duplicate Order Prescribed by: MADINA MCCARTY on 06/06/211057 Last Action: Discontinued Cyanocobalamin (Vitamin B-12) (Vitamin B12) 2,500 Mcg Tablet, 2,500 MCG PO DAILY, (Reported) Discontinued Reason: Prescription changed Entered as Reported by: CECY BARBOSA on 07/26/22999 Last Action: Last Taken Edited Gabapentin (Neurontin) 300 Mg Capsule, 600 MG PO HS, (Reported) Discontinued Reason: No Longer Taking Entered as Reported by: LIT HELM on 10/20/201056 Last Action: Discontinued Insulin Aspart (Novolog Flexpen) 100 Unit/Ml (3 Ml) Solution, 20 UNITS SQ AC, (Reported) Discontinued Reason: New Order Entered as Reported by: CECY BARBOSA on 07/26/22999 Last Action: Discontinued Insulin Glargine,Hum.rec.anlog (Basaglar Kwikpen U-100) 100 Unit/Ml (3 Ml) Insuln.pen, 49 UNIT SQ BID, (Reported) Discontinued Reason: Duplicate Order Entered as Reported by: CECY BARBOSA on 07/26/22999 Last Action: Discontinued Review of Systems Review of Systems Constitutional: see HPI EENTM: No Symptoms Reported Respiratory: Shortness of Air Cardiovascular: Chest Pain, Edema Gastrointestinal: No Symptoms Reported Musculoskeletal: no symptoms reported Skin: no symptoms reported Psychiatric/Neurological: No Symptoms Reported All Other Systems Reviewed Negative Unless Noted: Yes Past Uxlnjly-Lkqlbb-Srlyxw Hx Immunizations Up To Date Tetanus Booster (TDap): More than 5yrs Seasonal Allergies Seasonal Allergies: No Past Medical History Surgeries: Yes (LEFT BREAST MASTECTOMY, 6 LYMPH NODE REMOVED,BILAT CTR, L ULNAR NERVE, PORT) Coronary Stent, Gallbladder, Joint Replacement, Tubal Ligation Respiratory: No Sleep Apnea Cardiac: Yes (NONSTEMI) Coronary Artery Disease, High Cholesterol, Hypertension Neurological: Yes (PERIPHERAL NEUROPATHY-FEET) Neuropathy Reproductive Disorders: No Female Reproductive Disorders: Denies Sexually Transmitted Disease: No HIV/AIDS: No Genitourinary: Yes (CHRONIC RENAL INSUFFICIENCY) Bladder Infection, Kidney Stones, Renal Failure Gastrointestinal: No (S/P JENNIFRE) Gastroesophageal Reflux Musculoskeletal: Yes Arthritis, Chronic Back Pain Endocrine: Yes Diabetes, Insulin dep HEENT: No Loss of Vision: Bilateral Hearing Impairment: Denies Cancer: Yes (LEFT BREAST CA, LYMPH NODES) Breast Did You Recieve Any Treatments: Yes What Type of Treatment Did You: Chemotherapy, Radiation, Surgical Intervention Psychosocial: No Integumentary: No Blood Disorders: Yes (ANEMIA) Adverse Reaction/Blood Tranf: No (N/A) Family Medical History Asthma G8 SISTER Cardiovascular disease 19 FATHER Diabetes mellitus G8 SISTER FH: breast cancer SISTER FH: leukemia 19 MOTHER, , Age:52 Psychosocial problem G8 SISTER No Family History of: AIDS Abdominal aortic aneurysm [place]'s disease Alcoholism Alzheimer's disease Arthritis Cancer of mouth Colon cancer Completed stroke Dementia Drug abuse Kidney disease Myocardial infarction Parkinson's disease Prostate cancer Respiratory disorder Seizure disorder Severe allergy Thyroid disease Tuberculosis No Pertinent Family Hx Physical Exam Vital Signs Vital Signs - First Documented 03/28/23 06:32 Temp 36.8 Pulse 70 Resp 22 B/P (MAP) 146/65 (92) Pulse Ox 95 O2 Delivery Room Air Capillary Refill : Height, Weight, BMI Height: 5'9.00" Weight: 230lbs. 0.0oz. 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 Norm as Tested Skin: Normal Color, Warm/Dry Procedures/Interventions Date of ETT Placement: Nov 01, 2020 Time of ETT Placement: 624 Progress/Results/Core Measures Results/Orders Lab Results Laboratory Tests Test 03/28/23 06:36 03/28/23 09:06 Range/Units White Blood Count 10.1 4.3-11.0 10^3/uL Red Blood Count 5.24 H 3.80-5.11 10^6/uL Hemoglobin 14.0 11.5-16.0 g/dL Hematocrit 43 35-52 % Mean Corpuscular Volume 81 80-99 fL Mean Corpuscular Hemoglobin 27 25-34 pg Mean Corpuscular Hemoglobin Concent 33 32-36 g/dL Red Cell Distribution Width 16.5 H 10.0-14.5 % Platelet Count 256 130-400 10^3/uL Mean Platelet Volume 12.5 H 9.0-12.2 fL Immature Granulocyte % (Auto) 1 % Neutrophils (%) (Auto) 69 42-75 % Lymphocytes (%) (Auto) 19 12-44 % Monocytes (%) (Auto) 7 0-12 % Eosinophils (%) (Auto) 3 0-10 % Basophils (%) (Auto) 1 0-10 % Neutrophils # (Auto) 6.9 1.8-7.8 10^3/uL Lymphocytes # (Auto) 1.9 1.0-4.0 10^3/uL Monocytes # (Auto) 0.7 0.0-1.0 10^3/uL Eosinophils # (Auto) 0.3 0.0-0.3 10^3/uL Basophils # (Auto) 0.1 0.0-0.1 10^3/uL Immature Granulocyte # (Auto) 0.1 0.0-0.1 10^3/uL Prothrombin Time 12.8 12.2-14.7 SEC INR Comment 0.9 0.8-1.4 Activated Partial Thromboplast Time 29 24-35 SEC Sodium Level 141 135-145 MMOL/L Potassium Level 3.9 3.6-5.0 MMOL/L Chloride Level 108 H 98-107 MMOL/L Carbon Dioxide Level 22 21-32 MMOL/L Anion Gap 11 5-14 MMOL/L Blood Urea Nitrogen 24 H 7-18 MG/DL Creatinine 1.18 0.60-1.30 MG/DL Estimat Glomerular Filtration Rate 50 BUN/Creatinine Ratio 20 Glucose Level 249 H 70-105 MG/DL Calcium Level 9.6 8.5-10.1 MG/DL Corrected Calcium 9.8 8.5-10.1 MG/DL Magnesium Level 1.6 1.6-2.4 MG/DL Total Bilirubin 0.3 0.1-1.0 MG/DL Aspartate Amino Transf (AST/SGOT) 19 5-34 U/L Alanine Aminotransferase (ALT/SGPT) 22 0-55 U/L Alkaline Phosphatase 68 40-136 U/L Troponin I < 0.028 0.348 *H <0.028 NG/ML B-Type Natriuretic Peptide 28.6 <100.0 PG/ML Total Protein 7.9 6.4-8.2 GM/DL Albumin 3.7 3.2-4.5 GM/DL My Orders Orders - JIM ROCHE MD Ekg Tracing (03/28/23 06:38) Cbc With Automated Diff (03/28/23 06:49) Magnesium (03/28/23 06:49) Chest 1 View, Ap/Pa Only (03/28/23 06:49) Ekg Tracing (03/28/23 06:49) Comprehensive Metabolic Panel (03/28/23 06:49) Protime With Inr (03/28/23 06:49) Partial Thromboplastin Time (03/28/23 06:49) O2 (03/28/23 06:49) Monitor-Rhythm Ecg Trace Only (03/28/23 06:49) Lipid Panel (03/29/23 06:00) Ed Iv/Invasive Line Start (03/28/23 06:49) Troponin I [place] (03/28/23 06:49) Morphine Injection (Morphine Injection (03/28/23 08:02) Bnp [place] (03/28/23 08:04) Troponin I [place] (03/28/23 09:00) Vital Signs/I&O 03/28/23 06:32 Temp 36.8 Pulse 70 Resp 22 B/P (MAP) 146/65 (92) Pulse Ox 95 O2 Delivery Room Air Progress Progress Note #1: Time: 08:03 Progress Note re-checked, pain a "4". no nausea. pain has moved to the right side of her chest. advised patient we would recheck a troponin at 0900. SBP 160 Progress Note #2: Time: 09:45 Progress Note Patient was seen and evaluated by me. Evaluation today includes physical exam, "cardiac work-up" to include CBC, Chem-12, magnesium, troponin x2, BNP, coag profile, EKG and chest x-ray. Pertinent physical exam findings well-developed well-nourished female in no acute distress. Stable vital signs, slightly hypertensive with systolic blood pressure 140s. Not tachycardic, not hypoxic. Heart is regular, lungs are clear. Abdomen is soft. No reproducible chest wall tenderness. Patient has IAN hose in place with 2-3+ edema in the bilateral lower extremities. No calf tenderness. No focal neurologic deficits. Differential diagnosis based on history and physical exam, acute coronary syndrome, congestive heart failure exacerbation. Labs and imaging, EKG independently reviewed by me. CBC is completely normal, coag profile normal. Comprehensive metabolic panel shows a glucose of 249 otherwise all within normal limits. BNP 28.6. Troponin elevated over the course of 4 hours from undetectable to 0.348. Chest x-ray does demonstrate increased pulmonary vascular congestion. EKG is unremarkable for any acute ST segment elevation or depression. Patient was treated with 4 mg of IV morphine for her chest pain that she was rating at a "2 or 3". She had previously been given full-strength aspirin as well as Nitropaste to the skin. Case was discussed with Dr. Carver the patient's internal communications manager who indicated he would be taking her to the Global Sourcing Manager momentarily. I also discussed the case with Dr. Mccarty, the patient's primary care physician who will assume care once Dr. Carver has completed the heart cath. Patient is informed of the plan of care. All questions are sought and answered. Initial ECG Impression Date: Mar 28, 2023 Initial ECG Impression Time: 06:42 Initial ECG Rate: 67 Initial ECG Intervals DC 215 QRS 118 QTc 423 Comment Q waves inferiorly (II and aVF) No ST elevation or depression; no ectopy Diagnostic Imaging Diagonstic Imaging: Xray Plain Films/CT/US/NM/MRI: chest Comments [facility] [employer] [place], [place] NAME: F[facility] [place] [facility] REC#: [id number] PT STATUS: REG ER : 1955 PHYSICIAN: JIM ROCHE MD ADMIT DATE: 03/28/23/ER Draft Date of Exam:03/28/23 CHEST 1 VIEW, AP/PA ONLY INDICATION: Chest pain EXAMINATION: Chest 03/28/2023 COMPARISON: 07/26/2022 FINDINGS: Heart is prominent. Pulmonary vasculature is mildly congested with findings of likely bibasilar infiltrates. No effusions. No pneumothorax. IMPRESSION: 1. Pulmonary vascular congestion 2. Question mild bibasilar infiltrates. Dictated on workstation # [id number] Dict: 03/28/2336 Trans: 03/28/23 0738 [facility] [id number] Interpreted by: JOHNNIE BELL MD Electronically signed by: Departure Communication (Admissions) Time/Spoke to Admitting Phy: 09:[address] Mccarty - her [facility] practice doc Time/Spoke to Consulting Phy: 09:[address] Wen White Primary Impression: NSTEMI (non-ST elevated myocardial infarction) Additional Impression: History of coronary artery disease Disposition: ADMITTED INPATIENT Condition: Stable Admissions Decision to Admit Reason: Admit from ER (General) Decision to Admit/Date: Mar 28, 2023 Time/Decision to Admit Time: 09:50 Departure-Patient Inst. Referrals: MADINA MCCARTY DO (PCP/Family) Primary Care Physician JIM ROCHE MD Mar 28, 2023 06:49
[2023-03-28 06:55] LABS: BASOPHILS # (AUTO) 0.1 10^3/uL (0.0-0.1); BASOPHILS % (AUTO) 1 % (0-10); EOSINOPHILS # (AUTO) 0.3 10^3/uL (0.0-0.3); EOSINOPHILS % (AUTO) 3 % (0-10); HEMATOCRIT 43 % (35-52); LYMPHOCYTES # (AUTO) 1.9 10^3/uL (1.0-4.0); LYMPHOCYTES % (AUTO) 19 % (12-44); MEAN CORPUSCULAR HEMOGLOBIN 27 pg (25-34); MEAN CORPUSCULAR HGB CONC 33 g/dL (32-36); MEAN CORPUSCULAR VOLUME 81 fL (80-99); MEAN PLATELET VOLUME 12.5 fL (9.0-12.2); MONOCYTES # (AUTO) 0.7 10^3/uL (0.0-1.0); MONOCYTES % (AUTO) 7 % (0-12); NEUTROPHILS # (AUTO) 6.9 10^3/uL (1.8-7.8); NEUTROPHILS % (AUTO) 69 % (42-75); PLATELET COUNT 256 10^3/uL (130-400); WHITE BLOOD COUNT 10.1 10^3/uL (4.3-11.0)
[2023-03-28 07:02] LABS: INR 0.9 (0.8-1.4); PROTHROMBIN TIME PATIENT 12.8 SEC (12.2-14.7)
[2023-03-28 07:04] LABS: ALBUMIN 3.7 GM/DL (3.2-4.5); CHLORIDE 108 MMOL/L (98-107); POTASSIUM 3.9 MMOL/L (3.6-5.0)
[2023-03-28 07:05] LABS: SODIUM 141 MMOL/L (135-145)
[2023-03-28 07:06] LABS: CALCIUM 9.6 MG/DL (8.5-10.1)
[2023-03-28 07:07] LABS: GLUCOSE 249 MG/DL (70-105); TOTAL PROTEIN 7.9 GM/DL (6.4-8.2)
[2023-03-28 07:08] LABS: CARBON DIOXIDE 22 MMOL/L (21-32)
[2023-03-28 07:09] LABS: BILIRUBIN,TOTAL 0.3 MG/DL (0.1-1.0)
[2023-03-28 07:10] LABS: ALKALINE PHOSPHATASE 68 U/L (40-136); CREATININE SERUM 1.18 MG/DL (0.60-1.30); GFR ESTIMATED 50
[2023-03-28 07:11] LABS: BUN/CREATININE RATIO 20
[2023-03-28 07:13] LABS: ALANINE AMINOTRANSFERASE 22 U/L (0-55); MAGNESIUM 1.6 MG/DL (1.6-2.4)
--- NOTE | 2023-03-28 07:38 | Diagnostic Imaging Report ---
INDICATION: Chest pain EXAMINATION: Chest 03/28/2023 COMPARISON: 07/26/2022 FINDINGS: Heart is prominent. Pulmonary vasculature is mildly congested with findings of likely bibasilar infiltrates. No effusions. No pneumothorax. IMPRESSION: 1. Pulmonary vascular congestion 2. Question mild bibasilar infiltrates. Dictated by: Dictated on workstation # [id number]
[2023-03-28] MEDS ORDERED: morphine INJ 10 MG/ML 1ML (SYR OR VIAL) IVP STA (08:02)
[2023-03-28] MEDS ORDERED: fentaNYL INJ 100 MCG/2 ML AMP ONE (10:03)
[2023-03-28] MEDS ORDERED: MIDAZOLAM 5 MG/5 ML (VERSED) VIAL ONE (10:03)
[2023-03-28] MEDS ORDERED: NS IV 1000 ML 1,000 ML ONE (10:04)
[2023-03-28] MEDS ORDERED: LIDOCAINE 1% INJ 20 ML VIAL ONE (10:04)
[2023-03-28] MEDS ORDERED: NITRO DRIP 25000 MCG/D5W 0 ML IV ONE (10:04)
[2023-03-28] MEDS ORDERED: HEParin (CATH LAB) 2,000 ML IV ONE (10:04)
[2023-03-28] MEDS ORDERED: HEParin 1000 UNIT/ML (10ML VIAL) FOR BOLUS ONE (10:04)
[2023-03-28 10:10] VITALS: BP 149/60
--- NOTE | 2023-03-28 10:11 | Consultation-Cardiology ---
HPI-Cardiology Cardiology Consultation Date of Consultation 03/28/23 Date of Admission Time Seen by Provider: 10:07 Indication: Chest pain HPI 68-year-old lady with history of coronary artery disease, multiple intervention, was in her usual state of health, woke up at 4 in the morning with acute chest pain, described as dull in nature radiating to the back associated with shortne ss of breath, lightheadedness. Patient came into the emergency room, responded to sublingual nitroglycerin and aspirin. On my evaluation she was feeling better. Noted to have elevation in troponin level. Home Medications & Allergies Allergies: Coded Allergies: chlorhexidine (Verified Allergy, Unknown, 02/06/18) codeine (Unverified Allergy, Unknown, Nausea, 06/05/21) scopolamine (Verified Allergy, Unknown, 02/06/18) Home Medication List Reviewed: Yes HUV-Ggwqjw-Uxlcji Hx Patient Social History Marital Status: Employed/Student: retired Smoking Status: Former Smoker Former smoker/When Quit: Jan 20, 2015 Type Used: Cigarettes Recent Hopitalizations: No Alcohol Use?: No Immunizations Up To Date Tetanus Booster (TDap): More than 5yrs Date of Pneumonia Vaccine: Aug 08, 2016 Past Medical History Discussed below Family Medical History Significant Family History: No Pertinent Family Hx Family History: Asthma G8 SISTER Cardiovascular disease 19 FATHER Diabetes mellitus G8 SISTER FH: breast cancer SISTER FH: leukemia 19 MOTHER, , Age:52 Psychosocial problem G8 SISTER No Family History of: AIDS Abdominal aortic aneurysm Osorio's disease Alcoholism Alzheimer's disease Arthritis Cancer of mouth Colon cancer Completed stroke Dementia Drug abuse Kidney disease Myocardial infarction Parkinson's disease Prostate cancer Respiratory disorder Seizure disorder Severe allergy Thyroid disease Tuberculosis Review of Systems-General Review of Systems Constitutional: see HPI EENTM: see HPI, no symptoms reported Respiratory: see HPI; No cough; dyspnea on exertion; No hemoptysis, No orthopnea, No phlegm; short of breath; No stridor, No wheezing, No other Cardiovascular: see HPI, chest pain; No edema, No Hx of Intervention, No palpitations, No syncope, No vascular heart diseas, No other Gastrointestinal: no symptoms reported, see HPI Genitourinary: no symptoms reported, see HPI Musculoskeletal: no symptoms reported Skin: no symptoms reported Psychiatric/Neurological: No Symptoms Reported All Other Systems Reviewed Negative Unless Noted: Yes Reviewed Test Results Reviewed Test Results Lab Laboratory Tests Test 03/28/23 06:36 03/28/23 09:06 Range/Units White Blood Count 10.1 4.3-11.0 10^3/uL Red Blood Count 5.24 H 3.80-5.11 10^6/uL Hemoglobin 14.0 11.5-16.0 g/dL Hematocrit 43 35-52 % Mean Corpuscular Volume 81 80-99 fL Mean Corpuscular Hemoglobin 27 25-34 pg Mean Corpuscular Hemoglobin Concent 33 32-36 g/dL Red Cell Distribution Width 16.5 H 10.0-14.5 % Platelet Count 256 130-400 10^3/uL Mean Platelet Volume 12.5 H 9.0-12.2 fL Immature Granulocyte % (Auto) 1 % Neutrophils (%) (Auto) 69 42-75 % Lymphocytes (%) (Auto) 19 12-44 % Monocytes (%) (Auto) 7 0-12 % Eosinophils (%) (Auto) 3 0-10 % Basophils (%) (Auto) 1 0-10 % Neutrophils # (Auto) 6.9 1.8-7.8 10^3/uL Lymphocytes # (Auto) 1.9 1.0-4.0 10^3/uL Monocytes # (Auto) 0.7 0.0-1.0 10^3/uL Eosinophils # (Auto) 0.3 0.0-0.3 10^3/uL Basophils # (Auto) 0.1 0.0-0.1 10^3/uL Immature Granulocyte # (Auto) 0.1 0.0-0.1 10^3/uL Prothrombin Time 12.8 12.2-14.7 SEC INR Comment 0.9 0.8-1.4 Activated Partial Thromboplast Time 29 24-35 SEC Sodium Level 141 135-145 MMOL/L Potassium Level 3.9 3.6-5.0 MMOL/L Chloride Level 108 H 98-107 MMOL/L Carbon Dioxide Level 22 21-32 MMOL/L Anion Gap 11 5-14 MMOL/L Blood Urea Nitrogen 24 H 7-18 MG/DL Creatinine 1.18 0.60-1.30 MG/DL Estimat Glomerular Filtration Rate 50 BUN/Creatinine Ratio 20 Glucose Level 249 H 70-105 MG/DL Calcium Level 9.6 8.5-10.1 MG/DL Corrected Calcium 9.8 8.5-10.1 MG/DL Magnesium Level 1.6 1.6-2.4 MG/DL Total Bilirubin 0.3 0.1-1.0 MG/DL Aspartate Amino Transf (AST/SGOT) 19 5-34 U/L Alanine Aminotransferase (ALT/SGPT) 22 0-55 U/L Alkaline Phosphatase 68 40-136 U/L Troponin I < 0.028 0.348 *H <0.028 NG/ML B-Type Natriuretic Peptide 28.6 <100.0 PG/ML Total Protein 7.9 6.4-8.2 GM/DL Albumin 3.7 3.2-4.5 GM/DL Physical Exam Physical Exam Vital Signs Vital Signs - First Documented 03/28/23 06:32 Temp 36.8 Pulse 70 Resp 22 B/P (MAP) 146/65 (92) Pulse Ox 95 O2 Delivery Room Air Capillary Refill : Less Than 3 Seconds Height, Weight, BMI Height: 5'9.00" Weight: 230lbs. 0.0oz. 104.810374ik; 36.00 BMI Method:Stated General Appearance: WD/WN, Anxious, Obese Eyes: Bilateral Eye Normal Inspection, Bilateral Eye PERRL, Bilateral Eye EOMI HEENT: PERRL/EOMI Neck: Full Range of Motion, Normal Inspection, Non Tender, Supple, Carotid Bruit Respiratory: Lungs Clear, Normal Breath Sounds, No Accessory Muscle Use, No Respiratory Distress Cardiovascular: Regular Rate, Rhythm, Normal Peripheral Pulses Gastrointestinal: Soft Back: Normal Inspection, No CVA Tenderness, No Vertebral Tenderness Extremity: Pedal Edema (3+ (kishor hose in place Bilat LE)) Neurologic/Psychiatric: Alert, Oriented x3, No Motor/Sensory Deficits, Normal Mood/Affect, 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 Cardiac catheterization January 2018 had mild to moderate disease with patent stent in the right coronary artery. Stress test in June 2022 was abnormal. Cardiac catheterization done in July 2022 with severe ostial LAD stenosis, mid LAD stenosis and mid to distal circumflex artery stenosis with patent stent in the mid right coronary artery, 50 to 60% distally above the bifurcation. Patient was referred for evaluation for CABG with Dr. PAYNE. Seen Dr. Asencio and had Rotablator and stenting x4 in October 2022 Maintained on aspirin and Plavix Planning to proceed with cardiac catheterization. 2D echo in October 2021 with normal LV size, EF 55 to 60% Hypertension, restart home medication Intolerant to JEFE inhibitor and/or ARB due to renal insufficiency Hyperlipidemia maintained on Lipitor 40 mg daily Monitor lipids History of mild pedal edema History of breast cancer invasive ductal carcinoma of the left breast had modified radical mastectomy and axillary node dissection in 2014 Received radiation therapy to the chest. Chronic kidney disease stage IV Diabetes mellitus, followed and managed by primary care physician Moderate right carotid artery stenosis, mild left carotid stenosis, ultrasound done in May 2022 Clinical Quality Measures AMI/AHF: ASA po Prior to arrival: Yes NEEMA EMMANUEL MD Mar 28, 2023 10:11
--- NOTE | 2023-03-28 10:12 | Cardiac Procedure Note-CS/ASA ---
Pre-Procedure Note Pre-Op Procedure Note Date of Available H&P: Mar 28, 2023 Date H&P Reviewed: Mar 28, 2023 Time H&P Reviewed: 10:12 History & Physical: H&P Reviewed, Patient Examed, No changes noted Pre-Operative Diagnosis: CAD Moderate Sedation PreProcedure Time 10:12 ASA Score 3 Airway Lungs Heart ASA score ASA 1: a normal healthy patient ASA 2: a patient with a mild systemic disease (mid diabetes, controlled hypertension, obesity ASA 3: a patient with a severe systemic disease that limits activity (angina, COPD, prior Myocardial infarction) ASA 4: a patient with an incapacitating disease that is a constant threat to life (CHF, renal failure) ASA 5: a moribund patient not expected to survive 24 hrs. (ruptured aneurysm) ASA 6: a declared brain- patient whose organs are being harvested. For emergent operations, add the letter E after the classification Mallampati Classification Grade 3 Sedation Plan Analgesia, Amnesia, Plan communicated to team members, Discussed options with patient/fam, Discussed risks with patient/fam The patient is an appropriate candidate to undergo the planned procedure, sedation, and anesthesia. The patient immediately re-assessed prior to indication. NEEMA EMMANUEL MD Mar 28, 2023 10:12
[2023-03-28] MEDS ORDERED: CLOPIDOGREL 300 MG (PLAVIX) TABLET PO ONE (10:52)
[2023-03-28] MEDS ORDERED: ASPIRIN 325 MG (5 GR) TABLET ONE (10:52)
--- NOTE | 2023-03-28 10:59 | Cardiac Cath Report ---
Cardiac Cath Report Physician (s)/Text Transcriber (s) Physician NEEMA EMMANUEL MD Pre-Procedure Diagnosis Pre-Procedure Diagnosis: Non-ST elevation myocardial infarction Post-Procedure Note Procedure Start Date: Mar 28, 2023 Name of Procedure: Left heart catheterization Emergency balloon angioplasty to the LAD Findings/Procedure Note PROCEDURE NOTE: 68-year-old lady with history of coronary artery disease multiple intervention in the past, admitted with non-ST elevation myocardial infarction, emergency cardiac catheterization was advised. After explaining the procedure to the patient, all pros and cons were explained, all questions were answered. The patient signed the consent and then she was placed in the cardiac catheterization laboratory. Groin was prepped in SL fashion local anesthesia was used. Sheath placed in the right femoral artery. Karen' right and left catheter were used to access the coronary system. Karen right was prolapsed to the left ventricular cavity, pressure was measured, pullback LV to aorta was done. Patient had total occlusion 100% occlusion of the mid LAD within the stent Attempted with Karen left guide without success, I used a EBU 3.5 guide. Runway wire was advanced through the total occlusion with difficulty. I proceeded with noncompliant 3 x 20 balloon did multiple inflation, post inflation there was no residual stenosis with successful procedure. At the end of the procedure the sheath was removed. Closure device was deployed FINDINGS: Hemodynamics LV 154/21, end-diastolic pressure of 21 Aorta 160/65 mean of 193 ANATOMY: Left Main is free of obstructive disease Left Anterior Descending moderate in size, had multiple stents in the midportion, total occlusion within the stent. Successful emergency balloon angioplasty using noncompliant balloon with 0% residual stenosis Left Circumflex is moderate in size with patent stent in the mid circumflex artery Right Coronary Artery is dominant artery moderate in size with patent stent in the mid right coronary artery LV Gram was not done, pressure was measured PERCUTANEOUS INTERVENTION: Pre stenosis 100% Post Stenosis 0% Pre NORBERTO flow 1 Post NORBERTO flow 3 Dominance right coronary artery CONCLUSION: Acute non-ST elevation myocardial infarction with emergency balloon angioplasty to totally occluded LAD with no residual stenosis 100% in-stent restenosis in the mid LAD successful balloon angioplasty using NC trek 3 x 20 with multiple inflation with 0% residual stenosis and reestablishment of flow Patent stents in the circumflex artery and dominant right coronary artery Elevated left ventricular end-diastolic pressure DISCUSSION AND RECOMMENDATION: Patient was loaded again with aspirin and Plavix, increase Lipitor to 80 mg daily. Continue to maximize medical therapy Anesthesia Type: Conscious Sedation Estimated blood loss (mL): 25 ml Contrast Amount: 80 ml Post-Procedure Diagnosis Post-operative diagnosis: Non-ST elevation myocardial infarction Coronary artery disease Hypertension Hyperlipidemia NEEMA EMMANUEL MD Mar 28, 2023 10:59
[2023-03-28] MEDS ORDERED: PATIENT MAY USE OWN MEDS, ALL PO SCH (11:00)
--- NOTE | 2023-03-28 12:03 | History & Physical ---
History of Present Illness HPI/Chief Complaint CC: NSTEMI s/p cath with intervention HPI: This is a 68yoWF clinic patient of mine who is a long COVID survivor with h/o CAD and multiple stents in the past along with O2 dependent COPD who presented to the ER with CP and slightly elevated troponin and brought to scientific laboratory supervisor revealing obstructed CAD requiring intervention. Currently she is pain free and family at bedside. Source: patient, family Exam Limitations: clinical condition Date Seen 03/28/23 Time Seen by a Provider: 12:00 Attending Physician Selene Law DO PCP Admitting Physician: Twyla Carver MD Attending Physician: Twyla Carver MD Referring Physician Date of Admission Mar 28, 2023 at 11:39 Home Medications & Allergies Home Medications Reviewed patient Home Medication Reconciliation performed by pharmacy medication reconciliations site technician and/or nursing. Patients Allergies have been reviewed. Allergies Allergies Coded Allergies chlorhexidine (Verified Allergy, Unknown, 02/06/18) codeine (Unverified Allergy, Unknown, Nausea, 06/05/21) scopolamine (Verified Allergy, Unknown, 02/06/18) Past Cendptx-Dvwfxn-Wapnvl Hx Past Med/Social Hx: Reviewed Nursing Past Med/Soc Hx, Reviewed and Corrections made Patient Social History Marrital Status: single Employed/Student: retired Smoking Status: Former Smoker Former Smoker, Quit: Feb 06, 2015 Type Used: Cigarettes Recent Hopitalizations: No Immunizations Up To Date Tetanus Booster (TDap): More than 5yrs Date of Pneumonia Vaccine: Aug 08, 2016 Seasonal Allergies Seasonal Allergies: No Past Medical History Surgeries: Coronary Stent, Gallbladder, Joint Replacement, Tubal Ligation COVID-19 pneumonia severe Cardiac: Coronary Artery Disease, High Cholesterol, Hypertension Neurological: Neuropathy Reproductive: No Sexually Transmitted Disease: No HIV/AIDS: No Female Reproductive Disorders: Denies Genitourinary: Bladder Infection, Kidney Stones, Renal Failure Gastrointestinal: Gastroesophageal Reflux Musculoskeletal: Arthritis, Chronic Back Pain Endocrine: Diabetes, Insulin dep Loss of Vision: Bilateral Hearing Impairment: Denies Cancer: Breast Did You Recieve Any Treatments: Yes What Type of Treatment Did You: Chemotherapy, Radiation, Surgical Intervention History of Blood Disorders: Yes (ANEMIA) Adverse Reaction to Blood Simms: No (N/A) Family History Asthma G8 SISTER Cardiovascular disease 19 FATHER Diabetes mellitus G8 SISTER FH: breast cancer SISTER FH: leukemia 19 MOTHER, , Age:52 Psychosocial problem G8 SISTER No Family History of: AIDS Abdominal aortic aneurysm [place]'s disease Alcoholism Alzheimer's disease Arthritis Cancer of mouth Colon cancer Completed stroke Dementia Drug abuse Kidney disease Myocardial infarction Parkinson's disease Prostate cancer Respiratory disorder Seizure disorder Severe allergy Thyroid disease Tuberculosis No Pertinent Family Hx Review of Systems Constitutional: see HPI Cardiovascular: chest pain Physical Exam Physical Exam Vital Signs Vital Signs - First Documented 03/28/23 03/28/23 06:32 23:33 Temp 36.8 Pulse 70 Resp 22 B/P (MAP) 146/65 (92) Pulse Ox 95 O2 Delivery Room Air O2 Flow Rate 0.00 Capillary Refill : Less Than 3 Seconds Height, Weight, BMI Height: 5'9.00" Weight: 230lbs. 0.0oz. 104.775804rd; 36.00 BMI Method:Stated General Appearance: WD/WN, Anxious, Chronically ill, Obese Eyes: Bilateral Eye Normal Inspection, Bilateral Eye PERRL, Bilateral Eye EOMI HEENT: PERRL/EOMI Neck: Full Range of Motion, Normal Inspection, Non Tender, Supple, Carotid Bruit Respiratory: Lungs Clear, Normal Breath Sounds, No Accessory Muscle Use, No Respiratory Distress Cardiovascular: Regular Rate, Rhythm, Normal Peripheral Pulses Gastrointestinal: Soft Back: Normal Inspection, No CVA Tenderness, No Vertebral Tenderness Extremity: Pedal Edema (3+ (kishor hose in place Bilat LE)) Neurologic/Psychiatric: Alert, Oriented x3, No Motor/Sensory Deficits, Normal Mood/Affect, floor layer II-XII Norm as Tested Skin: Normal Color, Warm/Dry Lymphatic: No Adenopathy Results Results/Procedures Labs Laboratory Tests 03/28/23 06:36 Patient resulted labs reviewed. Assessment/Plan Admission Diagnosis Assessment: NSTEMI with intervention on cath DM HTN HLP COPD CKD h/o breast cancer Long COVID survivor Plan: Monitor closely ICU protocol Home meds Admission Status: Inpatient Order (span 2 midnights) Reason for Inpatient Admission: cardiac cath with intervention Clinical Quality Measures AMI/AHF: ASA po Prior to arrival: Yes SELENE LAW DO Mar 28, 2023 12:03
[2023-03-28] MEDS: NS IV 1000 ML 1,000 ML IV SCH ×2 (12:28→23:13)
--- NOTE | 2023-03-28 12:57 | Tele-ICU Progress Note ---
Subjective Date Seen by a Provider: Mar 28, 2023 Time Seen by a Provider: 12:53 Subjective/Events-last exam (Tele-ICU Physician , Progress Note ) Service provided via interactive audio and video telecommunications E-CARE s te to a patient admitted to ICU bed in [facility]. Patient is seen today due to persistent need of ICU care Available chart/ vitals / labs / Images reviewed Video assessment done using teleICU camera, rest of exam as per RN She is a 68-year-old female with past medical history of hypertension, coronary artery disease status post multiple stent placement presented to the emergency room with a complaint of for chest pain started around 4 AM which is a dull and radiating to the back and associated with shortness of breath and lightheadedness. She is responded to sublingual nitro trial glycerin and aspirin. Subsequently her troponin level is elevated. She is seen by cardiology service and suspected non-STEMI and took her to the [facility] and did a cardiac catheterization and found to have LAD stent is occluded and a balloon angioplasty done and will patient completely with a NORBERTO flow 0. Subsequently she is admitted to the intensive care unit. There is no telemetry ICU consult but I am seeing this patient per protocol. At this time she is resting comfortably without any chest pain. Impression 1. Non-STEMI 2. Previous history of coronary artery disease and stent placement 3. Hypertension 4. Hyperlipidemia 5. Moderate obesity. 6.T2 DM Recommendations 1. Dual antiplatelet therapy per cardiology service 2. Type 2 diabetes mellitus management per primary care physician. 3. Tele icu physician will see the pt as needed I am remotely monitoring this patient from Tele icu station in [place]. I am unable to do the bedside exam, and history/physical and pertinent information is taken from other notes in the computer and bedside staff. Certain portions of this document may have been dictated utilizing voice recognition technology such as [employer]. Inherent to this technology, typographical and grammatical errors may exist. As much as I am diligent to identify and correct to these mistakes, some errors may remain in the document. Critical care time devoted to this patient today is approximately is-20 minutes aproximately Sepsis Event Evaluation Height, Weight, BMI Height: 5'9.00" Weight: 230lbs. 0.0oz. 104.144936kw; 36.00 BMI Method:Stated Exam Exam Patient acknowledged, consented, and participated in this virtual visit which was conducted using real time audio/video Vital Signs Date Time Temp Pulse Resp B/P (MAP) Pulse Ox O2 Delivery O2 Flow Rate FiO2 03/28/23 12:00 36.4 03/28/23 11:44 Room Air 03/28/23 11:23 74 03/28/23 10:10 74 10 149/60 92 Room Air 03/28/23 06:32 36.8 70 22 146/65 (92) 95 Room Air Height & Weight Height: 5'9.00" Weight: 230lbs. 0.0oz. 104.426969cg; 36.00 BMI Method:Stated General Appearance: WD/WN, Anxious, Obese HEENT: PERRL/EOMI Neck: Full Range of Motion, Normal Inspection, Non Tender, Supple, Carotid Bruit Respiratory: Lungs Clear, Normal Breath Sounds, No Accessory Muscle Use, No Respiratory Distress Cardiovascular: Regular Rate, Rhythm, Normal Peripheral Pulses Capillary Refill: Less Than 3 Seconds Extremity: Pedal Edema (3+ (kishor hose in place Bilat LE)) Neurologic/Psychiatric: Alert, Oriented x3, No Motor/Sensory Deficits, Normal Mood/Affect, rn care transition II-XII Norm as Tested Skin: Normal Color, Warm/Dry Lymphatic: No Adenopathy Results Lab Laboratory Tests 03/28/23 06:36 Assessment/Plan Assessment/Plan as above Critical Care: Critically Ill Patient Time spent with patient (mins): 20 GUERLINE FRANCIS MD Mar 28, 2023 12:57
[2023-03-28] MEDS ORDERED: INSU100I10 SC (15:08)
[2023-03-28] MEDS ORDERED: GBPN600T PO (15:08)
[2023-03-28] MEDS ORDERED: AMLO-251 PO (15:08)
[2023-03-28] MEDS ORDERED: OXYB5TAB13 PO (15:08)
[2023-03-28] MEDS ORDERED: INSU100I48 SC (15:08)
[2023-03-28] MEDS ORDERED: ACET-93 PO (15:08)
[2023-03-28] MEDS ORDERED: CLOP75TA28 PO (15:08)
[2023-03-28] MEDS ORDERED: CYAN-41 PO (15:15)
[2023-03-28] MEDS ORDERED: ACETAMINOPHEN 500 MG TAB (TYLENOL) PO PRN (19:30)
[2023-03-28] MEDS ORDERED: NON-FORMULARY MEDICATION 1 EA EA (Dulaglutide (Trulicity) 1.5 MG) SC SCH (19:30)
[2023-03-28] MEDS ORDERED: MAGNESIUM OXIDE (MAG-OX)400 MG TAB PO SCH (20:00)
[2023-03-28] MEDS ORDERED: meTOprolol TARTRATE 25 MG (LOPRESSOR) TABLET PO SCH ×2 (21:00)
[2023-03-28] MEDS ORDERED: OXYBUTYNIN (DITROPAN) 5 MG TAB PO SCH (21:00)
[2023-03-28] MEDS ORDERED: NON-FORMULARY MEDICATION 1 EA EA (Omega-3 Fatty Acids/Fish Oil (Fish Oil 1,200 mg Softgel) PO SCH (21:00)
[2023-03-28] MEDS ORDERED: DULoxetine 30 MG (CYMBALTA) CAP PO SCH (21:00)
[2023-03-28] MEDS ORDERED: INSULIN GLARGINE SC SCH (21:00)
[2023-03-28] MEDS ORDERED: NON-FORMULARY MEDICATION 1 EA EA (Magnesium Oxide 400 MG) PO SCH (21:00)
[2023-03-28] MEDS ORDERED: [UNRECOGNIZED DRUG - OTHER] SC SCH (21:00)
[2023-03-28] MEDS ORDERED: amLODIPine 10 MG (NORVASC) TAB PO SCH (21:00)
[2023-03-28] MEDS ORDERED: LETROZOLE 2.5 MG (FEMARA) TAB PO SCH (21:00)
[2023-03-28] MEDS ORDERED: NON-FORMULARY MEDICATION 1 EA EA (Fenofibrate Nanocrystallized (Fenofibrate) 48 MG) PO SCH (21:00)
[2023-03-28] MEDS ORDERED: FENOFIBRATE, MICRO 67 MG (LOFIBRA) CAPSULE PO SCH (21:00)
[2023-03-29 05:21] LABS: HEMATOCRIT 40 % (35-52); HEMOGLOBIN 12.4 g/dL (11.5-16.0); MEAN CORPUSCULAR HEMOGLOBIN 26 pg (25-34); MEAN CORPUSCULAR HGB CONC 31 g/dL (32-36); MEAN CORPUSCULAR VOLUME 82 fL (80-99); PLATELET COUNT 222 10^3/uL (130-400); WHITE BLOOD COUNT 8.5 10^3/uL (4.3-11.0)
[2023-03-29 05:35] LABS: POTASSIUM 3.7 MMOL/L (3.6-5.0)
[2023-03-29 05:37] LABS: CALCIUM 9.1 MG/DL (8.5-10.1)
[2023-03-29 05:41] LABS: CREATININE SERUM 0.99 MG/DL (0.60-1.30)
--- NOTE | 2023-03-29 06:40 | Discharge Inst-Post CATH ---
Discharge Inst-CATH/EP Problems Reviewed?: Yes Post Cardiac Cath/EP D/C Inst Follow Up/Plan Appointment with Dr Carver in 2-4 weeks <b>CARDIAC CATH/EP PROCEDURE DISCHARGE INSTRUCTIONS</b> ACTIVITY * Go Home directly and rest. * Limit activity of the leg (or wrist if it was used) for 7 days including aerobics, swimming, jogging, bicycling, etc. * Restrict stair-climbing for 7 days if possible, if not, climb up with your non-cath leg, then bring together on the same step. * Avoid lifting, pushing, pulling or excessive movement of the affected extremity for 7 days. * Customary sexual activity may be resumed after 2 days-use caution not to use a position that strains or causes pain to the affected extremity. * No driving for 24 hours. * NO SMOKING. * Avoid straining for bowel movements for 7 days. * Gentle walking on level ground is allowed. * Returning to work will depend on the type of procedure and the results. Your doctor will discuss this with you. CALL YOUR DOCTOR FOR ANY OF THE FOLLOWING: *If bleeding from the puncture site occurs- Apply gentle pressure to site with clean cloth and call your doctor or EMS. * If a knot or lump forms under the skin, increases in size, or causes pain. * If bruising appears to be worsening or moving further down your leg instead of disappearing. * Temperature above 101 F. CARE OF YOUR GROIN INCISION; * Bruising or purple discoloration of the skin near the puncture site is common. * You may shower only, no bathtub bathing for 5 days. Be careful to avoid slipping as your leg may feel stiff. * If a closure device was used on your femoral artery, please see the attached guide regarding care of the device and your leg. * Leave dressing on FOR 24 hours. CARE OF YOUR WRIST INCISION; * Bruising or purple discoloration of the skin near the puncture site is common. * You may shower. * DO NOT submerge wrist. * Leave dressing on FOR 24 hours. NEEMA CARVER MD Mar 29, 2023 06:40
[2023-03-29] MEDS ORDERED: INSULIN LISPRO 20 UNIT SC SCH (07:00)
[2023-03-29] MEDS ORDERED: inSUlin ASPART (NovoLOG) 1 UNIT/0.01 ML (CHARGE PER UNIT) SC SCH (07:00)
--- NOTE | 2023-03-29 08:17 | Cardiology Progress Note ---
Subjective Date Seen by Provider: Mar 29, 2023 Time Seen by Provider: 08:16 Subjective/Events-last exam Patient was seen at bedside, laying down comfortably, feeling better. No new complaint Review of Systems General: No Chills, No Night Sweats, No Fatigue, No Malaise, No Appetite, No Other HEENT: No Head Aches, No Visual Changes, No Eye Pain, No Ear Pain, No Dyspha lalitha, No Sinus Congestion, No Post Nasal Drip, No Sore Throat, No Other Pulmonary: No Dyspnea, No Cough, No Pleuritic Chest Pain, No Other Cardiovascular: No: Chest Pain, Palpitations, Orthopnea, Paroxysmal Noc. Dyspnea, Edema, Lt Headedness, Other Objective-Cardiology Exam Last Set of Vital Signs Vital Signs 03/29/23 03/29/23 03/29/23 03/29/23 03:59 06:00 07:20 08:00 Temp 36.7 Pulse 60 Resp 17 B/P (MAP) 125/54 (77) Pulse Ox 94 O2 Delivery Room Air O2 Flow Rate 2.00 I&O Intake and Output 03/29/23 00:00 Intake Total 2250 ml Output Total 300 ml Balance 1950 ml Intake Oral 1250 ml IV Total 1000 ml Output Urine Total 300 ml Daily Weight Change No General: Alert, Oriented X3, Cooperative HEENT: Atraumatic, PERRLA Neck: Supple, No JVD, No Thyromegaly Lungs: Clear to Auscultation, Normal Air Movement Heart: Regular Rate, Normal S1, Normal S2, No Murmurs Abdomen: Normal Bowel Sounds, Soft, No Tenderness, No Hepatosplenomegaly, No Masses Extremities: No Clubbing, No Cyanosis, No Edema, Normal Pulses, No Tenderness/Swelling Skin: No Rashes, No Breakdown, No Significant Lesion Neuro: Normal Gait, Normal Speech, Strength at 5/5 X4 Ext, Normal Tone, Sensation Intact Psych/Mental Status: Mental Status NL, Mood NL Results Lab Laboratory Tests 03/29/23 04:26 A/P-Cardiology Admission Diagnosis Unstable angina Non-ST elevation myocardial infarction Coronary artery disease Hypertension Hyperlipidemia Assessment/Plan Chest pain, unstable angina Non-ST elevation myocardial infarction Past postcardiac catheterization and stenting to the LAD Coronary artery disease History of non-ST MA in April 2015, stenting 2.5x30 to the mid right coronary artery. Cardiac catheterization January 2018 had mild to moderate disease with patent stent in the right coronary artery. Stress test in June 2022 was abnormal. Cardiac catheterization done in July 2022 with severe ostial LAD stenosis, mid LAD stenosis and mid to distal circumflex artery stenosis with patent stent in the mid right coronary artery, 50 to 60% distally above the bifurcation. Patient was referred for evaluation for CABG with Dr. PAYNE. Seen Dr. Asencio and had Rotablator and stenting x4 in October 2022 Cardiac catheterization was done on March 28, 2023 with stenting to the distal LAD with 2.5 x 18 mm expanded to 3 mm with excellent results. Continue on aspirin and Plavix 2D echo in October 2021 with normal LV size, EF 55 to 60% Hypertension, restart home medication Intolerant to JEFE inhibitor and/or ARB due to renal insufficiency Hyperlipidemia maintained on Lipitor 40 mg daily Monitor lipids History of mild pedal edema History of breast cancer invasive ductal carcinoma of the left breast had modified radical mastectomy and axillary node dissection in 2014 Received radiation therapy to the chest. Chronic kidney disease stage IV Diabetes mellitus, followed and managed by primary care physician Moderate right carotid artery stenosis, mild left carotid stenosis, ultrasound done in May 2022 Gilma for discharge and follow-up as an outpatient NEEMA EMMANUEL MD Mar 29, 2023 08:17
[2023-03-29] MEDS ORDERED: EMPAGLIFLOZIN 10 MG TABLET (JARDIANCE) PO SCH ×2 (09:00)
[2023-03-29] MEDS ORDERED: amLODIPine 10 MG (NORVASC) TAB PO SCH (09:00)
[2023-03-29] MEDS ORDERED: PANTOPRAZOLE 40 MG (PROTONIX) TAB PO SCH ×2 (09:00)
[2023-03-29] MEDS ORDERED: CYANOCOBALAMIN 1,000 MCG (VITAMIN B-12) TABLET PO SCH (09:00)
[2023-03-29] MEDS ORDERED: NON-FORMULARY MEDICATION 1 EA EA (Cetirizine HCl 10 MG) PO SCH (09:00)
[2023-03-29] MEDS ORDERED: LORATADINE (CLARITIN) 10 MG TAB PO SCH (09:00)
[2023-03-29] MEDS ORDERED: ASPIRIN E.C. 81 MG (ECOTRIN) TAB PO SCH ×2 (09:00)
[2023-03-29] MEDS ORDERED: CLOPIDOGREL 75 MG (PLAVIX) TABLET PO SCH (09:00)
[2023-03-29] MEDS ORDERED: FUROSEMIDE 40 MG (LASIX) TAB PO SCH ×2 (09:00)
[2023-03-29] MEDS ORDERED: MONTELUKAST 10 MG (SINGULAIR) TAB PO SCH (09:00)
--- NOTE | 2023-03-29 11:07 | Discharge Summary ---
Diagnosis/Chief Complaint Date of Admission Mar 28, 2023 at 11:39 Date of Discharge Discharge Date: Mar 29, 2023 Discharge Diagnosis Assessment: NSTEMI with intervention on cath DM HTN HLP COPD CKD h/o breast cancer Long COVID survivor Plan: Monitor closely ICU protocol Home meds Discharge Summary Discharge Physical Examination Allergies: Coded Allergies: chlorhexidine (Verified Allergy, Unknown, 02/06/18) codeine (Unverified Allergy, Unknown, Nausea, 06/05/21) scopolamine (Verified Allergy, Unknown, 02/06/18) Vitals & I&Os Vital Signs Date Time Temp Pulse Resp B/P (MAP) Pulse Ox O2 Delivery O2 Flow Rate FiO2 03/29/23 08:00 95 Room Air 03/29/23 08:00 36.7 03/29/23 07:20 60 03/29/23 06:00 17 125/54 (77) 03/29/23 03:59 2.00 General Appearance: Alert, Oriented X3, Cooperative Respiratory: Clear to Auscultation Cardiovascular: Regular Rate Hospital Course Was the Problem List Reviewed?: Yes Patient had uneventful hospital course after she was admitted for chest pain with NSTEMI diagnosis underwent cardiac catheterization by Dr. Carver with intervention with good results. Labs remained stable and home meds were initiated. Labs (last 24 hrs) Laboratory Tests 03/28/23 06:36: White Blood Count 10.1, Red Blood Count 5.24H, Hemoglobin 14.0, Hematocrit 43, Mean Corpuscular Volume 81, Mean Corpuscular Hemoglobin 27, Mean Corpuscular Hemoglobin Concent 33, Red Cell Distribution Width 16.5H, Platelet Count 256, Mean Platelet Volume 12.5H, Immature Granulocyte % (Auto) 1, Neutrophils (%) (Auto) 69, Lymphocytes (%) (Auto) 19, Monocytes (%) (Auto) 7, Eosinophils (%) (Auto) 3, Basophils (%) (Auto) 1, Neutrophils # (Auto) 6.9, Lymphocytes # (Auto) 1.9, Monocytes # (Auto) 0.7, Eosinophils # (Auto) 0.3, Basophils # (Auto) 0.1, Immature Granulocyte # (Auto) 0.1, Prothrombin Time 12.8, INR Comment 0.9, Activated Partial Thromboplast Time 29, Sodium Level 141, Potassium Level 3.9, Chloride Level 108H, Carbon Dioxide Level 22, Anion Gap 11, Blood Urea Nitrogen 24H, Creatinine 1.18, Estimat Glomerular Filtration Rate 50, BUN/Creatinine Ratio 20, Glucose Level 249H, Calcium Level 9.6, Corrected Calcium 9.8, Magnesium Level 1.6, Total Bilirubin 0.3, Aspartate Amino Transf (AST/SGOT) 19, Alanine Aminotransferase (ALT/SGPT) 22, Alkaline Phosphatase 68, Troponin I < 0.028, B-Type Natriuretic Peptide 28.6, Total Protein 7.9, Albumin 3.7 03/28/23 09:06: Troponin I 0.348*H 03/29/23 04:26: White Blood Count 8.5, Red Blood Count 4.81, Hemoglobin 12.4, Hematocrit 40, Mean Corpuscular Volume 82, Mean Corpuscular Hemoglobin 26, Mean Corpuscular Hemoglobin Concent 31L, Red Cell Distribution Width 16.1H, Platelet Count 222, Mean Platelet Volume 13.0H, Sodium Level 140, Potassium Level 3.7, Chloride Level 111H, Carbon Dioxide Level 21, Anion Gap 8, Blood Urea Nitrogen 19H, Creatinine 0.99, Estimat Glomerular Filtration Rate 62, BUN/Creatinine Ratio 19, Glucose Level 158H, Calcium Level 9.1, Troponin I 5.100*H, Triglycerides Level 238H, Cholesterol Level 126, LDL Cholesterol Direct 60, VLDL Cholesterol 48H, HDL Cholesterol 26L Microbiology 03/28/23 MRSA Screen - Final, Complete MRSA not isolated Pending Labs Microbiology Date/Time Source Procedure Growth Status 03/28/23 11:15 Nasal MRSA Screen - Final MRSA not isolated Complete Laboratory Tests 03/28/23 06:36: White Blood Count 10.1, Red Blood Count 5.24, Hemoglobin 14.0, Hematocrit 43, Mean Corpuscular Volume 81, Mean Corpuscular Hemoglobin 27, Mean Corpuscular Hemoglobin Concent 33, Red Cell Distribution Width 16.5, Platelet Count 256, Mean Platelet Volume 12.5, Immature Granulocyte % (Auto) 1, Neutrophils (%) (Auto) 69, Lymphocytes (%) (Auto) 19, Monocytes (%) (Auto) 7, Eosinophils (%) (Auto) 3, Basophils (%) (Auto) 1, Neutrophils # (Auto) 6.9, Lymphocytes # (Auto) 1.9, Monocytes # (Auto) 0.7, Eosinophils # (Auto) 0.3, Basophils # (Auto) 0.1, Immature Granulocyte # (Auto) 0.1, Prothrombin Time 12.8, INR Comment 0.9, Activated Partial Thromboplast Time 29, Sodium Level 141, Potassium Level 3.9, Chloride Level 108, Carbon Dioxide Level 22, Anion Gap 11, Blood Urea Nitrogen 2 4, Creatinine 1.18, Estimat Glomerular Filtration Rate 50, BUN/Creatinine Ratio 20, Glucose Level 249, Calcium Level 9.6, Corrected Calcium 9.8, Magnesium Level 1.6, Total Bilirubin 0.3, Aspartate Amino Transf (AST/SGOT) 19, Alanine Aminotransferase (ALT/SGPT) 22, Alkaline Phosphatase 68, Troponin I < 0.028, B- Type Natriuretic Peptide 28.6, Total Protein 7.9, Albumin 3.7 03/28/23 09:06: Troponin I 0.348 03/29/23 04:26: White Blood Count 8.5, Red Blood Count 4.81, Hemoglobin 12.4, Hematocrit 40, Mean Corpuscular Volume 82, Mean Corpuscular Hemoglobin 26, Mean Corpuscular Hemoglobin Concent 31, Red Cell Distribution Width 16.1, Platelet Count 222, Mean Platelet Volume 13.0, Sodium Level 140, Potassium Level 3.7, Chloride Level 111, Carbon Dioxide Level 21, Anion Gap 8, Blood Urea Nitrogen 19, Creatinine 0.99, Estimat Glomerular Filtration Rate 62, BUN/Creatinine Ratio 19, Glucose Level 158, Calcium Level 9.1, Troponin I 5.100, Triglycerides Level 238, Cholesterol Level 126, LDL Cholesterol Direct 60, VLDL Cholesterol 48, HDL Cholesterol 26 Discharge Home Medications: Active Scripts Active Reported Vitamin B-12 (Cyanocobalamin (Vitamin B-12)) 1,000 Mcg Tablet 1,000 Mcg PO DAILY Clopidogrel (Clopidogrel Bisulfate) 75 Mg Tablet 75 Mg PO DAILY Gabapentin 600 Mg Tablet 600 Mg PO 1500 Amlodipine Besylate 10 Mg Tablet 10 Mg PO HS Oxybutynin Chloride 5 Mg Tablet 5 Mg PO BID Lantus Solostar (Insulin Glargine,Hum.rec.anlog) 100 Unit/Ml (3 Ml) Insuln.pen 49 Units SC BID Insulin Lispro Kwikpen U-100 (Insulin Lispro) 100 Unit/Ml Insuln.pen 20 Units SC AC Acetaminophen 500 Mg Tablet 1,000 Mg PO Q6H PRN Fenofibrate (Fenofibrate Nanocrystallized) 48 Mg Tablet 48 Mg PO HS Montelukast Sodium 10 Mg Tablet 10 Mg PO DAILY Jardiance (Empagliflozin) 10 Mg Tablet 10 Mg PO DAILY Furosemide 40 Mg Tablet 40 Mg PO DAILY Cetirizine HCl 10 Mg Tablet 10 Mg PO DAILY Duloxetine HCl 30 Mg Capsule.dr 30 Mg PO HS Vitamin C 500 mg Tablet Chew (Ascorbic Acid/Ascorbate Sodium) 500 Mg Tab.chew 500 Mg PO 1500 Atorvastatin Calcium 40 Mg Tablet 40 Mg PO HS Trulicity (Dulaglutide) 1.5 Mg/0.5 Ml Pen.injctr 1.5 Mg SC WED Pantoprazole Sodium 40 Mg Tablet.dr 40 Mg PO DAILY D3-2000 (Cholecalciferol (Vitamin D3)) 50 Mcg (2000 Unit) Capsule 50 Mcg PO 1500 Fish Oil 1,200 mg Softgel ([place]-3 Fatty Acids/Fish Oil) 1 Each Capsule 1 Each PO TID Magnesium Oxide 400 Mg Tablet 400 Mg PO TID Metoprolol Tartrate 25 Mg Tablet 25 Mg PO BID Folic Acid 0.8 Mg Tablet 0.8 Mg PO 1500 Aspirin EC (Aspirin) 81 Mg Tablet.dr 81 Mg PO DAILY Letrozole 2.5 Mg Tablet 2.5 Mg PO HS Instructions to patient/family Please see electronic discharge instructions given to patient. Clinical Quality Measures AMI/AHF: ASA po Prior to arrival: Yes MADINA MCCARTY DO Mar 29, 2023 11:07
[2023-03-29] MEDS ORDERED: FOLIC ACID 1 MG TAB PO SCH (15:00)
[2023-03-29] MEDS ORDERED: VITAMIN D3 25 MCG (1,000 UNITS) TABLET PO SCH (15:00)
[2023-03-29] MEDS ORDERED: NON-FORMULARY MEDICATION 1 EA EA (Folic Acid 0.8 MG) PO SCH (15:00)
[2023-03-29] MEDS ORDERED: NON-FORMULARY MEDICATION 1 EA EA (Cholecalciferol (Vitamin D3) (D3-2000) 50 MCG) PO SCH (15:00)
[2023-03-29] MEDS ORDERED: GABAPENTIN 600 MG (NEURONTIN) TAB PO SCH (15:00)
[2023-03-29] MEDS ORDERED: ASCORBIC ACID (VIT C) 500 MG TABLET PO SCH (15:00)
[2023-03-29] MEDS ORDERED: OMEGA 3 (FISH OIL) 1000 MG CAP PO SCH (20:00)
== END 2023-03-29 09:00 | disposition home or self-care (01) | DRG 250 ==
LOC: EDUNIT# 06:30 → ER 06:31 → SDC 10:09 → ICU 11:39
PROVIDERS: ADMIT Internal Medicine Cardiovascular Disease; ATTEND Internal Medicine Cardiovascular Disease
PROC: 02703ZZ Dilation of Coronary Artery, One Artery, Percutaneous Approach (ICD-10-PCS; principal; 2023-03-28)
PROC: 4A023N7 Measurement of Cardiac Sampling and Pressure, Left Heart, Percutaneous Approach (ICD-10-PCS; 2023-03-28)
PROC: B2111ZZ Fluoroscopy of Multiple Coronary Arteries using Low Osmolar Contrast (ICD-10-PCS; 2023-03-28)
DX: T82.855A Stenosis of coronary artery stent, initial encounter (principal); I21.4 Non-ST elevation (NSTEMI) myocardial infarction; I25.110 Atherosclerotic heart disease of native coronary artery with unstable angina pectoris; N18.4 Chronic kidney disease, stage 4 (severe); E11.42 Type 2 diabetes mellitus with diabetic polyneuropathy; I12.9 Hypertensive chronic kidney disease with stage 1 through stage 4 chronic kidney disease, or unspecified chronic kidney disease; E11.22 Type 2 diabetes mellitus with diabetic chronic kidney disease; J44.9 Chronic obstructive pulmonary disease, unspecified; G47.30 Sleep apnea, unspecified; E78.00 Pure hypercholesterolemia, unspecified; K21.9 Gastro-esophageal reflux disease without esophagitis; M19.90 Unspecified osteoarthritis, unspecified site; H54.3 Unqualified visual loss, both eyes; D64.9 Anemia, unspecified; I65.23 Occlusion and stenosis of bilateral carotid arteries; Z79.4 Long term (current) use of insulin; Z79.85 Long-term (current) use of injectable non-insulin antidiabetic drugs; Z79.84 Long term (current) use of oral hypoglycemic drugs; Z95.5 Presence of coronary angioplasty implant and graft; Z99.81 Dependence on supplemental oxygen; Z87.891 Personal history of nicotine dependence; Z85.3 Personal history of malignant neoplasm of breast; Z86.16 Personal history of COVID-19; Z79.02 Long term (current) use of antithrombotics/antiplatelets; Z79.82 Long term (current) use of aspirin; Z79.899 Other long term (current) drug therapy; Z90.12 Acquired absence of left breast and nipple; Z88.5 Allergy status to narcotic agent; Z91.09 Other allergy status, other than to drugs and biological substances; Y83.8 Other surgical procedures as the cause of abnormal reaction of the patient, or of later complication, without mention of misadventure at the time of the procedure
CPT/HCPCS: 36415; 71045; 80048; 80053; 80061; 83735; 83880; 84484; 85025; 85027; 85610; 85730; 87081; 93005; 93041; 93458

== ENCOUNTER 2023-04-15 13:07 | Emergency (ER) | payer MEDICARE, MEDICAID ==
[~2023-04-15] VITALS: Ht 172 cm; Wt 108.0 kg
[~2023-04-15 13:07] MED LIST changes: +ACET-93 PO; +AMLO-251 PO; +CLOP75TA28 PO; +CYAN-41 PO; +GBPN600T PO; +INSU100I10 SC; +INSU100I48 SC; +OXYB5TAB13 PO
[2023-04-15] MEDS ORDERED: fentaNYL INJ 100 MCG/2 ML AMP IVP ONE (13:30)
[2023-04-15] MEDS ORDERED: NS IV 500 ML 500 ML IV ONE (13:30)
[2023-04-15 13:37] LABS: BASOPHILS # (AUTO) 0.1 10^3/uL (0.0-0.1); BASOPHILS % (AUTO) 1 % (0-10); EOSINOPHILS # (AUTO) 0.2 10^3/uL (0.0-0.3); EOSINOPHILS % (AUTO) 3 % (0-10); HEMATOCRIT 46 % (35-52); HEMOGLOBIN 14.8 g/dL (11.5-16.0); LYMPHOCYTES # (AUTO) 0.8 10^3/uL (1.0-4.0); LYMPHOCYTES % (AUTO) 9 % (12-44); MEAN CORPUSCULAR HEMOGLOBIN 26 pg (25-34); MEAN CORPUSCULAR HGB CONC 32 g/dL (32-36); MEAN CORPUSCULAR VOLUME 81 fL (80-99); MEAN PLATELET VOLUME 12.7 fL (9.0-12.2); MONOCYTES % (AUTO) 1 % (0-12); NEUTROPHILS % (AUTO) 85 % (42-75); PLATELET COUNT 260 10^3/uL (130-400); WHITE BLOOD COUNT 8.3 10^3/uL (4.3-11.0)
--- NOTE | 2023-04-15 13:39 | ED Abdominal Pain ---
General Chief Complaint: Abdominal/GI Problems Stated Complaint: LEFT SIDE PAIN/VOMITING Nursing Triage Note: PT TO RM 7 PER W/C PT CO OF FLANK AND ABD PAIN RATES 10/10. PT STATES STARTED W DIARRHEA THIS AM AND THEN PAIN AND NAUSEA STARTED. DENIES FEVERS Source of Information: Patient Exam Limitations: No Limitations History of Present Illness Date Seen by Provider: Apr 15, 2023 Time Seen by Provider: 13:21 Initial Comments 68-year-old female presents to the ER with complaints of left-sided flank and abdominal pain starting a earlier this morning. She states she has vomited approximately 2-3 times and had had approximately 4 episodes of loose stools. Denies fevers, chest pain, shortness of air, dysuria, hematuria. Past medical history includes diabetes, multiple cardiac stents, hypertension, hyperlipidemia, coronary artery disease. She was admitted on 04/17/2023 for a non-STEMI. During that hospitalization, she had a cardiac catheterization with balloon angioplasty. Allergies and Home Medications Allergies Coded Allergies: chlorhexidine (Verified Allergy, Unknown, 02/06/18) codeine (Unverified Allergy, Unknown, Nausea, 06/05/21) scopolamine (Verified Allergy, Unknown, 02/06/18) Patient Home Medication List Home Medication List Reviewed: Yes Acetaminophen (Acetaminophen) 500 Mg Tablet, 1,000 MG PO Q6H PRN for PAIN-MILD (1-4), (Reported) Entered as Reported by: LIT HELM on 03/28/23 1508 Amlodipine Besylate (Amlodipine Besylate) 10 Mg Tablet, 10 MG PO HS, (Reported) Entered as Reported by: LIT HELM on 03/28/23 1508 Ascorbic Acid/Ascorbate Sodium (Vitamin C 500 mg Tablet Chew) 500 Mg Tab.chew, 500 MG PO 1500, (Reported) Entered as Reported by: CECY BARBOSA on 07/26/22 1000 Aspirin (Aspirin EC) 81 Mg Tablet.dr, 81 MG PO DAILY, (Reported) Entered as Reported by: JESSICA SANDOVAL on 02/06/18 0749 Atorvastatin Calcium (Atorvastatin Calcium) 40 Mg Tablet, 40 MG PO HS, (Reported) Entered as Reported by: LIT HELM on 10/20/20 1057 Cetirizine HCl (Cetirizine HCl) 10 Mg Tablet, 10 MG PO DAILY, (Reported) Entered as Reported by: CECY BARBOSA on 07/26/22 1000 Cholecalciferol (Vitamin D3) (D3-2000) 50 Mcg (2000 Unit) Capsule, 50 MCG PO 1500, (Reported) Entered as Reported by: LIT HELM on 10/20/20 1057 Clopidogrel Bisulfate (Clopidogrel) 75 Mg Tablet, 75 MG PO DAILY, (Reported) Entered as Reported by: LIT HELM on 03/28/23 1508 Cyanocobalamin (Vitamin B-12) (Vitamin B-12) 1,000 Mcg Tablet, 1,000 MCG PO DAILY, (Reported) Entered as Reported by: LIT HELM on 03/28/23 1515 Dulaglutide (Trulicity) 1.5 Mg/0.5 Ml Pen.injctr, 1.5 MG SC WED, (Reported) Entered as Reported by: LIT HELM on 10/20/20 1057 Duloxetine HCl (Duloxetine HCl) 30 Mg Capsule.dr, 30 MG PO HS, (Reported) Entered as Reported by: CECY BARBOSA on 07/26/22 1000 Empagliflozin (Jardiance) 10 Mg Tablet, 10 MG PO DAILY, (Reported) Entered as Reported by: CECY BARBOSA on 07/26/22 1000 Fenofibrate Nanocrystallized (Fenofibrate) 48 Mg Tablet, 48 MG PO HS, (Reported) Entered as Reported by: CECY BARBOSA on 07/26/22 1000 Folic Acid (Folic Acid) 0.8 Mg Tablet, 0.8 MG PO 1500, (Reported) Entered as Reported by: JESSICA SANDOVAL on 02/06/18 0749 Furosemide (Furosemide) 40 Mg Tablet, 40 MG PO DAILY, (Reported) Entered as Reported by: CECY BARBOSA on 07/26/22 1000 Gabapentin (Gabapentin) 600 Mg Tablet, 600 MG PO 1500, (Reported) Entered as Reported by: LIT HELM on 03/28/23 1508 Insulin Glargine,Hum.rec.anlog (Lantus Solostar) 100 Unit/Ml (3 Ml) Insuln.pen, 49 UNITS SC BID, (Reported) Entered as Reported by: LIT HELM on 03/28/23 1508 Insulin Lispro (Insulin Lispro Kwikpen U-100) 100 Unit/Ml Insuln.pen, 20 UNITS SC AC, (Reported) Entered as Reported by: LIT HELM on 03/28/23 1508 Letrozole (Letrozole) 2.5 Mg Tablet, 2.5 MG PO HS, (Reported) Entered as Reported by: DIVINA NEVILLE on 08/03/16 1341 Magnesium Oxide (Magnesium Oxide) 400 Mg Tablet, 400 MG PO TID, (Reported) Entered as Reported by: DEON MUNOZ on 07/26/18 1138 Metoprolol Tartrate (Metoprolol Tartrate) 25 Mg Tablet, 25 MG PO BID, (Reported) Entered as Reported by: JESSICA SANDOVAL on 02/06/18 0749 Montelukast Sodium (Montelukast Sodium) 10 Mg Tablet, 10 MG PO DAILY, (Reported) Entered as Reported by: CECY BARBOSA on 07/26/22 1000 [place]-3 Fatty Acids/Fish Oil (Fish Oil 1,200 mg Softgel) 1 Each Capsule, 1 EACH PO TID, (Reported) Entered as Reported by: LIT HELM on 10/20/20 1057 Oxybutynin Chloride (Oxybutynin Chloride) 5 Mg Tablet, 5 MG PO BID, (Reported) Entered as Reported by: LIT HELM on 03/28/23 1508 Pantoprazole Sodium (Pantoprazole Sodium) 40 Mg Tablet.dr, 40 MG PO DAILY, (Reported) Entered as Reported by: LIT HELM on 10/20/20 1057 Sulfamethoxazole/Trimethoprim (Bactrim Ds Tablet) 1 Each Tablet, 1 EACH PO BID Prescribed by: Bella Marshall on 04/15/23 1527 Review of Systems Review of Systems Constitutional: see HPI Past Tftgfco-Ybksld-Ssphyc Hx Patient Social History Smoking Status: Former Smoker Substance use?: No Alcohol Use?: No Immunizations Up To Date Tetanus Booster (TDap): More than 5yrs First/Initial COVID19 Vaccinat: 2020 Second COVID19 Vaccination Avery: 2020 Third COVID19 Vaccination Date: 2020 Seasonal Allergies Seasonal Allergies: No Past Medical History Surgery/Hospitalization HX: HEART STENTS, DM, MASTECTOMY L, GB, TUBAL, HIP REPLACEMENT BILAT, CARPAL TUNNEL BILATERALLY. HTN, ELEVATED CHOLESTEROL. Surgeries: Yes (LEFT BREAST MASTECTOMY, 6 LYMPH NODE REMOVED,BILAT CTR, L ULNAR NERVE, PORT) Coronary Stent, Gallbladder, Joint Replacement, Tubal Ligation Respiratory: No Sleep Apnea Cardiac: Yes (NONSTEMI) Coronary Artery Disease, High Cholesterol, Hypertension Neurological: Yes (PERIPHERAL NEUROPATHY-FEET) Neuropathy Reproductive Disorders: No Female Reproductive Disorders: Denies Sexually Transmitted Disease: No HIV/AIDS: No Genitourinary: Yes (CHRONIC RENAL INSUFFICIENCY) Bladder Infection, Kidney Stones, Renal Failure Gastrointestinal: No (S/P JENNIFER) Gastroesophageal Reflux Musculoskeletal: Yes Arthritis, Chronic Back Pain Endocrine: Yes Diabetes, Insulin dep HEENT: No Loss of Vision: Bilateral Hearing Impairment: Denies Cancer: Yes (LEFT BREAST CA, LYMPH NODES) Breast Did You Recieve Any Treatments: Yes What Type of Treatment Did You: Chemotherapy, Radiation, Surgical Intervention Psychosocial: No Integumentary: No Blood Disorders: Yes (ANEMIA) Adverse Reaction/Blood Tranf: No (N/A) Family Medical History Asthma G8 SISTER Cardiovascular disease 19 FATHER Diabetes mellitus G8 SISTER FH: breast cancer SISTER FH: leukemia 19 MOTHER, , Age:52 Psychosocial problem G8 SISTER No Family History of: AIDS Abdominal aortic aneurysm [place]'s disease Alcoholism Alzheimer's disease Arthritis Cancer of mouth Colon cancer Completed stroke Dementia Drug abuse Kidney disease Myocardial infarction Parkinson's disease Prostate cancer Respiratory disorder Seizure disorder Severe allergy Thyroid disease Tuberculosis No Pertinent Family Hx Physical Exam Vital Signs Vital Signs - First Documented 04/15/23 04/15/23 13:15 15:40 Pulse 80 Resp 18 B/P (MAP) 141/75 (97) Pulse Ox 95 O2 Delivery Room Air Capillary Refill : Less Than 3 Seconds Height/Weight/BMI Height: 5'9.00" Weight: 230lbs. 0.0oz. 104.790263uc; 36.00 BMI Method:Stated General Appearance: WD/WN, mild distress Neck: supple, normal inspection Respiratory: lungs clear, no respiratory distress, no accessory muscle use, decreased breath sounds Cardiovascular: regular rate, rhythm Gastrointestinal: normal bowel sounds, soft, tenderness (Mild tenderness left lower quadrant) Extremities: normal range of motion, normal inspection Neurologic/Psychiatric: alert, normal mood/affect Skin: normal color, warm/dry Procedures/Interventions Date of ETT Placement: Nov 01, 2020 Time of ETT Placement: 0625 Progress/Results/Core Measures Results/Orders Lab Results Laboratory Tests Test 04/15/23 13:30 04/15/23 14:25 Range/Units White Blood Count 8.3 4.3-11.0 10^3/uL Red Blood Count 5.64 H 3.80-5.11 10^6/uL Hemoglobin 14.8 11.5-16.0 g/dL Hematocrit 46 35-52 % Mean Corpuscular Volume 81 80-99 fL Mean Corpuscular Hemoglobin 26 25-34 pg Mean Corpuscular Hemoglobin Concent 32 32-36 g/dL Red Cell Distribution Width 15.9 H 10.0-14.5 % Platelet Count 260 130-400 10^3/uL Mean Platelet Volume 12.7 H 9.0-12.2 fL Immature Granulocyte % (Auto) 2 % Neutrophils (%) (Auto) 85 H 42-75 % Lymphocytes (%) (Auto) 9 L 12-44 % Monocytes (%) (Auto) 1 0-12 % Eosinophils (%) (Auto) 3 0-10 % Basophils (%) (Auto) 1 0-10 % Neutrophils # (Auto) 7.0 1.8-7.8 10^3/uL Lymphocytes # (Auto) 0.8 L 1.0-4.0 10^3/uL Monocytes # (Auto) 0.0 0.0-1.0 10^3/uL Eosinophils # (Auto) 0.2 0.0-0.3 10^3/uL Basophils # (Auto) 0.1 0.0-0.1 10^3/uL Immature Granulocyte # (Auto) 0.2 H 0.0-0.1 10^3/uL Sodium Level 141 135-145 MMOL/L Potassium Level 3.5 L 3.6-5.0 MMOL/L Chloride Level 106 98-107 MMOL/L Carbon Dioxide Level 24 21-32 MMOL/L Anion Gap 11 5-14 MMOL/L Blood Urea Nitrogen 26 H 7-18 MG/DL Creatinine 1.36 H 0.60-1.30 MG/DL Estimat Glomerular Filtration Rate 42 BUN/Creatinine Ratio 19 Glucose Level 190 H 70-105 MG/DL Calcium Level 10.0 8.5-10.1 MG/DL Corrected Calcium 10.0 8.5-10.1 MG/DL Total Bilirubin 0.4 0.1-1.0 MG/DL Aspartate Amino Transf (AST/SGOT) 20 5-34 U/L Alanine Aminotransferase (ALT/SGPT) 19 0-55 U/L Alkaline Phosphatase 68 40-136 U/L Total Protein 8.4 H 6.4-8.2 GM/DL Albumin 4.0 3.2-4.5 GM/DL Lipase 56 8-78 U/L Urine Color YELLOW Urine Clarity CLEAR Urine pH 5.5 5-9 Urine Specific [place] <=1.005 1.016-1.022 Urine Protein NEGATIVE NEGATIVE Urine Glucose (UA) 3+ H NEGATIVE Urine Ketones NEGATIVE NEGATIVE Urine Nitrite NEGATIVE NEGATIVE Urine Bilirubin NEGATIVE NEGATIVE Urine Urobilinogen 0.2 < = 1.0 MG/DL Urine Leukocyte Esterase TRACE H NEGATIVE Urine RBC (Auto) NEGATIVE NEGATIVE Urine RBC NONE /HPF Urine WBC 2-5 /HPF Urine Squamous Epithelial Cells NONE /HPF Urine Crystals NONE /LPF Urine Bacteria LARGE H /HPF Urine Casts NONE /LPF Urine Mucus NEGATIVE /LPF Urine Culture Indicated YES My Orders Orders - BELLA MARSHALL APRN Comprehensive Metabolic Panel (04/15/23 13:20) Lipase (04/15/23 13:20) Ua Culture If Indicated (04/15/23 13:20) Ed Iv/Invasive Line Start (04/15/23 13:20) Cbc With Automated Diff (04/15/23 13:20) Ns Iv 500 Ml (Sodium Chloride 0.9%) (04/15/23 13:30) Ct Abdomen/Pelvis W (04/15/23 13:30) Fentanyl Inj (Sublimaze Injection) (04/15/23 13:30) Iohexol Injection (Omnipaque 350 Mg/Ml 1 (04/15/23 13:45) Received Contrast (Hold Metformin- Contr (04/15/23 13:45) Ns (Ivpb) (Sodium Chloride 0.9% Ivpb Bag (04/15/23 13:45) Ns Iv 1000 Ml (Sodium Chloride 0.9%) (04/15/23 14:30) Abdomen/Kub 1view (04/15/23 14:29) Urine Culture (04/15/23 14:25) Medications Given in ED Current Medications Medications Dose Ordered Sig/Josefina Route Start Time Stop Time Status Last Admin Dose Admin Fentanyl Citrate 50 mcg ONCE ONCE IVP 04/15/23 13:30 04/15/23 13:33 DC 04/15/23 13:39 50 MCG Iohexol 100 ml ONCE ONCE IV 04/15/23 13:45 04/15/23 13:46 DC 04/15/23 13:52 80 ML Sodium Chloride 100 ml ONCE ONCE IV 04/15/23 13:45 04/15/23 13:46 DC 04/15/23 13:52 80 ML Sodium Chloride 500 ml @ 0 mls/hr Q0M ONCE IV 04/15/23 13:30 04/15/23 13:33 DC 04/15/23 13:39 999 MLS/HR Vital Signs/I&O 04/15/23 04/15/23 13:15 15:40 Pulse 80 78 Resp 18 16 B/P (MAP) 141/75 (97) 146/67 Pulse Ox 95 95 O2 Delivery Room Air Blood Pressure Mean: 97 Progress Progress Note : Progress Note Patient seen and evaluated, laying in bed, mild distress. Based on exam and symptoms, work-up initiated including CBC, CMP, lipase, urinalysis, CT abdomen pelvis. 500 mL of IV fluids and fentanyl ordered. Labs and CT reviewed. CBC shows slightly elevated RBC 5.64 elevated neutrophil percentage 85. CMP shows slightly decreased potassium 3.5, slightly elevated BUN 26, slightly elevated creatinine 1.36, decreased GFR 42. Glucose elevated 190. Previous BUN from 03/29/2020 was 19, creatinine was 0.99, GFR was 62. Liter of IV fluids ordered for slightly decreased kidney function. Previous EF on echo from 10/25/2021 was 55 to 65%. Urinalysis shows 3+ glucose, trace leukocytes 2-5 WBCs, no squamous epithelial cells, large bacteria, no RBCs. CT shows left hydronephrosis and hydroureter ureter with mild inflammatory changes. No identified kidney stone, this is likely related to significant artifact due to bilateral hip prosthesis. Radiologist states that given hydronephrosis and hydroureter there is likely an obstructing stone. A KUB x-ray was ordered. The x-ray does not show any identified stone. It is likely that the stone has already passed and the hydronephrosis and hydroureter is residual. Results discussed with patient. Patient informed that she may follow-up with a urologist of her choice. Will treat for urinary tract infection. We discussed options for pain medication. Patient is unable to take NSAIDs. I offered a prescription for Butler or Tramadol, patient has an intolerance to codeine. She states that it makes her sick. She does not want to try Butler or Tramadol because of this. Discharge instructions and return precautions provided. Diagnostic Imaging Diagonstic Imaging: CT Plain Films/CT/US/NM/MRI: abdomen, pelvis Comments [facility] [facility] [place], [place] NAME: FAN [place] [facility] REC#: [id number] PT STATUS: REG ER : 1955 PHYSICIAN: BELLA MARSHALL INVENTORY TAKER ADMIT DATE: 04/15/23/ER Signed Date of Exam:04/15/23 CT ABDOMEN/PELVIS W PROCEDURE: CT abdomen and pelvis with contrast. TECHNIQUE: Multiple contiguous axial images were obtained through the abdomen and pelvis after administration of intravenous contrast. Auto Exposure Controls were utilized during the CT exam to meet ALARA standards for radiation dose reduction. All CT scans use one or more of the following dose optimizing techniques: automated exposure control, MA and/or KvP adjustment based on patient size and exam type or iterative reconstruction. INDICATION: Left-sided abdominal pain. COMPARISON: 10/27/2016. DISCUSSION: Some atelectasis noted within the lung bases. Normal heart size. No pleural or pericardial fluid. Fatty hepatomegaly is noted. No discrete liver mass. The gallbladder is surgically absent. The pancreas, stomach, spleen, and adrenal glands are unremarkable. There is left hydronephrosis and hydroureter with mild inflammatory changes present. Unfortunately, the bladder base and the left ureterovesical junction are obscured due to beam hardening artifact from bilateral hip prostheses. There is concern that a distal ureterovesical stone is missed due to this artifact. Uterus is unremarkable. The large and small bowel loops appear within normal limits. No ascites or adenopathy. Dextroscoliosis is noted of the thoracolumbar spine. No acute osseous abnormality. Advanced degenerative disease noted within the lumbar spine. IMPRESSION: 1. There is left hydronephrosis and hydroureter with mild inflammatory changes present. However, the left ureterovesical junction is obscured due to significant artifact from bilateral hip prostheses. Given the upstream hydronephrosis, there is concern for an obstructing stone in this obscured region. Dictated by: Dictated on workstation # [id number] Dict: 04/15/23 1356 Trans: 04/15/23 1535 [id number] Interpreted by: BHAVANA TOURE MD Electronically signed by: BHAVANA TOURE MD 04/15/23 1535 Diagonstic Imaging: Xray Plain Films/CT/US/NM/MRI: abdomen Comments [facility] [place], [place] NAME: FAN [place] [facility] REC#: [id number] PT STATUS: REG ER : 1955 PHYSICIAN: BELLA MARSHALL APRN ADMIT DATE: 04/15/23/ER Signed Date of Exam:04/15/23 ABDOMEN/KUB 1VIEW INDICATION: Flank pain. COMPARISON: CT same day. DISCUSSION: Two views of the abdomen and pelvis were obtained. Extensive vascular calcifications are present which limit evaluation of the pelvic soft tissues. There is no dominant stone identified within the left adnexa to confirm the presence of a ureterovesical stone which was questioned on the CT. Gallbladder is surgically absent. Mild dextroscoliosis of the lumbar spine. Unremarkable bowel gas pattern. IMPRESSION: No obvious stone identified within the left ureterovesical junction by plain film. Dictated by: Dictated on workstation # [id number] Dict: 04/15/23 1445 Trans: 04/15/23 1536 [id number] Interpreted by: BHAVANA TOURE MD Electronically signed by: BHAVANA TOURE MD 04/15/23 1536 Departure Impression Primary Impression: Abdominal pain Qualified Codes: R10.32 - Left lower quadrant pain Additional Impressions: Urinary tract infection Hydronephrosis Hydroureter Disposition: 01 HOME, SELF-CARE Condition: Stable Departure-Patient Inst. Decision time for Depature: 15:22 Referrals: MADINA MCCARTY DO (PCP/Family) Primary Care Physician Patient Instructions: Renal Colic (DC) Add. Discharge Instructions: Complete full course of antibiotic as directed. You may take 1000 mg of Tylenol every 8 hours as needed for pain. Follow-up with your primary care provider this week. Return if this pain returns, you develop a fever, you have recurrent vomiting, or any other new, concerning, or worsening symptoms. All discharge instructions reviewed with patient and/or family. Voiced understanding. Scripts Sulfamethoxazole/Trimethoprim (Bactrim Ds Tablet) 1 Each Tablet 1 EACH PO BID for 7 Days, #14 TAB 0 Refills Prov: BELLA MARSHALL APRN 04/15/23 BELLA MARSHALL APRN Apr 15, 2023 13:38
[2023-04-15] MEDS ORDERED: NS 100 ML (IVPB) BAG IV ONE (13:45)
[2023-04-15] MEDS ORDERED: IOHEXOL 350 MG/ML 100 ML (OMNIPAQUE 350) VIAL IV ONE (13:45)
[2023-04-15] MEDS ORDERED: HOLD METFORMIN - RECEIVED CONTRAST 20 ML VIAL IV SCH (13:45)
[2023-04-15 14:10] LABS: POTASSIUM 3.5 MMOL/L (3.6-5.0)
[2023-04-15 14:13] LABS: TOTAL PROTEIN 8.4 GM/DL (6.4-8.2)
[2023-04-15 14:14] LABS: BILIRUBIN,TOTAL 0.4 MG/DL (0.1-1.0)
[2023-04-15 14:16] LABS: CREATININE SERUM 1.36 MG/DL (0.60-1.30)
--- NOTE | 2023-04-15 14:25 | Diagnostic Imaging Report ---
PROCEDURE: CT abdomen and pelvis with contrast. TECHNIQUE: Multiple contiguous axial images were obtained through the abdomen and pelvis after administration of intravenous contrast. Auto Exposure Controls were utilized during the CT exam to meet ALARA standards for radiation dose reduction. All CT scans use one or more of the following dose optimizing techniques: automated exposure control, MA and/or KvP adjustment based on patient size and exam type or iterative reconstruction. INDICATION: Left-sided abdominal pain. COMPARISON: 10/27/2016. DISCUSSION: Some atelectasis noted within the lung bases. Normal heart size. No pleural or pericardial fluid. Fatty hepatomegaly is noted. No discrete liver mass. The gallbladder is surgically absent. The pancreas, stomach, spleen, and adrenal glands are unremarkable. There is left hydronephrosis and hydroureter with mild inflammatory changes present. Unfortunately, the bladder base and the left ureterovesical junction are obscured due to beam hardening artifact from bilateral hip prostheses. There is concern that a distal ureterovesical stone is missed due to this artifact. Uterus is unremarkable. The large and small bowel loops appear within normal limits. No ascites or adenopathy. Dextroscoliosis is noted of the thoracolumbar spine. No acute osseous abnormality. Advanced degenerative disease noted within the lumbar spine. IMPRESSION: 1. There is left hydronephrosis and hydroureter with mild inflammatory changes present. However, the left ureterovesical junction is obscured due to significant artifact from bilateral hip prostheses. Given the upstream hydronephrosis, there is concern for an obstructing stone in this obscured region. Dictated by: Dictated on workstation # [id number]
[2023-04-15 14:27] LABS: BILIRUBIN,URINE NEGATIVE (NEGATIVE); CLARITY,URINE CLEAR; COLOR,URINE YELLOW; GLUCOSE, URINE (UA) 3+ (NEGATIVE); KETONES,URINE NEGATIVE (NEGATIVE); LEUKOCYTE ESTERASE ,URINE TRACE (NEGATIVE); NITRITE,URINE NEGATIVE (NEGATIVE); PH,URINE 5.5 (5-9); PROTEIN,URINE NEGATIVE (NEGATIVE)
[2023-04-15] MEDS ORDERED: NS IV 1000 ML 1,000 ML IV SCH (14:30)
[2023-04-15 14:39] LABS: BACTERIA,URINE LARGE /HPF
--- NOTE | 2023-04-15 14:48 | Diagnostic Imaging Report ---
INDICATION: Flank pain. COMPARISON: CT same day. DISCUSSION: Two views of the abdomen and pelvis were obtained. Extensive vascular calcifications are present which limit evaluation of the pelvic soft tissues. There is no dominant stone identified within the left adnexa to confirm the presence of a ureterovesical stone which was questioned on the CT. Gallbladder is surgically absent. Mild dextroscoliosis of the lumbar spine. Unremarkable bowel gas pattern. IMPRESSION: No obvious stone identified within the left ureterovesical junction by plain film. Dictated by: Dictated on workstation # [id number]
[2023-04-15] MEDS ORDERED: SULF1TAB38 PO (15:27)
[2023-04-15 15:40] VITALS: BP 146/67
== END 2023-04-15 15:40 | disposition home or self-care (01) ==
LOC: EDUNIT# 13:07 → ER 13:09
DX: N39.0 Urinary tract infection, site not specified (principal); N13.30 Unspecified hydronephrosis; N13.4 Hydroureter; E11.42 Type 2 diabetes mellitus with diabetic polyneuropathy; E87.6 Hypokalemia; D72.828 Other elevated white blood cell count; R94.4 Abnormal results of kidney function studies; Z87.891 Personal history of nicotine dependence; Z79.4 Long term (current) use of insulin
CPT/HCPCS: 36415; 74018; 74177; 80053; 81000; 83690; 85025; 87077; 87088

== ENCOUNTER → 2023-05-01 | Outpatient (CLI) | payer MEDICARE, MEDICAID ==
[~2023-05-01] MED LIST changes: +SULF1TAB38 PO
[2023-05-01 08:03] LABS: ALBUMIN 3.6 GM/DL (3.2-4.5); BILIRUBIN,TOTAL 0.4 MG/DL (0.1-1.0); CALCIUM 9.7 MG/DL (8.5-10.1); CREATININE SERUM 1.19 MG/DL (0.60-1.30); POTASSIUM 3.7 MMOL/L (3.6-5.0)
== END ==
LOC: LAB 07:18
PROVIDERS: ATTEND Internal Medicine
DX: Z13.6 Encounter for screening for cardiovascular disorders (principal); E11.65 Type 2 diabetes mellitus with hyperglycemia; E03.9 Hypothyroidism, unspecified; E55.9 Vitamin D deficiency, unspecified; I10 Essential (primary) hypertension
CPT/HCPCS: 36415; 80053; 82043; 82306; 82465; 83036; 84439; 84443; 84478

== ENCOUNTER → 2023-08-02 | Outpatient (CLI) | payer MEDICARE, MEDICAID ==
[~2023-08-02] MED LIST changes: -INSU100I48 SC; +INSU100I64 SC; -MECL-149 PO; +MECL-291 PO
--- NOTE | 2023-08-02 17:11 | Diagnostic Imaging Report ---
3-D unilateral screening right mammogram was performed with CAD. COMPARISON: This study was compared to the prior exams of 07/31/2022, 07/28/2021 and 02/24/2020. There are no current complaints. The patient has had a prior left mastectomy for carcinoma. FINDINGS: There are scattered fibroglandular densities in the right breast which could obscure a lesion. When compared to the prior study, there has been no significant change. There is no primary or secondary sign of malignancy noted. IMPRESSION: There is no evidence for malignancy. ACR BI-RADS Category 1: Negative. Result letter will be mailed to the patient. Note: At least 10% of breast cancer is not imaged by mammography. Dictated by: Dictated on workstation # [id number]
== END ==
LOC: CANPRECLI → RAD 14:13
PROVIDERS: ATTEND Internal Medicine Hematology & Oncology
DX: Z12.31 Encounter for screening mammogram for malignant neoplasm of breast (principal)
CPT/HCPCS: 77063

== ENCOUNTER 2023-08-13 16:47 | Emergency (ER) | payer MEDICARE, MEDICAID ==
[~2023-08-13] VITALS: Ht 172.7 cm; Wt 111.1 kg
--- NOTE | 2023-08-13 17:15 | ED Abdominal Pain ---
General Chief Complaint: Abdominal/GI Problems Stated Complaint: PAIN IN LT SIDE TORSO Nursing Triage Note: PT ARRIVED POV WITH CC OF LEFT FLANK PAIN. PT STATES THAT SYMPTOMS STARTED THIS MORNING. HX OF KIDNEY STONES. (YANG ADAMSON DO) History of Present Illness Date Seen by Provider: Aug 13, 2023 Time Seen by Provider: 17:13 Initial Comments 68-year-old female presents with left flank pain. She reports that the symptoms started this morning. Patient reports she had some labs drawn for Dr. Mccarty for just some normal routine follow-up, she went home in a little while after that she developed some flank pain. She does report she has a history of kidney stones and that this is a similar pain. (YANG ADAMSON DO) Allergies and Home Medications Allergies Coded Allergies: chlorhexidine (Verified Allergy, Unknown, 02/06/18) codeine (Unverified Allergy, Unknown, Nausea, 06/05/21) scopolamine (Verified Allergy, Unknown, 02/06/18) Patient Home Medication List Home Medication List Reviewed: Yes (YANG ADAMSON DO) Acetaminophen (Acetaminophen) 500 Mg Tablet, 1,000 MG PO Q6H PRN for PAIN-MILD (1-4), (Reported) Entered as Reported by: LIT HELM on 03/28/23 1508 Amlodipine Besylate (Amlodipine Besylate) 10 Mg Tablet, 10 MG PO HS, (Reported) Entered as Reported by: LIT HELM on 03/28/23 1508 Ascorbic Acid/Ascorbate Sodium (Vitamin C 500 mg Tablet Chew) 500 Mg Tab.chew, 500 MG PO 1500, (Reported) Entered as Reported by: CECY BARBOSA on 07/26/22 1000 Aspirin (Aspirin EC) 81 Mg Tablet.dr, 81 MG PO DAILY, (Reported) Entered as Reported by: JESSICA SANDOVAL on 02/06/18 0749 Atorvastatin Calcium (Atorvastatin Calcium) 40 Mg Tablet, 40 MG PO HS, (Reported) Entered as Reported by: LIT HELM on 10/20/20 1057 Cetirizine HCl (Cetirizine HCl) 10 Mg Tablet, 10 MG PO DAILY, (Reported) Entered as Reported by: CECY BARBOSA on 07/26/22 1000 Cholecalciferol (Vitamin D3) (D3-2000) 50 Mcg (2000 Unit) Capsule, 50 MCG PO 1500, (Reported) Entered as Reported by: LIT HELM on 10/20/20 105 Clopidogrel Bisulfate (Clopidogrel) 75 Mg Tablet, 75 MG PO DAILY, (Reported) Entered as Reported by: LIT HELM on 03/28/23 1508 Cyanocobalamin (Vitamin B-12) (Vitamin B-12) 1,000 Mcg Tablet, 1,000 MCG PO DAILY, (Reported) Entered as Reported by: LIT HELM on 03/28/23 1515 Dulaglutide (Trulicity) 1.5 Mg/0.5 Ml Pen.injctr, 1.5 MG SC WED, (Reported) Entered as Reported by: LIT HELM on 10/20/20 105 Duloxetine HCl (Duloxetine HCl) 30 Mg Capsule.dr, 30 MG PO HS, (Reported) Entered as Reported by: CECY BARBOSA on 07/26/22 1000 Empagliflozin (Jardiance) 10 Mg Tablet, 10 MG PO DAILY, (Reported) Entered as Reported by: CECY BARBOSA on 07/26/22 1000 Fenofibrate Nanocrystallized (Fenofibrate) 48 Mg Tablet, 48 MG PO HS, (Reported) Entered as Reported by: CECY BARBOSA on 07/26/22 1000 Folic Acid (Folic Acid) 0.8 Mg Tablet, 0.8 MG PO 1500, (Reported) Entered as Reported by: JESSICA SANDVOAL on 02/06/18 0749 Furosemide (Furosemide) 40 Mg Tablet, 40 MG PO DAILY, (Reported) Entered as Reported by: CECY BARBOSA on 07/26/22 1000 Gabapentin (Gabapentin) 600 Mg Tablet, 600 MG PO 1500, (Reported) Entered as Reported by: LIT HELM on 03/28/23 150 Insulin Glargine,Hum.rec.anlog (Lantus Solostar) 100 Unit/Ml (3 Ml) Insuln.pen, 49 UNITS SC BID, (Reported) Entered as Reported by: LIT HELM on 03/28/23 150 Insulin Lispro (Insulin Lispro Kwikpen U-100) 100 Unit/Ml Insuln.pen, 20 UNITS SC AC, (Reported) Entered as Reported by: LIT HELM on 03/28/23 150 Letrozole (Letrozole) 2.5 Mg Tablet, 2.5 MG PO HS, (Reported) Entered as Reported by: DIVINA NEVILLE on 08/03/16 1341 Magnesium Oxide (Magnesium Oxide) 400 Mg Tablet, 400 MG PO TID, (Reported) Entered as Reported by: DEON MUNOZ on 07/26/18 1138 Metoprolol Tartrate (Metoprolol Tartrate) 25 Mg Tablet, 25 MG PO BID, (Reported) Entered as Reported by: JESSICA SANDOVAL on 02/06/18 0749 Montelukast Sodium (Montelukast Sodium) 10 Mg Tablet, 10 MG PO DAILY, (Reported) Entered as Reported by: CECY BARBOSA on 07/26/22 1000 [place]-3 Fatty Acids/Fish Oil (Fish Oil 1,200 mg Softgel) 1 Each Capsule, 1 EACH PO TID, (Reported) Entered as Reported by: LIT HELM on 10/20/20 1057 Oxybutynin Chloride (Oxybutynin Chloride) 5 Mg Tablet, 5 MG PO BID, (Reported) Entered as Reported by: LIT HELM on 03/28/23 1508 Pantoprazole Sodium (Pantoprazole Sodium) 40 Mg Tablet.dr, 40 MG PO DAILY, (Reported) Entered as Reported by: LIT EHLM on 10/20/20 1057 Sulfamethoxazole/Trimethoprim (Bactrim Ds Tablet) 1 Each Tablet, 1 EACH PO BID Prescribed by: Bella Armas on 04/15/23 1527 Review of Systems Review of Systems Constitutional: No chills, No fever Gastrointestinal: See HPI Genitourinary: See HPI, Flank Pain Musculoskeletal: no symptoms reported Skin: no symptoms reported Psychiatric/Neurological: No Symptoms Reported Endocrine: No Symptoms Reported Hematologic/Lymphatic: No Symptoms Reported (YANG ADAMSON DO) Past Rtjmxtq-Kicxkd-Snptwx Hx Patient Social History Tobacco Use?: No Substance use?: No Alcohol Use?: No (YANG ADAMSON DO) Immunizations Up To Date Tetanus Booster (TDap): More than 5yrs First/Initial COVID19 Vaccinat: 2020 Second COVID19 Vaccination Avery: 2020 Third COVID19 Vaccination Date: 2020 (YANG ADAMSON DO) Seasonal Allergies Seasonal Allergies: No (YANG ADAMSON DO) Past Medical History Surgery/Hospitalization HX: HEART STENTS, DM, MASTECTOMY L, GB, TUBAL, HIP REPLACEMENT BILAT, CARPAL TUNNEL BILATERALLY. HTN, ELEVATED CHOLESTEROL. Surgeries: Yes (LEFT BREAST MASTECTOMY, 6 LYMPH NODE REMOVED,BILAT CTR, L ULNAR NERVE, PORT) Coronary Stent, Gallbladder, Joint Replacement, Tubal Ligation Respiratory: No Sleep Apnea Cardiac: Yes (NONSTEMI) Coronary Artery Disease, High Cholesterol, Hypertension Neurological: Yes (PERIPHERAL NEUROPATHY-FEET) Neuropathy Reproductive Disorders: No Female Reproductive Disorders: Denies Sexually Transmitted Disease: No HIV/AIDS: No Genitourinary: Yes (CHRONIC RENAL INSUFFICIENCY) Bladder Infection, Kidney Stones, Renal Failure Gastrointestinal: No (S/P JENNIFER) Gastroesophageal Reflux Musculoskeletal: Yes Arthritis, Chronic Back Pain Endocrine: Yes Diabetes, Insulin dep HEENT: No Loss of Vision: Bilateral Hearing Impairment: Denies Cancer: Yes (LEFT BREAST CA, LYMPH NODES) Breast Did You Recieve Any Treatments: Yes What Type of Treatment Did You: Chemotherapy, Radiation, Surgical Intervention Psychosocial: No Integumentary: No Blood Disorders: Yes (ANEMIA) Adverse Reaction/Blood Tranf: No (N/A) (YANG ADAMSON DO) Family Medical History Asthma G8 SISTER Cardiovascular disease 19 FATHER Diabetes mellitus G8 SISTER FH: breast cancer SISTER FH: leukemia 19 MOTHER, , Age:52 Psychosocial problem G8 SISTER No Family History of: AIDS Abdominal aortic aneurysm Osorio's disease Alcoholism Alzheimer's disease Arthritis Cancer of mouth Colon cancer Completed stroke Dementia Drug abuse Kidney disease Myocardial infarction Parkinson's disease Prostate cancer Respiratory disorder Seizure disorder Severe allergy Thyroid disease Tuberculosis No Pertinent Family Hx (YANG ADAMSON DO) Physical Exam Vital Signs Vital Signs - First Documented 08/13/23 17:00 Temp 37.8 Pulse 85 B/P (MAP) 183/77 (112) Pulse Ox 90 O2 Delivery Room Air (JENI ABURTO DO) Vital Signs Capillary Refill : (YANG ADAMSON DO) Height/Weight/BMI Height: 5'9.00" Weight: 230lbs. 0.0oz. [id number]; 37.00 BMI Method:Stated General Appearance: WD/WN, no apparent distress Respiratory: lungs clear, normal breath sounds Cardiovascular: normal peripheral pulses, regular rate, rhythm Gastrointestinal: soft; No guarding, No rebound Back: CVA tenderness (L) Neurologic/Psychiatric: alert, normal mood/affect, oriented x 3 (ADAMSONYANG Rashawn BACH) Procedures/Interventions Date of ETT Placement: Nov 01, 2020 Time of ETT Placement: 624 (JUAN DIEGOYANG L DO) Progress/Results/Core Measures Results/Orders Lab Results Laboratory Tests Test 08/13/23 18:45 Range/Units Urine Color YELLOW Urine Clarity CLEAR Urine pH 6.5 5-9 Urine Specific [place] 1.015 L 1.016-1.022 Urine Protein 1+ H NEGATIVE Urine Glucose (UA) 3+ H NEGATIVE Urine Ketones TRACE H NEGATIVE Urine Nitrite POSITIVE H NEGATIVE Urine Bilirubin NEGATIVE NEGATIVE Urine Urobilinogen 0.2 < = 1.0 MG/DL Urine Leukocyte Esterase 1+ H NEGATIVE Urine RBC (Auto) 3+ H NEGATIVE Urine RBC 10-25 H /HPF Urine WBC 50-100 H /HPF Urine Squamous Epithelial Cells NONE /HPF Urine Crystals NONE /LPF Urine Bacteria LARGE H /HPF Urine Casts NONE /LPF Urine Mucus NEGATIVE /LPF Urine Other TRANS EPI RARE /HPF Urine Culture Indicated YES (JENI ABURTO DO) My Orders Orders - JENI ABURTO DO Cephalexin Capsule (Cephalexin Capsule) (08/13/23 19:30) (JENI ABURTO DO) Vital Signs/I&O 08/13/23 17:00 Temp 37.8 Pulse 85 B/P (MAP) 183/77 (112) Pulse Ox 90 O2 Delivery Room Air (JENI ABURTO DO) Blood Pressure Mean: 112 Departure Communication (Admissions) Patient is hemodynamically stable. No evidence for septic type infection. CT scan shows possible pyelonephritis, possible recently passed kidney stone but no acute kidney stone or obstruction at this time renal function is normal. We will go ahead and give her p.o. Cipro for complicated UTI, pyelonephritis. She is afebrile and nontoxic and I think she is safe for discharge home and outpatient treatment at this time with strict return precautions. The remainder of her exam, vital signs and labs are reassuring she be discharged home in stable condition (JENI ABURTO DO) Impression Primary Impression: UTI (urinary tract infection) Qualified Codes: N10 - Acute pyelonephritis Additional Impression: Left flank pain Disposition: HOME, SELF-CARE Condition: Stable Departure-Patient Inst. Referrals: MADINA MCCARTY DO (PCP/Family) Primary Care Physician Patient Instructions: Flank Pain ED, Kidney Infection Add. Discharge Instructions: Your CT scan shows no evidence for recurrent kidney stone but might show evidence for recently passed kidney stone. You do have an infection in your urine so we will go ahead and give you antibiotics. The first dose has been given to you here and you should take the antibiotics as prescribed until gone by picking up at your pharmacy tomorrow increase your fluids at home and rest as needed. Return to the emergency department for any severe concerns. Follow-up with your primary doctor for any nonemergent needs All discharge instructions reviewed with patient and/or family. Voiced understanding. Scripts Ciprofloxacin HCl (Ciprofloxacin HCl) 500 Mg Tablet 500 MG PO BID for 7 Days, #14 TAB Prov: JENI ABURTO DO 08/13/23 YANG ADAMSON DO Aug 13, 2023 17:15 JENI ABURTO DO Aug 13, 2023 19:19
--- NOTE | 2023-08-13 18:06 | Diagnostic Imaging Report ---
PROCEDURE: CT urinary tract, rule out kidney stone. TECHNIQUE: Multiple contiguous axial images were obtained through the abdomen and pelvis without the use of intravenous contrast. Auto Exposure Controls were utilized during the CT exam to meet ALARA standards for radiation dose reduction. INDICATION: Flank pain, left COMPARISON: 04/15/2023 Unenhanced images of liver, pancreas, adrenal glands and spleen are unremarkable. Unenhanced images of the right kidney is also stable and unremarkable. There is punctate calcification in the upper pole of the left kidney. Otherwise, there is mild left hydronephrosis without evidence of ureteric stone. There has been mild increase in left perinephric edema or inflammation. There is no significant free fluid in the abdomen or pelvis. There is fluid distention of small bowel. No organized fluid collections identified. There is no evidence of bladder stone. Artifact again obscures the pelvis related to bilateral hip prostheses. IMPRESSION: Nonobstructing left nephrolithiasis, however, there is mild left hydronephrosis and increasing left perinephric edema or inflammation. Possibility of recently passed stone is not excluded. Dictated by: Dictated on workstation # [id number]
[2023-08-13 19:07] LABS: BACTERIA,URINE LARGE /HPF; BILIRUBIN,URINE NEGATIVE (NEGATIVE); CLARITY,URINE CLEAR; COLOR,URINE YELLOW; GLUCOSE, URINE (UA) 3+ (NEGATIVE); KETONES,URINE TRACE (NEGATIVE); LEUKOCYTE ESTERASE ,URINE 1+ (NEGATIVE); NITRITE,URINE POSITIVE (NEGATIVE); PH,URINE 6.5 (5-9); PROTEIN,URINE 1+ (NEGATIVE)
[2023-08-13 19:08] LABS: URINE OTHER TRANS EPI RARE /HPF; WBC,URINE 50-100 /HPF
[2023-08-13] MEDS ORDERED: CIPR500T5 PO (19:23)
[2023-08-13] MEDS ORDERED: CEPHALEXIN 250 MG CAPSULE PO SCH (19:30)
[2023-08-13] MEDS ORDERED: CIPROFLOXACIN 500 MG TABLET PO SCH (19:30)
[2023-08-13 20:09] VITALS: BP 118/55
[2023-08-13] MEDS ORDERED: ONDANSETRON 4 MG ORAL DISSOLVE TABLET ONE ×2 (20:14→20:24)
[2023-08-13] MEDS ORDERED: RX-ONDANSETRON 4 MG ODT (ZOFRAN) PPK #4 PO ONE (20:30)
== END 2023-08-13 20:09 | disposition home or self-care (01) ==
LOC: EDUNIT# 16:47 → ER 16:49
DX: N39.0 Urinary tract infection, site not specified (principal); Z87.442 Personal history of urinary calculi
CPT/HCPCS: 74176; 81000; 87077; 87088; 87186

== ENCOUNTER → 2023-08-13 | Outpatient (CLI) | payer MEDICARE, MEDICAID ==
[2023-08-13 09:14] LABS: ALBUMIN 3.8 GM/DL (3.2-4.5); POTASSIUM 3.6 MMOL/L (3.6-5.0)
[2023-08-13 09:15] LABS: CALCIUM 9.9 MG/DL (8.5-10.1)
[2023-08-13 09:17] LABS: TOTAL PROTEIN 8.1 GM/DL (6.4-8.2)
[2023-08-13 09:18] LABS: BILIRUBIN,TOTAL 0.4 MG/DL (0.1-1.0)
[2023-08-13 09:20] LABS: CREATININE SERUM 1.43 MG/DL (0.60-1.30)
== END ==
LOC: LAB 08:48
PROVIDERS: ATTEND Internal Medicine
DX: Z13.6 Encounter for screening for cardiovascular disorders (principal); E11.65 Type 2 diabetes mellitus with hyperglycemia; E03.9 Hypothyroidism, unspecified; E55.9 Vitamin D deficiency, unspecified; I10 Essential (primary) hypertension
CPT/HCPCS: 36415; 80053; 82306; 82465; 83036; 84439; 84443; 84478

== ENCOUNTER 2023-09-25 14:36 | Outpatient (CLI) | payer MEDICARE, MEDICAID ==
[~2023-09-25] VITALS: Ht 172.7 cm; Wt 111.4 kg
[~2023-09-25 14:36] MED LIST changes: -OXYB5TAB13 PO; +OXYB5TAB14 PO
== END 2023-09-26 10:48 | disposition home or self-care (01) ==
LOC: PREOP 14:36
PROVIDERS: ATTEND Specialist
DX: Z01.818 Encounter for other preprocedural examination (principal)

== ENCOUNTER 2023-09-28 06:22 | Day surgery (SDC) | payer MEDICARE, MEDICAID ==
[~2023-09-28] VITALS: Ht 172.7 cm; Wt 111.4 kg
[2023-09-28] MEDS ORDERED: TIMOLOL 0.5% (CATARACTS) 0.3 ML BTL OU PRN (06:45)
[2023-09-28] MEDS ORDERED: POVIDONE IODINE OPHTH SOLN 5% 30 ML OP ONE (06:45)
[2023-09-28] MEDS ORDERED: LIDOCAINE PF 1% 2 ML VIAL IR PRN (06:45)
[2023-09-28] MEDS ORDERED: MOXIFLOXACIN OPHTH SOLN 5 MG/ML 0.5 ML SYRINGE OP ONE (06:45)
[2023-09-28] MEDS: TETRACAINE 0.5% OPHTH SOLN 5 ML BTL OU PRN ×4 (06:50→07:20)
[2023-09-28] MEDS: PHENYLEPHRINE 10% OPHTH SOLN 5 ML BTL OU SCH ×3 (07:06→07:20)
[2023-09-28] MEDS: TROPICAMIDE 1% OPH SOLN (MYDRIACYL) 15 ML BTL OP SCH ×3 (07:06→07:20)
[2023-09-28 07:14] VITALS: BP 145/66
[2023-09-28] MEDS ORDERED: MIDAZOLAM INJ 2 MG/2 ML VIAL ONE (07:15)
--- NOTE | 2023-09-28 07:25 | Ophthalmologist Pre-Op Note ---
Pre-Operative Progress Note H&P Reviewed The H&P was reviewed, patient examined and no changes noted. Date H&P Reviewed: Sep 28, 2023 Time H&P Reviewed: 07:24 Pre-Op Dx Cataract, Left Eye SHARON HAYDEN MD Sep 28, 2023 07:25
--- NOTE | 2023-09-28 07:44 | Ophthalmology Operative Report ---
Cataract removal/placement IOL PREOPERATIVE DIAGNOSIS: Cataract Left Eye POSTOPERATIVE DIAGNOSIS: Cataract Left Eye PROCEDURE: Cataract removal and placement of posterior chamber implant, left eye SURGEON: Jayro Hayden ANESTHESIA: Topical with sedation COMPLICATIONS: None ESTIMATED BLOOD LOSS: Minimal DESCRIPTION OF PROCEDURE: After proper informed consent was obtained, the patient, a 68 female, was taken to the Operating Room and the left eye was anesthetized with tetracaine. The left eye was then prepped and draped in the usual manner. A wire lid speculum was placed. A paracentesis was made at the left hand position. Preservative free lidocaine was injected into the anterior chamber followed by viscoelastic. A clear corneal incision was made in the temporal position. A capsulorrhexis was preformed and the central nuclear and cortical material were removed. The posterior capsule was polished and an Scooter 24.0 [id number] was placed into the capsular bag. The residual viscoelastic was aspirated and balanced saline solution was injected into the anterior chamber. Moxifloxacin was injected into the anterior chamber. The wound was checked and found to be water tight. The patient tolerated the procedure well without complications. JAYRO HAYDEN MD Sep 28, 2023 07:44
[2023-09-28 07:52] VITALS: BP 157/76
--- NOTE | 2023-09-28 12:41 | Anesthesia-General Post-Op ---
MAC Patient Condition Mental Status/LOC: Same as Preop Cardiovascular: Satisfactory Nausea/Vomiting: Absent Respiratory: Satisfactory Pain: Controlled Complications: Absent Post Op Complications Complications None Follow Up Care/Instructions Patient Instructions None needed. Anesthesiology Discharge Order Discharge Order Patient was doing well after the procedure with no complaints, stable vital signs, no apparent adverse anesthesia problems. No complications reported per nursing. ABRAHAN CHAVEZ DO Sep 28, 2023 12:41
== END 2023-09-28 07:54 | disposition home or self-care (01) ==
LOC: SDC 06:22
PROVIDERS: ATTEND Specialist
DX: E11.36 Type 2 diabetes mellitus with diabetic cataract (principal); H25.9 Unspecified age-related cataract; Z87.891 Personal history of nicotine dependence; Z79.4 Long term (current) use of insulin; Z79.84 Long term (current) use of oral hypoglycemic drugs; Z79.85 Long-term (current) use of injectable non-insulin antidiabetic drugs; E66.01 Morbid (severe) obesity due to excess calories; Z95.5 Presence of coronary angioplasty implant and graft; Z68.37 Body mass index [BMI] 37.0-37.9, adult